=== PATIENT | male | born 1940 | race Caucasian/White ===

== ENCOUNTER 2023-03-14 11:21 | Inpatient (IN) | payer OTHER, SELFPAY ==
[2023-03-14] VITALS (22 sets, daily range): BP systolic 106–123; BP diastolic 63–74; PULSE 62–88; RESP 14–26; TEMP 35–36.6; O2SAT 92–99; BMI 22.1; BMI 21.4
--- NOTE | 2023-03-14 11:58 | ECG_ITS ---
The 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
--- NOTE | 2023-03-14 11:59 | XR_ITS ---
The [address] [address] Patient Name: JULIETTE MORROW MRN: [id number] date: 1940 Sex: M Assigned Patient Location: ER Current Patient Location: ER Accession/Order Number: [id number] Exam Date: 03/14/2023 12:17 Report Date: 03/14/2023 12:54 At the request of: TREMAYNE BECKHAM Procedure: XR acute abdomen series EXAMINATION: XR acute abdomen series HISTORY: abd pain, hx of obst COMPARISON: No relevant comparison available. FINDINGS: LUNGS: No infiltrate, pneumothorax, or pleural effusion. MEDIASTINUM: No abnormal widening. BOWEL GAS PATTERN: Moderate gaseous distention of small bowel loops which measure up to 6.4 cm. Air-fluid levels identified in multiple small bowel loops. There is a paucity of air in the sigmoid colon and rectum FREE AIR: None. CALCIFICATIONS: None significant. BONES: Moderate degenerative changes of the spine and hips OTHER: Negative. IMPRESSION: Clear lungs Findings suggesting a small bowel obstruction Electronically authenticated by: SHAHZAD DAURTE Date: 03/14/2023 12:54
--- NOTE | 2023-03-14 12:03 | ED_ITS ---
HPI - General Adult General Chief complaint: Nausea/Vomiting/Diarrhea Stated complaint: DEHYDRATION Time Seen by Provider: 03/14/23 11:57 Source: patient and family Mode of arrival: walk-in Limitations: no limitations History of Present Illness HPI narrative: Patient is a 83-year-old male who is presenting to the Emergency Room with chief complaint of one episode of vomiting yesterday but none today. Patient had some mild abdominal pain yesterday, none today. Patient has felt lightheaded, slightly dizzy, no vertigo. [facility]. Patient's daughter is at bedside, she is an Excellent Historian. A few years ago, patient spent 2 months in the [facility] secondary to bowel obstruction and eventual diagnosis of gastroparesis. Patient does not have an ostomy bag. Patient was admitted to [facility] earlier this year for dehydration, vomiting, and patient had NG tube placed. Patient has a history of bowel obstruction, chief concern from patient and daughter is the nausea, vomiting, diarrhea, pain, and concern for bulb suction. Patient's abdomen is currently very soft, no pain. Patient's been having loose stool the last 3 days. Having loose stool intermittently is normal for this patient. Patient is sometimes forgetful with history of dementia, patient's daughter fills in the blanks is a good historian. Patient currently has no headache, no neck pain. No fever or chills. Patient is asymptomatic at this time. Patient was brought into the daughter so that things WORSE like there were several years ago were patient has to be in the hospital for several days. Related Data Home Medications Medication Instructions Recorded Confirmed amiodarone 200 mg tablet 200 mg PO DAILY 03/14/23 03/14/23 atorvastatin 10 mg tablet 10 mg PO QPM 03/14/23 03/14/23 empagliflozin 25 mg tablet 12.5 mg PO DAILY 03/14/23 03/14/23 finasteride 5 mg tablet 5 mg PO DAILY 03/14/23 03/14/23 methazolamide 50 mg tablet 50 mg PO BID 03/14/23 03/14/23 metoprolol succinate 100 mg 100 mg PO DAILY 03/14/23 03/14/23 capsule sprinkle, ext. release 24 hr (Kapspargo Sprinkle) pantoprazole 40 mg tablet,delayed 40 mg PO DAILY 03/14/23 03/14/23 release sacubitril-valsartan PO BID 03/14/23 spironolactone 25 mg tablet 25 mg PO QAM 03/14/23 03/14/23 (Aldactone) tamsulosin 0.4 mg capsule 0.4 mg PO Q24H 03/14/23 03/14/23 warfarin 2.5 mg tablet 2.5 mg PO .COMPLEX 03/14/23 03/14/23 warfarin 5 mg tablet 5 mg PO .COMPLEX 03/14/23 03/14/23 Allergies Allergy/AdvReac Type Severity Reaction Status Date / Time ondansetron [From Zofran] AdvReac Mild Verified 03/14/23 11:44 Review of Systems ROS Narrative All systems are negative except as noted/marked. All systems reviewed and otherwise negative. [facility] Medical History (Updated 03/14/23 @ 15:54 by Kylah Trent) Surgical History (Updated 03/14/23 @ 15:54 by Kylah Trent) Social History Smoking status: Never smoker Gender Identity: male Exam Narrative Exam Narrative: Nurses note and vital signs reviewed and patient is not hypoxic. General: The patient appears well and in no apparent distress. Patient is resting comfortably on cart. Patient is not toxic, lethargic, or listless Skin: Warm, dry, no pallor noted. There is no rash noted. No petechiae, purpura. Head: Normocephalic, atraumatic Eye: Normal conjunctiva, no drainage, EOMI. PERRL, Chronic red eyes, some clear tearing, no signs acute infection, no colored drainage or pus. Ears, Nose, Mouth, and Throat: oral mucosa is Slightly dry. Nares patent. Mouth without vesicles. Cardiovascular: Regular Rate and Rhythm, no murmur, gallop, rub Respiratory: Patient is in no distress, no accessory muscle use, lungs are clear to auscultation, no wheezing, rales or rhonchi Back: non-tender, no CVA tenderness bilaterally to percussion. No CT LS midline pain GI: soft, no tenderness to palpation, no masses appreciated. No rebound, guarding, or rigidity noted. No flank pain bilateral, No distention. Bowel sounds ?4, no flank pain bilateral, abdomen soft, no rebound, rigidity, tympany. Musculoskeletal: Patient has full range of motion of all of the extremities, no motor, sensory, or focal neurological deficits Neurological: A&O x3, normal speech Psychiatric: Cooperative Constitutional Vital Signs - 24 hr 03/14/23 11:37 03/14/23 11:45 03/14/23 11:48 Temperature 95 F L Pulse Rate 71 Pulse Rate [Monitor] 88 Respiratory Rate 14 21 Blood Pressure 109/70 Blood Pressure [Right Arm] 117/74 Pulse Oximetry 98 98 98 Oxygen Delivery Method Room Air 03/14/23 11:48 03/14/23 12:02 03/14/23 12:10 Temperature Pulse Rate 70 80 77 Pulse Rate [Monitor] Respiratory Rate 17 17 26 H Blood Pressure Blood Pressure [Right Arm] Pulse Oximetry 99 98 Oxygen Delivery Method 03/14/23 12:39 03/14/23 12:40 03/14/23 12:50 Temperature Pulse Rate 83 76 80 Pulse Rate [Monitor] Respiratory Rate 14 20 22 Blood Pressure Blood Pressure [Right Arm] Pulse Oximetry Oxygen Delivery Method 03/14/23 13:00 03/14/23 13:10 03/14/23 13:20 Temperature Pulse Rate 73 74 82 Pulse Rate [Monitor] Respiratory Rate 24 20 20 Blood Pressure 116/74 Blood Pressure [Right Arm] Pulse Oximetry Oxygen Delivery Method 03/14/23 13:20 03/14/23 13:24 03/14/23 13:24 Temperature Pulse Rate 70 82 80 Pulse Rate [Monitor] Respiratory Rate 16 23 14 Blood Pressure 123/63 H 123/63 H Blood Pressure [Right Arm] Pulse Oximetry 99 99 Oxygen Delivery Method 03/14/23 13:24 03/14/23 14:16 03/14/23 14:18 Temperature 97.6 F Pulse Rate 72 77 Pulse Rate [Monitor] Respiratory Rate 19 20 Blood Pressure 123/63 H 111/68 Blood Pressure [Right Arm] Pulse Oximetry 99 99 Oxygen Delivery Method Course Vital Signs Vital signs: Vital Signs Temperature 95 F L 03/14/23 11:37 Pulse Rate 88 03/14/23 11:37 Respiratory Rate 14 03/14/23 11:37 Blood Pressure 117/74 03/14/23 11:37 Pulse Oximetry 98 03/14/23 11:37 Oxygen Delivery Method Room Air 03/14/23 11:37 Temperature 97.6 F 03/14/23 15:35 Pulse Rate 71 03/14/23 16:04 Respiratory Rate 18 03/14/23 15:35 Blood Pressure 106/70 03/14/23 15:35 Pulse Oximetry 92 L 03/14/23 15:35 Oxygen Delivery Method Room Air 03/14/23 15:35 Medical Decision Making MDM Narrative Medical decision making narrative: Patient had a sodium 128,, CO2 Level was 16. Patient's urine creatinine was 45 and 1.56. Patient's urine creatinine were elevated in October 2022 as well and a 45?50 range and in the 1.4?2.1 range. Patient does not normally have elevated BUN and creatinine. Patient has no kidney history. Patient has been completely symptomatically entire Emergency Room visit. Patient was given 1 L of IV fluid. Patient was given additional 500 mL of fluid and then 100 mL's per hour. Liam finch's daughter states the patient has been told that he's had congestive heart failure in the past, but this is when he was in the hospital for 2 months and developed congestive heart failure after his bowel obstruction surgery and gastroparesis diagnosis. However, patient has never been admitted to the hospital for congestive heart failure, he's never had any type or complications of congestive heart failure. Patient was given IV fluids. Patient was admitted to Dr. Mascorro. Patient's x- ray was read as possible small bowel obstruction, patient has been passing gas, has loose stool, patient has no signs or clinical symptoms at all of small bowel obstruction. Patient has had previous bowel obstruction, gastroparesis in the past. No acute findings that clinically correlated with patient's x-ray today. Patient has no problem with being admitted to the hospital overnight for IV fluids. Patient has signs of hyponatremia, metabolic acidosis, dehydration, and acute kidney injury. Patient has been drinking orange Gatorade well without difficulty. We have called the [facility], they agreed the patient may be admitted at [facility] and does not need to be transferred to the [facility]. Nava receptionist secretary was on the phone for over an hour talking to multiple different people in the [facility] and patient is permitted to be admitted to [facility] for treatment Lab Data Lab results reviewed: Yes I reviewed the patient's lab results Labs: Lab Results 03/14/23 Range/Units 12:00 WBC 7.7 (4.0-11.0) 10^3/uL RBC 4.85 (4.70-6.10) 10^6/uL Hgb 14.6 (14.0-18.0) g/dL Hct 46.7 (42.0-54.0) % MCV 96.3 H (80.0-94.0) fL MCH 30.1 (25.9-34.0) pg MCHC 31.3 (29.9-35.2) g/dL RDW 15.6 H (11.0-15.0) % Plt Count 166 (150-450) 10^3/uL MPV 10.4 (9.5-13.5) fL Neut % (Auto) 78.3 H (43.0-75.0) % Lymph % (Auto) 9.3 L (20.5-60.0) % [place] % (Auto) 9.1 (1.7-12.0) % Eos % (Auto) 0.8 L (0.9-7.0) % Baso % (Auto) 0.3 (0.2-2.0) % Neut # (Auto) 6.1 (1.4-6.5) 10^3/uL Lymph # (Auto) 0.7 L (1.2-3.8) 10^3/uL [place] # (Auto) 0.7 (0.3-0.8) 10^3/uL Eos # (Auto) 0.1 (0.0-0.7) 10^3/uL Baso # (Auto) 0.0 (0.0-0.1) 10^3/uL Abs Immat Gran (auto) 0.17 H (0.00-0.03) 10^3/uL Imm/Tot Granulo (auto) 2.2 H (0.0-0.5) % PT 65.4 H* (9.0-11.6) sec INR 6.88 H* Sodium 128 L (136-145) mmol/L Potassium 4.8 (3.5-5.1) mmol/L Chloride 100 (98-107) mmol/L Carbon Dioxide 16.2 L (21.0-32.0) mmol/L Anion Gap 16.6 BUN 47.0 H (7.0-18.0) mg/dL Creatinine 1.56 H (0.70-1.30) mg/dL Est GFR ( Amer) 52 L (>=60) Est GFR (Non-Af Amer) 43 L (>=60) BUN/Creatinine Ratio 30.1 Glucose 150 H (74-106) mg/dL Calcium 9.0 (8.5-10.1) mg/dL Magnesium 2.2 (1.8-2.4) mg/dL Total Bilirubin 0.9 (0.2-1.0) mg/dL AST 44 H (15-37) U/L ALT 18 (16-63) U/L Alkaline Phosphatase 118 H (46-116) U/L Troponin I High Sens 4.5 (4.0-76.1) pg/mL Total Protein 8.8 H (6.4-8.2) g/dL Albumin 3.5 (3.4-5.0) g/dL Globulin 5.3 g/dL Albumin/Globulin Ratio 0.7 Lipase 31.0 L (73.0-393.0) U/L ECG Data Attestation: I personally reviewed and interpreted this ECG as follows: Interpretation: EKG interpretation. Irregular irregular rhythm at 76 beats a minute. Left axis deviation. No acute ST elevation, no acute ectopy. QTC of 392. Patient has a history of atrial fibrillation. Discharge Plan Discharge Chief Complaint: Nausea/Vomiting/Diarrhea Clinical Impression: RORY (acute kidney injury), Diarrhea, Hyponatremia, Metabolic acidosis, Dehydration Patient Disposition: Admitted as Observation Time of Disposition Decision: 14:00 Condition: Fair Discharge Date/Time: 03/14/23 14:45
[2023-03-14 12:15] LABS: Basophils Percent Auto 0.3 % (0.2-2.0); Eosinophils Absolute Auto 0.1 10^3/uL (0.0-0.7); Eosinophils Percent Auto 0.8 % (0.9-7.0); Hematocrit 46.7 % (42.0-54.0); Hemoglobin 14.6 g/dL (14.0-18.0); Immature Granulocytes Abs Auto 0.17 10^3/uL (0.00-0.03); Immature Granulocytes Pct Auto 2.2 % (0.0-0.5); Lymphocytes Absolute Auto 0.7 10^3/uL (1.2-3.8); Lymphocytes Percent Auto 9.3 % (20.5-60.0); Mean Corpuscular HGB Conc 31.3 g/dL (29.9-35.2); Mean Corpuscular Hemoglobin 30.1 pg (25.9-34.0); Mean Corpuscular Volume 96.3 fL (80.0-94.0); Mean Platelet Volume 10.4 fL (9.5-13.5); Monocytes Absolute Auto 0.7 10^3/uL (0.3-0.8); Monocytes Percent Auto 9.1 % (1.7-12.0); Neutrophils Absolute Auto 6.1 10^3/uL (1.4-6.5); Neutrophils Percent Auto 78.3 % (43.0-75.0); Platelet Count 166 10^3/uL (150-450); Red Blood Count 4.85 10^6/uL (4.70-6.10); Red Cell Distribution Width 15.6 % (11.0-15.0); White Blood Count 7.7 10^3/uL (4.0-11.0)
[2023-03-14 12:28] LABS: Alanine Aminotransferase 18 U/L (16-63); Albumin Globulin Ratio 0.7; Albumin Level 3.5 g/dL (3.4-5.0); Alkaline Phosphatase 118 U/L (46-116); Anion Gap 16.6; Aspartate Amino Transferase 44 U/L (15-37); BUN Creatinine Ratio 30.1; Bilirubin Total 0.9 mg/dL (0.2-1.0); Carbon Dioxide 16.2 mmol/L (21.0-32.0); Chloride 100 mmol/L (98-107); Estimated GFR (African America 52 (>=60); Estimated GFR (Non-African Ame 43 (>=60); Globulin 5.3 g/dL; Glucose 150 mg/dL (74-106); Magnesium 2.2 mg/dL (1.8-2.4); Potassium 4.8 mmol/L (3.5-5.1); Sodium 128 mmol/L (136-145); Total Protein 8.8 g/dL (6.4-8.2)
[2023-03-14 12:30] LABS: Troponin I High Sensitivity 4.5 pg/mL (4.0-76.1)
[2023-03-14] MEDS: 0.9 % SODIUM CHLORIDE 1,000 ML 1000 ML IV (12:32)
[2023-03-14] MEDS: 0.9 % SODIUM CHLORIDE 1,000 ML 500 ML IV (13:22)
[2023-03-14 15:04] LABS: INR 6.88; Prothrombin Time 65.4 sec (9.0-11.6)
[2023-03-14] MEDS: LACTATED RINGER'S SOLUTION 1,000 ML 100 ML IV (16:17)
[2023-03-14] MEDS: ATORVASTATIN CALCIUM 10 MG TABLET PO (19:36)
[2023-03-14 20:36] LABS: Anion Gap 12.8; BUN Creatinine Ratio 25.6; Calcium 8.2 mg/dL (8.5-10.1); Carbon Dioxide 21.6 mmol/L (21.0-32.0); Chloride 105 mmol/L (98-107); Estimated GFR (African America 50 (>=60); Estimated GFR (Non-African Ame 42 (>=60); Glucose 142 mg/dL (74-106); Potassium 4.4 mmol/L (3.5-5.1); Sodium 135 mmol/L (136-145)
[2023-03-14 20:59] LABS: Glucometer 134 mg/dL (74-106)
[2023-03-15] VITALS (17 sets, daily range): BP systolic 116–130; BP diastolic 74–81; PULSE 58–96; RESP 15–20; TEMP 36.3–36.6; O2SAT 95–100
[2023-03-15] MEDS: LACTATED RINGER'S SOLUTION 1,000 ML 100 ML IV ×2 (02:15→11:30)
[2023-03-15 05:02] LABS: Basophils Percent Auto 0.2 % (0.2-2.0); Eosinophils Absolute Auto 0.1 10^3/uL (0.0-0.7); Eosinophils Percent Auto 2.1 % (0.9-7.0); Hematocrit 42.4 % (42.0-54.0); Hemoglobin 13.2 g/dL (14.0-18.0); Immature Granulocytes Abs Auto 0.02 10^3/uL (0.00-0.03); Immature Granulocytes Pct Auto 0.4 % (0.0-0.5); Lymphocytes Percent Auto 18.8 % (20.5-60.0); Mean Corpuscular HGB Conc 31.1 g/dL (29.9-35.2); Mean Corpuscular Hemoglobin 30.6 pg (25.9-34.0); Mean Corpuscular Volume 98.1 fL (80.0-94.0); Mean Platelet Volume 9.9 fL (9.5-13.5); Monocytes Absolute Auto 0.7 10^3/uL (0.3-0.8); Monocytes Percent Auto 14.1 % (1.7-12.0); Neutrophils Absolute Auto 3.3 10^3/uL (1.4-6.5); Neutrophils Percent Auto 64.4 % (43.0-75.0); Platelet Count 149 10^3/uL (150-450); Red Blood Count 4.32 10^6/uL (4.70-6.10); Red Cell Distribution Width 15.6 % (11.0-15.0); White Blood Count 5.1 10^3/uL (4.0-11.0)
[2023-03-15 05:19] LABS: Alanine Aminotransferase 14 U/L (16-63); Albumin Globulin Ratio 0.6; Albumin Level 2.9 g/dL (3.4-5.0); Alkaline Phosphatase 95 U/L (46-116); Anion Gap 12.8; Aspartate Amino Transferase 18 U/L (15-37); BUN Creatinine Ratio 26.2; Bilirubin Total 0.4 mg/dL (0.2-1.0); Calcium 8.2 mg/dL (8.5-10.1); Carbon Dioxide 20.3 mmol/L (21.0-32.0); Chloride 107 mmol/L (98-107); Estimated GFR (African America 58 (>=60); Estimated GFR (Non-African Ame 48 (>=60); Globulin 4.5 g/dL; Glucose 109 mg/dL (74-106); Potassium 4.1 mmol/L (3.5-5.1); Sodium 136 mmol/L (136-145); Total Protein 7.4 g/dL (6.4-8.2)
[2023-03-15 05:24] LABS: Prothrombin Time 83.1 sec (9.0-11.6)
[2023-03-15 05:25] LABS: INR >8.0
--- NOTE | 2023-03-15 08:08 | XR_ITS ---
The [address] [address] Patient Name: JULIETTE MORROW MRN: [id number] date: 1940 Sex: M Assigned Patient Location: MS Current Patient Location: MS Accession/Order Number: [id number] Exam Date: 03/15/2023 08:35 Report Date: 03/15/2023 14:41 At the request of: MARGOT EDWARDS Procedure: XR acute abdomen series EXAM: XR acute abdomen series HISTORY: Small bowel bowel obstruction COMPARISON: 03/14/2023. TECHNIQUE: Upright frontal chest. Upright and supine views of the abdomen. FINDINGS: Lungs are well-expanded and clear except for probable trace effusions. Normal heart size. No pneumothorax. No acute bony process. No free intraperitoneal air. Prominent gas and air fluid distention of the GI tract is again seen with significant worsening especially with a very large 11 cm loop over the left lower quadrant. Risk for perforation. IMPRESSION: Worsening severe small bowel obstruction with very large loop in the left lower quadrant which may be at risk for perforation although no definite free air seen at this time. Probable minimal effusions at the lung bases but otherwise clear chest. Electronically authenticated by: REBECCA ROMAN Date: 03/15/2023 14:41
[2023-03-15] MEDS: CANAGLIFLOZIN 100 MG TABLET 200 MG PO (08:16)
[2023-03-15] MEDS: AMIODARONE HCL 200 MG TABLET PO (08:16)
[2023-03-15] MEDS: FINASTERIDE 5 MG TABLET PO (08:16)
[2023-03-15] MEDS: TAMSULOSIN HCL 0.4 MG CAPSULE PO (08:17)
[2023-03-15] MEDS: METOPROLOL SUCCINATE 50 MG TAB.ER.24H 100 MG PO (08:17)
[2023-03-15] MEDS: PHYTONADIONE (VIT K1) 10 MG/ML AMPUL 5 MG PO (08:22)
[2023-03-15 11:21] LABS: Glucometer 116 mg/dL (74-106)
--- NOTE | 2023-03-15 12:37 | PM.HP ---
H&P: HPI History of Present Illness Chief complaint: DEHYDRATION Narrative: patient is an 83-year-old male with past medical history of atrial fibrillation on chronic Coumadin therapy, hypertension, benign prostatic hypertrophy, hyperlipidemia, type 2 diabetes who presented to the Emergency Room yesterday with nausea vomiting and some loose bowel movements. He did also been having some abdominal discomfort over the last couple days. He does have a history of small bowel obstructions of which landed him in the hospital in the past for an extended period of time and resulted in surgery. He reports this was many years ago. 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 He follows with a Coumadin clinic at the [facility] for frequent INR checks. He notes that it's been quite a while since his last INR. This morning he denies any current issues says that he's been eating well and denies any abdominal pain, fevers states that he is passing gas and no longer has any nausea or vomiting. His INR on morning labs was found to be 8.0 he denies any acute bleeding such as nosebleeds or any blood in his stool. Review of Systems ROS Narrative ROS: a complete review of systems were reviewed with patient and are positive as below or listed in History of Chief Complaint. General: no fever, chills, night sweats Head: no headache, trauma, visual changes, nausea or vomiting Skin: no reported rashes, itching or sores Eyes: no blurriness of vision Ears: no reported hearing loss, vertigo, earache, or tinnitus Throat: no sore throat, hoarseness, swelling of neck, or tongue pain Heart: no chest pain Lungs: no shortness of breath or cough GI: no diarrhea or vomiting/nausea Urinary: no urinary urgency, frequency or pain Neuro: no numbness or tingling HEM: no bleeding issues or bruising ENDO: no thyroid problems Psych: no anxiety or depression [facility] Medical History (Updated 03/15/23 @ 12:55 by Daisha Izquierdo DO) Surgical History Social History Smoking status: Never smoker Gender Identity: male Meds Home Medications and Allergies Home Medications Medication Instructions Recorded Confirmed Type amiodarone 200 mg tablet 200 mg PO DAILY 03/14/23 03/14/23 History atorvastatin 10 mg tablet 10 mg PO QPM 03/14/23 03/15/23 History empagliflozin 25 mg tablet 12.5 mg PO DAILY 03/14/23 03/14/23 History finasteride 5 mg tablet 5 mg PO DAILY 03/14/23 03/14/23 History methazolamide 50 mg tablet 50 mg PO BID 03/14/23 03/14/23 History metoprolol succinate 100 mg 100 mg PO DAILY 03/14/23 03/14/23 History capsule sprinkle, ext. release 24 hr (Kapspargo Sprinkle) pantoprazole 40 mg tablet,delayed 40 mg PO DAILY 03/14/23 03/14/23 History release sacubitril-valsartan PO BID 03/14/23 History spironolactone 25 mg tablet 25 mg PO QAM 03/14/23 03/14/23 History (Aldactone) tamsulosin 0.4 mg capsule 0.4 mg PO Q24H 03/14/23 03/14/23 History warfarin 2.5 mg tablet 2.5 mg PO .COMPLEX 03/14/23 03/15/23 History warfarin 5 mg tablet 5 mg PO .COMPLEX 03/14/23 03/15/23 History Allergies Allergy/AdvReac Type Severity Reaction Status Date / Time ondansetron [From Zofran] AdvReac Mild Verified 03/14/23 11:44 Exam Narrative Exam Narrative: General: Patient is alert, and oriented to person, place and time with normal affect, proper hygiene Skin: no visible rashes, or ulcers Head: atraumatic, acephalic Eyes: PERRLA, no nystagmus present, conjunctiva clear, no scleral icterus Ears: diminished gross auditory acuity Nose: symmetric, no discharge, no maxillary or frontal sinus tenderness Mouth/Throat: no erythema, exudate, or tonsillar enlargement, normal dentition Neck: no masses palpated, normal thyroid, no JVD or audible carotid bruits Heart: irregular rate and rhythm, no murmurs/rubs/gallops Lungs: no audible wheezes, crackles and normal breath sounds all lung mchugh Abdomen: Normal audible bowel sounds, no distension, No palpable masses, no organomegaly, no rebound/guarding/ or rigidity Lymph: no anterior/posterior cervical adenopathy Neuro: CN II-X grossly intact, normal sensation upper and lower extremities Constitutional Vital Signs - 24 hr 03/14/23 12:39 03/14/23 12:40 03/14/23 12:50 Temperature Pulse Rate 83 76 80 Pulse Rate [Monitor] Respiratory Rate 14 20 22 Blood Pressure Blood Pressure [Right Arm] Pulse Oximetry Oxygen Delivery Method 03/14/23 13:00 03/14/23 13:10 03/14/23 13:20 Temperature Pulse Rate 73 74 82 Pulse Rate [Monitor] Respiratory Rate 24 20 20 Blood Pressure 116/74 Blood Pressure [Right Arm] Pulse Oximetry Oxygen Delivery Method 03/14/23 13:20 03/14/23 13:24 03/14/23 13:24 Temperature Pulse Rate 70 82 80 Pulse Rate [Monitor] Respiratory Rate 16 23 14 Blood Pressure 123/63 H 123/63 H Blood Pressure [Right Arm] Pulse Oximetry 99 99 Oxygen Delivery Method 03/14/23 13:24 03/14/23 14:16 03/14/23 14:18 Temperature 97.6 F Pulse Rate 72 77 Pulse Rate [Monitor] Respiratory Rate 19 20 Blood Pressure 123/63 H 111/68 Blood Pressure [Right Arm] Pulse Oximetry 99 99 Oxygen Delivery Method 03/14/23 15:01 03/14/23 15:35 03/14/23 16:04 Temperature 97.6 F Pulse Rate 66 75 71 Pulse Rate [Monitor] Respiratory Rate 18 Blood Pressure Blood Pressure [Right Arm] 106/70 Pulse Oximetry 92 L Oxygen Delivery Method Room Air 03/14/23 22:00 03/15/23 06:00 03/14/23 19:20 Temperature 97.9 F 97.9 F Pulse Rate 65 76 Pulse Rate [Monitor] Respiratory Rate 14 15 Blood Pressure Blood Pressure [Right Arm] 106/71 116/74 Pulse Oximetry 96 97 96 Oxygen Delivery Method Room Air Room Air Room Air 03/14/23 19:58 03/14/23 20:00 03/14/23 20:00 Temperature Pulse Rate 62 75 Pulse Rate [Monitor] 63 Respiratory Rate Blood Pressure Blood Pressure [Right Arm] Pulse Oximetry Oxygen Delivery Method 03/14/23 22:06 03/15/23 00:02 03/15/23 02:00 Temperature Pulse Rate 70 60 59 L Pulse Rate [Monitor] Respiratory Rate Blood Pressure Blood Pressure [Right Arm] Pulse Oximetry Oxygen Delivery Method 03/15/23 04:00 03/15/23 06:08 03/15/23 04:16 Temperature Pulse Rate 74 78 Pulse Rate [Monitor] Respiratory Rate Blood Pressure Blood Pressure [Right Arm] Pulse Oximetry 95 Oxygen Delivery Method Room Air 03/15/23 07:54 03/15/23 11:11 03/15/23 11:52 Temperature Pulse Rate 58 L 67 Pulse Rate [Monitor] Respiratory Rate Blood Pressure Blood Pressure [Right Arm] Pulse Oximetry 100 Oxygen Delivery Method Room Air Results Labs Labs: Short CBC 03/15/23 Range/Units 04:24 WBC 5.1 (4.0-11.0) 10^3/uL Hgb 13.2 L (14.0-18.0) g/dL Hct 42.4 (42.0-54.0) % Plt Count 149 L (150-450) 10^3/uL BMP 03/14/23 03/15/23 20:02 04:24 Sodium 135 L 136 Potassium 4.4 4.1 Chloride 105 107 Carbon Dioxide 21.6 20.3 L BUN 41.0 H 37.0 H Creatinine 1.60 H 1.41 H Glucose 142 H 109 H Calcium 8.2 L 8.2 L Liver Function 03/15/23 Range/Units 04:24 Total Bilirubin 0.4 (0.2-1.0) mg/dL AST 18 (15-37) U/L ALT 14 L (16-63) U/L Alkaline Phosphatase 95 (46-116) U/L Albumin 2.9 L (3.4-5.0) g/dL Assessment and Plan Assessment and Plan (1) RORY (acute kidney injury): Assessment and Plan: continue with ivf hydration, improving with cr 1.41 this morning (2) Diarrhea: Assessment and Plan: resolved (3) Hyponatremia: Assessment and Plan: resolved with ivf, 128 up to 136 (4) Dehydration: Assessment and Plan: normal electrolytes today (5) A-fib: Assessment and Plan: rate controlled on the metoprolol, amiodarone, continue these, hold coumadin for INR 8.0, no active bleeding, monitor (6) Hypertension: Assessment and Plan: continue home meds other than diuretics, hold while dehyrated. (7) Elevated INR: Assessment and Plan: hold coumadin, given oral Vitamin K 5mg now, recheck INR in the morning, monitor for signs of active bleeding, patient denies any at this time. Plan hold lovenox or heparin, hold coumadin for INR 8 full code patient is observation status and is not expected to stay more than 2 midnights
--- NOTE | 2023-03-15 16:40 | CT_ITS ---
The [address] [address] Patient Name: JULIETTE MORROW MRN: [id number] date: 1940 Sex: M Assigned Patient Location: Current Patient Location: Accession/Order Number: [id number] Exam Date: 03/15/2023 19:12 Report Date: 03/15/2023 19:56 At the request of: MARGOT EDWARDS Procedure: CT abdomen pelvis wo con PROCEDURE: CT abdomen pelvis wo con DATE: 03/15/2023 6:12 PM CDT COMPARISONS: 11/19/2022 CLINICAL INDICATION: 83 years Male sbo with large dilated loop TECHNIQUE: Axial images were obtained. Coronal and sagittal reformations were created. Individualized dose optimization technique was used for the procedure performed. FINDINGS: The lower lung mchugh are clear. There are findings consistent with scattered hepatic cysts, stable. The spleen, pancreas and adrenals are within normal limits. The pancreas is atrophic. Some calcification of the right upper quadrant as on previous exam but I cannot state with certainty that this represents cholelithiasis. It may be in the proximal gallbladder. The biliary system is not dilated. There is no evidence of significant renal cysts. No renal masses are identified on these unenhanced images. There is no hydronephrosis. There is no evidence of nephrolithiasis. There is no ureterolithiasis. The urinary bladder shows no abnormalities on these unenhanced images. The prostate is moderately enlarged and stable. The aorta is normal in caliber. There is scattered mild aortic and iliac vascular calcification, stable. The inferior vena cava appears unremarkable. There is no evidence of abdominal or pelvic adenopathy. There is evidence of previous subtotal colectomy. The stomach is moderately distended with gas and secretions. Most of the duodenum is significantly distended by gas and secretions. The small bowel is diffusely and prominently distended by gas and secretions. There is an anastomosis between the sigmoid colon and the small bowel in the right lower abdomen and this does not appear to be causing obstruction, a similar finding to previous exam. There are remaining colon is decompressed but there is nothing to suggest that there is an area of high-grade obstruction causing this significant dilatation of the small bowel. There is no evidence of significant free fluid, no evidence of abnormal fluid collections and no evidence of free intraperitoneal air. As on previous exam there is moderate lumbar degenerative spondylosis. There is diffuse bone demineralization. There is multiple areas of decreased attenuation of the osseous structures of the lower thoracic and lumbar spine. This is of unclear etiology. Metastatic disease is not excluded based on these osseous findings. It's possible this pattern is related to bone demineralization however. IMPRESSION: The significant finding on this exam is that there is prominent distention of the stomach and the small bowel but there is no evidence of transition zone as a cause for small bowel obstruction. There is an anastomosis due to subtotal colectomy in the right lower abdomen but this anastomosis appears widely patent. Similar findings were seen on previous exam. The reason for the prominent distention of the stomach and small bowel is unclear at this time. It may represent present form of ileus. Some calcification of the right upper quadrant is of unclear etiology. It does not have a typical appearance of cholelithiasis The prostate is moderately enlarged and stable There is significant bone demineralization. The osseous structures show diffuse heterogeneity which raises some concern for metastatic disease although it's possible this is all related to bone demineralization similar findings were seen on 11/19/2022. Electronically authenticated by: BRUNO DOMINGUEZ Date: 03/15/2023 19:56
[2023-03-15 17:14] LABS: INR 3.86; Prothrombin Time 37.9 sec (9.0-11.6)
[2023-03-15 17:16] LABS: Glucometer 111 mg/dL (74-106)
--- NOTE | 2023-03-15 19:22 | PC.NURSE ---
patient had this iv in when nurse came on shift
[2023-03-15 21:35] LABS: Glucometer 111 mg/dL (74-106)
[2023-03-16] VITALS (17 sets, daily range): BP systolic 112–114; BP diastolic 76–77; PULSE 72–93; RESP 18–20; TEMP 36.4–36.6; O2SAT 95–96
[2023-03-16] MEDS: LACTATED RINGER'S SOLUTION 1,000 ML 100 ML IV ×3 (00:04→17:09)
[2023-03-16] MEDS: FINASTERIDE 5 MG TABLET PO (08:22)
[2023-03-16] MEDS: AMIODARONE HCL 200 MG TABLET PO (08:22)
[2023-03-16] MEDS: METOPROLOL SUCCINATE 50 MG TAB.ER.24H 100 MG PO (08:22)
[2023-03-16] MEDS: TAMSULOSIN HCL 0.4 MG CAPSULE PO (08:22)
[2023-03-16 09:03] LABS: Basophils Percent Auto 0.3 % (0.2-2.0); Eosinophils Absolute Auto 0.1 10^3/uL (0.0-0.7); Eosinophils Percent Auto 0.8 % (0.9-7.0); Hematocrit 41.7 % (42.0-54.0); Hemoglobin 13.6 g/dL (14.0-18.0); Immature Granulocytes Abs Auto 0.02 10^3/uL (0.00-0.03); Immature Granulocytes Pct Auto 0.3 % (0.0-0.5); Lymphocytes Absolute Auto 0.6 10^3/uL (1.2-3.8); Lymphocytes Percent Auto 10.2 % (20.5-60.0); Mean Corpuscular HGB Conc 32.6 g/dL (29.9-35.2); Mean Platelet Volume 10.2 fL (9.5-13.5); Monocytes Absolute Auto 0.7 10^3/uL (0.3-0.8); Monocytes Percent Auto 11.2 % (1.7-12.0); Neutrophils Absolute Auto 4.6 10^3/uL (1.4-6.5); Neutrophils Percent Auto 77.2 % (43.0-75.0); Platelet Count 135 10^3/uL (150-450); Red Blood Count 4.39 10^6/uL (4.70-6.10); Red Cell Distribution Width 15.5 % (11.0-15.0); White Blood Count 5.9 10^3/uL (4.0-11.0)
[2023-03-16 09:11] LABS: Estimated Average Glucose 105 mg/dL; Glycohemoglobin A1C 5.3 % (4.5-6.2)
[2023-03-16 09:12] LABS: Alanine Aminotransferase 14 U/L (16-63); Albumin Globulin Ratio 0.7; Alkaline Phosphatase 98 U/L (46-116); Anion Gap 13.5; Aspartate Amino Transferase 18 U/L (15-37); BUN Creatinine Ratio 18.3; Bilirubin Total 0.8 mg/dL (0.2-1.0); Calcium 8.5 mg/dL (8.5-10.1); Carbon Dioxide 22.7 mmol/L (21.0-32.0); Chloride 106 mmol/L (98-107); Estimated GFR (African America >60 (>=60); Estimated GFR (Non-African Ame 52 (>=60); Globulin 4.5 g/dL; Glucose 111 mg/dL (74-106); Potassium 4.2 mmol/L (3.5-5.1); Sodium 138 mmol/L (136-145); Total Protein 7.5 g/dL (6.4-8.2)
[2023-03-16 09:17] LABS: INR 1.62; Prothrombin Time 16.7 sec (9.0-11.6)
[2023-03-16] MEDS: METOCLOPRAMIDE HCL 10 MG TABLET 5 MG PO ×3 (09:32→22:51)
--- NOTE | 2023-03-16 13:38 | PM.PN ---
Progress Note: Subjective Subjective Interval history: patient is an 83-year-old male with past medical history of atrial fibrillation on chronic Coumadin therapy, hypertension, benign prostatic hypertrophy, hyperlipidemia, type 2 diabetes who presented to the Emergency Room yesterday with nausea vomiting and some loose bowel movements. He did also been having some abdominal discomfort over the last couple days. He does have a history of small bowel obstructions of which landed him in the hospital in the past for an extended period of time and resulted in surgery. He reports this was many years ago. He follows regularly with a primary doctor and a microbiology manager at the [place]. He follows with a Coumadin clinic at the [facility] for frequent INR checks. He notes that it's been quite a while since his last INR. This morning he denies any current issues says that he's been eating well and denies any abdominal pain, fevers states that he is passing gas and no longer has any nausea or vomiting. His INR on morning labs was found to be 8.0 he denies any acute bleeding such as nosebleeds or any blood in his stool. after vitamin K yesterday recheck INR 3, 4 attempts at placing NG yesterday/last night with no success, patient NPO per surg recs. Patient admits to bowel movements, loose, non-bloody, no nause or vomiting, walking the halls, no fever. passing gas. Exam Narrative Exam Narrative: General: Patient is alert, and oriented to person, place and time with normal affect, proper hygiene Skin: no visible rashes, or ulcers Head: atraumatic, acephalic Eyes: PERRLA, no nystagmus present, conjunctiva clear, no scleral icterus Heart: irregular rate and rhythm, no murmurs/rubs/gallops Lungs: no audible wheezes, crackles and normal breath sounds all lung mchugh Abdomen: Normal audible bowel sounds, no distension, No palpable masses, no organomegaly, no rebound/guarding/ or rigidity Lymph: no anterior/posterior cervical adenopathy Neuro: CN II-X grossly intact, normal sensation upper and lower extremities Constitutional Vital Signs - 24 hr 03/15/23 13:48 03/15/23 13:56 03/15/23 18:03 Temperature 97.5 F L Pulse Rate 76 67 78 Respiratory Rate 20 Blood Pressure [Left Arm] Blood Pressure [Right Arm] 117/74 Pulse Oximetry 97 Oxygen Delivery Method 03/15/23 19:25 03/15/23 19:53 03/15/23 21:28 Temperature 97.4 F L Pulse Rate 86 88 Respiratory Rate 20 Blood Pressure [Left Arm] Blood Pressure [Right Arm] 130/81 H Pulse Oximetry 98 95 Oxygen Delivery Method Room Air Room Air 03/15/23 21:54 03/15/23 23:53 03/16/23 01:49 Temperature Pulse Rate 96 H 74 92 H Respiratory Rate Blood Pressure [Left Arm] Blood Pressure [Right Arm] Pulse Oximetry Oxygen Delivery Method 03/16/23 03:56 03/16/23 04:05 03/16/23 05:43 Temperature 97.9 F Pulse Rate 81 93 H Respiratory Rate 20 Blood Pressure [Left Arm] 112/76 Blood Pressure [Right Arm] Pulse Oximetry 95 96 Oxygen Delivery Method Room Air 03/16/23 05:52 03/16/23 07:00 03/16/23 09:00 Temperature Pulse Rate 84 80 92 H Respiratory Rate Blood Pressure [Left Arm] Blood Pressure [Right Arm] Pulse Oximetry Oxygen Delivery Method 03/16/23 11:52 03/16/23 11:00 03/16/23 13:19 Temperature 97.6 F Pulse Rate 77 72 Respiratory Rate 20 Blood Pressure [Left Arm] 112/76 Blood Pressure [Right Arm] Pulse Oximetry 96 95 Oxygen Delivery Method Room Air Progress Note: Objective Labs Labs: Short CBC 03/16/23 Range/Units 08:40 WBC 5.9 (4.0-11.0) 10^3/uL Hgb 13.6 L (14.0-18.0) g/dL Hct 41.7 L (42.0-54.0) % Plt Count 135 L (150-450) 10^3/uL BMP 03/16/23 08:40 Sodium 138 Potassium 4.2 Chloride 106 Carbon Dioxide 22.7 BUN 24.0 H Creatinine 1.31 H Glucose 111 H Calcium 8.5 Liver Function 03/16/23 Range/Units 08:40 Total Bilirubin 0.8 (0.2-1.0) mg/dL AST 18 (15-37) U/L ALT 14 L (16-63) U/L Alkaline Phosphatase 98 (46-116) U/L Albumin 3.0 L (3.4-5.0) g/dL Progress Note: A&P Assessment and Plan (1) Ileus, unspecified: Assessment and Plan: CT scan showed dilated bowel with possible ileus; attempts were made for NG tube placement without success. NPO and bowel rest; started Reglan 5mg TID for prokinetic agent, consult Gen Surg for recommendations even though patient is not a good surgical candidate. symptoms managed (2) RORY (acute kidney injury): Assessment and Plan: continue IVF, improving (3) Diarrhea: Assessment and Plan: monitor electrolytes (4) Hyponatremia: Assessment and Plan: improving with IVF (5) Dehydration: (6) A-fib: Assessment and Plan: ate controlled on the metoprolol, amiodarone, continue these, hold coumadin for INR 8.0, no active bleeding, monitor, vitamin K given, INR 1.2 today, will start Lovenox and resume coumadin tomorrow. (7) Hypertension: Assessment and Plan: stable on home meds (8) Elevated INR: Plan hold lovenox or heparin, hold coumadin for INR 8, now normal range start coumadin tomorrow and Lovenox today full code due to worsening health status with ileus patient made inpatient status today and is expected to stay more than 2 midnights
[2023-03-16] MEDS: ENOXAPARIN SODIUM 40 MG/0.4 ML SYRINGE SUBQ (14:57)
[2023-03-16 16:48] LABS: Glucometer 99 mg/dL (74-106)
[2023-03-16] MEDS: CANAGLIFLOZIN 100 MG TABLET 200 MG PO (17:11)
[2023-03-16 20:30] LABS: Glucometer 77 mg/dL (74-106)
[2023-03-16] MEDS: ATORVASTATIN CALCIUM 10 MG TABLET PO (22:55)
[2023-03-17] VITALS (18 sets, daily range): BP systolic 103–128; BP diastolic 66–82; PULSE 64–92; RESP 16–20; TEMP 36.4–36.7; O2SAT 91–98; BMI 21.4
[2023-03-17] MEDS: LACTATED RINGER'S SOLUTION 1,000 ML 100 ML IV ×3 (03:15→23:37)
[2023-03-17 04:33] LABS: Basophils Percent Auto 0.5 % (0.2-2.0); Eosinophils Absolute Auto 0.1 10^3/uL (0.0-0.7); Eosinophils Percent Auto 1.6 % (0.9-7.0); Hematocrit 38.3 % (42.0-54.0); Hemoglobin 12.4 g/dL (14.0-18.0); Immature Granulocytes Abs Auto 0.01 10^3/uL (0.00-0.03); Immature Granulocytes Pct Auto 0.2 % (0.0-0.5); Lymphocytes Absolute Auto 0.7 10^3/uL (1.2-3.8); Lymphocytes Percent Auto 17.2 % (20.5-60.0); Mean Corpuscular HGB Conc 32.4 g/dL (29.9-35.2); Mean Corpuscular Hemoglobin 30.9 pg (25.9-34.0); Mean Corpuscular Volume 95.5 fL (80.0-94.0); Mean Platelet Volume 10.1 fL (9.5-13.5); Monocytes Absolute Auto 0.5 10^3/uL (0.3-0.8); Monocytes Percent Auto 12.6 % (1.7-12.0); Neutrophils Absolute Auto 2.9 10^3/uL (1.4-6.5); Neutrophils Percent Auto 67.9 % (43.0-75.0); Platelet Count 139 10^3/uL (150-450); Red Blood Count 4.01 10^6/uL (4.70-6.10); Red Cell Distribution Width 15.3 % (11.0-15.0); White Blood Count 4.3 10^3/uL (4.0-11.0)
[2023-03-17 04:52] LABS: Alanine Aminotransferase 14 U/L (16-63); Albumin Globulin Ratio 0.7; Albumin Level 2.8 g/dL (3.4-5.0); Alkaline Phosphatase 88 U/L (46-116); Anion Gap 14.3; Aspartate Amino Transferase 17 U/L (15-37); BUN Creatinine Ratio 18.5; Bilirubin Total 0.7 mg/dL (0.2-1.0); Calcium 8.2 mg/dL (8.5-10.1); Carbon Dioxide 19.5 mmol/L (21.0-32.0); Chloride 107 mmol/L (98-107); Estimated GFR (African America >60 (>=60); Estimated GFR (Non-African Ame 53 (>=60); Globulin 3.9 g/dL; Glucose 77 mg/dL (74-106); Potassium 3.8 mmol/L (3.5-5.1); Sodium 137 mmol/L (136-145); Total Protein 6.7 g/dL (6.4-8.2)
[2023-03-17 05:11] LABS: INR 1.31; Prothrombin Time 13.7 sec (9.0-11.6)
[2023-03-17] MEDS: METOCLOPRAMIDE HCL 10 MG TABLET 5 MG PO ×3 (05:49→22:03)
--- NOTE | 2023-03-17 07:00 | XR_ITS ---
[address] [address] Patient Name: JULIETTE MORROW MRN: [id number] date: 1940 Sex: M Assigned Patient Location: [place] Current Patient Location: [place] Accession/Order Number: [id number] Exam Date: 03/17/2023 05:10 Report Date: 03/17/2023 07:16 At the request of: MARGOT EDWARDS Procedure: XR acute abdomen series EXAMINATION: XR acute abdomen series HISTORY: ileus COMPARISON: 03/15/2023 FINDINGS: LUNGS: Mild bibasilar opacities, atelectasis is favored MEDIASTINUM: No abnormal widening. BOWEL GAS PATTERN: Non-obstructed. FREE AIR: Air beneath the right hemidiaphragm likely within the colon. Distention of small bowel loops up to 4.4 cm. Small amount of air is now identified in the left colon. No air in the rectum CALCIFICATIONS: None significant. BONES: No fracture or visible bone lesion. OTHER: Negative. IMPRESSION: Small amount of air in the colon suggests ileus versus partial obstruction Mild bibasilar infiltrates Electronically authenticated by: SHAHZAD DUARTE Date: 03/17/2023 07:16
[2023-03-17] MEDS: FINASTERIDE 5 MG TABLET PO (08:54)
[2023-03-17] MEDS: AMIODARONE HCL 200 MG TABLET PO (08:54)
[2023-03-17] MEDS: TAMSULOSIN HCL 0.4 MG CAPSULE PO (08:54)
[2023-03-17] MEDS: METOPROLOL SUCCINATE 50 MG TAB.ER.24H 100 MG PO (08:54)
[2023-03-17] MEDS: CANAGLIFLOZIN 100 MG TABLET 200 MG PO (08:57)
--- NOTE | 2023-03-17 10:45 | SWNOTE1 ---
SW met with pt to discuss dc needs. Pt's son was in room as well. Pt lives at home alone, his one son lives in [place]. Pt still drives, [facility] , and is independent. Pt does not have any HH coming in at this time and does not have any worries or concerns about discharge. SW to follow as needed.
--- NOTE | 2023-03-17 11:00 | CM.NOTE ---
Rounds made with Dr. Izquierdo, no discharge for today. Advance diet to clear liquids.
--- NOTE | 2023-03-17 11:11 | CM.NOTE ---
Important Message From Medicare discussed with pt, pt verbalizes understanding and signs paper. Original given to pt and copy placed on pt's chart.
[2023-03-17 11:34] LABS: Glucometer 97 mg/dL (74-106)
--- NOTE | 2023-03-17 11:42 | PM.PN ---
Progress Note: Subjective Subjective Interval history: patient is an 83-year-old male with past medical history of atrial fibrillation on chronic Coumadin therapy, hypertension, benign prostatic hypertrophy, hyperlipidemia, type 2 diabetes who presented to the Emergency Room yesterday with nausea vomiting and some loose bowel movements. He did also been having some abdominal discomfort over the last couple days. He does have a history of small bowel obstructions of which landed him in the hospital in the past for an extended period of time and resulted in surgery. He reports this was many years ago. He follows regularly with a primary doctor and a phlebotomy lab assistant at the [place]. He follows with a Coumadin clinic at the [facility] for frequent INR checks. He notes that it's been quite a while since his last INR. This morning he denies any current issues says that he's been eating well and denies any abdominal pain, fevers states that he is passing gas and no longer has any nausea or vomiting. His INR on morning labs was found to be 8.0 he denies any acute bleeding such as nosebleeds or any blood in his stool. after vitamin K yesterday recheck INR 3, 4 attempts at placing NG yesterday/last night with no success, patient NPO per surg recs. Patient admits to bowel movements, loose, non-bloody, no nause or vomiting, walking the halls, no fever. passing gas. NPO yesterday but still in good spirits, no pain, n/v/d today Exam Narrative Exam Narrative: General: Patient is alert, and oriented to person, place and time with normal affect, proper hygiene Skin: no visible rashes, or ulcers Head: atraumatic, acephalic Eyes: PERRLA, no nystagmus present, conjunctiva clear, no scleral icterus Heart: irregular rate and rhythm, no murmurs/rubs/gallops Lungs: no audible wheezes, crackles and normal breath sounds all lung mchugh Abdomen: Normal audible bowel sounds, no distension, No palpable masses, no organomegaly, no rebound/guarding/ or rigidity Lymph: no anterior/posterior cervical adenopathy Neuro: CN II-X grossly intact, normal sensation upper and lower extremities Constitutional Vital Signs - 24 hr 03/16/23 11:52 03/16/23 13:19 03/16/23 14:15 Temperature 97.6 F Pulse Rate 72 88 Respiratory Rate 20 Blood Pressure [Left Arm] 112/76 Pulse Oximetry 96 95 Oxygen Delivery Method Room Air 03/16/23 16:23 03/16/23 20:00 03/16/23 20:08 Temperature Pulse Rate 74 Respiratory Rate 20 Blood Pressure [Left Arm] Pulse Oximetry 96 Oxygen Delivery Method Room Air 03/16/23 20:00 03/16/23 18:00 03/16/23 21:22 Temperature 97.9 F Pulse Rate 75 78 83 Respiratory Rate 18 Blood Pressure [Left Arm] 114/77 Pulse Oximetry 96 Oxygen Delivery Method Room Air 03/16/23 22:00 03/17/23 00:00 03/17/23 02:00 Temperature Pulse Rate 88 64 76 Respiratory Rate Blood Pressure [Left Arm] Pulse Oximetry Oxygen Delivery Method 03/17/23 04:00 03/17/23 04:16 03/17/23 05:52 Temperature 97.5 F L Pulse Rate 79 86 Respiratory Rate 16 Blood Pressure [Left Arm] 103/70 Pulse Oximetry 93 L 95 Oxygen Delivery Method Room Air Room Air 03/17/23 06:00 03/17/23 07:49 03/17/23 09:58 Temperature Pulse Rate 80 73 73 Respiratory Rate Blood Pressure [Left Arm] Pulse Oximetry Oxygen Delivery Method Progress Note: Objective Labs Labs: Short CBC 03/17/23 Range/Units 04:12 WBC 4.3 (4.0-11.0) 10^3/uL Hgb 12.4 L (14.0-18.0) g/dL Hct 38.3 L (42.0-54.0) % Plt Count 139 L (150-450) 10^3/uL BMP 03/17/23 04:12 Sodium 137 Potassium 3.8 Chloride 107 Carbon Dioxide 19.5 L BUN 24.0 H Creatinine 1.30 Glucose 77 Calcium 8.2 L Liver Function 03/17/23 Range/Units 04:12 Total Bilirubin 0.7 (0.2-1.0) mg/dL AST 17 (15-37) U/L ALT 14 L (16-63) U/L Alkaline Phosphatase 88 (46-116) U/L Albumin 2.8 L (3.4-5.0) g/dL Progress Note: A&P Assessment and Plan (1) Ileus, unspecified: Assessment and Plan: CT scan showed dilated bowel with possible ileus; attempts were made for NG tube placement without success. NPO and bowel rest; started Reglan 5mg TID for prokinetic agent, consult Gen Surg for recommendations even though patient is not a good surgical candidate. symptoms managed, repeat X-ray today showed some improvement, advanced to clear liquids today (2) RORY (acute kidney injury): Assessment and Plan: continue IVF, improving; normal today, no signs of acute heart failure (3) Diarrhea: Assessment and Plan: normal electrolytes monitor (4) Hyponatremia: Assessment and Plan: improving with IVF (5) Dehydration: (6) A-fib: Assessment and Plan: rate controlled on the metoprolol, amiodarone, continue these, hold coumadin for INR 8.0, no active bleeding, monitor, vitamin K given, INR 1.3 today, cont Lovenox and resume coumadin today (7) Hypertension: Assessment and Plan: stable on home medications (8) Elevated INR: Assessment and Plan: resolved Plan hold lovenox or heparin, hold coumadin for INR 8, now normal range start coumadin tomorrow and Lovenox today full code due to worsening health status with ileus patient made inpatient status today and is expected to stay more than 2 midnights
[2023-03-17 16:14] LABS: Glucometer 98 mg/dL (74-106)
[2023-03-17] MEDS: WARFARIN SODIUM 2.5 MG TABLET PO (17:08)
[2023-03-17] MEDS: ATORVASTATIN CALCIUM 10 MG TABLET PO (21:52)
[2023-03-17 22:02] LABS: Glucometer 111 mg/dL (74-106)
[2023-03-18] VITALS (18 sets, daily range): BP systolic 96–127; BP diastolic 51–76; PULSE 68–89; RESP 18; TEMP 36.3–36.4; O2SAT 94–98
[2023-03-18 05:01] LABS: Basophils Percent Auto 0.2 % (0.2-2.0); Eosinophils Absolute Auto 0.1 10^3/uL (0.0-0.7); Eosinophils Percent Auto 1.5 % (0.9-7.0); Hematocrit 40.6 % (42.0-54.0); Hemoglobin 12.7 g/dL (14.0-18.0); Immature Granulocytes Abs Auto 0.02 10^3/uL (0.00-0.03); Immature Granulocytes Pct Auto 0.4 % (0.0-0.5); Lymphocytes Absolute Auto 0.6 10^3/uL (1.2-3.8); Mean Corpuscular HGB Conc 31.3 g/dL (29.9-35.2); Mean Corpuscular Hemoglobin 30.8 pg (25.9-34.0); Mean Corpuscular Volume 98.5 fL (80.0-94.0); Mean Platelet Volume 10.2 fL (9.5-13.5); Monocytes Absolute Auto 0.5 10^3/uL (0.3-0.8); Monocytes Percent Auto 10.9 % (1.7-12.0); Neutrophils Absolute Auto 3.3 10^3/uL (1.4-6.5); Platelet Count 136 10^3/uL (150-450); Red Blood Count 4.12 10^6/uL (4.70-6.10); Red Cell Distribution Width 15.3 % (11.0-15.0); White Blood Count 4.6 10^3/uL (4.0-11.0)
[2023-03-18 05:27] LABS: Alanine Aminotransferase 14 U/L (16-63); Albumin Globulin Ratio 0.7; Albumin Level 2.9 g/dL (3.4-5.0); Alkaline Phosphatase 85 U/L (46-116); Anion Gap 11.3; Aspartate Amino Transferase 17 U/L (15-37); BUN Creatinine Ratio 13.1; Bilirubin Total 0.6 mg/dL (0.2-1.0); Calcium 8.4 mg/dL (8.5-10.1); Carbon Dioxide 24.5 mmol/L (21.0-32.0); Chloride 106 mmol/L (98-107); Estimated GFR (African America >60 (>=60); Estimated GFR (Non-African Ame 53 (>=60); Glucose 96 mg/dL (74-106); Potassium 3.8 mmol/L (3.5-5.1); Sodium 138 mmol/L (136-145); Total Protein 6.9 g/dL (6.4-8.2)
[2023-03-18 05:36] LABS: INR 1.31; Prothrombin Time 13.7 sec (9.0-11.6)
[2023-03-18] MEDS: METOCLOPRAMIDE HCL 10 MG TABLET 5 MG PO (06:03)
--- NOTE | 2023-03-18 08:27 | XR_ITS ---
The [address] [address] Patient Name: JULIETTE MORROW MRN: [id number] date: 1940 Sex: M Assigned Patient Location: [place] Current Patient Location: [place] Accession/Order Number: [id number] Exam Date: 03/18/2023 09:20 Report Date: 03/18/2023 10:09 At the request of: MARGOT EDWARDS Procedure: XR acute abdomen series EXAMINATION: XR acute abdomen series HISTORY: ileus, resolving? COMPARISON: XR acute abdomen series 03/17/2023 FINDINGS: LUNGS: No infiltrate, pneumothorax, or pleural effusion. MEDIASTINUM: No abnormal widening. BOWEL GAS PATTERN: Relative paucity of gas within the small bowel. Air-filled distended loops of bowel within right upper quadrant suspected to be cecum and ascending colon, with ascending colon distended up to 5.7 cm. FREE AIR: None. CALCIFICATIONS: None significant. BONES: No fracture or visible bone lesion. OTHER: Negative. IMPRESSION: 1. Slightly greater distention of colon within right upper quadrant, and nonvisible predominantly fluid-filled small bowel. No improvement compared to prior study. Electronically authenticated by: DORIAN YODER Date: 03/18/2023 10:09
--- NOTE | 2023-03-18 08:28 | PM.PN ---
Progress Note: Subjective Subjective Interval history: patient is an 83-year-old male with past medical history of atrial fibrillation on chronic Coumadin therapy, hypertension, benign prostatic hypertrophy, hyperlipidemia, type 2 diabetes who presented to the Emergency Room yesterday with nausea vomiting and some loose bowel movements. He did also been having some abdominal discomfort over the last couple days. He does have a history of small bowel obstructions of which landed him in the hospital in the past for an extended period of time and resulted in surgery. He reports this was many years ago. 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 He follows with a Coumadin clinic at the [facility] for frequent INR checks. He notes that it's been quite a while since his last INR. This morning he denies any current issues says that he's been tolerating clears well and denies any abdominal pain, fevers states that he is passing gas and no longer has any nausea or vomiting. up ambulating by himself in the hallways joking with staff. Exam Narrative Exam Narrative: General: Patient is alert, and oriented to person, place and time with normal affect, proper hygiene Skin: no visible rashes, or ulcers Head: atraumatic, acephalic Eyes: PERRLA, no nystagmus present, conjunctiva clear, no scleral icterus Heart: irregular rate and rhythm, no murmurs/rubs/gallops Lungs: no audible wheezes, crackles and normal breath sounds all lung mchugh Abdomen: Normal audible bowel sounds, no distension, No palpable masses, no organomegaly, no rebound/guarding/ or rigidity Lymph: no anterior/posterior cervical adenopathy Neuro: CN II-X grossly intact, normal sensation upper and lower extremities Constitutional Vital Signs - 24 hr 03/17/23 09:58 03/17/23 12:00 03/17/23 13:34 Temperature 97.8 F Pulse Rate 73 92 H 87 Respiratory Rate 16 Blood Pressure [Left Arm] 104/66 Pulse Oximetry 97 Oxygen Delivery Method Room Air 03/17/23 13:56 03/17/23 15:53 03/17/23 18:00 Temperature Pulse Rate 75 73 74 Respiratory Rate Blood Pressure [Left Arm] Pulse Oximetry Oxygen Delivery Method 03/17/23 19:21 03/17/23 20:00 03/17/23 21:31 Temperature 97.9 F 98.0 F Pulse Rate 77 74 68 Respiratory Rate 16 20 Blood Pressure [Left Arm] 125/72 H 128/82 H Pulse Oximetry 91 L 94 L Oxygen Delivery Method Room Air Room Air 03/17/23 21:59 03/17/23 18:45 03/18/23 00:00 Temperature Pulse Rate 69 76 Respiratory Rate Blood Pressure [Left Arm] Pulse Oximetry 98 Oxygen Delivery Method Room Air 03/18/23 02:00 03/18/23 04:00 03/18/23 05:16 Temperature 97.4 F L Pulse Rate 75 84 88 Respiratory Rate 18 Blood Pressure [Left Arm] 96/51 L Pulse Oximetry 94 L Oxygen Delivery Method Room Air 03/18/23 06:00 03/18/23 08:07 Temperature Pulse Rate 75 71 Respiratory Rate Blood Pressure [Left Arm] Pulse Oximetry Oxygen Delivery Method Progress Note: Objective Labs Labs: Short CBC 03/18/23 Range/Units 04:21 WBC 4.6 (4.0-11.0) 10^3/uL Hgb 12.7 L (14.0-18.0) g/dL Hct 40.6 L (42.0-54.0) % Plt Count 136 L (150-450) 10^3/uL BMP 03/18/23 04:21 Sodium 138 Potassium 3.8 Chloride 106 Carbon Dioxide 24.5 BUN 17.0 Creatinine 1.30 Glucose 96 Calcium 8.4 L Liver Function 03/18/23 Range/Units 04:21 Total Bilirubin 0.6 (0.2-1.0) mg/dL AST 17 (15-37) U/L ALT 14 L (16-63) U/L Alkaline Phosphatase 85 (46-116) U/L Albumin 2.9 L (3.4-5.0) g/dL Progress Note: A&P Assessment and Plan (1) Ileus following gastrointestinal surgery: Assessment and Plan: CT scan showed dilated bowel with possible ileus; attempts were made for NG tube placement without success. NPO and bowel rest; started Reglan 5mg TID for prokinetic agent, consult Gen Surg for recommendations even though patient is not a good surgical candidate. symptoms managed, repeat X-ray today showed no improvement, advanced to clear liquids, will reach back out to surgery and see if they have any additions (2) A-fib: Assessment and Plan: rate controlled on the metoprolol, amiodarone, continue these, hold coumadin for INR 8.0 this weekend, no active bleeding, monitor, vitamin K given; INR 1.3 today, cont Lovenox and resume home coumadin (3) Hypertension: Assessment and Plan: stable on home medications (4) Gastroparesis: Assessment and Plan: continue reglan but increase to see if this will help problem #1 (5) Glaucoma: Assessment and Plan: continue home meds Plan continue lovenox until coumadin therapuetic patient inpatient status
[2023-03-18] MEDS: AMIODARONE HCL 200 MG TABLET PO (08:44)
[2023-03-18] MEDS: TAMSULOSIN HCL 0.4 MG CAPSULE PO (08:45)
[2023-03-18] MEDS: METOPROLOL SUCCINATE 50 MG TAB.ER.24H 100 MG PO (08:45)
[2023-03-18] MEDS: CANAGLIFLOZIN 100 MG TABLET 200 MG PO (08:45)
[2023-03-18] MEDS: FINASTERIDE 5 MG TABLET PO (08:45)
[2023-03-18 11:16] LABS: Glucometer 171 mg/dL (74-106)
--- NOTE | 2023-03-18 12:36 | CM.NOTE ---
Rounds made with Dr. Izquierdo. No plan for discharge today.
[2023-03-18] MEDS: ENOXAPARIN SODIUM 40 MG/0.4 ML SYRINGE SUBQ (15:39)
[2023-03-18] MEDS: METOCLOPRAMIDE HCL 10 MG TABLET PO ×2 (15:39→21:34)
[2023-03-18 16:04] LABS: Glucometer 112 mg/dL (74-106)
[2023-03-18] MEDS: WARFARIN SODIUM 5 MG TABLET PO (17:23)
[2023-03-18 19:45] LABS: Glucometer 104 mg/dL (74-106)
[2023-03-18] MEDS: ATORVASTATIN CALCIUM 10 MG TABLET PO (21:34)
[2023-03-19] VITALS (18 sets, daily range): BP systolic 118–124; BP diastolic 62–80; PULSE 69–104; RESP 16–18; TEMP 36.7–36.8; O2SAT 93–97
[2023-03-19 04:53] LABS: Basophils Percent Auto 0.4 % (0.2-2.0); Eosinophils Absolute Auto 0.1 10^3/uL (0.0-0.7); Eosinophils Percent Auto 1.9 % (0.9-7.0); Hematocrit 38.4 % (42.0-54.0); Hemoglobin 12.1 g/dL (14.0-18.0); Immature Granulocytes Abs Auto 0.02 10^3/uL (0.00-0.03); Immature Granulocytes Pct Auto 0.4 % (0.0-0.5); Lymphocytes Absolute Auto 0.8 10^3/uL (1.2-3.8); Lymphocytes Percent Auto 16.5 % (20.5-60.0); Mean Corpuscular HGB Conc 31.5 g/dL (29.9-35.2); Mean Corpuscular Hemoglobin 30.3 pg (25.9-34.0); Mean Corpuscular Volume 96.2 fL (80.0-94.0); Monocytes Absolute Auto 0.6 10^3/uL (0.3-0.8); Neutrophils Absolute Auto 3.2 10^3/uL (1.4-6.5); Neutrophils Percent Auto 68.8 % (43.0-75.0); Platelet Count 133 10^3/uL (150-450); Red Blood Count 3.99 10^6/uL (4.70-6.10); Red Cell Distribution Width 15.1 % (11.0-15.0); White Blood Count 4.7 10^3/uL (4.0-11.0)
[2023-03-19] MEDS: METOCLOPRAMIDE HCL 10 MG TABLET PO ×3 (05:09→19:52)
[2023-03-19 05:16] LABS: Alanine Aminotransferase 13 U/L (16-63); Albumin Globulin Ratio 0.7; Albumin Level 2.8 g/dL (3.4-5.0); Alkaline Phosphatase 81 U/L (46-116); Anion Gap 10.2; Aspartate Amino Transferase 16 U/L (15-37); BUN Creatinine Ratio 8.1; Bilirubin Total 0.5 mg/dL (0.2-1.0); Calcium 8.3 mg/dL (8.5-10.1); Carbon Dioxide 24.2 mmol/L (21.0-32.0); Chloride 106 mmol/L (98-107); Estimated GFR (African America >60 (>=60); Estimated GFR (Non-African Ame 56 (>=60); Globulin 3.9 g/dL; Glucose 101 mg/dL (74-106); Potassium 3.4 mmol/L (3.5-5.1); Prothrombin Time 16.5 sec (9.0-11.6); Sodium 137 mmol/L (136-145); Total Protein 6.7 g/dL (6.4-8.2)
[2023-03-19] MEDS: FINASTERIDE 5 MG TABLET PO (09:20)
[2023-03-19] MEDS: METOPROLOL SUCCINATE 50 MG TAB.ER.24H 100 MG PO (09:20)
[2023-03-19] MEDS: AMIODARONE HCL 200 MG TABLET PO (09:20)
[2023-03-19] MEDS: TAMSULOSIN HCL 0.4 MG CAPSULE PO (09:20)
[2023-03-19] MEDS: CANAGLIFLOZIN 100 MG TABLET 200 MG PO (09:20)
--- NOTE | 2023-03-19 10:07 | CM.NOTE ---
Dr. Izquierdo discussing plan of care with son at bedside. Potential discharge tomorrow. Discussed possible medication changes and [facility] with [facility]. Pt. up ambulating in halls without difficulty. No anticipated discharge needs identified during hospital stay at this point. Will continue to monitor.
[2023-03-19 11:22] LABS: Glucometer 166 mg/dL (74-106)
--- NOTE | 2023-03-19 13:24 | PM.PN ---
Progress Note: Subjective Subjective Interval history: patient is an 83-year-old male with past medical history of atrial fibrillation on chronic Coumadin therapy, hypertension, benign prostatic hypertrophy, hyperlipidemia, type 2 diabetes who presented to the Emergency Room yesterday with nausea vomiting and some loose bowel movements. He did also been having some abdominal discomfort over the last couple days. He does have a history of small bowel obstructions of which landed him in the hospital in the past for an extended period of time and resulted in surgery. He reports this was many years ago. 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 He follows with a Coumadin clinic at the [facility] for frequent INR checks. He notes that it's been quite a while since his last INR. This morning he denies any current issues says that he's been tolerating clears well and denies any abdominal pain, fevers states that he is passing gas and no longer has any nausea or vomiting. up ambulating by himself in the hallways joking with staff. patient has been tolerating clear liquid diet and we discussed advancing him to full liquid diet today. He continues to pass gas have loose bowel movements at times and denies any nausea or vomiting. Exam Narrative Exam Narrative: General: Patient is alert, and oriented to person, place and time with normal affect, proper hygiene Skin: no visible rashes, or ulcers Head: atraumatic, acephalic Eyes: PERRLA, no nystagmus present, conjunctiva clear, no scleral icterus Heart: irregular rate and rhythm, no murmurs/rubs/gallops Lungs: no audible wheezes, crackles and normal breath sounds all lung mchugh Abdomen: Normal audible bowel sounds, no distension, No palpable masses, no organomegaly, no rebound/guarding/ or rigidity Lymph: no anterior/posterior cervical adenopathy Neuro: CN II-X grossly intact, normal sensation upper and lower extremities Constitutional Vital Signs - 24 hr 03/18/23 13:52 03/18/23 14:00 03/18/23 15:55 Temperature 97.6 F Pulse Rate 72 86 68 Pulse Rate [Monitor] Respiratory Rate 18 Blood Pressure [Left Arm] 100/61 Pulse Oximetry 97 Oxygen Delivery Method Room Air 03/18/23 18:08 03/18/23 20:00 03/18/23 20:16 Temperature Pulse Rate 73 78 Pulse Rate [Monitor] 89 Respiratory Rate 18 Blood Pressure [Left Arm] Pulse Oximetry Oxygen Delivery Method 03/18/23 20:18 03/18/23 21:29 03/18/23 22:24 Temperature 97.6 F Pulse Rate 87 78 Pulse Rate [Monitor] Respiratory Rate 18 Blood Pressure [Left Arm] 127/76 H Pulse Oximetry 98 97 Oxygen Delivery Method Room Air Room Air 03/19/23 00:00 03/19/23 02:00 03/19/23 04:00 Temperature Pulse Rate 69 77 86 Pulse Rate [Monitor] Respiratory Rate Blood Pressure [Left Arm] Pulse Oximetry Oxygen Delivery Method 03/19/23 05:05 03/19/23 06:00 03/19/23 08:03 Temperature 98.3 F Pulse Rate 83 71 75 Pulse Rate [Monitor] Respiratory Rate 18 Blood Pressure [Left Arm] 121/67 H Pulse Oximetry 93 L Oxygen Delivery Method Room Air 03/19/23 09:56 03/19/23 11:53 03/19/23 11:59 Temperature Pulse Rate 74 71 Pulse Rate [Monitor] Respiratory Rate Blood Pressure [Left Arm] Pulse Oximetry 97 Oxygen Delivery Method Room Air 03/19/23 13:16 Temperature 98.0 F Pulse Rate 78 Pulse Rate [Monitor] Respiratory Rate 18 Blood Pressure [Left Arm] 124/80 H Pulse Oximetry 96 Oxygen Delivery Method Room Air Progress Note: Objective Labs Labs: Short CBC 03/19/23 Range/Units 04:05 WBC 4.7 (4.0-11.0) 10^3/uL Hgb 12.1 L (14.0-18.0) g/dL Hct 38.4 L (42.0-54.0) % Plt Count 133 L (150-450) 10^3/uL BMP 03/19/23 04:05 Sodium 137 Potassium 3.4 L Chloride 106 Carbon Dioxide 24.2 BUN 10.0 Creatinine 1.23 Glucose 101 Calcium 8.3 L Liver Function 03/19/23 Range/Units 04:05 Total Bilirubin 0.5 (0.2-1.0) mg/dL AST 16 (15-37) U/L ALT 13 L (16-63) U/L Alkaline Phosphatase 81 (46-116) U/L Albumin 2.8 L (3.4-5.0) g/dL Progress Note: A&P Assessment and Plan (1) Ileus following gastrointestinal surgery: Assessment and Plan: CT scan showed dilated bowel with possible ileus; attempts were made for NG tube placement without success. NPO and bowel rest; started Reglan 5mg TID for prokinetic agent, consult Gen Surg for recommendations even though patient is not a good surgical candidate. symptoms managed, repeat X-ray today showed no improvement, advanced to clear liquids, now full liquids today, i increased reglan to 10mg TID; we discussed probable discharge tomorrow with close GI follow up. (2) A-fib: Assessment and Plan: rate controlled on the metoprolol, amiodarone, continue these, hold coumadin for INR 8.0 this weekend, no active bleeding, monitor, vitamin K given; ?INR 1.6 today, cont Lovenox and resume home coumadin, will need close inr follow as outpatient next week (3) Hypertension: Assessment and Plan: stable on home medications (4) Gastroparesis: Assessment and Plan: continue reglan but increase to see if this will help problem #1 (5) Glaucoma: Assessment and Plan: continue home meds Plan continue lovenox until coumadin therapuetic patient? inpatient status
[2023-03-19 17:12] LABS: Glucometer 141 mg/dL (74-106)
[2023-03-19] MEDS: ATORVASTATIN CALCIUM 10 MG TABLET PO (19:52)
[2023-03-19 21:12] LABS: Glucometer 104 mg/dL (74-106)
[2023-03-20] VITALS (10 sets, daily range): BP systolic 99–111; BP diastolic 65–76; PULSE 73–94; RESP 16–18; TEMP 36.4–36.8; O2SAT 95–96
[2023-03-20 04:57] LABS: Basophils Percent Auto 0.2 % (0.2-2.0); Eosinophils Absolute Auto 0.1 10^3/uL (0.0-0.7); Eosinophils Percent Auto 1.8 % (0.9-7.0); Hematocrit 38.9 % (42.0-54.0); Hemoglobin 12.5 g/dL (14.0-18.0); Immature Granulocytes Abs Auto 0.02 10^3/uL (0.00-0.03); Immature Granulocytes Pct Auto 0.4 % (0.0-0.5); Lymphocytes Absolute Auto 0.7 10^3/uL (1.2-3.8); Lymphocytes Percent Auto 13.8 % (20.5-60.0); Mean Corpuscular HGB Conc 32.1 g/dL (29.9-35.2); Mean Corpuscular Hemoglobin 30.5 pg (25.9-34.0); Mean Corpuscular Volume 94.9 fL (80.0-94.0); Mean Platelet Volume 10.3 fL (9.5-13.5); Monocytes Absolute Auto 0.6 10^3/uL (0.3-0.8); Monocytes Percent Auto 11.3 % (1.7-12.0); Neutrophils Absolute Auto 3.6 10^3/uL (1.4-6.5); Neutrophils Percent Auto 72.5 % (43.0-75.0); Platelet Count 137 10^3/uL (150-450); Red Cell Distribution Width 15.2 % (11.0-15.0); White Blood Count 4.9 10^3/uL (4.0-11.0)
[2023-03-20 05:15] LABS: INR 2.17
[2023-03-20 05:32] LABS: Alanine Aminotransferase 13 U/L (16-63); Albumin Globulin Ratio 0.7; Albumin Level 2.9 g/dL (3.4-5.0); Alkaline Phosphatase 87 U/L (46-116); Anion Gap 11.8; Aspartate Amino Transferase 19 U/L (15-37); BUN Creatinine Ratio 7.8; Bilirubin Total 0.5 mg/dL (0.2-1.0); Calcium 8.3 mg/dL (8.5-10.1); Carbon Dioxide 22.6 mmol/L (21.0-32.0); Chloride 105 mmol/L (98-107); Estimated GFR (African America >60 (>=60); Estimated GFR (Non-African Ame >60 (>=60); Glucose 105 mg/dL (74-106); Potassium 3.4 mmol/L (3.5-5.1); Sodium 136 mmol/L (136-145); Total Protein 6.9 g/dL (6.4-8.2)
[2023-03-20] MEDS: METOCLOPRAMIDE HCL 10 MG TABLET PO ×2 (05:46→13:55)
[2023-03-20] MEDS: METOPROLOL SUCCINATE 50 MG TAB.ER.24H 100 MG PO (08:37)
[2023-03-20] MEDS: FINASTERIDE 5 MG TABLET PO (08:37)
[2023-03-20] MEDS: TAMSULOSIN HCL 0.4 MG CAPSULE PO (08:38)
[2023-03-20] MEDS: CANAGLIFLOZIN 100 MG TABLET 200 MG PO (08:38)
[2023-03-20] MEDS: AMIODARONE HCL 200 MG TABLET PO (08:38)
--- NOTE | 2023-03-20 10:50 | CM.NOTE ---
Rounds made with shelton Alegria for discharge to home today. Pt has no home discharge needs.
--- NOTE | 2023-03-20 11:00 | P.DS_ITS ---
DS: Providers Provider Date of admission: 03/16/23 13:46 Primary care physician: Non-Staff Physician, Admitting clinician: Shaikh Clary Consults: 03/14/23 14:15 Occupational Therapy Eval and Treat Routine Physical Therapy Eval and Treat Routine 03/15/23 16:41 Consult to General Surgeon Routine Consulting Provider: Francisco Arthur 03/16/23 16:26 Physical Therapy Eval and Treat Routine 03/20/23 11:00 Consult to Dietitian Routine Reason For Exam: Attending physician on discharge: Daisha Izquierdo DS: Diagnosis Discharge Diagnosis (1) Ileus following gastrointestinal surgery: Assessment and plan: CT scan showed dilated bowel with possible ileus; attempts were made for NG tube placement without success. NPO and bowel rest; started Reglan 5mg TID for prokinetic agent, consult Gen Surg for recommendations even though patient is not a good surgical candidate. symptoms managed, repeat X-rays showed little to no improvement, advanced to clear liquids, now full liquids, cannot tolerate ensure, i increased reglan to 10mg TID; we discussed discharge today with close GI follow up, the time of discharge patient has been up walking the halls by himself. He denies any nausea vomiting diarrhea or pain. He agrees that he can do the same thing at home which is take the Reglan and watch his diet. Also got a dietitian consult today so patient will know what he can and can't eat. (2) A-fib: Assessment and plan: rate controlled on the metoprolol, amiodarone, continue these, hold coumadin for INR 8.0 this weekend, no active bleeding, monitor, vitamin K given; ?INR 2.17 today, stop Lovenox and continue home coumadin, will need close inr follow up as outpatient next week (3) Hypertension: Assessment and plan: patient will resume home medications blood pressure has been stable (4) Gastroparesis: Assessment and plan: most likely culprit leading to his chronic ileus. Will remain on outpatient Reglan 10 mg 3 times a day until further evaluation by his gastrointestinal doctor. (5) Glaucoma: Assessment and plan: will resume home medications no changes Plan INR is therapeutic has close follow-ups as listed below the only change and his home medications is the additionof Reglan 10 mg 3 times a day DS: Summary Status at Discharge Functional status at discharge: independent ambulation Time Spent with Patient Time attestation: Total time spent providing and/or coordinating discharge services: Exam Narrative Exam Narrative: General: Patient is alert, and oriented to person, place and time with normal affect, proper hygiene Skin: no visible rashes, or ulcers Head: atraumatic, acephalic Eyes: PERRLA, no nystagmus present, conjunctiva clear, no scleral icterus Heart: irregular rate and rhythm, no murmurs/rubs/gallops Lungs: no audible wheezes, crackles and normal breath sounds all lung mchugh Abdomen: Normal audible bowel sounds, no distension, No palpable masses, no organomegaly, no rebound/guarding/ or rigidity Lymph: no anterior/posterior cervical adenopathy Neuro: CN II-X grossly intact, normal sensation upper and lower extremities Constitutional Vital Signs - 24 hr 03/19/23 11:53 03/19/23 11:59 03/19/23 13:16 Temperature 98.0 F Pulse Rate 71 78 Respiratory Rate 18 Blood Pressure [Left Arm] 124/80 H Pulse Oximetry 97 96 Oxygen Delivery Method Room Air Room Air Fraction of Inspired Oxygen 03/19/23 14:06 03/19/23 15:54 03/19/23 18:23 Temperature Pulse Rate 85 104 H 80 Respiratory Rate Blood Pressure [Left Arm] Pulse Oximetry Oxygen Delivery Method Fraction of Inspired Oxygen 03/19/23 22:00 03/19/23 19:35 03/19/23 20:32 Temperature 98.2 F Pulse Rate 80 81 Respiratory Rate 16 Blood Pressure [Left Arm] 118/62 Pulse Oximetry 94 L 96 Oxygen Delivery Method Room Air Room Air Fraction of Inspired Oxygen 03/19/23 21:38 03/19/23 23:29 03/20/23 01:23 Temperature Pulse Rate 70 71 75 Respiratory Rate Blood Pressure [Left Arm] Pulse Oximetry Oxygen Delivery Method Fraction of Inspired Oxygen 03/20/23 03:23 03/20/23 04:19 03/20/23 05:41 Temperature 98.3 F Pulse Rate 86 84 Respiratory Rate 16 Blood Pressure [Left Arm] 99/65 Pulse Oximetry 95 95 Oxygen Delivery Method Room Air Room Air Fraction of Inspired Oxygen 03/20/23 05:49 03/20/23 08:00 03/20/23 09:48 Temperature Pulse Rate 73 79 Respiratory Rate Blood Pressure [Left Arm] Pulse Oximetry Oxygen Delivery Method Room Air Fraction of Inspired Oxygen 95 03/20/23 10:06 Temperature Pulse Rate 82 Respiratory Rate Blood Pressure [Left Arm] Pulse Oximetry Oxygen Delivery Method Fraction of Inspired Oxygen DS: Data Data Completed and Pending Labs on day of discharge: Labs from last 24 hours 03/20/23 03/19/23 03/19/23 04:20 21:10 17:11 WBC 4.9 RBC 4.10 L Hgb 12.5 L Hct 38.9 L MCV 94.9 H MCH 30.5 MCHC 32.1 RDW 15.2 H Plt Count 137 L MPV 10.3 Neut % (Auto) 72.5 Lymph % (Auto) 13.8 L Stafford % (Auto) 11.3 Eos % (Auto) 1.8 Baso % (Auto) 0.2 Neut # (Auto) 3.6 Lymph # (Auto) 0.7 L Stafford # (Auto) 0.6 Eos # (Auto) 0.1 Baso # (Auto) 0.0 Abs Immat Gran (auto) 0.02 Imm/Tot Granulo (auto) 0.4 PT 22.0 H INR 2.17 Sodium 136 Potassium 3.4 L Chloride 105 Carbon Dioxide 22.6 Anion Gap 11.8 BUN 9.0 Creatinine 1.16 Est GFR ( Amer) >60 Est GFR (Non-Af Amer) >60 BUN/Creatinine Ratio 7.8 Glucose 105 Calcium 8.3 L Total Bilirubin 0.5 AST 19 ALT 13 L Alkaline Phosphatase 87 Total Protein 6.9 Albumin 2.9 L Globulin 4.0 Albumin/Globulin Ratio 0.7 POC Glucose 104 141 H 03/19/23 11:22 WBC RBC Hgb Hct MCV MCH MCHC RDW Plt Count MPV Neut % (Auto) Lymph % (Auto) Stafford % (Auto) Eos % (Auto) Baso % (Auto) Neut # (Auto) Lymph # (Auto) [place] # (Auto) Eos # (Auto) Baso # (Auto) Abs Immat Gran (auto) Imm/Tot Granulo (auto) PT INR Sodium Potassium Chloride Carbon Dioxide Anion Gap BUN Creatinine Est GFR ( Amer) Est GFR (Non-Af Amer) BUN/Creatinine Ratio Glucose Calcium Total Bilirubin AST ALT Alkaline Phosphatase Total Protein Albumin Globulin Albumin/Globulin Ratio POC Glucose 166 H Discharge Plan Discharge Disposition: Home, Self-Care Condition: Fair Discharge Medications: New metoclopramide HCl 10 mg Tablet 10 mg PO TID 30 Days Qty: 90 0RF Continued pantoprazole 40 mg tablet,delayed release (DR/EC) 40 mg PO DAILY tamsulosin 0.4 mg capsule 0.4 mg PO Q24H finasteride 5 mg tablet 5 mg PO DAILY empagliflozin 25 mg tablet 12.5 mg PO DAILY atorvastatin 10 mg tablet 10 mg PO QPM Kapspargo Sprinkle 100 mg capsule,sprinkle,ER 24hr 100 mg PO DAILY methazolamide 50 mg tablet 50 mg PO BID spironolactone [Aldactone] 25 mg tablet 25 mg PO QAM amiodarone 200 mg tablet 200 mg PO DAILY sacubitril-valsartan PO BID warfarin 2.5 mg tablet 2.5 mg PO .COMPLEX Rx Instructions: 2.5 mg orally friday, friday, friday and friday; warfarin 5 mg tablet 5 mg PO .COMPLEX Rx Instructions: 5 mg orally friday, and ; Activity: increase activity as tolerated Diet: other Diet Detail: please see nutrition/audio visual facilities engineer recommendations Forms: Portal Instructions Follow Up Appointments: Dr Leach - 03/26 at 10:00a; Dr Landry - 05/13 at 10:3a ([facility]); Coumadin Clinic - 03/25 Family has already scheduled. Keep appt!; Cardiology - Family has already scheduled. Keep appt!
[2023-03-20 11:52] LABS: Glucometer 117 mg/dL (74-106)
[2023-03-20] MEDS: ENOXAPARIN SODIUM 40 MG/0.4 ML SYRINGE SUBQ (13:55)
--- NOTE | 2023-03-21 14:57 | CM.DCFOLLOWU ---
Person spoke with: How are you feeling? How is your pain? Did you understand your discharge instructions? Do you have any questions about your discharge instructions? Were you given any prescriptions at discharge? Were you able to get your prescriptions filled? Do you understand how to take your medications as ordered? Do you have any questions about your follow up appointment and do you plan to keep your follow up appointment? Is there anything else that you would like to discuss? Questions/Comments/Concerns/Other:
--- NOTE | 2023-03-21 14:59 | CM.DCFOLLOWU ---
No answer for call back
== END 2023-03-20 16:50 | disposition home or self-care (01) | DRG 389 ==
LOC: ER 14:09 → MS 14:28
PROVIDERS: Internal Medicine; Admitting Provider Family Medicine; Emergency Provider Emergency Medicine; Visit Provider Family Medicine
DX: K56.7 Ileus, unspecified (principal); E87.1 Hypo-osmolality and hyponatremia; N17.9 Acute kidney failure, unspecified; I48.91 Unspecified atrial fibrillation; I10 Essential (primary) hypertension; K31.84 Gastroparesis; H40.9 Unspecified glaucoma; N40.0 Benign prostatic hyperplasia without lower urinary tract symptoms; E78.5 Hyperlipidemia, unspecified; K56.609 Unspecified intestinal obstruction, unspecified as to partial versus complete obstruction; E11.9 Type 2 diabetes mellitus without complications; R19.7 Diarrhea, unspecified; E86.0 Dehydration; R79.1 Abnormal coagulation profile; Z87.19 Personal history of other diseases of the digestive system; Z79.01 Long term (current) use of anticoagulants; Z79.84 Long term (current) use of oral hypoglycemic drugs; Z79.899 Other long term (current) drug therapy; Z98.890 Other specified postprocedural states
CPT/HCPCS: 36415; 74022; 74176; 80048; 80053; 81003; 83036; 83690; 83735; 84484; 85025; 85610; 87507; 93005; 94761; 96360; 96361; 96372; 97165; 99285; G0378

== ENCOUNTER 2023-07-05 14:35 | Emergency (ER) | payer MEDICARE, SELFPAY ==
[2023-07-05 14:38] VITALS: BP 130/77; PULSE 64; RESP 16; TEMP 36.4; O2SAT 99; BMI 22.0
--- NOTE | 2023-07-05 14:55 | ED.GENADUL1 ---
HPI - General Adult General Chief complaint: Nausea/Vomiting/Diarrhea Stated complaint: LOW TEMP Time Seen by Provider: 07/05/23 14:37 Source: patient and family Mode of arrival: walk-in Limitations: no limitations History of Present Illness HPI narrative: Patient developed nausea and began vomiting around 230am this morning. He had a second episode of vomiting around 130pm. The family member told me that when he vomits and then gets dehydrated his temperature drops, so she checked his temperature at home - it was only 92F so she brought him in for evaluation. She told us that when he vomits and his temp drops it means he is dehyderated. The patient has no complaints on arrival. he drank clear liquids after the 2nd episode of vomiting and has not vomited since. His temp is 97.6F in our ED. No urinary symptoms. No flank or abdominal pain. No diarrhea or difficulty passing stool. Related Data Home Medications Medication Instructions Recorded Confirmed amiodarone 200 mg tablet 200 mg PO DAILY 03/14/23 03/14/23 atorvastatin 10 mg tablet 10 mg PO QPM 03/14/23 03/15/23 empagliflozin 25 mg tablet 12.5 mg PO DAILY 03/14/23 03/14/23 finasteride 5 mg tablet 5 mg PO DAILY 03/14/23 03/14/23 methazolamide 50 mg tablet 50 mg PO BID 03/14/23 03/14/23 metoprolol succinate 100 mg 100 mg PO DAILY 03/14/23 03/14/23 capsule sprinkle, ext. release 24 hr (Kapspargo Sprinkle) pantoprazole 40 mg tablet,delayed 40 mg PO DAILY 03/14/23 03/14/23 release sacubitril-valsartan PO BID 03/14/23 spironolactone 25 mg tablet 25 mg PO QAM 03/14/23 03/14/23 (Aldactone) tamsulosin 0.4 mg capsule 0.4 mg PO Q24H 03/14/23 03/14/23 warfarin 2.5 mg tablet 2.5 mg PO .COMPLEX 03/14/23 03/15/23 warfarin 5 mg tablet 5 mg PO .COMPLEX 03/14/23 03/15/23 Previous Rx's Medication Instructions Recorded metoclopramide HCl 10 mg tablet 10 mg PO TID 30 days #90 tabs 03/20/23 promethazine 25 mg tablet 25 mg PO Q6H PRN nausea and 07/05/23 vomiting #14 tabs Allergies Allergy/AdvReac Type Severity Reaction Status Date / Time ondansetron [From Zofran] AdvReac Mild Verified 07/05/23 14:42 [facility] Medical History (Updated 07/05/23 @ 14:54 by Jason Barbosa) A-fib ?I48.91 - Unspecified atrial fibrillation (ICD-10) 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 - Peritoneal adhesions (postprocedural) (postinfection) (ICD-10) Bowel obstruction ?K56.609 - Unspecified intestinal obstruction, unspecified as to partial versus complete obstruction (ICD-10) Gastroparesis ?K31.84 - Gastroparesis (ICD-10) Glaucoma ?H40.9 - Unspecified glaucoma (ICD-10) Hypertension ?I10 - Essential (primary) hypertension (ICD-10) Ileus following gastrointestinal surgery ?K91.89 - Other postprocedural complications and disorders of digestive system (ICD-10) ?K56.7 - Ileus, unspecified (ICD-10) Surgical History Social History Smoking status: Never smoker Gender Identity: male Exam Narrative Exam Narrative: Nurses notes and vital signs reviewed and patient is not hypoxic. afebrile General: Well-appearing and in no apparent distress. Skin: Warm, dry, no pallor noted. No rash. Head: Normocephalic, atraumatic. Neck: Supple, non-tender. Eye: Pupils are equal, round and EOMI. No scleral icterus. Ears, Nose, Mouth, and Throat: Oral mucosa is moist and eyes are moist Cardiovascular: Regular Rate and Rhythm without murmur, gallop or rub. Respiratory: No accessory muscle use or respiratory distress. Lungs are clear to auscultation, no wheezing, rales or rhonchi Back: No CVA tenderness Musculoskeletal: normal ROM GI: Abdomen is soft, non-distended. Normal bowel sounds. No masses appreciated. No tenderness to palpation. No rebound, guarding, or rigidity noted. Neurological: A&O x4. No cranial nerve dysfunction observed. No truncal ataxia. Moves all extremities. Sensation intact. Psychiatric: Cooperative and interactive. Normal mood and affect. Constitutional Vital Signs, click to edit/add: Last Vital Signs Temp 97.6 F 07/05/23 14:38 Pulse 64 07/05/23 14:38 Resp 16 07/05/23 14:38 BP 130/77 07/05/23 14:38 Pulse Ox 99 07/05/23 14:38 O2 Del Method Room Air 07/05/23 14:38 Course Vital Signs Vital signs: Vital Signs Temperature 97.6 F 07/05/23 14:38 Pulse Rate 64 07/05/23 14:38 Respiratory Rate 16 07/05/23 14:38 Blood Pressure 130/77 07/05/23 14:38 Pulse Oximetry 99 07/05/23 14:38 Oxygen Delivery Method Room Air 07/05/23 14:38 Temperature 97.6 F 07/05/23 14:38 Pulse Rate 64 07/05/23 14:38 Respiratory Rate 16 07/05/23 14:38 Blood Pressure 130/77 07/05/23 14:38 Pulse Oximetry 99 07/05/23 14:38 Oxygen Delivery Method Room Air 07/05/23 14:38 Medical Decision Making MDM Narrative Medical decision making narrative: Patient declines offer for NS IVF. He agreed to take a dose of Phenergan orally - he has not had any Reglan recently - and go home and drink gatorade . Talked with the patient and family about return to the ER if he worsens or develops any worrisome symptoms. Prescribed additional phenergan to use at home. Family member said that he cannot take zofran because it made him throw up . Discharge Plan Discharge Chief Complaint: Nausea/Vomiting/Diarrhea Clinical Impression: Nausea and vomiting Patient Disposition: Home, Self-Care Time of Disposition Decision: 14:52 Prescriptions / Home Meds: New promethazine 25 mg tablet 25 mg PO Q6H PRN (Reason: nausea and vomiting) Qty: 14 0RF No Action pantoprazole 40 mg tablet,delayed release (DR/EC) 40 mg PO DAILY tamsulosin 0.4 mg capsule 0.4 mg PO Q24H finasteride 5 mg tablet 5 mg PO DAILY empagliflozin 25 mg tablet 12.5 mg PO DAILY atorvastatin 10 mg tablet 10 mg PO QPM [place] Sprinkle 100 mg capsule,sprinkle,ER 24hr 100 mg PO DAILY methazolamide 50 mg tablet 50 mg PO BID spironolactone [Aldactone] 25 mg tablet 25 mg PO QAM amiodarone 200 mg tablet 200 mg PO DAILY sacubitril-valsartan PO BID warfarin 2.5 mg tablet 2.5 mg PO .COMPLEX Rx Instructions: 2.5 mg orally friday, friday, friday and friday; warfarin 5 mg tablet 5 mg PO .COMPLEX Rx Instructions: 5 mg orally friday, and ; metoclopramide HCl 10 mg Tablet 10 mg PO TID 30 Days Qty: 90 0RF Instructions: Acute Nausea and Vomiting (ED) Stand Alone Forms: Portal Instructions Referrals: Physician,Non-Staff, MD [Primary Care Provider] - 1 week
[2023-07-05] MEDS: PROMETHAZINE HCL 25 MG TABLET PO (15:05)
== END 2023-07-05 15:12 | disposition home or self-care (01) ==
PROVIDERS: Emergency Provider Emergency Medicine
DX: R11.2 Nausea with vomiting, unspecified (principal); I48.91 Unspecified atrial fibrillation; I10 Essential (primary) hypertension; Z79.01 Long term (current) use of anticoagulants; Z79.899 Other long term (current) drug therapy
CPT/HCPCS: 99283

== ENCOUNTER 2024-01-04 13:50 | Emergency (ER) | payer MEDICARE, SELFPAY ==
[2024-01-04 13:54] VITALS: BP 106/74; PULSE 85; TEMP 36.8; O2SAT 99; BMI 22.5
--- NOTE | 2024-01-04 14:18 | ECG_ITS ---
The [facility] Test Date: 2024-01-04 Pat Name: JULIETTE MORROW Department: Room: - Gender: Male Crm Technical Lead: : 1940 Requested By: Jason Barbosa Order Number: [id number] Reading MD: BENITEZ PARKER Measurements Intervals [place] Rate: 84 P: -[id number] WI: -[id number] QRS: -72 QRSD: 114 T: 52 QT: 348 QTc: 389 Interpretive Statements 1250 Atrial fib-flutter 3114 Cannot rule out anterior myocardial infarction, age undetermined 7200 Abnormal left axis deviation 9150 abnormal ECG Compared to ECG 03/14/2023 11:47:15 Electronically Signed On 01-05-2024 7:33:57 EDT by BENITEZ PARKER
--- NOTE | 2024-01-04 14:19 | ED.FALL1 ---
HPI HPI - Fall General Chief Complaint: Fall Stated Complaint: FALL /YESTERDAY Time Seen by Provider: 01/04/24 13:54 Source: patient Mode of arrival: walk-in History of Present Illness HPI Narrative: Patient fell yesterday. he was walking out to get the mail and he got dizzy. he fell between the house and the mailbox. He scraped up the right elbow and the right knee. No head injury or LOC. he was able to ambulate normally and has not been dizzy since. He has afib/aflutter and he takes warfarin daily. No excessive or new bruising noted. Last night he stumbled in the dark when his foot struck a trashcan but he did not injure anything. He complained of pain to the lateral right neck near the superior right trapezius. No meds taken at home for pain last night or this morning. He is able to move all extremities normally. Related Data Home Medications ?Medication ?Instructions ?Recorded ?Confirmed atorvastatin 10 mg tablet 10 mg PO QPM 03/14/23 01/04/24 empagliflozin 25 mg tablet 12.5 mg PO DAILY 03/14/23 01/04/24 finasteride 5 mg tablet 5 mg PO DAILY 03/14/23 01/04/24 methazolamide 50 mg tablet 50 mg PO BID 03/14/23 01/04/24 metoprolol succinate 100 mg 100 mg PO DAILY 03/14/23 01/04/24 capsule sprinkle, ext. release 24 hr (Kapspargo Sprinkle) pantoprazole 40 mg tablet,delayed 40 mg PO DAILY 03/14/23 01/04/24 release sacubitril-valsartan PO BID 03/14/23 spironolactone 25 mg tablet 25 mg PO QAM 03/14/23 01/04/24 (Aldactone) tamsulosin 0.4 mg capsule 0.4 mg PO Q24H 03/14/23 01/04/24 warfarin 2.5 mg tablet 2.5 mg PO .COMPLEX 03/14/23 01/04/24 warfarin 5 mg tablet 5 mg PO .COMPLEX 03/14/23 01/04/24 Allergies Allergy/AdvReac Type Severity Reaction Status Date / Time ondansetron [From Zofran] AdvReac Mild Verified 07/05/23 14:42 Opioid HPI Opioid Management Most Recent Pain and Opioid Data: Last Pain Scale 5 01/04/24 14:05 [facility] Medical History (Updated 01/04/24 @ 14:26 by Jason Barbosa) Glaucoma ?H40.9 - Unspecified glaucoma (ICD-10) Gastroparesis ?K31.84 - Gastroparesis (ICD-10) Ileus following gastrointestinal surgery ?K91.89 - Other postprocedural complications and disorders of digestive system (ICD-10) ?K56.7 - Ileus, unspecified (ICD-10) 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 afebrile General: The patient appears well and in no apparent distress. Patient is resting comfortably on cart. GCS = 15. Skin: Warm, dry, no pallor noted. Abrasion to the right elbow and the right anterior knee. Head: Normocephalic, atraumatic Neck: Supple, trachea mid-line, no midline tenderness, no lymphadenopathy. Full ROM and no midline cervical spinal tenderness. The patient has no step-offs or crepitus noted. Soft tissue tenderness at the base of the right lateral neck near the superior trapezius. No ecchymosis noted. Eyes: PERRLA, EOMI ENT: TM's clear, no hemotympanum detected, no blood in posterior oropharynx Cardiovascular: Regular Rate and Rhythm Respiratory: Patient is in no distress, no accessory muscle use, lungs are clear to auscultation, no wheezing, rales or rhonchi Chest Wall: no tenderness, no flail chest, contusion, abrasion, or signs of trauma. Back: No thoracic or lumbar tenderness to palpation. No posterior rib tenderness or ecchymosis Musculoskeletal: no sign of long bone fracture, no hip or polvic tenderness, no UE or LE swelling. Pulses at femoral, DP, PT, and popiteal were 2+ bilaterally. Moves all four extremities in all modalities with 5/5 strength. GI: Normal bowel sounds, no tenderness to palpation, no masses appreciated. No rebound, guarding, or rigidity noted. Neurological: A&O x4, normal equal production consultant strength, normal finger to nose, normal speech, normal coordination, normal motor, normal sensory. Psychiatric: Cooperative Constitutional Vital Signs, click to edit/add: Last Vital Signs Temp 98.2 F 01/04/24 13:54 Pulse 85 01/04/24 13:54 Resp 20 01/04/24 13:54 BP 106/74 01/04/24 13:54 Pulse Ox 99 01/04/24 13:54 O2 Del Method Room Air 01/04/24 13:54 Course Vital Signs Vital signs: Vital Signs Temperature 98.2 F 01/04/24 13:54 Pulse Rate 85 01/04/24 13:54 Respiratory Rate 20 01/04/24 13:54 Blood Pressure 106/74 01/04/24 13:54 Pulse Oximetry 99 01/04/24 13:54 Oxygen Delivery Method Room Air 01/04/24 13:54 Temperature 98.2 F 01/04/24 13:54 Pulse Rate 85 01/04/24 13:54 Respiratory Rate 20 01/04/24 13:54 Blood Pressure 106/74 01/04/24 13:54 Pulse Oximetry 99 01/04/24 13:54 Oxygen Delivery Method Room Air 01/04/24 13:54 MDM - Fall MDM Narrative Medical decision making narrative: Patient has soft tissue tenderness but no bony tenderness to suggest acute fracture to the neck,back, head, torso or extremities. EKG reviewed due to prior dizziness - he is not dizzy now. Patient given oral Tylenol and then discharged home. Long talk with the patient and family. ECG Data Attestation: I personally reviewed and interpreted this ECG as follows: Interpretation: EKG interpretation: Emergency Department physician interpretation. Atrial flutter at 84bpm. Left axis deviation. Nonspecific ST-T wave changes without ST segment elevation or depression. Discharge Plan Discharge Stand Alone Forms: Portal Instructions Chief Complaint: Fall Clinical Impression: Fall, Acute strain of neck muscle Patient Disposition: Home, Self-Care Time of Disposition Decision: 14:26 Prescriptions / Home Meds: No Action pantoprazole 40 mg tablet,delayed release (DR/EC) 40 mg PO DAILY tamsulosin 0.4 mg capsule 0.4 mg PO Q24H finasteride 5 mg tablet 5 mg PO DAILY empagliflozin 25 mg tablet 12.5 mg PO DAILY atorvastatin 10 mg tablet 10 mg PO QPM Kapspargo Sprinkle 100 mg capsule,sprinkle,ER 24hr 100 mg PO DAILY methazolamide 50 mg tablet 50 mg PO BID spironolactone [Aldactone] 25 mg tablet 25 mg PO QAM sacubitril-valsartan PO BID warfarin 2.5 mg tablet 2.5 mg PO .COMPLEX Rx Instructions: 2.5 mg orally friday, friday, friday and friday; warfarin 5 mg tablet 5 mg PO .COMPLEX Rx Instructions: 5 mg orally friday, and ; Print Language: Mexican Instructions: Cervical Strain (ED) Referrals: Physician,Non-Staff, MD [Primary Care Provider] - 1 week
[2024-01-04] MEDS: ACETAMINOPHEN 500 MG TABLET 1000 MG PO (14:27)
[2024-01-04] MEDS: BACITRACIN 0.9 GM PACKET 1 PACKET TOPICAL (14:41)
== END 2024-01-04 14:42 | disposition home or self-care (01) ==
PROVIDERS: Emergency Provider Emergency Medicine
DX: S16.1XXA Strain of muscle, fascia and tendon at neck level, initial encounter (principal); W19.XXXA Unspecified fall, initial encounter; I48.91 Unspecified atrial fibrillation; I48.92 Unspecified atrial flutter; I10 Essential (primary) hypertension; H40.9 Unspecified glaucoma; Z79.899 Other long term (current) drug therapy; Z79.01 Long term (current) use of anticoagulants
CPT/HCPCS: 93005; 99283

== ENCOUNTER 2024-04-30 16:19 | Emergency (ER) | payer MEDICARE, SELFPAY ==
[2024-04-30] VITALS (11 sets, daily range): BP systolic 81–100; BP diastolic 54–74; PULSE 89–107; TEMP 36.4; O2SAT 96–99; BMI 221.4
--- NOTE | 2024-04-30 16:49 | XR_ITS ---
The [address] [address] Patient Name: JULIETTE MORROW MRN: [id number] date: 1940 Sex: M Assigned Patient Location: ER Current Patient Location: ER Accession/Order Number: [id number] Exam Date: 04/30/2024 16:57 Report Date: 04/30/2024 18:25 At the request of: KASSI CÁRDENAS Procedure: XR abdomen 1V EXAM: XR abdomen 1V HISTORY: nausea COMPARISON: 03/18/2023 TECHNIQUE: Abdominal X-ray, 1 view FINDINGS: Support devices: None. Bowel: Small bowel wall thickening and gaseous distention, measuring up to 7.4 cm. There is gaseous distention of cecum measuring 10 cm. Findings suspicious to bowel obstruction. Additional findings: None. XR/XR abdomen 1V IMPRESSION: Radiographic evidence of bowel obstruction. CT of the abdomen and pelvis with contrast is recommended for better evaluation. Electronically authenticated by: ITZEL MCKEE Date: 04/30/2024 18:25
[2024-04-30 16:57] LABS: Basophils Percent Auto 0.3 % (0.2-2.0); Eosinophils Absolute Auto 0.1 10^3/uL (0.0-0.7); Eosinophils Percent Auto 0.4 % (0.9-7.0); Hematocrit 48.1 % (42.0-54.0); Immature Granulocytes Abs Auto 0.06 10^3/uL (0.00-0.03); Immature Granulocytes Pct Auto 0.5 % (0.0-0.5); Lymphocytes Percent Auto 7.6 % (20.5-60.0); Mean Corpuscular HGB Conc 33.3 g/dL (29.9-35.2); Mean Corpuscular Volume 96.2 fL (80.0-94.0); Mean Platelet Volume 10.1 fL (9.5-13.5); Monocytes Absolute Auto 0.7 10^3/uL (0.3-0.8); Monocytes Percent Auto 5.8 % (1.7-12.0); Neutrophils Absolute Auto 10.7 10^3/uL (1.4-6.5); Neutrophils Percent Auto 85.4 % (43.0-75.0); Platelet Count 250 10^3/uL (150-450); Red Cell Distribution Width 14.4 % (11.0-15.0); White Blood Count 12.6 10^3/uL (4.0-11.0)
[2024-04-30] MEDS: 0.9 % SODIUM CHLORIDE 1,000 ML 500 ML IV (17:05)
[2024-04-30] MEDS: PROMETHAZINE HCL 12.5 MG in 0.9 % SODIUM CHLORIDE 50 ML 202 MG IV (17:06)
[2024-04-30 17:14] LABS: Alanine Aminotransferase 29 U/L (16-63); Albumin Globulin Ratio 0.8; Albumin Level 3.5 g/dL (3.4-5.0); Alkaline Phosphatase 95 U/L (46-116); Anion Gap 16.5; Aspartate Amino Transferase 21 U/L (15-37); BUN Creatinine Ratio 29.5; Calcium 9.1 mg/dL (8.5-10.1); Chloride 101 mmol/L (98-107); Estimated GFR (African America 35 (>=60); Estimated GFR (Non-African Ame 29 (>=60); Globulin 4.6 g/dL; Glucose 164 mg/dL (74-106); Potassium 4.5 mmol/L (3.5-5.1); Sodium 132 mmol/L (136-145); Total Protein 8.1 g/dL (6.4-8.2); Troponin I High Sensitivity 13.7 pg/mL (4.0-76.1)
[2024-04-30 17:20] LABS: INR 2.56; Partial Thromboplastin Time 39.9 sec (22.3-36.2); Prothrombin Time 24.7 sec (9.0-11.6)
[2024-04-30 17:29] LABS: Bilirubin Urine NEGATIVE (NEGATIVE); Blood Urine NEGATIVE (NEGATIVE); Clarity Urine CLEAR (CLEAR); Color Urine YELLOW (YELLOW); Glucose Urine UA >=1000 mg/dL (NEGATIVE); Ketones Urine TRACE mg/dL (NEGATIVE); Leukocyte Esterase Urine NEGATIVE (NEGATIVE); Nitrite Urine NEGATIVE (NEGATIVE); Protein Urine NEGATIVE (NEG/TRACE); Urobilinogen Urine 0.2 EU/dL (0.2-1.0)
[2024-04-30 17:44] LABS: Bacteria Urine TRACE #/HPF (NONE SEEN); Crystals Seen? None Seen #/HPF (None Seen); Mucus Urine SMALL (NONE SEEN); RBC Urine 0-2 #/HPF (0-2); Squamous Epithelial Cell Urine FEW #/LPF (NONE/RARE); WBC Urine NONE SEEN #/HPF (NONE SEEN)
[2024-04-30 17:45] LABS: Cast Seen? SEEN #/LPF (NONE SEEN); Hyaline Casts Urine FEW; Urine Culture Indicated NO
--- NOTE | 2024-04-30 18:07 | ECG_ITS ---
The [facility] Test Date: 2024-04-30 Pat Name: JULIETTE MORROW Department: Room: - Gender: Male Box Icer: : 1940 Requested By: Order Number: [id number] Reading MD: BENITEZ PARKER Measurements Intervals [place] Rate: 110 P: -39957 HI: -28285 QRS: -75 QRSD: 110 T: 94 QT: 344 QTc: 409 Interpretive Statements 67047 Atrial fibrillation with rapid ventricular response with aberrant conduction, or ventricular premature complexes 2420 RSR (QR) in lead V1/V2, consistent with right ventricular conduction delay 3332 Anterolateral myocardial infarction, probably recent 3634 Inferior myocardial infarction, age undetermined [address] depression, probably digitalis effect 8102 Low QRS voltage in chest leads 9150 abnormal ECG Compared to ECG 01/04/2024 14:03:33 Electronically Signed On 05-01-2024 7:56:07 EDT by BENITEZ PARKER
--- NOTE | 2024-04-30 18:30 | CT_ITS ---
The [address] [address] Patient Name: JULIETTE MORROW MRN: [id number] date: 1940 Sex: M Assigned Patient Location: ER Current Patient Location: ER Accession/Order Number: [id number] Exam Date: 04/30/2024 18:47 Report Date: 04/30/2024 19:54 At the request of: KASSI CÁRDENAS Procedure: CT abdomen pelvis wo con CT ABDOMEN/PELVIS WITHOUT IV CONTRAST. INDICATION: r/o obstruction COMPARISON: 03/15/2023 TECHNIQUE: Contiguous axial images were obtained from the lung bases to the pelvic floor without intravenous or oral contrast. Coronal and sagittal reformations are provided. FINDINGS: LOWER LUNGS: Clear. LIVER/BILIARY TREE: No discrete lesion. No intrahepatic ductal dilatation. GALLBLADDER: Contracted or absent.. CBD: Normal CBD. SPLEEN: Normal in size. PANCREAS: No appreciable peripancreatic fluid. No pancreatic ductal dilatation. No discrete lesion. ADRENALS: Normal. KIDNEYS: No hydronephrosis. No radiopaque calculus. STOMACH AND BOWEL: Stomach is unremarkable. Fluid-filled distended bowel without discrete transition point. Status post colectomy. PERITONEAL CAVITY: No fluid. No fat stranding. ABDOMINAL WALL: No subcutaneous stranding. No subcutaneous fluid collection. LYMPH NODES: No mesenteric or retroperitoneal lymphadenopathy by CT criteria. ABDOMINAL AORTA: No aneurysm. PELVIS: No acute abnormality. Prostatomegaly. MUSCULOSKELETAL: No acute osseous abnormality. CT/CT abdomen pelvis wo con IMPRESSION: Fluid-filled distended bowel without discrete transition point suggestive of an ileus or enteritis. Electronically authenticated by: ANANT BUI Date: 04/30/2024 19:54
--- NOTE | 2024-04-30 18:38 | ED_ITS ---
HPI HPI - General Adult General Chief complaint: Nausea/Vomiting/Diarrhea Stated complaint: POSS DEHYDRATION Time Seen by Provider: 04/30/24 16:26 Source: patient Mode of arrival: walk-in Limitations: no limitations History of Present Illness HPI narrative: 84-year-old male presents to the emergency room chief complaint of nausea, vomiting possible dehydration. Daughter states patient has had a history of ileus and bowel obstruction in the past. He was able to keep fluids down earlier today but vomited several days ago and earlier this morning. His abdomen is soft but distended. He denies any pain. He is alert and oriented. Daughter states it has been over a year since he has had a bowel obstruction. Patient does go to the [place] alone. He is able to care for himself. States he occasionally gets dehydrated when he does not eat properly because he has a history of gastroparesis and does not eat a proper diet. Related Data Home Medications ?Medication ?Instructions ?Recorded ?Confirmed atorvastatin 10 mg tablet 10 mg PO QPM 03/14/23 04/30/24 empagliflozin 25 mg tablet 12.5 mg PO DAILY 03/14/23 04/30/24 finasteride 5 mg tablet 5 mg PO DAILY 03/14/23 04/30/24 methazolamide 50 mg tablet 50 mg PO BID 03/14/23 04/30/24 metoprolol succinate 100 mg 100 mg PO DAILY 03/14/23 04/30/24 capsule sprinkle, ext. release 24 hr (Kapspargo Sprinkle) pantoprazole 40 mg tablet,delayed 40 mg PO DAILY 03/14/23 04/30/24 release sacubitril-valsartan PO BID 03/14/23 spironolactone 25 mg tablet 25 mg PO QAM 03/14/23 04/30/24 (Aldactone) tamsulosin 0.4 mg capsule 0.4 mg PO Q24H 03/14/23 04/30/24 warfarin 2.5 mg tablet 2.5 mg PO .COMPLEX 03/14/23 04/30/24 warfarin 5 mg tablet 5 mg PO .COMPLEX 03/14/23 04/30/24 Previous Rx's ?Medication ?Instructions ?Recorded promethazine 25 mg tablet 25 mg PO Q6H PRN nausea and 04/30/24 vomiting #14 tabs Allergies Allergy/AdvReac Type Severity Reaction Status Date / Time ondansetron [From Zofran] AdvReac Mild Verified 07/05/23 14:42 Opioid HPI Opioid Management Most Recent Opioid Data: Last Pain Scale 5 01/04/24 14:05 Review of Systems ROS Narrative All Systems are negative except as noted/marked.All systems reviewed and otherwise negative [facility] Medical History (Updated 04/30/24 @ 20:04 by Dara Johnson) Glaucoma ?H40.9 - Unspecified glaucoma (ICD-10) Gastroparesis ?K31.84 - Gastroparesis (ICD-10) Ileus following gastrointestinal surgery ?K91.89 - Other postprocedural complications and disorders of digestive system (ICD-10) ?K56.7 - Ileus, unspecified (ICD-10) 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 General: The patient appears well and in no apparent distress. Patient is resting comfortably on cart. Skin: Warm, dry, no pallor noted. There is no rash noted. Head: Normocephalic, atraumatic Eye: Normal conjunctiva, no drainage, EOMI. PERRL Ears, Nose, Mouth, and Throat: oral mucosa is moist. Nares patent. Mouth without vesicles. Ear canals patent. Tm's without Erythema Cardiovascular: Regular Rate and Rhythm Respiratory: Patient is in no distress, no accessory muscle use, lungs are clear to auscultation, no wheezing, rales or rhonchi Back: non-tender, no CVA tenderness bilaterally to percussion. GI: bloated , hyper active bowel sounds, no tenderness to palpation, no masses appreciated. No rebound, guarding, or rigidity noted. Musculoskeletal: The patient has no evidence of calf tenderness, no pitting edema, symmetrical pulses noted bilaterally Neurological: A&O x4, normal speech Psychiatric: Cooperative Constitutional Vital Signs, click to edit/add: Last Vital Signs Temp 97.6 F 04/30/24 16:28 Pulse 98 H 04/30/24 19:33 Resp 18 04/30/24 19:33 BP 90/55 04/30/24 19:33 Pulse Ox 97 04/30/24 18:30 O2 Del Method Room Air 04/30/24 16:28 Course Vital Signs Vital signs: Vital Signs Temperature 97.6 F 04/30/24 16:28 Pulse Rate 104 H 04/30/24 16:28 Respiratory Rate 18 04/30/24 16:28 Blood Pressure 90/60 04/30/24 16:28 Pulse Oximetry 98 04/30/24 16:28 Oxygen Delivery Method Room Air 04/30/24 16:28 Temperature 97.6 F 04/30/24 16:28 Pulse Rate 98 H 04/30/24 19:33 Respiratory Rate 18 04/30/24 19:33 Blood Pressure 90/55 04/30/24 19:33 Pulse Oximetry 97 04/30/24 18:30 Oxygen Delivery Method Room Air 04/30/24 16:28 Medical Decision Making MDM Narrative Medical decision making narrative: 84-year-old male presents to the emergency room chief complaint of nausea, vomiting possible dehydration. Daughter states patient has had a history of ileus and bowel obstruction in the past. He was able to keep fluids down earlier today but vomited several days ago and earlier this morning. His abdomen is soft but distended. He denies any pain. He is alert and oriented. Daughter states it has been over a year since he has had a bowel obstruction. Patient does go to the [place] Home alone. He is able to care for himself. States he occasionally gets dehydrated when he does not eat properly because he has a history of gastroparesis and does not eat a proper diet. Upon arrival to the emergency room, patient is blood drawn and x-ray of his abd omen. X-ray of the abdomen showed questionable bowel obstruction suggest CT scan. Patient has a known history of bowel obstructions in the past. Patient does go to the [place]. CT scan shows he has ileus no acute obstruction. Suggest the patient to stay here in the hospital for his ileus. Patient refuses admission at this time and wishes to be discharged home. Daughter is at bedside and also agrees. Patient will sign out AGAINST MEDICAL ADVICE. I did discuss signs and symptoms of worsening condition including profuse vomiting or acute obstruction. Patient's lab work did also show that he had an elevated BUN and creatinine. He was given a liter of fluids here in the emergency room. He does feel much better he has had no vomiting since being here in the emergency room. He was medicated with IV Phenergan. Patient discharged home with Phenergan. Patient told to push clear liquid diet. Follow-up with the [place]. Patient verbalized understanding agrees with plan of care. Daughter also verbalizes understanding. Differential Diagnosis Differential Diagnosis: , Vomiting, bowel obstruction, ileus Medical Records Medical records reviewed: Yes I reviewed the patient's medical records Lab Data Lab results reviewed: Yes I reviewed the patient's lab results Labs: Lab Results 04/30/24 04/30/24 Range/Units 16:39 17:17 WBC 12.6 H (4.0-11.0) 10^3/uL RBC 5.00 (4.70-6.10) 10^6/uL Hgb 16.0 (14.0-18.0) g/dL Hct 48.1 (42.0-54.0) % MCV 96.2 H (80.0-94.0) fL MCH 32.0 (25.9-34.0) pg MCHC 33.3 (29.9-35.2) g/dL RDW 14.4 (11.0-15.0) % Plt Count 250 (150-450) 10^3/uL MPV 10.1 (9.5-13.5) fL Neut % (Auto) 85.4 H (43.0-75.0) % Lymph % (Auto) 7.6 L (20.5-60.0) % Gem % (Auto) 5.8 (1.7-12.0) % Eos % (Auto) 0.4 L (0.9-7.0) % Baso % (Auto) 0.3 (0.2-2.0) % Neut # (Auto) 10.7 H (1.4-6.5) 10^3/uL Lymph # (Auto) 1.0 L (1.2-3.8) 10^3/uL Gem # (Auto) 0.7 (0.3-0.8) 10^3/uL Eos # (Auto) 0.1 (0.0-0.7) 10^3/uL Baso # (Auto) 0.0 (0.0-0.1) 10^3/uL Abs Immat Gran (auto) 0.06 H (0.00-0.03) 10^3/uL Imm/Tot Granulo (auto) 0.5 (0.0-0.5) % PT 24.7 H (9.0-11.6) sec INR 2.56 APTT 39.9 H (22.3-36.2) sec Sodium 132 L (136-145) mmol/L Potassium 4.5 (3.5-5.1) mmol/L Chloride 101 (98-107) mmol/L Carbon Dioxide 19.0 L (21.0-32.0) mmol/L Anion Gap 16.5 BUN 64.0 H (7.0-18.0) mg/dL Creatinine 2.17 H (0.70-1.30) mg/dL Est GFR ( Amer) 35 L (>=60) Est GFR (Non-Af Amer) 29 L (>=60) BUN/Creatinine Ratio 29.5 Glucose 164 H (74-106) mg/dL Calcium 9.1 (8.5-10.1) mg/dL Total Bilirubin 1.0 (0.2-1.0) mg/dL AST 21 (15-37) U/L ALT 29 (16-63) U/L Alkaline Phosphatase 95 (46-116) U/L Troponin I High Sens 13.7 (4.0-76.1) pg/mL Total Protein 8.1 (6.4-8.2) g/dL Albumin 3.5 (3.4-5.0) g/dL Globulin 4.6 g/dL Albumin/Globulin Ratio 0.8 Urine Color Yellow (YELLOW) Urine Clarity Clear (CLEAR) Urine pH 6.0 (5.0-9.0) Ur Specific Lindsay 1.020 (1.005-1.025) Urine Protein Negative (NEG/TRACE) mg/dL Urine Glucose (UA) >=1000 A (NEGATIVE) mg/dL Urine Ketones Trace A (NEGATIVE) mg/dL Urine Occult Blood Negative (NEGATIVE) Urine Nitrite Negative (NEGATIVE) Urine Bilirubin Negative (NEGATIVE) Urine Urobilinogen 0.2 (0.2-1.0) EU/dL Ur Leukocyte Esterase Negative (NEGATIVE) Urine RBC 0-2 (0-2) #/HPF Urine WBC None seen (NONE SEEN) #/HPF Ur Squamous Epith Cells Few A (NONE/RARE) #/LPF Urine Crystals None seen (None Seen) #/HPF Urine Bacteria Trace A (NONE SEEN) #/HPF Urine Casts Seen A (NONE SEEN) #/LPF Hyaline Casts Few Urine Mucus Small A (NONE SEEN) Ur Culture Indicated? No Imaging Data Abdominal x-ray: Radiologist's impression: ITS Impressions Abdomen X-Ray 04/30/24 16:49 IMPRESSION: Radiographic evidence of bowel obstruction. CT of the abdomen and pelvis with contrast is recommended for better evaluation. Electronically authenticated by: ITZEL MCKEE Date: 04/30/2024 18:25 Abdomen/Pelvis CT 04/30/24 18:30 IMPRESSION: Fluid-filled distended bowel without discrete transition point suggestive of an ileus or enteritis. Electronically authenticated by: ANANT BUI Date: 04/30/2024 19:54 ECG Data Interpretation: 1634 A-fib with a rate of [address] elevation or depression, occasional PVC, no changes compared to EKG in December 2023 Discharge Plan Discharge Stand Alone Forms: Portal Instructions Chief Complaint: Nausea/Vomiting/Diarrhea Clinical Impression: Ileus, unspecified, Nausea and vomiting Patient Disposition: Left Against Medical Advice Time of Disposition Decision: 20:03 Condition: Fair Prescriptions / Home Meds: New promethazine 25 mg tablet 25 mg PO Q6H PRN (Reason: nausea and vomiting) Qty: 14 0RF No Action pantoprazole 40 mg tablet,delayed release (DR/EC) 40 mg PO DAILY tamsulosin 0.4 mg capsule 0.4 mg PO Q24H finasteride 5 mg tablet 5 mg PO DAILY empagliflozin 25 mg tablet 12.5 mg PO DAILY atorvastatin 10 mg tablet 10 mg PO QPM Kapspargo Sprinkle 100 mg capsule,sprinkle,ER 24hr 100 mg PO DAILY methazolamide 50 mg tablet 50 mg PO BID spironolactone [Aldactone] 25 mg tablet 25 mg PO QAM sacubitril-valsartan PO BID warfarin 2.5 mg tablet 2.5 mg PO .COMPLEX Rx Instructions: 2.5 mg orally friday, friday, friday and friday; warfarin 5 mg tablet 5 mg PO .COMPLEX Rx Instructions: 5 mg orally friday, and ; Print Language: Nauruan Instructions: Acute Nausea and Vomiting (ED), Ileus (ED) Additional Instructions: Diagnosed with an ileus, and is suggested to stay here in the hospital. reasons to stay in the hospital were discussed with you including development of obstruction. if you should develop increased pain, nausea, vomiting, profuse vomiting return to the emergency room. Follow-up with your primary care physician. Referrals: Physician,Non-Staff, MD [Primary Care Provider] - 1 week
== END 2024-04-30 20:24 | disposition left against medical advice (07) ==
PROVIDERS: Physician Assistant; Emergency Provider Emergency Medicine Emergency Medical Services
DX: K56.7 Ileus, unspecified (principal); R11.2 Nausea with vomiting, unspecified; K31.84 Gastroparesis; Z53.29 Procedure and treatment not carried out because of patient's decision for other reasons; I48.91 Unspecified atrial fibrillation
CPT/HCPCS: 36415; 74018; 74176; 80053; 81001; 84484; 85025; 85610; 85730; 93005; 96361; 96365; 99285; J2250

== ENCOUNTER 2024-05-30 11:08 | Emergency (ER) | payer MEDICARE, SELFPAY ==
[2024-05-30] VITALS (38 sets, daily range): BP systolic 73–103; BP diastolic 52–73; PULSE 85–113; TEMP 36.5; O2SAT 97–100; BMI 21.4
[2024-05-30] MEDS: 0.9 % SODIUM CHLORIDE 1,000 ML 999 ML IV (11:20)
--- OUTSIDE RECORDS SUMMARY | 2024-05-30 11:24 | XMS_ITS | CCD ---
Author Organization [facility] Care Team Providers Care [employer] Name Role Phone Yves Sanford Unavailable MD Ivan Lopez Primary Care Provider BERNADINE Rivero Emergency Provider [phone] RONALD, DR ACEVEDO Primary Care Unavailable KEITH OLIVEIRA Admitting Unavailable KEITH OLIVEIRA Attending Unavailable KEITH OLIVEIRA Consulting Unavailable DORIAN YODER Consulting Unavailable BROOK ., DR OLSON Consulting Unavailable DORIAN SOARES Consulting Unavailable JOZEF SANDERS Consulting Unavailable MILAGROS MIXON Consulting Unavailable RONALD, DR ACEVEDO Primary Care Unavailable DEBRA OLIVEIRALAS Admitting Unavailable KEITH OLIVEIRA Attending Unavailable DEBRA OLIVEIRALAS Consulting Unavailable DORIAN YODER Consulting Unavailable LAKHWINDER ., DR FLORES Consulting Unavailable SCARLET RUSSELL Consulting Unavailable SHAR TRJEO Consulting Unavailable Wilson John Consulting Unavailable SHAHZAD VILLALPANDO Consulting Unavailable RAMO TOMPKINS Consulting Unavailable MARGOT DEY Consulting Unavailable MP HERNANDEZ Consulting Unavailable RONALD, DR ACEVEDO Primary Care Unavailable MILAGROS MIXON Consulting Unavailable SCARLET RUSSELL Admitting Unavailable SCARLET RUSSELL Attending Unavailable Ajit Rivero Attending Unavailable Ajit Rivero Admitting Unavailable Ivan Lopez Primary Care Unavailable Allergies Allergy Classification Reported Allergen(s) Allergy Type Date of Onset Reaction(s) Facility (2 sources) Ondansetron; Translations: [ondansetron] Drug Allergy 01-10-2023 [facility] (1 source) Ondansetron Drug Allergy 11-19-2022 [facility] Medications Current Medications Medication Drug Class(es) Dates Sig (Normalized) Sig (Original) loperamide hydrochloride 2 mg oral tablet (2 sources) Opioid Agonist take 1 tablet by mouth every six hours Imodium A-D 2 MG 1 tablet as needed Orally Four times a day Active Warfarin (4 sources) Vitamin K Antagonist Coumadin Active Completed/Discontinued Medications Medication Drug Class(es) Dates Sig (Normalized) Sig (Original) ondansetron 4 mg disintegrating oral tablet (3 sources) Serotonin-3 Receptor Antagonist Start: 07-09-2022 End: 01-10-2023 take 4 mg by mouth every eight hours Ondansetron Discontinued 4 MG PO Q8H 6 2 July 09, 2022 12:00am January 10, 2023 1:14pm Start: 05-23-2022 take 1 tablet by dedra th every twenty-four hours Ondansetron HCl 4 MG 1 tablet Orally Once a day for 30 day(s) Apr, Active Problems Active Problems Problem Classification Problem Date Documented Da te Episodic/Chronic Acute and unspecified renal failure (2 sources) Injury of kidney; Translations: [Acute kidney failure, unspecified] Onset: 02-11-2023 07-09-2022 Episodic Bacterial infection; unspecified site (1 source) Helicobacter pylori [H. pylori] as the cause of diseases classified elsewhere; Translations: [H PYLORI CAUSE OF DZ CLASS ELSW] Onset: 02-11-2023 Episodic Biliary tract disease (1 source) Calculus of gallbladder without cholecystitis without obstruction; Translations: [CALCU GB W/O CHOLECYST W/O OBST] Onset: 02-11-2023 Episodic Cardiac dysrhythmias (1 source) Unspecified atrial fibrillation; Translations: [UNSPECIFIED ATRIAL FIBRILLATION] Onset: 12-02-2022 Chronic Congestive heart failure; nonhypertensive (1 source) Heart failure, unspecified; Translations: [HEART FAILURE UNSPECIFIED] Onset: 12-02-2022 Chronic Diabetes mellitus with complications (1 source) Type 2 diabetes mellitus with diabetic autonomic (poly)neuropathy; Translations: [TYPE 2 DM W/DIAB AUTONOM NEUROPATHY] Onset: 12-02-2022 Chronic Diabetes mellitus without complication (1 source) Type 2 diabetes mellitus without complications; Translations: [TYPE 2 DM WITHOUT COMPLICATIONS] Onset: 11-25-2022 Chronic Diseases of white blood cells (1 source) Elevated white blood cell count, unspecified; Translations: [ELEVATED WHITE BLOOD CELL COUNT UNS] Onset: 02-11-2023 Chronic Disorders of lipid metabolism (2 sources) Pure hypercholesterolemia, unspecified; Translations: [Hyperlipidemia, unspecified] Onset: 02-11-2023 Chronic E Codes: Adverse effects of medical drugs (1 source) Adverse effect of anticoagulants, initial encounter; Translations: [ADVERSE EFFECT ANTICOAG INITIAL ENC] Onset: 12-02-2022 Episodic Essential hypertension (1 source) Essential (primary) hypertension; Translations: [ESSENTIAL PRIMARY HYPERTENSION] Onset: 02-11-2023 Chronic Fluid and electrolyte disorders (2 sources) Hypo-osmolality and hyponatremia; Translations: [Dehydration] Onset: 02-11-2023 Episodic Gastritis and duodenitis (1 source) Gastritis, unspecified, without bleeding; Translations: [GASTRITIS UNS WITHOUT BLEEDING] Onset: 02-11-2023 Episodic Glaucoma (1 source) Unspecified glaucoma; Translations: [UNSPECIFIED GLAUCOMA] Onset: 12-02-2022 Chronic Hyperplasia of prostate (1 source) Benign prostatic hyperplasia without lower urinary tract symptoms; Translations: [BENIGN PROSTATIC HYPRPLASIA WO LUTS] Onset: 12-02-2022 Chronic Hypertension with complications and secondary hypertension (1 source) Hypertensive heart disease with heart failure; Translations: [HTN HEART DISEASE W/HEART FAIL] Onset: 12-02-2022 Chronic Intestinal obstruction without hernia (4 sources) Unspecified intestinal obstruction, unspecified as to partial versus complete obstruction; Translations: [Partial intestinal obstruction, unspecified as to cause] Onset: 11-19-2022 Episodic Nausea and vomiting (5 sources) Nausea; Translations: [Nausea and vomiting] Onset: 05-23-2022 Resolved: 05-23-2022 Episodic Noninfectious gastroenteritis (1 source) Noninfective gastroenteritis and colitis, unspecified; Translations: [NONINFECTIVE GE AND COLITIS UNS] Onset: 02-11-2023 Episodic Other aftercare (1 source) shelter (current) use of anticoagulants; Translations: [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 CURRNT USE ANTICOAGULANTS] Onset: 02-11-2023 Episodic Other aftercare (1 source) Other long-term (current) drug therapy; Translations: [OTH LONGTERM CURRENT DRUG THERAPY] Onset: 02-11-2023 Episodic Other circulatory disease (5 sources) Hypotension, unspecified; Translations: [HYPOTENSION UNSPECIFIED] Onset: 11-24-2022 Episodic Other disorders of stomach and duodenum (1 source) Gastroparesis; Translations: [GASTROPARESIS] Onset: 12-02-2022 Episodic Other gastrointestinal disorders (3 sources) Altered bowel function; Translations: [Change in bowel habit] Episodic Other gastrointestinal disorders (4 sources) Diarrhea; Translations: [Diarrhea, unspecified] 07-09-2022 Episodic Other injuries and conditions due to external causes (1 source) Injury of head; Translations: [Unspecified injury of head, initial encounter] 01-10-2023 Episodic Other injuries and conditions due to external causes (1 source) Systemic inflammatory response syndrome (SIRS) of non-infectious origin without acute organ dysfunction; Translations: [SIRS NON-INF ORIG NO AC ORGAN DYSF] Onset: 02-11-2023 Episodic Other nutritional; endocrine; and metabolic disorders (4 sources) Weight loss; Translations: [Abnormal weight loss] Episodic Other screening for suspected conditions (not mental disorders or infectious disease) (1 source) Abnormal coagulation profile; Translations: [ABNORMAL COAGULATION PROFILE] Onset: 02-11-2023 Episodic Residual codes; unclassified (3 sources) History of excision of intestinal structure; Translations: [Acquired absence of other specified parts of digestive tract] Episodic Residual codes; unclassified (2 sources) Acquired absence of other specified parts of digestive tract; Translations: [ACQ ABSENCE OTH PART DIGESTV TRACT] Onset: 02-21-2022 Resolved: 02-21-2022 Episodic Screening and history of mental health and substance abuse codes (1 source) Personal history of nicotine dependence; Translations: [PERSONAL HISTORY OF NICOTINE DEPEND] Onset: 11-25-2022 Episodic Unclassified (1 source) Chronic atrial fibrillation, unspecified; Translations: [CHRONIC ATRIAL FIBRILLATION UNSPEC] Onset: 02-11-2023 Unclassified (1 source) ACIDOSIS UNSPECIFIED; Translations: [ACIDOSIS UNSPECIFIED] Onset: 02-11-2023 Unclassified (1 source) CONTACT W/AND (SUSP) EXPOS COVID-19; Translations: [CONTACT W/AND (SUSP) EXPOS COVID-19] Onset: 02-11-2023 Unclassified (1 source) Unspecified injury of head, initial encounter; Translations: [Unspecified injury of head, initial encounter] Onset: 01-10-2023 Past or Other Problems Problem Classification Problem Date Documented Da te Episodic/Chronic Other gastrointestinal disorders (3 sources) Diarrhea, unspecified Onset: 11-22-2021 Resolved: 05-23-2022 Episodic Other gastrointestinal disorders (1 source) Change in bowel habit Onset: 02-21-2022 Resolved: 02-21-2022 Episodic Other nutritional; endocrine; and metabolic disorders (2 sources) Abnormal weight loss Onset: 11-22-2021 Resolved: 02-21-2022 Episodic Results Test Name Value Interpretation Reference Range Facil ity Lab Reportson 03-17-2023 Lab Reports [id number] Normal [facility] STOOL CULTUREon 11-26-2022 Campylobacter Culture Final report Normal [facility] Comment on above: Performed By: #### C XSTOOL #### [facility] [address] [place] [address] Dr. Itzel Lerma E coli Shiga Toxin EIA Negative Normal Negative [facility] Comment on above: Performed By: #### C XSTOOL #### [facility] [address] [place] [address] Dr. Itzel Lerma Result 1 Comment Normal [facility] Comment on above: Result Comment: No S almonella or Shigella recovered. Performed By: #### C XSTOOL #### [facility] [address] [place] [address] Dr. Itzel Lerma Result Comment: No C ampylobacter species isolated. Salmonella/Shigella Screen Final report Normal [facility] Comment on above: Performed By: #### C XSTOOL #### [facility] [address] [address] [address] Itzel Lerma BNPon 11-24-2022 Natriuretic peptide B (Bld) [Mass/Vol] 1615.0 pg/mL Normal <=1,800.0 [facility] Comment on above: Performed By: #### O JESSE #### [facility] [address] [place] [address] Dr. Itzel Lerma CBC AUTO DIFFon 11-24-2022 BASO # 0.0 103/ul Normal 0.0-0.1 [facility] Comment on above: Performed By: #### C XSTOOL #### [facility] [address] [place] [address] Dr. Itzel Lerma Basophils/100 WBC (Bld) 0.5 % Normal 0.2-2.0 [facility] Comment on above: Performed By: #### C XSTOOL #### [facility] [address] [place] [address] Dr. Itzel Lerma EO # 0.1 103/ul Normal 0.0-0.7 [facility] Comment on above: Performed By: #### C XSTOOL #### [facility] [address] [place] [address] Dr. Itzel Lerma Eosinophils/100 WBC (Bld) 1.4 % Normal 0.9-7.0 [facility] Comment on above: Performed By: #### C XSTOOL #### [facility] [address] [place] [address] Dr. Itzel Lerma Erythrocyte distribution width (RBC) [Ratio] 16.1 % Critically high 11.0-15.0 [facility] Comment on above: Performed By: #### C XSTOOL #### [facility] [address] [place] [address] Dr. Itzel Lerma Hematocrit (Bld) [Volume fraction] 44.1 % Normal 42.0-54.0 [facility] Comment on above: Performed By: #### C XSTOOL #### [facility] [address] [place] [address] Dr. Itzel Lerma Hemoglobin (Bld) [Mass/Vol] 13.9 g/dL Critically low 14.0-18.0 [facility] Comment on above: Performed By: #### C XSTOOL #### [facility] [address] [place] [address] Dr. Itzel Lerma IG # 0.03 10e3/ul Normal 0.00-0.03 [facility] Comment on above: Performed By: #### C XSTOOL #### [facility] [address] [place] [address] Dr. Itzel Lerma IG % 0.5 % Normal 0.0-0.5 [facility] Comment on above: Performed By: #### C XSTOOL #### [facility] [address] [address] [address] Itzel Lerma LYMPH # 0.9 103/ul Critically low 1.2-3.8 [facility] Comment on above: Performed By: #### C XSTOOL #### [facility] [address] [address] [address] Itzel Lerma Lymphocytes/100 WBC (Bld) 14.4 % Critically low 20.5-60.0 [facility] Comment on above: Performed By: #### C XSTOOL #### [facility] [address] [address] [address] Itzel Lerma MANUAL DIFF REQ NO Normal [facility] Comment on above: Performed By: #### C XSTOOL #### [facility] [address] [place] [address] Dr. Itzel Lerma MCH (RBC) [Entitic mass] 27.5 pg Normal 25.9-34.0 [facility] Comment on above: Performed By: #### C XSTOOL #### [facility] [address] [place] [address] Dr. Itzel Lerma MCHC (RBC) [Mass/Vol] 31.5 g/dL Normal 29.9-35.2 [facility] Comment on above: Performed By: #### C XSTOOL #### [facility] [address] [place] [address] Dr. Itzel Lerma MCV (RBC) [Entitic vol] 87.3 fL Normal 80.0-94.0 [facility] Comment on above: Performed By: #### C XSTOOL #### [facility] [address] [address] [address] Itzel Lerma MONO # 0.7 103/ul Normal 0.3-0.8 [facility] Comment on above: Performed By: #### C XSTOOL #### [facility] [address] [place] [address] Dr. Itzel Lerma Monocytes/100 WBC (Bld) 10.6 % Normal 1.7-12.0 [facility] Comment on above: Performed By: #### C XSTOOL #### [facility] [address] [address] [address] Itzel Lerma NEUT # 4.6 103/ul Normal 1.4-6.5 [facility] Comment on above: Performed By: #### C XSTOOL #### [facility] [address] [address] [address] Itzel Lerma Neutrophils/100 WBC (Bld) 72.6 % Normal 43.0-75.0 [facility] Comment on above: Performed By: #### C XSTOOL #### [facility] [address] [place] [address] Dr. Itzel Lerma Platelet mean volume (Bld) [Entitic vol] 10.3 fL Normal 9.5-13.5 [facility] Comment on above: Performed By: #### C XSTOOL #### [facility] [address] [place] [address] Dr. Itzel Lerma PLT 279 103/ul Normal 150-450 [facility] Comment on above: Performed By: #### C XSTOOL #### [facility] [address] [place] [address] Dr. Itzel Lerma RBC 5.05 106/ul Normal 4.70-6.10 [facility] Comment on above: Performed By: #### C XSTOOL #### [facility] [address] [place] [address] Dr. Itzel Lerma WBC 6.3 103/ul Normal 4.0-11.0 [facility] Comment on above: Performed By: #### C XSTOOL #### [facility] [address] [place] [address] Dr. Itzel Lerma PROF CHEM 8 (BAS METB)on Anion gap [Moles/Vol] 15.8 mmol/L Normal [facility] Comment on above: Performed By: #### O JESSE #### [facility] [address] [place] [address] Dr. Itzel Lerma Calcium [Mass/Vol] 9.1 mg/dL Normal 8.5-10.1 [facility] Comment on above: Performed By: #### O JESSE #### [facility] [address] [place] [address] Dr. Itzel Lerma Chloride [Moles/Vol] 102 mmol/L Normal 98-107 [facility] Comment on above: Performed By: #### O JESSE #### [facility] [address] [place] [address] Dr. Itzel Lerma CO2 [Moles/Vol] 19.7 mmol/L Critically low 21.0-32.0 [facility] Comment on above: Performed By: #### O JESSE #### [facility] [address] [place] [address] Dr. Itzel Lerma Creatinine [Mass/Vol] 1.76 mg/dL Critically high 0.70-1.30 [facility] Comment on above: Performed By: #### O JESSE #### [facility] [address] [place] [address] Dr. Itzel Lerma EGFR-AF MOZAMBICAN 45 mL/min/1.73m2 Critically low >=60 [facility] Comment on above: Performed By: #### O JESSE #### [facility] [address] [place] [address] Dr. Itzel Lerma EGFR-NON AF MOZAMBICAN 37 mL/min/1.73m2 Critically low >=60 [facility] Comment on above: Performed By: #### O JESSE #### [facility] [address] [place] [address] Dr. Itzel Lerma Glucose [Mass/Vol] 139 mg/dL Critically high 74-106 [facility] Comment on above: Performed By: #### O JESSE #### [facility] [address] [place] [address] Dr. Itzel Lerma Potassium [Moles/Vol] 4.5 mmol/L Normal 3.5-5.1 [facility] Comment on above: Performed By: #### O JESSE #### [facility] [address] [place] [address] Dr. Itzel Lerma Sodium [Moles/Vol] 133 mmol/L Critically low 136-145 [facility] Comment on above: Performed By: #### O JESSE #### [facility] [address] [place] [address] Dr. Itzel Lerma Urea nitrogen [Mass/Vol] 53.0 mg/dL Critically high 7.0-18.0 [facility] Comment on above: Performed By: #### O JESSE #### [facility] [address] [place] [address] Dr. Itzel Lerma Urea nitrogen/Creatinine [Mass ratio] 30.1 mg/mg Normal [facility] Comment on above: Performed By: #### O JESSE #### [facility] [address] [place] [address] Dr. Itzel Lerma PROTIMEon 11-24-2022 INR Coag (PPP) [Relative time] 3.98 {INR} Normal [facility] Comment on above: Performed By: #### U A #### [facility] [address] [place] [address] Dr. Itzel Lerma INR GUIDELINES SEE BELOW Normal [facility] Comment on above: Result Comment: MIKAL RED INR: 2.0 - 3.0 CONDITIONS NOT LISTED BELOW 2.5 - 3.5 FOR PROSTHETIC HEART VALVE REPLACEMENT 2.5 - 3.5 RECURRENT THROMBOSIS Performed By: #### U A #### [facility] [address] [place] [address] Dr. Itzel Lerma PT Coag (PPP) [Time] 39.0 s Critically high 9.0-11.6 [facility] Comment on above: Performed By: #### U A #### [facility] [address] [place] [address] Dr. Itzel Lerma PTTon 11-24-2022 aPTT Coag (Bld) [Time] 44.8 s Critically high 22.3-36.2 [facility] Comment on above: Performed By: #### U A #### [facility] [address] [place] [address] Dr. Itzel Lerma XR KUB 1 VIEWon 11-24-2022 XR KUB 1 VIEW EXAM: XR KUB 1 VIEW HISTORY: Nasogastric tube in situ . Bowel obstruction. COMPARISON: Abdominal x-ray, 11/22/2022. TECHNIQUE: AP abdominal x-ray. FINDINGS: An NG tube has been removed since yesterday. There is improved gaseous distention of the colon with several additional gas-filled less prominent small bowel loops, also improved from yesterday. No pneumatosis or free air is seen. IMPRESSION: 1. Interval NG tube removal. 2. Improved gas distended loops of small bowel and colon since yesterday could reflect resolving ileus or partial obstruction. Electronically authenticated by: WILSON JOHN Date: 2022-11-24 07:43 Normal [facility] CBC AUTO DIFFon 11-23-2022 BASO # 0.0 103/ul Normal 0.0-0.1 [facility] Comment on above: Performed By: #### O SMO #### [facility] [address] [address] [address] Itzel Lerma Basophils/100 WBC (Bld) 0.3 % Normal 0.2-2.0 [facility] Comment on above: Performed By: #### O SMO #### [facility] [address] [address] [address] Itzel Lerma EO # 0.1 103/ul Normal 0.0-0.7 [facility] Comment on above: Performed By: #### O SMO #### [facility] [address] [address] [address] Itzel Lerma Eosinophils/100 WBC (Bld) 1.6 % Normal 0.9-7.0 [facility] Comment on above: Performed By: #### O SMO #### [facility] [address] [address] [address] Itzel Lerma Erythrocyte distribution width (RBC) [Ratio] 15.9 % Critically high 11.0-15.0 [facility] Comment on above: Performed By: #### O SMO #### [facility] [address] [place] [address] Dr. Itzel Lerma Hematocrit (Bld) [Volume fraction] 42.4 % Normal 42.0-54.0 [facility] Comment on above: Performed By: #### O SMO #### [facility] [address] [place] [address] Dr. Itzel Lerma Hemoglobin (Bld) [Mass/Vol] 13.1 g/dL Critically low 14.0-18.0 [facility] Comment on above: Performed By: #### O SMO #### [facility] [address] [place] [address] Dr. Itzel Lerma IG # 0.04 10e3/ul Critically high 0.00-0.03 [facility] Comment on above: Performed By: #### O SMO #### [facility] [address] [place] [address] Dr. Itzel Lerma IG % 0.7 % Critically high 0.0-0.5 [facility] Comment on above: Performed By: #### O SMO #### [facility] [address] [place] [address] Dr. Itzel Lerma LYMPH # 0.9 103/ul Critically low 1.2-3.8 [facility] Comment on above: Performed By: #### O SMO #### [facility] [address] [place] [address] Dr. Itzel Lerma Lymphocytes/100 WBC (Bld) 15.6 % Critically low 20.5-60.0 [facility] Comment on above: Performed By: #### O SMO #### [facility] [address] [place] [address] Dr. Itzel Lerma MANUAL DIFF REQ NO Normal [facility] Comment on above: Performed By: #### O SMO #### [facility] [address] [place] [address] Dr. Itzel Lerma MCH (RBC) [Entitic mass] 27.5 pg Normal 25.9-34.0 [facility] Comment on above: Performed By: #### O SMO #### [facility] [address] [place] [address] Dr. Itzel Lerma MCHC (RBC) [Mass/Vol] 30.9 g/dL Normal 29.9-35.2 [facility] Comment on above: Performed By: #### O SMO #### [facility] [address] [address] [address] Itzel Lerma MCV (RBC) [Entitic vol] 88.9 fL Normal 80.0-94.0 [facility] Comment on above: Performed By: #### O SMO #### [facility] [address] [address] [address] Itzel Lerma MONO # 0.7 103/ul Normal 0.3-0.8 [facility] Comment on above: Performed By: #### O SMO #### [facility] [address] [place] [address] Dr. Itzel Lerma Monocytes/100 WBC (Bld) 12.1 % Critically high 1.7-12.0 [facility] Comment on above: Performed By: #### O SMO #### [facility] [address] [place] [address] Dr. Itzel Lerma NEUT # 4.0 103/ul Normal 1.4-6.5 [facility] Comment on above: Performed By: #### O SMO #### [facility] [address] [place] [address] Dr. Itzel Lerma Neutrophils/100 WBC (Bld) 69.7 % Normal 43.0-75.0 [facility] Comment on above: Performed By: #### O SMO #### [facility] [address] [place] [address] Dr. Itzel Lerma Platelet mean volume (Bld) [Entitic vol] 10.6 fL Normal 9.5-13.5 [facility] Comment on above: Performed By: #### O SMO #### [facility] [address] [place] [address] Dr. Itzel Lerma PLT 200 103/ul Normal 150-450 [facility] Comment on above: Performed By: #### O SMO #### [facility] [address] [place] [address] Dr. Itzel Lerma RBC 4.77 106/ul Normal 4.70-6.10 [facility] Comment on above: Performed By: #### O SMO #### [facility] [address] [place] [address] Dr. Itzel Lerma WBC 5.8 103/ul Normal 4.0-11.0 [facility] Comment on above: Performed By: #### O SMO #### [facility] [address] [address] [address] Itzel Lerma PROF CHEM 8 (BAS METB)on Anion gap [Moles/Vol] 14.3 mmol/L Normal [facility] Comment on above: Performed By: #### O SMO #### [facility] [address] [place] [address] Dr. Itzel Lerma Calcium [Mass/Vol] 9.1 mg/dL Normal 8.5-10.1 [facility] Comment on above: Performed By: #### O SMO #### [facility] [address] [place] [address] Dr. Itzel Lerma Chloride [Moles/Vol] 102 mmol/L Normal 98-107 [facility] Comment on above: Performed By: #### O SMO #### [facility] [address] [place] [address] Dr. Itzel Lerma CO2 [Moles/Vol] 21.4 mmol/L Normal 21.0-32.0 [facility] Comment on above: Performed By: #### O SMO #### [facility] [address] [place] [address] Dr. Itzel Lerma Creatinine [Mass/Vol] 1.58 mg/dL Critically high 0.70-1.30 [facility] Comment on above: Performed By: #### O SMO #### [facility] [address] [place] [address] Dr. Itzel Lerma EGFR-AF MOZAMBICAN 51 mL/min/1.73m2 Critically low >=60 [facility] Comment on above: Performed By: #### O SMO #### [facility] [address] [place] [address] Dr. Itzel Lerma EGFR-NON AF MOZAMBICAN 42 mL/min/1.73m2 Critically low >=60 [facility] Comment on above: Performed By: #### O SMO #### [facility] [address] [place], [place] [id number] Dr. Itzel Lerma Glucose [Mass/Vol] 125 mg/dL Critically high 74-106 [facility] Comment on above: Performed By: #### O SMO #### [facility] [address] [address] [address] Itzel Lerma Potassium [Moles/Vol] 4.7 mmol/L Normal 3.5-5.1 [facility] Comment on above: Performed By: #### O SMO #### [facility] [address] [address] [address] Itzel Lerma Sodium [Moles/Vol] 133 mmol/L Critically low 136-145 [facility] Comment on above: Performed By: #### O SMO #### [facility] [address] [place] [address] Dr. Itzel Lerma Urea nitrogen [Mass/Vol] 45.0 mg/dL Critically high 7.0-18.0 [facility] Comment on above: Performed By: #### O SMO #### [facility] [address] [place] [address] Dr. Itzel Lerma Urea nitrogen/Creatinine [Mass ratio] 28.5 mg/mg Normal [facility] Comment on above: Performed By: #### O SMO #### [facility] [address] [place] [address] Dr. Itzel Lerma PROTIMEon 11-23-2022 INR Coag (PPP) [Relative time] 4.89 {INR} Critically high [facility] Comment on above: Performed By: #### P T #### [facility] [address] [place] [address] Dr. Itzel Lerma INR GUIDELINES SEE BELOW Normal [facility] Comment on above: Result Comment: MIKAL RED INR: 2.0 - 3.0 CONDITIONS NOT LISTED BELOW 2.5 - 3.5 FOR PROSTHETIC HEART VALVE REPLACEMENT 2.5 - 3.5 RECURRENT THROMBOSIS Performed By: #### P T #### [facility] [address] [place] [address] Dr. Itzel Lerma PT Coag (PPP) [Time] 47.4 s Critically high 9.0-11.6 [facility] Comment on above: Performed By: #### P T #### [facility] [address] [address] [address] Itzel Lerma CBC AUTO DIFFon 11-22-2022 BASO # 0.0 103/ul Normal 0.0-0.1 [facility] Comment on above: Performed By: #### C BC #### [facility] [address] [place] [address] Dr. Itzel Lerma Basophils/100 WBC (Bld) 0.4 % Normal 0.2-2.0 [facility] Comment on above: Performed By: #### C BC #### [facility] [address] [place] [address] Dr. Itzel Lerma EO # 0.1 103/ul Normal 0.0-0.7 [facility] Comment on above: Performed By: #### C BC #### [facility] [address] [place] [address] Dr. Itzel Lerma Eosinophils/100 WBC (Bld) 1.4 % Normal 0.9-7.0 [facility] Comment on above: Performed By: #### C BC #### [facility] [address] [place] [address] Dr. Itzel Lerma Erythrocyte distribution width (RBC) [Ratio] 16.3 % Critically high 11.0-15.0 [facility] Comment on above: Performed By: #### C BC #### [facility] [address] [place] [address] Dr. Itzel Lerma Hematocrit (Bld) [Volume fraction] 41.1 % Critically low 42.0-54.0 [facility] Comment on above: Performed By: #### C BC #### [facility] [address] [place] [address] Dr. Itzel Lerma Hemoglobin (Bld) [Mass/Vol] 12.5 g/dL Critically low 14.0-18.0 [facility] Comment on above: Performed By: #### C BC #### [facility] [address] [place] [address] Dr. Itzel Lerma IG # 0.03 10e3/ul Normal 0.00-0.03 [facility] Comment on above: Performed By: #### C BC #### [facility] [address] [place] [address] Dr. Itzel Lerma IG % 0.4 % Normal 0.0-0.5 [facility] Comment on above: Performed By: #### C BC #### [facility] [address] [place] [address] Dr. Itzel Lerma LYMPH # 1.0 103/ul Critically low 1.2-3.8 [facility] Comment on above: Performed By: #### C BC #### [facility] [address] [place] [address] Dr. Itzel Lerma Lymphocytes/100 WBC (Bld) 14.3 % Critically low 20.5-60.0 [facility] Comment on above: Performed By: #### C BC #### [facility] [address] [place] [address] Dr. Itzel Lerma MANUAL DIFF REQ NO Normal [facility] Comment on above: Performed By: #### C BC #### [facility] [address] [place] [address] Dr. Itzel Lerma MCH (RBC) [Entitic mass] 27.4 pg Normal 25.9-34.0 [facility] Comment on above: Performed By: #### C BC #### [facility] [address] [place] [address] Dr. Itzel Lerma MCHC (RBC) [Mass/Vol] 30.4 g/dL Normal 29.9-35.2 [facility] Comment on above: Performed By: #### C BC #### [facility] [address] [place] [address] Dr. Itzel Lerma MCV (RBC) [Entitic vol] 89.9 fL Normal 80.0-94.0 [facility] Comment on above: Performed By: #### C BC #### [facility] [address] [place] [address] Dr. Itzel Lerma MONO # 0.8 103/ul Normal 0.3-0.8 [facility] Comment on above: Performed By: #### C BC #### [facility] [address] [address] [address] Itzel Lerma Monocytes/100 WBC (Bld) 11.1 % Normal 1.7-12.0 [facility] Comment on above: Performed By: #### C BC #### [facility] [address] [address] [address] Itzel Lerma NEUT # 5.2 103/ul Normal 1.4-6.5 [facility] Comment on above: Performed By: #### C BC #### [facility] [address] [address] [address] Itzel Lerma Neutrophils/100 WBC (Bld) 72.4 % Normal 43.0-75.0 [facility] Comment on above: Performed By: #### C BC #### [facility] [address] [place] [address] Dr. Itzel Lerma Platelet mean volume (Bld) [Entitic vol] 10.1 fL Normal 9.5-13.5 [facility] Comment on above: Performed By: #### C BC #### [facility] [address] [address] [address] Itzel Lerma PLT 210 103/ul Normal 150-450 [facility] Comment on above: Performed By: #### C BC #### [facility] [address] [place] [address] Dr. Itzel Lerma RBC 4.57 106/ul Critically low 4.70-6.10 [facility] Comment on above: Performed By: #### C BC #### [facility] [address] [address] [address] Itzel Lerma WBC 7.2 103/ul Normal 4.0-11.0 [facility] Comment on above: Performed By: #### C BC #### [facility] [address] [place] [address] Dr. Itzel Lerma PROF CHEM 8 (BAS METB)on Anion gap [Moles/Vol] 13.8 mmol/L Normal [facility] Comment on above: Performed By: #### O SMO #### [facility] [address] [address] [address] Itzel Lerma Calcium [Mass/Vol] 8.7 mg/dL Normal 8.5-10.1 [facility] Comment on above: Performed By: #### O SMO #### [facility] [address] [address] [address] Itzel Lerma Chloride [Moles/Vol] 102 mmol/L Normal 98-107 [facility] Comment on above: Performed By: #### O SMO #### [facility] [address] [address] [address] Itzel Lerma CO2 [Moles/Vol] 20.6 mmol/L Critically low 21.0-32.0 [facility] Comment on above: Performed By: #### O SMO #### [facility] [address] [address] [address] Itzel Lerma Creatinine [Mass/Vol] 1.49 mg/dL Critically high 0.70-1.30 [facility] Comment on above: Performed By: #### O SMO #### [facility] [address] [address] [address] Itzel Lerma EGFR-AF MOZAMBICAN 55 mL/min/1.73m2 Critically low >=60 [facility] Comment on above: Performed By: #### O SMO #### [facility] [address] [address] [address] Itzel Lerma EGFR-NON AF MOZAMBICAN 45 mL/min/1.73m2 Critically low >=60 [facility] Comment on above: Performed By: #### O SMO #### [facility] [address] [address] [address] Itzel Lerma Glucose [Mass/Vol] 105 mg/dL Normal 74-106 [facility] Comment on above: Performed By: #### O SMO #### [facility] [address] [address] [address] Itzel Lerma Potassium [Moles/Vol] 4.4 mmol/L Normal 3.5-5.1 [facility] Comment on above: Performed By: #### O SMO #### [facility] [address] [address] [address] Itzel Lerma Sodium [Moles/Vol] 132 mmol/L Critically low 136-145 [facility] Comment on above: Performed By: #### O SMO #### [facility] [address] [address] [address] Itzel Lerma Urea nitrogen [Mass/Vol] 47.0 mg/dL Critically high 7.0-18.0 [facility] Comment on above: Performed By: #### O SMO #### [facility] [address] [place] [address] Dr. Itzel Lerma Urea nitrogen/Creatinine [Mass ratio] 31.5 mg/mg Normal [facility] Comment on above: Performed By: #### O SMO #### [facility] [address] [place] [address] Dr. Itzel Lerma PROTIMEon 11-22-2022 INR Coag (PPP) [Relative time] 5.94 {INR} Critically high [facility] Comment on above: Performed By: #### C BC #### [facility] [address] [place] [address] Dr. Itzel Lerma INR GUIDELINES SEE BELOW Normal [facility] Comment on above: Result Comment: MIKAL RED INR: 2.0 - 3.0 CONDITIONS NOT LISTED BELOW 2.5 - 3.5 FOR PROSTHETIC HEART VALVE REPLACEMENT 2.5 - 3.5 RECURRENT THROMBOSIS Performed By: #### C BC #### [facility] [address] [place] [address] Dr. Itzel Lerma PT Coag (PPP) [Time] 56.9 s Critically high 9.0-11.6 [facility] Comment on above: Performed By: #### C BC #### [facility] [address] [place] [address] Dr. Itzel Lerma XR KUB 1 VIEWon 11-22-2022 XR KUB 1 VIEW EXAMINATION: XR KUB 1 VIEW HISTORY: Nasogastric tube in situ COMPARISON: XR KUB 11/21/2022 FINDINGS: BOWEL GAS PATTERN: Nasogastric tube with tip in body of stomach. Persistent markedly dilated air-filled loops of bowel within mid and upper abdomen. CALCIFICATIONS: None significant. OTHER: Surgical clips within upper abdomen. IMPRESSION: 1. Stable nasogastric tube appearing in adequate position. 2. Persistent air filled markedly dilated loops of bowel; obstruction versus ileus. Findings are stable to slightly improved. Electronically authenticated by: DORIAN YODER Date: 2022-11-22 08:06 Normal [facility] CBC AUTO DIFFon 11-21-2022 BASO # 0.0 103/ul Normal 0.0-0.1 [facility] Comment on above: Performed By: #### O JESSE #### [facility] [address] [address] [address] Itzel Lerma Basophils/100 WBC (Bld) 0.1 % Critically low 0.2-2.0 [facility] Comment on above: Performed By: #### O JESSE #### [facility] [address] [address] [address] Itzel Lerma EO # 0.1 103/ul Normal 0.0-0.7 [facility] Comment on above: Performed By: #### O JESSE #### [facility] [address] [address] [address] Itzel Lerma Eosinophils/100 WBC (Bld) 1.5 % Normal 0.9-7.0 [facility] Comment on above: Performed By: #### O JESSE #### [facility] [address] [address] [address] Itzel Lerma Erythrocyte distribution width (RBC) [Ratio] 16.3 % Critically high 11.0-15.0 [facility] Comment on above: Performed By: #### O JESSE #### [facility] [address] [address] [address] Itzel Lerma Hematocrit (Bld) [Volume fraction] 42.6 % Normal 42.0-54.0 [facility] Comment on above: Performed By: #### O JESSE #### [facility] [address] [address] [address] Itzel Lerma Hemoglobin (Bld) [Mass/Vol] 13.3 g/dL Critically low 14.0-18.0 [facility] Comment on above: Performed By: #### O JESSE #### [facility] [address] [address] [address] Itzel Lerma IG # 0.02 10e3/ul Normal 0.00-0.03 [facility] Comment on above: Performed By: #### O JESSE #### [facility] [address] [address] [address] Itzel Lerma IG % 0.2 % Normal 0.0-0.5 [facility] Comment on above: Performed By: #### O JESSE #### [facility] [address] [place] [address] Dr. Itzel Lerma LYMPH # 1.0 103/ul Critically low 1.2-3.8 [facility] Comment on above: Performed By: #### O JESSE #### [facility] [address] [place] [address] Dr. Itzel Lerma Lymphocytes/100 WBC (Bld) 12.5 % Critically low 20.5-60.0 [facility] Comment on above: Performed By: #### O JESSE #### [facility] [address] [place] [address] Dr. Itzel eLrma MANUAL DIFF REQ NO Normal [facility] Comment on above: Performed By: #### O JESSE #### [facility] [address] [place] [address] Dr. Itzel Lerma MCH (RBC) [Entitic mass] 27.8 pg Normal 25.9-34.0 [facility] Comment on above: Performed By: #### O JESSE #### [facility] [address] [place] [address] Dr. Itzel Lerma MCHC (RBC) [Mass/Vol] 31.2 g/dL Normal 29.9-35.2 [facility] Comment on above: Performed By: #### O JESSE #### [facility] [address] [place] [address] Dr. Itzel Lerma MCV (RBC) [Entitic vol] 88.9 fL Normal 80.0-94.0 [facility] Comment on above: Performed By: #### O JESSE #### [facility] [address] [address] [address] Itzel Lerma MONO # 0.9 103/ul Critically high 0.3-0.8 [facility] Comment on above: Performed By: #### O JESSE #### [facility] [address] [address] [address] Itzel Lerma Monocytes/100 WBC (Bld) 10.6 % Normal 1.7-12.0 [facility] Comment on above: Performed By: #### O JESSE #### [facility] [address] [address] [address] Itzel Lerma NEUT # 6.1 103/ul Normal 1.4-6.5 [facility] Comment on above: Performed By: #### O JESSE #### [facility] [address] [place] [address] Dr. Itzle Lerma Neutrophils/100 WBC (Bld) 75.1 % Critically high 43.0-75.0 [facility] Comment on above: Performed By: #### O JESSE #### [facility] [address] [place] [address] Dr. Itzel Lerma Platelet mean volume (Bld) [Entitic vol] 9.9 fL Normal 9.5-13.5 [facility] Comment on above: Performed By: #### O JESSE #### [facility] [address] [place] [address] Dr. Itzel Lerma PLT 239 103/ul Normal 150-450 [facility] Comment on above: Performed By: #### O JESSE #### [facility] [address] [address] [address] Itzel Lerma RBC 4.79 106/ul Normal 4.70-6.10 [facility] Comment on above: Performed By: #### O JESSE #### [facility] [address] [place] [address] Dr. Itzel Lerma WBC 8.1 103/ul Normal 4.0-11.0 [facility] Comment on above: Performed By: #### O JESSE #### [facility] [address] [address] [address] Itzel Lerma PROF CHEM 8 (BAS METB)on Anion gap [Moles/Vol] 15.4 mmol/L Normal [facility] Comment on above: Performed By: #### U A #### [facility] [address] [address] [address] Itzel Lerma Calcium [Mass/Vol] 8.9 mg/dL Normal 8.5-10.1 [facility] Comment on above: Performed By: #### U A #### [facility] [address] [address] [address] Itzel Lerma Chloride [Moles/Vol] 102 mmol/L Normal 98-107 [facility] Comment on above: Performed By: #### U A #### [facility] [address] [place] [address] Dr. Itzel Lerma CO2 [Moles/Vol] 18.7 mmol/L Critically low 21.0-32.0 [facility] Comment on above: Performed By: #### U A #### [facility] [address] [address] [address] Itzel Lerma Creatinine [Mass/Vol] 1.47 mg/dL Critically high 0.70-1.30 [facility] Comment on above: Performed By: #### U A #### [facility] [address] [address] [address] Itzel Lerma EGFR-AF MOZAMBICAN 56 mL/min/1.73m2 Critically low >=60 [facility] Comment on above: Performed By: #### U A #### [facility] [address] [address] [address] Itezl Lerma EGFR-NON AF MOZAMBICAN 46 mL/min/1.73m2 Critically low >=60 [facility] Comment on above: Performed By: #### U A #### [facility] [address] [address] [address] Itzel Lerma Glucose [Mass/Vol] 103 mg/dL Normal 74-106 [facility] Comment on above: Performed By: #### U A #### [facility] [address] [address] [address] Itzel Lerma Potassium [Moles/Vol] 4.1 mmol/L Normal 3.5-5.1 [facility] Comment on above: Performed By: #### U A #### [facility] [address] [address] [address] Itzel Lerma Sodium [Moles/Vol] 132 mmol/L Critically low 136-145 [facility] Comment on above: Performed By: #### U A #### [facility] [address] [address] [address] Itzel Lerma Urea nitrogen [Mass/Vol] 47.0 mg/dL Critically high 7.0-18.0 [facility] Comment on above: Performed By: #### U A #### [facility] [address] [address] [address] Itzel Lerma Urea nitrogen/Creatinine [Mass ratio] 32.0 mg/mg Normal [facility] Comment on above: Performed By: #### U A #### [facility] [address] [address] [address] Itzel Lerma XR KUB 1 VIEWon 11-21-2022 XR KUB 1 VIEW EXAMINATION: XR KUB 1 VIEW HISTORY: Nasogastric tube in situ ; follow-up small bowel obstruction COMPARISON: XR KUB 11/20/2022 FINDINGS: BOWEL GAS PATTERN: Endotracheal tube with tip in body of stomach, side-port within the fundus. Air-filled distended loops of bowel within right upper quadrant.. CALCIFICATIONS: None significant. OTHER: Negative. No abnormal gaseous collections. IMPRESSION: 1. Endotracheal tube now in good position within the stomach. 2. Air-filled, distended loops of bowel within right upper quadrant; residual ileus versus partial obstruction. Overall improved appearance. Electronically authenticated by: DORIAN YODER Date: 2022-11-21 08:08 Normal [facility] CBC AUTO DIFFon 11-20-2022 BASO # 0.0 103/ul Normal 0.0-0.1 [facility] Comment on above: Performed By: #### O SMO #### [facility] [address] [place] [address] Dr. Itzel Lerma Basophils/100 WBC (Bld) 0.3 % Normal 0.2-2.0 [facility] Comment on above: Performed By: #### O SMO #### [facility] [address] [place] [address] Dr. Itzel Lerma EO # 0.1 103/ul Normal 0.0-0.7 [facility] Comment on above: Performed By: #### O SMO #### [facility] [address] [place] [address] Dr. Itzel Lerma Eosinophils/100 WBC (Bld) 0.8 % Critically low 0.9-7.0 [facility] Comment on above: Performed By: #### O SMO #### [facility] [address] [place] [address] Dr. Itzel Lerma Erythrocyte distribution width (RBC) [Ratio] 16.2 % Critically high 11.0-15.0 [facility] Comment on above: Performed By: #### O SMO #### [facility] [address] [place] [address] Dr. Itzel Lerma Hematocrit (Bld) [Volume fraction] 46.2 % Normal 42.0-54.0 [facility] Comment on above: Performed By: #### O SMO #### [facility] [address] [place] [address] Dr. Itzel Lerma Hemoglobin (Bld) [Mass/Vol] 14.2 g/dL Normal 14.0-18.0 [facility] Comment on above: Performed By: #### O SMO #### [facility] [address] [place] [address] Dr. Itzel Lerma IG # 0.04 10e3/ul Critically high 0.00-0.03 [facility] Comment on above: Performed By: #### O SMO #### [facility] [address] [place] [address] Dr. Itzel Lerma IG % 0.3 % Normal 0.0-0.5 [facility] Comment on above: Performed By: #### O SMO #### [facility] [address] [address] [address] Itzel Lerma LYMPH # 1.3 103/ul Normal 1.2-3.8 [facility] Comment on above: Performed By: #### O SMO #### [facility] [address] [place] [address] Dr. Itzel Lerma Lymphocytes/100 WBC (Bld) 10.4 % Critically low 20.5-60.0 [facility] Comment on above: Performed By: #### O SMO #### [facility] [address] [place] [address] Dr. Itzel Lerma MANUAL DIFF REQ NO Normal [facility] Comment on above: Performed By: #### O SMO #### [facility] [address] [place] [address] Dr. Itzel Lerma MCH (RBC) [Entitic mass] 27.6 pg Normal 25.9-34.0 [facility] Comment on above: Performed By: #### O SMO #### [facility] [address] [place] [address] Dr. Itzel Lerma MCHC (RBC) [Mass/Vol] 30.7 g/dL Normal 29.9-35.2 [facility] Comment on above: Performed By: #### O SMO #### [facility] [address] [place] [address] Dr. Itzel Lerma MCV (RBC) [Entitic vol] 89.9 fL Normal 80.0-94.0 [facility] Comment on above: Performed By: #### O SMO #### [facility] [address] [place] [address] Dr. Itzel Lerma MONO # 1.1 103/ul Critically high 0.3-0.8 [facility] Comment on above: Performed By: #### O SMO #### [facility] [address] [place] [address] Dr. Itzel Lerma Monocytes/100 WBC (Bld) 9.5 % Normal 1.7-12.0 [facility] Comment on above: Performed By: #### O SMO #### [facility] [address] [address] [address] Itzel Lerma NEUT # 9.5 103/ul Critically high 1.4-6.5 [facility] Comment on above: Performed By: #### O SMO #### [facility] [address] [address] [address] Itzel Lerma Neutrophils/100 WBC (Bld) 78.7 % Critically high 43.0-75.0 [facility] Comment on above: Performed By: #### O SMO #### [facility] [address] [address] [address] Itzel Lerma Platelet mean volume (Bld) [Entitic vol] 9.6 fL Normal 9.5-13.5 [facility] Comment on above: Performed By: #### O SMO #### [facility] [address] [place] [address] Dr. Itzel Lerma PLT 280 103/ul Normal 150-450 [facility] Comment on above: Performed By: #### O SMO #### [facility] [address] [place] [address] Dr. Itzel Lerma RBC 5.14 106/ul Normal 4.70-6.10 [facility] Comment on above: Performed By: #### O SMO #### [facility] [address] [address] [address] Itzel Lerma WBC 12.0 103/ul Critically high 4.0-11.0 [facility] Comment on above: Performed By: #### O SMO #### [facility] [address] [place] [address] Dr. Itzel Lerma LACTATE/LACTIC ACIDon 2022 Lactate [Moles/Vol] 0.9 mmol/L Normal 0.4-1.9 [facility] Comment on above: Performed By: #### C BC #### [facility] [address] [place] [address] Dr. Itzel Lerma PROF CHEM 8 (BAS METB)on Anion gap [Moles/Vol] 14.9 mmol/L Normal [facility] Comment on above: Performed By: #### B MP #### [facility] [address] [address] [address] Itzel Lerma Calcium [Mass/Vol] 9.7 mg/dL Normal 8.5-10.1 [facility] Comment on above: Performed By: #### B MP #### [facility] [address] [address] [address] Itzel Lerma Chloride [Moles/Vol] 99 mmol/L Normal 98-107 [facility] Comment on above: Performed By: #### B MP #### [facility] [address] [address] [address] Itzel Lerma CO2 [Moles/Vol] 22.7 mmol/L Normal 21.0-32.0 [facility] Comment on above: Performed By: #### B MP #### [facility] [address] [address] [address] Itzel Lerma Creatinine [Mass/Vol] 2.07 mg/dL Critically high 0.70-1.30 [facility] [facility] Comment on above: Performed By: #### B MP #### [facility] [address] [address] [address] Itzel Lerma EGFR-AF MOZAMBICAN 38 mL/min/1.73m2 Critically low >=60 [facility] Comment on above: Performed By: #### B MP #### [facility] [address] [address] [address] tIzel Lerma EGFR-NON AF MOZAMBICAN 31 mL/min/1.73m2 Critically low >=60 [facility] Comment on above: Performed By: #### B MP #### [facility] [address] [address] [address] Itzel Lerma Glucose [Mass/Vol] 144 mg/dL Critically high 74-106 [facility] Comment on above: Performed By: #### B MP #### [facility] [address] [address] [address] Itzel Lerma Potassium [Moles/Vol] 4.6 mmol/L Normal 3.5-5.1 [facility] Comment on above: Performed By: #### B MP #### [facility] [address] [address] [address] Itzel Lerma Sodium [Moles/Vol] 132 mmol/L Critically low 136-145 [facility] Comment on above: Performed By: #### B MP #### [facility] [address] [address] [address] Itzel Lerma Urea nitrogen [Mass/Vol] 52.0 mg/dL Critically high 7.0-18.0 [facility] Comment on above: Performed By: #### B MP #### [facility] [address] [address] [address] Itzel Lerma Urea nitrogen/Creatinine [Mass ratio] 25.1 mg/mg Normal [facility] Comment on above: Performed By: #### B MP #### [facility] [address] [place] [address] Dr. Itzel Lerma PROTIMEon 11-20-2022 INR Coag (PPP) [Relative time] 2.54 {INR} Normal [facility] Comment on above: Performed By: #### C BC #### [facility] [address] [place] [address] Dr. Itzel Lerma INR GUIDELINES SEE BELOW Normal [facility] Comment on above: Result Comment: MIKAL RED INR: 2.0 - 3.0 CONDITIONS NOT LISTED BELOW 2.5 - 3.5 FOR PROSTHETIC HEART VALVE REPLACEMENT 2.5 - 3.5 RECURRENT THROMBOSIS Performed By: #### C BC #### [facility] [address] [place] [address] Dr. Itzel Lerma PT Coag (PPP) [Time] 25.5 s Critically high 9.0-11.6 [facility] Comment on above: Performed By: #### C BC #### [facility] [address] [place] [address] Dr. Itzel Lerma XR KUB 1 VIEWon 11-20-2022 XR KUB 1 VIEW EXAMINATION: XR KUB 1 VIEW HISTORY: UNSPECIFIED ABDOMINAL PAIN COMPARISON: XR KUB 11/19/2022 FINDINGS: BOWEL GAS PATTERN: Nasogastric tube with tip in fundus and side port likely above the gastroesophageal junction. Air distended loops of small bowel up to 5.0 cm in diameter. Air-filled proximal colon with the cecum 10.5 cm in diameter. CALCIFICATIONS: None significant. OTHER: Surgical clips within left upper quadrant. Bowel sutures within midline low pelvis. IMPRESSION: 1. Nasogastric tube side port is likely above the gastroesophageal junction. Consider advancing at least 5 cm. 2. Numerous air-filled loops of bowel; distal bowel obstruction versus ileus; stable to slightly improved. Electronically authenticated by: DORIAN YODER Date: 2022-11-20 10:52 Normal [facility] CBC AUTO DIFFon 11-19-2022 BASO # 0.0 103/ul Normal 0.0-0.1 [facility] Comment on above: Performed By: #### O SMO #### [facility] [address] [place] [address] Dr. Itzel Lerma Basophils/100 WBC (Bld) 0.2 % Normal 0.2-2.0 [facility] Comment on above: Performed By: #### O SMO #### [facility] [address] [place] [address] Dr. Itzel Lerma EO # 0.1 103/ul Normal 0.0-0.7 [facility] Comment on above: Performed By: #### O SMO #### [facility] [address] [place] [address] Dr. Itzel Lerma Eosinophils/100 WBC (Bld) 1.1 % Normal 0.9-7.0 [facility] Comment on above: Performed By: #### O SMO #### [facility] [address] [place] [address] Dr. Itzel Lerma Erythrocyte distribution width (RBC) [Ratio] 16.3 % Critically high 11.0-15.0 [facility] Comment on above: Performed By: #### O SMO #### [facility] [address] [place] [address] Dr. Itzel Lerma Hematocrit (Bld) [Volume fraction] 47.9 % Normal 42.0-54.0 [facility] Comment on above: Performed By: #### O SMO #### [facility] [address] [place] [address] Dr. Itzel Lerma Hemoglobin (Bld) [Mass/Vol] 14.7 g/dL Normal 14.0-18.0 [facility] Comment on above: Performed By: #### O SMO #### [facility] [address] [place] [address] Dr. Itzel Lerma IG # 0.04 10e3/ul Critically high 0.00-0.03 [facility] Comment on above: Performed By: #### O SMO #### [facility] [address] [address] [address] Itzel Lerma IG % 0.4 % Normal 0.0-0.5 [facility] Comment on above: Performed By: #### O SMO #### [facility] [address] [place] [address] Dr. Itzel Lerma LYMPH # 0.9 103/ul Critically low 1.2-3.8 [facility] Comment on above: Performed By: #### O SMO #### [facility] [address] [place] [address] Dr. Itzel Lerma Lymphocytes/100 WBC (Bld) 9.7 % Critically low 20.5-60.0 [facility] Comment on above: Performed By: #### O SMO #### [facility] [address] [place] [address] Dr. Itzel Lerma MANUAL DIFF REQ NO Normal [facility] Comment on above: Performed By: #### O SMO #### [facility] [address] [place] [address] Dr. Itzel Lerma MCH (RBC) [Entitic mass] 27.4 pg Normal 25.9-34.0 [facility] Comment on above: Performed By: #### O SMO #### [facility] [address] [place] [address] Dr. Itzel Lerma MCHC (RBC) [Mass/Vol] 30.7 g/dL Normal 29.9-35.2 [facility] Comment on above: Performed By: #### O SMO #### [facility] [address] [place] [address] Dr. Itzel Lerma MCV (RBC) [Entitic vol] 89.2 fL Normal 80.0-94.0 [facility] Comment on above: Performed By: #### O SMO #### [facility] [address] [place] [address] Dr. Itzel Lerma MONO # 0.7 103/ul Normal 0.3-0.8 [facility] Comment on above: Performed By: #### O SMO #### [facility] [address] [place] [address] Dr. Itzel Lerma Monocytes/100 WBC (Bld) 7.9 % Normal 1.7-12.0 [facility] Comment on above: Performed By: #### O SMO #### [facility] [address] [place] [address] Dr. Itzel Lerma NEUT # 7.6 103/ul Critically high 1.4-6.5 [facility] Comment on above: Performed By: #### O SMO #### [facility] [address] [place] [address] Dr. Itzel Lerma Neutrophils/100 WBC (Bld) 80.7 % Critically high 43.0-75.0 [facility] Comment on above: Performed By: #### O SMO #### [facility] [address] [place] [address] Dr. Itzel Lerma Platelet mean volume (Bld) [Entitic vol] 10.0 fL Normal 9.5-13.5 [facility] Comment on above: Performed By: #### O SMO #### [facility] [address] [place] [address] Dr. Itzel Lerma PLT 276 103/ul Normal 150-450 [facility] Comment on above: Performed By: #### O SMO #### [facility] [address] [place] [address] Dr. Itzel Lerma RBC 5.37 106/ul Normal 4.70-6.10 [facility] Comment on above: Performed By: #### O SMO #### [facility] [address] [place] [address] Dr. Itzel Lerma WBC 9.4 103/ul Normal 4.0-11.0 [facility] Comment on above: Performed By: #### O [facility] #### [facility] [address] [address] ABD/PELVIS WO CONon 11-19 CT ABD/PELVIS WO CON EXAMINATION: CT ABD/PELVIS WO CON, 11/19/2022 6:21 PM EST HISTORY: Unspecified abdominal pain. Nausea, vomiting and diarrhea for 2 days. COMPARISON: 07/09/2022. TECHNIQUE: CT scan of the abdomen and pelvis was performed without IV contrast. CT dose reduction technique was used, including Automated Exposure Control. FINDINGS: Severe atherosclerotic calcifications of the included right coronary artery. Small layering left pleural effusion. Stable scattered hepatic cysts. Evidence of cholelithiasis. Contracted gallbladder. Allowing for the lack of intravenous contrast, the spleen, pancreas and the adrenal glands are unremarkable. Unremarkable kidneys. No enlarged lymph nodes within the abdomen. No enlarged lymph nodes within the pelvis. No ascites or focal intraperitoneal fluid collections. Prior subtotal colectomy. There is persistent small bowel dilatation with associated scattered air-fluid levels, unchanged. Prostatic enlargement. IMPRESSION: 1. Prior subtotal colectomy. Persistent diffuse small bowel dilatation. Mildly thickened small bowel loop within the right mid abdomen is present with adjacent mild mesenteric edema, which may be secondary to focal enteritis. There are decompressed small bowel loops noted within the left mid abdomen which raises possibility of an underlying partial bowel obstruction. 2. The gallbladder is contracted. Evidence of cholelithiasis. 3. Stable hepatic cysts. 4. Interval development of small layering left pleural effusion. 5. Prostatic enlargement. Electronically authenticated by: SHAR TREJO Date: 2022-11-19 19:32 Normal [facility] Covid-19 PCR (CVDTB)on 10-31 SARS-CoV-2 (COVID-19) RNA JUDY+probe Ql (Unsp spec) Not detected Normal NOT DETECTED [facility] Comment on above: Result Comment: When diagnostic testing is negative, the possibility of a false negative should be considered in the context of a patient's recent exposures and the presence of clinical signs and symptoms consistent with SARS-CoV-2. This test is not yet approved or cleared by the [place] FDA. When there are no FDA-approved or cleared tests available, and other criteria are met, FDA can make tests available under an emergency access mechanism called an Emergency Use Authorization (EUA). The EUA for this test is supported by the [place] of Health and Human Service's declaration that circumstances exist to justify the emergency use of in vitro diagnostics for the detection and/or diagnosis of the virus that causes COVID-19. This EUA will remain in effect for the duration of the COVID-19 declaration justifying emergency of IVDs, unless it is terminated or revoked by the FDA (after which the test may no longer be used). Performed By: #### U A #### [facility] [address] [place] [address] Dr. Itzel Lerma PROF CHEM 8 (BAS METB)on Anion gap [Moles/Vol] 10.2 mmol/L Normal [facility] Comment on above: Performed By: #### U A #### [facility] [address] [place] [address] Dr. Itzel Lerma Calcium [Mass/Vol] 9.8 mg/dL Normal 8.5-10.1 [facility] Comment on above: Performed By: #### U A #### [facility] [address] [place] [address] Dr. Itzel Lerma Chloride [Moles/Vol] 99 mmol/L Normal 98-107 [facility] Comment on above: Performed By: #### U A #### [facility] [address] [place] [address] Dr. Itzel Lerma CO2 [Moles/Vol] 27.4 mmol/L Normal 21.0-32.0 [facility] Comment on above: Performed By: #### U A #### [facility] [address] [place] [address] Dr. Itzel Lerma Creatinine [Mass/Vol] 2.02 mg/dL Critically high 0.70-1.30 [facility] Comment on above: Performed By: #### U A #### [facility] [address] [place] [address] Dr. Itzel Lerma EGFR-AF MOZAMBICAN 39 mL/min/1.73m2 Critically low >=60 [facility] Comment on above: Performed By: #### U A #### [facility] [address] [address] [address] Itzel Lerma EGFR-NON AF MOZAMBICAN 32 mL/min/1.73m2 Critically low >=60 [facility] Comment on above: Performed By: #### U A #### [facility] [address] [address] [address] Itzel Lerma Glucose [Mass/Vol] 148 mg/dL Critically high 74-106 [facility] Comment on above: Performed By: #### U A #### [facility] [address] [address] [address] Itzel Lerma Potassium [Moles/Vol] 5.6 mmol/L Critically high 3.5-5.1 [facility] Comment on above: Performed By: #### U A #### [facility] [address] [address] [address] Itzel Lerma Sodium [Moles/Vol] 131 mmol/L Critically low 136-145 [facility] Comment on above: Performed By: #### U A #### [facility] [address] [address] [address] Itzel Lerma Urea nitrogen [Mass/Vol] 44.0 mg/dL Critically high 7.0-18.0 [facility] Comment on above: Performed By: #### U A #### [facility] [address] [address] [address] Itzel Lerma Urea nitrogen/Creatinine [Mass ratio] 21.8 mg/mg Normal [facility] Comment on above: Performed By: #### U A #### [facility] [id number] Itzel Lerma XR KUB 1 VIEWon 11-19-2022 XR KUB 1 VIEW EXAM: XR KUB 1 VIEW HISTORY: Nasogastric tube in situ COMPARISON: None. TECHNIQUE: Single view FINDINGS: IMPRESSION: Single limited view of the abdomen. Enteric tube tip is approximately 6.2 cm below the diaphragm. Air-filled loops of large and small bowel Electronically authenticated by: SHAHZAD VILLALPANDO Date: 2022-11-19 20:24 Normal [facility] OSMOLALITYon 07-12-2022 Osmolality [Osmolality] 274 mosm/kg Critically low 280-301 [facility] Comment on above: Performed By: #### O SMO #### [facility] [address] [place] [address] Dr. Itzel Lerma CBC AUTO DIFFon 07-11-2022 BASO # 0.0 103/ul Normal 0.0-0.1 [facility] Comment on above: Performed By: #### O JESSE #### [facility] [address] [place] [address] Dr. Itzel Lerma Basophils/100 WBC (Bld) 0.3 % Normal 0.2-2.0 [facility] Comment on above: Performed By: #### O JESSE #### [facility] [address] [place] [address] Dr. Itzel Lerma EO # 0.1 103/ul Normal 0.0-0.7 [facility] Comment on above: Performed By: #### O JESSE #### [facility] [address] [place] [address] Dr. Itzel Lerma Eosinophils/100 WBC (Bld) 0.7 % Critically low 0.9-7.0 [facility] Comment on above: Performed By: #### O JESSE #### [facility] [address] [place] [address] Dr. Itzel Lerma Erythrocyte distribution width (RBC) [Ratio] 14.6 % Normal 11.0-15.0 [facility] Comment on above: Performed By: #### O JESSE #### [facility] [address] [place] [address] Dr. Itzel Lerma Hematocrit (Bld) [Volume fraction] 35.2 % Critically low 42.0-54.0 [facility] Comment on above: Performed By: #### O JESSE #### [facility] [address] [place] [address] Dr. Itzel Lerma Hemoglobin (Bld) [Mass/Vol] 11.4 g/dL Critically low 14.0-18.0 [facility] Comment on above: Performed By: #### O JESSE #### [facility] [address] [address] [address] Itzel Lerma IG # 0.04 10e3/ul Critically high 0.00-0.03 [facility] Comment on above: Performed By: #### O JESSE #### [facility] [address] [address] [address] Itzel Lerma IG % 0.4 % Normal 0.0-0.5 [facility] Comment on above: Performed By: #### O JESSE #### [facility] [address] [place] [address] Dr. Itzel Lerma LYMPH # 0.9 103/ul Critically low 1.2-3.8 [facility] Comment on above: Performed By: #### O JESSE #### [facility] [address] [place] [address] Dr. Itzel Lerma Lymphocytes/100 WBC (Bld) 10.4 % Critically low 20.5-60.0 [facility] Comment on above: Performed By: #### O JESSE #### [facility] [address] [place] [address] Dr. Itzel Lerma MANUAL DIFF REQ NO Normal [facility] Comment on above: Performed By: #### O JESSE #### [facility] [address] [place] [address] Dr. Itzel Lerma MCH (RBC) [Entitic mass] 29.1 pg Normal 25.9-34.0 [facility] Comment on above: Performed By: #### O JESSE #### [facility] [address] [place] [address] Dr. Itzel Lerma MCHC (RBC) [Mass/Vol] 32.4 g/dL Normal 29.9-35.2 [facility] Comment on above: Performed By: #### O JESSE #### [facility] [address] [place] [address] Dr. Itzel Lerma MCV (RBC) [Entitic vol] 89.8 fL Normal 80.0-94.0 [facility] Comment on above: Performed By: #### O JESSE #### [facility] [address] [address] [address] Itzel Lerma MONO # 1.0 103/ul Critically high 0.3-0.8 [facility] Comment on above: Performed By: #### O JESSE #### [facility] [address] [place] [address] Dr. Itzel Lerma Monocytes/100 WBC (Bld) 11.1 % Normal 1.7-12.0 [facility] Comment on above: Performed By: #### O JESSE #### [facility] [address] [place] [address] Dr. Itzel Lerma NEUT # 6.9 103/ul Critically high 1.4-6.5 [facility] Comment on above: Performed By: #### O JESSE #### [facility] [address] [place] [address] Dr. Itzel Lerma Neutrophils/100 WBC (Bld) 77.1 % Critically high 43.0-75.0 [facility] Comment on above: Performed By: #### O JESSE #### [facility] [address] [place] [address] Dr. Itzel Lerma Platelet mean volume (Bld) [Entitic vol] 9.5 fL Normal 9.5-13.5 [facility] Comment on above: Performed By: #### O JESSE #### [facility] [address] [place] [address] Dr. Itzel Lerma PLT 166 103/ul Normal 150-450 [facility] Comment on above: Performed By: #### O JESSE #### [facility] [address] [place] [address] Dr. Itzel Lerma RBC 3.92 106/ul Critically low 4.70-6.10 [facility] Comment on above: Performed By: #### O JESSE #### [facility] [address] [place] [address] Dr. Itzel Lerma WBC 9.0 103/ul Normal 4.0-11.0 [facility] Comment on above: Performed By: #### O JESSE #### [facility] [address] [place] [address] Dr. Itzel Lerma H PYLORI ANTIBODY IGGon 06-29 H. PYLORI IGG ABS 1.90 Index Value Critically high 0.00-0. 79 [facility] Comment on above: Result Comment: Nega tive <0.80 Equivocal 0.80 - 0.89 Positive >0.89 Performed By: #### H PYLLC #### [facility] [address] [place] [address] Dr. Itzel Lerma OCC BLD IMMUNOASSAYon 2021 OCCULT BLOOD Positive Abnormal NEGATIVE [facility] Comment on above: Performed By: #### O JESSE #### [facility] [address] [place] [address] Dr. Itzel Lerma OSMOLALITY URINEon Osmolality, Urine 252 mOsmol/kg Normal [facility] Comment on above: Result Comment: 24 h r : 300 - 900 Random: 50 - 1400 After 12hr fluid restriction: >850 Performed By: #### O JESSE #### [facility] [address] [place] [address] Dr. Itzel Lerma PROF 14(COMP METB)on 022 Albumin [Mass/Vol] 2.6 g/dL Critically low 3.4-5.0 [facility] Comment on above: Performed By: #### O SMO #### [facility] [address] [place] [address] Dr. Itzel Lerma Albumin/Globulin [Mass ratio] 0.6 {ratio} Normal [facility] Comment on above: Performed By: #### O SMO #### [facility] [address] [place] [address] Dr. Itzel Lerma ALP [Catalytic activity/Vol] 59 U/L Normal 46-116 [facility] Comment on above: Performed By: #### O SMO #### [facility] [address] [place] [address] Dr. Itzel Lerma ALT [Catalytic activity/Vol] 10 U/L Critically low 16-63 [facility] Comment on above: Performed By: #### O SMO #### [facility] [address] [place] [address] Dr. Itzel Lerma Anion gap [Moles/Vol] 14.3 mmol/L Normal [facility] Comment on above: Performed By: #### O SMO #### [facility] [address] [place] [address] Dr. Itzel Lerma AST [Catalytic activity/Vol] 12 U/L Critically low 15-37 [facility] Comment on above: Performed By: #### O SMO #### [facility] [address] [place] [address] Dr. Itzel Lerma Bilirubin [Mass/Vol] 0.3 mg/dL Normal 0.2-1.0 [facility] Comment on above: Performed By: #### O SMO #### [facility] [address] [place] [address] Dr. Itzel Lerma Calcium [Mass/Vol] 7.5 mg/dL Critically low 8.5-10.1 [facility] Comment on above: Performed By: #### O SMO #### [facility] [address] [place] [address] Dr. Itzel Lerma Chloride [Moles/Vol] 116 mmol/L Critically high 98-107 [facility] Comment on above: Performed By: #### O SMO #### [facility] [address] [place] [address] Dr. Itzel Lerma CO2 [Moles/Vol] 14.3 mmol/L Critically low 21.0-32.0 [facility] Comment on above: Performed By: #### O SMO #### [facility] [address] [place] [address] Dr. Itzel Lerma Creatinine [Mass/Vol] 1.38 mg/dL Critically high 0.70-1.30 [facility] Comment on above: Performed By: #### O SMO #### [facility] [address] [place] [address] Dr. Itzel Lerma EGFR-AF MOZAMBICAN 60 mL/min/1.73m2 Normal >=60 [facility] Comment on above: Performed By: #### O SMO #### [facility] [address] [place] [address] Dr. Itezl Lerma EGFR-NON AF MOZAMBICAN 49 mL/min/1.73m2 Critically low >=60 [facility] Comment on above: Performed By: #### O SMO #### [facility] [address] [place] [address] Dr. Itzel Lerma Globulin (S) [Mass/Vol] 4.1 g/dL Normal [facility] Comment on above: Performed By: #### O SMO #### [facility] [address] [address] [address] Itzel Lerma Glucose [Mass/Vol] 137 mg/dL Critically high 74-106 [facility] Comment on above: Performed By: #### O SMO #### [facility] [address] [place] [address] Dr. Itzel Lerma Potassium [Moles/Vol] 3.6 mmol/L Normal 3.5-5.1 [facility] Comment on above: Performed By: #### O SMO #### [facility] [address] [place] [address] Dr. Itzel Lerma Protein [Mass/Vol] 6.7 g/dL Normal 6.4-8.2 [facility] Comment on above: Performed By: #### O SMO #### [facility] [address] [place] [address] Dr. Itzel Lerma Sodium [Moles/Vol] 141 mmol/L Normal 136-145 [facility] Comment on above: Performed By: #### O SMO #### [facility] [address] [place] [address] Dr. Itzel Lerma Urea nitrogen [Mass/Vol] 25.0 mg/dL Critically high 7.0-18.0 [facility] Comment on above: Performed By: #### O SMO #### [facility] [address] [place] [address] Dr. Itzel Lerma Urea nitrogen/Creatinine [Mass ratio] 18.1 mg/mg Normal [facility] Comment on above: Performed By: #### O SMO #### [facility] [address] [place] [address] Dr. Itzel Lerma PROTIMEon 07-11-2022 INR Coag (PPP) [Relative time] 5.21 {INR} Critically high [facility] Comment on above: Performed By: #### O SMO #### [facility] [address] [place] [address] Dr. Itzel Lerma INR GUIDELINES SEE BELOW Normal [facility] Comment on above: Result Comment: MIKAL RED INR: 2.0 - 3.0 CONDITIONS NOT LISTED BELOW 2.5 - 3.5 FOR PROSTHETIC HEART VALVE REPLACEMENT 2.5 - 3.5 RECURRENT THROMBOSIS Performed By: #### O SMO #### [facility] [address] [place] [address] Dr. Itzel Lerma PT Coag (PPP) [Time] 50.5 s Critically high 9.0-11.6 [facility] Comment on above: Performed By: #### O SMO #### [facility] [address] [place] [address] Dr. Itzel Lerma CBC AUTO DIFFon 07-10-2022 BASO # 0.0 103/ul Normal 0.0-0.1 [facility] Comment on above: Performed By: #### U A #### [facility] [address] [place] [address] Dr. Itzel Lerma Basophils/100 WBC (Bld) 0.2 % Normal 0.2-2.0 [facility] Comment on above: Performed By: #### U A #### [facility] [address] [place] [address] Dr. Itzel Lerma EO # 0.1 103/ul Normal 0.0-0.7 [facility] Comment on above: Performed By: #### U A #### [facility] [address] [place] [address] Dr. Itzel Lerma Eosinophils/100 WBC (Bld) 0.4 % Critically low 0.9-7.0 [facility] Comment on above: Performed By: #### U A #### [facility] [address] [place] [address] Dr. Itzel Lerma Erythrocyte distribution width (RBC) [Ratio] 14.3 % Normal 11.0-15.0 [facility] Comment on above: Performed By: #### U A #### [facility] [address] [address] [address] Itzel Lerma Hematocrit (Bld) [Volume fraction] 38.2 % Critically low 42.0-54.0 [facility] Comment on above: Performed By: #### U A #### [facility] [address] [address] [address] Itzel Lerma Hemoglobin (Bld) [Mass/Vol] 12.5 g/dL Critically low 14.0-18.0 [facility] Comment on above: Performed By: #### U A #### [facility] [address] [address] [address] Itzel Lerma IG # 0.11 10e3/ul Critically high 0.00-0.03 [facility] Comment on above: Performed By: #### U A #### [facility] [address] [place] [address] Dr. Itzel Lerma IG % 0.7 % Critically high 0.0-0.5 [facility] Comment on above: Performed By: #### U A #### [facility] [address] [address] [address] Itzel Lerma LYMPH # 1.1 103/ul Critically low 1.2-3.8 [facility] Comment on above: Performed By: #### U A #### [facility] [address] [place] [address] Dr. Itzel Lerma Lymphocytes/100 WBC (Bld) 6.9 % Critically low 20.5-60.0 [facility] Comment on above: Performed By: #### U A #### [facility] [address] [place] [address] Dr. Itzel Lerma MANUAL DIFF REQ NO Normal [facility] Comment on above: Performed By: #### U A #### [facility] [address] [place] [address] Dr. Itzel Lerma MCH (RBC) [Entitic mass] 29.6 pg Normal 25.9-34.0 [facility] Comment on above: Performed By: #### U A #### [facility] [address] [address] [address] Itzel Lerma MCHC (RBC) [Mass/Vol] 32.7 g/dL Normal 29.9-35.2 [facility] Comment on above: Performed By: #### U A #### [facility] [address] [address] [address] Itzel Lerma MCV (RBC) [Entitic vol] 90.3 fL Normal 80.0-94.0 [facility] Comment on above: Performed By: #### U A #### [facility] [address] [address] [address] Itzel Lerma MONO # 1.2 103/ul Critically high 0.3-0.8 [facility] Comment on above: Performed By: #### U A #### [facility] [address] [place] [address] Dr. Itzel Lerma Monocytes/100 WBC (Bld) 8.1 % Normal 1.7-12.0 [facility] Comment on above: Performed By: #### U A #### [facility] [address] [address] [address] Itzel Lerma NEUT # 12.8 103/ul Critically high 1.4-6.5 [facility] Comment on above: Performed By: #### U A #### [facility] [address] [place] [address] Dr. Itzel Lerma Neutrophils/100 WBC (Bld) 83.7 % Critically high 43.0-75.0 [facility] Comment on above: Performed By: #### U A #### [facility] [address] [address] [address] Itzel Lerma Platelet mean volume (Bld) [Entitic vol] 9.5 fL Normal 9.5-13.5 [facility] Comment on above: Performed By: #### U A #### [facility] [address] [address] [address] Itzel Lerma PLT 197 103/ul Normal 150-450 [facility] Comment on above: Performed By: #### U A #### [facility] [address] [place], [place] [address] Dr. Itzel Lerma RBC 4.23 106/ul Critically low 4.70-6.10 [facility] Comment on above: Performed By: #### U A #### [facility] [address] [place], [place] [address] Dr. Itzel Lerma WBC 15.3 103/ul Critically high 4.0-11.0 [facility] Comment on above: Performed By: #### U A #### [facility] [address] [place], [place] [address] ABD/PELVIS WO CONon 07-10 CT ABD/PELVIS WO CON EXAMINATION: CT ABD/PELVIS WO CON, 07/09/2022 8:37 PM EDT HISTORY: UNSPECIFIED ABDOMINAL PAIN . Diarrhea and Vomiting. COMPARISON: CT abdomen and pelvis 08/12/2021. TECHNIQUE: CT scan of the abdomen and pelvis was performed without IV contrast. CT dose reduction technique was used, including Automated Exposure Control. FINDINGS: LOWER CHEST: Mild bibasilar atelectasis and/or scarring. Moderate atherosclerotic coronary artery calcification. LIVER: Several small cysts appear essentially stable. The largest in the right lobe measures 14 mm. GALLBLADDER AND BILIARY SYSTEM: Stable cholelithiasis with stones measuring up to 8 mm. SPLEEN: Normal. PANCREAS: Moderate diffuse fatty replacement. ADRENAL GLANDS: Normal. KIDNEYS AND URETERS: Mild cortical scarring of the left kidney. Kidneys otherwise appear unremarkable. VASCULATURE: Moderate atherosclerotic aortic/arterial calcification. RETROPERITONEUM AND LYMPH NODES: Normal, with no lymphadenopathy. GASTROINTESTINAL TRACT/MESENTERY: There are postsurgical changes consistent with a subtotal colectomy with an internal rectal anastomosis. The small bowel appears dilated at the anastomosis to 7.2 cm however this is essentially stable compared to a CT from 08/12/2021. The small bowel appears mildly to moderately dilated. For example in the right upper abdomen the small bowel measures 4.1 cm in diameter. No definite transition point is identified and similar findings are noted previously. The duodenum appears markedly distended measuring 7 cm which is increased compared to previous studies but tapers in the distal third portion. BLADDER: Normal. REPRODUCTIVE SYSTEM: The prostate gland is mildly enlarged at 5.5 cm transverse. BODY WALL: Normal. BONES: There is moderate diffuse osteopenia. This appears stable. There are moderate to severe multilevel degenerative changes of the thoracolumbar spine. There is no acute osseous abnormality. IMPRESSION: 1. Status post subtotal colectomy. There are multiple mildly to moderately dilated small bowel loops with air-fluid levels which appear similar to prior studies. This is suggestive of an ileus/enteritis and less likely small bowel obstruction but follow-up abdominal radiographs and/or small bowel series may be considered. 2. The duodenum appears markedly distended but tapers distally, suggestive of a focal ileus. 3. Cholelithiasis. 4. Prostatomegaly. Electronically authenticated by: DORIAN SOARES Date: 2022-07-09 22:32 Normal [facility] Covid-19 PCR ([facility])on 06-29 SARS-CoV-2 (COVID-19) RNA JUDY+probe Ql (Unsp spec) Not detected Normal NOT DETECTED [facility] Comment on above: Result Comment: When diagnostic testing is negative, the possibility of a false negative should be considered in the context of a patient's recent exposures and the presence of clinical signs and symptoms consistent with SARS-CoV-2. This test is not yet approved or cleared by the [place] FDA. When there are no FDA-approved or cleared tests available, and other criteria are met, FDA can make tests available under an emergency access mechanism called an Emergency Use Authorization (EUA). The EUA for this test is supported by the [place] of Health and Human Service's declaration that circumstances exist to justify the emergency use of in vitro diagnostics for the detection and/or diagnosis of the virus that causes COVID-19. This EUA will remain in effect for the duration of the COVID-19 declaration justifying emergency of IVDs, unless it is terminated or revoked by the FDA (after which the test may no longer be used). Performed By: #### O JESSE #### [facility] [address] [place] [address] Dr. Itzel Lerma GI PANEL (PCR)on 07-10-2022 Adenovirus F 40/41 Not detected Normal NOT DETECTED [facility] Comment on above: Performed By: #### O JESSE #### [facility] [address] [address] [address] Itzel Lerma Astrovirus Not detected Normal NOT DETECTED [facility] Comment on above: Performed By: #### O JESSE #### [facility] [address] [place] [address] Dr. Itzel Lerma C. Diff toxin A/B Not detected Normal NOT DETECTED [facility] Comment on above: Performed By: #### O JESSE #### [facility] [address] [place] [address] Dr. Itzel Lerma Campylobacter Not detected Normal NOT DETECTED [facility] Comment on above: Performed By: #### O JESSE #### [facility] [address] [place] [address] Dr. Itzel Lerma Cryptosporidium Not detected Normal NOT DETECTED [facility] Comment on above: Performed By: #### O JESSE #### [facility] [address] [place] [address] Dr. Itzel Lerma Cyclos. Cayetanensis Not detected Normal NOT DETECTED [facility] Comment on above: Performed By: #### O JESSE #### [facility] [address] [place] [address] Dr. Itzle Lerma E. Coli O157 Not Applicable Normal Not Applicable [facility] Comment on above: Performed By: #### O JESSE #### [facility] [address] [place] [address] Dr. Itzel Lerma E. histolytica Not detected Normal NOT DETECTED [facility] Comment on above: Performed By: #### O JESSE #### [facility] [address] [place] [address] Dr. Itzel Lerma EAEC Not detected Normal NOT DETECTED [facility] Comment on above: Performed By: #### O JESSE #### [facility] [address] [place] [address] Dr. Itzel Lerma EIEC Not detected Normal NOT DETECTED [facility] Comment on above: Performed By: #### O JESSE #### [facility] [address] [place] [address] Dr. Itzel Lerma EPEC Not detected Normal NOT DETECTED [facility] Comment on above: Performed By: #### O JSESE #### [facility] [address] [address] [address] Itzel Lerma ETEC Not detected Normal NOT DETECTED [facility] Comment on above: Performed By: #### O JESSE #### [facility] [address] [address] [address] Itzel Lerma G. Lamblia Not detected Normal NOT DETECTED [facility] Comment on above: Performed By: #### O JESSE #### [facility] [address] [address] [address] Itzel MCKEON CONTROLS PASSED Normal [facility] Comment on above: Performed By: #### O JESSE #### [facility] [address] [address] [address] Itzel GALVAN TAVO HEADER GI PANEL BACTERIA Normal [facility] Comment on above: Performed By: #### O JESSE #### [facility] [address] [place] [address] Dr. Itzel GALLOWAY ECOLI GI PANEL DIARRHEAGEN IC E.COLI / SHIGELLA Normal [facility] Comment on above: Performed By: #### O JESSE #### [facility] [address] [place] [address] Dr. Itzel GALLOWAY INFO SEE BELOW Normal [facility] Comment on above: Result Comment: EAEC - Enteroaggregative E. Coli EPEC- Enteropathogenic E. Coli ETEC- Enterotoxigenic E. Coli lt/st STEC- Shigella-like toxin-producing E. Coli stx1/stx2 EIEC- Shigella/Enteroinvasive E. Coli Performed By: #### O JESSE #### [facility] [address] [place] [address] Dr. Itzel GALLOWAY PARASITES GI PANEL PARASITES Normal [facility] Comment on above: Performed By: #### O JESSE #### [facility] [address] [place] [address] Dr. Itzel GALLOWAY VIRUS GI PANEL VIRUSES Normal [facility] Comment on above: Performed By: #### O JESSE #### [facility] [address] [place] [address] Dr. Itzel Lerma Norovirus GI/GII Not detected Normal NOT DETECTED [facility] Comment on above: Performed By: #### O JESSE #### [facility] [address] [place] [address] Dr. Itzel Lerma P. Shigelloides Not detected Normal NOT DETECTED [facility] Comment on above: Performed By: #### O JESSE #### [facility] [address] [place] [address] Dr. Itzel Lerma Rotavirus A Not detected Normal NOT DETECTED [facility] Comment on above: Performed By: #### O JESSE #### [facility] [address] [place] [address] Dr. Itzel Lerma Salmonella Not detected Normal NOT DETECTED [facility] Comment on above: Performed By: #### O JESSE #### [facility] [address] [place] [address] Dr. Itzel Lerma Sapovirus Not detected Normal NOT DETECTED [facility] Comment on above: Performed By: #### O JESSE #### [facility] [address] [place] [address] Dr. Itzel Lerma STEC Not detected Normal NOT DETECTED [facility] Comment on above: Performed By: #### O JESSE #### [facility] [address] [place] [address] Dr. Itzel Lerma Vibrio Not detected Normal NOT DETECTED [facility] Comment on above: Performed By: #### O JESSE #### [facility] [address] [place] [address] Dr. Itzel Lerma Vibrio Cholera Not detected Normal NOT DETECTED [facility] Comment on above: Performed By: #### O JESSE #### [facility] [address] [place] [address] Dr. Itzel Lerma Y. Enterocolitica Not detected Normal NOT DETECTED [facility] Comment on above: Performed By: #### O JESSE #### [facility] [address] [place] [address] Dr. Itzel Lerma PROF CHEM 8 (BAS METB)on Anion gap [Moles/Vol] 12.6 mmol/L Normal [facility] Comment on above: Performed By: #### O SMO #### [facility] [address] [address] [address] Itzel Lerma Calcium [Mass/Vol] 7.7 mg/dL Critically low 8.5-10.1 [facility] Comment on above: Performed By: #### O SMO #### [facility] [address] [place] [address] Dr. Itzel Lerma Chloride [Moles/Vol] 103 mmol/L Normal 98-107 [facility] Comment on above: Performed By: #### O SMO #### [facility] [address] [place] [address] Dr. Itzel Lerma CO2 [Moles/Vol] 16.4 mmol/L Critically low 21.0-32.0 [facility] Comment on above: Performed By: #### O SMO #### [facility] [address] [place] [address] Dr. Itzel Lerma Creatinine [Mass/Vol] 2.03 mg/dL Critically high 0.70-1.30 [facility] Comment on above: Performed By: #### O SMO #### [facility] [address] [place] [address] Dr. Itzel Lerma EGFR-AF MOZAMBICAN 38 mL/min/1.73m2 Critically low >=60 [facility] Comment on above: Performed By: #### O SMO #### [facility] [address] [place] [address] Dr. Itzel Lerma EGFR-NON AF MOZAMBICAN 32 mL/min/1.73m2 Critically low >=60 [facility] Comment on above: Performed By: #### O SMO #### [facility] [address] [place] [address] Dr. Itzel Lerma Glucose [Mass/Vol] 148 mg/dL Critically high 74-106 [facility] Comment on above: Performed By: #### O SMO #### [facility] [address] [place] [address] Dr. Itzel Lerma Potassium [Moles/Vol] 4.0 mmol/L Normal 3.5-5.1 [facility] Comment on above: Performed By: #### O SMO #### [facility] [address] [place] [address] Dr. Itzel Lerma Sodium [Moles/Vol] 128 mmol/L Critically low 136-145 [facility] Comment on above: Performed By: #### O SMO #### [facility] [address] [address] [address] Itzel Lerma Urea nitrogen [Mass/Vol] 50.0 mg/dL Critically high 7.0-18.0 [facility] Comment on above: Performed By: #### O SMO #### [facility] [address] [place] [address] Dr. Itzel Lerma Urea nitrogen/Creatinine [Mass ratio] 24.6 mg/mg Normal [facility] Comment on above: Performed By: #### O SMO #### [facility] [address] [place] [address] Dr. Itzel Lerma Anion gap [Moles/Vol] 14.3 mmol/L Normal [facility] Comment on above: Performed By: #### U A #### [facility] [address] [place] [address] Dr. Itzel Lerma Calcium [Mass/Vol] 7.8 mg/dL Critically low 8.5-10.1 [facility] Comment on above: Performed By: #### U A #### [facility] [address] [place] [address] Dr. Itzel Lerma Chloride [Moles/Vol] 101 mmol/L Normal 98-107 [facility] Comment on above: Performed By: #### U A #### [facility] [address] [place] [address] Dr. Itzel Lerma CO2 [Moles/Vol] 14.7 mmol/L Critically low 21.0-32.0 [facility] Comment on above: Performed By: #### U A #### [facility] [address] [place] [address] Dr. Itzel Lerma Creatinine [Mass/Vol] 2.01 mg/dL Critically high 0.70-1.30 [facility] Comment on above: Performed By: #### U A #### [facility] [address] [address] [address] Itzel Lerma EGFR-AF MOZAMBICAN 39 mL/min/1.73m2 Critically low >=60 [facility] Comment on above: Performed By: #### U A #### [facility] [address] [address] [address] Itzel Lerma EGFR-NON AF MOZAMBICAN 32 mL/min/1.73m2 Critically low >=60 [facility] Comment on above: Performed By: #### U A #### [facility] [address] [address] [address] Itzel Lerma Glucose [Mass/Vol] 152 mg/dL Critically high 74-106 [facility] Comment on above: Performed By: #### U A #### [facility] [address] [address] [address] Itzel Lerma Potassium [Moles/Vol] 4.0 mmol/L Normal 3.5-5.1 [facility] Comment on above: Performed By: #### U A #### [facility] [address] [address] [address] Itzel Lerma Sodium [Moles/Vol] 126 mmol/L Critically low 136-145 Th [facility] Comment on above: Performed By: #### U A #### [facility] [address] [address] [address] Itzel Lerma Urea nitrogen [Mass/Vol] 51.0 mg/dL Critically high 7.0-18.0 [facility] Comment on above: Performed By: #### U A #### [facility] [address] [address] [address] Itzel Lerma Urea nitrogen/Creatinine [Mass ratio] 25.4 mg/mg Normal [facility] Comment on above: Performed By: #### U A #### [facility] [address] [address] [address] Itzel Lerma PROTIMEon 07-10-2022 INR Coag (PPP) [Relative time] 4.72 {INR} Critically high [facility] Comment on above: Performed By: #### P T #### [facility] [address] [place] [address] Dr. Itzel Lerma INR GUIDELINES SEE BELOW Normal [facility] Comment on above: Result Comment: MIKAL RED INR: 2.0 - 3.0 CONDITIONS NOT LISTED BELOW 2.5 - 3.5 FOR PROSTHETIC HEART VALVE REPLACEMENT 2.5 - 3.5 RECURRENT THROMBOSIS Performed By: #### P T #### [facility] [address] [place] [address] Dr. Itzel Lerma PT Coag (PPP) [Time] 46.1 s Critically high 9.0-11.6 [facility] Comment on above: Performed By: #### P T #### [facility] [address] [place] [address] Dr. Itzel Lerma SODIUM RANDOM URINEon 2021 UR SODIUM <50 Normal 30-90 [facility] Comment on above: Performed By: #### O JESSE #### [facility] [address] [place] [address] Dr. Itzel Lerma UA RANDOMon 07-10-2022 Bilirubin Ql (U) Negative Normal NEGATIVE [facility] Comment on above: Performed By: #### U A #### [facility] [address] [place] [address] Dr. Itzel Lerma Clarity (U) CLEAR Normal CLEAR [facility] Comment on above: Performed By: #### U A #### [facility] [address] [place] [address] Dr. Itzel Lerma Color (U) LT. YELLOW Normal YELLOW [facility] Comment on above: Performed By: #### U A #### [facility] [address] [place] [address] Dr. Itzel Lerma Glucose Ql (U) Negative Normal NEGATIVE [facility] Comment on above: Performed By: #### U A #### [facility] [address] [place] [address] Dr. Itzel Lerma Hemoglobin Ql (U) Negative Normal NEGATIVE [facility] Comment on above: Performed By: #### U A #### [facility] [address] [place] [address] Dr. Itzel Lerma Ketones Ql (U) Negative Normal NEGATIVE [facility] Comment on above: Performed By: #### U A #### [facility] [address] [place] [address] Dr. Itzel Lerma LEUKOCYTES Negative Normal NEGATIVE [facility] Comment on above: Performed By: #### U A #### [facility] [address] [place] [address] Dr. Itzel Lerma Nitrite Ql (U) Negative Normal NEGATIVE [facility] Comment on above: Performed By: #### U A #### [facility] [address] [place] [address] Dr. Itzel Lerma pH (U) 6.0 [pH] Normal 5-9 [facility] Comment on above: Performed By: #### U A #### [facility] [address] [place] [address] Dr. Itzel Lerma SPEC GRAVITY 1.010 Normal 1.005-<=1.025 [facility] Comment on above: Performed By: #### U A #### [facility] [address] [place] [address] Dr. Itzel Lerma UA PROTEIN Negative Normal NEGATIVE/ TRACE [facility] Comment on above: Performed By: #### U A #### [facility] [address] [place] [address] Dr. Itzel Lerma Urobilinogen Qn (U) 0.2 {Reta'U}/dL Normal 0.2 - 1. 0 [facility] Comment on above: Performed By: #### U A #### [facility] [address] [place] [address] Dr. Itzel Lerma XR ABD FLAT UP_PA [place] 07-10 XR ABD FLAT UP_PA CH EXAMINATION: XR ABD FLAT UP_PA CH HISTORY: UNSPECIFIED ABDOMINAL PAIN , nausea, vomiting, diarrhea COMPARISON: No relevant comparison available. FINDINGS: LUNGS: No infiltrate, pneumothorax, or pleural effusion. MEDIASTINUM: No abnormal widening. BOWEL GAS PATTERN: Air and fluid-filled distended loops of bowel within the upper abdomen and pelvis with air-filled markedly dilated distal bowel, just proximal to site of anastomosis to mid sigmoid colon (as seen on recent CT study). FREE AIR: None. CALCIFICATIONS: None significant. BONES: No fracture or visible bone lesion. OTHER: Negative. IMPRESSION: 1. History of subtotal colectomy. Distended bowel on today's study is not significantly changed when compared to yesterday's CT study (allowing for differences in technique) and may represent ileus or distal obstruction. Follow-up recommended. Electronically authenticated by: DORIAN YODER Date: 2022-07-10 10:16 Normal [facility] CBC AUTO DIFFon 07-09-2022 BASO # 0.1 103/ul Normal 0.0-0.1 [facility] Comment on above: Performed By: #### O JESSE #### [facility] [address] [address] [address] Itzel Lerma Basophils/100 WBC (Bld) 0.2 % Normal 0.2-2.0 [facility] Comment on above: Performed By: #### O JESSE #### [facility] [address] [address] [address] Itzel Lerma EO # 0.0 103/ul Normal 0.0-0.7 [facility] Comment on above: Performed By: #### O JESSE #### [facility] [address] [address] [address] Itzel Lerma Eosinophils/100 WBC (Bld) 0.2 % Critically low 0.9-7.0 [facility] Comment on above: Performed By: #### O JESSE #### [facility] [address] [address] [address] Itzel Lerma Erythrocyte distribution width (RBC) [Ratio] 14.0 % Normal 11.0-15.0 [facility] Comment on above: Performed By: #### O JESSE #### [facility] [address] [address] [address] Itzel Lerma Hematocrit (Bld) [Volume fraction] 39.3 % Critically low 42.0-54.0 [facility] Comment on above: Performed By: #### O JESSE #### [facility] [address] [place] [address] Dr. Itzel Lerma Hemoglobin (Bld) [Mass/Vol] 13.2 g/dL Critically low 14.0-18.0 [facility] Comment on above: Performed By: #### O JESSE #### [facility] [address] [place] [address] Dr. Itzel Lerma IG # 0.20 10e3/ul Critically high 0.00-0.03 [facility] Comment on above: Performed By: #### O JESSE #### [facility] [address] [place] [address] Dr. Itzel Lerma IG % 0.9 % Critically high 0.0-0.5 [facility] Comment on above: Performed By: #### O JESSE #### [facility] [address] [place] [address] Dr. Itzel Lerma LYMPH # 1.3 103/ul Normal 1.2-3.8 [facility] Comment on above: Performed By: #### O JESSE #### [facility] [address] [place] [address] Dr. Itzel Lerma Lymphocytes/100 WBC (Bld) 5.8 % Critically low 20.5-60.0 [facility] Comment on above: Performed By: #### O JESSE #### [facility] [address] [place] [address] Dr. Itzel Lerma MANUAL DIFF REQ NO Normal [facility] Comment on above: Performed By: #### O JESSE #### [facility] [address] [place] [address] Dr. Itzel Lerma MCH (RBC) [Entitic mass] 29.7 pg Normal 25.9-34.0 [facility] Comment on above: Performed By: #### O JESSE #### [facility] [address] [place] [address] Dr. Itzel Lerma MCHC (RBC) [Mass/Vol] 33.6 g/dL Normal 29.9-35.2 [facility] Comment on above: Performed By: #### O JESSE #### [facility] [address] [place] [address] Dr. Itzel Lerma MCV (RBC) [Entitic vol] 88.3 fL Normal 80.0-94.0 [facility] Comment on above: Performed By: #### O JESSE #### [facility] [address] [place] [address] Dr. Itzel Lerma MONO # 1.3 103/ul Critically high 0.3-0.8 [facility] Comment on above: Performed By: #### O JESSE #### [facility] [address] [place] [address] Dr. Itzel Lerma Monocytes/100 WBC (Bld) 6.0 % Normal 1.7-12.0 [facility] Comment on above: Performed By: #### O JESSE #### [facility] [address] [place] [address] Dr. Itzel Lerma NEUT # 19.3 103/ul Critically high 1.4-6.5 [facility] Comment on above: Performed By: #### O JESSE #### [facility] [address] [place] [address] Dr. Itzel Lerma Neutrophils/100 WBC (Bld) 86.9 % Critically high 43.0-75.0 [facility] Comment on above: Performed By: #### O JESSE #### [facility] [address] [place] [address] Dr. Itzel Lerma Platelet mean volume (Bld) [Entitic vol] 9.2 fL Critically low 9.5-13.5 [facility] Comment on above: Performed By: #### O JESSE #### [facility] [address] [place] [address] Dr. Itzel Lerma PLT 246 103/ul Normal 150-450 [facility] Comment on above: Performed By: #### O JESSE #### [facility] [address] [place] [address] Dr. Itzel Lerma RBC 4.45 106/ul Critically low 4.70-6.10 [facility] Comment on above: Performed By: #### O JESSE #### [facility] [address] [address] [address] Itzel Lerma WBC 22.2 103/ul Critically high 4.0-11.0 [facility] Comment on above: Performed By: #### O JESSE #### [facility] [address] [place] [address] Dr. Itzel Lerma LACTATE/LACTIC ACIDon 2021 Lactate [Moles/Vol] 1.0 mmol/L Normal 0.4-1.9 [facility] Comment on above: Performed By: #### O SMO #### [facility] [address] [place] [address] Dr. Itzel Lerma PROF 14(COMP METB)on 022 Albumin [Mass/Vol] 3.0 g/dL Critically low 3.4-5.0 [facility] Comment on above: Performed By: #### C MP #### [facility] [address] [place] [address] Dr. Itzel Lerma Albumin/Globulin [Mass ratio] 0.6 {ratio} Normal [facility] Comment on above: Performed By: #### C MP #### [facility] [address] [place] [address] Dr. Itzel Lerma ALP [Catalytic activity/Vol] 90 U/L Normal 46-116 [facility] Comment on above: Performed By: #### C MP #### [facility] [address] [place] [address] Dr. Itzel Lerma ALT [Catalytic activity/Vol] 12 U/L Critically low 16-63 [facility] Comment on above: Performed By: #### C MP #### [facility] [address] [place] [address] Dr. Itzel Lerma Anion gap [Moles/Vol] 18.2 mmol/L Normal [facility] Comment on above: Performed By: #### C MP #### [facility] [address] [place] [address] Dr. Itzel Lerma AST [Catalytic activity/Vol] 17 U/L Normal 15-37 [facility] Comment on above: Performed By: #### C MP #### [facility] [address] [place] [address] Dr. Itzel Lerma Bilirubin [Mass/Vol] 0.8 mg/dL Normal 0.2-1.0 [facility] Comment on above: Performed By: #### C MP #### [facility] [address] [place] [address] Dr. Itzel Lerma Calcium [Mass/Vol] 7.9 mg/dL Critically low 8.5-10.1 [facility] Comment on above: Performed By: #### C MP #### [facility] [address] [place] [address] Dr. Itzel Lerma Chloride [Moles/Vol] 92 mmol/L Critically low 98-107 [facility] Comment on above: Performed By: #### C MP #### [facility] [address] [place] [address] Dr. Itzel Lerma CO2 [Moles/Vol] 14.0 mmol/L Critically low 21.0-32.0 [facility] Comment on above: Performed By: #### C MP #### [facility] [address] [place] [address] Dr. Itzel Lerma Creatinine [Mass/Vol] 2.74 mg/dL Critically high 0.70-1.30 [facility] Comment on above: Performed By: #### C MP #### [facility] [address] [place] [address] Dr. Itzel Lerma EGFR-AF MOZAMBICAN 27 mL/min/1.73m2 Critically low >=60 [facility] Comment on above: Performed By: #### C MP #### [facility] [address] [place] [address] Dr. Itzel Lerma EGFR-NON AF MOZAMBICAN 22 mL/min/1.73m2 Critically low >=60 [facility] Comment on above: Performed By: #### C MP #### [facility] [address] [place] [address] Dr. Itzel Lerma Globulin (S) [Mass/Vol] 4.9 g/dL Normal [facility] Comment on above: Performed By: #### C MP #### [facility] [address] [address] [address] Itzel Lerma Glucose [Mass/Vol] 169 mg/dL Critically high 74-106 [facility] Comment on above: Performed By: #### C MP #### [facility] [address] [address] [address] Itzel Lerma Potassium [Moles/Vol] 4.2 mmol/L Normal 3.5-5.1 [facility] Comment on above: Performed By: #### C MP #### [facility] [address] [address] [address] Itzel Lerma Protein [Mass/Vol] 7.9 g/dL Normal 6.4-8.2 [facility] Comment on above: Performed By: #### C MP #### [facility] [address] [address] [address] Itzel Lerma Sodium [Moles/Vol] 120 mmol/L Critically low 136-145 [facility] Comment on above: Performed By: #### C MP #### [facility] [address] [address] [address] Itzel Lerma Urea nitrogen [Mass/Vol] 69.0 mg/dL Critically high 7.0-18.0 [facility] Comment on above: Performed By: #### C MP #### [facility] [address] [address] [address] Itzel eLrma Urea nitrogen/Creatinine [Mass ratio] 25.2 mg/mg Normal [facility] Comment on above: Performed By: #### C MP #### [facility] [address] [address] [address] Itzel Lerma PROTIMEon 07-09-2022 INR Coag (PPP) [Relative time] 5.18 {INR} Critically high [facility] Comment on above: Performed By: #### U A #### [facility] [address] [address] [address] Itzel Lerma INR GUIDELINES SEE BELOW Normal [facility] Comment on above: Result Comment: MIKAL RED INR: 2.0 - 3.0 CONDITIONS NOT LISTED BELOW 2.5 - 3.5 FOR PROSTHETIC HEART VALVE REPLACEMENT 2.5 - 3.5 RECURRENT THROMBOSIS Performed By: #### U A #### [facility] [address] [address] [address] Itzel Lerma PT Coag (PPP) [Time] 50.2 s Critically high 9.0-11.6 [facility] Comment on above: Performed By: #### U A #### [facility] [address] [address] [address] Itzel Lerma PTTon 07-09-2022 aPTT Coag (Bld) [Time] 62.9 s Critically high 22.3-36.2 [facility] Comment on above: Performed By: #### U A #### [facility] [address] [place] [address] Dr. Itzel Lerma TSHon 07-09-2022 TSH 1.544 uIU/mL Normal 0.358-3.740 [facility] Comment on above: Performed By: #### O JESSE #### [facility] [address] [place] [address] Dr. Itzel Lerma Vital Signs Date Time Vital Sign Value Performing Clinician Facility 01-10-2023 13:11-040 Body height 172.72 cm MD Ivan Lopez Work Phone: [facility] 01-10-2023 13:11-040 Body temperature 97.8 [degF] MD Ivan Lopez Work Phone: [facility] 01-10-2023 13:11-040 Body weight 71.4 kg MD Ivan Lopez Work Phone: [facility] 01-10-2023 13:11-040 Diastolic blood pressure 84 mm[Hg] MD Ivan Lopez Work Phone: [facility] 01-10-2023 13:11-040 Heart rate 73 /min MD Ivan Lopez Work Phone: [facility] 01-10-2023 13:11-0400 Respiratory rate 20 /min MD Ivan Lopez Work Phone: [facility] 01-10-2023 13:11-0400 SaO2% (BldA) [Mass fraction] 99 % MD Ivan Lopez Work Phone: [facility] 01-10-2023 13:11-0400 Systolic blood pressure 142 mm[Hg] MD Ivan Lopez Work Phone: [facility] 05-23-2022 15:00-0400 Body height 172.72 cm Yves Juvenal Other [facility] Other 05-23-2022 15:00-0400 Body mass index (BMI) [Ratio] 25.09 kg/m2 Yves [employer] Other [facility] Other 05-23-2022 15:00-0400 Body weight 74.84 kg Yves [employer] Other [facility] Other 02-21-2022 15:00-0400 Body height 172.72 cm Yves [employer] Other [facility] Other 02-21-2022 15:00-0400 Body mass index (BMI) [Ratio] 26 kg/m2 Yves [employer] Other [facility] Other 02-21-2022 15:00-0400 Body weight 77.57 kg Yves [employer] Other [facility] Other 02-21-2022 15:00-0400 Diastolic blood pressure 81 mm[Hg] Yves Sanford Other [facility] Other 02-21-2022 15:00-0400 Systolic blood pressure 118 mm[Hg] Yves Sanford Other [facility] Other 11-22-2021 14:30-0500 Body height 172.72 cm Yves Sanford Other [facility] Other 11-22-2021 14:30-0500 Body mass index (BMI) [Ratio] 26.76 kg/m2 Yves Sanford Other [facility] Other 11-22-2021 14:30-0500 Body weight 79.83 kg Yves Sanford Other [facility] Other 11-22-2021 14:30-0500 Diastolic blood pressure 70 mm[Hg] Yves Sanford Other [facility] Other 11-22-2021 14:30-0500 Systolic blood pressure 121 mm[Hg] Yves Sanford Other [facility] Other Encounters Encounter Date Encounter Type Care Provider Facility Start: 01-10-2023 End: 01-10-2023 Emergency department patient visit Ajit Rivero Facility:[facility] Start: 01-10-2023 End: 01-10-2023 Emergency department patient visit MD Ivan Lopez Work Phone: [facility] Work Phone: Start: 11-24-2022 End: 11-24-[address] DOCTOR CARDENAS Facility:[facility] Start: 11-19-2022 End: 11-23-2022 Evaluation and management of inpatient DR DOCTOR CARDENAS Facility:[facility] Start: 10-29-2022 End: 10-29-2022 ambulatory Yves Sanford Other [facility] Other Start: 10-29-2022 Telephone encounter Yves Zarate ck [facility] [employer] [facility] Start: 07-11-2022 ambulatory Facility:[facility] Start: 07-10-2022 End: 07-11-[address] DOCTOR CARDENAS Facility:[facility] Start: 05-23-2022 End: 05-23-2022 ambulatory Yves Sanford Other [facility] Other Start: 05-23-2022 Office outpatient visit 15 minutes Yves Sanford [facility] Start: 02-21-2022 End: 02-21-2022 ambulatory Yves Sanford Other [facility] Other Start: 02-21-2022 Office outpatient visit 15 minutes Yves Sanford [facility] Start: 11-22-2021 End: 11-22-2021 ambulatory Yves Sanford Other [facility] Other Start: 11-22-2021 Office outpatient ne w 45 minutes Yves Sanford [facility] Procedures Date Procedure Procedure Detail Performing Clinician Start: 01-10-2023 CT of head without contrast MD Ivan Lopez Work Phone: Start: 07-10-[address] DOCTOR CARDENAS Comment on above: Performed By: #### U A #### [facility] [address] [place] [address] Dr. Itzel Lerma Plan of Treatment Date Care Activity Detail Author Patient Education Head Injury in Adults ( [place]) [facility] Work Phone: Patient referral [facility] Work Phone: Payers Date Payer Category Payer Self-pay [id number] 2019 Unknown [id number] 2.. [id number] 1958 Medicare [id number] 1940 Unknown [id number] 1940 Unknown [id number] 1940 Unknown [id number] Medicare Medicare Outpatient [id number] Unknown [employer] [id number] Unknown [id number] Social History Date Type Detail Facility Sex Assigned At [facility] Other Start: [facility]10[facility]23 [facility] Start: 1940 Sex Assigned At Male [facility] Evaluation note 05-23-2022 Note Date & Type Note Facility 05-23-2022 Evaluation note Encounter Date Diagnosis Assessment Notes Apr, Diarrhea (ICD-10 - R19.7) patient states does not seem to bad patient does use the imodium as needed Apr, Nausea (ICD-10 - R11.0) will start zofran [facility] Other Evaluation note 02-21-2022 Note Date & Type Note Facility 02-21-2022 Evaluation note Encounter Date Diagnosis Assessment Notes January, Weight loss (ICD-10 - R63.4) January, Diarrhea (ICD-10 - R19.7) Start Imodium every morning Encouraged low fodmap diet. Education given to patient again. 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) January, Frequent bowel movements (ICD-10 - R19.4) [facility] Other Evaluation note 11-22-2021 Note Date & Type Note Facility 11-22-2021 Evaluation note Encounter Date Diagnosis Assessment Notes Oct, Weight loss (ICD-10 - R63.4) OBTAIN RECORDS FROM [facility] INPT STAY COPY OF LOW FODMAP DIET GIVEN TO PT RTO 3 MONTHS Oct, Diarrhea (ICD-10 - R19.7) [facility] Other Evaluation note Note Date & Type Note Facility Evaluation note No assessment information availa [facility] Work Phone: Evaluation note Note Date & Type Note Facility Evaluation note No Information [facility] Other History general Narrative - Reported Note Date & Type Note Facility History general Narrative - Reported Type Surgical History bowel resection [facility] Other Reason for visit Narrative Note Date & Type Note Facility Reason for visit Narrative REFERRED BY Trinidad LOPEZ FOR WEIGHT LOSS. PT DOES TAKE MEDICATIONS, HOWEVER HE DOES NOT RECALL NAMES OR DOSAGES OR HAVE A LIST TO REVIEW, (REFERRAL NOTE RECEIVED) [facility] Other Chief Complaint and Reason for Visit Chief Complaint fall Advance Directives No Advanced Directives Records Found Advance Directive Response Recorded Date/ Time Advance Directives No November 01, 2021 10:30am Summary Purpose Family History No Family History Records FoundNo Family History Records FoundNo Family History Records Found Additional Source Comments REASON FOR VISIT (unrecogniz ed section and content) PATIENT HERE FOR 3 MONTH FOL LOW UP TO WEIGHT LOSS. PATIENT WAS TO FOLLOW FODMAP DIET.PATIENT HERE FOR 3 MONTH FOLLOW UP TO DIARRHEA. PATENT WAS TO START IMODIUM., PATIENT DOES NOT KNOW NAMES OF MEDICATIONS HE IS ON.[facility] Care Teams (unrecognized sec tion and content) Team Status: Active Member Role Status Dates Ivan Lopez MD Primary Care Provider Active Team Status: Inactive Member Role Status Dates Ivan Lopez MD Primary Care Provider Active Ajit Rivero APRN Emergency Provider Active Goals (unrecognized section and content) Goals may be documented in a n alternate section (unrecognized sect ion and content) No Status Records FoundNo Status Records FoundNo Status Records Found INFORMATION SOURCE (unrecogn ized section and content) DATE CREATED AUTHOR 02/12/2023 [facility] DATE CREATED AUTHOR 'S ORGANIZ ATION 03/18/2023 [facility] DATE CREATED AUTHOR AUTHOR'S DANIEL PERALTA 01/27/2024 [facility] FOR RECORDS PERTAINING TO PATIENTS WHO ARE OR HAVE BEEN ENROLLED IN A CHEMICAL DEPENDENCY/SUBSTANCEABUSE PROGRAM, SOME INFORMATION MAY BE OMITTED. This clinical summary was aggregated from multiple sources. Caution should be exercised in using it in the provision of clinical care. This summary normalizes information from multiple sources, and as a consequence, information in this document may materially change the coding, format and clinical context of patient data. In addition, data may be omitted in some cases. CLINICAL DECISIONS SHOULD BE BASED ON THE PRIMARY CLINICAL RECORDS. [facility] [employer] [facility]. provides no warranty or guarantee of the accuracy or completeness of information in this document.
--- NOTE | 2024-05-30 11:52 | ECG_ITS ---
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: : 1940 Requested By: Order Number: [id number] Reading MD: BENITEZ PARKER Measurements Intervals [place] Rate: 108 P: -11859 CO: -02935 QRS: -63 QRSD: 104 T: 53 QT: 348 QTc: 412 Interpretive Statements 54341 Atrial fibrillation with rapid ventricular response 2440 Incomplete right bundle branch block 3114 Cannot rule out anterior myocardial infarction, age undetermined 3634 Inferior myocardial infarction, age undetermined [address] depression, probably digitalis effect 8102 Low QRS voltage in chest leads 9150 abnormal ECG Electronically Signed On 05-31-2024 7:44:49 EDT by BENITEZ PARKER
[2024-05-30 12:00] LABS: Hematocrit 39.2 % (42.0-54.0); Hemoglobin 12.7 g/dL (14.0-18.0); Mean Corpuscular HGB Conc 32.4 g/dL (29.9-35.2); Mean Corpuscular Hemoglobin 31.8 pg (25.9-34.0); Mean Corpuscular Volume 98.2 fL (80.0-94.0); Mean Platelet Volume 10.6 fL (9.5-13.5); Platelet Count 168 10^3/uL (150-450); Red Blood Count 3.99 10^6/uL (4.70-6.10); Red Cell Distribution Width 14.9 % (11.0-15.0); White Blood Count 9.5 10^3/uL (4.0-11.0)
--- NOTE | 2024-05-30 12:04 | ED.BACK1 ---
HPI HPI - Back Pain/Injury General Chief Complaint: Back Pain/Injury Stated Complaint: BACK PAIN Time Seen by Provider: 05/30/24 11:58 Source: patient and family Mode of arrival: Wheelchair Limitations: no limitations History of Present Illness HPI Narrative: 84-year-old male here for evaluation of low back pain. He lives independently but his daughter is here with him. He has not had any trauma injury or previous surgery. The pain does not radiate to his legs or buttocks. Does not have discomfort in his lower extremities. He scalp large abdominal incision that he said was repaired at this hospital after a major accident. He has not had any abdominal pain. He has not had any fever shakes or chills. No vomiting or diarrhea. No history of kidney stones. He has not had any difficulty recently with blood in his urine. Related Data Home Medications ?Medication ?Instructions ?Recorded ?Confirmed atorvastatin 10 mg tablet 10 mg PO QPM 03/14/23 05/30/24 empagliflozin 25 mg tablet 12.5 mg PO DAILY 03/14/23 05/30/24 finasteride 5 mg tablet 5 mg PO DAILY 03/14/23 05/30/24 metoprolol succinate 100 mg 100 mg PO DAILY 03/14/23 05/30/24 capsule sprinkle, ext. release 24 hr (K[place]spargo Sprinkle) pantoprazole 40 mg tablet,delayed 40 mg PO DAILY 03/14/23 05/30/24 release spironolactone 25 mg tablet 25 mg PO QAM 03/14/23 05/30/24 (Aldactone) tamsulosin 0.4 mg capsule 0.4 mg PO Q24H 03/14/23 05/30/24 warfarin 2.5 mg tablet 2.5 mg PO .COMPLEX 03/14/23 05/30/24 warfarin 5 mg tablet 5 mg PO .COMPLEX 03/14/23 05/30/24 brimonidine 0.2 %-timolol 0.5 % 1 drp ophthalmic (eye) QAM 05/30/24 05/30/24 eye drops latanoprost 0.005 % eye drops 1 drp ophthalmic (eye) QPM 05/30/24 05/30/24 levothyroxine 50 mcg tablet 50 mcg PO DAILY 05/30/24 05/30/24 (Euthyrox) metoclopramide HCl 10 mg tablet 10 mg PO BID 05/30/24 05/30/24 sacubitril 24 mg-valsartan 26 mg 1 tab PO BID 05/30/24 05/30/24 tablet (Entresto) Allergies Allergy/AdvReac Type Severity Reaction Status Date / Time ondansetron [From Zofran] AdvReac Mild Verified 07/05/23 14:42 Opioid HPI Opioid Management Most Recent Opioid Data: Last Pain Scale 4 05/30/24 14:34 Last ED Pain Assessment 05/30/24 14:34 [facility] Medical History (Updated 05/30/24 @ 15:48 by Charles Rosenthal MD) Glaucoma ?H40.9 - Unspecified glaucoma (ICD-10) Gastroparesis ?K31.84 - Gastroparesis (ICD-10) Ileus following gastrointestinal surgery ?K91.89 - Other postprocedural complications and disorders of digestive system (ICD-10) ?K56.7 - Ileus, unspecified (ICD-10) 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 Examining the back the pain is in the low midline area. There is no evidence of shingles or other skin lesions. No tenderness over the renal area. No bruising or ecchymosis. In the supine position his abdomen has a large midline incision but there is good bowel sounds. There is no pulsatile masses. There is strong femoral pulses bilaterally. His extremities show no evidence of asymmetric muscle atrophy or abnormality. His reflexes are symmetrical. There is no loss of sensation. Constitutional Vital Signs, click to edit/add: Last Vital Signs Temp 97.7 F 05/30/24 11:15 Pulse 104 H 05/30/24 13:10 Resp 8 L 05/30/24 13:10 BP 92/56 05/30/24 13:00 Pulse Ox 99 05/30/24 12:00 O2 Del Method Room Air 05/30/24 11:15 Course Vital Signs Vital signs: Vital Signs Temperature 97.7 F 05/30/24 11:15 Pulse Rate 104 H 05/30/24 11:15 Respiratory Rate 22 H 05/30/24 11:15 Blood Pressure 85/62 L 05/30/24 11:15 Pulse Oximetry 99 05/30/24 11:15 Oxygen Delivery Method Room Air 05/30/24 11:15 Temperature 97.7 F 05/30/24 11:15 Pulse Rate 104 H 05/30/24 13:10 Respiratory Rate 8 L 05/30/24 13:10 Blood Pressure 92/56 05/30/24 13:00 Pulse Oximetry 99 05/30/24 12:00 Oxygen Delivery Method Room Air 05/30/24 11:15 MDM - Back Pain/Injury MDM Narrative Medical decision making narrative: There is a delay getting CT imaging because of staff insufficiency. 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 The CT scan shows moderate to severe spinal stenosis at L3-L4/L4-L5. No other gross abnormalities were noted. He has asymptomatic gallstones and chronic dilation of the bowel which he is well aware of and has dealt with. His symptoms today are most consistent with lumbar stenosis. He does not have any radiculopathy or weakness to the extremities. He is at fall risk and is on blood thinners. This should be discussed with his primary care doctor. They were given a copy of this report. He will be placed on prednisone and nighttime [place] and low-dose. He was encouraged to use his walker and cane at all times to prevent severe falls Lab Data Labs: Lab Results 05/30/24 05/30/24 Range/Units 11:45 13:30 WBC 9.5 (4.0-11.0) 10^3/uL RBC 3.99 L (4.70-6.10) 10^6/uL Hgb 12.7 L (14.0-18.0) g/dL Hct 39.2 L (42.0-54.0) % MCV 98.2 H (80.0-94.0) fL MCH 31.8 (25.9-34.0) pg MCHC 32.4 (29.9-35.2) g/dL RDW 14.9 (11.0-15.0) % Plt Count 168 (150-450) 10^3/uL MPV 10.6 (9.5-13.5) fL Seg Neuts % (Manual) 84.0 H (43.0-75.0) Lymphocytes % (Manual) 12.0 L (20.5-60.0) % Monocytes % (Manual) 2.0 (1.7-12.0) % Eosinophils % (Manual) 0.0 L (0.9-7.0) % Basophils % (Manual) 0.0 L (0.2-2.0) % Neutrophils # (Manual) 7.98 H (1.4-6.5) 10^3/uL Lymphocytes # (Manual) 1.14 L (1.20-3.80) 10^3/uL Monocytes # (Manual) 0.19 L (0.30-0.80) 10^3/uL Eosinophils # (Manual) 0.00 (0.00-0.70) 10^3/uL Basophils # (Manual) 0.00 (0.00-0.10) 10^3/uL Sodium 130 L (136-145) mmol/L Potassium 4.4 (3.5-5.1) mmol/L Chloride 100 (98-107) mmol/L Carbon Dioxide 20.0 L (21.0-32.0) mmol/L Anion Gap 14.4 BUN 32.0 H (7.0-18.0) mg/dL Creatinine 1.61 H (0.70-1.30) mg/dL Est GFR ( Amer) 50 L (>=60) Est GFR (Non-Af Amer) 41 L (>=60) BUN/Creatinine Ratio 19.9 Glucose 189 H (74-106) mg/dL Calcium 8.4 L (8.5-10.1) mg/dL Total Bilirubin 0.9 (0.2-1.0) mg/dL AST 26 (15-37) U/L ALT 19 (16-63) U/L Alkaline Phosphatase 85 (46-116) U/L Total Protein 7.2 (6.4-8.2) g/dL Albumin 2.6 L (3.4-5.0) g/dL Globulin 4.6 g/dL Albumin/Globulin Ratio 0.6 Urine Color Lt. yellow (YELLOW) Urine Clarity Clear (CLEAR) Urine pH 6.0 (5.0-9.0) Ur Specific [place] 1.010 (1.005-1.025) Urine Protein Negative (NEG/TRACE) mg/dL Urine Glucose (UA) >=1000 A (NEGATIVE) mg/dL Urine Ketones Negative (NEGATIVE) mg/dL Urine Occult Blood Negative (NEGATIVE) Urine Nitrite Negative (NEGATIVE) Urine Bilirubin Negative (NEGATIVE) Urine Urobilinogen 0.2 (0.2-1.0) EU/dL Ur Leukocyte Esterase Negative (NEGATIVE) Discharge Plan Discharge Stand Alone Forms: Work/School Release, Portal Instructions Chief Complaint: Back Pain/Injury Clinical Impression: Spinal stenosis at L4-L5 level Patient Disposition: Home, Self-Care Time of Disposition Decision: 15:48 Prescriptions / Home Meds: No Action pantoprazole 40 mg tablet,delayed release (DR/EC) 40 mg PO DAILY tamsulosin 0.4 mg capsule 0.4 mg PO Q24H finasteride 5 mg tablet 5 mg PO DAILY empagliflozin 25 mg tablet 12.5 mg PO DAILY atorvastatin 10 mg tablet 10 mg PO QPM [place]spargo Sprinkle 100 mg capsule,sprinkle,ER 24hr 100 mg PO DAILY spironolactone [Aldactone] 25 mg tablet 25 mg PO QAM warfarin 2.5 mg tablet 2.5 mg PO .COMPLEX Rx Instructions: 2.5 mg orally friday, friday, friday and friday; warfarin 5 mg tablet 5 mg PO .COMPLEX Rx Instructions: 5 mg orally friday, and ; Entresto 24-26 mg tablet 1 tab PO BID brimonidine-timolol 0.2-0.5 % drops 1 drp ophthalmic (eye) QAM latanoprost 0.005 % drops 1 drp ophthalmic (eye) QPM metoclopramide HCl 10 mg tablet 10 mg PO BID levothyroxine [Euthyrox] 50 mcg tablet 50 mcg PO DAILY Print Language: Lithuanian Additional Instructions: [place] at nighttime, prednisone/follow-up with primary care doctor for back referral Referrals: Physician,Non-Staff, MD [Primary Care Provider] - 1 week
--- NOTE | 2024-05-30 12:07 | CT_ITS ---
The [address] [address] Patient Name: JULIETTE MORROW MRN: [id number] date: 1940 Sex: M Assigned Patient Location: ER Current Patient Location: Accession/Order Number: [id number] Exam Date: 05/30/2024 14:05 Report Date: 05/30/2024 15:26 At the request of: MARIOT METCALF Procedure: CT abdomen pelvis w con EXAM: CT abdomen pelvis w con, CT lumbar spine wo con HISTORY: Abdominal and back pain COMPARISON: Prior CT abdomen and pelvis 04/30/2024. 03/15/2023. TECHNIQUE: Enhanced helical acquisition of the abdomen and the pelvis. Axial, coronal and sagittal MPR reconstructions of the lumbar spine. FINDINGS: Mild bibasilar pulmonary scarring and atelectasis. Trace bilateral pleural effusions. Severe calcifications of the partially visualized right coronary artery. Scattered hepatic cysts, the largest within hepatic segment 5 measuring 1.8 cm. Cholelithiasis. The spleen, pancreas and the adrenal glands are unremarkable. Mild bilateral renal cortical atrophy. Moderate diffuse atherosclerotic vascular calcifications. No enlarged lymph nodes within the abdomen. Prior bowel resection. There is continued colonic distention noted with maximum caliber approximately 13 cm. Prostatic enlargement. No ascites or focal intraperitoneal fluid collections. No enlarged lymph nodes within the abdomen or the pelvis. Moderate to severe multilevel degenerative changes throughout the lumbar spine. Posterior disc-osteophyte complexes at L3-L4, L4-L5 and L5-S1 level with associated multilevel spinal canal stenoses, most severe at L3-L4 with AP diameter of the thecal sac measuring approximately 6 mm and L4-L5 with AP diameter of the thecal sac measuring approximately 8 mm. Partial lumbarization of S1 is noted. No evidence of fracture or spondylolisthesis. CT/CT abdomen pelvis w con IMPRESSION: 1. Persistent colonic distention with maximum caliber of the colon measuring 13 cm. This is favored to represent underlying colonic ileus. 2. Cholelithiasis. 3. Trace bilateral pleural effusions. 4. Prostatic enlargement. 5. Moderate-severe multilevel degenerative changes of lumbar spine. Multilevel spinal canal stenosis which is most pronounced at L3-L4 and L4-L5 levels. Electronically authenticated by: SHAR TREJO Date: 05/30/2024 15:26
--- NOTE | 2024-05-30 12:07 | CT_ITS ---
[address] [address] Patient Name: JULIETTE MORROW MRN: [id number] date: 1940 Sex: M Assigned Patient Location: ER Current Patient Location: Accession/Order Number: [id number] Exam Date: 05/30/2024 14:05 Report Date: 05/30/2024 15:26 At the request of: MARITO METCALF Procedure: CT lumbar spine wo con EXAM: CT abdomen pelvis w con, CT lumbar spine wo con HISTORY: Abdominal and back pain COMPARISON: Prior CT abdomen and pelvis 04/30/2024. 03/15/2023. TECHNIQUE: Enhanced helical acquisition of the abdomen and the pelvis. Axial, coronal and sagittal MPR reconstructions of the lumbar spine. FINDINGS: Mild bibasilar pulmonary scarring and atelectasis. Trace bilateral pleural effusions. Severe calcifications of the partially visualized right coronary artery. Scattered hepatic cysts, the largest within hepatic segment 5 measuring 1.8 cm. Cholelithiasis. The spleen, pancreas and the adrenal glands are unremarkable. Mild bilateral renal cortical atrophy. Moderate diffuse atherosclerotic vascular calcifications. No enlarged lymph nodes within the abdomen. Prior bowel resection. There is continued colonic distention noted with maximum caliber approximately 13 cm. Prostatic enlargement. No ascites or focal intraperitoneal fluid collections. No enlarged lymph nodes within the abdomen or the pelvis. Moderate to severe multilevel degenerative changes throughout the lumbar spine. Posterior disc-osteophyte complexes at L3-L4, L4-L5 and L5-S1 level with associated multilevel spinal canal stenoses, most severe at L3-L4 with AP diameter of the thecal sac measuring approximately 6 mm and L4-L5 with AP diameter of the thecal sac measuring approximately 8 mm. Partial lumbarization of S1 is noted. No evidence of fracture or spondylolisthesis. CT/CT lumbar spine wo con IMPRESSION: 1. Persistent colonic distention with maximum caliber of the colon measuring 13 cm. This is favored to represent underlying colonic ileus. 2. Cholelithiasis. 3. Trace bilateral pleural effusions. 4. Prostatic enlargement. 5. Moderate-severe multilevel degenerative changes of lumbar spine. Multilevel spinal canal stenosis which is most pronounced at L3-L4 and L4-L5 levels. Electronically authenticated by: SHAR TREJO Date: 05/30/2024 15:26
[2024-05-30 12:37] LABS: Alanine Aminotransferase 19 U/L (16-63); Albumin Globulin Ratio 0.6; Albumin Level 2.6 g/dL (3.4-5.0); Alkaline Phosphatase 85 U/L (46-116); Anion Gap 14.4; BUN Creatinine Ratio 19.9; Bilirubin Total 0.9 mg/dL (0.2-1.0); Calcium 8.4 mg/dL (8.5-10.1); Chloride 100 mmol/L (98-107); Estimated GFR (African America 50 (>=60); Estimated GFR (Non-African Ame 41 (>=60); Globulin 4.6 g/dL; Glucose 189 mg/dL (74-106); Sodium 130 mmol/L (136-145); Total Protein 7.2 g/dL (6.4-8.2)
[2024-05-30 12:43] LABS: Aspartate Amino Transferase 26 U/L (15-37); Potassium 4.4 mmol/L (3.5-5.1)
[2024-05-30 13:19] LABS: Lymphocytes Absolute Manual 1.14 10^3/uL (1.20-3.80); Monocytes Absolute Manual 0.19 10^3/uL (0.30-0.80); Segmented Neut Absolute Manual 7.98 10^3/uL (1.4-6.5)
[2024-05-30 14:08] LABS: Bilirubin Urine NEGATIVE (NEGATIVE); Blood Urine NEGATIVE (NEGATIVE); Clarity Urine CLEAR (CLEAR); Color Urine LT. YELLOW (YELLOW); Glucose Urine UA >=1000 mg/dL (NEGATIVE); Ketones Urine NEGATIVE (NEGATIVE); Leukocyte Esterase Urine NEGATIVE (NEGATIVE); Nitrite Urine NEGATIVE (NEGATIVE); Protein Urine NEGATIVE (NEG/TRACE); Urobilinogen Urine 0.2 EU/dL (0.2-1.0)
[2024-05-30 14:33] LABS: Urine Microscopic Indicated NO
== END 2024-05-30 16:30 | disposition home or self-care (01) ==
PROVIDERS: Emergency Provider Emergency Medicine Emergency Medical Services
DX: M48.061 Spinal stenosis, lumbar region without neurogenic claudication (principal)
CPT/HCPCS: 36415; 72131; 74177; 80053; 81003; 85007; 85027; 85610; 93005; 99285; Q9966

== ENCOUNTER 2024-06-27 14:04 | Inpatient (IN) | payer OTHER, SELFPAY ==
[2024-06-27] VITALS (29 sets, daily range): BP systolic 94–117; BP diastolic 73–87; PULSE 106–141; TEMP 36.3–36.6; O2SAT 95–98; BMI 21.4; BMI 21.1
--- OUTSIDE RECORDS SUMMARY | 2024-06-27 14:10 | XMS_ITS | CCD ---
Author Organization [facility] Care Team Providers Care Audit Clerks Supervisor Name Role Phone Yves Sanford Unavailable MD Ivan Lopez Primary Care Provider BERNADINE Rivero Emergency Provider RONALD, DR ACEVEDO Primary Care Unavailable KEITH [...] Consulting Unavailable SCARLET RUSSELL Consulting Unavailable SHAR TREJO Consulting Unavailable Wilson John Consulting Unavailable SHAHZAD [...] sources) Ondansetron; Translations: [ondansetron] Drug Allergy 01-10-2023 [facility] (1 source) Ondansetron Drug Allergy 11-19-2022 [facility] Repository Medications Current Medications Medication Drug [...] Onset: 02-11-2023 Episodic Other aftercare (1 source) 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; Translations: [SNF CURRNT USE ANTICOAGULANTS] Onset: 02-11-2023 Episodic Other aftercare (1 source) 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 Itzel Lerma E coli Shiga Toxin EIA Negative Normal Negative [facility] Comment on above: Performed By: #### C XSTOOL #### [facility] [address] [place] [address] Dr. Itzel Lerma Result 1 Comment Normal [facility] Comment on above: Result Comment: No S almonella or Shigella recovered. Performed By: #### C XSTOOL #### [facility] [address] [place] [address] Dr. Itzel Lerma Result Comment: No C ampylobacter species isolated. Salmonella/Shigella Screen Final report Normal [facility] Comment on above: Performed By: #### C XSTOOL #### [facility] [address] [address] [address] Itzel Lerma BNPon 11-24-2022 Natriuretic peptide B (Bld) [Mass/Vol] 1615.0 pg/mL Normal <=1,800.0 [facility] Comment on above: Performed By: #### O JESSE #### [facility] [address] [place] [address] Dr. Itzel Lerma CBC AUTO DIFFon 11-24-2022 BASO # 0.0 103/ul Normal 0.0-0.1 [facility] Comment on above: Performed By: #### C XSTOOL #### [facility] [address] [place] [address] Dr. Itzel Lerma Basophils/100 WBC (Bld) 0.5 % Normal 0.2-2.0 [facility] Comment on above: Performed By: #### C XSTOOL #### [facility] [address] [place] [address] Dr. Itzel Lerma EO # 0.1 103/ul Normal 0.0-0.7 [facility] Comment on above: Performed By: #### C XSTOOL #### [facility] [address] [place] [address] Dr. Itzel Lerma Eosinophils/100 WBC (Bld) 1.4 % Normal 0.9-7.0 [facility] Comment on above: Performed By: #### C XSTOOL #### [facility] [address] [place] [address] Dr. Itzel Lerma Erythrocyte distribution width (RBC) [Ratio] 16.1 % Critically high 11.0-15.0 [facility] Comment on above: Performed By: #### C XSTOOL #### [facility] [address] [place] [address] Dr. Itezl Lerma Hematocrit (Bld) [Volume fraction] 44.1 % Normal 42.0-54.0 [facility] Comment on above: Performed By: #### C XSTOOL #### [facility] [address] [place] [address] Dr. Itzel Lerma Hemoglobin (Bld) [Mass/Vol] 13.9 g/dL Critically low 14.0-18.0 [facility] Comment on above: Performed By: #### C XSTOOL #### [facility] [address] [place] [address] Dr. Itzel Lerma IG # 0.03 10e3/ul Normal 0.00-0.03 [facility] Comment on above: Performed By: #### C XSTOOL #### [facility] [address] [place] [address] Dr. Itzel Lerma IG % 0.5 % Normal 0.0-0.5 [facility] Comment on above: Performed By: #### C XSTOOL #### [facility] [address] [address] [address] Itzel Lerma LYMPH # 0.9 103/ul Critically low 1.2-3.[address] [facility] Comment on above: Performed By: #### C XSTOOL #### [facility] [address] [address] [address] Itzel Lerma Lymphocytes/100 WBC (Bld) 14.4 % Critically low 20.5-60.0 [facility] Comment on above: Performed By: #### C XSTOOL #### [facility] [address] [address] [address] Itzel Lerma MANUAL DIFF REQ NO Normal [facility] Comment on above: Performed By: #### C XSTOOL #### [facility] [address] [place] [address] Dr. Itzel Lerma MCH (RBC) [Entitic mass] 27.5 pg Normal 25.9-34.0 [facility] Comment on above: Performed By: #### C XSTOOL #### [facility] [address] [place] [address] Dr. Itzel Lerma MCHC (RBC) [Mass/Vol] 31.5 g/dL Normal 29.9-35.2 [facility] Comment on above: Performed By: #### C XSTOOL #### [facility] [address] [place] [address] Dr. Itzel Lerma MCV (RBC) [Entitic vol] 87.3 fL Normal 80.0-94.0 [facility] Comment on above: Performed By: #### C XSTOOL #### [facility] [address] [address] [address] Itzel Lerma MONO # 0.7 103/ul Normal 0.3-0.8 [facility] Comment on above: Performed By: #### C XSTOOL #### [facility] [address] [place] [address] Dr. Itzel Lerma Monocytes/100 WBC (Bld) 10.6 % Normal 1.7-12.0 [facility] Comment on above: Performed By: #### C XSTOOL #### [facility] [address] [address] [address] Itzel Lerma NEUT # 4.6 103/ul Normal 1.4-6.5 [facility] Comment on above: Performed By: #### C XSTOOL #### [facility] [address] [address] [address] Itzel Lerma Neutrophils/100 WBC (Bld) 72.6 % Normal 43.0-75.0 [facility] Comment on above: Performed By: #### C XSTOOL #### [facility] [address] [place] [address] Dr. Itzel Lerma Platelet mean volume (Bld) [Entitic vol] 10.3 fL Normal 9.5-13.5 [facility] Comment on above: Performed By: #### C XSTOOL #### [facility] [address] [place] [address] Dr. Itzel Lerma PLT 279 103/ul Normal 150-450 [facility] Comment on above: Performed By: #### C XSTOOL #### [facility] [address] [place] [address] Dr. Itzel Lerma RBC 5.05 106/ul Normal 4.70-6.10 [facility] Comment on above: Performed By: #### C XSTOOL #### [facility] [address] [place] [address] Dr. Itzel Lerma WBC 6.3 103/ul Normal 4.0-11.0 [facility] Comment on above: Performed By: #### C XSTOOL #### [facility] [address] [place] [address] Dr. Itzel Lerma PROF CHEM 8 (BAS METB)on Anion gap [Moles/Vol] 15.8 mmol/L Normal [facility] Comment on above: Performed By: #### O JESSE #### [facility] [address] [place] [address] Dr. Itzel Lerma Calcium [Mass/Vol] 9.1 mg/dL Normal 8.5-10.1 [facility] Comment on above: Performed By: #### O JESSE #### [facility] [address] [place] [address] Dr. Itzel Lerma Chloride [Moles/Vol] 102 mmol/L Normal 98-107 [facility] Comment on above: Performed By: #### O JESSE #### [facility] [address] [place] [address] Dr. Itzel Lerma CO2 [Moles/Vol] 19.7 mmol/L Critically low 21.0-32.0 [facility] Comment on above: Performed By: #### O JESSE #### [facility] [address] [place] [address] Dr. Itzel Lerma Creatinine [Mass/Vol] 1.76 mg/dL Critically high 0.70-1.30 [facility] Comment on above: Performed By: #### O JESSE #### [facility] [address] [place] [address] Dr. Itzel Lerma EGFR-AF MONEGASQUE 45 mL/min/1.73m2 Critically low >=60 [facility] Comment on above: Performed By: #### O JESSE #### [facility] [address] [place] [address] Dr. Itzel Lerma EGFR-NON AF MONEGASQUE 37 mL/min/1.73m2 Critically low >=60 [facility] Comment on above: Performed By: #### O JESSE #### [facility] [address] [place] [address] Dr. Itzel Lerma Glucose [Mass/Vol] 139 mg/dL Critically high 74-106 [facility] Comment on above: Performed By: #### O JESSE #### [facility] [address] [place] [address] Dr. Itzel Lerma Potassium [Moles/Vol] 4.5 mmol/L Normal 3.5-5.1 [facility] Comment on above: Performed By: #### O JESSE #### [facility] [address] [place] [address] Dr. Itzel Lerma Sodium [Moles/Vol] 133 mmol/L Critically low 136-145 [facility] Comment on above: Performed By: #### O JESSE #### [facility] [address] [place] [address] Dr. Itzel Lerma Urea nitrogen [Mass/Vol] 53.0 mg/dL Critically high 7.0-18.0 [facility] Comment on above: Performed By: #### O JESSE #### [facility] [address] [place] [address] Dr. Itzel Lerma Urea nitrogen/Creatinine [Mass ratio] 30.1 mg/mg Normal [facility] Comment on above: Performed By: #### O JESSE #### [facility] [address] [place] [address] Dr. Itzel Lerma PROTIMEon 11-24-2022 INR Coag (PPP) [Relative time] 3.98 {INR} Normal [facility] Comment on above: Performed By: #### U A #### [facility] [address] [place] [address] Dr. Itzel Lerma INR GUIDELINES SEE BELOW Normal [facility] Comment on above: Result Comment: MIKAL RED INR: 2.0 - 3.0 CONDITIONS NOT LISTED BELOW 2.5 - 3.5 FOR PROSTHETIC HEART VALVE REPLACEMENT 2.5 - 3.5 RECURRENT THROMBOSIS Performed By: #### U A #### [facility] [address] [place] [address] Dr. Itzel Lerma PT Coag (PPP) [Time] 39.0 s Critically high 9.0-11.6 [facility] Comment on above: Performed By: #### U A #### [facility] [address] [place] [address] Dr. Itzel Lerma PTTon 11-24-2022 aPTT Coag (Bld) [Time] 44.8 s Critically high 22.3-36.2 [facility] Comment on above: Performed By: #### U A #### [facility] [address] [place] [address] Dr. Itzel Lerma XR KUB 1 VIEWon [...] WILSON JOHN Date: 2022-11-24 07:43 Normal [facility] CBC AUTO DIFFon 11-23-2022 BASO # 0.0 103/ul Normal 0.0-0.1 [facility] Comment on above: Performed By: #### O SMO #### [facility] [address] [address] [address] Itzel Lerma Basophils/100 WBC (Bld) 0.3 % Normal 0.2-2.0 [facility] Comment on above: Performed By: #### O SMO #### [facility] [address] [address] [address] Itzel Lerma EO # 0.1 103/ul Normal 0.0-0.7 [facility] Comment on above: Performed By: #### O SMO #### [facility] [address] [address] [address] Itzel Lerma Eosinophils/100 WBC (Bld) 1.6 % Normal 0.9-7.0 [facility] Comment on above: Performed By: #### O SMO #### [facility] [address] [address] [address] Itzel Lerma Erythrocyte distribution width (RBC) [Ratio] 15.9 % Critically high 11.0-15.0 [facility] Comment on above: Performed By: #### O SMO #### [facility] [address] [place] [address] Dr. Itzel Lerma Hematocrit (Bld) [Volume fraction] 42.4 % Normal 42.0-54.0 [facility] Comment on above: Performed By: #### O SMO #### [facility] [address] [place] [address] Dr. Itzel Lerma Hemoglobin (Bld) [Mass/Vol] 13.1 g/dL Critically low 14.0-18.0 [facility] Comment on above: Performed By: #### O SMO #### [facility] [address] [place] [address] Dr. Itzel Lerma IG # 0.04 10e3/ul Critically high 0.00-0.03 [facility] Comment on above: Performed By: #### O SMO #### [facility] [address] [place] [address] Dr. Itzel Lerma IG % 0.7 % Critically high 0.0-0.5 [facility] Comment on above: Performed By: #### O SMO #### [facility] [address] [place] [address] Dr. Itzel Lerma LYMPH # 0.9 103/ul Critically low 1.2-3.[address] [facility] Comment on above: Performed By: #### O SMO #### [facility] [address] [place] [address] Dr. Itzel Lerma Lymphocytes/100 WBC (Bld) 15.6 % Critically low 20.5-60.0 [facility] Comment on above: Performed By: #### O SMO #### [facility] [address] [place] [address] Dr. Itzel Lerma MANUAL DIFF REQ NO Normal [facility] Comment on above: Performed By: #### O SMO #### [facility] [address] [place] [address] Dr. Itzel Lerma MCH (RBC) [Entitic mass] 27.5 pg Normal 25.9-34.0 [facility] Comment on above: Performed By: #### O SMO #### [facility] [address] [place] [address] Dr. Itzel Lerma MCHC (RBC) [Mass/Vol] 30.9 g/dL Normal 29.9-35.2 [facility] Comment on above: Performed By: #### O SMO #### [facility] [address] [address] [address] Itzel Lerma MCV (RBC) [Entitic vol] 88.9 fL Normal 80.0-94.0 [facility] Comment on above: Performed By: #### O SMO #### [facility] [address] [address] [address] Itzel Lerma MONO # 0.7 103/ul Normal 0.3-0.8 [facility] Comment on above: Performed By: #### O SMO #### [facility] [address] [place] [address] Dr. Itzel Lerma Monocytes/100 WBC (Bld) 12.1 % Critically high 1.7-12.0 [facility] Comment on above: Performed By: #### O SMO #### [facility] [address] [place] [address] Dr. Itzel Lerma NEUT # 4.0 103/ul Normal 1.4-6.5 [facility] Comment on above: Performed By: #### O SMO #### [facility] [address] [place] [address] Dr. Itzel Lerma Neutrophils/100 WBC (Bld) 69.7 % Normal 43.0-75.0 [facility] Comment on above: Performed By: #### O SMO #### [facility] [address] [place] [address] Dr. Itzel Lerma Platelet mean volume (Bld) [Entitic vol] 10.6 fL Normal 9.5-13.5 [facility] Comment on above: Performed By: #### O SMO #### [facility] [address] [place] [address] Dr. Itzel Lerma PLT 200 103/ul Normal 150-450 [facility] Comment on above: Performed By: #### O SMO #### [facility] [address] [place] [address] Dr. Itzel Lerma RBC 4.77 106/ul Normal 4.70-6.10 [facility] Comment on above: Performed By: #### O SMO #### [facility] [address] [place] [address] Dr. Itzel Lerma WBC 5.8 103/ul Normal 4.0-11.0 [facility] Comment on above: Performed By: #### O SMO #### [facility] [address] [address] [address] Itzel Lerma PROF CHEM 8 (BAS METB)on Anion gap [Moles/Vol] 14.3 mmol/L Normal [facility] Comment on above: Performed By: #### O SMO #### [facility] [address] [place] [address] Dr. Itzel Lerma Calcium [Mass/Vol] 9.1 mg/dL Normal 8.5-10.1 [facility] Comment on above: Performed By: #### O SMO #### [facility] [address] [place] [address] Dr. Itzel Lerma Chloride [Moles/Vol] 102 mmol/L Normal 98-107 [facility] Comment on above: Performed By: #### O SMO #### [facility] [address] [place] [address] Dr. Itzel Lerma CO2 [Moles/Vol] 21.4 mmol/L Normal 21.0-32.0 [facility] Comment on above: Performed By: #### O SMO #### [facility] [address] [place] [address] Dr. Itzel Lerma Creatinine [Mass/Vol] 1.58 mg/dL Critically high 0.70-1.30 [facility] Comment on above: Performed By: #### O SMO #### [facility] [address] [place] [address] Dr. Itzel Lerma EGFR-AF MONEGASQUE 51 mL/min/1.73m2 Critically low >=60 [facility] Comment on above: Performed By: #### O SMO #### [facility] [address] [place] [address] Dr. Itzel Lerma EGFR-NON AF MONEGASQUE 42 mL/min/1.73m2 Critically low >=60 [facility] Comment on above: Performed By: #### O SMO #### [facility] [address] [place], [place] [id number] Dr. Itzel Lerma Glucose [Mass/Vol] 125 mg/dL Critically high 74-106 T [facility] Comment on above: Performed By: #### O SMO #### [facility] [address] [address] [address] Itzel Lerma Potassium [Moles/Vol] 4.7 mmol/L Normal 3.5-5.1 [facility] Comment on above: Performed By: #### O SMO #### [facility] [address] [address] [address] Itzel Lerma Sodium [Moles/Vol] 133 mmol/L Critically low 136-145 Th e [facility] Comment on above: Performed By: #### O SMO #### [facility] [address] [place] [address] Dr. Itzel Lerma Urea nitrogen [Mass/Vol] 45.0 mg/dL Critically high 7.0-18.0 [facility] Comment on above: Performed By: #### O SMO #### [facility] [address] [place] [address] Dr. Itzel Lerma Urea nitrogen/Creatinine [Mass ratio] 28.5 mg/mg Normal [facility] Comment on above: Performed By: #### O SMO #### [facility] [address] [place] [address] Dr. Itzel Lerma PROTIMEon 11-23-2022 INR Coag (PPP) [Relative time] 4.89 {INR} Critically high [facility] Comment on above: Performed By: #### P T #### [facility] [address] [place] [address] Dr. Itzel Lerma INR GUIDELINES SEE BELOW Normal [facility] Comment on above: Result Comment: MIKAL RED INR: 2.0 - 3.0 CONDITIONS NOT LISTED BELOW 2.5 - 3.5 FOR PROSTHETIC HEART VALVE REPLACEMENT 2.5 - 3.5 RECURRENT THROMBOSIS Performed By: #### P T #### [facility] [address] [place] [address] Dr. Itzel Lerma PT Coag (PPP) [Time] 47.4 s Critically high 9.0-11.6 [facility] Comment on above: Performed By: #### P T #### [facility] [address] [address] [address] Itzel Lerma CBC AUTO DIFFon 11-22-2022 BASO # 0.0 103/ul Normal 0.0-0.1 [facility] Comment on above: Performed By: #### C BC #### [facility] [address] [place] [address] Dr. Itzel Lerma Basophils/100 WBC (Bld) 0.4 % Normal 0.2-2.0 [facility] Comment on above: Performed By: #### C BC #### [facility] [address] [place] [address] Dr. Itzel Lerma EO # 0.1 103/ul Normal 0.0-0.7 [facility] Comment on above: Performed By: #### C BC #### [facility] [address] [place] [address] Dr. Itzel Lerma Eosinophils/100 WBC (Bld) 1.4 % Normal 0.9-7.0 [facility] Comment on above: Performed By: #### C BC #### [facility] [address] [place] [address] Dr. Itzel Lerma Erythrocyte distribution width (RBC) [Ratio] 16.3 % Critically high 11.0-15.0 [facility] Comment on above: Performed By: #### C BC #### [facility] [address] [place] [address] Dr. Itzel Lerma Hematocrit (Bld) [Volume fraction] 41.1 % Critically low 42.0-54.0 [facility] Comment on above: Performed By: #### C BC #### [facility] [address] [place] [address] Dr. Itzel Lerma Hemoglobin (Bld) [Mass/Vol] 12.5 g/dL Critically low 14.0-18.0 [facility] Comment on above: Performed By: #### C BC #### [facility] [address] [place] [address] Dr. Itzel Lerma IG # 0.03 10e3/ul Normal 0.00-0.03 [facility] Comment on above: Performed By: #### C BC #### [facility] [address] [place] [address] Dr. Itzel Lerma IG % 0.4 % Normal 0.0-0.5 [facility] Comment on above: Performed By: #### C BC #### [facility] [address] [place] [address] Dr. Itzel Lerma LYMPH # 1.0 103/ul Critically low 1.2-3.[address] [facility] Comment on above: Performed By: #### C BC #### [facility] [address] [place] [address] Dr. Itzel Lerma Lymphocytes/100 WBC (Bld) 14.3 % Critically low 20.5-60.0 [facility] Comment on above: Performed By: #### C BC #### [facility] [address] [place] [address] Dr. Itzel Lerma MANUAL DIFF REQ NO Normal [facility] Comment on above: Performed By: #### C BC #### [facility] [address] [place] [address] Dr. Itzel Lerma MCH (RBC) [Entitic mass] 27.4 pg Normal 25.9-34.0 [facility] Comment on above: Performed By: #### C BC #### [facility] [address] [place] [address] Dr. Itzel Lerma MCHC (RBC) [Mass/Vol] 30.4 g/dL Normal 29.9-35.2 [facility] Comment on above: Performed By: #### C BC #### [facility] [address] [place] [address] Dr. Itzel Lerma MCV (RBC) [Entitic vol] 89.9 fL Normal 80.0-94.0 [facility] Comment on above: Performed By: #### C BC #### [facility] [address] [place] [address] Dr. Itzel Lerma MONO # 0.8 103/ul Normal 0.3-0.8 [facility] Comment on above: Performed By: #### C BC #### [facility] [address] [address] [address] Itzel Lerma Monocytes/100 WBC (Bld) 11.1 % Normal 1.7-12.0 [facility] Comment on above: Performed By: #### C BC #### [facility] [address] [address] [address] Itzel Lerma NEUT # 5.2 103/ul Normal 1.4-6.5 [facility] Comment on above: Performed By: #### C BC #### [facility] [address] [address] [address] Itzel Lerma Neutrophils/100 WBC (Bld) 72.4 % Normal 43.0-75.0 [facility] Comment on above: Performed By: #### C BC #### [facility] [address] [place] [address] Dr. Itzel Lerma Platelet mean volume (Bld) [Entitic vol] 10.1 fL Normal 9.5-13.5 [facility] Comment on above: Performed By: #### C BC #### [facility] [address] [address] [address] Itzel Lerma PLT 210 103/ul Normal 150-450 [facility] Comment on above: Performed By: #### C BC #### [facility] [address] [place] [address] Dr. Itzel Lerma RBC 4.57 106/ul Critically low 4.70-6.10 [facility] Comment on above: Performed By: #### C BC #### [facility] [address] [address] [address] Itzel Lerma WBC 7.2 103/ul Normal 4.0-11.0 [facility] Comment on above: Performed By: #### C BC #### [facility] [address] [place] [address] Dr. Itzel Lerma PROF CHEM 8 (BAS METB)on Anion gap [Moles/Vol] 13.8 mmol/L Normal [facility] Comment on above: Performed By: #### O SMO #### [facility] [address] [address] [address] Itzel Lerma Calcium [Mass/Vol] 8.7 mg/dL Normal 8.5-10.1 [facility] Comment on above: Performed By: #### O SMO #### [facility] [address] [address] [address] Itzel Lerma Chloride [Moles/Vol] 102 mmol/L Normal 98-107 [facility] Comment on above: Performed By: #### O SMO #### [facility] [address] [address] [address] Itzel Lerma CO2 [Moles/Vol] 20.6 mmol/L Critically low 21.0-32.0 [facility] Comment on above: Performed By: #### O SMO #### [facility] [address] [address] [address] Itzel Lerma Creatinine [Mass/Vol] 1.49 mg/dL Critically high 0.70-1.30 [facility] Comment on above: Performed By: #### O SMO #### [facility] [address] [address] [address] Itzel Lerma EGFR-AF MONEGASQUE 55 mL/min/1.73m2 Critically low >=60 [facility] Comment on above: Performed By: #### O SMO #### [facility] [address] [address] [address] Itzel Lerma EGFR-NON AF MONEGASQUE 45 mL/min/1.73m2 Critically low >=60 [facility] Comment on above: Performed By: #### O SMO #### [facility] [address] [address] [address] Itzel Lerma Glucose [Mass/Vol] 105 mg/dL Normal 74-106 [facility] Comment on above: Performed By: #### O SMO #### [facility] [address] [address] [address] Itzel Lerma Potassium [Moles/Vol] 4.4 mmol/L Normal 3.5-5.1 [facility] Comment on above: Performed By: #### O SMO #### [facility] [address] [address] [address] Itzel Lerma Sodium [Moles/Vol] 132 mmol/L Critically low 136-145 Th e [facility] Comment on above: Performed By: #### O SMO #### [facility] [address] [address] [address] Itzel Lerma Urea nitrogen [Mass/Vol] 47.0 mg/dL Critically high 7.0-18.0 [facility] Comment on above: Performed By: #### O SMO #### [facility] [address] [place] [address] Dr. Itzel Lerma Urea nitrogen/Creatinine [Mass ratio] 31.5 mg/mg Normal [facility] Comment on above: Performed By: #### O SMO #### [facility] [address] [place] [address] Dr. Itzel Lerma PROTIMEon 11-22-2022 INR Coag (PPP) [Relative time] 5.94 {INR} Critically high [facility] Comment on above: Performed By: #### C BC #### [facility] [address] [place] [address] Dr. Itzel Lerma INR GUIDELINES SEE BELOW Normal [facility] Comment on above: Result Comment: MIKAL RED INR: 2.0 - 3.0 CONDITIONS NOT LISTED BELOW 2.5 - 3.5 FOR PROSTHETIC HEART VALVE REPLACEMENT 2.5 - 3.5 RECURRENT THROMBOSIS Performed By: #### C BC #### [facility] [address] [place] [address] Dr. Itzel Lerma PT Coag (PPP) [Time] 56.9 s Critically high 9.0-11.6 [facility] Comment on above: Performed By: #### C BC #### [facility] [address] [place] [address] Dr. Itzel Lerma XR KUB 1 VIEWon [...] DORIAN YODER Date: 2022-11-22 08:06 Normal [facility] CBC AUTO DIFFon 11-21-2022 BASO # 0.0 103/ul Normal 0.0-0.1 [facility] Comment on above: Performed By: #### O JESSE #### [facility] [address] [address] [address] Itzel Lerma Basophils/100 WBC (Bld) 0.1 % Critically low 0.2-2.0 [facility] Comment on above: Performed By: #### O JESSE #### [facility] [address] [address] [address] Itzel Lerma EO # 0.1 103/ul Normal 0.0-0.7 [facility] Comment on above: Performed By: #### O JESSE #### [facility] [address] [address] [address] Itzel Lerma Eosinophils/100 WBC (Bld) 1.5 % Normal 0.9-7.0 [facility] Comment on above: Performed By: #### O JESSE #### [facility] [address] [address] [address] Itzel Lerma Erythrocyte distribution width (RBC) [Ratio] 16.3 % Critically high 11.0-15.0 [facility] Comment on above: Performed By: #### O JESSE #### [facility] [address] [address] [address] Itzel Lerma Hematocrit (Bld) [Volume fraction] 42.6 % Normal 42.0-54.0 [facility] Comment on above: Performed By: #### O JESSE #### [facility] [address] [address] [address] Itzel Lerma Hemoglobin (Bld) [Mass/Vol] 13.3 g/dL Critically low 14.0-18.0 [facility] Comment on above: Performed By: #### O JESSE #### [facility] [address] [address] [address] Itzel Lerma IG # 0.02 10e3/ul Normal 0.00-0.03 [facility] Comment on above: Performed By: #### O JESSE #### [facility] [address] [address] [address] Itzel Lerma IG % 0.2 % Normal 0.0-0.5 [facility] Comment on above: Performed By: #### O JESSE #### [facility] [address] [place] [address] Dr. Itzel Lerma LYMPH # 1.0 103/ul Critically low 1.2-3.[address] [facility] Comment on above: Performed By: #### O JESSE #### [facility] [address] [place] [address] Dr. Itzel Lerma Lymphocytes/100 WBC (Bld) 12.5 % Critically low 20.5-60.0 [facility] Comment on above: Performed By: #### O JESSE #### [facility] [address] [place] [address] Dr. Itzel Lerma MANUAL DIFF REQ NO Normal [facility] Comment on above: Performed By: #### O JESSE #### [facility] [address] [place] [address] Dr. Itzel Lerma MCH (RBC) [Entitic mass] 27.8 pg Normal 25.9-34.0 [facility] Comment on above: Performed By: #### O JESSE #### [facility] [address] [place] [address] Dr. Itzel Lerma MCHC (RBC) [Mass/Vol] 31.2 g/dL Normal 29.9-35.2 [facility] Comment on above: Performed By: #### O JESSE #### [facility] [address] [place] [address] Dr. Itzel Lerma MCV (RBC) [Entitic vol] 88.9 fL Normal 80.0-94.0 [facility] Comment on above: Performed By: #### O JESSE #### [facility] [address] [address] [address] Itzel Lerma MONO # 0.9 103/ul Critically high 0.3-0.8 [facility] Comment on above: Performed By: #### O JESSE #### [facility] [address] [address] [address] Itzel Lerma Monocytes/100 WBC (Bld) 10.6 % Normal 1.7-12.0 [facility] Comment on above: Performed By: #### O JESSE #### [facility] [address] [address] [address] Itzel Lerma NEUT # 6.1 103/ul Normal 1.4-6.5 [facility] Comment on above: Performed By: #### O JESSE #### [facility] [address] [place] [address] Dr. Itzel Lerma Neutrophils/100 WBC (Bld) 75.1 % Critically high 43.0-75.0 [facility] Comment on above: Performed By: #### O JESSE #### [facility] [address] [place] [address] Dr. Itzel Lerma Platelet mean volume (Bld) [Entitic vol] 9.9 fL Normal 9.5-13.5 [facility] Comment on above: Performed By: #### O JESSE #### [facility] [address] [place] [address] Dr. Itzel Lerma PLT 239 103/ul Normal 150-450 [facility] Comment on above: Performed By: #### O JESSE #### [facility] [address] [address] [address] Itzel Lerma RBC 4.79 106/ul Normal 4.70-6.10 [facility] Comment on above: Performed By: #### O JESSE #### [facility] [address] [place] [address] Dr. Itzel Lerma WBC 8.1 103/ul Normal 4.0-11.0 [facility] Comment on above: Performed By: #### O JESSE #### [facility] [address] [address] [address] Itzel Lerma PROF CHEM 8 (BAS METB)on Anion gap [Moles/Vol] 15.4 mmol/L Normal [facility] Comment on above: Performed By: #### U A #### [facility] [address] [address] [address] Itzel Lerma Calcium [Mass/Vol] 8.9 mg/dL Normal 8.5-10.1 [facility] Comment on above: Performed By: #### U A #### [facility] [address] [address] [address] Itzel Lerma Chloride [Moles/Vol] 102 mmol/L Normal 98-107 [facility] Comment on above: Performed By: #### U A #### [facility] [address] [place] [address] Dr. Itzel Lerma CO2 [Moles/Vol] 18.7 mmol/L Critically low 21.0-32.0 [facility] Comment on above: Performed By: #### U A #### [facility] [address] [address] [address] Itzel Lerma Creatinine [Mass/Vol] 1.47 mg/dL Critically high 0.70-1.30 [facility] Comment on above: Performed By: #### U A #### [facility] [address] [address] [address] Itzel Lerma EGFR-AF MONEGASQUE 56 mL/min/1.73m2 Critically low >=60 [facility] Comment on above: Performed By: #### U A #### [facility] [address] [address] [address] Itzel Lerma EGFR-NON AF MONEGASQUE 46 mL/min/1.73m2 Critically low >=60 [facility] Comment on above: Performed By: #### U A #### [facility] [address] [address] [address] Itzel Lerma Glucose [Mass/Vol] 103 mg/dL Normal 74-106 [facility] Comment on above: Performed By: #### U A #### [facility] [address] [address] [address] Itzel Lerma Potassium [Moles/Vol] 4.1 mmol/L Normal 3.5-5.1 [facility] Comment on above: Performed By: #### U A #### [facility] [address] [address] [address] Itzel Lerma Sodium [Moles/Vol] 132 mmol/L Critically low 136-145 [facility] Comment on above: Performed By: #### U A #### [facility] [address] [address] [address] Itzel Lerma Urea nitrogen [Mass/Vol] 47.0 mg/dL Critically high 7.0-18.0 [facility] Comment on above: Performed By: #### U A #### [facility] [address] [address] [address] Itzel Lerma Urea nitrogen/Creatinine [Mass ratio] 32.0 mg/mg Normal [facility] Comment on above: Performed By: #### U A #### [facility] [address] [address] [address] Itzel Lerma XR KUB 1 VIEWon [...] DORIAN YODER Date: 2022-11-21 08:08 Normal [facility] CBC AUTO DIFFon 11-20-2022 BASO # 0.0 103/ul Normal 0.0-0.1 [facility] Comment on above: Performed By: #### O SMO #### [facility] [address] [place] [address] Dr. Itzel Lerma Basophils/100 WBC (Bld) 0.3 % Normal 0.2-2.0 [facility] Comment on above: Performed By: #### O SMO #### [facility] [address] [place] [address] Dr. Itzel Lerma EO # 0.1 103/ul Normal 0.0-0.7 [facility] Comment on above: Performed By: #### O SMO #### [facility] [address] [place] [address] Dr. Itzel Lerma Eosinophils/100 WBC (Bld) 0.8 % Critically low 0.9-7.0 [facility] Comment on above: Performed By: #### O SMO #### [facility] [address] [place] [address] Dr. Itzel Lerma Erythrocyte distribution width (RBC) [Ratio] 16.2 % Critically high 11.0-15.0 [facility] Comment on above: Performed By: #### O SMO #### [facility] [address] [place] [address] Dr. Itzel Lerma Hematocrit (Bld) [Volume fraction] 46.2 % Normal 42.0-54.0 [facility] Comment on above: Performed By: #### O SMO #### [facility] [address] [place] [address] Dr. Itzel Lerma Hemoglobin (Bld) [Mass/Vol] 14.2 g/dL Normal 14.0-18.0 [facility] Comment on above: Performed By: #### O SMO #### [facility] [address] [place] [address] Dr. Itzel Lerma IG # 0.04 10e3/ul Critically high 0.00-0.03 [facility] Comment on above: Performed By: #### O SMO #### [facility] [address] [place] [address] Dr. Itzel Lerma IG % 0.3 % Normal 0.0-0.5 [facility] Comment on above: Performed By: #### O SMO #### [facility] [address] [address] [address] Itzel Lerma LYMPH # 1.3 103/ul Normal 1.2-3.8 [facility] Comment on above: Performed By: #### O SMO #### [facility] [address] [place] [address] Dr. Itzel Lerma Lymphocytes/100 WBC (Bld) 10.4 % Critically low 20.5-60.0 [facility] Comment on above: Performed By: #### O SMO #### [facility] [address] [place] [address] Dr. Itzel Lerma MANUAL DIFF REQ NO Normal [facility] Comment on above: Performed By: #### O SMO #### [facility] [address] [place] [address] Dr. Itzel Lerma MCH (RBC) [Entitic mass] 27.6 pg Normal 25.9-34.0 [facility] Comment on above: Performed By: #### O SMO #### [facility] [address] [place] [address] Dr. Itzel Lerma MCHC (RBC) [Mass/Vol] 30.7 g/dL Normal 29.9-35.2 [facility] Comment on above: Performed By: #### O SMO #### [facility] [address] [place] [address] Dr. Itzel Lerma MCV (RBC) [Entitic vol] 89.9 fL Normal 80.0-94.0 [facility] Comment on above: Performed By: #### O SMO #### [facility] [address] [place] [address] Dr. Itzel Lerma MONO # 1.1 103/ul Critically high 0.3-0.8 [facility] Comment on above: Performed By: #### O SMO #### [facility] [address] [place] [address] Dr. Itzel Lerma Monocytes/100 WBC (Bld) 9.5 % Normal 1.7-12.0 [facility] Comment on above: Performed By: #### O SMO #### [facility] [address] [address] [address] Itzel Lerma NEUT # 9.5 103/ul Critically high 1.4-6.5 [facility] Comment on above: Performed By: #### O SMO #### [facility] [address] [address] [address] Itzel Lerma Neutrophils/100 WBC (Bld) 78.7 % Critically high 43.0-75.0 [facility] Comment on above: Performed By: #### O SMO #### [facility] [address] [address] [address] Itzel Lerma Platelet mean volume (Bld) [Entitic vol] 9.6 fL Normal 9.5-13.5 [facility] Comment on above: Performed By: #### O SMO #### [facility] [address] [place] [address] Dr. Itzel Lerma PLT 280 103/ul Normal 150-450 [facility] Comment on above: Performed By: #### O SMO #### [facility] [address] [place] [address] Dr. Itzel Lerma RBC 5.14 106/ul Normal 4.70-6.10 [facility] Comment on above: Performed By: #### O SMO #### [facility] [address] [address] [address] Itzel Lerma WBC 12.0 103/ul Critically high 4.0-11.0 [facility] Comment on above: Performed By: #### O SMO #### [facility] [address] [place] [address] Dr. Itzel Lerma LACTATE/LACTIC ACIDon 2022 Lactate [Moles/Vol] 0.9 mmol/L Normal 0.4-1.9 [facility] Comment on above: Performed By: #### C BC #### [facility] [address] [place] [address] Dr. Itzel Lerma PROF CHEM 8 (BAS METB)on Anion gap [Moles/Vol] 14.9 mmol/L Normal [facility] Comment on above: Performed By: #### B MP #### [facility] [address] [address] [address] Itzel Lerma Calcium [Mass/Vol] 9.7 mg/dL Normal 8.5-10.1 [facility] Comment on above: Performed By: #### B MP #### [facility] [address] [address] [address] Itzel Lerma Chloride [Moles/Vol] 99 mmol/L Normal 98-107 [facility] Comment on above: Performed By: #### B MP #### [facility] [address] [address] [address] Itzel Lerma CO2 [Moles/Vol] 22.7 mmol/L Normal 21.0-32.0 [facility] Comment on above: Performed By: #### B MP #### [facility] [address] [address] [address] Itzel Lerma Creatinine [Mass/Vol] 2.07 mg/dL Critically high 0.70-1.30 [facility] Comment on above: Performed By: #### B MP #### [facility] [address] [address] [address] Itzel Lerma EGFR-AF MONEGASQUE 38 mL/min/1.73m2 Critically low >=60 [facility] Comment on above: Performed By: #### B MP #### [facility] [address] [address] [address] Itzel Lerma EGFR-NON AF MONEGASQUE 31 mL/min/1.73m2 Critically low >=60 [facility] Comment on above: Performed By: #### B MP #### [facility] [address] [address] [address] Itzel Lerma Glucose [Mass/Vol] 144 mg/dL Critically high 74-106 [facility] Comment on above: Performed By: #### B MP #### [facility] [address] [address] [address] Itzel Lerma Potassium [Moles/Vol] 4.6 mmol/L Normal 3.5-5.1 [facility] Comment on above: Performed By: #### B MP #### [facility] [address] [address] [address] Itzel Lerma Sodium [Moles/Vol] 132 mmol/L Critically low 136-145 Th e [facility] Comment on above: Performed By: #### B MP #### [facility] [address] [address] [address] Itzel Lerma Urea nitrogen [Mass/Vol] 52.0 mg/dL Critically high 7.0-18.0 [facility] Comment on above: Performed By: #### B MP #### [facility] [address] [address] [address] Itzel Lerma Urea nitrogen/Creatinine [Mass ratio] 25.1 mg/mg Normal [facility] Comment on above: Performed By: #### B MP #### [facility] [address] [place] [address] Dr. Itzel Lerma PROTIMEon 11-20-2022 INR Coag (PPP) [Relative time] 2.54 {INR} Normal [facility] Comment on above: Performed By: #### C BC #### [facility] [address] [place] [address] Dr. Itzel Lerma INR GUIDELINES SEE BELOW Normal [facility] Comment on above: Result Comment: MIKAL RED INR: 2.0 - 3.0 CONDITIONS NOT LISTED BELOW 2.5 - 3.5 FOR PROSTHETIC HEART VALVE REPLACEMENT 2.5 - 3.5 RECURRENT THROMBOSIS Performed By: #### C BC #### [facility] [address] [place] [address] Dr. Itzel Lerma PT Coag (PPP) [Time] 25.5 s Critically high 9.0-11.6 [facility] Comment on above: Performed By: #### C BC #### [facility] [address] [place] [address] Dr. Itzel Lerma XR KUB 1 VIEWon [...] DORIAN YODER Date: 2022-11-20 10:52 Normal [facility] CBC AUTO DIFFon 11-19-2022 BASO # 0.0 103/ul Normal 0.0-0.1 [facility] Comment on above: Performed By: #### O SMO #### [facility] [address] [place] [address] Dr. Itzel Lerma Basophils/100 WBC (Bld) 0.2 % Normal 0.2-2.0 [facility] Comment on above: Performed By: #### O SMO #### [facility] [address] [place] [address] Dr. Itzel Lerma EO # 0.1 103/ul Normal 0.0-0.7 [facility] Comment on above: Performed By: #### O SMO #### [facility] [address] [place] [address] Dr. Itzel Lerma Eosinophils/100 WBC (Bld) 1.1 % Normal 0.9-7.0 [facility] Comment on above: Performed By: #### O SMO #### [facility] [address] [place] [address] Dr. Itzel Lerma Erythrocyte distribution width (RBC) [Ratio] 16.3 % Critically high 11.0-15.0 [facility] Comment on above: Performed By: #### O SMO #### [facility] [address] [place] [address] Dr. Itzel Lerma Hematocrit (Bld) [Volume fraction] 47.9 % Normal 42.0-54.0 [facility] Comment on above: Performed By: #### O SMO #### [facility] [address] [place] [address] Dr. Itzel Lerma Hemoglobin (Bld) [Mass/Vol] 14.7 g/dL Normal 14.0-18.0 [facility] Comment on above: Performed By: #### O SMO #### [facility] [address] [place] [address] Dr. Itzel Lerma IG # 0.04 10e3/ul Critically high 0.00-0.03 [facility] Comment on above: Performed By: #### O SMO #### [facility] [address] [address] [address] Itzel Lerma IG % 0.4 % Normal 0.0-0.5 [facility] Comment on above: Performed By: #### O SMO #### [facility] [address] [place] [address] Dr. Itzel Lerma LYMPH # 0.9 103/ul Critically low 1.2-3.[address] [facility] Comment on above: Performed By: #### O SMO #### [facility] [address] [place] [address] Dr. Itzel Lerma Lymphocytes/100 WBC (Bld) 9.7 % Critically low 20.5-60.0 [facility] Comment on above: Performed By: #### O SMO #### [facility] [address] [place] [address] Dr. Itzel Lerma MANUAL DIFF REQ NO Normal [facility] Comment on above: Performed By: #### O SMO #### [facility] [address] [place] [address] Dr. Itzel Lerma MCH (RBC) [Entitic mass] 27.4 pg Normal 25.9-34.0 [facility] Comment on above: Performed By: #### O SMO #### [facility] [address] [place] [address] Dr. Itzel Lerma MCHC (RBC) [Mass/Vol] 30.7 g/dL Normal 29.9-35.2 [facility] Comment on above: Performed By: #### O SMO #### [facility] [address] [place] [address] Dr. Itzel Lerma MCV (RBC) [Entitic vol] 89.2 fL Normal 80.0-94.0 [facility] Comment on above: Performed By: #### O SMO #### [facility] [address] [place] [address] Dr. Itzel Lerma MONO # 0.7 103/ul Normal 0.3-0.8 [facility] Comment on above: Performed By: #### O SMO #### [facility] [address] [place] [address] Dr. Itezl Lerma Monocytes/100 WBC (Bld) 7.9 % Normal 1.7-12.0 [facility] Comment on above: Performed By: #### O SMO #### [facility] [address] [place] [address] Dr. Itzel Lerma NEUT # 7.6 103/ul Critically high 1.4-6.5 [facility] Comment on above: Performed By: #### O SMO #### [facility] [address] [place] [address] Dr. Itzel Lerma Neutrophils/100 WBC (Bld) 80.7 % Critically high 43.0-75.0 [facility] Comment on above: Performed By: #### O SMO #### [facility] [address] [place] [address] Dr. Itzel Lerma Platelet mean volume (Bld) [Entitic vol] 10.0 fL Normal 9.5-13.5 [facility] Comment on above: Performed By: #### O SMO #### [facility] [address] [place] [address] Dr. Itzel Lerma PLT 276 103/ul Normal 150-450 [facility] Comment on above: Performed By: #### O SMO #### [facility] [address] [place] [address] Dr. Itzel Lerma RBC 5.37 106/ul Normal 4.70-6.10 [facility] Comment on above: Performed By: #### O SMO #### [facility] [address] [place] [address] Dr. Itzel Lerma WBC 9.4 103/ul Normal 4.0-11.0 [facility] Comment on above: Performed By: #### O [facility] [place] #### [facility] [address] ABD/PELVIS WO CONon [...] SHAR TREJO Date: 2022-11-19 19:32 Normal [facility] Covid-19 PCR (CVDTB)on 10-31 SARS-CoV-2 (COVID-19) RNA JUDY+probe Ql (Unsp spec) Not detected Normal NOT DETECTED [facility] Comment on above: Result Comment: When [...] for this test is supported by the [employer] of [employer] and Human Service's declaration that [...] used). Performed By: #### U A #### [facility] [address] [place] [address] Dr. Itzel Lerma PROF CHEM 8 (BAS METB)on Anion gap [Moles/Vol] 10.2 mmol/L Normal [facility] Comment on above: Performed By: #### U A #### [facility] [address] [place] [address] Dr. Itzel Lerma Calcium [Mass/Vol] 9.8 mg/dL Normal 8.5-10.1 [facility] Comment on above: Performed By: #### U A #### [facility] [address] [place] [address] Dr. Itzle Lerma Chloride [Moles/Vol] 99 mmol/L Normal 98-107 [facility] Comment on above: Performed By: #### U A #### [facility] [address] [place] [address] Dr. Itzel Lerma CO2 [Moles/Vol] 27.4 mmol/L Normal 21.0-32.0 [facility] Comment on above: Performed By: #### U A #### [facility] [address] [place] [address] Dr. Itzel Lerma Creatinine [Mass/Vol] 2.02 mg/dL Critically high 0.70-1.30 [facility] Comment on above: Performed By: #### U A #### [facility] [address] [place] [address] Dr. Itzel Lerma EGFR-AF MONEGASQUE 39 mL/min/1.73m2 Critically low >=60 [facility] Comment on above: Performed By: #### U A #### [facility] [address] [address] [address] Itzel Lerma EGFR-NON AF MONEGASQUE 32 mL/min/1.73m2 Critically low >=60 [facility] Comment on above: Performed By: #### U A #### [facility] [address] [address] [address] Itzel Lerma Glucose [Mass/Vol] 148 mg/dL Critically high 74-106 T [facility] Comment on above: Performed By: #### U A #### [facility] [address] [address] [address] Itzel Lerma Potassium [Moles/Vol] 5.6 mmol/L Critically high 3.5-5.1 [facility] Comment on above: Performed By: #### U A #### [facility] [address] [address] [address] Itzel Lerma Sodium [Moles/Vol] 131 mmol/L Critically low 136-145 [facility] Comment on above: Performed By: #### U A #### [facility] [address] [address] [address] Itzel Lerma Urea nitrogen [Mass/Vol] 44.0 mg/dL Critically high 7.0-18.0 [facility] Comment on above: Performed By: #### U A #### [facility] [address] [address] [address] Itzel Lerma Urea nitrogen/Creatinine [Mass ratio] 21.8 mg/mg Normal [facility] Comment on above: Performed By: #### U A #### [facility] [id number] Itzel Lerma XR KUB 1 VIEWon 11-19-2022 XR KUB 1 VIEW EXAM: XR KUB 1 VIEW HISTORY: Nasogastric tube in situ COMPARISON: None. TECHNIQUE: Single view FINDINGS: IMPRESSION: Single limited view of the abdomen. Enteric tube tip is approximately 6.2 cm below the diaphragm. Air-filled loops of large and small bowel Electronically authenticated by: SHAHZAD VILLALPANDO Date: 2022-11-19 20:24 Normal [facility] OSMOLALITYon 07-12-2022 Osmolality [Osmolality] 274 mosm/kg Critically low 280-301 [facility] Comment on above: Performed By: #### O SMO #### [facility] [address] [place] [address] Dr. Itzel Lerma CBC AUTO DIFFon 07-11-2022 BASO # 0.0 103/ul Normal 0.0-0.1 [facility] Comment on above: Performed By: #### O JESSE #### [facility] [address] [place] [address] Dr. Itzel Lerma Basophils/100 WBC (Bld) 0.3 % Normal 0.2-2.0 [facility] Comment on above: Performed By: #### O JESSE #### [facility] [address] [place] [address] Dr. Itzel Lerma EO # 0.1 103/ul Normal 0.0-0.7 [facility] Comment on above: Performed By: #### O JESSE #### [facility] [address] [place] [address] Dr. Itzel Lerma Eosinophils/100 WBC (Bld) 0.7 % Critically low 0.9-7.0 [facility] Comment on above: Performed By: #### O JESSE #### [facility] [address] [place] [address] Dr. Itzel Lerma Erythrocyte distribution width (RBC) [Ratio] 14.6 % Normal 11.0-15.0 [facility] Comment on above: Performed By: #### O JESSE #### [facility] [address] [place] [address] Dr. Itzel Lerma Hematocrit (Bld) [Volume fraction] 35.2 % Critically low 42.0-54.0 [facility] Comment on above: Performed By: #### O JESSE #### [facility] [address] [place] [address] Dr. Itzel Lerma Hemoglobin (Bld) [Mass/Vol] 11.4 g/dL Critically low 14.0-18.0 [facility] Comment on above: Performed By: #### O JESSE #### [facility] [address] [address] [address] Itzel Lerma IG # 0.04 10e3/ul Critically high 0.00-0.03 [facility] Comment on above: Performed By: #### O JESSE #### [facility] [address] [address] [address] Itzel Lerma IG % 0.4 % Normal 0.0-0.5 [facility] Comment on above: Performed By: #### O JESSE #### [facility] [address] [place] [address] Dr. Itzel Lerma LYMPH # 0.9 103/ul Critically low 1.2-3.8 [facility] Comment on above: Performed By: #### O JESSE #### [facility] [address] [place] [address] Dr. Itzel Lerma Lymphocytes/100 WBC (Bld) 10.4 % Critically low 20.5-60.0 [facility] Comment on above: Performed By: #### O JESSE #### [facility] [address] [place] [address] Dr. Itzel Lerma MANUAL DIFF REQ NO Normal [facility] Comment on above: Performed By: #### O JESSE #### [facility] [address] [place] [address] Dr. Itzel Lerma MCH (RBC) [Entitic mass] 29.1 pg Normal 25.9-34.0 [facility] Comment on above: Performed By: #### O JESSE #### [facility] [address] [place] [address] Dr. Itzel Lerma MCHC (RBC) [Mass/Vol] 32.4 g/dL Normal 29.9-35.2 [facility] Comment on above: Performed By: #### O JESSE #### [facility] [address] [place] [address] Dr. Itzel Lerma MCV (RBC) [Entitic vol] 89.8 fL Normal 80.0-94.0 [facility] Comment on above: Performed By: #### O JESSE #### [facility] [address] [address] [address] Itzel Lerma MONO # 1.0 103/ul Critically high 0.3-0.8 [facility] Comment on above: Performed By: #### O JESSE #### [facility] [address] [place] [address] Dr. Itzel Lerma Monocytes/100 WBC (Bld) 11.1 % Normal 1.7-12.0 [facility] Comment on above: Performed By: #### O JESSE #### [facility] [address] [place] [address] Dr. Itzel Lerma NEUT # 6.9 103/ul Critically high 1.4-6.5 [facility] Comment on above: Performed By: #### O JESSE #### [facility] [address] [place] [address] Dr. Itzel Lerma Neutrophils/100 WBC (Bld) 77.1 % Critically high 43.0-75.0 [facility] Comment on above: Performed By: #### O JESSE #### [facility] [address] [place] [address] Dr. Itzel Lerma Platelet mean volume (Bld) [Entitic vol] 9.5 fL Normal 9.5-13.5 [facility] Comment on above: Performed By: #### O JESSE #### [facility] [address] [place] [address] Dr. Itzel Lerma PLT 166 103/ul Normal 150-450 [facility] Comment on above: Performed By: #### O JESSE #### [facility] [address] [place] [address] Dr. Itzel Lerma RBC 3.92 106/ul Critically low 4.70-6.10 [facility] Comment on above: Performed By: #### O JESSE #### [facility] [address] [place] [address] Dr. Itzel Lerma WBC 9.0 103/ul Normal 4.0-11.0 [facility] Comment on above: Performed By: #### O JESSE #### [facility] [address] [place] [address] Dr. Itzel Lerma H PYLORI ANTIBODY IGGon 06-29 H. PYLORI IGG ABS 1.90 Index Value Critically high 0.00-0. 79 [facility] Comment on above: Result Comment: Nega tive <0.80 Equivocal 0.80 - 0.89 Positive >0.89 Performed By: #### H PYLLC #### [facility] [address] [place] [address] Dr. Itzel Lerma OCC BLD IMMUNOASSAYon 2021 OCCULT BLOOD Positive Abnormal NEGATIVE [facility] Comment on above: Performed By: #### O JESSE #### [facility] [address] [place] [address] Dr. Itzel Lerma OSMOLALITY URINEon Osmolality, Urine 252 mOsmol/kg Normal [facility] Comment on above: Result Comment: 24 h r : 300 - 900 Random: 50 - 1400 After 12hr fluid restriction: >850 Performed By: #### O JESSE #### [facility] [address] [place] [address] Dr. Itzel Lerma PROF 14(COMP METB)on 022 Albumin [Mass/Vol] 2.6 g/dL Critically low 3.4-5.0 [facility] Comment on above: Performed By: #### O SMO #### [facility] [address] [place] [address] Dr. Itzel Lerma Albumin/Globulin [Mass ratio] 0.6 {ratio} Normal [facility] Comment on above: Performed By: #### O SMO #### [facility] [address] [place] [address] Dr. Itzel Lerma ALP [Catalytic activity/Vol] 59 U/L Normal 46-116 [facility] Comment on above: Performed By: #### O SMO #### [facility] [address] [place] [address] Dr. Itzel Lerma ALT [Catalytic activity/Vol] 10 U/L Critically low 16-63 [facility] Comment on above: Performed By: #### O SMO #### [facility] [address] [place] [address] Dr. Itzel Lerma Anion gap [Moles/Vol] 14.3 mmol/L Normal [facility] Comment on above: Performed By: #### O SMO #### [facility] [address] [place] [address] Dr. Itzel Lerma AST [Catalytic activity/Vol] 12 U/L Critically low 15-37 [facility] Comment on above: Performed By: #### O SMO #### [facility] [address] [place] [address] Dr. Itzel Lerma Bilirubin [Mass/Vol] 0.3 mg/dL Normal 0.2-1.0 [facility] Comment on above: Performed By: #### O SMO #### [facility] [address] [place] [address] Dr. Itzel Lerma Calcium [Mass/Vol] 7.5 mg/dL Critically low 8.5-10.1 [facility] Comment on above: Performed By: #### O SMO #### [facility] [address] [place] [address] Dr. Itzel Lerma Chloride [Moles/Vol] 116 mmol/L Critically high 98-107 [facility] Comment on above: Performed By: #### O SMO #### [facility] [address] [place] [address] Dr. Itzel Lerma CO2 [Moles/Vol] 14.3 mmol/L Critically low 21.0-32.0 [facility] Comment on above: Performed By: #### O SMO #### [facility] [address] [place] [address] Dr. Itzel Lerma Creatinine [Mass/Vol] 1.38 mg/dL Critically high 0.70-1.30 [facility] Comment on above: Performed By: #### O SMO #### [facility] [address] [place] [address] Dr. Itzel Lerma EGFR-AF MONEGASQUE 60 mL/min/1.73m2 Normal >=60 [facility] Comment on above: Performed By: #### O SMO #### [facility] [address] [place] [address] Dr. Itzel Lerma EGFR-NON AF MONEGASQUE 49 mL/min/1.73m2 Critically low >=60 [facility] Comment on above: Performed By: #### O SMO #### [facility] [address] [place] [address] Dr. Itzel Lerma Globulin (S) [Mass/Vol] 4.1 g/dL Normal [facility] Comment on above: Performed By: #### O SMO #### [facility] [address] [address] [address] Itzel Lerma Glucose [Mass/Vol] 137 mg/dL Critically high 74-106 T [facility] Comment on above: Performed By: #### O SMO #### [facility] [address] [place] [address] Dr. Itzel Lerma Potassium [Moles/Vol] 3.6 mmol/L Normal 3.5-5.1 [facility] Comment on above: Performed By: #### O SMO #### [facility] [address] [place] [address] Dr. Itzel Lerma Protein [Mass/Vol] 6.7 g/dL Normal 6.4-8.2 [facility] Comment on above: Performed By: #### O SMO #### [facility] [address] [place] [address] Dr. Itzel Lerma Sodium [Moles/Vol] 141 mmol/L Normal 136-145 [facility] Comment on above: Performed By: #### O SMO #### [facility] [address] [place] [address] Dr. Itzel Lerma Urea nitrogen [Mass/Vol] 25.0 mg/dL Critically high 7.0-18.0 [facility] Comment on above: Performed By: #### O SMO #### [facility] [address] [place] [address] Dr. Itzel Lerma Urea nitrogen/Creatinine [Mass ratio] 18.1 mg/mg Normal [facility] Comment on above: Performed By: #### O SMO #### [facility] [address] [place] [address] Dr. Itzel Lerma PROTIMEon 07-11-2022 INR Coag (PPP) [Relative time] 5.21 {INR} Critically high [facility] Comment on above: Performed By: #### O SMO #### [facility] [address] [place] [address] Dr. Itzel Lerma INR GUIDELINES SEE BELOW Normal [facility] Comment on above: Result Comment: MIKAL RED INR: 2.0 - 3.0 CONDITIONS NOT LISTED BELOW 2.5 - 3.5 FOR PROSTHETIC HEART VALVE REPLACEMENT 2.5 - 3.5 RECURRENT THROMBOSIS Performed By: #### O SMO #### [facility] [address] [place] [address] Dr. Itzel Lerma PT Coag (PPP) [Time] 50.5 s Critically high 9.0-11.6 [facility] Comment on above: Performed By: #### O SMO #### [facility] [address] [place] [address] Dr. Itzel Lerma CBC AUTO DIFFon 07-10-2022 BASO # 0.0 103/ul Normal 0.0-0.1 [facility] Comment on above: Performed By: #### U A #### [facility] [address] [place] [address] Dr. Itzel Lerma Basophils/100 WBC (Bld) 0.2 % Normal 0.2-2.0 [facility] Comment on above: Performed By: #### U A #### [facility] [address] [place] [address] Dr. Itzel Lerma EO # 0.1 103/ul Normal 0.0-0.7 [facility] Comment on above: Performed By: #### U A #### [facility] [address] [place] [address] Dr. Itzel Lerma Eosinophils/100 WBC (Bld) 0.4 % Critically low 0.9-7.0 [facility] Comment on above: Performed By: #### U A #### [facility] [address] [place] [address] Dr. Itzel Lerma Erythrocyte distribution width (RBC) [Ratio] 14.3 % Normal 11.0-15.0 [facility] Comment on above: Performed By: #### U A #### [facility] [address] [address] [address] Itzel Lerma Hematocrit (Bld) [Volume fraction] 38.2 % Critically low 42.0-54.0 [facility] Comment on above: Performed By: #### U A #### [facility] [address] [address] [address] Itzel Lerma Hemoglobin (Bld) [Mass/Vol] 12.5 g/dL Critically low 14.0-18.0 [facility] Comment on above: Performed By: #### U A #### [facility] [address] [address] [address] Itzel Lerma IG # 0.11 10e3/ul Critically high 0.00-0.03 [facility] Comment on above: Performed By: #### U A #### [facility] [address] [place] [address] Dr. Itzel Lerma IG % 0.7 % Critically high 0.0-0.5 [facility] Comment on above: Performed By: #### U A #### [facility] [address] [address] [address] Itzel Lerma LYMPH # 1.1 103/ul Critically low 1.2-3.[address] [facility] Comment on above: Performed By: #### U A #### [facility] [address] [place] [address] Dr. Itzel Lerma Lymphocytes/100 WBC (Bld) 6.9 % Critically low 20.5-60.0 [facility] Comment on above: Performed By: #### U A #### [facility] [address] [place] [address] Dr. Itzel Lerma MANUAL DIFF REQ NO Normal [facility] Comment on above: Performed By: #### U A #### [facility] [address] [place] [address] Dr. Itzel Lerma MCH (RBC) [Entitic mass] 29.6 pg Normal 25.9-34.0 [facility] Comment on above: Performed By: #### U A #### [facility] [address] [address] [address] Itzel Lerma MCHC (RBC) [Mass/Vol] 32.7 g/dL Normal 29.9-35.2 [facility] Comment on above: Performed By: #### U A #### [facility] [address] [address] [address] Itzel Lerma MCV (RBC) [Entitic vol] 90.3 fL Normal 80.0-94.0 [facility] Comment on above: Performed By: #### U A #### [facility] [address] [address] [address] Itzel Lerma MONO # 1.2 103/ul Critically high 0.3-0.8 [facility] Comment on above: Performed By: #### U A #### [facility] [address] [place] [address] Dr. Itzel Lerma Monocytes/100 WBC (Bld) 8.1 % Normal 1.7-12.0 [facility] Comment on above: Performed By: #### U A #### [facility] [address] [address] [address] Itzel Lerma NEUT # 12.8 103/ul Critically high 1.4-6.5 [facility] Comment on above: Performed By: #### U A #### [facility] [address] [place] [address] Dr. Itzel Lerma Neutrophils/100 WBC (Bld) 83.7 % Critically high 43.0-75.0 [facility] Comment on above: Performed By: #### U A #### [facility] [address] [address] [address] Itzel Lerma Platelet mean volume (Bld) [Entitic vol] 9.5 fL Normal 9.5-13.5 [facility] Comment on above: Performed By: #### U A #### [facility] [address] [address] [address] Itzel Lerma PLT 197 103/ul Normal 150-450 [facility] Comment on above: Performed By: #### U A #### [facility] [address] [place], [place] [address] Dr. Itzel Lerma RBC 4.23 106/ul Critically low 4.70-6.10 [facility] Comment on above: Performed By: #### U A #### [facility] [address] [place], [place] [address] Dr. Itzel Lerma WBC 15.3 103/ul Critically high 4.0-11.0 [facility] Comment on above: Performed By: #### U A #### [facility] [address] [place], [place] [address] ABD/PELVIS WO CONon [...] DORIAN SOARES Date: 2022-07-09 22:32 Normal [facility] Covid-19 PCR ([facility])on 06-29 SARS-CoV-2 (COVID-19) RNA JUDY+probe Ql (Unsp spec) Not detected Normal NOT DETECTED [facility] Comment on above: Result Comment: When [...] for this test is supported by the [employer] Human Service's declaration that [...] used). Performed By: #### O JESSE #### [facility] [address] [place] [address] Dr. Itzel Lerma GI PANEL (PCR)on 07-10-2022 Adenovirus F 40/41 Not detected Normal NOT DETECTED [facility] Comment on above: Performed By: #### O JESSE #### [facility] [address] [address] [address] Itzel Lerma Astrovirus Not detected Normal NOT DETECTED [facility] Comment on above: Performed By: #### O JESSE #### [facility] [address] [place] [address] Dr. Itzel Lerma C. Diff toxin A/B Not detected Normal NOT DETECTED [facility] Comment on above: Performed By: #### O JESSE #### [facility] [address] [place] [address] Dr. Itzel Lerma Campylobacter Not detected Normal NOT DETECTED [facility] Comment on above: Performed By: #### O JESSE #### [facility] [address] [place] [address] Dr. Itzel Lerma Cryptosporidium Not detected Normal NOT DETECTED [facility] Comment on above: Performed By: #### O JESSE #### [facility] [address] [place] [address] Dr. Itzel Lerma Cyclos. Cayetanensis Not detected Normal NOT DETECTED [facility] Comment on above: Performed By: #### O JESSE #### [facility] [address] [place] [address] Dr. Itzel Lerma E. Coli O157 Not Applicable Normal Not Applicable [facility] Comment on above: Performed By: #### O JESSE #### [facility] [address] [place] [address] Dr. Itzel Lerma E. histolytica Not detected Normal NOT DETECTED [facility] Comment on above: Performed By: #### O JESSE #### [facility] [address] [place] [address] Dr. Itzel Lerma EAEC Not detected Normal NOT DETECTED [facility] Comment on above: Performed By: #### O JESSE #### [facility] [address] [place] [address] Dr. Itzel Lerma EIEC Not detected Normal NOT DETECTED [facility] Comment on above: Performed By: #### O JESSE #### [facility] [address] [place] [address] Dr. Itzel Lerma EPEC Not detected Normal NOT DETECTED [facility] Comment on above: Performed By: #### O JESSE #### [facility] [address] [address] [address] Itzel Lerma ETEC Not detected Normal NOT DETECTED [facility] Comment on above: Performed By: #### O JESSE #### [facility] [address] [address] [address] Itzel Lerma G. Lamblia Not detected Normal NOT DETECTED [facility] Comment on above: Performed By: #### O JESSE #### [facility] [address] [address] [address] Itzel MCKEON CONTROLS PASSED Normal [facility] Comment on above: Performed By: #### O JESSE #### [facility] [address] [address] [address] Itzel GALVAN TAVO HEADER GI PANEL BACTERIA Normal T [facility] Comment on above: Performed By: #### O JESSE #### [facility] [address] [place] [address] Dr. Itzel GALLOWAY ECOLI GI PANEL DIARRHEAGEN IC E.COLI / SHIGELLA Normal [facility] Comment on above: Performed By: #### O JESSE #### [facility] [address] [place] [address] Dr. Itzel GALLOWAY INFO SEE BELOW Normal [facility] Comment on above: Result Comment: EAEC - Enteroaggregative E. Coli EPEC- Enteropathogenic E. Coli ETEC- Enterotoxigenic E. Coli lt/st STEC- Shigella-like toxin-producing E. Coli stx1/stx2 EIEC- Shigella/Enteroinvasive E. Coli Performed By: #### O JESSE #### [facility] [address] [place] [address] Dr. Itzel GALLOWAY PARASITES GI PANEL PARASITES Normal [facility] Comment on above: Performed By: #### O JESSE #### [facility] [address] [place] [address] Dr. Itzel GALLOWAY VIRUS GI PANEL VIRUSES Normal [facility] Comment on above: Performed By: #### O JESSE #### [facility] [address] [place] [address] Dr. Itzel Lerma Norovirus GI/GII Not detected Normal NOT DETECTED [facility] Comment on above: Performed By: #### O JESSE #### [facility] [address] [place] [address] Dr. Itzel Lerma P. Shigelloides Not detected Normal NOT DETECTED [facility] Comment on above: Performed By: #### O JESSE #### [facility] [address] [place] [address] Dr. Itzel Lerma Rotavirus A Not detected Normal NOT DETECTED [facility] Comment on above: Performed By: #### O JESSE #### [facility] [address] [place] [address] Dr. Itzel Lerma Salmonella Not detected Normal NOT DETECTED [facility] Comment on above: Performed By: #### O JESSE #### [facility] [address] [place] [address] Dr. Itzel Lerma Sapovirus Not detected Normal NOT DETECTED [facility] Comment on above: Performed By: #### O JESSE #### [facility] [address] [place] [address] Dr. Itzel Lerma STEC Not detected Normal NOT DETECTED [facility] Comment on above: Performed By: #### O JESSE #### [facility] [address] [place] [address] Dr. Itzel Lerma Vibrio Not detected Normal NOT DETECTED [facility] Comment on above: Performed By: #### O JESSE #### [facility] [address] [place] [address] Dr. Itzel Lerma Vibrio Cholera Not detected Normal NOT DETECTED [facility] Comment on above: Performed By: #### O JESSE #### [facility] [address] [place] [address] Dr. Itzel Lerma Y. Enterocolitica Not detected Normal NOT DETECTED [facility] Comment on above: Performed By: #### O JESSE #### [facility] [address] [place] [address] Dr. Itzel Lerma PROF CHEM 8 (BAS METB)on Anion gap [Moles/Vol] 12.6 mmol/L Normal [facility] Comment on above: Performed By: #### O SMO #### [facility] [address] [address] [address] Itzel Lemra Calcium [Mass/Vol] 7.7 mg/dL Critically low 8.5-10.1 [facility] Comment on above: Performed By: #### O SMO #### [facility] [address] [place] [address] Dr. Itzel Lerma Chloride [Moles/Vol] 103 mmol/L Normal 98-107 [facility] Comment on above: Performed By: #### O SMO #### [facility] [address] [place] [address] Dr. Itzel Lerma CO2 [Moles/Vol] 16.4 mmol/L Critically low 21.0-32.0 [facility] Comment on above: Performed By: #### O SMO #### [facility] [address] [place] [address] Dr. Itzel Lerma Creatinine [Mass/Vol] 2.03 mg/dL Critically high 0.70-1.30 [facility] Comment on above: Performed By: #### O SMO #### [facility] [address] [place] [address] Dr. Itzel Lerma EGFR-AF MONEGASQUE 38 mL/min/1.73m2 Critically low >=60 [facility] Comment on above: Performed By: #### O SMO #### [facility] [address] [place] [address] Dr. Itzel Lerma EGFR-NON AF MONEGASQUE 32 mL/min/1.73m2 Critically low >=60 [facility] Comment on above: Performed By: #### O SMO #### [facility] [address] [place] [address] Dr. Itzel Lerma Glucose [Mass/Vol] 148 mg/dL Critically high 74-106 T [facility] Comment on above: Performed By: #### O SMO #### [facility] [address] [place] [address] Dr. Itzel Lerma Potassium [Moles/Vol] 4.0 mmol/L Normal 3.5-5.1 [facility] Comment on above: Performed By: #### O SMO #### [facility] [address] [place] [address] Dr. Itzel Lerma Sodium [Moles/Vol] 128 mmol/L Critically low 136-145 Th [facility] Comment on above: Performed By: #### O SMO #### [facility] [address] [address] [address] Itzel Lerma Urea nitrogen [Mass/Vol] 50.0 mg/dL Critically high 7.0-18.0 [facility] Comment on above: Performed By: #### O SMO #### [facility] [address] [place] [address] Dr. Itzel Lerma Urea nitrogen/Creatinine [Mass ratio] 24.6 mg/mg Normal [facility] Comment on above: Performed By: #### O SMO #### [facility] [address] [place] [address] Dr. Itzel Lerma Anion gap [Moles/Vol] 14.3 mmol/L Normal [facility] Comment on above: Performed By: #### U A #### [facility] [address] [place] [address] Dr. Itzel Lerma Calcium [Mass/Vol] 7.8 mg/dL Critically low 8.5-10.1 [facility] Comment on above: Performed By: #### U A #### [facility] [address] [place] [address] Dr. Itzel Lerma Chloride [Moles/Vol] 101 mmol/L Normal 98-107 [facility] Comment on above: Performed By: #### U A #### [facility] [address] [place] [address] Dr. Itzel Lerma CO2 [Moles/Vol] 14.7 mmol/L Critically low 21.0-32.0 [facility] Comment on above: Performed By: #### U A #### [facility] [address] [place] [address] Dr. Itzel Lerma Creatinine [Mass/Vol] 2.01 mg/dL Critically high 0.70-1.30 [facility] Comment on above: Performed By: #### U A #### [facility] [address] [address] [address] Itzel Lerma EGFR-AF MONEGASQUE 39 mL/min/1.73m2 Critically low >=60 [facility] Comment on above: Performed By: #### U A #### [facility] [address] [address] [address] Itzel Lerma EGFR-NON AF MONEGASQUE 32 mL/min/1.73m2 Critically low >=60 [facility] Comment on above: Performed By: #### U A #### [facility] [address] [address] [address] Itzel Lerma Glucose [Mass/Vol] 152 mg/dL Critically high 74-106 T [facility] Comment on above: Performed By: #### U A #### [facility] [address] [address] [address] Itzel Lerma Potassium [Moles/Vol] 4.0 mmol/L Normal 3.5-5.1 [facility] Comment on above: Performed By: #### U A #### [facility] [address] [address] [address] Itzel Lerma Sodium [Moles/Vol] 126 mmol/L Critically low 136-145 Th [facility] Comment on above: Performed By: #### U A #### [facility] [address] [address] [address] Itzel Lerma Urea nitrogen [Mass/Vol] 51.0 mg/dL Critically high 7.0-18.0 [facility] Comment on above: Performed By: #### U A #### [facility] [address] [address] [address] Itzel Lerma Urea nitrogen/Creatinine [Mass ratio] 25.4 mg/mg Normal [facility] Comment on above: Performed By: #### U A #### [facility] [address] [address] [address] Itzel Lerma PROTIMEon 07-10-2022 INR Coag (PPP) [Relative time] 4.72 {INR} Critically high [facility] Comment on above: Performed By: #### P T #### [facility] [address] [place] [address] Dr. Itzel Lerma INR GUIDELINES SEE BELOW Normal [facility] Comment on above: Result Comment: MIKAL RED INR: 2.0 - 3.0 CONDITIONS NOT LISTED BELOW 2.5 - 3.5 FOR PROSTHETIC HEART VALVE REPLACEMENT 2.5 - 3.5 RECURRENT THROMBOSIS Performed By: #### P T #### [facility] [address] [place] [address] Dr. Itzel Lerma PT Coag (PPP) [Time] 46.1 s Critically high 9.0-11.6 [facility] Comment on above: Performed By: #### P T #### [facility] [address] [place] [address] Dr. Itzel Lerma SODIUM RANDOM URINEon 2021 UR SODIUM <50 Normal 30-90 [facility] Comment on above: Performed By: #### O JESSE #### [facility] [address] [place] [address] Dr. Itzel Lerma UA RANDOMon 07-10-2022 Bilirubin Ql (U) Negative Normal NEGATIVE [facility] Comment on above: Performed By: #### U A #### [facility] [address] [place] [address] Dr. Itzel Lerma Clarity (U) CLEAR Normal CLEAR [facility] Comment on above: Performed By: #### U A #### [facility] [address] [place] [address] Dr. Itzel Lerma Color (U) LT. YELLOW Normal YELLOW [facility] Comment on above: Performed By: #### U A #### [facility] [address] [place] [address] Dr. Itzel Lerma Glucose Ql (U) Negative Normal NEGATIVE [facility] Comment on above: Performed By: #### U A #### [facility] [address] [place] [address] Dr. Itzel Lerma Hemoglobin Ql (U) Negative Normal NEGATIVE [facility] Comment on above: Performed By: #### U A #### [facility] [address] [place] [address] Dr. Itzel Lerma Ketones Ql (U) Negative Normal NEGATIVE [facility] Comment on above: Performed By: #### U A #### [facility] [address] [place] [address] Dr. Itzel Lerma LEUKOCYTES Negative Normal NEGATIVE [facility] Comment on above: Performed By: #### U A #### [facility] [address] [place] [address] Dr. Itzel Lerma Nitrite Ql (U) Negative Normal NEGATIVE [facility] Comment on above: Performed By: #### U A #### [facility] [address] [place] [address] Dr. Itzel Lerma pH (U) 6.0 [pH] Normal 5-9 [facility] Comment on above: Performed By: #### U A #### [facility] [address] [place] [address] Dr. Itzel Lerma SPEC GRAVITY 1.010 Normal 1.005-<=1.025 [facility] Comment on above: Performed By: #### U A #### [facility] [address] [place] [address] Dr. Itzel Lerma UA PROTEIN Negative Normal NEGATIVE/ TRACE [facility] Comment on above: Performed By: #### U A #### [facility] [address] [place] [address] Dr. Itzel Lerma Urobilinogen Qn (U) 0.2 {Reta'U}/dL Normal 0.2 - 1. 0 [facility] Comment on above: Performed By: #### U A #### [facility] [address] [place] [address] Dr. Itzel Lerma XR ABD FLAT UP_PA [...] by: DORIAN YODER Date: 2022-07-10 10:16 Normal [facility] CBC AUTO DIFFon 07-09-2022 BASO # 0.1 103/ul Normal 0.0-0.1 [facility] Comment on above: Performed By: #### O JESSE #### [facility] [address] [address] [address] Itzel Lerma Basophils/100 WBC (Bld) 0.2 % Normal 0.2-2.0 [facility] Comment on above: Performed By: #### O JESSE #### [facility] [address] [address] [address] Itzel Lerma EO # 0.0 103/ul Normal 0.0-0.7 [facility] Comment on above: Performed By: #### O JESSE #### [facility] [address] [address] [address] Itzel Lerma Eosinophils/100 WBC (Bld) 0.2 % Critically low 0.9-7.0 [facility] Comment on above: Performed By: #### O JESSE #### [facility] [address] [address] [address] Itzel Lerma Erythrocyte distribution width (RBC) [Ratio] 14.0 % Normal 11.0-15.0 [facility] Comment on above: Performed By: #### O JESSE #### [facility] [address] [address] [address] Itzel Lerma Hematocrit (Bld) [Volume fraction] 39.3 % Critically low 42.0-54.0 [facility] Comment on above: Performed By: #### O JESSE #### [facility] [address] [place] [address] Dr. Itzel Lerma Hemoglobin (Bld) [Mass/Vol] 13.2 g/dL Critically low 14.0-18.0 [facility] Comment on above: Performed By: #### O JESSE #### [facility] [address] [place] [address] Dr. Itzel Lerma IG # 0.20 10e3/ul Critically high 0.00-0.03 [facility] Comment on above: Performed By: #### O JESSE #### [facility] [address] [place] [address] Dr. Itzel Lerma IG % 0.9 % Critically high 0.0-0.5 [facility] Comment on above: Performed By: #### O JESSE #### [facility] [address] [place] [address] Dr. Itzel Lerma LYMPH # 1.3 103/ul Normal 1.2-3.8 [facility] Comment on above: Performed By: #### O JESSE #### [facility] [address] [place] [address] Dr. Itzel Lerma Lymphocytes/100 WBC (Bld) 5.8 % Critically low 20.5-60.0 [facility] Comment on above: Performed By: #### O JESSE #### [facility] [address] [place] [address] Dr. Itzel Lerma MANUAL DIFF REQ NO Normal [facility] Comment on above: Performed By: #### O JESSE #### [facility] [address] [place] [address] Dr. Itzel Lerma MCH (RBC) [Entitic mass] 29.7 pg Normal 25.9-34.0 [facility] Comment on above: Performed By: #### O JESSE #### [facility] [address] [place] [address] Dr. Itzel Lerma MCHC (RBC) [Mass/Vol] 33.6 g/dL Normal 29.9-35.2 [facility] Comment on above: Performed By: #### O JESSE #### [facility] [address] [place] [address] Dr. Itzel Lerma MCV (RBC) [Entitic vol] 88.3 fL Normal 80.0-94.0 [facility] Comment on above: Performed By: #### O JESSE #### [facility] [address] [place] [address] Dr. Itzel Lerma MONO # 1.3 103/ul Critically high 0.3-0.8 [facility] Comment on above: Performed By: #### O JESSE #### [facility] [address] [place] [address] Dr. Itzel Lerma Monocytes/100 WBC (Bld) 6.0 % Normal 1.7-12.0 [facility] Comment on above: Performed By: #### O JESSE #### [facility] [address] [place] [address] Dr. Itzel Lerma NEUT # 19.3 103/ul Critically high 1.4-6.5 [facility] Comment on above: Performed By: #### O JESSE #### [facility] [address] [place] [address] Dr. Itzel Lerma Neutrophils/100 WBC (Bld) 86.9 % Critically high 43.0-75.0 [facility] Comment on above: Performed By: #### O JESSE #### [facility] [address] [place] [address] Dr. Itzel Lerma Platelet mean volume (Bld) [Entitic vol] 9.2 fL Critically low 9.5-13.5 [facility] Comment on above: Performed By: #### O JESSE #### [facility] [address] [place] [address] Dr. Itzel Lerma PLT 246 103/ul Normal 150-450 [facility] Comment on above: Performed By: #### O JESSE #### [facility] [address] [place] [address] Dr. Itzel Lerma RBC 4.45 106/ul Critically low 4.70-6.10 [facility] Comment on above: Performed By: #### O JESSE #### [facility] [address] [address] [address] Itzel Lerma WBC 22.2 103/ul Critically high 4.0-11.0 [facility] Comment on above: Performed By: #### O JESSE #### [facility] [address] [place] [address] Dr. Itzel Lerma LACTATE/LACTIC ACIDon 2021 Lactate [Moles/Vol] 1.0 mmol/L Normal 0.4-1.9 [facility] Comment on above: Performed By: #### O SMO #### [facility] [address] [place] [address] Dr. Itzel Lerma PROF 14(COMP METB)on 022 Albumin [Mass/Vol] 3.0 g/dL Critically low 3.4-5.0 [facility] Comment on above: Performed By: #### C MP #### [facility] [address] [place] [address] Dr. Itzel Lerma Albumin/Globulin [Mass ratio] 0.6 {ratio} Normal [facility] Comment on above: Performed By: #### C MP #### [facility] [address] [place] [address] Dr. Itzel Lerma ALP [Catalytic activity/Vol] 90 U/L Normal 46-116 [facility] Comment on above: Performed By: #### C MP #### [facility] [address] [place] [address] Dr. Itzel Lerma ALT [Catalytic activity/Vol] 12 U/L Critically low 16-63 [facility] Comment on above: Performed By: #### C MP #### [facility] [address] [place] [address] Dr. Itzel Lerma Anion gap [Moles/Vol] 18.2 mmol/L Normal [facility] Comment on above: Performed By: #### C MP #### [facility] [address] [place] [address] Dr. Itzel Lerma AST [Catalytic activity/Vol] 17 U/L Normal 15-37 [facility] Comment on above: Performed By: #### C MP #### [facility] [address] [place] [address] Dr. Itzel Lerma Bilirubin [Mass/Vol] 0.8 mg/dL Normal 0.2-1.0 [facility] Comment on above: Performed By: #### C MP #### [facility] [address] [place] [address] Dr. Itzel Lerma Calcium [Mass/Vol] 7.9 mg/dL Critically low 8.5-10.1 [facility] Comment on above: Performed By: #### C MP #### [facility] [address] [place] [address] Dr. Itzel Lerma Chloride [Moles/Vol] 92 mmol/L Critically low 98-107 [facility] Comment on above: Performed By: #### C MP #### [facility] [address] [place] [address] Dr. Itzel Lerma CO2 [Moles/Vol] 14.0 mmol/L Critically low 21.0-32.0 [facility] Comment on above: Performed By: #### C MP #### [facility] [address] [place] [address] Dr. Itzel Lerma Creatinine [Mass/Vol] 2.74 mg/dL Critically high 0.70-1.30 [facility] Comment on above: Performed By: #### C MP #### [facility] [address] [place] [address] Dr. Itzel Lerma EGFR-AF MONEGASQUE 27 mL/min/1.73m2 Critically low >=60 [facility] Comment on above: Performed By: #### C MP #### [facility] [address] [place] [address] Dr. Itzel Lerma EGFR-NON AF MONEGASQUE 22 mL/min/1.73m2 Critically low >=60 [facility] Comment on above: Performed By: #### C MP #### [facility] [address] [place] [address] Dr. Itzel Lerma Globulin (S) [Mass/Vol] 4.9 g/dL Normal [facility] Comment on above: Performed By: #### C MP #### [facility] [address] [address] [address] Itzel Lerma Glucose [Mass/Vol] 169 mg/dL Critically high 74-106 T [facility] Comment on above: Performed By: #### C MP #### [facility] [address] [address] [address] Itzel Lerma Potassium [Moles/Vol] 4.2 mmol/L Normal 3.5-5.1 [facility] Comment on above: Performed By: #### C MP #### [facility] [address] [address] [address] Itzel Lerma Protein [Mass/Vol] 7.9 g/dL Normal 6.4-8.2 [facility] Comment on above: Performed By: #### C MP #### [facility] [address] [address] [address] Itzel Lerma Sodium [Moles/Vol] 120 mmol/L Critically low 136-145 [facility] Comment on above: Performed By: #### C MP #### [facility] [address] [address] [address] Itzel Lerma Urea nitrogen [Mass/Vol] 69.0 mg/dL Critically high 7.0-18.0 [facility] Comment on above: Performed By: #### C MP #### [facility] [address] [address] [address] Itzel Lerma Urea nitrogen/Creatinine [Mass ratio] 25.2 mg/mg Normal [facility] Comment on above: Performed By: #### C MP #### [facility] [address] [address] [address] Itzel Lerma PROTIMEon 07-09-2022 INR Coag (PPP) [Relative time] 5.18 {INR} Critically high [facility] Comment on above: Performed By: #### U A #### [facility] [address] [address] [address] Itzel Lerma INR GUIDELINES SEE BELOW Normal [facility] Comment on above: Result Comment: MIKAL RED INR: 2.0 - 3.0 CONDITIONS NOT LISTED BELOW 2.5 - 3.5 FOR PROSTHETIC HEART VALVE REPLACEMENT 2.5 - 3.5 RECURRENT THROMBOSIS Performed By: #### U A #### [facility] [address] [address] [address] Itzel Lerma PT Coag (PPP) [Time] 50.2 s Critically high 9.0-11.6 [facility] Comment on above: Performed By: #### U A #### [facility] [address] [address] [address] Itzel Lerma PTTon 07-09-2022 aPTT Coag (Bld) [Time] 62.9 s Critically high 22.3-36.2 [facility] Comment on above: Performed By: #### U A #### [facility] [address] [place] [address] Dr. Itzel Lerma TSHon 07-09-2022 TSH 1.544 uIU/mL Normal 0.358-3.740 [facility] Comment on above: Performed By: #### O JESSE #### [facility] [address] [place] [address] Dr. Itzel Lerma Vital Signs Date Time Vital Sign Value Performing Clinician Facility 01-10-2023 13:11-040 Body height 172.72 cm MD Ivan Lopez Work Phone: [facility] 01-10-2023 13:11-040 Body temperature 97.8 [degF] MD Ivan Lopez Work Phone: [facility] 01-10-2023 13:11-040 Body weight 71.4 kg MD Ivan Lopez Work Phone: [facility] 01-10-2023 13:11-040 Diastolic blood pressure 84 mm[Hg] MD Ivan Lopez Work Phone: [facility] 01-10-2023 13:11-040 Heart rate 73 /min MD Ivan Lopez Work Phone: [facility] 01-10-2023 13:11-0400 Respiratory rate 20 /min MD Ivan Lopez Work Phone: [facility] 01-10-2023 13:11-0400 SaO2% (BldA) [Mass fraction] 99 % MD Ivan Lopez Work Phone: [facility] 01-10-2023 13:11-0400 Systolic blood pressure 142 mm[Hg] MD Ivan Lopez Work Phone: [facility] 05-23-2022 15:00-0400 Body height 172.72 cm Yves Juvenal Other [facility] 05-23-2022 15:00-0400 Body mass index (BMI) [Ratio] 25.09 kg/m2 Yves Infor Other [facility] Other 05-23-2022 15:00-0400 Body weight 74.84 kg Yves Infor Other [facility] Other 02-21-2022 15:00-0400 Body height 172.72 cm Yves Infor Other [facility] Other 02-21-2022 15:00-0400 Body mass index (BMI) [Ratio] 26 kg/m2 Yves Infor Other [facility] Other 02-21-2022 15:00-0400 Body weight 77.57 kg Yves Infor Other [facility] Other 02-21-2022 15:00-0400 Diastolic blood pressure 81 mm[Hg] Yves Sanford Other [facility] Other 02-21-2022 15:00-0400 Systolic blood pressure 118 mm[Hg] Yves Sanford Other [facility] Other 11-22-2021 14:30-0500 Body height 172.72 cm Yves Sanford Other [facility] Other 11-22-2021 14:30-0500 Body mass index (BMI) [Ratio] 26.76 kg/m2 Yves Sanford Other [facility] Other 11-22-2021 14:30-0500 Body weight 79.83 kg Yves Sanford Other [facility] Other 11-22-2021 14:30-0500 Diastolic blood pressure 70 mm[Hg] Yves Sanford Other [facility] Other 11-22-2021 14:30-0500 Systolic blood pressure 121 mm[Hg] Yves Sanford Other [facility] Other Encounters Encounter Date Encounter Type Care Provider Facility Start: 01-10-2023 End: 01-10-2023 Emergency department patient visit Ajit Rivero Facility:[facility] Start: 01-10-2023 End: 01-10-2023 Emergency department patient visit MD Ivan Lopez Work Phone: [facility] Work Phone: Start: 11-24-2022 End: 11-24-[address] DOCTOR CARDENAS Facility:[facility] Start: 11-19-2022 End: 11-23-2022 Evaluation and management of inpatient DR DOCTOR CARDENAS Facility:[facility] Start: 10-29-2022 End: 10-29-2022 ambulatory Yves Sanford Other [facility] Other Start: 10-29-2022 Telephone encounter Yves Zarate ck [facility] Start: 07-11-2022 ambulatory Facility:[facility] Start: 07-10-2022 End: 07-11-[address] DOCTOR CARDENAS Facility:[facility] Start: 05-23-2022 End: 05-23-2022 ambulatory Yves Sanford Other [facility] Other Start: 05-23-2022 Office outpatient visit 15 minutes Yves Sanford [facility] Start: 02-21-2022 End: 02-21-2022 ambulatory Yves Sanford Other [facility] Other Start: 02-21-2022 Office outpatient visit 15 minutes Yves Sanford [facility] Start: 11-22-2021 End: 11-22-2021 ambulatory Yves Sanford Other [facility] Other Start: 11-22-2021 Office outpatient ne w 45 minutes Yves Sanford [facility] Procedures Date Procedure Procedure Detail Performing Clinician Start: 01-10-2023 CT of head without contrast MD Ivan Lopez Work Phone: Start: 07-10-[address] DOCTOR CARDENAS Comment on above: Performed By: #### U A #### [facility] [address] [place] [address] Dr. Itzel Lerma Plan of Treatment Date Care Activity Detail Author Patient Education Head Injury in Adults ( [place]) [facility] Work Phone: Patient referral [facility] Work Phone: Payers Date Payer Category Payer Self-pay [id number] 2019 Unknown [id number] 2.. [id number] 1959 Medicare [id number] 1940 Unknown [id number] 1940 Unknown [id number] 1940 Unknown [id number] Medicare Medicare Outpatient [id number] Unknown [employer] [id number] Unknown [id number] Social History Date Type Detail Facility Sex Assigned At [facility] Other Start: 01-10-2023 Tobacco smoking stat RUSTIS Never smoked tobacco (finding) [facility] Start: 1940 Sex Assigned At Male [facility] Evaluation note 05-23-2022 Note Date & Type Note Facility 05-23-2022 Evaluation note Encounter Date Diagnosis Assessment Notes Apr, Diarrhea (ICD-10 - R19.7) patient states does not seem to bad patient does use the imodium as needed Apr, Nausea (ICD-10 - R11.0) will start zofran [facility] Other Evaluation note 02-21-2022 Note Date & Type Note Facility 02-21-2022 Evaluation note Encounter Date Diagnosis Assessment Notes January, Weight loss (ICD-10 - R63.4) January, Diarrhea (ICD-10 - R19.7) Start Imodium every morning Encouraged low fodmap diet. Education given to patient again. 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) January, Frequent bowel movements (ICD-10 - R19.4) [facility] Other Evaluation note 11-22-2021 Note Date & Type Note Facility 11-22-2021 Evaluation note Encounter Date Diagnosis Assessment Notes Oct, Weight loss (ICD-10 - R63.4) OBTAIN RECORDS FROM [facility] INPT STAY COPY OF LOW FODMAP DIET GIVEN TO PT RTO 3 MONTHS Oct, Diarrhea (ICD-10 - R19.7) [facility] Other Evaluation note Note Date & Type Note Facility Evaluation note No assessment information availa [facility] Work Phone: Evaluation note Note Date & Type Note Facility Evaluation note No Information [facility] Other History general Narrative - Reported Note Date & Type Note Facility History general Narrative - Reported Type Surgical History bowel resection [facility] Other Reason for visit Narrative Note Date & Type Note Facility Reason for visit Narrative REFERRED BY Trinidad LOPEZ FOR WEIGHT LOSS. PT DOES TAKE MEDICATIONS, HOWEVER HE DOES NOT RECALL NAMES OR DOSAGES OR HAVE A LIST TO REVIEW, (REFERRAL NOTE RECEIVED) [facility] Other Chief Complaint and Reason for Visit [...] KNOW NAMES OF MEDICATIONS HE IS ON.[facility] Care Teams (unrecognized sec tion and [...] DATE CREATED AUTHOR 'S ORGANIZ ATION 03/18/2023 [facility] DATE CREATED AUTHOR AUTHOR'S DANIEL PERALTA 01/27/2024 [facility] FOR RECORDS PERTAINING TO [...] BE BASED ON THE PRIMARY CLINICAL RECORDS. [facility] [employer] [facility]. provides no warranty or guarantee of the accuracy or completeness of information in this document.
--- NOTE | 2024-06-27 14:32 | ECG_ITS ---
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
--- NOTE | 2024-06-27 14:32 | ED_ITS ---
HPI HPI - General Adult General Chief complaint: Nausea/Vomiting/Diarrhea Stated complaint: WEAKNESS Time Seen by Provider: 06/27/24 14:29 Source: patient Mode of arrival: Wheelchair Limitations: no limitations History of Present Illness HPI narrative: 84-year-old male presents with his daughter to the emergency department for a week and having nausea and vomiting. She is worried he is dehydrated. He has a history of gastroparesis and she states he gets dehydrated very easily. He lives by himself. No diarrhea or fever. No hematemesis. Related Data Home Medications ?Medication ?Instructions ?Recorded ?Confirmed atorvastatin 10 mg tablet 10 mg PO QPM 03/14/23 05/30/24 empagliflozin 25 mg tablet 12.5 mg PO DAILY 03/14/23 05/30/24 finasteride 5 mg tablet 5 mg PO DAILY 03/14/23 05/30/24 metoprolol succinate 100 mg 100 mg PO DAILY 03/14/23 05/30/24 capsule sprinkle, ext. release 24 hr (Kapspargo Sprinkle) pantoprazole 40 mg tablet,delayed 40 mg PO DAILY 03/14/23 05/30/24 release spironolactone 25 mg tablet 25 mg PO QAM 03/14/23 05/30/24 (Aldactone) tamsulosin 0.4 mg capsule 0.4 mg PO Q24H 03/14/23 05/30/24 warfarin 2.5 mg tablet 2.5 mg PO .COMPLEX 03/14/23 05/30/24 warfarin 5 mg tablet 5 mg PO .COMPLEX 03/14/23 05/30/24 brimonidine 0.2 %-timolol 0.5 % 1 drp ophthalmic (eye) QAM 05/30/24 05/30/24 eye drops hydrocodone 5 mg-acetaminophen 325 1 tab PO Q6H 05/30/24 05/30/24 mg tablet latanoprost 0.005 % eye drops 1 drp ophthalmic (eye) QPM 05/30/24 05/30/24 levothyroxine 50 mcg tablet 50 mcg PO DAILY 05/30/24 05/30/24 (Euthyrox) metoclopramide HCl 10 mg tablet 10 mg PO BID 05/30/24 05/30/24 sacubitril 24 mg-valsartan 26 mg 1 tab PO BID 05/30/24 05/30/24 tablet (Entresto) Allergies Allergy/AdvReac Type Severity Reaction Status Date / Time ondansetron [From Zofran] AdvReac Mild Vomiting Verified 06/27/24 14:11 Opioid HPI Opioid Management Most Recent Opioid Data: Last Pain Scale 4 05/30/24 14:34 Review of Systems ROS Narrative A ten point review of systems is negative except as noted above. 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 General: The patient appears well and in no apparent distress. Patient is resting comfortably on cart. Skin: Warm, dry, no pallor noted. There is no rash noted. Head: Normocephalic, atraumatic Eye: Normal conjunctiva, no drainage Ears, Nose, Mouth, and Throat: oral mucosa is slightly dry. Nares patent. Cardiovascular: Regular Rate and Rhythm, tachycardic Respiratory: Patient is in no distress, no accessory muscle use, lungs are clear to auscultation, no wheezing, rales or rhonchi Back: non-tender GI: Soft and nontender Musculoskeletal: The patient has no evidence of calf tenderness, no pitting edema, symmetrical pulses noted bilaterally Neurological: Awake and alert Psychiatric: Cooperative Constitutional Vital Signs, click to edit/add: Last Vital Signs Temp 97.8 F 06/27/24 14:11 Pulse 118 H 06/27/24 15:00 Resp 20 06/27/24 15:00 BP 100/73 06/27/24 15:00 Pulse Ox 98 06/27/24 14:30 O2 Del Method Room Air 06/27/24 14:11 Course Vital Signs Vital signs: Vital Signs Temperature 97.8 F 06/27/24 14:11 Pulse Rate 122 H 06/27/24 14:11 Respiratory Rate 18 06/27/24 14:11 Blood Pressure 113/84 06/27/24 14:11 Pulse Oximetry 97 06/27/24 14:11 Oxygen Delivery Method Room Air 06/27/24 14:11 Temperature 97.8 F 06/27/24 14:11 Pulse Rate 118 H 06/27/24 15:00 Respiratory Rate 20 06/27/24 15:00 Blood Pressure 100/73 06/27/24 15:00 Pulse Oximetry 98 06/27/24 14:30 Oxygen Delivery Method Room Air 06/27/24 14:11 Medical Decision Making MDM Narrative Medical decision making narrative: The feels lately better now after fluids and Zofran and he is being admitted for observation. COVID and influenza test are pending. Findings are discussed with the patient and his daughter. Differential Diagnosis Differential Diagnosis: Dehydration, viral gastroenteritis, food poisoning Lab Data Lab results reviewed: Yes I reviewed the patient's lab results Labs: Lab Results 06/27/24 Range/Units 14:21 WBC 7.6 (4.0-11.0) 10^3/uL RBC 4.87 (4.70-6.10) 10^6/uL Hgb 15.7 (14.0-18.0) g/dL Hct 47.5 (42.0-54.0) % MCV 97.5 H (80.0-94.0) fL MCH 32.2 (25.9-34.0) pg MCHC 33.1 (29.9-35.2) g/dL RDW 14.5 (11.0-15.0) % Plt Count 230 (150-450) 10^3/uL MPV 9.7 (9.5-13.5) fL Neut % (Auto) 80.8 H (43.0-75.0) % Lymph % (Auto) 10.4 L (20.5-60.0) % Stewart % (Auto) 6.7 (1.7-12.0) % Eos % (Auto) 1.1 (0.9-7.0) % Baso % (Auto) 0.3 (0.2-2.0) % Neut # (Auto) 6.2 (1.4-6.5) 10^3/uL Lymph # (Auto) 0.8 L (1.2-3.8) 10^3/uL Stewart # (Auto) 0.5 (0.3-0.8) 10^3/uL Eos # (Auto) 0.1 (0.0-0.7) 10^3/uL Baso # (Auto) 0.0 (0.0-0.1) 10^3/uL Abs Immat Gran (auto) 0.05 H (0.00-0.03) 10^3/uL Imm/Tot Granulo (auto) 0.7 H (0.0-0.5) % Sodium 130 L (136-145) mmol/L Potassium 4.3 (3.5-5.1) mmol/L Chloride 98 (98-107) mmol/L Carbon Dioxide 22.0 (21.0-32.0) mmol/L Anion Gap 14.3 BUN 46.0 H (7.0-18.0) mg/dL Creatinine 1.94 H (0.70-1.30) mg/dL Est GFR ( Amer) 40 L (>=60) Est GFR (Non-Af Amer) 33 L (>=60) BUN/Creatinine Ratio 23.7 Glucose 181 H (74-106) mg/dL Calcium 9.6 (8.5-10.1) mg/dL Troponin I High Sens 7.9 (4.0-76.1) pg/mL ECG Data Attestation: I personally reviewed and interpreted this ECG as follows: (EKG on my interpretation shows A-fib with RVR) Discharge Plan Discharge Chief Complaint: Nausea/Vomiting/Diarrhea Clinical Impression: Nausea and vomiting, Generalized weakness Patient Disposition: Admitted as Observation Time of Disposition Decision: :05 Condition: Good
[2024-06-27 14:38] LABS: Basophils Percent Auto 0.3 % (0.2-2.0); Eosinophils Absolute Auto 0.1 10^3/uL (0.0-0.7); Eosinophils Percent Auto 1.1 % (0.9-7.0); Hematocrit 47.5 % (42.0-54.0); Hemoglobin 15.7 g/dL (14.0-18.0); Immature Granulocytes Abs Auto 0.05 10^3/uL (0.00-0.03); Immature Granulocytes Pct Auto 0.7 % (0.0-0.5); Lymphocytes Absolute Auto 0.8 10^3/uL (1.2-3.8); Lymphocytes Percent Auto 10.4 % (20.5-60.0); Mean Corpuscular HGB Conc 33.1 g/dL (29.9-35.2); Mean Corpuscular Hemoglobin 32.2 pg (25.9-34.0); Mean Corpuscular Volume 97.5 fL (80.0-94.0); Mean Platelet Volume 9.7 fL (9.5-13.5); Monocytes Absolute Auto 0.5 10^3/uL (0.3-0.8); Monocytes Percent Auto 6.7 % (1.7-12.0); Neutrophils Absolute Auto 6.2 10^3/uL (1.4-6.5); Neutrophils Percent Auto 80.8 % (43.0-75.0); Platelet Count 230 10^3/uL (150-450); Red Blood Count 4.87 10^6/uL (4.70-6.10); Red Cell Distribution Width 14.5 % (11.0-15.0); White Blood Count 7.6 10^3/uL (4.0-11.0)
[2024-06-27] MEDS: 0.9 % SODIUM CHLORIDE 500 ML IV (14:45)
[2024-06-27] MEDS: PROMETHAZINE HCL 12.5 MG in 0.9 % SODIUM CHLORIDE 50 ML 202 MG IV (14:57)
[2024-06-27 14:59] LABS: Anion Gap 14.3; BUN Creatinine Ratio 23.7; Calcium 9.6 mg/dL (8.5-10.1); Chloride 98 mmol/L (98-107); Estimated GFR (African America 40 (>=60); Estimated GFR (Non-African Ame 33 (>=60); Glucose 181 mg/dL (74-106); Potassium 4.3 mmol/L (3.5-5.1); Sodium 130 mmol/L (136-145); Troponin I High Sensitivity 7.9 pg/mL (4.0-76.1)
[2024-06-27 16:32] LABS: Influenza Virus A Antigen Negative; Influenza Virus B Antigen Negative; Internal Control Within Normal Limits; SARS-CoV-2 Ag NEGATIVE (NEGATIVE)
--- OUTSIDE RECORDS SUMMARY | 2024-06-27 17:35 | XMS_ITS | CCD ---
Author Organization [facility] Care Team Providers Care Therapeutic Riding Instructor Name Role Phone Yves Sanford Unavailable MD Ivan Lopez Primary Care Provider BERNADINE Rivero Emergency Provider [phone] RONALD, DR ACEVEDO Primary Care Unavailable KEITH [...] VILLALPANDO Consulting Unavailable RAMO TOMPKINS Consulting Unavailable MAROGT DEY Consulting Unavailable MP HERNANDEZ Consulting Unavailable RONALD, DR ACEVEDO Primary Care Unavailable MILAGROS MIXON Consulting Unavailable SCARLET RUSSELL Admitting Unavailable SCARLET RUSSELL Attending Unavailable Ajit Rivero Attending Unavailable Ajit Rivero Admitting Unavailable Ivan Lopez Primary Care Unavailable Allergies Allergy Classification Reported Allergen(s) Allergy Type Date of Onset Reaction(s) Facility (2 sources) Ondansetron; Translations: [ondansetron] Drug Allergy 01-10-2023 [facility] (1 source) Ondansetron Drug Allergy 11-19-2022 [facility] Repository Medications Current Medications Medication Drug Class(es) [...] Onset: 02-11-2023 Episodic Other aftercare (1 source) manager terminal (current) use of anticoagulants; Translations: [FDC CURRNT USE ANTICOAGULANTS] Onset: 02-11-2023 Episodic Other aftercare (1 source) Other extermination supervisor (current) drug therapy; Translations: [OTH EMBALMER ASSISTANT CURRENT DRUG THERAPY] Onset: 02-11-2023 Episodic Other [...] Facil ity Lab Reportson 03-17-2023 Lab Reports [id number] Normal [facility] STOOL CULTUREon 11-26-2022 Campylobacter Culture Final report Normal [facility] Comment on above: Performed By: #### C XSTOOL #### [facility] [address] [place] [address] Dr. Itzel Lerma E coli Shiga Toxin EIA Negative Normal Negative [facility] Comment on above: Performed By: #### C XSTOOL #### [facility] [address] [place] [address] Dr. Itzel Lerma Result 1 Comment Normal [facility] Comment on above: Result Comment: No S almonella or Shigella recovered. Performed By: #### C XSTOOL #### [facility] [address] [place] [address] Dr. Itzel Lerma Result Comment: No C ampylobacter species isolated. Salmonella/Shigella Screen Final report Normal [facility] Comment on above: Performed By: #### C XSTOOL #### [facility] [address] [address] [address] Itzel Lerma BNPon 11-24-2022 Natriuretic peptide B (Bld) [Mass/Vol] 1615.0 pg/mL Normal <=1,800.0 [facility] Comment on above: Performed By: #### O JESSE #### [facility] [address] [place] [address] Dr. Itzel Lerma CBC AUTO DIFFon 11-24-2022 BASO # 0.0 103/ul Normal 0.0-0.1 [facility] Comment on above: Performed By: #### C XSTOOL #### [facility] [address] [place] [address] Dr. Itzel Lerma Basophils/100 WBC (Bld) 0.5 % Normal 0.2-2.0 [facility] Comment on above: Performed By: #### C XSTOOL #### [facility] [address] [place] [address] Dr. Itzel Lerma EO # 0.1 103/ul Normal 0.0-0.7 [facility] Comment on above: Performed By: #### C XSTOOL #### [facility] [address] [place] [address] Dr. Itzel Lerma Eosinophils/100 WBC (Bld) 1.4 % Normal 0.9-7.0 [facility] Comment on above: Performed By: #### C XSTOOL #### [facility] [address] [place] [address] Dr. Itzel Lerma Erythrocyte distribution width (RBC) [Ratio] 16.1 % Critically high 11.0-15.0 [facility] Comment on above: Performed By: #### C XSTOOL #### [facility] [address] [place] [address] Dr. Itzel Lerma Hematocrit (Bld) [Volume fraction] 44.1 % Normal 42.0-54.0 [facility] Comment on above: Performed By: #### C XSTOOL #### [facility] [address] [place] [address] Dr. Itzel Lerma Hemoglobin (Bld) [Mass/Vol] 13.9 g/dL Critically low 14.0-18.0 [facility] Comment on above: Performed By: #### C XSTOOL #### [facility] [address] [place] [address] Dr. Itzel Lerma IG # 0.03 10e3/ul Normal 0.00-0.03 [facility] Comment on above: Performed By: #### C XSTOOL #### [facility] [address] [place] [address] Dr. Itzel Lerma IG % 0.5 % Normal 0.0-0.5 [facility] Comment on above: Performed By: #### C XSTOOL #### [facility] [address] [address] [address] Itzel Lerma LYMPH # 0.9 103/ul Critically low 1.2-3.8 [facility] Comment on above: Performed By: #### C XSTOOL #### [facility] [address] [address] [address] Itzel Lerma Lymphocytes/100 WBC (Bld) 14.4 % Critically low 20.5-60.0 [facility] Comment on above: Performed By: #### C XSTOOL #### [facility] [address] [address] [address] Itzel Lerma MANUAL DIFF REQ NO Normal [facility] Comment on above: Performed By: #### C XSTOOL #### [facility] [address] [place] [address] Dr. Itzel Lerma MCH (RBC) [Entitic mass] 27.5 pg Normal 25.9-34.0 [facility] Comment on above: Performed By: #### C XSTOOL #### [facility] [address] [place] [address] Dr. Itzel Lerma MCHC (RBC) [Mass/Vol] 31.5 g/dL Normal 29.9-35.2 [facility] Comment on above: Performed By: #### C XSTOOL #### [facility] [address] [place] [address] Dr. Itzel Lerma MCV (RBC) [Entitic vol] 87.3 fL Normal 80.0-94.0 [facility] Comment on above: Performed By: #### C XSTOOL #### [facility] [address] [address] [address] Itzel Lerma MONO # 0.7 103/ul Normal 0.3-0.8 [facility] Comment on above: Performed By: #### C XSTOOL #### [facility] [address] [place] [address] Dr. Itzel Lerma Monocytes/100 WBC (Bld) 10.6 % Normal 1.7-12.0 [facility] Comment on above: Performed By: #### C XSTOOL #### [facility] [address] [address] [address] Itzel Lerma NEUT # 4.6 103/ul Normal 1.4-6.5 [facility] Comment on above: Performed By: #### C XSTOOL #### [facility] [address] [address] [address] Itzel Lerma Neutrophils/100 WBC (Bld) 72.6 % Normal 43.0-75.0 [facility] Comment on above: Performed By: #### C XSTOOL #### [facility] [address] [place] [address] Dr. Itzel Lerma Platelet mean volume (Bld) [Entitic vol] 10.3 fL Normal 9.5-13.5 [facility] Comment on above: Performed By: #### C XSTOOL #### [facility] [address] [place] [address] Dr. Itzel Lerma PLT 279 103/ul Normal 150-450 [facility] Comment on above: Performed By: #### C XSTOOL #### [facility] [address] [place] [address] Dr. Itzel Lerma RBC 5.05 106/ul Normal 4.70-6.10 [facility] Comment on above: Performed By: #### C XSTOOL #### [facility] [address] [place] [address] Dr. Itzel Lerma WBC 6.3 103/ul Normal 4.0-11.0 [facility] Comment on above: Performed By: #### C XSTOOL #### [facility] [address] [place] [address] Dr. Itzel eLrma PROF CHEM 8 (BAS METB)on Anion gap [Moles/Vol] 15.8 mmol/L Normal [facility] Comment on above: Performed By: #### O JESSE #### [facility] [address] [place] [address] Dr. Itzel Lerma Calcium [Mass/Vol] 9.1 mg/dL Normal 8.5-10.1 [facility] Comment on above: Performed By: #### O JESSE #### [facility] [address] [place] [address] Dr. Itzel Lerma Chloride [Moles/Vol] 102 mmol/L Normal 98-107 [facility] Comment on above: Performed By: #### O JESSE #### [facility] [address] [place] [address] Dr. Itzel Lerma CO2 [Moles/Vol] 19.7 mmol/L Critically low 21.0-32.0 [facility] Comment on above: Performed By: #### O JESSE #### [facility] [address] [place] [address] Dr. Itzel Lerma Creatinine [Mass/Vol] 1.76 mg/dL Critically high 0.70-1.30 [facility] Comment on above: Performed By: #### O JESSE #### [facility] [address] [place] [address] Dr. Itzel Lrema EGFR-AF ALBANIAN 45 mL/min/1.73m2 Critically low >=60 [facility] Comment on above: Performed By: #### O JESSE #### [facility] [address] [place] [address] Dr. Itzel Lerma EGFR-NON AF ALBANIAN 37 mL/min/1.73m2 Critically low >=60 [facility] Comment on above: Performed By: #### O JESSE #### [facility] [address] [place] [address] Dr. Itzel Lerma Glucose [Mass/Vol] 139 mg/dL Critically high 74-106 [facility] Comment on above: Performed By: #### O JESSE #### [facility] [address] [place] [address] Dr. Itzel Lerma Potassium [Moles/Vol] 4.5 mmol/L Normal 3.5-5.1 [facility] Comment on above: Performed By: #### O JESSE #### [facility] [address] [place] [address] Dr. Itzel Lerma Sodium [Moles/Vol] 133 mmol/L Critically low 136-145 [facility] Comment on above: Performed By: #### O JESSE #### [facility] [address] [place] [address] Dr. Itzel Lerma Urea nitrogen [Mass/Vol] 53.0 mg/dL Critically high 7.0-18.0 [facility] Comment on above: Performed By: #### O JESSE #### [facility] [address] [place] [address] Dr. Itzel Lerma Urea nitrogen/Creatinine [Mass ratio] 30.1 mg/mg Normal [facility] Comment on above: Performed By: #### O JESSE #### [facility] [address] [place] [address] Dr. Itzel Lerma PROTIMEon 11-24-2022 INR Coag (PPP) [Relative time] 3.98 {INR} Normal [facility] Comment on above: Performed By: #### U A #### [facility] [address] [place] [address] Dr. Itzel Lerma INR GUIDELINES SEE BELOW Normal [facility] Comment on above: Result Comment: MIKAL RED INR: 2.0 - 3.0 CONDITIONS NOT LISTED BELOW 2.5 - 3.5 FOR PROSTHETIC HEART VALVE REPLACEMENT 2.5 - 3.5 RECURRENT THROMBOSIS Performed By: #### U A #### [facility] [address] [place] [address] Dr. Itzel Lerma PT Coag (PPP) [Time] 39.0 s Critically high 9.0-11.6 [facility] Comment on above: Performed By: #### U A #### [facility] [address] [place] [address] Dr. Itzel Lerma PTTon 11-24-2022 aPTT Coag (Bld) [Time] 44.8 s Critically high 22.3-36.2 [facility] Comment on above: Performed By: #### U A #### [facility] [address] [place] [address] Dr. Itzel Lerma XR KUB 1 VIEWon [...] WILSON JOHN Date: 2022-11-24 07:43 Normal [facility] CBC AUTO DIFFon 11-23-2022 BASO # 0.0 103/ul Normal 0.0-0.1 [facility] Comment on above: Performed By: #### O SMO #### [facility] [address] [address] [address] Itzel Lerma Basophils/100 WBC (Bld) 0.3 % Normal 0.2-2.0 [facility] Comment on above: Performed By: #### O SMO #### [facility] [address] [address] [address] Itzel Lerma EO # 0.1 103/ul Normal 0.0-0.7 [facility] Comment on above: Performed By: #### O SMO #### [facility] [address] [address] [address] Itzel Lerma Eosinophils/100 WBC (Bld) 1.6 % Normal 0.9-7.0 [facility] Comment on above: Performed By: #### O SMO #### [facility] [address] [address] [address] Itzel Lerma Erythrocyte distribution width (RBC) [Ratio] 15.9 % Critically high 11.0-15.0 [facility] Comment on above: Performed By: #### O SMO #### [facility] [address] [place] [address] Dr. Itzel Lerma Hematocrit (Bld) [Volume fraction] 42.4 % Normal 42.0-54.0 [facility] Comment on above: Performed By: #### O SMO #### [facility] [address] [place] [address] Dr. Itzel Lerma Hemoglobin (Bld) [Mass/Vol] 13.1 g/dL Critically low 14.0-18.0 [facility] Comment on above: Performed By: #### O SMO #### [facility] [address] [place] [address] Dr. Itzel Lerma IG # 0.04 10e3/ul Critically high 0.00-0.03 [facility] Comment on above: Performed By: #### O SMO #### [facility] [address] [place] [address] Dr. Itzel Lerma IG % 0.7 % Critically high 0.0-0.5 [facility] Comment on above: Performed By: #### O SMO #### [facility] [address] [place] [address] Dr. Itzel Lerma LYMPH # 0.9 103/ul Critically low 1.2-3.8 [facility] Comment on above: Performed By: #### O SMO #### [facility] [address] [place] [address] Dr. Itzel Lerma Lymphocytes/100 WBC (Bld) 15.6 % Critically low 20.5-60.0 [facility] Comment on above: Performed By: #### O SMO #### [facility] [address] [place] [address] Dr. Itzel Lerma MANUAL DIFF REQ NO Normal [facility] Comment on above: Performed By: #### O SMO #### [facility] [address] [place] [address] Dr. Itzel Lerma MCH (RBC) [Entitic mass] 27.5 pg Normal 25.9-34.0 [facility] Comment on above: Performed By: #### O SMO #### [facility] [address] [place] [address] Dr. Itzel Lerma MCHC (RBC) [Mass/Vol] 30.9 g/dL Normal 29.9-35.2 [facility] Comment on above: Performed By: #### O SMO #### [facility] [address] [address] [address] Itzel Lerma MCV (RBC) [Entitic vol] 88.9 fL Normal 80.0-94.0 [facility] Comment on above: Performed By: #### O SMO #### [facility] [address] [address] [address] Itzel Lerma MONO # 0.7 103/ul Normal 0.3-0.8 [facility] Comment on above: Performed By: #### O SMO #### [facility] [address] [place] [address] Dr. Itzel Lerma Monocytes/100 WBC (Bld) 12.1 % Critically high 1.7-12.0 [facility] Comment on above: Performed By: #### O SMO #### [facility] [address] [place] [address] Dr. Itzel Lerma NEUT # 4.0 103/ul Normal 1.4-6.5 [facility] Comment on above: Performed By: #### O SMO #### [facility] [address] [place] [address] Dr. Itzel Lerma Neutrophils/100 WBC (Bld) 69.7 % Normal 43.0-75.0 [facility] Comment on above: Performed By: #### O SMO #### [facility] [address] [place] [address] Dr. Itzel Lerma Platelet mean volume (Bld) [Entitic vol] 10.6 fL Normal 9.5-13.5 [facility] Comment on above: Performed By: #### O SMO #### [facility] [address] [place] [address] Dr. Itzel Lerma PLT 200 103/ul Normal 150-450 [facility] Comment on above: Performed By: #### O SMO #### [facility] [address] [place] [address] Dr. Itzel Lerma RBC 4.77 106/ul Normal 4.70-6.10 [facility] Comment on above: Performed By: #### O SMO #### [facility] [address] [place] [address] Dr. Itzel Lerma WBC 5.8 103/ul Normal 4.0-11.0 [facility] Comment on above: Performed By: #### O SMO #### [facility] [address] [address] [address] Itzel Lerma PROF CHEM 8 (BAS METB)on Anion gap [Moles/Vol] 14.3 mmol/L Normal [facility] Comment on above: Performed By: #### O SMO #### [facility] [address] [place] [address] Dr. Itzel Lerma Calcium [Mass/Vol] 9.1 mg/dL Normal 8.5-10.1 [facility] Comment on above: Performed By: #### O SMO #### [facility] [address] [place] [address] Dr. Itzel Lerma Chloride [Moles/Vol] 102 mmol/L Normal 98-107 [facility] Comment on above: Performed By: #### O SMO #### [facility] [address] [place] [address] Dr. Itzel Lerma CO2 [Moles/Vol] 21.4 mmol/L Normal 21.0-32.0 [facility] Comment on above: Performed By: #### O SMO #### [facility] [address] [place] [address] Dr. Itzel Lerma Creatinine [Mass/Vol] 1.58 mg/dL Critically high 0.70-1.30 [facility] Comment on above: Performed By: #### O SMO #### [facility] [address] [place] [address] Dr. Itzel Lerma EGFR-AF ALBANIAN 51 mL/min/1.73m2 Critically low >=60 [facility] Comment on above: Performed By: #### O SMO #### [facility] [address] [place] [address] Dr. Itzel Lerma EGFR-NON AF ALBANIAN 42 mL/min/1.73m2 Critically low >=60 [facility] Comment on above: Performed By: #### O SMO #### [facility] [address] [place], [place] [id number] Dr. Itzel Lerma Glucose [Mass/Vol] 125 mg/dL Critically high 74-106 [facility] Comment on above: Performed By: #### O SMO #### [facility] [address] [address] [address] Itzel Lerma Potassium [Moles/Vol] 4.7 mmol/L Normal 3.5-5.1 [facility] Comment on above: Performed By: #### O SMO #### [facility] [address] [address] [address] Itzel Lerma Sodium [Moles/Vol] 133 mmol/L Critically low 136-145 [facility] Comment on above: Performed By: #### O SMO #### [facility] [address] [place] [address] Dr. Itzel Lerma Urea nitrogen [Mass/Vol] 45.0 mg/dL Critically high 7.0-18.0 [facility] Comment on above: Performed By: #### O SMO #### [facility] [address] [place] [address] Dr. Itzel Lerma Urea nitrogen/Creatinine [Mass ratio] 28.5 mg/mg Normal [facility] Comment on above: Performed By: #### O SMO #### [facility] [address] [place] [address] Dr. Itzel Lerma PROTIMEon 11-23-2022 INR Coag (PPP) [Relative time] 4.89 {INR} Critically high [facility] Comment on above: Performed By: #### P T #### [facility] [address] [place] [address] Dr. Itzel Lerma INR GUIDELINES SEE BELOW Normal [facility] Comment on above: Result Comment: MIKAL RED INR: 2.0 - 3.0 CONDITIONS NOT LISTED BELOW 2.5 - 3.5 FOR PROSTHETIC HEART VALVE REPLACEMENT 2.5 - 3.5 RECURRENT THROMBOSIS Performed By: #### P T #### [facility] [address] [place] [address] Dr. Itzel Lerma PT Coag (PPP) [Time] 47.4 s Critically high 9.0-11.6 [facility] Comment on above: Performed By: #### P T #### [facility] [address] [address] [address] Itzel Lerma CBC AUTO DIFFon 11-22-2022 BASO # 0.0 103/ul Normal 0.0-0.1 [facility] Comment on above: Performed By: #### C BC #### [facility] [address] [place] [address] Dr. Itzel Lerma Basophils/100 WBC (Bld) 0.4 % Normal 0.2-2.0 [facility] Comment on above: Performed By: #### C BC #### [facility] [address] [place] [address] Dr. Itzel Lerma EO # 0.1 103/ul Normal 0.0-0.7 [facility] Comment on above: Performed By: #### C BC #### [facility] [address] [place] [address] Dr. Itzel Lerma Eosinophils/100 WBC (Bld) 1.4 % Normal 0.9-7.0 [facility] Comment on above: Performed By: #### C BC #### [facility] [address] [place] [address] Dr. Itzel Lerma Erythrocyte distribution width (RBC) [Ratio] 16.3 % Critically high 11.0-15.0 [facility] Comment on above: Performed By: #### C BC #### [facility] [address] [place] [address] Dr. Itzel Lerma Hematocrit (Bld) [Volume fraction] 41.1 % Critically low 42.0-54.0 [facility] Comment on above: Performed By: #### C BC #### [facility] [address] [place] [address] Dr. Itzel Lerma Hemoglobin (Bld) [Mass/Vol] 12.5 g/dL Critically low 14.0-18.0 [facility] Comment on above: Performed By: #### C BC #### [facility] [address] [place] [address] Dr. Itzel Lerma IG # 0.03 10e3/ul Normal 0.00-0.03 [facility] Comment on above: Performed By: #### C BC #### [facility] [address] [place] [address] Dr. Itzel Lerma IG % 0.4 % Normal 0.0-0.5 [facility] Comment on above: Performed By: #### C BC #### [facility] [address] [place] [address] Dr. Itzel Lerma LYMPH # 1.0 103/ul Critically low 1.2-3.8 [facility] Comment on above: Performed By: #### C BC #### [facility] [address] [place] [address] Dr. Itzel Lerma Lymphocytes/100 WBC (Bld) 14.3 % Critically low 20.5-60.0 [facility] Comment on above: Performed By: #### C BC #### [facility] [address] [place] [address] Dr. Itzel Lerma MANUAL DIFF REQ NO Normal [facility] Comment on above: Performed By: #### C BC #### [facility] [address] [place] [address] Dr. Itzel Lerma MCH (RBC) [Entitic mass] 27.4 pg Normal 25.9-34.0 [facility] Comment on above: Performed By: #### C BC #### [facility] [address] [place] [address] Dr. Itzel Lerma MCHC (RBC) [Mass/Vol] 30.4 g/dL Normal 29.9-35.2 [facility] Comment on above: Performed By: #### C BC #### [facility] [address] [place] [address] Dr. Itzel Lerma MCV (RBC) [Entitic vol] 89.9 fL Normal 80.0-94.0 [facility] Comment on above: Performed By: #### C BC #### [facility] [address] [place] [address] Dr. Itzel Lerma MONO # 0.8 103/ul Normal 0.3-0.8 [facility] Comment on above: Performed By: #### C BC #### [facility] [address] [address] [address] Itzel Lerma Monocytes/100 WBC (Bld) 11.1 % Normal 1.7-12.0 [facility] Comment on above: Performed By: #### C BC #### [facility] [address] [address] [address] Itzel Lerma NEUT # 5.2 103/ul Normal 1.4-6.5 [facility] Comment on above: Performed By: #### C BC #### [facility] [address] [address] [address] Itzel Lerma Neutrophils/100 WBC (Bld) 72.4 % Normal 43.0-75.0 [facility] Comment on above: Performed By: #### C BC #### [facility] [address] [place] [address] Dr. Itzel Lerma Platelet mean volume (Bld) [Entitic vol] 10.1 fL Normal 9.5-13.5 [facility] Comment on above: Performed By: #### C BC #### [facility] [address] [address] [address] Itzel Lerma PLT 210 103/ul Normal 150-450 [facility] [facility] Comment on above: Performed By: #### C BC #### [facility] [address] [place] [address] Dr. Itzel Lerma RBC 4.57 106/ul Critically low 4.70-6.10 [facility] Comment on above: Performed By: #### C BC #### [facility] [address] [address] [address] Itzel Lerma WBC 7.2 103/ul Normal 4.0-11.0 [facility] Comment on above: Performed By: #### C BC #### [facility] [address] [place] [address] Dr. Itzel Lerma PROF CHEM 8 (BAS METB)on Anion gap [Moles/Vol] 13.8 mmol/L Normal [facility] Comment on above: Performed By: #### O SMO #### [facility] [address] [address] [address] Itzel Lerma Calcium [Mass/Vol] 8.7 mg/dL Normal 8.5-10.1 [facility] Comment on above: Performed By: #### O SMO #### [facility] [address] [address] [address] Itzel Lerma Chloride [Moles/Vol] 102 mmol/L Normal 98-107 [facility] Comment on above: Performed By: #### O SMO #### [facility] [address] [address] [address] Itzel Lerma CO2 [Moles/Vol] 20.6 mmol/L Critically low 21.0-32.0 [facility] Comment on above: Performed By: #### O SMO #### [facility] [address] [address] [address] Itzel Lerma Creatinine [Mass/Vol] 1.49 mg/dL Critically high 0.70-1.30 [facility] Comment on above: Performed By: #### O SMO #### [facility] [address] [address] [address] Itzel Lerma EGFR-AF ALBANIAN 55 mL/min/1.73m2 Critically low >=60 [facility] Comment on above: Performed By: #### O SMO #### [facility] [address] [address] [address] Itzel Lerma EGFR-NON AF ALBANIAN 45 mL/min/1.73m2 Critically low >=60 [facility] Comment on above: Performed By: #### O SMO #### [facility] [address] [address] [address] Itzel Lerma Glucose [Mass/Vol] 105 mg/dL Normal 74-106 [facility] Comment on above: Performed By: #### O SMO #### [facility] [address] [address] [address] Itzel Lerma Potassium [Moles/Vol] 4.4 mmol/L Normal 3.5-5.1 [facility] Comment on above: Performed By: #### O SMO #### [facility] [address] [address] [address] Itzel Lerma Sodium [Moles/Vol] 132 mmol/L Critically low 136-145 Th e [facility] Comment on above: Performed By: #### O SMO #### [facility] [address] [address] [address] Itzel Lerma Urea nitrogen [Mass/Vol] 47.0 mg/dL Critically high 7.0-18.0 [facility] Comment on above: Performed By: #### O SMO #### [facility] [address] [place] [address] Dr. Itzel Lerma Urea nitrogen/Creatinine [Mass ratio] 31.5 mg/mg Normal [facility] Comment on above: Performed By: #### O SMO #### [facility] [address] [place] [address] Dr. Itzel Lerma PROTIMEon 11-22-2022 INR Coag (PPP) [Relative time] 5.94 {INR} Critically high [facility] Comment on above: Performed By: #### C BC #### [facility] [address] [place] [address] Dr. Itzel Lerma INR GUIDELINES SEE BELOW Normal [facility] Comment on above: Result Comment: MIKAL RED INR: 2.0 - 3.0 CONDITIONS NOT LISTED BELOW 2.5 - 3.5 FOR PROSTHETIC HEART VALVE REPLACEMENT 2.5 - 3.5 RECURRENT THROMBOSIS Performed By: #### C BC #### [facility] [address] [place] [address] Dr. Itzel Lerma PT Coag (PPP) [Time] 56.9 s Critically high 9.0-11.6 [facility] Comment on above: Performed By: #### C BC #### [facility] [address] [place] [address] Dr. Itzel Lerma XR KUB 1 VIEWon [...] DORIAN YODER Date: 2022-11-22 08:06 Normal [facility] CBC AUTO DIFFon 11-21-2022 BASO # 0.0 103/ul Normal 0.0-0.1 [facility] Comment on above: Performed By: #### O JESSE #### [facility] [address] [address] [address] Itzel Lerma Basophils/100 WBC (Bld) 0.1 % Critically low 0.2-2.0 [facility] Comment on above: Performed By: #### O JESSE #### [facility] [address] [address] [address] Itzel Lerma EO # 0.1 103/ul Normal 0.0-0.7 [facility] Comment on above: Performed By: #### O JESSE #### [facility] [address] [address] [address] Itzel Lerma Eosinophils/100 WBC (Bld) 1.5 % Normal 0.9-7.0 [facility] Comment on above: Performed By: #### O JESSE #### [facility] [address] [address] [address] Itzel Lerma Erythrocyte distribution width (RBC) [Ratio] 16.3 % Critically high 11.0-15.0 [facility] Comment on above: Performed By: #### O JESSE #### [facility] [address] [address] [address] Itzel Lerma Hematocrit (Bld) [Volume fraction] 42.6 % Normal 42.0-54.0 [facility] Comment on above: Performed By: #### O JESSE #### [facility] [address] [address] [address] Itzel Lerma Hemoglobin (Bld) [Mass/Vol] 13.3 g/dL Critically low 14.0-18.0 [facility] Comment on above: Performed By: #### O JESSE #### [facility] [address] [address] [address] Itzel Lerma IG # 0.02 10e3/ul Normal 0.00-0.03 [facility] Comment on above: Performed By: #### O JESSE #### [facility] [address] [address] [address] Itzel Lerma IG % 0.2 % Normal 0.0-0.5 [facility] Comment on above: Performed By: #### O JESSE #### [facility] [address] [place] [address] Dr. Itzel Lerma LYMPH # 1.0 103/ul Critically low 1.2-3.8 [facility] Comment on above: Performed By: #### O JESSE #### [facility] [address] [place] [address] Dr. Itzel Lerma Lymphocytes/100 WBC (Bld) 12.5 % Critically low 20.5-60.0 [facility] Comment on above: Performed By: #### O JESSE #### [facility] [address] [place] [address] Dr. Itzel Lerma MANUAL DIFF REQ NO Normal [facility] Comment on above: Performed By: #### O JESSE #### [facility] [address] [place] [address] Dr. Itzel Lerma MCH (RBC) [Entitic mass] 27.8 pg Normal 25.9-34.0 [facility] Comment on above: Performed By: #### O JESSE #### [facility] [address] [place] [address] Dr. Itzel Lerma MCHC (RBC) [Mass/Vol] 31.2 g/dL Normal 29.9-35.2 [facility] Comment on above: Performed By: #### O JESSE #### [facility] [address] [place] [address] Dr. Itzel Lerma MCV (RBC) [Entitic vol] 88.9 fL Normal 80.0-94.0 [facility] Comment on above: Performed By: #### O JESSE #### [facility] [address] [address] [address] Itzel Lerma MONO # 0.9 103/ul Critically high 0.3-0.8 [facility] Comment on above: Performed By: #### O JESSE #### [facility] [address] [address] [address] Itzel Lerma Monocytes/100 WBC (Bld) 10.6 % Normal 1.7-12.0 [facility] Comment on above: Performed By: #### O JESSE #### [facility] [address] [address] [address] Itzel Lerma NEUT # 6.1 103/ul Normal 1.4-6.5 [facility] Comment on above: Performed By: #### O JESSE #### [facility] [address] [place] [address] Dr. Itzel Lerma Neutrophils/100 WBC (Bld) 75.1 % Critically high 43.0-75.0 [facility] Comment on above: Performed By: #### O JESSE #### [facility] [address] [place] [address] Dr. Itzel Lerma Platelet mean volume (Bld) [Entitic vol] 9.9 fL Normal 9.5-13.5 [facility] Comment on above: Performed By: #### O JESSE #### [facility] [address] [place] [address] Dr. Itzel Lerma PLT 239 103/ul Normal 150-450 [facility] Comment on above: Performed By: #### O JESSE #### [facility] [address] [address] [address] Itzel Lerma RBC 4.79 106/ul Normal 4.70-6.10 [facility] Comment on above: Performed By: #### O JESSE #### [facility] [address] [place] [address] Dr. Itzel Lerma WBC 8.1 103/ul Normal 4.0-11.0 [facility] Comment on above: Performed By: #### O JESSE #### [facility] [address] [address] [address] Itzel Lerma PROF CHEM 8 (BAS METB)on Anion gap [Moles/Vol] 15.4 mmol/L Normal [facility] Comment on above: Performed By: #### U A #### [facility] [address] [address] [address] Itzel Lerma Calcium [Mass/Vol] 8.9 mg/dL Normal 8.5-10.1 [facility] Comment on above: Performed By: #### U A #### [facility] [address] [address] [address] Itzel Lerma Chloride [Moles/Vol] 102 mmol/L Normal 98-107 [facility] Comment on above: Performed By: #### U A #### [facility] [address] [place] [address] Dr. Itzel Lerma CO2 [Moles/Vol] 18.7 mmol/L Critically low 21.0-32.0 [facility] Comment on above: Performed By: #### U A #### [facility] [address] [address] [address] Itzel Lerma Creatinine [Mass/Vol] 1.47 mg/dL Critically high 0.70-1.30 [facility] Comment on above: Performed By: #### U A #### [facility] [address] [address] [address] Itzel Lerma EGFR-AF ALBANIAN 56 mL/min/1.73m2 Critically low >=60 [facility] Comment on above: Performed By: #### U A #### [facility] [address] [address] [address] Itzel Lerma EGFR-NON AF ALBANIAN 46 mL/min/1.73m2 Critically low >=60 [facility] Comment on above: Performed By: #### U A #### [facility] [address] [address] [address] Itzel Lerma Glucose [Mass/Vol] 103 mg/dL Normal 74-106 [facility] Comment on above: Performed By: #### U A #### [facility] [address] [address] [address] Itzel Lerma Potassium [Moles/Vol] 4.1 mmol/L Normal 3.5-5.1 [facility] Comment on above: Performed By: #### U A #### [facility] [address] [address] [address] Itzel Lerma Sodium [Moles/Vol] 132 mmol/L Critically low 136-145 [facility] Comment on above: Performed By: #### U A #### [facility] [address] [address] [address] Itzel Lerma Urea nitrogen [Mass/Vol] 47.0 mg/dL Critically high 7.0-18.0 [facility] Comment on above: Performed By: #### U A #### [facility] [address] [address] [address] Itzel Lerma Urea nitrogen/Creatinine [Mass ratio] 32.0 mg/mg Normal [facility] Comment on above: Performed By: #### U A #### [facility] [address] [address] [address] Itzel Lerma XR KUB 1 VIEWon [...] DORIAN YODER Date: 2022-11-21 08:08 Normal [facility] CBC AUTO DIFFon 11-20-2022 BASO # 0.0 103/ul Normal 0.0-0.1 [facility] Comment on above: Performed By: #### O SMO #### [facility] [address] [place] [address] Dr. Itzel Lerma Basophils/100 WBC (Bld) 0.3 % Normal 0.2-2.0 [facility] Comment on above: Performed By: #### O SMO #### [facility] [address] [place] [address] Dr. Itzel Lerma EO # 0.1 103/ul Normal 0.0-0.7 [facility] Comment on above: Performed By: #### O SMO #### [facility] [address] [place] [address] Dr. Iztel Lerma Eosinophils/100 WBC (Bld) 0.8 % Critically low 0.9-7.0 [facility] Comment on above: Performed By: #### O SMO #### [facility] [address] [place] [address] Dr. Itzel Lerma Erythrocyte distribution width (RBC) [Ratio] 16.2 % Critically high 11.0-15.0 [facility] Comment on above: Performed By: #### O SMO #### [facility] [address] [place] [address] Dr. Itzel Lerma Hematocrit (Bld) [Volume fraction] 46.2 % Normal 42.0-54.0 [facility] Comment on above: Performed By: #### O SMO #### [facility] [address] [place] [address] Dr. Itzel Lerma Hemoglobin (Bld) [Mass/Vol] 14.2 g/dL Normal 14.0-18.0 [facility] Comment on above: Performed By: #### O SMO #### [facility] [address] [place] [address] Dr. Itzel Lerma IG # 0.04 10e3/ul Critically high 0.00-0.03 [facility] Comment on above: Performed By: #### O SMO #### [facility] [address] [place] [address] Dr. Itzel Lerma IG % 0.3 % Normal 0.0-0.5 [facility] Comment on above: Performed By: #### O SMO #### [facility] [address] [address] [address] Itzel Lerma LYMPH # 1.3 103/ul Normal 1.2-3.8 [facility] Comment on above: Performed By: #### O SMO #### [facility] [address] [place] [address] Dr. Itzel Lerma Lymphocytes/100 WBC (Bld) 10.4 % Critically low 20.5-60.0 [facility] Comment on above: Performed By: #### O SMO #### [facility] [address] [place] [address] Dr. Itzel Lerma MANUAL DIFF REQ NO Normal [facility] Comment on above: Performed By: #### O SMO #### [facility] [address] [place] [address] Dr. Itzel Lerma MCH (RBC) [Entitic mass] 27.6 pg Normal 25.9-34.0 [facility] Comment on above: Performed By: #### O SMO #### [facility] [address] [place] [address] Dr. Itzel Lerma MCHC (RBC) [Mass/Vol] 30.7 g/dL Normal 29.9-35.2 [facility] Comment on above: Performed By: #### O SMO #### [facility] [address] [place] [address] Dr. Itzel Lerma MCV (RBC) [Entitic vol] 89.9 fL Normal 80.0-94.0 [facility] Comment on above: Performed By: #### O SMO #### [facility] [address] [place] [address] Dr. Itzel Lerma MONO # 1.1 103/ul Critically high 0.3-0.8 [facility] Comment on above: Performed By: #### O SMO #### [facility] [address] [place] [address] Dr. Itzle Lerma Monocytes/100 WBC (Bld) 9.5 % Normal 1.7-12.0 [facility] Comment on above: Performed By: #### O SMO #### [facility] [address] [address] [address] Itzel Lerma NEUT # 9.5 103/ul Critically high 1.4-6.5 [facility] Comment on above: Performed By: #### O SMO #### [facility] [address] [address] [address] Itzel Lerma Neutrophils/100 WBC (Bld) 78.7 % Critically high 43.0-75.0 [facility] Comment on above: Performed By: #### O SMO #### [facility] [address] [address] [address] Itzel Lerma Platelet mean volume (Bld) [Entitic vol] 9.6 fL Normal 9.5-13.5 [facility] Comment on above: Performed By: #### O SMO #### [facility] [address] [place] [address] Dr. Itzel Lerma PLT 280 103/ul Normal 150-450 [facility] Comment on above: Performed By: #### O SMO #### [facility] [address] [place] [address] Dr. Itzel Lerma RBC 5.14 106/ul Normal 4.70-6.10 [facility] Comment on above: Performed By: #### O SMO #### [facility] [address] [address] [address] Itzel Lerma WBC 12.0 103/ul Critically high 4.0-11.0 [facility] Comment on above: Performed By: #### O SMO #### [facility] [address] [place] [address] Dr. Itzel Lerma LACTATE/LACTIC ACIDon 2022 Lactate [Moles/Vol] 0.9 mmol/L Normal 0.4-1.9 [facility] Comment on above: Performed By: #### C BC #### [facility] [address] [place] [address] Dr. Itzel Lerma PROF CHEM 8 (BAS METB)on Anion gap [Moles/Vol] 14.9 mmol/L Normal [facility] Comment on above: Performed By: #### B MP #### [facility] [address] [address] [address] Itzel Lerma Calcium [Mass/Vol] 9.7 mg/dL Normal 8.5-10.1 [facility] Comment on above: Performed By: #### B MP #### [facility] [address] [address] [address] Itzel Lerma Chloride [Moles/Vol] 99 mmol/L Normal 98-107 [facility] Comment on above: Performed By: #### B MP #### [facility] [address] [address] [address] Itzel Lerma CO2 [Moles/Vol] 22.7 mmol/L Normal 21.0-32.0 [facility] Comment on above: Performed By: #### B MP #### [facility] [address] [address] [address] Itzel Lerma Creatinine [Mass/Vol] 2.07 mg/dL Critically high 0.70-1.30 [facility] Comment on above: Performed By: #### B MP #### [facility] [address] [address] [address] Itzel Lerma EGFR-AF ALBANIAN 38 mL/min/1.73m2 Critically low >=60 [facility] Comment on above: Performed By: #### B MP #### [facility] [address] [address] [address] Itzel Lerma EGFR-NON AF ALBANIAN 31 mL/min/1.73m2 Critically low >=60 [facility] Comment on above: Performed By: #### B MP #### [facility] [address] [address] [address] Itzel Lerma Glucose [Mass/Vol] 144 mg/dL Critically high 74-106 [facility] Comment on above: Performed By: #### B MP #### [facility] [address] [address] [address] Itzel Lerma Potassium [Moles/Vol] 4.6 mmol/L Normal 3.5-5.1 [facility] Comment on above: Performed By: #### B MP #### [facility] [address] [address] [address] Itzel Lerma Sodium [Moles/Vol] 132 mmol/L Critically low 136-145 Th e [facility] Comment on above: Performed By: #### B MP #### [facility] [address] [address] [address] Itzel Lerma Urea nitrogen [Mass/Vol] 52.0 mg/dL Critically high 7.0-18.0 [facility] Comment on above: Performed By: #### B MP #### [facility] [address] [address] [address] Itzel Lerma Urea nitrogen/Creatinine [Mass ratio] 25.1 mg/mg Normal [facility] Comment on above: Performed By: #### B MP #### [facility] [address] [place] [address] Dr. Itzel Lerma PROTIMEon 11-20-2022 INR Coag (PPP) [Relative time] 2.54 {INR} Normal [facility] Comment on above: Performed By: #### C BC #### [facility] [address] [place] [address] Dr. Itzel Lerma INR GUIDELINES SEE BELOW Normal [facility] Comment on above: Result Comment: MIKAL RED INR: 2.0 - 3.0 CONDITIONS NOT LISTED BELOW 2.5 - 3.5 FOR PROSTHETIC HEART VALVE REPLACEMENT 2.5 - 3.5 RECURRENT THROMBOSIS Performed By: #### C BC #### [facility] [address] [place] [address] Dr. Itzel Lerma PT Coag (PPP) [Time] 25.5 s Critically high 9.0-11.6 [facility] Comment on above: Performed By: #### C BC #### [facility] [address] [place] [address] Dr. Itzel Lerma XR KUB 1 VIEWon [...] DORIAN YODER Date: 2022-11-20 10:52 Normal [facility] CBC AUTO DIFFon 11-19-2022 BASO # 0.0 103/ul Normal 0.0-0.1 [facility] Comment on above: Performed By: #### O SMO #### [facility] [address] [place] [address] Dr. Itzel Lerma Basophils/100 WBC (Bld) 0.2 % Normal 0.2-2.0 [facility] Comment on above: Performed By: #### O SMO #### [facility] [address] [place] [address] Dr. Itzel Lerma EO # 0.1 103/ul Normal 0.0-0.7 [facility] Comment on above: Performed By: #### O SMO #### [facility] [address] [place] [address] Dr. Itzel Lerma Eosinophils/100 WBC (Bld) 1.1 % Normal 0.9-7.0 [facility] Comment on above: Performed By: #### O SMO #### [facility] [address] [place] [address] Dr. Itzel Lerma Erythrocyte distribution width (RBC) [Ratio] 16.3 % Critically high 11.0-15.0 [facility] Comment on above: Performed By: #### O SMO #### [facility] [address] [place] [address] Dr. Itzel Lerma Hematocrit (Bld) [Volume fraction] 47.9 % Normal 42.0-54.0 [facility] Comment on above: Performed By: #### O SMO #### [facility] [address] [place] [address] Dr. Itzel Lerma Hemoglobin (Bld) [Mass/Vol] 14.7 g/dL Normal 14.0-18.0 [facility] Comment on above: Performed By: #### O SMO #### [facility] [address] [place] [address] Dr. Itzel Lerma IG # 0.04 10e3/ul Critically high 0.00-0.03 [facility] Comment on above: Performed By: #### O SMO #### [facility] [address] [address] [address] Itzel Lerma IG % 0.4 % Normal 0.0-0.5 [facility] Comment on above: Performed By: #### O SMO #### [facility] [address] [place] [address] Dr. Itzel Leram LYMPH # 0.9 103/ul Critically low 1.2-3.8 [facility] Comment on above: Performed By: #### O SMO #### [facility] [address] [place] [address] Dr. Itzel Lerma Lymphocytes/100 WBC (Bld) 9.7 % Critically low 20.5-60.0 [facility] Comment on above: Performed By: #### O SMO #### [facility] [address] [place] [address] Dr. Itzel Lerma MANUAL DIFF REQ NO Normal [facility] Comment on above: Performed By: #### O SMO #### [facility] [address] [place] [address] Dr. Itzel Lerma MCH (RBC) [Entitic mass] 27.4 pg Normal 25.9-34.0 [facility] Comment on above: Performed By: #### O SMO #### [facility] [address] [place] [address] Dr. Itzel Lerma MCHC (RBC) [Mass/Vol] 30.7 g/dL Normal 29.9-35.2 [facility] Comment on above: Performed By: #### O SMO #### [facility] [address] [place] [address] Dr. Itzel Lerma MCV (RBC) [Entitic vol] 89.2 fL Normal 80.0-94.0 [facility] Comment on above: Performed By: #### O SMO #### [facility] [address] [place] [address] Dr. Itzel Lerma MONO # 0.7 103/ul Normal 0.3-0.8 [facility] Comment on above: Performed By: #### O SMO #### [facility] [address] [place] [address] Dr. Itzel Lerma Monocytes/100 WBC (Bld) 7.9 % Normal 1.7-12.0 [facility] Comment on above: Performed By: #### O SMO #### [facility] [address] [place] [address] Dr. Itzel Lerma NEUT # 7.6 103/ul Critically high 1.4-6.5 [facility] Comment on above: Performed By: #### O SMO #### [facility] [address] [place] [address] Dr. Itzel Lerma Neutrophils/100 WBC (Bld) 80.7 % Critically high 43.0-75.0 [facility] Comment on above: Performed By: #### O SMO #### [facility] [address] [place] [address] Dr. Itzel Lerma Platelet mean volume (Bld) [Entitic vol] 10.0 fL Normal 9.5-13.5 [facility] Comment on above: Performed By: #### O SMO #### [facility] Laboratory [address] [place] [address] Dr. Itzel Lerma PLT 276 103/ul Normal 150-450 [facility] Comment on above: Performed By: #### O SMO #### [facility] Laboratory [address] [place] [address] Dr. Itzel Lerma RBC 5.37 106/ul Normal 4.70-6.10 [facility] Comment on above: Performed By: #### O SMO #### [facility] Laboratory [address] [place] [address] Dr. Itzel Lerma WBC 9.4 103/ul Normal 4.0-11.0 [facility] Comment on above: Performed By: #### O [facility] #### [facility] Laboratory [address] ABD/PELVIS WO CONon [...] SHAR TREJO Date: 2022-11-19 19:32 Normal [facility] Covid-19 PCR (CVDTB)on 10-31 SARS-CoV-2 (COVID-19) RNA JUDY+probe Ql (Unsp spec) Not detected Normal NOT DETECTED [facility] Comment on above: Result Comment: When diagnostic [...] for this test is supported by the [employer] of [employer] and Human Service's declaration that [...] used). Performed By: #### U A #### [facility] Laboratory [address] [place] [address] Dr. Itzel Lerma PROF CHEM 8 (BAS METB)on Anion gap [Moles/Vol] 10.2 mmol/L Normal [facility] Comment on above: Performed By: #### U A #### [facility] Laboratory [address] [place] [address] Dr. Itzel Lerma Calcium [Mass/Vol] 9.8 mg/dL Normal 8.5-10.1 [facility] Comment on above: Performed By: #### U A #### [facility] Laboratory [address] [place] [address] Dr. Itzel Lerma Chloride [Moles/Vol] 99 mmol/L Normal 98-107 [facility] Comment on above: Performed By: #### U A #### [facility] Laboratory [address] [place] [address] Dr. Itzel Lerma CO2 [Moles/Vol] 27.4 mmol/L Normal 21.0-32.0 [facility] Comment on above: Performed By: #### U A #### [facility] Laboratory [address] [place] [address] Dr. Itzel Lerma Creatinine [Mass/Vol] 2.02 mg/dL Critically high 0.70-1.30 [facility] Comment on above: Performed By: #### U A #### [facility] Laboratory [address] [place] [address] Dr. Itzel Lerma EGFR-AF ALBANIAN 39 mL/min/1.73m2 Critically low >=60 [facility] Comment on above: Performed By: #### U A #### [facility] Laboratory [address] [address] [address] Itzel Lerma EGFR-NON AF ALBANIAN 32 mL/min/1.73m2 Critically low >=60 [facility] Comment on above: Performed By: #### U A #### [facility] [address] [address] [address] Itzel Lerma Glucose [Mass/Vol] 148 mg/dL Critically high 74-106 T [facility] Comment on above: Performed By: #### U A #### [facility] [address] [address] [address] Itzel Lerma Potassium [Moles/Vol] 5.6 mmol/L Critically high 3.5-5.1 [facility] Comment on above: Performed By: #### U A #### [facility] Laboratory [address] [address] [address] Itzel Lerma Sodium [Moles/Vol] 131 mmol/L Critically low 136-145 [facility] Comment on above: Performed By: #### U A #### [facility] [address] [address] [address] Itzel Lerma Urea nitrogen [Mass/Vol] 44.0 mg/dL Critically high 7.0-18.0 [facility] Comment on above: Performed By: #### U A #### [facility] [address] [address] [address] Itzel Lerma Urea nitrogen/Creatinine [Mass ratio] 21.8 mg/mg Normal [facility] Comment on above: Performed By: #### U A #### [facility] [id number] Itzel Lerma XR KUB 1 VIEWon 11-19-2022 XR KUB 1 VIEW EXAM: XR KUB 1 VIEW HISTORY: Nasogastric tube in situ COMPARISON: None. TECHNIQUE: Single view FINDINGS: IMPRESSION: Single limited view of the abdomen. Enteric tube tip is approximately 6.2 cm below the diaphragm. Air-filled loops of large and small bowel Electronically authenticated by: SHAHZAD VILLALPANDO Date: 2022-11-19 20:24 Normal [facility] OSMOLALITYon 07-12-2022 Osmolality [Osmolality] 274 mosm/kg Critically low 280-301 [facility] Comment on above: Performed By: #### O SMO #### [facility] Laboratory [address] [place] [address] Dr. Itzel Lerma CBC AUTO DIFFon 07-11-2022 BASO # 0.0 103/ul Normal 0.0-0.1 [facility] Comment on above: Performed By: #### O JESSE #### [facility] Laboratory [address] [place] [address] Dr. Itzel Lerma Basophils/100 WBC (Bld) 0.3 % Normal 0.2-2.0 [facility] Comment on above: Performed By: #### O JESSE #### [facility] [address] [place] [address] Dr. Itzel Lerma EO # 0.1 103/ul Normal 0.0-0.7 [facility] Comment on above: Performed By: #### O JESSE #### [facility] [address] [place] [address] Dr. Itzel Lerma Eosinophils/100 WBC (Bld) 0.7 % Critically low 0.9-7.0 [facility] Comment on above: Performed By: #### O JESSE #### [facility] [address] [place] [address] Dr. Itzel Lerma Erythrocyte distribution width (RBC) [Ratio] 14.6 % Normal 11.0-15.0 [facility] Comment on above: Performed By: #### O JESSE #### [facility] [address] [place] [address] Dr. Itzel Lerma Hematocrit (Bld) [Volume fraction] 35.2 % Critically low 42.0-54.0 [facility] Comment on above: Performed By: #### O JESSE #### [facility] [address] [place] [address] Dr. Itzel Lerma Hemoglobin (Bld) [Mass/Vol] 11.4 g/dL Critically low 14.0-18.0 [facility] Comment on above: Performed By: #### O JESSE #### [facility] [address] [address] [address] Itzel Lerma IG # 0.04 10e3/ul Critically high 0.00-0.03 [facility] Comment on above: Performed By: #### O JESSE #### [facility] [address] [address] [address] Itzel Lerma IG % 0.4 % Normal 0.0-0.5 [facility] Comment on above: Performed By: #### O JESSE #### [facility] [address] [place] [address] Dr. Itzel Lerma LYMPH # 0.9 103/ul Critically low 1.2-3.8 The [facility] Comment on above: Performed By: #### O JESES #### [facility] [address] [place] [address] Dr. Itzel Lerma Lymphocytes/100 WBC (Bld) 10.4 % Critically low 20.5-60.0 [facility] Comment on above: Performed By: #### O JESSE #### [facility] [address] [place] [address] Dr. Itzel Lerma MANUAL DIFF REQ NO Normal [facility] Comment on above: Performed By: #### O JESSE #### [facility] [address] [place] [address] Dr. Itzel Lerma MCH (RBC) [Entitic mass] 29.1 pg Normal 25.9-34.0 [facility] Comment on above: Performed By: #### O JESSE #### [facility] [address] [place] [address] Dr. Itzel Lerma MCHC (RBC) [Mass/Vol] 32.4 g/dL Normal 29.9-35.2 [facility] Comment on above: Performed By: #### O JESSE #### [facility] [address] [place] [address] Dr. Itzel Lerma MCV (RBC) [Entitic vol] 89.8 fL Normal 80.0-94.0 [facility] Comment on above: Performed By: #### O JESSE #### [facility] [address] [address] [address] Itzel Lerma MONO # 1.0 103/ul Critically high 0.3-0.8 [facility] Comment on above: Performed By: #### O JESSE #### [facility] [address] [place] [address] Dr. Itzel Lerma Monocytes/100 WBC (Bld) 11.1 % Normal 1.7-12.0 [facility] Comment on above: Performed By: #### O JESSE #### [facility] Laboratory [address] [place] [address] Dr. Itzel Lerma NEUT # 6.9 103/ul Critically high 1.4-6.5 [facility] Comment on above: Performed By: #### O JESSE #### [facility] [address] [place] [address] Dr. Itzel Lerma Neutrophils/100 WBC (Bld) 77.1 % Critically high 43.0-75.0 [facility] Comment on above: Performed By: #### O JESSE #### [facility] [address] [place] [address] Dr. Itzel Lerma Platelet mean volume (Bld) [Entitic vol] 9.5 fL Normal 9.5-13.5 [facility] Comment on above: Performed By: #### O JESSE #### [facility] [address] [place] [address] Dr. Itzel Lerma PLT 166 103/ul Normal 150-450 [facility] Comment on above: Performed By: #### O JESSE #### [facility] [address] [place] [address] Dr. Itzel Lerma RBC 3.92 106/ul Critically low 4.70-6.10 [facility] Comment on above: Performed By: #### O JESSE #### [facility] [address] [place] [address] Dr. Itzel Lerma WBC 9.0 103/ul Normal 4.0-11.0 [facility] Comment on above: Performed By: #### O JESSE #### [facility] [address] [place] [address] Dr. Itzel Lerma H PYLORI ANTIBODY IGGon 06-29 H. PYLORI IGG ABS 1.90 Index Value Critically high 0.00-0. 79 [facility] Comment on above: Result Comment: Nega tive <0.80 Equivocal 0.80 - 0.89 Positive >0.89 Performed By: #### H PYLLC #### [facility] [address] [place] [address] Dr. Itzel Lerma OCC BLD IMMUNOASSAYon 2021 OCCULT BLOOD Positive Abnormal NEGATIVE [facility] Comment on above: Performed By: #### O JESSE #### [facility] [address] [place] [address] Dr. Itzel Lerma OSMOLALITY URINEon Osmolality, Urine 252 mOsmol/kg Normal [facility] Comment on above: Result Comment: 24 h r : 300 - 900 Random: 50 - 1400 After 12hr fluid restriction: >850 Performed By: #### O JESSE #### [facility] [address] [place] [address] Dr. Itzel Lerma PROF 14(COMP METB)on 022 Albumin [Mass/Vol] 2.6 g/dL Critically low 3.4-5.0 Th [facility] Comment on above: Performed By: #### O SMO #### [facility] [address] [place] [address] Dr. Itzel Lerma Albumin/Globulin [Mass ratio] 0.6 {ratio} Normal [facility] Comment on above: Performed By: #### O SMO #### [facility] [address] [place] [address] Dr. Itzel Lerma ALP [Catalytic activity/Vol] 59 U/L Normal 46-116 [facility] Comment on above: Performed By: #### O SMO #### [facility] [address] [place] [address] Dr. Itzel Lerma ALT [Catalytic activity/Vol] 10 U/L Critically low 16-63 [facility] Comment on above: Performed By: #### O SMO #### [facility] [address] [place] [address] Dr. Itzel Lerma Anion gap [Moles/Vol] 14.3 mmol/L Normal [facility] Comment on above: Performed By: #### O SMO #### [facility] [address] [place] [address] Dr. Itzel Lerma AST [Catalytic activity/Vol] 12 U/L Critically low 15-37 [facility] Comment on above: Performed By: #### O SMO #### [facility] [address] [place] [address] Dr. Itzel Lerma Bilirubin [Mass/Vol] 0.3 mg/dL Normal 0.2-1.0 [facility] Comment on above: Performed By: #### O SMO #### [facility] [address] [place] [address] Dr. Itzel Lerma Calcium [Mass/Vol] 7.5 mg/dL Critically low 8.5-10.1 Th [facility] Comment on above: Performed By: #### O SMO #### [facility] [address] [place] [address] Dr. Itzel Lerma Chloride [Moles/Vol] 116 mmol/L Critically high 98-107 [facility] Comment on above: Performed By: #### O SMO #### [facility] [address] [place] [address] Dr. Itzel Lerma CO2 [Moles/Vol] 14.3 mmol/L Critically low 21.0-32.0 [facility] Comment on above: Performed By: #### O SMO #### [facility] [address] [place] [address] Dr. Itzel Lerma Creatinine [Mass/Vol] 1.38 mg/dL Critically high 0.70-1.30 [facility] Comment on above: Performed By: #### O SMO #### [facility] [address] [place] [address] Dr. Itzel Lerma EGFR-AF ALBANIAN 60 mL/min/1.73m2 Normal >=60 Th [facility] Comment on above: Performed By: #### O SMO #### [facility] [address] [place] [address] Dr. Itzel Lerma EGFR-NON AF ALBANIAN 49 mL/min/1.73m2 Critically low >=60 [facility] Comment on above: Performed By: #### O SMO #### [facility] [address] [place] [address] Dr. Itzel Lerma Globulin (S) [Mass/Vol] 4.1 g/dL Normal [facility] Comment on above: Performed By: #### O SMO #### [facility] [address] [address] [address] Itzel Lerma Glucose [Mass/Vol] 137 mg/dL Critically high 74-106 T [facility] Comment on above: Performed By: #### O SMO #### [facility] [address] [place] [address] Dr. Itzel Lerma Potassium [Moles/Vol] 3.6 mmol/L Normal 3.5-5.1 [facility] Comment on above: Performed By: #### O SMO #### [facility] [address] [place] [address] Dr. Itzel Lerma Protein [Mass/Vol] 6.7 g/dL Normal 6.4-8.2 [facility] Comment on above: Performed By: #### O SMO #### [facility] [address] [place] [address] Dr. Itzel Lerma Sodium [Moles/Vol] 141 mmol/L Normal 136-145 [facility] Comment on above: Performed By: #### O SMO #### [facility] [address] [place] [address] Dr. Itzel Lerma Urea nitrogen [Mass/Vol] 25.0 mg/dL Critically high 7.0-18.0 [facility] Comment on above: Performed By: #### O SMO #### [facility] [address] [place] [address] Dr. Itzel Lerma Urea nitrogen/Creatinine [Mass ratio] 18.1 mg/mg Normal [facility] Comment on above: Performed By: #### O SMO #### [facility] [address] [place] [address] Dr. Itzel Lerma PROTIMEon 07-11-2022 INR Coag (PPP) [Relative time] 5.21 {INR} Critically high [facility] Comment on above: Performed By: #### O SMO #### [facility] [address] [place] [address] Dr. Itzel Lerma INR GUIDELINES SEE BELOW Normal [facility] Comment on above: Result Comment: MIKAL RED INR: 2.0 - 3.0 CONDITIONS NOT LISTED BELOW 2.5 - 3.5 FOR PROSTHETIC HEART VALVE REPLACEMENT 2.5 - 3.5 RECURRENT THROMBOSIS Performed By: #### O SMO #### [facility] [address] [place] [address] Dr. Itzel Lerma PT Coag (PPP) [Time] 50.5 s Critically high 9.0-11.6 [facility] Comment on above: Performed By: #### O SMO #### [facility] [address] [place] [address] Dr. Itzel Lerma CBC AUTO DIFFon 07-10-2022 BASO # 0.0 103/ul Normal 0.0-0.1 [facility] Comment on above: Performed By: #### U A #### [facility] [address] [place] [address] Dr. Itzel Lerma Basophils/100 WBC (Bld) 0.2 % Normal 0.2-2.0 [facility] Comment on above: Performed By: #### U A #### [facility] [address] [place] [address] Dr. Itzel Lerma EO # 0.1 103/ul Normal 0.0-0.7 [facility] Comment on above: Performed By: #### U A #### [facility] [address] [place] [address] Dr. Itzel Lerma Eosinophils/100 WBC (Bld) 0.4 % Critically low 0.9-7.0 [facility] Comment on above: Performed By: #### U A #### [facility] [address] [place] [address] Dr. Itzel Lerma Erythrocyte distribution width (RBC) [Ratio] 14.3 % Normal 11.0-15.0 [facility] Comment on above: Performed By: #### U A #### [facility] [address] [address] [address] Itzel Lerma Hematocrit (Bld) [Volume fraction] 38.2 % Critically low 42.0-54.0 [facility] Comment on above: Performed By: #### U A #### [facility] [address] [address] [address] Itzel Lerma Hemoglobin (Bld) [Mass/Vol] 12.5 g/dL Critically low 14.0-18.0 [facility] Comment on above: Performed By: #### U A #### [facility] [address] [address] [address] Itzel Lerma IG # 0.11 10e3/ul Critically high 0.00-0.03 [facility] Comment on above: Performed By: #### U A #### [facility] [address] [place] [address] Dr. Itzel Lerma IG % 0.7 % Critically high 0.0-0.5 [facility] Comment on above: Performed By: #### U A #### [facility] [address] [address] [address] Itzel Lerma LYMPH # 1.1 103/ul Critically low 1.2-3.8 [facility] Comment on above: Performed By: #### U A #### [facility] [address] [place] [address] Dr. Itzel Lerma Lymphocytes/100 WBC (Bld) 6.9 % Critically low 20.5-60.0 [facility] Comment on above: Performed By: #### U A #### [facility] [address] [place] [address] Dr. Itzel Lerma MANUAL DIFF REQ NO Normal [facility] Comment on above: Performed By: #### U A #### [facility] [address] [place] [address] Dr. Itzel Lerma MCH (RBC) [Entitic mass] 29.6 pg Normal 25.9-34.0 [facility] Comment on above: Performed By: #### U A #### [facility] [address] [address] [address] Itzel Lerma MCHC (RBC) [Mass/Vol] 32.7 g/dL Normal 29.9-35.2 [facility] Comment on above: Performed By: #### U A #### [facility] [address] [address] [address] Itzel Lerma MCV (RBC) [Entitic vol] 90.3 fL Normal 80.0-94.0 [facility] Comment on above: Performed By: #### U A #### [facility] [address] [address] [address] Itzel Lerma MONO # 1.2 103/ul Critically high 0.3-0.8 [facility] Comment on above: Performed By: #### U A #### [facility] [address] [place] [address] Dr. Itzel Lerma Monocytes/100 WBC (Bld) 8.1 % Normal 1.7-12.0 [facility] Comment on above: Performed By: #### U A #### [facility] [address] [address] [address] Itzel Lerma NEUT # 12.8 103/ul Critically high 1.4-6.5 [facility] Comment on above: Performed By: #### U A #### [facility] [address] [place] [address] Dr. Itzel Lerma Neutrophils/100 WBC (Bld) 83.7 % Critically high 43.0-75.0 [facility] Comment on above: Performed By: #### U A #### [facility] [address] [address] [address] Itzel Lerma Platelet mean volume (Bld) [Entitic vol] 9.5 fL Normal 9.5-13.5 [facility] Comment on above: Performed By: #### U A #### [facility] [address] [address] [address] Iztel Lerma PLT 197 103/ul Normal 150-450 [facility] Comment on above: Performed By: #### U A #### [facility] [address] [place], [place] [address] Dr. Itzel Lerma RBC 4.23 106/ul Critically low 4.70-6.10 [facility] Comment on above: Performed By: #### U A #### [facility] [address] [place], [place] [address] Dr. Itzel Lerma WBC 15.3 103/ul Critically high 4.0-11.0 [facility] Comment on above: Performed By: #### U A #### [facility] [address] [place], [place] [address] ABD/PELVIS WO CONon [...] DORIAN SOARES Date: 2022-07-09 22:32 Normal [facility] Covid-19 PCR ([facility])on 06-29 SARS-CoV-2 (COVID-19) RNA JUDY+probe Ql (Unsp spec) Not detected Normal NOT DETECTED [facility] Comment on above: Result Comment: When diagnostic [...] for this test is supported by the [place] [employer] of [employer] and Human Service's declaration that [...] used). Performed By: #### O JESSE #### [facility] [address] [place] [address] Dr. Itzel Lerma GI PANEL (PCR)on 07-10-2022 Adenovirus F 40/41 Not detected Normal NOT DETECTED [facility] Comment on above: Performed By: #### O JESSE #### [facility] [address] [address] [address] Itzel Lerma Astrovirus Not detected Normal NOT DETECTED [facility] Comment on above: Performed By: #### O JESSE #### [facility] [address] [place] [address] Dr. Itzel Lerma C. Diff toxin A/B Not detected Normal NOT DETECTED [facility] Comment on above: Performed By: #### O JESSE #### [facility] [address] [place] [address] Dr. Itzel Lerma Campylobacter Not detected Normal NOT DETECTED The [facility] Comment on above: Performed By: #### O JESSE #### [facility] [address] [place] [address] Dr. Itzel Lerma Cryptosporidium Not detected Normal NOT DETECTED [facility] Comment on above: Performed By: #### O JESSE #### [facility] [address] [place] [address] Dr. Itezl Lerma Cyclos. Cayetanensis Not detected Normal NOT DETECTED [facility] Comment on above: Performed By: #### O JESSE #### [facility] [address] [place] [address] Dr. Itzel Lerma E. Coli O157 Not Applicable Normal Not Applicable [facility] Comment on above: Performed By: #### O JESSE #### [facility] [address] [place] [address] Dr. Itzel Lerma E. histolytica Not detected Normal NOT DETECTED [facility] Comment on above: Performed By: #### O JESSE #### [facility] [address] [place] [address] Dr. Itzel Lerma EAEC Not detected Normal NOT DETECTED [facility] Comment on above: Performed By: #### O JESSE #### [facility] [address] [place] [address] Dr. Itzel Lerma EIEC Not detected Normal NOT DETECTED [facility] Comment on above: Performed By: #### O JESSE #### [facility] [address] [place] [address] Dr. Itzel Lerma EPEC Not detected Normal NOT DETECTED [facility] Comment on above: Performed By: #### O JESSE #### [facility] [address] [address] [address] Itzel Lerma ETEC Not detected Normal NOT DETECTED [facility] Comment on above: Performed By: #### O JESSE #### [facility] [address] [address] [address] Itzel Lerma G. Lamblia Not detected Normal NOT DETECTED [facility] Comment on above: Performed By: #### O JESSE #### [facility] [address] [address] [address] Itzel MCKEON CONTROLS PASSED Normal [facility] Comment on above: Performed By: #### O JESSE #### [facility] Laboratory [address] [address] [address] Itzel GALVAN TAVO HEADER GI PANEL BACTERIA Normal T [facility] Comment on above: Performed By: #### O JESSE #### [facility] [address] [place] [address] Dr. Itzel GALLOWAY ECOLI GI PANEL DIARRHEAGEN IC E.COLI / SHIGELLA Normal [facility] Comment on above: Performed By: #### O JESSE #### [facility] [address] [place] [address] Dr. Itzel GALLOWAY INFO SEE BELOW Normal [facility] Comment on above: Result Comment: EAEC - Enteroaggregative E. Coli EPEC- Enteropathogenic E. Coli ETEC- Enterotoxigenic E. Coli lt/st STEC- Shigella-like toxin-producing E. Coli stx1/stx2 EIEC- Shigella/Enteroinvasive E. Coli Performed By: #### O JESSE #### [facility] [address] [place] [address] Dr. Itzel GALLOWAY PARASITES GI PANEL PARASITES Normal [facility] Comment on above: Performed By: #### O JESSE #### [facility] [address] [place] [address] Dr. Itzel GALLOWAY VIRUS GI PANEL VIRUSES Normal [facility] Comment on above: Performed By: #### O JESSE #### [facility] [address] [place] [address] Dr. Itzel Lerma Norovirus GI/GII Not detected Normal NOT DETECTED [facility] Comment on above: Performed By: #### O JESSE #### [facility] [address] [place] [address] Dr. Itzel Lerma P. Shigelloides Not detected Normal NOT DETECTED [facility] Comment on above: Performed By: #### O JESSE #### [facility] [address] [place] [address] Dr. Itzel Lerma Rotavirus A Not detected Normal NOT DETECTED [facility] Comment on above: Performed By: #### O JESSE #### [facility] [address] [place] [address] Dr. Itzel Lerma Salmonella Not detected Normal NOT DETECTED [facility] Comment on above: Performed By: #### O JESSE #### [facility] [address] [place] [address] Dr. Itzel Lerma Sapovirus Not detected Normal NOT DETECTED [facility] Comment on above: Performed By: #### O JESSE #### [facility] [address] [place] [address] Dr. Itzel Lerma STEC Not detected Normal NOT DETECTED [facility] Comment on above: Performed By: #### O JESSE #### [facility] [address] [place] [address] Dr. Itzel Lerma Vibrio Not detected Normal NOT DETECTED [facility] Comment on above: Performed By: #### O JESSE #### [facility] [address] [place] [address] Dr. Itzel Lerma Vibrio Cholera Not detected Normal NOT DETECTED The [facility] Comment on above: Performed By: #### O JESSE #### [facility] [address] [place] [address] Dr. Itzel Lerma Y. Enterocolitica Not detected Normal NOT DETECTED [facility] Comment on above: Performed By: #### O JESSE #### [facility] [address] [place] [address] Dr. Itzel Lerma PROF CHEM 8 (BAS METB)on Anion gap [Moles/Vol] 12.6 mmol/L Normal [facility] Comment on above: Performed By: #### O SMO #### [facility] [address] [address] [address] Itzel Lerma Calcium [Mass/Vol] 7.7 mg/dL Critically low 8.5-10.1 Th [facility] Comment on above: Performed By: #### O SMO #### [facility] [address] [place] [address] Dr. Itzel Lerma Chloride [Moles/Vol] 103 mmol/L Normal 98-107 [facility] Comment on above: Performed By: #### O SMO #### [facility] [address] [place] [address] Dr. Itzel Lerma CO2 [Moles/Vol] 16.4 mmol/L Critically low 21.0-32.0 [facility] Comment on above: Performed By: #### O SMO #### [facility] [address] [place] [address] Dr. Itzel Lerma Creatinine [Mass/Vol] 2.03 mg/dL Critically high 0.70-1.30 [facility] Comment on above: Performed By: #### O SMO #### [facility] [address] [place] [address] Dr. Itzel Lerma EGFR-AF ALBANIAN 38 mL/min/1.73m2 Critically low >=60 [facility] Comment on above: Performed By: #### O SMO #### [facility] [address] [place] [address] Dr. Itzel Lerma EGFR-NON AF ALBANIAN 32 mL/min/1.73m2 Critically low >=60 [facility] Comment on above: Performed By: #### O SMO #### [facility] [address] [place] [address] Dr. Itzel Lerma Glucose [Mass/Vol] 148 mg/dL Critically high 74-106 T [facility] Comment on above: Performed By: #### O SMO #### [facility] [address] [place] [address] Dr. Itzel Lerma Potassium [Moles/Vol] 4.0 mmol/L Normal 3.5-5.1 [facility] Comment on above: Performed By: #### O SMO #### [facility] [address] [place] [address] Dr. Itzel Lerma Sodium [Moles/Vol] 128 mmol/L Critically low 136-145 Th [facility] Comment on above: Performed By: #### O SMO #### [facility] [address] [address] [address] Itzel Lerma Urea nitrogen [Mass/Vol] 50.0 mg/dL Critically high 7.0-18.0 [facility] Comment on above: Performed By: #### O SMO #### [facility] [address] [place] [address] Dr. Itzel Lerma Urea nitrogen/Creatinine [Mass ratio] 24.6 mg/mg Normal [facility] Comment on above: Performed By: #### O SMO #### [facility] [address] [place] [address] Dr. Itzel Lerma Anion gap [Moles/Vol] 14.3 mmol/L Normal [facility] Comment on above: Performed By: #### U A #### [facility] [address] [place] [address] Dr. Itzel Lerma Calcium [Mass/Vol] 7.8 mg/dL Critically low 8.5-10.1 Th [facility] Comment on above: Performed By: #### U A #### [facility] [address] [place] [address] Dr. Itzel Lerma Chloride [Moles/Vol] 101 mmol/L Normal 98-107 [facility] Comment on above: Performed By: #### U A #### [facility] [address] [place] [address] Dr. Itzel Lerma CO2 [Moles/Vol] 14.7 mmol/L Critically low 21.0-32.0 [facility] Comment on above: Performed By: #### U A #### [facility] [address] [place] [address] Dr. Itzel Lerma Creatinine [Mass/Vol] 2.01 mg/dL Critically high 0.70-1.30 [facility] Comment on above: Performed By: #### U A #### [facility] [address] [address] [address] Itzel Lerma EGFR-AF ALBANIAN 39 mL/min/1.73m2 Critically low >=60 [facility] Comment on above: Performed By: #### U A #### [facility] [address] [address] [address] Itzel Lerma EGFR-NON AF ALBANIAN 32 mL/min/1.73m2 Critically low >=60 [facility] Comment on above: Performed By: #### U A #### [facility] [address] [address] [address] Itzel Lerma Glucose [Mass/Vol] 152 mg/dL Critically high 74-106 T [facility] Comment on above: Performed By: #### U A #### [facility] [address] [address] [address] Itzel Lerma Potassium [Moles/Vol] 4.0 mmol/L Normal 3.5-5.1 [facility] Comment on above: Performed By: #### U A #### [facility] [address] [address] [address] Itzel Lerma Sodium [Moles/Vol] 126 mmol/L Critically low 136-145 Th [facility] Comment on above: Performed By: #### U A #### [facility] [address] [address] [address] Itzel Lerma Urea nitrogen [Mass/Vol] 51.0 mg/dL Critically high 7.0-18.0 [facility] Comment on above: Performed By: #### U A #### [facility] [address] [address] [address] Itzel Lerma Urea nitrogen/Creatinine [Mass ratio] 25.4 mg/mg Normal [facility] Comment on above: Performed By: #### U A #### [facility] [address] [address] [address] Itzel Lerma PROTIMEon 07-10-2022 INR Coag (PPP) [Relative time] 4.72 {INR} Critically high [facility] Comment on above: Performed By: #### P T #### [facility] [address] [place] [address] Dr. Itzel Lerma INR GUIDELINES SEE BELOW Normal [facility] Comment on above: Result Comment: MIKAL RED INR: 2.0 - 3.0 CONDITIONS NOT LISTED BELOW 2.5 - 3.5 FOR PROSTHETIC HEART VALVE REPLACEMENT 2.5 - 3.5 RECURRENT THROMBOSIS Performed By: #### P T #### [facility] [address] [place] [address] Dr. Itzel Lerma PT Coag (PPP) [Time] 46.1 s Critically high 9.0-11.6 [facility] Comment on above: Performed By: #### P T #### [facility] [address] [place] [address] Dr. Itzel Lerma SODIUM RANDOM URINEon 2021 UR SODIUM <50 Normal 30-90 [facility] Comment on above: Performed By: #### O JESSE #### [facility] [address] [place] [address] Dr. Itzel Lerma UA RANDOMon 07-10-2022 Bilirubin Ql (U) Negative Normal NEGATIVE [facility] Comment on above: Performed By: #### U A #### [facility] [address] [place] [address] Dr. Itzel Lerma Clarity (U) CLEAR Normal CLEAR [facility] Comment on above: Performed By: #### U A #### [facility] [address] [place] [address] Dr. Itzel Lerma Color (U) LT. YELLOW Normal YELLOW [facility] Comment on above: Performed By: #### U A #### [facility] [address] [place] [address] Dr. Itzel Lerma Glucose Ql (U) Negative Normal NEGATIVE [facility] Comment on above: Performed By: #### U A #### [facility] [address] [place] [address] Dr. Itzel Lerma Hemoglobin Ql (U) Negative Normal NEGATIVE [facility] Comment on above: Performed By: #### U A #### [facility] [address] [place] [address] Dr. Itzel Lerma Ketones Ql (U) Negative Normal NEGATIVE [facility] Comment on above: Performed By: #### U A #### [facility] [address] [place] [address] Dr. Itzel Lerma LEUKOCYTES Negative Normal NEGATIVE [facility] Comment on above: Performed By: #### U A #### [facility] [address] [place] [address] Dr. Itzel Lerma Nitrite Ql (U) Negative Normal NEGATIVE [facility] Comment on above: Performed By: #### U A #### [facility] [address] [place] [address] Dr. Itzel Lerma pH (U) 6.0 [pH] Normal 5-9 [facility] Comment on above: Performed By: #### U A #### [facility] [address] [place] [address] Dr. Itzel Lerma SPEC GRAVITY 1.010 Normal 1.005-<=1.025 [facility] Comment on above: Performed By: #### U A #### [facility] [address] [place] [address] Dr. Itzel Lerma UA PROTEIN Negative Normal NEGATIVE/ TRACE [facility] Comment on above: Performed By: #### U A #### [facility] [address] [place] [address] Dr. Itzel Lerma Urobilinogen Qn (U) 0.2 {Reta'U}/dL Normal 0.2 - 1. 0 [facility] Comment on above: Performed By: #### U A #### [facility] [address] [place] [address] Dr. Itzel Lerma XR ABD FLAT UP_PA [...] by: DORIAN YODER Date: 2022-07-10 10:16 Normal [facility] CBC AUTO DIFFon 07-09-2022 BASO # 0.1 103/ul Normal 0.0-0.1 [facility] Comment on above: Performed By: #### O JESSE #### [facility] [address] [address] [address] Itzel Lerma Basophils/100 WBC (Bld) 0.2 % Normal 0.2-2.0 [facility] Comment on above: Performed By: #### O JESSE #### [facility] [address] [address] [address] Itzel Lerma EO # 0.0 103/ul Normal 0.0-0.7 [facility] Comment on above: Performed By: #### O JESSE #### [facility] [address] [address] [address] Itzel Lerma Eosinophils/100 WBC (Bld) 0.2 % Critically low 0.9-7.0 [facility] Comment on above: Performed By: #### O JESSE #### [facility] [address] [address] [address] Itzel Lerma Erythrocyte distribution width (RBC) [Ratio] 14.0 % Normal 11.0-15.0 [facility] Comment on above: Performed By: #### O JESSE #### [facility] [address] [address] [address] Itzel Lerma Hematocrit (Bld) [Volume fraction] 39.3 % Critically low 42.0-54.0 [facility] Comment on above: Performed By: #### O JESSE #### [facility] [address] [place] [address] Dr. Itzel Lerma Hemoglobin (Bld) [Mass/Vol] 13.2 g/dL Critically low 14.0-18.0 [facility] Comment on above: Performed By: #### O JESSE #### [facility] [address] [place] [address] Dr. Itzel Lerma IG # 0.20 10e3/ul Critically high 0.00-0.03 [facility] Comment on above: Performed By: #### O JESSE #### [facility] [address] [place] [address] Dr. Itzel Lerma IG % 0.9 % Critically high 0.0-0.5 [facility] Comment on above: Performed By: #### O JESSE #### [facility] [address] [place] [address] Dr. Itzel Lerma LYMPH # 1.3 103/ul Normal 1.2-3.8 [facility] Comment on above: Performed By: #### O JESSE #### [facility] [address] [place] [address] Dr. Itzel Lerma Lymphocytes/100 WBC (Bld) 5.8 % Critically low 20.5-60.0 [facility] Comment on above: Performed By: #### O JESSE #### [facility] [address] [place] [address] Dr. Itzel Lerma MANUAL DIFF REQ NO Normal [facility] Comment on above: Performed By: #### O JESSE #### [facility] [address] [place] [address] Dr. Itzel Lerma MCH (RBC) [Entitic mass] 29.7 pg Normal 25.9-34.0 [facility] Comment on above: Performed By: #### O JESSE #### [facility] [address] [place] [address] Dr. Itzel Lerma MCHC (RBC) [Mass/Vol] 33.6 g/dL Normal 29.9-35.2 [facility] Comment on above: Performed By: #### O JESSE #### [facility] [address] [place] [address] Dr. Itzel Lerma MCV (RBC) [Entitic vol] 88.3 fL Normal 80.0-94.0 [facility] Comment on above: Performed By: #### O JESSE #### [facility] [address] [place] [address] Dr. Itzel Lerma MONO # 1.3 103/ul Critically high 0.3-0.8 [facility] Comment on above: Performed By: #### O JESSE #### [facility] [address] [place] [address] Dr. Itzel Lerma Monocytes/100 WBC (Bld) 6.0 % Normal 1.7-12.0 [facility] Comment on above: Performed By: #### O JESSE #### [facility] [address] [place] [address] Dr. Itzel Lerma NEUT # 19.3 103/ul Critically high 1.4-6.5 [facility] Comment on above: Performed By: #### O JESSE #### [facility] [address] [place] [address] Dr. Itzel Lerma Neutrophils/100 WBC (Bld) 86.9 % Critically high 43.0-75.0 [facility] Comment on above: Performed By: #### O JESSE #### [facility] [address] [place] [address] Dr. Itzel Lerma Platelet mean volume (Bld) [Entitic vol] 9.2 fL Critically low 9.5-13.5 [facility] Comment on above: Performed By: #### O JESSE #### [facility] [address] [place] [address] Dr. Itzel Lerma PLT 246 103/ul Normal 150-450 [facility] Comment on above: Performed By: #### O JESSE #### [facility] [address] [place] [address] Dr. Itzel Lerma RBC 4.45 106/ul Critically low 4.70-6.10 [facility] Comment on above: Performed By: #### O JESSE #### [facility] [address] [address] [address] Itzel Lerma WBC 22.2 103/ul Critically high 4.0-11.0 [facility] Comment on above: Performed By: #### O JESSE #### [facility] [address] [place] [address] Dr. Itzel Lerma LACTATE/LACTIC ACIDon 2021 Lactate [Moles/Vol] 1.0 mmol/L Normal 0.4-1.9 [facility] Comment on above: Performed By: #### O SMO #### [facility] [address] [place] [address] Dr. Itzel Lerma PROF 14(COMP METB)on 022 Albumin [Mass/Vol] 3.0 g/dL Critically low 3.4-5.0 [facility] Comment on above: Performed By: #### C MP #### [facility] [address] [place] [address] Dr. Itzel Lerma Albumin/Globulin [Mass ratio] 0.6 {ratio} Normal [facility] Comment on above: Performed By: #### C MP #### [facility] [address] [place] [address] Dr. Itzel Lerma ALP [Catalytic activity/Vol] 90 U/L Normal 46-116 [facility] Comment on above: Performed By: #### C MP #### [facility] [address] [place] [address] Dr. Itzel Lerma ALT [Catalytic activity/Vol] 12 U/L Critically low 16-63 [facility] Comment on above: Performed By: #### C MP #### [facility] [address] [place] [address] Dr. Itzel Lerma Anion gap [Moles/Vol] 18.2 mmol/L Normal [facility] Comment on above: Performed By: #### C MP #### [facility] [address] [place] [address] Dr. Itzel Lerma AST [Catalytic activity/Vol] 17 U/L Normal 15-37 [facility] Comment on above: Performed By: #### C MP #### [facility] [address] [place] [address] Dr. Itzel Lerma Bilirubin [Mass/Vol] 0.8 mg/dL Normal 0.2-1.0 [facility] Comment on above: Performed By: #### C MP #### [facility] [address] [place] [address] Dr. Itzel Lerma Calcium [Mass/Vol] 7.9 mg/dL Critically low 8.5-10.1 Th [facility] Comment on above: Performed By: #### C MP #### [facility] [address] [place] [address] Dr. Itzel Lerma Chloride [Moles/Vol] 92 mmol/L Critically low 98-107 [facility] Comment on above: Performed By: #### C MP #### [facility] [address] [place] [address] Dr. Itzel Lerma CO2 [Moles/Vol] 14.0 mmol/L Critically low 21.0-32.0 [facility] Comment on above: Performed By: #### C MP #### [facility] [address] [place] [address] Dr. Itzel Lerma Creatinine [Mass/Vol] 2.74 mg/dL Critically high 0.70-1.30 [facility] Comment on above: Performed By: #### C MP #### [facility] [address] [place] [address] Dr. Itzel Lerma EGFR-AF ALBANIAN 27 mL/min/1.73m2 Critically low >=60 [facility] Comment on above: Performed By: #### C MP #### [facility] [address] [place] [address] Dr. Itzel Lerma EGFR-NON AF ALBANIAN 22 mL/min/1.73m2 Critically low >=60 [facility] Comment on above: Performed By: #### C MP #### [facility] [address] [place] [address] Dr. Itzel Lerma Globulin (S) [Mass/Vol] 4.9 g/dL Normal [facility] Comment on above: Performed By: #### C MP #### [facility] [address] [address] [address] Itzel Lerma Glucose [Mass/Vol] 169 mg/dL Critically high 74-106 T [facility] Comment on above: Performed By: #### C MP #### [facility] [address] [address] [address] Itzel Lerma Potassium [Moles/Vol] 4.2 mmol/L Normal 3.5-5.1 [facility] Comment on above: Performed By: #### C MP #### [facility] [address] [address] [address] Itzel Lerma Protein [Mass/Vol] 7.9 g/dL Normal 6.4-8.2 [facility] Comment on above: Performed By: #### C MP #### [facility] [address] [address] [address] Itzel Lerma Sodium [Moles/Vol] 120 mmol/L Critically low 136-145 Th [facility] Comment on above: Performed By: #### C MP #### [facility] [address] [address] [address] Itzel Lerma Urea nitrogen [Mass/Vol] 69.0 mg/dL Critically high 7.0-18.0 [facility] Comment on above: Performed By: #### C MP #### [facility] [address] [address] [address] Itzel Lerma Urea nitrogen/Creatinine [Mass ratio] 25.2 mg/mg Normal [facility] Comment on above: Performed By: #### C MP #### [facility] [address] [address] [address] Itzel Lerma PROTIMEon 07-09-2022 INR Coag (PPP) [Relative time] 5.18 {INR} Critically high [facility] Comment on above: Performed By: #### U A #### [facility] [address] [address] [address] Itzel Lerma INR GUIDELINES SEE BELOW Normal [facility] Comment on above: Result Comment: MIKAL RED INR: 2.0 - 3.0 CONDITIONS NOT LISTED BELOW 2.5 - 3.5 FOR PROSTHETIC HEART VALVE REPLACEMENT 2.5 - 3.5 RECURRENT THROMBOSIS Performed By: #### U A #### [facility] [address] [address] [address] Itzel Lerma PT Coag (PPP) [Time] 50.2 s Critically high 9.0-11.6 [facility] Comment on above: Performed By: #### U A #### [facility] [address] [address] [address] Itzel Lerma PTTon 07-09-2022 aPTT Coag (Bld) [Time] 62.9 s Critically high 22.3-36.2 [facility] Comment on above: Performed By: #### U A #### [facility] [address] [place] [address] Dr. Itzel Lerma TSHon 07-09-2022 TSH 1.544 uIU/mL Normal 0.358-3.740 [facility] Comment on above: Performed By: #### O JESSE #### [facility] [address] [place] [address] Dr. Itzel Lerma Vital Signs Date Time Vital Sign Value Performing Clinician Facility 01-10-2023 13:11-040 Body height 172.72 cm MD Ivan Lopez Work Phone: [facility] [place] 01-10-2023 13:11-040 Body temperature 97.8 [degF] MD Ivan Lopez Work Phone: [facility] [place] 01-10-2023 13:11-040 Body weight 71.4 kg MD Ivan Lopez Work Phone: [facility] [place] 01-10-2023 13:11-040 Diastolic blood pressure 84 mm[Hg] MD Ivan Lopez Work Phone: [facility] [place] 01-10-2023 13:11-040 Heart rate 73 /min MD Ivan Lopez Work Phone: [facility] [place] 01-10-2023 13:11-0400 Respiratory rate 20 /min MD Ivan Lopez Work Phone: [facility] [place] 01-10-2023 13:11-0400 SaO2% (BldA) [Mass fraction] 99 % MD Ivan Lopez Work Phone: [facility] [place] 01-10-2023 13:11-0400 Systolic blood pressure 142 mm[Hg] MD Ivan Lopez Work Phone: [facility] [place] 05-23-2022 15:00-0400 Body height 172.72 cm Yves Juvenal Other [employer] Other 05-23-2022 15:00-0400 Body mass index (BMI) [Ratio] 25.09 kg/m2 [employer] Other [employer] Other 05-23-2022 15:00-0400 Body weight 74.84 kg [employer] [employer] Other [facility] Other 02-21-2022 15:00-0400 Body height 172.72 cm [employer] [facility] Other 02-21-2022 15:00-0400 Body mass index (BMI) [Ratio] 26 kg/m2 [employer] [facility] Other 02-21-2022 15:00-0400 Body weight 77.57 kg [employer] Other [facility] Other 02-21-2022 15:00-0400 Diastolic blood pressure 81 mm[Hg] [facility] Other [facility] Other 02-21-2022 15:00-0400 Systolic blood pressure 118 mm[Hg] [facility] Other [facility] Other 11-22-2021 14:30-0500 Body height 172.72 cm Yves San[facility] Other [facility] Other 11-22-2021 14:30-0500 Body mass index (BMI) [Ratio] 26.76 kg/m2 [facility] Other [facility] Other 11-22-2021 14:30-0500 Body weight 79.83 kg Yves [facility] Other [facility] Other 11-22-2021 14:30-0500 Diastolic blood pressure 70 mm[Hg] [facility] Other [facility] Other 11-22-2021 14:30-0500 Systolic blood pressure 121 mm[Hg] [facility] Other [facility] Other Encounters Encounter Date Encounter Type Care Provider Facility Start: 01-10-2023 End: 01-10-2023 Emergency department patient visit Ajit Rivero Facility:[facility] [place] Start: 01-10-2023 End: 01-10-2023 Emergency department patient visit MD Ivan Lopez Work Phone: [facility] Work Phone: Start: 11-24-2022 End: 11-24-[address] DOCTOR CARDENAS Facility:[facility] Start: 11-19-2022 End: 11-23-2022 Evaluation and management of inpatient DR DOCTOR CARDENAS Facility:[facility] Start: 10-29-2022 End: 10-29-2022 ambulatory Yves Sanford Other [facility] Other Start: 10-29-2022 Telephone encounter Yves Zarate ck [facility] [employer] [facility] Start: 07-11-2022 ambulatory Facility:[facility] Start: 07-10-2022 End: 07-11-[address] DOCTOR CARDENAS Facility:[facility] Start: 05-23-2022 End: 05-23-2022 ambulatory Yves Sanford Other [facility] Other Start: 05-23-2022 Office outpatient visit 15 minutes Yves Sanford [facility] Start: 02-21-2022 End: 02-21-2022 ambulatory Yves Sanford Other [facility] Other Start: 02-21-2022 Office outpatient visit 15 minutes Yves Sanford [facility] Start: 11-22-2021 End: 11-22-2021 ambulatory Yves Sanford Other [facility] Other Start: 11-22-2021 Office outpatient ne w 45 minutes Yves Sanford [facility] Procedures Date Procedure Procedure Detail Performing Clinician Start: 01-10-2023 CT of head without contrast MD Ivan Lopez Work Phone: Start: 07-10-[address] DOCTOR CARDENAS Comment on above: Performed By: #### U A #### [facility] [address] [place] [address] Dr. Itzel Lerma Plan of Treatment Date Care Activity Detail Author Patient Education Head Injury in Adults ( [place]) [facility] Work Phone: Patient referral [facility] Work Phone: Payers Date Payer Category Payer Self-pay [id number] 2019 Unknown [id number] [id number] 1958 Medicare [id number] 1940 Unknown [id number] 1940 Unknown [id number] 1940 Unknown [id number] Medicare Medicare Outpatient [id number] Unknown Italian [employer] [id number] Unknown [id number] Social History Date Type Detail Facility Sex Assigned At [facility] Start: [facility]10[facility]23 [facility] [place] Start: 1940 Sex Assigned At Male [facility] Evaluation note 05-23-2022 Note Date & Type Note Facility 05-23-2022 Evaluation note Encounter Date Diagnosis Assessment Notes Apr, Diarrhea (ICD-10 - R19.7) patient states does not seem to bad patient does use the imodium as needed Apr, Nausea (ICD-10 - R11.0) will start zofran [facility] Other Evaluation note 02-21-2022 Note Date & Type Note Facility 02-21-2022 Evaluation note Encounter Date Diagnosis Assessment Notes January, Weight loss (ICD-10 - R63.4) January, Diarrhea (ICD-10 - R19.7) Start Imodium every morning Encouraged low fodmap diet. Education given to patient again. 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) January, Frequent bowel movements (ICD-10 - R19.4) [facility] Other Evaluation note 11-22-2021 Note Date & Type Note Facility 11-22-2021 Evaluation note Encounter Date Diagnosis Assessment Notes Oct, Weight loss (ICD-10 - R63.4) OBTAIN RECORDS FROM [facility] INPT STAY COPY OF LOW FODMAP DIET GIVEN TO PT RTO 3 MONTHS Oct, Diarrhea (ICD-10 - R19.7) [facility] Other Evaluation note Note Date & Type Note Facility Evaluation note No assessment information availa [facility] Work Phone: Evaluation note Note Date & Type Note Facility Evaluation note No Information [facility] Other History general Narrative - Reported Note Date & Type Note Facility History general Narrative - Reported Type Surgical History bowel resection [facility] Other Reason for visit Narrative Note Date & Type Note Facility Reason for visit Narrative REFERRED BY Trinidad LOPEZ FOR WEIGHT LOSS. PT DOES TAKE MEDICATIONS, HOWEVER HE DOES NOT RECALL NAMES OR DOSAGES OR HAVE A LIST TO REVIEW, (REFERRAL NOTE RECEIVED) [facility] Other Chief Complaint and Reason for Visit [...] KNOW NAMES OF MEDICATIONS HE IS ON.[facility] Care Teams (unrecognized sec tion and content) [...] DATE CREATED AUTHOR 'S ORGANIZ ATION 03/18/2023 [facility] DATE CREATED AUTHOR AUTHOR'S DANIEL PERALTA 01/27/2024 [facility] FOR RECORDS PERTAINING TO [...] BE BASED ON THE PRIMARY CLINICAL RECORDS. [facility] [facility]. provides no warranty or guarantee of the accuracy or completeness of information in this document.
[2024-06-27] MEDS: LATANOPROST 0.005% 2.5 ML BOTTLE 1 DROP OP (21:08)
[2024-06-27] MEDS: ATORVASTATIN CALCIUM 10 MG TABLET PO (21:08)
[2024-06-27] MEDS: TAMSULOSIN HCL 0.4 MG CAPSULE PO (21:08)
[2024-06-27] MEDS: LACTATED RINGER'S SOLUTION 1,000 ML 100 ML IV (21:12)
[2024-06-28] VITALS (43 sets, daily range): BP systolic 71–118; BP diastolic 48–85; PULSE 105–150; TEMP 36.2–36.9; O2SAT 93–99
[2024-06-28] MEDS: METOCLOPRAMIDE HCL 10 MG/10 ML SOLUTION REGLAN PO (00:07)
[2024-06-28] MEDS: LORAZEPAM 0.5 MG TABLET PO (01:02)
--- NOTE | 2024-06-28 01:49 | CT_ITS ---
[address] [address] Patient Name: JULIETTE MORROW MRN: [id number] date: 1940 Sex: M Assigned Patient Location: ICU Current Patient Location: ICU Accession/Order Number: [id number] Exam Date: 06/28/2024 02:05 Report Date: 06/28/2024 05:40 At the request of: LUZ ROBERTO Procedure: CT abdomen pelvis wo con EXAMINATION: CT abdomen pelvis wo con HISTORY: intractable nausea and vomiting COMPARISON: 05/30/2024 TECHNIQUE: Axial, Coronal, and Sagittal images were created without IV contrast. Dose reduction techniques were achieved by using automated exposure control and/or adjustment of mA and/or kV according to patient size and/or use of iterative reconstruction technique. FINDINGS: LUNG BASES: Bibasilar atelectasis. Coronary atherosclerosis LIVER: Hypodensities throughout the liver, likely representing small cysts BILIARY: Contracted gallbladder PANCREAS: Diffuse atrophy SPLEEN: No enlargement or focal lesion. ADRENALS: No mass or enlargement. KIDNEYS: No mass, obstruction, or calcification. BOWEL/MESENTERY: Large fluid and gaseous distention of the stomach. Prior resection of the majority of the small bowel loops and colon with right lower quadrant suture lines. Relative collapse of the colon. Distention of proximal small bowel to 4.9 cm with collapse of the distal bowel, transition point identified right mid abdomen axial image #55. No focal mass. AORTA/VASCULAR: Nonobstructive bowel gas pattern. Mild to moderate atherosclerosis RETROPERITONEUM: No mass or adenopathy. LYMPH NODES: No adenopathy. URINARY BLADDER: No visible focal wall thickening, lesion, or calculus. PELVIC ORGANS: Mildly enlarged prostate ABDOMINAL WALL: No mass or hernia. BONES: No bony lesion or fracture. Permeative pattern of the bones suggesting underlying osteopenia. Moderate degenerative changes of the spine OTHER: Negative. CT/CT abdomen pelvis wo con IMPRESSION: Small bowel obstruction, transition point is in the mid abdomen however no focal mass or cause of obstruction is observed Electronically authenticated by: SHAHZAD DUARTE Date: 06/28/2024 05:40
[2024-06-28 02:25] LABS: Basophils Percent Auto 0.2 % (0.2-2.0); Eosinophils Percent Auto 0.5 % (0.9-7.0); Hematocrit 49.8 % (42.0-54.0); Hemoglobin 16.2 g/dL (14.0-18.0); Immature Granulocytes Abs Auto 0.05 10^3/uL (0.00-0.03); Immature Granulocytes Pct Auto 0.6 % (0.0-0.5); Lymphocytes Absolute Auto 0.9 10^3/uL (1.2-3.8); Lymphocytes Percent Auto 10.9 % (20.5-60.0); Mean Corpuscular HGB Conc 32.5 g/dL (29.9-35.2); Mean Corpuscular Volume 98.4 fL (80.0-94.0); Mean Platelet Volume 10.1 fL (9.5-13.5); Monocytes Absolute Auto 0.7 10^3/uL (0.3-0.8); Monocytes Percent Auto 8.8 % (1.7-12.0); Neutrophils Absolute Auto 6.5 10^3/uL (1.4-6.5); Platelet Count 205 10^3/uL (150-450); Red Blood Count 5.06 10^6/uL (4.70-6.10); Red Cell Distribution Width 14.5 % (11.0-15.0); White Blood Count 8.2 10^3/uL (4.0-11.0)
[2024-06-28 02:33] LABS: Alanine Aminotransferase 22 U/L (16-63); Albumin Globulin Ratio 0.8; Albumin Level 3.3 g/dL (3.4-5.0); Alkaline Phosphatase 98 U/L (46-116); Anion Gap 15.5; Aspartate Amino Transferase 33 U/L (15-37); BUN Creatinine Ratio 24.2; Bilirubin Total 1.1 mg/dL (0.2-1.0); Calcium 9.3 mg/dL (8.5-10.1); Carbon Dioxide 21.4 mmol/L (21.0-32.0); Chloride 97 mmol/L (98-107); Estimated GFR (African America 40 (>=60); Estimated GFR (Non-African Ame 33 (>=60); Globulin 4.3 g/dL; Glucose 165 mg/dL (74-106); Magnesium 1.9 mg/dL (1.8-2.4); Potassium 3.9 mmol/L (3.5-5.1); Sodium 130 mmol/L (136-145); Total Protein 7.6 g/dL (6.4-8.2); Troponin I High Sensitivity 8.4 pg/mL (4.0-76.1)
[2024-06-28] MEDS: LEVOTHYROXINE SODIUM 25 MCG TABLET 50 MCG PO (05:45)
[2024-06-28 05:52] LABS: Eosinophils Percent Auto 0.6 % (0.9-7.0); Hematocrit 45.3 % (42.0-54.0); Immature Granulocytes Abs Auto 0.05 10^3/uL (0.00-0.03); Immature Granulocytes Pct Auto 0.7 % (0.0-0.5); Lymphocytes Absolute Auto 0.7 10^3/uL (1.2-3.8); Lymphocytes Percent Auto 10.3 % (20.5-60.0); Mean Corpuscular HGB Conc 33.1 g/dL (29.9-35.2); Mean Corpuscular Hemoglobin 31.7 pg (25.9-34.0); Mean Corpuscular Volume 95.8 fL (80.0-94.0); Mean Platelet Volume 9.7 fL (9.5-13.5); Monocytes Absolute Auto 0.8 10^3/uL (0.3-0.8); Monocytes Percent Auto 10.5 % (1.7-12.0); Neutrophils Absolute Auto 5.6 10^3/uL (1.4-6.5); Neutrophils Percent Auto 77.9 % (43.0-75.0); Platelet Count 225 10^3/uL (150-450); Red Blood Count 4.73 10^6/uL (4.70-6.10); Red Cell Distribution Width 14.3 % (11.0-15.0); White Blood Count 7.2 10^3/uL (4.0-11.0)
[2024-06-28 06:13] LABS: Alanine Aminotransferase 24 U/L (16-63); Albumin Globulin Ratio 0.8; Albumin Level 3.3 g/dL (3.4-5.0); Alkaline Phosphatase 101 U/L (46-116); Anion Gap 14.8; Aspartate Amino Transferase 18 U/L (15-37); BUN Creatinine Ratio 26.3; Bilirubin Total 1.1 mg/dL (0.2-1.0); Calcium 9.3 mg/dL (8.5-10.1); Carbon Dioxide 21.5 mmol/L (21.0-32.0); Chloride 98 mmol/L (98-107); Estimated GFR (African America 40 (>=60); Estimated GFR (Non-African Ame 33 (>=60); Glucose 156 mg/dL (74-106); Potassium 4.3 mmol/L (3.5-5.1); Sodium 130 mmol/L (136-145); Total Protein 7.3 g/dL (6.4-8.2)
[2024-06-28] MEDS: 0.9 % SODIUM CHLORIDE 500 ML IV (08:59)
[2024-06-28] MEDS: LACTATED RINGER'S SOLUTION 1,000 ML 100 ML IV ×2 (08:59→21:17)
[2024-06-28] MEDS: METOPROLOL SUCCINATE 100 MG TAB.ER.24H PO (09:15)
[2024-06-28] MEDS: METOCLOPRAMIDE HCL 10 MG TABLET PO (09:15)
[2024-06-28] MEDS: BRIMONIDINE TIMOLOL OP (09:15)
[2024-06-28] MEDS: SPIRONOLACTONE 25 MG TABLET PO (09:15)
[2024-06-28] MEDS: FINASTERIDE 5 MG TABLET PO (09:15)
--- NOTE | 2024-06-28 10:10 | CM.NOTE ---
Rounds made with Dr. Means, pt had emesis through the [facility]. Pt remains NPO. No discharge today. HR remains elevated and requiring medication adjustment.
--- NOTE | 2024-06-28 10:18 | P.HP_ITS ---
HPI H&P: HPI History of Present Illness Chief complaint: WEAKNESS Nausa and Vomiting generalized weakness Narrative: 84-year-old male with past medical history of gastroparesis, recurrent small bowel obstruction presented to ER yesterday with nausea, intractable vomiting and inability to keep anything down. According to the patient his symptoms have been ongoing for past 1 to 2 days. His daughter brought him because she was concerned that patient might be dehydrated. He does not have any abdominal pain. His last bowel movement was a few days ago. He is not passing gas. Patient was admitted overnight for observation for intractable nausea and vomiting and plan was to hydrate him and advance his diet as tolerated. However he had a few episodes of vomiting overnight that prompted a CT abdomen pelvis ordered by night hospitalist. CT abdomen pelvis shows dilated stomach co nsistent with gastroparesis along with dilated small bowel loops concerning for small bowel obstruction. Patient seen earlier today and was feeling overall okay except for nausea. CT scan finding, his prior history of recurrent bowel obstruction and the fact that he is still feeling nauseous-we will insert an NG tube start him on low intermittent suction. He also appears clinically dry and I ordered a one-time bolus of 500 mL and increase his maintenance IV fluids to 125 mL/h. Consulted general surgery. Of note, patient has history of permanent A-fib but he presented poorly controlled heart rate has been persistently above 120 likely because of nausea, vomiting and inability to take his oral medications. He is asymptomatic currently and denies chest pain, palpitations Opioid HPI Opioid Management Most Recent Pain and Opioid Data: Last Pain Scale 0 06/28/24 10:08 Last Pain Assessment 06/28/24 10:08 Last ORT Total Score 0 06/27/24 18:07 Last ORT Risk Category Low Risk 06/27/24 18:07 Review of Systems ROS Status of ROS 10 or more systems reviewed and unremark able except as noted in history and below [facility] Medical History (Updated 06/28/24 @ 10:38 by Shaikh Clary MD) (HFpEF) heart failure with preserved ejection fraction ?I50.30 - Unspecified diastolic (congestive) heart failure (ICD-10) HLD (hyperlipidemia) ?E78.5 - Hyperlipidemia, unspecified (ICD-10) Hypothyroidism ?E03.9 - Hypothyroidism, unspecified (ICD-10) Spinal stenosis at L4-L5 level ?M48.061 - Spinal stenosis, lumbar region without neurogenic claudication (ICD-10) Generalized weakness ?R53.1 - Weakness (ICD-10) Glaucoma ?H40.9 - Unspecified glaucoma (ICD-10) Gastroparesis ?K31.84 - Gastroparesis (ICD-10) Ileus following gastrointestinal surgery ?K91.89 - Other postprocedural complications and disorders of digestive system (ICD-10) ?K56.7 - Ileus, unspecified (ICD-10) 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 - Peritoneal adhesions (postprocedural) (postinfection) (ICD-10) Bowel obstruction ?K56.609 - Unspecified intestinal obstruction, unspecified as to partial versus complete obstruction (ICD-10) A-fib ?I48.91 - Unspecified atrial fibrillation (ICD-10) Hypertension ?I10 - Essential (primary) hypertension (ICD-10) Surgical History H/O exploratory laparotomy ?Z98.890 - Other specified postprocedural states (ICD-10) Family History (Updated 06/27/24 @ 18:27 by Alina Cox) Mother Family history of cancer Social History (Updated 06/27/24 @ 18:28 by Alina Cox) Within the past year, how often did you have a drink containing alcohol: never Within the past year, how often did you have six or more drinks on one occasion: never Score interpretation: A score less than 4 is consistent with normal alcohol consumption. 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 Highest level of school completed/degree received: high school graduate Do you want help with school or training: No Are you now , , , , never or living with a partner: In a typical week, how many times do you talk on the telephone with family, friends, or neighbors: 3 or more times per week How often do you get together with friends or relatives: 3 or more times per week How often do you attend orthodox or protestant services: never Do you belong to any clubs or organizations such as orthodox groups unions, fraternal or athletic groups, or school groups: no Total score: 1 Score interpretation: A score of less than or equal to 1 indicates the most socially isolated. Little interest or pleasure in doing things: not at all Feeling down, depressed, or hopeless: not at all Feel stressed/tense/nervous/anxious/difficulty sleeping: not at all Due to disability, difficulty making decisions: No Do you think of yourself as: straight/heterosexual Gender Identity: male Meds Home Medications and Allergies Home Medications ?Medication ?Instructions ?Recorded ?Confirmed ?Type atorvastatin 10 mg tablet 10 mg PO QPM 03/14/23 06/27/24 History empagliflozin 25 mg tablet 12.5 mg PO DAILY 03/14/23 06/27/24 History finasteride 5 mg tablet 5 mg PO DAILY 03/14/23 06/27/24 History metoprolol succinate 100 mg 100 mg PO DAILY 03/14/23 06/27/24 History capsule sprinkle, ext. release 24 hr (Kapspargo Sprinkle) pantoprazole 40 mg tablet,delayed 40 mg PO DAILY 03/14/23 06/27/24 History release spironolactone 25 mg tablet 25 mg PO QAM 03/14/23 06/27/24 History (Aldactone) tamsulosin 0.4 mg capsule 0.4 mg PO Q24H 03/14/23 06/27/24 History warfarin 2.5 mg tablet 2.5 mg PO .COMPLEX 03/14/23 06/27/24 History warfarin 5 mg tablet 5 mg PO .COMPLEX 03/14/23 06/27/24 History brimonidine 0.2 %-timolol 0.5 % 1 drp ophthalmic (eye) QAM 05/30/24 06/27/24 History eye drops latanoprost 0.005 % eye drops 1 drp ophthalmic (eye) QPM 05/30/24 06/27/24 History levothyroxine 50 mcg tablet 50 mcg PO DAILY 05/30/24 06/27/24 History (Euthyrox) metoclopramide HCl 10 mg tablet 10 mg PO BID 05/30/24 06/27/24 History sacubitril 24 mg-valsartan 26 mg 1 tab PO BID 05/30/24 06/27/24 History tablet (Entresto) Allergies Allergy/AdvReac Type Severity Reaction Status Date / Time ondansetron [From Zofran] AdvReac Mild Vomiting Verified 06/27/24 22:57 Exam Constitutional Vital Signs, click to edit/add: Last Vital Signs Temp 97.9 F 06/28/24 04:00 Pulse 134 H 06/28/24 07:38 Resp 26 H 06/28/24 07:38 BP 111/81 06/28/24 07:38 Pulse Ox 98 06/28/24 07:38 O2 Del Method Room Air 06/28/24 02:50 General appearance: cooperative, comfortable, ill appearing and frail appearing [facility] Common normals: normocephalic and head/scalp atraumatic Respiratory Common normals: normal respiratory effort, no use of accessory muscles and clear to auscultation bilaterally Cardio Common normals: S1 normal heart sound and S2 normal heart sound Rate: tachycardic Rhythm: abnormal rhythm GI Common normals: Normal to inspection, nondistended, normoactive bowel sounds present, soft to palpation and non-tender Extremity Common normals: normal to inspection and full ROM Neuro Common normals: oriented x3, moves all extremities and no focal motor deficits Psych Common normals: mental status grossly normal, thought process normal, denies homicidal ideation and denies suicidal ideation Results Labs Labs: Short CBC 06/27/24 06/28/24 06/28/24 Range/Units 14:21 02:20 05:45 WBC 7.6 8.2 7.2 (4.0-11.0) 10^3/uL Hgb 15.7 16.2 15.0 (14.0-18.0) g/dL Hct 47.5 49.8 45.3 (42.0-54.0) % Plt Count 230 205 225 (150-450) 10^3/uL BMP 06/27/24 06/28/24 06/28/24 14:21 02:00 05:45 Sodium 130 L 130 L 130 L Potassium 4.3 3.9 4.3 Chloride 98 97 L 98 Carbon Dioxide 22.0 21.4 21.5 BUN 46.0 H 47.0 H 51.0 H Creatinine 1.94 H 1.94 H 1.94 H Glucose 181 H 165 H 156 H Calcium 9.6 9.3 9.3 Liver Function 06/28/24 06/28/24 Range/Units 02:00 05:45 Total Bilirubin 1.1 H 1.1 H (0.2-1.0) mg/dL AST 33 18 (15-37) U/L ALT 22 24 (16-63) U/L Alkaline Phosphatase 98 101 (46-116) U/L Albumin 3.3 L 3.3 L (3.4-5.0) g/dL Assessment and Plan Assessment and Plan (1) Nondiabetic gastroparesis: Assessment and Plan: Presented with intractable nausea, vomiting. Likely because of prior gastrectomy. Started patient on IV Reglan. He uses p.o. Reglan at home. Started NGT, low intermittent suction. Consult general surgery (2) SBO (small bowel obstruction): Assessment and Plan: Prior history of recurrent small bowel obstruction/ileus. Ordered NG tube to intermittent low suction. Continue with supportive care. General surgery consult (3) Dehydration: Assessment and Plan: Due to poor oral intake, nausea and vomiting. On IV fluids. (4) Atrial fibrillation with RVR: Assessment and Plan: Due to dehydration, inability to take oral medications. IV Lopressor for heart rate above 130. Monitor closely. Asymptomatic. On Coumadin for anticoagulation. (5) RORY (acute kidney injury): Assessment and Plan: Normal renal function at baseline. Presented with creatinine of 1.9. Likely prerenal secondary to dehydration. On IV fluids. Hold Entresto and known (6) Dehydration: Assessment and Plan: Dehydrated due to nausea and vomiting. On IV fluids (7) (HFpEF) heart failure with preserved ejection fraction: Assessment and Plan: I am not entirely sure whether he has congestive heart failure with preserved ejection fraction or reduced ejection fraction. Requested recent echocardiogram from [place]. Hold Entresto, spironolactone due to RORY. Continue with IV hydration. Monitor volume status closely as he is at high risk of volume overload Qualifiers: Heart failure chronicity: chronic Qualified Code(s): I50.32 - Chronic diastolic (congestive) heart failure (8) Hyponatremia: Assessment and Plan: Likely due to dehydration. On IV fluids. Monitor closely. (9) Hypertension: Assessment and Plan: Patient is borderline low. Hold Entresto and Aldactone especially because of RORY. Continue with IV fluids Qualifiers: Hypertension type: primary hypertension Qualified Code(s): I10 - Essential (primary) hypertension (10) Hypothyroidism: Assessment and Plan: Continue with levothyroxine Qualifiers: Hypothyroidism type: unspecified Qualified Code(s): E03.9 - Hypothyroidism, unspecified (11) HLD (hyperlipidemia): Assessment and Plan: Continue with Lipitor. Qualifiers: Hyperlipidemia type: unspecified Qualified Code(s): E78.5 - Hyperlipidemia, unspecified Plan Patient initially admitted as observation to inpatient as symptoms worsened overnight and he is now on NG tube with intermittent low suction. His heart rate is still poorly controlled and persistently above 120. He will require close hemodynamic monitoring, IV medications to control his heart rate general surgical evaluation for small bowel obstruction.
--- NOTE | 2024-06-28 10:51 | XR_ITS ---
The [address] [address] Patient Name: JULIETTE MORROW MRN: [id number] date: 1940 Sex: M Assigned Patient Location: ICU Current Patient Location: ICU Accession/Order Number: [id number] Exam Date: 06/28/2024 11:10 Report Date: 06/28/2024 12:15 At the request of: SHAIKH LULY Procedure: XR chest 1V EXAM: XR chest 1V at 1111 hours HISTORY: Confirm NGT Placement COMPARISON: 03/18/2023 TECHNIQUE: AP upright portable chest x-ray FINDINGS: An NG tube is in place, looped in the distal esophagus, with the tip in the upper esophagus. This needs to be repositioned. No acute infiltrate, effusion or pneumothorax is identified. The osseous structures are grossly intact. XR/XR chest 1V IMPRESSION: The NG tube is looped in the distal esophagus with the tip in the proximal esophagus. This needs to be repositioned. There is no evidence of an acute infiltrate or cardiac decompensation, and the overall appearance of the chest is otherwise unchanged. Electronically authenticated by: JULIETTE SULLIVAN Date: 06/28/2024 12:15
--- NOTE | 2024-06-28 10:55 | SWNOTE1 ---
SW met with pt to discuss dc needs. Pt's daughter in law in room at the time. Pt gave permission for SW to speak to daughter in law and for her to sign any paperwork. Pt lives at home alone. He is usually independent, but has not been feeling well. He does still drive at times. Daughter in law hopeful for discharge to home. He does not have any services coming in to the home at this time. SW to review therapy notes and see if any services recommended. SW did ask daughter in law if pt would like his stay covered under the [facility], she voiced yes. SW let case management know. SW did review therapy notes and SNF is recommended at this time. SW to go back and speak with pt/family. Important Message from Medicare reviewed and discussed with patient's daughter in law. Pt's daugter in law verbalized understanding and signed the form. Original given to patient's daughter in law and copy placed in patient?s chart.
[2024-06-28] MEDS: PANTOPRAZOLE SODIUM 40 MG VIAL IV (13:01)
[2024-06-28] MEDS: METOCLOPRAMIDE HCL 10 MG/2 ML VIAL IVP ×2 (13:01→21:15)
--- NOTE | 2024-06-28 13:48 | SWNOTE1 ---
OT did recommend SNF earlier this morning, but PT did recommend home health and pt was able to ambulate a little farther later this morning. SW to speak with pt and family in regards to discharge plans.
--- NOTE | 2024-06-28 14:39 | P.GSCN_ITS ---
History of Present Illness Consult details Consult date: 06/28/24 Reason for consult: other (Small bowel obstruction) Requesting physician: Shaikh Clary Narrative: Navin Christine is an 84-year-old male who presented to the [facility] emergency room with weakness and nausea and vomiting and diarrhea per his daughter. He lives alone. He has a history of recurrent small bowel obstructions usually treated conservatively. He did have 1 operation for small bowel obstruction at the [facility] about 2 to 3 years ago but he was not sure about the date and his daughter was not available at this time. He denies any nausea or vomiting but is not passing any flatus. He had a CT scan of the abdomen and pelvis performed without contrast orally which shows a small bowel obstruction and gastroparesis with an enlarged stomach. He denies any abdominal pain melena or hematochezia nausea or vomiting. Denies any weight loss. Attempts were made by nursing to place a nasogastric tube but I was told it was curled in the back of the esophagus but when reviewing the chest x-ray it was in the distal esophagus and needed to be straightened and they removed it completely. He appears to be comfortable at the time. CT scan of the abdomen and pelvis were reviewed by me. He is on warfarin. He has a history of atrial fibrillation with RVR. Review of Systems ROS Status of ROS 10 or more systems reviewed and unremark able except as noted in history and below [facility] Medical History (Updated 06/28/24 @ 10:38 by Shaikh Clary MD) (HFpEF) heart failure with preserved ejection fraction ?I50.30 - Unspecified diastolic (congestive) heart failure (ICD-10) HLD (hyperlipidemia) ?E78.5 - Hyperlipidemia, unspecified (ICD-10) Hypothyroidism ?E03.9 - Hypothyroidism, unspecified (ICD-10) Spinal stenosis at L4-L5 level ?M48.061 - Spinal stenosis, lumbar region without neurogenic claudication (ICD-10) Generalized weakness ?R53.1 - Weakness (ICD-10) Glaucoma ?H40.9 - Unspecified glaucoma (ICD-10) Gastroparesis ?K31.84 - Gastroparesis (ICD-10) Ileus following gastrointestinal surgery ?K91.89 - Other postprocedural complications and disorders of digestive system (ICD-10) ?K56.7 - Ileus, unspecified (ICD-10) 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 - Peritoneal adhesions (postprocedural) (postinfection) (ICD-10) Bowel obstruction ?K56.609 - Unspecified intestinal obstruction, unspecified as to partial versus complete obstruction (ICD-10) A-fib ?I48.91 - Unspecified atrial fibrillation (ICD-10) Hypertension ?I10 - Essential (primary) hypertension (ICD-10) Surgical History H/O exploratory laparotomy ?Z98.890 - Other specified postprocedural states (ICD-10) Family History Mother Family history of cancer Social History Within the past year, how often did you have a drink containing alcohol: never Within the past year, how often did you have six or more drinks on one occasion: never Score interpretation: A score less than 4 is consistent with normal alcohol consumption. 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 Highest level of school completed/degree received: high school graduate Do you want help with school or training: No Are you now , , , , never or living with a partner: In a typical week, how many times do you talk on the telephone with family, friends, or neighbors: 3 or more times per week How often do you get together with friends or relatives: 3 or more times per week How often do you attend gnosticism or moravian services: never Do you belong to any clubs or organizations such as gnosticism groups unions, fraternal or athletic groups, or school groups: no Total score: 1 Score interpretation: A score of less than or equal to 1 indicates the most socially isolated. Little interest or pleasure in doing things: not at all Feeling down, depressed, or hopeless: not at all Feel stressed/tense/nervous/anxious/difficulty sleeping: not at all Due to disability, difficulty making decisions: No Do you think of yourself as: straight/heterosexual Gender Identity: male Meds Home Medications and Allergies Home Medications ?Medication ?Instructions ?Recorded ?Confirmed ?Type atorvastatin 10 mg tablet 10 mg PO QPM 03/14/23 06/27/24 History empagliflozin 25 mg tablet 12.5 mg PO DAILY 03/14/23 06/27/24 History finasteride 5 mg tablet 5 mg PO DAILY 03/14/23 06/27/24 History metoprolol succinate 100 mg 100 mg PO DAILY 03/14/23 06/27/24 History capsule sprinkle, ext. release 24 hr (Kapspargo Sprinkle) pantoprazole 40 mg tablet,delayed 40 mg PO DAILY 03/14/23 06/27/24 History release spironolactone 25 mg tablet 25 mg PO QAM 03/14/23 06/27/24 History (Aldactone) tamsulosin 0.4 mg capsule 0.4 mg PO Q24H 03/14/23 06/27/24 History warfarin 2.5 mg tablet 2.5 mg PO .COMPLEX 03/14/23 06/27/24 History warfarin 5 mg tablet 5 mg PO .COMPLEX 03/14/23 06/27/24 History brimonidine 0.2 %-timolol 0.5 % 1 drp ophthalmic (eye) QAM 05/30/24 06/27/24 History eye drops latanoprost 0.005 % eye drops 1 drp ophthalmic (eye) QPM 05/30/24 06/27/24 History levothyroxine 50 mcg tablet 50 mcg PO DAILY 05/30/24 06/27/24 History (Euthyrox) metoclopramide HCl 10 mg tablet 10 mg PO BID 05/30/24 06/27/24 History sacubitril 24 mg-valsartan 26 mg 1 tab PO BID 05/30/24 06/27/24 History tablet (Entresto) Allergies Allergy/AdvReac Type Severity Reaction Status Date / Time ondansetron [From Zofran] AdvReac Mild Vomiting Verified 06/27/24 22:57 Exam Constitutional Vital Signs, click to edit/add: Last Vital Signs Temp 97.6 F 06/28/24 07:38 Pulse 128 H 06/28/24 14:00 Resp 16 06/28/24 11:44 BP 95/62 06/28/24 12:05 Pulse Ox 97 06/28/24 12:00 O2 Del Method Room Air 06/28/24 10:47 Documenting provider has reviewed patient's vital signs: yes Common normals: no apparent distress, average body habitus, oriented x3, healthy appearing, alert and well nourished General appearance: cooperative, comfortable and well developed GI Common normals: Normal to inspection, nondistended, normoactive bowel sounds present, soft to palpation, non-tender, no hepatosplenomegaly and no masses Palpation: soft Percussion: tympanic to percussion Other: Healed midline incision Neuro Common normals: oriented x3, CN's II-XII intact bilaterally, moves all extremities and no focal motor deficits Results Labs Labs: Abnormal lab results 06/27/24 06/28/24 06/28/24 Range/Units 14:21 02:00 02:20 MCV 97.5 H 98.4 H (80.0-94.0) fL Neut % (Auto) 80.8 H 79.0 H (43.0-75.0) % Lymph % (Auto) 10.4 L 10.9 L (20.5-60.0) % Eos % (Auto) 0.5 L (0.9-7.0) % Baso % (Auto) (0.2-2.0) % Lymph # (Auto) 0.8 L 0.9 L (1.2-3.8) 10^3/uL Abs Immat Gran (auto) 0.05 H 0.05 H (0.00-0.03) 10^3/uL Imm/Tot Granulo (auto) 0.7 H 0.6 H (0.0-0.5) % Sodium 130 L 130 L (136-145) mmol/L Chloride 97 L (98-107) mmol/L BUN 46.0 H 47.0 H (7.0-18.0) mg/dL Creatinine 1.94 H 1.94 H (0.70-1.30) mg/dL Est GFR ( Amer) 40 L 40 L (>=60) Est GFR (Non-Af Amer) 33 L 33 L (>=60) Glucose 181 H 165 H (74-106) mg/dL Total Bilirubin 1.1 H (0.2-1.0) mg/dL Albumin 3.3 L (3.4-5.0) g/dL 06/28/24 Range/Units 05:45 MCV 95.8 H (80.0-94.0) fL Neut % (Auto) 77.9 H (43.0-75.0) % Lymph % (Auto) 10.3 L (20.5-60.0) % Eos % (Auto) 0.6 L (0.9-7.0) % Baso % (Auto) 0.0 L (0.2-2.0) % Lymph # (Auto) 0.7 L (1.2-3.8) 10^3/uL Abs Immat Gran (auto) 0.05 H (0.00-0.03) 10^3/uL Imm/Tot Granulo (auto) 0.7 H (0.0-0.5) % Sodium 130 L (136-145) mmol/L Chloride (98-107) mmol/L BUN 51.0 H (7.0-18.0) mg/dL Creatinine 1.94 H (0.70-1.30) mg/dL Est GFR ( Amer) 40 L (>=60) Est GFR (Non-Af Amer) 33 L (>=60) Glucose 156 H (74-106) mg/dL Total Bilirubin 1.1 H (0.2-1.0) mg/dL Albumin 3.3 L (3.4-5.0) g/dL Diabetes panel 06/27/24 06/28/24 06/28/24 Range/Units 14:21 02:00 05:45 Sodium 130 L 130 L 130 L (136-145) mmol/L Potassium 4.3 3.9 4.3 (3.5-5.1) mmol/L Chloride 98 97 L 98 (98-107) mmol/L Carbon Dioxide 22.0 21.4 21.5 (21.0-32.0) mmol/L BUN 46.0 H 47.0 H 51.0 H (7.0-18.0) mg/dL Creatinine 1.94 H 1.94 H 1.94 H (0.70-1.30) mg/dL Glucose 181 H 165 H 156 H (74-106) mg/dL Calcium 9.6 9.3 9.3 (8.5-10.1) mg/dL AST 33 18 (15-37) U/L ALT 22 24 (16-63) U/L Alkaline Phosphatase 98 101 (46-116) U/L Total Protein 7.6 7.3 (6.4-8.2) g/dL Albumin 3.3 L 3.3 L (3.4-5.0) g/dL Calcium panel 06/27/24 06/28/24 06/28/24 Range/Units 14:21 02:00 05:45 Calcium 9.6 9.3 9.3 (8.5-10.1) mg/dL Albumin 3.3 L 3.3 L (3.4-5.0) g/dL Pituitary panel 06/27/24 06/28/24 06/28/24 Range/Units 14:21 02:00 05:45 Sodium 130 L 130 L 130 L (136-145) mmol/L Potassium 4.3 3.9 4.3 (3.5-5.1) mmol/L Chloride 98 97 L 98 (98-107) mmol/L Carbon Dioxide 22.0 21.4 21.5 (21.0-32.0) mmol/L BUN 46.0 H 47.0 H 51.0 H (7.0-18.0) mg/dL Creatinine 1.94 H 1.94 H 1.94 H (0.70-1.30) mg/dL Glucose 181 H 165 H 156 H (74-106) mg/dL Calcium 9.6 9.3 9.3 (8.5-10.1) mg/dL Adrenal panel 06/27/24 06/28/24 06/28/24 Range/Units 14:21 02:00 05:45 Sodium 130 L 130 L 130 L (136-145) mmol/L Potassium 4.3 3.9 4.3 (3.5-5.1) mmol/L Chloride 98 97 L 98 (98-107) mmol/L Carbon Dioxide 22.0 21.4 21.5 (21.0-32.0) mmol/L BUN 46.0 H 47.0 H 51.0 H (7.0-18.0) mg/dL Creatinine 1.94 H 1.94 H 1.94 H (0.70-1.30) mg/dL Glucose 181 H 165 H 156 H (74-106) mg/dL Calcium 9.6 9.3 9.3 (8.5-10.1) mg/dL Total Bilirubin 1.1 H 1.1 H (0.2-1.0) mg/dL AST 33 18 (15-37) U/L ALT 22 24 (16-63) U/L Alkaline Phosphatase 98 101 (46-116) U/L Total Protein 7.6 7.3 (6.4-8.2) g/dL Albumin 3.3 L 3.3 L (3.4-5.0) g/dL All other labs normal. Imaging Chest x-ray: report reviewed Abdomen CT scan report/results: report reviewed and image reviewed Assessment and Plan Assessment and Plan (1) Nondiabetic gastroparesis: (2) SBO (small bowel obstruction): (3) Dehydration: (4) Atrial fibrillation with RVR: (5) RORY (acute kidney injury): (6) (HFpEF) heart failure with preserved ejection fraction: Qualifiers: Heart failure chronicity: chronic Qualified Code(s): I50.32 - Chronic diastolic (congestive) heart failure (7) Hyponatremia: (8) Hypertension: Qualifiers: Hypertension type: primary hypertension Qualified Code(s): I10 - Essential (primary) hypertension (9) Hypothyroidism: Qualifiers: Hypothyroidism type: unspecified Qualified Code(s): E03.9 - Hypothyroidism, unspecified (10) HLD (hyperlipidemia): Qualifiers: Hyperlipidemia type: unspecified Qualified Code(s): E78.5 - Hyperlipidemia, unspecified Plan Recommend nasogastric tube to low intermittent suction small bowel series with Gastrografin only; since nursing unable to place nasogastric tube I will attempt. Would like to treat him conservatively due to his history of nondiabetic gastroparesis and previous history of SBO. He is not appear to be in any acute distress at this time and is not vomiting presently.
--- NOTE | 2024-06-28 14:59 | PM.GSPRC ---
Date of procedure: 06/28/24 Indications for Procedure: Nursing unable to place nasogastric tube Small bowel obstruction Pre-op diagnosis: Small bowel obstruction Post-op diagnosis: same as pre-op Procedure: Placement of nasogastric tube in the left nares Anesthesia: none Surgeon: Francisco Powell Procedure Summary: Patient was placed in the upright sitting position and asked to swallow water through a straw and then a prelude to 16 [place] nasogastric tube was placed through the left nares into the posterior pharynx into the esophagus into the stomach where bilious contents were obtained. The nasogastric tube was placed to low intermittent suction. he tolerated procedure well. Complications: No Pathology: none sent Condition: stable Disposition: ICU
[2024-06-28] MEDS: METOPROLOL TARTRATE 5 MG/5 ML VIAL IVP (15:46)
[2024-06-28] MEDS: 0.9 % SODIUM CHLORIDE 1,000 ML 1000 ML IV (15:49)
--- NOTE | 2024-06-28 15:53 | SWNOTE1 ---
Pt is having NG tube placed. SW to check back with pt tomorrow in regards to discharge planning.
--- NOTE | 2024-06-28 16:24 | SWNOTE1 ---
SW did speak with pt's son and daughter in law in the hallway about HH and SNF. At this time we are going to see how pt progresses to determine discharge plans. SW to check in tomorrow.
--- NOTE | 2024-06-28 19:10 | FL_ITS ---
The [address] [address] Patient Name: JULIETTE MORROW MRN: [id number] date: 1940 Sex: M Assigned Patient Location: ICU Current Patient Location: ICU Accession/Order Number: [id number] Exam Date: 06/28/2024 16:40 Report Date: 06/29/2024 04:31 At the request of: SONNY HOFF Procedure: FL small bowel EXAMINATION: FL small bowel HISTORY: sbo COMPARISON: CT abdomen pelvis 06/28/2024 FINDINGS: Nasogastric tube with tip in distal body of stomach. Large amount of contrast within stomach, but no progression into small bowel. Abnormally distended air-filled small bowel up to 6.8 cm in diameter. FL/FL small bowel IMPRESSION: 1. Air-filled abnormally distended small bowel; obstruction versus ileus. 2. Oral contrast within stomach with no further progression. Consider follow-up abdominal radiographs to evaluate for possible further progression if clinically indicated. Electronically authenticated by: DORIAN YODER Date: 06/29/2024 04:31
[2024-06-28] MEDS: PROMETHAZINE HCL 25 MG in 0.9 % SODIUM CHLORIDE 50 ML 204 MG IV (19:41)
[2024-06-28] MEDS: LATANOPROST 0.005% 2.5 ML BOTTLE 1 DROP OP (21:06)
[2024-06-29] VITALS (49 sets, daily range): BP systolic 80–118; BP diastolic 54–77; PULSE 88–130; TEMP 36.4–37; O2SAT 89–100
[2024-06-29 05:42] LABS: Basophils Percent Auto 0.1 % (0.2-2.0); Eosinophils Percent Auto 0.3 % (0.9-7.0); Hematocrit 43.1 % (42.0-54.0); Hemoglobin 14.3 g/dL (14.0-18.0); Immature Granulocytes Abs Auto 0.04 10^3/uL (0.00-0.03); Immature Granulocytes Pct Auto 0.6 % (0.0-0.5); Lymphocytes Absolute Auto 0.8 10^3/uL (1.2-3.8); Lymphocytes Percent Auto 12.1 % (20.5-60.0); Mean Corpuscular HGB Conc 33.2 g/dL (29.9-35.2); Mean Corpuscular Hemoglobin 31.9 pg (25.9-34.0); Mean Corpuscular Volume 96.2 fL (80.0-94.0); Mean Platelet Volume 9.5 fL (9.5-13.5); Monocytes Absolute Auto 0.9 10^3/uL (0.3-0.8); Monocytes Percent Auto 13.2 % (1.7-12.0); Neutrophils Percent Auto 73.7 % (43.0-75.0); Platelet Count 210 10^3/uL (150-450); Red Blood Count 4.48 10^6/uL (4.70-6.10); Red Cell Distribution Width 14.5 % (11.0-15.0); White Blood Count 6.8 10^3/uL (4.0-11.0)
[2024-06-29 05:56] LABS: Alanine Aminotransferase 17 U/L (16-63); Albumin Globulin Ratio 0.8; Alkaline Phosphatase 81 U/L (46-116); Anion Gap 14.8; Aspartate Amino Transferase 15 U/L (15-37); BUN Creatinine Ratio 27.4; Calcium 8.8 mg/dL (8.5-10.1); Carbon Dioxide 24.2 mmol/L (21.0-32.0); Chloride 99 mmol/L (98-107); Estimated GFR (African America 48 (>=60); Estimated GFR (Non-African Ame 39 (>=60); Globulin 3.6 g/dL; Glucose 122 mg/dL (74-106); Sodium 134 mmol/L (136-145); Total Protein 6.6 g/dL (6.4-8.2)
--- NOTE | 2024-06-29 06:00 | XR_ITS ---
[address] [address] Patient Name: JULIETTE MORROW MRN: [id number] date: 1940 Sex: M Assigned Patient Location: ICU Current Patient Location: ICU Accession/Order Number: [id number] Exam Date: 06/29/2024 05:30 Report Date: 06/29/2024 07:04 At the request of: SHAIKH LULY Procedure: XR acute abdomen series EXAMINATION: XR acute abdomen series HISTORY: sbo COMPARISON: 03/18/2023 FINDINGS: LUNGS: No infiltrate, pneumothorax, or pleural effusion. MEDIASTINUM: No abnormal widening. BOWEL GAS PATTERN: Moderate gastric and marked proximal small bowel distention and contrast filling with small bowel loops measuring up to 7 cm. Distal bowel gas is not observed FREE AIR: None. CALCIFICATIONS: None significant. BONES: No fracture or visible bone lesion. OTHER: Negative. XR/XR acute abdomen series IMPRESSION: High-grade proximal small bowel obstruction Electronically authenticated by: SHAHZAD DUARTE Date: 06/29/2024 07:04
[2024-06-29] MEDS: METOCLOPRAMIDE HCL 10 MG/2 ML VIAL IVP ×3 (06:01→21:00)
[2024-06-29 06:12] LABS: INR 3.96; Prothrombin Time 36.6 sec (9.0-11.6)
[2024-06-29] MEDS: LACTATED RINGER'S SOLUTION 1,000 ML 100 ML IV ×2 (07:33→17:01)
[2024-06-29] MEDS: BRIMONIDINE TIMOLOL OP (09:51)
[2024-06-29] MEDS: 0.9 % SODIUM CHLORIDE 500 ML 1000 ML IV (10:00)
--- NOTE | 2024-06-29 11:00 | REH.PTDLY ---
Physical Therapy Daily Note PT Daily Note/Assess Start: 06/28/24 11:49 Freq: Status: Active Protocol: Document 06/29/24 10:40 KATELIN (Rec: 06/29/24 11:00 KATELIN [id number]) Physical Therapy Daily Note/Assessment Time In 10:28 Time Out 10:38 Subjective Pt up with OT in bathroom upon arrival, care transferred to PT. Therapeutic Exercise Minutes (minutes) 4 Therapeutic Exercise Units 0 Therapeutic Exercise Treatment Standing exs with UE support of RW 10x ea with HR, mini squats, marching, hip flex, and hip abd. Cues for pt to slow down with marching for safety. Therapeutic Activity Minutes (minutes) 6 Therapeutic Activity Units 1 Therapeutic Activity Comments Instructed pt in gait training with RW SBA 200 feet with therapist pushing IV pole with no LOB or unsteadiness from pt. Pt does well with sit to stand transfers performing SBA 2x. Total Therapy Minutes 10 Total Physical Therapy Units 1 Daily Note Summary Pt does well with PT today, pt reports feeling well over all today wishes he could eat something. Progress gait distance next visit and if pt continues to do well, probably DC from PT.
--- NOTE | 2024-06-29 11:16 | CM.NOTE ---
Rounds made with Dr. Means, discussed with pt x-ray results and waiting for surgeon for further recommendations.
--- NOTE | 2024-06-29 11:25 | SWNOTE1 ---
SW reviewed PT/OT notes from today and pt has shown much improvement. Still a possible need for Home Health, depending on how pt progresses. SW to try and speak with pt and family today.
[2024-06-29] MEDS: DIGOXIN 500 MCG/2 ML AMPUL 250 MCG IV ×2 (12:08→20:51)
[2024-06-29] MEDS: PANTOPRAZOLE SODIUM 40 MG VIAL IV (12:08)
--- NOTE | 2024-06-29 12:29 | PM.GSPN ---
Progress Note: A&P Assessment and Plan (1) Nondiabetic gastroparesis: (2) SBO (small bowel obstruction): Assessment and Plan: 1. Clamp trial, if has significant nausea or any emesis set NGT back to suction 2. Encourage ambulation, up in chair, activity, have PT/OT work with patient 3. Cont IVF and management per primary, goal K+ 4, Mg 2 (3) Dehydration: (4) Atrial fibrillation with RVR: (5) RORY (acute kidney injury): (6) (HFpEF) heart failure with preserved ejection fraction: Qualifiers: Heart failure chronicity: chronic Qualified Code(s): I50.32 - Chronic diastolic (congestive) heart failure (7) Hyponatremia: (8) Hypertension: Qualifiers: Hypertension type: primary hypertension Qualified Code(s): I10 - Essential (primary) hypertension (9) Hypothyroidism: Qualifiers: Hypothyroidism type: unspecified Qualified Code(s): E03.9 - Hypothyroidism, unspecified (10) HLD (hyperlipidemia): Qualifiers: Hyperlipidemia type: unspecified Qualified Code(s): E78.5 - Hyperlipidemia, unspecified Subjective Subjective Patient reports: no new complaints Interval history: The patient states he is feeling well today. Denies any nausea or emesis. He feels that his stomach has gotten better and less distended. He says he is passing gas and had gas output yesterday. He is unsure of when his last bowel movement was. Denies any abdominal pain. Exam Narrative Exam Narrative: General: awake, alert, no distress Head: normocephalic, atraumatic Neck: supple, no tracheal deviation Heart: tachycardic Lungs: equal chest rise and fall, non labored breathing Abdomen: soft, non tender, no rebound or guarding Extremities: no lesions, grossly normal Skin: intact, no cyanosis Psychological: no apparent speech or mood disorder, appropriate for encounter Constitutional Vital Signs, click to edit/add: Last Vital Signs Temp 97.2 F L 06/28/24 23:06 Pulse 130 H 06/29/24 12:08 Resp 16 06/29/24 12:08 BP 81/54 L 06/29/24 02:57 Pulse Ox 99 06/29/24 12:08 O2 Del Method Room Air 06/29/24 10:41
--- NOTE | 2024-06-29 12:39 | PM.IMPN1 ---
Progress Note: A&P Assessment and Plan (1) Hypotension due to hypovolemia: Assessment and Plan: Reported due to hypovolemia/dehydration. Give 1 L fluid bolus. Continue with IV fluids at 125 an hour. Monitor blood pressure closely. Avoid antihypertensives (2) Nondiabetic gastroparesis: Assessment and Plan: Patient on IV Reglan 3 times daily. NG tube in place with about 3500 mL output. Patient seen by general surgery. X-ray abdomen from this morning reviewed and discussed with patient and general surgery. General surgery recommended clamping NG tube and slowly advancing diet. (3) SBO (small bowel obstruction): Assessment and Plan: History of recurrent small bowel obstruction. NG tube is in place with about 3500 mL output. Seen by general surgery. NG tube clamped earlier today and plan is to advance diet slowly. (4) Dehydration: Assessment and Plan: Appears dehydrated with low blood pressure in the morning. Ordered one 1 L normal saline bolus. Continue with maintenance IV hydration at 125 mL/h. (5) Atrial fibrillation with RVR: Assessment and Plan: Poorly controlled rate likely because of dehydration. Also because he has not been able to take p.o. medication. Now that NG tube is clamped, we will give him his oral Toprol. I also added IV digoxin. (6) RORY (acute kidney injury): Assessment and Plan: Renal function is improving with IV hydration. Monitor urine output and serum creatinine closely (7) (HFpEF) heart failure with preserved ejection fraction: Assessment and Plan: History of heart failure with preserved ejection fraction. He had an echocardiogram last year. Monitor volume status closely while on IV fluids to avoid risk of volume overload Qualifiers: Heart failure chronicity: chronic Qualified Code(s): I50.32 - Chronic diastolic (congestive) heart failure (8) Hyponatremia: Assessment and Plan: Improving with IV hydration. Likely because of hypovolemia. Continue with IV hydration (9) Hypertension: Assessment and Plan: Hold antihypertensives as blood pressure is low. Will only try to give him Toprol to help with heart rate in A-fib. Qualifiers: Hypertension type: primary hypertension Qualified Code(s): I10 - Essential (primary) hypertension (10) Hypothyroidism: Assessment and Plan: Continue with levothyroxine. Qualifiers: Hypothyroidism type: unspecified Qualified Code(s): E03.9 - Hypothyroidism, unspecified (11) HLD (hyperlipidemia): Assessment and Plan: Continue with atorvastatin. Qualifiers: Hyperlipidemia type: unspecified Qualified Code(s): E78.5 - Hyperlipidemia, unspecified Internal Medicine - PN: Subj Subjective Interval history: Seen and examined. Patient appears comfortable. He has an NG tube in place. According to the nurse, about 3500 mL output overnight. He denies abdominal pain. He did not have a bowel movement but he reports passing gas. Exam Constitutional Vital Signs, click to edit/add: Last Vital Signs Temp 97.2 F L 06/28/24 23:06 Pulse 130 H 06/29/24 12:08 Resp 16 06/29/24 12:08 BP 81/54 L 06/29/24 02:57 Pulse Ox 99 06/29/24 12:08 O2 Del Method Room Air 06/29/24 10:41 General appearance: cooperative, comfortable, ill appearing and frail appearing Respiratory Common normals: normal respiratory effort, no use of accessory muscles and clear to auscultation bilaterally Effort & inspection: able to speak in complete sentences Cardio Common normals: S1 normal heart sound and S2 normal heart sound Rate: tachycardic Rhythm: abnormal rhythm GI Common normals: Normal to inspection, nondistended, normoactive bowel sounds present, soft to palpation, non-tender and no hepatosplenomegaly Extremity Common normals: normal to inspection and full ROM Neuro Common normals: oriented x3, moves all extremities, no focal motor deficits and no sensory deficits noted Sensorium/orientation: lethargic Psych Common normals: mental status grossly normal, thought process normal, denies homicidal ideation and denies suicidal ideation Internal Medicine - PN: Obj Da Labs Labs: Laboratory Results - last 24 hr 06/29/24 05:31 WBC 6.8 RBC 4.48 L Hgb 14.3 Hct 43.1 MCV 96.2 H MCH 31.9 MCHC 33.2 RDW 14.5 Plt Count 210 MPV 9.5 Neut % (Auto) 73.7 Lymph % (Auto) 12.1 L [place] % (Auto) 13.2 H Eos % (Auto) 0.3 L Baso % (Auto) 0.1 L Neut # (Auto) 5.0 Lymph # (Auto) 0.8 L [place] # (Auto) 0.9 H Eos # (Auto) 0.0 Baso # (Auto) 0.0 Abs Immat Gran (auto) 0.04 H Imm/Tot Granulo (auto) 0.6 H PT 36.6 H INR 3.96 Sodium 134 L Potassium 4.0 Chloride 99 Carbon Dioxide 24.2 Anion Gap 14.8 BUN 46.0 H Creatinine 1.68 H Est GFR ( Amer) 48 L Est GFR (Non-Af Amer) 39 L BUN/Creatinine Ratio 27.4 Glucose 122 H Calcium 8.8 Total Bilirubin 1.0 AST 15 ALT 17 Alkaline Phosphatase 81 Total Protein 6.6 Albumin 3.0 L Globulin 3.6 Albumin/Globulin Ratio 0.8
--- NOTE | 2024-06-29 15:29 | SWNOTE1 ---
SW spoke to the pt about the possibility of having home health come in to do exercises with him. He is not sure at this time. SW to continue to check on pt daily.
--- NOTE | 2024-06-29 18:42 | PC.NURSE ---
pt had moderate amount of yellow liquid stool in toilet
[2024-06-29] MEDS: ATORVASTATIN CALCIUM 10 MG TABLET PO (20:53)
[2024-06-29] MEDS: TAMSULOSIN HCL 0.4 MG CAPSULE PO (21:00)
[2024-06-29] MEDS: LATANOPROST 0.005% 2.5 ML BOTTLE 1 DROP OP (21:00)
[2024-06-29] MEDS: METOPROLOL SUCCINATE 100 MG TAB.ER.24H PO (21:03)
[2024-06-30] VITALS (40 sets, daily range): BP systolic 98–113; BP diastolic 56–82; PULSE 68–128; TEMP 36.6–36.9; O2SAT 91–100
[2024-06-30] MEDS: LACTATED RINGER'S SOLUTION 1,000 ML 100 ML IV ×3 (00:17→20:15)
[2024-06-30] MEDS: DIGOXIN 500 MCG/2 ML AMPUL 250 MCG IV (03:50)
[2024-06-30] MEDS: METOCLOPRAMIDE HCL 10 MG/2 ML VIAL IVP ×3 (05:28→20:15)
[2024-06-30] MEDS: LEVOTHYROXINE SODIUM 25 MCG TABLET 50 MCG PO (05:28)
[2024-06-30 05:42] LABS: Basophils Percent Auto 0.4 % (0.2-2.0); Eosinophils Absolute Auto 0.1 10^3/uL (0.0-0.7); Eosinophils Percent Auto 1.8 % (0.9-7.0); Hematocrit 41.5 % (42.0-54.0); Hemoglobin 13.4 g/dL (14.0-18.0); Immature Granulocytes Abs Auto 0.02 10^3/uL (0.00-0.03); Immature Granulocytes Pct Auto 0.4 % (0.0-0.5); Lymphocytes Absolute Auto 0.9 10^3/uL (1.2-3.8); Lymphocytes Percent Auto 15.6 % (20.5-60.0); Mean Corpuscular HGB Conc 32.3 g/dL (29.9-35.2); Mean Corpuscular Hemoglobin 31.8 pg (25.9-34.0); Mean Corpuscular Volume 98.3 fL (80.0-94.0); Mean Platelet Volume 9.4 fL (9.5-13.5); Monocytes Absolute Auto 0.9 10^3/uL (0.3-0.8); Monocytes Percent Auto 16.7 % (1.7-12.0); Neutrophils Absolute Auto 3.7 10^3/uL (1.4-6.5); Neutrophils Percent Auto 65.1 % (43.0-75.0); Platelet Count 180 10^3/uL (150-450); Red Blood Count 4.22 10^6/uL (4.70-6.10); Red Cell Distribution Width 14.6 % (11.0-15.0); White Blood Count 5.6 10^3/uL (4.0-11.0)
--- NOTE | 2024-06-30 05:58 | PC.NURSE ---
patient was able to swallow his morning synthroid with a couple sips of water without issue
[2024-06-30 05:59] LABS: Alanine Aminotransferase 12 U/L (16-63); Albumin Globulin Ratio 0.8; Albumin Level 2.7 g/dL (3.4-5.0); Alkaline Phosphatase 75 U/L (46-116); Anion Gap 10.9; Aspartate Amino Transferase 16 U/L (15-37); BUN Creatinine Ratio 26.4; Bilirubin Total 1.2 mg/dL (0.2-1.0); Calcium 8.6 mg/dL (8.5-10.1); Chloride 104 mmol/L (98-107); Estimated GFR (African America 55 (>=60 mL/min/1.73m^2); Estimated GFR (Non-African Ame 45 (>=60 mL/min/1.73m^2); Globulin 3.4 g/dL; Glucose 91 mg/dL (74-106); Potassium 3.9 mmol/L (3.5-5.1); Sodium 134 mmol/L (136-145); Total Protein 6.1 g/dL (6.4-8.2)
[2024-06-30 06:00] LABS: INR 3.33; Prothrombin Time 31.3 sec (9.0-11.6)
--- NOTE | 2024-06-30 07:58 | PM.GSPN ---
Progress Note: A&P Assessment and Plan (1) Nondiabetic gastroparesis: (2) SBO (small bowel obstruction): Assessment and Plan: Ok for trial of clears. If tolerates can pull NGT, monitor bowel function Informed patient to go slow with CLD today Encourage ambulation and activity, PT/OT goal K+4, Mg 2 (3) Dehydration: (4) Atrial fibrillation with RVR: (5) RORY (acute kidney injury): (6) (HFpEF) heart failure with preserved ejection fraction: Qualifiers: Heart failure chronicity: chronic Qualified Code(s): I50.32 - Chronic diastolic (congestive) heart failure (7) Hyponatremia: (8) Hypertension: Qualifiers: Hypertension type: primary hypertension Qualified Code(s): I10 - Essential (primary) hypertension (9) Hypothyroidism: Qualifiers: Hypothyroidism type: unspecified Qualified Code(s): E03.9 - Hypothyroidism, unspecified (10) HLD (hyperlipidemia): Qualifiers: Hyperlipidemia type: unspecified Qualified Code(s): E78.5 - Hyperlipidemia, unspecified Subjective Subjective Interval history: doing well this am. No complaints. Had loose BM overnight per RN. Patient states he is passing flatus. Denies n/v. Exam Narrative Exam Narrative: General: awake, alert, no distress Head: normocephalic, atraumatic Neck: supple, no tracheal deviation Heart: tachycardic Lungs: equal chest rise and fall, non labored breathing Abdomen: soft, non tender, no rebound or guarding Extremities: no lesions, grossly normal Skin: intact, no cyanosis Psychological: no apparent speech or mood disorder, appropriate for encounter Constitutional Vital Signs, click to edit/add: Last Vital Signs Temp 98.0 F 06/30/24 00:19 Pulse 95 H 06/30/24 06:00 Resp 18 06/30/24 03:54 BP 98/74 06/30/24 03:54 Pulse Ox 96 06/30/24 06:00 O2 Del Method Room Air 06/30/24 03:54
[2024-06-30] MEDS: FINASTERIDE 5 MG TABLET PO (08:08)
[2024-06-30] MEDS: BRIMONIDINE TIMOLOL OP (08:09)
--- NOTE | 2024-06-30 10:15 | CM.NOTE ---
Rounds made with Dr. Means, advance diet to CL today. Pt has had 2 BM's and denies any pain or nausea. Pt can transfer to Med-Surg floor.
--- NOTE | 2024-06-30 10:22 | PM.IMPN1 ---
Progress Note: A&P Assessment and Plan (1) Nondiabetic gastroparesis: Assessment and Plan: Patient on IV Reglan 3 times daily. NG tube removed earlier today. Started patient on clear liquid diet. (2) SBO (small bowel obstruction): Assessment and Plan: History of recurrent small bowel obstruction. NG tube removed. Patient has had 2 bowel movements in 24 hours. Started patient on clear liquid diet. Slowly advance diet as tolerated. (3) Dehydration: Assessment and Plan: Decrease IV fluids to 100 an hour. At high risk of volume overload because of history of congestive failure. (4) Atrial fibrillation with RVR: Assessment and Plan: Rate is now well-controlled after he was able to tolerate p.o. Toprol. IV digoxin also helped his heart rate and his heart rate is now consistently below 100. Continue with p.o. Toprol. (5) RORY (acute kidney injury): Assessment and Plan: Renal function is improving with IV hydration. Monitor urine output and serum creatinine closely (6) (HFpEF) heart failure with preserved ejection fraction: Assessment and Plan: History of heart failure with preserved ejection fraction. Monitor volume status closely while on IV fluids to avoid risk of volume overload Qualifiers: Heart failure chronicity: chronic Qualified Code(s): I50.32 - Chronic diastolic (congestive) heart failure (7) Hyponatremia: Assessment and Plan: More or less resolved with IV hydration.. Likely because of hypovolemia. (8) Hypertension: Assessment and Plan: Hold antihypertensives as blood pressure is borderline low. Continue with Toprol to help with heart rate. Qualifiers: Hypertension type: primary hypertension Qualified Code(s): I10 - Essential (primary) hypertension (9) Hypothyroidism: Assessment and Plan: Continue with levothyroxine. Qualifiers: Hypothyroidism type: unspecified Qualified Code(s): E03.9 - Hypothyroidism, unspecified (10) HLD (hyperlipidemia): Assessment and Plan: Continue with atorvastatin. Qualifiers: Hyperlipidemia type: unspecified Qualified Code(s): E78.5 - Hyperlipidemia, unspecified (11) Hypotension due to hypovolemia: Assessment and Plan: Blood pressure is now acceptable. Still borderline low. Continue with IV hydration. Hold antihypertensives and continue with only Toprol. Plan Stable for transfer to [facility] Internal Medicine - PN: Subj Subjective Interval history: Seen and examined. Patient appears comfortable. Doing better. No nausea or vomiting. Abdominal pain is resolved. He had 2 bowel movements in 24 hours. He is tolerating ice chips. Exam Constitutional Vital Signs, click to edit/add: Last Vital Signs Temp 98.0 F 06/30/24 00:19 Pulse 97 H 06/30/24 08:00 Resp 18 06/30/24 08:00 BP 98/74 06/30/24 03:54 Pulse Ox 96 06/30/24 08:00 O2 Del Method Room Air 06/30/24 03:54 General appearance: cooperative, comfortable, ill appearing and frail appearing Respiratory Common normals: normal respiratory effort, no use of accessory muscles and clear to auscultation bilaterally Effort & inspection: able to speak in complete sentences Cardio Common normals: S1 normal heart sound and S2 normal heart sound Rate: tachycardic Rhythm: abnormal rhythm GI Common normals: Normal to inspection, nondistended, normoactive bowel sounds present, soft to palpation, non-tender and no hepatosplenomegaly Extremity Common normals: normal to inspection and full ROM Neuro Common normals: oriented x3, moves all extremities, no focal motor deficits and no sensory deficits noted Sensorium/orientation: lethargic Psych Common normals: mental status grossly normal, thought process normal, denies homicidal ideation and denies suicidal ideation Internal Medicine - PN: Obj Da Labs Labs: Laboratory Results - last 24 hr 06/30/24 05:30 WBC 5.6 RBC 4.22 L Hgb 13.4 L Hct 41.5 L MCV 98.3 H MCH 31.8 MCHC 32.3 RDW 14.6 Plt Count 180 MPV 9.4 L Neut % (Auto) 65.1 Lymph % (Auto) 15.6 L [place] % (Auto) 16.7 H Eos % (Auto) 1.8 Baso % (Auto) 0.4 Neut # (Auto) 3.7 Lymph # (Auto) 0.9 L [place] # (Auto) 0.9 H Eos # (Auto) 0.1 Baso # (Auto) 0.0 Abs Immat Gran (auto) 0.02 Imm/Tot Granulo (auto) 0.4 PT 31.3 H INR 3.33 Sodium 134 L Potassium 3.9 Chloride 104 Carbon Dioxide 23.0 Anion Gap 10.9 BUN 39.0 H Creatinine 1.48 H Est GFR ( Amer) 55 L Est GFR (Non-Af Amer) 45 L BUN/Creatinine Ratio 26.4 Glucose 91 Calcium 8.6 Total Bilirubin 1.2 H AST 16 ALT 12 L Alkaline Phosphatase 75 Total Protein 6.1 L Albumin 2.7 L Globulin 3.4 Albumin/Globulin Ratio 0.8
--- NOTE | 2024-06-30 11:29 | REH.PTDLY ---
Physical Therapy Daily Note PT Daily Note/Assess Start: 06/28/24 11:49 Freq: Status: Active Protocol: Document 06/30/24 11:27 [id number] (Rec: 06/30/24 11:29 [email or web address] [id number]) Physical Therapy Daily Note/Assessment Time In 11:07 Time Out 11:17 Subjective Pt in chair upon arrival, agreeable to therapy. Therapeutic Exercise Minutes (minutes) 4 Therapeutic Exercise Units 0 Therapeutic Exercise Treatment Instructed in standing exs 10x ea with UE support with pt being able to perform with no complaints. Therapeutic Activity Minutes (minutes) 6 Therapeutic Activity Units 1 Therapeutic Activity Comments Pt ind with sit to/from stand transfers. Gait training with pt's rollator from home 315 feet Ind. LICENSED ELECTRICIAN pushes IV pole alongside pt. No complaints with gait or signs of LOB or fatigue. Total Therapy Minutes 10 Total Physical Therapy Units 1 Daily Note Summary DC from PT at this time at pt has met goals and has no difficulties with mobility at this time. Nursing notified.
[2024-06-30] MEDS: PANTOPRAZOLE SODIUM 40 MG VIAL IV (13:18)
--- NOTE | 2024-06-30 14:55 | OT.DAILY ---
Occupational Therapy Daily Note OT Inpatient Daily Visit Note Start: 06/28/24 09:44 Freq: Status: Active Protocol: Document 06/30/24 14:45 [id number] (Rec: 06/30/24 14:55 [id number]) OT Visit Details Time In/Time Out Time In 14:15 Time Out 14:45 OT Treatment Plan Subjective Subjective Pt reports he is feeling great , and ready to return home. Talkative and agreeable to self-care. Objective Objective Pt reports the need for toileting. SBA from chair STS, SBA ambulating to bathroom. Good use of rollator and safe transfer techniques. I doffing LB garments, I donning LB garments. I alaina-care. Follows good sequencing with hand hygiene. Passed a BM at this time, no blood in stool. Pt walked hallway 3x with rollator w/o fatigue or LOB, IV line pushed behind Pt. No SOB, maintaining good posture. Pt agreeable to sit in chair when finished walking with feet elevated. Assessment Assessment Pt tolerated treatment well. AAOx4. Pt is eager to return home. Continue OT POC. OT Racker Octave Board Timed Codes Self-[facility] Management minutes ( 30 minutes) Self-[facility] Management units 2
[2024-06-30] MEDS: WARFARIN SODIUM 2.5 MG TABLET PO (17:43)
[2024-06-30] MEDS: TAMSULOSIN HCL 0.4 MG CAPSULE PO (20:15)
[2024-06-30] MEDS: METOPROLOL SUCCINATE 100 MG TAB.ER.24H PO (20:15)
[2024-06-30] MEDS: ATORVASTATIN CALCIUM 10 MG TABLET PO (20:15)
[2024-06-30] MEDS: LATANOPROST 0.005% 2.5 ML BOTTLE 1 DROP OP (20:20)
[2024-07-01] VITALS (13 sets, daily range): BP systolic 99–100; BP diastolic 64–66; PULSE 70–111; TEMP 36.6; O2SAT 92–99
[2024-07-01] MEDS: METOCLOPRAMIDE HCL 10 MG/2 ML VIAL IVP ×2 (05:58→13:14)
[2024-07-01] MEDS: LEVOTHYROXINE SODIUM 25 MCG TABLET 50 MCG PO (05:58)
[2024-07-01] MEDS: LACTATED RINGER'S SOLUTION 1,000 ML 100 ML IV (06:00)
[2024-07-01 06:37] LABS: Basophils Percent Auto 0.4 % (0.2-2.0); Eosinophils Absolute Auto 0.1 10^3/uL (0.0-0.7); Eosinophils Percent Auto 2.9 % (0.9-7.0); Hematocrit 40.6 % (42.0-54.0); Hemoglobin 13.1 g/dL (14.0-18.0); Immature Granulocytes Abs Auto 0.04 10^3/uL (0.00-0.03); Immature Granulocytes Pct Auto 0.8 % (0.0-0.5); Lymphocytes Absolute Auto 0.8 10^3/uL (1.2-3.8); Lymphocytes Percent Auto 16.5 % (20.5-60.0); Mean Corpuscular HGB Conc 32.3 g/dL (29.9-35.2); Mean Corpuscular Hemoglobin 31.8 pg (25.9-34.0); Mean Corpuscular Volume 98.5 fL (80.0-94.0); Mean Platelet Volume 9.6 fL (9.5-13.5); Monocytes Absolute Auto 0.8 10^3/uL (0.3-0.8); Monocytes Percent Auto 16.9 % (1.7-12.0); Neutrophils Percent Auto 62.5 % (43.0-75.0); Platelet Count 172 10^3/uL (150-450); Red Blood Count 4.12 10^6/uL (4.70-6.10); Red Cell Distribution Width 14.1 % (11.0-15.0); White Blood Count 4.8 10^3/uL (4.0-11.0)
[2024-07-01 06:49] LABS: INR 1.71; Prothrombin Time 17.2 sec (9.0-11.6)
[2024-07-01 06:57] LABS: Alanine Aminotransferase 16 U/L (16-63); Albumin Globulin Ratio 0.8; Albumin Level 2.5 g/dL (3.4-5.0); Alkaline Phosphatase 71 U/L (46-116); Anion Gap 13.9; Aspartate Amino Transferase 21 U/L (15-37); BUN Creatinine Ratio 22.6; Bilirubin Total 0.9 mg/dL (0.2-1.0); Calcium 8.2 mg/dL (8.5-10.1); Carbon Dioxide 19.8 mmol/L (21.0-32.0); Chloride 107 mmol/L (98-107); Estimated GFR (African America >60 (>=60 mL/min/1.73m^2); Estimated GFR (Non-African Ame >60 (>=60 mL/min/1.73m^2); Globulin 3.1 g/dL; Glucose 84 mg/dL (74-106); Potassium 3.7 mmol/L (3.5-5.1); Sodium 137 mmol/L (136-145); Total Protein 5.6 g/dL (6.4-8.2)
[2024-07-01] MEDS: FINASTERIDE 5 MG TABLET PO (08:50)
[2024-07-01] MEDS: BRIMONIDINE TIMOLOL OP (08:51)
--- NOTE | 2024-07-01 09:36 | PM.DS1 ---
DS: Providers Provider Date of admission: 06/28/24 10:13 Primary care physician: Non-Staff PhysicianMD Admitting clinician: Shaikh Clary Attending physician on admission: Shaikh Clary Consults: 06/27/24 18:50 Occupational Therapy Eval and Treat Routine Reason for consultation: Ambulatory dysfunction/weakness Physical Therapy Eval and Treat Routine Reason for consultation: Ambulatory dysfunction/weakness 06/28/24 10:18 Consult to General Surgeon Routine Consulting Provider: Mele Preston Reason for consultation: sbo Attending physician on discharge: Shaikh Clary Discharging clinician: Shaikh Clary Anticipated date of discharge: 07/01/24 DS: Diagnosis Discharge Diagnosis (1) Nondiabetic gastroparesis: (2) SBO (small bowel obstruction): (3) Dehydration: (4) Atrial fibrillation with RVR: (5) RORY (acute kidney injury): (6) (HFpEF) heart failure with preserved ejection fraction: Qualifiers: Heart failure chronicity: chronic Qualified Code(s): I50.32 - Chronic diastolic (congestive) heart failure (7) Hyponatremia: (8) Hypertension: Qualifiers: Hypertension type: primary hypertension Qualified Code(s): I10 - Essential (primary) hypertension (9) Hypothyroidism: Qualifiers: Hypothyroidism type: unspecified Qualified Code(s): E03.9 - Hypothyroidism, unspecified (10) HLD (hyperlipidemia): Qualifiers: Hyperlipidemia type: unspecified Qualified Code(s): E78.5 - Hyperlipidemia, unspecified (11) Hypotension due to hypovolemia: DS: Summary Hospital Course Hospital Course: 84-year-old male with past medical history of gastroparesis, recurrent small bowel obstruction presented to ER with nausea, intractable vomiting and inability to keep anything down x 2 days.patient's last bowel movement was a few days ago and he was not passing gas. Patient was admitted for intractable nausea and vomiting and initially plan was to hydrate him and advance his diet as tolerated. However his symptoms worsened overnight that prompted CT abdomen pelvis indicating dilated stomach consistent with gastroparesis along with dilated small bowel loops concerning for small bowel obstruction. NG tube was placed for bowel decompression and patient was made NPO. He had about 3500 mL output with NG tube and subsequently had a few good bowel movements while in the hospital. His NGT was clamped initially and then removed. Patient's diet was advanced and he is tolerating full liquid diet with no difficulty. During the course of admission, he was seen by general surgery and patient was managed medically/conservatively for small bowel obstruction with their input and recommendations. . During the course of admission, his heart rate was poorly controlled because of his inability to take p.o. medications. He received IV Lopressor as needed and subsequently IV digoxin. His rate is now well-controlled since he has been using his oral Toprol. Due to dehydration and decreased p.o. intake, he was also borderline hypotensive and required IV fluid resuscitation during the course of admission. Given his age/Frailty, I recommend stopping aldactone/entresto gisella because his BP on average runs close to 100/60. He is at high risk of hypotension/fall and dehydration due to his recurrent GI symptoms. He will need to discuss this with his PCP and Cardiology. Patient is doing considerably better today. He is more or less at his baseline. Medically stable for discharge. Status at Discharge Functional status at discharge: uses cane/walker Overall status at discharge: patient is back to baseline Time Spent with Patient Time attestation: Total time spent providing and/or coordinating discharge services: Time spent: greater than 30 minutes Exam Constitutional Vital Signs, click to edit/add: Last Vital Signs Temp 97.8 F 07/01/24 06:04 Pulse 70 07/01/24 08:00 Resp 16 07/01/24 06:04 BP 100/64 07/01/24 06:04 Pulse Ox 94 L 07/01/24 06:04 O2 Del Method Room Air 07/01/24 06:04 General appearance: cooperative, comfortable and frail appearing Respiratory Common normals: normal respiratory effort, no use of accessory muscles and clear to auscultation bilaterally Effort & inspection: able to speak in complete sentences Cardio Common normals: S1 normal heart sound and S2 normal heart sound Rate: tachycardic Rhythm: abnormal rhythm GI Common normals: Normal to inspection, nondistended, normoactive bowel sounds present, soft to palpation, non-tender and no hepatosplenomegaly Extremity Common normals: normal to inspection and full ROM Neuro Common normals: oriented x3, moves all extremities, no focal motor deficits and no sensory deficits noted Psych Common normals: mental status grossly normal, thought process normal, denies homicidal ideation and denies suicidal ideation DS: Data Data Completed and Pending Labs on day of discharge: Labs from last 24 hours 07/01/24 06:08 WBC 4.8 RBC 4.12 L Hgb 13.1 L Hct 40.6 L MCV 98.5 H MCH 31.8 MCHC 32.3 RDW 14.1 Plt Count 172 MPV 9.6 Neut % (Auto) 62.5 Lymph % (Auto) 16.5 L [place] % (Auto) 16.9 H Eos % (Auto) 2.9 Baso % (Auto) 0.4 Neut # (Auto) 3.0 Lymph # (Auto) 0.8 L [place] # (Auto) 0.8 Eos # (Auto) 0.1 Baso # (Auto) 0.0 Abs Immat Gran (auto) 0.04 H Imm/Tot Granulo (auto) 0.8 H PT 17.2 H INR 1.71 Sodium 137 Potassium 3.7 Chloride 107 Carbon Dioxide 19.8 L Anion Gap 13.9 BUN 26.0 H Creatinine 1.15 Est GFR ( Amer) >60 Est GFR (Non-Af Amer) >60 BUN/Creatinine Ratio 22.6 Glucose 84 Calcium 8.2 L Total Bilirubin 0.9 AST 21 ALT 16 Alkaline Phosphatase 71 Total Protein 5.6 L Albumin 2.5 L Globulin 3.1 Albumin/Globulin Ratio 0.8 Discharge Plan Discharge Disposition: Home, Self-Care Condition: Good Discharge Medications: Continued pantoprazole 40 mg tablet,delayed release (DR/EC) 40 mg PO DAILY tamsulosin 0.4 mg capsule 0.4 mg PO Q24H finasteride 5 mg tablet 5 mg PO DAILY empagliflozin 25 mg tablet 12.5 mg PO DAILY atorvastatin 10 mg tablet 10 mg PO QPM [place] Sprinkle 100 mg capsule,sprinkle,ER 24hr 100 mg PO DAILY warfarin 2.5 mg tablet 2.5 mg PO .COMPLEX Rx Instructions: 2.5 mg orally friday, friday, friday and friday; warfarin 5 mg tablet 5 mg PO .COMPLEX Rx Instructions: 5 mg orally friday, and ; brimonidine-timolol 0.2-0.5 % drops 1 drp ophthalmic (eye) QAM latanoprost 0.005 % drops 1 drp ophthalmic (eye) QPM metoclopramide HCl 10 mg tablet 10 mg PO BID levothyroxine [Euthyrox] 50 mcg tablet 50 mcg PO DAILY Discontinued spironolactone [Aldactone] 25 mg tablet 25 mg PO QAM Entresto 24-26 mg tablet 1 tab PO BID Activity: increase activity as tolerated Diet: advance to your usual diet Print Language: Gambian Forms: Portal Instructions Follow Up Appointments: F/u PCP in one week
--- NOTE | 2024-07-01 10:16 | CM.NOTE ---
Rounds made with Dr. Means. Dr Means discussed with Navin probable discharge today if tolerates diet. Discussed living situation and Navin states he lives alone but feels comfortable going home as his kids live within 15 minutes of him. Navin's son arrived as Dr Means was talking with Navin and is aware Navin is being discharged later if tolerates diet. Navin and Navin's son verbalized understanding.
--- NOTE | 2024-07-01 10:59 | SWNOTE1 ---
SW spoke to pt and he voices no needs at this time. Pt is doing much better with PT/OT. Pt is looking forward to getting home to his cat.
[2024-07-01] MEDS: PANTOPRAZOLE SODIUM 40 MG VIAL IV (11:13)
--- NOTE | 2024-07-01 11:21 | PM.GSPN ---
Progress Note: A&P Assessment and Plan (1) Nondiabetic gastroparesis: (2) SBO (small bowel obstruction): Assessment and Plan: 1. Adv to FLD and if tolerates low fiber diet 2. Cont to educate and encourage patient to eat slow and chew his food very well 3. Consider daily bowel regimen at home of colace and miralax daily given his extensive surgical Hx and issues with recurrent SBOs 4. Ok for d/c from gen surg stance, contact gen surg as needed (3) Dehydration: (4) Atrial fibrillation with RVR: (5) RORY (acute kidney injury): (6) (HFpEF) heart failure with preserved ejection fraction: Qualifiers: Heart failure chronicity: chronic Qualified Code(s): I50.32 - Chronic diastolic (congestive) heart failure (7) Hyponatremia: (8) Hypertension: Qualifiers: Hypertension type: primary hypertension Qualified Code(s): I10 - Essential (primary) hypertension (9) Hypothyroidism: Qualifiers: Hypothyroidism type: unspecified Qualified Code(s): E03.9 - Hypothyroidism, unspecified (10) HLD (hyperlipidemia): Qualifiers: Hyperlipidemia type: unspecified Qualified Code(s): E78.5 - Hyperlipidemia, unspecified (11) Hypotension due to hypovolemia: Subjective Subjective Interval history: Patient doing well this am. Denies any f/c, n/v. sob or chest pain. No abdominal pain. Having bowel movements and tolerating PO intake. Exam Narrative Exam Narrative: General: awake, alert, no distress Head: normocephalic, atraumatic Neck: supple, no tracheal deviation Heart: RRR Lungs: equal chest rise and fall, non labored breathing Abdomen: soft, non tender, no rebound or guarding Extremities: no lesions, grossly normal Skin: intact, no cyanosis Psychological: no apparent speech or mood disorder, appropriate for encounter Constitutional Vital Signs, click to edit/add: Last Vital Signs Temp 97.8 F 07/01/24 06:04 Pulse 70 07/01/24 08:00 Resp 16 07/01/24 06:04 BP 100/64 07/01/24 06:04 Pulse Ox 99 07/01/24 10:40 O2 Del Method Room Air 07/01/24 10:40
--- NOTE | 2024-07-05 13:56 | CM.DCFOLLOWU ---
1st attempt 07/05/24, no answer
--- NOTE | 2024-07-06 12:54 | CM.DCFOLLOWU ---
2nd attempt 07/06/24, no answer
--- NOTE | 2024-07-07 10:39 | CM.DCFOLLOWU ---
3rd attempt 07/07/24, no answer
== END 2024-07-01 14:58 | disposition home or self-care (01) | DRG 389 ==
LOC: ER 16:05 → ICU 17:32 → MS 06-30 21:49
PROVIDERS: Registered Nurse; Admitting Provider Internal Medicine; Emergency Provider Emergency Medicine; Visit Provider Internal Medicine
DX: K56.609 Unspecified intestinal obstruction, unspecified as to partial versus complete obstruction (principal); E87.1 Hypo-osmolality and hyponatremia; N17.9 Acute kidney failure, unspecified; I50.32 Chronic diastolic (congestive) heart failure; I48.21 Permanent atrial fibrillation; K31.84 Gastroparesis; E86.0 Dehydration; I11.0 Hypertensive heart disease with heart failure; I95.89 Other hypotension; E03.9 Hypothyroidism, unspecified; E78.5 Hyperlipidemia, unspecified; Z79.01 Long term (current) use of anticoagulants; Z79.890 Hormone replacement therapy; Z79.899 Other long term (current) drug therapy; Z88.8 Allergy status to other drugs, medicaments and biological substances; Z87.891 Personal history of nicotine dependence
CPT/HCPCS: 36415; 51798; 71045; 74022; 74176; 74250; 80048; 80053; 83690; 83735; 84484; 85025; 85610; 87804; 87811; 93005; 94761; 96365; 97161; 97165; 97530; 97535; 99285; J1160; J2250; J2765; Q9963

== ENCOUNTER 2024-09-13 12:33 | Emergency (ER) | payer MEDICARE, SELFPAY ==
[2024-09-13 12:41] VITALS: BP 90/76; PULSE 126; TEMP 36.8; O2SAT 98; BMI 21.4
--- OUTSIDE RECORDS SUMMARY | 2024-09-13 12:47 | XMS_ITS | CCD ---
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 Name Role Phone Yvse Sanford Unavailable MD Ivan Lopez Primary Care Provider BERNADINE Rivero Emergency Provider RONALD, DR ACEVEDO Primary Care Unavailable KEITH OLIVEIRA Admitting Unavailable KEITH OLIVEIRA Attending Unavailable KEITH OLIVEIRA Consulting Unavailable DORIAN YODER Consulting Unavailable BROOK ., DR OLSON Consulting Unavailable DORIAN SOARES Consulting Unavailable JOZEF SANDERS Consulting Unavailable MILAGROS MIXON Consulting Unavailable RONALD, DR ACEVEDO Primary Care Unavailable KEITH OLIVEIRA Admitting Unavailable KEITH OLIVEIRA Attending Unavailable DEBRA OLIVEIRALAS Consulting Unavailable DORIAN YODER Consulting Unavailable HAY ., DR FLORES Consulting Unavailable SCARLET RUSSELL [...] Admitting Unavailable Ivan Lopez Primary Care Unavailable YANA RUEDA Referring Unavailable YANA RUEDA Primary Care Unavailable YANA RUEDA Referring Unavailable YANA RUEDA Primary Care Unavailable YANA RUEDA Referring Unavailable YANA RUEDA Primary Care Unavailable Allergies Allergy Classification Reported Allergen(s) Allergy Type Date of Onset Reaction(s) Facility (2 sources) Ondansetron; Translations: [ondansetron] Drug Allergy 01-10-2023 [facility] (1 source) Ondansetron Drug Allergy 11-19-2022 [facility] Rep[facility] Medications Current Medications Medication [...] Onset: 02-11-2023 Episodic Other aftercare (1 source) jail (current) use of anticoagulants; Translations: [MEDICINAL CHEMIST CURRNT USE ANTICOAGULANTS] Onset: 02-11-2023 Episodic Other aftercare (1 source) Other longterm (current) drug therapy; Translations: [OTH ASSISTED CURRENT DRUG THERAPY] Onset: 02-11-2023 Episodic Other [...] DIGESTV TRACT] Onset: 02-21-2022 Resolved: 02-21-2022 Episodic Residual codes; unclassified (1 source) Pain, unspecified; Translations: [Pain, unspecified] Onset: 07-06-2024 Episodic Screening and history of mental health [...] Facil ity Lab Reportson 03-17-2023 Lab Reports [id number] Normal [facility] STOOL CULTUREon 11-26-2022 Campylobacter Culture Final report Normal [facility] Comment on above: Performed By: #### C XSTOOL #### [facility] [address] [place] [address] Dr. Itzel Lerma E coli Shiga Toxin EIA Negative Normal Negative [facility] Comment on above: Performed By: #### C XSTOOL #### [facility] [address] [place] [address] Dr. Itzel Lerma Result 1 Comment Normal [facility] Comment on above: Result Comment: No S almonella or Shigella recovered. Performed By: #### C XSTOOL #### [facility] [address] [address] [address] Itzel Lerma Result Comment: No C ampylobacter species isolated. Salmonella/Shigella Screen Final report Normal [facility] Comment on above: Performed By: #### C XSTOOL #### [facility] [address] [address] [address] Itzel Lerma BNPon 11-24-2022 Natriuretic peptide B (Bld) [Mass/Vol] 1615.0 pg/mL Normal <=1,800.0 [facility] Comment on above: Performed By: #### O JESSE #### [facility] [address] [place] [address] Dr. Itzel Lerma CBC AUTO DIFFon 11-24-2022 BASO # 0.0 103/ul Normal 0.0-0.1 [facility] Comment on above: Performed By: #### C XSTOOL #### [facility] [address] [place] [address] Dr. Itzel Lerma Basophils/100 WBC (Bld) 0.5 % Normal 0.2-2.0 [facility] Comment on above: Performed By: #### C XSTOOL #### [facility] [address] [place] [address] Dr. Itzel Lerma EO # 0.1 103/ul Normal 0.0-0.7 [facility] Comment on above: Performed By: #### C XSTOOL #### [facility] [address] [place] [address] Dr. Itzel Lerma Eosinophils/100 WBC (Bld) 1.4 % Normal 0.9-7.0 [facility] Comment on above: Performed By: #### C XSTOOL #### [facility] [address] [place] [address] Dr. Itzel Lerma Erythrocyte distribution width (RBC) [Ratio] 16.1 % Critically high 11.0-15.0 [facility] Comment on above: Performed By: #### C XSTOOL #### [facility] [address] [place] [address] Dr. Itzel Lerma Hematocrit (Bld) [Volume fraction] 44.1 % Normal 42.0-54.0 [facility] Comment on above: Performed By: #### C XSTOOL #### [facility] [address] [place] [address] Dr. Itzel Lerma Hemoglobin (Bld) [Mass/Vol] 13.9 g/dL Critically low 14.0-18.0 [facility] Comment on above: Performed By: #### C XSTOOL #### [facility] [address] [place] [address] Dr. Itzel Lerma IG # 0.03 10e3/ul Normal 0.00-0.03 [facility] Comment on above: Performed By: #### C XSTOOL #### [facility] [address] [place] [address] Dr. Itzel Lerma IG % 0.5 % Normal 0.0-0.5 [facility] Comment on above: Performed By: #### C XSTOOL #### [facility] [address] [address] [address] Itzel Lerma LYMPH # 0.9 103/ul Critically low 1.2-3.[address] [facility] Comment on above: Performed By: #### C XSTOOL #### [facility] [address] [place] [address] Dr. Itzel Lerma Lymphocytes/100 WBC (Bld) 14.4 % Critically low 20.5-60.0 [facility] Comment on above: Performed By: #### C XSTOOL #### [facility] [address] [place] [address] Dr. Itzel Lerma MANUAL DIFF REQ NO Normal [facility] Comment on above: Performed By: #### C XSTOOL #### [facility] [address] [place] [address] Dr. Itzel Lerma MCH (RBC) [Entitic mass] 27.5 pg Normal 25.9-34.0 [facility] Comment on above: Performed By: #### C XSTOOL #### [facility] [address] [place] [address] Dr. Itzel Lerma MCHC (RBC) [Mass/Vol] 31.5 g/dL Normal 29.9-35.2 [facility] Comment on above: Performed By: #### C XSTOOL #### [facility] [address] [place] [address] Dr. Itzel Lerma MCV (RBC) [Entitic vol] 87.3 fL Normal 80.0-94.0 [facility] Comment on above: Performed By: #### C XSTOOL #### [facility] [address] [place] [address] Dr. Itzel Lerma MONO # 0.7 103/ul Normal 0.3-0.8 [facility] Comment on above: Performed By: #### C XSTOOL #### [facility] [address] [place] [address] Dr. Itzel Lerma Monocytes/100 WBC (Bld) 10.6 % Normal 1.7-12.0 [facility] Comment on above: Performed By: #### C XSTOOL #### [facility] [address] [place] [address] Dr. Itzel Lerma NEUT # 4.6 103/ul Normal 1.4-6.5 [facility] Comment on above: Performed By: #### C XSTOOL #### [facility] [address] [place] [address] Dr. Itzel Lerma Neutrophils/100 WBC (Bld) 72.6 % Normal 43.0-75.0 [facility] Comment on above: Performed By: #### C XSTOOL #### [facility] [address] [place] [address] Dr. Itzel Lerma Platelet mean volume (Bld) [Entitic vol] 10.3 fL Normal 9.5-13.5 [facility] Comment on above: Performed By: #### C XSTOOL #### [facility] [address] [place] [address] Dr. Itzel Lerma PLT 279 103/ul Normal 150-450 [facility] Comment on above: Performed By: #### C XSTOOL #### [facility] [address] [place] [address] Dr. Itzel Lerma RBC 5.05 106/ul Normal 4.70-6.10 [facility] Comment on above: Performed By: #### C XSTOOL #### [facility] [address] [place] [address] Dr. Itzel Lerma WBC 6.3 103/ul Normal 4.0-11.0 [facility] Comment on above: Performed By: #### C XSTOOL #### [facility] [address] [place] [address] Dr. Itzel Lerma PROF CHEM 8 (BAS METB)on Anion gap [Moles/Vol] 15.8 mmol/L Normal [facility] Comment on above: Performed By: #### O JESSE #### [facility] [address] [address] [address] Itzel Lerma Calcium [Mass/Vol] 9.1 mg/dL Normal 8.5-10.1 [facility] Comment on above: Performed By: #### O JESSE #### [facility] [address] [address] [address] Itzel Lerma Chloride [Moles/Vol] 102 mmol/L Normal 98-107 [facility] Comment on above: Performed By: #### O JESSE #### [facility] [address] [place] [address] Dr. Itzel Lerma CO2 [Moles/Vol] 19.7 mmol/L Critically low 21.0-32.0 [facility] Comment on above: Performed By: #### O JESSE #### [facility] [address] [place] [address] Dr. Itzel Lerma Creatinine [Mass/Vol] 1.76 mg/dL Critically high 0.70-1.30 [facility] Comment on above: Performed By: #### O JESSE #### [facility] [address] [place] [address] Dr. Itzel Lerma EGFR-AF PANAMANIAN 45 mL/min/1.73m2 Critically low >=60 [facility] Comment on above: Performed By: #### O JESSE #### [facility] [address] [place] [address] Dr. Itzel Lerma EGFR-NON AF PANAMANIAN 37 mL/min/1.73m2 Critically low >=60 [facility] Comment on above: Performed By: #### O JESSE #### [facility] [address] [place] [address] Dr. Itzel Lerma Glucose [Mass/Vol] 139 mg/dL Critically high 74-106 [facility] Comment on above: Performed By: #### O JESSE #### [facility] [address] [place] [address] Dr. Itzel Lerma Potassium [Moles/Vol] 4.5 mmol/L Normal 3.5-5.1 [facility] Comment on above: Performed By: #### O JESSE #### [facility] [address] [place] [address] Dr. Itzel Lerma Sodium [Moles/Vol] 133 mmol/L Critically low 136-145 [facility] Comment on above: Performed By: #### O JESSE #### [facility] [address] [address] [address] Itzel Lerma Urea nitrogen [Mass/Vol] 53.0 mg/dL Critically high 7.0-18.0 [facility] Comment on above: Performed By: #### O JESSE #### [facility] [address] [place] [address] Dr. Itzel Lerma Urea nitrogen/Creatinine [Mass ratio] 30.1 mg/mg Normal [facility] Comment on above: Performed By: #### O JESSE #### [facility] [address] [place] [address] Dr. Itzel Lerma PROTIMEon 11-24-2022 INR Coag (PPP) [Relative time] 3.98 {INR} Normal [facility] Comment on above: Performed By: #### U A #### [facility] [address] [place] [address] Dr. Itzel Lerma INR GUIDELINES SEE BELOW Normal [facility] Comment on above: Result Comment: MIKAL RED INR: 2.0 - 3.0 CONDITIONS NOT LISTED BELOW 2.5 - 3.5 FOR PROSTHETIC HEART VALVE REPLACEMENT 2.5 - 3.5 RECURRENT THROMBOSIS Performed By: #### U A #### [facility] [address] [place] [address] Dr. Itzel Lerma PT Coag (PPP) [Time] 39.0 s Critically high 9.0-11.6 [facility] Comment on above: Performed By: #### U A #### [facility] [address] [place] [address] Dr. Itzel Lerma PTTon 11-24-2022 aPTT Coag (Bld) [Time] 44.8 s Critically high 22.3-36.2 [facility] Comment on above: Performed By: #### U A #### [facility] [address] [address] [address] Itzel Lerma XR KUB 1 VIEWon [...] WILSON JOHN Date: 2022-11-24 07:43 Normal [facility] CBC AUTO DIFFon 11-23-2022 BASO # 0.0 103/ul Normal 0.0-0.1 [facility] Comment on above: Performed By: #### O SMO #### [facility] [address] [place] [address] Dr. Itzel Lerma Basophils/100 WBC (Bld) 0.3 % Normal 0.2-2.0 [facility] Comment on above: Performed By: #### O SMO #### [facility] [address] [place] [address] Dr. Itzel Lerma EO # 0.1 103/ul Normal 0.0-0.7 [facility] Comment on above: Performed By: #### O SMO #### [facility] [address] [address] [address] Itzel Lerma Eosinophils/100 WBC (Bld) 1.6 % Normal 0.9-7.0 [facility] Comment on above: Performed By: #### O SMO #### [facility] [address] [place] [address] Dr. Itzel Lerma Erythrocyte distribution width (RBC) [Ratio] 15.9 % Critically high 11.0-15.0 [facility] Comment on above: Performed By: #### O SMO #### [facility] [address] [address] [address] Itzel Lerma Hematocrit (Bld) [Volume fraction] 42.4 % Normal 42.0-54.0 [facility] Comment on above: Performed By: #### O SMO #### [facility] [address] [address] [address] Itzel Lerma Hemoglobin (Bld) [Mass/Vol] 13.1 g/dL Critically low 14.0-18.0 [facility] Comment on above: Performed By: #### O SMO #### [facility] [address] [address] [address] Itzel Lerma IG # 0.04 10e3/ul Critically high 0.00-0.03 [facility] Comment on above: Performed By: #### O SMO #### [facility] [address] [address] [address] Itzel Lerma IG % 0.7 % Critically high 0.0-0.5 [facility] Comment on above: Performed By: #### O SMO #### [facility] [address] [address] [address] Itzel Lemra LYMPH # 0.9 103/ul Critically low 1.2-3.[address] [facility] Comment on above: Performed By: #### O SMO #### [facility] [address] [address] [address] Itzel Lerma Lymphocytes/100 WBC (Bld) 15.6 % Critically low 20.5-60.0 [facility] Comment on above: Performed By: #### O SMO #### [facility] [address] [address] [address] Itzel Lerma MANUAL DIFF REQ NO Normal [facility] Comment on above: Performed By: #### O SMO #### [facility] [address] [place] [address] Dr. Itzel Lerma MCH (RBC) [Entitic mass] 27.5 pg Normal 25.9-34.0 [facility] Comment on above: Performed By: #### O SMO #### [facility] [address] [address] [address] Itzel Lerma MCHC (RBC) [Mass/Vol] 30.9 g/dL Normal 29.9-35.2 [facility] Comment on above: Performed By: #### O SMO #### [facility] [address] [place] [address] Dr. Itzel Lerma MCV (RBC) [Entitic vol] 88.9 fL Normal 80.0-94.0 [facility] Comment on above: Performed By: #### O SMO #### [facility] [address] [place] [address] Dr. Itzel Lerma MONO # 0.7 103/ul Normal 0.3-0.8 [facility] Comment on above: Performed By: #### O SMO #### [facility] [address] [place] [address] Dr. Itzel Lerma Monocytes/100 WBC (Bld) 12.1 % Critically high 1.7-12.0 [facility] Comment on above: Performed By: #### O SMO #### [facility] [address] [place] [address] Dr. Itzel Lerma NEUT # 4.0 103/ul Normal 1.4-6.5 [facility] Comment on above: Performed By: #### O SMO #### [facility] [address] [place] [address] Dr. Itzel Lerma Neutrophils/100 WBC (Bld) 69.7 % Normal 43.0-75.0 [facility] Comment on above: Performed By: #### O SMO #### [facility] [address] [place] [address] Dr. Itzel Lerma Platelet mean volume (Bld) [Entitic vol] 10.6 fL Normal 9.5-13.5 [facility] Comment on above: Performed By: #### O SMO #### [facility] [address] [place] [address] Dr. Itzel Lerma PLT 200 103/ul Normal 150-450 [facility] Comment on above: Performed By: #### O SMO #### [facility] [address] [address] [address] Itzel Lerma RBC 4.77 106/ul Normal 4.70-6.10 [facility] Comment on above: Performed By: #### O SMO #### [facility] [address] [place] [address] Dr. Itzel Lerma WBC 5.8 103/ul Normal 4.0-11.0 [facility] Comment on above: Performed By: #### O SMO #### [facility] [address] [place] [address] Dr. Itzel Lerma PROF CHEM 8 (BAS METB)on Anion gap [Moles/Vol] 14.3 mmol/L Normal [facility] Comment on above: Performed By: #### O SMO #### [facility] [address] [place] [address] Dr. Itzel Lerma Calcium [Mass/Vol] 9.1 mg/dL Normal 8.5-10.1 [facility] Comment on above: Performed By: #### O SMO #### [facility] [address] [place] [address] Dr. Itzel Lerma Chloride [Moles/Vol] 102 mmol/L Normal 98-107 [facility] Comment on above: Performed By: #### O SMO #### [facility] [address] [place] [address] Dr. Itzel Lerma CO2 [Moles/Vol] 21.4 mmol/L Normal 21.0-32.0 [facility] Comment on above: Performed By: #### O SMO #### [facility] [address] [place] [address] Dr. Itzel Lerma Creatinine [Mass/Vol] 1.58 mg/dL Critically high 0.70-1.30 [facility] Comment on above: Performed By: #### O SMO #### [facility] [address] [place] [address] Dr. Itzel Lerma EGFR-AF PANAMANIAN 51 mL/min/1.73m2 Critically low >=60 [facility] Comment on above: Performed By: #### O SMO #### [facility] [address] [address] [address] Itzel Lerma EGFR-NON AF PANAMANIAN 42 mL/min/1.73m2 Critically low >=60 [facility] Comment on above: Performed By: #### O SMO #### [facility] [address] [address] [address] Itzel Lerma Glucose [Mass/Vol] 125 mg/dL Critically high 74-106 [facility] Comment on above: Performed By: #### O SMO #### [facility] [address] [address] [address] Itzel Lerma Potassium [Moles/Vol] 4.7 mmol/L Normal 3.5-5.1 [facility] Comment on above: Performed By: #### O SMO #### [facility] [address] [address] [address] Itzel Lerma Sodium [Moles/Vol] 133 mmol/L Critically low 136-145 [facility] Comment on above: Performed By: #### O SMO #### [facility] [address] [address] [address] Itzel Lerma Urea nitrogen [Mass/Vol] 45.0 mg/dL Critically high 7.0-18.0 [facility] Comment on above: Performed By: #### O SMO #### [facility] [address] [address] [address] Itzel Lerma Urea nitrogen/Creatinine [Mass ratio] 28.5 mg/mg Normal [facility] Comment on above: Performed By: #### O SMO #### [facility] [address] [address] [address] Itzel Lerma PROTIMEon 11-23-2022 INR Coag (PPP) [Relative time] 4.89 {INR} Critically high [facility] Comment on above: Performed By: #### P T #### [facility] [address] [address] [address] Itzel Lerma INR GUIDELINES SEE BELOW Normal [facility] Comment on above: Result Comment: MIKAL RED INR: 2.0 - 3.0 CONDITIONS NOT LISTED BELOW 2.5 - 3.5 FOR PROSTHETIC HEART VALVE REPLACEMENT 2.5 - 3.5 RECURRENT THROMBOSIS Performed By: #### P T #### [facility] [address] [place] [address] Dr. Itzel Lerma PT Coag (PPP) [Time] 47.4 s Critically high 9.0-11.6 [facility] Comment on above: Performed By: #### P T #### [facility] [address] [place] [address] Dr. Itzel Lerma CBC AUTO DIFFon 11-22-2022 BASO # 0.0 103/ul Normal 0.0-0.1 [facility] Comment on above: Performed By: #### C BC #### [facility] [address] [place] [address] Dr. Itzel Lerma Basophils/100 WBC (Bld) 0.4 % Normal 0.2-2.0 [facility] Comment on above: Performed By: #### C BC #### [facility] [address] [place] [address] Dr. Itzel Lerma EO # 0.1 103/ul Normal 0.0-0.7 [facility] Comment on above: Performed By: #### C BC #### [facility] [address] [place] [address] Dr. Itzel Lerma Eosinophils/100 WBC (Bld) 1.4 % Normal 0.9-7.0 [facility] Comment on above: Performed By: #### C BC #### [facility] [address] [place] [address] Dr. Itzel Lerma Erythrocyte distribution width (RBC) [Ratio] 16.3 % Critically high 11.0-15.0 [facility] Comment on above: Performed By: #### C BC #### [facility] [address] [place] [address] Dr. Itzel Lerma Hematocrit (Bld) [Volume fraction] 41.1 % Critically low 42.0-54.0 [facility] Comment on above: Performed By: #### C BC #### [facility] [address] [place] [address] Dr. Itzel Lerma Hemoglobin (Bld) [Mass/Vol] 12.5 g/dL Critically low 14.0-18.0 [facility] Comment on above: Performed By: #### C BC #### [facility] [address] [place] [address] Dr. Itzel Lerma IG # 0.03 10e3/ul Normal 0.00-0.03 [facility] Comment on above: Performed By: #### C BC #### [facility] [address] [place] [address] Dr. Itzel Lerma IG % 0.4 % Normal 0.0-0.5 [facility] Comment on above: Performed By: #### C BC #### [facility] [address] [place] [address] Dr. Itzel Lerma LYMPH # 1.0 103/ul Critically low 1.2-3.[address] [facility] Comment on above: Performed By: #### C BC #### [facility] [address] [place] [address] Dr. Itzel Lerma Lymphocytes/100 WBC (Bld) 14.3 % Critically low 20.5-60.0 [facility] Comment on above: Performed By: #### C BC #### [facility] [address] [place] [address] Dr. Itzel Lerma MANUAL DIFF REQ NO Normal [facility] Comment on above: Performed By: #### C BC #### [facility] [address] [place] [address] Dr. Itzel Lerma MCH (RBC) [Entitic mass] 27.4 pg Normal 25.9-34.0 [facility] Comment on above: Performed By: #### C BC #### [facility] [address] [place] [address] Dr. Itzel Lerma MCHC (RBC) [Mass/Vol] 30.4 g/dL Normal 29.9-35.2 [facility] Comment on above: Performed By: #### C BC #### [facility] [address] [place] [address] Dr. Itzel Lerma MCV (RBC) [Entitic vol] 89.9 fL Normal 80.0-94.0 [facility] Comment on above: Performed By: #### C BC #### [facility] [address] [place] [address] Dr. Itzel Lerma MONO # 0.8 103/ul Normal 0.3-0.8 [facility] Comment on above: Performed By: #### C BC #### [facility] [address] [place] [address] Dr. Itzel Lerma Monocytes/100 WBC (Bld) 11.1 % Normal 1.7-12.0 [facility] Comment on above: Performed By: #### C BC #### [facility] [address] [place] [address] Dr. Itzel Lerma NEUT # 5.2 103/ul Normal 1.4-6.5 [facility] Comment on above: Performed By: #### C BC #### [facility] [address] [place] [address] Dr. Itzel Lerma Neutrophils/100 WBC (Bld) 72.4 % Normal 43.0-75.0 [facility] Comment on above: Performed By: #### C BC #### [facility] [address] [place] [address] Dr. Itzel Lerma Platelet mean volume (Bld) [Entitic vol] 10.1 fL Normal 9.5-13.5 [facility] Comment on above: Performed By: #### C BC #### [facility] [address] [place] [address] Dr. Itzel Lerma PLT 210 103/ul Normal 150-450 [facility] Comment on above: Performed By: #### C BC #### [facility] [facility] [address] [place] [address] Dr. Itzel Lerma RBC 4.57 106/ul Critically low 4.70-6.10 [facility] Comment on above: Performed By: #### C BC #### [facility] [address] [place] [address] Dr. Itzel Lerma WBC 7.2 103/ul Normal 4.0-11.0 [facility] Comment on above: Performed By: #### C BC #### [facility] [address] [address] [address] Itzel Lerma PROF CHEM 8 (BAS METB)on Anion gap [Moles/Vol] 13.8 mmol/L Normal [facility] Comment on above: Performed By: #### O SMO #### [facility] [address] [place] [address] Dr. Itzel Lerma Calcium [Mass/Vol] 8.7 mg/dL Normal 8.5-10.1 [facility] Comment on above: Performed By: #### O SMO #### [facility] [address] [place] [address] Dr. Itzel Lerma Chloride [Moles/Vol] 102 mmol/L Normal 98-107 [facility] Comment on above: Performed By: #### O SMO #### [facility] [address] [place] [address] Dr. Itzel Lerma CO2 [Moles/Vol] 20.6 mmol/L Critically low 21.0-32.0 [facility] Comment on above: Performed By: #### O SMO #### [facility] [address] [place] [address] Dr. Itzel Lerma Creatinine [Mass/Vol] 1.49 mg/dL Critically high 0.70-1.30 [facility] Comment on above: Performed By: #### O SMO #### [facility] [address] [place] [address] Dr. Itzel Lerma EGFR-AF PANAMANIAN 55 mL/min/1.73m2 Critically low >=60 [facility] Comment on above: Performed By: #### O SMO #### [facility] [address] [place] [address] Dr. Itzel Lerma EGFR-NON AF PANAMANIAN 45 mL/min/1.73m2 Critically low >=60 [facility] Comment on above: Performed By: #### O SMO #### [facility] [address] [place] [address] Dr. Itzel Lerma Glucose [Mass/Vol] 105 mg/dL Normal 74-106 [facility] Comment on above: Performed By: #### O SMO #### [facility] [address] [address] [address] Itzel Lerma Potassium [Moles/Vol] 4.4 mmol/L Normal 3.5-5.1 [facility] Comment on above: Performed By: #### O SMO #### [facility] [address] [address] [address] Itzel Lerma Sodium [Moles/Vol] 132 mmol/L Critically low 136-145 [facility] Comment on above: Performed By: #### O SMO #### [facility] [address] [address] [address] Itzel Lerma Urea nitrogen [Mass/Vol] 47.0 mg/dL Critically high 7.0-18.0 [facility] Comment on above: Performed By: #### O SMO #### [facility] [address] [place] [address] Dr. Itzel Lerma Urea nitrogen/Creatinine [Mass ratio] 31.5 mg/mg Normal [facility] Comment on above: Performed By: #### O SMO #### [facility] [address] [place] [address] Dr. Itzel Lerma PROTIMEon 11-22-2022 INR Coag (PPP) [Relative time] 5.94 {INR} Critically high [facility] Comment on above: Performed By: #### C BC #### [facility] [address] [place] [address] Dr. Itzel Lerma INR GUIDELINES SEE BELOW Normal [facility] Comment on above: Result Comment: MIKAL RED INR: 2.0 - 3.0 CONDITIONS NOT LISTED BELOW 2.5 - 3.5 FOR PROSTHETIC HEART VALVE REPLACEMENT 2.5 - 3.5 RECURRENT THROMBOSIS Performed By: #### C BC #### [facility] [address] [place] [address] Dr. Itzel Lerma PT Coag (PPP) [Time] 56.9 s Critically high 9.0-11.6 [facility] Comment on above: Performed By: #### C BC #### [facility] [address] [place] [address] Dr. Itzel Lerma XR KUB 1 VIEWon [...] DORIAN YODER Date: 2022-11-22 08:06 Normal [facility] CBC AUTO DIFFon 11-21-2022 BASO # 0.0 103/ul Normal 0.0-0.1 [facility] Comment on above: Performed By: #### O JESSE #### [facility] [address] [place] [address] Dr. Itzel Lerma Basophils/100 WBC (Bld) 0.1 % Critically low 0.2-2.0 [facility] Comment on above: Performed By: #### O JESSE #### [facility] [address] [place] [address] Dr. Itzel Lerma EO # 0.1 103/ul Normal 0.0-0.7 [facility] Comment on above: Performed By: #### O JESSE #### [facility] [address] [place] [address] Dr. Itzel Lerma Eosinophils/100 WBC (Bld) 1.5 % Normal 0.9-7.0 [facility] Comment on above: Performed By: #### O JESSE #### [facility] [address] [place] [address] Dr. Itzel Lerma Erythrocyte distribution width (RBC) [Ratio] 16.3 % Critically high 11.0-15.0 [facility] Comment on above: Performed By: #### O JESSE #### [facility] [address] [place] [address] Dr. Itzel Lerma Hematocrit (Bld) [Volume fraction] 42.6 % Normal 42.0-54.0 [facility] Comment on above: Performed By: #### O JESSE #### [facility] [address] [place] [address] Dr. Itzel Lerma Hemoglobin (Bld) [Mass/Vol] 13.3 g/dL Critically low 14.0-18.0 [facility] Comment on above: Performed By: #### O JESSE #### [facility] [address] [place] [address] Dr. Itzel Lerma IG # 0.02 10e3/ul Normal 0.00-0.03 [facility] Comment on above: Performed By: #### O JESES #### [facility] [address] [place] [address] Dr. Itzel Lerma IG % 0.2 % Normal 0.0-0.5 [facility] Comment on above: Performed By: #### O JESSE #### [facility] [address] [place] [address] Dr. Itzel Lerma LYMPH # 1.0 103/ul Critically low 1.2-3.[address] [facility] Comment on above: Performed By: #### O JESSE #### [facility] [address] [place] [address] Dr. Itzel Lerma Lymphocytes/100 WBC (Bld) 12.5 % Critically low 20.5-60.0 [facility] Comment on above: Performed By: #### O JESSE #### [facility] [address] [place] [address] Dr. Itzel Lerma MANUAL DIFF REQ NO Normal [facility] Comment on above: Performed By: #### O JESSE #### [facility] [address] [place] [address] Dr. Itzel Lerma MCH (RBC) [Entitic mass] 27.8 pg Normal 25.9-34.0 [facility] Comment on above: Performed By: #### O JESSE #### [facility] [address] [place] [address] Dr. Itzel Lerma MCHC (RBC) [Mass/Vol] 31.2 g/dL Normal 29.9-35.2 [facility] Comment on above: Performed By: #### O JESSE #### [facility] [address] [place] [address] Dr. Itzel Lerma MCV (RBC) [Entitic vol] 88.9 fL Normal 80.0-94.0 [facility] Comment on above: Performed By: #### O JESSE #### [facility] [address] [place] [address] Dr. Itzel Lerma MONO # 0.9 103/ul Critically high 0.3-0.8 [facility] Comment on above: Performed By: #### O JESSE #### [facility] [address] [place] [address] Dr. Itzel Lerma Monocytes/100 WBC (Bld) 10.6 % Normal 1.7-12.0 [facility] Comment on above: Performed By: #### O JESSE #### [facility] [address] [place] [address] Dr. Itzel Lerma NEUT # 6.1 103/ul Normal 1.4-6.5 [facility] Comment on above: Performed By: #### O JESSE #### [facility] [address] [place] [address] Dr. Itzel Lerma Neutrophils/100 WBC (Bld) 75.1 % Critically high 43.0-75.0 [facility] Comment on above: Performed By: #### O JESSE #### [facility] [address] [place] [address] Dr. Itzel Lerma Platelet mean volume (Bld) [Entitic vol] 9.9 fL Normal 9.5-13.5 [facility] Comment on above: Performed By: #### O JESSE #### [facility] [address] [place] [address] Dr. Itzel Lerma PLT 239 103/ul Normal 150-450 [facility] Comment on above: Performed By: #### O JESSE #### [facility] [address] [place] [address] Dr. Itzel Lerma RBC 4.79 106/ul Normal 4.70-6.10 [facility] Comment on above: Performed By: #### O JESSE #### [facility] [address] [address] [address] Itzel Lerma WBC 8.1 103/ul Normal 4.0-11.0 [facility] Comment on above: Performed By: #### O JESSE #### [facility] [address] [place] [address] Dr. Itzel Lerma PROF CHEM 8 (BAS METB)on Anion gap [Moles/Vol] 15.4 mmol/L Normal [facility] Comment on above: Performed By: #### U A #### [facility] [address] [place] [address] Dr. Itzel Lerma Calcium [Mass/Vol] 8.9 mg/dL Normal 8.5-10.1 [facility] Comment on above: Performed By: #### U A #### [facility] [address] [place] [address] Dr. Itzel Lerma Chloride [Moles/Vol] 102 mmol/L Normal 98-107 [facility] Comment on above: Performed By: #### U A #### [facility] [address] [place] [address] Dr. Itzel Lerma CO2 [Moles/Vol] 18.7 mmol/L Critically low 21.0-32.0 [facility] Comment on above: Performed By: #### U A #### [facility] [address] [place] [address] Dr. Itzel Lerma Creatinine [Mass/Vol] 1.47 mg/dL Critically high 0.70-1.30 [facility] Comment on above: Performed By: #### U A #### [facility] [address] [place] [address] Dr. Itzel Lerma EGFR-AF PANAMANIAN 56 mL/min/1.73m2 Critically low >=60 [facility] Comment on above: Performed By: #### U A #### [facility] [address] [place] [address] Dr. Itzel Lerma EGFR-NON AF PANAMANIAN 46 mL/min/1.73m2 Critically low >=60 [facility] Comment on above: Performed By: #### U A #### [facility] [address] [address] [address] Itzel Lerma Glucose [Mass/Vol] 103 mg/dL Normal 74-106 [facility] Comment on above: Performed By: #### U A #### [facility] [id number] Itzel Lerma Potassium [Moles/Vol] 4.1 mmol/L Normal 3.5-5.1 [facility] Comment on above: Performed By: #### U A #### [facility] [address] [address] [address] Itzel Lerma Sodium [Moles/Vol] 132 mmol/L Critically low 136-145 [facility] Comment on above: Performed By: #### U A #### [facility] [address] [address] [address] Itzel Lerma Urea nitrogen [Mass/Vol] 47.0 mg/dL Critically high 7.0-18.0 [facility] Comment on above: Performed By: #### U A #### [facility] [address] [place] [address] Dr. Itzel Lerma Urea nitrogen/Creatinine [Mass ratio] 32.0 mg/mg Normal [facility] Comment on above: Performed By: #### U A #### [facility] [address] [place] [address] Dr. Itzel Lerma XR KUB 1 VIEWon [...] DORIAN YODER Date: 2022-11-21 08:08 Normal [facility] CBC AUTO DIFFon 11-20-2022 BASO # 0.0 103/ul Normal 0.0-0.1 [facility] Comment on above: Performed By: #### O SMO #### [facility] [address] [address] [address] Itzel Lerma Basophils/100 WBC (Bld) 0.3 % Normal 0.2-2.0 [facility] Comment on above: Performed By: #### O SMO #### [facility] [address] [address] [address] Itzel Lerma EO # 0.1 103/ul Normal 0.0-0.7 [facility] Comment on above: Performed By: #### O SMO #### [facility] [address] [place] [address] Dr. Itzel Lerma Eosinophils/100 WBC (Bld) 0.8 % Critically low 0.9-7.0 [facility] Comment on above: Performed By: #### O SMO #### [facility] [address] [address] [address] Itzel Lerma Erythrocyte distribution width (RBC) [Ratio] 16.2 % Critically high 11.0-15.0 [facility] Comment on above: Performed By: #### O SMO #### [facility] [address] [place] [address] Dr. Itzel Lerma Hematocrit (Bld) [Volume fraction] 46.2 % Normal 42.0-54.0 [facility] Comment on above: Performed By: #### O SMO #### [facility] [address] [address] [address] Itzel Lerma Hemoglobin (Bld) [Mass/Vol] 14.2 g/dL Normal 14.0-18.0 [facility] Comment on above: Performed By: #### O SMO #### [facility] [address] [address] [address] Itzel Lerma IG # 0.04 10e3/ul Critically high 0.00-0.03 [facility] Comment on above: Performed By: #### O SMO #### [facility] [address] [place] [address] Dr. Itzel Lerma IG % 0.3 % Normal 0.0-0.5 [facility] Comment on above: Performed By: #### O SMO #### [facility] [address] [place] [address] Dr. Itzel Lerma LYMPH # 1.3 103/ul Normal 1.2-3.8 [facility] Comment on above: Performed By: #### O SMO #### [facility] [address] [place] [address] Dr. Itzel Lerma Lymphocytes/100 WBC (Bld) 10.4 % Critically low 20.5-60.0 [facility] Comment on above: Performed By: #### O SMO #### [facility] [address] [place] [address] Dr. Itzel Lerma MANUAL DIFF REQ NO Normal [facility] Comment on above: Performed By: #### O SMO #### [facility] [address] [place] [address] Dr. Itzel Lerma MCH (RBC) [Entitic mass] 27.6 pg Normal 25.9-34.0 [facility] Comment on above: Performed By: #### O SMO #### [facility] [address] [place] [address] Dr. Itzel Lerma MCHC (RBC) [Mass/Vol] 30.7 g/dL Normal 29.9-35.2 [facility] Comment on above: Performed By: #### O SMO #### [facility] [address] [place] [address] Dr. Itzel Lrema MCV (RBC) [Entitic vol] 89.9 fL Normal 80.0-94.0 [facility] Comment on above: Performed By: #### O SMO #### [facility] [address] [place] [address] Dr. Itzel Lerma MONO # 1.1 103/ul Critically high 0.3-0.8 [facility] Comment on above: Performed By: #### O SMO #### [facility] [address] [address] [address] Itzel Lerma Monocytes/100 WBC (Bld) 9.5 % Normal 1.7-12.0 [facility] Comment on above: Performed By: #### O SMO #### [facility] [address] [address] [address] Itzel Lerma NEUT # 9.5 103/ul Critically high 1.4-6.5 [facility] Comment on above: Performed By: #### O SMO #### [facility] [address] [address] [address] Itzel Lerma Neutrophils/100 WBC (Bld) 78.7 % Critically high 43.0-75.0 [facility] Comment on above: Performed By: #### O SMO #### [facility] [address] [place] [address] Dr. Itzel Lerma Platelet mean volume (Bld) [Entitic vol] 9.6 fL Normal 9.5-13.5 [facility] Comment on above: Performed By: #### O SMO #### [facility] [address] [place] [address] Dr. Itzel Lerma PLT 280 103/ul Normal 150-450 [facility] Comment on above: Performed By: #### O SMO #### [facility] [address] [place] [address] Dr. Itzel Lerma RBC 5.14 106/ul Normal 4.70-6.10 [facility] Comment on above: Performed By: #### O SMO #### [facility] [address] [place] [address] Dr. Itzel Lerma WBC 12.0 103/ul Critically high 4.0-11.0 [facility] Comment on above: Performed By: #### O SMO #### [facility] [address] [place] [address] Dr. Itzel Lerma LACTATE/LACTIC ACIDon 2022 Lactate [Moles/Vol] 0.9 mmol/L Normal 0.4-1.9 [facility] Comment on above: Performed By: #### C BC #### [facility] [address] [address] [address] Itzel Lerma PROF CHEM 8 (BAS METB)on Anion gap [Moles/Vol] 14.9 mmol/L Normal [facility] Comment on above: Performed By: #### B MP #### [facility] [address] [address] [address] Itzel Lerma Calcium [Mass/Vol] 9.7 mg/dL Normal 8.5-10.1 [facility] Comment on above: Performed By: #### B MP #### [facility] [address] [address] [address] Itzel Lerma Chloride [Moles/Vol] 99 mmol/L Normal 98-107 [facility] Comment on above: Performed By: #### B MP #### [facility] [address] [address] [address] Itzel Lerma CO2 [Moles/Vol] 22.7 mmol/L Normal 21.0-32.0 [facility] Comment on above: Performed By: #### B MP #### [facility] [address] [address] [address] Itzel Lerma Creatinine [Mass/Vol] 2.07 mg/dL Critically high 0.70-1.30 [facility] Comment on above: Performed By: #### B MP #### [facility] [address] [address] [address] Itzel Lerma EGFR-AF PANAMANIAN 38 mL/min/1.73m2 Critically low >=60 [facility] Comment on above: Performed By: #### B MP #### [facility] [address] [address] [address] Itzel Lerma EGFR-NON AF PANAMANIAN 31 mL/min/1.73m2 Critically low >=60 [facility] Comment on above: Performed By: #### B MP #### [facility] [address] [address] [address] Itzel Lerma Glucose [Mass/Vol] 144 mg/dL Critically high 74-106 [facility] Comment on above: Performed By: #### B MP #### [facility] [address] [address] [address] Itzel Lerma Potassium [Moles/Vol] 4.6 mmol/L Normal 3.5-5.1 [facility] Comment on above: Performed By: #### B MP #### [facility] [address] [address] [address] Itzel Lerma Sodium [Moles/Vol] 132 mmol/L Critically low 136-145 [facility] Comment on above: Performed By: #### B MP #### [facility] [address] [place] [address] Dr. Itzel Lerma Urea nitrogen [Mass/Vol] 52.0 mg/dL Critically high 7.0-18.0 [facility] Comment on above: Performed By: #### B MP #### [facility] [address] [place] [address] Dr. Itzel Lerma Urea nitrogen/Creatinine [Mass ratio] 25.1 mg/mg Normal [facility] Comment on above: Performed By: #### B MP #### [facility] [address] [place] [address] Dr. Itzel Lerma PROTIMEon 11-20-2022 INR Coag (PPP) [Relative time] 2.54 {INR} Normal [facility] Comment on above: Performed By: #### C BC #### [facility] [address] [place] [address] Dr. Itzel Lerma INR GUIDELINES SEE BELOW Normal [facility] Comment on above: Result Comment: MIKAL RED INR: 2.0 - 3.0 CONDITIONS NOT LISTED BELOW 2.5 - 3.5 FOR PROSTHETIC HEART VALVE REPLACEMENT 2.5 - 3.5 RECURRENT THROMBOSIS Performed By: #### C BC #### [facility] [address] [place] [address] Dr. Itzel Lerma PT Coag (PPP) [Time] 25.5 s Critically high 9.0-11.6 [facility] Comment on above: Performed By: #### C BC #### [facility] [address] [place] [address] Dr. Itzel Lerma XR KUB 1 VIEWon [...] DORIAN YODER Date: 2022-11-20 10:52 Normal [facility] CBC AUTO DIFFon 11-19-2022 BASO # 0.0 103/ul Normal 0.0-0.1 [facility] Comment on above: Performed By: #### O SMO #### [facility] [address] [address] [address] Itzel Lerma Basophils/100 WBC (Bld) 0.2 % Normal 0.2-2.0 [facility] Comment on above: Performed By: #### O SMO #### [facility] [address] [place] [address] Dr. Itzel Lerma EO # 0.1 103/ul Normal 0.0-0.7 [facility] Comment on above: Performed By: #### O SMO #### [facility] [address] [address] [address] Itzel Lerma Eosinophils/100 WBC (Bld) 1.1 % Normal 0.9-7.0 [facility] Comment on above: Performed By: #### O SMO #### [facility] [address] [address] [address] Itzel Lerma Erythrocyte distribution width (RBC) [Ratio] 16.3 % Critically high 11.0-15.0 [facility] Comment on above: Performed By: #### O SMO #### [facility] [address] [address] [address] Itzel Lerma Hematocrit (Bld) [Volume fraction] 47.9 % Normal 42.0-54.0 [facility] Comment on above: Performed By: #### O SMO #### [facility] [address] [place] [address] Dr. Itzel Lerma Hemoglobin (Bld) [Mass/Vol] 14.7 g/dL Normal 14.0-18.0 [facility] Comment on above: Performed By: #### O SMO #### [facility] [address] [place] [address] Dr. Itzel Lerma IG # 0.04 10e3/ul Critically high 0.00-0.03 [facility] Comment on above: Performed By: #### O SMO #### [facility] [address] [place] [address] Dr. Itzel Lerma IG % 0.4 % Normal 0.0-0.5 [facility] Comment on above: Performed By: #### O SMO #### [facility] [address] [place] [address] Dr. Itzel Lerma LYMPH # 0.9 103/ul Critically low 1.2-3.8 [facility] Comment on above: Performed By: #### O SMO #### [facility] [address] [place] [address] Dr. Itzel Lerma Lymphocytes/100 WBC (Bld) 9.7 % Critically low 20.5-60.0 [facility] Comment on above: Performed By: #### O SMO #### [facility] [address] [place] [address] Dr. Itzel Lerma MANUAL DIFF REQ NO Normal [facility] Comment on above: Performed By: #### O SMO #### [facility] [address] [place] [address] Dr. Itzel Lerma MCH (RBC) [Entitic mass] 27.4 pg Normal 25.9-34.0 [facility] Comment on above: Performed By: #### O SMO #### [facility] [address] [place] [address] Dr. Itzel Lerma MCHC (RBC) [Mass/Vol] 30.7 g/dL Normal 29.9-35.2 [facility] Comment on above: Performed By: #### O SMO #### [facility] [address] [address] [address] Itzel Lerma MCV (RBC) [Entitic vol] 89.2 fL Normal 80.0-94.0 [facility] Comment on above: Performed By: #### O SMO #### [facility] [address] [address] [address] Itzel Lemra MONO # 0.7 103/ul Normal 0.3-0.8 [facility] Comment on above: Performed By: #### O SMO #### [facility] [address] [place] [address] Dr. Itzel Lerma Monocytes/100 WBC (Bld) 7.9 % Normal 1.7-12.0 [facility] Comment on above: Performed By: #### O SMO #### [facility] [address] [place] [address] Dr. Itzel Lerma NEUT # 7.6 103/ul Critically high 1.4-6.5 [facility] Comment on above: Performed By: #### O SMO #### [facility] [address] [place] [address] Dr. Itzel Lerma Neutrophils/100 WBC (Bld) 80.7 % Critically high 43.0-75.0 [facility] Comment on above: Performed By: #### O SMO #### [facility] [address] [place] [address] Dr. Itzel Lerma Platelet mean volume (Bld) [Entitic vol] 10.0 fL Normal 9.5-13.5 [facility] Comment on above: Performed By: #### O SMO #### [facility] [address] [place] [address] Dr. Itzel Lerma PLT 276 103/ul Normal 150-450 [facility] Comment on above: Performed By: #### O SMO #### [facility] [address] [place] [address] Dr. Itzel Lerma RBC 5.37 106/ul Normal 4.70-6.10 [facility] Comment on above: Performed By: #### O SMO #### [facility] [address], [place] [address] Dr. Itzel Lerma WBC 9.4 103/ul Normal 4.0-11.0 [facility] Comment on above: Performed By: #### O SMO #### [facility] [address], [place] [address] ABD/PELVIS WO CONon [...] SHAR TREJO Date: 2022-11-19 19:32 Normal [facility] SARS-CoV-2 (COVID-19) RNA JUDY+probe Ql (Unsp spec) Not detected Normal NOT DETECTED [facility] Comment on above: Result Comment: [...] for this test is supported by the Experience Specialist of Health and Human Service's declaration that [...] used). Performed By: #### U A #### [facility] [address] [place] [address] Dr. Itzel Lerma PROF CHEM 8 (BAS METB)on Anion gap [Moles/Vol] 10.2 mmol/L Normal [facility] Comment on above: Performed By: #### U A #### [facility] [address] [place] [address] Dr. Itzel eLrma Calcium [Mass/Vol] 9.8 mg/dL Normal 8.5-10.1 [facility] Comment on above: Performed By: #### U A #### [facility] [address] [place] [address] Dr. Itzel Lerma Chloride [Moles/Vol] 99 mmol/L Normal 98-107 [facility] Comment on above: Performed By: #### U A #### [facility] [address] [place] [address] Dr. Itzel Lerma CO2 [Moles/Vol] 27.4 mmol/L Normal 21.0-32.0 [facility] Comment on above: Performed By: #### U A #### [facility] [address] [place] [address] Dr. Itzel Lerma Creatinine [Mass/Vol] 2.02 mg/dL Critically high 0.70-1.30 [facility] Comment on above: Performed By: #### U A #### [facility] [address] [address] [address] Itzel Lerma EGFR-AF PANAMANIAN 39 mL/min/1.73m2 Critically low >=60 [facility] Comment on above: Performed By: #### U A #### [facility] [address] [address] [address] Itzel Lerma EGFR-NON AF PANAMANIAN 32 mL/min/1.73m2 Critically low >=60 [facility] Comment on above: Performed By: #### U A #### [facility] [address] [address] [address] Itzel Lerma Glucose [Mass/Vol] 148 mg/dL Critically high 74-106 [facility] Comment on above: Performed By: #### U A #### [facility] [address] [address] [address] Itzel Lerma Potassium [Moles/Vol] 5.6 mmol/L Critically high 3.5-5.1 [facility] Comment on above: Performed By: #### U A #### [facility] [address] [address] [address] Itzel Lerma Sodium [Moles/Vol] 131 mmol/L Critically low 136-145 [facility] Comment on above: Performed By: #### U A #### [facility] [address] [address] [address] Itzel Lerma Urea nitrogen [Mass/Vol] 44.0 mg/dL Critically high 7.0-18.0 [facility] Comment on above: Performed By: #### U A #### [facility] [address] [address] [address] Itzel Lerma Urea nitrogen/Creatinine [Mass ratio] 21.8 mg/mg Normal [facility] Comment on above: Performed By: #### U A #### [facility] [id number] Itzel Lerma XR KUB 1 VIEWon 11-19-2022 XR KUB 1 VIEW EXAM: XR KUB 1 VIEW HISTORY: Nasogastric tube in situ COMPARISON: None. TECHNIQUE: Single view FINDINGS: IMPRESSION: Single limited view of the abdomen. Enteric tube tip is approximately 6.2 cm below the diaphragm. Air-filled loops of large and small bowel Electronically authenticated by: SHAHZAD VILLALPANDO Date: 2022-11-19 20:24 Normal [facility] OSMOLALITYon 07-12-2022 Osmolality [Osmolality] 274 mosm/kg Critically low 280-301 [facility] Comment on above: Performed By: #### O SMO #### [facility] [address] [place] [address] Dr. Itzel Lerma CBC AUTO DIFFon 07-11-2022 BASO # 0.0 103/ul Normal 0.0-0.1 [facility] Comment on above: Performed By: #### O JESSE #### [facility] [address] [place] [address] Dr. Itzel Lerma Basophils/100 WBC (Bld) 0.3 % Normal 0.2-2.0 [facility] Comment on above: Performed By: #### O JESSE #### [facility] [address] [place] [address] Dr. Itzel Lerma EO # 0.1 103/ul Normal 0.0-0.7 [facility] Comment on above: Performed By: #### O JESSE #### [facility] [address] [place] [address] Dr. Itzel Lerma Eosinophils/100 WBC (Bld) 0.7 % Critically low 0.9-7.0 [facility] Comment on above: Performed By: #### O JESSE #### [facility] [address] [place] [address] Dr. Itzel Lerma Erythrocyte distribution width (RBC) [Ratio] 14.6 % Normal 11.0-15.0 [facility] Comment on above: Performed By: #### O JESSE #### [facility] [address] [place] [address] Dr. Itzel Lerma Hematocrit (Bld) [Volume fraction] 35.2 % Critically low 42.0-54.0 [facility] Comment on above: Performed By: #### O JESSE #### [facility] [address] [place] [address] Dr. Itzel Lerma Hemoglobin (Bld) [Mass/Vol] 11.4 g/dL Critically low 14.0-18.0 [facility] Comment on above: Performed By: #### O JESSE #### [facility] [address] [place] [address] Dr. Itzel Lerma IG # 0.04 10e3/ul Critically high 0.00-0.03 [facility] Comment on above: Performed By: #### O JESSE #### [facility] [address] [place] [address] Dr. Itzel Lerma IG % 0.4 % Normal 0.0-0.5 [facility] Comment on above: Performed By: #### O JESSE #### [facility] [address] [place] [address] Dr. Itzel Lerma LYMPH # 0.9 103/ul Critically low 1.2-3.[address] [facility] Comment on above: Performed By: #### O JESSE #### [facility] [address] [place] [address] Dr. Itzel Lerma Lymphocytes/100 WBC (Bld) 10.4 % Critically low 20.5-60.0 [facility] Comment on above: Performed By: #### O JESSE #### [facility] [address] [place] [address] Dr. Itzel Lerma MANUAL DIFF REQ NO Normal [facility] [place] [facility] Comment on above: Performed By: #### O JESSE #### [facility] [address] [place] [address] Dr. Itzel Lerma MCH (RBC) [Entitic mass] 29.1 pg Normal 25.9-34.0 [facility] Comment on above: Performed By: #### O JESSE #### [facility] [address] [place] [address] Dr. Itzel Lerma MCHC (RBC) [Mass/Vol] 32.4 g/dL Normal 29.9-35.2 [facility] Comment on above: Performed By: #### O JESSE #### [facility] [address] [address] [address] Itzle Lerma MCV (RBC) [Entitic vol] 89.8 fL Normal 80.0-94.0 [facility] Comment on above: Performed By: #### O JESSE #### [facility] [address] [place] [address] Dr. Itzel Lerma MONO # 1.0 103/ul Critically high 0.3-0.8 [facility] [place] [facility] Comment on above: Performed By: #### O JESSE #### [facility] [address] [place] [address] Dr. Itzel Lerma Monocytes/100 WBC (Bld) 11.1 % Normal 1.7-12.0 [facility] Comment on above: Performed By: #### O JESSE #### [facility] [address] [place] [address] Dr. Itzel Lerma NEUT # 6.9 103/ul Critically high 1.4-6.5 [facility] Comment on above: Performed By: #### O JESSE #### [facility] [address] [place] [address] Dr. Itzel Lerma Neutrophils/100 WBC (Bld) 77.1 % Critically high 43.0-75.0 [facility] Comment on above: Performed By: #### O JESSE #### [facility] [address] [place] [address] Dr. Itzel Lerma Platelet mean volume (Bld) [Entitic vol] 9.5 fL Normal 9.5-13.5 [facility] Comment on above: Performed By: #### O JESSE #### [facility] [address] [place] [address] Dr. Itzel Lerma PLT 166 103/ul Normal 150-450 [facility] Comment on above: Performed By: #### O JESSE #### [facility] [address] [place] [address] Dr. Itzel Lerma RBC 3.92 106/ul Critically low 4.70-6.10 [facility] [place] [facility] Comment on above: Performed By: #### O JESSE #### [facility] [address] [address] [address] Itzel Lerma WBC 9.0 103/ul Normal 4.0-11.0 [facility] Comment on above: Performed By: #### O JESSE #### [facility] [address] [place] [address] Dr. Itzel Lerma H PYLORI ANTIBODY IGGon 06-29 H. PYLORI IGG ABS 1.90 Index Value Critically high 0.00-0. 79 [facility] Comment on above: Result Comment: Nega tive <0.80 Equivocal 0.80 - 0.89 Positive >0.89 Performed By: #### H PYLLC #### [facility] [address] [place] [address] Dr. Itzel Lerma OCC BLD IMMUNOASSAYon 2021 OCCULT BLOOD Positive Abnormal NEGATIVE [facility] Comment on above: Performed By: #### O JESSE #### [facility] [address] [place] [address] Dr. Itzel Lerma OSMOLALITY URINEon 2 Osmolality, Urine 252 mOsmol/kg Normal [facility] Comment on above: Result Comment: 24 h r : 300 - 900 Random: 50 - 1400 After 12hr fluid restriction: >850 Performed By: #### O JESSE #### [facility] [address] [place] [address] Dr. Itzel Lerma PROF 14(COMP METB)on 022 Albumin [Mass/Vol] 2.6 g/dL Critically low 3.4-5.0 [facility] Comment on above: Performed By: #### O SMO #### [facility] [address] [place] [address] Dr. Itzel Lerma Albumin/Globulin [Mass ratio] 0.6 {ratio} Normal [facility] Comment on above: Performed By: #### O SMO #### [facility] [address] [place] [address] Dr. Itzel Lerma ALP [Catalytic activity/Vol] 59 U/L Normal 46-116 [facility] Comment on above: Performed By: #### O SMO #### [facility] [address] [address] [address] Itzel Lerma ALT [Catalytic activity/Vol] 10 U/L Critically low 16-63 [facility] Comment on above: Performed By: #### O SMO #### [facility] [address] [address] [address] Itzel Lerma Anion gap [Moles/Vol] 14.3 mmol/L Normal [facility] Comment on above: Performed By: #### O SMO #### [facility] [address] [address] [address] Itzel Lerma AST [Catalytic activity/Vol] 12 U/L Critically low 15-37 [facility] Comment on above: Performed By: #### O SMO #### [facility] [address] [place] [address] Dr. Itzel Lerma Bilirubin [Mass/Vol] 0.3 mg/dL Normal 0.2-1.0 [facility] Comment on above: Performed By: #### O SMO #### [facility] [address] [address] [address] Itzel Lerma Calcium [Mass/Vol] 7.5 mg/dL Critically low 8.5-10.1 [facility] Comment on above: Performed By: #### O SMO #### [facility] [address] [place] [address] Dr. Itzel Lerma Chloride [Moles/Vol] 116 mmol/L Critically high 98-107 [facility] Comment on above: Performed By: #### O SMO #### [facility] [address] [address] [address] Itzel Lerma CO2 [Moles/Vol] 14.3 mmol/L Critically low 21.0-32.0 [facility] Comment on above: Performed By: #### O SMO #### [facility] [address] [address] [address] Itzel Lerma Creatinine [Mass/Vol] 1.38 mg/dL Critically high 0.70-1.30 [facility] Comment on above: Performed By: #### O SMO #### [facility] [address] [address] [address] Itzel Lerma EGFR-AF PANAMANIAN 60 mL/min/1.73m2 Normal >=60 [facility] Comment on above: Performed By: #### O SMO #### [facility] [address] [address] [address] Itzel Lerma EGFR-NON AF PANAMANIAN 49 mL/min/1.73m2 Critically low >=60 [facility] Comment on above: Performed By: #### O SMO #### [facility] [address] [address] [address] Itzel Lerma Globulin (S) [Mass/Vol] 4.1 g/dL Normal [facility] Comment on above: Performed By: #### O SMO #### [facility] [address] [place] [address] Dr. Itzel Lerma Glucose [Mass/Vol] 137 mg/dL Critically high 74-106 [facility] Comment on above: Performed By: #### O SMO #### [facility] [address] [place] [address] Dr. Itzel Lerma Potassium [Moles/Vol] 3.6 mmol/L Normal 3.5-5.1 [facility] Comment on above: Performed By: #### O SMO #### [facility] [address] [place] [address] Dr. Itzel Lerma Protein [Mass/Vol] 6.7 g/dL Normal 6.4-8.2 [facility] Comment on above: Performed By: #### O SMO #### [facility] [address] [place] [address] Dr. Itzel Lerma Sodium [Moles/Vol] 141 mmol/L Normal 136-145 [facility] Comment on above: Performed By: #### O SMO #### [facility] [address] [address] [address] Itzel Lerma Urea nitrogen [Mass/Vol] 25.0 mg/dL Critically high 7.0-18.0 [facility] Comment on above: Performed By: #### O SMO #### [facility] [address] [place] [address] Dr. Itzel Lerma Urea nitrogen/Creatinine [Mass ratio] 18.1 mg/mg Normal [facility] Comment on above: Performed By: #### O SMO #### [facility] [address] [place] [address] Dr. Itzel Lerma PROTIMEon 07-11-2022 INR Coag (PPP) [Relative time] 5.21 {INR} Critically high [facility] Comment on above: Performed By: #### O SMO #### [facility] [address] [place] [address] Dr. Itzel Lerma INR GUIDELINES SEE BELOW Normal [facility] Comment on above: Result Comment: MIKAL RED INR: 2.0 - 3.0 CONDITIONS NOT LISTED BELOW 2.5 - 3.5 FOR PROSTHETIC HEART VALVE REPLACEMENT 2.5 - 3.5 RECURRENT THROMBOSIS Performed By: #### O SMO #### [facility] [address] [place] [address] Dr. Itzel Lerma PT Coag (PPP) [Time] 50.5 s Critically high 9.0-11.6 [facility] Comment on above: Performed By: #### O SMO #### [facility] [address] [place] [address] Dr. Itzel Lerma CBC AUTO DIFFon 07-10-2022 BASO # 0.0 103/ul Normal 0.0-0.1 [facility] Comment on above: Performed By: #### U A #### [facility] [address] [place] [address] Dr. Itzel Lerma Basophils/100 WBC (Bld) 0.2 % Normal 0.2-2.0 [facility] Comment on above: Performed By: #### U A #### [facility] [address] [place] [address] Dr. Itzel Lerma EO # 0.1 103/ul Normal 0.0-0.7 [facility] Comment on above: Performed By: #### U A #### [facility] [address] [place] [address] Dr. Itzel Lerma Eosinophils/100 WBC (Bld) 0.4 % Critically low 0.9-7.0 [facility] Comment on above: Performed By: #### U A #### [facility] [address] [address] [address] Itzel Lerma Erythrocyte distribution width (RBC) [Ratio] 14.3 % Normal 11.0-15.0 [facility] Comment on above: Performed By: #### U A #### [facility] [address] [place] [address] Dr. Itzle Lerma Hematocrit (Bld) [Volume fraction] 38.2 % Critically low 42.0-54.0 [facility] Comment on above: Performed By: #### U A #### [facility] [address] [place] [address] Dr. Itzel Lerma Hemoglobin (Bld) [Mass/Vol] 12.5 g/dL Critically low 14.0-18.0 [facility] Comment on above: Performed By: #### U A #### [facility] [address] [place] [address] Dr. Itzel Lerma IG # 0.11 10e3/ul Critically high 0.00-0.03 [facility] Comment on above: Performed By: #### U A #### [facility] [address] [place] [address] Dr. Itzel Lerma IG % 0.7 % Critically high 0.0-0.5 [facility] Comment on above: Performed By: #### U A #### [facility] [address] [place] [address] Dr. Itzel Lerma LYMPH # 1.1 103/ul Critically low 1.2-3.8 [facility] Comment on above: Performed By: #### U A #### [facility] [address] [place] [address] Dr. Itzel Lerma Lymphocytes/100 WBC (Bld) 6.9 % Critically low 20.5-60.0 [facility] Comment on above: Performed By: #### U A #### [facility] [address] [place] [address] Dr. Itzel Lerma MANUAL DIFF REQ NO Normal [facility] Comment on above: Performed By: #### U A #### [facility] [address] [address] [address] Itzel Lerma MCH (RBC) [Entitic mass] 29.6 pg Normal 25.9-34.0 [facility] Comment on above: Performed By: #### U A #### [facility] [address] [address] [address] Itzel Lerma MCHC (RBC) [Mass/Vol] 32.7 g/dL Normal 29.9-35.2 [facility] Comment on above: Performed By: #### U A #### [facility] [address] [address] [address] Itzel Lerma MCV (RBC) [Entitic vol] 90.3 fL Normal 80.0-94.0 [facility] Comment on above: Performed By: #### U A #### [facility] [address] [place] [address] Dr. Itzel Lerma MONO # 1.2 103/ul Critically high 0.3-0.8 [facility] Comment on above: Performed By: #### U A #### [facility] [address] [address] [address] Itzel Lerma Monocytes/100 WBC (Bld) 8.1 % Normal 1.7-12.0 [facility] Comment on above: Performed By: #### U A #### [facility] [address] [address] [address] Itzel Lerma NEUT # 12.8 103/ul Critically high 1.4-6.5 [facility] Comment on above: Performed By: #### U A #### [facility] [address] [address] [address] Itzel Lerma Neutrophils/100 WBC (Bld) 83.7 % Critically high 43.0-75.0 [facility] Comment on above: Performed By: #### U A #### [facility] [address] [place] [address] Dr. Itzel Lerma Platelet mean volume (Bld) [Entitic vol] 9.5 fL Normal 9.5-13.5 [facility] Comment on above: Performed By: #### U A #### [facility] [address], [place] [address] Dr. Itzel Lerma PLT 197 103/ul Normal 150-450 [facility] Comment on above: Performed By: #### U A #### [facility] [address], [place] [address] Dr. Itzel Lerma RBC 4.23 106/ul Critically low 4.70-6.10 [facility] Comment on above: Performed By: #### U A #### [facility] [address], [place] [address] Dr. Itzel Lerma WBC 15.3 103/ul Critically high 4.0-11.0 [facility] Comment on above: Performed By: #### U A #### [facility] [address], [place] [address] ABD/PELVIS WO CONon [...] DORIAN SOARES Date: 2022-07-09 22:32 Normal [facility] Covid-19 PCR (CVDTB)on 06-29 SARS-CoV-2 (COVID-19) RNA JUDY+probe Ql (Unsp spec) Not detected Normal NOT DETECTED [facility] Comment on above: Result Comment: [...] for this test is supported by the Experience Specialist of Health and Human Service's declaration that [...] used). Performed By: #### O JESSE #### [facility] [address] [place] [address] Dr. Itzel Lerma GI PANEL (PCR)on 07-10-2022 Adenovirus F 40/41 Not detected Normal NOT DETECTED [facility] Comment on above: Performed By: #### O JESSE #### [facility] [address] [place] [address] Dr. Itzel Lerma Astrovirus Not detected Normal NOT DETECTED [facility] Comment on above: Performed By: #### O JESSE #### [facility] [address] [place] [address] Dr. Itzel Lerma C. Diff toxin A/B Not detected Normal NOT DETECTED [facility] Comment on above: Performed By: #### O JESSE #### [facility] [address] [place] [address] Dr. Itzel Lerma Campylobacter Not detected Normal NOT DETECTED [facility] Comment on above: Performed By: #### O JESSE #### [facility] [address] [place] [address] Dr. Itzel Lerma Cryptosporidium Not detected Normal NOT DETECTED [facility] Comment on above: Performed By: #### O JESSE #### [facility] [address] [place] [address] Dr. Itzel Lerma Cyclos. Cayetanensis Not detected Normal NOT DETECTED [facility] Comment on above: Performed By: #### O JESSE #### [facility] [address] [place] [address] Dr. Itzel Lerma E. Coli O157 Not Applicable Normal Not Applicable [facility] Comment on above: Performed By: #### O JESSE #### [facility] [address] [place] [address] Dr. Itzel Lerma E. histolytica Not detected Normal NOT DETECTED [facility] Comment on above: Performed By: #### O JESSE #### [facility] [address] [place] [address] Dr. Itzel Lerma EAEC Not detected Normal NOT DETECTED [facility] Comment on above: Performed By: #### O JESSE #### [facility] [address] [place] [address] Dr. Itzel Lerma EIEC Not detected Normal NOT DETECTED [facility] Comment on above: Performed By: #### O JESSE #### [facility] [address] [place] [address] Dr. Itzel Lerma EPEC Not detected Normal NOT DETECTED [facility] Comment on above: Performed By: #### O JESSE #### [facility] [address] [place] [address] Dr. Itzel Lerma ETEC Not detected Normal NOT DETECTED [facility] Comment on above: Performed By: #### O JESSE #### [facility] [address] [place] [address] Dr. Itzel Taylichester Not detected Normal NOT DETECTED [facility] Comment on above: Performed By: #### O JESSE #### [facility] [address] [place] [address] Dr. Itzel MCKEON CONTROLS PASSED Normal [facility] Comment on above: Performed By: #### O JESSE #### [facility] [address] [place] [address] Dr. Itzel GALVAN TAVO HEADER GI PANEL BACTERIA Normal [facility] Comment on above: Performed By: #### O JESSE #### [facility] [address] [place] [address] Dr. Itzel GALLOWAY ECOLI GI PANEL DIARRHEAGEN IC E.COLI / SHIGELLA Normal [facility] Comment on above: Performed By: #### O JESSE #### [facility] [address] [place] [address] Dr. Itzel GALLOWAY INFO SEE BELOW Normal [facility] Comment on above: Result Comment: EAEC - Enteroaggregative E. Coli EPEC- Enteropathogenic E. Coli ETEC- Enterotoxigenic E. Coli lt/st STEC- Shigella-like toxin-producing E. Coli stx1/stx2 EIEC- Shigella/Enteroinvasive E. Coli Performed By: #### O JESSE #### [facility] [address] [place] [address] Dr. Itzel GALLOWAY PARASITES GI PANEL PARASITES Normal [facility] Comment on above: Performed By: #### O JESSE #### [facility] [address] [address] [address] Itzel GALLOWAY VIRUS GI PANEL VIRUSES Normal [facility] Comment on above: Performed By: #### O JESSE #### [facility] [address] [address] [address] Itzel Lerma Norovirus GI/GII Not detected Normal NOT DETECTED [facility] Comment on above: Performed By: #### O JESSE #### [facility] [address] [address] [address] Itzel Lerma P. Shigelloides Not detected Normal NOT DETECTED The [facility] Comment on above: Performed By: #### O JESSE #### [facility] [address] [address] [address] Itzel Lerma Rotavirus A Not detected Normal NOT DETECTED The [facility] Comment on above: Performed By: #### O JESSE #### [facility] [address] [address] [address] Itzel Lerma Salmonella Not detected Normal NOT DETECTED The [facility] Comment on above: Performed By: #### O JESSE #### [facility] [address] [address] [address] Itzel Lerma Sapovirus Not detected Normal NOT DETECTED [facility] Comment on above: Performed By: #### O JESSE #### [facility] [address] [address] [address] Itzel Lerma STEC Not detected Normal NOT DETECTED [facility] Comment on above: Performed By: #### O JESSE #### [facility] [address] [address] [address] Itzel Lerma Vibrio Not detected Normal NOT DETECTED [facility] Comment on above: Performed By: #### O JESSE #### [facility] [address] [address] [address] Itzel Lerma Vibrio Cholera Not detected Normal NOT DETECTED The [facility] Comment on above: Performed By: #### O JESSE #### [facility] [address] [place] [address] Dr. Itzel Lerma Y. Enterocolitica Not detected Normal NOT DETECTED [facility] Comment on above: Performed By: #### O JESSE #### [facility] [address] [place] [address] Dr. Itzel Lerma PROF CHEM 8 (BAS METB)on Anion gap [Moles/Vol] 12.6 mmol/L Normal [facility] Comment on above: Performed By: #### O SMO #### [facility] [address] [place] [address] Dr. Itzel Lerma Calcium [Mass/Vol] 7.7 mg/dL Critically low 8.5-10.1 [facility] Comment on above: Performed By: #### O SMO #### [facility] [address] [place] [address] Dr. Itzel Lerma Chloride [Moles/Vol] 103 mmol/L Normal 98-107 [facility] Comment on above: Performed By: #### O SMO #### [facility] [address] [place] [address] Dr. Itzel Lerma CO2 [Moles/Vol] 16.4 mmol/L Critically low 21.0-32.0 [facility] Comment on above: Performed By: #### O SMO #### [facility] [address] [place] [address] Dr. Itzel Lerma Creatinine [Mass/Vol] 2.03 mg/dL Critically high 0.70-1.30 [facility] Comment on above: Performed By: #### O SMO #### [facility] [address] [place] [address] Dr. Itzel Lerma EGFR-AF PANAMANIAN 38 mL/min/1.73m2 Critically low >=60 [facility] Comment on above: Performed By: #### O SMO #### [facility] [address] [place] [address] Dr. Itzel Lerma EGFR-NON AF PANAMANIAN 32 mL/min/1.73m2 Critically low >=60 [facility] Comment on above: Performed By: #### O SMO #### [facility] [address] [address] [address] Itzel Lerma Glucose [Mass/Vol] 148 mg/dL Critically high 74-106 [facility] Comment on above: Performed By: #### O SMO #### [facility] [address] [address] [address] Itzel Lerma Potassium [Moles/Vol] 4.0 mmol/L Normal 3.5-5.1 [facility] Comment on above: Performed By: #### O SMO #### [facility] [address] [address] [address] Itzel Lerma Sodium [Moles/Vol] 128 mmol/L Critically low 136-145 [facility] Comment on above: Performed By: #### O SMO #### [facility] [address] [place] [address] Dr. Itzel Lerma Urea nitrogen [Mass/Vol] 50.0 mg/dL Critically high 7.0-18.0 [facility] Comment on above: Performed By: #### O SMO #### [facility] [address] [place] [address] Dr. Itzel Lerma Urea nitrogen/Creatinine [Mass ratio] 24.6 mg/mg Normal [facility] Comment on above: Performed By: #### O SMO #### [facility] [address] [place] [address] Dr. Itzel Lerma Anion gap [Moles/Vol] 14.3 mmol/L Normal [facility] Comment on above: Performed By: #### U A #### [facility] [address] [place] [address] Dr. Itzel Lerma Calcium [Mass/Vol] 7.8 mg/dL Critically low 8.5-10.1 [facility] Comment on above: Performed By: #### U A #### [facility] [address] [place] [address] Dr. Itzel Lerma Chloride [Moles/Vol] 101 mmol/L Normal 98-107 [facility] Comment on above: Performed By: #### U A #### [facility] [address] [place] [address] Dr. Itzel Lerma CO2 [Moles/Vol] 14.7 mmol/L Critically low 21.0-32.0 [facility] Comment on above: Performed By: #### U A #### [facility] [address] [address] [address] Itzel Lerma Creatinine [Mass/Vol] 2.01 mg/dL Critically high 0.70-1.30 [facility] Comment on above: Performed By: #### U A #### [facility] [address] [address] [address] Itzel Lerma EGFR-AF PANAMANIAN 39 mL/min/1.73m2 Critically low >=60 [facility] Comment on above: Performed By: #### U A #### [facility] [address] [address] [address] Itzel Lerma EGFR-NON AF PANAMANIAN 32 mL/min/1.73m2 Critically low >=60 [facility] Comment on above: Performed By: #### U A #### [facility] [address] [address] [address] Itzel Lerma Glucose [Mass/Vol] 152 mg/dL Critically high 74-106 [facility] Comment on above: Performed By: #### U A #### [facility] [address] [address] [address] Itzel Lerma Potassium [Moles/Vol] 4.0 mmol/L Normal 3.5-5.1 [facility] Comment on above: Performed By: #### U A #### [facility] [address] [address] [address] Itzel Lerma Sodium [Moles/Vol] 126 mmol/L Critically low 136-145 [facility] Comment on above: Performed By: #### U A #### [facility] [address] [address] [address] Itzel Lerma Urea nitrogen [Mass/Vol] 51.0 mg/dL Critically high 7.0-18.0 [facility] Comment on above: Performed By: #### U A #### [facility] [address] [address] [address] Itzel Lerma Urea nitrogen/Creatinine [Mass ratio] 25.4 mg/mg Normal [facility] Comment on above: Performed By: #### U A #### [facility] [address] [address] [address] Itzel Lerma PROTIMEon 07-10-2022 INR Coag (PPP) [Relative time] 4.72 {INR} Critically high [facility] Comment on above: Performed By: #### P T #### [facility] [address] [place] [address] Dr. Itzel Lerma INR GUIDELINES SEE BELOW Normal [facility] Comment on above: Result Comment: MIKAL RED INR: 2.0 - 3.0 CONDITIONS NOT LISTED BELOW 2.5 - 3.5 FOR PROSTHETIC HEART VALVE REPLACEMENT 2.5 - 3.5 RECURRENT THROMBOSIS Performed By: #### P T #### [facility] [address] [place] [address] Dr. Itzel Lerma PT Coag (PPP) [Time] 46.1 s Critically high 9.0-11.6 [facility] Comment on above: Performed By: #### P T #### [facility] [address] [place] [address] Dr. Itzel Lerma SODIUM RANDOM URINEon 2021 UR SODIUM <50 Normal 30-90 [facility] Comment on above: Performed By: #### O JESSE #### [facility] [address] [place] [address] Dr. Itzel Lerma UA RANDOMon 07-10-2022 Bilirubin Ql (U) Negative Normal NEGATIVE [facility] Comment on above: Performed By: #### U A #### [facility] [address] [place] [address] Dr. Itzel Lerma Clarity (U) CLEAR Normal CLEAR [facility] Comment on above: Performed By: #### U A #### [facility] [address] [place] [address] Dr. Itzel Lerma Color (U) LT. YELLOW Normal YELLOW [facility] Comment on above: Performed By: #### U A #### [facility] [address] [address] [address] Itzel Lerma Glucose Ql (U) Negative Normal NEGATIVE [facility] Comment on above: Performed By: #### U A #### [facility] [address] [address] [address] Itzel Lerma Hemoglobin Ql (U) Negative Normal NEGATIVE [facility] Comment on above: Performed By: #### U A #### [facility] [address] [place] [address] Dr. Itzel Lerma Ketones Ql (U) Negative Normal NEGATIVE [facility] Comment on above: Performed By: #### U A #### [facility] [address] [place] [address] Dr. Itzel Lerma LEUKOCYTES Negative Normal NEGATIVE [facility] Comment on above: Performed By: #### U A #### [facility] [address] [place] [address] Dr. Itzel Lerma Nitrite Ql (U) Negative Normal NEGATIVE [facility] Comment on above: Performed By: #### U A #### [facility] [address] [place] [address] Dr. Itzel Lerma pH (U) 6.0 [pH] Normal 5-9 [facility] Comment on above: Performed By: #### U A #### [facility] [address] [place] [address] Dr. Itzel Lerma SPEC GRAVITY 1.010 Normal 1.005-<=1.025 [facility] Comment on above: Performed By: #### U A #### [facility] [address] [place] [address] Dr. Itzel Lerma UA PROTEIN Negative Normal NEGATIVE/ TRACE [facility] Comment on above: Performed By: #### U A #### [facility] [address] [place] [address] Dr. Itzel Lerma Urobilinogen Qn (U) 0.2 {Reta'U}/dL Normal 0.2 - 1. 0 [facility] Comment on above: Performed By: #### U A #### [facility] [address] [place] [address] Dr. Itzel Lerma XR ABD FLAT UP_PA [...] by: DORIAN YODER Date: 2022-07-10 10:16 Normal [facility] CBC AUTO DIFFon 07-09-2022 BASO # 0.1 103/ul Normal 0.0-0.1 [facility] Comment on above: Performed By: #### O JESSE #### [facility] [address] [place] [address] Dr. Itzel Lerma Basophils/100 WBC (Bld) 0.2 % Normal 0.2-2.0 [facility] Comment on above: Performed By: #### O JESSE #### [facility] [address] [place] [address] Dr. Itzel Lerma EO # 0.0 103/ul Normal 0.0-0.7 [facility] Comment on above: Performed By: #### O JESSE #### [facility] [address] [place] [address] Dr. Itzel Lerma Eosinophils/100 WBC (Bld) 0.2 % Critically low 0.9-7.0 [facility] Comment on above: Performed By: #### O JESSE #### [facility] [address] [place] [address] Dr. Itzel Lerma Erythrocyte distribution width (RBC) [Ratio] 14.0 % Normal 11.0-15.0 [facility] Comment on above: Performed By: #### O JESSE #### [facility] [address] [place] [address] Dr. Itzel Lerma Hematocrit (Bld) [Volume fraction] 39.3 % Critically low 42.0-54.0 [facility] Comment on above: Performed By: #### O JESSE #### [facility] [address] [place] [address] Dr. Itzel Lerma Hemoglobin (Bld) [Mass/Vol] 13.2 g/dL Critically low 14.0-18.0 [facility] Comment on above: Performed By: #### O JESSE #### [facility] [address] [place] [address] Dr. Itzel Lerma IG # 0.20 10e3/ul Critically high 0.00-0.03 [facility] Comment on above: Performed By: #### O JESSE #### [facility] [address] [place] [address] Dr. Itzel Lerma IG % 0.9 % Critically high 0.0-0.5 [facility] Comment on above: Performed By: #### O JESSE #### [facility] [address] [place] [address] Dr. Itzel Lerma LYMPH # 1.3 103/ul Normal 1.2-3.8 [facility] Comment on above: Performed By: #### O JESSE #### [facility] [address] [place] [address] Dr. Itzel Lerma Lymphocytes/100 WBC (Bld) 5.8 % Critically low 20.5-60.0 [facility] Comment on above: Performed By: #### O JESSE #### [facility] [address] [place] [address] Dr. Itzel Lerma MANUAL DIFF REQ NO Normal [facility] Comment on above: Performed By: #### O JESSE #### [facility] [address] [place] [address] Dr. Itzel Lerma MCH (RBC) [Entitic mass] 29.7 pg Normal 25.9-34.0 [facility] Comment on above: Performed By: #### O JESSE #### [facility] [address] [place] [address] Dr. Itzel Lerma MCHC (RBC) [Mass/Vol] 33.6 g/dL Normal 29.9-35.2 [facility] Comment on above: Performed By: #### O JESSE #### [facility] [address] [place] [address] Dr. Itzel Lerma MCV (RBC) [Entitic vol] 88.3 fL Normal 80.0-94.0 [facility] Comment on above: Performed By: #### O JESSE #### [facility] [address] [place] [address] Dr. Itzel Lerma MONO # 1.3 103/ul Critically high 0.3-0.8 [facility] Comment on above: Performed By: #### O JESSE #### [facility] [address] [place] [address] Dr. Itzel Lerma Monocytes/100 WBC (Bld) 6.0 % Normal 1.7-12.0 [facility] Comment on above: Performed By: #### O JESSE #### [facility] [address] [place] [address] Dr. Itzel Lerma NEUT # 19.3 103/ul Critically high 1.4-6.5 [facility] Comment on above: Performed By: #### O JESSE #### [facility] [address] [place] [address] Dr. Itzel Lerma Neutrophils/100 WBC (Bld) 86.9 % Critically high 43.0-75.0 [facility] Comment on above: Performed By: #### O JESSE #### [facility] [address] [place] [address] Dr. Itzel Lerma Platelet mean volume (Bld) [Entitic vol] 9.2 fL Critically low 9.5-13.5 [facility] Comment on above: Performed By: #### O JESSE #### [facility] [address] [place] [address] Dr. Itzel Lerma PLT 246 103/ul Normal 150-450 [facility] Comment on above: Performed By: #### O JESSE #### [facility] [address] [address] [address] Itzel Lerma RBC 4.45 106/ul Critically low 4.70-6.10 [facility] Comment on above: Performed By: #### O JESSE #### [facility] [address] [address] [address] Itzel Lerma WBC 22.2 103/ul Critically high 4.0-11.0 [facility] Comment on above: Performed By: #### O JESSE #### [facility] [address] [place] [address] Dr. Itzel Lerma LACTATE/LACTIC ACIDon 2021 Lactate [Moles/Vol] 1.0 mmol/L Normal 0.4-1.9 [facility] Comment on above: Performed By: #### O SMO #### [facility] [address] [place] [address] Dr. Itzel Lerma PROF 14(COMP METB)on 022 Albumin [Mass/Vol] 3.0 g/dL Critically low 3.4-5.0 [facility] Comment on above: Performed By: #### C MP #### [facility] [address] [place] [address] Dr. Itzel Lerma Albumin/Globulin [Mass ratio] 0.6 {ratio} Normal [facility] Comment on above: Performed By: #### C MP #### [facility] [address] [place] [address] Dr. Itzel Lerma ALP [Catalytic activity/Vol] 90 U/L Normal 46-116 [facility] Comment on above: Performed By: #### C MP #### [facility] [address] [place] [address] Dr. Itzel Lrema ALT [Catalytic activity/Vol] 12 U/L Critically low 16-63 [facility] Comment on above: Performed By: #### C MP #### [facility] [address] [address] [address] Itzel Lerma Anion gap [Moles/Vol] 18.2 mmol/L Normal [facility] Comment on above: Performed By: #### C MP #### [facility] [address] [place] [address] Dr. Itzel Lerma AST [Catalytic activity/Vol] 17 U/L Normal 15-37 [facility] Comment on above: Performed By: #### C MP #### [facility] [address] [address] [address] Itzel Lerma Bilirubin [Mass/Vol] 0.8 mg/dL Normal 0.2-1.0 [facility] Comment on above: Performed By: #### C MP #### [facility] [address] [place] [address] Dr. Itzel Lerma Calcium [Mass/Vol] 7.9 mg/dL Critically low 8.5-10.1 [facility] Comment on above: Performed By: #### C MP #### [facility] [address] [place] [address] Dr. Itzel Lerma Chloride [Moles/Vol] 92 mmol/L Critically low 98-107 [facility] Comment on above: Performed By: #### C MP #### [facility] [address] [place] [address] Dr. Itzel Lerma CO2 [Moles/Vol] 14.0 mmol/L Critically low 21.0-32.0 [facility] Comment on above: Performed By: #### C MP #### [facility] [address] [place] [address] Dr. Itzel Lerma Creatinine [Mass/Vol] 2.74 mg/dL Critically high 0.70-1.30 [facility] Comment on above: Performed By: #### C MP #### [facility] [address] [place] [address] Dr. Itzel Lerma EGFR-AF PANAMANIAN 27 mL/min/1.73m2 Critically low >=60 [facility] Comment on above: Performed By: #### C MP #### [facility] [address] [place] [address] Dr. Itzel Lerma EGFR-NON AF PANAMANIAN 22 mL/min/1.73m2 Critically low >=60 [facility] Comment on above: Performed By: #### C MP #### [facility] [address] [address] [address] Itzel Lerma Globulin (S) [Mass/Vol] 4.9 g/dL Normal [facility] Comment on above: Performed By: #### C MP #### [facility] [address] [address] [address] Itzel Lerma Glucose [Mass/Vol] 169 mg/dL Critically high 74-106 [facility] Comment on above: Performed By: #### C MP #### [facility] [address] [place] [address] Dr. Itzel Lerma Potassium [Moles/Vol] 4.2 mmol/L Normal 3.5-5.1 [facility] Comment on above: Performed By: #### C MP #### [facility] [address] [address] [address] Itzel Lerma Protein [Mass/Vol] 7.9 g/dL Normal 6.4-8.2 [facility] Comment on above: Performed By: #### C MP #### [facility] [address] [place] [address] Dr. Itzel Lerma Sodium [Moles/Vol] 120 mmol/L Critically low 136-145 [facility] Comment on above: Performed By: #### C MP #### [facility] [address] [address] [address] Itzel Lerma Urea nitrogen [Mass/Vol] 69.0 mg/dL Critically high 7.0-18.0 [facility] Comment on above: Performed By: #### C MP #### [facility] [address] [place] [address] Dr. Itzel Lerma Urea nitrogen/Creatinine [Mass ratio] 25.2 mg/mg Normal [facility] Comment on above: Performed By: #### C MP #### [facility] [address] [place] [address] Dr. Itzel Lerma PROTIMEon 07-09-2022 INR Coag (PPP) [Relative time] 5.18 {INR} Critically high [facility] Comment on above: Performed By: #### U A #### [facility] [address] [place] [address] Dr. Itzel Lerma INR GUIDELINES SEE BELOW Normal [facility] Comment on above: Result Comment: MIKAL RED INR: 2.0 - 3.0 CONDITIONS NOT LISTED BELOW 2.5 - 3.5 FOR PROSTHETIC HEART VALVE REPLACEMENT 2.5 - 3.5 RECURRENT THROMBOSIS Performed By: #### U A #### [facility] [address] [place] [address] Dr. Itzel Lerma PT Coag (PPP) [Time] 50.2 s Critically high 9.0-11.6 [facility] Comment on above: Performed By: #### U A #### [facility] [address] [place] [address] Dr. Itzel Lerma PTTon 07-09-2022 aPTT Coag (Bld) [Time] 62.9 s Critically high 22.3-36.2 [facility] Comment on above: Performed By: #### U A #### [facility] [address] [place] [address] Dr. Itzel Lerma TSHon 07-09-2022 TSH 1.544 uIU/mL Normal 0.358-3.740 [facility] Comment on above: Performed By: #### O JESSE #### [facility] [address] [place] [address] Dr. Itzel Lerma Vital Signs Date Time Vital Sign Value Performing Clinician Facility 01-10-2023 13:11040 Body height 172.72 cm MD Ivan Lopez Work Phone: [facility] 01-10-2023 13:11040 Body temperature 97.8 [degF] MD Ivan Lopez Work Phone: [facility] 01-10-2023 13:11040 Body weight 71.4 kg MD Ivan Lopez Work Phone: [facility] 01-10-2023 13:11-0400 Diastolic blood pressure 84 mm[Hg] MD Ivan Lopez Work Phone: [facility] 01-10-2023 13:11-0400 Heart rate 73 /min MD Ivan Lopez Work Phone: [facility] 01-10-2023 13:11-0400 Respiratory rate 20 /min MD Ivan Lopez Work Phone: [facility] 01-10-2023 13:11-0400 SaO2% (BldA) [Mass fraction] 99 % MD Ivan Lopez Work Phone: [facility] 01-10-2023 13:11-0400 Systolic blood pressure 142 mm[Hg] MD Ivan Lopez Work Phone: [facility] 05-23-2022 15:00-0400 Body height 172.72 cm Yves Sanford Other [facility] Other 05-23-2022 15:00-0400 Body mass index (BMI) [Ratio] 25.09 kg/m2 Yves Sanford Other [facility] Other 05-23-2022 15:00-0400 Body weight 74.84 kg Yves Sanford Other [facility] Other 02-21-2022 15:00-0400 Body height 172.72 cm Yves Sanford Other [facility] Other 02-21-2022 15:00-0400 Body mass index (BMI) [Ratio] 26 kg/m2 Yves Christianormack Other [facility] Other 02-21-2022 15:00-0400 Body weight 77.57 kg Yves Cornejoack Other [facility] Other 02-21-2022 15:00-0400 Diastolic blood pressure 81 mm[Hg] Yves Cornejoack Other [facility] Other 02-21-2022 15:00-0400 Systolic blood pressure 118 mm[Hg] Yves Juvenal Other [facility] Other 11-22-2021 14:30-0500 Body height 172.72 cm Yves Christianormack Other [facility] Other 11-22-2021 14:30-0500 Body mass index (BMI) [Ratio] 26.76 kg/m2 Yves Christianormack Other [facility] Other 11-22-2021 14:30-0500 Body weight 79.83 kg Yves Juvenal Other [facility] Other 11-22-2021 14:30-0500 Diastolic blood pressure 70 mm[Hg] Yves Juvenal Other [facility] Other 11-22-2021 14:30-0500 Systolic blood pressure 121 mm[Hg] Yves Juvenal Other [facility] [employer] Other Encounters Encounter Date Encounter Type Care Provider Facility Start: 07-06-2024 ambulatory YANA Naranjo [facility] Start: 01-10-2023 End: 01-10-2023 Emergency department patient visit Ajit Rivero Facility:[facility] Start: 01-10-2023 End: 01-10-2023 Emergency department patient visit MD Ivan Lopez Work Phone: [facility] Work Phone: Start: 11-24-2022 End: 11-24-[address] DOCTOR CARDENAS Facility:[facility] Start: 11-19-2022 End: 11-23-2022 Evaluation and management of inpatient DR DOCTOR CARDENAS Facility:[facility] Start: 10-29-2022 End: 10-29-2022 ambulatory Yves Sanford Other [facility] Other Start: 10-29-2022 Telephone encounter Yves Zarate [facility] Start: 07-11-2022 ambulatory Facility:[facility] Start: 07-10-2022 End: 07-11-[address] DOCTOR CARDENAS Facility:[facility] Start: 05-23-2022 End: 05-23-2022 ambulatory Yves Sanford Other [facility] Other Start: 05-23-2022 Office outpatient visit 15 minutes [facility] Start: 02-21-2022 End: 02-21-2022 ambulatory [facility] Start: 02-21-2022 Office outpatient visit 15 minutes [facility] Start: 11-22-2021 End: 11-22-2021 ambulatory [facility] Start: 11-22-2021 Office outpatient ne w 45 minutes [facility] Procedures Date Procedure Procedure Detail Performing Clinician Start: 01-10-2023 CT of head without contrast MD Ivan Lopez Work Phone: Start: 07-10-[address] DOCTOR CARDENAS Comment on above: Performed By: #### U A #### [facility] [address] [place] [address] Dr. Itzel Lerma Plan of Treatment Date Care Activity Detail Author Patient Education Head Injury in Adults ( [place]) [facility] Work Phone: Patient referral [facility] Work Phone: Payers Date Payer Category Payer Self-pay [id number] 2019 Unknown [id number] 1959 Medicare [id number] 1940 Unknown [id number] 1940 Unknown [id number] 1940 Unknown [id number] Medicare Medicare Outpatient [id number] Unknown [employer] [id number] Unknown [id number] Social History Date Type Detail Facility Sex Assigned At [facility] Start: 01-10-2023 Tobacco smoking stat [facility] Never smoked tobacco (finding) [facility] Start: 1940 Sex Assigned At [facility] Evaluation note 05-23-2022 Note Date & Type Note Facility 05-23-2022 Evaluation note Encounter Date Diagnosis Assessment Notes Apr, Diarrhea (ICD-10 - R19.7) patient states does not seem to bad patient does use the imodium as needed Apr, Nausea (ICD-10 - R11.0) will start zofran [facility] Other Evaluation note 02-21-2022 Note Date & Type Note Facility 02-21-2022 Evaluation note Encounter Date Diagnosis Assessment Notes January, Weight loss (ICD-10 - R63.4) January, Diarrhea (ICD-10 - R19.7) Start Imodium every morning Encouraged low fodmap diet. Education given to patient again. 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) January, Frequent bowel movements (ICD-10 - R19.4) [employer] [facility] Other Evaluation note 11-22-2021 Note Date & Type Note Facility 11-22-2021 Evaluation note Encounter Date Diagnosis Assessment Notes Oct, Weight loss (ICD-10 - R63.4) OBTAIN RECORDS FROM [facility] INPT STAY COPY OF LOW FODMAP DIET GIVEN TO PT RTO 3 MONTHS Oct, Diarrhea (ICD-10 - R19.7) [employer] [facility] Other Evaluation note Note Date & Type Note Facility Evaluation note No assessment information [facility] Work Phone: Evaluation note Note Date & Type Note Facility Evaluation note No Information [facility] Other History general Narrative - Reported Note Date & Type Note Facility History general Narrative - Reported Type Surgical History bowel resection [facility] Other Reason for visit Narrative Note Date & Type Note Facility Reason for visit Narrative REFERRED BY Chester LOPEZ FOR WEIGHT LOSS. PT DOES TAKE MEDICATIONS, HOWEVER HE DOES NOT RECALL NAMES OR DOSAGES OR HAVE A LIST TO REVIEW, (REFERRAL NOTE RECEIVED) [facility] Other Chief Complaint and Reason for Visit [...] KNOW NAMES OF MEDICATIONS HE IS ON.[facility] Care Teams (unrecognized sec tion [...] Records FoundNo Status Records FoundNo Status Records FoundNo Status Records Found INFORMATION SOURCE (unrecogn ized section and content) DATE CREATED AUTHOR 02/12/2023 [facility] DATE CREATED AUTHOR AUTHOR'S ORGANIZ ATION 03/18/2023 [facility] DATE CREATED AUTHOR AUTHOR'S ORGANIZ ATION 01/27/2024 [facility] DATE CREATED AUTHOR AUTHOR'S ORGANIZ ATION 07/10/2024 [facility] FOR RECORDS PERTAINING TO PATIENTS WHO ARE [...] BE BASED ON THE PRIMARY CLINICAL RECORDS. [employer] [facility]. provides no warranty or guarantee of the accuracy or completeness of information in this document.
--- NOTE | 2024-09-13 12:51 | ED_ITS ---
HPI - Extremity Problem General Chief complaint: Extremity Problem, Nontraumatic Stated complaint: upper extremity pain Time Seen by Provider: 09/13/24 12:43 Mode of arrival: walk-in History of Present Illness HPI Narrative: 84-year-old male presents to the emergency department for pain and swelling in his right wrist. It started 3 to 4 days ago and was not associated with any injury or unusual activity. He has a history of arthritis. His elbow is not hurting. Related Data Home Medications ?Medication ?Instructions ?Recorded ?Confirmed atorvastatin 10 mg tablet 10 mg PO QPM 03/14/23 09/13/24 empagliflozin 25 mg tablet 12.5 mg PO DAILY 03/14/23 09/13/24 finasteride 5 mg tablet 5 mg PO DAILY 03/14/23 09/13/24 metoprolol succinate 100 mg 100 mg PO DAILY 03/14/23 09/13/24 capsule sprinkle, ext. release 24 hr (Kapspargo Sprinkle) pantoprazole 40 mg tablet,delayed 40 mg PO DAILY 03/14/23 09/13/24 release tamsulosin 0.4 mg capsule 0.4 mg PO Q24H 03/14/23 09/13/24 warfarin 2.5 mg tablet 2.5 mg PO .COMPLEX 03/14/23 09/13/24 warfarin 5 mg tablet 5 mg PO .COMPLEX 03/14/23 09/13/24 brimonidine 0.2 %-timolol 0.5 % 1 drp ophthalmic (eye) QAM 05/30/24 09/13/24 eye drops latanoprost 0.005 % eye drops 1 drp ophthalmic (eye) QPM 05/30/24 09/13/24 levothyroxine 50 mcg tablet 50 mcg PO DAILY 05/30/24 09/13/24 (Euthyrox) metoclopramide HCl 10 mg tablet 10 mg PO BID 05/30/24 09/13/24 Previous Rx's ?Medication ?Instructions ?Recorded acetaminophen 300 mg-codeine 30 mg 1 tab PO Q6H PRN pain 5 days #20 09/13/24 tablet tabs Allergies Allergy/AdvReac Type Severity Reaction Status Date / Time ondansetron (From Zofran) AdvReac Mild Vomiting Verified 06/27/24 22:57 Review of Systems ROS Narrative A ten point review of systems is negative except as noted above. PFSH PFSH Medical History (Updated 09/13/24 @ 13:26 by Brandon Morales MD) Nondiabetic gastroparesis ?K31.84 - Gastroparesis (ICD-10) (HFpEF) heart failure with preserved ejection fraction ?I50.30 - Unspecified diastolic (congestive) heart failure (ICD-10) HLD (hyperlipidemia) ?E78.5 - Hyperlipidemia, unspecified (ICD-10) Hypothyroidism ?E03.9 - Hypothyroidism, unspecified (ICD-10) Spinal stenosis at L4-L5 level ?M48.061 - Spinal stenosis, lumbar region without neurogenic claudication (ICD-10) Generalized weakness ?R53.1 - Weakness (ICD-10) Glaucoma ?H40.9 - Unspecified glaucoma (ICD-10) Gastroparesis ?K31.84 - Gastroparesis (ICD-10) Ileus following gastrointestinal surgery ?K91.89 - Other postprocedural complications and disorders of digestive system (ICD-10) ?K56.7 - Ileus, unspecified (ICD-10) 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 - Peritoneal adhesions (postprocedural) (postinfection) (ICD-10) Bowel obstruction ?K56.609 - Unspecified intestinal obstruction, unspecified as to partial versus complete obstruction (ICD-10) A-fib ?I48.91 - Unspecified atrial fibrillation (ICD-10) Hypertension ?I10 - Essential (primary) hypertension (ICD-10) Surgical History H/O exploratory laparotomy ?Z98.890 - Other specified postprocedural states (ICD-10) Family History Mother Family history of cancer Social History Within the past year, how often did you have a drink containing alcohol: never Within the past year, how often did you have six or more drinks on one occasion: never Score interpretation: A score less than 4 is consistent with normal alcohol consumption. 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 Highest level of school completed/degree received: high school graduate Do you want help with school or training: No Are you now , , , , never or living with a partner: In a typical week, how many times do you talk on the telephone with family, friends, or neighbors: 3 or more times per week How often do you get together with friends or relatives: 3 or more times per week How often do you attend sabianism or yazdanism services: never Do you belong to any clubs or organizations such as sabianism groups unions, [employer] or athletic groups, or school groups: no Total score: 1 Score interpretation: A score of less than or equal to 1 indicates the most socially isolated. Little interest or pleasure in doing things: not at all Feeling down, depressed, or hopeless: not at all Feel stressed/tense/nervous/anxious/difficulty sleeping: not at all Due to disability, difficulty making decisions: No Do you think of yourself as: straight/heterosexual Gender Identity: male Exam Narrative Exam Narrative: Nurses note and vital signs reviewed and patient is not hypoxic. General: The patient appears in no apparent distress. Patient is resting comfortably on cart. Skin: Warm, dry, no pallor noted. There is no rash noted. Head: Normocephalic, atraumatic Eye: Normal conjunctiva, no drainage Ears, Nose, Mouth, and Throat: oral mucosa is moist. Nares patent. Cardiovascular: Regular Rate and Rhythm Respiratory: Patient is in no distress, no accessory muscle use, lungs are clear to auscultation, no wheezing, rales or rhonchi GI: Nontender Musculoskeletal: The right wrist is examined. There is some swelling on the dorsum and some minimal erythema. Skin intact. Right elbow nontender. Radial pulse 2+. Neurological: Awake and alert Psychiatric: Cooperative Constitutional Vital Signs, click to edit/add: Last Vital Signs Temp 98.2 F 09/13/24 12:41 Pulse 126 H 09/13/24 12:41 Resp 18 09/13/24 12:41 BP 90/76 09/13/24 12:41 Pulse Ox 98 09/13/24 12:41 O2 Del Method Room Air 09/13/24 12:41 Course Vital Signs Vital signs: Vital Signs Temperature 98.2 F 09/13/24 12:41 Pulse Rate 126 H 09/13/24 12:41 Respiratory Rate 18 09/13/24 12:41 Blood Pressure 90/76 09/13/24 12:41 Pulse Oximetry 98 09/13/24 12:41 Oxygen Delivery Method Room Air 09/13/24 12:41 Temperature 98.2 F 09/13/24 12:41 Pulse Rate 126 H 09/13/24 12:41 Respiratory Rate 18 09/13/24 12:41 Blood Pressure 90/76 09/13/24 12:41 Pulse Oximetry 98 09/13/24 12:41 Oxygen Delivery Method Room Air 09/13/24 12:41 MDM - Extremity (Nontraumatic) MDM Narrative Medical decision making narrative: X-ray per radiologist shows osteoarthritis. Splint applied, application checked by me and found to be appropriate, he is neurovascularly intact. He is on Coumadin so we will avoid anti-inflammatories and he was prescribed Tylenol 3. Treatment diagnosis and follow-up were discussed with the patient and his son. Differential Diagnosis Differential diagnosis: Likely other (Fracture, arthritis, sprain) Imaging Data Right wrist x-ray: Radiologist's impression: ITS Impressions Wrist X-Ray 09/13/24 13:05 IMPRESSION: Osteoarthritis Electronically authenticated by: SHAHZAD DUARTE Date: 09/13/2024 13:16 Discharge Plan Discharge Chief Complaint: Extremity Problem, Nontraumatic Clinical Impression: Osteoarthritis Patient Disposition: Home, Self-Care Time of Disposition Decision: 13:26 Condition: Good Mode of Transportation: Private Vehicle Prescriptions / Home Meds: New acetaminophen-codeine 300-30 mg tablet 1 tab PO Q6H PRN (Reason: pain) 5 Days Qty: 20 0RF No Action pantoprazole 40 mg tablet,delayed release (DR/EC) 40 mg PO DAILY tamsulosin 0.4 mg capsule 0.4 mg PO Q24H finasteride 5 mg tablet 5 mg PO DAILY empagliflozin 25 mg tablet 12.5 mg PO DAILY atorvastatin 10 mg tablet 10 mg PO QPM Kapspargo Sprinkle 100 mg capsule,sprinkle,ER 24hr 100 mg PO DAILY warfarin 2.5 mg tablet 2.5 mg PO .COMPLEX Rx Instructions: 2.5 mg orally friday, friday, friday and friday; warfarin 5 mg tablet 5 mg PO .COMPLEX Rx Instructions: 5 mg orally friday, and ; brimonidine-timolol 0.2-0.5 % drops 1 drp ophthalmic (eye) QAM latanoprost 0.005 % drops 1 drp ophthalmic (eye) QPM metoclopramide HCl 10 mg tablet 10 mg PO BID levothyroxine [Euthyrox] 50 mcg tablet 50 mcg PO DAILY Print Language: Qatari Instructions: Osteoarthritis (ED) Referrals: Physician,Non-Staff, MD [Primary Care Provider] - 1 week
--- NOTE | 2024-09-13 13:05 | XR_ITS ---
The [address] [address] Patient Name: JULIETTE MORROW MRN: [id number] date: 1940 Sex: M Assigned Patient Location: ER Current Patient Location: ER Accession/Order Number: [id number] Exam Date: 09/13/2024 13:00 Report Date: 09/13/2024 13:16 At the request of: SCARLET RUSSELL Procedure: XR wrist RT min 3V PROCEDURE: XR wrist RT min 3V COMPARISON: None. HISTORY: Atraumatic pain, swelling FINDINGS: BONES:No acute fracture or dislocation. Severe osteoarthritis in the medial carpus with [id number] articulation of the first carpometacarpal joint SOFT TISSUES:Negative. No visible soft tissue swelling. EFFUSION:None visible. OTHER: Negative. XR/XR wrist RT min 3V IMPRESSION: Osteoarthritis Electronically authenticated by: SHAHZAD DUARTE Date: 09/13/2024 13:16
== END 2024-09-13 13:44 | disposition home or self-care (01) ==
PROVIDERS: Emergency Provider Emergency Medicine
DX: M19.031 Primary osteoarthritis, right wrist (principal); Z87.891 Personal history of nicotine dependence; Z79.01 Long term (current) use of anticoagulants
CPT/HCPCS: 73110; 99283

== ENCOUNTER 2024-12-31 07:29 | Emergency (ER) | payer MEDICARE, SELFPAY ==
[2024-12-31] VITALS (25 sets, daily range): BP systolic 86–119; BP diastolic 52–67; PULSE 64–81; TEMP 36.9; O2SAT 86–98; BMI 24.7
--- NOTE | 2024-12-31 07:47 | ECG_ITS ---
The [facility] Test Date: 2024-12-31 Pat Name: JULIETTE MORROW Department: Room: - Gender: Male Claim Examiner: : 1940 Requested By: [id number] Order Number: [id number] Reading MD: SOFIYA HURT M.D. Measurements Intervals Rush Rate: 70 P: -10805 TX: -94665 QRS: -65 QRSD: 126 T: 56 QT: 416 QTc: 436 Interpretive Statements 1210 Atrial fibrillation 2450 Right bundle branch block 3234 Anteroseptal myocardial infarction, age undetermined 3634 Inferior myocardial infarction, age undetermined 9150 abnormal ECG Compared to ECG 06/27/2024 14:15:19 Heart rate has decreased by 58 BPM Myocardial infarct finding still present Electronically Signed On 12-31-2024 15:14:30 EDT by OSFIYA HURT M.D.
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
[2024-12-31] MEDS: 0.9 % SODIUM CHLORIDE 1,000 ML 999 ML IV (07:57)
[2024-12-31 08:10] LABS: Basophils Percent Auto 0.2 % (0.2-2.0); Eosinophils Percent Auto 0.4 % (0.9-7.0); Hematocrit 42.3 % (42.0-54.0); Hemoglobin 13.7 g/dL (14.0-18.0); Immature Granulocytes Abs Auto 0.07 10^3/uL (0.00-0.03); Immature Granulocytes Pct Auto 0.7 % (0.0-0.5); Lymphocytes Absolute Auto 0.8 10^3/uL (1.2-3.8); Lymphocytes Percent Auto 7.1 % (20.5-60.0); Mean Corpuscular HGB Conc 32.4 g/dL (29.9-35.2); Mean Corpuscular Hemoglobin 30.8 pg (25.9-34.0); Mean Corpuscular Volume 95.1 fL (80.0-94.0); Mean Platelet Volume 10.8 fL (9.5-13.5); Monocytes Absolute Auto 0.7 10^3/uL (0.3-0.8); Monocytes Percent Auto 6.9 % (1.7-12.0); Neutrophils Percent Auto 84.7 % (43.0-75.0); Platelet Count 161 10^3/uL (150-450); Red Blood Count 4.45 10^6/uL (4.70-6.10); Red Cell Distribution Width 17.5 % (11.0-15.0); White Blood Count 10.6 10^3/uL (4.0-11.0)
[2024-12-31] MEDS: ONDANSETRON PF 4 MG/2 ML VIAL IV (08:29)
[2024-12-31] MEDS: FAMOTIDINE/PF 20 MG/2 ML VIAL IV (08:29)
[2024-12-31 08:43] LABS: PCO2 VBG 36.4 mmHg (40.0-52.0); pH VBG 7.349 (7.330-7.430)
[2024-12-31 09:04] LABS: Alanine Aminotransferase 133 U/L (16-63); Albumin Globulin Ratio 0.8; Alkaline Phosphatase 106 U/L (46-116); Anion Gap 14.9; Aspartate Amino Transferase 113 U/L (15-37); BUN Creatinine Ratio 18.6; Bilirubin Total 0.9 mg/dL (0.2-1.0); Calcium 7.9 mg/dL (8.5-10.1); Carbon Dioxide 21.3 mmol/L (21.0-32.0); Chloride 104 mmol/L (98-107); Estimated GFR (African America 46 (>=60 mL/min/1.73m^2); Estimated GFR (Non-African Ame 38 (>=60 mL/min/1.73m^2); Globulin 3.8 g/dL; Glucose 111 mg/dL (74-106); Magnesium 1.7 mg/dL (1.8-2.4); Potassium 3.2 mmol/L (3.5-5.1); Sodium 137 mmol/L (136-145); Total Protein 6.8 g/dL (6.4-8.2)
[2024-12-31 09:06] LABS: Creatine Kinase 132 U/L (39-308); Troponin I High Sensitivity 14.4 pg/mL (4.0-76.1)
[2024-12-31 09:22] LABS: INR 2.97; Prothrombin Time 28.3 sec (9.0-11.6)
[2024-12-31] MEDS: MAGNESIUM SULFATE IN WATER 2 GM/50 ML PREMIX IV (09:30)
[2024-12-31] MEDS: POTASSIUM BICARBONATE/CIT 25 MEQ TABLET EFF 50 MEQ PO (09:31)
[2024-12-31] MEDS: BACITRACIN 0.9 GM PACKET 1 PACKET TOPICAL (09:42)
[2024-12-31] MEDS: CALCIUM GLUC IN NACL, ISO-OSM 1 GM/50 ML PLAST..BAG IV (10:18)
--- NOTE | 2024-12-31 12:01 | SWNOTE1 ---
SW received call from ED and doctor requesting SW come speak with pt's son, concerns about his confusion. SW spoke with pt and son in room. Pt's son voiced he was acting strange this morning and had a hard time understanding his speech. Pt's son stated he does have [facility] services coming, nurse, SW, aide, and therapy coming in. Pt's son was concerned about what was going on with him. SW had conversation with pt, he was aware that he was at [facility] and that his son brought him in. Pt voiced he has been sick for a few days. Pt's speech was understandable, but once he spoke long sentences, it was harder to understand. After conversation with pt, SW asked son how he felt about it? He voiced it was better than when he first came in. SW did let him know that if he was admitted and agreed to rehab, it may be hard to get approval as he was walking with walker down in ED to show doctor. LORY recommended reaching out to the [facility] to see if they could increase services coming in. LORY also mentioned private caregivers. Pt's son stated him and his sister will be talking about him moving in with one of them, but have not had a chance to do that yet. At this point pt's son does not have any further questions for SW. LORY updated doctor.
== END 2024-12-31 13:19 | disposition home or self-care (01) ==
PROVIDERS: Emergency Provider Emergency Medicine
DX: E87.6 Hypokalemia (principal); E83.42 Hypomagnesemia; E83.51 Hypocalcemia; R11.2 Nausea with vomiting, unspecified; R53.1 Weakness; Z79.01 Long term (current) use of anticoagulants; Z87.891 Personal history of nicotine dependence; N18.9 Chronic kidney disease, unspecified; I48.20 Chronic atrial fibrillation, unspecified; T14.8XXA Other injury of unspecified body region, initial encounter; W18.39XA Other fall on same level, initial encounter
CPT/HCPCS: 36415; 70450; 71045; 80053; 81001; 82550; 82800; 83735; 84484; 85025; 85610; 93005; 96361; 96365; 96368; 96375; 99285; J0613; J2405; J3475; J3490

== ENCOUNTER 2025-06-21 07:34 | Inpatient (IN) | payer OTHER, SELFPAY ==
[2025-06-21] VITALS (16 sets, daily range): BP systolic 134–146; BP diastolic 87–104; PULSE 71–108; TEMP 35.9–36.8; O2SAT 91–99; BMI 21.3; BMI 22.5
--- NOTE | 2025-06-21 07:53 | ECG_ITS ---
[facility] Test Date: 2025-06-21 Pat Name: JULIETTE MORROW Department: Room: - Gender: Male Manager Hiv: : 1940 Requested By: [id number] Order Number: [id number] Reading MD: DEMETRI NAVAS Measurements Intervals [place] Rate: 84 P: -[id number] HI: -74983 QRS: -69 QRSD: 132 T: 85 QT: 424 QTc: 465 Interpretive Statements 80281 Atrial fibrillation with aberrant conduction, or ventricular premature complexes 2450 Right bundle branch block 3124 Possible anterior myocardial infarction, age undetermined 3634 Inferior myocardial infarction, age undetermined 9150 abnormal ECG Compared to ECG 12/31/2024 07:40:45 Ventricular premature complex(es) now present Aberrant conduction of supraventricular beat(s) now present Atrial fibrillation still present Myocardial infarct finding still present Electronically Signed On 06-21-2025 12:27:51 EDT by DEMETRI NAVAS
[2025-06-21 08:22] LABS: Hematocrit 40.0 % (42.0-54.0); Hemoglobin 13.1 g/dL (14.0-18.0); Immature Granulocytes Abs Auto 0.04 10^3/uL (0.00-0.03); Immature Granulocytes Pct Auto 0.4 % (0.0-0.5); Lymphocytes Absolute Auto 0.8 10^3/uL (1.2-3.8); Mean Corpuscular HGB Conc 32.8 g/dL (29.9-35.2); Mean Corpuscular Hemoglobin 32.3 pg (25.9-34.0); Mean Corpuscular Volume 98.5 fL (80.0-94.0); Platelet Count 141 10^3/uL (150-450); Red Blood Count 4.06 10^6/uL (4.70-6.10); White Blood Count 9.4 10^3/uL (4.0-11.0)
--- NOTE | 2025-06-21 08:30 | XR_ITS ---
[facility] [place] [id number] Patient Name: JULIETTE MORROW MRN: [id number] date: 1940 Sex: M Assigned Patient Location: ED.MAIN Current Patient Location: ED.MAIN Accession/Order Number: [id number] Exam Date: 06/21/2025 08:20 Report Date: 06/21/2025 08:41 At the request of: ADRIA TREJO MD Procedure: XR chest 1V Single view chest: CLINICAL HISTORY: sob COMPARISON: None FINDINGS: Cardiomegaly with vascular congestion, interstitial change and moderate bilateral pleural effusions. No pneumothorax or free air. Questionable developing right upper lobe airspace disease. XR/XR chest 1V IMPRESSION: CHF FINDINGS. SUPERIMPOSED PNEUMONIA INVOLVING THE RIGHT UPPER LOBE CANNOT BE EXCLUDED. Impression dictated by: Issa Martinez Jr., D.OSatya 06/21/2025 8:41 AM Dictation Location: [place] [address] Electronically authenticated by: [id number] Y Date: 06/21/2025 08:41
--- OUTSIDE RECORDS SUMMARY | 2025-06-21 08:42 | XMS_ITS | Clinical Summary ---
Author Organization [facility] Address [id number] [place] [address] Care Team Providers Care Federal Judicial Law Clerk Name Role Phone Mable Corona MD Primary Care Provider [phone] Social History Tobacco Use Types Packs/Day Years Used Date Smoking Tobacco: Never Assessed Sex and Gender Information Value Date Recorded Sex Assigned at Not on file Legal Sex Male 11:16 AM EST Gender Identity Not on file Sexual Orientation Not on file Plan of Treatment Health Maintenance Due Date Last Done Comments Depression Screening 1952 Tobacco Screening 1952 DTaP,Tdap and Td Vaccines (1 - Tdap) 01/15/1960 Zoster (Shingles) Vaccine (1 of 2) 1991 Fall Risk Screening 2006 COVID-19 Vaccine (2024-2 6 season) 2025 12/05/2020, 11/06/2020 Influenza Vaccine 05/30/2025 07/31/2023, , 08/19/2009 Medical Devices Not on file Care Teams [employer] Law Clerk Relationship Specialty Start Date End Date Mable Corona MD PCP - General Family Medicine 08/16/21
--- OUTSIDE RECORDS SUMMARY | 2025-06-21 08:42 | XMS_ITS | Clinical Summary ---
Author Organization [facility] Address [address] [place] [address] Phone Care Team Providers Care Gastroenterologist Name Role Phone Unavailable Primary Care Provider Unavailabl e Social History Tobacco Use Types Packs/Day Years Used Date Smoking Tobacco: Never Assessed Sex and Gender Information Value Date Recorded Sex Assigned at Not on file Legal Sex Male 9:12 AM EST Gender Identity Not on file Sexual Orientation Not on file Plan of Treatment Not on file
--- OUTSIDE RECORDS SUMMARY | 2025-06-21 08:42 | XMS_ITS | Clinical Summary ---
Author Organization [facility] Address [address] [facility] [place] [address] Care Team Providers Care Blanket Winder Helper Name Role Phone Aurelio Gates MD Unavailable [phone] Mable Corona MD Primary Care Provider [phone] Social History Tobacco Use Types Packs/Day Years Used Date Smoking Tobacco: Never Assessed Sex and Gender Information Value Date Recorded Sex Assigned at Not on file Legal Sex Male 7:18 PM EDT Gender Identity Not on file Sexual Orientation Not on file Plan of Treatment Health Maintenance Due Date Last Done Comments Medicare Annual Wellness (AWV) 1940 Influenza Vaccine (#1) 2025 , 07/31/2023, 06/28/2022, Additional history exists Pneumococcal Vaccine: 65+ Years Completed 05/23/2025, 10/25/2016, 06/21/2015, Additional history exists Insurance [employer] Care Teams Blanket Winder Helper Relationship Specialty Start Date End Date Aurelio Gates MD [address] [facility] [address] [place] [address] PCP - Arely MCKEON 09/29/21 Mable Corona MD [address] [place] [address] PCP - General Family Medicine 06/16/25
[2025-06-21 08:45] LABS: Alanine Aminotransferase 44 U/L (16-63); Albumin Globulin Ratio 0.6; Albumin Level 3.0 g/dL (3.4-5.0); Alkaline Phosphatase 166 U/L (46-116); Anion Gap 15.4; Aspartate Amino Transferase 41 U/L (15-37); Blood Urea Nitrogen 29.0 mg/dL (7.0-18.0); Calcium 8.7 mg/dL (8.5-10.1); Carbon Dioxide 22.1 mmol/L (21.0-32.0); Chloride 106 mmol/L (98-107); Estimated GFR (African America >60 (>=60 mL/min/1.73m^2); Estimated GFR (Non-African Ame >60 (>=60 mL/min/1.73m^2); Globulin 4.8 g/dL; Glucose 145 mg/dL (74-106); INR 2.87; Potassium 3.5 mmol/L (3.5-5.1); Prothrombin Time 27.4 sec (9.0-11.6); Sodium 140 mmol/L (136-145); Total Protein 7.8 g/dL (6.4-8.2)
--- OUTSIDE RECORDS SUMMARY | 2025-06-21 08:45 | XMS_ITS | CCD ---
Author Organization [facility] Care Team Providers Care Residential Sales Rep Name Role Phone Yves Sanford Unavailable MD Ivan Lopez Primary Care Provider BERNADINE Rivero Emergency Provider [phone] RONALD, DR ACEVEDO Primary Care Unavailable KEITH [...] RUSSELL Attending Unavailable Ajit Rivero Attending Unavailable Aijt Rivero Admitting Unavailable Ivan Lopez Primary Care Unavailable YANA RUEDA Referring Unavailable YANA RUEDA Primary Care Unavailable YANA RUEDA Referring Unavailable YANA RUEDA Primary Care Unavailable YANA RUEDA Referring Unavailable YANA RUEDA Primary Care Unavailable Allergies Allergy Classification Reported Allergen(s) Allergy Type Date of Onset Reaction(s) Facility (2 sources) Ondansetron; Translations: [ondansetron] Drug Allergy 01-10-2023 [facility] (1 source) Ondansetron Drug Allergy 11-19-2022 [facility] Repository Medications Current Medications Medication Drug Class(es) [...] Onset: 02-11-2023 Episodic Other aftercare (1 source) senior living (current) use of anticoagulants; Translations: [SKILLED NURSING CURRNT USE ANTICOAGULANTS] Onset: 02-11-2023 Episodic Other aftercare (1 source) Other halfway (current) drug therapy; Translations: [OTH SKILLED NURSING CURRENT DRUG THERAPY] Onset: 02-11-2023 Episodic Other [...] Facil ity Lab Reportson 03-17-2023 Lab Reports [id number] Normal [facility] STOOL CULTUREon 11-26-2022 Campylobacter Culture Final report Normal [facility] Comment on above: Performed By: #### C XSTOOL #### [facility] [address] [place] [address] Dr. Itzel Lerma E coli Shiga Toxin EIA Negative Normal Negative [facility] Comment on above: Performed By: #### C XSTOOL #### [facility] [address] [place] [address] Dr. Itzel Lerma Result 1 Comment Normal [facility] Comment on above: Result Comment: No S almonella or Shigella recovered. Performed By: #### C XSTOOL #### [facility] [address] [address] [address] Itzel Lerma Result Comment: No C ampylobacter species isolated. Salmonella/Shigella Screen Final report Normal [facility] Comment on above: Performed By: #### C XSTOOL #### [facility] [address] [address] [address] Itzel Lrema BNPon 11-24-2022 Natriuretic peptide B (Bld) [Mass/Vol] 1615.0 pg/mL Normal <=1,800.0 [facility] Comment on above: Performed By: #### O JESSE #### [facility] [address] [place] [address] Dr. Itzel Lerma CBC AUTO DIFFon 11-24-2022 BASO # 0.0 103/ul Normal 0.0-0.1 [facility] Comment on above: Performed By: #### C XSTOOL #### [facility] [address] [place] [address] Dr. Itzel Lerma Basophils/100 WBC (Bld) 0.5 % Normal 0.2-2.0 [facility] Comment on above: Performed By: #### C XSTOOL #### [facility] [address] [place] [address] Dr. Itzel Lerma EO # 0.1 103/ul Normal 0.0-0.7 [facility] Comment on above: Performed By: #### C XSTOOL #### [facility] [address] [place] [address] Dr. Itzel Lerma Eosinophils/100 WBC (Bld) 1.4 % Normal 0.9-7.0 [facility] Comment on above: Performed By: #### C XSTOOL #### [facility] [address] [place] [address] Dr. Itzel Lerma Erythrocyte distribution width (RBC) [Ratio] 16.1 % Critically high 11.0-15.0 [facility] Comment on above: Performed By: #### C XSTOOL #### [facility] [address] [place] [address] Dr. Itzel Lerma Hematocrit (Bld) [Volume fraction] 44.1 % Normal 42.0-54.0 [facility] Comment on above: Performed By: #### C XSTOOL #### [facility] [address] [place] [address] Dr. Itzel Lerma Hemoglobin (Bld) [Mass/Vol] 13.9 g/dL Critically low 14.0-18.0 [facility] Comment on above: Performed By: #### C XSTOOL #### [facility] [address] [place] [address] Dr. Itzel Lerma IG # 0.03 10e3/ul Normal 0.00-0.03 [facility] Comment on above: Performed By: #### C XSTOOL #### [facility] [address] [place] [address] Dr. Itzel Lerma IG % 0.5 % Normal 0.0-0.5 [facility] Comment on above: Performed By: #### C XSTOOL #### [facility] [address] [address] [address] Itzel Lerma LYMPH # 0.9 103/ul Critically low 1.2-3.8 [facility] Comment on above: Performed By: #### C XSTOOL #### [facility] [address] [place] [address] Dr. Itzel Lerma Lymphocytes/100 WBC (Bld) 14.4 % Critically low 20.5-60.0 [facility] Comment on above: Performed By: #### C XSTOOL #### [facility] [address] [place] [address] Dr. Itzel Lerma MANUAL DIFF REQ NO Normal [facility] Comment on above: Performed By: #### C XSTOOL #### [facility] [address] [place] [address] Dr. Itzel Lerma MCH (RBC) [Entitic mass] 27.5 pg Normal 25.9-34.0 [facility] Comment on above: Performed By: #### C XSTOOL #### [facility] [address] [place] [address] Dr. Itzel Lerma MCHC (RBC) [Mass/Vol] 31.5 g/dL Normal 29.9-35.2 [facility] Comment on above: Performed By: #### C XSTOOL #### [facility] [address] [place] [address] Dr. Itzel Lerma MCV (RBC) [Entitic vol] 87.3 fL Normal 80.0-94.0 [facility] Comment on above: Performed By: #### C XSTOOL #### [facility] [address] [place] [address] Dr. Itzel Lerma MONO # 0.7 103/ul Normal 0.3-0.8 [facility] Comment on above: Performed By: #### C XSTOOL #### [facility] [address] [place] [address] Dr. Itzel Lerma Monocytes/100 WBC (Bld) 10.6 % Normal 1.7-12.0 [facility] Comment on above: Performed By: #### C XSTOOL #### [facility] [address] [place] [address] Dr. Itzel Lerma NEUT # 4.6 103/ul Normal 1.4-6.5 [facility] Comment on above: Performed By: #### C XSTOOL #### [facility] [address] [place] [address] Dr. Itzel Lerma Neutrophils/100 WBC (Bld) 72.6 % Normal 43.0-75.0 [facility] Comment on above: Performed By: #### C XSTOOL #### [facility] [address] [place] [address] Dr. Itzel Lerma Platelet mean volume (Bld) [Entitic vol] 10.3 fL Normal 9.5-13.5 [facility] Comment on above: Performed By: #### C XSTOOL #### [facility] [address] [place] [address] Dr. Itzel Lerma PLT 279 103/ul Normal 150-450 [facility] Comment on above: Performed By: #### C XSTOOL #### [facility] [address] [place] [address] Dr. Itzel Lerma RBC 5.05 106/ul Normal 4.70-6.10 [facility] Comment on above: Performed By: #### C XSTOOL #### [facility] [address] [place] [address] Dr. Itzel Lerma WBC 6.3 103/ul Normal 4.0-11.0 [facility] Comment on above: Performed By: #### C XSTOOL #### [facility] [address] [place] [address] Dr. Itzel Lerma PROF CHEM 8 (BAS METB)on Anion gap [Moles/Vol] 15.8 mmol/L Normal [facility] Comment on above: Performed By: #### O JESSE #### [facility] [address] [address] [address] Itzel Lerma Calcium [Mass/Vol] 9.1 mg/dL Normal 8.5-10.1 [facility] Comment on above: Performed By: #### O JESSE #### [facility] [address] [address] [address] Itzel Lerma Chloride [Moles/Vol] 102 mmol/L Normal 98-107 [facility] Comment on above: Performed By: #### O JESSE #### [facility] [address] [place] [address] Dr. Itzel Lerma CO2 [Moles/Vol] 19.7 mmol/L Critically low 21.0-32.0 [facility] Comment on above: Performed By: #### O JESSE #### [facility] [address] [place] [address] Dr. Itzel Lerma Creatinine [Mass/Vol] 1.76 mg/dL Critically high 0.70-1.30 [facility] Comment on above: Performed By: #### O JESSE #### [facility] [address] [place] [address] Dr. Itzel Lerma EGFR-AF SAMOAN 45 mL/min/1.73m2 Critically low >=60 [facility] Comment on above: Performed By: #### O JESSE #### [facility] [address] [place] [address] Dr. Itzel Lerma EGFR-NON AF SAMOAN 37 mL/min/1.73m2 Critically low >=60 [facility] Comment on above: Performed By: #### O JESSE #### [facility] [address] [place] [address] Dr. Itzel Lerma Glucose [Mass/Vol] 139 mg/dL Critically high 74-106 [facility] Comment on above: Performed By: #### O JESSE #### [facility] [address] [place] [address] Dr. Itzel Lerma Potassium [Moles/Vol] 4.5 mmol/L Normal 3.5-5.1 [facility] Comment on above: Performed By: #### O JESSE #### [facility] [address] [place] [address] Dr. Itzel Lerma Sodium [Moles/Vol] 133 mmol/L Critically low 136-145 [facility] Comment on above: Performed By: #### O JESSE #### [facility] [address] [address] [address] Itzel Lerma Urea nitrogen [Mass/Vol] 53.0 mg/dL Critically high 7.0-18.0 [facility] Comment on above: Performed By: #### O JESSE #### [facility] [address] [place] [address] Dr. Itzel Lerma Urea nitrogen/Creatinine [Mass ratio] 30.1 mg/mg Normal [facility] Comment on above: Performed By: #### O JESSE #### [facility] [address] [place] [address] Dr. Itzel Lerma PROTIMEon 11-24-2022 INR Coag (PPP) [Relative time] 3.98 {INR} Normal [facility] Comment on above: Performed By: #### U A #### [facility] [address] [place] [address] Dr. Itzel Lerma INR GUIDELINES SEE BELOW Normal [facility] Comment on above: Result Comment: MIKAL RED INR: 2.0 - 3.0 CONDITIONS NOT LISTED BELOW 2.5 - 3.5 FOR PROSTHETIC HEART VALVE REPLACEMENT 2.5 - 3.5 RECURRENT THROMBOSIS Performed By: #### U A #### [facility] [address] [place] [address] Dr. Itzel Lerma PT Coag (PPP) [Time] 39.0 s Critically high 9.0-11.6 [facility] Comment on above: Performed By: #### U A #### [facility] [address] [place] [address] Dr. Itzel Lerma PTTon 11-24-2022 aPTT Coag (Bld) [Time] 44.8 s Critically high 22.3-36.2 [facility] Comment on above: Performed By: #### U A #### [facility] [address] [address] [address] Itzle Lerma XR KUB 1 VIEWon 11-24-2022 XR [...] WILSON JOHN Date: 2022-11-24 07:43 Normal [facility] CBC AUTO DIFFon 11-23-2022 BASO # 0.0 103/ul Normal 0.0-0.1 [facility] Comment on above: Performed By: #### O SMO #### [facility] [address] [place] [address] Dr. Itzel Lerma Basophils/100 WBC (Bld) 0.3 % Normal 0.2-2.0 [facility] Comment on above: Performed By: #### O SMO #### [facility] [address] [place] [address] Dr. Itzel Lerma EO # 0.1 103/ul Normal 0.0-0.7 [facility] Comment on above: Performed By: #### O SMO #### [facility] [address] [address] [address] Itzel Lerma Eosinophils/100 WBC (Bld) 1.6 % Normal 0.9-7.0 [facility] Comment on above: Performed By: #### O SMO #### [facility] [address] [place] [address] Dr. Itzel Lerma Erythrocyte distribution width (RBC) [Ratio] 15.9 % Critically high 11.0-15.0 [facility] Comment on above: Performed By: #### O SMO #### [facility] [address] [address] [address] Itzel Lerma Hematocrit (Bld) [Volume fraction] 42.4 % Normal 42.0-54.0 [facility] Comment on above: Performed By: #### O SMO #### [facility] [address] [address] [address] Itzel Lerma Hemoglobin (Bld) [Mass/Vol] 13.1 g/dL Critically low 14.0-18.0 [facility] Comment on above: Performed By: #### O SMO #### [facility] [address] [address] [address] Itzel Lerma IG # 0.04 10e3/ul Critically high 0.00-0.03 [facility] Comment on above: Performed By: #### O SMO #### [facility] [address] [address] [address] Itzel Lerma IG % 0.7 % Critically high 0.0-0.5 [facility] Comment on above: Performed By: #### O SMO #### [facility] [address] [address] [address] Itzel Lerma LYMPH # 0.9 103/ul Critically low 1.2-3.8 [facility] Comment on above: Performed By: #### O SMO #### [facility] [address] [address] [address] Itzel Lerma Lymphocytes/100 WBC (Bld) 15.6 % Critically low 20.5-60.0 [facility] Comment on above: Performed By: #### O SMO #### [facility] [address] [address] [address] Itzel Lerma MANUAL DIFF REQ NO Normal [facility] Comment on above: Performed By: #### O SMO #### [facility] [address] [place] [address] Dr. Itzel Lerma MCH (RBC) [Entitic mass] 27.5 pg Normal 25.9-34.0 [facility] Comment on above: Performed By: #### O SMO #### [facility] [address] [address] [address] Itzel Lerma MCHC (RBC) [Mass/Vol] 30.9 g/dL Normal 29.9-35.2 [facility] Comment on above: Performed By: #### O SMO #### [facility] [address] [place] [address] Dr. Itzel Lerma MCV (RBC) [Entitic vol] 88.9 fL Normal 80.0-94.0 [facility] Comment on above: Performed By: #### O SMO #### [facility] [address] [place] [address] Dr. Itzel Lerma MONO # 0.7 103/ul Normal 0.3-0.8 [facility] Comment on above: Performed By: #### O SMO #### [facility] [address] [place] [address] Dr. Itzel Lerma Monocytes/100 WBC (Bld) 12.1 % Critically high 1.7-12.0 [facility] Comment on above: Performed By: #### O SMO #### [facility] [address] [place] [address] Dr. Itzel Lerma NEUT # 4.0 103/ul Normal 1.4-6.5 [facility] Comment on above: Performed By: #### O SMO #### [facility] [address] [place] [address] Dr. Itzel Lerma Neutrophils/100 WBC (Bld) 69.7 % Normal 43.0-75.0 [facility] Comment on above: Performed By: #### O SMO #### [facility] [address] [place] [address] Dr. Itzel Lerma Platelet mean volume (Bld) [Entitic vol] 10.6 fL Normal 9.5-13.5 [facility] Comment on above: Performed By: #### O SMO #### [facility] [address] [place] [address] Dr. Itzel Lerma PLT 200 103/ul Normal 150-450 [facility] Comment on above: Performed By: #### O SMO #### [facility] [address] [address] [address] Itzel Lerma RBC 4.77 106/ul Normal 4.70-6.10 [facility] Comment on above: Performed By: #### O SMO #### [facility] [address] [place] [address] Dr. Itzel Lerma WBC 5.8 103/ul Normal 4.0-11.0 [facility] Comment on above: Performed By: #### O SMO #### [facility] [address] [place] [address] Dr. Itzel Lerma PROF CHEM 8 (BAS METB)on Anion gap [Moles/Vol] 14.3 mmol/L Normal [facility] Comment on above: Performed By: #### O SMO #### [facility] [address] [place] [address] Dr. Itzel Lerma Calcium [Mass/Vol] 9.1 mg/dL Normal 8.5-10.1 [facility] Comment on above: Performed By: #### O SMO #### [facility] [address] [place] [address] Dr. Itzel Lerma Chloride [Moles/Vol] 102 mmol/L Normal 98-107 [facility] Comment on above: Performed By: #### O SMO #### [facility] [address] [place] [address] Dr. Itzel Lerma CO2 [Moles/Vol] 21.4 mmol/L Normal 21.0-32.0 [facility] Comment on above: Performed By: #### O SMO #### [facility] [address] [place] [address] Dr. Itzel Lerma Creatinine [Mass/Vol] 1.58 mg/dL Critically high 0.70-1.30 [facility] Comment on above: Performed By: #### O SMO #### [facility] [address] [place] [address] Dr. Itzel Lerma EGFR-AF SAMOAN 51 mL/min/1.73m2 Critically low >=60 [facility] Comment on above: Performed By: #### O SMO #### [facility] [address] [address] [address] Itzel Lerma EGFR-NON AF SAMOAN 42 mL/min/1.73m2 Critically low >=60 [facility] Comment on above: Performed By: #### O SMO #### [facility] [address] [address] [address] Itzel Lerma Glucose [Mass/Vol] 125 mg/dL Critically high 74-106 [facility] Comment on above: Performed By: #### O SMO #### [facility] [address] [address] [address] Itzel Lerma Potassium [Moles/Vol] 4.7 mmol/L Normal 3.5-5.1 [facility] Comment on above: Performed By: #### O SMO #### [facility] [address] [address] [address] Itzel Lerma Sodium [Moles/Vol] 133 mmol/L Critically low 136-145 [facility] Comment on above: Performed By: #### O SMO #### [facility] [address] [address] [address] Itzel Lerma Urea nitrogen [Mass/Vol] 45.0 mg/dL Critically high 7.0-18.0 [facility] Comment on above: Performed By: #### O SMO #### [facility] [address] [address] [address] Itzel Lerma Urea nitrogen/Creatinine [Mass ratio] 28.5 mg/mg Normal [facility] Comment on above: Performed By: #### O SMO #### [facility] [address] [address] [address] Itzel Lerma PROTIMEon 11-23-2022 INR Coag (PPP) [Relative time] 4.89 {INR} Critically high [facility] Comment on above: Performed By: #### P T #### [facility] [address] [address] [address] Itzel Lerma INR GUIDELINES SEE BELOW Normal [facility] Comment on above: Result Comment: MIKAL RED INR: 2.0 - 3.0 CONDITIONS NOT LISTED BELOW 2.5 - 3.5 FOR PROSTHETIC HEART VALVE REPLACEMENT 2.5 - 3.5 RECURRENT THROMBOSIS Performed By: #### P T #### [facility] [address] [place] [address] Dr. Itzel Lerma PT Coag (PPP) [Time] 47.4 s Critically high 9.0-11.6 [facility] Comment on above: Performed By: #### P T #### [facility] [address] [place] [address] Dr. Itzel Lerma CBC AUTO DIFFon 11-22-2022 BASO # 0.0 103/ul Normal 0.0-0.1 [facility] Comment on above: Performed By: #### C BC #### [facility] [address] [place] [address] Dr. Itzel Lerma Basophils/100 WBC (Bld) 0.4 % Normal 0.2-2.0 [facility] Comment on above: Performed By: #### C BC #### [facility] [address] [place] [address] Dr. Itzel Lerma EO # 0.1 103/ul Normal 0.0-0.7 [facility] Comment on above: Performed By: #### C BC #### [facility] [address] [place] [address] Dr. Itzel Lerma Eosinophils/100 WBC (Bld) 1.4 % Normal 0.9-7.0 [facility] Comment on above: Performed By: #### C BC #### [facility] [address] [place] [address] Dr. Itzel Lerma Erythrocyte distribution width (RBC) [Ratio] 16.3 % Critically high 11.0-15.0 [facility] Comment on above: Performed By: #### C BC #### [facility] [address] [place] [address] Dr. Itzel Lerma Hematocrit (Bld) [Volume fraction] 41.1 % Critically low 42.0-54.0 [facility] Comment on above: Performed By: #### C BC #### [facility] [address] [place] [address] Dr. Itzel Lerma Hemoglobin (Bld) [Mass/Vol] 12.5 g/dL Critically low 14.0-18.0 [facility] Comment on above: Performed By: #### C BC #### [facility] [address] [place] [address] Dr. Itzel Lerma IG # 0.03 10e3/ul Normal 0.00-0.03 [facility] Comment on above: Performed By: #### C BC #### [facility] [address] [place] [address] Dr. Itzel Lerma IG % 0.4 % Normal 0.0-0.5 [facility] Comment on above: Performed By: #### C BC #### [facility] [address] [place] [address] Dr. Itzel eLrma LYMPH # 1.0 103/ul Critically low 1.2-3.8 [facility] Comment on above: Performed By: #### C BC #### [facility] [address] [place] [address] Dr. Itzel Lerma Lymphocytes/100 WBC (Bld) 14.3 % Critically low 20.5-60.0 [facility] Comment on above: Performed By: #### C BC #### [facility] [address] [place] [address] Dr. Itzel Lerma MANUAL DIFF REQ NO Normal [facility] Comment on above: Performed By: #### C BC #### [facility] [address] [place] [address] Dr. Itzel Lerma MCH (RBC) [Entitic mass] 27.4 pg Normal 25.9-34.0 [facility] Comment on above: Performed By: #### C BC #### [facility] [address] [place] [address] Dr. Itzel Lerma MCHC (RBC) [Mass/Vol] 30.4 g/dL Normal 29.9-35.2 [facility] Comment on above: Performed By: #### C BC #### [facility] [address] [place] [address] Dr. Itzel Lerma MCV (RBC) [Entitic vol] 89.9 fL Normal 80.0-94.0 [facility] Comment on above: Performed By: #### C BC #### [facility] [address] [place] [address] Dr. Itzel Lerma MONO # 0.8 103/ul Normal 0.3-0.8 [facility] Comment on above: Performed By: #### C BC #### [facility] [address] [place] [address] Dr. Itzel Lerma Monocytes/100 WBC (Bld) 11.1 % Normal 1.7-12.0 [facility] Comment on above: Performed By: #### C BC #### [facility] [address] [place] [address] Dr. Itzel Lerma NEUT # 5.2 103/ul Normal 1.4-6.5 [facility] Comment on above: Performed By: #### C BC #### [facility] [address] [place] [address] Dr. Itzel Lerma Neutrophils/100 WBC (Bld) 72.4 % Normal 43.0-75.0 [facility] Comment on above: Performed By: #### C BC #### [facility] [address] [place] [address] Dr. Itzel Lerma Platelet mean volume (Bld) [Entitic vol] 10.1 fL Normal 9.5-13.5 [facility] Comment on above: Performed By: #### C BC #### [facility] [address] [place] [address] Dr. Itzel Lerma PLT 210 103/ul Normal 150-450 [facility] Comment on above: Performed By: #### C BC #### [facility] [address] [place] [address] Dr. Itzel Lerma RBC 4.57 106/ul Critically low 4.70-6.10 [facility] Comment on above: Performed By: #### C BC #### [facility] [address] [place] [address] Dr. Itzel Lerma WBC 7.2 103/ul Normal 4.0-11.0 [facility] Comment on above: Performed By: #### C BC #### [facility] [address] [address] [address] Itzel Lerma PROF CHEM 8 (BAS METB)on Anion gap [Moles/Vol] 13.8 mmol/L Normal [facility] Comment on above: Performed By: #### O SMO #### [facility] [address] [place] [address] Dr. Itzel Lerma Calcium [Mass/Vol] 8.7 mg/dL Normal 8.5-10.1 [facility] Comment on above: Performed By: #### O SMO #### [facility] [address] [place] [address] Dr. Itzel Lerma Chloride [Moles/Vol] 102 mmol/L Normal 98-107 [facility] Comment on above: Performed By: #### O SMO #### [facility] [address] [place] [address] Dr. Itzel Lerma CO2 [Moles/Vol] 20.6 mmol/L Critically low 21.0-32.0 [facility] Comment on above: Performed By: #### O SMO #### [facility] [address] [place] [address] Dr. Itzel Lerma Creatinine [Mass/Vol] 1.49 mg/dL Critically high 0.70-1.30 [facility] Comment on above: Performed By: #### O SMO #### [facility] [address] [place] [address] Dr. Itzel Lerma EGFR-AF SAMOAN 55 mL/min/1.73m2 Critically low >=60 [facility] Comment on above: Performed By: #### O SMO #### [facility] [address] [place] [address] Dr. Itzel Lerma EGFR-NON AF SAMOAN 45 mL/min/1.73m2 Critically low >=60 [facility] Comment on above: Performed By: #### O SMO #### [facility] [address] [place] [address] Dr. Itzel Lerma Glucose [Mass/Vol] 105 mg/dL Normal 74-106 [facility] Comment on above: Performed By: #### O SMO #### [facility] [address] [address] [address] Itzel Lerma Potassium [Moles/Vol] 4.4 mmol/L Normal 3.5-5.1 [facility] Comment on above: Performed By: #### O SMO #### [facility] [address] [address] [address] Itzel Lerma Sodium [Moles/Vol] 132 mmol/L Critically low 136-145 [facility] Comment on above: Performed By: #### O SMO #### [facility] [address] [address] [address] Itzel Lerma Urea nitrogen [Mass/Vol] 47.0 mg/dL Critically high 7.0-18.0 [facility] Comment on above: Performed By: #### O SMO #### [facility] [address] [place] [address] Dr. Itzel Lerma Urea nitrogen/Creatinine [Mass ratio] 31.5 mg/mg Normal [facility] Comment on above: Performed By: #### O SMO #### [facility] [address] [place] [address] Dr. Itzel Lerma PROTIMEon 11-22-2022 INR Coag (PPP) [Relative time] 5.94 {INR} Critically high [facility] Comment on above: Performed By: #### C BC #### [facility] [address] [place] [address] Dr. Itzel Lerma INR GUIDELINES SEE BELOW Normal [facility] Comment on above: Result Comment: MIKAL RED INR: 2.0 - 3.0 CONDITIONS NOT LISTED BELOW 2.5 - 3.5 FOR PROSTHETIC HEART VALVE REPLACEMENT 2.5 - 3.5 RECURRENT THROMBOSIS Performed By: #### C BC #### [facility] [address] [place] [address] Dr. Itzel Lerma PT Coag (PPP) [Time] 56.9 s Critically high 9.0-11.6 [facility] Comment on above: Performed By: #### C BC #### [facility] [address] [place] [address] Dr. Itzel Lerma XR KUB 1 VIEWon [...] DORIAN YODER Date: 2022-11-22 08:06 Normal [facility] CBC AUTO DIFFon 11-21-2022 BASO # 0.0 103/ul Normal 0.0-0.1 [facility] Comment on above: Performed By: #### O JESSE #### [facility] [address] [place] [address] Dr. Itzel Lerma Basophils/100 WBC (Bld) 0.1 % Critically low 0.2-2.0 [facility] Comment on above: Performed By: #### O JESSE #### [facility] [address] [place] [address] Dr. Itzel Lerma EO # 0.1 103/ul Normal 0.0-0.7 [facility] Comment on above: Performed By: #### O JESSE #### [facility] [address] [place] [address] Dr. Itzel Lerma Eosinophils/100 WBC (Bld) 1.5 % Normal 0.9-7.0 [facility] Comment on above: Performed By: #### O JESSE #### [facility] [address] [place] [address] Dr. Itzel Lerma Erythrocyte distribution width (RBC) [Ratio] 16.3 % Critically high 11.0-15.0 [facility] Comment on above: Performed By: #### O JESSE #### [facility] [address] [place] [address] Dr. Itzel Lerma Hematocrit (Bld) [Volume fraction] 42.6 % Normal 42.0-54.0 [facility] Comment on above: Performed By: #### O JESSE #### [facility] [address] [place] [address] Dr. Itzel Lerma Hemoglobin (Bld) [Mass/Vol] 13.3 g/dL Critically low 14.0-18.0 [facility] Comment on above: Performed By: #### O JESSE #### [facility] [address] [place] [address] Dr. Itzel Lerma IG # 0.02 10e3/ul Normal 0.00-0.03 [facility] Comment on above: Performed By: #### O JESSE #### [facility] [address] [place] [address] Dr. Itzel Lerma IG % 0.2 % Normal 0.0-0.5 [facility] Comment on above: Performed By: #### O JESSE #### [facility] [address] [place] [address] Dr. Itzel Lerma LYMPH # 1.0 103/ul Critically low 1.2-3.8 [facility] Comment on above: Performed By: #### O JESSE #### [facility] [address] [place] [address] Dr. Itzel Lerma Lymphocytes/100 WBC (Bld) 12.5 % Critically low 20.5-60.0 [facility] Comment on above: Performed By: #### O JESSE #### [facility] [address] [place] [address] Dr. Itzel Lerma MANUAL DIFF REQ NO Normal [facility] Comment on above: Performed By: #### O JESSE #### [facility] [address] [place] [address] Dr. Itzel Lerma MCH (RBC) [Entitic mass] 27.8 pg Normal 25.9-34.0 [facility] Comment on above: Performed By: #### O JESSE #### [facility] [address] [place] [address] Dr. Itzel Lerma MCHC (RBC) [Mass/Vol] 31.2 g/dL Normal 29.9-35.2 [facility] Comment on above: Performed By: #### O JESSE #### [facility] [address] [place] [address] Dr. Itzel Lerma MCV (RBC) [Entitic vol] 88.9 fL Normal 80.0-94.0 [facility] Comment on above: Performed By: #### O JESSE #### [facility] [address] [place] [address] Dr. Itzel Lerma MONO # 0.9 103/ul Critically high 0.3-0.8 [facility] Comment on above: Performed By: #### O JESSE #### [facility] [address] [place] [address] Dr. Itzel Lerma Monocytes/100 WBC (Bld) 10.6 % Normal 1.7-12.0 [facility] Comment on above: Performed By: #### O JESSE #### [facility] [address] [place] [address] Dr. Itzel Lerma NEUT # 6.1 103/ul Normal 1.4-6.5 [facility] Comment on above: Performed By: #### O JESSE #### [facility] [address] [place] [address] Dr. Itzel Lerma Neutrophils/100 WBC (Bld) 75.1 % Critically high 43.0-75.0 [facility] Comment on above: Performed By: #### O JESSE #### [facility] [address] [place] [address] Dr. Itzel Lerma Platelet mean volume (Bld) [Entitic vol] 9.9 fL Normal 9.5-13.5 [facility] Comment on above: Performed By: #### O JESSE #### [facility] [address] [place] [address] Dr. Itzel Lerma PLT 239 103/ul Normal 150-450 [facility] Comment on above: Performed By: #### O JESSE #### [facility] [address] [place] [address] Dr. Itzel Lerma RBC 4.79 106/ul Normal 4.70-6.10 [facility] Comment on above: Performed By: #### O JESSE #### [facility] [address] [address] [address] Itzel Lerma WBC 8.1 103/ul Normal 4.0-11.0 [facility] Comment on above: Performed By: #### O JESSE #### [facility] [address] [place] [address] Dr. Itzel Lerma PROF CHEM 8 (BAS METB)on Anion gap [Moles/Vol] 15.4 mmol/L Normal [facility] Comment on above: Performed By: #### U A #### [facility] [address] [place] [address] Dr. Itzel Lerma Calcium [Mass/Vol] 8.9 mg/dL Normal 8.5-10.1 [facility] Comment on above: Performed By: #### U A #### [facility] [address] [place] [address] Dr. Itzel Lerma Chloride [Moles/Vol] 102 mmol/L Normal 98-107 [facility] Comment on above: Performed By: #### U A #### [facility] [address] [place] [address] Dr. Itzel Lerma CO2 [Moles/Vol] 18.7 mmol/L Critically low 21.0-32.0 [facility] Comment on above: Performed By: #### U A #### [facility] [address] [place] [address] Dr. Itzel Lerma Creatinine [Mass/Vol] 1.47 mg/dL Critically high 0.70-1.30 [facility] Comment on above: Performed By: #### U A #### [facility] [address] [place] [address] Dr. Itzel Lerma EGFR-AF SAMOAN 56 mL/min/1.73m2 Critically low >=60 [facility] Comment on above: Performed By: #### U A #### [facility] [address] [place] [address] Dr. Itzel Lerma EGFR-NON AF SAMOAN 46 mL/min/1.73m2 Critically low >=60 [facility] Comment on above: Performed By: #### U A #### [facility] [address] [address] [address] Itzel Lerma Glucose [Mass/Vol] 103 mg/dL Normal 74-106 [facility] Comment on above: Performed By: #### U A #### [facility] [address] [id number] Itzel Lerma Potassium [Moles/Vol] 4.1 mmol/L Normal 3.5-5.1 [facility] Comment on above: Performed By: #### U A #### [facility] [address] [address] [address] Itzel Lerma Sodium [Moles/Vol] 132 mmol/L Critically low 136-145 [facility] Comment on above: Performed By: #### U A #### [facility] [address] [address] [address] Itzel Lerma Urea nitrogen [Mass/Vol] 47.0 mg/dL Critically high 7.0-18.0 [facility] Comment on above: Performed By: #### U A #### [facility] [address] [place] [address] Dr. Itzel Lerma Urea nitrogen/Creatinine [Mass ratio] 32.0 mg/mg Normal [facility] Comment on above: Performed By: #### U A #### [facility] [address] [place] [address] Dr. Itzel Lerma XR KUB 1 VIEWon [...] DORIAN YODER Date: 2022-11-21 08:08 Normal [facility] CBC AUTO DIFFon 11-20-2022 BASO # 0.0 103/ul Normal 0.0-0.1 [facility] Comment on above: Performed By: #### O SMO #### [facility] [address] [address] [address] Itzel Lerma Basophils/100 WBC (Bld) 0.3 % Normal 0.2-2.0 [facility] Comment on above: Performed By: #### O SMO #### [facility] [address] [address] [address] Itzel Lerma EO # 0.1 103/ul Normal 0.0-0.7 [facility] Comment on above: Performed By: #### O SMO #### [facility] [address] [place] [address] Dr. Itzel Lerma Eosinophils/100 WBC (Bld) 0.8 % Critically low 0.9-7.0 [facility] Comment on above: Performed By: #### O SMO #### [facility] [address] [address] [address] Itzel Lerma Erythrocyte distribution width (RBC) [Ratio] 16.2 % Critically high 11.0-15.0 [facility] Comment on above: Performed By: #### O SMO #### [facility] [address] [place] [address] Dr. Itzel Lerma Hematocrit (Bld) [Volume fraction] 46.2 % Normal 42.0-54.0 [facility] Comment on above: Performed By: #### O SMO #### [facility] [address] [address] [address] Itzel Lerma Hemoglobin (Bld) [Mass/Vol] 14.2 g/dL Normal 14.0-18.0 [facility] Comment on above: Performed By: #### O SMO #### [facility] [address] [address] [address] Itzel Lerma IG # 0.04 10e3/ul Critically high 0.00-0.03 [facility] Comment on above: Performed By: #### O SMO #### [facility] [address] [place] [address] Dr. Itzel Lerma IG % 0.3 % Normal 0.0-0.5 [facility] Comment on above: Performed By: #### O SMO #### [facility] [address] [place] [address] Dr. Itzel Lerma LYMPH # 1.3 103/ul Normal 1.2-3.8 [facility] Comment on above: Performed By: #### O SMO #### [facility] [address] [place] [address] Dr. Itzel Lerma Lymphocytes/100 WBC (Bld) 10.4 % Critically low 20.5-60.0 [facility] Comment on above: Performed By: #### O SMO #### [facility] [address] [place] [address] Dr. Itzel Lerma MANUAL DIFF REQ NO Normal [facility] Comment on above: Performed By: #### O SMO #### [facility] [address] [place] [address] Dr. Itzel Lerma MCH (RBC) [Entitic mass] 27.6 pg Normal 25.9-34.0 [facility] Comment on above: Performed By: #### O SMO #### [facility] [address] [place] [address] Dr. Itzel Lerma MCHC (RBC) [Mass/Vol] 30.7 g/dL Normal 29.9-35.2 [facility] Comment on above: Performed By: #### O SMO #### [facility] [address] [place] [address] Dr. Itzel Lerma MCV (RBC) [Entitic vol] 89.9 fL Normal 80.0-94.0 [facility] Comment on above: Performed By: #### O SMO #### [facility] [address] [place] [address] Dr. Itzel Lerma MONO # 1.1 103/ul Critically high 0.3-0.8 [facility] Comment on above: Performed By: #### O SMO #### [facility] [address] [address] [address] Itzel Lerma Monocytes/100 WBC (Bld) 9.5 % Normal 1.7-12.0 [facility] Comment on above: Performed By: #### O SMO #### [facility] [address] [address] [address] Itzel Lerma NEUT # 9.5 103/ul Critically high 1.4-6.5 [facility] Comment on above: Performed By: #### O SMO #### [facility] [address] [address] [address] Itzel Lerma Neutrophils/100 WBC (Bld) 78.7 % Critically high 43.0-75.0 [facility] Comment on above: Performed By: #### O SMO #### [facility] [address] [place] [address] Dr. Itzel Lerma Platelet mean volume (Bld) [Entitic vol] 9.6 fL Normal 9.5-13.5 [facility] Comment on above: Performed By: #### O SMO #### [facility] [address] [place] [address] Dr. Itzel Lerma PLT 280 103/ul Normal 150-450 [facility] Comment on above: Performed By: #### O SMO #### [facility] [address] [place] [address] Dr. Itzel Lerma RBC 5.14 106/ul Normal 4.70-6.10 [facility] Comment on above: Performed By: #### O SMO #### [facility] [address] [place] [address] Dr. Itzel Lerma WBC 12.0 103/ul Critically high 4.0-11.0 [facility] Comment on above: Performed By: #### O SMO #### [facility] [address] [place] [address] Dr. Itzel Lerma LACTATE/LACTIC ACIDon 2022 Lactate [Moles/Vol] 0.9 mmol/L Normal 0.4-1.9 [facility] Comment on above: Performed By: #### C BC #### [facility] [address] [address] [address] Itzel Lerma PROF CHEM 8 (BAS METB)on Anion gap [Moles/Vol] 14.9 mmol/L Normal [facility] Comment on above: Performed By: #### B MP #### [facility] [address] [address] [address] Itzel Lerma Calcium [Mass/Vol] 9.7 mg/dL Normal 8.5-10.1 [facility] Comment on above: Performed By: #### B MP #### [facility] [address] [address] [address] Itzel Lerma Chloride [Moles/Vol] 99 mmol/L Normal 98-107 [facility] Comment on above: Performed By: #### B MP #### [facility] [address] [address] [address] Itzel Lerma CO2 [Moles/Vol] 22.7 mmol/L Normal 21.0-32.0 [facility] Comment on above: Performed By: #### B MP #### [facility] [address] [address] [address] Itzel Lerma Creatinine [Mass/Vol] 2.07 mg/dL Critically high 0.70-1.30 [facility] Comment on above: Performed By: #### B MP #### [facility] [address] [address] [address] Itzel Lerma EGFR-AF SAMOAN 38 mL/min/1.73m2 Critically low >=60 [facility] Comment on above: Performed By: #### B MP #### [facility] [address] [address] [address] Itzel Lerma EGFR-NON AF SAMOAN 31 mL/min/1.73m2 Critically low >=60 [facility] Comment on above: Performed By: #### B MP #### [facility] [address] [address] [address] Itzel Lerma Glucose [Mass/Vol] 144 mg/dL Critically high 74-106 [facility] Comment on above: Performed By: #### B MP #### [facility] [address] [address] [address] Itzel Lerma Potassium [Moles/Vol] 4.6 mmol/L Normal 3.5-5.1 [facility] [facility] Comment on above: Performed By: #### B MP #### [facility] [address] [address] [address] Itzel Lerma Sodium [Moles/Vol] 132 mmol/L Critically low 136-145 Th e [facility] Comment on above: Performed By: #### B MP #### [facility] [address] [place] [address] Dr. Itzel Lerma Urea nitrogen [Mass/Vol] 52.0 mg/dL Critically high 7.0-18.0 [facility] Comment on above: Performed By: #### B MP #### [facility] [address] [place] [address] Dr. Itzel Lerma Urea nitrogen/Creatinine [Mass ratio] 25.1 mg/mg Normal [facility] Comment on above: Performed By: #### B MP #### [facility] [address] [place] [address] Dr. Itzle Lerma PROTIMEon 11-20-2022 INR Coag (PPP) [Relative time] 2.54 {INR} Normal [facility] Comment on above: Performed By: #### C BC #### [facility] [address] [place] [address] Dr. Itzel Lerma INR GUIDELINES SEE BELOW Normal [facility] Comment on above: Result Comment: MIKAL RED INR: 2.0 - 3.0 CONDITIONS NOT LISTED BELOW 2.5 - 3.5 FOR PROSTHETIC HEART VALVE REPLACEMENT 2.5 - 3.5 RECURRENT THROMBOSIS Performed By: #### C BC #### [facility] [address] [place] [address] Dr. Itzel Lerma PT Coag (PPP) [Time] 25.5 s Critically high 9.0-11.6 [facility] Comment on above: Performed By: #### C BC #### [facility] [address] [place] [address] Dr. Itzel Lerma XR KUB 1 VIEWon [...] DORIAN YODER Date: 2022-11-20 10:52 Normal [facility] CBC AUTO DIFFon 11-19-2022 BASO # 0.0 103/ul Normal 0.0-0.1 [facility] Comment on above: Performed By: #### O SMO #### [facility] [address] [address] [address] Itzel Lerma Basophils/100 WBC (Bld) 0.2 % Normal 0.2-2.0 [facility] Comment on above: Performed By: #### O SMO #### [facility] [address] [place] [address] Dr. Itzel Lerma EO # 0.1 103/ul Normal 0.0-0.7 [facility] Comment on above: Performed By: #### O SMO #### [facility] [address] [address] [address] Itzel Lerma Eosinophils/100 WBC (Bld) 1.1 % Normal 0.9-7.0 [facility] Comment on above: Performed By: #### O SMO #### [facility] [address] [address] [address] Itzel Lerma Erythrocyte distribution width (RBC) [Ratio] 16.3 % Critically high 11.0-15.0 [facility] Comment on above: Performed By: #### O SMO #### [facility] [address] [address] [address] Itzel Lerma Hematocrit (Bld) [Volume fraction] 47.9 % Normal 42.0-54.0 [facility] Comment on above: Performed By: #### O SMO #### [facility] [address] [place] [address] Dr. Itzel Lerma Hemoglobin (Bld) [Mass/Vol] 14.7 g/dL Normal 14.0-18.0 [facility] Comment on above: Performed By: #### O SMO #### [facility] [address] [place] [address] Dr. Itzel Lerma IG # 0.04 10e3/ul Critically high 0.00-0.03 [facility] Comment on above: Performed By: #### O SMO #### [facility] [address] [place] [address] Dr. Itzel Lerma IG % 0.4 % Normal 0.0-0.5 [facility] Comment on above: Performed By: #### O SMO #### [facility] [address] [place] [address] Dr. Itzel Lerma LYMPH # 0.9 103/ul Critically low 1.2-3.8 [facility] Comment on above: Performed By: #### O SMO #### [facility] [address] [place] [address] Dr. Itzel Lerma Lymphocytes/100 WBC (Bld) 9.7 % Critically low 20.5-60.0 [facility] Comment on above: Performed By: #### O SMO #### [facility] [address] [place] [address] Dr. Itzel Lerma MANUAL DIFF REQ NO Normal [facility] Comment on above: Performed By: #### O SMO #### [facility] [address] [place] [address] Dr. Itzel Lerma MCH (RBC) [Entitic mass] 27.4 pg Normal 25.9-34.0 [facility] Comment on above: Performed By: #### O SMO #### [facility] [address] [place] [address] Dr. Itzel Lerma MCHC (RBC) [Mass/Vol] 30.7 g/dL Normal 29.9-35.2 [facility] Comment on above: Performed By: #### O SMO #### [facility] [address] [address] [address] Itzel Lerma MCV (RBC) [Entitic vol] 89.2 fL Normal 80.0-94.0 [facility] Comment on above: Performed By: #### O SMO #### [facility] [address] [address] [address] Itzel Lerma MONO # 0.7 103/ul Normal 0.3-0.8 [facility] Comment on above: Performed By: #### O SMO #### [facility] [address] [place] [address] Dr. Itzel Lerma Monocytes/100 WBC (Bld) 7.9 % Normal 1.7-12.0 [facility] Comment on above: Performed By: #### O SMO #### [facility] [address] [place] [address] Dr. Itzel Lerma NEUT # 7.6 103/ul Critically high 1.4-6.5 [facility] Comment on above: Performed By: #### O SMO #### [facility] [address] [place] [address] Dr. Itzel Lerma Neutrophils/100 WBC (Bld) 80.7 % Critically high 43.0-75.0 [facility] Comment on above: Performed By: #### O SMO #### [facility] [address] [place] [address] Dr. Itzel Lerma Platelet mean volume (Bld) [Entitic vol] 10.0 fL Normal 9.5-13.5 [facility] Comment on above: Performed By: #### O SMO #### [facility] [address] [place] [address] Dr. Itzel Lerma PLT 276 103/ul Normal 150-450 [facility] Comment on above: Performed By: #### O SMO #### [facility] [address] [place] [address] Dr. Itzel Lerma RBC 5.37 106/ul Normal 4.70-6.10 [facility] Comment on above: Performed By: #### O SMO #### [facility] [address] [place], [place] [address] Dr[address] Itzel Lerma WBC 9.4 103/ul Normal 4.0-11.0 [facility] Comment on above: Performed By: #### O SMO #### [facility] [address] [place], [place] [address] ABD/PELVIS WO CONon [...] SHAR TREJO Date: 2022-11-19 19:32 Normal [facility]31 SARS-CoV-2 (COVID-19) RNA JUDY+probe Ql (Unsp spec) Not detected Normal NOT DETECTED [facility] Comment on above: Result Comment: When diagnostic [...] for this test is supported by the [place] of Health and Human Service's declaration that [...] used). Performed By: #### U A #### [facility] [address] [place] [address] Dr. Itzel Lerma PROF CHEM 8 (BAS METB)on Anion gap [Moles/Vol] 10.2 mmol/L Normal [facility] Comment on above: Performed By: #### U A #### [facility] [address] [place] [address] Dr. Itzel Lerma Calcium [Mass/Vol] 9.8 mg/dL Normal 8.5-10.1 [facility] Comment on above: Performed By: #### U A #### [facility] [address] [place] [address] Dr. Itzel Lerma Chloride [Moles/Vol] 99 mmol/L Normal 98-107 [facility] Comment on above: Performed By: #### U A #### [facility] [address] [place] [address] Dr. Itzel Lerma CO2 [Moles/Vol] 27.4 mmol/L Normal 21.0-32.0 [facility] Comment on above: Performed By: #### U A #### [facility] [address] [place] [address] Dr. Itzel Lerma Creatinine [Mass/Vol] 2.02 mg/dL Critically high 0.70-1.30 [facility] Comment on above: Performed By: #### U A #### [facility] [address] [address] [address] Itzel Lerma EGFR-AF SAMOAN 39 mL/min/1.73m2 Critically low >=60 [facility] Comment on above: Performed By: #### U A #### [facility] [address] [address] [address] Itzel Lerma EGFR-NON AF SAMOAN 32 mL/min/1.73m2 Critically low >=60 [facility] Comment on above: Performed By: #### U A #### [facility] [address] [address] [address] Itzel Lerma Glucose [Mass/Vol] 148 mg/dL Critically high 74-106 [facility] Comment on above: Performed By: #### U A #### [facility] [address] [address] [address] Itzel Lerma Potassium [Moles/Vol] 5.6 mmol/L Critically high 3.5-5.1 [facility] Comment on above: Performed By: #### U A #### [facility] [address] [address] [address] Itzel Lerma Sodium [Moles/Vol] 131 mmol/L Critically low 136-145 [facility] Comment on above: Performed By: #### U A #### [facility] [address] [address] [address] Itzel Lerma Urea nitrogen [Mass/Vol] 44.0 mg/dL Critically high 7.0-18.0 [facility] Comment on above: Performed By: #### U A #### [facility] [address] [address] [address] Itzel Lerma Urea nitrogen/Creatinine [Mass ratio] 21.8 mg/mg Normal [facility] Comment on above: Performed By: #### U A #### [facility] [id number] Itzel Lerma XR KUB 1 VIEWon 11-19-2022 XR KUB 1 VIEW EXAM: XR KUB 1 VIEW HISTORY: Nasogastric tube in situ COMPARISON: None. TECHNIQUE: Single view FINDINGS: IMPRESSION: Single limited view of the abdomen. Enteric tube tip is approximately 6.2 cm below the diaphragm. Air-filled loops of large and small bowel Electronically authenticated by: SHAHZAD VILLALPANDO Date: 2022-11-19 20:24 Normal [facility] OSMOLALITYon 07-12-2022 Osmolality [Osmolality] 274 mosm/kg Critically low 280-301 [facility] Comment on above: Performed By: #### O SMO #### [facility] [address] [place] [address] Dr. Itzel Lerma CBC AUTO DIFFon 07-11-2022 BASO # 0.0 103/ul Normal 0.0-0.1 [facility] Comment on above: Performed By: #### O JESSE #### [facility] [address] [place] [address] Dr. Itzel Lerma Basophils/100 WBC (Bld) 0.3 % Normal 0.2-2.0 [facility] Comment on above: Performed By: #### O JESSE #### [facility] [address] [place] [address] Dr. Itzel Lerma EO # 0.1 103/ul Normal 0.0-0.7 [facility] Comment on above: Performed By: #### O JESSE #### [facility] [address] [place] [address] Dr. Itzel Lerma Eosinophils/100 WBC (Bld) 0.7 % Critically low 0.9-7.0 [facility] Comment on above: Performed By: #### O JESSE #### [facility] [address] [place] [address] Dr. Itzel Lerma Erythrocyte distribution width (RBC) [Ratio] 14.6 % Normal 11.0-15.0 [facility] Comment on above: Performed By: #### O JESSE #### [facility] [address] [place] [address] Dr. Itzel Lerma Hematocrit (Bld) [Volume fraction] 35.2 % Critically low 42.0-54.0 [facility] Comment on above: Performed By: #### O JESSE #### [facility] [address] [place] [address] Dr. Itzel Lerma Hemoglobin (Bld) [Mass/Vol] 11.4 g/dL Critically low 14.0-18.0 [facility] Comment on above: Performed By: #### O JESSE #### [facility] [address] [place] [address] Dr. Itzel Lerma IG # 0.04 10e3/ul Critically high 0.00-0.03 [facility] Comment on above: Performed By: #### O JESSE #### [facility] [address] [place] [address] Dr. Itzel Lerma IG % 0.4 % Normal 0.0-0.5 [facility] Comment on above: Performed By: #### O JESSE #### [facility] [address] [place] [address] Dr. Itzel Lerma LYMPH # 0.9 103/ul Critically low 1.2-3.8 [facility] [place] [facility] Comment on above: Performed By: #### O JESSE #### [facility] [address] [place] [address] Dr. Itzel Lerma Lymphocytes/100 WBC (Bld) 10.4 % Critically low 20.5-60.0 [facility] Comment on above: Performed By: #### O JESSE #### [facility] [address] [place] [address] Dr. Itzel Lerma MANUAL DIFF REQ NO Normal [facility] Comment on above: Performed By: #### O JESSE #### [facility] [address] [place] [address] Dr. Itzel Lerma MCH (RBC) [Entitic mass] 29.1 pg Normal 25.9-34.0 [facility] Comment on above: Performed By: #### O JESSE #### [facility] [address] [place] [address] Dr. Itzel Lerma MCHC (RBC) [Mass/Vol] 32.4 g/dL Normal 29.9-35.2 [facility] Comment on above: Performed By: #### O JESSE #### [facility] [address] [address] [address] Itzel Lerma MCV (RBC) [Entitic vol] 89.8 fL Normal 80.0-94.0 [facility] Comment on above: Performed By: #### O JESSE #### [facility] [address] [place] [address] Dr. Itzel Lerma MONO # 1.0 103/ul Critically high 0.3-0.8 [facility] Comment on above: Performed By: #### O JESSE #### [facility] [address] [place] [address] Dr. Itzel Lerma Monocytes/100 WBC (Bld) 11.1 % Normal 1.7-12.0 [facility] Comment on above: Performed By: #### O JESSE #### [facility] [address] [place] [address] Dr. Itzel Lerma NEUT # 6.9 103/ul Critically high 1.4-6.5 [facility] Comment on above: Performed By: #### O JESSE #### [facility] [address] [place] [address] Dr. Itzel Lerma Neutrophils/100 WBC (Bld) 77.1 % Critically high 43.0-75.0 [facility] Comment on above: Performed By: #### O JESSE #### [facility] [address] [place] [address] Dr. Itzel Lerma Platelet mean volume (Bld) [Entitic vol] 9.5 fL Normal 9.5-13.5 [facility] Comment on above: Performed By: #### O JESSE #### [facility] [address] [place] [address] Dr. Itzel Lerma PLT 166 103/ul Normal 150-450 [facility] Comment on above: Performed By: #### O JESSE #### [facility] [address] [place] [address] Dr. Itzel Lerma RBC 3.92 106/ul Critically low 4.70-6.10 [facility] Comment on above: Performed By: #### O JESSE #### [facility] [address] [address] [address] Itzel Lerma WBC 9.0 103/ul Normal 4.0-11.0 [facility] Comment on above: Performed By: #### O JESSE #### [facility] [address] [place] [address] Dr. Itzel Lerma H PYLORI ANTIBODY IGGon 06-29 H. PYLORI IGG ABS 1.90 Index Value Critically high 0.00-0. 79 [facility] Comment on above: Result Comment: Nega tive <0.80 Equivocal 0.80 - 0.89 Positive >0.89 Performed By: #### H PYLLC #### [facility] [address] [place] [address] Dr. Itzel Lerma OCC BLD IMMUNOASSAYon 2021 OCCULT BLOOD Positive Abnormal NEGATIVE [facility] Comment on above: Performed By: #### O JESSE #### [facility] [address] [place] [address] Dr. Itzel Lerma OSMOLALITY URINEon 2 Osmolality, Urine 252 mOsmol/kg Normal [facility] Comment on above: Result Comment: 24 h r : 300 - 900 Random: 50 - 1400 After 12hr fluid restriction: >850 Performed By: #### O JESSE #### [facility] [address] [place] [address] Dr. Itzel Lerma PROF 14(COMP METB)on 022 Albumin [Mass/Vol] 2.6 g/dL Critically low 3.4-5.0 [facility] Comment on above: Performed By: #### O SMO #### [facility] [address] [place] [address] Dr. Itzel Lerma Albumin/Globulin [Mass ratio] 0.6 {ratio} Normal [facility] Comment on above: Performed By: #### O SMO #### [facility] [address] [place] [address] Dr. Itzel Lerma ALP [Catalytic activity/Vol] 59 U/L Normal 46-116 [facility] Comment on above: Performed By: #### O SMO #### [facility] [address] [address] [address] Itzel Lerma ALT [Catalytic activity/Vol] 10 U/L Critically low 16-63 [facility] Comment on above: Performed By: #### O SMO #### [facility] [address] [address] [address] Itzel Lerma Anion gap [Moles/Vol] 14.3 mmol/L Normal [facility] Comment on above: Performed By: #### O SMO #### [facility] [address] [address] [address] Itzel Lerma AST [Catalytic activity/Vol] 12 U/L Critically low 15-37 [facility] Comment on above: Performed By: #### O SMO #### [facility] [address] [place] [address] Dr. Itzel Lerma Bilirubin [Mass/Vol] 0.3 mg/dL Normal 0.2-1.0 [facility] Comment on above: Performed By: #### O SMO #### [facility] [address] [address] [address] Itzel Lerma Calcium [Mass/Vol] 7.5 mg/dL Critically low 8.5-10.1 [facility] Comment on above: Performed By: #### O SMO #### [facility] [address] [place] [address] Dr. Itzel Lerma Chloride [Moles/Vol] 116 mmol/L Critically high 98-107 [facility] Comment on above: Performed By: #### O SMO #### [facility] [address] [address] [address] Itzel Lerma CO2 [Moles/Vol] 14.3 mmol/L Critically low 21.0-32.0 [facility] Comment on above: Performed By: #### O SMO #### [facility] [address] [address] [address] Itzel Lerma Creatinine [Mass/Vol] 1.38 mg/dL Critically high 0.70-1.30 [facility] Comment on above: Performed By: #### O SMO #### [facility] [address] [address] [address] Itzel Lerma EGFR-AF SAMOAN 60 mL/min/1.73m2 Normal >=60 [facility] Comment on above: Performed By: #### O SMO #### [facility] [address] [address] [address] Itzel Lerma EGFR-NON AF SAMOAN 49 mL/min/1.73m2 Critically low >=60 [facility] Comment on above: Performed By: #### O SMO #### [facility] [address] [address] [address] Itzel Lerma Globulin (S) [Mass/Vol] 4.1 g/dL Normal [facility] Comment on above: Performed By: #### O SMO #### [facility] [address] [place] [address] Dr. Itzel Lerma Glucose [Mass/Vol] 137 mg/dL Critically high 74-106 [facility] Comment on above: Performed By: #### O SMO #### [facility] [address] [place] [address] Dr. Itzel Lerma Potassium [Moles/Vol] 3.6 mmol/L Normal 3.5-5.1 [facility] Comment on above: Performed By: #### O SMO #### [facility] [address] [place] [address] Dr. Itzel Lerma Protein [Mass/Vol] 6.7 g/dL Normal 6.4-8.2 [facility] Comment on above: Performed By: #### O SMO #### [facility] [address] [place] [address] Dr. Itzel Lerma Sodium [Moles/Vol] 141 mmol/L Normal 136-145 [facility] Comment on above: Performed By: #### O SMO #### [facility] [address] [address] [address] Itzel Lerma Urea nitrogen [Mass/Vol] 25.0 mg/dL Critically high 7.0-18.0 [facility] Comment on above: Performed By: #### O SMO #### [facility] [address] [place] [address] Dr. Itzel Lerma Urea nitrogen/Creatinine [Mass ratio] 18.1 mg/mg Normal [facility] Comment on above: Performed By: #### O SMO #### [facility] [address] [place] [address] Dr. Itzel Lerma PROTIMEon 07-11-2022 INR Coag (PPP) [Relative time] 5.21 {INR} Critically high [facility] Comment on above: Performed By: #### O SMO #### [facility] [address] [place] [address] Dr. Itzel Lerma INR GUIDELINES SEE BELOW Normal [facility] Comment on above: Result Comment: MIKAL RED INR: 2.0 - 3.0 CONDITIONS NOT LISTED BELOW 2.5 - 3.5 FOR PROSTHETIC HEART VALVE REPLACEMENT 2.5 - 3.5 RECURRENT THROMBOSIS Performed By: #### O SMO #### [facility] [address] [place] [address] Dr. Itzel Lerma PT Coag (PPP) [Time] 50.5 s Critically high 9.0-11.6 [facility] Comment on above: Performed By: #### O SMO #### [facility] [address] [place] [address] Dr. Itzel Lerma CBC AUTO DIFFon 07-10-2022 BASO # 0.0 103/ul Normal 0.0-0.1 [facility] Comment on above: Performed By: #### U A #### [facility] [address] [place] [address] Dr. Itzel Lerma Basophils/100 WBC (Bld) 0.2 % Normal 0.2-2.0 [facility] Comment on above: Performed By: #### U A #### [facility] [address] [place] [address] Dr. Itzel Lerma EO # 0.1 103/ul Normal 0.0-0.7 [facility] Comment on above: Performed By: #### U A #### [facility] [address] [place] [address] Dr. Itzel Lerma Eosinophils/100 WBC (Bld) 0.4 % Critically low 0.9-7.0 [facility] Comment on above: Performed By: #### U A #### [facility] [address] [address] [address] Itzel Lerma Erythrocyte distribution width (RBC) [Ratio] 14.3 % Normal 11.0-15.0 [facility] Comment on above: Performed By: #### U A #### [facility] [address] [place] [address] Dr. Itzel Lerma Hematocrit (Bld) [Volume fraction] 38.2 % Critically low 42.0-54.0 [facility] Comment on above: Performed By: #### U A #### [facility] [address] [place] [address] Dr. Itzel Lerma Hemoglobin (Bld) [Mass/Vol] 12.5 g/dL Critically low 14.0-18.0 [facility] Comment on above: Performed By: #### U A #### [facility] [address] [place] [address] Dr. Itzel Lerma IG # 0.11 10e3/ul Critically high 0.00-0.03 [facility] Comment on above: Performed By: #### U A #### [facility] [address] [place] [address] Dr. Itzel Lerma IG % 0.7 % Critically high 0.0-0.5 [facility] Comment on above: Performed By: #### U A #### [facility] [address] [place] [address] Dr. Itzel Lerma LYMPH # 1.1 103/ul Critically low 1.2-3.8 [facility] Comment on above: Performed By: #### U A #### [facility] [address] [place] [address] Dr. Itzel Lerma Lymphocytes/100 WBC (Bld) 6.9 % Critically low 20.5-60.0 [facility] Comment on above: Performed By: #### U A #### [facility] [address] [place] [address] Dr. Itzel Lerma MANUAL DIFF REQ NO Normal [facility] Comment on above: Performed By: #### U A #### [facility] [address] [address] [address] Itzel Lerma MCH (RBC) [Entitic mass] 29.6 pg Normal 25.9-34.0 [facility] Comment on above: Performed By: #### U A #### [facility] [address] [address] [address] Itzel Lerma MCHC (RBC) [Mass/Vol] 32.7 g/dL Normal 29.9-35.2 [facility] Comment on above: Performed By: #### U A #### [facility] [address] [address] [address] Itzel Lerma MCV (RBC) [Entitic vol] 90.3 fL Normal 80.0-94.0 [facility] Comment on above: Performed By: #### U A #### [facility] [address] [place] [address] Dr. Itzel Lerma MONO # 1.2 103/ul Critically high 0.3-0.8 [facility] Comment on above: Performed By: #### U A #### [facility] [address] [address] [address] Itzel Lerma Monocytes/100 WBC (Bld) 8.1 % Normal 1.7-12.0 [facility] Comment on above: Performed By: #### U A #### [facility] [address] [address] [address] Itzel Lerma NEUT # 12.8 103/ul Critically high 1.4-6.5 [facility] Comment on above: Performed By: #### U A #### [facility] [address] [address] [address] Itzel Lerma Neutrophils/100 WBC (Bld) 83.7 % Critically high 43.0-75.0 [facility] Comment on above: Performed By: #### U A #### [facility] [address] [place] [address] Dr. Itzel Lerma Platelet mean volume (Bld) [Entitic vol] 9.5 fL Normal 9.5-13.5 [facility] Comment on above: Performed By: #### U A #### [facility] [address] [place], [place] [address] Dr. Itzel Lerma PLT 197 103/ul Normal 150-450 [facility] Comment on above: Performed By: #### U A #### [facility] [address] [place], [place] [address] Dr. Itzel Lerma RBC 4.23 106/ul Critically low 4.70-6.10 [facility] Comment on above: Performed By: #### U A #### [facility] [address] [place], [place] [address] Dr. Itzel Lerma WBC 15.3 103/ul Critically high 4.0-11.0 [facility] Comment on above: Performed By: #### U A #### [facility] [address] [place], [place] [address] ABD/PELVIS WO CONon [...] DORIAN SOARES Date: 2022-07-09 22:32 Normal [facility] Covid-19 PCR (CVDTB)on 06-29 SARS-CoV-2 (COVID-19) RNA JUDY+probe Ql (Unsp spec) Not detected Normal NOT DETECTED [facility] Comment on above: Result Comment: When diagnostic [...] for this test is supported by the [place] of Health and Human Service's declaration that [...] used). Performed By: #### O JESSE #### [facility] [address] [place] [address] Dr. Itzel Lerma GI PANEL (PCR)on 07-10-2022 Adenovirus F 40/41 Not detected Normal NOT DETECTED [facility] Comment on above: Performed By: #### O JESSE #### [facility] [address] [place] [address] Dr. Itzel Lerma Astrovirus Not detected Normal NOT DETECTED [facility] Comment on above: Performed By: #### O JESSE #### [facility] [address] [place] [address] Dr. Itzel Lerma C. Diff toxin A/B Not detected Normal NOT DETECTED [facility] Comment on above: Performed By: #### O JESSE #### [facility] [address] [place] [address] Dr. Itzel Lerma Campylobacter Not detected Normal NOT DETECTED [facility] Comment on above: Performed By: #### O JESSE #### [facility] [address] [place] [address] Dr. Itzel Lerma Cryptosporidium Not detected Normal NOT DETECTED [facility] Comment on above: Performed By: #### O JESSE #### [facility] [address] [place] [address] Dr. Itzel Lerma Cyclos. Cayetanensis Not detected Normal NOT DETECTED [facility] Comment on above: Performed By: #### O JESSE #### [facility] [address] [place] [address] Dr. Itzel Lerma E. Coli O157 Not Applicable Normal Not Applicable [facility] Comment on above: Performed By: #### O JESSE #### [facility] [address] [place] [address] Dr. Itzel Lerma E. histolytica Not detected Normal NOT DETECTED [facility] Comment on above: Performed By: #### O JESSE #### [facility] [address] [place] [address] Dr. Itzel Lerma EAEC Not detected Normal NOT DETECTED [facility] Comment on above: Performed By: #### O JESSE #### [facility] [address] [place] [address] Dr. Itzel Lerma EIEC Not detected Normal NOT DETECTED [facility] Comment on above: Performed By: #### O JESSE #### [facility] [address] [place] [address] Dr. Itzel Lerma EPEC Not detected Normal NOT DETECTED [facility] Comment on above: Performed By: #### O JESSE #### [facility] [address] [place] [address] Dr. Itzel Lerma ETEC Not detected Normal NOT DETECTED [facility] Comment on above: Performed By: #### O JESSE #### [facility] [address] [place] [address] Dr. Itzel Taylichester Not detected Normal NOT DETECTED [facility] Comment on above: Performed By: #### O JESSE #### [facility] [address] [place] [address] Dr. Itzel MCKEON CONTROLS PASSED Normal [facility] Comment on above: Performed By: #### O JESSE #### [facility] [address] [place] [address] Dr. Itzel GALVAN TAVO HEADER GI PANEL BACTERIA Normal [facility] Comment on above: Performed By: #### O JESSE #### [facility] [address] [place] [address] Dr. Itzel GALLOWAY ECOLI GI PANEL DIARRHEAGEN IC E.COLI / SHIGELLA Normal [facility] Comment on above: Performed By: #### O JESSE #### [facility] [address] [place] [address] Dr. Itzel GALLOWAY INFO SEE BELOW Normal [facility] Comment on above: Result Comment: EAEC - Enteroaggregative E. Coli EPEC- Enteropathogenic E. Coli ETEC- Enterotoxigenic E. Coli lt/st STEC- Shigella-like toxin-producing E. Coli stx1/stx2 EIEC- Shigella/Enteroinvasive E. Coli Performed By: #### O JESSE #### [facility] [address] [place] [address] Dr. Itzel GALLOWAY PARASITES GI PANEL PARASITES Normal [facility] Comment on above: Performed By: #### O JESSE #### [facility] [address] [address] [address] Itzel GALLOWAY VIRUS GI PANEL VIRUSES Normal [facility] Comment on above: Performed By: #### O JESSE #### [facility] [address] [address] [address] Itzel Lerma Norovirus GI/GII Not detected Normal NOT DETECTED [facility] Comment on above: Performed By: #### O JESSE #### [facility] [address] [address] [address] Itzel Lerma P. Shigelloides Not detected Normal NOT DETECTED [facility] Comment on above: Performed By: #### O JESSE #### [facility] [address] [address] [address] Itzel Lerma Rotavirus A Not detected Normal NOT DETECTED [facility] Comment on above: Performed By: #### O JESSE #### [facility] [address] [address] [address] Itzel Lerma Salmonella Not detected Normal NOT DETECTED [facility] Comment on above: Performed By: #### O JESSE #### [facility] [address] [address] [address] Itzel Lerma Sapovirus Not detected Normal NOT DETECTED [facility] Comment on above: Performed By: #### O JESSE #### [facility] [address] [address] [address] Itzel Lerma STEC Not detected Normal NOT DETECTED [facility] Comment on above: Performed By: #### O JESSE #### [facility] [address] [address] [address] Itzel Lerma Vibrio Not detected Normal NOT DETECTED [facility] Comment on above: Performed By: #### O JESSE #### [facility] [address] [address] [address] Itzel Lerma Vibrio Cholera Not detected Normal NOT DETECTED [facility] Comment on above: Performed By: #### O JESSE #### [facility] [address] [place] [address] Dr. Itzel Lerma Y. Enterocolitica Not detected Normal NOT DETECTED [facility] Comment on above: Performed By: #### O JESSE #### [facility] [address] [place] [address] Dr. Itzel Lerma PROF CHEM 8 (BAS METB)on Anion gap [Moles/Vol] 12.6 mmol/L Normal [facility] Comment on above: Performed By: #### O SMO #### [facility] [address] [place] [address] Dr. Itzel Lerma Calcium [Mass/Vol] 7.7 mg/dL Critically low 8.5-10.1 [facility] Comment on above: Performed By: #### O SMO #### [facility] [address] [place] [address] Dr. Itzel Lerma Chloride [Moles/Vol] 103 mmol/L Normal 98-107 [facility] Comment on above: Performed By: #### O SMO #### [facility] [address] [place] [address] Dr. Itzel Lerma CO2 [Moles/Vol] 16.4 mmol/L Critically low 21.0-32.0 [facility] Comment on above: Performed By: #### O SMO #### [facility] [address] [place] [address] Dr. Itzel Lerma Creatinine [Mass/Vol] 2.03 mg/dL Critically high 0.70-1.30 [facility] Comment on above: Performed By: #### O SMO #### [facility] [address] [place] [address] Dr. Itzel Lerma EGFR-AF SAMOAN 38 mL/min/1.73m2 Critically low >=60 [facility] Comment on above: Performed By: #### O SMO #### [facility] [address] [place] [address] Dr. Itzel Lerma EGFR-NON AF SAMOAN 32 mL/min/1.73m2 Critically low >=60 [facility] Comment on above: Performed By: #### O SMO #### [facility] [address] [address] [address] Itzel Lerma Glucose [Mass/Vol] 148 mg/dL Critically high 74-106 [facility] Comment on above: Performed By: #### O SMO #### [facility] [address] [address] [address] Itzel Lerma Potassium [Moles/Vol] 4.0 mmol/L Normal 3.5-5.1 [facility] Comment on above: Performed By: #### O SMO #### [facility] [address] [address] [address] Itzel Lerma Sodium [Moles/Vol] 128 mmol/L Critically low 136-145 [facility] Comment on above: Performed By: #### O SMO #### [facility] [address] [place] [address] Dr. Itzel Lerma Urea nitrogen [Mass/Vol] 50.0 mg/dL Critically high 7.0-18.0 [facility] Comment on above: Performed By: #### O SMO #### [facility] [address] [place] [address] Dr. Itzel Lerma Urea nitrogen/Creatinine [Mass ratio] 24.6 mg/mg Normal [facility] Comment on above: Performed By: #### O SMO #### [facility] [address] [place] [address] Dr. Itzel Lerma Anion gap [Moles/Vol] 14.3 mmol/L Normal [facility] Comment on above: Performed By: #### U A #### [facility] [address] [place] [address] Dr. Itzel Lerma Calcium [Mass/Vol] 7.8 mg/dL Critically low 8.5-10.1 [facility] Comment on above: Performed By: #### U A #### [facility] [address] [place] [address] Dr. Itzel Lerma Chloride [Moles/Vol] 101 mmol/L Normal 98-107 [facility] Comment on above: Performed By: #### U A #### [facility] [address] [place] [address] Dr. Itzel Lerma CO2 [Moles/Vol] 14.7 mmol/L Critically low 21.0-32.0 [facility] Comment on above: Performed By: #### U A #### [facility] [address] [address] [address] Itzel Lerma Creatinine [Mass/Vol] 2.01 mg/dL Critically high 0.70-1.30 [facility] Comment on above: Performed By: #### U A #### [facility] [address] [address] [address] Itzel Lerma EGFR-AF SAMOAN 39 mL/min/1.73m2 Critically low >=60 [facility] Comment on above: Performed By: #### U A #### [facility] [address] [address] [address] Itzel Lerma EGFR-NON AF SAMOAN 32 mL/min/1.73m2 Critically low >=60 [facility] Comment on above: Performed By: #### U A #### [facility] [address] [address] [address] Itzel Lerma Glucose [Mass/Vol] 152 mg/dL Critically high 74-106 [facility] Comment on above: Performed By: #### U A #### [facility] [address] [address] [address] Itzel Lerma Potassium [Moles/Vol] 4.0 mmol/L Normal 3.5-5.1 [facility] Comment on above: Performed By: #### U A #### [facility] [address] [address] [address] Itzel Lerma Sodium [Moles/Vol] 126 mmol/L Critically low 136-145 [facility] Comment on above: Performed By: #### U A #### [facility] [address] [address] [address] Itzel Lerma Urea nitrogen [Mass/Vol] 51.0 mg/dL Critically high 7.0-18.0 [facility] Comment on above: Performed By: #### U A #### [facility] [address] [address] [address] Itzel Lerma Urea nitrogen/Creatinine [Mass ratio] 25.4 mg/mg Normal [facility] Comment on above: Performed By: #### U A #### [facility] [address] [address] [address] Itzel Lerma PROTIMEon 07-10-2022 INR Coag (PPP) [Relative time] 4.72 {INR} Critically high [facility] Comment on above: Performed By: #### P T #### [facility] [address] [place] [address] Dr. Itzel Lerma INR GUIDELINES SEE BELOW Normal [facility] [place] [facility] Comment on above: Result Comment: MIKAL RED INR: 2.0 - 3.0 CONDITIONS NOT LISTED BELOW 2.5 - 3.5 FOR PROSTHETIC HEART VALVE REPLACEMENT 2.5 - 3.5 RECURRENT THROMBOSIS Performed By: #### P T #### [facility] [address] [place] [address] Dr. Itzel Lerma PT Coag (PPP) [Time] 46.1 s Critically high 9.0-11.6 [facility] Comment on above: Performed By: #### P T #### [facility] [address] [place] [address] Dr. Itzel Lerma SODIUM RANDOM URINEon 2021 UR SODIUM <50 Normal 30-90 [facility] Comment on above: Performed By: #### O JESSE #### [facility] [address] [place] [address] Dr. Itzel Lerma UA RANDOMon 07-10-2022 Bilirubin Ql (U) Negative Normal NEGATIVE [facility] Comment on above: Performed By: #### U A #### [facility] [address] [place] [address] Dr. Itzel Lerma Clarity (U) CLEAR Normal CLEAR [facility] Comment on above: Performed By: #### U A #### [facility] [address] [place] [address] Dr. Itzel Lerma Color (U) LT. YELLOW Normal YELLOW [facility] Comment on above: Performed By: #### U A #### [facility] [address] [address] [address] Itzel Lerma Glucose Ql (U) Negative Normal NEGATIVE [facility] Comment on above: Performed By: #### U A #### [facility] [address] [address] [address] Itzel Lerma Hemoglobin Ql (U) Negative Normal NEGATIVE [facility] Comment on above: Performed By: #### U A #### [facility] [address] [place] [address] Dr. Itzel Lerma Ketones Ql (U) Negative Normal NEGATIVE [facility] [place] [facility] Comment on above: Performed By: #### U A #### [facility] [address] [place] [address] Dr. Itzel Lerma LEUKOCYTES Negative Normal NEGATIVE [facility] Comment on above: Performed By: #### U A #### [facility] [address] [place] [address] Dr. Itzel Lerma Nitrite Ql (U) Negative Normal NEGATIVE [facility] Comment on above: Performed By: #### U A #### [facility] [address] [place] [address] Dr. Itzel Lerma pH (U) 6.0 [pH] Normal 5-9 [facility] Comment on above: Performed By: #### U A #### [facility] [address] [place] [address] Dr. Itzel eLrma SPEC GRAVITY 1.010 Normal 1.005-<=1.025 [facility] Comment on above: Performed By: #### U A #### [facility] [address] [place] [address] Dr. Itzel Lerma UA PROTEIN Negative Normal NEGATIVE/ TRACE [facility] Comment on above: Performed By: #### U A #### [facility] [address] [place] [address] Dr. Itzel Lerma Urobilinogen Qn (U) 0.2 {Reta'U}/dL Normal 0.2 - 1. 0 [facility] Comment on above: Performed By: #### U A #### [facility] [address] [place] [address] Dr. Itzel Lerma XR ABD FLAT UP_PA [...] DORIAN YODER Date: 2022-07-10 10:16 Normal [facility] CBC AUTO DIFFon 07-09-2022 BASO # 0.1 103/ul Normal 0.0-0.1 [facility] Comment on above: Performed By: #### O JESSE #### [facility] [address] [place] [address] Dr. Itzel Lerma Basophils/100 WBC (Bld) 0.2 % Normal 0.2-2.0 [facility] Comment on above: Performed By: #### O JESSE #### [facility] [address] [place] [address] Dr. Itzel Lerma EO # 0.0 103/ul Normal 0.0-0.7 [facility] Comment on above: Performed By: #### O JESSE #### [facility] [address] [place] [address] Dr. Itzel Lerma Eosinophils/100 WBC (Bld) 0.2 % Critically low 0.9-7.0 [facility] Comment on above: Performed By: #### O JESSE #### [facility] [address] [place] [address] Dr. Itzel Lerma Erythrocyte distribution width (RBC) [Ratio] 14.0 % Normal 11.0-15.0 [facility] Comment on above: Performed By: #### O JESSE #### [facility] [address] [place] [address] Dr. Itzel Lerma Hematocrit (Bld) [Volume fraction] 39.3 % Critically low 42.0-54.0 [facility] Comment on above: Performed By: #### O JESSE #### [facility] [address] [place] [address] Dr. Itzel Lerma Hemoglobin (Bld) [Mass/Vol] 13.2 g/dL Critically low 14.0-18.0 [facility] Comment on above: Performed By: #### O JESSE #### [facility] [address] [place] [address] Dr. Itzel Lerma IG # 0.20 10e3/ul Critically high 0.00-0.03 [facility] Comment on above: Performed By: #### O JESSE #### [facility] [address] [place] [address] Dr. Itzel Lerma IG % 0.9 % Critically high 0.0-0.5 [facility] Comment on above: Performed By: #### O JESSE #### [facility] [address] [place] [address] Dr. Itzel Lerma LYMPH # 1.3 103/ul Normal 1.2-3.8 [facility] Comment on above: Performed By: #### O JESSE #### [facility] [address] [place] [address] Dr. Itzel Lerma Lymphocytes/100 WBC (Bld) 5.8 % Critically low 20.5-60.0 [facility] Comment on above: Performed By: #### O JESSE #### [facility] [address] [place] [address] Dr. Itzel Lerma MANUAL DIFF REQ NO Normal [facility] Comment on above: Performed By: #### O JESSE #### [facility] [address] [place] [address] Dr. Itzel Lerma MCH (RBC) [Entitic mass] 29.7 pg Normal 25.9-34.0 [facility] Comment on above: Performed By: #### O JESSE #### [facility] [address] [place] [address] Dr. Itzel Lerma MCHC (RBC) [Mass/Vol] 33.6 g/dL Normal 29.9-35.2 [facility] Comment on above: Performed By: #### O JESSE #### [facility] [address] [place] [address] Dr. Itzel Lerma MCV (RBC) [Entitic vol] 88.3 fL Normal 80.0-94.0 [facility] Comment on above: Performed By: #### O JESSE #### [facility] [address] [place] [address] Dr. Itzel Lerma MONO # 1.3 103/ul Critically high 0.3-0.8 [facility] Comment on above: Performed By: #### O JESSE #### [facility] [address] [place] [address] Dr. Itzel Lerma Monocytes/100 WBC (Bld) 6.0 % Normal 1.7-12.0 [facility] Comment on above: Performed By: #### O JESSE #### [facility] [address] [place] [address] Dr. Itzel Lerma NEUT # 19.3 103/ul Critically high 1.4-6.5 [facility] Comment on above: Performed By: #### O JESSE #### [facility] [address] [place] [address] Dr. Itzel Lerma Neutrophils/100 WBC (Bld) 86.9 % Critically high 43.0-75.0 [facility] Comment on above: Performed By: #### O JESSE #### [facility] [address] [place] [address] Dr. Itzel Lerma Platelet mean volume (Bld) [Entitic vol] 9.2 fL Critically low 9.5-13.5 [facility] Comment on above: Performed By: #### O JESSE #### [facility] [address] [place] [address] Dr. Itzel Lerma PLT 246 103/ul Normal 150-450 [facility] Comment on above: Performed By: #### O JESSE #### [facility] [address] [address] [address] Itzel Lerma RBC 4.45 106/ul Critically low 4.70-6.10 [facility] Comment on above: Performed By: #### O JESSE #### [facility] [address] [address] [address] Itzel Lerma WBC 22.2 103/ul Critically high 4.0-11.0 [facility] Comment on above: Performed By: #### O JESSE #### [facility] [address] [place] [address] Dr. Itzel Lerma LACTATE/LACTIC ACIDon 2021 Lactate [Moles/Vol] 1.0 mmol/L Normal 0.4-1.9 [facility] Comment on above: Performed By: #### O SMO #### [facility] [address] [place] [address] Dr. Itzel Lerma PROF 14(COMP METB)on 022 Albumin [Mass/Vol] 3.0 g/dL Critically low 3.4-5.0 [facility] Comment on above: Performed By: #### C MP #### [facility] [address] [place] [address] Dr. Itzel Lerma Albumin/Globulin [Mass ratio] 0.6 {ratio} Normal [facility] Comment on above: Performed By: #### C MP #### [facility] [address] [place] [address] Dr. Itzel Lerma ALP [Catalytic activity/Vol] 90 U/L Normal 46-116 [facility] Comment on above: Performed By: #### C MP #### [facility] [address] [place] [address] Dr. Itzel Lerma ALT [Catalytic activity/Vol] 12 U/L Critically low 16-63 [facility] Comment on above: Performed By: #### C MP #### [facility] [address] [address] [address] Itzel Lerma Anion gap [Moles/Vol] 18.2 mmol/L Normal [facility] Comment on above: Performed By: #### C MP #### [facility] [address] [place] [address] Dr. Itzel Lerma AST [Catalytic activity/Vol] 17 U/L Normal 15-37 [facility] Comment on above: Performed By: #### C MP #### [facility] [address] [address] [address] Itzel Lerma Bilirubin [Mass/Vol] 0.8 mg/dL Normal 0.2-1.0 [facility] Comment on above: Performed By: #### C MP #### [facility] [address] [place] [address] Dr. Itzel Lerma Calcium [Mass/Vol] 7.9 mg/dL Critically low 8.5-10.1 [facility] Comment on above: Performed By: #### C MP #### [facility] [address] [place] [address] Dr. Itzel Lerma Chloride [Moles/Vol] 92 mmol/L Critically low 98-107 [facility] Comment on above: Performed By: #### C MP #### [facility] [address] [place] [address] Dr. Itzel Lerma CO2 [Moles/Vol] 14.0 mmol/L Critically low 21.0-32.0 [facility] Comment on above: Performed By: #### C MP #### [facility] [address] [place] [address] Dr. Itzel Lerma Creatinine [Mass/Vol] 2.74 mg/dL Critically high 0.70-1.30 [facility] Comment on above: Performed By: #### C MP #### [facility] [address] [place] [address] Dr. Itzel Lerma EGFR-AF SAMOAN 27 mL/min/1.73m2 Critically low >=60 [facility] Comment on above: Performed By: #### C MP #### [facility] [address] [place] [address] Dr. Itzel Lerma EGFR-NON AF SAMOAN 22 mL/min/1.73m2 Critically low >=60 [facility] Comment on above: Performed By: #### C MP #### [facility] [address] [address] [address] Itzel Lerma Globulin (S) [Mass/Vol] 4.9 g/dL Normal [facility] Comment on above: Performed By: #### C MP #### [facility] [address] [address] [address] Itzel Lerma Glucose [Mass/Vol] 169 mg/dL Critically high 74-106 [facility] Comment on above: Performed By: #### C MP #### [facility] [address] [place] [address] Dr. Itzel Lerma Potassium [Moles/Vol] 4.2 mmol/L Normal 3.5-5.1 [facility] Comment on above: Performed By: #### C MP #### [facility] [address] [address] [address] Itzel Lerma Protein [Mass/Vol] 7.9 g/dL Normal 6.4-8.2 [facility] Comment on above: Performed By: #### C MP #### [facility] [address] [place] [address] Dr. Itzel Lerma Sodium [Moles/Vol] 120 mmol/L Critically low 136-145 [facility] Comment on above: Performed By: #### C MP #### [facility] [address] [address] [address] Itzel Lerma Urea nitrogen [Mass/Vol] 69.0 mg/dL Critically high 7.0-18.0 [facility] Comment on above: Performed By: #### C MP #### [facility] [address] [place] [address] Dr. Itzel Lerma Urea nitrogen/Creatinine [Mass ratio] 25.2 mg/mg Normal [facility] Comment on above: Performed By: #### C MP #### [facility] [address] [place] [address] Dr. Itzel Lerma PROTIMEon 07-09-2022 INR Coag (PPP) [Relative time] 5.18 {INR} Critically high [facility] Comment on above: Performed By: #### U A #### [facility] [address] [place] [address] Dr. Itzel Lerma INR GUIDELINES SEE BELOW Normal [facility] Comment on above: Result Comment: MIKAL RED INR: 2.0 - 3.0 CONDITIONS NOT LISTED BELOW 2.5 - 3.5 FOR PROSTHETIC HEART VALVE REPLACEMENT 2.5 - 3.5 RECURRENT THROMBOSIS Performed By: #### U A #### [facility] [address] [place] [address] Dr. Itzel Lerma PT Coag (PPP) [Time] 50.2 s Critically high 9.0-11.6 [facility] Comment on above: Performed By: #### U A #### [facility] [address] [place] [address] Dr. Itzel Lerma PTTon 07-09-2022 aPTT Coag (Bld) [Time] 62.9 s Critically high 22.3-36.2 [facility] Comment on above: Performed By: #### U A #### [facility] [address] [place] [address] Dr. Itzel Lerma TSHon 07-09-2022 TSH 1.544 uIU/mL Normal 0.358-3.740 [facility] Comment on above: Performed By: #### O JESSE #### [facility] [address] [place] [address] Dr. Itzel Lerma Vital Signs Date Time Vital Sign Value Performing Clinician Facility 01-10-2023 13:11040 Body height 172.72 cm MD Ivan Lopez Work Phone: [facility] 01-10-2023 13:11040 Body temperature 97.8 [degF] MD Ivan Lopez Work Phone: [facility] 01-10-2023 13:11040 Body weight 71.4 kg MD Ivan Lopez Work Phone: [facility] 01-10-2023 13:11-0400 Diastolic blood pressure 84 mm[Hg] MD Ivan Lopez Work Phone: [facility] 01-10-2023 13:11-0400 Heart rate 73 /min MD Ivan Lopez Work Phone: [facility] 01-10-2023 13:11-0400 Respiratory rate 20 /min MD Ivan Lopez Work Phone: [facility] 01-10-2023 13:11-0400 SaO2% (BldA) [Mass fraction] 99 % MD Ivan Lopez Work Phone: [facility] 01-10-2023 13:11-0400 Systolic blood pressure 142 mm[Hg] MD Ivan Lopez Work Phone: [facility] 05-23-2022 15:00-0400 Body height 172.72 cm Yves Sanford Other [facility] 05-23-2022 15:00-0400 Body mass index (BMI) [Ratio] 25.09 kg/m2 Yves Sanford Other [facility] 05-23-2022 15:00-0400 Body weight 74.84 kg Yves Sanford Other [facility] 02-21-2022 15:00-0400 Body height 172.72 cm Yves Sanford Other [facility] Other 02-21-2022 15:00-0400 Body mass index (BMI) [Ratio] 26 kg/m2 Yves Christianormack Other [facility] Other 02-21-2022 15:00-0400 Body weight 77.57 kg Yves Cornejoack Other [facility] Other 02-21-2022 15:00-0400 Diastolic blood pressure 81 mm[Hg] Yves Cornejoack Other [facility] Other 02-21-2022 15:00-0400 Systolic blood pressure 118 mm[Hg] Yves Juvenal Other [facility] Other 11-22-2021 14:30-0500 Body height 172.72 cm Yves Christianormack Other [facility] Other 11-22-2021 14:30-0500 Body mass index (BMI) [Ratio] 26.76 kg/m2 Yves Christianormack Other [facility] Other 11-22-2021 14:30-0500 Body weight 79.83 kg Yves Juvenal Other [facility] Other 11-22-2021 14:30-0500 Diastolic blood pressure 70 mm[Hg] Yves Juvenal Other [facility] Other 11-22-2021 14:30-0500 Systolic blood pressure 121 mm[Hg] Yves Juvenal Other [facility] Other Encounters Encounter Date Encounter Type Care Provider Facility Start: 07-06-2024 ambulatory YANA Naranjo [facility] Start: 01-10-2023 End: 01-10-2023 Emergency department patient visit Ajit Rivero Facility:[facility] Start: 01-10-2023 End: 01-10-2023 Emergency department patient visit MD Ivan Lopez Work Phone: [facility] Work Phone: Start: 11-24-2022 End: 11-24-[address] DOCTOR CARDENAS Facility:[facility] Start: 11-19-2022 End: 11-23-2022 Evaluation and management of inpatient DR DOCTOR CARDENAS Facility:[facility] Start: 10-29-2022 End: 10-29-2022 ambulatory Yves Sanford Other [facility] Other Start: 10-29-2022 Telephone encounter Yves Zarate [facility] [employer] Start: 07-11-2022 ambulatory Facility:[facility] Start: 07-10-2022 End: 07-11-[address] DOCTOR CARDENAS Facility:[facility] Start: 05-23-2022 End: 05-23-2022 ambulatory Yves Sanford Other [facility] Other Start: 05-23-2022 Office outpatient visit 15 minutes Yves Sanford [facility] Start: 02-21-2022 End: 02-21-2022 ambulatory Yves Sanford Other [facility] Other Start: 02-21-2022 Office outpatient visit 15 minutes Yves Sanford [facility] Start: 11-22-2021 End: 11-22-2021 ambulatory Yves Sanford Other [facility] Other Start: 11-22-2021 Office outpatient ne w 45 minutes Yves Sanford [facility] Procedures Date Procedure Procedure Detail Performing Clinician Start: 01-10-2023 CT of head without contrast MD Ivan Lopez Work Phone: Start: 07-10-[address] DOCTOR CARDENAS Comment on above: Performed By: #### U A #### [facility] [address] [place] [address] Dr. Itzel Lerma Plan of Treatment Date Care Activity Detail Author Patient Education Head Injury in Adults ( [place]) [facility] Work Phone: Patient referral [facility] Work Phone: Payers Date Payer Category Payer Self-pay [id number] 2019 Unknown [id number] 1958 Medicare [id number] 1940 Unknown [id number] 1940 Unknown [id number] 1940 Unknown [id number] Medicare Medicare Outpatient [id number] Unknown [employer] [id number] Unknown [id number] Social History Date Type Detail Facility Sex Assigned At [facility] Other Start: 01-10-2023 Tobacco smoking stat [facility] Never smoked tobacco (finding) [facility] Start: 1940 Sex Assigned At Male [facility] Evaluation note 05-23-2022 Note Date & Type Note Facility 05-23-2022 Evaluation note Encounter Date Diagnosis Assessment Notes Apr, Diarrhea (ICD-10 - R19.7) patient states does not seem to bad patient does use the imodium as needed Apr, Nausea (ICD-10 - R11.0) will start zofran [facility] Other Evaluation note 02-21-2022 Note Date & Type Note Facility 02-21-2022 Evaluation note Encounter Date Diagnosis Assessment Notes January, Weight loss (ICD-10 - R63.4) January, Diarrhea (ICD-10 - R19.7) Start Imodium every morning Encouraged low fodmap diet. Education given to patient again. 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) January, Frequent bowel movements (ICD-10 - R19.4) [facility] Other Evaluation note 11-22-2021 Note Date & Type Note Facility 11-22-2021 Evaluation note Encounter Date Diagnosis Assessment Notes Oct, Weight loss (ICD-10 - R63.4) OBTAIN RECORDS FROM [facility] STAY COPY OF LOW FODMAP DIET GIVEN TO PT RTO 3 MONTHS Oct, Diarrhea (ICD-10 - R19.7) [facility] Other Evaluation note Note Date & Type Note Facility Evaluation note No assessment information [facility] Work Phone: Evaluation note Note Date & Type Note Facility Evaluation note No Information [facility] Other History general Narrative - Reported Note Date & Type Note Facility History general Narrative - Reported Type Surgical History bowel resection [facility] Other Reason for visit Narrative Note Date & Type Note Facility Reason for visit Narrative REFERRED BY Chester LOPEZ FOR WEIGHT LOSS. PT DOES TAKE MEDICATIONS, HOWEVER HE DOES NOT RECALL NAMES OR DOSAGES OR HAVE A LIST TO REVIEW, (REFERRAL NOTE RECEIVED) [facility] Other Chief Complaint and Reason for Visit [...] and content) DATE CREATED AUTHOR 02/12/2023 [facility] DATE CREATED AUTHOR AUTHOR'S ORGANIZ ATION 03/18/2023 [facility] DATE CREATED AUTHOR AUTHOR'S ORGANIZ ATION 01/27/2024 [facility] DATE CREATED AUTHOR AUTHOR'S [...] BE BASED ON THE PRIMARY CLINICAL RECORDS. [employer] [facility]. provides no warranty or guarantee of the accuracy or completeness of information in this document.
[2025-06-21 09:32] LABS: NT Pro B Type Natriuretic Pept 13047.0 pg/mL (<=1800.0)
--- NOTE | 2025-06-21 10:10 | ED.SOB1 ---
HPI - SOB/Dyspnea General Chief Complaint: Shortness of Breath/Dyspnea Stated Complaint: SOB Time Seen by Provider: 06/21/25 07:53 Source: patient and family Mode of arrival: Wheelchair Limitations: no limitations History of Present Illness HPI Narrative: The patient is a 85-year-old male is coming to us with shortness of breath as per the patient this started almost only today but his family mentioned that for the last few days has been complaining of shortness of breath, patient also have a cough that is not productive he have no fever no chills no abdominal pain no chest pain no nausea no vomiting or any other concerns Normal appetite and according to the family he recently had his medication changed from valsartan that was stopped to start lisinopril at 2.5 mg and they were concerned that this his symptoms are secondary to that They also mentioned that [facility] with [facility] and the last few weeks he had an echo done but they are not sure what the ejection fraction but maybe it was decreased according to them Related Data Home Medications ?Medication ?Instructions ?Recorded ?Confirmed atorvastatin 10 mg tablet 10 mg PO QPM 03/14/23 12/31/24 empagliflozin 25 mg tablet 12.5 mg PO DAILY 03/14/23 12/31/24 finasteride 5 mg tablet 5 mg PO DAILY 03/14/23 12/31/24 metoprolol succinate 100 mg 100 mg PO DAILY 03/14/23 09/13/24 capsule sprinkle, ext. release 24 hr ([place] Sprinkle) pantoprazole 40 mg tablet,delayed 40 mg PO DAILY 03/14/23 12/31/24 release tamsulosin 0.4 mg capsule 0.4 mg PO Q24H 03/14/23 12/31/24 warfarin 2.5 mg tablet 2.5 mg PO DAILY 03/14/23 12/31/24 warfarin 5 mg tablet 5 mg PO .COMPLEX 03/14/23 09/13/24 brimonidine 0.2 %-timolol 0.5 % 1 drp ophthalmic (eye) QAM 05/30/24 09/13/24 eye drops latanoprost 0.005 % eye drops 1 drp ophthalmic (eye) QPM 05/30/24 09/13/24 levothyroxine 50 mcg tablet 50 mcg PO DAILY 05/30/24 09/13/24 (Euthyrox) metoclopramide HCl 10 mg tablet 10 mg PO TID 05/30/24 12/31/24 amiodarone 200 mg tablet 200 mg PO DAILY 12/31/24 06/21/25 furosemide 40 mg tablet 40 mg PO DAILY 12/31/24 12/31/24 metoprolol succinate 100 mg 100 mg PO DAILY 12/31/24 12/31/24 tablet,extended release 24 hr lisinopril 2.5 mg tablet 2.5 mg PO DAILY 06/21/25 06/21/25 Previous Rx's ?Medication ?Instructions ?Recorded acetaminophen 300 mg-codeine 30 mg 1 tab PO Q6H PRN pain 5 days #20 09/13/24 tablet tabs ondansetron 4 mg disintegrating 4 mg PO Q4H PRN nausea and 12/31/24 tablet vomiting 3 days #6 tabs promethazine 25 mg rectal 25 mg ND Q6H PRN nausea and 12/31/24 suppository vomiting #6 ea Allergies Allergy/AdvReac Type Severity Reaction Status Date / Time promethazine (From Phenergan) Allergy Mild Difficulty Verified 06/21/25 07:50 Breathing Review of Systems ROS Status of ROS 10 or more systems reviewed and unremarkable except as noted in history and below [facility] Medical History (Updated 06/21/25 @ 10:11 by Alma Rosa Weir MD) Nondiabetic gastroparesis ?K31.84 - Gastroparesis (ICD-10) (HFpEF) heart failure with preserved ejection fraction ?I50.30 - Unspecified diastolic (congestive) heart failure (ICD-10) HLD (hyperlipidemia) ?E78.5 - Hyperlipidemia, unspecified (ICD-10) Hypothyroidism ?E03.9 - Hypothyroidism, unspecified (ICD-10) Spinal stenosis at L4-L5 level ?M48.061 - Spinal stenosis, lumbar region without neurogenic claudication (ICD-10) Generalized weakness ?R53.1 - Weakness (ICD-10) Glaucoma ?H40.9 - Unspecified glaucoma (ICD-10) Gastroparesis ?K31.84 - Gastroparesis (ICD-10) Ileus following gastrointestinal surgery ?K91.89 - Other postprocedural complications and disorders of digestive system (ICD-10) ?K56.7 - Ileus, unspecified (ICD-10) 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 - Peritoneal adhesions (postprocedural) (postinfection) (ICD-10) Bowel obstruction ?K56.609 - Unspecified intestinal obstruction, unspecified as to partial versus complete obstruction (ICD-10) A-fib ?I48.91 - Unspecified atrial fibrillation (ICD-10) Hypertension ?I10 - Essential (primary) hypertension (ICD-10) Surgical History H/O exploratory laparotomy ?Z98.890 - Other specified postprocedural states (ICD-10) Family History Mother Family history of cancer Social History Within the past year, how often did you have a drink containing alcohol: never Within the past year, how often did you have six or more drinks on one occasion: never Score interpretation: A score less than 4 is consistent with normal alcohol consumption. 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 Highest level of school completed/degree received: high school graduate Do you want help with school or training: No Are you now , , , , never or living with a partner: In a typical week, how many times do you talk on the telephone with family, friends, or neighbors: 3 or more times per week How often do you get together with friends or relatives: 3 or more times per week How often do you attend pentecostalism or yazdanism services: never Do you belong to any clubs or organizations such as pentecostalism groups unions, fraternal or athletic groups, or school groups: no Total score: 1 Score interpretation: A score of less than or equal to 1 indicates the most socially isolated. Little interest or pleasure in doing things: not at all Feeling down, depressed, or hopeless: not at all Feel stressed/tense/nervous/anxious/difficulty sleeping: not at all Due to disability, difficulty making decisions: No Do you think of yourself as: straight/heterosexual Gender Identity: male Exam Narrative Exam Narrative: Nurses notes and vital signs reviewed and patient is not hypoxic. General: Well-appearing and in no apparent distress. Skin: Warm, dry, no pallor noted. No rash. Head: Normocephalic, atraumatic. Cardiovascular: Regular Rate and Rhythm without murmur, gallop or rub. Respiratory: The patient is stopping to take his breath while talking but he is not in any distress at the moment the patient also had decreased entry bilaterally at the bases Musculoskeletal: normal ROM, no calf or popliteal tenderness, no lower extremity edema/swelling GI: Abdomen is soft, non-distended. Normal bowel sounds. No masses appreciated. No tenderness to palpation. No rebound, guarding, or rigidity noted. Neurological: A&O x4. No cranial nerve dysfunction observed. Constitutional Vital Signs, click to edit/add: Last Vital Signs Temp 98.3 F 06/21/25 07:45 Pulse 86 06/21/25 07:45 Resp 06/21/25 07:45 BP 146/102 H 06/21/25 07:45 Pulse Ox 93 L 06/21/25 07:45 O2 Del Method Room Air 06/21/25 07:45 Course Vital Signs Vital signs: Vital Signs Temperature 98.3 F 06/21/25 07:45 Pulse Rate 86 06/21/25 07:45 Respiratory Rate 06/21/25 07:45 Blood Pressure 146/102 H 06/21/25 07:45 Pulse Oximetry 93 L 06/21/25 07:45 Oxygen Delivery Method Room Air 06/21/25 07:45 Temperature 98.3 F 06/21/25 07:45 Pulse Rate 86 06/21/25 07:45 Respiratory Rate 20 06/21/25 07:45 Blood Pressure 146/102 H 06/21/25 07:45 Pulse Oximetry 93 L 06/21/25 07:45 Oxygen Delivery Method Room Air 06/21/25 07:45 MDM - SOB/Dyspnea MDM Narrative Medical decision making narrative: The patient EKG showing heart rate of 84 with A-fib no ST elevation The patient CBC and chemistry shows elevated BNP of around 13,000 with a picture in the chest x-ray shows pulmonary congestion and congestive heart failure picture The patient did had a recent change of his medication and he was just started on lisinopril 2.5 mg The patient right now had a Lasix 40 mg IV started and he will be admitted for diuresis The patient case was discussed with and he agreed with the above-mentioned plan Lab Data Labs: Lab Results 06/21/25 Range/Units 08:10 WBC 9.4 (4.0-11.0) 10^3/uL RBC 4.06 L (4.70-6.10) 10^6/uL Hgb 13.1 L (14.0-18.0) g/dL Hct 40.0 L (42.0-54.0) % MCV 98.5 H (80.0-94.0) fL MCH 32.3 (25.9-34.0) pg MCHC 32.8 (29.9-35.2) g/dL RDW 15.6 H (11.0-15.0) % Plt Count 141 L (150-450) 10^3/uL MPV 10.3 (9.5-13.5) fL Neut % (Auto) 81.6 H (43.0-75.0) % Lymph % (Auto) 8.3 L (20.5-60.0) % [place] % (Auto) 8.3 (1.7-12.0) % Eos % (Auto) 1.2 (0.9-7.0) % Baso % (Auto) 0.2 (0.2-2.0) % Neut # (Auto) 7.7 H (1.4-6.5) 10^3/uL Lymph # (Auto) 0.8 L (1.2-3.8) 10^3/uL [place] # (Auto) 0.8 (0.3-0.8) 10^3/uL Eos # (Auto) 0.1 (0.0-0.7) 10^3/uL Baso # (Auto) 0.0 (0.0-0.1) 10^3/uL Abs Immat Gran (auto) 0.04 H (0.00-0.03) 10^3/uL Imm/Tot Granulo (auto) 0.4 (0.0-0.5) % PT 27.4 H (9.0-11.6) sec INR 2.87 Sodium 140 (136-145) mmol/L Potassium 3.5 (3.5-5.1) mmol/L Chloride 106 (98-107) mmol/L Carbon Dioxide 22.1 (21.0-32.0) mmol/L Anion Gap 15.4 BUN 29.0 H (7.0-18.0) mg/dL Creatinine 1.02 (0.70-1.30) mg/dL Est GFR ( Amer) >60 (>=60 mL/min/1.73m^2) Est GFR (Non-Af Amer) >60 (>=60 mL/min/1.73m^2) BUN/Creatinine Ratio 28.4 Glucose 145 H (74-106) mg/dL Calcium 8.7 (8.5-10.1) mg/dL Total Bilirubin 1.1 H (0.2-1.0) mg/dL AST 41 H (15-37) U/L ALT 44 (16-63) U/L Alkaline Phosphatase 166 H (46-116) U/L Troponin I High Sens 12.0 (4.0-76.1) pg/mL NT-Pro-B Natriuret Pep 54772.0 H* (<=1800.0) pg/mL Total Protein 7.8 (6.4-8.2) g/dL Albumin 3.0 L (3.4-5.0) g/dL Globulin 4.8 g/dL Albumin/Globulin Ratio 0.6 Discharge Plan Discharge Chief Complaint: Shortness of Breath/Dyspnea Clinical Impression: Congestive heart failure (CHF), Pulmonary congestion Patient Disposition: Admitted As Inpatient Time of Disposition Decision: 10:11
[2025-06-21] MEDS: FUROSEMIDE 40 MG/4 ML VIAL IVP (10:35)
--- OUTSIDE RECORDS SUMMARY | 2025-06-21 11:21 | XMS_ITS | CCD ---
Author Organization [facility] Care Team Providers Care Carriage Dogger Name Role Phone Yves Sanford Unavailable [phone] MD Ivan Lopez Primary Care Provider BERNADINE Rivero Emergency Provider [phone] RONALD, DR ACEVEDO Primary Care Unavailable KEITH [...] sources) Ondansetron; Translations: [ondansetron] Drug Allergy 01-10-2023 [facility] (1 source) Ondansetron Drug Allergy 11-19-2022 [facility] Medications Current Medications Medication Drug Class(es) [...] Onset: 02-11-2023 Episodic Other aftercare (1 source) skilled nursing (current) use of anticoagulants; Translations: [SENIOR LIVING CURRNT USE ANTICOAGULANTS] Onset: 02-11-2023 Episodic Other aftercare (1 source) Other assisted (current) drug therapy; Translations: [OTH SENIOR LIVING CURRENT DRUG THERAPY] Onset: 02-11-2023 Episodic Other [...] Facil ity Lab Reportson 03-17-2023 Lab Reports [id number] [facility] STOOL CULTUREon 11-26-2022 Campylobacter Culture Final report Normal [facility] Comment on above: Performed By: #### C XSTOOL #### [facility] [address] [place] [address] Dr. Itzel Lerma E coli Shiga Toxin EIA Negative Normal Negative [facility] Comment on above: Performed By: #### C XSTOOL #### [facility] [address] [place] [address] Dr. Itzel Lerma Result 1 Comment Normal [facility] Comment on above: Result Comment: No S almonella or Shigella recovered. Performed By: #### C XSTOOL #### [facility] [address] [address] [address] Itzel Lerma Result Comment: No C ampylobacter species isolated. Salmonella/Shigella Screen Final report Normal [facility] Comment on above: Performed By: #### C XSTOOL #### [facility] [address] [address] [address] Itzel Lerma BNPon 11-24-2022 Natriuretic peptide B (Bld) [Mass/Vol] 1615.0 pg/mL Normal <=1,800.0 [facility] Comment on above: Performed By: #### O JESSE #### [facility] [address] [place] [address] Dr. Itzel Lerma CBC AUTO DIFFon 11-24-2022 BASO # 0.0 103/ul Normal 0.0-0.1 [facility] Comment on above: Performed By: #### C XSTOOL #### [facility] [address] [place] [address] Dr. Itzel Lerma Basophils/100 WBC (Bld) 0.5 % Normal 0.2-2.0 [facility] Comment on above: Performed By: #### C XSTOOL #### [facility] [address] [place] [address] Dr. Itzel Lerma EO # 0.1 103/ul Normal 0.0-0.7 [facility] Comment on above: Performed By: #### C XSTOOL #### [facility] [address] [place] [address] Dr. Itzel Lerma Eosinophils/100 WBC (Bld) 1.4 % Normal 0.9-7.0 [facility] Comment on above: Performed By: #### C XSTOOL #### [facility] [address] [place] [address] Dr. Itzel Lerma Erythrocyte distribution width (RBC) [Ratio] 16.1 % Critically high 11.0-15.0 [facility] Comment on above: Performed By: #### C XSTOOL #### [facility] [address] [place] [address] Dr. Itzel Lerma Hematocrit (Bld) [Volume fraction] 44.1 % Normal 42.0-54.0 [facility] Comment on above: Performed By: #### C XSTOOL #### [facility] [address] [place] [address] Dr. Itzel Lerma Hemoglobin (Bld) [Mass/Vol] 13.9 g/dL Critically low 14.0-18.0 [facility] Comment on above: Performed By: #### C XSTOOL #### [facility] [address] [place] [address] Dr. Itzel Lerma IG # 0.03 10e3/ul Normal 0.00-0.03 [facility] Comment on above: Performed By: #### C XSTOOL #### [facility] [address] [place] [address] Dr. Itzel Lerma IG % 0.5 % Normal 0.0-0.5 [facility] Comment on above: Performed By: #### C XSTOOL #### [facility] [address] [address] [address] Itzel Lerma LYMPH # 0.9 103/ul Critically low 1.2-3.8 [facility] Comment on above: Performed By: #### C XSTOOL #### [facility] [address] [place] [address] Dr. Itzel Lerma Lymphocytes/100 WBC (Bld) 14.4 % Critically low 20.5-60.0 [facility] Comment on above: Performed By: #### C XSTOOL #### [facility] [address] [place] [address] Dr. Itzel Lerma MANUAL DIFF REQ NO Normal [facility] Comment on above: Performed By: #### C XSTOOL #### [facility] [address] [place] [address] Dr. Itzel Lerma MCH (RBC) [Entitic mass] 27.5 pg Normal 25.9-34.0 [facility] Comment on above: Performed By: #### C XSTOOL #### [facility] [address] [place] [address] Dr. Itzel Lerma MCHC (RBC) [Mass/Vol] 31.5 g/dL Normal 29.9-35.2 [facility] Comment on above: Performed By: #### C XSTOOL #### [facility] [address] [place] [address] Dr. Itzel Lerma MCV (RBC) [Entitic vol] 87.3 fL Normal 80.0-94.0 [facility] Comment on above: Performed By: #### C XSTOOL #### [facility] [address] [place] [address] Dr. Itzel Lerma MONO # 0.7 103/ul Normal 0.3-0.8 [facility] Comment on above: Performed By: #### C XSTOOL #### [facility] [address] [place] [address] Dr. Itzel Lerma Monocytes/100 WBC (Bld) 10.6 % Normal 1.7-12.0 [facility] Comment on above: Performed By: #### C XSTOOL #### [facility] [address] [place] [address] Dr. Itzel Lerma NEUT # 4.6 103/ul Normal 1.4-6.5 [facility] Comment on above: Performed By: #### C XSTOOL #### [facility] [address] [place] [address] Dr. Itzel Lerma Neutrophils/100 WBC (Bld) 72.6 % Normal 43.0-75.0 [facility] Comment on above: Performed By: #### C XSTOOL #### [facility] [address] [place] [address] Dr. Itzel Lerma Platelet mean volume (Bld) [Entitic vol] 10.3 fL Normal 9.5-13.5 [facility] Comment on above: Performed By: #### C XSTOOL #### [facility] [address] [place] [address] Dr. Itzel Lerma PLT 279 103/ul Normal 150-450 [facility] Comment on above: Performed By: #### C XSTOOL #### [facility] [address] [place] [address] Dr. Itzel Lerma RBC 5.05 106/ul Normal 4.70-6.10 [facility] Comment on above: Performed By: #### C XSTOOL #### [facility] [address] [place] [address] Dr. Itzel Lerma WBC 6.3 103/ul Normal 4.0-11.0 [facility] Comment on above: Performed By: #### C XSTOOL #### [facility] [address] [place] [address] Dr. Itzel Lerma PROF CHEM 8 (BAS METB)on Anion gap [Moles/Vol] 15.8 mmol/L Normal [facility] Comment on above: Performed By: #### O JESSE #### [facility] [address] [address] [address] Itzel Lerma Calcium [Mass/Vol] 9.1 mg/dL Normal 8.5-10.1 [facility] Comment on above: Performed By: #### O JESSE #### [facility] [address] [address] [address] Itzel Lerma Chloride [Moles/Vol] 102 mmol/L Normal 98-107 [facility] Comment on above: Performed By: #### O JESSE #### [facility] [address] [place] [address] Dr. Itzel Lerma CO2 [Moles/Vol] 19.7 mmol/L Critically low 21.0-32.0 [facility] Comment on above: Performed By: #### O JESSE #### [facility] [address] [place] [address] Dr. Itzel Lerma Creatinine [Mass/Vol] 1.76 mg/dL Critically high 0.70-1.30 [facility] Comment on above: Performed By: #### O JESSE #### [facility] [address] [place] [address] Dr. Itzel Lerma EGFR-AF GAMBIAN 45 mL/min/1.73m2 Critically low >=60 [facility] Comment on above: Performed By: #### O JESSE #### [facility] [address] [place] [address] Dr. Itzel Lerma EGFR-NON AF GAMBIAN 37 mL/min/1.73m2 Critically low >=60 [facility] Comment on above: Performed By: #### O JESSE #### [facility] [address] [place] [address] Dr. Itzel Lerma Glucose [Mass/Vol] 139 mg/dL Critically high 74-106 [facility] Comment on above: Performed By: #### O JESSE #### [facility] [address] [place] [address] Dr. Itzel Lerma Potassium [Moles/Vol] 4.5 mmol/L Normal 3.5-5.1 [facility] Comment on above: Performed By: #### O JESSE #### [facility] [address] [place] [address] Dr. Itzel Lerma Sodium [Moles/Vol] 133 mmol/L Critically low 136-145 [facility] Comment on above: Performed By: #### O JESSE #### [facility] [address] [address] [address] Itzel Lerma Urea nitrogen [Mass/Vol] 53.0 mg/dL Critically high 7.0-18.0 [facility] Comment on above: Performed By: #### O JESSE #### [facility] [address] [place] [address] Dr. Itzel Lerma Urea nitrogen/Creatinine [Mass ratio] 30.1 mg/mg Normal [facility] Comment on above: Performed By: #### O JESSE #### [facility] [address] [place] [address] Dr. Itzel Lerma PROTIMEon 11-24-2022 INR Coag (PPP) [Relative time] 3.98 {INR} Normal [facility] Comment on above: Performed By: #### U A #### [facility] [address] [place] [address] Dr. Itzel Lerma INR GUIDELINES SEE BELOW Normal [facility] Comment on above: Result Comment: MIKAL RED INR: 2.0 - 3.0 CONDITIONS NOT LISTED BELOW 2.5 - 3.5 FOR PROSTHETIC HEART VALVE REPLACEMENT 2.5 - 3.5 RECURRENT THROMBOSIS Performed By: #### U A #### [facility] [address] [place] [address] Dr. Itzel Lerma PT Coag (PPP) [Time] 39.0 s Critically high 9.0-11.6 [facility] Comment on above: Performed By: #### U A #### [facility] [address] [place] [address] Dr. Itzel Lerma PTTon 11-24-2022 aPTT Coag (Bld) [Time] 44.8 s Critically high 22.3-36.2 [facility] Comment on above: Performed By: #### U A #### [facility] [address] [address] [address] Itzel Lerma XR KUB 1 VIEWon [...] WILSON JOHN Date: 2022-11-24 07:43 Normal [facility] CBC AUTO DIFFon 11-23-2022 BASO # 0.0 103/ul Normal 0.0-0.1 [facility] Comment on above: Performed By: #### O SMO #### [facility] [address] [place] [address] Dr. Itzel Lerma Basophils/100 WBC (Bld) 0.3 % Normal 0.2-2.0 [facility] Comment on above: Performed By: #### O SMO #### [facility] [address] [place] [address] Dr. Itzel Lerma EO # 0.1 103/ul Normal 0.0-0.7 [facility] Comment on above: Performed By: #### O SMO #### [facility] [address] [address] [address] Itzel Lerma Eosinophils/100 WBC (Bld) 1.6 % Normal 0.9-7.0 [facility] Comment on above: Performed By: #### O SMO #### [facility] [address] [place] [address] Dr. Itzel Lerma Erythrocyte distribution width (RBC) [Ratio] 15.9 % Critically high 11.0-15.0 [facility] Comment on above: Performed By: #### O SMO #### [facility] [address] [address] [address] Itzel Lerma Hematocrit (Bld) [Volume fraction] 42.4 % Normal 42.0-54.0 [facility] Comment on above: Performed By: #### O SMO #### [facility] [address] [address] [address] Itzel Lerma Hemoglobin (Bld) [Mass/Vol] 13.1 g/dL Critically low 14.0-18.0 [facility] Comment on above: Performed By: #### O SMO #### [facility] [address] [address] [address] Itzel Lerma IG # 0.04 10e3/ul Critically high 0.00-0.03 [facility] Comment on above: Performed By: #### O SMO #### [facility] [address] [address] [address] Itzel Lerma IG % 0.7 % Critically high 0.0-0.[address] [facility] Comment on above: Performed By: #### O SMO #### [facility] [address] [address] [address] Itzel Lerma LYMPH # 0.9 103/ul Critically low 1.2-3.8 [facility] Comment on above: Performed By: #### O SMO #### [facility] [address] [address] [address] Itzel Lerma Lymphocytes/100 WBC (Bld) 15.6 % Critically low 20.5-60.0 [facility] Comment on above: Performed By: #### O SMO #### [facility] [address] [address] [address] Itzel Lerma MANUAL DIFF REQ NO Normal [facility] Comment on above: Performed By: #### O SMO #### [facility] [address] [place] [address] Dr. Itzel Lerma MCH (RBC) [Entitic mass] 27.5 pg Normal 25.9-34.0 [facility] Comment on above: Performed By: #### O SMO #### [facility] [address] [address] [address] Itzel Lerma MCHC (RBC) [Mass/Vol] 30.9 g/dL Normal 29.9-35.2 [facility] Comment on above: Performed By: #### O SMO #### [facility] [address] [place] [address] Dr. Itzel Lerma MCV (RBC) [Entitic vol] 88.9 fL Normal 80.0-94.0 [facility] Comment on above: Performed By: #### O SMO #### [facility] [address] [place] [address] Dr. Itzel Lerma MONO # 0.7 103/ul Normal 0.3-0.8 [facility] Comment on above: Performed By: #### O SMO #### [facility] [address] [place] [address] Dr. Itzel Lerma Monocytes/100 WBC (Bld) 12.1 % Critically high 1.7-12.0 [facility] Comment on above: Performed By: #### O SMO #### [facility] [address] [place] [address] Dr. Itzel Lerma NEUT # 4.0 103/ul Normal 1.4-6.5 [facility] Comment on above: Performed By: #### O SMO #### [facility] [address] [place] [address] Dr. Itzel Lerma Neutrophils/100 WBC (Bld) 69.7 % Normal 43.0-75.0 [facility] Comment on above: Performed By: #### O SMO #### [facility] [address] [place] [address] Dr. Itzel Lerma Platelet mean volume (Bld) [Entitic vol] 10.6 fL Normal 9.5-13.5 [facility] Comment on above: Performed By: #### O SMO #### [facility] [address] [place] [address] Dr. Itzel Lerma PLT 200 103/ul Normal 150-450 [facility] Comment on above: Performed By: #### O SMO #### [facility] [address] [address] [address] Itzel Lerma RBC 4.77 106/ul Normal 4.70-6.10 [facility] Comment on above: Performed By: #### O SMO #### [facility] [address] [place] [address] Dr. Itzel Lerma WBC 5.8 103/ul Normal 4.0-11.0 [facility] Comment on above: Performed By: #### O SMO #### [facility] [address] [place] [address] Dr. Itzel Lerma PROF CHEM 8 (BAS METB)on Anion gap [Moles/Vol] 14.3 mmol/L Normal [facility] Comment on above: Performed By: #### O SMO #### [facility] [address] [place] [address] Dr. Itzel Lerma Calcium [Mass/Vol] 9.1 mg/dL Normal 8.5-10.1 [facility] Comment on above: Performed By: #### O SMO #### [facility] [address] [place] [address] Dr. Itzel Lerma Chloride [Moles/Vol] 102 mmol/L Normal 98-107 [facility] Comment on above: Performed By: #### O SMO #### [facility] [address] [place] [address] Dr. Itzel Lerma CO2 [Moles/Vol] 21.4 mmol/L Normal 21.0-32.[address] [facility] Comment on above: Performed By: #### O SMO #### [facility] [address] [place] [address] Dr. Itzel Lerma Creatinine [Mass/Vol] 1.58 mg/dL Critically high 0.70-1.30 [facility] Comment on above: Performed By: #### O SMO #### [facility] [address] [place] [address] Dr. Itzel Lerma EGFR-AF GAMBIAN 51 mL/min/1.73m2 Critically low >=60 [facility] Comment on above: Performed By: #### O SMO #### [facility] [address] [address] [address] Itzel Lerma EGFR-NON AF GAMBIAN 42 mL/min/1.73m2 Critically low >=60 [facility] Comment on above: Performed By: #### O SMO #### [facility] [address] [address] [address] Itzel Lerma Glucose [Mass/Vol] 125 mg/dL Critically high 74-106 [facility] Comment on above: Performed By: #### O SMO #### [facility] [address] [address] [address] Itzel Lerma Potassium [Moles/Vol] 4.7 mmol/L Normal 3.5-5.1 [facility] Comment on above: Performed By: #### O SMO #### [facility] [address] [address] [address] Itzel Lerma Sodium [Moles/Vol] 133 mmol/L Critically low 136-145 [facility] Comment on above: Performed By: #### O SMO #### [facility] [address] [address] [address] Itzel Lerma Urea nitrogen [Mass/Vol] 45.0 mg/dL Critically high 7.0-18.0 [facility] Comment on above: Performed By: #### O SMO #### [facility] [address] [address] [address] Itzel Lerma Urea nitrogen/Creatinine [Mass ratio] 28.5 mg/mg Normal [facility] Comment on above: Performed By: #### O SMO #### [facility] [address] [address] [address] Itzel Lerma PROTIMEon 11-23-2022 INR Coag (PPP) [Relative time] 4.89 {INR} Critically high [facility] Comment on above: Performed By: #### P T #### [facility] [address] [address] [address] Iztel Lerma INR GUIDELINES SEE BELOW Normal [facility] Comment on above: Result Comment: MIKAL RED INR: 2.0 - 3.0 CONDITIONS NOT LISTED BELOW 2.5 - 3.5 FOR PROSTHETIC HEART VALVE REPLACEMENT 2.5 - 3.5 RECURRENT THROMBOSIS Performed By: #### P T #### [facility] [address] [place] [address] Dr. Itzel Lerma PT Coag (PPP) [Time] 47.4 s Critically high 9.0-11.6 [facility] Comment on above: Performed By: #### P T #### [facility] [address] [place] [address] Dr. Itzel Lerma CBC AUTO DIFFon 11-22-2022 BASO # 0.0 103/ul Normal 0.0-0.1 [facility] Comment on above: Performed By: #### C BC #### [facility] [address] [place] [address] Dr. Itzel Lemra Basophils/100 WBC (Bld) 0.4 % Normal 0.2-2.0 [facility] Comment on above: Performed By: #### C BC #### [facility] [address] [place] [address] Dr. Itzel Lerma EO # 0.1 103/ul Normal 0.0-0.7 [facility] Comment on above: Performed By: #### C BC #### [facility] [address] [place] [address] Dr. Itzel Lerma Eosinophils/100 WBC (Bld) 1.4 % Normal 0.9-7.0 [facility] Comment on above: Performed By: #### C BC #### [facility] [address] [place] [address] Dr. Itzel Lerma Erythrocyte distribution width (RBC) [Ratio] 16.3 % Critically high 11.0-15.0 [facility] Comment on above: Performed By: #### C BC #### [facility] [address] [place] [address] Dr. Itzel Lerma Hematocrit (Bld) [Volume fraction] 41.1 % Critically low 42.0-54.0 [facility] Comment on above: Performed By: #### C BC #### [facility] [address] [place] [address] Dr. Itzel Lerma Hemoglobin (Bld) [Mass/Vol] 12.5 g/dL Critically low 14.0-18.0 [facility] Comment on above: Performed By: #### C BC #### [facility] [address] [place] [address] Dr. Itzel Lerma IG # 0.03 10e3/ul Normal 0.00-0.03 [facility] Comment on above: Performed By: #### C BC #### [facility] [address] [place] [address] Dr. Itzel Lerma IG % 0.4 % Normal 0.0-0.5 [facility] Comment on above: Performed By: #### C BC #### [facility] [address] [place] [address] Dr. Itzel Lerma LYMPH # 1.0 103/ul Critically low 1.2-3.8 [facility] Comment on above: Performed By: #### C BC #### [facility] [address] [place] [address] Dr. Itzel Lerma Lymphocytes/100 WBC (Bld) 14.3 % Critically low 20.5-60.0 [facility] Comment on above: Performed By: #### C BC #### [facility] [address] [place] [address] Dr. Itzel Lerma MANUAL DIFF REQ NO Normal [facility] Comment on above: Performed By: #### C BC #### [facility] [address] [place] [address] Dr. Itzel Lerma MCH (RBC) [Entitic mass] 27.4 pg Normal 25.9-34.0 [facility] Comment on above: Performed By: #### C BC #### [facility] [address] [place] [address] Dr. Itzel Lerma MCHC (RBC) [Mass/Vol] 30.4 g/dL Normal 29.9-35.2 [facility] Comment on above: Performed By: #### C BC #### [facility] [address] [place] [address] Dr. Itzel Lerma MCV (RBC) [Entitic vol] 89.9 fL Normal 80.0-94.0 [facility] Comment on above: Performed By: #### C BC #### [facility] [address] [place] [address] Dr. Itzel Lerma MONO # 0.8 103/ul Normal 0.3-0.8 [facility] Comment on above: Performed By: #### C BC #### [facility] [address] [place] [address] Dr. Itzel Lerma Monocytes/100 WBC (Bld) 11.1 % Normal 1.7-12.0 [facility] Comment on above: Performed By: #### C BC #### [facility] [address] [place] [address] Dr. Itzel Lerma NEUT # 5.2 103/ul Normal 1.4-6.5 [facility] Comment on above: Performed By: #### C BC #### [facility] [address] [place] [address] Dr. Itzel Lerma Neutrophils/100 WBC (Bld) 72.4 % Normal 43.0-75.0 [facility] Comment on above: Performed By: #### C BC #### [facility] [address] [place] [address] Dr. Itzel Lerma Platelet mean volume (Bld) [Entitic vol] 10.1 fL Normal 9.5-13.5 [facility] Comment on above: Performed By: #### C BC #### [facility] [address] [place] [address] Dr. Itzel Lerma PLT 210 103/ul Normal 150-450 [facility] Comment on above: Performed By: #### C BC #### [facility] [address] [place] [address] Dr. Itzel Lerma RBC 4.57 106/ul Critically low 4.70-6.10 [facility] Comment on above: Performed By: #### C BC #### [facility] [address] [place] [address] Dr. Itzel Lerma WBC 7.2 103/ul Normal 4.0-11.0 [facility] Comment on above: Performed By: #### C BC #### [facility] [address] [address] [address] Itzel Lerma PROF CHEM 8 (BAS METB)on Anion gap [Moles/Vol] 13.8 mmol/L Normal [facility] Comment on above: Performed By: #### O SMO #### [facility] [address] [place] [address] Dr. Itzel Lerma Calcium [Mass/Vol] 8.7 mg/dL Normal 8.5-10.1 [facility] Comment on above: Performed By: #### O SMO #### [facility] [address] [place] [address] Dr. Itzel Lerma Chloride [Moles/Vol] 102 mmol/L Normal 98-107 [facility] Comment on above: Performed By: #### O SMO #### [facility] [address] [place] [address] Dr. Itzel Lerma CO2 [Moles/Vol] 20.6 mmol/L Critically low 21.0-32.0 [facility] Comment on above: Performed By: #### O SMO #### [facility] [address] [place] [address] Dr. Itzel Lerma Creatinine [Mass/Vol] 1.49 mg/dL Critically high 0.70-1.30 [facility] Comment on above: Performed By: #### O SMO #### [facility] [address] [place] [address] Dr. Itzel Lerma EGFR-AF GAMBIAN 55 mL/min/1.73m2 Critically low >=60 [facility] Comment on above: Performed By: #### O SMO #### [facility] [address] [place] [address] Dr. Itzel Lerma EGFR-NON AF GAMBIAN 45 mL/min/1.73m2 Critically low >=60 [facility] Comment on above: Performed By: #### O SMO #### [facility] [address] [place] [address] Dr. Itzel Lerma Glucose [Mass/Vol] 105 mg/dL Normal 74-106 [facility] Comment on above: Performed By: #### O SMO #### [facility] [address] [address] [address] Itzel Lrema Potassium [Moles/Vol] 4.4 mmol/L Normal 3.5-5.1 [facility] Comment on above: Performed By: #### O SMO #### [facility] [address] [address] [address] Itzel Lerma Sodium [Moles/Vol] 132 mmol/L Critically low 136-145 [facility] Comment on above: Performed By: #### O SMO #### [facility] [address] [address] [address] Itzel Lerma Urea nitrogen [Mass/Vol] 47.0 mg/dL Critically high 7.0-18.0 [facility] Comment on above: Performed By: #### O SMO #### [facility] [address] [place] [address] Dr. Itzel Lerma Urea nitrogen/Creatinine [Mass ratio] 31.5 mg/mg Normal [facility] Comment on above: Performed By: #### O SMO #### [facility] [address] [place] [address] Dr. Itzel Lerma PROTIMEon 11-22-2022 INR Coag (PPP) [Relative time] 5.94 {INR} Critically high [facility] Comment on above: Performed By: #### C BC #### [facility] [address] [place] [address] Dr. Itzel Lerma INR GUIDELINES SEE BELOW Normal [facility] Comment on above: Result Comment: MIKAL RED INR: 2.0 - 3.0 CONDITIONS NOT LISTED BELOW 2.5 - 3.5 FOR PROSTHETIC HEART VALVE REPLACEMENT 2.5 - 3.5 RECURRENT THROMBOSIS Performed By: #### C BC #### [facility] [address] [place] [address] Dr. Itzel Lerma PT Coag (PPP) [Time] 56.9 s Critically high 9.0-11.6 [facility] Comment on above: Performed By: #### C BC #### [facility] [address] [place] [address] Dr. Itzel Lerma XR KUB 1 VIEWon [...] DORIAN YODER Date: 2022-11-22 08:06 Normal [facility] CBC AUTO DIFFon 11-21-2022 BASO # 0.0 103/ul Normal 0.0-0.1 [facility] Comment on above: Performed By: #### O JESSE #### [facility] [address] [place] [address] Dr. Itzel Lerma Basophils/100 WBC (Bld) 0.1 % Critically low 0.2-2.0 [facility] Comment on above: Performed By: #### O JESSE #### [facility] [address] [place] [address] Dr. Itzel Lerma EO # 0.1 103/ul Normal 0.0-0.7 [facility] Comment on above: Performed By: #### O EJSSE #### [facility] [address] [place] [address] Dr. Itzel Lerma Eosinophils/100 WBC (Bld) 1.5 % Normal 0.9-7.0 [facility] Comment on above: Performed By: #### O JESSE #### [facility] [address] [place] [address] Dr. Itzel Lerma Erythrocyte distribution width (RBC) [Ratio] 16.3 % Critically high 11.0-15.0 [facility] Comment on above: Performed By: #### O JESSE #### [facility] [address] [place] [address] Dr. Itzel Lerma Hematocrit (Bld) [Volume fraction] 42.6 % Normal 42.0-54.0 [facility] Comment on above: Performed By: #### O JESSE #### [facility] [address] [place] [address] Dr. Itzel Lerma Hemoglobin (Bld) [Mass/Vol] 13.3 g/dL Critically low 14.0-18.0 [facility] Comment on above: Performed By: #### O JESSE #### [facility] [address] [place] [address] Dr. Itzel Lerma IG # 0.02 10e3/ul Normal 0.00-0.03 [facility] Comment on above: Performed By: #### O JESSE #### [facility] [address] [place] [address] Dr. Itzel Lerma IG % 0.2 % Normal 0.0-0.5 [facility] Comment on above: Performed By: #### O JESSE #### [facility] [address] [place] [address] Dr. Itzel Lerma LYMPH # 1.0 103/ul Critically low 1.2-3.8 [facility] Comment on above: Performed By: #### O JESSE #### [facility] [address] [place] [address] Dr. Itzel Lerma Lymphocytes/100 WBC (Bld) 12.5 % Critically low 20.5-60.0 [facility] Comment on above: Performed By: #### O JESSE #### [facility] [address] [place] [address] Dr. Itzel Lerma MANUAL DIFF REQ NO Normal [facility] Comment on above: Performed By: #### O JESSE #### [facility] [address] [place] [address] Dr. Itzel Lerma MCH (RBC) [Entitic mass] 27.8 pg Normal 25.9-34.0 [facility] Comment on above: Performed By: #### O JESSE #### [facility] [address] [place] [address] Dr. Itzel Lerma MCHC (RBC) [Mass/Vol] 31.2 g/dL Normal 29.9-35.2 [facility] Comment on above: Performed By: #### O JESSE #### [facility] [address] [place] [address] Dr. Itzel Lerma MCV (RBC) [Entitic vol] 88.9 fL Normal 80.0-94.0 [facility] Comment on above: Performed By: #### O JESSE #### [facility] [address] [place] [address] Dr. Itzel Lerma MONO # 0.9 103/ul Critically high 0.3-0.[address] [facility] Comment on above: Performed By: #### O JESSE #### [facility] [address] [place] [address] Dr. Itzel Lerma Monocytes/100 WBC (Bld) 10.6 % Normal 1.7-12.0 [facility] Comment on above: Performed By: #### O JESSE #### [facility] [address] [place] [address] Dr. Itzel Lerma NEUT # 6.1 103/ul Normal 1.4-6.5 [facility] Comment on above: Performed By: #### O JESSE #### [facility] [address] [place] [address] Dr. Itzel Lerma Neutrophils/100 WBC (Bld) 75.1 % Critically high 43.0-75.0 [facility] Comment on above: Performed By: #### O EJSSE #### [facility] [address] [place] [address] Dr. Itzel Lerma Platelet mean volume (Bld) [Entitic vol] 9.9 fL Normal 9.5-13.5 [facility] Comment on above: Performed By: #### O JESSE #### [facility] [address] [place] [address] Dr. Itzel Lerma PLT 239 103/ul Normal 150-450 [facility] Comment on above: Performed By: #### O JESSE #### [facility] [address] [place] [address] Dr. Itzel Lerma RBC 4.79 106/ul Normal 4.70-6.10 [facility] Comment on above: Performed By: #### O JESSE #### [facility] [address] [address] [address] Itzel Lerma WBC 8.1 103/ul Normal 4.0-11.0 [facility] Comment on above: Performed By: #### O JESSE #### [facility] [address] [place] [address] Dr. Itzel Lerma PROF CHEM 8 (BAS METB)on Anion gap [Moles/Vol] 15.4 mmol/L Normal [facility] Comment on above: Performed By: #### U A #### [facility] [address] [place] [address] Dr. Itzel Lerma Calcium [Mass/Vol] 8.9 mg/dL Normal 8.5-10.1 [facility] Comment on above: Performed By: #### U A #### [facility] [address] [place] [address] Dr. Itzel Lerma Chloride [Moles/Vol] 102 mmol/L Normal 98-107 [facility] Comment on above: Performed By: #### U A #### [facility] [address] [place] [address] Dr. Itzel Lerma CO2 [Moles/Vol] 18.7 mmol/L Critically low 21.0-32.0 [facility] Comment on above: Performed By: #### U A #### [facility] [address] [place] [address] Dr. Itzel Lerma Creatinine [Mass/Vol] 1.47 mg/dL Critically high 0.70-1.30 [facility] Comment on above: Performed By: #### U A #### [facility] [address] [place] [address] Dr. Itzel Lerma EGFR-AF GAMBIAN 56 mL/min/1.73m2 Critically low >=60 [facility] Comment on above: Performed By: #### U A #### [facility] [address] [place] [address] Dr. Itzel Lerma EGFR-NON AF GAMBIAN 46 mL/min/1.73m2 Critically low >=60 [facility] Comment on above: Performed By: #### U A #### [facility] [address] [address] [address] Itzel Lerma Glucose [Mass/Vol] 103 mg/dL Normal 74-106 [facility] Comment on above: Performed By: #### U A #### [facility] [address] [id number] Itzel Lerma Potassium [Moles/Vol] 4.1 mmol/L Normal 3.5-5.1 [facility] Comment on above: Performed By: #### U A #### [facility] [address] [address] [address] Itzel Lerma Sodium [Moles/Vol] 132 mmol/L Critically low 136-145 Th [facility] Comment on above: Performed By: #### U A #### [facility] [address] [address] [address] Itzel Lerma Urea nitrogen [Mass/Vol] 47.0 mg/dL Critically high 7.0-18.0 [facility] Comment on above: Performed By: #### U A #### [facility] [address] [place] [address] Dr. Itzel Lerma Urea nitrogen/Creatinine [Mass ratio] 32.0 mg/mg Normal [facility] Comment on above: Performed By: #### U A #### [facility] [address] [place] [address] Dr. Itzel Lerma XR KUB 1 VIEWon [...] DORIAN YODER Date: 2022-11-21 08:08 Normal [facility] CBC AUTO DIFFon 11-20-2022 BASO # 0.0 103/ul Normal 0.0-0.1 [facility] Comment on above: Performed By: #### O SMO #### [facility] [address] [address] [address] Itzel Lerma Basophils/100 WBC (Bld) 0.3 % Normal 0.2-2.0 [facility] Comment on above: Performed By: #### O SMO #### [facility] [address] [address] [address] Itzel Lerma EO # 0.1 103/ul Normal 0.0-0.7 [facility] Comment on above: Performed By: #### O SMO #### [facility] [address] [place] [address] Dr. Itzel Lerma Eosinophils/100 WBC (Bld) 0.8 % Critically low 0.9-7.0 [facility] Comment on above: Performed By: #### O SMO #### [facility] [address] [address] [address] Itzel Lerma Erythrocyte distribution width (RBC) [Ratio] 16.2 % Critically high 11.0-15.0 [facility] Comment on above: Performed By: #### O SMO #### [facility] [address] [place] [address] Dr. Itzel Lerma Hematocrit (Bld) [Volume fraction] 46.2 % Normal 42.0-54.0 [facility] Comment on above: Performed By: #### O SMO #### [facility] [address] [address] [address] Itzel Lerma Hemoglobin (Bld) [Mass/Vol] 14.2 g/dL Normal 14.0-18.0 [facility] Comment on above: Performed By: #### O SMO #### [facility] [address] [address] [address] Itzel Lerma IG # 0.04 10e3/ul Critically high 0.00-0.03 [facility] Comment on above: Performed By: #### O SMO #### [facility] [address] [place] [address] Dr. Itzel Lerma IG % 0.3 % Normal 0.0-0.5 [facility] Comment on above: Performed By: #### O SMO #### [facility] [address] [place] [address] Dr. Itzel Lerma LYMPH # 1.3 103/ul Normal 1.2-3.8 [facility] Comment on above: Performed By: #### O SMO #### [facility] [address] [place] [address] Dr. Itzel Lerma Lymphocytes/100 WBC (Bld) 10.4 % Critically low 20.5-60.0 [facility] Comment on above: Performed By: #### O SMO #### [facility] [address] [place] [address] Dr. Itzel Lerma MANUAL DIFF REQ NO Normal [facility] Comment on above: Performed By: #### O SMO #### [facility] [address] [place] [address] Dr. Itzel Lerma MCH (RBC) [Entitic mass] 27.6 pg Normal 25.9-34.0 [facility] Comment on above: Performed By: #### O SMO #### [facility] [address] [place] [address] Dr. Itzel Lerma MCHC (RBC) [Mass/Vol] 30.7 g/dL Normal 29.9-35.2 [facility] Comment on above: Performed By: #### O SMO #### [facility] [address] [place] [address] Dr. Itzel Lerma MCV (RBC) [Entitic vol] 89.9 fL Normal 80.0-94.0 [facility] Comment on above: Performed By: #### O SMO #### [facility] [address] [place] [address] Dr. Itzel Lerma MONO # 1.1 103/ul Critically high 0.3-0.[address] [facility] Comment on above: Performed By: #### O SMO #### [facility] [address] [address] [address] Itzel Lerma Monocytes/100 WBC (Bld) 9.5 % Normal 1.7-12.0 [facility] Comment on above: Performed By: #### O SMO #### [facility] [address] [address] [address] Itzel Lerma NEUT # 9.5 103/ul Critically high 1.4-6.[address] [facility] Comment on above: Performed By: #### O SMO #### [facility] [address] [address] [address] Itzel Lerma Neutrophils/100 WBC (Bld) 78.7 % Critically high 43.0-75.0 [facility] Comment on above: Performed By: #### O SMO #### [facility] [address] [place] [address] Dr. Itzel Lerma Platelet mean volume (Bld) [Entitic vol] 9.6 fL Normal 9.5-13.5 [facility] Comment on above: Performed By: #### O SMO #### [facility] [address] [place] [address] Dr. Itzel Lerma PLT 280 103/ul Normal 150-450 [facility] Comment on above: Performed By: #### O SMO #### [facility] [address] [place] [address] Dr. Itzel Lerma RBC 5.14 106/ul Normal 4.70-6.10 [facility] Comment on above: Performed By: #### O SMO #### [facility] [address] [place] [address] Dr. Itzel Lerma WBC 12.0 103/ul Critically high 4.0-11.[address] [facility] Comment on above: Performed By: #### O SMO #### [facility] [address] [place] [address] Dr. Itzel Lerma LACTATE/LACTIC ACIDon 2022 Lactate [Moles/Vol] 0.9 mmol/L Normal 0.4-1.9 [facility] Comment on above: Performed By: #### C BC #### [facility] [address] [address] [address] Itzel Lerma PROF CHEM 8 (BAS METB)on Anion gap [Moles/Vol] 14.9 mmol/L Normal [facility] Comment on above: Performed By: #### B MP #### [facility] [address] [address] [address] Itzel Lerma Calcium [Mass/Vol] 9.7 mg/dL Normal 8.5-10.1 [facility] Comment on above: Performed By: #### B MP #### [facility] [address] [address] [address] Itzel Lerma Chloride [Moles/Vol] 99 mmol/L Normal 98-107 [facility] Comment on above: Performed By: #### B MP #### [facility] [address] [address] [address] Itzel Lerma CO2 [Moles/Vol] 22.7 mmol/L Normal 21.0-32.[address] [facility] Comment on above: Performed By: #### B MP #### [facility] [address] [address] [address] Itzel Lerma Creatinine [Mass/Vol] 2.07 mg/dL Critically high 0.70-1.30 [facility] Comment on above: Performed By: #### B MP #### [facility] [address] [address] [address] Itzel Lerma EGFR-AF GAMBIAN 38 mL/min/1.73m2 Critically low >=60 [facility] Comment on above: Performed By: #### B MP #### [facility] [address] [address] [address] Itzel Lerma EGFR-NON AF GAMBIAN 31 mL/min/1.73m2 Critically low >=60 [facility] Comment on above: Performed By: #### B MP #### [facility] [address] [address] [address] Itzel Lerma Glucose [Mass/Vol] 144 mg/dL Critically high 74-106 [facility] Comment on above: Performed By: #### B MP #### [facility] [address] [address] [address] Itzel Lerma Potassium [Moles/Vol] 4.6 mmol/L Normal 3.5-5.1 [facility] Comment on above: Performed By: #### B MP #### [facility] [address] [address] [address] Itzel Lerma Sodium [Moles/Vol] 132 mmol/L Critically low 136-145 [facility] Comment on above: Performed By: #### B MP #### [facility] [address] [place] [address] Dr. Itzel Lerma Urea nitrogen [Mass/Vol] 52.0 mg/dL Critically high 7.0-18.0 [facility] Comment on above: Performed By: #### B MP #### [facility] [address] [place] [address] Dr. Itzel Lerma Urea nitrogen/Creatinine [Mass ratio] 25.1 mg/mg Normal [facility] Comment on above: Performed By: #### B MP #### [facility] [address] [place] [address] Dr. Itzel Lerma PROTIMEon 11-20-2022 INR Coag (PPP) [Relative time] 2.54 {INR} Normal [facility] Comment on above: Performed By: #### C BC #### [facility] [address] [place] [address] Dr. Itzel Lerma INR GUIDELINES SEE BELOW Normal [facility] Comment on above: Result Comment: MIKAL RED INR: 2.0 - 3.0 CONDITIONS NOT LISTED BELOW 2.5 - 3.5 FOR PROSTHETIC HEART VALVE REPLACEMENT 2.5 - 3.5 RECURRENT THROMBOSIS Performed By: #### C BC #### [facility] [address] [place] [address] Dr. Itzel Lerma PT Coag (PPP) [Time] 25.5 s Critically high 9.0-11.6 [facility] Comment on above: Performed By: #### C BC #### [facility] [address] [place] [address] Dr. Itzel Lerma XR KUB 1 VIEWon [...] DORIAN YODER Date: 2022-11-20 10:52 Normal [facility] CBC AUTO DIFFon 11-19-2022 BASO # 0.0 103/ul Normal 0.0-0.1 [facility] Comment on above: Performed By: #### O SMO #### [facility] [address] [address] [address] Itzel Lerma Basophils/100 WBC (Bld) 0.2 % Normal 0.2-2.0 [facility] Comment on above: Performed By: #### O SMO #### [facility] [address] [place] [address] Dr. Itzel Lerma EO # 0.1 103/ul Normal 0.0-0.7 [facility] Comment on above: Performed By: #### O SMO #### [facility] [address] [address] [address] Itzel Lerma Eosinophils/100 WBC (Bld) 1.1 % Normal 0.9-7.0 [facility] Comment on above: Performed By: #### O SMO #### [facility] [address] [address] [address] Itzel Lerma Erythrocyte distribution width (RBC) [Ratio] 16.3 % Critically high 11.0-15.0 [facility] Comment on above: Performed By: #### O SMO #### [facility] [address] [address] [address] Itzel Lerma Hematocrit (Bld) [Volume fraction] 47.9 % Normal 42.0-54.0 [facility] Comment on above: Performed By: #### O SMO #### [facility] [address] [place] [address] Dr. Itzel Lerma Hemoglobin (Bld) [Mass/Vol] 14.7 g/dL Normal 14.0-18.0 [facility] Comment on above: Performed By: #### O SMO #### [facility] [address] [place] [address] Dr. Itzel Lerma IG # 0.04 10e3/ul Critically high 0.00-0.03 [facility] Comment on above: Performed By: #### O SMO #### [facility] [address] [place] [address] Dr. Itzel Lerma IG % 0.4 % Normal 0.0-0.5 [facility] Comment on above: Performed By: #### O SMO #### [facility] [address] [place] [address] Dr. Itzel Lerma LYMPH # 0.9 103/ul Critically low 1.2-3.8 [facility] Comment on above: Performed By: #### O SMO #### [facility] [address] [place] [address] Dr. Itzel Lerma Lymphocytes/100 WBC (Bld) 9.7 % Critically low 20.5-60.0 [facility] Comment on above: Performed By: #### O SMO #### [facility] [address] [place] [address] Dr. Itzel Lerma MANUAL DIFF REQ NO Normal [facility] Comment on above: Performed By: #### O SMO #### [facility] [address] [place] [address] Dr. Itzel Lerma MCH (RBC) [Entitic mass] 27.4 pg Normal 25.9-34.0 [facility] Comment on above: Performed By: #### O SMO #### [facility] [address] [place] [address] Dr. Itzel Lerma MCHC (RBC) [Mass/Vol] 30.7 g/dL Normal 29.9-35.2 [facility] Comment on above: Performed By: #### O SMO #### [facility] [address] [address] [address] Itzel Lerma MCV (RBC) [Entitic vol] 89.2 fL Normal 80.0-94.0 [facility] Comment on above: Performed By: #### O SMO #### [facility] [address] [address] [address] Itzel Lerma MONO # 0.7 103/ul Normal 0.3-0.8 [facility] Comment on above: Performed By: #### O SMO #### [facility] [address] [place] [address] Dr. Itzel Lerma Monocytes/100 WBC (Bld) 7.9 % Normal 1.7-12.0 [facility] Comment on above: Performed By: #### O SMO #### [facility] [address] [place] [address] Dr. Itzel Lerma NEUT # 7.6 103/ul Critically high 1.4-6.[address] [facility] Comment on above: Performed By: #### O SMO #### [facility] [address] [place] [address] Dr. Itzel Lerma Neutrophils/100 WBC (Bld) 80.7 % Critically high 43.0-75.0 [facility] Comment on above: Performed By: #### O SMO #### [facility] [address] [place] [address] Dr. Itzel Lerma Platelet mean volume (Bld) [Entitic vol] 10.0 fL Normal 9.5-13.5 [facility] Comment on above: Performed By: #### O SMO #### [facility] [address] [place] [address] Dr. Itzel Lerma PLT 276 103/ul Normal 150-450 [facility] Comment on above: Performed By: #### O SMO #### [facility] [address] [place] [address] Dr. Itzel Lerma RBC 5.37 106/ul Normal 4.70-6.10 [facility] Comment on above: Performed By: #### O SMO #### [facility] [address] [place], [place] [address] Dr. Itzel Lerma WBC 9.4 103/ul Normal 4.0-11.0 [facility] Comment on above: Performed By: #### O SMO #### [facility] [address] [place], [place] [address] ABD/PELVIS WO CONon [...] SHAR TREJO Date: 2022-11-19 19:32 Normal [facility]31 SARS-CoV-2 (COVID-19) RNA JUDY+probe Ql (Unsp spec) Not detected Normal NOT DETECTED [facility] Comment on above: Result Comment: When diagnostic [...] for this test is supported by the [place] of [employer] and Human Service's declaration that [...] used). Performed By: #### U A #### [facility] [address] [place] [address] Dr. Itzel Lerma PROF CHEM 8 (BAS METB)on Anion gap [Moles/Vol] 10.2 mmol/L Normal [facility] Comment on above: Performed By: #### U A #### [facility] [address] [place] [address] Dr. Itzel Lerma Calcium [Mass/Vol] 9.8 mg/dL Normal 8.5-10.1 [facility] Comment on above: Performed By: #### U A #### [facility] [address] [place] [address] Dr. Itzel Lerma Chloride [Moles/Vol] 99 mmol/L Normal 98-107 [facility] Comment on above: Performed By: #### U A #### [facility] [address] [place] [address] Dr. Itzel Lerma CO2 [Moles/Vol] 27.4 mmol/L Normal 21.0-32.[address] [facility] Comment on above: Performed By: #### U A #### [facility] [address] [place] [address] Dr. Itzel Lerma Creatinine [Mass/Vol] 2.02 mg/dL Critically high 0.70-1.30 [facility] Comment on above: Performed By: #### U A #### [facility] [address] [address] [address] Itzel Lerma EGFR-AF GAMBIAN 39 mL/min/1.73m2 Critically low >=60 [facility] Comment on above: Performed By: #### U A #### [facility] [address] [address] [address] Itzel Lerma EGFR-NON AF GAMBIAN 32 mL/min/1.73m2 Critically low >=60 [facility] Comment on above: Performed By: #### U A #### [facility] [address] [address] [address] Itzel Lerma Glucose [Mass/Vol] 148 mg/dL Critically high 74-106 [facility] Comment on above: Performed By: #### U A #### [facility] [address] [address] [address] Itzel Lerma Potassium [Moles/Vol] 5.6 mmol/L Critically high 3.5-5.1 [facility] Comment on above: Performed By: #### U A #### [facility] [address] [address] [address] Itzel Lerma Sodium [Moles/Vol] 131 mmol/L Critically low 136-145 [facility] Comment on above: Performed By: #### U A #### [facility] [address] [address] [address] Itzel Lerma Urea nitrogen [Mass/Vol] 44.0 mg/dL Critically high 7.0-18.0 [facility] Comment on above: Performed By: #### U A #### [facility] [address] [address] [address] Itzel Lerma Urea nitrogen/Creatinine [Mass ratio] 21.8 mg/mg Normal [facility] Comment on above: Performed By: #### U A #### [facility] [id number] Itzel Lerma XR KUB 1 VIEWon 11-19-2022 XR KUB 1 VIEW EXAM: XR KUB 1 VIEW HISTORY: Nasogastric tube in situ COMPARISON: None. TECHNIQUE: Single view FINDINGS: IMPRESSION: Single limited view of the abdomen. Enteric tube tip is approximately 6.2 cm below the diaphragm. Air-filled loops of large and small bowel Electronically authenticated by: SHAHZAD VILLALPANDO Date: 2022-11-19 20:24 Normal [facility] OSMOLALITYon 07-12-2022 Osmolality [Osmolality] 274 mosm/kg Critically low 280-301 [facility] Comment on above: Performed By: #### O SMO #### [facility] [address] [place] [address] Dr. Itzel Lerma CBC AUTO DIFFon 07-11-2022 BASO # 0.0 103/ul Normal 0.0-0.1 [facility] Comment on above: Performed By: #### O JESSE #### [facility] [address] [place] [address] Dr. Itzel Lerma Basophils/100 WBC (Bld) 0.3 % Normal 0.2-2.0 [facility] Comment on above: Performed By: #### O JESSE #### [facility] [address] [place] [address] Dr. Itzel Lerma EO # 0.1 103/ul Normal 0.0-0.7 [facility] Comment on above: Performed By: #### O JESSE #### [facility] [address] [place] [address] Dr. Itzel Lerma Eosinophils/100 WBC (Bld) 0.7 % Critically low 0.9-7.0 [facility] Comment on above: Performed By: #### O JESSE #### [facility] [address] [place] [address] Dr. Itzel Lerma Erythrocyte distribution width (RBC) [Ratio] 14.6 % Normal 11.0-15.0 [facility] Comment on above: Performed By: #### O JESSE #### [facility] [address] [place] [address] Dr. Itzel Lerma Hematocrit (Bld) [Volume fraction] 35.2 % Critically low 42.0-54.0 [facility] Comment on above: Performed By: #### O JESSE #### [facility] [address] [place] [address] Dr. Itzel Lerma Hemoglobin (Bld) [Mass/Vol] 11.4 g/dL Critically low 14.0-18.0 [facility] Comment on above: Performed By: #### O JESSE #### [facility] [address] [place] [address] Dr. Itzel Lerma IG # 0.04 10e3/ul Critically high 0.00-0.03 [facility] Comment on above: Performed By: #### O JESSE #### [facility] [address] [place] [address] Dr. Itzel Lerma IG % 0.4 % Normal 0.0-0.5 [facility] Comment on above: Performed By: #### O JESSE #### [facility] [address] [place] [address] Dr. Itzel Lerma LYMPH # 0.9 103/ul Critically low 1.2-3.8 [facility] Comment on above: Performed By: #### O JESSE #### [facility] [address] [place] [address] Dr. Itzel Lerma Lymphocytes/100 WBC (Bld) 10.4 % Critically low 20.5-60.0 [facility] Comment on above: Performed By: #### O JESSE #### [facility] [address] [place] [address] Dr. Itzel Lerma MANUAL DIFF REQ NO Normal [facility] Comment on above: Performed By: #### O JESSE #### [facility] [address] [place] [address] Dr. Itzel Lerma MCH (RBC) [Entitic mass] 29.1 pg Normal 25.9-34.0 [facility] Comment on above: Performed By: #### O JESSE #### [facility] [address] [place] [address] Dr. Itzel Lerma MCHC (RBC) [Mass/Vol] 32.4 g/dL Normal 29.9-35.2 [facility] Comment on above: Performed By: #### O JESSE #### [facility] [address] [address] [address] Itzel Lerma MCV (RBC) [Entitic vol] 89.8 fL Normal 80.0-94.0 [facility] Comment on above: Performed By: #### O JESSE #### [facility] [address] [place] [address] Dr. Itzel Lerma MONO # 1.0 103/ul Critically high 0.3-0.8 [facility] Comment on above: Performed By: #### O JESSE #### [facility] [address] [place] [address] Dr. Itzel Lerma Monocytes/100 WBC (Bld) 11.1 % Normal 1.7-12.0 [facility] Comment on above: Performed By: #### O JESSE #### [facility] [address] [place] [address] Dr. Itzel Lerma NEUT # 6.9 103/ul Critically high 1.4-6.[address] [facility] Comment on above: Performed By: #### O JESSE #### [facility] [address] [place] [address] Dr. Itzel Lerma Neutrophils/100 WBC (Bld) 77.1 % Critically high 43.0-75.0 [facility] Comment on above: Performed By: #### O JESSE #### [facility] [address] [place] [address] Dr. Itzel Lerma Platelet mean volume (Bld) [Entitic vol] 9.5 fL Normal 9.5-13.5 [facility] Comment on above: Performed By: #### O JESSE #### [facility] [address] [place] [address] Dr. Itzel Lerma PLT 166 103/ul Normal 150-450 [facility] Comment on above: Performed By: #### O JESSE #### [facility] [address] [place] [address] Dr. Itzel Lerma RBC 3.92 106/ul Critically low 4.70-6.10 [facility] Comment on above: Performed By: #### O JESSE #### [facility] [address] [address] [address] Itzel Lerma WBC 9.0 103/ul Normal 4.0-11.0 [facility] Comment on above: Performed By: #### O JESSE #### [facility] [address] [place] [address] Dr. Itzel Lerma H PYLORI ANTIBODY IGGon 06-29 H. PYLORI IGG ABS 1.90 Index Value Critically high 0.00-0. 79 [facility] Comment on above: Result Comment: Nega tive <0.80 Equivocal 0.80 - 0.89 Positive >0.89 Performed By: #### H PYLLC #### [facility] [address] [place] [address] Dr. Itzel Lerma OCC BLD IMMUNOASSAYon 2021 OCCULT BLOOD Positive Abnormal NEGATIVE [facility] Comment on above: Performed By: #### O JESSE #### [facility] [address] [place] [address] Dr. Itzel Lerma OSMOLALITY URINEon 2 Osmolality, Urine 252 mOsmol/kg Normal [facility] Comment on above: Result Comment: 24 h r : 300 - 900 Random: 50 - 1400 After 12hr fluid restriction: >850 Performed By: #### O JESSE #### [facility] [address] [place] [address] Dr. Itzel Lerma PROF 14(COMP METB)on 022 Albumin [Mass/Vol] 2.6 g/dL Critically low 3.4-5.0 [facility] Comment on above: Performed By: #### O SMO #### [facility] [address] [place] [address] Dr. Itzel Lerma Albumin/Globulin [Mass ratio] 0.6 {ratio} Normal [facility] Comment on above: Performed By: #### O SMO #### [facility] [address] [place] [address] Dr. Itzel Lerma ALP [Catalytic activity/Vol] 59 U/L Normal 46-116 [facility] Comment on above: Performed By: #### O SMO #### [facility] [address] [address] [address] Itzel Lerma ALT [Catalytic activity/Vol] 10 U/L Critically low 16-63 [facility] Comment on above: Performed By: #### O SMO #### [facility] [address] [address] [address] Itzel Lerma Anion gap [Moles/Vol] 14.3 mmol/L Normal [facility] Comment on above: Performed By: #### O SMO #### [facility] [address] [address] [address] Itzel Lerma AST [Catalytic activity/Vol] 12 U/L Critically low 15-37 [facility] Comment on above: Performed By: #### O SMO #### [facility] [address] [place] [address] Dr. Itzel Lerma Bilirubin [Mass/Vol] 0.3 mg/dL Normal 0.2-1.0 [facility] Comment on above: Performed By: #### O SMO #### [facility] [address] [address] [address] Itzel Lerma Calcium [Mass/Vol] 7.5 mg/dL Critically low 8.5-10.1 [facility] Comment on above: Performed By: #### O SMO #### [facility] [address] [place] [address] Dr. Itzel Lerma Chloride [Moles/Vol] 116 mmol/L Critically high 98-107 [facility] Comment on above: Performed By: #### O SMO #### [facility] [address] [address] [address] Itzel Lerma CO2 [Moles/Vol] 14.3 mmol/L Critically low 21.0-32.0 [facility] Comment on above: Performed By: #### O SMO #### [facility] [address] [address] [address] Itzel Lerma Creatinine [Mass/Vol] 1.38 mg/dL Critically high 0.70-1.30 [facility] Comment on above: Performed By: #### O SMO #### [facility] [address] [address] [address] Itzel Lerma EGFR-AF GAMBIAN 60 mL/min/1.73m2 Normal >=60 [facility] Comment on above: Performed By: #### O SMO #### [facility] [address] [address] [address] Itzel Lerma EGFR-NON AF GAMBIAN 49 mL/min/1.73m2 Critically low >=60 [facility] Comment on above: Performed By: #### O SMO #### [facility] [address] [address] [address] Itzel Lerma Globulin (S) [Mass/Vol] 4.1 g/dL Normal [facility] Comment on above: Performed By: #### O SMO #### [facility] [address] [place] [address] Dr. Itzel Lerma Glucose [Mass/Vol] 137 mg/dL Critically high 74-106 [facility] Comment on above: Performed By: #### O SMO #### [facility] [address] [place] [address] Dr. Itzel Lerma Potassium [Moles/Vol] 3.6 mmol/L Normal 3.5-5.1 [facility] Comment on above: Performed By: #### O SMO #### [facility] [address] [place] [address] Dr. Itzel Lerma Protein [Mass/Vol] 6.7 g/dL Normal 6.4-8.2 [facility] Comment on above: Performed By: #### O SMO #### [facility] [address] [place] [address] Dr. Itzel Lerma Sodium [Moles/Vol] 141 mmol/L Normal 136-145 [facility] Comment on above: Performed By: #### O SMO #### [facility] [address] [address] [address] Itzel Lerma Urea nitrogen [Mass/Vol] 25.0 mg/dL Critically high 7.0-18.0 [facility] Comment on above: Performed By: #### O SMO #### [facility] [address] [place] [address] Dr. Itzel Lerma Urea nitrogen/Creatinine [Mass ratio] 18.1 mg/mg Normal [facility] Comment on above: Performed By: #### O SMO #### [facility] [address] [place] [address] Dr. Itzel Lerma PROTIMEon 07-11-2022 INR Coag (PPP) [Relative time] 5.21 {INR} Critically high [facility] Comment on above: Performed By: #### O SMO #### [facility] [address] [place] [address] Dr. Itzel Lerma INR GUIDELINES SEE BELOW Normal [facility] Comment on above: Result Comment: MIKAL RED INR: 2.0 - 3.0 CONDITIONS NOT LISTED BELOW 2.5 - 3.5 FOR PROSTHETIC HEART VALVE REPLACEMENT 2.5 - 3.5 RECURRENT THROMBOSIS Performed By: #### O SMO #### [facility] [address] [place] [address] Dr. Itzel Lerma PT Coag (PPP) [Time] 50.5 s Critically high 9.0-11.6 [facility] Comment on above: Performed By: #### O SMO #### [facility] [address] [place] [address] Dr. Itzel Lerma CBC AUTO DIFFon 07-10-2022 BASO # 0.0 103/ul Normal 0.0-0.1 [facility] Comment on above: Performed By: #### U A #### [facility] [address] [place] [address] Dr. Itzel Lerma Basophils/100 WBC (Bld) 0.2 % Normal 0.2-2.0 [facility] Comment on above: Performed By: #### U A #### [facility] [address] [place] [address] Dr. Itzel Lerma EO # 0.1 103/ul Normal 0.0-0.7 [facility] Comment on above: Performed By: #### U A #### [facility] [address] [place] [address] Dr. Itzel Lerma Eosinophils/100 WBC (Bld) 0.4 % Critically low 0.9-7.0 [facility] Comment on above: Performed By: #### U A #### [facility] [address] [address] [address] Itzel Lerma Erythrocyte distribution width (RBC) [Ratio] 14.3 % Normal 11.0-15.0 [facility] Comment on above: Performed By: #### U A #### [facility] [address] [place] [address] Dr. Itzel Lerma Hematocrit (Bld) [Volume fraction] 38.2 % Critically low 42.0-54.0 [facility] Comment on above: Performed By: #### U A #### [facility] [address] [place] [address] Dr. Itzel Lerma Hemoglobin (Bld) [Mass/Vol] 12.5 g/dL Critically low 14.0-18.0 [facility] Comment on above: Performed By: #### U A #### [facility] [address] [place] [address] Dr. Itzel Lerma IG # 0.11 10e3/ul Critically high 0.00-0.03 [facility] Comment on above: Performed By: #### U A #### [facility] [address] [place] [address] Dr. Itzel Lerma IG % 0.7 % Critically high 0.0-0.[address] [facility] Comment on above: Performed By: #### U A #### [facility] [address] [place] [address] Dr. Itzel Lerma LYMPH # 1.1 103/ul Critically low 1.2-3.8 [facility] Comment on above: Performed By: #### U A #### [facility] [address] [place] [address] Dr. Itzel Lerma Lymphocytes/100 WBC (Bld) 6.9 % Critically low 20.5-60.0 [facility] Comment on above: Performed By: #### U A #### [facility] [address] [place] [address] Dr. Itzel Lerma MANUAL DIFF REQ NO Normal [facility] Comment on above: Performed By: #### U A #### [facility] [address] [address] [address] Itzel Lerma MCH (RBC) [Entitic mass] 29.6 pg Normal 25.9-34.0 [facility] Comment on above: Performed By: #### U A #### [facility] [address] [address] [address] Itzel Lerma MCHC (RBC) [Mass/Vol] 32.7 g/dL Normal 29.9-35.2 [facility] Comment on above: Performed By: #### U A #### [facility] [address] [address] [address] Itzel Lerma MCV (RBC) [Entitic vol] 90.3 fL Normal 80.0-94.0 [facility] Comment on above: Performed By: #### U A #### [facility] [address] [place] [address] Dr. Itzel Lerma MONO # 1.2 103/ul Critically high 0.3-0.[address] [facility] Comment on above: Performed By: #### U A #### [facility] [address] [address] [address] Itzel Lerma Monocytes/100 WBC (Bld) 8.1 % Normal 1.7-12.0 [facility] Comment on above: Performed By: #### U A #### [facility] [address] [address] [address] Itzel Lerma NEUT # 12.8 103/ul Critically high 1.4-6.[address] [facility] Comment on above: Performed By: #### U A #### [facility] [address] [address] [address] Itzel Lerma Neutrophils/100 WBC (Bld) 83.7 % Critically high 43.0-75.0 [facility] Comment on above: Performed By: #### U A #### [facility] [address] [place] [address] Dr. Itzel Lerma Platelet mean volume (Bld) [Entitic vol] 9.5 fL Normal 9.5-13.5 [facility] Comment on above: Performed By: #### U A #### [facility] [address] [place], [place] [address] Dr. Itzel Lerma PLT 197 103/ul Normal 150-450 [facility] Comment on above: Performed By: #### U A #### [facility] [address] [place], [place] [address] Dr. Itzel Lerma RBC 4.23 106/ul Critically low 4.70-6.[address] [facility] Comment on above: Performed By: #### U A #### [facility] [address] [place], [place] [address] Dr. Itzel Lerma WBC 15.3 103/ul Critically high 4.0-11.[address] [facility] Comment on above: Performed By: #### U A #### [facility] [address] [place], [place] [address] ABD/PELVIS WO CONon [...] DORIAN SOARES Date: 2022-07-09 22:32 Normal [facility] Covid-19 PCR (CVDTB)on 06-29 SARS-CoV-2 (COVID-19) RNA JUDY+probe Ql (Unsp spec) Not detected Normal NOT DETECTED [facility] Comment on above: Result Comment: When diagnostic [...] for this test is supported by the [place] [employer]'s declaration that [...] used). Performed By: #### O JESSE #### [facility] [address] [place] [address] Dr. Itzel Lerma GI PANEL (PCR)on 07-10-2022 Adenovirus F 40/41 Not detected Normal NOT DETECTED [facility] Comment on above: Performed By: #### O JESSE #### [facility] [address] [place] [address] Dr. Itzel Lerma Astrovirus Not detected Normal NOT DETECTED [facility] Comment on above: Performed By: #### O JESSE #### [facility] [address] [place] [address] Dr. Itzel Lerma C. Diff toxin A/B Not detected Normal NOT DETECTED [facility] Comment on above: Performed By: #### O JESSE #### [facility] [address] [place] [address] Dr. Itzel Lerma Campylobacter Not detected Normal NOT DETECTED [facility] Comment on above: Performed By: #### O JESSE #### [facility] [address] [place] [address] Dr. Itzel Lerma Cryptosporidium Not detected Normal NOT DETECTED [facility] Comment on above: Performed By: #### O JESSE #### [facility] [address] [place] [address] Dr. Itzel Lerma Cyclos. Cayetanensis Not detected Normal NOT DETECTED [facility] Comment on above: Performed By: #### O JESSE #### [facility] [address] [place] [address] Dr. Itzel Lerma E. Coli O157 Not Applicable Normal Not Applicable [facility] Comment on above: Performed By: #### O JESSE #### [facility] [address] [place] [address] Dr. Itzel Lerma E. histolytica Not detected Normal NOT DETECTED [facility] Comment on above: Performed By: #### O JESSE #### [facility] [address] [place] [address] Dr. Itzel Lerma EAEC Not detected Normal NOT DETECTED [facility] Comment on above: Performed By: #### O EJSSE #### [facility] [address] [place] [address] Dr. Itzel Lerma EIEC Not detected Normal NOT DETECTED [facility] Comment on above: Performed By: #### O JESSE #### [facility] [address] [place] [address] Dr. Itzel Lerma EPEC Not detected Normal NOT DETECTED [facility] Comment on above: Performed By: #### O JESSE #### [facility] [address] [place] [address] Dr. Itzel Lerma ETEC Not detected Normal NOT DETECTED [facility] Comment on above: Performed By: #### O JESSE #### [facility] [address] [place] [address] Dr. Itzel Taylichester Not detected Normal NOT DETECTED [facility] Comment on above: Performed By: #### O JESSE #### [facility] [address] [place] [address] Dr. Itzel MCKEON CONTROLS PASSED Normal [facility] Comment on above: Performed By: #### O JESSE #### [facility] [address] [place] [address] Dr. Itzel GALVAN TAVO HEADER GI PANEL BACTERIA Normal [facility] Comment on above: Performed By: #### O JESSE #### [facility] [address] [place] [address] Dr. Itzel GALLOWAY ECOLI GI PANEL DIARRHEAGEN IC E.COLI / SHIGELLA Normal [facility] Comment on above: Performed By: #### O JESSE #### [facility] [address] [place] [address] Dr. Itzel GALLOWAY INFO SEE BELOW Normal [facility] Comment on above: Result Comment: EAEC - Enteroaggregative E. Coli EPEC- Enteropathogenic E. Coli ETEC- Enterotoxigenic E. Coli lt/st STEC- Shigella-like toxin-producing E. Coli stx1/stx2 EIEC- Shigella/Enteroinvasive E. Coli Performed By: #### O JESSE #### [facility] [address] [place] [address] Dr. Itzel GALLOWAY PARASITES GI PANEL PARASITES Normal [facility] Comment on above: Performed By: #### O JESSE #### [facility] [address] [address] [address] Itzel GALLOWAY VIRUS GI PANEL VIRUSES Normal [facility] Comment on above: Performed By: #### O JESSE #### [facility] [address] [address] [address] Itzel Lerma Norovirus GI/GII Not detected Normal NOT DETECTED [facility] Comment on above: Performed By: #### O JESSE #### [facility] [address] [address] [address] Itzel Lerma P. Shigelloides Not detected Normal NOT DETECTED [facility] Comment on above: Performed By: #### O JESSE #### [facility] [address] [address] [address] Itzel Lerma Rotavirus A Not detected Normal NOT DETECTED [facility] Comment on above: Performed By: #### O JESSE #### [facility] [address] [address] [address] Itzel Lerma Salmonella Not detected Normal NOT DETECTED [facility] Comment on above: Performed By: #### O JESSE #### [facility] [address] [address] [address] Itzel Lerma Sapovirus Not detected Normal NOT DETECTED [facility] Comment on above: Performed By: #### O JESSE #### [facility] [address] [address] [address] Itzel Lerma STEC Not detected Normal NOT DETECTED [facility] Comment on above: Performed By: #### O JESSE #### [facility] [address] [address] [address] Itzel eLrma Vibrio Not detected Normal NOT DETECTED [facility] Comment on above: Performed By: #### O JESSE #### [facility] [address] [address] [address] Itzel Lerma Vibrio Cholera Not detected Normal NOT DETECTED [facility] Comment on above: Performed By: #### O JESSE #### [facility] [address] [place] [address] Dr. Itzel Lerma Y. Enterocolitica Not detected Normal NOT DETECTED [facility] Comment on above: Performed By: #### O JESSE #### [facility] [address] [place] [address] Dr. Itzel Lerma PROF CHEM 8 (BAS METB)on Anion gap [Moles/Vol] 12.6 mmol/L Normal [facility] Comment on above: Performed By: #### O SMO #### [facility] [address] [place] [address] Dr. Itzel Lerma Calcium [Mass/Vol] 7.7 mg/dL Critically low 8.5-10.1 [facility] Comment on above: Performed By: #### O SMO #### [facility] [address] [place] [address] Dr. Itzel Lerma Chloride [Moles/Vol] 103 mmol/L Normal 98-107 [facility] Comment on above: Performed By: #### O SMO #### [facility] [address] [place] [address] Dr. Itzel Lerma CO2 [Moles/Vol] 16.4 mmol/L Critically low 21.0-32.0 [facility] Comment on above: Performed By: #### O SMO #### [facility] [address] [place] [address] Dr. Itzel Lerma Creatinine [Mass/Vol] 2.03 mg/dL Critically high 0.70-1.30 [facility] Comment on above: Performed By: #### O SMO #### [facility] [address] [place] [address] Dr. Itzel Lerma EGFR-AF GAMBIAN 38 mL/min/1.73m2 Critically low >=60 [facility] Comment on above: Performed By: #### O SMO #### [facility] [address] [place] [address] Dr. Itzel Lerma EGFR-NON AF GAMBIAN 32 mL/min/1.73m2 Critically low >=60 [facility] Comment on above: Performed By: #### O SMO #### [facility] [address] [address] [address] Itzel Lerma Glucose [Mass/Vol] 148 mg/dL Critically high 74-106 [facility] Comment on above: Performed By: #### O SMO #### [facility] [address] [address] [address] Itzel Lerma Potassium [Moles/Vol] 4.0 mmol/L Normal 3.5-5.1 [facility] Comment on above: Performed By: #### O SMO #### [facility] [address] [address] [address] Itzel Lerma Sodium [Moles/Vol] 128 mmol/L Critically low 136-145 [facility] Comment on above: Performed By: #### O SMO #### [facility] [address] [place] [address] Dr. Itzel Lerma Urea nitrogen [Mass/Vol] 50.0 mg/dL Critically high 7.0-18.0 [facility] Comment on above: Performed By: #### O SMO #### [facility] [address] [place] [address] Dr. Itzel Lerma Urea nitrogen/Creatinine [Mass ratio] 24.6 mg/mg Normal [facility] Comment on above: Performed By: #### O SMO #### [facility] [address] [place] [address] Dr. Itzel Lerma Anion gap [Moles/Vol] 14.3 mmol/L Normal [facility] Comment on above: Performed By: #### U A #### [facility] [address] [place] [address] Dr. Itzel Lerma Calcium [Mass/Vol] 7.8 mg/dL Critically low 8.5-10.1 [facility] Comment on above: Performed By: #### U A #### [facility] [address] [place] [address] Dr. Itzel Lerma Chloride [Moles/Vol] 101 mmol/L Normal 98-107 [facility] Comment on above: Performed By: #### U A #### [facility] [address] [place] [address] Dr. Itzel Lerma CO2 [Moles/Vol] 14.7 mmol/L Critically low 21.0-32.0 [facility] Comment on above: Performed By: #### U A #### [facility] [address] [address] [address] Itzel Lerma Creatinine [Mass/Vol] 2.01 mg/dL Critically high 0.70-1.30 [facility] Comment on above: Performed By: #### U A #### [facility] [address] [address] [address] Itzel Lerma EGFR-AF GAMBIAN 39 mL/min/1.73m2 Critically low >=60 [facility] Comment on above: Performed By: #### U A #### [facility] [address] [address] [address] Itzel Lerma EGFR-NON AF GAMBIAN 32 mL/min/1.73m2 Critically low >=60 [facility] Comment on above: Performed By: #### U A #### [facility] [address] [address] [address] Itzel Lerma Glucose [Mass/Vol] 152 mg/dL Critically high 74-106 [facility] Comment on above: Performed By: #### U A #### [facility] [address] [address] [address] Itzel Lerma Potassium [Moles/Vol] 4.0 mmol/L Normal 3.5-5.1 [facility] Comment on above: Performed By: #### U A #### [facility] [address] [address] [address] Itzel Lerma Sodium [Moles/Vol] 126 mmol/L Critically low 136-145 [facility] Comment on above: Performed By: #### U A #### [facility] [address] [address] [address] Itzel Lerma Urea nitrogen [Mass/Vol] 51.0 mg/dL Critically high 7.0-18.0 [facility] Comment on above: Performed By: #### U A #### [facility] [address] [address] [address] Itzel Lerma Urea nitrogen/Creatinine [Mass ratio] 25.4 mg/mg Normal [facility] Comment on above: Performed By: #### U A #### [facility] [address] [address] [address] Itzel Lerma PROTIMEon 07-10-2022 INR Coag (PPP) [Relative time] 4.72 {INR} Critically high [facility] Comment on above: Performed By: #### P T #### [facility] [address] [place] [address] Dr. Itzel Lerma INR GUIDELINES SEE BELOW Normal [facility] Comment on above: Result Comment: MIKAL RED INR: 2.0 - 3.0 CONDITIONS NOT LISTED BELOW 2.5 - 3.5 FOR PROSTHETIC HEART VALVE REPLACEMENT 2.5 - 3.5 RECURRENT THROMBOSIS Performed By: #### P T #### [facility] [address] [place] [address] Dr. Itzel Lerma PT Coag (PPP) [Time] 46.1 s Critically high 9.0-11.6 [facility] Comment on above: Performed By: #### P T #### [facility] [address] [place] [address] Dr. Itzel Lerma SODIUM RANDOM URINEon 2021 UR SODIUM <50 Normal 30-90 [facility] Comment on above: Performed By: #### O JESSE #### [facility] [address] [place] [address] Dr. Itzel Lerma UA RANDOMon 07-10-2022 Bilirubin Ql (U) Negative Normal NEGATIVE [facility] Comment on above: Performed By: #### U A #### [facility] [address] [place] [address] Dr. Itzel Lerma Clarity (U) CLEAR Normal CLEAR [facility] Comment on above: Performed By: #### U A #### [facility] [address] [place] [address] Dr. Itzel Lerma Color (U) LT. YELLOW Normal YELLOW [facility] Comment on above: Performed By: #### U A #### [facility] [address] [address] [address] Itzel Lerma Glucose Ql (U) Negative Normal NEGATIVE [facility] Comment on above: Performed By: #### U A #### [facility] [address] [address] [address] Itzel Lerma Hemoglobin Ql (U) Negative Normal NEGATIVE [facility] Comment on above: Performed By: #### U A #### [facility] [address] [place] [address] Dr. Itzel Lerma Ketones Ql (U) Negative Normal NEGATIVE [facility] Comment on above: Performed By: #### U A #### [facility] [address] [place] [address] Dr. Itzel Lerma LEUKOCYTES Negative Normal NEGATIVE [facility] Comment on above: Performed By: #### U A #### [facility] [address] [place] [address] Dr. Itzel Lerma Nitrite Ql (U) Negative Normal NEGATIVE [facility] Comment on above: Performed By: #### U A #### [facility] [address] [place] [address] Dr. Itzel Lerma pH (U) 6.0 [pH] Normal 5-9 [facility] Comment on above: Performed By: #### U A #### [facility] [address] [place] [address] Dr. Itzel Lerma SPEC GRAVITY 1.010 Normal 1.005-<=1.025 [facility] Comment on above: Performed By: #### U A #### [facility] [address] [place] [address] Dr. Itzel Lerma UA PROTEIN Negative Normal NEGATIVE/ TRACE [facility] Comment on above: Performed By: #### U A #### [facility] [address] [place] [address] Dr. Itzel Lerma Urobilinogen Qn (U) 0.2 {Reta'U}/dL Normal 0.2 - 1. 0 [facility] Comment on above: Performed By: #### U A #### [facility] [address] [place] [address] Dr. Itzel Lerma XR ABD FLAT UP_PA [...] DORIAN YODER Date: 2022-07-10 10:16 Normal [facility] CBC AUTO DIFFon 07-09-2022 BASO # 0.1 103/ul Normal 0.0-0.1 [facility] Comment on above: Performed By: #### O JESSE #### [facility] [address] [place] [address] Dr. Itzel Lerma Basophils/100 WBC (Bld) 0.2 % Normal 0.2-2.0 [facility] Comment on above: Performed By: #### O JESSE #### [facility] [address] [place] [address] Dr. Itzel Lerma EO # 0.0 103/ul Normal 0.0-0.7 [facility] Comment on above: Performed By: #### O JESSE #### [facility] [address] [place] [address] Dr. Itzel Lerma Eosinophils/100 WBC (Bld) 0.2 % Critically low 0.9-7.0 [facility] Comment on above: Performed By: #### O JESSE #### [facility] [address] [place] [address] Dr. Itzel Lerma Erythrocyte distribution width (RBC) [Ratio] 14.0 % Normal 11.0-15.0 [facility] Comment on above: Performed By: #### O JESSE #### [facility] [address] [place] [address] Dr. Itzel Lerma Hematocrit (Bld) [Volume fraction] 39.3 % Critically low 42.0-54.0 [facility] Comment on above: Performed By: #### O JESSE #### [facility] [address] [place] [address] Dr. Itzel Lerma Hemoglobin (Bld) [Mass/Vol] 13.2 g/dL Critically low 14.0-18.0 [facility] Comment on above: Performed By: #### O JESSE #### [facility] [address] [place] [address] Dr. Itzel Lerma IG # 0.20 10e3/ul Critically high 0.00-0.03 [facility] Comment on above: Performed By: #### O JESSE #### [facility] [address] [place] [address] Dr. Itzel Lerma IG % 0.9 % Critically high 0.0-0.[address] [facility] Comment on above: Performed By: #### O JESSE #### [facility] [address] [place] [address] Dr. Itzel Lrema LYMPH # 1.3 103/ul Normal 1.2-3.8 [facility] Comment on above: Performed By: #### O JESSE #### [facility] [address] [place] [address] Dr. Itzel Lerma Lymphocytes/100 WBC (Bld) 5.8 % Critically low 20.5-60.0 [facility] Comment on above: Performed By: #### O JESSE #### [facility] [address] [place] [address] Dr. Itzel Lerma MANUAL DIFF REQ NO Normal [facility] Comment on above: Performed By: #### O JESSE #### [facility] [address] [place] [address] Dr. Itzel Lerma MCH (RBC) [Entitic mass] 29.7 pg Normal 25.9-34.0 [facility] Comment on above: Performed By: #### O JESSE #### [facility] [address] [place] [address] Dr. Itzel Lerma MCHC (RBC) [Mass/Vol] 33.6 g/dL Normal 29.9-35.2 [facility] Comment on above: Performed By: #### O JESSE #### [facility] [address] [place] [address] Dr. Itzel Lerma MCV (RBC) [Entitic vol] 88.3 fL Normal 80.0-94.0 [facility] Comment on above: Performed By: #### O JESSE #### [facility] [address] [place] [address] Dr. Itzel Lerma MONO # 1.3 103/ul Critically high 0.3-0.8 [facility] Comment on above: Performed By: #### O JESSE #### [facility] [address] [place] [address] Dr. Itzel Lerma Monocytes/100 WBC (Bld) 6.0 % Normal 1.7-12.0 [facility] Comment on above: Performed By: #### O JESSE #### [facility] [address] [place] [address] Dr. Itzel Lerma NEUT # 19.3 103/ul Critically high 1.4-6.[address] [facility] Comment on above: Performed By: #### O JESSE #### [facility] [address] [place] [address] Dr. Itzel Lerma Neutrophils/100 WBC (Bld) 86.9 % Critically high 43.0-75.0 [facility] Comment on above: Performed By: #### O JESSE #### [facility] [address] [place] [address] Dr. Itzel Lerma Platelet mean volume (Bld) [Entitic vol] 9.2 fL Critically low 9.5-13.5 [facility] Comment on above: Performed By: #### O JESSE #### [facility] [address] [place] [address] Dr. Itzel Lerma PLT 246 103/ul Normal 150-450 [facility] Comment on above: Performed By: #### O JESSE #### [facility] [address] [address] [address] Itzel Lerma RBC 4.45 106/ul Critically low 4.70-6.10 [facility] Comment on above: Performed By: #### O JESSE #### [facility] [address] [address] [address] Itzel Lerma WBC 22.2 103/ul Critically high 4.0-11.[address] [facility] Comment on above: Performed By: #### O JESSE #### [facility] [address] [place] [address] Dr. Itzel Lerma LACTATE/LACTIC ACIDon 2021 Lactate [Moles/Vol] 1.0 mmol/L Normal 0.4-1.9 [facility] Comment on above: Performed By: #### O SMO #### [facility] [address] [place] [address] Dr. Itzel Lerma PROF 14(COMP METB)on 022 Albumin [Mass/Vol] 3.0 g/dL Critically low 3.4-5.0 [facility] Comment on above: Performed By: #### C MP #### [facility] [address] [place] [address] Dr. Itzel Lerma Albumin/Globulin [Mass ratio] 0.6 {ratio} Normal [facility] Comment on above: Performed By: #### C MP #### [facility] [address] [place] [address] Dr. Itzel Lerma ALP [Catalytic activity/Vol] 90 U/L Normal 46-116 [facility] Comment on above: Performed By: #### C MP #### [facility] [address] [place] [address] Dr. Itzel Lerma ALT [Catalytic activity/Vol] 12 U/L Critically low 16-63 [facility] Comment on above: Performed By: #### C MP #### [facility] [address] [address] [address] Itzel Lerma Anion gap [Moles/Vol] 18.2 mmol/L Normal [facility] Comment on above: Performed By: #### C MP #### [facility] [address] [place] [address] Dr. Itzel Lerma AST [Catalytic activity/Vol] 17 U/L Normal 15-37 [facility] Comment on above: Performed By: #### C MP #### [facility] [address] [address] [address] Itzel Lerma Bilirubin [Mass/Vol] 0.8 mg/dL Normal 0.2-1.0 [facility] Comment on above: Performed By: #### C MP #### [facility] [address] [place] [address] Dr. Itzel Lerma Calcium [Mass/Vol] 7.9 mg/dL Critically low 8.5-10.1 [facility] Comment on above: Performed By: #### C MP #### [facility] [address] [place] [address] Dr. Itzel Lerma Chloride [Moles/Vol] 92 mmol/L Critically low 98-107 [facility] Comment on above: Performed By: #### C MP #### [facility] [address] [place] [address] Dr. Itzel Lemra CO2 [Moles/Vol] 14.0 mmol/L Critically low 21.0-32.0 [facility] Comment on above: Performed By: #### C MP #### [facility] [address] [place] [address] Dr. Itzel Lerma Creatinine [Mass/Vol] 2.74 mg/dL Critically high 0.70-1.30 [facility] Comment on above: Performed By: #### C MP #### [facility] [address] [place] [address] Dr. Itzel Lerma EGFR-AF GAMBIAN 27 mL/min/1.73m2 Critically low >=60 [facility] Comment on above: Performed By: #### C MP #### [facility] [address] [place] [address] Dr. Itzel Lerma EGFR-NON AF GAMBIAN 22 mL/min/1.73m2 Critically low >=60 [facility] Comment on above: Performed By: #### C MP #### [facility] [address] [address] [address] Itzel Lerma Globulin (S) [Mass/Vol] 4.9 g/dL Normal [facility] Comment on above: Performed By: #### C MP #### [facility] [address] [address] [address] Itzel Lerma Glucose [Mass/Vol] 169 mg/dL Critically high 74-106 [facility] Comment on above: Performed By: #### C MP #### [facility] [address] [place] [address] Dr. Itzel Lerma Potassium [Moles/Vol] 4.2 mmol/L Normal 3.5-5.1 [facility] Comment on above: Performed By: #### C MP #### [facility] [address] [address] [address] Itzel Lerma Protein [Mass/Vol] 7.9 g/dL Normal 6.4-8.2 [facility] Comment on above: Performed By: #### C MP #### [facility] [address] [place] [address] Dr. Itzel Lerma Sodium [Moles/Vol] 120 mmol/L Critically low 136-145 [facility] Comment on above: Performed By: #### C MP #### [facility] [address] [address] [address] Itzel Lerma Urea nitrogen [Mass/Vol] 69.0 mg/dL Critically high 7.0-18.0 [facility] Comment on above: Performed By: #### C MP #### [facility] [address] [place] [address] Dr. Itzel Lerma Urea nitrogen/Creatinine [Mass ratio] 25.2 mg/mg Normal [facility] Comment on above: Performed By: #### C MP #### [facility] [address] [place] [address] Dr. Itzel Lerma PROTIMEon 07-09-2022 INR Coag (PPP) [Relative time] 5.18 {INR} Critically high [facility] Comment on above: Performed By: #### U A #### [facility] [address] [place] [address] Dr. Itzel Lerma INR GUIDELINES SEE BELOW Normal [facility] Comment on above: Result Comment: MIKAL RED INR: 2.0 - 3.0 CONDITIONS NOT LISTED BELOW 2.5 - 3.5 FOR PROSTHETIC HEART VALVE REPLACEMENT 2.5 - 3.5 RECURRENT THROMBOSIS Performed By: #### U A #### [facility] [address] [place] [address] Dr. Itzel Lerma PT Coag (PPP) [Time] 50.2 s Critically high 9.0-11.6 [facility] Comment on above: Performed By: #### U A #### [facility] [address] [place] [address] Dr. Itzel Lerma PTTon 07-09-2022 aPTT Coag (Bld) [Time] 62.9 s Critically high 22.3-36.2 [facility] Comment on above: Performed By: #### U A #### [facility] [address] [place] [address] Dr. Itzel Lerma TSHon 07-09-2022 TSH 1.544 uIU/mL Normal 0.358-3.740 [facility] Comment on above: Performed By: #### O JESSE #### [facility] [address] [place] [address] Dr. Itzel Lerma Vital Signs Date Time Vital Sign Value Performing Clinician Facility 01-10-2023 13:11040 Body height 172.72 cm MD Ivan Lopez Work Phone: [facility] 01-10-2023 13:11040 Body temperature 97.8 [degF] MD Ivan Lopez Work Phone: [facility] 01-10-2023 13:11040 Body weight 71.4 kg MD Ivan Lopez Work Phone: [facility] 01-10-2023 13:11-0400 Diastolic blood pressure 84 mm[Hg] MD Ivan Lopez Work Phone: [facility] 01-10-2023 13:11-0400 Heart rate 73 /min MD Ivan Lopez Work Phone: [facility] 01-10-2023 13:11-0400 Respiratory rate 20 /min MD Ivan Lopez Work Phone: [facility] 01-10-2023 13:11-0400 SaO2% (BldA) [Mass fraction] 99 % MD Ivan Lopez Work Phone: [facility] 01-10-2023 13:11-0400 Systolic blood pressure 142 mm[Hg] MD Ivan Lopez Work Phone: [facility] 05-23-2022 15:00-0400 Body height 172.72 cm Yves Sanford Other [facility] Other 05-23-2022 15:00-0400 Body mass index (BMI) [Ratio] 25.09 kg/m2 Yves Sanford Other [facility] Other 05-23-2022 15:00-0400 Body weight 74.84 kg Yves Sanford Other [facility] Other 02-21-2022 15:00-0400 Body height 172.72 cm Yves Sanford Other [facility] Other 02-21-2022 15:00-0400 Body mass index (BMI) [Ratio] 26 kg/m2 Yves Christianormack Other [facility] Other 02-21-2022 15:00-0400 Body weight 77.57 kg Yves Cornejoack Other [facility] Other 02-21-2022 15:00-0400 Diastolic blood pressure 81 mm[Hg] Yves Cornejoack Other [facility] Other 02-21-2022 15:00-0400 Systolic blood pressure 118 mm[Hg] Yves Juvenal Other [facility] Other 11-22-2021 14:30-0500 Body height 172.72 cm Yves Christianormack Other [facility] Other 11-22-2021 14:30-0500 Body mass index (BMI) [Ratio] 26.76 kg/m2 Yves Christianormack Other [facility] Other 11-22-2021 14:30-0500 Body weight 79.83 kg Yves Juvenal Other [facility] Other 11-22-2021 14:30-0500 Diastolic blood pressure 70 mm[Hg] Yves Juvenal Other [facility] Other 11-22-2021 14:30-0500 Systolic blood pressure 121 mm[Hg] Yves Juvenal Other [facility] Other Encounters Encounter Date Encounter Type Care Provider Facility Start: 07-06-2024 ambulatory YANA Naranjo [facility] Start: 01-10-2023 End: 01-10-2023 Emergency department patient visit Ajit Rivero Facility:[facility] Start: 01-10-2023 End: 01-10-2023 Emergency department patient visit MD Ivan Lopez Work Phone: [facility] Work Phone: Start: 11-24-2022 End: 11-24-[address] DOCTOR CARDENAS Facility:[facility] Start: 11-19-2022 End: 11-23-2022 Evaluation and management of inpatient DR DOCTOR CARDENAS Facility:[facility] Start: 10-29-2022 End: 10-29-2022 ambulatory Yves Sanford Other [facility] Other Start: 10-29-2022 Telephone encounter Yves Zarate [facility] Start: 07-11-2022 ambulatory Facility:[facility] Start: 07-10-2022 End: 07-11-[address] DOCTOR CARDENAS Facility:[facility] Start: 05-23-2022 End: 05-23-2022 ambulatory Yves Sanford Other [facility] Other Start: 05-23-2022 Office outpatient visit 15 minutes Yves Sanford [facility] Start: 02-21-2022 End: 02-21-2022 ambulatory Yves Sanford Other [facility] Other Start: 02-21-2022 Office outpatient visit 15 minutes Yves Sanford [facility] Start: 11-22-2021 End: 11-22-2021 ambulatory Yves Sanford Other [facility] Other Start: 11-22-2021 Office outpatient ne w 45 minutes Yves Sanford [facility] Procedures Date Procedure Procedure Detail Performing Clinician Start: 01-10-2023 CT of head without contrast MD Ivan Lopez Work Phone: Start: 07-10-[address] DOCTOR CARDENAS Comment on above: Performed By: #### U A #### [facility] [address] [place] [address] Dr. Itzel Lerma Plan of Treatment Date Care Activity Detail Author Patient Education Head Injury in Adults ( [place]) [facility] Work Phone: Patient referral [facility] Work Phone: Payers Date Payer Category Payer Self-pay [id number] 2019 Unknown [id number] 1958 Medicare [id number] 1940 Unknown [id number] 1940 Unknown [id number] 1940 Unknown [id number] Medicare Medicare Outpatient [id number] Unknown [employer] [id number] Unknown [id number] Social History Date Type Detail Facility Sex Assigned At [facility] Other Start: 01-10-2023 Tobacco smoking stat [facility] Never smoked tobacco (finding) [facility] Start: 1940 Sex Assigned At Male [facility] Evaluation note 05-23-2022 Note Date & Type Note Facility 05-23-2022 Evaluation note Encounter Date Diagnosis Assessment Notes Apr, Diarrhea (ICD-10 - R19.7) patient states does not seem to bad patient does use the imodium as needed Apr, Nausea (ICD-10 - R11.0) will start zofran [facility] Other Evaluation note 02-21-2022 Note Date & Type Note Facility 02-21-2022 Evaluation note Encounter Date Diagnosis Assessment Notes January, Weight loss (ICD-10 - R63.4) January, Diarrhea (ICD-10 - R19.7) Start Imodium every morning Encouraged low fodmap diet. Education given to patient again. 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) January, Frequent bowel movements (ICD-10 - R19.4) [facility] Other Evaluation note 11-22-2021 Note Date & Type Note Facility 11-22-2021 Evaluation note Encounter Date Diagnosis Assessment Notes Oct, Weight loss (ICD-10 - R63.4) OBTAIN RECORDS FROM [facility] INPT STAY COPY OF LOW FODMAP DIET GIVEN TO PT RTO 3 MONTHS Oct, Diarrhea (ICD-10 - R19.7) [facility] Other Evaluation note Note Date & Type Note Facility Evaluation note No assessment information [facility] Work Phone: Evaluation note Note Date & Type Note Facility Evaluation note No Information [facility] Other History general Narrative - Reported Note Date & Type Note Facility History general Narrative - Reported Type Surgical History bowel resection [facility] Other Reason for visit Narrative Note Date & Type Note Facility Reason for visit Narrative REFERRED BY Chester LOPEZ FOR WEIGHT LOSS. PT DOES TAKE MEDICATIONS, HOWEVER HE DOES NOT RECALL NAMES OR DOSAGES OR HAVE A LIST TO REVIEW, (REFERRAL NOTE RECEIVED) [facility] Other Chief Complaint and Reason for Visit [...] KNOW NAMES OF MEDICATIONS HE IS ON.[facility] Care Teams (unrecognized sec tion and [...] and content) DATE CREATED AUTHOR 02/12/2023 [facility] DATE CREATED AUTHOR AUTHOR'S ORGANIZ ATION 03/18/2023 [facility] DATE CREATED AUTHOR AUTHOR'S ORGANIZ ATION 01/27/2024 [facility] DATE CREATED AUTHOR AUTHOR'S ORGANIZ [...] BE BASED ON THE PRIMARY CLINICAL RECORDS. [employer]Note [facility]. provides no warranty or guarantee of the accuracy or completeness of information in this document.
--- NOTE | 2025-06-21 12:12 | CA_ITS ---
Patient Name: JULIETTE MORROW MR#: [id number] : 1940 Exam Date: 06/21/2025 Ordering Doctor: JELLY AQUINO ECHOCARDIOGRAM REPORT PROCEDURE: CA ECHO DOPPLER COMPLETE INDICATIONS: CHF COMPARISON: None. DESCRIPTION: COMPLETE ECHOCARDIOGRAM Real-time transthoracic echocardiography with 2D, M-mode, spectral and color flow Doppler performed. QUALITY: Technical quality was good. LEFT VENTRICLE: Normal chamber size. Normal left ventricular wall thickness. Systolic function is severely reduced. LV EF: Visual estimation of left ventricular ejection fraction is severely reduced at 30%. DIASTOLIC: Not adequately assessed due to heart rhythm. ATRIAL SEPTUM: LEFT ATRIUM: Moderate dilatation. RIGHT ATRIUM: Moderate dilatation. RIGHT VENTRICLE: Mild dilatation. Mildly reduced right ventricular systolic function. TRICUSPID VALVE: Normal mobility and thickness. No stenosis with moderate regurgitation. Moderate pulmonary hypertension. RVSP 55 mmHg. MITRAL VALVE: Mildly thickened with normal mobility. No evidence of mitral valve stenosis. Mild mitral annular calcification. Moderate mitral regurgitation. AORTIC VALVE: Normal trileaflet appearance. Thickened aortic valve. Normal leaflet mobility. No evidence of aortic valve stenosis. Mild to moderate aortic regurgitation. AORTIC ROOT: Normal diameter and appearance, measuring 3.8 cm. The ascending aorta measures 3.4 cm. PULMONIC VALVE: Normal thickness and mobility. No stenosis. Trivial regurgitation. PERICARDIUM: No evidence of pericardial effusion. IVC: Mild dilatation. Measuring 2.2 cm with no collapse. PLEURA: Large pleural effusion. CONCLUSION: 1. The left ventricle is normal in size and exhibits severely reduced systolic function. Estimated LVEF is 30%. 2. Mildly dilated right ventricle with mildly reduced systolic function. 3. Moderate mitral and tricuspid regurgitation. 4. Mild to moderate aortic regurgitation. 5. Moderately elevated right-sided pressures. RVSP is 55 mmHg. 6. The patient appears to be in atrial fibrillation during the exam. Adult Echocardiography Procedure Report Left Ventricle LVEDD (3.7 - 5.6 cm): 5.06 cm LVESD (2.2 - 4.0 cm): 4.56 cm LVIVS thickness (0.6 - 1.2 cm): 0.92 cm LVPW thickness (0.5 - 1.0 cm): 0.90 cm e': 0.10 m/s E - e': 8.79 LVOT Max Gradient: 2.35 mm[Hg] LVOT Area (cm2): 0.77 m/s Peak Velocity (LVOT): 0.77 m/s Mean Velocity (LVOT): 0.55 m/s LVOT Diameter 2.02 cm Left Ventricular Ejection Fraction: 30% Left Atrium LA Volume Index (2D A2C): 50.59 ml/m2 Left Atrium Systolic Dimension: 4.23 cm Mitral Valve Mitral Valve E-Wave Peak Velocity: 0.91 m/s Right Ventricle RV Internal Diastolic Dimension: 4.26 cm Aorta AO Root Diam: 3.77 cm Ascending Ao Diam: 3.38 cm Aortic Valve AoV Area (Peak Sammy): 2.20 cm2, 2.20 cm2 AoV Area (VTI): 2.34 cm2, 2.34 cm2 Deceleration Braxton: 2.69 m/s2 Pressure Half-Time: 252.69 ms Peak Velocity(Antegrade Flow): 1.12 m/s Peak Gradient(Antegrade Flow): 5.00 mm[Hg] Mean Velocity(Antegrade Flow): 0.75 m/s Mean Gradient(Antegrade Flow): 2.48 mm[Hg] Velocity Time Integral: 19.86 cm Tricuspid Valve Peak Velocity (Regurgitant Flow): 3.22 m/s Pulmonic Valve Peak Velocity: 0.46 m/s Peak Gradient: 0.76 mm[Hg], 0.95 mm[Hg] Right Atrium Right Atrium Systolic Pressure: 88.04 ml, 88.04 ml Dictated by: Klaus Kelly M.D. on 06/21/2025 at 18:25 Approved by: Klaus Kelly M.D. on 06/21/2025 at 18:30
--- NOTE | 2025-06-21 12:12 | CT_ITS ---
The [address] [address] Patient Name: JULIETTE MORROW MRN: [id number] date: 1940 Sex: M Assigned Patient Location: [place] Current Patient Location: Accession/Order Number: [id number] Exam Date: 06/21/2025 14:21 Report Date: 06/21/2025 19:59 At the request of: JELLY AQUINO MD Procedure: CT chest wo con CT CHEST WITHOUT IV CONTRAST: CLINICAL HISTORY: CHF, effusion, r/p CA or pneumonia COMPARISON: Chest x-ray 06/21/2025 TECHNIQUE: Spiral images were obtained through the chest without IV contrast. This CT exam was performed using one or more following dose reduction techniques: Automated exposure control, adjustment of the mA and/or kV according to patient size, or use of iterative reconstruction technique. FINDINGS: Mediastinum:Triple vessel coronary artery disease. Heart is mildly prominent size. No pericardial effusion. Scattered mediastinal lymph nodes possibly reactive. No bulky adenopathy identified. Lungs:Moderate to large bilateral effusions. Dependent consolidative changes likely areas of atelectasis related to the effusions. Diffuse interlobular thickening suggestive interstitial pulmonary edema. Right perihilar interstitial and alveolar thickening noted possibly related to interstitial alveolar pulmonary edema although infectious etiology could also be considered. No pneumothorax. Abd:Prominent air-fluid levels involving the bowel loops anteriorly. Soft tissues/Bones: Multilevel degenerative changes and ankylosis of the thoracic spine. CT/CT chest wo con IMPRESSION: Moderate to large bilateral effusions and associated bibasilar areas of atelectasis. Perihilar interstitial and alveolar opacities may be related to interstitial and alveolar pulmonary edema although infection could also be considered in appropriate clinical setting. Consider follow-up. Impression dictated by: Karri Way M.D. 06/21/2025 7:59 PM Dictation Location: [place] [address] Electronically authenticated by: [id number] Y Date: 06/21/2025 19:59
--- NOTE | 2025-06-21 13:51 | P.HP_ITS ---
HPI H&P: HPI History of Present Illness Chief complaint: SOB, CHF EXACERBATION Narrative: Mr. Christine is an 85-year-old gentleman with a known diagnosis of hypertension, BPH, hypothyroidism, atrial flutter. Patient woke up this morning having increased shortness of breath. No fever or chills. No chest pain or palpitation, Increased swelling in legs. Increased shortness of breath when he lays down. Opioid HPI Opioid Management Most Recent Pain and Opioid Data: Last Pain Scale 0 06/29/24, 23:00 Last Pain Assessment Today, 12:29 Last ORT Total Score 0 Today, 11:47 Last ORT Risk Category Low Risk Today, 11:47 Review of Systems ROS Status of ROS 10 or more systems reviewed and unremark able except as noted in history and below [facility] Medical History (Updated 06/21/25 @ 13:56 by Kamala Bardales MD) History of cardioversion ?Z92.89 - Personal history of other medical treatment (ICD-10) Nondiabetic gastroparesis ?K31.84 - Gastroparesis (ICD-10) (HFpEF) heart failure with preserved ejection fraction ?I50.30 - Unspecified diastolic (congestive) heart failure (ICD-10) HLD (hyperlipidemia) ?E78.5 - Hyperlipidemia, unspecified (ICD-10) Spinal stenosis at L4-L5 level ?M48.061 - Spinal stenosis, lumbar region without neurogenic claudication (ICD-10) Generalized weakness ?R53.1 - Weakness (ICD-10) Gastroparesis ?K31.84 - Gastroparesis (ICD-10) Ileus following gastrointestinal surgery ?K91.89 - Other postprocedural complications and disorders of digestive system (ICD-10) ?K56.7 - Ileus, unspecified (ICD-10) 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 - Peritoneal adhesions (postprocedural) (postinfection) (ICD-10) Bowel obstruction ?K56.609 - Unspecified intestinal obstruction, unspecified as to partial versus complete obstruction (ICD-10) Hypertension ?I10 - Essential (primary) hypertension (ICD-10) Surgical History H/O exploratory laparotomy ?Z98.890 - Other specified postprocedural states (ICD-10) Family History Mother Family history of cancer Social History Within the past year, how often did you have a drink containing alcohol: never Within the past year, how often did you have six or more drinks on one occasion: never Score interpretation: A score less than 4 is consistent with normal alcohol consumption. 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 Highest level of school completed/degree received: high school graduate Do you want help with school or training: No Are you now , , , , never or living with a partner: In a typical week, how many times do you talk on the telephone with family, friends, or neighbors: 3 or more times per week How often do you get together with friends or relatives: 3 or more times per week How often do you attend scientology or christianity services: never Do you belong to any clubs or organizations such as scientology groups unions, [employer] or athletic groups, or school groups: no Total score: 1 Score interpretation: A score of less than or equal to 1 indicates the most socially isolated. Little interest or pleasure in doing things: not at all Feeling down, depressed, or hopeless: not at all Feel stressed/tense/nervous/anxious/difficulty sleeping: not at all Due to disability, difficulty making decisions: No Do you think of yourself as: straight/heterosexual Gender Identity: male Meds Home Medications and Allergies Home Medications ?Medication ?Instructions ?Recorded ?Confirmed ?Type atorvastatin 10 mg tablet 10 mg PO QPM 03/14/23 History empagliflozin 25 mg tablet 12.5 mg PO DAILY 03/14/23 0 06/21/25 History finasteride 5 mg tablet 5 mg PO DAILY 03/14/2306/21 History pantoprazole 40 mg tablet,delayed 40 mg PO DAILY 03/1406/21/25 History release tamsulosin 0.4 mg capsule 0.4 mg PO Q24H 03/14/2305/31 History warfarin 2.5 mg tablet 2.5 mg PO .COMPLEX 03/14/23 06/21/25 History brimonidine 0.2 %-timolol 0.5 % 1 drp ophthalmic (eye) QAM 05/30/24 06/21/25 History eye drops latanoprost 0.005 % eye drops 1 drp ophthalmic (eye) Q PM 05/30/24 06/21/25 History levothyroxine 50 mcg tablet 50 mcg PO DAILY 05/30/24 0 06/21/25 History (Euthyrox) acetaminophen 300 mg-codeine 30 mg 1 tab PO Q6H PRN pa in 5 days #20 09/13/24 06/21/25 Rx tablet tabs furosemide 40 mg tablet 40 mg PO DAILY 12/31/2405/31 History metoprolol succinate 100 mg 150 mg PO DAILY 12/31/24 0 06/21/25 History tablet,extended release 24 hr lisinopril 2.5 mg tablet 2.5 mg PO DAILY 06/21/25 History metoclopramide HCl 5 mg tablet 5 mg PO Q8H 06/21/25 History Allergies Allergy/AdvReac Type Severity Reaction Status Date / Time ondansetron (From Zofran) AdvReac Nausea Verified 06/21/25 10:56 Exam Narrative Exam Narrative: Patient is sitting in the chair. Cachectic and frail in appearance. Pale skin and buccal mucosa. Bitemporal muscle bruising. Upper and lower extremities muscle wasting atrophy. Neck is supple. No JVD. Chest exam revealed basilar rhonchi. Heart is irregular Abdomen soft, nontender. Lower extremities trace pitting edema. Significant muscle wasting. Hard of hearing. Cognitive and functional impairment, mild to moderate degree. Please refer to physical Occupational Therapy team note for details on his functional status and treatment plan. Constitutional Vital Signs, click to edit/add: Last Vital Signs Temp 96.6 F L 06/21/25 11:47 Pulse 90 06/21/25 12:50 Resp 26 H 06/21/25 11:10 BP 144/88 H 06/21/25 11:47 Pulse Ox 91 L 06/21/25 11:47 O2 Del Method Room Air 06/21/25 11:47 Results Labs Labs: Short CBC 06/21/25 Range/Units 08:10 WBC 9.4 (4.0-11.0) 10^3/uL Hgb 13.1 L (14.0-18.0) g/dL Hct 40.0 L (42.0-54.0) % Plt Count 141 L (150-450) 10^3/uL BMP 06/21/25 08:10 Sodium 140 Potassium 3.5 Chloride 106 Carbon Dioxide 22.1 BUN 29.0 H Creatinine 1.02 Glucose 145 H Calcium 8.7 Liver Function 06/21/25 Range/Units 08:10 Total Bilirubin 1.1 H (0.2-1.0) mg/dL AST 41 H (15-37) U/L ALT 44 (16-63) U/L Alkaline Phosphatase 166 H (46-116) U/L Albumin 3.0 L (3.4-5.0) g/dL Assessment and Plan Assessment and Plan (1) Congestive heart failure (CHF): (2) Glaucoma: (3) A-fib: (4) Hypothyroidism: Qualifiers: Hypothyroidism type: unspecified Qualified Code(s): E03.9 - Hypothyroidism, unspecified (5) Pulmonary congestion: (6) Cachexia: (7) Moderate protein-calorie malnutrition: (8) Muscle wasting: (9) Hypoxic respiratory failure: Plan Acute diastolic heart failure Mild degree of acute COPD exacerbation Basilar infiltration, rule out infectious process, rule out malignancy Probable pulmonary hypertension Acute hypoxic respiratory failure secondary to above I have accepted to admit patient to the medical telemetry unit. Telemetry monitoring to monitor his dysrhythmia. Echocardiogram to assess cardiac function and rule out any significant valvular disease and also to take a look at the right-sided pressure. Started patient on Lasix, oxygen, albuterol, Atrovent, Solu-Medrol and antibiotic Requested CAT scan of the chest to rule out underlying malignancy and to take a better look at the lung parenchyma. Check SARS, influenza A and B. Patient may need to have PFTs Patient may need home O2 evaluation for the possible need of home oxygen Atrial flutter. Chronic. Patient is on Coumadin. Patient is on beta-kimmy. Continue Coumadin dose adjustment to keep INR between 2 and 3 Continue beta-kimmy. Consider changing to calcium kimmy due to possibility of underlying COPD. Echocardiogram as listed above. Cachexia, frailty, muscle wasting, failure to thrive, moderate protein calorie malnutrition. I started patient on protein oral supplementation. Requested CAT scan of the chest rule out lung malignancy. Further needed cachexia and weight loss workup including but not limited to cancer screening, the possible need of EGD, colonoscopy, others to be handled by PCP in the outpatient setting. Cognitive and functional impairment I suspect that patient may have a degree of vascular dementia. Functional impairment secondary to aging, cachexia, muscle wasting. No focal deficit. PT OT eval and treatment. Assess his home situation, safety and support. Likely will need home health care. May need short-term skilled. Hypothyroidism Continue Synthroid, check TSH Glaucoma Continue eyedrop BPH Continue Flomax Chronic medical conditions not listed above, incidental findings seen on labs and imaging. These would need to be addressed. Could be addressed when time and condition are appropriate. Could be addressed in the outpatient setting by PCP collaboration with other needed outpatient providers.
[2025-06-21 13:56] LABS: SARS-CoV-2 Ag NEGATIVE (NEGATIVE)
[2025-06-21] MEDS: FUROSEMIDE 20 MG/2 ML VIAL IVP ×2 (15:03→21:09)
[2025-06-21] MEDS: POTASSIUM CHLORIDE 10 MEQ ER TABLET 40 MEQ PO (15:03)
[2025-06-21] MEDS: DOXYCYCLINE HYCLATE 100 MG in 0.9 % SODIUM CHLORIDE 100 ML IV (15:03)
[2025-06-21] MEDS: METHYLPREDNISOLONE SOD SUCC PF 40 MG/ML VIAL IVP (15:03)
[2025-06-21] MEDS: 0.9 % SODIUM CHLORIDE 250 ML 10 ML IV (15:23)
[2025-06-21] MEDS: WARFARIN SODIUM 2.5 MG TABLET PO (16:46)
--- NOTE | 2025-06-21 20:18 | W.ACP ---
Advance Care Planning Advance Care Planning Discussion Advance care planning discussion summary: Advance care planning a d goals of care discussion. Pt gave me permission to proceed with conversation. Conversation lasted for 20 mins. We discussed his condition, status and tx plan. I explained in simple terms the process of rsuscitation including but not limited to chest compression, shocks, intubation and life support. Iexplained in basic terms the diffrence between full and CCA. Pt stated in laymens term that he does not want any resuscisative efforts. When his time comes just let him go. His wishes are consistent with CCA status.
[2025-06-21] MEDS: IPRATROPIUM/ALBUTEROL SULFATE 3 ML AMPUL.NEB IH (20:32)
[2025-06-21] MEDS: LATANOPROST 0.005% 2.5 ML BOTTLE 1 DROP OP (21:09)
[2025-06-21] MEDS: ATORVASTATIN CALCIUM 10 MG TABLET PO (21:09)
[2025-06-21] MEDS: POTASSIUM CHLORIDE 10 MEQ ER TABLET PO (21:09)
[2025-06-21] MEDS: TAMSULOSIN HCL 0.4 MG CAPSULE PO (21:09)
[2025-06-21] MEDS: ENSURE HP 237 ML LIQUID PO (21:09)
[2025-06-22] VITALS (19 sets, daily range): BP systolic 116–145; BP diastolic 68–96; PULSE 85–114; TEMP 36.1–36.6; O2SAT 90–99
[2025-06-22] MEDS: DOXYCYCLINE HYCLATE 100 MG in 0.9 % SODIUM CHLORIDE 100 ML IV ×2 (03:04→14:36)
[2025-06-22] MEDS: METHYLPREDNISOLONE SOD SUCC PF 40 MG/ML VIAL IVP (03:04)
[2025-06-22 05:13] LABS: Hematocrit 42.6 % (42.0-54.0); Hemoglobin 13.8 g/dL (14.0-18.0); Immature Granulocytes Abs Auto 0.01 10^3/uL (0.00-0.03); Immature Granulocytes Pct Auto 0.2 % (0.0-0.5); Lymphocytes Absolute Auto 0.5 10^3/uL (1.2-3.8); Mean Corpuscular HGB Conc 32.4 g/dL (29.9-35.2); Mean Corpuscular Hemoglobin 31.4 pg (25.9-34.0); Mean Corpuscular Volume 96.8 fL (80.0-94.0); Platelet Count 171 10^3/uL (150-450); Red Blood Count 4.40 10^6/uL (4.70-6.10); White Blood Count 6.1 10^3/uL (4.0-11.0)
[2025-06-22 05:28] LABS: INR 3.16; Prothrombin Time 29.9 sec (9.0-11.6)
[2025-06-22 05:43] LABS: Alanine Aminotransferase 43 U/L (16-63); Albumin Globulin Ratio 0.6; Albumin Level 3.0 g/dL (3.4-5.0); Alkaline Phosphatase 143 U/L (46-116); Anion Gap 13.7; Aspartate Amino Transferase 24 U/L (15-37); Blood Urea Nitrogen 32.0 mg/dL (7.0-18.0); Calcium 8.3 mg/dL (8.5-10.1); Carbon Dioxide 25.2 mmol/L (21.0-32.0); Chloride 105 mmol/L (98-107); Estimated GFR (African America >60 (>=60 mL/min/1.73m^2); Estimated GFR (Non-African Ame 53 (>=60 mL/min/1.73m^2); Globulin 4.9 g/dL; Glucose 160 mg/dL (74-106); Magnesium 1.9 mg/dL (1.8-2.4); Potassium 3.9 mmol/L (3.5-5.1); Sodium 140 mmol/L (136-145); Thyroid Stimulating Hormone 0.777 uIU/mL (0.358-3.740); Total Protein 7.9 g/dL (6.4-8.2)
[2025-06-22] MEDS: LEVOTHYROXINE SODIUM 25 MCG TABLET 50 MCG PO (05:43)
[2025-06-22] MEDS: FUROSEMIDE 20 MG/2 ML VIAL IVP (05:43)
[2025-06-22 06:19] LABS: NT Pro B Type Natriuretic Pept 15600.0 pg/mL (<=1800.0)
--- NOTE | 2025-06-22 07:30 | ECG_ITS ---
The [facility] Test Date: 2025-06-22 Pat Name: JULIETTE MORROW Department: Room: Gender: Male [employer]: : 1940 Requested By: [id number] Order Number: [id number] Reading MD: SOIFYA HURT M.D. Measurements Intervals [place] Rate: 96 P: CO: QRS: -71 QRSD: 133 T: 49 QT: 420 QTc: 531 Interpretive Statements ATRIAL FIBRILLATION RIGHT BUNDLE BRANCH BLOCK [120+ ms QRS DURATION, UPRIGHT V1, 40+ ms S IN I/aVL/V4/V5/V6] INFERIOR MYOCARDIAL INFARCTION [40+ ms Q WAVE AND/OR ST/T ABNORMALITY IN II/aVF], PROBABLY OLD Abnormal ECG Compared to ECG 06/21/2025 07:47:30 Aberrant conduction of supraventricular beat(s) no longer present Myocardial infarct finding still present Electronically Signed On 06-22-2025 7:09:16 EDT by SOFIYA HURT M.D.
[2025-06-22] MEDS: METOPROLOL SUCCINATE 100 MG TAB.ER.24H 150 MG PO (08:26)
[2025-06-22] MEDS: LISINOPRIL 5 MG TABLET 2.5 MG PO (08:26)
[2025-06-22] MEDS: POTASSIUM CHLORIDE 10 MEQ ER TABLET PO (08:26)
[2025-06-22] MEDS: FINASTERIDE 5 MG TABLET PO (08:27)
[2025-06-22] MEDS: EMPAGLIFLOZIN 25 MG 12.5 EACH PO (08:27)
[2025-06-22] MEDS: IPRATROPIUM/ALBUTEROL SULFATE 3 ML AMPUL.NEB IH ×2 (09:56→20:47)
--- NOTE | 2025-06-22 12:31 | PM.PN ---
Progress Note: Subjective Subjective Interval history: Patient is feeling better. Uneventful night. Exam Narrative Exam Narrative: Patient is sitting in the chair. Cachectic and frail in appearance. Pale skin and buccal mucosa. Bitemporal muscle bruising. Upper and lower extremities muscle wasting atrophy. Neck is supple. No JVD. Chest exam revealed basilar rhonchi. Diminished breath sound bilaterally. Heart is irregular Abdomen soft, nontender. Lower extremities trace pitting edema. Significant muscle wasting. Hard of hearing. Cognitive and functional impairment, mild to moderate degree. Please refer to physical Occupational Therapy team note for details on his functional status and treatment plan. Constitutional Vital Signs, click to edit/add: Last Vital Signs Temp 97.0 F L 06/22/25 08:25 Pulse 97 H 06/22/25 12:00 Resp 22 H 06/22/25 08:25 BP 123/75 06/22/25 08:26 Pulse Ox 99 06/22/25 09:59 O2 Del Method Room Air 06/22/25 09:59 Progress Note: Objective Labs Labs: Short CBC 06/22/25 Range/Units 04:49 WBC 6.1 (4.0-11.0) 10^3/uL Hgb 13.8 L (14.0-18.0) g/dL Hct 42.6 (42.0-54.0) % Plt Count 171 (150-450) 10^3/uL BMP 06/22/25 04:49 Sodium 140 Potassium 3.9 Chloride 105 Carbon Dioxide 25.2 BUN 32.0 H Creatinine 1.29 Glucose 160 H Calcium 8.3 L Liver Function 06/22/25 Range/Units 04:49 Total Bilirubin 1.0 (0.2-1.0) mg/dL AST 24 (15-37) U/L ALT 43 (16-63) U/L Alkaline Phosphatase 143 H (46-116) U/L Albumin 3.0 L (3.4-5.0) g/dL Progress Note: A&P Assessment and Plan (1) Congestive heart failure (CHF): (2) Glaucoma: (3) A-fib: (4) Hypothyroidism: Qualifiers: Hypothyroidism type: unspecified Qualified Code(s): E03.9 - Hypothyroidism, unspecified (5) Pulmonary congestion: (6) Cachexia: (7) Moderate protein-calorie malnutrition: (8) Muscle wasting: (9) Hypoxic respiratory failure: Plan Acute systolic and diastolic heart failure. Echocardiogram showed cardiomyopathy, ejection fraction at 30%. Mild degree of acute COPD exacerbation Basilar infiltration, rule out infectious process, rule out malignancy. CT scan showed bilateral at least moderate pleural effusion with interstitial edema. Cannot exclude infectious process which is less likely. Patient is afebrile, normal white count Pulmonary hypertension. RVSP is 55 Moderate mitral and aortic regurgitation Acute hypoxic respiratory failure secondary to above SARS, influenza A and B are negative Echocardiogram and CT scan as reported above Continue diuresis. Input and output measurement. Albumin infusion to improve hydrostatic pressure. Patient is on appropriate GDMT including beta-kimmy, AMEAN inhibitor, SGLT 1. Consider addition of MRA. Consider switching AMENA to ARNI Is a pleural effusion is likely transudative secondary to cardiomyopathy with low albumin level and low hydrostatic pressure. Conceivably, patient could have exudative process such as malignancy. Consideration for diagnostic and therapeutic thoracentesis. Atrial flutter. Chronic. Patient is on Coumadin. Patient is on beta-kimmy. Continue Coumadin dose adjustment to keep INR between 2 and 3 Continue beta-kimmy. Avoid calcium kimmy due to cardiomyopathy seen on echocardiogram Echocardiogram as listed above. Cachexia, frailty, muscle wasting, failure to thrive, moderate protein calorie malnutrition. I started patient on protein oral supplementation. Requested CAT scan of the chest rule out lung malignancy. Further needed cachexia and weight loss workup including but not limited to cancer screening, the possible need of EGD, colonoscopy, others to be handled by PCP in the outpatient setting. Cognitive and functional impairment I suspect that patient may have a degree of vascular dementia. Functional impairment secondary to aging, cachexia, muscle wasting. No focal deficit. PT OT eval and treatment. Assess his home situation, safety and support. Likely will need home health care. May need short-term skilled. Hypothyroidism Continue Synthroid, check TSH. TSH is normal Glaucoma Continue eyedrop BPH Continue Flomax Chronic medical conditions not listed above, incidental findings seen on labs and imaging. These would need to be addressed. Could be addressed when time and condition are appropriate. Could be addressed in the outpatient setting by PCP collaboration with other needed outpatient providers.
--- NOTE | 2025-06-22 12:49 | P.EN_ITS ---
Event Note Event Note: I had a long conversation with the son at the bedside regarding his condition, status, blood work, imaging and treatment plan. I answered all of his questions. I notified him about patient having bilateral pleural effusion and the possible need for thoracentesis. I informed him about echo report and cardiomyopathy. He stated that patient has had low ejection fraction around 25% noted at the [facility]. I informed him that his dad wishes are not to have any resuscitative effort such as chest compressions, shocks, intubation life support. Son is in agreement to respect his dad's wishes. DNR CCA.
[2025-06-22] MEDS: ALBUMIN HUMAN 25 GM/100 ML PREMIX IV (13:26)
[2025-06-22] MEDS: FUROSEMIDE 20 MG/2 ML VIAL 40 MG IVP (13:26)
--- NOTE | 2025-06-22 14:22 | SWNOTE1 ---
LORY met with pt to discuss dc needs. Pt lives at home alone and has a walker to use as well. LORY asked about home health services? Pt stated he has a nurse that comes in 3x a week, but he is unsure of home health company at this time. Pt plans on returning home. He stated to speak with his son or Reina (son's ) in regards to the home health. LORY also asked about pt's stay being covered under [facility] or his [place] Medicare? Pt stated to speak with Reina or his son as he is unsure, but thinks the [facility]. SW to call. LORY called and spoke to pt's son, Navin Salinas, and his , Reina. They stated pt has an aide coming in from [facility] and the [facility] pays for it. The aide comes 3x a week for 3 hours. LORY did advise that therapy is recommended from home health. She stated therapy and the nurse ended not long ago [facility] the [facility]. She stated she does not feel it would be beneficial for the therapy team to come back in. She stated he has his routine and does his home exercises. LORY did let them both know to call LORY if they change there mind. Pt's son and daughter in law voiced understanding. LORY also asked what they want his hospital stay covered under, his [facility] or [place] Medicare? They stated the VA. LORY did let case management know. LORY let daughter in law know that at this time we had it under the [place] Medicare and we can do the [facility], but unsure if this will cause any issues. Son and daughter in law voiced understanding. At this time they voiced no anticipated discharge needs.
[2025-06-22] MEDS: 0.9 % SODIUM CHLORIDE 250 ML 100 ML IV (14:35)
[2025-06-22] MEDS: WARFARIN SODIUM 2.5 MG TABLET 1.25 MG PO (16:58)
[2025-06-22] MEDS: ATORVASTATIN CALCIUM 10 MG TABLET PO (21:12)
[2025-06-22] MEDS: ENSURE HP 237 ML LIQUID PO (21:13)
[2025-06-22] MEDS: TAMSULOSIN HCL 0.4 MG CAPSULE PO (21:13)
[2025-06-22] MEDS: LATANOPROST 0.005% 2.5 ML BOTTLE 1 DROP OP (21:13)
[2025-06-22] MEDS: POTASSIUM CHLORIDE 10 MEQ ER TABLET 20 MEQ PO (21:13)
[2025-06-23] VITALS (24 sets, daily range): BP systolic 118–136; BP diastolic 75–94; PULSE 86–105; TEMP 36.3–36.6; O2SAT 91–96
[2025-06-23] MEDS: DOXYCYCLINE HYCLATE 100 MG in 0.9 % SODIUM CHLORIDE 100 ML IV (03:18)
[2025-06-23] MEDS: LEVOTHYROXINE SODIUM 25 MCG TABLET 50 MCG PO (05:39)
[2025-06-23 06:04] LABS: INR 4.02; Prothrombin Time 37.1 sec (9.0-11.6)
[2025-06-23 06:08] LABS: Anion Gap 13.6; Blood Urea Nitrogen 45.0 mg/dL (7.0-18.0); Calcium 8.3 mg/dL (8.5-10.1); Carbon Dioxide 26.5 mmol/L (21.0-32.0); Chloride 105 mmol/L (98-107); Estimated GFR (African America >60 (>=60 mL/min/1.73m^2); Estimated GFR (Non-African Ame 57 (>=60 mL/min/1.73m^2); Glucose 124 mg/dL (74-106); Potassium 4.1 mmol/L (3.5-5.1); Sodium 141 mmol/L (136-145)
--- NOTE | 2025-06-23 08:30 | CM.NOTE ---
Rounds made with Dr. Bardales, discussed plan of care with pt. Updated pt that [facility]. Pt is in agreement to transfer. CM explained to pt he does not have transfer benefits, he would be responsible to cover EMS transport to get to [facility]. Pt verbalizes understanding. Pt's daughter will be here in about 30 min. CM will return and speak with daughter.
[2025-06-23] MEDS: SENNOSIDES/DOCUSATE SODIUM 1 TAB TABLET PO (09:15)
[2025-06-23] MEDS: EYE OP (09:17)
[2025-06-23] MEDS: TIMOLOL OP (09:17)
[2025-06-23] MEDS: DORZOLAMIDE OP (09:17)
[2025-06-23] MEDS: DOXYCYCLINE MONOHYDRATE 100 MG CAPSULE PO ×2 (09:18→21:23)
[2025-06-23] MEDS: EMPAGLIFLOZIN 25 MG 12.5 EACH PO (09:19)
[2025-06-23] MEDS: FINASTERIDE 5 MG TABLET PO (09:20)
[2025-06-23] MEDS: FUROSEMIDE 40 MG/4 ML VIAL IVP ×2 (09:20→21:23)
[2025-06-23] MEDS: LISINOPRIL 5 MG TABLET 2.5 MG PO (09:21)
[2025-06-23] MEDS: METOPROLOL SUCCINATE 100 MG TAB.ER.24H 150 MG PO (09:23)
[2025-06-23] MEDS: POTASSIUM CHLORIDE 10 MEQ ER TABLET 20 MEQ PO ×2 (09:24→21:22)
--- NOTE | 2025-06-23 09:30 | CM.NOTE ---
CM back in to speak with pt's daughter regarding transfer to [facility] d/t pt wishing to billed as [facility]. Daughter agrees to pt transfer to [facility] and understands pt would be responsible for EMS transportation. Pt does not have transportation benefits through VA. Both pt and daughter agree to transfer to [facility].
--- NOTE | 2025-06-23 09:38 | CM.NOTE ---
I received a phone call from the [facility] location and they do have beds available so if he would like to use his VA benefits he will need to be transferred to the [facility]. The patient does not have travel benefits so the patient would be responsible for the cost of the ambulance ride. I placed a call to the [place] [phone] ext [phone] to notify them the patient would like to transfer to the [facility] and was agreeable to pay for the travel costs.
[2025-06-23] MEDS: IPRATROPIUM/ALBUTEROL SULFATE 3 ML AMPUL.NEB IH ×2 (10:00→21:29)
--- NOTE | 2025-06-23 11:35 | CM.NOTE ---
I placed a call to the patient's son to notify him that the patient would not be transferred to the [facility] at this time due to not having any cardiology beds available. If a cardiology bed becomes available the [facility] will notify us and we will discuss if the patient would like transferred at that time.
--- NOTE | 2025-06-23 11:59 | PT.DAILY ---
Physical Therapy Daily Note PT Daily Note/Assess Start: 06/22/25 08:24 Freq: Status: Active Protocol: Document 06/23/25 11:47 [id number] (Rec: 06/23/25 11:59 [id number] No Response) Physical Therapy Daily Note/Assessment Time In/Time Out Time In 09:26 Time Out 09:50 Pain In Pain Level 0 Pain Out Pain Level 0 Subjective Subjective Patient received seated in chair at bedside and agreeable to participate with PT. [id number]-gh-swf present during treatment. Chair alarm disengaged for treatment. Therapeutic Exercise Time Therapeutic Exercise 3 Minutes (minutes) Therapeutic Exercise 0 Units Therapeutic Exercise Treatment Therapeutic Exercise Seated JESENIA LE strengthening ther ex to improve Treatment functional mobility. Patient performed ankle pumps, hip ABD, marching and hip ADD w/MRE x 10 reps. Sit to stand to 2WW x5 reps. Verbal cues for safe hand placement and to slow pace to manage balance. Therapeutic Activity Time Therapeutic Activity 21 Minutes (minutes) Therapeutic Activity 1 Units Therapeutic Activity Treatment Chair Transfer Contact Guard Assist Ability Therapeutic Activity Sit to stand to 2 WW is CGA+1 w/ VC's for safe hand Comments placement on arm rest of chair. Patient ambulated ~200 ft with 2 WW w/ gait belt and CGA to MIN A +1. Patient experienced 2 LOB to R while walking w/ MIN A + 1 to recover. Patient ambulates with NBOS, vc's to widen ALONSO w/o carryover in correction. Patient navigated 4 steps with JESENIA hand rails in reciprocal pattern with CGA +1. Patient utilized bathroom, uses 1 UE on hand rail to control descent to commode. Patient is independent in cleaning self after BM. Commode to stand and walking 3 steps to sink w/o AD w/ CGA +1 and no LOB. Patient returned to chair a bedside with 2WW w/ CGA +1. Stand to sit is MIN A +1 to help control descent to chair seat. Patient's legs elevated and chair alarm engaged. CBWR and nursing notified of patient placement and acknowledged. Total Physical Therapy Time Total Therapy 24 Minutes Total Physical 1 Therapy Units Summary Daily Note Summary Patient demonstrates increased ambulation distance w/ NBOS and 2 LOB requiring MIN A +1 to recover. Patient demonstrates functional mobility deficits and would benefit from placement upon D/C to address and assist in return to PLOF.
--- NOTE | 2025-06-23 12:26 | P.PN_ITS ---
Progress Note: Subjective Subjective Interval history: Patient is feeling better. Uneventful night. No bowel movement yet. Exam Narrative Exam Narrative: Patient is sitting in the chair. Cachectic and frail in appearance. Pale skin and buccal mucosa. Bitemporal muscle bruising. Upper and lower extremities muscle wasting atrophy. Neck is supple. No JVD. Chest exam revealed basilar rhonchi. Diminished breath sound bilaterally. Heart is irregular Abdomen soft, nontender. Lower extremities trace pitting edema. Significant muscle wasting. Hard of hearing. Cognitive and functional impairment, mild to moderate degree. Please refer to physical Occupational Therapy team note for details on his functional status and treatment plan. Constitutional Vital Signs, click to edit/add: Last Vital Signs Temp 97.4 F L 06/23/25 12:18 Pulse 93 H 06/23/25 12:18 Resp 16 06/23/25 12:18 BP 131/91 06/23/25 12:18 Pulse Ox 92 L 06/23/25 12:18 O2 Del Method Room Air 06/23/25 12:18 Progress Note: Objective Labs Labs: [facility] 06/23/25 04:59 Sodium 141 Potassium 4.1 Chloride 105 Carbon Dioxide 26.5 BUN 45.0 H Creatinine 1.22 Glucose 124 H Calcium 8.3 L Progress Note: A&P Assessment and Plan (1) Congestive heart failure (CHF): (2) Glaucoma: (3) A-fib: (4) Hypothyroidism: Qualifiers: Hypothyroidism type: unspecified Qualified Code(s): E03.9 - Hypothyroidism, unspecified (5) Pulmonary congestion: (6) Cachexia: (7) Moderate protein-calorie malnutrition: (8) Muscle wasting: (9) Hypoxic respiratory failure: Plan Acute systolic and diastolic heart failure. Echocardiogram showed cardiomyopathy, ejection fraction at 30%. Mild degree of acute COPD exacerbation Basilar infiltration, rule out infectious process, rule out malignancy. CT scan showed bilateral at least moderate pleural effusion with interstitial edema. Cannot exclude infectious process which is less likely. Patient is afebrile, normal white count Pulmonary hypertension. RVSP is 55 Moderate mitral and aortic regurgitation Multifactorial acute hypoxic respiratory failure secondary to above SARS, influenza A and B are negative Echocardiogram and CT scan as reported above Continue diuresis. Input and output measurement. Albumin infusion to improve hydrostatic pressure. Patient is on appropriate GDMT including beta-kimmy, AMENA inhibitor, SGLT 1. Consider addition of MRA. Consider switching AMENA to ARNI His a pleural effusion is likely transudative secondary to cardiomyopathy with low albumin level and low hydrostatic pressure. Conceivably, patient could have exudative process such as malignancy. Consideration for diagnostic and therapeutic thoracentesis. Attempt was made to transfer him to [facility] but do not have beds at this time. Atrial flutter. Chronic. Patient is on Coumadin. Patient is on beta-kimmy. Continue Coumadin dose adjustment to keep INR between 2 and 3. Coumadin dosing is being handled by pharmacy. Continue beta-kimmy. Avoid calcium kimmy due to cardiomyopathy seen on echocardiogram Echocardiogram as listed above. Cachexia, frailty, muscle wasting, failure to thrive, moderate protein calorie malnutrition. I started patient on protein oral supplementation. Requested CAT scan of the chest rule out lung malignancy. Further needed cachexia and weight loss workup including but not limited to cancer screening, the possible need of EGD, colonoscopy, others to be handled by PCP in the outpatient setting. Cognitive and functional impairment I suspect that patient may have a degree of vascular dementia. Functional impairment secondary to aging, cachexia, muscle wasting. No focal deficit. PT OT eval and treatment. Assess his home situation, safety and support. Likely will need home health care. May need short-term skilled. Hypothyroidism Continue Synthroid, check TSH. TSH is normal Glaucoma Continue eyedrop Constipation Stool softeners and laxatives BPH Continue Flomax Chronic medical conditions not listed above, incidental findings seen on labs and imaging. These would need to be addressed. Could be addressed when time and condition are appropriate. Could be addressed in the outpatient setting by PCP collaboration with other needed outpatient providers.
[2025-06-23] MEDS: TAMSULOSIN HCL 0.4 MG CAPSULE PO (21:23)
[2025-06-23] MEDS: ATORVASTATIN CALCIUM 10 MG TABLET PO (21:23)
[2025-06-23] MEDS: LATANOPROST 0.005% 2.5 ML BOTTLE 1 DROP OP (21:24)
[2025-06-24] VITALS (17 sets, daily range): BP systolic 112–134; BP diastolic 70–78; PULSE 77–105; TEMP 36.4–36.7; O2SAT 91–96
[2025-06-24 05:32] LABS: INR 2.92; Prothrombin Time 27.8 sec (9.0-11.6)
[2025-06-24] MEDS: LEVOTHYROXINE SODIUM 25 MCG TABLET 50 MCG PO (05:33)
[2025-06-24 05:50] LABS: Anion Gap 10.0; Blood Urea Nitrogen 38.0 mg/dL (7.0-18.0); Calcium 8.0 mg/dL (8.5-10.1); Carbon Dioxide 28.2 mmol/L (21.0-32.0); Chloride 102 mmol/L (98-107); Estimated GFR (African America >60 (>=60 mL/min/1.73m^2); Estimated GFR (Non-African Ame >60 (>=60 mL/min/1.73m^2); Glucose 126 mg/dL (74-106); Potassium 3.2 mmol/L (3.5-5.1); Sodium 137 mmol/L (136-145)
[2025-06-24 05:58] LABS: NT Pro B Type Natriuretic Pept 6108.0 pg/mL (<=1800.0)
--- NOTE | 2025-06-24 07:41 | XR_ITS ---
The [address] [address] Patient Name: JULIETTE MORROW MRN: [id number] date: 1940 Sex: M Assigned Patient Location: [place] Current Patient Location: [place] Accession/Order Number: [id number] Exam Date: 06/24/2025 07:49 Report Date: 06/24/2025 08:20 At the request of: JELLY AQUINO MD Procedure: XR chest 1V PORTABLE AP ERECT CHEST 0731 hours CLINICAL HISTORY: Follow-up CHF. Comparison to last COMPARISON: Chest x-ray and CT 06/21/2025 The heart is borderline enlarged. Vascular congestion and right perihilar parenchymal changes seen previously are resolving. No developing consolidation is noted. There is still blunting of the costophrenic angles compatible with small residual effusions. No pneumothorax is seen. The bony structures are osteopenic. Mild degenerative change is present at the spine. XR/XR chest 1V IMPRESSION: BORDERLINE CARDIOMEGALY. RESOLVING VASCULAR CONGESTION AND RIGHT PERIHILAR PARENCHYMAL CHANGE. SMALL RESIDUAL PLEURAL EFFUSIONS. Impression dictated by: Nilsa Godoy M.D. 06/24/2025 8:20 AM Dictation Location: [place] [address] Electronically authenticated by: [id number] Y Date: 06/24/2025 08:20
--- NOTE | 2025-06-24 08:00 | CM.NOTE ---
Rounds made with Dr. Bardales, plan of care discussed with pt. No discharge today, possible discharge tomorrow.
[2025-06-24] MEDS: DOXYCYCLINE MONOHYDRATE 100 MG CAPSULE PO ×2 (08:16→21:18)
[2025-06-24] MEDS: SENNOSIDES/DOCUSATE SODIUM 1 TAB TABLET 2 TAB PO (08:16)
[2025-06-24] MEDS: FINASTERIDE 5 MG TABLET PO (08:16)
[2025-06-24] MEDS: FUROSEMIDE 40 MG/4 ML VIAL IVP (08:17)
[2025-06-24] MEDS: METOPROLOL SUCCINATE 100 MG TAB.ER.24H 150 MG PO (08:17)
[2025-06-24] MEDS: LISINOPRIL 5 MG TABLET 2.5 MG PO (08:17)
[2025-06-24] MEDS: TIMOLOL OP (08:18)
[2025-06-24] MEDS: DORZOLAMIDE OP (08:18)
[2025-06-24] MEDS: EYE OP (08:18)
[2025-06-24] MEDS: EMPAGLIFLOZIN 25 MG 12.5 EACH PO (08:18)
[2025-06-24] MEDS: ALBUMIN HUMAN 25 GM/100 ML PREMIX IV (08:35)
[2025-06-24] MEDS: POTASSIUM CHLORIDE 10 MEQ ER TABLET 40 MEQ PO (08:35)
--- NOTE | 2025-06-24 08:42 | PM.PN ---
Progress Note: Subjective Subjective Interval history: Patient is feeling better. Uneventful night. Less shortness of breath. Less dyspnea on exertion. Patient has bowel movement. Exam Narrative Exam Narrative: Patient is sitting in the chair. Cachectic and frail in appearance. Pale skin and buccal mucosa. Bitemporal muscle bruising. Upper and lower extremities muscle wasting atrophy. Neck is supple. No JVD. Chest exam significant improvement of bilateral crackles and air entry compared to admission state. Heart is irregular Abdomen soft, nontender. Lower extremities trace pitting edema. Significant muscle wasting. Hard of hearing. Cognitive and functional impairment, mild to moderate degree. Please refer to physical Occupational Therapy team note for details on his functional status and treatment plan. Constitutional Vital Signs, click to edit/add: Last Vital Signs Temp 97.5 F L 06/24/25 07:21 Pulse 87 06/24/25 07:57 Resp 18 06/24/25 07:21 BP 118/75 06/24/25 07:21 Pulse Ox 96 06/24/25 07:21 O2 Del Method Room Air 06/24/25 07:21 Progress Note: Objective Labs Labs: [facility] 06/24/25 04:38 Sodium 137 Potassium 3.2 L Chloride 102 Carbon Dioxide 28.2 BUN 38.0 H Creatinine 1.13 Glucose 126 H Calcium 8.0 L Progress Note: A&P Assessment and Plan (1) Congestive heart failure (CHF): (2) Glaucoma: (3) A-fib: (4) Hypothyroidism: Qualifiers: Hypothyroidism type: unspecified Qualified Code(s): E03.9 - Hypothyroidism, unspecified (5) Pulmonary congestion: (6) Cachexia: (7) Moderate protein-calorie malnutrition: (8) Muscle wasting: (9) Hypoxic respiratory failure: Plan Acute systolic and diastolic heart failure. Echocardiogram showed cardiomyopathy, ejection fraction at 30%. His son stated that his EF has been around 25-30% for a while. He follows up at the [place]. Mild degree of acute COPD exacerbation Basilar infiltration, rule out infectious process, rule out malignancy. CT scan showed bilateral at least moderate pleural effusion with interstitial edema. Cannot exclude infectious process which is less likely. Patient is afebrile, normal white count Pulmonary hypertension. RVSP is 55 Moderate mitral and aortic regurgitation Multifactorial acute hypoxic respiratory failure secondary to above SARS, influenza A and B are negative Echocardiogram and CT scan as reported above Continue diuresis. Input and output measurement. Albumin infusion to improve hydrostatic pressure. Patient is on appropriate GDMT including beta-kimmy, AMENA inhibitor, SGLT 1. Consider addition of MRA. Consider switching AMENA to ARNI His a pleural effusion is likely transudative secondary to cardiomyopathy with low albumin level and low hydrostatic pressure. Conceivably, patient could have exudative process such as malignancy. Consideration for diagnostic and therapeutic thoracentesis. Attempt was made to transfer him to [facility] but do not have beds at this time. 06/24: Patient is doing better. Less subjective shortness of breath. Improvement of his chest exam. Chest x-ray showed resolution of vascular congestion. BNP is down from 15,000-6000. Lower extremities edema had resolved. I suspect that his output measurement is inaccurate. Continue current treatment. Possible discharge tomorrow Atrial flutter. Chronic. Patient is on Coumadin. Patient is on beta-kimmy. Continue Coumadin dose adjustment to keep INR between 2 and 3. Coumadin dosing is being handled by pharmacy. Continue beta-kimmy. Avoid calcium kimmy due to cardiomyopathy seen on echocardiogram Echocardiogram as listed above. Cachexia, frailty, muscle wasting, failure to thrive, moderate protein calorie malnutrition. I started patient on protein oral supplementation. Requested CAT scan of the chest rule out lung malignancy. Further needed cachexia and weight loss workup including but not limited to cancer screening, the possible need of EGD, colonoscopy, others to be handled by PCP in the outpatient setting. Cognitive and functional impairment I suspect that patient may have a degree of vascular dementia. Functional impairment secondary to aging, cachexia, muscle wasting. No focal deficit. PT OT eval and treatment. Assess his home situation, safety and support. Likely will need home health care. May need short-term skilled. Hypothyroidism Continue Synthroid, check TSH. TSH is normal Glaucoma Continue eyedrop Constipation Stool softeners and laxatives BPH Continue Flomax Chronic medical conditions not listed above, incidental findings seen on labs and imaging. These would need to be addressed. Could be addressed when time and condition are appropriate. Could be addressed in the outpatient setting by PCP collaboration with other needed outpatient providers.
[2025-06-24] MEDS: IPRATROPIUM/ALBUTEROL SULFATE 3 ML AMPUL.NEB IH ×2 (08:54→21:03)
--- NOTE | 2025-06-24 12:08 | PT.DAILY ---
Physical Therapy Daily Note PT Daily Note/Assess Start: 06/22/25 08:24 Freq: Status: Active Protocol: Document 06/24/25 11:58 [id number] (Rec: 06/24/25 12:08 [id number] No Response) Physical Therapy Daily Note/Assessment Time In/Time Out Time In 09:35 Time Out 09:48 Pain In Pain Level 0 Pain Out Pain Level 0 Subjective Subjective Patient received seated in chair at bedside with chair alarm engaged. Patient agreeable to participate for walking with PT. Therapeutic Activity Time Therapeutic Activity 13 Minutes (minutes) Therapeutic Activity 1 Units Therapeutic Activity Treatment Chair Transfer Contact Guard Assist Ability Therapeutic Activity Gait belt donned for safety. Sit to stand to 2WW CGA + Comments 1. Verbal cues for safe hand placement. Patient ambulated ~300 feet w/ 2WW w/ CGA +1. Verbal cues to increase ALONSO for safety as patient walks with NBOS. Patient with steady pace of walking with equal step length and decreased step height. No LOB during turns or walking this date. Patient request to use commode. Patient stood in front of commode to urinate without UE support or LOB. Patient turns and sits on commode with 1 UE to assist with controlling descent to commode seat. Patient had BM and is independent in cleansing himself. Patient walks ~3 steps to sink without AD and no LOB to wash hands. Able to stand at sink with good balance. Patient returns to 2WW and walks to chair at bedside. Patient uses JESENIA UE for support with fair control of descent to chair surface. Chair alarm re- engaged, JESENIA LE elevated, tray table placed beside chair per patient request with CB on tray table. Nursing notified of BM and patient placement. Nursing acknowledge information. Total Physical Therapy Time Total Therapy 13 Minutes Total Physical 1 Therapy Units Summary Daily Note Summary Patient with improved balance during ambulation this date. Patient verbalizes fatigue after completion of walking. Patient would benefit from skilled placement upon DC to address functional deficits.
[2025-06-24] MEDS: WARFARIN SODIUM 2.5 MG TABLET PO (16:14)
[2025-06-24] MEDS: FUROSEMIDE 20 MG/2 ML VIAL IVP (18:52)
[2025-06-24] MEDS: LATANOPROST 0.005% 2.5 ML BOTTLE 1 DROP OP (21:17)
[2025-06-24] MEDS: ENSURE HP 237 ML LIQUID PO (21:17)
[2025-06-24] MEDS: TAMSULOSIN HCL 0.4 MG CAPSULE PO (21:18)
[2025-06-24] MEDS: ATORVASTATIN CALCIUM 10 MG TABLET PO (21:18)
[2025-06-24] MEDS: POTASSIUM CHLORIDE 10 MEQ ER TABLET 30 MEQ PO (21:18)
[2025-06-25] VITALS (12 sets, daily range): BP systolic 99–122; BP diastolic 65–82; PULSE 74–99; TEMP 36.6; O2SAT 92–96
[2025-06-25] MEDS: LEVOTHYROXINE SODIUM 25 MCG TABLET 50 MCG PO (05:38)
[2025-06-25 07:08] LABS: Anion Gap 10.2; Blood Urea Nitrogen 45.0 mg/dL (7.0-18.0); Calcium 8.3 mg/dL (8.5-10.1); Carbon Dioxide 29.9 mmol/L (21.0-32.0); Chloride 105 mmol/L (98-107); Estimated GFR (African America >60 (>=60 mL/min/1.73m^2); Estimated GFR (Non-African Ame >60 (>=60 mL/min/1.73m^2); Glucose 113 mg/dL (74-106); Potassium 4.1 mmol/L (3.5-5.1); Sodium 141 mmol/L (136-145)
[2025-06-25 07:09] LABS: INR 1.97; Prothrombin Time 19.5 sec (9.0-11.6)
--- NOTE | 2025-06-25 08:09 | PT.DAILY ---
Physical Therapy Daily Note PT Daily Note/Assess Start: 06/22/25 08:24 Freq: Status: Active Protocol: Document 06/25/25 08:05 [email or web address] (Rec: 06/25/25 08:09 [id number]) Physical Therapy Daily Note/Assessment Time In/Time Out Time In 07:35 Time Out 07:49 Pain In Pain Level 0 Pain Out Pain Level 0 Subjective Subjective Supine upon arrival. Agrees to PT this morning. Denies pain currently. Therapeutic Exercise Time Therapeutic Exercise 4 Minutes (minutes) Therapeutic Exercise 0 Units Therapeutic Exercise Treatment Therapeutic Exercise Seated bilat LE strengthening ex complete while sitting Treatment EOB -(1 UE support) to improve functional mobility prior to gait and transfers. Therapeutic Activity Time Therapeutic Activity 8 Minutes (minutes) Therapeutic Activity 1 Units Therapeutic Activity Treatment Bed Mobility Ability Modified Independent,Standby Assistance Chair Transfer Modified Independent Ability Therapeutic Activity Supine>sit Han with increased time to complete. Sit> Comments stand Han to RW with assistance to set up RW. Pt amb 225' with RW, SBA with good johanna noticed. Pt able to hold conversation with amb without SOB. Pt returned to room in BS chair upon completion to order breakfast. Call light within reach and nursing notified of him being up. Total Physical Therapy Time Total Therapy 12 Minutes Total Physical 1 Therapy Units Summary Daily Note Summary Improving gait endurance and transfer ability.
[2025-06-25] MEDS: FINASTERIDE 5 MG TABLET PO (08:18)
[2025-06-25] MEDS: SENNOSIDES/DOCUSATE SODIUM 1 TAB TABLET 2 TAB PO (08:18)
[2025-06-25] MEDS: METOPROLOL SUCCINATE 100 MG TAB.ER.24H 150 MG PO (08:18)
[2025-06-25] MEDS: DOXYCYCLINE MONOHYDRATE 100 MG CAPSULE PO (08:24)
[2025-06-25] MEDS: EMPAGLIFLOZIN 25 MG 12.5 EACH PO (08:28)
[2025-06-25] MEDS: TIMOLOL OP (08:29)
[2025-06-25] MEDS: DORZOLAMIDE OP (08:29)
[2025-06-25] MEDS: EYE OP (08:29)
[2025-06-25] MEDS: 0.9 % SODIUM CHLORIDE 500 ML 250 ML IV (08:31)
[2025-06-25] MEDS: IPRATROPIUM/ALBUTEROL SULFATE 3 ML AMPUL.NEB IH (08:50)
--- NOTE | 2025-06-25 11:01 | P.DS_ITS ---
DS: Providers Provider Date of admission: 06/21/25 11:14 Primary care physician: Non-Staff Physician, Consults: 06/21/25 12:16 Occupational Therapy Eval and Treat Routine Reason for consultation: Weakness Physical Therapy Eval and Treat Routine Reason for consultation: Weakness DS: Diagnosis Discharge Diagnosis (1) Congestive heart failure (CHF): (2) Glaucoma: (3) A-fib: (4) Hypothyroidism: Qualifiers: Hypothyroidism type: unspecified Qualified Code(s): E03.9 - Hypothyroidism, unspecified (5) Pulmonary congestion: (6) Cachexia: (7) Moderate protein-calorie malnutrition: (8) Muscle wasting: (9) Hypoxic respiratory failure: Plan As listed above, below and others than are not listed DS: Summary Hospital Course Hospital Course: Mr. Christine is an 85-year-old gentleman who came in with shortness of breath. He was found to have the following: Acute systolic and diastolic heart failure. Echocardiogram showed cardiomyopathy, ejection fraction at 30%. His son stated that his EF has been around 25-30% for a while. [facility]. Mild degree of acute COPD exacerbation Basilar infiltration, rule out infectious process, rule out malignancy. CT scan showed bilateral at least moderate pleural effusion with interstitial edema. Cannot exclude infectious process which is less likely. Patient is afebrile, normal white count Pulmonary hypertension. RVSP is 55 Moderate mitral and aortic regurgitation Multifactorial acute hypoxic respiratory failure secondary to above SARS, influenza A and B are negative Echocardiogram and CT scan as reported above Continue diuresis. Input and output measurement. Albumin infusion to improve hydrostatic pressure. Patient is on appropriate GDMT including beta-kimmy, AMENA inhibitor, SGLT 1. Added small dose of MRA. Recommend BMP next week at [place] office. His a pleural effusion is likely transudative secondary to cardiomyopathy with low albumin level and low hydrostatic pressure. Conceivably, patient could have exudative process such as malignancy. Consideration for diagnostic and therapeutic thoracentesis. This will need to be done at the [facility]. Please refer to discharge instructions on this document. Attempt was made to transfer him to [facility] but do not have beds at this time. 06/24: Patient is doing better. Less subjective shortness of breath. Improvement of his chest exam. Chest x-ray showed resolution of vascular congestion. BNP is down from 15,000-6000. Lower extremities edema had resolved. I suspect that his output measurement is inaccurate. Continue current treatment. Possible discharge today Saturation is 96% on room air. Atrial flutter. Chronic. Patient is on Coumadin. Patient is on beta-kimmy. Continue Coumadin dose adjustment to keep INR between 2 and 3. Coumadin dosing is being handled by pharmacy. Continue beta-kimmy. Avoid calcium kimmy due to cardiomyopathy seen on echocardiogram Echocardiogram as listed above. Patient is to resume PT and INR testing at the [facility] starting next Friday. Cachexia, frailty, muscle wasting, failure to thrive, moderate protein calorie malnutrition. I started patient on protein oral supplementation. Requested CAT scan of the chest rule out lung malignancy. Further needed cachexia and weight loss workup including but not limited to cancer screening, the possible need of EGD, colonoscopy, others to be handled by PCP in the outpatient setting. Cognitive and functional impairment I suspect that patient may have a degree of vascular dementia. Functional impairment secondary to aging, cachexia, muscle wasting. No focal deficit. PT OT eval and treatment. Assess his home situation, safety and support. Likely will need home health care. May need short-term skilled. Hypothyroidism Continue Synthroid, check TSH. TSH is normal Glaucoma Continue eyedrop Constipation Stool softeners and laxatives BPH Continue Flomax Chronic medical conditions not listed above, incidental findings seen on labs and imaging. These would need to be addressed. Could be addressed when time and condition are appropriate. Could be addressed in the outpatient setting by PCP collaboration with other needed outpatient providers. Patient has multiple complex medical issues as listed above and others that are not listed. All appear to be stable. I do not have any clear or strong clinical justification to extend inpatient hospitalization. Patient however will require close and frequent monitoring as well as additional work-up, investigation and therapeutic intervention that could take place from this point on post discharge. That is to prevent relapse, decompensation, rehos pitalization and other medical implications.. I instructed patient to ask her primary care doctor to obtain [facility] record entirely to address abnormalities seen on labs and imaging that I have and have not addressed during this hospitalization, follow-up on pending blood work, imaging and pathology is if available and to follow-up on needed medical care in the outpatient setting. Time Spent with Patient Time attestation: Total time spent providing and/or coordinating discharge services: Exam Narrative Exam Narrative: Patient is sitting in the chair. Cachectic and frail in appearance. Pale skin and buccal mucosa. Bitemporal muscle bruising. Upper and lower extremities muscle wasting atrophy. Neck is supple. No JVD. Chest exam significant improvement of bilateral crackles and air entry compared to admission state. Heart is irregular Abdomen soft, nontender. Lower extremities trace pitting edema. Significant muscle wasting. Hard of hearing. Cognitive and functional impairment, mild to moderate degree. Please refer to physical Occupational Therapy team note for details on his functional status and treatment plan. Constitutional Vital Signs, click to edit/add: Last Vital Signs Temp 97.8 F 06/25/25 08:03 Pulse 79 06/25/25 09:53 Resp 16 06/25/25 05:41 BP 117/82 06/25/25 10:27 Pulse Ox 96 06/25/25 08:50 O2 Del Method Room Air 06/25/25 08:50 DS: Data Data Completed and Pending Labs on day of discharge: Labs from last 24 hours 06/25/25 06:27 PT 19.5 H INR 1.97 Sodium 141 Potassium 4.1 Chloride 105 Carbon Dioxide 29.9 Anion Gap 10.2 BUN 45.0 H Creatinine 1.13 Est GFR ( Amer) >60 Est GFR (Non-Af Amer) >60 BUN/Creatinine Ratio 39.8 Glucose 113 H Calcium 8.3 L Discharge Plan Discharge Disposition: Home, Self-Care Discharge Medications: New spironolactone [Aldactone] 25 mg tablet 25 mg PO DAILY Qty: 30 1RF Continued pantoprazole 40 mg tablet,delayed release (DR/EC) 40 mg PO DAILY tamsulosin 0.4 mg capsule 0.4 mg PO Q24H finasteride 5 mg tablet 5 mg PO DAILY empagliflozin 25 mg tablet 12.5 mg PO DAILY atorvastatin 10 mg tablet 10 mg PO QPM warfarin 2.5 mg tablet 2.5 mg PO .COMPLEX Rx Instructions: 2.5 mg orally; 2.5 mg orally friday, friday, friday, friday, FRIDAY, FRIDAY AND FRIDAY 3.75 mg (1.5 pills) on Friday furosemide 40 mg tablet 40 mg PO DAILY metoprolol succinate 100 mg tablet extended release 24 hr 150 mg PO DAILY lisinopril 2.5 mg tablet 2.5 mg PO DAILY metoclopramide HCl 5 mg tablet 5 mg PO Q8H dorzolamide-timolol [Cosopt] 22.3-6.8 mg/mL drops 1 drp ophthalmic (eye) QAM latanoprost 0.005 % drops 1 drp ophthalmic (eye) QPM levothyroxine [Euthyrox] 50 mcg tablet 50 mcg PO DAILY acetaminophen-codeine 300-30 mg tablet 1 tab PO Q6H PRN (Reason: pain) 5 Days Qty: 20 0RF Print Language: [place] Islander Activity Restrictions/Additional Instructions: I may not have addressed or treated all of your medical illnesses or the abnormal blood work or imaging studies during this hospitalization. Please ask your primary care provider to obtain [place] records entirely to follow up on all of the abnormal physical, laboratory, and imaging findings that I have not addressed. Please return back to the emergency room or seek medical attention if your symptoms worsen or return. I would recommend that you resume doing Coumadin blood test PT INR starting Friday or Friday. Coumadin dose would need to be adjusted by your primary care doctor to keep INR between 2 and 3. I would recommend that you get blood test called [facility] to be done next Friday or Friday to monitor your kidney function. This would need to be arranged by your primary care doctor. I would recommend that you see your doctor at the [facility] on July 04 to monitor your blood pressure, review your blood test and adjust your medication accordingly. Discharge medications are not final or set any stone. Your primary care doctor will need to adjust your medications to keep things in stable condition I would recommend that you have the procedure called thoracentesis to remove fluid from pleural space around the lung for the purpose of analyzing the fluid under the microscope and also for the purpose of relieving some pressure off your lungs. Discharging you from [place] does not mean that your medical care ends here and now. You may still need additional monitoring, work up, investigation, and treatment plan to be handled from this point on by out patient providers including your primary care provider and specialists. For any medication question, please contact your retail pharmacist or your primary care provider. Thank you. Forms: Portal Instructions Follow Up Appointments: [facility] [address] [phone] Jun @ 10:00
== END 2025-06-25 13:20 | disposition home or self-care (01) | DRG 291 ==
LOC: ER 10:11 → MS 11:18
PROVIDERS: Admitting Provider Internal Medicine; Emergency Provider Emergency Medicine; Visit Provider Internal Medicine
DX: I11.0 Hypertensive heart disease with heart failure (principal); I50.41 Acute combined systolic (congestive) and diastolic (congestive) heart failure; J96.01 Acute respiratory failure with hypoxia; R64 Cachexia; E44.0 Moderate protein-calorie malnutrition; J44.1 Chronic obstructive pulmonary disease with (acute) exacerbation; I48.92 Unspecified atrial flutter; I48.91 Unspecified atrial fibrillation; H40.9 Unspecified glaucoma; R54 Age-related physical debility; Z79.01 Long term (current) use of anticoagulants; Z87.891 Personal history of nicotine dependence; E03.9 Hypothyroidism, unspecified; R62.7 Adult failure to thrive; N40.0 Benign prostatic hyperplasia without lower urinary tract symptoms; Z79.899 Other long term (current) drug therapy; M62.59 Muscle wasting and atrophy, not elsewhere classified, multiple sites; I43 Cardiomyopathy in diseases classified elsewhere; I27.20 Pulmonary hypertension, unspecified; I08.1 Rheumatic disorders of both mitral and tricuspid valves; Z66 Do not resuscitate; H91.90 Unspecified hearing loss, unspecified ear; K59.00 Constipation, unspecified; F01.50 Vascular dementia, unspecified severity, without behavioral disturbance, psychotic disturbance, mood disturbance, and anxiety; Z68.21 Body mass index [BMI] 21.0-21.9, adult
CPT/HCPCS: 36415; 71045; 71250; 80048; 80053; 83036; 83735; 83880; 84100; 84443; 84484; 85025; 85610; 87804; 87811; 93005; 93306; 93356; 94640; 94761; 96374; 97110; 97161; 97165; 97530; 97535; 99285; J1938; J2919; P9046

== ENCOUNTER 2025-07-19 21:44 | Inpatient (IN) | payer OTHER, SELFPAY ==
[2025-07-19] VITALS (15 sets, daily range): BP systolic 95–126; BP diastolic 58–99; PULSE 83–98; TEMP 36.9; O2SAT 96–100; BMI 20.1
--- OUTSIDE RECORDS SUMMARY | 2025-07-19 21:51 | XMS_ITS | CCD ---
Author Organization [facility] Care Team Providers Care Reimbursement Auditor Name Role Phone Yves Sanford Unavailable [phone] MD Ivan Lopez Primary Care Provider BERNADINE Rivero Emergency Provider RONALD, DR ACEVEDO Primary Care Unavailable KEITH OLIVEIRA Admitting Unavailable KEITH OLIVEIRA Attending Unavailable KEITH OLIVEIRA Consulting Unavailable DORIAN YODER Consulting Unavailable MARKER ., DR OLSON Consulting Unavailable DORIAN SOARES Consulting Unavailable JOZEF SANDERS Consulting Unavailable MILAGROS MIXON Consulting Unavailable RONALD, DR ACEVEDO Primary Care Unavailable DEBRA OLIVEIRALAS Admitting Unavailable KEITH OLIVEIRA Attending Unavailable KEITH OLIVEIRA Consulting Unavailable DORIAN YODER Consulting Unavailable HAY ., DR FLORES Consulting Unavailable SCARLET RUSSELL Consulting Unavailable SHAR TREJO Consulting Unavailable Wilson John Consulting Unavailable SHAHZAD VILLALPANDO Consulting Unavailable RAMO TOMPKINS Consulting Unavailable GRACE .MARGOT Consulting Unavailable TAMDONOVAN .MP Consulting Unavailable RONALD, DR ACEVEDO Primary Care Unavailable MILAGROS MIXON Consulting Unavailable SCARLET RUSSELL Admitting Unavailable SCARLET RUSSELL Attending Unavailable MOHIT, YANA E Referring Unavailable RUEDA, YANA E Primary Care Unavailable RUEDA, YANA E Referring Unavailable RUEDA, YANA E Primary Care Unavailable RUEDA, YANA E Referring Unavailable RUEDA, YANA E Primary Care Unavailable Madyson Galvez MD Emergency Provider [phone] [facility] (Clinic) Karoline HERNÁNDEZ Primary Care Provider Elizabeth (Clinic)Karoline Primary Care UnavailMadyson Lopez Attending Unavailable Madyson Galvez Admitting Unavailable Allergies Allergy ClassificationReported Allergen(s)Allergy TypeDate of OnsetReaction(s) Facility (2 sources)Ondansetron; Translations: [ondansetron]Drug Djdihsg76-98-0143Rvmnly [facility] (1 source)OndansetronDrug Gilgqad62-81-8422[facility]er[facility] Medications Current Medications MedicationDrug Class(es)DatesSig (Normalized)Sig (Original)atorvastatin 10 mg oral tablet (1 source)HMG-CoA Reductase InhibitorStart: 57-19-3664cqle 1 tablet by mouth once dailyAtorvastatin 10 mg tablet Active 10 MG PO Daily July 04, 2025 12:00am Complies with drug therapybrimonidine tartrate 2 mg/ml / timolol 5 mg/ml ophthalmic solution (1 source)alpha-Adrenergic Agonist, beta-Adrenergic BlockerStart: 07-04-2025 Brimonidine-Timolol 0.2-0.5 % drops Active 1 DROPS EYE-BOTH Daily July 04, 2025 12:00am Complies with drug therapyempagliflozin 25 mg oral tablet (1 source)Sodium-Glucose Cotransporter 2 InhibitorStart: 52-35-7465yceg 1 tablet by mouth once dailyEmpagliflozin 25 mg tablet Active 12.5 MG PO Daily July 04, 2025 12:00am Complies with drug therapyfinasteride 5 mg oral tablet (1 source)5-alpha Reductase InhibitorStart: 71-23-7704spuk 1 tablet by mouth once dailyFinasteride 5 mg tablet Active 5 MG PO Daily July 04, 2025 12:00am Complies with drug therapyfurosemide 40 mg oral tablet (1 source)Loop DiureticStart: 82-59-7740wobp 1 tablet by mouth once daily Furosemide (Lasix) 40 mg tablet Active 40 MG PO daily July 04, 2025 12:00am Complies with drug therapyHydrophilic ointment (1 source)Start: 65-90-4994Dqsyaaltvsm ointment Active 1 APPLIC TOPICAL Daily as needed for dry skin July 04, 2025 12:00amComplies with drug therapy latanoprost 0.05 mg/ml ophthalmic solution (1 source)Prostaglandin AnalogStart: 47-58-8402gmso 1 drop(s) into the eye(s) once daily in the eveningLatanoprost 0.005 % drops Active 1 DROPS EYE-BOTH Every evening July 04, 2025 12:00am Complies with drug therapylevothyroxine sodium 0.075 mg oral tablet (1 source)l-ThyroxineStart: 15-88-9200iqcf 1 tablet by mouth once daily Levothyroxine (Euthyrox) 75 mcg tablet Active 75 MCG PO Daily July 04, 2025 12:00am Complies with drug therapylidocaine 0.05 mg/mg medicated patch (1 source)Antiarrhythmic, Amide Local AnestheticStart: 22-95-5612kptox 1 dose topically once dailyLidocaine (Dermacinrx Lidocan) 5 % adhesive patch,medicated Active 2 PATCH TOPICAL Daily July 04, 2025 12:00am leave on most painful area for up to 12 hrs Complies with drug therapylisinopril 2.5 mg oral tablet (1 source)Angiotensin Converting Enzyme InhibitorStart: 89-72-9156cuqq 1 tablet by mouth once dailyLisinopril 2.5 mg tablet Active 2.5 MG PO Daily July 04, 2025 12:00am Complies with drug therapyloperamide hydrochloride 2 mg oral tablet (2 sources)Opioid Agonisttake 1 tablet by mouth every six hoursImodium A-D 2 MG 1 tablet as needed Orally Four times a day Activemetoclopramide 5 mg oral tablet (1 source)Dopamine-2 Receptor AntagonistStart: 36-61-1035zvjb 1 tablet by mouth three times dailyMetoclopramide Hcl 5 mg tablet Active 5 MG PO Three times daily July 04, 2025 12:00am Complies with drug kwqykds80 hr metoprolol succinate 100 mg extended release oral tablet (1 source)beta-Adrenergic BlockerStart: 05-86-9831Blcixhhwvz Succinate (Toprol Xl) 100 mg tablet extended release 24 hr Active 150 MG PO Daily July 04, 2025 12:00am Complies with drug therapypantoprazole 40 mg delayed release oral tablet (1 source)Proton Pump InhibitorStart: 27-63-3137bqzt 1 tablet by mouth once dailyPantoprazole 40 mg tablet,delayed release (DR/EC) Active 40 MG PO Daily July 04, 2025 12:00am Complies with drug therapyspironolactone 25 mg oral tablet (1 source)Aldosterone AntagonistStart: 18-34-5934xocz 1 tablet by mouth once dailySpironolactone 25 mg tablet Active 25 MG PO Daily July 04, 2025 12:00am Complies with drug therapytamsulosin hydrochloride 0.4 mg oral capsule (1 source)alpha-Adrenergic BlockerStart: 94-61-8928mlas 1 capsule by mouth once dailyTamsulosin 0.4 mg capsule Active 0.4 MG PO Daily July 04, 2025 12:00am Complies with drug therapywarfarin sodium 2.5 mg oral tablet (5 sources)Vitamin K AntagonistStart: 53-91-3266cayc 1 tablet by mouth once dailyWarfarin 2.5 mg tablet Active 2.5 MG PO Daily July 04, 2025 12:00am Complies with drug therapyCoumadin Active Completed/Discontinued Medications MedicationDrug Class(es)DatesSig (Normalized)Sig (Original)ondansetron 4 mg disintegrating oral tablet (4 sources)Serotonin-3 Receptor AntagonistStart: 07-09-2022 End: 39-95-8133tngr 1 tablet by mouth every eight hours as needed for nausea and vomitingOndansetron 4 mg tablet,disintegrating Discontinued 4 MG PO Q8H as needed for nausea and vomiting 62 July 09, 2022 12:00am January 10, 2023 1:14pmStart: 22-85-4804ookp 1 tablet by mouth every twenty-four hoursOndansetron HCl 4 MG 1 tablet Orally Once a day for 30 day(s) Apr, Active Problems Active Problems Problem ClassificationProblemDateDocumented DateEpisodic/ChronicAcute and unspecified renal failure (3 sources)Injury of kidney; Translations: [Acute kidney failure, unspecified] Onset: 454180-02-7340ThauysfsIakzvjv on above:Problem List clean-up per request of Phys. EHR CmteBacterial infection; unspecified site (1 source)Helicobacter pylori [H. pylori] as the cause of diseases classified elsewhere; Translations: [H PYLORI CAUSE OF DZ CLASS ELSW]Onset: 02-11-2023 EpisodicBiliary tract disease (1 source)Calculus of gallbladder without cholecystitis without obstruction; Translations: [CALCU GB W/O CHOLECYST W/O OBST]Onset: 41-10-7364TehwuopzOohrpsf dysrhythmias (1 source)Unspecified atrial fibrillation; Translations: [UNSPECIFIED ATRIAL FIBRILLATION]Onset: 53-44-4515KwrzepaOmmkumu kidney disease (1 source)Chronic kidney disease; Translations: [Chronic kidney disease, unspecified]28-29-7113LgonffpTzfahuqkkg heart failure; nonhypertensive (1 source)Heart failure, unspecified; Translations: [HEART FAILURE UNSPECIFIED] Onset: 68-21-2063EyszuqkKfxccvzl mellitus with complications (1 source)Type 2 diabetes mellitus with diabetic autonomic (poly)neuropathy; Translations: [TYPE 2 DM W/DIAB AUTONOM NEUROPATHY]Onset: 80-76-8860Uehppth Diabetes mellitus without complication (1 source)Type 2 diabetes mellitus without complications; Translations: [TYPE 2 DM WITHOUT COMPLICATIONS]Onset: 41-02-3955IexghaxNopsllon of white blood cells (1 source)Elevated white blood cell count, unspecified; Translations: [ELEVATED WHITE BLOOD CELL COUNT UNS]Onset: 34-87-1951DwxnpkyEcnxjlzzn of lipid metabolism (2 sources)Pure hypercholesterolemia, unspecified; Translations: [Hyperlipidemia, unspecified]Onset: 41-10-6124DofmmscX Codes: Adverse effects of medical drugs (1 source)Adverse effect of anticoagulants, initial encounter; Translations: [ADVERSE EFFECT ANTICOAG INITIALENC]Onset: 02-43-4625KhyekcovOiyxmbimi hypertension (1 source)Essential (primary) hypertension; Translations: [ESSENTIAL PRIMARY HYPERTENSION]Onset: 59-23-2745VrrupsaRjjov and electrolyte disorders (2 sources)Hypo-osmolality and hyponatremia; Translations: [Dehydration]Onset: 62-28-0304FdqghyruIgeibmbyl and duodenitis (1 source)Gastritis, unspecified, without bleeding; Translations: [GASTRITIS UNS WITHOUT BLEEDING]Onset: 31-32-3893SwsnapppCdtdzfpy (1 source)Unspecified glaucoma; Translations: [UNSPECIFIED GLAUCOMA]Onset: 46-09-8326AynfaikAcyxdzxgfpd of prostate (1 source)Benign prostatic hyperplasia without lower urinary tract symptoms; Translations: [BENIGN PROSTATIC HYPRPLASIA WO LUTS]Onset: 57-83-8891Fervgel Hypertension with complications and secondary hypertension (1 source)Hypertensive heart disease with heart failure; Translations: [HTN HEART DISEASE W/HEART FAIL]Onset: 53-92-0944FwakpqxXvsxgbwywr obstruction without hernia (4 sources)Unspecified intestinal obstruction, unspecified as to partial versus complete obstruction; Translations: [Partial intestinal obstruction, unspecified as to cause]Onset: 60-35-2689YhpiudunUtjeeh and vomiting (6 sources)Nausea; Translations: [Nausea and vomiting]Onset: 05-23-2022 Resolved: 53-32-5901OogbnpnvAekjeth on above:Problem List clean-up per request of Phys. 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; Translations: [OTH SHELTER CURRENT DRUG THERAPY]Onset: 92-24-2623YrmjagwsSqlap circulatory disease (6 sources)Hypotension, unspecified; Translations: [HYPOTENSION UNSPECIFIED] Onset: 35-19-4263TqtojcpeIdcoy circulatory disease (1 source)Low blood pressure; Translations: [Hypotension, unspecified]07-04-2025 EpisodicOther disorders of stomach and duodenum (1 source)Gastroparesis; Translations: [GASTROPARESIS]Onset: 02-56-2502Ssivhvjv Other gastrointestinal disorders (3 sources)Altered bowel function; Translations: [Change in bowel habit]Episodic Other gastrointestinal disorders (5 sources)Diarrhea; Translations: [Diarrhea, unspecified]55-93-1345Zmofjrwv Comment on above:Problem List clean-up per request of Phys. EHR CmteOther injuries and conditions due to external causes (2 sources)Injury of head; Translations: [Unspecified injury of head, initial encounter]94-39-7404BhgrnvdzZnmtxdx on above:Problem List clean-up per request of Phys. EHR CmteOther injuries and conditions due to external causes (1 source)Systemic inflammatory response syndrome (SIRS) of non-infectious origin without acute organ dysfunction; Translations: [SIRS NON-INF ORIG NO AC ORGAN DYSF]Onset: 66-88-9815LnvyjttlQrknp nutritional; endocrine; and metabolic disorders (4 sources)Weight loss; Translations: [Abnormal weight loss]EpisodicOther screening for suspected conditions (not mental disorders or infectious disease) (1 source)Abnormal coagulation profile; Translations: [ABNORMAL COAGULATION PROFILE]Onset: 36-12-2989NhvusewmWuygfwng codes; unclassified (3 sources)History of excision of intestinal structure; Translations: [Acquired absence of other specified parts of digestive tract]EpisodicResidual codes; unclassified (2 sources)Acquired absence of other specified parts of digestive tract; Translations: [ACQ ABSENCE OTH PART DIGESTV TRACT]Onset: 02-21-2022 Resolved: 98-71-8868ExfogcgsDaevvvta codes; unclassified (1 source)Pain, unspecified; Translations: [Pain, unspecified]Onset: 07-06-2024 EpisodicScreening and history of mental health and substance abuse codes (1 source)Personal history of nicotine dependence; Translations: [PERSONAL HISTORY OF NICOTINE DEPEND]Onset: 81-80-8590DirmjxlxDixfwwhixjil (1 source)Chronic atrial fibrillation, unspecified; Translations: [CHRONIC ATRIAL FIBRILLATION UNSPEC]Onset: 20-13-5565Radthqmgkajj (1 source)ACIDOSIS UNSPECIFIED; Translations: [ACIDOSIS UNSPECIFIED]Onset: 01-54-7360Zwnakybfmfge (1 source)CONTACT W/AND (SUSP) EXPOS COVID-19; Translations: [CONTACT W/AND (SUSP) EXPOS COVID-19]Onset: 02-11-2023 Past or Other Problems Problem ClassificationProblemDateDocumented DateEpisodic/ChronicOther gastrointestinal disorders (3 sources)Diarrhea, unspecifiedOnset: 11-22-2021 Resolved: 35-82-1343IpnxlcclLkugr gastrointestinal disorders (1 source)Change in bowel habitOnset: 02-21-2022 Resolved: 41-18-5806XrjorzalTnirq nutritional; endocrine; and metabolic disorders (2 sources)Abnormal weight lossOnset: 11-22-2021 Resolved: 68-47-4039Wufxzdpu Results Test NameValueInterpretationReference RangeFacilityAlanine aminotransferase [Enzymatic activity/volume] in Serum or PlasmaOrdered By: Madyson Galvez on 76-39-7612CMK [Catalytic activity/Vol]29 U/LNormal7-52[facility] HospitalComment on above:Performed By: #### BNP, HS TROP, CUBLD, CMP, PT, LACTIC, CBC #### [facility] [address] [place] [address] USAAlbumin [Mass/volume] in Serum or Plasma by Bromocresol green (BCG) dye binding methoOrdered By: Madyson Galvez on 32-02-2252Vjymimq BCG dye [Mass/Vol]3.8 g/dL3.5-5.7FDayton Children's HospitalAlkaline phosphatase [Enzymatic activity/volume] in Serum or PlasmaOrdered By: Madyson Galvez on 17-35-3420KXV [Catalytic activity/Vol]90 U/ADdhgda47-370OfihezhxkWyandot Memorial HospitalComment on above:Performed By: #### BNP, HS TROP, CUBLD, CMP, PT, LACTIC, CBC #### [facility] [address] [place] [address] USAAppearance of UrineOrdered By: Madyson Galvez on 41-56-0889Cbjkbgdgwz (U)ClearNormalClearWyandot Memorial HospitalComment on above:Order Comment: Name Collection Type:: Clean-Voided MidstreamPerformed By: #### BNP, HS TROP, CUBLD, CMP, PT, LACTIC, CBC #### [facility] [address] [place] [address] USAAspartate aminotransferase [Enzymatic activity/volume] in Serum or PlasmaOrdered By: Madyson Galvez on 35-35-4846JCF [Catalytic activity/Vol]27 U/GOwjlhm81-44NrtnvjjgaWyandot Memorial HospitalComment on above: Performed By: #### BNP, HS TROP, CUBLD, CMP, PT, LACTIC, CBC #### [facility] [address] [place] [address] USABNP ser/plasOrdered By: Madyson Galvez on 07-04-2025 Natriuretic peptide B (Bld) [Mass/Vol]267.0 pg/mLHigh5-100[facility] HospitalComment on above:Result Comment: PERFORMED BY: [place] [address] PATHOLOGIST MASTIC SPRAYER REYMUNDO POOLE M.D.Performed By: #### BNP, HS TROP, CUBLD, CMP, PT, LACTIC, CBC #### [facility] [address] [place] [address] USABasophils [#/volume] in Blood by Automated countOrdered By: Madyson Galvez on 44-96-5442Nkorsztjt (Bld) [#/Vol]0.0 10*3/uLNormal0.0-0.2 [facility] HospitalComment on above:Result Comment: PERFORMED BY: [place] [address] PATHOLOGIST MASTIC SPRAYER REYMUNDO POOLE M.D.Performed By: #### BNP, HS TROP, CUBLD, CMP, PT, LACTIC, CBC #### [place] [address] USABasophils/100 leukocytes in Blood by Automated count Ordered By: Madyson Galvez on 85-21-2144Arnsnrejy/100 WBC (Bld)0.4 %Normal. [facility] HospitalComment on above:Performed By: #### BNP, HS TROP, CUBLD, CMP, PT, LACTIC, CBC #### [place] [address] USABilirubin Test strip Ql (U)Ordered By: Madyson Galvez on 80-88-6217Ptkzezpre Ql (U)NegativeNegativeWyandot Memorial Hospital Bilirubin.total [Mass/volume] in Serum or PlasmaOrdered By: Madyson Galvez on 78-63-9552Bwaqsdqsw [Mass/Vol]0.7 mg/dLNormal0.3-1.0[facility] HospitalComment on above:Performed By: #### BNP, HS TROP, CUBLD, CMP, PT, LACTIC, CBC #### [place] [address] USABlood Cultureon 56-42-8686Kzypfzrw identified Cx Nom (Bld) NO GROWTH 5 DAYS PERFORMED BY: [place] [address] PATHOLOGIST MASTIC SPRAYER REYMUNDO POOLE M.D.NormalThe Maria Parham Health Physician GroupComment on above: Performed By: #### BNP, HS TROP, CUBLD, CMP, PT, LACTIC, CBC #### [facility] [address] [place] [address] USABacteria identified Cx Nom (Bld)NO GROWTH 5 DAYS PERFORMED BY: [place] [address] PATHOLOGIST MASTIC SPRAYER REYMNUDO POOLE M.D.[facility] Physician GroupComment on above: Performed By: #### BNP, HS TROP, CUBLD, CMP, PT, LACTIC, CBC #### [place] [address] USACalcium [Mass/volume] in Serum or PlasmaOrdered By: Madyson Galvez on 83-44-0755Kxbfpvw [Mass/Vol]9.0 mg/dLNormal8.6-10.3FDayton Children's HospitalComment on above:Performed By: #### BNP, HS TROP, CUBLD, CMP, PT, LACTIC, CBC #### [place] [address] USACarbon dioxide, total [Moles/volume] in Serum or Plasma Ordered By: Madyson Galvez on 31-46-8324EA4 [Moles/Vol]21.6 mmol/LNormal 21.0-31.0[facility] HospitalComment on above:Performed By: #### BNP, HS TROP, CUBLD, CMP, PT, LACTIC, CBC #### [place] [id number] USAChloride [Moles/volume] in Serum or PlasmaOrdered By: Madyson Galvez on 56-80-4742Qdvtlqkp [Moles/Vol]107 mmol/GMhqqyn20-382TrgzyccydWyandot Memorial HospitalComment on above:Performed By: #### BNP, HS TROP, CUBLD, CMP, PT, LACTIC, CBC #### [place] [id number] USAColor of Urine by AutoOrdered By: Madyson Galvez on 66-52-6360Sncsq (U)YellowNormalYellowWyandot Memorial HospitalComment on above:Order Comment: Name Collection Type:: Clean-Voided MidstreamPerformed By: #### BNP, HS TROP, CUBLD, CMP, PT, LACTIC, CBC #### [place] [address] USAComplete Blood Count Auto Diffon 67-49-2985Ubjv Corpuscular HGB Conc33.3 g/eWMfepxz90.5-35.6The [facility] Health Physician GroupComment on above:Performed By: #### BNP, HS TROP, CUBLD, CMP, PT, LACTIC, CBC #### [place] [address] USAMonocytes/100 WBC (Bld)18.67 %Normal0.00-20.00The [facility] Health Physician GroupComment on above:Performed By: #### BNP, HS TROP, CUBLD, CMP, PT, LACTIC, CBC #### [place] [address] USANRBC%0.1 /100{WBC}Normal0-0.5The [facility] Comment on above:Performed By: #### BNP, HS TROP, CUBLD, CMP, PT, LACTIC, CBC #### [place] [address] USAWhite Blood Count7.7 [CFU]/mLNormal4.1-10.5The [facility] Health Physician GroupComment on above:Performed By: #### BNP, HS TROP, CUBLD, CMP, PT, LACTIC, CBC #### [place] [address] USAComprehensive Metabolic Panelon 81-19-3950Hmtbzbi [Mass/Vol]3.8 g/dLNormal3.5-5.7The [facility] Physician [facility] CenterComment on above: Performed By: #### BNP, HS TROP, CUBLD, CMP, PT, LACTIC, CBC #### [place] [address] USACreatinine Clr Calc Eajdgrdt98.54NormalThe [facility] Health Physician GroupComment on above:Result Comment: PERFORMED BY: [place] [address] PATHOLOGIST MASTIC SPRAYER REYMUNDO POOLE M.D.Performed By: #### BNP, HS TROP, CUBLD, CMP, PT, LACTIC, CBC #### [facility] [address] [place] [id number] USAGFR/1.73 sq M.predicted MDRD (S/P/Bld) [Vol rate/Area] 59.632 mL/min/{1.73_m2}NormalThe [facility] Health Physician GroupComment on above: Performed By: #### BNP, HS TROP, CUBLD, CMP, PT, LACTIC, CBC #### [facility] [address] [place] [address] USACreatinine [Mass/volume] in Serum or PlasmaOrdered By: Madyson Galvez on 57-14-4393Suimcptxfd [Mass/Vol]1.20 mg/dLNormal0.70-1.30 [facility] HospitalComment on above:Performed By: #### BNP, HS TROP, CUBLD, CMP, PT, LACTIC, CBC #### [facility] [address] [place] [id number] USAECG 12 lead ECGon 66-02-4982KNJ 12 lead [facility] [place] [address] [place] [address] Electrocardiograph Report Signed Patient: Navin Christine MR#: [id number] : 1940 Acct:[id number] Age/Sex: 85 / M ADM Date: 07/04/25 Loc: ER Room: Type: [facility] ER Attending Dr: Ordering Provider: Madyson Galvez MD Date of Service: 07/04/2503/23/1204 ECG/ECG 12 lead ECG: Recheck/Abnormal Lab/Rx Copies to: Test Reason : Blood Pressure : 119/76 mmHG Vent. Rate : 70 BPM Atrial Rate : 288 BPM P-R Int : * ms QRS Dur : 136 ms QT Int : 444 ms P-R-T Axes : * -80 59 degrees QTcB Int : 479 ms Atrial fibrillation Left axis deviation Right bundle branch block Confirmed by Madyson Galvez MD ([id number]) on 07/04/2025 3:00:33 PM Referred By: Electronically Signed By: Madyson Galvez MD Transcribed By: MUS Signed By Madyson Galvez MD 03/[address] [place] [address] Physician GroupECG 12 lead [facility] [place] [address] [place] [address] Electrocardiograph Report Signed Patient: Navin Christine SR MR#: [id number] : 1940 Acct:[id number] Age/Sex: 85 / M ADM Date: 07/04/25 Loc: ER Room: Type: [facility] ER Attending Dr: Ordering Provider: Madyson Galvez MD Date of Service: 07/04/2503/23/1120 ECG/ECG 12 lead ECG: Recheck/Abnormal Lab/Rx Copies to: Test Reason : Blood Pressure : 83/53 mmHG Vent. Rate : 73 BPM Atrial Rate : 153 BPM P-R Int : * ms QRS Dur : 134 ms QT Int : 464 ms P-R-T Axes : * -77 57 degrees QTcB Int : 511 ms Atrial fibrillation Left axis deviation Right bundle branch block Confirmed by Madyson Galvez MD ([id number]) on 07/04/2025 3:00:49 PM Referred By: Electronically Signed By: Madyson Galvez MD Transcribed By: MUS Signed By Madyson Galvez MD 03/[address] [place] [address] Physician GroupEosinophils [#/volume] in Blood by Automated countOrdered By: Madyson Galvez on 16-80-9665Oqkgrwfsfol (Bld) [#/Vol] 0.1 10*3/uLNormal0.0-0.45[facility] HospitalComment on above: Performed By: #### BNP, HS TROP, CUBLD, CMP, PT, LACTIC, CBC #### [facility] [address] [place] [address] USAEosinophils/100 leukocytes in Blood by Automated count Ordered By: Madyson Galvez on 98-21-5089Gskhwirqjiu/100 WBC (Bld)1.6 %Normal. [facility] HospitalComment on above:Performed By: #### BNP, HS TROP, CUBLD, CMP, PT, LACTIC, CBC #### [facility] [address] [place] [address] USAErythrocyte distribution width [Ratio] by Automated count Ordered By: Madyson Galvez on 85-93-8039Mwnpohrmwhu distribution width (RBC) [Ratio]16.3 %High12.0-14.8W[facility] HospitalComment on above: Performed By: #### BNP, HS TROP, CUBLD, CMP, PT, LACTIC, CBC #### [facility] [address] [place] [address] USAErythrocytes [#/volume] in Blood by Automated countOrdered By: Madyson Galvez on 71-25-1812CVW (Bld) [#/Vol]4.20 10*6/uLNormal3.90-5.60 [facility] HospitalComment on above:Performed By: #### BNP, HS TROP, CUBLD, CMP, PT, LACTIC, CBC #### [facility] [address] [place] [address] USAGlomerular filtration rate [Volume Rate/Area] in Serum, Plasma or Blood by CreatinineOrdered By: Madyson Galvez on 15-14-9947Pgztgdfbsc filtration rate [Volume Rate/Area] in Serum, Plasma or Blood by Svpqacwmcl35.632 mL/MinWyandot Memorial HospitalGlucose [Mass/volume] in Serum or Plasma Ordered By: Madyson Galvez on 83-40-9346Fmjvwzw [Mass/Vol]110 mg/kUZpuz39-714 [facility] HospitalComment on above:ADA recommended reference rangeRandom Glucose Reference Range is dependent on time and content of last meal. Glucose of more than 200 mg/dL in a nonstressed, ambulatory subject supports the diagnosisof Diabetes Mellitus.Result Comment: Random Glucose Reference Range is dependent on time and content of last meal. Glucose of more than 200 mg/dL in a nonstressed, ambulatory subject supports the diagnosis of Diabetes Mellitus. ADA recommended reference rangePerformed By: #### BNP, HS TROP, CUBLD, CMP, PT, LACTIC, CBC #### [facility] [address] [place] [address] USAGlucose [Mass/volume] in Urine by Test stripOrdered By: Madyson Galvez on 61-12-0736Izvhzec Test strip (U) [Mass/Vol]>=1000 mg/dLHigh NormalWyandot Memorial HospitalHematocrit [Volume Fraction] of Blood by Automated countOrdered By: Madyson Galvez on 45-85-7196Ezvqkeyhkx (Bld) [Volume fraction]40.1 %Ducuja95.8-50.0[facility] HospitalComment on above: Performed By: #### BNP, HS TROP, CUBLD, CMP, PT, LACTIC, CBC #### [facility] [address] [id number] USAHemoglobin Test strip Ql (U)Ordered By: Madyson Galvez on 11-72-0742Ypzavulucg Ql (U)NegativeNegativeWyandot Memorial Hospital Hemoglobin [Mass/volume] in BloodOrdered By: Madyson Galvez on 07-04-2025 Hemoglobin (Bld) [Mass/Vol]13.4 g/dERsmmfz88.0-17.0[facility] HospitalComment on above:Performed By: #### BNP, HS TROP, CUBLD, CMP, PT, LACTIC, CBC #### [facility] [address] [phone] USAINR in Platelet poor plasma by Coagulation assayOrdered By: Madyson Galvez on 84-24-1912NYW Coag (PPP) [Relative time]1.7 {INR}Normal [facility] HospitalComment on above:INR Therapeutic Range A) Pre- and Peroperative OAT started two weeks before surgery. NOT HIP SURGERY: 1.5 - 2.5 HIP SURGERY: 2 - 3B) Primary and secondary prevention of venous THROMBOSIS: 2 - 3C) Active venous thrombosis, pulmonary embolismand prevention of recurrent venous thrombosis: 2 - 3D) Prevention of arterial thromboembolismincluding patients with mechanical heart valves: 3 - 4.5Result Comment: INR Therapeutic Range A) Pre- and Peroperative OAT started two weeks before surgery. NOT HIP SURGERY: 1.5 - 2.5 HIP SURGERY: 2 - 3 B) Primary and secondary prevention of venous THROMBOSIS: 2 - 3 C) Active venous thrombosis, pulmonary embolism and prevention of recurrent venous thrombosis: 2 - 3 D) Prevention of arterial thromboembolism including patients with mechanical heart valves: 3 - 4.5 PERFORMED BY: [place] [address] PATHOLOGIST MASTIC SPRAYER REYMUNDO POOLE M.D.Performed By: #### BNP, HS TROP, CUBLD, CMP, PT, LACTIC, CBC #### [facility] [address] [place] [address] USAKetones [Presence] in Urine by Test stripOrdered By: Madyson Galvez on 57-82-9846Zpcmqde Ql (U)NegativeNormalNegCommunity Regional Medical CenterComment on above:Order Comment: Name Collection Type:: Clean-Voided MidstreamPerformed By: #### BNP, HS TROP, CUBLD, CMP, PT, LACTIC, CBC #### [facility] [address] [place] [address] USALactate [Moles/volume] in Serum or PlasmaOrdered By: Madyson Galvez on 66-35-7364Ajbvube [Moles/Vol]1.0 mmol/LNormal0.5-1.9[facility] HospitalComment on above:Lactic Acid reference range has been updated to 0.5 1.9 mmol/L and the critical range of 2.0 or greater.Result Comment: Lactic Acid reference range has been updated to 0.5 ? 1.9 mmol/L and the critical range of 2.0 or greater. PERFORMED BY: [place] [address] PATHOLOGIST MASTIC SPRAYER REYMUNDO POOLE M.D.Performed By: #### BNP, HS TROP, CUBLD, CMP, PT, LACTIC, CBC #### [address] [place] [id number] USALeukocyte esterase [Presence] in Urine by Test strip Ordered By: Madyson Galvez on 05-03-2599Nazaowdrf esterase Test strip Ql (U) NegativeNormalNegCommunity Regional Medical CenterComment on above:Order Comment: Name Collection Type:: Clean-Voided MidstreamPerformed By: #### BNP, HS TROP, CUBLD, CMP, PT, LACTIC, CBC #### [facility] [address] [place] [address] USALeukocytes [#/volume] corrected for nucleated erythrocytes in Blood by Automated counOrdered By: Madyson Galvez on 02-96-1488EQB corrected for nucl RBC Auto (Bld) [#/Vol]7.7 10*3/uL4.1-10.5FDayton Children's HospitalLeukocytes [#/volume] in Blood by Automated countOrdered By: Madyson Galvez on 44-35-0128QSF (Bld) [#/Vol]7.7 10*3/uLNormal4.1-10.5FDayton Children's HospitalComment on above:Performed By: #### BNP, HS TROP, CUBLD, CMP, PT, LACTIC, CBC #### [facility] [address] [place] [address] USALymphocytes [#/volume] in Blood by Automated countOrdered By: Madyson Galvez on 30-45-6877Vkcerqhdfir (Bld) [#/Vol]0.7 10*3/uLLow1.00-4.8 [facility] HospitalComment on above:Performed By: #### BNP, HS TROP, CUBLD, CMP, PT, LACTIC, CBC #### [facility] [address] [phone] USALymphocytes/100 leukocytes in Blood by Automated count Ordered By: Madyson Galvez on 38-90-7453Zdwyglunlyl/100 WBC (Bld)9.3 %Normal. [facility] HospitalComment on above:Performed By: #### BNP, HS TROP, CUBLD, CMP, PT, LACTIC, CBC #### [address] [Entitic mass] by Automated countOrdered By: Madyson Galvez on 81-84-3466MDS (RBC) [Entitic mass]31.8 ekGkiqnz04.5-35.2FDayton Children's HospitalComment on above:Performed By: #### BNP, HS TROP, CUBLD, CMP, PT, LACTIC, CBC #### [facility] [address] [phone] [facility] Auto (RBC) [Mass/Vol]Ordered By: Madyson Galvez on 37-07-8634AEAO (RBC) [Mass/Vol]33.3 g/dL32.5-35.6FDayton Children's HospitalMCV [Entitic volume] by Automated countOrdered By: Madyson Galvez on 61-74-0266JJF (RBC) [Entitic vol]95.3 oWGtcsod99.5-101W[facility] HospitalComment on above:Performed By: #### BNP, HS TROP, CUBLD, CMP, PT, LACTIC, CBC #### [facility] [address] [phone] USAMonocyte distribution width [Entitic volume] in Blood by AutomatedOrdered By: Madyson Galvez on 87-92-3009Etjtoblg distribution width Auto (Bld) [Entitic vol]18.67 %0.00-20.00[facility] Monocytes [#/volume] in Blood by Automated countOrdered By: Madyson Galvez on 19-33-2466Uylzkjfao (Bld) [#/Vol]0.9 10*3/uLHigh0.0-0.8[facility] HospitalComment on above:Performed By: #### BNP, HS TROP, CUBLD, CMP, PT, LACTIC, CBC #### [facility] [address] [place] [address] USAMonocytes/100 leukocytes in Blood by Automated count Ordered By: Madyson Galvez on 74-59-7724Ilbeujbaq/100 WBC (Bld)12.0 %Normal. [facility] HospitalComment on above:Performed By: #### BNP, HS TROP, CUBLD, CMP, PT, LACTIC, CBC #### [facility] [address] [phone] USANeutrophils [#/volume] in Blood by Automated countOrdered By: Madyson Galvez on 54-84-8669Drkclibvlin (Bld) [#/Vol]5.9 10*3/uLNormal 1.8-7.7FDayton Children's HospitalComment on above:Performed By: #### BNP, HS TROP, CUBLD, CMP, PT, LACTIC, CBC #### [facility] [address] [place] [address] USANeutrophils/100 leukocytes in Blood by Automated count Ordered By: Madyson Galvez on 50-19-4141Uamagidbfxx/100 WBC (Bld)76.7 %Normal. [facility] HospitalComment on above:Performed By: #### BNP, HS TROP, CUBLD, CMP, PT, LACTIC, CBC #### [facility] [address] [place] [address] USANitrite Test strip Ql (U)Ordered By: Madyson Galvez on 78-00-9225Jeneksw Ql (U)NegativeNegativeWyandot Memorial HospitalNo Panel InformationOrdered By: Madyson Galvez on 98-78-7505Rzlppkep Creatinine Clearance (Chem39.54W[facility] Memorial HospitalNucleated erythrocytes [Presence] in Blood by Automated countOrdered By: Madyson Galvez on 07-04-2025 Nucleated RBC Auto Ql (Bld)0.1 /100{WBC}0-0.5FDayton Children's Hospital Platelet mean volume [Entitic volume] in Blood by Automated countOrdered By: Madyson Galvez on 77-57-6567Yxsunior mean volume (Bld) [Entitic vol]8.4 fLNormal 6.6-10.1FDayton Children's HospitalComment on above:Performed By: #### BNP, HS TROP, CUBLD, CMP, PT, LACTIC, CBC #### [facility] [address] [place] [address] USAPlatelets [#/volume] in Blood by Automated countOrdered By: Madyson Galvez on 95-29-4599Gdvdvyqoc (Bld) [#/Vol]181 10*3/zNDfmwlx113-472 [facility] HospitalComment on above:Performed By: #### BNP, HS TROP, CUBLD, CMP, PT, LACTIC, CBC #### [facility] [address] [phone] USAPotassium [Moles/volume] in Serum or PlasmaOrdered By: Madyson Galvez on 30-51-9028Iaulithzv [Moles/Vol]4.5 mmol/LNormal3.5-5.1 [facility] HospitalComment on above:Performed By: #### BNP, HS TROP, CUBLD, CMP, PT, LACTIC, CBC #### [facility] [address] [phone] USAProtein Test strip (U) [Mass/Vol]Ordered By: Madyson Galvez on 76-23-4422Gwoawnc (U) [Mass/Vol]NegativeNegativeWyandot Memorial HospitalProtein [Mass/volume] in Serum or PlasmaOrdered By: Madyson Galvez on 83-83-4039Pweiyga [Mass/Vol]7.5 g/dLNormal6.4-8.9[facility] HospitalComment on above:Performed By: #### BNP, HS TROP, CUBLD, CMP, PT, LACTIC, CBC #### [facility] [address] [place] [address] USAProthrombin time (PT)Ordered By: Madyson Galvez on 62-36-3409TQ Coag (PPP) [Time]19.1 sHigh9.0-12.9[facility] HospitalComment on above:A hematocrit value greater than 55% may lead to inaccurate results in coagulation testing. Patientshaving hematocrit values >55% require a special collection tube for coagulation studies. Please contact the laboratory at [phone] for redraw instructions.Result Comment: A hematocrit value greater than 55% may lead to inaccurate results in coagulation testing. Patients having hematocrit values >55% require a special collection tube for coagulation studies. Please contact the laboratory at [phone] for redraw instructions.Performed By: #### BNP, HS TROP, CUBLD, CMP, PT, LACTIC, CBC #### [facility] [address] [place] [address] USASerum globulin measurement by calculation (mass/volume) Ordered By: Madyson Galvez on 94-75-6397Noajlnkg (S) [Mass/Vol]3.7 g/dLNormal [facility] HospitalComment on above:Performed By: #### BNP, HS TROP, CUBLD, CMP, PT, LACTIC, CBC #### [facility] [address] [place] [address] USASerum or plasma albumin/globulin mass ratioOrdered By: Madyson Galvez on 18-65-9685Syhcpdq/Globulin [Mass ratio]1.0 {ratio}Normal [facility] HospitalComment on above:Performed By: #### BNP, HS TROP, CUBLD, CMP, PT, LACTIC, CBC #### [place] [address] USASerum or plasma anion gap determinationOrdered By: Madyson Galvez on 60-71-7851Epkgf gap [Moles/Vol]9.9 mmol/LNormal6.0-15.0[facility] HospitalComment on above:Performed By: #### BNP, HS TROP, CUBLD, CMP, PT, LACTIC, CBC #### [place] [address] USASodium [Moles/volume] in Serum or PlasmaOrdered By: Madyson Galvez on 22-12-9460Xrwjwu [Moles/Vol]134 mmol/LNjj556-853XqgegoipgWyandot Memorial HospitalComment on above:Performed By: #### BNP, HS TROP, CUBLD, CMP, PT, LACTIC, CBC #### [place] [address] USASpecific gravity Test strip (U) [Rel density]Ordered By: Madyson Galvez on 76-78-5617Kqgibfov gravity (U) [Rel density]1.0191.001-1.030 [facility] HospitalTroponin I High Sensitivityon 07-04-2025 Troponin I High Peertfzdglt6Thtlsw7-27Zyl [facility] Health Physician GroupComment on above:Result Comment: The Troponin units of report have been changed to meet the Chest Pain Accreditation requirement, element EC5.M1l2. Troponin units are changed from pg/ml to ng/L. Also, the decimal is removed and results are in whole numbers. PERFORMED BY: [place] [address] PATHOLOGIST MASTIC SPRAYER REYMNUDO POOLE M.D.Performed By: #### HS TROP #### [place] [address] USATroponin I High Mituohdmtje22Sijunf7-46Kzb [facility] Physician GroupComment on above:Result Comment: The Troponin units of report have been changed to meet the Chest Pain Accreditation requirement, element EC5.M1l2. Troponin units are changed from pg/ml to ng/L. Also, the decimal is removed and results are in whole numbers. PERFORMED BY: [place] [address] PATHOLOGIST MASTIC SPRAYER REYMUNDO POOLE M.D.Performed By: #### BNP, HS TROP, CUBLD, CMP, PT, LACTIC, CBC #### [facility] [address] [place] [address] USATroponin I.cardiac [Mass/volume] in Serum or Plasma by Detection limit <= 0.01 ng/mLOrdered By: Madyson Galvez on 38-31-7106Qszwszzj I.cardiac DL <= 0.01 ng/mL [Mass/Vol]9 ng/L0-[facility] Comment on above:The Troponin units of report have been changed to meet the Chest Pain Accreditation requirement, element EC5.M1l2. Troponin units are changed from pg/ml to ng/L. Also, the decimal is removed and results are in whole numbers.Urea nitrogen [Mass/volume] in Serum or PlasmaOrdered By: Madyson Galvez on 02-53-6997Pemt nitrogen [Mass/Vol]32 mg/dLWetzel County Hospital7-[facility] HospitalComment on above:Performed By: #### BNP, HS TROP, CUBLD, CMP, PT, LACTIC, CBC #### [facility] [address] [place] [address] USAUrinalysison 52-51-8022Njrtrolpk,UrineNegativeNormal NegativeThe [facility] Health Physician GroupComment on above:Order Comment: Name Collection Type:: Clean-Voided MidstreamPerformed By: #### BNP, HS TROP, CUBLD, CMP, PT, LACTIC, CBC #### [facility] [address] [place] [address] USAGlucose Ql (U)>=NormalNormalThe [facility] Comment on above:Order Comment: Name Collection Type:: Clean-Voided Midstream Performed By: #### BNP, HS TROP, CUBLD, CMP, PT, LACTIC, CBC #### [facility] [address] [place] [address] USANitrite,UrineNegativeNormalNegativeThe [facility] Health Physician GroupComment on above:Order Comment: Name Collection Type:: Clean-Voided MidstreamPerformed By: #### BNP, HS TROP, CUBLD, CMP, PT, LACTIC, CBC #### [place] [address] USAOccult Blood,UrineNegativeNormalNegativeThe [facility] Health Physician GroupComment on above:Order Comment: Name Collection Type:: Clean- Voided MidstreamResult Comment: PERFORMED BY: [place] [address] PATHOLOGIST MASTIC SPRAYER REYMUNDO POOLE M.D.Performed By: #### BNP, HS TROP, CUBLD, CMP, PT, LACTIC, CBC #### [place] [address] USAProtein,UrineNegativeNormalNegativeAdventhealth Apopka Physician GroupComment on above:Order Comment: Name Collection Type:: Clean-Voided MidstreamPerformed By: #### BNP, HS TROP, CUBLD, CMP, PT, LACTIC, CBC #### [place] [address] USASpecificy [place],Urine1.267Lkumvr7.001-1.030The [facility] Health Physician GroupComment on above:Order Comment: Name Collection Type:: Clean- Voided MidstreamPerformed By: #### BNP, HS TROP, CUBLD, CMP, PT, LACTIC, CBC #### [place] [address] USAUrobilinogen,UrineNormalNormalNormalThe [facility] Health Physician GroupComment on above:Order Comment: Name Collection Type:: Clean- Voided MidstreamPerformed By: #### BNP, HS TROP, CUBLD, CMP, PT, LACTIC, CBC #### [place] [address] USAUrine Cultureon 55-88-4150Vttrbsuh identified Cx Nom (U) <9,000 colonies/ml mixed bacterial skin contaminants 2 Days PERFORMED BY: [place] [address] PATHOLOGIST MASTIC SPRAYER REYMUNDO POOLE M.D.NormalThe [facility] Health Physician GroupComment on above: Performed By: #### BNP, HS TROP, CUBLD, CMP, PT, LACTIC, CBC #### [address] [address] USAUrobilinogen Test strip (U) [Mass/Vol]Ordered By: Madyson Galvez on 59-08-0892Kweixnxkhbim (U) [Mass/Vol]Normal mg/dLNormalWyandot Memorial HospitalX-ray reportOrdered By: Nicola Woods on 49-28-1878Rzpcg reportCINCINNATI [facility] Main [address] [address] XRay Report Signed Patient: Navin Christine SR MR#: [id number] : 1940 Acct:[id number] Age/Sex: 85 / M ADM Date: 5 Loc: ER Room: Type: [facility] ER Attending Dr: Copies to: Madyson Galvez MD~ Ordering Provider: Madyson Galvez MD Date of Service: 07/04/25 XR/XR chest 2V*: Recheck/Abnormal Lab/Rx XR chest 2V* 07/04/2025 11:40 AM SIGNS AND SYMPTOMS: ^Recheck/Abnormal Lab/Rx PROTOCOL: Frontal and lateral radiograph of the chest COMPARISON: None FINDINGS: The trachea is midline. The heart and mediastinal structures are within normal limits. Opacity is noted at the left lung base. The bony thorax is intact. Degenerative changes are noted in the thoracic spine and shoulders. XR/XR chest 2V* IMPRESSION: Airspace opacities noted in the left lung base. Impression dictated by: Nicola Woods M.D. 07/04/2025 11:45 AM Dictation Location: [facility]--23 Transcribed By: [facility] 07/04/25 1145 Dictated By: Nicola Woods II, MD 07/04/25 1144 Signed By: 07/04/25 1145 [facility] Work Phone: xr chest 2V*on 51-14-0511HU chest 2V*[facility] Main [place] [address] [place] [id number] XRay Report Signed Patient: Navin Christine SR MR#: [id number] : 1940 Acct:[id number] Age/Sex: 85 / M ADM Date: 07/04/25 Loc: ER Room: Type: [facility] ER Attending Dr: Copies to: Madyson Galvez MD Ordering Provider: Madyson Galvez MD Date of Service: 07/04/25 XR/XR chest 2V*: Recheck/Abnormal Lab/Rx XR chest 2V* 07/04/2025 11:40 AM SIGNS AND SYMPTOMS: Recheck/Abnormal Lab/Rx PROTOCOL: Frontal and lateral radiograph of the chest COMPARISON: None FINDINGS: The trachea is midline. The heart and mediastinal structures are within normal limits. Opacity is noted at the left lung base. The bony thorax is intact. Degenerative changes are noted in the thoracic spine and shoulders. XR/XR chest 2V* IMPRESSION: Airspace opacities noted in the left lung base. Impression dictated by: Nicola Woods M.D. 07/04/2025 11:45 AM Dictation Location: [place] [address] Transcribed By: [facility] 07/04/25 1145 Dictated By: Nicola Woods II, MD 07/04/25 1144 Signed By: 07/04/25 1145[facility] Physician GrouppH of Urine by Test stripOrdered By: Madyson Galvez on 98-84-2530yB (U)5.0 [pH]Normal5.0-9.0[facility] HospitalComment on above:Order Comment: Name Collection Type:: Clean- Voided MidstreamPerformed By: #### BNP, HS TROP, CUBLD, CMP, PT, LACTIC, CBC #### [facility] [address] [place] [address] USALab Reportson 28-77-5095Moo Reports [id number]#[id number]:127NormalFabien Brandenburg CenterTOOL CULTUREon 37-79-4520Gjhvnitgtdboz CultureFinal reportNoKettering Health Main CampusComment on above:Performed By: #### CXSTOOL #### [facility] [address] [place] [address] Dr. Itzel Epstein coli Shiga Toxin EIANegativeNormalNegativeMercy Health Anderson Hospital Comment on above:Performed By: #### CXSTOOL #### [facility] [address] [place] [address] Dr. Itzel Cano 1CommentCleveland ClinicComment on above:Result Comment: No Salmonella or Shigella recovered.Performed By: #### CXSTOOL #### [facility] [address] [place] [address] Dr. Itzel Cano Comment: No Campylobacter species isolated. Salmonella/Shigella ScreenFinal [facility] CenterComment on above:Performed By: #### CXSTOOL #### [facility] [address] [place] [address] Dr. Itzel Goodwin 63-50-9525Cmulrhorclm peptide B (Bld) [Mass/Vol]1615.0 pg/mLNormal<=1,800.0The [facility] Medical CenterComment on above:Performed By: #### OBIA #### [facility] [address] [place] [address] Dr. Itzel Cabrera AUTO DIFFon 31-99-4460EKGG #0.0 103/ulNormal0.0-0.1Mer[facility] Anderson HospitalComment on above:Performed By: #### CXSTOOL #### [facility] [address] [place] [address] Dr. Itzel Renesophils/100 WBC (Bld)0.5 %Normal0.2-2.0[facility] Comment on above:Performed By: #### CXSTOOL #### [facility] [address] [place] [address] Dr. Itzel Terrazas #0.1 103/ulNormal0.0-0.7The [facility] Medical CenterComkarmanos cancer center on above: Performed By: #### CXSTOOL #### [facility] [address] [place] [address] Dr. Itzel Epsteinosinophils/100 WBC (Bld)1.4 %Normal0.9-7.0The [facility] Comment on above:Performed By: #### CXSTOOL #### [facility] [address] [place] [address] Dr. Itzel Epsteinrythrocyte distribution width (RBC) [Ratio]16.1 %Critically high 11.0-15.0The [facility] Medical CenterComment on above:Performed By: #### CXSTOOL #### [facility] [address] [place] [address] Dr. Itzel LermaHematocrit (Bld) [Volume fraction]44.1 %Mnthgb31.0-54.0The [facility] Medical CenterComment on above:Performed By: #### CXSTOOL #### [facility] [address] [place] [address] Dr. Itzel LermaHemoglobin (Bld) [Mass/Vol]13.9 g/dLCritically low14.0-18.0The [facility] CenterComment on above:Performed By: #### CXSTOOL #### [facility] [address] [place] [address] Dr. Itzel Ortega #0.03 10e3/ulNormal0.00-0.03The [facility] Medical CenterComment on above:Performed By: #### CXSTOOL #### [facility] [address] [place] [address] Dr. Itzel Ortega %0.5 %Normal0.0-0.5The [facility] Medical CenterComment on above: Performed By: #### CXSTOOL #### [facility] [address] [place] [address] Dr. Itzel MartinezMPH #0.9 103/ulCritically low1.2-3.8The [facility] Comment on above:Performed By: #### CXSTOOL #### [facility] [address] [place] [address] Dr. Itzel Martinezmphocytes/100 WBC (Bld)14.4 %Critically low20.5-60.0The [facility] Medical CenterComment on above:Performed By: #### CXSTOOL #### [facility] [address] [place] [address] Dr. Itzel Valdez DIFF REQNONormalThe [facility] Medical CenterComment on above: Performed By: #### CXSTOOL #### [facility] [address] [place] [address] Dr. Itzel Maria (RBC) [Entitic mass]27.5 cxRmvbfv03.9-34.0The Milnor HospitalComment on above:Performed By: #### CXSTOOL #### [facility] [address] [place] [address] Dr. Itzel Maria (RBC) [Mass/Vol]31.5 g/mHNndoqh81.9-35.2The [facility] CenterComment on above:Performed By: #### CXSTOOL #### [facility] [address] [place] [address] Dr. Itzel Maria (RBC) [Entitic vol]87.3 jYYatviu05.0-94.0The [facility] Medical CenterComment on above:Performed By: #### CXSTOOL #### [facility] [address] [place] [address] Dr. Itzel Kirkland #0.7 103/ulNormal0.3-0.8The [facility] Medical CenterComment on above:Performed By: #### CXSTOOL #### [facility] [address] [place] [address] Dr. Itzel Mendozaocytes/100 WBC (Bld)10.6 %Normal1.7-12.0The [facility] Comment on above:Performed By: #### CXSTOOL #### [facility] [address] [place] [address] Dr. Itzel Watkins #4.6 103/ulNormal1.4-6.5The [facility] Medical CenterComment on above:Performed By: #### CXSTOOL #### [facility] [address] [place] [address] Dr. Itzel Hidalgoutrophils/100 WBC (Bld)72.6 %Tbvduf88.0-75.0The [facility] CenterComment on above:Performed By: #### CXSTOOL #### [facility] [address] [place] [address] Dr. Itzel Rosalet mean volume (Bld) [Entitic vol]10.3 fLNormal9.5-13.5The [facility] Medical CenterComment on above:Performed By: #### CXSTOOL #### [facility] [address] [place] [address] Dr. Itzel LermaPLT279 103/hgPsniub488-606Kqf [facility] CenterComment on above: Performed By: #### CXSTOOL #### [facility] [address] [place] [address] Dr. Itzel LermaRBC5.05 106/ulNormal4.70-6.10The [facility] CenterComment on above:Performed By: #### CXSTOOL #### [facility] [address] [place] [address] Dr. Itzel LermaWBC6.3 103/ulNormal4.0-11.0The [facility] CenterComment on above: Performed By: #### CXSTOOL #### [facility] [address] [place] [address] Dr. Itzel Torres CHEM 8 (BAS METB)on 37-81-3838Gryai gap [Moles/Vol]15.8 mmol/LNormalThe [facility] Medical CenterComment on above:Performed By: #### OBIA #### [facility] [address] [place] [address] Dr. Itzel LermaCalcium [Mass/Vol]9.1 mg/dLNormal8.5-10.1[facility] Comment on above:Performed By: #### OBIA #### [facility] [address] [place] [address] Dr. Itzel LermaChloride [Moles/Vol]102 mmol/GLoadkj60-963Kqd [facility] Comment on above:Performed By: #### OBIA #### [facility] [address] [place] [address] Dr. Yilan ChangCO2 [Moles/Vol]19.7 mmol/LCritically low21.0-32.0The [facility] CenterComment on above:Performed By: #### OBIA #### [facility] [address] [address] [address] Itzel LermaCreatinine [Mass/Vol]1.76 mg/dLCritically high0.70-1.30The [facility] Medical CenterComment on above:Performed By: #### OBIA #### [facility] [address] [id number] Dr. Robbins ChangEGFR-AF [id number] mL/min/1.99x0Xalgbtcarm low>=60The [facility] CenterComment on above:Performed By: #### OBIA #### [facility] [address] [place] [address] Dr. Robbins ChangEGFR-NON AF YWICGCTT43 mL/min/1.46h4Lijsenusgs low>=60The [facility] CenterComment on above:Performed By: #### OBIA #### [facility] [address] [place] [address] Dr. Itzel LermaGlucose [Mass/Vol]139 mg/dLCritically gwmx14-040Wnv [facility] CenterComment on above:Performed By: #### OBIA #### [facility] [address] [place] [address] Dr. Itzel LermaPotassium [Moles/Vol]4.5 mmol/LNormal3.5-5.1The [facility] Comment on above:Performed By: #### OBIA #### [facility] [address] [place] [address] Dr. Itzel LermaSodium [Moles/Vol]133 mmol/LCritically wpx110-754Mqo [facility] CenterComment on above:Performed By: #### OBIA #### [facility] [address] [place] [address] Dr. Itzel LermaUrea nitrogen [Mass/Vol]53.0 mg/dLCritically high7.0-18.0The [facility] CenterComment on above:Performed By: #### OBIA #### [facility] [address] [place] [address] Dr. Itzel LermaUrea nitrogen/Creatinine [Mass ratio]30.1 mg/mgNoKettering Health Main CampusComment on above:Performed By: #### OBIA #### [facility] [address] [place] [address] Dr. Itzel LermaPROTIMEon [id number] Coag (PPP) [Relative time]3.98 {INR} NormalThe [facility] CenterComkarmanos cancer center on above:Performed By: #### UA #### [facility] [address] [place] [address] Dr. Itzel Li GUIDELINESSEE BELOWCleveland ClinicComment on above:Result Comment: DESIRED INR: 2.0 - 3.0 CONDITIONS NOT LISTED BELOW 2.5 - 3.5 FOR PROSTHETIC HEART VALVE REPLACEMENT 2.5 - 3.5 RECURRENT THROMBOSIS Performed By: #### UA #### [facility] [address] [place] [address] Dr. Itzel LermaPT Coag (PPP) [Time]39.0 sCritically high9.0-11.6The [facility] on above:Performed By: #### UA #### [facility] [address] [place] [address] Dr. Itzel Irving [id number] Coag (Bld) [Time]44.8 sCritically high 22.3-36.2[facility] on above:Performed By: #### UA #### [facility] [address] [place] [address] Dr. Itzel LermaXR KUB 1 VIEWon [id number] KUB 1 VIEWEXAM: XR KUB 1 VIEW HISTORY: Nasogastric tube [...] Electronically authenticated by: WILSON JOHN Date: 2022-11-24 07:43[facility] AUTO DIFFon [id number] #0.0 103/ulNormal0.0-0.1The [facility] CenterComment on above:Performed By: #### OSMO #### [facility] [address] [address] [address] Itzel LermaBasophils/100 WBC (Bld)0.3 %Normal0.2-2.0The [facility] Comment on above:Performed By: #### OSMO #### [facility] [address] [place] [address] Dr. Itzel Terrazas #0.1 103/ulNormal0.0-0.7The [facility] CenterComment on above: Performed By: #### OSMO #### [facility] [address] [place] [address] Dr. Itzel Epsteinosinophils/100 WBC (Bld)1.6 %Normal0.9-7.0The [facility] Comment on above:Performed By: #### OSMO #### [facility] [address] [place] [address] Dr. Itzel Epsteinrythrocyte distribution width (RBC) [Ratio]15.9 %Critically high 11.0-15.0The [facility] CenterComment on above:Performed By: #### OSMO #### [facility] [address] [place] [address] Dr. Itzel LermaHematocrit (Bld) [Volume fraction]42.4 %Qwwnaw38.0-54.0The [facility] CenterComment on above:Performed By: #### OSMO #### [facility] [address] [place] [address] Dr. Itzel LermaHemoglobin (Bld) [Mass/Vol]13.1 g/dLCritically low14.0-18.0The [facility] CenterComment on above:Performed By: #### OSMO #### [facility] [address] [address] [address] Itzel Ortega #0.04 10e3/ulCritically high0.00-0.03The [facility] Comment on above:Performed By: #### OSMO #### [facility] [address] [address] [address] Itzel Ortega %0.7 %Critically high0.0-0.5The [facility] CenterComment on above:Performed By: #### OSMO #### [facility] [address] [address] [address] Itzel Hahn #0.9 103/ulCritically low1.2-3.8The [facility] Comment on above:Performed By: #### OSMO #### [facility] [address] [place] [address] Dr. Itzel Weirhocytes/100 WBC (Bld)15.6 %Critically low20.5-60.0The [facility] CenterComment on above:Performed By: #### OSMO #### [facility] [address] [place] [address] Dr. Itzel CondonUAL DIFF REQNONormalThe [facility] CenterComment on above: Performed By: #### OSMO #### [facility] [address] [place] [address] Dr. Itzel Maria (RBC) [Entitic mass]27.5 jkChvsqy15.9-34.0The [facility] CenterComment on above:Performed By: #### OSMO #### [facility] [address] [place] [address] Dr. Itzel Maria (RBC) [Mass/Vol]30.9 g/jVJnjmla87.9-35.2[facility] Anderson HospitalComment on above:Performed By: #### OSMO #### [facility] [address] [place] [address] Dr. Itzel Maria (RBC) [Entitic vol]88.9 kCBwedbz15.0-94.0The [facility] CenterComment on above:Performed By: #### OSMO #### [facility] [address] [place] [address] Dr. Itzel Kirkland #0.7 103/ulNormal0.3-0.8The Mil[facility] HospitalComment on above:Performed By: #### OSMO #### [facility] [address] [place] [address] Dr. Itzel Mendozaocytes/100 WBC (Bld)12.1 %Critically high1.7-12.0The [facility] HospitalComment on above:Performed By: #### OSMO #### [facility] [address] [place] [address] Dr. Itzel Watkins #4.0 103/ulNormal1.4-6.5The [facility] CenterComment on above:Performed By: #### OSMO #### [facility] [address] [place] [address] Dr. Itzel Hidalgoutrophils/100 WBC (Bld)69.7 %Zdoizt76.0-75.0The [facility] HospitalComment on above:Performed By: #### OSMO #### [facility] [address] [place] [address] Dr. Itzel Nguyen mean volume (Bld) [Entitic vol]10.6 fLNormal9.5-13.5The [facility] Medical CenterComment on above:Performed By: #### OSMO #### [facility] [address] [place] [address] Dr. Itzel LermaPLT200 103/tyBmfaal276-563Ahl [facility] CenterComment on above: Performed By: #### OSMO #### [facility] [address] [place] [address] Dr. Itzel LermaRBC4.77 106/ulNormal4.70-6.10The [facility] CenterComment on above:Performed By: #### OSMO #### [facility] [address] [place] [address] Dr. Itzel LermaWBC5.8 103/ulNormal4.0-11.0The [facility] CenterComment on above: Performed By: #### OSMO #### [facility] [address] [address] [address] Itzel Torres CHEM 8 (BAS METB)on 44-52-9054Ryfmf gap [Moles/Vol]14.3 mmol/LNormalThe [facility] Medical CenterComment on above:Performed By: #### OSMO #### [facility] [address] [address] [address] Itzel LermaCalcium [Mass/Vol]9.1 mg/dLNormal8.5-10.1The [facility] Comment on above:Performed By: #### OSMO #### [facility] [address] [place] [address] Dr. Itzel LermaChloride [Moles/Vol]102 mmol/NXddsec57-725Wfd [facility] Comment on above:Performed By: #### OSMO #### [facility] [address] [place] [address] Dr. Itzel LermaCO2 [Moles/Vol]21.4 mmol/CZrmogq25.0-32.0The [facility] Comment on above:Performed By: #### OSMO #### [facility] [address] [place] [address] Dr. Itzel LermaCreatinine [Mass/Vol]1.58 mg/dLCritically high0.70-1.30The [facility] CenterComment on above:Performed By: #### OSMO #### [facility] [address] [place] [address] Dr. Itzel EpsteinGFR-AF WNTWHEDS98 mL/min/1.94h2Gydzodjntt low>=60The [facility] CenterComment on above:Performed By: #### OSMO #### [facility] [address] [place] [address] Dr. Itzel EpsteinGFR-NON AF WCHDLHFX88 mL/min/1.76x3Heuobkivrm low>=60The [facility] CenterComment on above:Performed By: #### OSMO #### [facility] [address] [place] [address] Dr. Itzel LermaGlucose [Mass/Vol]125 mg/dLCritically tqqa06-761Nfw [facility] CenterComment on above:Performed By: #### OSMO #### [facility] [address] [address] [address] Itzel LermaPotassium [Moles/Vol]4.7 mmol/LNormal3.5-5.1The [facility] Comment on above:Performed By: #### OSMO #### [facility] [address] [address] [address] Itzel LermaSodium [Moles/Vol]133 mmol/LCritically rho479-764Gqx [facility] CenterComment on above:Performed By: #### OSMO #### [facility] [address] [place] [address] Dr. Itzel LermaUrea nitrogen [Mass/Vol]45.0 mg/dLCritically high7.0-18.0The [facility] CenterComment on above:Performed By: #### OSMO #### [facility] [address] [address] [address] Itzel Carbajal nitrogen/Creatinine [Mass ratio]28.5 mg/mgNoKettering Health Main CampusComment on above:Performed By: #### OSMO #### [facility] [address] [place] [address] Dr. Itzel ParhamIMEcely [id number] Coag (PPP) [Relative time]4.89 {INR} Critically highThe [facility] Medical CenterComment on above:Performed By: #### PT #### [facility] [address] [place] [address] Dr. Itzel Li GUIDELINESSEE BELOWCleveland ClinicComment on above:Result Comment: DESIRED INR: 2.0 - 3.0 CONDITIONS NOT LISTED BELOW 2.5 - 3.5 FOR PROSTHETIC HEART VALVE REPLACEMENT 2.5 - 3.5 RECURRENT THROMBOSIS Performed By: #### PT #### [facility] [address] [place] [address] Dr. Itzel LermaPT Coag (PPP) [Time]47.4 sCritically high9.0-11.6The [facility] CenterComment on above:Performed By: #### PT #### [facility] [address] [place] [address] Dr. Itzel Cabrera AUTO DIFFon [id number] #0.0 103/ulNormal0.0-0.1The [facility] CenterComment on above:Performed By: #### CBC #### [facility] [address] [place] [address] Dr. Itzel LermaBasophils/100 WBC (Bld)0.4 %Normal0.2-2.0The [facility] Comment on above:Performed By: #### CBC #### [facility] [address] [place] [address] Dr. Robbins ChangEKelle #0.1 103/ulNormal0.0-0.7The [facility] CenterComment on above: Performed By: #### CBC #### [facility] [address] [place] [address] Dr. Itzel Epsteinosinophils/100 WBC (Bld)1.4 %Normal0.9-7.0The [facility] Comment on above:Performed By: #### CBC #### [facility] [address] [place] [address] Dr. Itzel Espteinrythrocyte distribution width (RBC) [Ratio]16.3 %Critically high 11.0-15.0[facility] HospitalComment on above:Performed By: #### CBC #### [facility] [address] [place] [address] Dr. Itzel LermaHematocrit (Bld) [Volume fraction]41.1 %Critically low42.0-54.0 The [facility] CenterComment on above:Performed By: #### CBC #### [facility] [address] [place] [address] Dr. Itzel LermaHemoglobin (Bld) [Mass/Vol]12.5 g/dLCritically low14.0-18.0The [facility] CenterComment on above:Performed By: #### CBC #### [facility] [address] [address] [address] Itzel Ortega #0.03 10e3/ulNormal0.00-0.03The [facility] CenterComment on above:Performed By: #### CBC #### [facility] [address] [place] [address] Dr. Itzel Ortega %0.4 %Normal0.0-0.5The [facility] CenterComment on above: Performed By: #### CBC #### [facility] [address] [place] [address] Dr. Itzel Hahn #1.0 103/ulCritically low1.2-3.8The [facility] Comment on above:Performed By: #### CBC #### [facility] [address] [place] [address] Dr. Itzel Weirhocytes/100 WBC (Bld)14.3 %Critically low20.5-60.0The [facility] CenterComment on above:Performed By: #### CBC #### [facility] [address] [place] [address] Dr. Itzel CondonUAL DIFF REQNONormalThe [facility] CenterComment on above: Performed By: #### CBC #### [facility] [address] [place] [address] Dr. Itzel Centeno (RBC) [Entitic mass]27.4 itOljvfr49.9-34.0The [facility] CenterComment on above:Performed By: #### CBC #### [facility] [address] [place] [address] Dr. Itzel Maria (RBC) [Mass/Vol]30.4 g/wMLtamrj46.9-35.2The [facility] CenterComment on above:Performed By: #### CBC #### [facility] [address] [place] [address] Dr. Itzel Maria (RBC) [Entitic vol]89.9 dEHpaxii10.0-94.0The [facility] CenterComment on above:Performed By: #### CBC #### [facility] [address] [address] [address] Itzel Kirkland #0.8 103/ulNormal0.3-0.8The [facility] CenterComment on above:Performed By: #### CBC #### [facility] [address] [address] [address] Itzel Mendozaocytes/100 WBC (Bld)11.1 %Normal1.7-12.0The [facility] Comment on above:Performed By: #### CBC #### [facility] [address] [place] [address] Dr. Itzel Watkins #5.2 103/ulNormal1.4-6.5The [facility] CenterComment on above:Performed By: #### CBC #### [facility] [address] [place] [address] Dr. Itzel Hidalgoutrophils/100 WBC (Bld)72.4 %Dzduoa95.0-75.0The [facility] CenterComment on above:Performed By: #### CBC #### [facility] [address] [place] [address] Dr. Itzel Nguyen mean volume (Bld) [Entitic vol]10.1 fLNormal9.5-13.5The [facility] CenterComment on above:Performed By: #### CBC #### [facility] [address] [place] [address] Dr. Itzel LermaPLT210 103/kgQreabe780-948Zfk [facility] CenterComment on above: Performed By: #### CBC #### [facility] [address] [place] [address] Dr. Itzel LermaRBC4.57 106/ulCritically low4.70-6.10The [facility] CenterComment on above:Performed By: #### CBC #### [facility] [address] [place] [address] Dr. Itzel LermaWBC7.2 103/ulNormal4.0-11.0The [facility] CenterComment on above: Performed By: #### CBC #### [facility] [address] [address] [address] Itzel LermaPROF CHEM 8 (BAS METB)on 51-26-6810Qyper gap [Moles/Vol]13.8 mmol/LNormalThe [facility] CenterComment on above:Performed By: #### OSMO #### [facility] [address] [address] [address] Itzel LermaCalcium [Mass/Vol]8.7 mg/dLNormal8.5-10.1The [facility] Comment on above:Performed By: #### OSMO #### [facility] [address] [address] [address] Itzel LermaChloride [Moles/Vol]102 mmol/AEwbxoq48-301Sie [facility] Comment on above:Performed By: #### OSMO #### [facility] [address] [place] [address] Dr. Itzel LermaCO2 [Moles/Vol]20.6 mmol/LCritically low21.0-32.0The [facility] CenterComment on above:Performed By: #### OSMO #### [facility] [address] [address] [address] Itzel LermaCreatinine [Mass/Vol]1.49 mg/dLCritically high0.70-1.30The [facility] CenterComment on above:Performed By: #### OSMO #### [facility] [address] [address] [address] Itzel EpsteinGFR-AF FARDUSPH74 mL/min/1.34j6Qgfiacdnwt low>=60The [facility] CenterComment on above:Performed By: #### OSMO #### [facility] [address] [address] [address] Itzel EpsteinGFR-NON AF LPIPWUFU93 mL/min/1.68k3Prhhyfdqda low>=60The [facility] CenterComment on above:Performed By: #### OSMO #### [facility] [address] [address] [address] Itzel LermaGlucose [Mass/Vol]105 mg/hQUvolxg87-653Eun [facility] Comment on above:Performed By: #### OSMO #### [facility] [address] [place] [address] Dr. Itzel LermaPotassium [Moles/Vol]4.4 mmol/LNormal3.5-5.1The [facility] Comment on above:Performed By: #### OSMO #### [facility] [address] [place] [address] Dr. Itzel LermaSodium [Moles/Vol]132 mmol/LCritically qvl917-043Skw [facility] CenterComment on above:Performed By: #### OSMO #### [facility] [address] [place] [address] Dr. Itzel LermaUrea nitrogen [Mass/Vol]47.0 mg/dLCritically high7.0-18.0[facility] HospitalComment on above:Performed By: #### OSMO #### [facility] [address] [place] [address] Dr. Itzel Carbajal nitrogen/Creatinine [Mass ratio]31.5 mg/mgNoKettering Health Main CampusComment on above:Performed By: #### OSMO #### [facility] [address] [place] [address] Dr. Itzel Velez [id number] Coag (PPP) [Relative time]5.94 {INR} Critically highMercy Health Anderson HospitalComment on above:Performed By: #### CBC #### [facility] [address] [place] [address] Dr. Itzel Li GUIDELINESSEE BELOWCleveland ClinicComment on above:Result Comment: DESIRED INR: 2.0 - 3.0 CONDITIONS NOT LISTED BELOW 2.5 - 3.5 FOR PROSTHETIC HEART VALVE REPLACEMENT 2.5 - 3.5 RECURRENT THROMBOSIS Performed By: #### CBC #### [facility] [address] [place] [address] Dr. Itzel LermaPT Coag (PPP) [Time]56.9 sCritically high9.0-11.6The [facility] CenterComment on above:Performed By: #### CBC #### [facility] [address] [address] [address] Itzel LermaXR KUB 1 VIEWon [id number] KUB 1 VIEWEXAMINATION: XR KUB 1 VIEW HISTORY: Nasogastric tube [...] Electronically authenticated by: DORIAN YODER Date: 2022-11-22 08:06[facility] AUTO DIFFon [id number] #0.0 103/ulNormal0.0-0.1The [facility] CenterComment on above:Performed By: #### OBIA #### [facility] [address] [address] [address] Itzel LermaBasophils/100 WBC (Bld)0.1 %Critically low0.2-2.0The [facility] CenterComment on above:Performed By: #### OBIA #### [facility] [address] [place] [address] Dr. Itzel Terrazas #0.1 103/ulNormal0.0-0.7The [facility] CenterComment on above: Performed By: #### OBIA #### [facility] [address] [place] [address] Dr. Itzel Epsteinosinophils/100 WBC (Bld)1.5 %Normal0.9-7.0The [facility] Comment on above:Performed By: #### OBIA #### [facility] [address] [place] [address] Dr. Itzel Epsteinrythrocyte distribution width (RBC) [Ratio]16.3 %Critically high 11.0-15.0The [facility] CenterComment on above:Performed By: #### OBIA #### [facility] [address] [place] [address] Dr. Itzel LermaHematocrit (Bld) [Volume fraction]42.6 %Rilfif20.0-54.0The [facility] CenterComment on above:Performed By: #### OBIA #### [facility] [address] [place] [address] Dr. Itzel LermaHemoglobin (Bld) [Mass/Vol]13.3 g/dLCritically low14.0-18.0The [facility] CenterComment on above:Performed By: #### OBIA #### [facility] [address] [place] [address] Dr. Itzel Ortega #0.02 10e3/ulNormal0.00-0.03The [facility] CenterComment on above:Performed By: #### OBIA #### [facility] [address] [place] [address] Dr. Itzel Ortega %0.2 %Normal0.0-0.5The [facility] CenterComment on above: Performed By: #### OBIA #### [facility] [address] [place] [address] Dr. Itzel Hahn #1.0 103/ulCritically low1.2-3.8The [facility] Comment on above:Performed By: #### OBIA #### [facility] [address] [place] [address] Dr. Itzel Martinezmphocytes/100 WBC (Bld)12.5 %Critically low20.5-60.0The [facility] CenterComment on above:Performed By: #### OBIA #### [facility] [address] [place] [address] Dr. Itzel CondonUAL DIFF REQNONormalThe [facility] CenterComment on above: Performed By: #### OBIA #### [facility] [address] [place] [address] Dr. Itzel Centeno (RBC) [Entitic mass]27.8 wnMyncxg71.9-34.0The [facility] CenterComment on above:Performed By: #### OBIA #### [facility] [address] [address] [address] Itzel MariaHC (RBC) [Mass/Vol]31.2 g/wGRenfjn93.9-35.2The [facility] CenterComment on above:Performed By: #### OBIA #### [facility] [address] [place] [address] Dr. Itzel MariaV (RBC) [Entitic vol]88.9 iMYwzqza17.0-94.0The [facility] HospitalComment on above:Performed By: #### OBIA #### [facility] [address] [place] [address] Dr. Itzel Kirkland #0.9 103/ulCritically high0.3-0.8The [facility] Comment on above:Performed By: #### OBIA #### [facility] [address] [place] [address] Dr. Itzel Mendozaocytes/100 WBC (Bld)10.6 %Normal1.7-12.0The [facility] Comment on above:Performed By: #### OBIA #### [facility] [address] [place] [address] Dr. Itzel Watkins #6.1 103/ulNormal1.4-6.5The [facility] CenterComment on above:Performed By: #### OBIA #### [facility] [address] [place] [address] Dr. Itzel Hidalgoutrophils/100 WBC (Bld)75.1 %Critically high43.0-75.0The [facility] CenterComment on above:Performed By: #### OBIA #### [facility] [address] [place] [address] Dr. Itzel Rosalet mean volume (Bld) [Entitic vol]9.9 fLNormal9.5-13.5The [facility] CenterComment on above:Performed By: #### OBIA #### [facility] [address] [place] [address] Dr. Itzel LermaPLT239 103/omUmhozp226-719Vet [facility] CenterComment on above: Performed By: #### OBIA #### [facility] [address] [address] [address] Itzel LermaRBC4.79 106/ulNormal4.70-6.10The [facility] CenterComment on above:Performed By: #### OBIA #### [facility] [address] [place] [address] Dr. Itzel LermaWBC8.1 103/ulNormal4.0-11.0The [facility] CenterComment on above: Performed By: #### OBIA #### [facility] [address] [place] [address] Dr. Itzel BadilloF CHEM 8 (BAS METB)on 36-51-6370Cjmnt gap [Moles/Vol]15.4 mmol/LNormalThe [facility] CenterComment on above:Performed By: #### UA #### [facility] [address] [place] [address] Dr. Itzel LermaCalcium [Mass/Vol]8.9 mg/dLNormal8.5-10.1The [facility] Comment on above:Performed By: #### UA #### [facility] [address] [place] [address] Dr. Itzel LermaChloride [Moles/Vol]102 mmol/JGugrno13-043Wkg [facility] Comment on above:Performed By: #### UA #### [facility] [address] [place] [address] Dr. Itzel LermaCO2 [Moles/Vol]18.7 mmol/LCritically low21.0-32.0The [facility] CenterComment on above:Performed By: #### UA #### [facility] [address] [place] [address] Dr. Itzel LermaCreatinine [Mass/Vol]1.47 mg/dLCritically high0.70-1.30The [facility] CenterComment on above:Performed By: #### UA #### [facility] [address] [place] [address] Dr. Yilan ChangEGFR-AF OJBWEDKE45 mL/min/1.81m2Vpamnpbywg low>=60The [facility] CenterComment on above:Performed By: #### UA #### [facility] [address] [place] [address] Dr. Itzel EpsteinGFR-NON AF TUWURSLG24 mL/min/1.52z9Wxpuglwewc low>=60The [facility] CenterComment on above:Performed By: #### UA #### [facility] [address] [address] [address] Itzel LermaGlucose [Mass/Vol]103 mg/lVSvngnp62-051Iin [facility] Comment on above:Performed By: #### UA #### [facility] [address] [place] [address] Dr. Itzel LermaPotassium [Moles/Vol]4.1 mmol/LNormal3.5-5.1[facility] Comment on above:Performed By: #### UA #### [facility] [address] [address] [address] Itzel LermaSodium [Moles/Vol]132 mmol/LCritically xqu571-356BflMercy Health Anderson HospitalComment on above:Performed By: #### UA #### [facility] [address] [place] [address] Dr. Itzel LermaUrea nitrogen [Mass/Vol]47.0 mg/dLCritically high7.0-18.0[facility] HospitalComment on above:Performed By: #### UA #### [facility] [address] [place] [address] Dr. Itzel Carbajal nitrogen/Creatinine [Mass ratio]32.0 mg/mgNormalThe [facility] CenterComment on above:Performed By: #### UA #### [facility] [address] [place] [address] Dr. Itzel LermaXR KUB 1 VIEWon [id number] KUB 1 VIEWEXAMINATION: XR KUB 1 VIEW HISTORY: Nasogastric tube [...] Electronically authenticated by: DORIAN YODER Date: 2022-11-21 08:08NoWVUMedicine [facility] AUTO DIFFon [id number] #0.0 103/ulNormal0.0-0.1[facility] HospitalComment on above:Performed By: #### OSMO #### [facility] [address] [place] [address] Dr. Itzel LermaBasophils/100 WBC (Bld)0.3 %Normal0.2-2.0[facility] Comment on above:Performed By: #### OSMO #### [facility] [address] [place] [address] Dr. Itzel Terrazas #0.1 103/ulNormal0.0-0.7The [facility] CenterComment on above: Performed By: #### OSMO #### [facility] [address] [place] [address] Dr. Itzel Epsteinosinophils/100 WBC (Bld)0.8 %Critically low0.9-7.0[facility] HospitalComment on above:Performed By: #### OSMO #### [facility] [address] [place] [address] Dr. Itzel Epsteinrythrocyte distribution width (RBC) [Ratio]16.2 %Critically high 11.0-15.0[facility] HospitalComment on above:Performed By: #### OSMO #### [facility] [address] [place] [address] Dr. Itzel LermaHematocrit (Bld) [Volume fraction]46.2 %Zdsuii67.0-54.0[facility] HospitalComment on above:Performed By: #### OSMO #### [facility] [address] [place] [address] Dr. Itzel LermaHemoglobin (Bld) [Mass/Vol]14.2 g/cPTzjtxx46.0-18.0The [facility] CenterComment on above:Performed By: #### OSMO #### [facility] [address] [place] [address] Dr. Itzel Ortega #0.04 10e3/ulCritically high0.00-0.03The [facility] Comment on above:Performed By: #### OSMO #### [facility] [address] [place] [address] Dr. Itzel Ortega %0.3 %Normal0.0-0.5The [facility] CenterComment on above: Performed By: #### OSMO #### [facility] [address] [place] [address] Dr. Itzel Hahn #1.3 103/ulNormal1.2-3.8The [facility] CenterComment on above:Performed By: #### OSMO #### [facility] [address] [place] [address] Dr. Itzel Weirhocytes/100 WBC (Bld)10.4 %Critically low20.5-60.0The [facility] Medical CenterComment on above:Performed By: #### OSMO #### [facility] [address] [place] [address] Dr. Itzel CondonUAL DIFF REQNONormalThe [facility] CenterComment on above: Performed By: #### OSMO #### [facility] [address] [place] [address] Dr. Itzel Maria (RBC) [Entitic mass]27.6 txJcaxzn54.9-34.0The [facility] CenterComment on above:Performed By: #### OSMO #### [facility] [address] [place] [address] Dr. Itzel Maria (RBC) [Mass/Vol]30.7 g/vVJyphqn19.9-35.2The [facility] CenterComment on above:Performed By: #### OSMO #### [facility] [address] [address] [address] Itzel MariaV (RBC) [Entitic vol]89.9 yTLwijux85.0-94.0The [facility] CenterComment on above:Performed By: #### OSMO #### [facility] [address] [place] [address] [address] Itzel Kirkland #1.1 103/ulCritically high0.3-0.8The [facility] Comment on above:Performed By: #### OSMO #### [facility] [address] [place] [address] Dr. Itzel Mendozaocytes/100 WBC (Bld)9.5 %Normal1.7-12.0[facility] Comment on above:Performed By: #### OSMO #### [facility] [address] [place] [address] Dr. Itzel Watkins #9.5 103/ulCritically high1.4-6.5The [facility] Comment on above:Performed By: #### OSMO #### [facility] [address] [place] [address] Dr. Itzel Hidalgoutrophils/100 WBC (Bld)78.7 %Critically high43.0-75.0The [facility] Medical CenterComment on above:Performed By: #### OSMO #### [facility] [address] [place] [address] Dr. Itzel Rosalet mean volume (Bld) [Entitic vol]9.6 fLNormal9.5-13.5The [facility] Medical CenterComment on above:Performed By: #### OSMO #### [facility] [address] [place] [address] Dr. Itzel LermaPLT280 103/byZrhcbs424-770Rsg [facility] CenterComment on above: Performed By: #### OSMO #### [facility] [address] [place] [address] Dr. Itzel LermaRBC5.14 106/ulNormal4.70-6.10The [facility] Medical CenterComment on above:Performed By: #### OSMO #### [facility] [address] [place] [address] Dr. Itzel LermaWBC12.0 103/ulCritically high4.0-11.0The [facility] CenterComment on above:Performed By: #### OSMO #### [facility] [address] [place] [address] Dr. Itzel LermaLACTATE/LACTIC ACIDon 36-55-5719Qcjippo [Moles/Vol]0.9 mmol/L Normal0.4-1.9The [facility] CenterComment on above:Performed By: #### CBC #### [facility] [address] [place] [address] Dr. Itzel LermaPROF CHEM 8 (BAS METB)on 62-54-7610Okxtv gap [Moles/Vol]14.9 mmol/LNormalThe [facility] Medical CenterComment on above:Performed By: #### BMP #### [facility] [address] [place] [address] Dr. Itzel LermaCalcium [Mass/Vol]9.7 mg/dLNormal8.5-10.1The [facility] Comment on above:Performed By: #### BMP #### [facility] [address] [place] [address] Dr. Itzel LermaChloride [Moles/Vol]99 mmol/MLtmzqj70-557Ouf [facility] Comment on above:Performed By: #### BMP #### [facility] [address] [place] [address] Dr. Itzel LermaCO2 [Moles/Vol]22.7 mmol/OUtimgz79.0-32.0The [facility] Comment on above:Performed By: #### BMP #### [facility] [address] [place] [address] Dr. Itzel LermaCreatinine [Mass/Vol]2.07 mg/dLCritically high0.70-1.30The [facility] CenterComment on above:Performed By: #### BMP #### [facility] [address] [place] [address] Dr. Itzel EpsteinGFR-AF SPIHBWDE42 mL/min/1.72f4Bhmejrapvs low>=60The [facility] CenterComment on above:Performed By: #### BMP #### [facility] [address] [address] [address] Itzel EpsteinGFR-NON AF BAUMTCKN21 mL/min/1.82m1Xersjoyzps low>=60The [facility] CenterComment on above:Performed By: #### BMP #### [facility] [address] [address] [address] Itzel LermaGlucose [Mass/Vol]144 mg/dLCritically lodr92-549Yva [facility] CenterComment on above:Performed By: #### BMP #### [facility] [address] [place] [address] Dr. Itzel LermaPotassium [Moles/Vol]4.6 mmol/LNormal3.5-5.1The [facility] Comment on above:Performed By: #### BMP #### [facility] [address] [address] [address] Itzel LermaSodium [Moles/Vol]132 mmol/LCritically glz394-646Qjw [facility] CenterComment on above:Performed By: #### BMP #### [facility] [address] [place] [address] Dr. Itzel LermaUrea nitrogen [Mass/Vol]52.0 mg/dLCritically high7.0-18.0The [facility] CenterComment on above:Performed By: #### BMP #### [facility] [address] [place] [address] Dr. Itzel Carbajal nitrogen/Creatinine [Mass ratio]25.1 mg/mgNormalThe [facility] Medical CenterComment on above:Performed By: #### BMP #### [facility] [address] [place] [address] Dr. Itzel LermaPROTIMEon 43-82-9139OMZ Coag (PPP) [Relative time]2.54 {INR} NormalThe [facility] Medical CenterComment on above:Performed By: #### CBC #### [facility] [address] [place] [address] Dr. Itzel Li GUIDELINESSEE BELOWCleveland ClinicComment on above:Result Comment: DESIRED INR: 2.0 - 3.0 CONDITIONS NOT LISTED BELOW 2.5 - 3.5 FOR PROSTHETIC HEART VALVE REPLACEMENT 2.5 - 3.5 RECURRENT THROMBOSIS Performed By: #### CBC #### [facility] [address] [place] [address] Dr. Itzel LermaPT Coag (PPP) [Time]25.5 sCritically high9.0-11.6The [facility] CenterComment on above:Performed By: #### CBC #### [facility] [address] [place] [address] Dr. Itzel LermaXR KUB 1 VIEWon [id number] KUB 1 VIEWEXAMINATION: XR KUB 1 VIEW HISTORY: UNSPECIFIED ABDOMINAL [...] Electronically authenticated by: DORIAN YODER Date: 2022-11-20 10:[address] [place] [address] AUTO DIFFon [id number] #0.0 103/ulNormal0.0-0.1The [facility] CenterComment on above:Performed By: #### OSMO #### [facility] [address] [place] [address] Dr. Itzel LermaBasophils/100 WBC (Bld)0.2 %Normal0.2-2.0[facility] Comment on above:Performed By: #### OSMO #### [facility] [address] [place] [address] Dr. Itzel Terrazas #0.1 103/ulNormal0.0-0.7The [facility] Medical CenterComment on above: Performed By: #### OSMO #### [facility] [address] [place] [address] Dr. Itzel Epsteinosinophils/100 WBC (Bld)1.1 %Normal0.9-7.0[facility] Comment on above:Performed By: #### OSMO #### [facility] [address] [place] [address] Dr. Itzel Epsteinrythrocyte distribution width (RBC) [Ratio]16.3 %Critically high 11.0-15.0The [facility] Medical CenterComment on above:Performed By: #### OSMO #### [facility] [address] [place] [address] Dr. Itzel LermaHematocrit (Bld) [Volume fraction]47.9 %Jzgqtv47.0-54.0The [facility] CenterComment on above:Performed By: #### OSMO #### [facility] [address] [place] [address] Dr. Itzel LermaHemoglobin (Bld) [Mass/Vol]14.7 g/zSSvqgpv40.0-18.0[facility] HospitalComment on above:Performed By: #### OSMO #### [facility] [address] [place] [address] Dr. Itzel Ortega #0.04 10e3/ulCritically high0.00-0.03The [facility] Comment on above:Performed By: #### OSMO #### [facility] [address] [place] [address] Dr. Itzel Ortega %0.4 %Normal0.0-0.5The [facility] Medical CenterComment on above: Performed By: #### OSMO #### [facility] [address] [place] [address] Dr. Itzel Hahn #0.9 103/ulCritically low1.2-3.8The [facility] Comment on above:Performed By: #### OSMO #### [facility] [address] [place] [address] Dr. Itzel Martinezmphocytes/100 WBC (Bld)9.7 %Critically low20.5-60.0The [facility] Medical CenterComment on above:Performed By: #### OSMO #### [facility] [address] [place] [address] Dr. Itzel CondonUAL DIFF REQNONormalThe [facility] CenterComment on above: Performed By: #### OSMO #### [facility] [address] [place] [address] Dr. Itzel Maria (RBC) [Entitic mass]27.4 vxUvxhmm44.9-34.0The [facility] CenterComment on above:Performed By: #### OSMO #### [facility] [address] [place] [address] Dr. Itzel Maria (RBC) [Mass/Vol]30.7 g/wFIzkymw99.9-35.2The [facility] Medical CenterComment on above:Performed By: #### OSMO #### [facility] [address] [place] [address] Dr. Itzel Maria (RBC) [Entitic vol]89.2 pXCzuhop67.0-94.0The [facility] Medical CenterComment on above:Performed By: #### OSMO #### [facility] [address] [place] [address] Dr. Itzel Kirkland #0.7 103/ulNormal0.3-0.8The [facility] CenterComment on above:Performed By: #### OSMO #### [facility] [address] [place] [address] Dr. Itzel Mendozaocytes/100 WBC (Bld)7.9 %Normal1.7-12.0[facility] Comment on above:Performed By: #### OSMO #### [facility] [address] [place] [address] Dr. Itzel Watkins #7.6 103/ulCritically high1.4-6.5The [facility] Comment on above:Performed By: #### OSMO #### [facility] [address] [place] [address] Dr. Itzel Hidalgoutrophils/100 WBC (Bld)80.7 %Critically high43.0-75.0The [facility] CenterComment on above:Performed By: #### OSMO #### [facility] [address] [place] [address] Dr. Itzel LermaPlatelet mean volume (Bld) [Entitic vol]10.0 fLNormal9.5-13.5The [facility] Medical CenterComment on above:Performed By: #### OSMO #### [facility] [address] [place] [address] Dr. Itzel LermaPLT276 103/wiVdcldg262-939Zyy [facility] CenterComment on above: Performed By: #### OSMO #### [facility] [address] [place] [address] Dr. Itzel LermaRBC5.37 106/ulNormal4.70-6.10The [facility] CenterComment on above:Performed By: #### OSMO #### [facility] [address] [place] [address] Dr. Itzel LermaWBC9.4 103/ulNormal4.0-11.0The [facility] Hospitalment on above: Performed By: #### OSMO #### [facility] [address] [place] [address] Dr. Itzel LermaCT ABD/PELVIS WO CONon 06-14-1555HR ABD/PELVIS WO CONEXAMINATION: CT ABD/PELVIS WO CON, 11/19/2022 6:21 PM [...] Electronically authenticated by: SHAR TREJO Date: 2022-11-19 19:32NormUniversity Hospitals Samaritan Medical CenterCovid-19 PCR (CVDTBH)on [id number]-CoV-2 (COVID-19) RNA JUDY+probe Ql (Unsp spec)Not detectedNormalNOT DETECTEDMercy Health [facility] Hospital Comment on above:Result Comment: When diagnostic testing is negative, the [...] for this test is supported by the [place] of Health and Human Service's declaration that circumstances exist to justify the emergency use of in vitro diagnostics for the detection and/or diagnosis of the virus that causes COVID-19. This EUA will remain in effect for the duration of the COVID-19 declaration justifying emergency of IVDs, unless it is terminated or revoked by the FDA (after which the test may no longer be used).Performed By: #### UA #### [facility] [address] [place] [address] Dr. Itzel LermaPROKimberley CHEM 8 (BAS METB)on 91-67-1913Zstap gap [Moles/Vol]10.2 mmol/LNormalMercy Health Anderson HospitalComment on above:Performed By: #### UA #### [facility] [address] [address] [address] Itzel LermaCalcium [Mass/Vol]9.8 mg/dLNormal8.5-10.1The [facility] Comment on above:Performed By: #### UA #### [facility] [address] [address] [address] Itzel LermaChloride [Moles/Vol]99 mmol/DVwetjo19-126Tan [facility] Comment on above:Performed By: #### UA #### [facility] [address] [address] [address] Itzel LermaCO2 [Moles/Vol]27.4 mmol/UVlxoqw38.0-32.0The [facility] Comment on above:Performed By: #### UA #### [facility] [address] [address] [address] Itzel LermaCreatinine [Mass/Vol]2.02 mg/dLCritically high0.70-1.30The [facility] CenterComment on above:Performed By: #### UA #### [facility] [address] [address] [address] Robbins ChangEGFR-AF EDLWCAVH33 mL/min/1.50c4Yxakdehdgp low>=60The [facility] CenterComment on above:Performed By: #### UA #### [facility] [address] [address] [address] Itzel EpsteinGFR-NON AF UVYSVMLP43 mL/min/1.38d0Eazxxeywja low>=60The [facility] CenterComment on above:Performed By: #### UA #### [facility] [address] [address] [address] Itzel LermaGlucose [Mass/Vol]148 mg/dLCritically pgkp69-184Ytk [facility] CenterComment on above:Performed By: #### UA #### [facility] [address] [address] [address] Itzel LermaPotassium [Moles/Vol]5.6 mmol/LCritically high3.5-5.1The [facility] CenterComment on above:Performed By: #### UA #### [facility] [address] [address] [address] Itzel LermaSodium [Moles/Vol]131 mmol/LCritically vzp624-449Xta [facility] CenterComment on above:Performed By: #### UA #### [facility] [address] [address] [address] Itzel LermaUrea nitrogen [Mass/Vol]44.0 mg/dLCritically high7.0-18.0The [facility] CenterComment on above:Performed By: #### UA #### [facility] [address] [place] [address] Dr. Itzel Carbajal nitrogen/Creatinine [Mass ratio]21.8 mg/mgNoKettering Health Main CampusComment on above:Performed By: #### UA #### [facility] [address] [place] [address] Dr. Itzel LermaXR KUB 1 VIEWon [id number] KUB 1 VIEWEXAM: XR KUB 1 VIEW HISTORY: Nasogastric tube in situ COMPARISON: None. TECHNIQUE: Single view FINDINGS: IMPRESSION: Single limited view of the abdomen. Enteric tube tip is approximately 6.2 cm below the diaphragm. Air-filled loops of large and small bowel Electronically authenticated by: SHAHZAD VILLALPANDO Date: 2022-11-19 20:24[facility] ClinicOSMOLALITYon 17-42-0804Crgscbvwij [Osmolality]274 mosm/kg Critically umq244-229Orc [facility] CenterComment on above:Performed By: #### OSMO #### [facility] [address] [place] [address] Dr. Itzel LermaCBC AUTO DIFFon [id number] #0.0 103/ulNormal0.0-0.1The [facility] CenterComkarmanos cancer center on above:Performed By: #### OBIA #### [facility] [address] [place] [address] Dr. Itzel LermaBasophils/100 WBC (Bld)0.3 %Normal0.2-2.0The [facility] Comment on above:Performed By: #### OBIA #### [facility] [address] [place] [address] Dr. Itzel Terrazas #0.1 103/ulNormal0.0-0.7The [facility] CenterComment on above: Performed By: #### OBIA #### [facility] [address] [place] [address] Dr. Itzel Epsteinosinophils/100 WBC (Bld)0.7 %Critically low0.9-7.0The [facility] CenterComment on above:Performed By: #### OBIA #### [facility] [address] [place] [address] Dr. Itzel Praterthrocyte distribution width (RBC) [Ratio]14.6 %Heaebt84.0-15.0 The [facility] CenterComment on above:Performed By: #### OBIA #### [facility] [address] [place] [address] Dr. Itzel LermaHematocrit (Bld) [Volume fraction]35.2 %Critically low42.0-54.0 [facility] HospitalComment on above:Performed By: #### OBIA #### [facility] [address] [place] [address] Dr. Itzel LermaHemoglobin (Bld) [Mass/Vol]11.4 g/dLCritically low14.0-18.0The [facility] CenterComment on above:Performed By: #### OBIA #### [facility] [address] [place] [address] Dr. Itzel Ortega #0.04 10e3/ulCritically high0.00-0.03The [facility] Comment on above:Performed By: #### OBIA #### [facility] [address] [place] [address] Dr. Itzel Ortega %0.4 %Normal0.0-0.5ThMcCullough-Hyde Memorial HospitalComment on above: Performed By: #### OBIA #### [facility] [address] [place] [address] Dr. Itzel Hahn #0.9 103/ulCritically low1.2-3.8ThMcCullough-Hyde Memorial Hospital Comment on above:Performed By: #### OBIA #### [facility] [address] [place] [address] Dr. Itzel Martinezmphocytes/100 WBC (Bld)10.4 %Critically low20.5-60.0[facility] HospitalComment on above:Performed By: #### OBIA #### [facility] [address] [place] [address] Dr. Itzel Valdez DIFF REQNONormalThe [facility] CenterComment on above: Performed By: #### OBIA #### [facility] [address] [place] [address] Dr. Itzel Maria (RBC) [Entitic mass]29.1 omAihzya12.9-34.0[facility] HospitalComment on above:Performed By: #### OBIA #### [facility] [address] [place] [address] Dr. Itzel Maria (RBC) [Mass/Vol]32.4 g/uXKuxyuy22.9-35.2The [facility] CenterComment on above:Performed By: #### OBIA #### [facility] [address] [place] [address] Dr. Itzel Maria (RBC) [Entitic vol]89.8 qATuqrus27.0-94.0The [facility] CenterComment on above:Performed By: #### OBIA #### [facility] [address] [place] [address] Dr. Itzel Kirkland #1.0 103/ulCritically high0.3-0.8ThMcCullough-Hyde Memorial Hospital Comment on above:Performed By: #### OBIA #### [facility] [address] [place] [address] Dr. Itzel Mendozaocytes/100 WBC (Bld)11.1 %Normal1.7-12.0[facility] Comment on above:Performed By: #### OBIA #### [facility] [address] [place] [address] Dr. Itzel Watkins #6.9 103/ulCritically high1.4-6.5The [facility] Comment on above:Performed By: #### OBIA #### [facility] [address] [place] [address] Dr. Itzel Hidalgoutrophils/100 WBC (Bld)77.1 %Critically high43.0-75.0The [facility] CenterComment on above:Performed By: #### OBIA #### [facility] [address] [place] [address] Dr. Itzel LermaPlatelet mean volume (Bld) [Entitic vol]9.5 fLNormal9.5-13.5The [facility] CenterComment on above:Performed By: #### OBIA #### [facility] [address] [place] [address] Dr. Itzel LermaPLT166 103/oxDjxizm769-907Lxj [facility] CenterComment on above: Performed By: #### OBIA #### [facility] [address] [place] [address] Dr. Itzel LermaRBC3.92 106/ulCritically low4.70-6.10The [facility] CenterComment on above:Performed By: #### OBIA #### [facility] [address] [place] [address] Dr. Itzel LermaWBC9.0 103/ulNormal4.0-11.0The [facility] CenterComment on above: Performed By: #### OBIA #### [facility] [address] [place] [address] Dr. Itzel West PYLORI ANTIBODY IGGon 07-11-2022H. PYLORI IGG ABS1.90 Index ValueCritically high0.00-0.79The [facility] CenterComment on above:Result Comment: Negative <0.80 Equivocal 0.80 - 0.89 Positive >0.89Performed By: #### HPYLLC #### [facility] [address] [place] [address] Dr. Itzel LermaOCC BLD IMMUNOASSAYon 66-18-5553XYLBOB BLOODPositiveAbnormal NEGATIVEThe [facility] CenterComment on above:Performed By: #### OBIA #### [facility] [address] [place] [address] Dr. Itzel LermaOSMOLALITY URINEon 07-26-9826Mdvxxevkoh, Ykryg705 mOsmol/kgNormal The [facility] CenterComment on above:Result Comment: 24 hr : 300 - 900 Random: 50 - 1400 After 12hr fluid restriction: >850Performed By: #### OBIA #### [facility] [address] [place] [address] Dr. Itzel LermaPROF 14(COMP METB)on 52-36-6421Etxylev [Mass/Vol]2.6 g/dL Critically low3.4-5.0The [facility] CenterComment on above:Performed By: #### OSMO #### [facility] [address] [place] [address] Dr. Itzel LermaAlbumin/Globulin [Mass ratio]0.6 {ratio}NormalThe Southview Medical CenterComment on above:Performed By: #### OSMO #### [facility] [address] [place] [address] Dr. Itzel Matt [Catalytic activity/Vol]59 U/TYxkhiu54-368Zdu [facility] CenterComment on above:Performed By: #### OSMO #### [facility] [address] [place] [address] Dr. Itzel Finch [Catalytic activity/Vol]10 U/LCritically cok02-08Vxr [facility] CenterComment on above:Performed By: #### OSMO #### [facility] [address] [place] [address] Dr. Itzel Kelley gap [Moles/Vol]14.3 mmol/LNormalThe [facility] Comment on above:Performed By: #### OSMO #### [facility] [address] [place] [address] Dr. Itzel Geiger [Catalytic activity/Vol]12 U/LCritically cos21-13Pej Milnor HospitalComment on above:Performed By: #### OSMO #### [facility] [address] [address] [address] Itzel LermaBilirubin [Mass/Vol]0.3 mg/dLNormal0.2-1.0The [facility] Comment on above:Performed By: #### OSMO #### [facility] [address] [place] [address] Dr. Itzel LermaCalcium [Mass/Vol]7.5 mg/dLCritically low8.5-10.1The [facility] CenterComment on above:Performed By: #### OSMO #### [facility] [address] [place] [address] Dr. Itzel LermaChloride [Moles/Vol]116 mmol/LCritically pjpm89-965Qap [facility] CenterComment on above:Performed By: #### OSMO #### [facility] [address] [place] [address] Dr. Itzel LermaCO2 [Moles/Vol]14.3 mmol/LCritically low21.0-32.0The [facility] CenterComment on above:Performed By: #### OSMO #### [facility] [address] [place] [address] Dr. Itzle LermaCreatinine [Mass/Vol]1.38 mg/dLCritically high0.70-1.30The [facility] CenterComment on above:Performed By: #### OSMO #### [facility] [address] [place] [address] Dr. Itzel EpsteinGFR-AF [id number] mL/min/1.47i8Btmueh>=60[facility] Comment on above:Performed By: #### OSMO #### [facility] [address] [place] [address] Dr. Itzel EpsteinGFR-NON AF BMTZMWJO22 mL/min/1.14l9Tabfswrmml low>=60The [facility] CenterComment on above:Performed By: #### OSMO #### [facility] [address] [place] [address] Dr. Itzel LermaGlobulin (S) [Mass/Vol]4.1 g/dLNormUniversity Hospitals Samaritan Medical CenterComment on above:Performed By: #### OSMO #### [facility] [address] [place] [address] Dr. Itzel LermaGlucose [Mass/Vol]137 mg/dLCritically msue09-163Ghr [facility] CenterComment on above:Performed By: #### OSMO #### [facility] [address] [place] [address] Dr. Itzel LermaPotassium [Moles/Vol]3.6 mmol/LNormal3.5-5.1The [facility] Comment on above:Performed By: #### OSMO #### [facility] [address] [place] [address] Dr. Itzel LermaProtein [Mass/Vol]6.7 g/dLNormal6.4-8.2[facility] Comment on above:Performed By: #### OSMO #### [facility] [address] [place] [address] Dr. Itzel LermaSodium [Moles/Vol]141 mmol/WYshaoi390-071Nxz [facility] Comment on above:Performed By: #### OSMO #### [facility] [address] [place] [address] Dr. Itzel LermaUrea nitrogen [Mass/Vol]25.0 mg/dLCritically high7.0-18.0The [facility] CenterComment on above:Performed By: #### OSMO #### [facility] [address] [place] [address] Dr. Itzel LermaUrea nitrogen/Creatinine [Mass ratio]18.1 mg/mgNoKettering Health Main CampusComment on above:Performed By: #### OSMO #### [facility] [address] [place] [address] Dr. Itzel Velez 14-01-2731KMS Coag (PPP) [Relative time]5.21 {INR} Critically highThe [facility] Medical CenterComment on above:Performed By: #### OSMO #### [facility] [address] [place] [address] Dr. Itzel Li [facility]ATIONE [facility] Medical CenterComment on above:Result Comment: DESIRED INR: 2.0 - 3.0 CONDITIONS NOT LISTED BELOW 2.5 - 3.5 FOR PROSTHETIC HEART VALVE REPLACEMENT 2.5 - 3.5 RECURRENT THROMBOSIS Performed By: #### OSMO #### [facility] [address] [place] [address] Dr. Itzel LermaPT Coag (PPP) [Time]50.5 sCritically high9.0-11.6The [facility] Medical CenterComment on above:Performed By: #### OSMO #### [facility] [address] [place] [address] Dr. Itzel Cabrera AUTO DIFFon [id number] #0.0 103/ulNormal0.0-0.1The [facility] CenterComment on above:Performed By: #### UA #### [facility] [address] [place] [address] Dr. Itzel LermaBasophils/100 WBC (Bld)0.2 %Normal0.2-2.0[facility] Comment on above:Performed By: #### UA #### [facility] [address] [place] [address] Dr. Itzel Terrazas #0.1 103/ulNormal0.0-0.7ThMcCullough-Hyde Memorial HospitalComment on above: Performed By: #### UA #### [facility] [address] [place] [address] Dr. Itzel Epsteinosinophils/100 WBC (Bld)0.4 %Critically low0.9-7.0The [facility] Medical CenterComment on above:Performed By: #### UA #### [facility] [address] [place] [address] Dr. Itzel Epsteinrythrocyte distribution width (RBC) [Ratio]14.3 %Kxpzal56.0-15.0 The [facility] Medical CenterComment on above:Performed By: #### UA #### [facility] [address] [place] [address] Dr. Itzel LermaHematocrit (Bld) [Volume fraction]38.2 %Critically low42.0-54.0 The [facility] Medical CenterComment on above:Performed By: #### UA #### [facility] [address] [place] [address] Dr. Itzel LermaHemoglobin (Bld) [Mass/Vol]12.5 g/dLCritically low14.0-18.0The [facility] Medical CenterComment on above:Performed By: #### UA #### [facility] [address] [place] [address] Dr. Itzel Ortega #0.11 10e3/ulCritically high0.00-0.03The [facility] Comment on above:Performed By: #### UA #### [facility] [address] [place] [address] Dr. Itzel Ortega %0.7 %Critically high0.0-0.5The [facility] Medical CenterComment on above:Performed By: #### UA #### [facility] [address] [place] [address] Dr. Itzel Hahn #1.1 103/ulCritically low1.2-3.8The [facility] Comment on above:Performed By: #### UA #### [facility] [address] [place] [address] Dr. Itzel Weirhocytes/100 WBC (Bld)6.9 %Critically low20.5-60.0The [facility] Medical CenterComment on above:Performed By: #### UA #### [facility] [address] [place] [address] Dr. Itzel CondonUAL DIFF REQNONormalThe [facility] CenterComment on above: Performed By: #### UA #### [facility] [address] [place] [address] Dr. Itzel Centeno (RBC) [Entitic mass]29.6 voIxbuev05.9-34.0The [facility] CenterComment on above:Performed By: #### UA #### [facility] [address] [place] [address] Dr. Itzel MariaHC (RBC) [Mass/Vol]32.7 g/gISmlnxq86.9-35.2The [facility] CenterComment on above:Performed By: #### UA #### [facility] [address] [place] [address] Dr. Itzel Enciso (RBC) [Entitic vol]90.3 zQLqlkfc54.0-94.0The [facility] Medical CenterComment on above:Performed By: #### UA #### [facility] [address] [address] [address] Itzel Kirkland #1.2 103/ulCritically high0.3-0.8The [facility] Comment on above:Performed By: #### UA #### [facility] [address] [place] [address] Dr. Itzel Mendozaocytes/100 WBC (Bld)8.1 %Normal1.7-12.0[facility] Comment on above:Performed By: #### UA #### [facility] [address] [place] [address] Dr. Itzel Watkins #12.8 103/ulCritically high1.4-6.5The [facility] Comment on above:Performed By: #### UA #### [facility] [address] [place] [address] Dr. Itzel Hidalgoutrophils/100 WBC (Bld)83.7 %Critically high43.0-75.0The [facility] Medical CenterComment on above:Performed By: #### UA #### [facility] [address] [place] [address] Dr. Itzel Nguyen mean volume (Bld) [Entitic vol]9.5 fLNormal9.5-13.5The [facility] Medical CenterComment on above:Performed By: #### UA #### [facility] [address] [place] [address] Dr. Itzel LermaPLT197 103/jhFhqlxe481-517Mow [facility] CenterComment on above: Performed By: #### UA #### [facility] [address] [place] [address] Dr. Itzel LermaRBC4.23 106/ulCritically low4.70-6.10The [facility] Medical CenterComment on above:Performed By: #### UA #### [facility] [address] [address] [address] Itzel LermaWBC15.3 103/ulCritically high4.0-11.0The [facility] CenterComment on above:Performed By: #### UA #### [facility] [address] [address] [address] Itzel LermaCT ABD/PELVIS WO CONon [id number] ABD/PELVIS WO CONEXAMINATION: CT ABD/PELVIS WO CON, 07/09/2022 8:37 PM [...] Electronically authenticated by: DORIAN SOARES Date: 2022-07-09 22:32NoKettering Health Main CampusCovid-19 PCR (CVDTBH)on [id number]-CoV-2 (COVID-19) RNA JUDY+probe Ql (Unsp spec)Not detectedNormalNOT DETECTEDThe [facility] Comment on above:Result Comment: When diagnostic testing is negative, the [...] for this test is supported by the [employer] Manager of Health and Human Service's declaration that circumstances exist to justify the emergency use of in vitro diagnostics for the detection and/or diagnosis of the virus that causes COVID-19. This EUA will remain in effect for the duration of the COVID-19 declaration justifying emergency of IVDs, unless it is terminated or revoked by the FDA (after which the test may no longer be used).Performed By: #### OBIA #### [facility] [address] [place] [address] Dr. Itzel Chauhan PANEL (PCR)on [id number] F 40/41Not detectedNormal NOT DETECTEDMercy Health Anderson HospitalComment on above:Performed By: #### OBIA #### [facility] [address] [place] [address] Dr. Yilan ChangAstrovirusNot detectedNormalNOT DETECTEDThe [facility] Comment on above:Performed By: #### OBIA #### [facility] [address] [address] [address] Itzel Moreno. Diff toxin A/BNot detectedNormalNOT DETECTEDThe [facility] CenterComment on above:Performed By: #### OBIA #### [facility] [address] [address] [address] Itzel De GuzmanpylobacterNot detectedNormalNOT DETECTEDThe [facility] Comment on above:Performed By: #### OBIA #### [facility] [address] [address] [address] Itzel LermaCryptosporidiumNot detectedNormalNOT DETECTEDThe [facility] CenterComment on above:Performed By: #### OBIA #### [facility] [address] [address] [address] Itzel Purdy. CayetanensisNot detectedNormalNOT DETECTEDThe [facility] CenterComment on above:Performed By: #### OBIA #### [facility] [address] [address] [address] Itzel May Coli J014Snv ApplicableNormalNot ApplicableThe [facility] CenterComkarmanos cancer center on above:Performed By: #### OBIA #### [facility] [address] [address] [address] Itzel May histolyticaNot detectedNormalNOT DETECTEDThe [facility] Comment on above:Performed By: #### OBIA #### [facility] [address] [address] [address] Itzel EpsteinAECNot detectedNormalNOT DETECTEDThe [facility] CenterComment on above:Performed By: #### OBIA #### [facility] [address] [address] [address] Itzel EpsteinIECNot detectedNormalNOT DETECTEDThe [facility] CenterComment on above:Performed By: #### OBIA #### [facility] [address] [address] [address] Itzel EpsteinPECNot detectedNormalNOT DETECTEDThe [facility] CenterComment on above:Performed By: #### OBIA #### [facility] [address] [address] [address] Itzel Arellano detectedNormalNOT DETECTEDThe [facility] CenterComkarmanos cancer center on above:Performed By: #### OBIA #### [facility] [address] [address] [address] Itzel TayliMychal detectedNormalNOT DETECTEDMercy Health [facility] Hospital Comment on above:Performed By: #### OBIA #### [facility] [address] [address] [address] Itzel FELIXShelby Memorial HospitalComment on above:Performed By: #### OBIA #### [facility] [address] [place] [address] Dr. Itzel Alvarez TAVO HEADERGI PANEL [facility] Comment on above:Performed By: #### OBIA #### [facility] [address] [place] [address] Dr. Itzel Guerrero ECOLIGI PANEL DIARRHEAGENIC E.COLI / SHIGELLACleveland ClinicComment on above:Performed By: #### OBIA #### [facility] [address] [place] [address] Dr. Itzel Guerrero INFOSEHenry County HospitalComment on above: Result Comment: EAEC- Enteroaggregative E. Coli EPEC- Enteropathogenic E. Coli ETEC- Enterotoxigenic E. Coli lt/st STEC- Shigella-like toxin-producing E. Coli stx1/stx2 EIEC- Shigella/Enteroinvasive E. ColiPerformed By: #### OBIA #### [facility] [address] [place] [address] Dr. Itzel Guerrero PARASITESGI PANEL [facility] Comment on above:Performed By: #### OBIA #### [facility] [address] [place] [address] Dr. Itzel Guerrero VIRUSGI PANEL VIRUSESCleveland ClinicComment on above:Performed By: #### OBIA #### [facility] [address] [address] [address] Itzel Cainrovirus GI/GIINot detectedNormalNOT DETECTEDThe [facility] CenterComkarmanos cancer center on above:Performed By: #### OBIA #### [facility] [address] [address] [address] Itzel Mills ShigelloidesNot detectedNormalNOT DETECTEDThe [facility] CenterComment on above:Performed By: #### OBIA #### [facility] [address] [address] [address] Itzel Villagranavirus ANot detectedNormalNOT DETECTEDThe [facility] Comment on above:Performed By: #### OBIA #### [facility] [address] [place] [address] Dr. Itzel LermaSalmonellaNot detectedNormalNOT DETECTEDThe [facility] Comment on above:Performed By: #### OBIA #### [facility] [address] [address] [address] Itzel LermaSapovirusNot detectedNormalNOT DETECTEDThe [facility] Comment on above:Performed By: #### OBIA #### [facility] [address] [address] [address] Itzel LermaSTECNot detectedNormalNOT DETECTEDThe [facility] CenterComkarmanos cancer center on above:Performed By: #### OBIA #### [facility] [address] [address] [address] Itzel ReabrioNot detectedNormalNOT DETECTEDThe [facility] CenterComment on above:Performed By: #### OBIA #### [facility] [address] [address] [address] Itzel Tylerio CholeraNot detectedNormalNOT DETECTEDThe [facility] Comment on above:Performed By: #### OBIA #### [facility] [address] [address] [address] Itzel Henao. EnterocoliticaNot detectedNormalNOT DETECTEDThe [facility] CenterComment on above:Performed By: #### OBIA #### [facility] [address] [address] [address] Itzel Torres CHEM 8 (BAS METB)on [id number] gap [Moles/Vol]12.6 mmol/LNormalThe [facility] CenterComment on above:Performed By: #### OSMO #### [facility] [address] [place] [address] Dr. Itzel LermaCalcium [Mass/Vol]7.7 mg/dLCritically low8.5-10.1The [facility]nor HospitalComment on above:Performed By: #### OSMO #### [facility] [address] [place] [address] Dr. Itzel LermaChloride [Moles/Vol]103 mmol/VRehpcv19-075Ebb [facility] Comment on above:Performed By: #### OSMO #### [facility] [address] [place] [address] Dr. Itzel LermaCO2 [Moles/Vol]16.4 mmol/LCritically low21.0-32.0The [facility] CenterComment on above:Performed By: #### OSMO #### [facility] [address] [place] [address] Dr. Itzel LermaCreatinine [Mass/Vol]2.03 mg/dLCritically high0.70-1.30The [facility] CenterComment on above:Performed By: #### OSMO #### [facility] [address] [place] [address] Dr. Itzel EpsteinGFR-AF BGHWMXMH77 mL/min/1.60y1Tbglunosis low>=60The [facility] CenterComment on above:Performed By: #### OSMO #### [facility] [address] [place] [address] Dr. Itzel EpsteinGFR-NON AF TQJPXJGD25 mL/min/1.67o8Ljkrcnqeou low>=60The [facility] CenterComment on above:Performed By: #### OSMO #### [facility] [address] [place] [address] Dr. Itzel LermaGlucose [Mass/Vol]148 mg/dLCritically cqyt87-389CzzMercy Health Anderson HospitalComment on above:Performed By: #### OSMO #### [facility] [address] [address] [address] Itzel LermaPotassium [Moles/Vol]4.0 mmol/LNormal3.5-5.1The [facility] Comment on above:Performed By: #### OSMO #### [facility] [address] [address] [address] Itzel LermaSodium [Moles/Vol]128 mmol/LCritically jqi350-592Iyw [facility] CenterComment on above:Performed By: #### OSMO #### [facility] [address] [place] [address] Dr. Itzel LermaUrea nitrogen [Mass/Vol]50.0 mg/dLCritically high7.0-18.0The [facility] CenterComment on above:Performed By: #### OSMO #### [facility] [address] [place] [address] Dr. Itzel Carbajal nitrogen/Creatinine [Mass ratio]24.6 mg/mgNormalThMcCullough-Hyde Memorial HospitalComment on above:Performed By: #### OSMO #### [facility] [address] [place] [address] Dr. Itzel Reidon gap [Moles/Vol]14.3 mmol/LNormalMercy Health Anderson Hospital Comment on above:Performed By: #### UA #### [facility] [address] [place] [address] Dr. Itzel LermaCalcium [Mass/Vol]7.8 mg/dLCritically low8.5-10.1The [facility] CenterComment on above:Performed By: #### UA #### [facility] [address] [place] [address] Dr. Itzel LermaChloride [Moles/Vol]101 mmol/JSxunqd76-516Mwf [facility] Comment on above:Performed By: #### UA #### [facility] [address] [place] [address] Dr. Yilan ChangCO2 [Moles/Vol]14.7 mmol/LCritically low21.0-32.0The [facility] CenterComment on above:Performed By: #### UA #### [facility] [address] [address] [address] Itzel LermaCreatinine [Mass/Vol]2.01 mg/dLCritically high0.70-1.30The [facility] CenterComment on above:Performed By: #### UA #### [facility] [address] [address] [address] Robbins ChangEGFR-AF WHHQSWOW77 mL/min/1.91n6Gespbciroc low>=60The [facility] CenterComment on above:Performed By: #### UA #### [facility] [address] [place] [address] Dr. Robbins ChangEGFR-NON AF FPNUZGCO71 mL/min/1.47s6Vwqrsermmq low>=60The [facility] CenterComment on above:Performed By: #### UA #### [facility] [address] [address] [address] Itzel LermaGlucose [Mass/Vol]152 mg/dLCritically xnmo79-991Sqa [facility] CenterComment on above:Performed By: #### UA #### [facility] [address] [place] [address] Dr. Itzel LermaPotassium [Moles/Vol]4.0 mmol/LNormal3.5-5.1The [facility] Comment on above:Performed By: #### UA #### [facility] [address] [address] [address] Itzel LermaSodium [Moles/Vol]126 mmol/LCritically wgl292-476Xox [facility] CenterComment on above:Performed By: #### UA #### [facility] [address] [address] [address] Itzel LermaUrea nitrogen [Mass/Vol]51.0 mg/dLCritically high7.0-18.0The [facility] CenterComment on above:Performed By: #### UA #### [facility] [address] [place] [address] Dr. Itzel Carbajal nitrogen/Creatinine [Mass ratio]25.4 mg/mgNoKettering Health Main CampusComment on above:Performed By: #### UA #### [facility] [address] [place] [address] Dr. Itzel LermaPROTIMEon 24-11-8843VWR Coag (PPP) [Relative time]4.72 {INR} Critically highMercy Health Anderson HospitalComment on above:Performed By: #### PT #### [facility] [address] [place] [address] Dr. Itzel Li GUIDELINESSEE BELOWCleveland ClinicComment on above:Result Comment: DESIRED INR: 2.0 - 3.0 CONDITIONS NOT LISTED BELOW 2.5 - 3.5 FOR PROSTHETIC HEART VALVE REPLACEMENT 2.5 - 3.5 RECURRENT THROMBOSIS Performed By: #### PT #### [facility] [address] [place] [address] Dr. Itzel LermaPT Coag (PPP) [Time]46.1 sCritically high9.0-11.6The [facility] CenterComkarmanos cancer center on above:Performed By: #### PT #### [facility] [address] [place] [address] Dr. Itzel Martinez RANDOM URINEon 25-11-8721ZF SODIUM<89Uxiace43-68HwgMercy Health Anderson HospitalComment on above:Performed By: #### OBIA #### [facility] [address] [place] [address] Dr. Itzel Munoz RANDOMon 81-40-9126Cpsnpuuwh Ql (U)NegativeNormalNEGATIVEMercy Health Anderson HospitalComment on above:Performed By: #### UA #### [facility] [address] [place] [address] Dr. Itzel Kearns (U)CLEARNormalCLEARMercy Health Anderson HospitalComment on above: Performed By: #### UA #### [facility] [address] [place] [address] Dr. Itzel Castanon (U)LT. YELLOWNormalYELLOWMercy Health Anderson HospitalComment on above:Performed By: #### UA #### [facility] [address] [address] [address] Itzel LermaGlucose Ql (U)NegativeNormalNEGATIVEMercy Health Anderson HospitalComment on above:Performed By: #### UA #### [facility] [address] [address] [address] Itzel LermaHemoglobin Ql (U)NegativeNormalNEGATIVEMercy Health Anderson Hospital Comment on above:Performed By: #### UA #### [facility] [address] [address] [address] Itzel LermaKetones Ql (U)NegativeNormalNEGATIVEMercy Health Anderson HospitalComment on above:Performed By: #### UA #### [facility] [address] [place] [address] Dr. Itzel LermaLEUKOCYTESNegativeNormalNEGATIVEMercy Health Anderson HospitalComment on above:Performed By: #### UA #### [facility] [address] [address] [address] tIzel LermaNitrite Ql (U)NegativeNormalNEGATIVEMercy Health Anderson HospitalComment on above:Performed By: #### UA #### [facility] [address] [address] [address] Itzel LermapH (U)6.0 [pH]Normal5-9The [facility] CenterComment on above: Performed By: #### UA #### [facility] [address] [place] [address] Dr. Itzel LermaSPEC GRAVITY1.113Enikhk4.005-<=1.025The [facility] CenterComment on above:Performed By: #### UA #### [facility] [address] [address] [address] Itzel Munoz PROTEINNegativeNormalNEGATIVE/ TRACEMercy Health Anderson Hospital Comment on above:Performed By: #### UA #### [facility] [address] [place] [address] Dr. Itzel LermaUrobilinogen Qn (U)0.2 {Reta'U}/dLNormal0.2 - 1.0The [facility] CenterComment on above:Performed By: #### UA #### [facility] [address] [address] [address] Itzel LermaXR ABD FLAT UP_PA Sterling 16-31-6594VQ ABD FLAT UP_PA CHEXAMINATION: XR ABD FLAT UP_PA CH HISTORY: UNSPECIFIED [...] Electronically authenticated by: DORIAN YODER Date: 2022-07-10 10:16Norm[facility] AUTO DIFFon 97-75-7728JKIR #0.1 103/ulNormal0.0-0.1The [facility] CenterComment on above:Performed By: #### OBIA #### [facility] [address] [address] [address] Itzel LermaBasophils/100 WBC (Bld)0.2 %Normal0.2-2.0[facility] Comment on above:Performed By: #### OBIA #### [facility] [address] [address] [address] Itzel Terrazas #0.0 103/ulNormal0.0-0.7The [facility] CenterComment on above: Performed By: #### OBIA #### [facility] [address] [address] [address] Itzel Epsteinosinophils/100 WBC (Bld)0.2 %Critically low0.9-7.0The [facility] CenterComment on above:Performed By: #### OBIA #### [facility] [address] [place] [address] Dr. Itzel Epsteinrythrocyte distribution width (RBC) [Ratio]14.0 %Qejeua82.0-15.0 [facility] Anderson HospitalComment on above:Performed By: #### OBIA #### [facility] [address] [place] [address] Dr. Itzel LermaHematocrit (Bld) [Volume fraction]39.3 %Critically low42.0-54.0 The [facility] CenterComment on above:Performed By: #### OBIA #### [facility] [address] [place] [address] Dr. Itzel LermaHemoglobin (Bld) [Mass/Vol]13.2 g/dLCritically low14.0-18.0The [facility] CenterComment on above:Performed By: #### OBIA #### [facility] [address] [place] [address] Dr. Itzel Ortega #0.20 10e3/ulCritically high0.00-0.03The [facility] Comment on above:Performed By: #### OBIA #### [facility] [address] [place] [address] Dr. Itzel Ortega %0.9 %Critically high0.0-0.5ThMcCullough-Hyde Memorial HospitalComment on above:Performed By: #### OBIA #### [facility] [address] [place] [address] Dr. Itzel Hahn #1.3 103/ulNormal1.2-3.8The [facility] CenterComment on above:Performed By: #### OBIA #### [facility] [address] [place] [address] Dr. Itzel Martinezmphocytes/100 WBC (Bld)5.8 %Critically low20.5-60.0The [facility] CenterComment on above:Performed By: #### OBIA #### [facility] [address] [place], [place] [address] Dr. Itzel Valdez DIFF REQNONormalThe [facility] Medical CenterComment on above: Performed By: #### OBIA #### [facility] [address] [place] [address] Dr. Itzel Maria (RBC) [Entitic mass]29.7 btXbvqij78.9-34.0The [facility] CenterComment on above:Performed By: #### OBIA #### [facility] [address] [place] [address] Dr. Itzel Maria (RBC) [Mass/Vol]33.6 g/nNGtdevu09.9-35.2The [facility] CenterComment on above:Performed By: #### OBIA #### [facility] [address] [place] [address] Dr. Itzel Maria (RBC) [Entitic vol]88.3 pSNtfqqf94.0-94.0[facility] Anderson HospitalComment on above:Performed By: #### OBIA #### [facility] [address] [place] [address] Dr. Itzel Kirkland #1.3 103/ulCritically high0.3-0.8ThMcCullough-Hyde Memorial Hospital Comment on above:Performed By: #### OBIA #### [facility] [address] [place] [address] Dr. Itzel Mendozaocytes/100 WBC (Bld)6.0 %Normal1.7-12.0[facility] Comment on above:Performed By: #### OBIA #### [facility] [address] [place] [address] Dr. Itzel Watkins #19.3 103/ulCritically high1.4-6.5ThMcCullough-Hyde Memorial Hospital Comment on above:Performed By: #### OBIA #### [facility] [address] [place] [address] Dr. Itzel Hidalgoutrophils/100 WBC (Bld)86.9 %Critically high43.0-75.0The [facility] CenterComment on above:Performed By: #### OBIA #### [facility] [address] [place] [address] Dr. Itzel LermaPlatelet mean volume (Bld) [Entitic vol]9.2 fLCritically low 9.5-13.5The [facility] CenterComment on above:Performed By: #### OBIA #### [facility] [address] [place] [address] Dr. Itzel LermaPLT246 103/sfAbvkif725-938Kmx [facility] CenterComment on above: Performed By: #### OBIA #### [facility] [address] [place] [address] Dr. Itzel LermaRBC4.45 106/ulCritically low4.70-6.10The [facility] CenterComment on above:Performed By: #### OBIA #### [facility] [address] [place] [address] Dr. Itzel LermaWBC22.2 103/ulCritically high4.0-11.0The [facility] CenterComment on above:Performed By: #### OBIA #### [facility] [address] [place] [address] Dr. Itzel LermaLACTATE/LACTIC ACIDon 28-52-6211Qzhclzt [Moles/Vol]1.0 mmol/L Normal0.4-1.9The [facility] CenterComment on above:Performed By: #### OSMO #### [facility] [address] [place] [address] Dr. Itzel LermaPROF 14(COMP METB)on 17-56-2157Bedmgjt [Mass/Vol]3.0 g/dL Critically low3.4-5.0The [facility] CenterComment on above:Performed By: #### CMP #### [facility] [address] [place] [address] Dr. Itzel LermaAlbumin/Globulin [Mass ratio]0.6 {ratio}NormalThe [facility] Medical CenterComment on above:Performed By: #### CMP #### [facility] [address] [place] [address] Dr. Itzel LermaALP [Catalytic activity/Vol]90 U/OMxjmtj66-974Qnr [facility] CenterComment on above:Performed By: #### CMP #### [facility] [address] [address] [address] Itzel Finch [Catalytic activity/Vol]12 U/LCritically ngx77-10Aml [facility] CenterComment on above:Performed By: #### CMP #### [facility] [address] [address] [address] Itzel Reidon gap [Moles/Vol]18.2 mmol/LNormalThe [facility] Comment on above:Performed By: #### CMP #### [facility] [address] [address] [address] Itzel LermaAST [Catalytic activity/Vol]17 U/ESrwmhq12-81Ilh [facility] CenterComment on above:Performed By: #### CMP #### [facility] [address] [address] [address] Itzel LermaBilirubin [Mass/Vol]0.8 mg/dLNormal0.2-1.0The [facility] Comment on above:Performed By: #### CMP #### [facility] [address] [address] [address] Itzel LermaCalcium [Mass/Vol]7.9 mg/dLCritically low8.5-10.1The [facility] CenterComment on above:Performed By: #### CMP #### [facility] [address] [address] [address] Itzel LermaChloride [Moles/Vol]92 mmol/LCritically obd57-747Siy [facility] CenterComment on above:Performed By: #### CMP #### [facility] [address] [address] [address] Itzel LermaCO2 [Moles/Vol]14.0 mmol/LCritically low21.0-32.0The [facility] CenterComment on above:Performed By: #### CMP #### [facility] [address] [address] [address] Itzel LermaCreatinine [Mass/Vol]2.74 mg/dLCritically high0.70-1.30The [facility] CenterComment on above:Performed By: #### CMP #### [facility] [address] [address] [address] Itzel EpsteinGFR-AF KWVLJQCE36 mL/min/1.84v6Cbeczvqipb low>=60The [facility] CenterComment on above:Performed By: #### CMP #### [facility] [address] [address] [address] Itzel EpsteinGFR-NON AF RJPEMWYS64 mL/min/1.22z9Umawffhtly low>=60The [facility] CenterComment on above:Performed By: #### CMP #### [facility] [address] [place] [address] Dr. Itzel LermaGlobulin (S) [Mass/Vol]4.9 g/dLNormalThe [facility] CenterComment on above:Performed By: #### CMP #### [facility] [address] [place] [address] Dr. Itzel LermaGlucose [Mass/Vol]169 mg/dLCritically awmc27-454Ufb [facility] CenterComment on above:Performed By: #### CMP #### [facility] [address] [place] [address] Dr. Itzel LermaPotassium [Moles/Vol]4.2 mmol/LNormal3.5-5.1The [facility] Comment on above:Performed By: #### CMP #### [facility] [address] [address] [address] Itzel LermaProtein [Mass/Vol]7.9 g/dLNormal6.4-8.2The [facility] Comment on above:Performed By: #### CMP #### [facility] [address] [place] [address] Dr. Itzel LermaSodium [Moles/Vol]120 mmol/LCritically cgx387-103Hiy [facility] CenterComment on above:Performed By: #### CMP #### [facility] [address] [address] [address] Itzel LermaUrea nitrogen [Mass/Vol]69.0 mg/dLCritically high7.0-18.0The [facility] CenterComment on above:Performed By: #### CMP #### [facility] [address] [place] [address] Dr. Itzel LermaUrea nitrogen/Creatinine [Mass ratio]25.2 mg/mgNoSCCI Hospital Lima on above:Performed By: #### CMP #### [facility] [address] [place] [address] Dr. Itzel Velez 36-96-9534KMX Coag (PPP) [Relative time]5.18 {INR} Critically highThe [facility] on above:Performed By: #### UA #### [facility] [address] [place] [address] Dr. Itzel Li GUIDELINESSEE BELOWCleveland ClinicComkarmanos cancer center on above:Result Comment: DESIRED INR: 2.0 - 3.0 CONDITIONS NOT LISTED BELOW 2.5 - 3.5 FOR PROSTHETIC HEART VALVE REPLACEMENT 2.5 - 3.5 RECURRENT THROMBOSIS Performed By: #### UA #### [facility] [address] [place] [address] Dr. Itzel LermaPT Coag (PPP) [Time]50.2 sCritically high9.0-11.6The [facility] CenterComkarmanos cancer center on above:Performed By: #### UA #### [facility] [address] [place] [address] Dr. Itzel Irving 34-03-4240zGES Coag (Bld) [Time]62.9 sCritically high 22.3-36.2[facility] on above:Performed By: #### UA #### [facility] [address] [place] [address] Dr. Itzel Cramer 28-00-8963QQK8.544 uIU/mLNormal0.358-3.740The [facility] on above:Performed By: #### OBIA #### [facility] [address] [place] [address] Dr. Itzel Lerma Vital Signs Date TimeVital SignValuePerforming ZkwdqchatPdcqhzdx93-75-5077 14:50-0400 Diastolic blood whtmxquk78 mm[Hg]Madyson Galvez MD Work Phone: [facility]10-06-2025 14:50-0400 Heart rate71 /Lizette Galvez MD Work Phone: [facility]10-06-2025 14:50-0400 Respiratory rate16 /minMadyson Galvez MD Work Phone: 1(445)448-[address] [place], [place] 75[address]10-06-2025 14:50-0400 SaO2% (BldA) [Mass fraction]98 %Madyson Galvez MD Work Phone: [phone] [place], [place] [address]10-06-2025 14:50-0400 Systolic blood ftjrtuze050 mm[Hg]Madyson Galvez MD Work Phone: [phone]10-06-2025 11:11-0400 Body ezytbrckese23.1 [degF]Madyson Galvez MD Work Phone: 1(996)527-[address] [place], [place] 7515510-06-2025 11:10-0400 Body zhnbar403.72 cmAkana Galvez MD Work Phone: [phone])846-[address] [place], [place] [address]15510-06-2025 11:10-0400 Body ixejxj22 kgMadyson Galvez MD Work Phone: [address] [place], [place] [address]-14-2023 13:11-0400 Body wvmfli550.72 cmMD Ivan Lopez Work Phone: [facility]04-14-2023 13:11-0400 Body qocvhsagxix07.8 [degF]MD Ivan Lopez Work Phone: [facility]04-14-2023 13:11-0400 Body amjqec29.4 kgMD Ivan Lopez Work Phone: [facility]04-14-2023 13:11-0400 Diastolic blood mm[Hg]MD Ivan Lopez Work Phone: [facility]04-14-2023 13:11-0400 Heart rate73 /minMD Ivan Ambrosego Work Phone: [facility]04-14-2023 13:11-0400 Respiratory rate20 /minMD Ivan Ambrosego Work Phone: [facility]04-14-2023 13:11-0400 SaO2% (BldA) [Mass fraction]99 %MD Ivan Lopez Work Phone: [facility]04-14-2023 13:11-0400 Systolic blood fgluzsdz251 mm[Hg]MD Ivan Lopez Work Phone: [facility]08-25-2022 15:00-0400 Body yufttv505.72 [employer] Other [employer] Other 08-25-2022 15:00-0400Body mass index (BMI) [Ratio] 25.09 kg/h2Rysvlhlr [employer] Other [employer] Other 08-25-2022 15:00-0400Body uxwwac50.84 kgLawrjulia [employer] Other [employer] Other 05-26-2022 15:00-0400Body .72 [employer] Other [employer] Other 05-26-2022 15:00-0400Body mass index (BMI) [Ratio]26 kg/z4Pdnhkolu [employer] Other [employer] Other 05-26-2022 15:00-0400Body qarxjj75.57 kgLawrjulia [employer] Other [employer] Other 05-26-2022 15:00-0400Diastolic blood xlyepbyt70 mm[Hg] Yves Sanford Other [employer] Other 05-26-2022 15:00-0400Systolic blood pohrqmuh138 mm[Hg] Yves Juvenal Other [employer] Other 02-24-2022 14:30-0500Body qxqjxy552.72 cmLawmartina Sanford Other [employer] Other 02-24-2022 14:30-0500Body mass index (BMI) [Ratio] 26.76 kg/u5WcppwvhdYves Cornejoack Other [employer] Other 02-24-2022 14:30-0500Body qosina87.83 kgLajustynajulia Cornejoack Other [employer] Other 02-24-2022 14:30-0500Diastolic blood fluqjjpj87 mm[Hg] Yves Sanford Other [employer] Other 02-24-2022 14:30-0500Systolic blood uzikmszx943 mm[Hg] Yves Sanford Other [employer] Other Encounters Encounter DateEncounter TypeCare ProviderFacilityStart: 07-04-2025 End: 09-99-5988Briyyeypj department patient visitMadyson Galvez MD Work Phone: [phone]-Chcjaoqfg Room Work Phone: Start: 73-79-4159scirrgrmcnFZNPeace Harbor Hospital Ambulatory PPGStart: 01-10-2023 End: 10-83-5657Tenpwdsxa department patient visitMD Ivan Lopez Work Phone: [facility] Work Phone: Start: 11-24-2022 End: 54-49-1270rrsypoqitbWR DOCTOR MISCFacility:A0Iqbfm: 11-19-2022 End: 49-81-4747Rcxrrormdg and management of inpatientDR DOCTOR MISCFacility:H1 Start: 10-29-2022 End: 12-35-0128ndtdqreerdTehlujcq McCormack Other [employer] Other Start: 67-96-6561Sekdynjiu encounterLayanet Sanford FPG Referral CoordinatorStart: 28-33-2568iojhoxooahEcfhossj:EU BellevueStart: 07-10-2022 End: 15-96-7835djdplmombbKT DOCTOR MISCFacility:U3Sjzpo: 05-23-2022 End: 68-79-9780hsjszptnzlPntwtagl McCormack Other [employer] Other Start: 78-48-0683Sxsikk outpatient visit 15 minutes Yves May GastroenterologyStart: 02-21-2022 End: 06-67-8576aysybzqbooAtzsbirs Juvenal Other [employer] Other Start: 17-41-5919Ijqmhs outpatient visit 15 minutes Yves May GastroenterologyStart: 11-22-2021 End: 00-66-2715yzvceztfzaVovmhgxn Juvenal Other [employer] Other Start: 78-26-3462Xejxaz outpatient new 45 minutes Yves May Gastroenterology Procedures DateProcedureProcedure DetailPerforming ClinicianStart: 50-06-3775Vvukg chest X-rayMadyson Galvez MD Work Phone: Start: 26-13-5395YP of head without contrastMD Ivan Lopez Work Phone: Start: 97-45-0500KWB screeningDR DOCTOR MISCComment on above:Performed By: #### UA #### [facility] [address] [place] [address] Dr. Itzel Lerma Plan of Treatment DateCare ActivityDetailAuthorStart: 32-93-7588Qdqwvkmz identified in Blood by CultureBlood CultureOhioHealth Riverside Methodist Hospitaltart: 87-86-9030Gzazyegc identified in Urine by CultureUrine CultureWyandot Memorial Hospital Start: 81-60-1380[facility] Centertart: 07-04-2025 [facility] HospitalPatient EducationMercy Health Lor[facility] Ctr Work Phone: Patient referralMercy Health Lorain Hospital Ctr Work Phone: Payers DatePayer CategoryPayerPolicy [id number] [id number] .[id number] [id number] [facility] [id number] Social History DateTypeDetailFacilitySex Assigned At [facility]Saint [facility]Ever[facility] Other Start: 01-10-2023 End: 61-25-2502Pwzjflt smoking status NHISNever smoked tobacco (finding) [facility] Hospitaltart: 99-09-5929Ljk Assigned At [facility]exMale (finding)[facility] Evaluation note 05-23-2022 Note Date & AvjoOlsuTrsbottn76-50-3052 Evaluation note* Encounter Date Diagnosis Assessment Notes Treatment Notes Treatment Clinical Notes Apr, Diarrhea (ICD-10 - R19.7) patient states does not seem to bad patient does use the imodium as needed Apr,Nausea (ICD-10 - R11.0)will start zofran [employer] Other Evaluation note 02-21-2022 Note Date & FbhfSxqdSrilfidl83-27-7977 Evaluation note* Encounter Date Diagnosis Assessment Notes Treatment Notes Treatment Clinical Notes January, Weight loss (ICD-10 - R63.4) January,2Diarrhea (ICD-10 - R19.7) Start Imodium every morning Encouraged low fodmap diet. Education given to patient again. 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) January,Frequent bowel movements (ICD-10 - R19.4) [employer] Other Evaluation note 11-22-2021 Note Date & PahvCvenJriqyzta91-06-2394 Evaluation note* Encounter Date Diagnosis Assessment Notes Treatment Notes Treatment Clinical Notes Oct, Weight loss (ICD-10 - R63.4) OBTAIN RECORDS FROM [facility] STAY COPY OF LOW FODMAP DIET GIVEN TO PT RTO 3 MONTHS Oct,2Diarrhea (ICD-10 - R19.7) [employer] Other Evaluation note Note Date & TypeNoteFacilityEvaluation noteNo assessment information available [facility] Work Phone: Evaluation note Note Date & TypeNoteFacilityEvaluation noteNo InformationNortConemaugh Miners Medical Center [employer] Other History general Narrative - Reported Note Date & TypeNoteFacilityHistory general Narrative - Reported* Type Description Date Surgical History bowel resection [facility] [employer] Other Hospital Discharge instructions Note Date & TypeNoteFacilityHospital Discharge instructions Additional Instructions Please return to emergency department for any new or worrisome symptoms including any chest pain, shortness of breath, vomiting, fever, lightheadedness. Follow-up with your family physician regarding your medications. They may need to be adjusted further given your recent bout of low blood pressure.[facility] Work Phone: Reason for referral (narrative) Note Date & TypeNoteFacilityReason for referral (narrative)No reason for referral information availableMercy Health Lorain Hospital Ctr Work Phone: Reason for visit Narrative Note Date & TypeNoteFacilityReason for visit NarrativeREFERRED BY KEVIN LOPEZ FOR WEIGHT LOSS. PT DOES TAKE MEDICATIONS, HOWEVER HE DOES NOT RECALL NAMES OR DOSAGES OR HAVE A LIST TO REVIEW, (REFERRAL NOTE RECEIVED)[facility] [employer] Other Chief Complaint and Reason for Visit Chief Complaint fall Chief Complaint Admit Date [place] sent in July 04, 2025 10 :36am Advance Directives No Advanced Directives Records Found [...] KNOW NAMES OF MEDICATIONS HE IS ON.NEW [place] AUTH Care Teams (unrecognized sec tion and content) Team Status: Active Member Role Status Dates Ivan Lopez MD Primary Care Provider Active Team Status: Inactive Member Role Status Dates Ivan Lopez MD Primary Care Provider Active Ajit Josefa , APRNEmergency ProviderActive Team Status: Active Member Role Status Dates Karoline Johnson (Clinic) , DO [facility] Primary Care Prov ider Active Team Status: Inactive Member Role Status Dates Madyson Galvez MD Emergency Provider Active Start: July 04, 2025 End: July 04, 2025Jose Albertosaji Combsey (Clinic) , DO [facility]Primary Care Provider ActiveStart: July 04, 2025 End: July 04, 2025 Goals (unrecognized section and content) Goals may be documented in a n alternate section (unrecognized sect ion and content) No Status Records FoundNo Status Records FoundNo Status Records FoundNo Status Records Found INFORMATION SOURCE (unrecogn ized section and content) DATE CREATED AUTHOR 02/12/2023 [facility] DATE CREATED AUTHOR AUTHOR'S ORGANIZ ATION 03/18/2023 [facility] DATE CREATED AUTHOR AUTHOR'S ORGANIZ ATION 07/10/2024 [facility] DATE CREATED AUTHOR AUTHOR'S ORGANIZ ATION 07/16/2025 [facility] FOR RECORDS PERTAINING TO PATIENTS WHO [...] BE BASED ON THE PRIMARY CLINICAL RECORDS. [facility] [employer] [facility]. provides no warranty or guarantee of the accuracy or completeness of information in this document.
--- OUTSIDE RECORDS SUMMARY | 2025-07-19 21:52 | XMS_ITS | Clinical Summary ---
Author Organization [facility] Address [address] [place] [place] [address] Care Team Providers Care Roll Machine Operator Name Role Phone Aurelio Gates MD Unavailable [phone] Mable Corona MD Primary Care Provider [phone] Social History Tobacco UseTypesPacks/DayYears UsedDateSmoking Tobacco: Never AssessedSex and Gender InformationValueDate RecordedSex Assigned at BirthNot on fileLegal Sex Male12/11/2022 7:18 PM EDTGender IdentityNot on fileSexual OrientationNot on file Plan of Treatment Health MaintenanceDue DateLast DoneCommentsMedicare Annual Wellness (AWV) 1941Influenza Vaccine (#1)51, 07/31/2023, 06/28/2022, Additional history existsPneumococcal Vaccine: 65+ AtioqYlakgdkvr06/25/2025, 10/25/2016, 06/21/2015, Additional history exists Insurance Care Teams Team MemberRelationshipSpecialtyStart DateEnd Date Aurelio Gates MD [address] [address] PCP - [place]09/29/21 Mable Corona MD [address] [place] [address] [place] [address] PCP - Generalmily Medicine06/16/25
--- OUTSIDE RECORDS SUMMARY | 2025-07-19 21:52 | XMS_ITS | Clinical Summary ---
Author Organization [facility] Address [address] [place] [address] Phone Care Team Providers Care Attic Blower Name Role Phone Unavailable Primary Care Provider Unavailabl e Social History Tobacco UseTypesPacks/DayYears UsedDateSmoking Tobacco: Never AssessedSex and Gender InformationValueDate RecordedSex Assigned at BirthNot on fileLegal Sex Male08/24/2022 9:12 AM ESTGender IdentityNot on fileSexual OrientationNot on file Plan of Treatment Not on file
--- OUTSIDE RECORDS SUMMARY | 2025-07-19 21:52 | XMS_ITS | Clinical Summary ---
Author Organization [employer] Address [id number] [place] [address] Care Team Providers Care Global Mobility Specialist Name Role Phone Mable Corona MD Primary Care Provider Social History Tobacco UseTypesPacks/DayYears UsedDateSmoking Tobacco: Never AssessedSex and Gender InformationValueDate RecordedSex Assigned at BirthNot on fileLegal Sex Male08/16/2021 11:16 AM ESTGender IdentityNot on fileSexual OrientationNot on file Plan of Treatment Health MaintenanceDue DateLast DoneCommentsDepression Wtpazzaot83/18/1953Tobacco Xxxicjfix02/18/1953DTaP,Tdap and Td Vaccines (1 - Tdap)01/15/1960Zoster (Shingles) Vaccine (1 of 2)1991Fall Risk Dnyjivwyu49/18/2006COVID-19 Vaccine (3 - season)503/05/2021, 11/06/2020Influenza Vaccine /10/2022, 05/30/2021, 08/19/2009 Medical Devices Not on file Care Teams Team MemberRelationshipSpecialtyStart DateEnd Date Mable Corona MD PCP - GeneralFamily Iucwgxkv16/18/21
--- NOTE | 2025-07-19 22:08 | PC.NURSE ---
this patient complains of coughing up blood onset tonight, this patient voices no other complaints, concerns, or needs and shows no signs of distress
--- NOTE | 2025-07-19 22:13 | ECG_ITS ---
[facility] Test Date: 2025-07-19 Pat Name: JULIETTE MORROW Department: Room: - Gender: Male [employer] Manager: : 1940 Requested By: [id number] Order Number: [id number] Reading MD: SOFIYA HURT M.D. Measurements Intervals [place] Rate: 93 P: -55305 OK: -27189 QRS: -63 QRSD: 112 T: 70 QT: 362 QTc: 413 Interpretive Statements 1210 Atrial fibrillation 2440 Incomplete right bundle branch block 3114 Cannot rule out anterior myocardial infarction, age undetermined [address] depression, probably digitalis effect 7200 Abnormal left axis deviation 8102 Low QRS voltage in chest leads 9150 abnormal ECG Compared to ECG 06/22/2025 05:14:32 ST (T wave) deviation now present Left-axis deviation now present Low QRS voltage now present Myocardial infarct finding still present Electronically Signed On 07-20-2025 7:39:49 EDT by SOFIYA HURT M.D.
--- NOTE | 2025-07-19 22:13 | ED.URI1 ---
HPI - URI/Sore Throat General Chief Complaint: Upper Respiratory Infection Stated Complaint: COUGHING UP BLOOD Time Seen by Provider: 07/19/25 21:56 Source: patient History of Present Illness HPI Narrative: This 85-year-old male with a history of CHF and atrial fibrillation who is on Coumadin and is brought to the emergency department by his son for evaluation of hemoptysis. Last week the patient complained of a sore throat. Since that time he has had a harsh cough. Tonight the patient and son were at the movies and on the way home he started to cough and coughed up phlegm that was bloody. They brought the sputum in with them. It is bright red blood with some small clots. The patient denies any chest pain. He does not feel short of breath. He denies any abdominal pain. He has not had a fever. He denies any dizziness or syncope. He has no lower extremity pain or swelling. He has not recently lost any weight. He states his baseline weight is 136. He is not a smoker and has never been a smoker. Related Data Home Medications ?Medication ?Instructions ?Recorded ?Confirmed atorvastatin 10 mg tablet 10 mg PO QPM 03/14/23 07/19/25 empagliflozin 25 mg tablet 12.5 mg PO DAILY 03/14/23 06/21/25 finasteride 5 mg tablet 5 mg PO DAILY 03/14/23 06/21/25 pantoprazole 40 mg tablet,delayed 40 mg PO DAILY 03/14/23 07/19/25 release tamsulosin 0.4 mg capsule 0.4 mg PO Q24H 03/14/23 07/19/25 warfarin 2.5 mg tablet 2.5 mg PO .COMPLEX 03/14/23 07/19/25 latanoprost 0.005 % eye drops 1 drp ophthalmic (eye) QPM 05/30/24 07/19/25 levothyroxine 50 mcg tablet 50 mcg PO DAILY 05/30/24 07/19/25 (Euthyrox) furosemide 40 mg tablet 40 mg PO DAILY 12/31/24 07/19/25 metoprolol succinate 100 mg 100 mg PO DAILY 12/31/24 07/19/25 tablet,extended release 24 hr lisinopril 2.5 mg tablet 2.5 mg PO DAILY 06/21/25 07/19/25 metoclopramide HCl 5 mg tablet 5 mg PO Q8H 06/21/25 07/19/25 dorzolamide 22.3 mg-timolol 6.8 1 drp ophthalmic (eye) QAM 06/22/25 07/19/25 mg/mL eye drops (Cosopt) Previous Rx's ?Medication ?Instructions ?Recorded acetaminophen 300 mg-codeine 30 mg 1 tab PO Q6H PRN pain 5 days #20 09/13/24 tablet tabs Allergies Allergy/AdvReac Type Severity Reaction Status Date / Time ondansetron (From Zofran) AdvReac Nausea Verified 07/19/25 21:57 Review of Systems ROS Status of ROS 10 or more systems reviewed and unremarkable except as noted in history and below [facility] Medical History (Updated 07/20/25 @ 00:45 by Urvashi Ren MD) History of cardioversion ?Z92.89 - Personal history of other medical treatment (ICD-10) Nondiabetic gastroparesis ?K31.84 - Gastroparesis (ICD-10) (HFpEF) heart failure with preserved ejection fraction ?I50.30 - Unspecified diastolic (congestive) heart failure (ICD-10) HLD (hyperlipidemia) ?E78.5 - Hyperlipidemia, unspecified (ICD-10) Spinal stenosis at L4-L5 level ?M48.061 - Spinal stenosis, lumbar region without neurogenic claudication (ICD-10) Generalized weakness ?R53.1 - Weakness (ICD-10) Gastroparesis ?K31.84 - Gastroparesis (ICD-10) Ileus following gastrointestinal surgery ?K91.89 - Other postprocedural complications and disorders of digestive system (ICD-10) ?K56.7 - Ileus, unspecified (ICD-10) 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 - Peritoneal adhesions (postprocedural) (postinfection) (ICD-10) Bowel obstruction ?K56.609 - Unspecified intestinal obstruction, unspecified as to partial versus complete obstruction (ICD-10) Hypertension ?I10 - Essential (primary) hypertension (ICD-10) Surgical History H/O exploratory laparotomy ?Z98.890 - Other specified postprocedural states (ICD-10) Family History Mother Family history of cancer Social History Within the past year, how often did you have a drink containing alcohol: never Within the past year, how often did you have six or more drinks on one occasion: never Score interpretation: A score less than 4 is consistent with normal alcohol consumption. 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 Highest level of school completed/degree received: high school graduate Do you want help with school or training: No Are you now , , , , never or living with a partner: In a typical week, how many times do you talk on the telephone with family, friends, or neighbors: 3 or more times per week How often do you get together with friends or relatives: 3 or more times per week How often do you attend yarsanism or moravian services: never Do you belong to any clubs or organizations such as yarsanism groups unions, [employer] or athletic groups, or school groups: no Total score: 1 Score interpretation: A score of less than or equal to 1 indicates the most socially isolated. Little interest or pleasure in doing things: not at all Feeling down, depressed, or hopeless: not at all Feel stressed/tense/nervous/anxious/difficulty sleeping: not at all Due to disability, difficulty making decisions: No Do you think of yourself as: straight/heterosexual Gender Identity: male Exam Narrative Exam Narrative: Vital signs and Nursing Notes reviewed: Patient is afebrile with an elevated pulse of 98, blood pressure stable at 117/84 he has not hypoxic with pulse ox of 97% on room air General: Awake, alert, oriented, no acute distress, lying comfortably on the stretcher-beginning and complete sentences without any respiratory distress HEENT: Normocephalic atraumatic, mucous membranes are moist and pink, eyes are clear, normal conjunctiva, vision is grossly intact, posterior pharynx is normal in appearance. Neck: Supple, no JVD Chest: Lungs are clear but diminished with decreased breath sounds in the bases, there is no wheezing rhonchi or rales appreciated no accessory muscle use, patient is speaking in complete sentences-no chest wall tenderness to palpation-intermittent harsh moist cough CVS: Irregular rate and rhythm S1-S2, no murmurs rubs or gallops, pulses are brisk and equal bilaterally ABD: Soft, nondistended, nontender, no rebound guarding or rigidity, bowel sounds are normal, no pulsatile masses appreciated Extremities: Moving all extremities, no lower extremity tenderness or swelling noted, negative Homans' sign, pulses are brisk and equal bilaterally Skin: Normal in appearance without rash,pallor, petechiae or purpura Neuro: No focal deficits Constitutional Vital Signs, click to edit/add: Last Vital Signs Temp 98.4 F 07/19/25 21:49 Pulse 83 07/19/25 22:40 Resp 20 07/19/25 22:42 BP 95/58 07/19/25 22:30 Pulse Ox 97 07/19/25 22:42 O2 Del Method Room Air 07/19/25 21:49 Course Vital Signs Vital signs: Vital Signs Temperature 98.4 F 07/19/25 21:49 Pulse Rate 98 H 07/19/25 21:49 Respiratory Rate 16 07/19/25 21:49 Blood Pressure 117/84 07/19/25 21:49 Pulse Oximetry 97 07/19/25 21:49 Oxygen Delivery Method Room Air 07/19/25 21:49 Temperature 98.4 F 07/19/25 21:49 Pulse Rate 83 07/19/25 22:40 Respiratory Rate 20 07/19/25 22:42 Blood Pressure 95/58 07/19/25 22:30 Pulse Oximetry 97 07/19/25 22:42 Oxygen Delivery Method Room Air 07/19/25 21:49 MDM - URI/Sore Throat MDM Narrative Medical decision making narrative: This 85-year-old male is brought to the emergency department by his son for evaluation of hemoptysis. Patient was at a [employer] with his son when he started to cough and coughed up bloody phlegm. The patient recently had a sore throat and developed a cough. He has not had a fever. The patient states he feels fine except for his cough and now coughing up blood. He does have a history of atrial fibrillation and is on Coumadin. I reviewed a hospitalization from May 2025 in which he had acute systolic and diastolic heart failure with an ejection fraction of 30%, pulmonary hypertension and moderate mild mitral and aortic regurgitation. He was admitted then with CHF. He was discharged home on spironolactone. The patient's son states that he was told in the past to weigh himself on a daily basis and only take Lasix if his weight goes up by 3 or more pounds. It is unclear the last time he took any diuretic. The patient's lungs are clear with a normal pulse ox. He does have diminished breath sounds in the bases but no rhonchi or rales, accessory muscle use and he is speaking in complete sentences with a normal oxygen saturation. EKG done upon arrival is atrial fibrillation at 93 bpm with an incomplete right bundle branch block and left axis deviation. An IV was placed and routine labs were ordered. He has a normal white count and stable hemoglobin. Electrolytes are normal. Troponin is normal. BNP is elevated at 6959. This is similar to when he was admitted a month ago. INR is 1.84. CT scan of the chest with IV contrast was ordered. It shows cardiomegaly with small pericardial effusion, bronchial wall thickening noted, mild mucosal plugging notably left lower lobe with no bulky mediastinal or hilar adenopathy. Aorta was not aneurysmal with mild to moderate plaque. There were small bilateral pleural effusions left greater than right with a left lower lobe parenchymal opacity identified somewhat tubular 2.8 x 2.6 x 7.2 cm in size. No pneumothorax was noted. The results of these findings were discussed with the patient and his son. He was medicated with 40 mg of IV Lasix and empiric antibiotics were ordered; Rocephin and Zithromax. Patient was also given a dose of Robitussin and a DuoNeb treatment. He remained stable for admission. Patient was agreeable to admission. Case is discussed with the hospitalist and he is accepted for admission to Med/Surg. Medical Records Attestation: I reviewed the patient's medical records. Lab Data Attestation: I reviewed the patient's lab results. Labs: Lab Results 07/19/25 Range/Units 22:30 WBC 9.9 (4.0-11.0) 10^3/uL RBC 3.83 L (4.70-6.10) 10^6/uL Hgb 12.2 L (14.0-18.0) g/dL Hct 37.3 L (42.0-54.0) % MCV 97.4 H (80.0-94.0) fL MCH 31.9 (25.9-34.0) pg MCHC 32.7 (29.9-35.2) g/dL RDW 15.5 H (11.0-15.0) % Plt Count 145 L (150-450) 10^3/uL MPV 10.2 (9.5-13.5) fL Neut % (Auto) 78.6 H (43.0-75.0) % Lymph % (Auto) 8.8 L (20.5-60.0) % Shelby % (Auto) 11.2 (1.7-12.0) % Eos % (Auto) 0.7 L (0.9-7.0) % Baso % (Auto) 0.2 (0.2-2.0) % Neut # (Auto) 7.8 H (1.4-6.5) 10^3/uL Lymph # (Auto) 0.9 L (1.2-3.8) 10^3/uL Shelby # (Auto) 1.1 H (0.3-0.8) 10^3/uL Eos # (Auto) 0.1 (0.0-0.7) 10^3/uL Baso # (Auto) 0.0 (0.0-0.1) 10^3/uL Abs Immat Gran (auto) 0.05 H (0.00-0.03) 10^3/uL Imm/Tot Granulo (auto) 0.5 (0.0-0.5) % PT 18.4 H (9.0-11.6) sec INR 1.84 Sodium 136 (136-145) mmol/L Potassium 3.8 (3.5-5.1) mmol/L Chloride 103 (98-107) mmol/L Carbon Dioxide 23.6 (21.0-32.0) mmol/L Anion Gap 13.2 BUN 31.0 H (7.0-18.0) mg/dL Creatinine 1.29 (0.70-1.30) mg/dL Est GFR ( Amer) >60 (>=60 mL/min/1.73m^2) Est GFR (Non-Af Amer) 53 L (>=60 mL/min/1.73m^2) BUN/Creatinine Ratio 24.0 Glucose 153 H (74-106) mg/dL Lactate 1.4 (0.4-2.0) mmol/L Calcium 8.4 L (8.5-10.1) mg/dL Total Bilirubin 0.7 (0.2-1.0) mg/dL AST 21 (15-37) U/L ALT 32 (16-63) U/L Alkaline Phosphatase 99 (46-116) U/L Troponin I High Sens 15.7 (4.0-76.1) pg/mL NT-Pro-B Natriuret Pep 6959.0 H* (<=1800.0) pg/mL Total Protein 7.6 (6.4-8.2) g/dL Albumin 2.9 L (3.4-5.0) g/dL Globulin 4.7 g/dL Albumin/Globulin Ratio 0.[address] scan - chest: Radiologist's impression: ITS Impressions Chest CTA 07/19/25 23:11 IMPRESSION: Negative for Central to proximal segmental branch pulmonary embolism. Bibasilar disease and effusions probably left-sided. Ovoid consolidated opacity within the medial left lower lobe noted This appears be new from prior examination and may have been obscured by bilateral effusions. Recommend follow-up to resolution. Impression dictated by: Karri Way M.D. 07/19/2025 11:52 PM Dictation Location: [place] [address] Electronically authenticated by: [id number] Y Date: 07/19/2025 23:52 ECG Data Attestation: I personally reviewed and interpreted this ECG as follows: (Atrial fibrillation at 93 bpm, incomplete right bundle branch block, nonspecific ST changes, left axis deviation, no acute ST segment elevation) Critical Care Time Critical Care Time Critical Care Time: Yes Total Critical Care Time: 35 Attestation: Due to this patient's presentation of hemoptysis with a history of heart disease and on anticoagulation and the high probability of sudden clinically significant deterioration in his condition he required the highest level of my preparedness to intervene urgently. I provided critical care time including documentation time medication orders and management reevaluation vital sign assessment ordering and reviewing of lab tests, radiographic studies and consultation with hospitalist. Aggregate critical care time is 35 minutes including only time during which I was involved in work direct related to his care Discharge Plan Discharge Chief Complaint: Upper Respiratory Infection Clinical Impression: Cough with hemoptysis, CHF (congestive heart failure), Pleural effusion Patient Disposition: Admitted as Observation Time of Disposition Decision: 00:45 Condition: Good
[2025-07-19 22:41] LABS: Hematocrit 37.3 % (42.0-54.0); Hemoglobin 12.2 g/dL (14.0-18.0); Immature Granulocytes Abs Auto 0.05 10^3/uL (0.00-0.03); Immature Granulocytes Pct Auto 0.5 % (0.0-0.5); Lymphocytes Absolute Auto 0.9 10^3/uL (1.2-3.8); Mean Corpuscular HGB Conc 32.7 g/dL (29.9-35.2); Mean Corpuscular Hemoglobin 31.9 pg (25.9-34.0); Mean Corpuscular Volume 97.4 fL (80.0-94.0); Platelet Count 145 10^3/uL (150-450); Red Blood Count 3.83 10^6/uL (4.70-6.10); White Blood Count 9.9 10^3/uL (4.0-11.0)
[2025-07-19 23:00] LABS: INR 1.84; Prothrombin Time 18.4 sec (9.0-11.6)
[2025-07-19 23:07] LABS: Alanine Aminotransferase 32 U/L (16-63); Albumin Globulin Ratio 0.6; Albumin Level 2.9 g/dL (3.4-5.0); Alkaline Phosphatase 99 U/L (46-116); Anion Gap 13.2; Aspartate Amino Transferase 21 U/L (15-37); Blood Urea Nitrogen 31.0 mg/dL (7.0-18.0); Calcium 8.4 mg/dL (8.5-10.1); Carbon Dioxide 23.6 mmol/L (21.0-32.0); Chloride 103 mmol/L (98-107); Estimated GFR (African America >60 (>=60 mL/min/1.73m^2); Estimated GFR (Non-African Ame 53 (>=60 mL/min/1.73m^2); Globulin 4.7 g/dL; Glucose 153 mg/dL (74-106); Potassium 3.8 mmol/L (3.5-5.1); Sodium 136 mmol/L (136-145); Total Protein 7.6 g/dL (6.4-8.2)
[2025-07-19 23:08] LABS: NT Pro B Type Natriuretic Pept 6959.0 pg/mL (<=1800.0)
--- NOTE | 2025-07-19 23:11 | CT_ITS ---
[address] [address] Patient Name: JULIETTE MORROW MRN: [id number] date: 1940 Sex: M Assigned Patient Location: ER Current Patient Location: Accession/Order Number: [id number] Exam Date: 07/19/2025 23:22 Report Date: 07/19/2025 23:52 At the request of: WHITNEY DOE MD Procedure: CT angio chest CT ANGIOGRAM OF THE CHEST, PULMONARY EMBOLISM PROTOCOL: CLINICAL INFORMATION: Hemoptysis cough for one week TECHNIQUE: Following intravenous injection of contrast CT scans of the chest were obtained using pulmonary embolism protocol. Coronal and sagittal reconstructed images, as well as volume rendered CT pulmonary angiographic images were also submitted.The CT exam was performed using one or more of the following dose reduction techniques: Automated exposure control, adjustment of the MA and/or Kv according to patient size, or use of the iterative reconstruction technique. FINDINGS: Pulmonary Vasculature: Negative for Central to proximal segmental branch emboli. Mediastinum : Cardiomegaly. Coronary disease. Small pericardial effusion. Bronchial wall thickening noted. Mild mucosal plugging notably left lower lobe. No bulky mediastinal or hilar adenopathy. Aorta is nonaneurysmal with qvdy-vs-drrzhyjk plaque. Lungs: Small bilateral effusions left greater than right. Left lower lobe parenchymal opacity identified somewhat tubular 2.8 x 2.6 x 7.2 cm in size. Otherwise multifocal left basilar opacity noted. No pneumothorax. Upper abdomen: Upper abdominal images noncontributory. Soft tissue/bones: Degenerative changes. Multilevel ankylosis of the thoracic spine. CT/CT angio chest IMPRESSION: Negative for Central to proximal segmental branch pulmonary embolism. Bibasilar disease and effusions probably left-sided. Ovoid consolidated opacity within the medial left lower lobe noted This appears be new from prior examination and may have been obscured by bilateral effusions. Recommend follow-up to resolution. Impression dictated by: Karri Way M.D. 07/19/2025 11:52 PM Dictation Location: [place] [address] Electronically authenticated by: [id number] Y Date: 07/19/2025 23:52
--- NOTE | 2025-07-19 23:13 | PC.NURSE ---
this patient and his son updated of the new order for CT chest by Dr Ren
[2025-07-19 23:16] LABS: Lactate/Lactic Acid 1.4 mmol/L (0.4-2.0)
--- OUTSIDE RECORDS SUMMARY | 2025-07-19 23:25 | XMS_ITS | Encounter Summary ---
Author Organization [facility] Address [id number] [address] [place] [address] Care Team Providers Care Upfitter Name Role Phone Mable Corona MD Primary Care Provider [phone] Encounter Details DateTypeDepartmentCare Team (Latest Contact Info)Gwxdmzwiibw83/21/2025 11:25 PM EDTAncillary Procedure [facility] [address] [place] [id number] Pain Social History Tobacco UseTypesPacks/DayYears UsedDateSmoking Tobacco: Never AssessedPHQ-2 AnswerDate RecordedTotal [id number] RecordedQ1: How often do you have a drink containing alcohol?Never07/20/2025Q2: How many drinks containing alcohol do you have on a typical day when you are drinking?Patient does not drink07/20/2025Q3: How often do you have six or more drinks on one occasion?Never07/20/2025PRAPARE - TransportationAnswerDate RecordedIn the past 12 months, has lack of transportation kept you from medical appointments or from getting medications?No07/20/2025In the past 12 months, has lack of transportation kept you from meetings, work, or from getting things needed for daily living?No07/20/2025HC UtilitiesAnswerDate RecordedIn the past 12 months has the electric, gas, oil, or water company threatened to shut off services in your home?No07/20/2025Housing InstabilityAnswerDate RecordedAre you worried or concerned that in the next two months you may not have stable housing that you own, rent or stay in as a part of a household?No07/20/2025Hunger ScreeningAnswer Date RecordedWithin the past 12 months we worried whether our food would run out before we got money to buy more.Never True07/20/2025Within the past 12 months the food we bought just didn't last and we didn't have money to get more.Never True07/20/2025Sex and Gender InformationValueDate RecordedSex Assigned at Not on fileLegal BmcTmed72/18/2021 11:16 AM ESTGender IdentityNot on fileSexual OrientationNot on filedocumented as of this encounter Plan of Treatment Not on file documented as of this encounter Procedures Procedure NamePriorityDate/TimeAssociated DiagnosisCommentsCT CTA CHESTRoutine 07/19/2025 11:25 PM EDT Pain documented in this encounter Results * CT angiogram chest (07/19/2025 11:25 PM EDT)Specimen (Source)Anatomical Location / LateralityCollection Method / VolumeCollection TimeReceived Time Narrative Authorizing ProviderResult TypeResult StatusScanning Provider ExternalIMG CT ORDERABLESFinal Result documented in this encounter Visit Diagnoses Diagnosis Pain Generalized pain documented in this encounter Care Teams Team MemberRelationshipSpecialtyStart DateEnd Date Mable Corona MD PCP - GeneralFamily Lkvuxykd87/18/2110documented as of this encounter
[2025-07-20] VITALS (28 sets, daily range): BP systolic 91–125; BP diastolic 57–77; PULSE 63–120; TEMP 36.6–36.9; O2SAT 92–98; BMI 20.4
[2025-07-20] MEDS: FUROSEMIDE 40 MG/4 ML VIAL IVP (01:10)
[2025-07-20] MEDS: GUAIFENESIN 200 MG/DEXTROMETHORPHAN 20 MG 10 ML UNIT DOSE CUP PO (01:10)
[2025-07-20] MEDS: IPRATROPIUM/ALBUTEROL SULFATE 3 ML AMPUL.NEB IH (01:16)
[2025-07-20] MEDS: AZITHROMYCIN 500 MG in 0.9 % SODIUM CHLORIDE 250 ML 250 MG IV (02:04)
--- OUTSIDE RECORDS SUMMARY | 2025-07-20 02:26 | XMS_ITS | CCD ---
Author Organization [facility] Care Team Providers Care Party Plan Dealer Name Role Phone Yves Sanford Unavailable MD [...] Primary Care Unavailable DEBRA OLIVEIRALAS Admitting Unavailable DEBRA OLIVEIRALAS Attending Unavailable KEITH OLIVEIRA Consulting Unavailable DORIAN [...] Care Unavailable Madyson Galvez MD Emergency Provider Elizabeth (Clinic) Karoline HERNÁNDEZ Primary Care Provider Elizabeth (Clinic)Karoline Primary Care UnavailMadyson Lopez Attending Unavailable Madyson Galvez Admitting Unavailable Allergies Allergy ClassificationReported Allergen(s)Allergy TypeDate of OnsetReaction(s) Facility (2 sources)Ondansetron; Translations: [ondansetron]Drug Rccthno21-24-7431Oqsuqq [facility] (1 source)OndansetronDrug Tisltxz08-84-6771[facility]Ch[facility] Medications Current Medications MedicationDrug Class(es)DatesSig (Normalized)Sig (Original)atorvastatin 10 mg oral tablet (1 source)HMG-CoA Reductase InhibitorStart: 32-10-3634ifxt 1 tablet by mouth once dailyAtorvastatin 10 mg tablet Active 10 MG PO Daily July 04, 2025 12:00am Complies with drug therapybrimonidine tartrate 2 mg/ml / timolol 5 mg/ml ophthalmic solution (1 source)alpha-Adrenergic Agonist, beta-Adrenergic BlockerStart: 07-04-2025 Brimonidine-Timolol 0.2-0.5 % drops Active 1 DROPS EYE-BOTH Daily July 04, 2025 12:00am Complies with drug therapyempagliflozin 25 mg oral tablet (1 source)Sodium-Glucose Cotransporter 2 InhibitorStart: 27-62-5480vbmi 1 tablet by mouth once dailyEmpagliflozin 25 mg tablet Active 12.5 MG PO Daily July 04, 2025 12:00am Complies with drug therapyfinasteride 5 mg oral tablet (1 source)5-alpha Reductase InhibitorStart: 03-46-8551rrxy 1 tablet by mouth once dailyFinasteride 5 mg tablet Active 5 MG PO Daily July 04, 2025 12:00am Complies with drug therapyfurosemide 40 mg oral tablet (1 source)Loop DiureticStart: 43-82-7135fhaj 1 tablet by mouth once daily Furosemide (Lasix) 40 mg tablet Active 40 MG PO daily July 04, 2025 12:00am Complies with drug therapyHydrophilic ointment (1 source)Start: 43-40-7583Ubjocmtzjtv ointment Active 1 APPLIC TOPICAL Daily as needed for dry skin July 04, 2025 12:00amComplies with drug therapy latanoprost 0.05 mg/ml ophthalmic solution (1 source)Prostaglandin AnalogStart: 67-85-5928jgly 1 drop(s) into the eye(s) once daily in the eveningLatanoprost 0.005 % drops Active 1 DROPS EYE-BOTH Every evening July 04, 2025 12:00am Complies with drug therapylevothyroxine sodium 0.075 mg oral tablet (1 source)l-ThyroxineStart: 24-71-7053rfkp 1 tablet by mouth once daily Levothyroxine (Euthyrox) 75 mcg tablet Active 75 MCG PO Daily July 04, 2025 12:00am Complies with drug therapylidocaine 0.05 mg/mg medicated patch (1 source)Antiarrhythmic, Amide Local AnestheticStart: 26-14-3144dnjya 1 dose topically once dailyLidocaine (Dermacinrx Lidocan) 5 % adhesive patch,medicated Active 2 PATCH TOPICAL Daily July 04, 2025 12:00am leave on most painful area for up to 12 hrs Complies with drug therapylisinopril 2.5 mg oral tablet (1 source)Angiotensin Converting Enzyme InhibitorStart: 71-86-4725kzhw 1 tablet by mouth once dailyLisinopril 2.5 mg tablet Active 2.5 MG PO Daily July 04, 2025 12:00am Complies with drug therapyloperamide hydrochloride 2 mg oral tablet (2 sources)Opioid Agonisttake 1 tablet by mouth every six hoursImodium A-D 2 MG 1 tablet as needed Orally Four times a day Activemetoclopramide 5 mg oral tablet (1 source)Dopamine-2 Receptor AntagonistStart: 43-02-6946ezjy 1 tablet by mouth three times dailyMetoclopramide Hcl 5 mg tablet Active 5 MG PO Three times daily July 04, 2025 12:00am Complies with drug flgqzoi43 hr metoprolol succinate 100 mg extended release oral tablet (1 source)beta-Adrenergic BlockerStart: 35-53-5255Sdyvecdieh Succinate (Toprol Xl) 100 mg tablet extended release 24 hr Active 150 MG PO Daily July 04, 2025 12:00am Complies with drug therapypantoprazole 40 mg delayed release oral tablet (1 source)Proton Pump InhibitorStart: 03-19-7249appv 1 tablet by mouth once dailyPantoprazole 40 mg tablet,delayed release (DR/EC) Active 40 MG PO Daily July 04, 2025 12:00am Complies with drug therapyspironolactone 25 mg oral tablet (1 source)Aldosterone AntagonistStart: 26-31-0033nkbo 1 tablet by mouth once dailySpironolactone 25 mg tablet Active 25 MG PO Daily July 04, 2025 12:00am Complies with drug therapytamsulosin hydrochloride 0.4 mg oral capsule (1 source)alpha-Adrenergic BlockerStart: 09-70-0613lfzz 1 capsule by mouth once dailyTamsulosin 0.4 mg capsule Active 0.4 MG PO Daily July 04, 2025 12:00am Complies with drug therapywarfarin sodium 2.5 mg oral tablet (5 sources)Vitamin K AntagonistStart: 21-63-7005tlzj 1 tablet by mouth once dailyWarfarin 2.5 mg tablet Active 2.5 MG PO Daily July 04, 2025 12:00am Complies with drug therapyCoumadin Active Completed/Discontinued Medications MedicationDrug Class(es)DatesSig (Normalized)Sig (Original)ondansetron 4 mg disintegrating oral tablet (4 sources)Serotonin-3 Receptor AntagonistStart: 07-09-2022 End: 48-90-0966ktjy 1 tablet by mouth every eight hours as needed for nausea and vomitingOndansetron 4 mg tablet,disintegrating Discontinued 4 MG PO Q8H as needed for nausea and vomiting 62 July 09, 2022 12:00am January 10, 2023 1:14pmStart: 02-99-8215mnoa 1 tablet by mouth every twenty-four hoursOndansetron HCl 4 MG 1 tablet Orally Once a day for 30 day(s) Apr, Active Problems Active Problems Problem ClassificationProblemDateDocumented DateEpisodic/ChronicAcute and unspecified renal failure (3 sources)Injury of kidney; Translations: [Acute kidney failure, unspecified] Onset: 648081-29-8400TzqarbkmIwlupva on above:Problem List clean-up per request of Phys. EHR CmteBacterial infection; unspecified site (1 source)Helicobacter pylori [H. pylori] as the cause of diseases classified elsewhere; Translations: [H PYLORI CAUSE OF DZ CLASS ELSW]Onset: 02-11-2023 EpisodicBiliary tract disease (1 source)Calculus of gallbladder without cholecystitis without obstruction; Translations: [CALCU GB W/O CHOLECYST W/O OBST]Onset: 09-28-5857SrofrcrbYdnxiby dysrhythmias (1 source)Unspecified atrial fibrillation; Translations: [UNSPECIFIED ATRIAL FIBRILLATION]Onset: 32-12-1184CwldffiZnminlu kidney disease (1 source)Chronic kidney disease; Translations: [Chronic kidney disease, unspecified]16-67-1194McicmryErcmmkollt heart failure; nonhypertensive (1 source)Heart failure, unspecified; Translations: [HEART FAILURE UNSPECIFIED] Onset: 00-02-9699YnetanmPjclyhqp mellitus with complications (1 source)Type 2 diabetes mellitus with diabetic autonomic (poly)neuropathy; Translations: [TYPE 2 DM W/DIAB AUTONOM NEUROPATHY]Onset: 46-09-9031Gtdtqfo Diabetes mellitus without complication (1 source)Type 2 diabetes mellitus without complications; Translations: [TYPE 2 DM WITHOUT COMPLICATIONS]Onset: 94-52-2953EuzomklCijilkyo of white blood cells (1 source)Elevated white blood cell count, unspecified; Translations: [ELEVATED WHITE BLOOD CELL COUNT UNS]Onset: 86-67-2939YsasowuSjtknckth of lipid metabolism (2 sources)Pure hypercholesterolemia, unspecified; Translations: [Hyperlipidemia, unspecified]Onset: 12-32-0563DbwldtlH Codes: Adverse effects of medical drugs (1 source)Adverse effect of anticoagulants, initial encounter; Translations: [ADVERSE EFFECT ANTICOAG INITIALENC]Onset: 42-06-2300FkbshqpxZeutjskxv hypertension (1 source)Essential (primary) hypertension; Translations: [ESSENTIAL PRIMARY HYPERTENSION]Onset: 10-83-2191LrrvmllPosds and electrolyte disorders (2 sources)Hypo-osmolality and hyponatremia; Translations: [Dehydration]Onset: 50-95-1887BfcaiaoaMbfrhazax and duodenitis (1 source)Gastritis, unspecified, without bleeding; Translations: [GASTRITIS UNS WITHOUT BLEEDING]Onset: 99-26-3977AfqfzxksSkmbjhie (1 source)Unspecified glaucoma; Translations: [UNSPECIFIED GLAUCOMA]Onset: 96-93-4454NpwohlmMbypmuzobtq of prostate (1 source)Benign prostatic hyperplasia without lower urinary tract symptoms; Translations: [BENIGN PROSTATIC HYPRPLASIA WO LUTS]Onset: 04-93-0650Icgvofg Hypertension with complications and secondary hypertension (1 source)Hypertensive heart disease with heart failure; Translations: [HTN HEART DISEASE W/HEART FAIL]Onset: 69-00-9926GrvaogdGrjynidxjp obstruction without hernia (4 sources)Unspecified intestinal obstruction, unspecified as to partial versus complete obstruction; Translations: [Partial intestinal obstruction, unspecified as to cause]Onset: 14-64-8581XblbvczbZiizcf and vomiting (6 sources)Nausea; Translations: [Nausea and vomiting]Onset: 05-23-2022 Resolved: 58-49-6403ExleuuhxWflxngy on above:Problem List clean-up per request of Phys. EHR CmteNoninfectious gastroenteritis (1 source)Noninfective gastroenteritis and colitis, unspecified; Translations: [NONINFECTIVE GE AND COLITIS UNS]Onset: 64-43-1569VzmrkohjExgxq aftercare (1 source)FDC (current) use of anticoagulants; Translations: [SENIOR CARE CURRNT USE ANTICOAGULANTS]Onset: 60-25-2522MqwkypqfYupau aftercare (1 source)Other intermediate card tender (current) drug therapy; Translations: [OTH SENIOR CARE CURRENT DRUG THERAPY]Onset: 21-85-0788OvxehxubVlyra circulatory disease (6 sources)Hypotension, unspecified; Translations: [HYPOTENSION UNSPECIFIED] Onset: 51-76-1755MvazovuvVeeur circulatory disease (1 source)Low blood pressure; Translations: [Hypotension, unspecified]07-04-2025 EpisodicOther disorders of stomach and duodenum (1 source)Gastroparesis; Translations: [GASTROPARESIS]Onset: 92-11-7568Tvrehpjx Other gastrointestinal disorders (3 sources)Altered bowel function; Translations: [Change in bowel habit]Episodic Other gastrointestinal disorders (5 sources)Diarrhea; Translations: [Diarrhea, unspecified]85-39-1783Vitxtqec Comment on above:Problem List clean-up per request of Phys. EHR CmteOther injuries and conditions due to external causes (2 sources)Injury of head; Translations: [Unspecified injury of head, initial encounter]12-48-3408ZpbmacnuJlobijn on above:Problem List clean-up per request of Phys. EHR CmteOther injuries and conditions due to external causes (1 source)Systemic inflammatory response syndrome (SIRS) of non-infectious origin without acute organ dysfunction; Translations: [SIRS NON-INF ORIG NO AC ORGAN DYSF]Onset: 03-09-3850EfcjcuxuRcyqj nutritional; endocrine; and metabolic disorders (4 sources)Weight loss; Translations: [Abnormal weight loss]EpisodicOther screening for suspected conditions (not mental disorders or infectious disease) (1 source)Abnormal coagulation profile; Translations: [ABNORMAL COAGULATION PROFILE]Onset: 20-39-6697DjqiuhpuVnjnewcj codes; unclassified (3 sources)History of excision of intestinal structure; Translations: [Acquired absence of other specified parts of digestive tract]EpisodicResidual codes; unclassified (2 sources)Acquired absence of other specified parts of digestive tract; Translations: [ACQ ABSENCE OTH PART DIGESTV TRACT]Onset: 02-21-2022 Resolved: 79-58-5091QnrdvebuQjwhhrys codes; unclassified (1 source)Pain, unspecified; Translations: [Pain, unspecified]Onset: 07-06-2024 EpisodicScreening and history of mental health and substance abuse codes (1 source)Personal history of nicotine dependence; Translations: [PERSONAL HISTORY OF NICOTINE DEPEND]Onset: 67-96-5229MbxvuqctElmtcfnhbsre (1 source)Chronic atrial fibrillation, unspecified; Translations: [CHRONIC ATRIAL FIBRILLATION UNSPEC]Onset: 34-83-5466Rdlbeqvgubwk (1 source)ACIDOSIS UNSPECIFIED; Translations: [ACIDOSIS UNSPECIFIED]Onset: 37-09-6651Lsvkzmyrxufl (1 source)CONTACT W/AND (SUSP) EXPOS COVID-19; Translations: [CONTACT W/AND (SUSP) EXPOS COVID-19]Onset: 02-11-2023 Past or Other Problems Problem ClassificationProblemDateDocumented DateEpisodic/ChronicOther gastrointestinal disorders (3 sources)Diarrhea, unspecifiedOnset: 11-22-2021 Resolved: 28-43-7094DezcadpeWjrdx gastrointestinal disorders (1 source)Change in bowel habitOnset: 02-21-2022 Resolved: 30-15-5436GhmrupxsDdgfn nutritional; endocrine; and metabolic disorders (2 sources)Abnormal weight lossOnset: 11-22-2021 Resolved: 98-80-8310Epposivg Results Test NameValueInterpretationReference RangeFacilityAlanine aminotransferase [Enzymatic activity/volume] in Serum or PlasmaOrdered By: Madyson Galvez on 87-47-1991MGG [Catalytic activity/Vol]29 U/LNormal7-52[facility] SystemComment on above:Performed By: #### BNP, HS TROP, CUBLD, CMP, PT, LACTIC, CBC #### [facility] [address] [place] [address] USAAlbumin [Mass/volume] in Serum or Plasma by Bromocresol green (BCG) dye binding methoOrdered By: Madyson Galvez on 10-93-9333Lqtrvqr BCG dye [Mass/Vol]3.8 g/dL3.5-5.7FNationwide Children's HospitalAlkaline phosphatase [Enzymatic activity/volume] in Serum or PlasmaOrdered By: Madyson Galvez on 33-55-6354ESZ [Catalytic activity/Vol]90 U/QPsqqak26-385AybkvexfqBlanchard Valley Health SystemComment on above:Performed By: #### BNP, HS TROP, CUBLD, CMP, PT, LACTIC, CBC #### [facility] [address] [place] [address] USAAppearance of UrineOrdered By: Madyson Galvez on 90-14-7727Rquusrbrje (U)ClearNormalClearBlanchard Valley Health SystemComment on above:Order Comment: Name Collection Type:: Clean-Voided MidstreamPerformed By: #### BNP, HS TROP, CUBLD, CMP, PT, LACTIC, CBC #### [facility] [address] [place] [address] USAAspartate aminotransferase [Enzymatic activity/volume] in Serum or PlasmaOrdered By: Madyson Galvez on 26-22-4117QOO [Catalytic activity/Vol]27 U/YUsphqy59-84LpvwvcbtbBlanchard Valley Health SystemComment on above: Performed By: #### BNP, HS TROP, CUBLD, CMP, PT, LACTIC, CBC #### [facility] [address] [place] [address] USABNP ser/plasOrdered By: Madyson Galvez on 07-04-2025 Natriuretic peptide B (Bld) [Mass/Vol]267.0 pg/mLHigh5-100[facility] SystemComment on above:Result Comment: PERFORMED BY: [place] [id number] PATHOLOGIST ROOM CLERK REYMUNDO POOLE M.D.Performed By: #### BNP, HS TROP, CUBLD, CMP, PT, LACTIC, CBC #### [facility] [address] [place] [address] USABasophils [#/volume] in Blood by Automated countOrdered By: Madyson Galvez on 26-19-6002Xlmtlwlzv (Bld) [#/Vol]0.0 10*3/uLNormal0.0-0.2 [facility] SystemComment on above:Result Comment: PERFORMED BY: [place] [address] PATHOLOGIST ROOM CLERK REYMUNDO POOLE M.D.Performed By: #### BNP, HS TROP, CUBLD, CMP, PT, LACTIC, CBC #### [place] [address] USABasophils/100 leukocytes in Blood by Automated count Ordered By: Madyson Galvez on 79-20-5738Xjqdwntjx/100 WBC (Bld)0.4 %Normal. [facility] SystemComment on above:Performed By: #### BNP, HS TROP, CUBLD, CMP, PT, LACTIC, CBC #### [place] [address] USABilirubin Test strip Ql (U)Ordered By: Madyson Galvez on 51-08-2487Aikdannvc Ql (U)NegativeNegativeBlanchard Valley Health System Bilirubin.total [Mass/volume] in Serum or PlasmaOrdered By: Madyson Galvez on 69-78-1249Bwmibuosf [Mass/Vol]0.7 mg/dLNormal0.3-1.0[facility] SystemComment on above:Performed By: #### BNP, HS TROP, CUBLD, CMP, PT, LACTIC, CBC #### [place] [address] USABlood Cultureon 00-65-3067Vdmicbah identified Cx Nom (Bld) NO GROWTH 5 DAYS PERFORMED BY: [place] [address] PATHOLOGIST ROOM CLERK REYMUNDO POOLE M.D.NormalThe [facility] Physician GroupComment on above: Performed By: #### BNP, HS TROP, CUBLD, CMP, PT, LACTIC, CBC #### [facility] [address] [place] [address] USABacteria identified Cx Nom (Bld)NO GROWTH 5 DAYS PERFORMED BY: [place] [address] PATHOLOGIST ROOM CLERK REYMUNDO POOLE M.D.[facility] Physician GroupComment on above: Performed By: #### BNP, HS TROP, CUBLD, CMP, PT, LACTIC, CBC #### [place] [address] USACalcium [Mass/volume] in Serum or PlasmaOrdered By: Madyson Galvez on 23-07-7747Tebkfhk [Mass/Vol]9.0 mg/dLNormal8.6-10.3FNationwide Children's HospitalComment on above:Performed By: #### BNP, HS TROP, CUBLD, CMP, PT, LACTIC, CBC #### [place] [address] USACarbon dioxide, total [Moles/volume] in Serum or Plasma Ordered By: Madyson Galvez on 99-10-8047BL7 [Moles/Vol]21.6 mmol/LNormal 21.0-31.0[facility] SystemComment on above:Performed By: #### BNP, HS TROP, CUBLD, CMP, PT, LACTIC, CBC #### [place] [id number] USAChloride [Moles/volume] in Serum or PlasmaOrdered By: Madyson Galvez on 47-19-4768Hwrylhcj [Moles/Vol]107 mmol/RJfbuxb65-797SohelcoznBlanchard Valley Health SystemComment on above:Performed By: #### BNP, HS TROP, CUBLD, CMP, PT, LACTIC, CBC #### [place] [id number] USAColor of Urine by AutoOrdered By: Madyson Galvez on 80-53-8795Khcwb (U)YellowNormalYellowBlanchard Valley Health SystemComment on above:Order Comment: Name Collection Type:: Clean-Voided MidstreamPerformed By: #### BNP, HS TROP, CUBLD, CMP, PT, LACTIC, CBC #### [place] [address] USAComplete Blood Count Auto Diffon 24-53-7032Fhnl Corpuscular HGB Conc33.3 g/xWKiwblx16.5-35.6The [facility] Physician GroupComment on above:Performed By: #### BNP, HS TROP, CUBLD, CMP, PT, LACTIC, CBC #### [place] [address] USAMonocytes/100 WBC (Bld)18.67 %Normal0.00-20.00The [facility] Physician GroupComment on above:Performed By: #### BNP, HS TROP, CUBLD, CMP, PT, LACTIC, CBC #### [place] [address] USANRBC%0.1 /100{WBC}Normal0-0.5The [facility] Comment on above:Performed By: #### BNP, HS TROP, CUBLD, CMP, PT, LACTIC, CBC #### [place] [address] USAWhite Blood Count7.7 [CFU]/mLNormal4.1-10.5The [facility] Physician GroupComment on above:Performed By: #### BNP, HS TROP, CUBLD, CMP, PT, LACTIC, CBC #### [place] [address] USAComprehensive Metabolic Panelon 05-78-0517Puizhsz [Mass/Vol]3.8 g/dLNormal3.5-5.7The [facility] Physician [facility]mmc GrenadaComment on above: Performed By: #### BNP, HS TROP, CUBLD, CMP, PT, LACTIC, CBC #### [place] [address] USACreatinine Clr Calc Zuiudbez03.54NormalThe [facility] Physician GroupComment on above:Result Comment: PERFORMED BY: [place] [address] PATHOLOGIST ROOM CLERK REYMUNDO POOLE M.D.Performed By: #### BNP, HS TROP, CUBLD, CMP, PT, LACTIC, CBC #### [facility] [address] [place] [id number] USAGFR/1.73 sq M.predicted MDRD (S/P/Bld) [Vol rate/Area] 59.632 mL/min/{1.73_m2}NormalThe [facility] Physician GroupComment on above: Performed By: #### BNP, HS TROP, CUBLD, CMP, PT, LACTIC, CBC #### [facility] [address] [place] [address] USACreatinine [Mass/volume] in Serum or PlasmaOrdered By: Madyson Galvez on 65-46-1236Knjoyepgwl [Mass/Vol]1.20 mg/dLNormal0.70-1.30 [facility] SystemComment on above:Performed By: #### BNP, HS TROP, CUBLD, CMP, PT, LACTIC, CBC #### [facility] [address] [place] [id number] USAECG 12 lead ECGon 12-04-7124TTG 12 lead ECGPARKVIEW [facility] Main [place] [address] [place] [address] Electrocardiograph Report Signed Patient: Navin Christine MR#: [id number] : 1940 Acct:[id number] Age/Sex: 85 / M ADM Date: 07/04/25 Loc: ER Room: Type: [facility] ER Attending Dr: Ordering Provider: Madyson [...] branch block Confirmed by Madyson Galvez MD ([id number]) on 07/04/2025 3:00:33 PM Referred By: Electronically Signed By: Madyson Galvez MD Transcribed By: MUS Signed By Madyson Galvez MD 03/[address] [place] [address] Physician GroupECG 12 lead ECGPARKVIEW [facility] Main [place] [address] [place] [address] Electrocardiograph Report Signed Patient: Navin Christine SR MR#: [id number] : 1940 Acct:[id number] Age/Sex: 85 / M ADM Date: 07/04/25 Loc: ER Room: Type: [facility] ER Attending Dr: Ordering Provider: Madyson [...] branch block Confirmed by Madyson Galvez MD ([id number]) on 07/04/2025 3:00:49 PM Referred By: Electronically Signed By: Madyson Galvez MD Transcribed By: MUS Signed By Madyson Galvez MD 03/[address] [place] [address] Physician GroupEosinophils [#/volume] in Blood by Automated countOrdered By: Madyson Galvez on 67-81-0125Bivlebwefxv (Bld) [#/Vol] 0.1 10*3/uLNormal0.0-0.45[facility] SystemComment on above: Performed By: #### BNP, HS TROP, CUBLD, CMP, PT, LACTIC, CBC #### [facility] [address] [place] [address] USAEosinophils/100 leukocytes in Blood by Automated count Ordered By: Madyson Galvez on 35-36-8029Funqnykzczd/100 WBC (Bld)1.6 %Normal. [facility] SystemComment on above:Performed By: #### BNP, HS TROP, CUBLD, CMP, PT, LACTIC, CBC #### [facility] [address] [place] [address] USAErythrocyte distribution width [Ratio] by Automated count Ordered By: Madyson Galvez on 66-50-2379Iydmfexoirf distribution width (RBC) [Ratio]16.3 %High12.0-14.8[facility] SystemComment on above: Performed By: #### BNP, HS TROP, CUBLD, CMP, PT, LACTIC, CBC #### [facility] [address] [place] [address] USAErythrocytes [#/volume] in Blood by Automated countOrdered By: Madyson Galvez on 00-11-6808HIG (Bld) [#/Vol]4.20 10*6/uLNormal3.90-5.60 [facility] SystemComment on above:Performed By: #### BNP, HS TROP, CUBLD, CMP, PT, LACTIC, CBC #### [facility] [address] [place] [address] USAGlomerular filtration rate [Volume Rate/Area] in Serum, Plasma or Blood by CreatinineOrdered By: Madyson Galvez on 93-08-0770Cfspwvzczg filtration rate [Volume Rate/Area] in Serum, Plasma or Blood by Mvlxtqmihx84.632 mL/MinBlanchard Valley Health SystemGlucose [Mass/volume] in Serum or Plasma Ordered By: Madyson Galvez on 73-15-5099Phfiams [Mass/Vol]110 mg/eMUxlb28-046 [facility] SystemComment on above:ADA recommended reference rangeRandom Glucose Reference [...] CMP, PT, LACTIC, CBC #### [facility] [address] [place] [address] USAGlucose [Mass/volume] in Urine by Test stripOrdered By: aMdyson Galvez on 96-69-6664Jgawbrj Test strip (U) [Mass/Vol]>=1000 mg/dLHigh NormalBlanchard Valley Health SystemHematocrit [Volume Fraction] of Blood by Automated countOrdered By: Madyson Galvez on 11-89-3771Lsncqudati (Bld) [Volume fraction]40.1 %Qpddtj49.8-50.0[facility] SystemComment on above: Performed By: #### BNP, HS TROP, CUBLD, CMP, PT, LACTIC, CBC #### [facility] [address] [place] [id number] USAHemoglobin Test strip Ql (U)Ordered By: Madyson Galvez on 14-42-1723Vpwnhogxgj Ql (U)NegativeNegativeBlanchard Valley Health System Hemoglobin [Mass/volume] in BloodOrdered By: Madyson Galvez on 07-04-2025 Hemoglobin (Bld) [Mass/Vol]13.4 g/aZBmeyld94.0-17.0[facility] SystemComment on above:Performed By: #### BNP, HS TROP, CUBLD, CMP, PT, LACTIC, CBC #### [facility] [address] [place] [id number] USAINR in Platelet poor plasma by Coagulation assayOrdered By: Madyson Galvez on 58-43-6010PND Coag (PPP) [Relative time]1.7 {INR}Normal [facility] SystemComment on above:INR Therapeutic Range A) Pre- and [...] heart valves: 3 - 4.5 PERFORMED BY: [place] [address] PATHOLOGIST ROOM CLERK REYMUNDO POOLE M.D.Performed By: #### BNP, HS TROP, CUBLD, CMP, PT, LACTIC, CBC #### [facility] [address] [place] [address] USAKetones [Presence] in Urine by Test stripOrdered By: Madyson Galvez on 05-57-6910Sofknmv Ql (U)NegativeNormalNegCleveland Clinic Fairview HospitalComment on above:Order Comment: Name Collection Type:: Clean-Voided MidstreamPerformed By: #### BNP, HS TROP, CUBLD, CMP, PT, LACTIC, CBC #### [facility] [address] [place] [address] USALactate [Moles/volume] in Serum or PlasmaOrdered By: Madyson Galvez on 05-48-6206Swvblgp [Moles/Vol]1.0 mmol/LNormal0.5-1.9[facility] SystemComment on above:Lactic Acid reference range has been updated to 0.5 1.9 mmol/L and the critical range of 2.0 or greater.Result Comment: Lactic Acid reference range has been updated to 0.5 ? 1.9 mmol/L and the critical range of 2.0 or greater. PERFORMED BY: [place] [address] PATHOLOGIST ROOM CLERK REYMUNDO POOLE M.D.Performed By: #### BNP, HS TROP, CUBLD, CMP, PT, LACTIC, CBC #### [place] [id number] USALeukocyte esterase [Presence] in Urine by Test strip Ordered By: Madyson Galvez on 67-90-7153Tkuxkybsh esterase Test strip Ql (U) NegativeNormalNegCleveland Clinic Fairview HospitalComment on above:Order Comment: Name Collection Type:: Clean-Voided MidstreamPerformed By: #### BNP, HS TROP, CUBLD, CMP, PT, LACTIC, CBC #### [facility] [address] [place] [address] USALeukocytes [#/volume] corrected for nucleated erythrocytes in Blood by Automated counOrdered By: Madyson Galvez on 64-29-7254JMQ corrected for nucl RBC Auto (Bld) [#/Vol]7.7 10*3/uL4.1-10.5FNationwide Children's HospitalLeukocytes [#/volume] in Blood by Automated countOrdered By: Madyson Galvez on 23-51-9766WOI (Bld) [#/Vol]7.7 10*3/uLNormal4.1-10.5FNationwide Children's HospitalComment on above:Performed By: #### BNP, HS TROP, CUBLD, CMP, PT, LACTIC, CBC #### [facility] [address] [place] [address] USALymphocytes [#/volume] in Blood by Automated countOrdered By: Madyson Galvez on 97-57-7862Mjojiewljbl (Bld) [#/Vol]0.7 10*3/uLLow1.00-4.8 [facility] SystemComment on above:Performed By: #### BNP, HS TROP, CUBLD, CMP, PT, LACTIC, CBC #### [facility] [address] [place] [id number] USALymphocytes/100 leukocytes in Blood by Automated count Ordered By: Madyson Galvez on 32-81-0265Jnffeaklhkw/100 WBC (Bld)9.3 %Normal. [facility] SystemComment on above:Performed By: #### BNP, HS TROP, CUBLD, CMP, PT, LACTIC, CBC #### [address] [Entitic mass] by Automated countOrdered By: Madyson Galvez on 29-56-4490EXB (RBC) [Entitic mass]31.8 vsMwuwvg43.5-35.2FNationwide Children's HospitalComment on above:Performed By: #### BNP, HS TROP, CUBLD, CMP, PT, LACTIC, CBC #### [facility] [address] [place] [id number] [facility] Auto (RBC) [Mass/Vol]Ordered By: Madyson Galvez on 94-52-9331IBYC (RBC) [Mass/Vol]33.3 g/dL32.5-35.6FNationwide Children's HospitalMCV [Entitic volume] by Automated countOrdered By: Madyson Galvez on 83-00-6409VFI (RBC) [Entitic vol]95.3 hZLjncdx56.5-101[facility] SystemComment on above:Performed By: #### BNP, HS TROP, CUBLD, CMP, PT, LACTIC, CBC #### [facility] [address] [place] [id number] USAMonocyte distribution width [Entitic volume] in Blood by AutomatedOrdered By: Madyson Galvez on 07-21-0257Jonlykvy distribution width Auto (Bld) [Entitic vol]18.67 %0.00-20.00[facility] Monocytes [#/volume] in Blood by Automated countOrdered By: Madyson Galvez on 50-07-1809Refqvwrgz (Bld) [#/Vol]0.9 10*3/uLHigh0.0-0.8[facility] SystemComment on above:Performed By: #### BNP, HS TROP, CUBLD, CMP, PT, LACTIC, CBC #### [facility] [address] [place] [address] USAMonocytes/100 leukocytes in Blood by Automated count Ordered By: Madyson Galvez on 94-87-3482Iukubirqc/100 WBC (Bld)12.0 %Normal. [facility] SystemComment on above:Performed By: #### BNP, HS TROP, CUBLD, CMP, PT, LACTIC, CBC #### [facility] [address] [place] [id number] USANeutrophils [#/volume] in Blood by Automated countOrdered By: Madyson Galvez on 30-50-9002Vvhwfnvmztu (Bld) [#/Vol]5.9 10*3/uLNormal 1.8-7.7FNationwide Children's HospitalComment on above:Performed By: #### BNP, HS TROP, CUBLD, CMP, PT, LACTIC, CBC #### [facility] [address] [place] [address] USANeutrophils/100 leukocytes in Blood by Automated count Ordered By: Madyson Galvez on 76-72-2744Uhxosmlijkj/100 WBC (Bld)76.7 %Normal. [facility] SystemComment on above:Performed By: #### BNP, HS TROP, CUBLD, CMP, PT, LACTIC, CBC #### [facility] [address] [place] [address] USANitrite Test strip Ql (U)Ordered By: Madyson Galvez on 00-81-9152Wqiflvu Ql (U)NegativeNegativeBlanchard Valley Health SystemNo Panel InformationOrdered By: Madyson Galvez on 25-58-0024Zvjqzisi Creatinine Clearance (Chem39.54[facility] SystemNucleated erythrocytes [Presence] in Blood by Automated countOrdered By: Madyson Galvez on 07-04-2025 Nucleated RBC Auto Ql (Bld)0.1 /100{WBC}0-0.5FNationwide Children's Hospital Platelet mean volume [Entitic volume] in Blood by Automated countOrdered By: Madyson Galvez on 18-93-6497Bsxmlgkq mean volume (Bld) [Entitic vol]8.4 fLNormal 6.6-10.1FNationwide Children's HospitalComment on above:Performed By: #### BNP, HS TROP, CUBLD, CMP, PT, LACTIC, CBC #### [facility] [address] [place] [address] USAPlatelets [#/volume] in Blood by Automated countOrdered By: Madyson Galvez on 28-90-8918Ozdxhskyy (Bld) [#/Vol]181 10*3/oIBmjrvx669-085 [facility] SystemComment on above:Performed By: #### BNP, HS TROP, CUBLD, CMP, PT, LACTIC, CBC #### [facility] [address] [phone] USAPotassium [Moles/volume] in Serum or PlasmaOrdered By: Madyson Galvez on 18-27-7105Gwnrapjcj [Moles/Vol]4.5 mmol/LNormal3.5-5.1 [facility] SystemComment on above:Performed By: #### BNP, HS TROP, CUBLD, CMP, PT, LACTIC, CBC #### [facility] [address] [phone] USAProtein Test strip (U) [Mass/Vol]Ordered By: Madyson Galvez on 15-91-8725Qlctuve (U) [Mass/Vol]NegativeNegativeBlanchard Valley Health SystemProtein [Mass/volume] in Serum or PlasmaOrdered By: Madyson Galvez on 45-39-9549Mukhpiv [Mass/Vol]7.5 g/dLNormal6.4-8.9[facility] SystemComment on above:Performed By: #### BNP, HS TROP, CUBLD, CMP, PT, LACTIC, CBC #### [facility] [address] [place] [address] USAProthrombin time (PT)Ordered By: Madyson Galvez on 32-90-8917RT Coag (PPP) [Time]19.1 sHigh9.0-12.9[facility] SystemComment on above:A hematocrit value greater than 55% may lead to inaccurate results in coagulation testing. Patientshaving hematocrit values >55% require a special collection tube for coagulation studies. Please contact the laboratory at [phone] for redraw instructions.Result Comment: A hematocrit value greater than 55% may lead to inaccurate results in coagulation testing. Patients having hematocrit values >55% require a special collection tube for coagulation studies. Please contact the laboratory at [phone] for redraw instructions.Performed By: #### BNP, HS TROP, CUBLD, CMP, PT, LACTIC, CBC #### [facility] [address] [place] [address] USASerum globulin measurement by calculation (mass/volume) Ordered By: Madyson Galvez on 64-99-8504Creppfsk (S) [Mass/Vol]3.7 g/dLNormal [facility] SystemComment on above:Performed By: #### BNP, HS TROP, CUBLD, CMP, PT, LACTIC, CBC #### [facility] [address] [place] [address] USASerum or plasma albumin/globulin mass ratioOrdered By: Madyson Galvez on 95-78-1919Bxtrtpx/Globulin [Mass ratio]1.0 {ratio}Normal [facility] SystemComment on above:Performed By: #### BNP, HS TROP, CUBLD, CMP, PT, LACTIC, CBC #### [place] [address] USASerum or plasma anion gap determinationOrdered By: Madyson Galvez on 14-48-4255Trvdt gap [Moles/Vol]9.9 mmol/LNormal6.0-15.0[facility] SystemComment on above:Performed By: #### BNP, HS TROP, CUBLD, CMP, PT, LACTIC, CBC #### [place] [address] USASodium [Moles/volume] in Serum or PlasmaOrdered By: Madyson Glavez on 33-16-4874Cjtzdd [Moles/Vol]134 mmol/DCrt794-161MijxztbpkBlanchard Valley Health SystemComment on above:Performed By: #### BNP, HS TROP, CUBLD, CMP, PT, LACTIC, CBC #### [place] [address] USASpecific gravity Test strip (U) [Rel density]Ordered By: Madyson Galvez on 74-37-8735Dhwzjfrt gravity (U) [Rel density]1.0191.001-1.030 [facility] SystemTroponin I High Sensitivityon 07-04-2025 Troponin I High Tnopilylkkv0Urvgyi3-57Zqr [facility] Physician GroupComment on above:Result Comment: The Troponin units of report have been changed to meet the Chest Pain Accreditation requirement, element EC5.M1l2. Troponin units are changed from pg/ml to ng/L. Also, the decimal is removed and results are in whole numbers. PERFORMED BY: [place] [address] PATHOLOGIST ROOM CLERK REYMUNDO POOLE M.D.Performed By: #### HS TROP #### [place] [address] USATroponin I High Pllxkvjijsx42Ypcxpa0-90Mti [facility] Physician GroupComment on above:Result Comment: The Troponin units of report have been changed to meet the Chest Pain Accreditation requirement, element EC5.M1l2. Troponin units are changed from pg/ml to ng/L. Also, the decimal is removed and results are in whole numbers. PERFORMED BY: [place] [address] PATHOLOGIST ROOM CLERK REYMUNDO POOLE M.D.Performed By: #### BNP, HS TROP, CUBLD, CMP, PT, LACTIC, CBC #### [facility] [address] [place] [address] USATroponin I.cardiac [Mass/volume] in Serum or Plasma by Detection limit <= 0.01 ng/mLOrdered By: Madyson Galvez on 34-60-8586Bvohnfgd I.cardiac DL <= 0.01 ng/mL [Mass/Vol]9 ng/L0-[facility] Comment on above:The Troponin units of report have been changed to meet the Chest Pain Accreditation requirement, element EC5.M1l2. Troponin units are changed from pg/ml to ng/L. Also, the decimal is removed and results are in whole numbers.Urea nitrogen [Mass/volume] in Serum or PlasmaOrdered By: Madyson Galvez on 23-92-4294Qlva nitrogen [Mass/Vol]32 mg/dLChestnut Ridge Center7-[facility] SystemComment on above:Performed By: #### BNP, HS TROP, CUBLD, CMP, PT, LACTIC, CBC #### [facility] [address] [place] [address] USAUrinalysison 90-49-2949Srltosblj,UrineNegativeNormal NegativeThe [facility] Physician GroupComment on above:Order Comment: Name Collection Type:: Clean-Voided MidstreamPerformed By: #### BNP, HS TROP, CUBLD, CMP, PT, LACTIC, CBC #### [facility] [address] [place] [address] USAGlucose Ql (U)>=NormalNormalThe [facility] Comment on above:Order Comment: Name Collection Type:: Clean-Voided Midstream Performed By: #### BNP, HS TROP, CUBLD, CMP, PT, LACTIC, CBC #### [facility] [address] [place] [address] USANitrite,UrineNegativeNormalNegativeThe [facility] Physician GroupComment on above:Order Comment: Name Collection Type:: Clean-Voided MidstreamPerformed By: #### BNP, HS TROP, CUBLD, CMP, PT, LACTIC, CBC #### [place] [address] USAOccult Blood,UrineNegativeNormalNegativeThe [facility] Physician GroupComment on above:Order Comment: Name Collection Type:: Clean- Voided MidstreamResult Comment: PERFORMED BY: [place] [address] PATHOLOGIST ROOM CLERK REYMUNDO POOLE M.D.Performed By: #### BNP, HS TROP, CUBLD, CMP, PT, LACTIC, CBC #### [place] [address] USAProtein,UrineNegativeNormalNegativeAdventhealth Lake Placid Physician GroupComment on above:Order Comment: Name Collection Type:: Clean-Voided MidstreamPerformed By: #### BNP, HS TROP, CUBLD, CMP, PT, LACTIC, CBC #### [place] [address] USASpecificy Plessis,Urine1.270Tshntv9.001-1.030The [facility] Physician GroupComment on above:Order Comment: Name Collection Type:: Clean- Voided MidstreamPerformed By: #### BNP, HS TROP, CUBLD, CMP, PT, LACTIC, CBC #### [place] [address] USAUrobilinogen,UrineNormalNormalNormalThe [facility] Physician GroupComment on above:Order Comment: Name Collection Type:: Clean- Voided MidstreamPerformed By: #### BNP, HS TROP, CUBLD, CMP, PT, LACTIC, CBC #### [place] [address] USAUrine Cultureon 14-74-1934Jbykuyvp identified Cx Nom (U) <9,000 colonies/ml mixed bacterial skin contaminants 2 Days PERFORMED BY: [place] [address] PATHOLOGIST ROOM CLERK REYMUNDO POOLE M.D.NormalThe [facility] Physician GroupComment on above: Performed By: #### BNP, HS TROP, CUBLD, CMP, PT, LACTIC, CBC #### [address] [address] USAUrobilinogen Test strip (U) [Mass/Vol]Ordered By: Madyson Galvez on 96-44-4291Beznmgcgvcar (U) [Mass/Vol]Normal mg/dLNormalBlanchard Valley Health SystemX-ray reportOrdered By: Nicola Woods on 88-39-2262Ejjpf reportPARKVIEW [facility] Main [address] [address] XRay Report Signed Patient: Navin Christine SR MR#: [id number] : 1940 Acct:[id number] Age/Sex: 85 / M ADM Date: 5 Loc: ER Room: Type: [facility] ER Attending Dr: Copies to: Madyson [...] Woods M.D. 07/04/2025 11:45 AM Dictation Location: [facility]--23 Transcribed By: [facility] 07/04/25 1145 Dictated By: Nicola Woods II, MD 07/04/25 1144 Signed By: 07/04/25 1145 [facility] Work Phone: xr chest 2V*on 44-01-4404HQ chest 2V*[facility] Main [place] [address] [place] [address] XRay Report Signed Patient: Navin Christine SR MR#: [id number] : 1940 Acct:[id number] Age/Sex: 85 / M ADM Date: 07/04/25 Loc: ER Room: Type: [facility] ER Attending Dr: Copies to: Madyson [...] Woods M.D. 07/04/2025 11:45 AM Dictation Location: [place] [address] Transcribed By: [facility] 07/04/25 1145 Dictated By: Nicola Woods II, MD 07/04/25 1144 Signed By: 07/04/25 1145[facility] Physician GrouppH of Urine by Test stripOrdered By: Madyson Galvez on 90-57-5611iT (U)5.0 [pH]Normal5.0-9.0[facility] SystemComment on above:Order Comment: Name Collection Type:: Clean- Voided MidstreamPerformed By: #### BNP, HS TROP, CUBLD, CMP, PT, LACTIC, CBC #### [facility] [address] [place] [address] USALab Reportson 98-19-4045Cvp Reports [id number]:127NormalFabien Grace Medical CenterTOOL CULTUREon 85-95-6535Miqbzcyqmtqoz CultureFinal reportNoMiami Valley HospitalComment on above:Performed By: #### CXSTOOL #### [facility] [address] [place] [address] Dr. Itzel Epstein coli Shiga Toxin EIANegativeNormalNegativeChillicothe Hospital Comment on above:Performed By: #### CXSTOOL #### [facility] [address] [place] [address] Dr. Itzel Cano 1CommentChildren's Hospital of ColumbusComment on above:Result Comment: No Salmonella or Shigella recovered.Performed By: #### CXSTOOL #### [facility] [address] [place] [address] Dr. Itzel Cano Comment: No Campylobacter species isolated. Salmonella/Shigella ScreenFinal Regional Medical CenterComment on above:Performed By: #### CXSTOOL #### [facility] [address] [place] [address] Dr. Itzel Goodwin 65-00-2166Jaftpllpfbv peptide B (Bld) [Mass/Vol]1615.0 pg/mLNormal<=1,800.0The [facility] HospitalComment on above:Performed By: #### OBIA #### [facility] [address] [place] [address] Dr. Itzel Cabrera AUTO DIFFon 94-08-8732FCAV #0.0 103/ulNormal0.0-0.1[facility]ic[facility] HospitalComment on above:Performed By: #### CXSTOOL #### [facility] [address] [place] [address] Dr. Itzel Renesophils/100 WBC (Bld)0.5 %Normal0.2-2.0[facility] Comment on above:Performed By: #### CXSTOOL #### [facility] [address] [place] [address] Dr. Itzel Terrazas #0.1 103/ulNormal0.0-0.7The [facility] HospitalCombronson methodist hospital on above: Performed By: #### CXSTOOL #### [facility] [address] [place] [address] Dr. Itzel Epsteinosinophils/100 WBC (Bld)1.4 %Normal0.9-7.0The [facility] Comment on above:Performed By: #### CXSTOOL #### [facility] [address] [place] [address] Dr. Itzel Epsteinrythrocyte distribution width (RBC) [Ratio]16.1 %Critically high 11.0-15.0The [facility] HospitalComment on above:Performed By: #### CXSTOOL #### [facility] [address] [place] [address] Dr. Itzel LermaHematocrit (Bld) [Volume fraction]44.1 %Rluzga23.0-54.0The [facility] HospitalComment on above:Performed By: #### CXSTOOL #### [facility] [address] [place] [address] Dr. Itzel LermaHemoglobin (Bld) [Mass/Vol]13.9 g/dLCritically low14.0-18.0The [facility] HospitalComment on above:Performed By: #### CXSTOOL #### [facility] [address] [place] [address] Dr. Itzel Ortega #0.03 10e3/ulNormal0.00-0.03The [facility] HospitalComment on above:Performed By: #### CXSTOOL #### [facility] [address] [place] [address] Dr. Itzel Ortega %0.5 %Normal0.0-0.5The [facility] HospitalComment on above: Performed By: #### CXSTOOL #### [facility] [address] [place] [address] Dr. Itzel MartinezMPH #0.9 103/ulCritically low1.2-3.8The [facility] Comment on above:Performed By: #### CXSTOOL #### [facility] [address] [place] [address] Dr. Itzel Martinezmphocytes/100 WBC (Bld)14.4 %Critically low20.5-60.0The [facility] HospitalComment on above:Performed By: #### CXSTOOL #### [facility] [address] [place] [address] Dr. Itzel Valdez DIFF REQNONormalThe [facility] HospitalComment on above: Performed By: #### CXSTOOL #### [facility] [address] [place] [address] Dr. Itzel Maria (RBC) [Entitic mass]27.5 efYrkjqg27.9-34.0The [facility] HospitalComment on above:Performed By: #### CXSTOOL #### [facility] [address] [place] [address] Dr. Itzel Maria (RBC) [Mass/Vol]31.5 g/nGZukoar05.9-35.2The [facility] HospitalComment on above:Performed By: #### CXSTOOL #### [facility] [address] [place] [address] Dr. Itzel Maria (RBC) [Entitic vol]87.3 iAOcvfqn88.0-94.0The [facility] HospitalComment on above:Performed By: #### CXSTOOL #### [facility] [address] [place] [address] Dr. Itzel Kirkland #0.7 103/ulNormal0.3-0.8The [facility] HospitalComment on above:Performed By: #### CXSTOOL #### [facility] [address] [place] [address] Dr. Itzel Mendozaocytes/100 WBC (Bld)10.6 %Normal1.7-12.0The [facility] Comment on above:Performed By: #### CXSTOOL #### [facility] [address] [place] [address] Dr. Itzel Watkins #4.6 103/ulNormal1.4-6.5The [facility] HospitalComment on above:Performed By: #### CXSTOOL #### [facility] [address] [place] [address] Dr. Itzel Hidalgoutrophils/100 WBC (Bld)72.6 %Mgroay09.0-75.0The [facility] HospitalComment on above:Performed By: #### CXSTOOL #### [facility] [address] [place] [address] Dr. Itzel Rosalet mean volume (Bld) [Entitic vol]10.3 fLNormal9.5-13.5The [facility] HospitalComment on above:Performed By: #### CXSTOOL #### [facility] [address] [place] [address] Dr. Itzel LermaPLT279 103/hwJrjdmf293-990Qol [facility] HospitalComment on above: Performed By: #### CXSTOOL #### [facility] [address] [place] [address] Dr. Itzel LermaRBC5.05 106/ulNormal4.70-6.10The [facility] HospitalComment on above:Performed By: #### CXSTOOL #### [facility] [address] [place] [address] Dr. Itzel LermaWBC6.3 103/ulNormal4.0-11.0The [facility] HospitalComment on above: Performed By: #### CXSTOOL #### [facility] [address] [place] [address] Dr. Itzel Torres CHEM 8 (BAS METB)on 85-84-8540Zrxqq gap [Moles/Vol]15.8 mmol/LNormalThe [facility] HospitalComment on above:Performed By: #### OBIA #### [facility] [address] [place] [address] Dr. Itzel LermaCalcium [Mass/Vol]9.1 mg/dLNormal8.5-10.1[facility] Comment on above:Performed By: #### OBIA #### [facility] [address] [place] [address] Dr. Itzel LermaChloride [Moles/Vol]102 mmol/HEonijp11-856Evm [facility] Comment on above:Performed By: #### OBIA #### [facility] [address] [place] [address] Dr. Yilan ChangCO2 [Moles/Vol]19.7 mmol/LCritically low21.0-32.0The [facility] HospitalComment on above:Performed By: #### OBIA #### [facility] [address] [address] [address] Itzel LermaCreatinine [Mass/Vol]1.76 mg/dLCritically high0.70-1.30The [facility] HospitalComment on above:Performed By: #### OBIA #### [facility] [address] [address] [address] Robbins ChangEGFR-AF SYNADWRZ65 mL/min/1.49y1Kcjtmtlfow low>=60The [facility] HospitalComment on above:Performed By: #### OBIA #### [facility] [address] [place] [address] Dr. Robbins ChangEGFR-NON AF QFAESDAC68 mL/min/1.78a5Pvbveqwcsz low>=60The [facility] HospitalComment on above:Performed By: #### OBIA #### [facility] [address] [place] [address] Dr. Itzel LermaGlucose [Mass/Vol]139 mg/dLCritically yxiv31-753Vfo [facility] HospitalComment on above:Performed By: #### OBIA #### [facility] [address] [place] [address] Dr. Itzel LermaPotassium [Moles/Vol]4.5 mmol/LNormal3.5-5.1The [facility] Comment on above:Performed By: #### OBIA #### [facility] [address] [place] [address] Dr. Itzel LermaSodium [Moles/Vol]133 mmol/LCritically ony520-002Sse [facility] HospitalComment on above:Performed By: #### OBIA #### [facility] [address] [place] [address] Dr. Itzel LermaUrea nitrogen [Mass/Vol]53.0 mg/dLCritically high7.0-18.0The [facility] HospitalComment on above:Performed By: #### OBIA #### [facility] [address] [place] [address] Dr. Itzel LermaUrea nitrogen/Creatinine [Mass ratio]30.1 mg/mgNoMiami Valley HospitalComment on above:Performed By: #### OBIA #### [facility] [address] [place] [address] Dr. Itzel LermaPROTIMEon 21-87-3905ENG Coag (PPP) [Relative time]3.98 {INR} NormalThe [facility] HospitalCombronson methodist hospital on above:Performed By: #### UA #### [facility] [address] [place] [address] Dr. Itzel Li GUIDELINESSEE BELOWChildren's Hospital of ColumbusComment on above:Result Comment: DESIRED INR: 2.0 - 3.0 CONDITIONS NOT LISTED BELOW 2.5 - 3.5 FOR PROSTHETIC HEART VALVE REPLACEMENT 2.5 - 3.5 RECURRENT THROMBOSIS Performed By: #### UA #### [facility] [address] [place] [address] Dr. Itzel LermaPT Coag (PPP) [Time]39.0 sCritically high9.0-11.6The [facility] on above:Performed By: #### UA #### [facility] [address] [place] [address] Dr. Itzel Irving 91-60-3861xDLE Coag (Bld) [Time]44.8 sCritically high 22.3-36.2[facility] on above:Performed By: #### UA #### [facility] [address] [place] [address] Dr. Itzel LermaXR KUB 1 VIEWon 65-56-3214NL KUB 1 VIEWEXAM: XR KUB 1 VIEW [...] Electronically authenticated by: WILSON JOHN Date: 2022-11-24 07:43[facility] AUTO DIFFon 42-87-9082PSUQ #0.0 103/ulNormal0.0-0.1The [facility] HospitalComment on above:Performed By: #### OSMO #### [facility] [address] [address] [address] Itzel LermaBasophils/100 WBC (Bld)0.3 %Normal0.2-2.0The [facility] Comment on above:Performed By: #### OSMO #### [facility] [address] [place] [address] Dr. Itzel Terrazas #0.1 103/ulNormal0.0-0.7The [facility] HospitalComment on above: Performed By: #### OSMO #### [facility] [address] [place] [address] Dr. Itzel Epsteinosinophils/100 WBC (Bld)1.6 %Normal0.9-7.0The [facility] Comment on above:Performed By: #### OSMO #### [facility] [address] [place] [address] Dr. Itzel Epsteinrythrocyte distribution width (RBC) [Ratio]15.9 %Critically high 11.0-15.0The [facility] HospitalComment on above:Performed By: #### OSMO #### [facility] [address] [place] [address] Dr. Itzel LermaHematocrit (Bld) [Volume fraction]42.4 %Wkkewp84.0-54.0The [facility] HospitalComment on above:Performed By: #### OSMO #### [facility] [address] [place] [address] Dr. Itzel LermaHemoglobin (Bld) [Mass/Vol]13.1 g/dLCritically low14.0-18.0The [facility] HospitalComment on above:Performed By: #### OSMO #### [facility] [address] [address] [address] Itzel Ortega #0.04 10e3/ulCritically high0.00-0.03The [facility] Comment on above:Performed By: #### OSMO #### [facility] [address] [address] [address] Itzel Ortega %0.7 %Critically high0.0-0.5The [facility] HospitalComment on above:Performed By: #### OSMO #### [facility] [address] [address] [address] Itzel Hahn #0.9 103/ulCritically low1.2-3.8The [facility] Comment on above:Performed By: #### OSMO #### [facility] [address] [place] [address] Dr. Itzel Weirhocytes/100 WBC (Bld)15.6 %Critically low20.5-60.0The [facility] HospitalComment on above:Performed By: #### OSMO #### [facility] [address] [place] [address] Dr. Itzel CondonUAL DIFF REQNONormalThe [facility] HospitalComment on above: Performed By: #### OSMO #### [facility] [address] [place] [address] Dr. Itzel Maria (RBC) [Entitic mass]27.5 hiYtsdjy90.9-34.0The [facility] HospitalComment on above:Performed By: #### OSMO #### [facility] [address] [place] [address] Dr. Itzel Maria (RBC) [Mass/Vol]30.9 g/fCCjjfow33.9-35.2[place] HospitalComment on above:Performed By: #### OSMO #### [facility] [address] [place] [address] Dr. Itzel Maria (RBC) [Entitic vol]88.9 lCYatgwn45.0-94.0The [facility] HospitalComment on above:Performed By: #### OSMO #### [facility] [address] [place] [address] Dr. Itzel Kirkland #0.7 103/ulNormal0.3-0.8The [facility] HospitalComment on above:Performed By: #### OSMO #### [facility] [address] [place] [address] Dr. Itzel Mendozaocytes/100 WBC (Bld)12.1 %Critically high1.7-12.0The [facility] HospitalComment on above:Performed By: #### OSMO #### [facility] [address] [place] [address] Dr. Itzel Watkins #4.0 103/ulNormal1.4-6.5The [facility] HospitalComment on above:Performed By: #### OSMO #### [facility] [address] [place] [address] Dr. Itzel Hidalgoutrophils/100 WBC (Bld)69.7 %Cnykcf96.0-75.0The [facility] HospitalComment on above:Performed By: #### OSMO #### [facility] [address] [place] [address] Dr. Itzel Nguyen mean volume (Bld) [Entitic vol]10.6 fLNormal9.5-13.5The [facility] HospitalComment on above:Performed By: #### OSMO #### [facility] [address] [place] [address] Dr. Itzel LermaPLT200 103/zkWuuljo337-586Pfp [facility] HospitalComment on above: Performed By: #### OSMO #### [facility] [address] [place] [address] Dr. Itzel LermaRBC4.77 106/ulNormal4.70-6.10The [facility] HospitalComment on above:Performed By: #### OSMO #### [facility] [address] [place] [address] Dr. Itzel LermaWBC5.8 103/ulNormal4.0-11.0The [facility] HospitalComment on above: Performed By: #### OSMO #### [facility] [address] [address] [address] Itzel Torres CHEM 8 (BAS METB)on [id number] gap [Moles/Vol]14.3 mmol/LNormalThe [facility] HospitalComment on above:Performed By: #### OSMO #### [facility] [address] [address] [address] Itzel LermaCalcium [Mass/Vol]9.1 mg/dLNormal8.5-10.1The [facility] Comment on above:Performed By: #### OSMO #### [facility] [address] [place] [address] Dr. Itzel LermaChloride [Moles/Vol]102 mmol/HCypioc95-074Aqz [facility] Comment on above:Performed By: #### OSMO #### [facility] [address] [place] [address] Dr. Itzel LermaCO2 [Moles/Vol]21.4 mmol/LQwyjgm73.0-32.0The [facility] Comment on above:Performed By: #### OSMO #### [facility] [address] [place] [address] Dr. Itzel LermaCreatinine [Mass/Vol]1.58 mg/dLCritically high0.70-1.30The [facility] HospitalComment on above:Performed By: #### OSMO #### [facility] [address] [place] [address] Dr. Itzel EpsteinGFR-AF TMBEBAHL17 mL/min/1.94f4Jtmtlxbkom low>=60The [facility] HospitalComment on above:Performed By: #### OSMO #### [facility] [address] [place] [address] Dr. Itzel EpsteinGFR-NON AF AKEJRSMH70 mL/min/1.33k0Xfhybbsvpc low>=60The [facility] HospitalComment on above:Performed By: #### OSMO #### [facility] [address] [place] [address] Dr. Itzel LermaGlucose [Mass/Vol]125 mg/dLCritically lpbx61-835Wel [facility] HospitalComment on above:Performed By: #### OSMO #### [facility] [address] [address] [address] Itzel LermaPotassium [Moles/Vol]4.7 mmol/LNormal3.5-5.1The [facility] Comment on above:Performed By: #### OSMO #### [facility] [address] [address] [address] Itzel LermaSodium [Moles/Vol]133 mmol/LCritically mhx584-511Hpz [facility] HospitalComment on above:Performed By: #### OSMO #### [facility] [address] [place] [address] Dr. Itzel LermaUrea nitrogen [Mass/Vol]45.0 mg/dLCritically high7.0-18.0The [facility] HospitalComment on above:Performed By: #### OSMO #### [facility] [address] [address] [address] Itzel Carbajal nitrogen/Creatinine [Mass ratio]28.5 mg/mgNoMiami Valley HospitalComment on above:Performed By: #### OSMO #### [facility] [address] [place] [address] Dr. Itzel ParhamIMEcely [id number] Coag (PPP) [Relative time]4.89 {INR} Critically highThe [facility] HospitalComment on above:Performed By: #### PT #### [facility] [address] [place] [address] Dr. Itzel Li [place]UIDELINES[place] BELOWChildren's Hospital of ColumbusComment on above:Result Comment: DESIRED INR: 2.0 - 3.0 CONDITIONS NOT LISTED BELOW 2.5 - 3.5 FOR PROSTHETIC HEART VALVE REPLACEMENT 2.5 - 3.5 RECURRENT THROMBOSIS Performed By: #### PT #### [facility] [address] [place] [address] Dr. Itzel LermaPT Coag (PPP) [Time]47.4 sCritically high9.0-11.6The [facility] HospitalComment on above:Performed By: #### PT #### [facility] [address] [place] [address] Dr. Itzel Cabrera AUTO DIFFon [id number] #0.0 103/ulNormal0.0-0.1The [facility] HospitalComment on above:Performed By: #### CBC #### [facility] [address] [place] [address] Dr. Itzel LermaBasophils/100 WBC (Bld)0.4 %Normal0.2-2.0The [facility] Comment on above:Performed By: #### CBC #### [facility] [address] [place] [address] Dr. Robbins ChangEKelle #0.1 103/ulNormal0.0-0.7The [facility] HospitalComment on above: Performed By: #### CBC #### [facility] [address] [place] [address] Dr. Itzel Epsteinosinophils/100 WBC (Bld)1.4 %Normal0.9-7.0The [facility] Comment on above:Performed By: #### CBC #### [facility] [address] [place] [address] Dr. Itzel Epsteinrythrocyte distribution width (RBC) [Ratio]16.3 %Critically high 11.0-15.0[place] HospitalComment on above:Performed By: #### CBC #### [facility] [address] [place] [address] Dr. Itzel LermaHematocrit (Bld) [Volume fraction]41.1 %Critically low42.0-54.0 The [facility] HospitalComment on above:Performed By: #### CBC #### [facility] [address] [place] [address] Dr. Itzel LermaHemoglobin (Bld) [Mass/Vol]12.5 g/dLCritically low14.0-18.0The [facility] HospitalComment on above:Performed By: #### CBC #### [facility] [address] [address] [address] Itzel Ortega #0.03 10e3/ulNormal0.00-0.03The [facility] HospitalComment on above:Performed By: #### CBC #### [facility] [address] [place] [address] Dr. Itzel Ortega %0.4 %Normal0.0-0.5The [facility] HospitalComment on above: Performed By: #### CBC #### [facility] [address] [place] [address] Dr. Itzel Hahn #1.0 103/ulCritically low1.2-3.8The [facility] Comment on above:Performed By: #### CBC #### [facility] [address] [place] [address] Dr. Itzel Weirhocytes/100 WBC (Bld)14.3 %Critically low20.5-60.0The [facility] HospitalComment on above:Performed By: #### CBC #### [facility] [address] [place] [address] Dr. Itzel CondonUAL DIFF REQNONormalThe [facility] HospitalComment on above: Performed By: #### CBC #### [facility] [address] [place] [address] Dr. Itzel Centeno (RBC) [Entitic mass]27.4 afCrhdsh06.9-34.0The [facility] HospitalComment on above:Performed By: #### CBC #### [facility] [address] [place] [address] Dr. Itzel Maria (RBC) [Mass/Vol]30.4 g/zSPfokii31.9-35.2The [facility] HospitalComment on above:Performed By: #### CBC #### [facility] [address] [place] [address] Dr. Itzel Maria (RBC) [Entitic vol]89.9 oBMvrcvn17.0-94.0The [facility] HospitalComment on above:Performed By: #### CBC #### [facility] [address] [address] [address] Itzel Kirkland #0.8 103/ulNormal0.3-0.8The [facility] HospitalComment on above:Performed By: #### CBC #### [facility] [address] [address] [address] Itzel Mendozaocytes/100 WBC (Bld)11.1 %Normal1.7-12.0The [facility] Comment on above:Performed By: #### CBC #### [facility] [address] [place] [address] Dr. Itzel Watkins #5.2 103/ulNormal1.4-6.5The [facility] HospitalComment on above:Performed By: #### CBC #### [facility] [address] [place] [address] Dr. Itzel Hidalgoutrophils/100 WBC (Bld)72.4 %Kkcqwj96.0-75.0The [facility] HospitalComment on above:Performed By: #### CBC #### [facility] [address] [place] [address] Dr. Itzel Nguyen mean volume (Bld) [Entitic vol]10.1 fLNormal9.5-13.5The [facility] HospitalComment on above:Performed By: #### CBC #### [facility] [address] [place] [address] Dr. Itzel LermaPLT210 103/hePxnfmk171-969Pqc [facility] HospitalComment on above: Performed By: #### CBC #### [facility] [address] [place] [address] Dr. Itzel LermaRBC4.57 106/ulCritically low4.70-6.10The [facility] HospitalComment on above:Performed By: #### CBC #### [facility] [address] [place] [address] Dr. Itzel LermaWBC7.2 103/ulNormal4.0-11.0The [facility] HospitalComment on above: Performed By: #### CBC #### [facility] [address] [address] [address] Itzel LermaPROF CHEM 8 (BAS METB)on 53-63-3714Oidch gap [Moles/Vol]13.8 mmol/LNormalThe [facility] HospitalComment on above:Performed By: #### OSMO #### [facility] [address] [address] [address] Itzel LermaCalcium [Mass/Vol]8.7 mg/dLNormal8.5-10.1The [facility] Comment on above:Performed By: #### OSMO #### [facility] [address] [address] [address] Itzel LermaChloride [Moles/Vol]102 mmol/EKdxghc73-227Eno [facility] Comment on above:Performed By: #### OSMO #### [facility] [address] [place] [address] Dr. Itzel LermaCO2 [Moles/Vol]20.6 mmol/LCritically low21.0-32.0The [facility] HospitalComment on above:Performed By: #### OSMO #### [facility] [address] [address] [address] Itzel LermaCreatinine [Mass/Vol]1.49 mg/dLCritically high0.70-1.30The [facility] HospitalComment on above:Performed By: #### OSMO #### [facility] [address] [address] [address] Itzel EpsteinGFR-AF YTTUZGOZ31 mL/min/1.68n2Lckcmxhfpm low>=60The [facility] HospitalComment on above:Performed By: #### OSMO #### [facility] [address] [address] [address] Itzel EpsteinGFR-NON AF SLJGGOYF32 mL/min/1.75c7Kejtcqdynr low>=60The [facility] HospitalComment on above:Performed By: #### OSMO #### [facility] [address] [address] [address] Itzel LermaGlucose [Mass/Vol]105 mg/kPEkcwri14-153Ypw [facility] Comment on above:Performed By: #### OSMO #### [facility] [address] [place] [address] Dr. Itzel LermaPotassium [Moles/Vol]4.4 mmol/LNormal3.5-5.1The [facility] Comment on above:Performed By: #### OSMO #### [facility] [address] [place] [address] Dr. Itzel LermaSodium [Moles/Vol]132 mmol/LCritically gon185-629Uom [facility] HospitalComment on above:Performed By: #### OSMO #### [facility] [address] [place] [address] Dr. Itzel LermaUrea nitrogen [Mass/Vol]47.0 mg/dLCritically high7.0-18.0[place] HospitalComment on above:Performed By: #### OSMO #### [facility] [address] [place] [address] Dr. Itzel Carbajal nitrogen/Creatinine [Mass ratio]31.5 mg/mgNoMiami Valley HospitalComment on above:Performed By: #### OSMO #### [facility] [address] [place] [address] Dr. Itzel Velez 81-68-0460KCF Coag (PPP) [Relative time]5.94 {INR} Critically highChillicothe HospitalComment on above:Performed By: #### CBC #### [facility] [address] [place] [address] Dr. Itzel Li [place]ELINES[place] BELOWChildren's Hospital of ColumbusComment on above:Result Comment: DESIRED INR: 2.0 - 3.0 CONDITIONS NOT LISTED BELOW 2.5 - 3.5 FOR PROSTHETIC HEART VALVE REPLACEMENT 2.5 - 3.5 RECURRENT THROMBOSIS Performed By: #### CBC #### [facility] [address] [place] [address] Dr. Itzel LermaPT Coag (PPP) [Time]56.9 sCritically high9.0-11.6The [facility] HospitalComment on above:Performed By: #### CBC #### [facility] [address] [address] [address] Itzel LermaXR KUB 1 VIEWon [id number] KUB 1 VIEWEXAMINATION: XR KUB 1 VIEW [...] Electronically authenticated by: DORIAN YODER Date: 2022-11-22 08:06[facility] AUTO DIFFon [id number] #0.0 103/ulNormal0.0-0.1The [facility] HospitalComment on above:Performed By: #### OBIA #### [facility] [address] [address] [address] Itzel LermaBasophils/100 WBC (Bld)0.1 %Critically low0.2-2.0The [facility] HospitalComment on above:Performed By: #### OBIA #### [facility] [address] [place] [address] Dr. Itzel Terrazas #0.1 103/ulNormal0.0-0.7The [facility] HospitalComment on above: Performed By: #### OBIA #### [facility] [address] [place] [address] Dr. Itzel Epsteinosinophils/100 WBC (Bld)1.5 %Normal0.9-7.0The [facility] Comment on above:Performed By: #### OBIA #### [facility] [address] [place] [address] Dr. Itzel Epsteinrythrocyte distribution width (RBC) [Ratio]16.3 %Critically high 11.0-15.0The [facility] HospitalComment on above:Performed By: #### OBIA #### [facility] [address] [place] [address] Dr. Itzel LermaHematocrit (Bld) [Volume fraction]42.6 %Tvrhxp62.0-54.0The [facility] HospitalComment on above:Performed By: #### OBIA #### [facility] [address] [place] [address] Dr. Itzel LermaHemoglobin (Bld) [Mass/Vol]13.3 g/dLCritically low14.0-18.0The [facility] HospitalComment on above:Performed By: #### OBIA #### [facility] [address] [place] [address] Dr. Itzel Ortega #0.02 10e3/ulNormal0.00-0.03The [facility] HospitalComment on above:Performed By: #### OBIA #### [facility] [address] [place] [address] Dr. Itzel Ortega %0.2 %Normal0.0-0.5The [facility] HospitalComment on above: Performed By: #### OBIA #### [facility] [address] [place] [address] Dr. Itzel Hahn #1.0 103/ulCritically low1.2-3.8The [facility] Comment on above:Performed By: #### OBIA #### [facility] [address] [place] [address] Dr. Itzel Martinezmphocytes/100 WBC (Bld)12.5 %Critically low20.5-60.0The [facility] HospitalComment on above:Performed By: #### OBIA #### [facility] [address] [place] [address] Dr. Itzel CondonUAL DIFF REQNONormalThe [facility] HospitalComment on above: Performed By: #### OBIA #### [facility] [address] [place] [address] Dr. Itzel Centeno (RBC) [Entitic mass]27.8 blTkarhb67.9-34.0The [facility] HospitalComment on above:Performed By: #### OBIA #### [facility] [address] [address] [address] Itzel MariaHC (RBC) [Mass/Vol]31.2 g/oQIduufy50.9-35.2The [facility] HospitalComment on above:Performed By: #### OBIA #### [facility] [address] [place] [address] Dr. Itzel MariaV (RBC) [Entitic vol]88.9 iYMkookq96.0-94.0The [facility] HospitalComment on above:Performed By: #### OBIA #### [facility] [address] [place] [address] Dr. Itzel Kirkland #0.9 103/ulCritically high0.3-0.8The [facility] Comment on above:Performed By: #### OBIA #### [facility] [address] [place] [address] Dr. Itzel Mendozaocytes/100 WBC (Bld)10.6 %Normal1.7-12.0The [facility] Comment on above:Performed By: #### OBIA #### [facility] [address] [place] [address] Dr. Itzel Watkins #6.1 103/ulNormal1.4-6.5The [facility] HospitalComment on above:Performed By: #### OBIA #### [facility] [address] [place] [address] Dr. Itzel Hidalgoutrophils/100 WBC (Bld)75.1 %Critically high43.0-75.0The [facility] HospitalComment on above:Performed By: #### OBIA #### [facility] [address] [place] [address] Dr. Itzel Rosalet mean volume (Bld) [Entitic vol]9.9 fLNormal9.5-13.5The [facility] HospitalComment on above:Performed By: #### OBIA #### [facility] [address] [place] [address] Dr. Itzel LermaPLT239 103/puPpzbto683-791Tkw [facility] HospitalComment on above: Performed By: #### OBIA #### [facility] [address] [address] [address] Itzel LermaRBC4.79 106/ulNormal4.70-6.10The [facility] HospitalComment on above:Performed By: #### OBIA #### [facility] [address] [place] [address] Dr. Itzel LermaWBC8.1 103/ulNormal4.0-11.0The [facility] HospitalComment on above: Performed By: #### OBIA #### [facility] [address] [place] [address] Dr. Itzel BadilloF CHEM 8 (BAS METB)on 32-81-7350Holgr gap [Moles/Vol]15.4 mmol/LNormalThe [facility] HospitalComment on above:Performed By: #### UA #### [facility] [address] [place] [address] Dr. Itzel LermaCalcium [Mass/Vol]8.9 mg/dLNormal8.5-10.1The [facility] Comment on above:Performed By: #### UA #### [facility] [address] [place] [address] Dr. Itzel LermaChloride [Moles/Vol]102 mmol/KGrpezy44-449San [facility] Comment on above:Performed By: #### UA #### [facility] [address] [place] [address] Dr. Itzel LermaCO2 [Moles/Vol]18.7 mmol/LCritically low21.0-32.0The [facility] HospitalComment on above:Performed By: #### UA #### [facility] [address] [place] [address] Dr. Itzel LermaCreatinine [Mass/Vol]1.47 mg/dLCritically high0.70-1.30The [facility] HospitalComment on above:Performed By: #### UA #### [facility] [address] [place] [address] Dr. Yilan ChangEGFR-AF PZNZUKLE91 mL/min/1.83x1Wondjrodcc low>=60The [facility] HospitalComment on above:Performed By: #### UA #### [facility] [address] [address] [address] Itzel EpsteinGFR-NON AF ZENKFKPT96 mL/min/1.09e9Gtvoycbwmq low>=60The [facility] HospitalComment on above:Performed By: #### UA #### [facility] [address] [address] [address] Itzel LermaGlucose [Mass/Vol]103 mg/hYLpwuls72-291Gkc [facility] Comment on above:Performed By: #### UA #### [facility] [address] [place] [address] Dr. Itzel LermaPotassium [Moles/Vol]4.1 mmol/LNormal3.5-5.1[facility] Comment on above:Performed By: #### UA #### [facility] [address] [address] [address] Itzel LermaSodium [Moles/Vol]132 mmol/LCritically slr067-058OkiChillicothe HospitalComment on above:Performed By: #### UA #### [facility] [address] [place] [address] Dr. Itzel LermaUrea nitrogen [Mass/Vol]47.0 mg/dLCritically high7.0-18.0[place] HospitalComment on above:Performed By: #### UA #### [facility] [address] [place] [address] Dr. Itzel Carbajal nitrogen/Creatinine [Mass ratio]32.0 mg/mgNormalThe [facility] HospitalComment on above:Performed By: #### UA #### [facility] [address] [place] [address] Dr. Itzel LermaXR KUB 1 VIEWon [id number] KUB 1 VIEWEXAMINATION: XR KUB 1 VIEW [...] Electronically authenticated by: DORIAN YODER Date: 2022-11-21 08:08No[facility] AUTO DIFFon [id number] #0.0 103/ulNormal0.0-0.1[place] HospitalComment on above:Performed By: #### OSMO #### [facility] [address] [place] [address] Dr. Itzel LermaBasophils/100 WBC (Bld)0.3 %Normal0.2-2.0[facility] Comment on above:Performed By: #### OSMO #### [facility] [address] [place] [address] Dr. Itzel Terrazas #0.1 103/ulNormal0.0-0.7The [facility] HospitalComment on above: Performed By: #### OSMO #### [facility] [address] [place] [address] Dr. Itzel Epsteinosinophils/100 WBC (Bld)0.8 %Critically low0.9-7.0[facility] HospitalComment on above:Performed By: #### OSMO #### [facility] [address] [place] [address] Dr. Itzel Epsteinrythrocyte distribution width (RBC) [Ratio]16.2 %Critically high 11.0-15.0[facility] HospitalComment on above:Performed By: #### OSMO #### [facility] [address] [place] [address] Dr. Itzel LermaHematocrit (Bld) [Volume fraction]46.2 %Chcszf65.0-54.0[facility] HospitalComment on above:Performed By: #### OSMO #### [facility] [address] [place] [address] Dr. Itzel LermaHemoglobin (Bld) [Mass/Vol]14.2 g/dTVgoqpk27.0-18.0The [facility] HospitalComment on above:Performed By: #### OSMO #### [facility] [address] [place] [address] Dr. Itzel Ortega #0.04 10e3/ulCritically high0.00-0.03The [facility] Comment on above:Performed By: #### OSMO #### [facility] [address] [place] [address] Dr. Itzel Ortega %0.3 %Normal0.0-0.5The [facility] HospitalComment on above: Performed By: #### OSMO #### [facility] [address] [place] [address] Dr. Itzel Hahn #1.3 103/ulNormal1.2-3.8The [facility] HospitalComment on above:Performed By: #### OSMO #### [facility] [facility] [address] [place] [address] Dr. Itzel Weirhocytes/100 WBC (Bld)10.4 %Critically low20.5-60.0The [facility] HospitalComment on above:Performed By: #### OSMO #### [facility] [address] [place] [address] Dr. Itzel CondonUAL DIFF REQNONormalThe [facility] HospitalComment on above: Performed By: #### OSMO #### [facility] [address] [place] [address] Dr. Itzel Maria (RBC) [Entitic mass]27.6 veCzqsot21.9-34.0The [facility] HospitalComment on above:Performed By: #### OSMO #### [facility] [address] [place] [address] Dr. Itzel Maria (RBC) [Mass/Vol]30.7 g/sJXyjynb91.9-35.2The [facility] HospitalComment on above:Performed By: #### OSMO #### [facility] [address] [address] [address] Itzel MariaV (RBC) [Entitic vol]89.9 dMCnstrf93.0-94.0The [facility] HospitalComment on above:Performed By: #### OSMO #### [facility] [address] [address] [address] Itzel Kirkland #1.1 103/ulCritically high0.3-0.8The [facility] Comment on above:Performed By: #### OSMO #### [facility] [address] [place] [address] Dr. Itzel Mendozaocytes/100 WBC (Bld)9.5 %Normal1.7-12.0[facility] Comment on above:Performed By: #### OSMO #### [facility] [address] [place] [address] Dr. Itzel Watkins #9.5 103/ulCritically high1.4-6.5The [facility] Comment on above:Performed By: #### OSMO #### [facility] [address] [place] [address] Dr. Itzel Hidalgoutrophils/100 WBC (Bld)78.7 %Critically high43.0-75.0The [facility] HospitalComment on above:Performed By: #### OSMO #### [facility] [address] [place] [address] Dr. Itzel Rosalet mean volume (Bld) [Entitic vol]9.6 fLNormal9.5-13.5The [facility] HospitalComment on above:Performed By: #### OSMO #### [facility] [address] [place] [address] Dr. Itzel LermaPLT280 103/lqUqgxup842-335Mmc [facility] HospitalComment on above: Performed By: #### OSMO #### [facility] [address] [place] [address] Dr. Itzel LermaRBC5.14 106/ulNormal4.70-6.10The [facility] HospitalComment on above:Performed By: #### OSMO #### [facility] [address] [place] [address] Dr. Itzel LermaWBC12.0 103/ulCritically high4.0-11.0The [facility] HospitalComment on above:Performed By: #### OSMO #### [facility] [address] [place] [address] Dr. Itzel LermaLACTATE/LACTIC ACIDon 60-98-8073Sahybub [Moles/Vol]0.9 mmol/L Normal0.4-1.9The [facility] HospitalComment on above:Performed By: #### CBC #### [facility] [address] [place] [address] Dr. Itzel LermaPROF CHEM 8 (BAS METB)on 80-67-8032Xbned gap [Moles/Vol]14.9 mmol/LNormalThe [facility] HospitalComment on above:Performed By: #### BMP #### [facility] [address] [place] [address] Dr. Itzel LermaCalcium [Mass/Vol]9.7 mg/dLNormal8.5-10.1The [facility] Comment on above:Performed By: #### BMP #### [facility] [address] [place] [address] Dr. Itzel LermaChloride [Moles/Vol]99 mmol/XJughas22-110Nso [facility] Comment on above:Performed By: #### BMP #### [facility] [address] [place] [address] Dr. Itzel LermaCO2 [Moles/Vol]22.7 mmol/QDslyoy48.0-32.0The [facility] Comment on above:Performed By: #### BMP #### [facility] [address] [place] [address] Dr. Itzel LermaCreatinine [Mass/Vol]2.07 mg/dLCritically high0.70-1.30The [facility] HospitalComment on above:Performed By: #### BMP #### [facility] [address] [place] [address] Dr. Itzel EpsteinGFR-AF LLAQQQYF52 mL/min/1.38i1Kihpbkhmpw low>=60The [facility] HospitalComment on above:Performed By: #### BMP #### [facility] [address] [address] [address] Itzel EpsteinGFR-NON AF QUNVGIJC39 mL/min/1.27w7Uketvgomrq low>=60The [facility] HospitalComment on above:Performed By: #### BMP #### [facility] [address] [address] [address] Itzel LermaGlucose [Mass/Vol]144 mg/dLCritically abve02-836Wwr [facility] HospitalComment on above:Performed By: #### BMP #### [facility] [address] [place] [address] Dr. Itzel LermaPotassium [Moles/Vol]4.6 mmol/LNormal3.5-5.1The [facility] Comment on above:Performed By: #### BMP #### [facility] [address] [address] [address] Itzel LermaSodium [Moles/Vol]132 mmol/LCritically rlf999-509Hkd [facility] HospitalComment on above:Performed By: #### BMP #### [facility] [address] [place] [address] Dr. Itzel LermaUrea nitrogen [Mass/Vol]52.0 mg/dLCritically high7.0-18.0The [facility] HospitalComment on above:Performed By: #### BMP #### [facility] [address] [place] [address] Dr. Itzel Carbajal nitrogen/Creatinine [Mass ratio]25.1 mg/mgNormalThe [facility] HospitalComment on above:Performed By: #### BMP #### [facility] [address] [place] [address] Dr. Itzel LermaPROTIMEon [id number] Coag (PPP) [Relative time]2.54 {INR} NormalThe [facility] HospitalComment on above:Performed By: #### CBC #### [facility] [address] [place] [address] Dr. Itzel Li GUIDELINESSEE BELOWChildren's Hospital of ColumbusComment on above:Result Comment: DESIRED INR: 2.0 - 3.0 CONDITIONS NOT LISTED BELOW 2.5 - 3.5 FOR PROSTHETIC HEART VALVE REPLACEMENT 2.5 - 3.5 RECURRENT THROMBOSIS Performed By: #### CBC #### [facility] [address] [place] [address] Dr. Itzel LermaPT Coag (PPP) [Time]25.5 sCritically high9.0-11.6The [facility] HospitalComment on above:Performed By: #### CBC #### [facility] [address] [place] [address] Dr. Itzel LermaXR KUB 1 VIEWon [id number] KUB 1 VIEWEXAMINATION: XR KUB 1 VIEW [...] Electronically authenticated by: DORIAN YODER Date: 2022-11-20 10:[address] [place] [address] AUTO DIFFon [id number] #0.0 103/ulNormal0.0-0.1The [facility] HospitalComment on above:Performed By: #### OSMO #### [facility] [address] [place] [address] Dr. Itzel LermaBasophils/100 WBC (Bld)0.2 %Normal0.2-2.0[facility] Comment on above:Performed By: #### OSMO #### [facility] [address] [place] [address] Dr. Itzel Terrazas #0.1 103/ulNormal0.0-0.7The [facility] HospitalComment on above: Performed By: #### OSMO #### [facility] [address] [place] [address] Dr. Itzel Epsteinosinophils/100 WBC (Bld)1.1 %Normal0.9-7.0[facility] Comment on above:Performed By: #### OSMO #### [facility] [address] [place] [address] Dr. Itzel Epsteinrythrocyte distribution width (RBC) [Ratio]16.3 %Critically high 11.0-15.0The [facility] HospitalComment on above:Performed By: #### OSMO #### [facility] [address] [place] [address] Dr. Itzel LermaHematocrit (Bld) [Volume fraction]47.9 %Fhdldv77.0-54.0The [facility] HospitalComment on above:Performed By: #### OSMO #### [facility] [address] [place] [address] Dr. Itzel LermaHemoglobin (Bld) [Mass/Vol]14.7 g/fVYrvgmu75.0-18.0[facility] HospitalComment on above:Performed By: #### OSMO #### [facility] [address] [place] [address] Dr. Itzel Ortega #0.04 10e3/ulCritically high0.00-0.03The [facility] Comment on above:Performed By: #### OSMO #### [facility] [address] [place] [address] Dr. Itzel Ortega %0.4 %Normal0.0-0.5The [facility] HospitalComment on above: Performed By: #### OSMO #### [facility] [address] [place] [address] Dr. Itzel Hahn #0.9 103/ulCritically low1.2-3.8The [facility] Comment on above:Performed By: #### OSMO #### [facility] [address] [place] [address] Dr. Itzel Martinezmphocytes/100 WBC (Bld)9.7 %Critically low20.5-60.0The [facility] HospitalComment on above:Performed By: #### OSMO #### [facility] [address] [place] [address] Dr. Itzel CondonUAL DIFF REQNONormalThe [facility] HospitalComment on above: Performed By: #### OSMO #### [facility] [address] [place] [address] Dr. Itzel Maria (RBC) [Entitic mass]27.4 muZcmvcj83.9-34.0The [facility] HospitalComment on above:Performed By: #### OSMO #### [facility] [address] [place] [address] Dr. Itzel Maria (RBC) [Mass/Vol]30.7 g/rJTzbwxl02.9-35.2The [facility] HospitalComment on above:Performed By: #### OSMO #### [facility] [address] [place] [address] Dr. Itzel Maria (RBC) [Entitic vol]89.2 vKBpbgii53.0-94.0The [facility] HospitalComment on above:Performed By: #### OSMO #### [facility] [address] [place] [address] Dr. Itzel Kirkland #0.7 103/ulNormal0.3-0.8The [facility] HospitalComment on above:Performed By: #### OSMO #### [facility] [address] [place] [address] Dr. Itzel Mendozaocytes/100 WBC (Bld)7.9 %Normal1.7-12.0[facility] Comment on above:Performed By: #### OSMO #### [facility] [address] [place] [address] Dr. Itzel Watkins #7.6 103/ulCritically high1.4-6.5The [facility] Comment on above:Performed By: #### OSMO #### [facility] [address] [place] [address] Dr. Itzel Hidalgoutrophils/100 WBC (Bld)80.7 %Critically high43.0-75.0The [facility] HospitalComment on above:Performed By: #### OSMO #### [facility] [address] [place] [address] Dr. Itzel LermaPlatelet mean volume (Bld) [Entitic vol]10.0 fLNormal9.5-13.5The [facility] HospitalComment on above:Performed By: #### OSMO #### [facility] [address] [place] [address] Dr. Itzel LermaPLT276 103/uuHamvbf310-743Gix [facility] HospitalComment on above: Performed By: #### OSMO #### [facility] [address] [place] [address] Dr. Itzel LermaRBC5.37 106/ulNormal4.70-6.10The [facility] HospitalComment on above:Performed By: #### OSMO #### [facility] [address] [place] [address] Dr. Itzel LermaWBC9.4 103/ulNormal4.0-11.0The [facility] Hospitalment on above: Performed By: #### OSMO #### [facility] [address] [place] [address] Dr. Itzel LermaCT ABD/PELVIS WO CONon [id number] ABD/PELVIS WO CONEXAMINATION: CT ABD/PELVIS WO CON, [...] Electronically authenticated by: SHAR TREJO Date: 2022-11-19 19:32NormAccess Hospital DaytonCovid-19 PCR (CVDTBH)on [id number]-CoV-2 (COVID-19) RNA JUDY+probe Ql (Unsp spec)Not detectedNormalNOT DETECTEDChillicothe Hospital Comment on above:Result Comment: When diagnostic [...] for this test is supported by the [place] of Health and Human Service's declaration that [...] longer be used).Performed By: #### UA #### [facility] [address] [place] [address] Dr. Itzel LermaPROKimberley CHEM 8 (BAS METB)on 45-84-4837Qjhfe gap [Moles/Vol]10.2 mmol/LNormalChillicothe HospitalComment on above:Performed By: #### UA #### [facility] [address] [address] [address] Itzel LermaCalcium [Mass/Vol]9.8 mg/dLNormal8.5-10.1The [facility] Comment on above:Performed By: #### UA #### [facility] [address] [address] [address] Itzel LemraChloride [Moles/Vol]99 mmol/SDhtilc03-150Bhs [facility] Comment on above:Performed By: #### UA #### [facility] [address] [address] [address] Itzel LermaCO2 [Moles/Vol]27.4 mmol/JUsctrz37.0-32.0The [facility] Comment on above:Performed By: #### UA #### [facility] [address] [address] [address] Itzel LermaCreatinine [Mass/Vol]2.02 mg/dLCritically high0.70-1.30The [facility] HospitalComment on above:Performed By: #### UA #### [facility] [address] [address] [address] Robbins ChangEGFR-AF JEEUMAMX08 mL/min/1.60l1Pqvlfgtyir low>=60The [facility] HospitalComment on above:Performed By: #### UA #### [facility] [address] [address] [address] Itzel EpsteinGFR-NON AF QLAZRGAZ52 mL/min/1.09z4Mjjhnwcrhe low>=60The [facility] HospitalComment on above:Performed By: #### UA #### [facility] [address] [address] [address] Itzel LermaGlucose [Mass/Vol]148 mg/dLCritically bbyy56-270Xmf [facility] HospitalComment on above:Performed By: #### UA #### [facility] [address] [address] [address] Itzel LermaPotassium [Moles/Vol]5.6 mmol/LCritically high3.5-5.1The [facility] HospitalComment on above:Performed By: #### UA #### [facility] [address] [address] [address] Itzel LermaSodium [Moles/Vol]131 mmol/LCritically xus261-124Efj [facility] HospitalComment on above:Performed By: #### UA #### [facility] [address] [address] [address] Itzel LermaUrea nitrogen [Mass/Vol]44.0 mg/dLCritically high7.0-18.0The [facility] HospitalComment on above:Performed By: #### UA #### [facility] [address] [place] [address] Dr. Itzel Carbajal nitrogen/Creatinine [Mass ratio]21.8 mg/mgNoMiami Valley HospitalComment on above:Performed By: #### UA #### [facility] [address] [place] [address] Dr. Itzel LermaXR KUB 1 VIEWon [id number] KUB 1 VIEWEXAM: XR KUB 1 VIEW HISTORY: Nasogastric tube in situ COMPARISON: None. TECHNIQUE: Single view FINDINGS: IMPRESSION: Single limited view of the abdomen. Enteric tube tip is approximately 6.2 cm below the diaphragm. Air-filled loops of large and small bowel Electronically authenticated by: SHAHZAD VILLALPANDO Date: 2022-11-19 20:24[facility] Hospital of ColumbusOSMOLALITYon 35-25-7677Tbsrvcdspo [Osmolality]274 mosm/kg Critically yqe647-330Ucg [facility] HospitalComment on above:Performed By: #### OSMO #### [facility] [address] [place] [address] Dr. Itzel LermaCBC AUTO DIFFon [id number] #0.0 103/ulNormal0.0-0.1The [facility] HospitalCombronson method[facility] hospital on above:Performed By: #### OBIA #### [facility] [address] [place] [address] Dr. Itzel LermaBasophils/100 WBC (Bld)0.3 %Normal0.2-2.0The [facility] Comment on above:Performed By: #### OBIA #### [facility] [address] [place] [address] Dr. Itzel Terrazas #0.1 103/ulNormal0.0-0.7The [facility] HospitalComment on above: Performed By: #### OBIA #### [facility] [address] [place] [address] Dr. Itzel Epsteinosinophils/100 WBC (Bld)0.7 %Critically low0.9-7.0The [facility] HospitalComment on above:Performed By: #### OBIA #### [facility] [address] [place] [address] Dr. Itzel Praterthrocyte distribution width (RBC) [Ratio]14.6 %Ifften73.0-15.0 The [facility] HospitalComment on above:Performed By: #### OBIA #### [facility] [address] [place] [address] Dr. Itzel LermaHematocrit (Bld) [Volume fraction]35.2 %Critically low42.0-54.0 [facility] HospitalComment on above:Performed By: #### OBIA #### [facility] [address] [place] [address] Dr. Itzel LermaHemoglobin (Bld) [Mass/Vol]11.4 g/dLCritically low14.0-18.0The [facility] HospitalComment on above:Performed By: #### OBIA #### [facility] [address] [place] [address] Dr. Itzel Ortega #0.04 10e3/ulCritically high0.00-0.03The [facility] Comment on above:Performed By: #### OBIA #### [facility] [address] [place] [address] Dr. Itzel Ortega %0.4 %Normal0.0-0.5ThMercy HospitalComment on above: Performed By: #### OBIA #### [facility] [address] [place] [address] Dr. Itzel Hahn #0.9 103/ulCritically low1.2-3.8ThMercy Hospital Comment on above:Performed By: #### OBIA #### [facility] [address] [place] [address] Dr. Itzel Martinezmphocytes/100 WBC (Bld)10.4 %Critically low20.5-60.0[facility] HospitalComment on above:Performed By: #### OBIA #### [facility] [address] [place] [address] Dr. Itzel Valdez DIFF REQNONormalThe [facility] HospitalComment on above: Performed By: #### OBIA #### [facility] [address] [place] [address] Dr. Itzel Maria (RBC) [Entitic mass]29.1 evKygfze11.9-34.0[facility] HospitalComment on above:Performed By: #### OBIA #### [facility] [address] [place] [address] Dr. Itzel Maria (RBC) [Mass/Vol]32.4 g/xIVszcnx34.9-35.2The [facility] HospitalComment on above:Performed By: #### OBIA #### [facility] [address] [place] [address] Dr. Itzel Maria (RBC) [Entitic vol]89.8 eNNilxly40.0-94.0The [facility] HospitalComment on above:Performed By: #### OBIA #### [facility] [address] [place] [address] Dr. Itzel Kirkland #1.0 103/ulCritically high0.3-0.8ThMercy Hospital Comment on above:Performed By: #### OBIA #### [facility] [address] [place] [address] Dr. Itzel Mendozaocytes/100 WBC (Bld)11.1 %Normal1.7-12.0[facility] Comment on above:Performed By: #### OBIA #### [facility] [address] [place] [address] Dr. Itzel Watkins #6.9 103/ulCritically high1.4-6.5The [facility] Comment on above:Performed By: #### OBIA #### [facility] [address] [place] [address] Dr. Itzel Hidalgoutrophils/100 WBC (Bld)77.1 %Critically high43.0-75.0The [facility] HospitalComment on above:Performed By: #### OBIA #### [facility] [address] [place] [address] Dr. Itzel LermaPlatelet mean volume (Bld) [Entitic vol]9.5 fLNormal9.5-13.5The [facility] HospitalComment on above:Performed By: #### OBIA #### [facility] [address] [place] [address] Dr. Itzel LermaPLT166 103/bkJkqiqw929-061Bmq [facility] HospitalComment on above: Performed By: #### OBIA #### [facility] [address] [place] [address] Dr. Itzel LermaRBC3.92 106/ulCritically low4.70-6.10The [facility] HospitalComment on above:Performed By: #### OBIA #### [facility] [address] [place] [address] Dr. Itzel LermaWBC9.0 103/ulNormal4.0-11.0The [facility] HospitalComment on above: Performed By: #### OBIA #### [facility] [address] [place] [address] Dr. Itzel West PYLORI ANTIBODY IGGon 07-11-2022H. PYLORI IGG ABS1.90 Index ValueCritically high0.00-0.79The [facility] HospitalComment on above:Result Comment: Negative <0.80 Equivocal 0.80 - 0.89 Positive >0.89Performed By: #### HPYLLC #### [facility] [address] [place] [address] Dr. Itzel LermaOCC BLD IMMUNOASSAYon 28-15-5969DNNAVQ BLOODPositiveAbnormal NEGATIVEThe [facility] HospitalComment on above:Performed By: #### OBIA #### [facility] [address] [place] [address] Dr. Itzel LermaOSMOLALITY URINEon 61-31-5897Qiarcteztn, Nroco943 mOsmol/kgNormal The [facility] HospitalComment on above:Result Comment: 24 hr : 300 - 900 Random: 50 - 1400 After 12hr fluid restriction: >850Performed By: #### OBIA #### [facility] [address] [place] [address] Dr. Itzel LermaPROF 14(COMP METB)on 35-61-9125Ylqejlz [Mass/Vol]2.6 g/dL Critically low3.4-5.0The [facility] HospitalComment on above:Performed By: #### OSMO #### [facility] [address] [place] [address] Dr. Itzel LermaAlbumin/Globulin [Mass ratio]0.6 {ratio}NormalThe [facility] HospitalComment on above:Performed By: #### OSMO #### [facility] [address] [place] [address] Dr. Itzel Matt [Catalytic activity/Vol]59 U/FOrcurv49-113Yce [facility] HospitalComment on above:Performed By: #### OSMO #### [facility] [address] [place] [address] Dr. Itzel Finch [Catalytic activity/Vol]10 U/LCritically ptt44-46Cyc [facility] HospitalComment on above:Performed By: #### OSMO #### [facility] [address] [place] [address] Dr. Itzel Kelley gap [Moles/Vol]14.3 mmol/LNormalThe [facility] Comment on above:Performed By: #### OSMO #### [facility] [address] [place] [address] Dr. Itzel Geiger [Catalytic activity/Vol]12 U/LCritically lpl26-11Hmu [facility] HospitalComment on above:Performed By: #### OSMO #### [facility] [address] [address] [address] Itzel LermaBilirubin [Mass/Vol]0.3 mg/dLNormal0.2-1.0The [facility] Comment on above:Performed By: #### OSMO #### [facility] [address] [place] [address] Dr. Itzel LermaCalcium [Mass/Vol]7.5 mg/dLCritically low8.5-10.1The [facility] HospitalComment on above:Performed By: #### OSMO #### [facility] [address] [place] [address] Dr. Itzel LermaChloride [Moles/Vol]116 mmol/LCritically qegf32-092Hbl [facility] HospitalComment on above:Performed By: #### OSMO #### [facility] [address] [place] [address] Dr. Itzel LermaCO2 [Moles/Vol]14.3 mmol/LCritically low21.0-32.0The [facility] HospitalComment on above:Performed By: #### OSMO #### [facility] [address] [place] [address] Dr. Itzel LermaCreatinine [Mass/Vol]1.38 mg/dLCritically high0.70-1.30The [facility] HospitalComment on above:Performed By: #### OSMO #### [facility] [address] [place] [address] Dr. Itzel EpsteinGFR-AF UUIMPITN55 mL/min/1.53u0Dbwnny>=60[facility] Comment on above:Performed By: #### OSMO #### [facility] [address] [place] [address] Dr. Itzel EpsteinGFR-NON AF UNBBOSCE05 mL/min/1.32a5Oadcydtoxr low>=60The [facility] HospitalComment on above:Performed By: #### OSMO #### [facility] [address] [place] [address] Dr. Itzel LermaGlobulin (S) [Mass/Vol]4.1 g/dLNormAccess Hospital DaytonComment on above:Performed By: #### OSMO #### [facility] [address] [place] [address] Dr. Itzel LermaGlucose [Mass/Vol]137 mg/dLCritically ahjf47-809Doa [facility] HospitalComment on above:Performed By: #### OSMO #### [facility] [address] [place] [address] Dr. Itzel LermaPotassium [Moles/Vol]3.6 mmol/LNormal3.5-5.1The [facility] Comment on above:Performed By: #### OSMO #### [facility] [address] [place] [address] Dr. Itzel LermaProtein [Mass/Vol]6.7 g/dLNormal6.4-8.2[facility] Comment on above:Performed By: #### OSMO #### [facility] [address] [place] [address] Dr. Itzel LermaSodium [Moles/Vol]141 mmol/RUgyrlk310-339Qlv [facility] Comment on above:Performed By: #### OSMO #### [facility] [address] [place] [address] Dr. Itzel LermaUrea nitrogen [Mass/Vol]25.0 mg/dLCritically high7.0-18.0The [facility] HospitalComment on above:Performed By: #### OSMO #### [facility] [address] [place] [address] Dr. Itzel LermaUrea nitrogen/Creatinine [Mass ratio]18.1 mg/mgNoMiami Valley HospitalComment on above:Performed By: #### OSMO #### [facility] [address] [place] [address] Dr. Itzel Velez [id number] Coag (PPP) [Relative time]5.21 {INR} Critically highThe [facility] HospitalComment on above:Performed By: #### OSMO #### [facility] [address] [place] [address] Dr. Itzel Li WELLSPAN HEALTHE [facility] Medical CenterComment on above:Result Comment: DESIRED INR: 2.0 - 3.0 CONDITIONS NOT LISTED BELOW 2.5 - 3.5 FOR PROSTHETIC HEART VALVE REPLACEMENT 2.5 - 3.5 RECURRENT THROMBOSIS Performed By: #### OSMO #### [facility] [address] [place] [address] Dr. Itzel LermaPT Coag (PPP) [Time]50.5 sCritically high9.0-11.6The [facility] HospitalComment on above:Performed By: #### OSMO #### [facility] [address] [place] [address] Dr. Itzel Cabrera AUTO DIFFon [id number] #0.0 103/ulNormal0.0-0.1The [facility] HospitalComment on above:Performed By: #### UA #### [facility] [address] [place] [address] Dr. Itzel LermaBasophils/100 WBC (Bld)0.2 %Normal0.2-2.0[facility] Comment on above:Performed By: #### UA #### [facility] [address] [place] [address] Dr. Itzel Terrazas #0.1 103/ulNormal0.0-0.7ThMercy HospitalComment on above: Performed By: #### UA #### [facility] [address] [place] [address] Dr. Itzel Epsteinosinophils/100 WBC (Bld)0.4 %Critically low0.9-7.0The [facility] HospitalComment on above:Performed By: #### UA #### [facility] [address] [place] [address] Dr. Itzel Epsteinrythrocyte distribution width (RBC) [Ratio]14.3 %Jurzva52.0-15.0 The [facility] HospitalComment on above:Performed By: #### UA #### [facility] [address] [place] [address] Dr. Itzel LermaHematocrit (Bld) [Volume fraction]38.2 %Critically low42.0-54.0 The [facility] HospitalComment on above:Performed By: #### UA #### [facility] [address] [place] [address] Dr. Itzel LermaHemoglobin (Bld) [Mass/Vol]12.5 g/dLCritically low14.0-18.0The [facility] HospitalComment on above:Performed By: #### UA #### [facility] [address] [place] [address] Dr. Itzel Ortega #0.11 10e3/ulCritically high0.00-0.03The [facility] Comment on above:Performed By: #### UA #### [facility] [address] [place] [address] Dr. Itzel Ortega %0.7 %Critically high0.0-0.5The [facility] HospitalComment on above:Performed By: #### UA #### [facility] [address] [place] [address] Dr. Itzel Hahn #1.1 103/ulCritically low1.2-3.8The [facility] Comment on above:Performed By: #### UA #### [facility] [address] [place] [address] Dr. Itzel Weirhocytes/100 WBC (Bld)6.9 %Critically low20.5-60.0The [facility] HospitalComment on above:Performed By: #### UA #### [facility] [address] [place] [address] Dr. Itzel CondonUAL DIFF REQNONormalThe [facility] HospitalComment on above: Performed By: #### UA #### [facility] [address] [place] [address] Dr. Itzel Centeno (RBC) [Entitic mass]29.6 bbLdmvxr74.9-34.0The [facility] HospitalComment on above:Performed By: #### UA #### [facility] [address] [place] [address] Dr. Itzel MariaHC (RBC) [Mass/Vol]32.7 g/cPCfxcou75.9-35.2The [facility] HospitalComment on above:Performed By: #### UA #### [facility] [address] [place] [address] Dr. Itzel Enciso (RBC) [Entitic vol]90.3 uRHsdaek73.0-94.0The [facility] HospitalComment on above:Performed By: #### UA #### [facility] [address] [address] [address] Itzel Kirkland #1.2 103/ulCritically high0.3-0.8The [facility] Comment on above:Performed By: #### UA #### [facility] [address] [place] [address] Dr. Itzel Mendozaocytes/100 WBC (Bld)8.1 %Normal1.7-12.0[facility] Comment on above:Performed By: #### UA #### [facility] [address] [place] [address] Dr. Itzel Watkins #12.8 103/ulCritically high1.4-6.5The [facility] Comment on above:Performed By: #### UA #### [facility] [address] [place] [address] Dr. Itzel Hidalgoutrophils/100 WBC (Bld)83.7 %Critically high43.0-75.0The [facility] HospitalComment on above:Performed By: #### UA #### [facility] [address] [place] [address] Dr. Itzel Nguyen mean volume (Bld) [Entitic vol]9.5 fLNormal9.5-13.5The [facility] HospitalComment on above:Performed By: #### UA #### [facility] [address] [place] [address] Dr. Itzel LermaPLT197 103/mxWgkihx683-454Ggj [facility] HospitalComment on above: Performed By: #### UA #### [facility] [address] [place] [address] Dr. Itzel LeramRBC4.23 106/ulCritically low4.70-6.10The [facility] HospitalComment on above:Performed By: #### UA #### [facility] [address] [address] [address] Itzel LermaWBC15.3 103/ulCritically high4.0-11.0The [facility] HospitalComment on above:Performed By: #### UA #### [facility] [address] [address] [address] Itzel LermaCT ABD/PELVIS WO CONon [id number] ABD/PELVIS WO CONEXAMINATION: CT ABD/PELVIS WO CON, [...] Electronically authenticated by: DORIAN SOARES Date: 2022-07-09 22:32NoMiami Valley HospitalCovid-19 PCR (CVDTBH)on [id number]-CoV-2 (COVID-19) RNA JUDY+probe Ql (Unsp spec)Not detectedNormalNOT DETECTEDThe [facility] Comment on above:Result Comment: When diagnostic [...] for this test is supported by the Disability Hearing Officer of Health and Human Service's declaration that [...] longer be used).Performed By: #### OBIA #### [facility] [address] [place] [address] Dr. Itzel Chauhan PANEL (PCR)on [id number] F 40/41Not detectedNormal NOT DETECTEDChillicothe HospitalComment on above:Performed By: #### OBIA #### [facility] [address] [place] [address] Dr. Yilan ChangAstrovirusNot detectedNormalNOT DETECTEDThe [facility] Comment on above:Performed By: #### OBIA #### [facility] [address] [address] [address] Itzel Moreno. Diff toxin A/BNot detectedNormalNOT DETECTEDThe [facility] HospitalComment on above:Performed By: #### OBIA #### [facility] [address] [address] [address] Itzel De GuzmanpylobacterNot detectedNormalNOT DETECTEDThe [facility] Comment on above:Performed By: #### OBIA #### [facility] [address] [address] [address] Itzel LermaCryptosporidiumNot detectedNormalNOT DETECTEDThe [facility] HospitalComment on above:Performed By: #### OBIA #### [facility] [address] [address] [address] Itzel Purdy. CayetanensisNot detectedNormalNOT DETECTEDThe [facility] HospitalComment on above:Performed By: #### OBIA #### [facility] [address] [address] [address] Itzel May Coli I476Kso ApplicableNormalNot ApplicableThe [facility] HospitalCombronson [facility] hospital on above:Performed By: #### OBIA #### [facility] [address] [address] [address] Itzel May histolyticaNot detectedNormalNOT DETECTEDThe [facility] Comment on above:Performed By: #### OBIA #### [facility] [address] [address] [address] Itzel EpsteinAECNot detectedNormalNOT DETECTEDThe [facility] HospitalComment on above:Performed By: #### OBIA #### [facility] [address] [address] [address] Itzel EpsteinIECNot detectedNormalNOT DETECTEDThe [facility] HospitalComment on above:Performed By: #### OBIA #### [facility] [address] [address] [address] Itzel EpsteinPECNot detectedNormalNOT DETECTEDThe [facility] HospitalComment on above:Performed By: #### OBIA #### [facility] [address] [address] [address] Itzel Arellano detectedNormalNOT DETECTEDThe [facility] HospitalCombronson [facility]ist hospital on above:Performed By: #### OBIA #### [facility] [address] [address] [address] Itzel TayliMychal detectedNormalNOT DETECTEDChillicothe Hospital Comment on above:Performed By: #### OBIA #### [facility] [address] [address] [address] Itzel FELIXSuburban Community Hospital & Brentwood HospitalComment on above:Performed By: #### OBIA #### [facility] [address] [place] [address] Dr. Itzel Alvarez TAVO HEADERGI PANEL [facility] Comment on above:Performed By: #### OBIA #### [facility] [address] [place] [address] Dr. Itzle Guerrero ECOLIGI PANEL DIARRHEAGENIC E.COLI / SHIGELLAChildren's Hospital of ColumbusComment on above:Performed By: #### OBIA #### [facility] [address] [place] [address] Dr. Itzel Guerrero INFOSEUniversity Hospitals TriPoint Medical CenterComment on above: Result Comment: EAEC- Enteroaggregative E. Coli EPEC- Enteropathogenic E. Coli ETEC- Enterotoxigenic E. Coli lt/st STEC- Shigella-like toxin-producing E. Coli stx1/stx2 EIEC- Shigella/Enteroinvasive E. ColiPerformed By: #### OBIA #### [facility] [address] [place] [address] Dr. Itzel Guerrero PARASITESGI PANEL [facility] Comment on above:Performed By: #### OBIA #### [facility] [address] [place] [address] Dr. Itzel Guerrero VIRUSGI PANEL VIRUSESChildren's Hospital of ColumbusComment on above:Performed By: #### OBIA #### [facility] [address] [address] [address] Itzel Cainrovirus GI/GIINot detectedNormalNOT DETECTEDThe [facility] HospitalCombronson [facility]ist hospital on above:Performed By: #### OBIA #### [facility] [address] [address] [address] Itzel Mills ShigelloidesNot detectedNormalNOT DETECTEDThe [facility] HospitalComment on above:Performed By: #### OBIA #### [facility] [address] [address] [address] Itzel Villagranavirus ANot detectedNormalNOT DETECTEDThe [facility] Comment on above:Performed By: #### OBIA #### [facility] [address] [place] [address] Dr. Itzel LermaSalmonellaNot detectedNormalNOT DETECTEDThe [facility] Comment on above:Performed By: #### OBIA #### [facility] [address] [address] [address] Itzel LermaSapovirusNot detectedNormalNOT DETECTEDThe [facility] Comment on above:Performed By: #### OBIA #### [facility] [address] [address] [address] Itzel LermaSTECNot detectedNormalNOT DETECTEDThe [facility] HospitalCombr[facility] hospital on above:Performed By: #### OBIA #### [facility] [address] [address] [address] Itzel ReabrioNot detectedNormalNOT DETECTEDThe [facility] HospitalComment on above:Performed By: #### OBIA #### [facility] [address] [address] [address] Itzel Tylerio CholeraNot detectedNormalNOT DETECTEDThe [facility] Comment on above:Performed By: #### OBIA #### [facility] [address] [address] [address] Itzel Henao. EnterocoliticaNot detectedNormalNOT DETECTEDThe [facility] HospitalComment on above:Performed By: #### OBIA #### [facility] [address] [address] [address] Itzel Torres CHEM 8 (BAS METB)on 35-27-7401Tdqrr gap [Moles/Vol]12.6 mmol/LNormalThe [facility] HospitalComment on above:Performed By: #### OSMO #### [facility] [address] [place] [address] Dr. Itzel LermaCalcium [Mass/Vol]7.7 mg/dLCritically low8.5-10.1The [facility] HospitalComment on above:Performed By: #### OSMO #### [facility] [address] [place] [address] Dr. Itzel LermaChloride [Moles/Vol]103 mmol/MZliqly36-033Mnm [facility] Comment on above:Performed By: #### OSMO #### [facility] [address] [place] [address] Dr. Itzel LermaCO2 [Moles/Vol]16.4 mmol/LCritically low21.0-32.0The [facility] HospitalComment on above:Performed By: #### OSMO #### [facility] [address] [place] [address] Dr. Itzel LermaCreatinine [Mass/Vol]2.03 mg/dLCritically high0.70-1.30The [facility] HospitalComment on above:Performed By: #### OSMO #### [facility] [address] [place] [address] Dr. Itzel EpsteinGFR-AF COMPNTMJ32 mL/min/1.65f9Fveosxltej low>=60The [facility] HospitalComment on above:Performed By: #### OSMO #### [facility] [address] [place] [address] Dr. Itzel EpsteinGFR-NON AF ENGHXAGP58 mL/min/1.02j2Wsiuwhnjiq low>=60The [facility] HospitalComment on above:Performed By: #### OSMO #### [facility] [address] [place] [address] Dr. Itzel LermaGlucose [Mass/Vol]148 mg/dLCritically yvkh08-461LmoChillicothe HospitalComment on above:Performed By: #### OSMO #### [facility] [address] [address] [address] Itzel LermaPotassium [Moles/Vol]4.0 mmol/LNormal3.5-5.1The [facility] Comment on above:Performed By: #### OSMO #### [facility] [address] [address] [address] Itzel LermaSodium [Moles/Vol]128 mmol/LCritically yzi062-244Rdh [facility] HospitalComment on above:Performed By: #### OSMO #### [facility] [address] [place] [address] Dr. Itzel LermaUrea nitrogen [Mass/Vol]50.0 mg/dLCritically high7.0-18.0The [facility] HospitalComment on above:Performed By: #### OSMO #### [facility] [address] [place] [address] Dr. Itzel Carbajal nitrogen/Creatinine [Mass ratio]24.6 mg/mgNormalThMercy HospitalComment on above:Performed By: #### OSMO #### [facility] [address] [place] [address] Dr. Itzel Reidon gap [Moles/Vol]14.3 mmol/LNormalChillicothe Hospital Comment on above:Performed By: #### UA #### [facility] [address] [place] [address] Dr. Itzel LermaCalcium [Mass/Vol]7.8 mg/dLCritically low8.5-10.1The [facility] HospitalComment on above:Performed By: #### UA #### [facility] [address] [place] [address] Dr. Itzel LermaChloride [Moles/Vol]101 mmol/AHjgans33-189Xum [facility] Comment on above:Performed By: #### UA #### [facility] [address] [place] [address] Dr. Yilan ChangCO2 [Moles/Vol]14.7 mmol/LCritically low21.0-32.0The [facility] HospitalComment on above:Performed By: #### UA #### [facility] [address] [address] [address] Itzel LermaCreatinine [Mass/Vol]2.01 mg/dLCritically high0.70-1.30The [facility] HospitalComment on above:Performed By: #### UA #### [facility] [address] [address] [address] Robbins ChangEGFR-AF LVNAVFRU56 mL/min/1.55k0Qepzbgrwkt low>=60The [facility] HospitalComment on above:Performed By: #### UA #### [facility] [address] [place] [address] Dr. Robbins ChangEGFR-NON AF IXMWEHLS17 mL/min/1.78r4Plwgdtsbha low>=60The [facility] HospitalComment on above:Performed By: #### UA #### [facility] [address] [address] [address] Itzel LermaGlucose [Mass/Vol]152 mg/dLCritically kidb54-976Afl [facility] HospitalComment on above:Performed By: #### UA #### [facility] [address] [place] [address] Dr. Itzel LermaPotassium [Moles/Vol]4.0 mmol/LNormal3.5-5.1The [facility] Comment on above:Performed By: #### UA #### [facility] [address] [address] [address] Itzel LermaSodium [Moles/Vol]126 mmol/LCritically kin741-531Jsk [facility] HospitalComment on above:Performed By: #### UA #### [facility] [address] [address] [address] Itzel LermaUrea nitrogen [Mass/Vol]51.0 mg/dLCritically high7.0-18.0The [facility] HospitalComment on above:Performed By: #### UA #### [facility] [address] [place] [address] Dr. Itzel Carbajal nitrogen/Creatinine [Mass ratio]25.4 mg/mgNoMiami Valley HospitalComment on above:Performed By: #### UA #### [facility] [address] [place] [address] Dr. Itzel LermaPROTIMEon 20-77-9256LMD Coag (PPP) [Relative time]4.72 {INR} Critically highChillicothe HospitalComment on above:Performed By: #### PT #### [facility] [address] [place] [address] Dr. Itzel Li GUIDELINESSEE BELOWChildren's Hospital of ColumbusComment on above:Result Comment: DESIRED INR: 2.0 - 3.0 CONDITIONS NOT LISTED BELOW 2.5 - 3.5 FOR PROSTHETIC HEART VALVE REPLACEMENT 2.5 - 3.5 RECURRENT THROMBOSIS Performed By: #### PT #### [facility] [address] [place] [address] Dr. Itzel LermaPT Coag (PPP) [Time]46.1 sCritically high9.0-11.6The [facility] HospitalCombronson methodist hospital on above:Performed By: #### PT #### [facility] [address] [place] [address] Dr. Itzel Martinez RANDOM URINEon [id number] SODIUM<34Qzyxva51-78OciChillicothe HospitalComment on above:Performed By: #### OBIA #### [facility] [address] [place] [address] Dr. Itzel Munoz RANDOMon 28-83-7727Fwseszfrt Ql (U)NegativeNormalNEGATIVEChillicothe HospitalComment on above:Performed By: #### UA #### [facility] [address] [place] [address] Dr. Itzel Kearns (U)CLEARNormalCLEARChillicothe HospitalComment on above: Performed By: #### UA #### [facility] [address] [place] [address] Dr. Itzel Castanon (U)LT. YELLOWNormalYELLOWChillicothe HospitalComment on above:Performed By: #### UA #### [facility] [address] [address] [address] Itzel LermaGlucose Ql (U)NegativeNormalNEGATIVEChillicothe HospitalComment on above:Performed By: #### UA #### [facility] [address] [address] [address] Itzel LermaHemoglobin Ql (U)NegativeNormalNEGATIVEChillicothe Hospital Comment on above:Performed By: #### UA #### [facility] [address] [address] [address] Itzel LermaKetones Ql (U)NegativeNormalNEGATIVEChillicothe HospitalComment on above:Performed By: #### UA #### [facility] [address] [place] [address] Dr. Itzel LermaLEUKOCYTESNegativeNormalNEGATIVEChillicothe HospitalComment on above:Performed By: #### UA #### [facility] [address] [address] [address] Itzel LermaNitrite Ql (U)NegativeNormalNEGATIVEChillicothe HospitalComment on above:Performed By: #### UA #### [facility] [address] [address] [address] Itzel LermapH (U)6.0 [pH]Normal5-9The [facility] HospitalComment on above: Performed By: #### UA #### [facility] [address] [place] [address] Dr. Itzel LermaSPEC GRAVITY1.761Mnqvkx2.005-<=1.025The [facility] HospitalComment on above:Performed By: #### UA #### [facility] [address] [address] [address] Itzel Munoz PROTEINNegativeNormalNEGATIVE/ TRACEChillicothe Hospital Comment on above:Performed By: #### UA #### [facility] [address] [place] [address] Dr. Itzel LermaUrobilinogen Qn (U)0.2 {Reta'U}/dLNormal0.2 - 1.0The [facility] HospitalComment on above:Performed By: #### UA #### [facility] [address] [address] [address] Itzel LermaXR ABD FLAT UP_PA [place] 69-98-0418MG ABD FLAT UP_PA CHEXAMINATION: XR ABD FLAT [...] Electronically authenticated by: DORIAN YODER Date: 2022-07-10 10:16NormProvidence Hospital AUTO DIFFon [id number] #0.1 103/ulNormal0.0-0.1The [facility] HospitalComment on above:Performed By: #### OBIA #### [facility] [address] [address] [address] Itzel LermaBasophils/100 WBC (Bld)0.2 %Normal0.2-2.0The [facility] Comment on above:Performed By: #### OBIA #### [facility] [address] [address] [address] Itzel Terrazas #0.0 103/ulNormal0.0-0.7The [facility] HospitalComment on above: Performed By: #### OBIA #### [facility] [address] [address] [address] Itzel Epsteinosinophils/100 WBC (Bld)0.2 %Critically low0.9-7.0The [facility] HospitalComment on above:Performed By: #### OBIA #### [facility] [address] [place] [address] Dr. Itzel Epsteinrythrocyte distribution width (RBC) [Ratio]14.0 %Xsvvqk48.0-15.0 [facility] HospitalComment on above:Performed By: #### OBIA #### [facility] [address] [place] [address] Dr. Itzel LermaHematocrit (Bld) [Volume fraction]39.3 %Critically low42.0-54.0 The [facility] HospitalComment on above:Performed By: #### OBIA #### [facility] [address] [place] [address] Dr. Itzel LermaHemoglobin (Bld) [Mass/Vol]13.2 g/dLCritically low14.0-18.0The [facility] HospitalComment on above:Performed By: #### OBIA #### [facility] [address] [place] [address] Dr. Itzel Ortega #0.20 10e3/ulCritically high0.00-0.03The [facility] Comment on above:Performed By: #### OBIA #### [facility] [address] [place] [address] Dr. Itzel Ortega %0.9 %Critically high0.0-0.5ThMercy HospitalComment on above:Performed By: #### OBIA #### [facility] [address] [place] [address] Dr. Itzel Hahn #1.3 103/ulNormal1.2-3.8The [facility] HospitalComment on above:Performed By: #### OBIA #### [facility] [address] [place] [address] Dr. Itzel Martinezmphocytes/100 WBC (Bld)5.8 %Critically low20.5-60.0The [facility] HospitalComment on above:Performed By: #### OBIA #### [facility] [address] [place], [place] [id number] Dr. Itzel Valdez DIFF REQNONormalThe [facility] HospitalComment on above: Performed By: #### OBIA #### [facility] [address] [place] [address] Dr. Itzel Maria (RBC) [Entitic mass]29.7 gzOwihci76.9-34.0The [facility] HospitalComment on above:Performed By: #### OBIA #### [facility] [address] [place] [address] Dr. Itzel Maria (RBC) [Mass/Vol]33.6 g/bWWhtafo21.9-35.2The [facility] HospitalComment on above:Performed By: #### OBIA #### [facility] [address] [place] [address] Dr. Itzel Maria (RBC) [Entitic vol]88.3 kOMdjguy36.0-94.0Ch[facility] HospitalComment on above:Performed By: #### OBIA #### [facility] [address] [place] [address] Dr. Itzel Kirkland #1.3 103/ulCritically high0.3-0.8ThMercy Hospital Comment on above:Performed By: #### OBIA #### [facility] [address] [place] [address] Dr. Itzel Mendozaocytes/100 WBC (Bld)6.0 %Normal1.7-12.0[facility] Comment on above:Performed By: #### OBIA #### [facility] [address] [place] [address] Dr. Itzel Watkins #19.3 103/ulCritically high1.4-6.5[facility] Comment on above:Performed By: #### OBIA #### [facility] [address] [place] [address] Dr. Itzel Hidalgoutrophils/100 WBC (Bld)86.9 %Critically high43.0-75.0The [facility] HospitalComment on above:Performed By: #### OBIA #### [facility] [address] [place] [address] Dr. Itzel LermaPlatelet mean volume (Bld) [Entitic vol]9.2 fLCritically low 9.5-13.5The [facility] HospitalComment on above:Performed By: #### OBIA #### [facility] [address] [place] [address] Dr. Itzel LermaPLT246 103/knCxtnis194-771Lgo [facility] HospitalComment on above: Performed By: #### OBIA #### [facility] [address] [place] [address] Dr. Itzel LermaRBC4.45 106/ulCritically low4.70-6.10The [facility] HospitalComment on above:Performed By: #### OBIA #### [facility] [address] [place] [address] Dr. Itzel LermaWBC22.2 103/ulCritically high4.0-11.0The [facility] HospitalComment on above:Performed By: #### OBIA #### [facility] [address] [place] [address] Dr. Itzel LermaLACTATE/LACTIC ACIDon 21-67-6673Npwtlml [Moles/Vol]1.0 mmol/L Normal0.4-1.9The [facility] HospitalComment on above:Performed By: #### OSMO #### [facility] [address] [place] [address] Dr. Itzel LermaPROF 14(COMP METB)on 59-93-7194Djiluwz [Mass/Vol]3.0 g/dL Critically low3.4-5.0The [facility] HospitalComment on above:Performed By: #### CMP #### [facility] [address] [place] [address] Dr. Itzel LermaAlbumin/Globulin [Mass ratio]0.6 {ratio}NormalThe [facility] HospitalComment on above:Performed By: #### CMP #### [facility] [address] [place] [address] Dr. Itzel LermaALP [Catalytic activity/Vol]90 U/SAktshd44-921Crd [facility] HospitalComment on above:Performed By: #### CMP #### [facility] [address] [address] [address] Itzel Finch [Catalytic activity/Vol]12 U/LCritically zxm18-21Zei [facility] HospitalComment on above:Performed By: #### CMP #### [facility] [address] [address] [address] Itzel Reidon gap [Moles/Vol]18.2 mmol/LNormalThe [facility] Comment on above:Performed By: #### CMP #### [facility] [address] [address] [address] Itzel LermaAST [Catalytic activity/Vol]17 U/SLpuycg18-03Och [facility] HospitalComment on above:Performed By: #### CMP #### [facility] [address] [address] [address] Itzel LermaBilirubin [Mass/Vol]0.8 mg/dLNormal0.2-1.0The [facility] Comment on above:Performed By: #### CMP #### [facility] [address] [address] [address] Itzel LermaCalcium [Mass/Vol]7.9 mg/dLCritically low8.5-10.1The [facility] HospitalComment on above:Performed By: #### CMP #### [facility] [address] [address] [address] Itzel LermaChloride [Moles/Vol]92 mmol/LCritically ryq17-463Vmf [facility] HospitalComment on above:Performed By: #### CMP #### [facility] [address] [address] [address] Itzel LermaCO2 [Moles/Vol]14.0 mmol/LCritically low21.0-32.0The [facility] HospitalComment on above:Performed By: #### CMP #### [facility] [address] [address] [address] Itzel LermaCreatinine [Mass/Vol]2.74 mg/dLCritically high0.70-1.30The [facility] HospitalComment on above:Performed By: #### CMP #### [facility] [address] [address] [address] Itzel EpsteinGFR-AF PZKLLSWI11 mL/min/1.67x0Envrmamffo low>=60The [facility] HospitalComment on above:Performed By: #### CMP #### [facility] [address] [address] [address] Itzel EpsteinGFR-NON AF EXAYKSJY82 mL/min/1.27z6Xumaehgdmm low>=60The [facility] HospitalComment on above:Performed By: #### CMP #### [facility] [address] [place] [address] Dr. Itzel LermaGlobulin (S) [Mass/Vol]4.9 g/dLNormalThe [facility] HospitalComment on above:Performed By: #### CMP #### [facility] [address] [place] [address] Dr. Itzel LermaGlucose [Mass/Vol]169 mg/dLCritically gowg27-816Bey [facility] HospitalComment on above:Performed By: #### CMP #### [facility] [address] [place] [address] Dr. Itzel LermaPotassium [Moles/Vol]4.2 mmol/LNormal3.5-5.1The [facility] Comment on above:Performed By: #### CMP #### [facility] [address] [address] [address] Itzel LermaProtein [Mass/Vol]7.9 g/dLNormal6.4-8.2The [facility] Comment on above:Performed By: #### CMP #### [facility] [address] [place] [address] Dr. Itzel LermaSodium [Moles/Vol]120 mmol/LCritically opy359-079Fbl [facility] HospitalComment on above:Performed By: #### CMP #### [facility] [address] [address] [address] Itzel LermaUrea nitrogen [Mass/Vol]69.0 mg/dLCritically high7.0-18.0The [facility] HospitalComment on above:Performed By: #### CMP #### [facility] [address] [place] [address] Dr. Itzel LermaUrea nitrogen/Creatinine [Mass ratio]25.2 mg/mgNoWright-Patterson Medical Center on above:Performed By: #### CMP #### [facility] [address] [place] [address] Dr. Itzel Velez 54-77-5853JIT Coag (PPP) [Relative time]5.18 {INR} Critically highThe [facility] on above:Performed By: #### UA #### [facility] [address] [place] [address] Dr. Itzel Li GUIDELINESSEE BELOWChildren's Hospital of ColumbusCombr[facility] on above:Result Comment: DESIRED INR: 2.0 - 3.0 CONDITIONS NOT LISTED BELOW 2.5 - 3.5 FOR PROSTHETIC HEART VALVE REPLACEMENT 2.5 - 3.5 RECURRENT THROMBOSIS Performed By: #### UA #### [facility] [address] [place] [address] Dr. Itzel LermaPT Coag (PPP) [Time]50.2 sCritically high9.0-11.6The [facility] HospitalCom[facility] on above:Performed By: #### UA #### [facility] [address] [place] [address] Dr. Itzel Irving 56-52-6259wOAH Coag (Bld) [Time]62.9 sCritically high 22.3-36.2[facility] on above:Performed By: #### UA #### [facility] [address] [place] [address] Dr. Itzel Cramer 38-80-7355BDM7.544 uIU/mLNormal0.358-3.740The [facility] on above:Performed By: #### OBIA #### [facility] [address] [place] [address] Dr. Itzel Lerma Vital Signs Date TimeVital SignValuePerforming GmhdpqvkkEhholsfc86-41-8219 14:50-0400 Diastolic blood mm[Hg]Madyson Galvez MD Work Phone: [facility]10-06-2025 14:50-0400 Heart rate71 /Lizette Galvez MD Work Phone: [facility]10-06-2025 14:50-0400 Respiratory rate16 /minMadyson Galvez MD Work Phone: 1(249)609-[address] [place], [place] 5846710-06-2025 14:50-0400 SaO2% (BldA) [Mass fraction]98 %Madyson Galvez MD Work Phone: 1(998)341-[address] [place], [place] [address]846710-06-2025 14:50-0400 Systolic blood xweppydq298 mm[Hg]Madyson Galvez MD Work Phone: [phone]10-06-2025 11:11-0400 Body zmfuttmdpaa85.1 [degF]Madyson Galvez MD Work Phone: 1(206)937-[address] [place], [place] 5846710-06-2025 11:10-0400 Body xujyun346.72 cmAkana Galvez MD Work Phone: 7(349)212-[address] [place], [place] [address]846710-06-2025 11:10-0400 Body momaxk85 kgMadyson Galvez MD Work Phone: [address] [place], [place] [address]04-14-2023 13:11-0400 Body dwbfgu060.72 cmMD Ivan Lopez Work Phone: [facility]04-14-2023 13:11-0400 Body butzxonmsbu62.8 [degF]MD Ivan Lopez Work Phone: [facility]04-14-2023 13:11-0400 Body plaosc00.4 kgMD Ivan Lopez Work Phone: [facility]04-14-2023 13:11-0400 Diastolic blood mm[Hg]MD Ivan Lopez Work Phone: [facility]04-14-2023 13:11-0400 Heart rate73 /minMD Ivan Ambrosego Work Phone: [facility]04-14-2023 13:11-0400 Respiratory rate20 /minMD Ivan Ambrosego Work Phone: [facility]04-14-2023 13:11-0400 SaO2% (BldA) [Mass fraction]99 %MD Ivan Lopez Work Phone: [facility]04-14-2023 13:11-0400 Systolic blood ldpmtsqy486 mm[Hg]MD Ivan Lopez Work Phone: [facility]08-25-2022 15:00-0400 Body lpamjt300.72 [employer] Other [employer] Other 08-25-2022 15:00-0400Body mass index (BMI) [Ratio] 25.09 kg/r1Nvbhdocv [employer] Other [employer] Other 08-25-2022 15:00-0400Body qpznwu07.84 kgLawrjulia [employer] Other [employer] Other 05-26-2022 15:00-0400Body ehqroc011.72 [employer] Other [employer] Other 05-26-2022 15:00-0400Body mass index (BMI) [Ratio]26 kg/e6Tunckmfx [employer] Other [employer] Other 05-26-2022 15:00-0400Body exhcwk66.57 kgLawrjulia [employer] Other [employer] Other 05-26-2022 15:00-0400Diastolic blood orrozfse93 mm[Hg] Yves Sanford Other [employer] Other 05-26-2022 15:00-0400Systolic blood qhpjrelg532 mm[Hg] Yves Juvenal Other [employer] Other 02-24-2022 14:30-0500Body ytxvek060.72 cmLawmartina Sanford Other [employer] Other 02-24-2022 14:30-0500Body mass index (BMI) [Ratio] 26.76 kg/a5LzvrokagYves Cornejoack Other [employer] Other 02-24-2022 14:30-0500Body .83 kgLajustynajulia Cornejoack Other [employer] Other 02-24-2022 14:30-0500Diastolic blood wzncybfe00 mm[Hg] Yves Sanford Other [employer] Other 02-24-2022 14:30-0500Systolic blood cciykagr706 mm[Hg] Yves Sanford Other [employer] Other Encounters Encounter DateEncounter TypeCare ProviderFacilityStart: 07-04-2025 End: 69-63-2901Uxxymvpwr department patient visitMadyson Galvez MD Work Phone: [phone]-Qksdcqvqc Room Work Phone: Start: 81-07-8556thjtrtvlkzDLKOregon State [facility]erculosis Hospital Ambulatory PPGStart: 01-10-2023 End: 23-80-5561Wbdfoaqmx department patient visitMD Ivan Lopez Work Phone: [facility] Work Phone: Start: 11-24-2022 End: 64-55-8968jfwxqljpesUJ DOCTOR MISCFacility:B9Qbzsq: 11-19-2022 End: 07-39-3606Kfplnxnirt and management of inpatientDR DOCTOR MISCFacility:H1 Start: 10-29-2022 End: 73-96-3884hdikkmmdbkHgypvlmw [employer] Other [employer] Other Start: 50-71-0714Bvwltnklz encounterLayanet Sanford FPG Referral CoordinatorStart: 28-74-8992odiiymafakHvjtkyxe:EU BellevueStart: 07-10-2022 End: 27-09-4173jvolphrhwvUM DOCTOR MISCFacility:Y4Lgues: 05-23-2022 End: 91-56-0562gpyqlfmuwhZdkctark [employer]ack Other [employer] Other Start: 03-69-9787Bsffgl outpatient visit 15 minutes Yves May GastroenterologyStart: 02-21-2022 End: 42-00-9065zlvtpubvdfKnfermuw Juvenal Other [employer] Other Start: 19-34-3814Rkpklc outpatient visit 15 minutes Yves May GastroenterologyStart: 11-22-2021 End: 79-89-7957axldkvijouJxdxorji Juvenal Other [employer] Other Start: 35-91-7197Yzjxlf outpatient new 45 minutes Yves May Gastroenterology Procedures DateProcedureProcedure DetailPerforming ClinicianStart: 27-72-7079Ygnnr chest X-rayMadyson Galvez MD Work Phone: Start: 23-15-1292ID of head without contrastMD Ivan Lpoez Work Phone: Start: 84-02-1714DXX screeningDR DOCTOR MISCComment on above:Performed By: #### UA #### [facility] [address] [place] [address] Dr. Itzel Lerma Plan of Treatment DateCare ActivityDetailAuthorStart: 30-92-8441Kuhlrpnf identified in Blood by CultureBlood CultureOur Lady of Mercy Hospitaltart: 20-17-7197Qvbsziqo identified in Urine by CultureUrine CultureBlanchard Valley Health System Start: 66-06-4232Glttu Lutheran Hospitaltart: 07-04-2025 [facility] SystemPatient EducationKettering Health [facility]tr Work Phone: Patient referralKettering Health Troy Ctr Work Phone: Payers DatePayer CategoryPayerPolicy [id number]-whb [id number] [id number] 2..[id number] [id number] .[id number] [id number] [facility] [id number] Social History DateTypeDetailFacilitySex Assigned At [facility] DentistKansas City Va Medical CenterProlexic Technologies Other Start: 01-10-2023 End: 96-10-1527Fxbuomp smoking status NHISNever smoked tobacco (finding) [facility] Hospitaltart: 68-94-6511Kbr Assigned At [facility] Medical CenterexMale (finding)[facility] Evaluation note 05-23-2022 Note Date & LzamNncuLwxkmmis62-69-0735 Evaluation note* Encounter Date Diagnosis Assessment Notes Treatment Notes Treatment Clinical Notes Apr, Diarrhea (ICD-10 - R19.7) patient states does not seem to bad patient does use the imodium as needed Apr,Nausea (ICD-10 - R11.0)will start zofran [employer] Other Evaluation note 02-21-2022 Note Date & RikpHxufUvgbexmz66-00-3825 Evaluation note* Encounter Date Diagnosis Assessment Notes Treatment Notes Treatment Clinical Notes January, Weight loss (ICD-10 - R63.4) January,2Diarrhea (ICD-10 - R19.7) Start Imodium every morning Encouraged low fodmap diet. Education given to patient again. 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) January,Frequent bowel movements (ICD-10 - R19.4) [employer] Other Evaluation note 11-22-2021 Note Date & GcfuHztaMewbwlxs02-76-5768 Evaluation note* Encounter Date Diagnosis Assessment Notes Treatment Notes Treatment Clinical Notes Oct, Weight loss (ICD-10 - R63.4) OBTAIN [facility] IN[facility] STAY COPY OF LOW FODMAP DIET GIVEN TO PT RTO 3 MONTHS Oct,2Diarrhea (ICD-10 - R19.7) [employer] Other Evaluation note Note Date & TypeNoteFacilityEvaluation noteNo assessment information available [facility] Work Phone: Evaluation note Note Date & TypeNoteFacilityEvaluation noteNo InformationNortLehigh Valley Hospital [facility] [address] [facility] Other History general Narrative - Reported Note Date & TypeNoteFacilityHistory general Narrative - Reported* Type Description Date Surgical History bowel resection [facility] Commun.it Other Hospital Discharge instructions Note Date & TypeNoteFacilityHospital Discharge instructions Additional Instructions Please return to emergency department for any new or worrisome symptoms including any chest pain, shortness of breath, vomiting, fever, lightheadedness. Follow-up with your family physician regarding your medications. They may need to be adjusted further given your recent bout of low blood pressure.[facility] Work Phone: Reason for referral (narrative) Note Date & TypeNoteFacilityReason for referral (narrative)No reason for referral information availableKettering Health [facility] Ctr Work Phone: Reason for visit Narrative Note Date & TypeNoteFacilityReason for visit NarrativeREFERRED BY KEVIN LOPEZ FOR WEIGHT LOSS. PT DOES TAKE MEDICATIONS, HOWEVER HE DOES NOT RECALL NAMES OR DOSAGES OR HAVE A LIST TO REVIEW, (REFERRAL NOTE RECEIVED)[employer] [facility] Commun.it Other Chief Complaint and Reason for Visit Chief Complaint fall Chief Complaint Admit Date [place] sent in July 04, 2025 10 [...] KNOW NAMES OF MEDICATIONS HE IS ON.NEW MD AUTH Care Teams (unrecognized sec tion and content) Team Status: Active Member Role Status Dates Ivan Lopez MD Primary Care Provider Active Team Status: Inactive Member Role Status Dates Ivan Lopez MD Primary Care Provider Active Ajit Josefa , APRNEmergency ProviderActive Team Status: Active Member Role Status Dates Karoline Johnson (Clinic) , DO [facility] Primary Care Prov ider Active Team Status: Inactive Member Role Status Dates Madyson Galvez MD Emergency Provider Active Start: July 04, 2025 End: July 04, 2025Jose Albertosaji Combsey (Clinic) , DO [facility]Primary Care Provider ActiveStart: July 04, 2025 End: July 04, 2025 Goals (unrecognized section and content) Goals may be documented in a n alternate section (unrecognized sect ion and content) No Status Records FoundNo Status Records FoundNo Status Records FoundNo Status Records Found INFORMATION SOURCE (unrecogn ized section and content) DATE CREATED AUTHOR 02/12/2023 [facility] DATE CREATED AUTHOR AUTHOR'S ORGANIZ ATION 03/18/2023 [facility] DATE CREATED AUTHOR AUTHOR'S ORGANIZ ATION 07/10/2024 [facility] DATE CREATED AUTHOR AUTHOR'S ORGANIZ ATION 07/16/2025 [facility] FOR RECORDS PERTAINING TO [...] BE BASED ON THE PRIMARY CLINICAL RECORDS. [facility] [employer] [facility]. provides no warranty or guarantee of the accuracy or completeness of information in this document.
[2025-07-20 02:58] LABS: Magnesium 1.9 mg/dL (1.8-2.4)
[2025-07-20] MEDS: ALBUMIN HUMAN 25 GM/100 ML PREMIX IV (03:00)
[2025-07-20] MEDS: LEVOTHYROXINE SODIUM 25 MCG TABLET 50 MCG PO (05:34)
--- OUTSIDE RECORDS SUMMARY | 2025-07-20 06:02 | XMS_ITS | Clinical Summary ---
Author Organization [facility] Address [address] [facility] [place] [address] Care Team Providers Care Card Maker Name Role Phone Aurelio Gates MD Unavailable [phone] Mable Corona MD Primary Care Provider [phone] Social History Tobacco UseTypesPacks/DayYears UsedDateSmoking Tobacco: Never AssessedSex and Gender InformationValueDate RecordedSex Assigned at BirthNot on fileLegal Sex Male12/11/2022 7:18 PM EDTGender IdentityNot on fileSexual OrientationNot on file Plan of Treatment Health MaintenanceDue DateLast DoneCommentsMedicare Annual Wellness (AWV) 1941Influenza Vaccine (#1)51, 07/31/2023, 06/28/2022, Additional history existsPneumococcal Vaccine: 65+ EywxbWgmmvokub18/25/2025, 10/25/2016, 06/21/2015, Additional history exists Insurance Care Teams Team MemberRelationshipSpecialtyStart DateEnd Date Aurelio Gates MD [address] [address] PCP - [place]09/29/21 Mable Corona MD [address] [facility] [place] [address] PCP - Generalmily Medicine06/16/25
--- OUTSIDE RECORDS SUMMARY | 2025-07-20 06:02 | XMS_ITS | Clinical Summary ---
Author Organization [facility] Address [address] 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
--- OUTSIDE RECORDS SUMMARY | 2025-07-20 06:02 | XMS_ITS | Clinical Summary ---
Author Organization [employer] Address [facility] [address] [place] [address] Care Team Providers Care Customer Service Dispatcher Name Role Phone Mable Corona MD Primary Care Provider [phone] Social History Tobacco UseTypesPacks/DayYears UsedDateSmoking Tobacco: Never AssessedSex and Gender InformationValueDate RecordedSex Assigned at BirthNot on fileLegal Sex Male08/16/2021 11:16 AM ESTGender IdentityNot on fileSexual OrientationNot on file Plan of Treatment Health MaintenanceDue DateLast DoneCommentsDepression Ssxdpfega35/18/1953Tobacco Kutclkcex71/18/1953DTaP,Tdap and Td Vaccines (1 - Tdap)01/15/1960Zoster (Shingles) Vaccine (1 of 2)1991Fall Risk Owuwxkdks59/18/2006COVID-19 Vaccine (3 - 2024- season)503/05/2021, 11/06/2020Influenza Vaccine /10/2022, 05/30/2021, 08/19/2009 [employer] Not on file Care Teams Team MemberRelationshipSpecialtyStart DateEnd Date Mable Corona MD PCP - GeneralFamily Tmpncruh89/18/21
--- OUTSIDE RECORDS SUMMARY | 2025-07-20 06:02 | XMS_ITS | CCD ---
Author Organization [facility] Care Team Providers Care Director Supply Name Role Phone Yves Sanford Unavailable MD [...] Care Unavailable Madyson Galvez MD Emergency Provider [phone] [facility] (Clinic) Karoline HERNÁNDEZ Primary Care Provider [facility] (Clinic)Karoline Primary Care UnavailMadyson Lopez Attending Unavailable Madyson Galvez Admitting Unavailable Allergies Allergy ClassificationReported Allergen(s)Allergy TypeDate of OnsetReaction(s) Facility (2 sources)Ondansetron; Translations: [ondansetron]Drug Fdyvuzz59-64-2638Ueznfn [facility] (1 source)OndansetronDrug Ieemuaq65-24-5837MapNew[facility] Medications Current Medications MedicationDrug Class(es)DatesSig (Normalized)Sig (Original)atorvastatin 10 mg oral tablet (1 source)HMG-CoA Reductase InhibitorStart: 76-34-6913ffmo 1 tablet by mouth once dailyAtorvastatin 10 mg tablet Active 10 MG PO Daily July 04, 2025 12:00am Complies with drug therapybrimonidine tartrate 2 mg/ml / timolol 5 mg/ml ophthalmic solution (1 source)alpha-Adrenergic Agonist, beta-Adrenergic BlockerStart: 07-04-2025 Brimonidine-Timolol 0.2-0.5 % drops Active 1 DROPS EYE-BOTH Daily July 04, 2025 12:00am Complies with drug therapyempagliflozin 25 mg oral tablet (1 source)Sodium-Glucose Cotransporter 2 InhibitorStart: 52-50-9274rymf 1 tablet by mouth once dailyEmpagliflozin 25 mg tablet Active 12.5 MG PO Daily July 04, 2025 12:00am Complies with drug therapyfinasteride 5 mg oral tablet (1 source)5-alpha Reductase InhibitorStart: 19-04-0728sgow 1 tablet by mouth once dailyFinasteride 5 mg tablet Active 5 MG PO Daily July 04, 2025 12:00am Complies with drug therapyfurosemide 40 mg oral tablet (1 source)Loop DiureticStart: 59-14-8740shcq 1 tablet by mouth once daily Furosemide (Lasix) 40 mg tablet Active 40 MG PO daily July 04, 2025 12:00am Complies with drug therapyHydrophilic ointment (1 source)Start: 11-87-0308Aresywqwufp ointment Active 1 APPLIC TOPICAL Daily as needed for dry skin July 04, 2025 12:00amComplies with drug therapy latanoprost 0.05 mg/ml ophthalmic solution (1 source)Prostaglandin AnalogStart: 92-29-5146jkem 1 drop(s) into the eye(s) once daily in the eveningLatanoprost 0.005 % drops Active 1 DROPS EYE-BOTH Every evening July 04, 2025 12:00am Complies with drug therapylevothyroxine sodium 0.075 mg oral tablet (1 source)l-ThyroxineStart: 90-49-2314qvnt 1 tablet by mouth once daily Levothyroxine (Euthyrox) 75 mcg tablet Active 75 MCG PO Daily July 04, 2025 12:00am Complies with drug therapylidocaine 0.05 mg/mg medicated patch (1 source)Antiarrhythmic, Amide Local AnestheticStart: 67-69-6740mestc 1 dose topically once dailyLidocaine (Dermacinrx Lidocan) 5 % adhesive patch,medicated Active 2 PATCH TOPICAL Daily July 04, 2025 12:00am leave on most painful area for up to 12 hrs Complies with drug therapylisinopril 2.5 mg oral tablet (1 source)Angiotensin Converting Enzyme InhibitorStart: 96-51-3377vdoq 1 tablet by mouth once dailyLisinopril 2.5 mg tablet Active 2.5 MG PO Daily July 04, 2025 12:00am Complies with drug therapyloperamide hydrochloride 2 mg oral tablet (2 sources)Opioid Agonisttake 1 tablet by mouth every six hoursImodium A-D 2 MG 1 tablet as needed Orally Four times a day Activemetoclopramide 5 mg oral tablet (1 source)Dopamine-2 Receptor AntagonistStart: 21-59-0680teyn 1 tablet by mouth three times dailyMetoclopramide Hcl 5 mg tablet Active 5 MG PO Three times daily July 04, 2025 12:00am Complies with drug cphomti96 hr metoprolol succinate 100 mg extended release oral tablet (1 source)beta-Adrenergic BlockerStart: 53-79-9151Ngrjwmwbed Succinate (Toprol Xl) 100 mg tablet extended release 24 hr Active 150 MG PO Daily July 04, 2025 12:00am Complies with drug therapypantoprazole 40 mg delayed release oral tablet (1 source)Proton Pump InhibitorStart: 13-22-3236yfus 1 tablet by mouth once dailyPantoprazole 40 mg tablet,delayed release (DR/EC) Active 40 MG PO Daily July 04, 2025 12:00am Complies with drug therapyspironolactone 25 mg oral tablet (1 source)Aldosterone AntagonistStart: 43-26-8927doxi 1 tablet by mouth once dailySpironolactone 25 mg tablet Active 25 MG PO Daily July 04, 2025 12:00am Complies with drug therapytamsulosin hydrochloride 0.4 mg oral capsule (1 source)alpha-Adrenergic BlockerStart: 49-52-1437trbe 1 capsule by mouth once dailyTamsulosin 0.4 mg capsule Active 0.4 MG PO Daily July 04, 2025 12:00am Complies with drug therapywarfarin sodium 2.5 mg oral tablet (5 sources)Vitamin K AntagonistStart: 56-55-8231ntod 1 tablet by mouth once dailyWarfarin 2.5 mg tablet Active 2.5 MG PO Daily July 04, 2025 12:00am Complies with drug therapyCoumadin Active Completed/Discontinued Medications MedicationDrug Class(es)DatesSig (Normalized)Sig (Original)ondansetron 4 mg disintegrating oral tablet (4 sources)Serotonin-3 Receptor AntagonistStart: 07-09-2022 End: 01-03-5956duya 1 tablet by mouth every eight hours as needed for nausea and vomitingOndansetron 4 mg tablet,disintegrating Discontinued 4 MG PO Q8H as needed for nausea and vomiting 62 July 09, 2022 12:00am January 10, 2023 1:14pmStart: 30-04-2187xjmf 1 tablet by mouth every twenty-four hoursOndansetron HCl 4 MG 1 tablet Orally Once a day for 30 day(s) Apr, Active Problems Active Problems Problem ClassificationProblemDateDocumented DateEpisodic/ChronicAcute and unspecified renal failure (3 sources)Injury of kidney; Translations: [Acute kidney failure, unspecified] Onset: 151110-81-3689RuwehcucYkmrsdz on above:Problem List clean-up per request of Phys. EHR CmteBacterial infection; unspecified site (1 source)Helicobacter pylori [H. pylori] as the cause of diseases classified elsewhere; Translations: [H PYLORI CAUSE OF DZ CLASS ELSW]Onset: 02-11-2023 EpisodicBiliary tract disease (1 source)Calculus of gallbladder without cholecystitis without obstruction; Translations: [CALCU GB W/O CHOLECYST W/O OBST]Onset: 20-03-4420QieyoinkNjbylfh dysrhythmias (1 source)Unspecified atrial fibrillation; Translations: [UNSPECIFIED ATRIAL FIBRILLATION]Onset: 34-22-5435DezgijzHlwiyom kidney disease (1 source)Chronic kidney disease; Translations: [Chronic kidney disease, unspecified]11-75-1778FubqrxqPailvggsjm heart failure; nonhypertensive (1 source)Heart failure, unspecified; Translations: [HEART FAILURE UNSPECIFIED] Onset: 20-91-6923XvxfigmEzimhoom mellitus with complications (1 source)Type 2 diabetes mellitus with diabetic autonomic (poly)neuropathy; Translations: [TYPE 2 DM W/DIAB AUTONOM NEUROPATHY]Onset: 62-63-5621Xhvlnmi Diabetes mellitus without complication (1 source)Type 2 diabetes mellitus without complications; Translations: [TYPE 2 DM WITHOUT COMPLICATIONS]Onset: 41-88-1421IdkiuniVwflacev of white blood cells (1 source)Elevated white blood cell count, unspecified; Translations: [ELEVATED WHITE BLOOD CELL COUNT UNS]Onset: 62-71-1700BfjikbxKshfjffku of lipid metabolism (2 sources)Pure hypercholesterolemia, unspecified; Translations: [Hyperlipidemia, unspecified]Onset: 11-70-6866RkoxcevG Codes: Adverse effects of medical drugs (1 source)Adverse effect of anticoagulants, initial encounter; Translations: [ADVERSE EFFECT ANTICOAG INITIALENC]Onset: 05-39-8300QadtnxvnOszlqkhkn hypertension (1 source)Essential (primary) hypertension; Translations: [ESSENTIAL PRIMARY HYPERTENSION]Onset: 51-07-6905DripbxjJftwe and electrolyte disorders (2 sources)Hypo-osmolality and hyponatremia; Translations: [Dehydration]Onset: 96-91-6225VnnpsqxzSamxescqg and duodenitis (1 source)Gastritis, unspecified, without bleeding; Translations: [GASTRITIS UNS WITHOUT BLEEDING]Onset: 15-40-9644NlppvcjnCgpwyjqc (1 source)Unspecified glaucoma; Translations: [UNSPECIFIED GLAUCOMA]Onset: 85-63-3309AyuvsiyTiduzeqvqso of prostate (1 source)Benign prostatic hyperplasia without lower urinary tract symptoms; Translations: [BENIGN PROSTATIC HYPRPLASIA WO LUTS]Onset: 55-03-4118Zjonucd Hypertension with complications and secondary hypertension (1 source)Hypertensive heart disease with heart failure; Translations: [HTN HEART DISEASE W/HEART FAIL]Onset: 29-24-4949BthqopbTuwgmvdvcv obstruction without hernia (4 sources)Unspecified intestinal obstruction, unspecified as to partial versus complete obstruction; Translations: [Partial intestinal obstruction, unspecified as to cause]Onset: 18-67-2733TogwglauTtuuic and vomiting (6 sources)Nausea; Translations: [Nausea and vomiting]Onset: 05-23-2022 Resolved: 07-80-7210YyrxsgtcIngvwfe on above:Problem List clean-up per request of Phys. EHR CmteNoninfectious gastroenteritis (1 source)Noninfective gastroenteritis and colitis, unspecified; Translations: [NONINFECTIVE GE AND COLITIS UNS]Onset: 85-88-3638EzkxiwitSsbyn aftercare (1 source)alf (current) use of anticoagulants; Translations: [NURSING HOME CURRNT USE ANTICOAGULANTS]Onset: 45-04-3440BvfebzmqCzsoq aftercare (1 source)Other long winder tender (current) drug therapy; Translations: [OTH NURSING HOME CURRENT DRUG THERAPY]Onset: 54-60-4945XaqopybvHkeln circulatory disease (6 sources)Hypotension, unspecified; Translations: [HYPOTENSION UNSPECIFIED] Onset: 70-16-0806SxzebigzTvhyo circulatory disease (1 source)Low blood pressure; Translations: [Hypotension, unspecified]07-04-2025 EpisodicOther disorders of stomach and duodenum (1 source)Gastroparesis; Translations: [GASTROPARESIS]Onset: 90-96-9880Cvlscquw Other gastrointestinal disorders (3 sources)Altered bowel function; Translations: [Change in bowel habit]Episodic Other gastrointestinal disorders (5 sources)Diarrhea; Translations: [Diarrhea, unspecified]86-46-7203Rxtpbvyu Comment on above:Problem List clean-up per request of Phys. EHR CmteOther injuries and conditions due to external causes (2 sources)Injury of head; Translations: [Unspecified injury of head, initial encounter]63-55-2404FtqcrjwfLgpcbix on above:Problem List clean-up per request of Phys. EHR CmteOther injuries and conditions due to external causes (1 source)Systemic inflammatory response syndrome (SIRS) of non-infectious origin without acute organ dysfunction; Translations: [SIRS NON-INF ORIG NO AC ORGAN DYSF]Onset: 70-45-0962TcsvfxjqDwhsj nutritional; endocrine; and metabolic disorders (4 sources)Weight loss; Translations: [Abnormal weight loss]EpisodicOther screening for suspected conditions (not mental disorders or infectious disease) (1 source)Abnormal coagulation profile; Translations: [ABNORMAL COAGULATION PROFILE]Onset: 90-95-2140PrahdcphKvyfkgbw codes; unclassified (3 sources)History of excision of intestinal structure; Translations: [Acquired absence of other specified parts of digestive tract]EpisodicResidual codes; unclassified (2 sources)Acquired absence of other specified parts of digestive tract; Translations: [ACQ ABSENCE OTH PART DIGESTV TRACT]Onset: 02-21-2022 Resolved: 62-47-3397CfphliixYsgecoru codes; unclassified (1 source)Pain, unspecified; Translations: [Pain, unspecified]Onset: 07-06-2024 EpisodicScreening and history of mental health and substance abuse codes (1 source)Personal history of nicotine dependence; Translations: [PERSONAL HISTORY OF NICOTINE DEPEND]Onset: 50-10-1387YaogoybyInrepaprfdlw (1 source)Chronic atrial fibrillation, unspecified; Translations: [CHRONIC ATRIAL FIBRILLATION UNSPEC]Onset: 61-45-4785Reojlechehtp (1 source)ACIDOSIS UNSPECIFIED; Translations: [ACIDOSIS UNSPECIFIED]Onset: 51-43-4751Gjsicbowzfzo (1 source)CONTACT W/AND (SUSP) EXPOS COVID-19; Translations: [CONTACT W/AND (SUSP) EXPOS COVID-19]Onset: 02-11-2023 Past or Other Problems Problem ClassificationProblemDateDocumented DateEpisodic/ChronicOther gastrointestinal disorders (3 sources)Diarrhea, unspecifiedOnset: 11-22-2021 Resolved: 62-42-5202VhiqrzbbBrjag gastrointestinal disorders (1 source)Change in bowel habitOnset: 02-21-2022 Resolved: 32-55-9091TrspunuzAovos nutritional; endocrine; and metabolic disorders (2 sources)Abnormal weight lossOnset: 11-22-2021 Resolved: 93-87-8063Oyhthdby Results Test NameValueInterpretationReference RangeFacilityAlanine aminotransferase [Enzymatic activity/volume] in Serum or PlasmaOrdered By: Madyson Galvez on 28-27-6059OKM [Catalytic activity/Vol]29 U/LNormal7-52[facility]S HospitalComment on above:Performed By: #### BNP, HS TROP, CUBLD, CMP, PT, LACTIC, CBC #### [facility] [address] [place] [address] USAAlbumin [Mass/volume] in Serum or Plasma by Bromocresol green (BCG) dye binding methoOrdered By: Madyson Galvez on 78-80-8309Oarnege BCG dye [Mass/Vol]3.8 g/dL3.5-5.7FCincinnati Children's Hospital Medical CenterAlkaline phosphatase [Enzymatic activity/volume] in Serum or PlasmaOrdered By: Madyson Galvez on 11-49-1745LUO [Catalytic activity/Vol]90 U/SBntrkq44-665HonnjrodkDayton Children'S HospitalComment on above:Performed By: #### BNP, HS TROP, CUBLD, CMP, PT, LACTIC, CBC #### [facility] [address] [place] [address] USAAppearance of UrineOrdered By: Madyson Galvez on 40-27-2280Hehplnzsls (U)ClearNormalClearDayton Children'S HospitalComment on above:Order Comment: Name Collection Type:: Clean-Voided MidstreamPerformed By: #### BNP, HS TROP, CUBLD, CMP, PT, LACTIC, CBC #### [facility] [address] [place] [address] USAAspartate aminotransferase [Enzymatic activity/volume] in Serum or PlasmaOrdered By: Madyson Galvez on 22-82-4970TUT [Catalytic activity/Vol]27 U/UExmfqz45-47VgoifprpgDayton Children'S HospitalComment on above: Performed By: #### BNP, HS TROP, CUBLD, CMP, PT, LACTIC, CBC #### [facility] [address] [place] [address] USABNP ser/plasOrdered By: Madyson Galvez on 07-04-2025 Natriuretic peptide B (Bld) [Mass/Vol]267.0 pg/mLHigh5-100Day[facility]'S HospitalComment on above:Result Comment: PERFORMED BY: [place] [address] PATHOLOGIST JOB COST ESTIMATOR REYMUNDO POOLE M.D.Performed By: #### BNP, HS TROP, CUBLD, CMP, PT, LACTIC, CBC #### [facility] [address] [place] [address] USABasophils [#/volume] in Blood by Automated countOrdered By: Madyson Galvez on 58-17-7556Epxzttovq (Bld) [#/Vol]0.0 10*3/uLNormal0.0-0.2 [facility]S HospitalComment on above:Result Comment: PERFORMED BY: [place] [address] PATHOLOGIST JOB COST ESTIMATOR REYMUNDO POOLE M.D.Performed By: #### BNP, HS TROP, CUBLD, CMP, PT, LACTIC, CBC #### [place] [address] USABasophils/100 leukocytes in Blood by Automated count Ordered By: Madyson Galvez on 48-23-8320Refbgyjvf/100 WBC (Bld)0.4 %Normal. [facility]'S HospitalComment on above:Performed By: #### BNP, HS TROP, CUBLD, CMP, PT, LACTIC, CBC #### [place] [address] USABilirubin Test strip Ql (U)Ordered By: Madyson Galvez on 69-63-1848Qfnplfyvg Ql (U)NegativeNegativeDayton Children'S Hospital Bilirubin.total [Mass/volume] in Serum or PlasmaOrdered By: Madyson Galvez on 85-74-8869Uxhqneweh [Mass/Vol]0.7 mg/dLNormal0.3-1.0Day[facility]'S HospitalComment on above:Performed By: #### BNP, HS TROP, CUBLD, CMP, PT, LACTIC, CBC #### [place] [address] USABlood Cultureon 17-62-8526Itabkyyb identified Cx Nom (Bld) NO GROWTH 5 DAYS PERFORMED BY: [place] [address] PATHOLOGIST JOB COST ESTIMATOR REYMUNDO POOLE M.D.NormalThe [facility] Physician GroupComment on above: Performed By: #### BNP, HS TROP, CUBLD, CMP, PT, LACTIC, CBC #### [facility] [address] [place] [address] USABacteria identified Cx Nom (Bld)NO GROWTH 5 DAYS PERFORMED BY: [place] [address] PATHOLOGIST JOB COST ESTIMATOR REYMUNDO POOLE M.D.[facility] Physician GroupComment on above: Performed By: #### BNP, HS TROP, CUBLD, CMP, PT, LACTIC, CBC #### [place] [address] USACalcium [Mass/volume] in Serum or PlasmaOrdered By: Madyson Galvez on 04-90-3098Rrmgtpl [Mass/Vol]9.0 mg/dLNormal8.6-10.3FCincinnati Children's Hospital Medical CenterComment on above:Performed By: #### BNP, HS TROP, CUBLD, CMP, PT, LACTIC, CBC #### [place] [address] USACarbon dioxide, total [Moles/volume] in Serum or Plasma Ordered By: Madyson Galvez on 20-46-7763GU5 [Moles/Vol]21.6 mmol/LNormal 21.0-31.0Day[facility] Children'S HospitalComment on above:Performed By: #### BNP, HS TROP, CUBLD, CMP, PT, LACTIC, CBC #### [place] [id number] USAChloride [Moles/volume] in Serum or PlasmaOrdered By: Madyson Galvez on 87-71-4597Mnzwdhmx [Moles/Vol]107 mmol/BUndvie86-605XpqagaotzDayton Children'S HospitalComment on above:Performed By: #### BNP, HS TROP, CUBLD, CMP, PT, LACTIC, CBC #### [place] [id number] USAColor of Urine by AutoOrdered By: Madyson Galvez on 44-06-3033Bvuqh (U)YellowNormalYellowDayton Children'S HospitalComment on above:Order Comment: Name Collection Type:: Clean-Voided MidstreamPerformed By: #### BNP, HS TROP, CUBLD, CMP, PT, LACTIC, CBC #### [place] [address] USAComplete Blood Count Auto Diffon 73-67-0502Clks Corpuscular HGB Conc33.3 g/xLUiumgy97.5-35.6The [facility] Physician GroupComment on above:Performed By: #### BNP, HS TROP, CUBLD, CMP, PT, LACTIC, CBC #### [place] [address] USAMonocytes/100 WBC (Bld)18.67 %Normal0.00-20.00The [facility] Physician GroupComment on above:Performed By: #### BNP, HS TROP, CUBLD, CMP, PT, LACTIC, CBC #### [place] [address] USANRBC%0.1 /100{WBC}Normal0-0.5The [facility] Comment on above:Performed By: #### BNP, HS TROP, CUBLD, CMP, PT, LACTIC, CBC #### [place] [address] USAWhite Blood Count7.7 [CFU]/mLNormal4.1-10.5The [facility] Physician GroupComment on above:Performed By: #### BNP, HS TROP, CUBLD, CMP, PT, LACTIC, CBC #### [place] [address] USAComprehensive Metabolic Panelon 59-58-5433Ylhxlmq [Mass/Vol]3.8 g/dLNormal3.5-5.7The [facility] Physician [facility] HospitalComment on above: Performed By: #### BNP, HS TROP, CUBLD, CMP, PT, LACTIC, CBC #### [place] [address] USACreatinine Clr Calc Vdptrbba00.54NormalThe [facility] Physician GroupComment on above:Result Comment: PERFORMED BY: [place] [address] PATHOLOGIST JOB COST ESTIMATOR REYMUNDO POOLE M.D.Performed By: #### BNP, HS TROP, CUBLD, CMP, PT, LACTIC, CBC #### [facility] [address] [place] [id number] USAGFR/1.73 sq M.predicted MDRD (S/P/Bld) [Vol rate/Area] 59.632 mL/min/{1.73_m2}NormalThe [facility] Physician GroupComment on above: Performed By: #### BNP, HS TROP, CUBLD, CMP, PT, LACTIC, CBC #### [facility] [address] [place] [address] USACreatinine [Mass/volume] in Serum or PlasmaOrdered By: Madyson Galvez on 50-34-0757Sydxgmggja [Mass/Vol]1.20 mg/dLNormal0.70-1.30 [facility]S HospitalComment on above:Performed By: #### BNP, HS TROP, CUBLD, CMP, PT, LACTIC, CBC #### [facility] [address] [place] [id number] USAECG 12 lead ECGon 70-40-8589ZHA [address] [facility] [address] [place] [address] Electrocardiograph Report Signed Patient: Navin Christine MR#: [id number] : 1940 Acct:[id number] Age/Sex: 85 / M ADM Date: 07/04/25 Loc: ER Room: Type: [facility] ER Attending Dr: Ordering Provider: Madyson [...] branch block Confirmed by Madyson Galvez MD ([id number]) on 07/04/2025 3:00:33 PM Referred By: Electronically Signed By: Madyson Galvez MD Transcribed By: MUS Signed By Madyson Galvez MD 03/[address] [place] [address] Physician GroupECG [address] [facility] [address] [place] [address] Electrocardiograph Report Signed Patient: Navin Christine SR MR#: [id number] : 1940 Acct:[id number] Age/Sex: 85 / M ADM Date: 07/04/25 Loc: ER Room: Type: [facility] ER Attending Dr: Ordering Provider: Madyson [...] branch block Confirmed by Madyson Galvez MD ([id number]) on 07/04/2025 3:00:49 PM Referred By: Electronically Signed By: Madyson Galvez MD Transcribed By: MUS Signed By Madyson Galvez MD 03/[address] [place] [address] Physician GroupEosinophils [#/volume] in Blood by Automated countOrdered By: Madyson Galvez on 44-38-5075Qozktolzilo (Bld) [#/Vol] 0.1 10*3/uLNormal0.0-0.45Day[facility]'S HospitalComment on above: Performed By: #### BNP, HS TROP, CUBLD, CMP, PT, LACTIC, CBC #### [facility] [address] [place] [address] USAEosinophils/100 leukocytes in Blood by Automated count Ordered By: Madyson Galvez on 77-90-4020Yofqaayinkl/100 WBC (Bld)1.6 %Normal. [facility]'S HospitalComment on above:Performed By: #### BNP, HS TROP, CUBLD, CMP, PT, LACTIC, CBC #### [facility] [address] [place] [address] USAErythrocyte distribution width [Ratio] by Automated count Ordered By: Madyson Galvez on 64-87-3618Xffrvvanbbs distribution width (RBC) [Ratio]16.3 %High12.0-14.8Day[facility]'S HospitalComment on above: Performed By: #### BNP, HS TROP, CUBLD, CMP, PT, LACTIC, CBC #### [facility] [address] [place] [address] USAErythrocytes [#/volume] in Blood by Automated countOrdered By: Madyson Galvez on 10-85-5190KHG (Bld) [#/Vol]4.20 10*6/uLNormal3.90-5.60 [facility]S HospitalComment on above:Performed By: #### BNP, HS TROP, CUBLD, CMP, PT, LACTIC, CBC #### [facility] [address] [place] [address] USAGlomerular filtration rate [Volume Rate/Area] in Serum, Plasma or Blood by CreatinineOrdered By: Madyson Galvez on 94-87-9471Tizgbnzhct filtration rate [Volume Rate/Area] in Serum, Plasma or Blood by Vnqsvbcrht96.632 mL/MinDayton Children'S HospitalGlucose [Mass/volume] in Serum or Plasma Ordered By: Madyson Gavlez on 44-97-4681Zglhqoi [Mass/Vol]110 mg/pIWcbs53-715 [facility]S HospitalComment on above:ADA recommended reference rangeRandom Glucose [...] CMP, PT, LACTIC, CBC #### [facility] [address] [place] [address] USAGlucose [Mass/volume] in Urine by Test stripOrdered By: Madyson Galvez on 19-10-3407Yqernea Test strip (U) [Mass/Vol]>=1000 mg/dLHigh NormalDayton Children'S HospitalHematocrit [Volume Fraction] of Blood by Automated countOrdered By: Madyson Galvez on 18-94-1104Bdoxobzyok (Bld) [Volume fraction]40.1 %Vjhtwo99.8-50.0[facility]'S HospitalComment on above: Performed By: #### BNP, HS TROP, CUBLD, CMP, PT, LACTIC, CBC #### [facility] [address] [place] [id number] USAHemoglobin Test strip Ql (U)Ordered By: Madyson Galvez on 46-01-8874Ubeqvsvpea Ql (U)NegativeNegativeDayton Children'S Hospital Hemoglobin [Mass/volume] in BloodOrdered By: Madyson Galvez on 07-04-2025 Hemoglobin (Bld) [Mass/Vol]13.4 g/yYPvynih14.0-17.0[facility]'S HospitalComment on above:Performed By: #### BNP, HS TROP, CUBLD, CMP, PT, LACTIC, CBC #### [facility] [address] [place] [id number] USAINR in Platelet poor plasma by Coagulation assayOrdered By: Madyson Galvez on 46-15-9638SXY Coag (PPP) [Relative time]1.7 {INR}Normal [facility]'S HospitalComment on above:INR Therapeutic Range A) Pre- [...] heart valves: 3 - 4.5 PERFORMED BY: [place] [address] PATHOLOGIST JOB COST ESTIMATOR REYMUNDO POOLE M.D.Performed By: #### BNP, HS TROP, CUBLD, CMP, PT, LACTIC, CBC #### [facility] [address] [place] [address] USAKetones [Presence] in Urine by Test stripOrdered By: Madyson Galvez on 58-88-0977Sxgqyfg Ql (U)NegativeNormalNegCleveland Clinic Fairview HospitalComment on above:Order Comment: Name Collection Type:: Clean-Voided MidstreamPerformed By: #### BNP, HS TROP, CUBLD, CMP, PT, LACTIC, CBC #### [facility] [address] [place] [address] USALactate [Moles/volume] in Serum or PlasmaOrdered By: Madyson Galvez on 13-10-8005Dcdpzwb [Moles/Vol]1.0 mmol/LNormal0.5-1.9[facility]'S HospitalComment on above:Lactic Acid reference range has been updated to 0.5 1.9 mmol/L and the critical range of 2.0 or greater.Result Comment: Lactic Acid reference range has been updated to 0.5 ? 1.9 mmol/L and the critical range of 2.0 or greater. PERFORMED BY: [place] [address] PATHOLOGIST JOB COST ESTIMATOR REYMUNDO POOLE M.D.Performed By: #### BNP, HS TROP, CUBLD, CMP, PT, LACTIC, CBC #### [place] [id number] USALeukocyte esterase [Presence] in Urine by Test strip Ordered By: Madyson Galvez on 61-11-2272Qfbvpgzbz esterase Test strip Ql (U) NegativeNormalNegCleveland [facility] Fairview HospitalComment on above:Order Comment: Name Collection Type:: Clean-Voided MidstreamPerformed By: #### BNP, HS TROP, CUBLD, CMP, PT, LACTIC, CBC #### [facility] [address] [place] [address] USALeukocytes [#/volume] corrected for nucleated erythrocytes in Blood by Automated counOrdered By: Madyson Galvez on 79-02-3240XRL corrected for nucl RBC Auto (Bld) [#/Vol]7.7 10*3/uL4.1-10.5FCincinnati Children's Hospital Medical CenterLeukocytes [#/volume] in Blood by Automated countOrdered By: Madyson Galvez on 02-14-3542NCU (Bld) [#/Vol]7.7 10*3/uLNormal4.1-10.5FCincinnati Children's Hospital Medical CenterComment on above:Performed By: #### BNP, HS TROP, CUBLD, CMP, PT, LACTIC, CBC #### [facility] [address] [place] [address] USALymphocytes [#/volume] in Blood by Automated countOrdered By: Madyson Galvez on 02-62-8622Joahcnhiyis (Bld) [#/Vol]0.7 10*3/uLLow1.00-4.8 [facility]'S HospitalComment on above:Performed By: #### BNP, HS TROP, CUBLD, CMP, PT, LACTIC, CBC #### [facility] [address] [place] [id number] USALymphocytes/100 leukocytes in Blood by Automated count Ordered By: Madyson Galvez on 54-98-6774Kkmxlhveflg/100 WBC (Bld)9.3 %Normal. [facility]'S HospitalComment on above:Performed By: #### BNP, HS TROP, CUBLD, CMP, PT, LACTIC, CBC #### [address] [Entitic mass] by Automated countOrdered By: Madyson Galvez on 08-98-9033NIS (RBC) [Entitic mass]31.8 jpHrutui11.5-35.2FCincinnati Children's Hospital Medical CenterComment on above:Performed By: #### BNP, HS TROP, CUBLD, CMP, PT, LACTIC, CBC #### [facility] [address] [place] [id number] [facility] Auto (RBC) [Mass/Vol]Ordered By: Madyson Galvez on 02-88-5148KSEL (RBC) [Mass/Vol]33.3 g/dL32.5-35.6FCincinnati Children's Hospital Medical CenterMCV [Entitic volume] by Automated countOrdered By: Madyson Galvez on 37-34-8035ARZ (RBC) [Entitic vol]95.3 qIIdxdxw46.5-101Day[facility] Children'S HospitalComment on above:Performed By: #### BNP, HS TROP, CUBLD, CMP, PT, LACTIC, CBC #### [facility] [address] [id number] USAMonocyte distribution width [Entitic volume] in Blood by AutomatedOrdered By: Madyson Galvez on 57-16-4999Lzbnitrp distribution width Auto (Bld) [Entitic vol]18.67 %0.00-20.00[facility] Monocytes [#/volume] in Blood by Automated countOrdered By: Madyson Galvez on 95-99-1029Vymgcwaqw (Bld) [#/Vol]0.9 10*3/uLHigh0.0-0.8[facility]'S HospitalComment on above:Performed By: #### BNP, HS TROP, CUBLD, CMP, PT, LACTIC, CBC #### [facility] [address] [place] [address] USAMonocytes/100 leukocytes in Blood by Automated count Ordered By: Madyson Galvez on 33-74-2150Rqeqfbqkf/100 WBC (Bld)12.0 %Normal. [facility]'S HospitalComment on above:Performed By: #### BNP, HS TROP, CUBLD, CMP, PT, LACTIC, CBC #### [facility] [address] [id number] USANeutrophils [#/volume] in Blood by Automated countOrdered By: Madyson Galvez on 36-60-9422Ajmtbjjmljs (Bld) [#/Vol]5.9 10*3/uLNormal 1.8-7.7FCincinnati Children's Hospital Medical CenterComment on above:Performed By: #### BNP, HS TROP, CUBLD, CMP, PT, LACTIC, CBC #### [facility] [address] [place] [address] USANeutrophils/100 leukocytes in Blood by Automated count Ordered By: Madyson Galvez on 70-71-7162Bgwrfjixenf/100 WBC (Bld)76.7 %Normal. [facility]'S HospitalComment on above:Performed By: #### BNP, HS TROP, CUBLD, CMP, PT, LACTIC, CBC #### [facility] [address] [place] [address] USANitrite Test strip Ql (U)Ordered By: Madyson Galvez on 72-72-5715Wscxkau Ql (U)NegativeNegativeDayton Children'S HospitalNo Panel InformationOrdered By: Madyson Galvez on 46-25-2871Daqrcowt Creatinine Clearance (Chem39.54Day[facility] Children'S HospitalNucleated erythrocytes [Presence] in Blood by Automated countOrdered By: Madyson Galvez on 07-04-2025 Nucleated RBC Auto Ql (Bld)0.1 /100{WBC}0-0.5FCincinnati Children's Hospital Medical Center Platelet mean volume [Entitic volume] in Blood by Automated countOrdered By: Madyson Galvez on 12-94-1469Tsmajxgc mean volume (Bld) [Entitic vol]8.4 fLNormal 6.6-10.1FCincinnati Children's Hospital Medical CenterComment on above:Performed By: #### BNP, HS TROP, CUBLD, CMP, PT, LACTIC, CBC #### [facility] [address] [place] [address] USAPlatelets [#/volume] in Blood by Automated countOrdered By: Madyson Galvez on 61-84-0750Flmxezxtt (Bld) [#/Vol]181 10*3/rCUoyzpt514-493 [facility]S HospitalComment on above:Performed By: #### BNP, HS TROP, CUBLD, CMP, PT, LACTIC, CBC #### [facility] [address] [id number] USAPotassium [Moles/volume] in Serum or PlasmaOrdered By: Madyson Galvez on 04-54-9467Ugznatyxf [Moles/Vol]4.5 mmol/LNormal3.5-5.1 [facility]S HospitalComment on above:Performed By: #### BNP, HS TROP, CUBLD, CMP, PT, LACTIC, CBC #### [facility] [address] [id number] USAProtein Test strip (U) [Mass/Vol]Ordered By: Madyson Galvez on 65-67-6442Cybuolu (U) [Mass/Vol]NegativeNegativeDayton Children'S HospitalProtein [Mass/volume] in Serum or PlasmaOrdered By: Madyson Galvez on 00-28-4963Ucyqmvd [Mass/Vol]7.5 g/dLNormal6.4-8.9[facility]'S HospitalComment on above:Performed By: #### BNP, HS TROP, CUBLD, CMP, PT, LACTIC, CBC #### [facility] [address] [place] [address] USAProthrombin time (PT)Ordered By: Madyson Galvez on 56-35-8201KV Coag (PPP) [Time]19.1 sHigh9.0-12.9Day[facility] Children'S HospitalComment on above:A hematocrit value greater than 55% may lead to inaccurate results in coagulation testing. Patientshaving hematocrit values >55% require a special collection tube for coagulation studies. Please contact the laboratory at [phone] for redraw instructions.Result Comment: A hematocrit value greater than 55% may lead to inaccurate results in coagulation testing. Patients having hematocrit values >55% require a special collection tube for coagulation studies. Please contact the laboratory at [phone] for redraw instructions.Performed By: #### BNP, HS TROP, CUBLD, CMP, PT, LACTIC, CBC #### [facility] [address] [place] [address] USASerum globulin measurement by calculation (mass/volume) Ordered By: Madyson Galvez on 73-25-1246Pnqcipmu (S) [Mass/Vol]3.7 g/dLNormal [facility]S HospitalComment on above:Performed By: #### BNP, HS TROP, CUBLD, CMP, PT, LACTIC, CBC #### [facility] [address] [place] [address] USASerum or plasma albumin/globulin mass ratioOrdered By: Madyson Galvez on 02-98-3544Jiisczw/Globulin [Mass ratio]1.0 {ratio}Normal [facility]'S HospitalComment on above:Performed By: #### BNP, HS TROP, CUBLD, CMP, PT, LACTIC, CBC #### [place] [address] USASerum or plasma anion gap determinationOrdered By: Madyson Galvez on 45-56-2040Zmfid gap [Moles/Vol]9.9 mmol/LNormal6.0-15.0[facility]'S HospitalComment on above:Performed By: #### BNP, HS TROP, CUBLD, CMP, PT, LACTIC, CBC #### [place] [address] USASodium [Moles/volume] in Serum or PlasmaOrdered By: Madyson Galvez on 63-21-9055Flaqeg [Moles/Vol]134 mmol/RTgg004-894EoyiucritDayton Children'S HospitalComment on above:Performed By: #### BNP, HS TROP, CUBLD, CMP, PT, LACTIC, CBC #### [place] [address] USASpecific gravity Test strip (U) [Rel density]Ordered By: Madyson Galvez on 97-92-1102Veftegdr gravity (U) [Rel density]1.0191.001-1.030 [facility]'S HospitalTroponin I High Sensitivityon 07-04-2025 Troponin I High Ekbuuhehkif3Oppkbd1-95Ilb [facility] Physician GroupComment on above:Result Comment: The Troponin units of report have been changed to meet the Chest Pain Accreditation requirement, element EC5.M1l2. Troponin units are changed from pg/ml to ng/L. Also, the decimal is removed and results are in whole numbers. PERFORMED BY: [place] [address] PATHOLOGIST JOB COST ESTIMATOR REYMUNDO POOLE M.D.Performed By: #### HS TROP #### [place] [address] USATroponin I High Tvxmksvcqtp36Diippa4-66Mno [facility] Physician GroupComment on above:Result Comment: The Troponin units of report have been changed to meet the Chest Pain Accreditation requirement, element EC5.M1l2. Troponin units are changed from pg/ml to ng/L. Also, the decimal is removed and results are in whole numbers. PERFORMED BY: [place] [address] PATHOLOGIST JOB COST ESTIMATOR REYMUNDO POOLE M.D.Performed By: #### BNP, HS TROP, CUBLD, CMP, PT, LACTIC, CBC #### [facility] [address] [place] [address] USATroponin I.cardiac [Mass/volume] in Serum or Plasma by Detection limit <= 0.01 ng/mLOrdered By: Madyson Galvez on 36-76-1123Nymqufui I.cardiac DL <= 0.01 ng/mL [Mass/Vol]9 ng/L0-[facility] Comment on above:The Troponin units of report have been changed to meet the Chest Pain Accreditation requirement, element EC5.M1l2. Troponin units are changed from pg/ml to ng/L. Also, the decimal is removed and results are in whole numbers.Urea nitrogen [Mass/volume] in Serum or PlasmaOrdered By: Madyson Galvez on 11-78-3401Jzxx nitrogen [Mass/Vol]32 mg/dLStevens Clinic Hospital7-[facility]'S HospitalComment on above:Performed By: #### BNP, HS TROP, CUBLD, CMP, PT, LACTIC, CBC #### [facility] [address] [place] [address] USAUrinalysison 74-50-8498Ccitavzvq,UrineNegativeNormal NegativeThe [facility] Physician GroupComment on above:Order Comment: Name Collection Type:: Clean-Voided MidstreamPerformed By: #### BNP, HS TROP, CUBLD, CMP, PT, LACTIC, CBC #### [facility] [address] [place] [address] USAGlucose Ql (U)>=NormalNormalThe [facility] Comment on above:Order Comment: Name Collection Type:: Clean-Voided Midstream Performed By: #### BNP, HS TROP, CUBLD, CMP, PT, LACTIC, CBC #### [facility] [address] [place] [address] USANitrite,UrineNegativeNormalNegativeThe [facility] Physician GroupComment on above:Order Comment: Name Collection Type:: Clean-Voided MidstreamPerformed By: #### BNP, HS TROP, CUBLD, CMP, PT, LACTIC, CBC #### [place] [address] USAOccult Blood,UrineNegativeNormalNegativeThe [facility] Physician GroupComment on above:Order Comment: Name Collection Type:: Clean- Voided MidstreamResult Comment: PERFORMED BY: [place] [address] PATHOLOGIST JOB COST ESTIMATOR REYMUNDO POOLE M.D.Performed By: #### BNP, HS TROP, CUBLD, CMP, PT, LACTIC, CBC #### [place] [address] USAProtein,UrineNegativeNormalNegativeAdventhealth Winter Park Physician GroupComment on above:Order Comment: Name Collection Type:: Clean-Voided MidstreamPerformed By: #### BNP, HS TROP, CUBLD, CMP, PT, LACTIC, CBC #### [place] [address] USASpecificy [place],Urine1.956Qakhiz4.001-1.030The [facility] Physician GroupComment on above:Order Comment: Name Collection Type:: Clean- Voided MidstreamPerformed By: #### BNP, HS TROP, CUBLD, CMP, PT, LACTIC, CBC #### [place] [address] USAUrobilinogen,UrineNormalNormalNormalThe [facility] Physician GroupComment on above:Order Comment: Name Collection Type:: Clean- Voided MidstreamPerformed By: #### BNP, HS TROP, CUBLD, CMP, PT, LACTIC, CBC #### [place] [address] USAUrine Cultureon 03-66-9120Kkxyvkmx identified Cx Nom (U) <9,000 colonies/ml mixed bacterial skin contaminants 2 Days PERFORMED BY: [place] [address] PATHOLOGIST JOB COST ESTIMATOR REYMUNDO POOLE M.D.NormalThe [facility] Physician GroupComment on above: Performed By: #### BNP, HS TROP, CUBLD, CMP, PT, LACTIC, CBC #### [address] [address] USAUrobilinogen Test strip (U) [Mass/Vol]Ordered By: Madyson Galvez on 56-20-9835Hqsecfiefhto (U) [Mass/Vol]Normal mg/dLNormalDayton Children'S HospitalX-ray reportOrdered By: Nicola Woods on 83-11-6888Hrltc reportMOUNT ST. [facility]ARY [facility] Main [address] [address] XRay Report Signed Patient: Navin Christine SR MR#: [id number] : 1940 Acct:[id number] Age/Sex: 85 / M ADM Date: 5 Loc: ER Room: Type: [facility] ER Attending Dr: Copies to: Madyson [...] Woods M.D. 07/04/2025 11:45 AM Dictation Location: [facility]--23 Transcribed By: [facility] 07/04/25 1145 Dictated By: Nicola Woods II, MD 07/04/25 1144 Signed By: 07/04/25 1145 [facility] Work Phone: xr chest 2V*on 81-22-8299BE chest 2V*[facility] Main [employer] [address] [place] [address] XRay Report Signed Patient: Navin Christine SR MR#: [id number] : 1940 Acct:[id number] Age/Sex: 85 / M ADM Date: 07/04/25 Loc: ER Room: Type: [facility] ER Attending Dr: Copies to: Madyson [...] Woods M.D. 07/04/2025 11:45 AM Dictation Location: [place] [address] Transcribed By: [facility] 07/04/25 1145 Dictated By: Nicola Woods II, MD 07/04/25 1144 Signed By: 07/04/25 1145[facility] Physician GrouppH of Urine by Test stripOrdered By: Madyson Galvez on 09-90-9106yI (U)5.0 [pH]Normal5.0-9.0[facility]'S HospitalComment on above:Order Comment: Name Collection Type:: Clean- Voided MidstreamPerformed By: #### BNP, HS TROP, CUBLD, CMP, PT, LACTIC, CBC #### [facility] [address] [place] [address] USALab Reportson 31-00-0716Shz Reports [id number]:127NormalFabien [address] Psychiatric CenterTOOL CULTUREon 02-02-8868Bpybmcdjrkkyl CultureFinal reportNoThe Surgical Hospital at SouthwoodsComment on above:Performed By: #### CXSTOOL #### [facility] [address] [place] [address] Dr. Itzel Epstein coli Shiga Toxin EIANegativeNormalNegativeNewark Hospital Comment on above:Performed By: #### CXSTOOL #### [facility] [address] [place] [address] Dr. Itzel Cano 1CommentSelect Medical OhioHealth Rehabilitation Hospital - DublinComment on above:Result Comment: No Salmonella or Shigella recovered.Performed By: #### CXSTOOL #### [facility] [address] [place] [address] Dr. Itzel Cano Comment: No Campylobacter species isolated. Salmonella/Shigella ScreenFinal [facility] OhioComment on above:Performed By: #### CXSTOOL #### [facility] [address] [place] [address] Dr. Itzel Goodwin 07-26-3933Uchjiyuxczg peptide B (Bld) [Mass/Vol]1615.0 pg/mLNormal<=1,800.0The [facility] Children'S HospitalComment on above:Performed By: #### OBIA #### [facility] [address] [place] [address] Dr. Itzel Cabrera AUTO DIFFon 94-97-3256MTTI #0.0 103/ulNormal0.0-0.1[facility] HospitalComment on above:Performed By: #### CXSTOOL #### [facility] [address] [place] [address] Dr. Itzel Renesophils/100 WBC (Bld)0.5 %Normal0.2-2.0[facility] Comment on above:Performed By: #### CXSTOOL #### [facility] [address] [place] [address] Dr. Itzel Terrazas #0.1 103/ulNormal0.0-0.7The [facility]'S HospitalComselect specialty hospital on above: Performed By: #### CXSTOOL #### [facility] [address] [place] [address] Dr. Itzel Epsteinosinophils/100 WBC (Bld)1.4 %Normal0.9-7.0The [facility] Comment on above:Performed By: #### CXSTOOL #### [facility] [address] [place] [address] Dr. Itzel Epsteinrythrocyte distribution width (RBC) [Ratio]16.1 %Critically high 11.0-15.0The [facility] Children'S HospitalComment on above:Performed By: #### CXSTOOL #### [facility] [address] [place] [address] Dr. Itzel LermaHematocrit (Bld) [Volume fraction]44.1 %Jwiqcc37.0-54.0The [facility]'S HospitalComment on above:Performed By: #### CXSTOOL #### [facility] [address] [place] [address] Dr. Itzel LermaHemoglobin (Bld) [Mass/Vol]13.9 g/dLCritically low14.0-18.0The [facility]'S HospitalComment on above:Performed By: #### CXSTOOL #### [facility] [address] [place] [address] Dr. Itzel Ortega #0.03 10e3/ulNormal0.00-0.03The [facility]'S HospitalComment on above:Performed By: #### CXSTOOL #### [facility] [address] [place] [address] Dr. Itzel Ortega %0.5 %Normal0.0-0.5The [facility] Children'S HospitalComment on above: Performed By: #### CXSTOOL #### [facility] [address] [place] [address] Dr. Itzel MartinezMPH #0.9 103/ulCritically low1.2-3.8The [facility] Comment on above:Performed By: #### CXSTOOL #### [facility] [address] [place] [address] Dr. Itzel Martinezmphocytes/100 WBC (Bld)14.4 %Critically low20.5-60.0The [facility]'S HospitalComment on above:Performed By: #### CXSTOOL #### [facility] [address] [place] [address] Dr. Itzel Valdez DIFF REQNONormalThe [facility] Children'S HospitalComment on above: Performed By: #### CXSTOOL #### [facility] [address] [place] [address] Dr. Itzel Maria (RBC) [Entitic mass]27.5 xlVtdlgn94.9-34.0The [facility] HospitalComment on above:Performed By: #### CXSTOOL #### [facility] [address] [place] [address] Dr. Itzel Maria (RBC) [Mass/Vol]31.5 g/fPJozyrk53.9-35.2The [facility]'S HospitalComment on above:Performed By: #### CXSTOOL #### [facility] [address] [place] [address] Dr. Itzel Maria (RBC) [Entitic vol]87.3 gFSxkpzj12.0-94.0The [facility]'S HospitalComment on above:Performed By: #### CXSTOOL #### [facility] [address] [place] [address] Dr. Itzel Kirkland #0.7 103/ulNormal0.3-0.8The [facility]'S HospitalComment on above:Performed By: #### CXSTOOL #### [facility] [address] [place] [address] Dr. Itzel Mendozaocytes/100 WBC (Bld)10.6 %Normal1.7-12.0The [facility] Comment on above:Performed By: #### CXSTOOL #### [facility] [address] [place] [address] Dr. Itzel Watkins #4.6 103/ulNormal1.4-6.5The [facility]'S HospitalComment on above:Performed By: #### CXSTOOL #### [facility] [address] [place] [address] Dr. Itzel Hidalgoutrophils/100 WBC (Bld)72.6 %Ntjttl86.0-75.0The [facility]'S HospitalComment on above:Performed By: #### CXSTOOL #### [facility] [address] [place] [address] Dr. Itzel Rosalet mean volume (Bld) [Entitic vol]10.3 fLNormal9.5-13.5The [facility]'S HospitalComment on above:Performed By: #### CXSTOOL #### [facility] [address] [place] [address] Dr. Itzel LermaPLT279 103/ubXnmesi452-999Kbr [facility]S HospitalComment on above: Performed By: #### CXSTOOL #### [facility] [address] [place] [address] Dr. Itzel LermaRBC5.05 106/ulNormal4.70-6.10The [facility]'S HospitalComment on above:Performed By: #### CXSTOOL #### [facility] [address] [place] [address] Dr. Itzel LermaWBC6.3 103/ulNormal4.0-11.0The [facility]'S HospitalComment on above: Performed By: #### CXSTOOL #### [facility] [address] [place] [address] Dr. Itzel Torres CHEM 8 (BAS METB)on 30-79-0440Xaqlp gap [Moles/Vol]15.8 mmol/LNormalThe [facility]'S HospitalComment on above:Performed By: #### OBIA #### [facility] [address] [place] [address] Dr. Itzel LermaCalcium [Mass/Vol]9.1 mg/dLNormal8.5-10.1[facility] Comment on above:Performed By: #### OBIA #### [facility] [address] [place] [address] Dr. Itzel LermaChloride [Moles/Vol]102 mmol/JTquhve83-687Tzk [facility] Comment on above:Performed By: #### OBIA #### [facility] [address] [place] [address] Dr. Yilan ChangCO2 [Moles/Vol]19.7 mmol/LCritically low21.0-32.0The [facility]'S HospitalComment on above:Performed By: #### OBIA #### [facility] [address] [address] [address] Itzel LermaCreatinine [Mass/Vol]1.76 mg/dLCritically high0.70-1.30The [facility]'S HospitalComment on above:Performed By: #### OBIA #### [facility] [address] [address] [address] Robbins ChangEGFR-AF ZSKOZDJD55 mL/min/1.56f4Kaimzzuxna low>=60The [facility]'S HospitalComment on above:Performed By: #### OBIA #### [facility] [address] [place] [address] Dr. Robbins ChangEGFR-NON AF FNEPUHNR54 mL/min/1.67k4Cwzaakmxdu low>=60The [facility]'S HospitalComment on above:Performed By: #### OBIA #### [facility] [address] [place] [address] Dr. Itzel LermaGlucose [Mass/Vol]139 mg/dLCritically uhhb31-058Ygq [facility] HospitalComment on above:Performed By: #### OBIA #### [facility] [address] [place] [address] Dr. Itzel LermaPotassium [Moles/Vol]4.5 mmol/LNormal3.5-5.1The [facility] Comment on above:Performed By: #### OBIA #### [facility] [address] [place] [address] Dr. Itzel LermaSodium [Moles/Vol]133 mmol/LCritically sbp378-858Npw [facility]S HospitalComment on above:Performed By: #### OBIA #### [facility] [address] [place] [address] Dr. Itzel LermaUrea nitrogen [Mass/Vol]53.0 mg/dLCritically high7.0-18.0The [facility]'S HospitalComment on above:Performed By: #### OBIA #### [facility] [address] [place] [address] Dr. Itzel LermaUrea nitrogen/Creatinine [Mass ratio]30.1 mg/mgNoThe Surgical Hospital at SouthwoodsComment on above:Performed By: #### OBIA #### [facility] [address] [place] [address] Dr. Itzel LermaPROTIMEon 71-58-4331XNY Coag (PPP) [Relative time]3.98 {INR} NormalThe [facility]'S HospitalComselect specialty hospital on above:Performed By: #### UA #### [facility] [address] [place] [address] Dr. Itzel Li GUIDELINESSEE BELOWSelect Medical OhioHealth Rehabilitation Hospital - DublinComment on above:Result Comment: DESIRED INR: 2.0 - 3.0 CONDITIONS NOT LISTED BELOW 2.5 - 3.5 FOR PROSTHETIC HEART VALVE REPLACEMENT 2.5 - 3.5 RECURRENT THROMBOSIS Performed By: #### UA #### [facility] [address] [place] [address] Dr. Itzel LermaPT Coag (PPP) [Time]39.0 sCritically high9.0-11.6The [facility] on above:Performed By: #### UA #### [facility] [address] [place] [address] Dr. Itzel Irving 42-19-3787rRIO Coag (Bld) [Time]44.8 sCritically high 22.3-36.2[facility] on above:Performed By: #### UA #### [facility] [address] [place] [address] Dr. Itzel LermaXR KUB 1 VIEWon 37-30-3508UU KUB 1 VIEWEXAM: XR KUB 1 VIEW [...] Electronically authenticated by: WILSON JOHN Date: 2022-11-24 07:43[facility] AUTO DIFFon 89-37-0666XAEQ #0.0 103/ulNormal0.0-0.1The [facility]'S HospitalComment on above:Performed By: #### OSMO #### [facility] [address] [address] [address] Itzel LermaBasophils/100 WBC (Bld)0.3 %Normal0.2-2.0The [facility] Comment on above:Performed By: #### OSMO #### [facility] [address] [place] [address] Dr. Itzel Terrazas #0.1 103/ulNormal0.0-0.7The [facility]'S HospitalComment on above: Performed By: #### OSMO #### [facility] [address] [place] [address] Dr. Itzel Epsteinosinophils/100 WBC (Bld)1.6 %Normal0.9-7.0The [facility] Comment on above:Performed By: #### OSMO #### [facility] [address] [place] [address] Dr. Itzel Epsteinrythrocyte distribution width (RBC) [Ratio]15.9 %Critically high 11.0-15.0The [facility] Children'S HospitalComment on above:Performed By: #### OSMO #### [facility] [address] [place] [address] Dr. Itzel LermaHematocrit (Bld) [Volume fraction]42.4 %Kcherj14.0-54.0The [facility] Children'S HospitalComment on above:Performed By: #### OSMO #### [facility] [address] [place] [address] Dr. Itzel LermaHemoglobin (Bld) [Mass/Vol]13.1 g/dLCritically low14.0-18.0The [facility]S HospitalComment on above:Performed By: #### OSMO #### [facility] [address] [address] [address] Itzel Ortega #0.04 10e3/ulCritically high0.00-0.03The [facility] Comment on above:Performed By: #### OSMO #### [facility] [address] [address] [address] Itzel Ortega %0.7 %Critically high0.0-0.5The [facility]S HospitalComment on above:Performed By: #### OSMO #### [facility] [address] [address] [address] Itzel Hahn #0.9 103/ulCritically low1.2-3.8The [facility] Comment on above:Performed By: #### OSMO #### [facility] [address] [place] [address] Dr. Itzel Weirhocytes/100 WBC (Bld)15.6 %Critically low20.5-60.0The [facility]S HospitalComment on above:Performed By: #### OSMO #### [facility] [address] [place] [address] Dr. Itzel CondonUAL DIFF REQNONormalThe [facility]'S HospitalComment on above: Performed By: #### OSMO #### [facility] [address] [place] [address] Dr. Itzel Maria (RBC) [Entitic mass]27.5 flWtkcmt56.9-34.0The [facility]S HospitalComment on above:Performed By: #### OSMO #### [facility] [address] [place] [address] Dr. Itzel Maria (RBC) [Mass/Vol]30.9 g/hMJaphzp70.9-35.2[facility] HospitalComment on above:Performed By: #### OSMO #### [facility] [address] [place] [address] Dr. Itzel Maria (RBC) [Entitic vol]88.9 oZIzbpoh76.0-94.0The [facility]S HospitalComment on above:Performed By: #### OSMO #### [facility] [address] [place] [address] Dr. Itzel Kirkland #0.7 103/ulNormal0.3-0.8The [facility] HospitalComment on above:Performed By: #### OSMO #### [facility] [address] [place] [address] Dr. Itzel Mendozaocytes/100 WBC (Bld)12.1 %Critically high1.7-12.0The [facility] HospitalComment on above:Performed By: #### OSMO #### [facility] [address] [place] [address] Dr. Itzel Watkins #4.0 103/ulNormal1.4-6.5The [facility]S HospitalComment on above:Performed By: #### OSMO #### [facility] [address] [place] [address] Dr. Itzel Hidalgoutrophils/100 WBC (Bld)69.7 %Fxesiq48.0-75.0The [facility] HospitalComment on above:Performed By: #### OSMO #### [facility] [address] [place] [address] Dr. Itzel Nguyen mean volume (Bld) [Entitic vol]10.6 fLNormal9.5-13.5The [facility]S HospitalComment on above:Performed By: #### OSMO #### [facility] [address] [place] [address] Dr. Itzel LermaPLT200 103/ufDehvhl373-193Ooa [facility]S HospitalComment on above: Performed By: #### OSMO #### [facility] [address] [place] [address] Dr. Itzel LermaRBC4.77 106/ulNormal4.70-6.10The [facility]S HospitalComment on above:Performed By: #### OSMO #### [facility] [address] [place] [address] Dr. Itzel LermaWBC5.8 103/ulNormal4.0-11.0The [facility]S HospitalComment on above: Performed By: #### OSMO #### [facility] [address] [address] [address] Itzel Torres CHEM 8 (BAS METB)on [id number] gap [Moles/Vol]14.3 mmol/LNormalThe [facility]'S HospitalComment on above:Performed By: #### OSMO #### [facility] [address] [address] [address] Itzel LermaCalcium [Mass/Vol]9.1 mg/dLNormal8.5-10.1The [facility] Comment on above:Performed By: #### OSMO #### [facility] [address] [place] [address] Dr. Itzel LermaChloride [Moles/Vol]102 mmol/WFndjfg52-889Ffb [facility] Comment on above:Performed By: #### OSMO #### [facility] [address] [place] [address] Dr. Itzel LermaCO2 [Moles/Vol]21.4 mmol/RAkwuxt98.0-32.0The [facility] Comment on above:Performed By: #### OSMO #### [facility] [address] [place] [address] Dr. Itzel LermaCreatinine [Mass/Vol]1.58 mg/dLCritically high0.70-1.30The [facility]S HospitalComment on above:Performed By: #### OSMO #### [facility] [address] [place] [address] Dr. Itzel EpsteinGFR-AF WWQWABZQ40 mL/min/1.32l5Uuadrosthg low>=60The [facility]'S HospitalComment on above:Performed By: #### OSMO #### [facility] [address] [place] [address] Dr. Itzel EpsteinGFR-NON AF YZNNUSIK08 mL/min/1.64w7Ryazhoezer low>=60The [facility]'S HospitalComment on above:Performed By: #### OSMO #### [facility] [address] [place] [address] Dr. Itzel LermaGlucose [Mass/Vol]125 mg/dLCritically ebmu46-060Hld [facility] HospitalComment on above:Performed By: #### OSMO #### [facility] [address] [address] [address] Itzel LermaPotassium [Moles/Vol]4.7 mmol/LNormal3.5-5.1The [facility] Comment on above:Performed By: #### OSMO #### [facility] [address] [address] [address] Itzel LermaSodium [Moles/Vol]133 mmol/LCritically iqc622-342Kio [facility]S HospitalComment on above:Performed By: #### OSMO #### [facility] [address] [place] [address] Dr. Itzel LermaUrea nitrogen [Mass/Vol]45.0 mg/dLCritically high7.0-18.0The [facility]S HospitalComment on above:Performed By: #### OSMO #### [facility] [address] [address] [address] Itzel Carbajal nitrogen/Creatinine [Mass ratio]28.5 mg/mgNoThe Surgical Hospital at SouthwoodsComment on above:Performed By: #### OSMO #### [facility] [address] [place] [address] Dr. Itzel ParhamIMEcely 90-80-1764DSP Coag (PPP) [Relative time]4.89 {INR} Critically highThe [facility] Children'S HospitalComment on above:Performed By: #### PT #### [facility] [address] [place] [address] Dr. Itzel Li GUIDELINESSEE BELOWSelect Medical OhioHealth Rehabilitation Hospital - DublinComment on above:Result Comment: DESIRED INR: 2.0 - 3.0 CONDITIONS NOT LISTED BELOW 2.5 - 3.5 FOR PROSTHETIC HEART VALVE REPLACEMENT 2.5 - 3.5 RECURRENT THROMBOSIS Performed By: #### PT #### [facility] [address] [place] [address] Dr. Itzel LermaPT Coag (PPP) [Time]47.4 sCritically high9.0-11.6The [facility]'S HospitalComment on above:Performed By: #### PT #### [facility] [address] [place] [address] Dr. Itzel Cabrera AUTO DIFFon [id number] #0.0 103/ulNormal0.0-0.1The [facility]'S HospitalComment on above:Performed By: #### CBC #### [facility] [address] [place] [address] Dr. Itzel LermaBasophils/100 WBC (Bld)0.4 %Normal0.2-2.0The [facility] Comment on above:Performed By: #### CBC #### [facility] [address] [place] [address] Dr. Robbins ChangEKelle #0.1 103/ulNormal0.0-0.7The [facility]'S HospitalComment on above: Performed By: #### CBC #### [facility] [address] [place] [address] Dr. Itzel Epsteinosinophils/100 WBC (Bld)1.4 %Normal0.9-7.0The [facility] Comment on above:Performed By: #### CBC #### [facility] [address] [place] [address] Dr. Itzel Epsteinrythrocyte distribution width (RBC) [Ratio]16.3 %Critically high 11.0-15.0[facility] HospitalComment on above:Performed By: #### CBC #### [facility] [address] [place] [address] Dr. Itzel LermaHematocrit (Bld) [Volume fraction]41.1 %Critically low42.0-54.0 The [facility]'S HospitalComment on above:Performed By: #### CBC #### [facility] [address] [place] [address] Dr. Itzel LermaHemoglobin (Bld) [Mass/Vol]12.5 g/dLCritically low14.0-18.0The [facility]S HospitalComment on above:Performed By: #### CBC #### [facility] [address] [address] [address] Itzel Ortega #0.03 10e3/ulNormal0.00-0.03The [facility]'S HospitalComment on above:Performed By: #### CBC #### [facility] [address] [place] [address] Dr. Itzel Ortega %0.4 %Normal0.0-0.5The [facility]'S HospitalComment on above: Performed By: #### CBC #### [facility] [address] [place] [address] Dr. Itzel Hahn #1.0 103/ulCritically low1.2-3.8The [facility] Comment on above:Performed By: #### CBC #### [facility] [address] [place] [address] Dr. Itzel Weirhocytes/100 WBC (Bld)14.3 %Critically low20.5-60.0The [facility]'S HospitalComment on above:Performed By: #### CBC #### [facility] [address] [place] [address] Dr. Itzel CondonUAL DIFF REQNONormalThe [facility]'S HospitalComment on above: Performed By: #### CBC #### [facility] [address] [place] [address] Dr. Itzel Centeno (RBC) [Entitic mass]27.4 tsWtpcoq94.9-34.0The [facility]'S HospitalComment on above:Performed By: #### CBC #### [facility] [address] [place] [address] Dr. Itzel Maria (RBC) [Mass/Vol]30.4 g/zFNtwawv86.9-35.2The [facility]S HospitalComment on above:Performed By: #### CBC #### [facility] [address] [place] [address] Dr. Itzel Maria (RBC) [Entitic vol]89.9 mXBkueof33.0-94.0The [facility]S HospitalComment on above:Performed By: #### CBC #### [facility] [address] [address] [address] Itzel Kirkland #0.8 103/ulNormal0.3-0.8The [facility]S HospitalComment on above:Performed By: #### CBC #### [facility] [address] [address] [address] Itzel Mendozaocytes/100 WBC (Bld)11.1 %Normal1.7-12.0The [facility] Comment on above:Performed By: #### CBC #### [facility] [address] [place] [address] Dr. Itzel Watkins #5.2 103/ulNormal1.4-6.5The [facility]S HospitalComment on above:Performed By: #### CBC #### [facility] [address] [place] [address] Dr. Itzel Hidalgoutrophils/100 WBC (Bld)72.4 %Rfftxk40.0-75.0The [facility]S HospitalComment on above:Performed By: #### CBC #### [facility] [address] [place] [address] Dr. Itzel Nguyen mean volume (Bld) [Entitic vol]10.1 fLNormal9.5-13.5The [facility]S HospitalComment on above:Performed By: #### CBC #### [facility] [address] [place] [address] Dr. Itzel LermaPLT210 103/pqUoyzpv896-046Bda [facility] HospitalComment on above: Performed By: #### CBC #### [facility] [address] [place] [address] Dr. Itzel LermaRBC4.57 106/ulCritically low4.70-6.10The [facility] HospitalComment on above:Performed By: #### CBC #### [facility] [address] [place] [address] Dr. Itzel LermaWBC7.2 103/ulNormal4.0-11.0The [facility]S HospitalComment on above: Performed By: #### CBC #### [facility] [address] [address] [address] Itzel LermaPROF CHEM 8 (BAS METB)on 40-44-0519Irgde gap [Moles/Vol]13.8 mmol/LNormalThe [facility]S HospitalComment on above:Performed By: #### OSMO #### [facility] [address] [address] [address] Itzel LermaCalcium [Mass/Vol]8.7 mg/dLNormal8.5-10.1The [facility] Comment on above:Performed By: #### OSMO #### [facility] [address] [address] [address] Itzel LermaChloride [Moles/Vol]102 mmol/IBxcvqs18-882Rfi [facility] Comment on above:Performed By: #### OSMO #### [facility] [address] [place] [address] Dr. Itzel LermaCO2 [Moles/Vol]20.6 mmol/LCritically low21.0-32.0The [facility]S HospitalComment on above:Performed By: #### OSMO #### [facility] [address] [address] [address] Itzel LermaCreatinine [Mass/Vol]1.49 mg/dLCritically high0.70-1.30The [facility] HospitalComment on above:Performed By: #### OSMO #### [facility] [address] [address] [address] Itzel EpsteinGFR-AF GMQLCZLV48 mL/min/1.00g0Gxaoevhuks low>=60The [facility]S HospitalComment on above:Performed By: #### OSMO #### [facility] [address] [address] [address] Itzel EpsteinGFR-NON AF SQADIDBN00 mL/min/1.95r0Gkxbpschdt low>=60The [facility] HospitalComment on above:Performed By: #### OSMO #### [facility] [address] [address] [address] Itzel LermaGlucose [Mass/Vol]105 mg/hSGguzvl40-183Cwu [facility] Comment on above:Performed By: #### OSMO #### [facility] [address] [place] [address] Dr. Itzel LermaPotassium [Moles/Vol]4.4 mmol/LNormal3.5-5.1The [facility] Comment on above:Performed By: #### OSMO #### [facility] [address] [place] [address] Dr. Itzel LermaSodium [Moles/Vol]132 mmol/LCritically dvc161-835Iym [facility] HospitalComment on above:Performed By: #### OSMO #### [facility] [address] [place] [address] Dr. Itzel LermaUrea nitrogen [Mass/Vol]47.0 mg/dLCritically high7.0-18.0[facility] HospitalComment on above:Performed By: #### OSMO #### [facility] [address] [place] [address] Dr. Itzel Carbajal nitrogen/Creatinine [Mass ratio]31.5 mg/mgNoThe Surgical Hospital at SouthwoodsComment on above:Performed By: #### OSMO #### [facility] [address] [place] [address] Dr. Itzel Velez [id number] Coag (PPP) [Relative time]5.94 {INR} Critically highNewark HospitalComment on above:Performed By: #### CBC #### [facility] [address] [place] [address] Dr. Itzel Li GUIDELINESSEE BELOWSelect Medical OhioHealth Rehabilitation Hospital - DublinComment on above:Result Comment: DESIRED INR: 2.0 - 3.0 CONDITIONS NOT LISTED BELOW 2.5 - 3.5 FOR PROSTHETIC HEART VALVE REPLACEMENT 2.5 - 3.5 RECURRENT THROMBOSIS Performed By: #### CBC #### [facility] [address] [place] [address] Dr. Itzel LermaPT Coag (PPP) [Time]56.9 sCritically high9.0-11.6The [facility]'S HospitalComment on above:Performed By: #### CBC #### [facility] [address] [address] [address] Itzel LermaXR KUB 1 VIEWon [id number] KUB 1 VIEWEXAMINATION: XR KUB 1 VIEW [...] Electronically authenticated by: DORIAN YODER Date: 2022-11-22 08:06[facility] AUTO DIFFon [id number] #0.0 103/ulNormal0.0-0.1The [facility]S HospitalComment on above:Performed By: #### OBIA #### [facility] [address] [address] [address] Itzel LermaBasophils/100 WBC (Bld)0.1 %Critically low0.2-2.0The [facility] HospitalComment on above:Performed By: #### OBIA #### [facility] [address] [place] [address] Dr. Itzel Terrazas #0.1 103/ulNormal0.0-0.7The [facility]S HospitalComment on above: Performed By: #### OBIA #### [facility] [address] [place] [address] Dr. Itzel Epsteinosinophils/100 WBC (Bld)1.5 %Normal0.9-7.0The [facility] Comment on above:Performed By: #### OBIA #### [facility] [address] [place] [address] Dr. Itzel Epsteinrythrocyte distribution width (RBC) [Ratio]16.3 %Critically high 11.0-15.0The [facility]S HospitalComment on above:Performed By: #### OBIA #### [facility] [address] [place] [address] Dr. Itzel LermaHematocrit (Bld) [Volume fraction]42.6 %Qjaoie13.0-54.0The [facility]S HospitalComment on above:Performed By: #### OBIA #### [facility] [address] [place] [address] Dr. Itzel LermaHemoglobin (Bld) [Mass/Vol]13.3 g/dLCritically low14.0-18.0The [facility] HospitalComment on above:Performed By: #### OBIA #### [facility] [address] [place] [address] Dr. Itzel Ortega #0.02 10e3/ulNormal0.00-0.03The [facility]S HospitalComment on above:Performed By: #### OBIA #### [facility] [address] [place] [address] Dr. Itzel Ortega %0.2 %Normal0.0-0.5The [facility] HospitalComment on above: Performed By: #### OBIA #### [facility] [address] [place] [address] Dr. Itzel Hahn #1.0 103/ulCritically low1.2-3.8The [facility] Comment on above:Performed By: #### OBIA #### [facility] [address] [place] [address] Dr. Itzel Martinezmphocytes/100 WBC (Bld)12.5 %Critically low20.5-60.0The [facility]S HospitalComment on above:Performed By: #### OBIA #### [facility] [address] [place] [address] Dr. Itzel CondonUAL DIFF REQNONormalThe [facility]S HospitalComment on above: Performed By: #### OBIA #### [facility] [address] [place] [address] Dr. Itzel Centeno (RBC) [Entitic mass]27.8 deRfdnwg19.9-34.0The [facility]S HospitalComment on above:Performed By: #### OBIA #### [facility] [address] [address] [address] Itzel MariaHC (RBC) [Mass/Vol]31.2 g/mHYtgqhe56.9-35.2The [facility]S HospitalComment on above:Performed By: #### OBIA #### [facility] [address] [place] [address] Dr. Itzel MariaV (RBC) [Entitic vol]88.9 tBNzzvzm17.0-94.0The [facility] HospitalComment on above:Performed By: #### OBIA #### [facility] [address] [place] [address] Dr. Itzel Kirkland #0.9 103/ulCritically high0.3-0.8The [facility] Comment on above:Performed By: #### OBIA #### [facility] [address] [place] [address] Dr. Itzel Mendozaocytes/100 WBC (Bld)10.6 %Normal1.7-12.0The [facility] Comment on above:Performed By: #### OBIA #### [facility] [address] [place] [address] Dr. Itzel Watkins #6.1 103/ulNormal1.4-6.5The [facility]S HospitalComment on above:Performed By: #### OBIA #### [facility] [address] [place] [address] Dr. Itzel Hidalgoutrophils/100 WBC (Bld)75.1 %Critically high43.0-75.0The [facility]S HospitalComment on above:Performed By: #### OBIA #### [facility] [address] [place] [address] Dr. Itzel Rosalet mean volume (Bld) [Entitic vol]9.9 fLNormal9.5-13.5The [facility]S HospitalComment on above:Performed By: #### OBIA #### [facility] [address] [place] [address] Dr. Itzel LermaPLT239 103/xrDumgvk451-937Xql [facility] HospitalComment on above: Performed By: #### OBIA #### [facility] [address] [address] [address] Itzel LermaRBC4.79 106/ulNormal4.70-6.10The [facility] HospitalComment on above:Performed By: #### OBIA #### [facility] [address] [place] [address] Dr. Itzel LermaWBC8.1 103/ulNormal4.0-11.0The [facility]S HospitalComment on above: Performed By: #### OBIA #### [facility] [address] [place] [address] Dr. Itzel BadilloF CHEM 8 (BAS METB)on 64-37-3608Yrxdc gap [Moles/Vol]15.4 mmol/LNormalThe [facility]S HospitalComment on above:Performed By: #### UA #### [facility] [address] [place] [address] Dr. Itzel LermaCalcium [Mass/Vol]8.9 mg/dLNormal8.5-10.1The [facility] Comment on above:Performed By: #### UA #### [facility] [address] [place] [address] Dr. Itzel LermaChloride [Moles/Vol]102 mmol/UMarzre60-845Gwj [facility] Comment on above:Performed By: #### UA #### [facility] [address] [place] [address] Dr. Itzel LermaCO2 [Moles/Vol]18.7 mmol/LCritically low21.0-32.0The [facility]S HospitalComment on above:Performed By: #### UA #### [facility] [address] [place] [address] Dr. Itzel LermaCreatinine [Mass/Vol]1.47 mg/dLCritically high0.70-1.30The [facility] HospitalComment on above:Performed By: #### UA #### [facility] [address] [place] [address] Dr. Yilan ChangEGFR-AF UIWNJEIH41 mL/min/1.29l5Vjabkiinnb low>=60The [facility]S HospitalComment on above:Performed By: #### UA #### [facility] [address] [address] [address] Itzel EpsteinGFR-NON AF VGMUWNRS32 mL/min/1.12s1Skbmrwwtyf low>=60The [facility] HospitalComment on above:Performed By: #### UA #### [facility] [address] [address] [address] Itzel LermaGlucose [Mass/Vol]103 mg/eRFsshbz54-280Urv [facility] Comment on above:Performed By: #### UA #### [facility] [address] [place] [address] Dr. Itzel LermaPotassium [Moles/Vol]4.1 mmol/LNormal3.5-5.1[facility] Comment on above:Performed By: #### UA #### [facility] [address] [address] [address] Itzel LermaSodium [Moles/Vol]132 mmol/LCritically gfo755-651UvkNewark HospitalComment on above:Performed By: #### UA #### [facility] [address] [place] [address] Dr. Itzel LermaUrea nitrogen [Mass/Vol]47.0 mg/dLCritically high7.0-18.0[facility] HospitalComment on above:Performed By: #### UA #### [facility] [address] [place] [address] Dr. Itzel Carbajal nitrogen/Creatinine [Mass ratio]32.0 mg/mgNormalThe [facility]S HospitalComment on above:Performed By: #### UA #### [facility] [address] [place] [address] Dr. Itzel LermaXR KUB 1 VIEWon [id number] KUB 1 VIEWEXAMINATION: XR KUB 1 VIEW [...] Electronically authenticated by: DORIAN YODER Date: 2022-11-21 08:08[facility]O DIFFon [id number] #0.0 103/ulNormal0.0-0.1[facility] HospitalComment on above:Performed By: #### OSMO #### [facility] [address] [place] [address] Dr. Itzel LermaBasophils/100 WBC (Bld)0.3 %Normal0.2-2.0[facility] Comment on above:Performed By: #### OSMO #### [facility] [address] [place] [address] Dr. Itzel Terrazas #0.1 103/ulNormal0.0-0.7The [facility]S HospitalComment on above: Performed By: #### OSMO #### [facility] [address] [place] [address] Dr. Itzel Epsteinosinophils/100 WBC (Bld)0.8 %Critically low0.9-7.0[facility] HospitalComment on above:Performed By: #### OSMO #### [facility] [address] [place] [address] Dr. Itzel Epsteinrythrocyte distribution width (RBC) [Ratio]16.2 %Critically high 11.0-15.0[facility] HospitalComment on above:Performed By: #### OSMO #### [facility] [address] [place] [address] Dr. Itzel LermaHematocrit (Bld) [Volume fraction]46.2 %Ztnuck62.0-54.0[facility] HospitalComment on above:Performed By: #### OSMO #### [facility] [address] [place] [address] Dr. Itzel LermaHemoglobin (Bld) [Mass/Vol]14.2 g/vPSngvqk20.0-18.0The [facility] HospitalComment on above:Performed By: #### OSMO #### [facility] [address] [place] [address] Dr. Itzel Ortega #0.04 10e3/ulCritically high0.00-0.03The [facility] Comment on above:Performed By: #### OSMO #### [facility] [address] [place] [address] Dr. Itzel Ortega %0.3 %Normal0.0-0.5The [facility] HospitalComment on above: Performed By: #### OSMO #### [facility] [address] [place] [address] Dr. Itzel Hahn #1.3 103/ulNormal1.2-3.8The [facility] HospitalComment on above:Performed By: #### OSMO #### [facility] [address] [place] [address] Dr. Itzel Weirhocytes/100 WBC (Bld)10.4 %Critically low20.5-60.0The [facility]'S HospitalComment on above:Performed By: #### OSMO #### [facility] [address] [place] [address] Dr. Itzel CondonUAL DIFF REQNONormalThe [facility]'S HospitalComment on above: Performed By: #### OSMO #### [facility] [address] [place] [address] Dr. Itzel Maria (RBC) [Entitic mass]27.6 qmJbbijz63.9-34.0The [facility]S HospitalComment on above:Performed By: #### OSMO #### [facility] [address] [place] [address] Dr. Itzel Maria (RBC) [Mass/Vol]30.7 g/vBQmjswj35.9-35.2The [facility] HospitalComment on above:Performed By: #### OSMO #### [facility] [address] [address] [address] Itzel MariaV (RBC) [Entitic vol]89.9 kQOknrmf52.0-94.0The [facility]S HospitalComment on above:Performed By: #### OSMO #### [facility] [address] [address] [address] Itzel Kirkland #1.1 103/ulCritically high0.3-0.8The [facility] Comment on above:Performed By: #### OSMO #### [facility] [address] [place] [address] Dr. Itzel Mendozaocytes/100 WBC (Bld)9.5 %Normal1.7-12.0[facility] Comment on above:Performed By: #### OSMO #### [facility] [address] [place] [address] Dr. Itzel Watkins #9.5 103/ulCritically high1.4-6.5The [facility] Comment on above:Performed By: #### OSMO #### [facility] [address] [place] [address] Dr. Itzel Hidalgoutrophils/100 WBC (Bld)78.7 %Critically high43.0-75.0The [facility]S HospitalComment on above:Performed By: #### OSMO #### [facility] [address] [place] [address] Dr. Itzel Rosalet mean volume (Bld) [Entitic vol]9.6 fLNormal9.5-13.5The [facility]S HospitalComment on above:Performed By: #### OSMO #### [facility] [address] [place] [address] Dr. Itzel LermaPLT280 103/iwZdrwmx739-761Qrg [facility] HospitalComment on above: Performed By: #### OSMO #### [facility] [address] [place] [address] Dr. Itzel LermaRBC5.14 106/ulNormal4.70-6.10The [facility] HospitalComment on above:Performed By: #### OSMO #### [facility] [address] [place] [address] Dr. Itzel LermaWBC12.0 103/ulCritically high4.0-11.0The [facility] HospitalComment on above:Performed By: #### OSMO #### [facility] [address] [place] [address] Dr. Itzel LermaLACTATE/LACTIC ACIDon 20-53-9443Eacacne [Moles/Vol]0.9 mmol/L Normal0.4-1.9The [facility]S HospitalComment on above:Performed By: #### CBC #### [facility] [address] [place] [address] Dr. Itzel LermaPROF CHEM 8 (BAS METB)on 76-29-7824Dtukm gap [Moles/Vol]14.9 mmol/LNormalThe [facility]S HospitalComment on above:Performed By: #### BMP #### [facility] [address] [place] [address] Dr. Itzel LermaCalcium [Mass/Vol]9.7 mg/dLNormal8.5-10.1The [facility] Comment on above:Performed By: #### BMP #### [facility] [address] [place] [address] Dr. Itzel LermaChloride [Moles/Vol]99 mmol/FVbxkoe52-960Oca [facility] Comment on above:Performed By: #### BMP #### [facility] [address] [place] [address] Dr. Itzel LermaCO2 [Moles/Vol]22.7 mmol/VWnndet96.0-32.0The [facility] Comment on above:Performed By: #### BMP #### [facility] [address] [place] [address] Dr. Itzel LermaCreatinine [Mass/Vol]2.07 mg/dLCritically high0.70-1.30The [facility] HospitalComment on above:Performed By: #### BMP #### [facility] [address] [place] [address] Dr. Itzel EpsteinGFR-AF TVNVTIVK04 mL/min/1.50e4Mveuspynhk low>=60The [facility]S HospitalComment on above:Performed By: #### BMP #### [facility] [address] [address] [address] Itzel EpsteinGFR-NON AF DUSPEAZA11 mL/min/1.10f9Xgchgnwpxk low>=60The [facility]S HospitalComment on above:Performed By: #### BMP #### [facility] [address] [address] [address] Itzel LermaGlucose [Mass/Vol]144 mg/dLCritically pzml38-625Jmf [facility] HospitalComment on above:Performed By: #### BMP #### [facility] [address] [place] [address] Dr. Itzel LermaPotassium [Moles/Vol]4.6 mmol/LNormal3.5-5.1The [facility] Comment on above:Performed By: #### BMP #### [facility] [address] [address] [address] Itzel LermaSodium [Moles/Vol]132 mmol/LCritically vme266-526Zpe [facility] HospitalComment on above:Performed By: #### BMP #### [facility] [address] [place] [address] Dr. Itzel LermaUrea nitrogen [Mass/Vol]52.0 mg/dLCritically high7.0-18.0The [facility]S HospitalComment on above:Performed By: #### BMP #### [facility] [address] [place] [address] Dr. Itzel Carbajal nitrogen/Creatinine [Mass ratio]25.1 mg/mgNormalThe [facility]S HospitalComment on above:Performed By: #### BMP #### [facility] [address] [place] [address] Dr. Itzel LermaPROTIMEon [id number] Coag (PPP) [Relative time]2.54 {INR} NormalThe [facility] Children'S HospitalComment on above:Performed By: #### CBC #### [facility] [address] [place] [address] Dr. Itzel Li GUIDELINESSEE BELOWSelect Medical OhioHealth Rehabilitation Hospital - DublinComment on above:Result Comment: DESIRED INR: 2.0 - 3.0 CONDITIONS NOT LISTED BELOW 2.5 - 3.5 FOR PROSTHETIC HEART VALVE REPLACEMENT 2.5 - 3.5 RECURRENT THROMBOSIS Performed By: #### CBC #### [facility] [address] [place] [address] Dr. Itzel LermaPT Coag (PPP) [Time]25.5 sCritically high9.0-11.6The [facility]'S HospitalComment on above:Performed By: #### CBC #### [facility] [address] [place] [address] Dr. Itzel LermaXR KUB 1 VIEWon [id number] KUB 1 VIEWEXAMINATION: XR KUB 1 VIEW [...] Electronically authenticated by: DORIAN YODER Date: 2022-11-20 10:[address] [place] [address] AUTO DIFFon [id number] #0.0 103/ulNormal0.0-0.1The [facility]'S HospitalComment on above:Performed By: #### OSMO #### [facility] [address] [place] [address] Dr. Itzel LermaBasophils/100 WBC (Bld)0.2 %Normal0.2-2.0[facility] Comment on above:Performed By: #### OSMO #### [facility] [address] [place] [address] Dr. Itzel Terrazas #0.1 103/ulNormal0.0-0.7The [facility]'S HospitalComment on above: Performed By: #### OSMO #### [facility] [address] [place] [address] Dr. Itzel Epsteinosinophils/100 WBC (Bld)1.1 %Normal0.9-7.0[facility] Comment on above:Performed By: #### OSMO #### [facility] [address] [place] [address] Dr. Itzel Epsteinrythrocyte distribution width (RBC) [Ratio]16.3 %Critically high 11.0-15.0The [facility]'S HospitalComment on above:Performed By: #### OSMO #### [facility] [address] [place] [address] Dr. Itzel LermaHematocrit (Bld) [Volume fraction]47.9 %Tiuhna47.0-54.0The [facility]'S HospitalComment on above:Performed By: #### OSMO #### [facility] [address] [place] [address] Dr. Itzel LermaHemoglobin (Bld) [Mass/Vol]14.7 g/vWKxabtq20.0-18.0[facility] HospitalComment on above:Performed By: #### OSMO #### [facility] [address] [place] [address] Dr. Itzel Ortega #0.04 10e3/ulCritically high0.00-0.03The [facility] Comment on above:Performed By: #### OSMO #### [facility] [address] [place] [address] Dr. Itzel Ortega %0.4 %Normal0.0-0.5The [facility]'S HospitalComment on above: Performed By: #### OSMO #### [facility] [address] [place] [address] Dr. Itzel Hahn #0.9 103/ulCritically low1.2-3.8The [facility] Comment on above:Performed By: #### OSMO #### [facility] [address] [place] [address] Dr. Itzel Martinezmphocytes/100 WBC (Bld)9.7 %Critically low20.5-60.0The [facility]S HospitalComment on above:Performed By: #### OSMO #### [facility] [address] [place] [address] Dr. Itzel CondonUAL DIFF REQNONormalThe [facility]S HospitalComment on above: Performed By: #### OSMO #### [facility] [address] [place] [address] Dr. Itzel Maria (RBC) [Entitic mass]27.4 ajOrfmpk33.9-34.0The [facility]S HospitalComment on above:Performed By: #### OSMO #### [facility] [address] [place] [address] Dr. Itzel Maria (RBC) [Mass/Vol]30.7 g/wSZjjkix58.9-35.2The [facility]'S HospitalComment on above:Performed By: #### OSMO #### [facility] [address] [place] [address] Dr. Itzel Maria (RBC) [Entitic vol]89.2 zOAuzfta89.0-94.0The [facility]S HospitalComment on above:Performed By: #### OSMO #### [facility] [address] [place] [address] Dr. Itzel Kirkland #0.7 103/ulNormal0.3-0.8The [facility]S HospitalComment on above:Performed By: #### OSMO #### [facility] [address] [place] [address] Dr. Itzel Mendozaocytes/100 WBC (Bld)7.9 %Normal1.7-12.0[facility] Comment on above:Performed By: #### OSMO #### [facility] [address] [place] [address] Dr. Itzel Watkins #7.6 103/ulCritically high1.4-6.5The [facility] Comment on above:Performed By: #### OSMO #### [facility] [address] [place] [address] Dr. Itzel Hidalgoutrophils/100 WBC (Bld)80.7 %Critically high43.0-75.0The [facility]S HospitalComment on above:Performed By: #### OSMO #### [facility] [address] [place] [address] Dr. Itzel LermaPlatelet mean volume (Bld) [Entitic vol]10.0 fLNormal9.5-13.5The [facility]S HospitalComment on above:Performed By: #### OSMO #### [facility] [address] [place] [address] Dr. Itzel LermaPLT276 103/ewYwfppf855-361Rol [facility] HospitalComment on above: Performed By: #### OSMO #### [facility] [address] [place] [address] Dr. Itzel LermaRBC5.37 106/ulNormal4.70-6.10The [facility] HospitalComment on above:Performed By: #### OSMO #### [facility] [address] [place] [address] Dr. Itzel LermaWBC9.4 103/ulNormal4.0-11.0The [facility]huja Medical Centerment on above: Performed By: #### OSMO #### [facility] [address] [place] [address] Dr. Itzel LermaCT ABD/PELVIS WO CONon [id number] ABD/PELVIS WO CONEXAMINATION: CT ABD/PELVIS WO CON, [...] Electronically authenticated by: SHAR TREJO Date: 2022-11-19 19:32Norm[facility] Vincent Medical CenterCovid-19 PCR (CVDTBH)on [id number]-CoV-2 (COVID-19) RNA JUDY+probe Ql (Unsp spec)Not detectedNormalNOT DETECTEDNew[facility] Comment on above:Result Comment: When diagnostic [...] for this test is supported by the [employer] of [employer] and Human Service's declaration that [...] longer be used).Performed By: #### UA #### [facility] [address] [place] [address] Dr. Itzel LermaPROKimberley CHEM 8 (BAS METB)on [id number] gap [Moles/Vol]10.2 mmol/LNormalNewark HospitalComment on above:Performed By: #### UA #### [facility] [address] [address] [address] Itzel LermaCalcium [Mass/Vol]9.8 mg/dLNormal8.5-10.1The [facility] Comment on above:Performed By: #### UA #### [facility] [address] [address] [address] Itzel LermaChloride [Moles/Vol]99 mmol/FJpzryv28-611Bkt [facility] Comment on above:Performed By: #### UA #### [facility] [address] [address] [address] Itzel LermaCO2 [Moles/Vol]27.4 mmol/KPjyaeb46.0-32.0The [facility] Comment on above:Performed By: #### UA #### [facility] [address] [address] [address] Itzel LermaCreatinine [Mass/Vol]2.02 mg/dLCritically high0.70-1.30The [facility] HospitalComment on above:Performed By: #### UA #### [facility] [address] [address] [address] Robbins ChangEGFR-AF OGWSTGZA05 mL/min/1.27v6Yomynyrbbd low>=60The [facility] HospitalComment on above:Performed By: #### UA #### [facility] [address] [address] [address] Itzel EpsteinGFR-NON AF DRGHNBUD54 mL/min/1.44m6Bvxyavpcue low>=60The [facility] HospitalComment on above:Performed By: #### UA #### [facility] [address] [address] [address] Itzel LermaGlucose [Mass/Vol]148 mg/dLCritically genh68-351Psb [facility] HospitalComment on above:Performed By: #### UA #### [facility] [address] [address] [address] Itzel LermaPotassium [Moles/Vol]5.6 mmol/LCritically high3.5-5.1The [facility] HospitalComment on above:Performed By: #### UA #### [facility] [address] [address] [address] Itzel LermaSodium [Moles/Vol]131 mmol/LCritically vqp830-162Xbl [facility] HospitalComment on above:Performed By: #### UA #### [facility] [address] [address] [address] Itzel LermaUrea nitrogen [Mass/Vol]44.0 mg/dLCritically high7.0-18.0The [facility] HospitalComment on above:Performed By: #### UA #### [facility] [address] [place] [address] Dr. Itzel Carbajal nitrogen/Creatinine [Mass ratio]21.8 mg/mgNoThe Surgical Hospital at SouthwoodsComment on above:Performed By: #### UA #### [facility] [address] [place] [address] Dr. Itzel LermaXR KUB 1 VIEWon [id number] KUB 1 VIEWEXAM: XR KUB 1 VIEW HISTORY: Nasogastric tube in situ COMPARISON: None. TECHNIQUE: Single view FINDINGS: IMPRESSION: Single limited view of the abdomen. Enteric tube tip is approximately 6.2 cm below the diaphragm. Air-filled loops of large and small bowel Electronically authenticated by: SHAHZAD VILLALPANDO Date: 2022-11-19 20:24[facility] - DublinOSMOLALITYon [id number] [Osmolality]274 mosm/kg Critically sac111-275Ewo [facility] HospitalComment on above:Performed By: #### OSMO #### [facility] [address] [place] [address] Dr. Itzel LermaCBC AUTO DIFFon [id number] #0.0 103/ulNormal0.0-0.1The [facility] HospitalComselect specialty hospital on above:Performed By: #### OBIA #### [facility] [address] [place] [address] Dr. Itzel LermaBasophils/100 WBC (Bld)0.3 %Normal0.2-2.0The [facility] Comment on above:Performed By: #### OBIA #### [facility] [address] [place] [address] Dr. Itzel Terrazas #0.1 103/ulNormal0.0-0.7The [facility] HospitalComment on above: Performed By: #### OBIA #### [facility] [address] [place] [address] Dr. Itzel Epsteinosinophils/100 WBC (Bld)0.7 %Critically low0.9-7.0The [facility] HospitalComment on above:Performed By: #### OBIA #### [facility] [address] [place] [address] Dr. Itzel Praterthrocyte distribution width (RBC) [Ratio]14.6 %Kcmhnl81.0-15.0 The [facility]S HospitalComment on above:Performed By: #### OBIA #### [facility] [address] [place] [address] Dr. Itzel LermaHematocrit (Bld) [Volume fraction]35.2 %Critically low42.0-54.0 [facility] HospitalComment on above:Performed By: #### OBIA #### [facility] [address] [place] [address] Dr. Itzel LermaHemoglobin (Bld) [Mass/Vol]11.4 g/dLCritically low14.0-18.0The [facility] HospitalComment on above:Performed By: #### OBIA #### [facility] [address] [place] [address] Dr. Itzel Ortega #0.04 10e3/ulCritically high0.00-0.03The [facility] Comment on above:Performed By: #### OBIA #### [facility] [address] [place] [address] Dr. Itzel Ortega %0.4 %Normal0.0-0.5ThMercy Health Lorain HospitalComment on above: Performed By: #### OBIA #### [facility] [address] [place] [address] Dr. Itzel Hahn #0.9 103/ulCritically low1.2-3.8ThMercy Health Lorain Hospital Comment on above:Performed By: #### OBIA #### [facility] [address] [place] [address] Dr. Itzel Martinezmphocytes/100 WBC (Bld)10.4 %Critically low20.5-60.0[facility] HospitalComment on above:Performed By: #### OBIA #### [facility] [address] [place] [address] Dr. Itzel Valdez DIFF REQNONormalThe [facility]S HospitalComment on above: Performed By: #### OBIA #### [facility] [address] [place] [address] Dr. Itzel Maria (RBC) [Entitic mass]29.1 acCnwoox32.9-34.0[facility] HospitalComment on above:Performed By: #### OBIA #### [facility] [address] [place] [address] Dr. Itzel Maria (RBC) [Mass/Vol]32.4 g/eINnkxvn86.9-35.2The [facility] HospitalComment on above:Performed By: #### OBIA #### [facility] [address] [place] [address] Dr. Itzel Maria (RBC) [Entitic vol]89.8 jQCylxbo33.0-94.0The [facility] HospitalComment on above:Performed By: #### OBIA #### [facility] [address] [place] [address] Dr. Itzel Kirkland #1.0 103/ulCritically high0.3-0.8ThMercy Health Lorain Hospital Comment on above:Performed By: #### OBIA #### [facility] [address] [place] [address] Dr. Itzel Mendozaocytes/100 WBC (Bld)11.1 %Normal1.7-12.0[facility] Comment on above:Performed By: #### OBIA #### [facility] [address] [place] [address] Dr. Itzel Watkins #6.9 103/ulCritically high1.4-6.5The [facility] Comment on above:Performed By: #### OBIA #### [facility] [address] [place] [address] Dr. Itzel Hidalgoutrophils/100 WBC (Bld)77.1 %Critically high43.0-75.0The [facility] HospitalComment on above:Performed By: #### OBIA #### [facility] [address] [place] [address] Dr. Itzel LermaPlatelet mean volume (Bld) [Entitic vol]9.5 fLNormal9.5-13.5The [facility] HospitalComment on above:Performed By: #### OBIA #### [facility] [address] [place] [address] Dr. Itzel LermaPLT166 103/fhFmdgcx013-321Azh [facility] HospitalComment on above: Performed By: #### OBIA #### [facility] [address] [place] [address] Dr. Itzel LermaRBC3.92 106/ulCritically low4.70-6.10The [facility] HospitalComment on above:Performed By: #### OBIA #### [facility] [address] [place] [address] Dr. Itzel LermaWBC9.0 103/ulNormal4.0-11.0The [facility] HospitalComment on above: Performed By: #### OBIA #### [facility] [address] [place] [address] Dr. Itzel West PYLORI ANTIBODY IGGon 07-11-2022H. PYLORI IGG ABS1.90 Index ValueCritically high0.00-0.79The [facility]S HospitalComment on above:Result Comment: Negative <0.80 Equivocal 0.80 - 0.89 Positive >0.89Performed By: #### HPYLLC #### [facility] [address] [place] [address] Dr. Itzel LermaOCC BLD IMMUNOASSAYon 11-13-1903SAEHTU BLOODPositiveAbnormal NEGATIVEThe [facility]S HospitalComment on above:Performed By: #### OBIA #### [facility] [address] [place] [address] Dr. Itzel LermaOSMOLALITY URINEon 31-32-2705Wlnknewqrk, Kceos715 mOsmol/kgNormal The [facility]S HospitalComment on above:Result Comment: 24 hr : 300 - 900 Random: 50 - 1400 After 12hr fluid restriction: >850Performed By: #### OBIA #### [facility] [address] [place] [address] Dr. Itzel LermaPROF 14(COMP METB)on 19-24-1827Yjfqaal [Mass/Vol]2.6 g/dL Critically low3.4-5.0The [facility] HospitalComment on above:Performed By: #### OSMO #### [facility] [address] [place] [address] Dr. Itzel LermaAlbumin/Globulin [Mass ratio]0.6 {ratio}NormalThe [facility]'S HospitalComment on above:Performed By: #### OSMO #### [facility] [address] [place] [address] Dr. Itzel Matt [Catalytic activity/Vol]59 U/WIbkqmy62-854Wje [facility] HospitalComment on above:Performed By: #### OSMO #### [facility] [address] [place] [address] Dr. Itzel Finch [Catalytic activity/Vol]10 U/LCritically ufr51-58Sfj [facility] HospitalComment on above:Performed By: #### OSMO #### [facility] [address] [place] [address] Dr. Itzel Kelley gap [Moles/Vol]14.3 mmol/LNormalThe [facility] Comment on above:Performed By: #### OSMO #### [facility] [address] [place] [address] Dr. Itzel Geiger [Catalytic activity/Vol]12 U/LCritically hmz58-36Vzk [facility] HospitalComment on above:Performed By: #### OSMO #### [facility] [address] [address] [address] Itzel LermaBilirubin [Mass/Vol]0.3 mg/dLNormal0.2-1.0The [facility] Comment on above:Performed By: #### OSMO #### [facility] [address] [place] [address] Dr. Itzel LermaCalcium [Mass/Vol]7.5 mg/dLCritically low8.5-10.1The [facility] HospitalComment on above:Performed By: #### OSMO #### [facility] [address] [place] [address] Dr. Itzel LermaChloride [Moles/Vol]116 mmol/LCritically vbhp42-715Pfy [facility] HospitalComment on above:Performed By: #### OSMO #### [facility] [address] [place] [address] Dr. Itzel LermaCO2 [Moles/Vol]14.3 mmol/LCritically low21.0-32.0The [facility] HospitalComment on above:Performed By: #### OSMO #### [facility] [address] [place] [address] Dr. Itzel LermaCreatinine [Mass/Vol]1.38 mg/dLCritically high0.70-1.30The [facility] HospitalComment on above:Performed By: #### OSMO #### [facility] [address] [place] [address] Dr. Itzel EpsteinGFR-AF DAROYYIV91 mL/min/1.88x0Zrlvzg>=60[facility] Comment on above:Performed By: #### OSMO #### [facility] [address] [place] [address] Dr. Itzel EpsteinGFR-NON AF ONJFZAID84 mL/min/1.60q7Xzeckttvkc low>=60The [facility] HospitalComment on above:Performed By: #### OSMO #### [facility] [address] [place] [address] Dr. Itzel LermaGlobulin (S) [Mass/Vol]4.1 g/dLNormMercy Health St. Vincent Medical CenterComment on above:Performed By: #### OSMO #### [facility] [address] [place] [address] Dr. Itzel LermaGlucose [Mass/Vol]137 mg/dLCritically itev27-803Tin [facility] HospitalComment on above:Performed By: #### OSMO #### [facility] [address] [place] [address] Dr. Itzel LermaPotassium [Moles/Vol]3.6 mmol/LNormal3.5-5.1The [facility] Comment on above:Performed By: #### OSMO #### [facility] [address] [place] [address] Dr. Itzel LermaProtein [Mass/Vol]6.7 g/dLNormal6.4-8.2[facility] Comment on above:Performed By: #### OSMO #### [facility] [address] [place] [address] Dr. Itzel LermaSodium [Moles/Vol]141 mmol/KLrpdgx043-110Rzk [facility] Comment on above:Performed By: #### OSMO #### [facility] [address] [place] [address] Dr. Itzel LermaUrea nitrogen [Mass/Vol]25.0 mg/dLCritically high7.0-18.0The [facility] HospitalComment on above:Performed By: #### OSMO #### [facility] [address] [place] [address] Dr. Itzel LermaUrea nitrogen/Creatinine [Mass ratio]18.1 mg/mgNoThe Surgical Hospital at SouthwoodsComment on above:Performed By: #### OSMO #### [facility] [address] [place] [address] Dr. Itzel Velez [id number] Coag (PPP) [Relative time]5.21 {INR} Critically highThe [facility] Children'S HospitalComment on above:Performed By: #### OSMO #### [facility] [address] [place] [address] Dr. Itzel Li [facility] Kindred Hospital DaytonComment on above:Result Comment: DESIRED INR: 2.0 - 3.0 CONDITIONS NOT LISTED BELOW 2.5 - 3.5 FOR PROSTHETIC HEART VALVE REPLACEMENT 2.5 - 3.5 RECURRENT THROMBOSIS Performed By: #### OSMO #### [facility] [address] [place] [address] Dr. Itzel LermaPT Coag (PPP) [Time]50.5 sCritically high9.0-11.6The [facility]'S HospitalComment on above:Performed By: #### OSMO #### [facility] [address] [place] [address] Dr. Itzel Cabrera AUTO DIFFon [id number] #0.0 103/ulNormal0.0-0.1The [facility]'S HospitalComment on above:Performed By: #### UA #### [facility] [address] [place] [address] Dr. Itzel LermaBasophils/100 WBC (Bld)0.2 %Normal0.2-2.0[facility] Comment on above:Performed By: #### UA #### [facility] [address] [place] [address] Dr. Itzel Terrazas #0.1 103/ulNormal0.0-0.7ThMercy Health Lorain HospitalComment on above: Performed By: #### UA #### [facility] [address] [place] [address] Dr. Itzel Epsteinosinophils/100 WBC (Bld)0.4 %Critically low0.9-7.0The [facility]'S HospitalComment on above:Performed By: #### UA #### [facility] [address] [place] [address] Dr. Itzel Epsteinrythrocyte distribution width (RBC) [Ratio]14.3 %Sczngc74.0-15.0 The [facility]'S HospitalComment on above:Performed By: #### UA #### [facility] [address] [place] [address] Dr. Itzel LermaHematocrit (Bld) [Volume fraction]38.2 %Critically low42.0-54.0 The [facility]'S HospitalComment on above:Performed By: #### UA #### [facility] [address] [place] [address] Dr. Itzel LermaHemoglobin (Bld) [Mass/Vol]12.5 g/dLCritically low14.0-18.0The [facility]S HospitalComment on above:Performed By: #### UA #### [facility] [address] [place] [address] Dr. Itzel Ortega #0.11 10e3/ulCritically high0.00-0.03The [facility] Comment on above:Performed By: #### UA #### [facility] [address] [place] [address] Dr. Itzel Ortega %0.7 %Critically high0.0-0.5The [facility]S HospitalComment on above:Performed By: #### UA #### [facility] [address] [place] [address] Dr. Itzel Hahn #1.1 103/ulCritically low1.2-3.8The [facility] Comment on above:Performed By: #### UA #### [facility] [address] [place] [address] Dr. Itzel Weirhocytes/100 WBC (Bld)6.9 %Critically low20.5-60.0The [facility]S HospitalComment on above:Performed By: #### UA #### [facility] [address] [place] [address] Dr. Itzel CondonUAL DIFF REQNONormalThe [facility]'S HospitalComment on above: Performed By: #### UA #### [facility] [address] [place] [address] Dr. Itzel Centeno (RBC) [Entitic mass]29.6 suZwbooi62.9-34.0The [facility]'S HospitalComment on above:Performed By: #### UA #### [facility] [address] [place] [address] Dr. Itzel MariaHC (RBC) [Mass/Vol]32.7 g/tTGrbhhi08.9-35.2The [facility]'S HospitalComment on above:Performed By: #### UA #### [facility] [address] [place] [address] Dr. Itzel Enciso (RBC) [Entitic vol]90.3 cADzcasm84.0-94.0The [facility]'S HospitalComment on above:Performed By: #### UA #### [facility] [address] [address] [address] Itzel Kirkland #1.2 103/ulCritically high0.3-0.8The [facility] Comment on above:Performed By: #### UA #### [facility] [address] [place] [address] Dr. Itzel Mendozaocytes/100 WBC (Bld)8.1 %Normal1.7-12.0[facility] Comment on above:Performed By: #### UA #### [facility] [address] [place] [address] Dr. Itzel Watkins #12.8 103/ulCritically high1.4-6.5The [facility] Comment on above:Performed By: #### UA #### [facility] [address] [place] [address] Dr. Itzel Hidalgoutrophils/100 WBC (Bld)83.7 %Critically high43.0-75.0The [facility]'S HospitalComment on above:Performed By: #### UA #### [facility] [address] [place] [address] Dr. Itzel Nguyen mean volume (Bld) [Entitic vol]9.5 fLNormal9.5-13.5The [facility]'S HospitalComment on above:Performed By: #### UA #### [facility] [address] [place] [address] Dr. Itzel LermaPLT197 103/leAubnyu815-686Jqw [facility] HospitalComment on above: Performed By: #### UA #### [facility] [address] [place] [address] Dr. Itzel LermaRBC4.23 106/ulCritically low4.70-6.10The [facility]S HospitalComment on above:Performed By: #### UA #### [facility] [address] [address] [address] Itzel LermaWBC15.3 103/ulCritically high4.0-11.0The [facility]S HospitalComment on above:Performed By: #### UA #### [facility] [address] [address] [address] Itzel LermaCT ABD/PELVIS WO CONon [id number] ABD/PELVIS WO CONEXAMINATION: CT ABD/PELVIS WO CON, [...] Electronically authenticated by: DORIAN SOARES Date: 2022-07-09 22:32NoThe Surgical Hospital at SouthwoodsCovid-19 PCR (CVDTBH)on [id number]-CoV-2 (COVID-19) RNA JUDY+probe Ql (Unsp spec)Not detectedNormalNOT DETECTEDThe [facility] Comment on above:Result Comment: When diagnostic [...] for this test is supported by the Wire Transfer Clerk of Health and Human Service's declaration that [...] longer be used).Performed By: #### OBIA #### [facility] [address] [place] [address] Dr. Itzel Chauhan PANEL (PCR)on [id number] F 40/41Not detectedNormal NOT DETECTEDNewark HospitalComment on above:Performed By: #### OBIA #### [facility] [address] [place] [address] Dr. Yilan ChangAstrovirusNot detectedNormalNOT DETECTEDThe [facility] Comment on above:Performed By: #### OBIA #### [facility] [address] [address] [address] Itzel Moreno. Diff toxin A/BNot detectedNormalNOT DETECTEDThe [facility]'S HospitalComment on above:Performed By: #### OBIA #### [facility] [address] [address] [address] Itzel De GuzmanpylobacterNot detectedNormalNOT DETECTEDThe [facility] Comment on above:Performed By: #### OBIA #### [facility] [address] [address] [address] Itzel LermaCryptosporidiumNot detectedNormalNOT DETECTEDThe [facility]S HospitalComment on above:Performed By: #### OBIA #### [facility] [address] [address] [address] Itzel Purdy. CayetanensisNot detectedNormalNOT DETECTEDThe [facility]S HospitalComment on above:Performed By: #### OBIA #### [facility] [address] [address] [address] Itzel May Coli K449Pwu ApplicableNormalNot ApplicableThe [facility]S HospitalComselect specialty hospital on above:Performed By: #### OBIA #### [facility] [address] [address] [address] Itzel May histolyticaNot detectedNormalNOT DETECTEDThe [facility] Comment on above:Performed By: #### OBIA #### [facility] [address] [address] [address] Itzel EpsteinAECNot detectedNormalNOT DETECTEDThe [facility]S HospitalComment on above:Performed By: #### OBIA #### [facility] [address] [address] [address] Itzel EpsteinIECNot detectedNormalNOT DETECTEDThe [facility]S HospitalComment on above:Performed By: #### OBIA #### [facility] [address] [address] [address] Itzel EpsteinPECNot detectedNormalNOT DETECTEDThe [facility] HospitalComment on above:Performed By: #### OBIA #### [facility] [address] [address] [address] Itzel Arellano detectedNormalNOT DETECTEDThe [facility] HospitalComselect specialty hospital on above:Performed By: #### OBIA #### [facility] [address] [address] [address] Itzel TayliMychal detectedNormalNOT DETECTEDNew[facility] Comment on above:Performed By: #### OBIA #### [facility] [address] [address] [address] Itzel FELIXOhioHealth Arthur G.H. Bing, MD, Cancer CenterComment on above:Performed By: #### OBIA #### [facility] [address] [place] [address] Dr. Itzel Alvarez TAVO HEADERGI PANEL [facility] Comment on above:Performed By: #### OBIA #### [facility] [address] [place] [address] Dr. Itzel Guerrero ECOLIGI PANEL DIARRHEAGENIC E.COLI / SHIGELLASelect Medical OhioHealth Rehabilitation Hospital - DublinComment on above:Performed By: #### OBIA #### [facility] [address] [place] [address] Dr. Itzel Guerrero INFOSEAkron Children's HospitalComment on above: Result Comment: EAEC- Enteroaggregative E. Coli EPEC- Enteropathogenic E. Coli ETEC- Enterotoxigenic E. Coli lt/st STEC- Shigella-like toxin-producing E. Coli stx1/stx2 EIEC- Shigella/Enteroinvasive E. ColiPerformed By: #### OBIA #### [facility] [address] [place] [address] Dr. Itzel Guerrero PARASITESGI PANEL [facility] Comment on above:Performed By: #### OBIA #### [facility] [address] [place] [address] Dr. Itzel Guerrero VIRUSGI PANEL VIRUSESSelect Medical OhioHealth Rehabilitation Hospital - DublinComment on above:Performed By: #### OBIA #### [facility] [address] [address] [address] Itzel Cainrovirus GI/GIINot detectedNormalNOT DETECTEDThe [facility] HospitalComselect specialty hospital on above:Performed By: #### OBIA #### [facility] [address] [address] [address] Itzel Mills ShigelloidesNot detectedNormalNOT DETECTEDThe [facility]S HospitalComment on above:Performed By: #### OBIA #### [facility] [address] [address] [address] Itzel Villagranavirus ANot detectedNormalNOT DETECTEDThe [facility] Comment on above:Performed By: #### OBIA #### [facility] [address] [place] [address] Dr. Itzel LeramSalmonellaNot detectedNormalNOT DETECTEDThe [facility] Comment on above:Performed By: #### OBIA #### [facility] [address] [address] [address] Itzel LermaSapovirusNot detectedNormalNOT DETECTEDThe [facility] Comment on above:Performed By: #### OBIA #### [facility] [address] [address] [address] Itzel LermaSTECNot detectedNormalNOT DETECTEDThe [facility] HospitalComselect specialty hospital on above:Performed By: #### OBIA #### [facility] [address] [address] [address] Itzel ReabrioNot detectedNormalNOT DETECTEDThe [facility]S HospitalComment on above:Performed By: #### OBIA #### [facility] [address] [address] [address] Itzel Tylerio CholeraNot detectedNormalNOT DETECTEDThe [facility] Comment on above:Performed By: #### OBIA #### [facility] [address] [address] [address] Itzel Henao. EnterocoliticaNot detectedNormalNOT DETECTEDThe [facility] HospitalComment on above:Performed By: #### OBIA #### [facility] [address] [address] [address] Itzel Torres CHEM 8 (BAS METB)on [id number] gap [Moles/Vol]12.6 mmol/LNormalThe [facility]S HospitalComment on above:Performed By: #### OSMO #### [facility] [address] [place] [address] Dr. Itzel LermaCalcium [Mass/Vol]7.7 mg/dLCritically low8.5-10.1The [facility]leton HospitalComment on above:Performed By: #### OSMO #### [facility] [address] [place] [address] Dr. Itzel LermaChloride [Moles/Vol]103 mmol/MEzbavb89-177Saw [facility] Comment on above:Performed By: #### OSMO #### [facility] [address] [place] [address] Dr. Itzel LermaCO2 [Moles/Vol]16.4 mmol/LCritically low21.0-32.0The [facility]S HospitalComment on above:Performed By: #### OSMO #### [facility] [address] [place] [address] Dr. Itzel LermaCreatinine [Mass/Vol]2.03 mg/dLCritically high0.70-1.30The [facility] HospitalComment on above:Performed By: #### OSMO #### [facility] [address] [place] [address] Dr. Itzel EpsteinGFR-AF RYIKIKSB41 mL/min/1.25t8Cerbfbtxte low>=60The [facility]S HospitalComment on above:Performed By: #### OSMO #### [facility] [address] [place] [address] Dr. Itzel EpsteinGFR-NON AF BBKDYQOY65 mL/min/1.50i5Yqjhcfvzwt low>=60The [facility] HospitalComment on above:Performed By: #### OSMO #### [facility] [address] [place] [address] Dr. Itzel LermaGlucose [Mass/Vol]148 mg/dLCritically loyk34-276QrgNewark HospitalComment on above:Performed By: #### OSMO #### [facility] [address] [address] [address] Itzel LermaPotassium [Moles/Vol]4.0 mmol/LNormal3.5-5.1The [facility] Comment on above:Performed By: #### OSMO #### [facility] [address] [address] [address] Itzel LermaSodium [Moles/Vol]128 mmol/LCritically aks335-903Nzj [facility] HospitalComment on above:Performed By: #### OSMO #### [facility] [address] [place] [address] Dr. Itzel LermaUrea nitrogen [Mass/Vol]50.0 mg/dLCritically high7.0-18.0The [facility] HospitalComment on above:Performed By: #### OSMO #### [facility] [address] [place] [address] Dr. Itzel Carbajal nitrogen/Creatinine [Mass ratio]24.6 mg/mgNormalThMercy Health Lorain HospitalComment on above:Performed By: #### OSMO #### [facility] [address] [place] [address] Dr. Itzel Reidon gap [Moles/Vol]14.3 mmol/LNormalNewark Hospital Comment on above:Performed By: #### UA #### [facility] [address] [place] [address] Dr. Itzel LermaCalcium [Mass/Vol]7.8 mg/dLCritically low8.5-10.1The [facility] HospitalComment on above:Performed By: #### UA #### [facility] [address] [place] [address] Dr. Itzel LermaChloride [Moles/Vol]101 mmol/WDbzimr98-912Gcy [facility] Comment on above:Performed By: #### UA #### [facility] [address] [place] [address] Dr. Yilan ChangCO2 [Moles/Vol]14.7 mmol/LCritically low21.0-32.0The [facility] HospitalComment on above:Performed By: #### UA #### [facility] [address] [address] [address] Itzel LermaCreatinine [Mass/Vol]2.01 mg/dLCritically high0.70-1.30The [facility] HospitalComment on above:Performed By: #### UA #### [facility] [address] [address] [address] Robbins ChangEGFR-AF QDHEOIJC07 mL/min/1.64f9Gcspfisfiy low>=60The [facility] HospitalComment on above:Performed By: #### UA #### [facility] [address] [place] [address] Dr. Robbins ChangEGFR-NON AF MTOFUHML41 mL/min/1.91a3Zksoqkogsf low>=60The [facility] HospitalComment on above:Performed By: #### UA #### [facility] [address] [address] [address] Itzel LermaGlucose [Mass/Vol]152 mg/dLCritically imzh59-478Lpk [facility] HospitalComment on above:Performed By: #### UA #### [facility] [address] [place] [address] Dr. Itzel LermaPotassium [Moles/Vol]4.0 mmol/LNormal3.5-5.1The [facility] Comment on above:Performed By: #### UA #### [facility] [address] [address] [address] Itzel LermaSodium [Moles/Vol]126 mmol/LCritically emd393-800Lif [facility] HospitalComment on above:Performed By: #### UA #### [facility] [address] [address] [address] Itzel LermaUrea nitrogen [Mass/Vol]51.0 mg/dLCritically high7.0-18.0The [facility] HospitalComment on above:Performed By: #### UA #### [facility] [address] [place] [address] Dr. Itzel Carbajal nitrogen/Creatinine [Mass ratio]25.4 mg/mgNoThe Surgical Hospital at SouthwoodsComment on above:Performed By: #### UA #### [facility] [address] [place] [address] Dr. Itzel LermaPROTIMEon [id number] Coag (PPP) [Relative time]4.72 {INR} Critically highNewark HospitalComment on above:Performed By: #### PT #### [facility] [address] [place] [address] Dr. Itzel Li GUIDELINESSEE BELOWSelect Medical OhioHealth Rehabilitation Hospital - DublinComment on above:Result Comment: DESIRED INR: 2.0 - 3.0 CONDITIONS NOT LISTED BELOW 2.5 - 3.5 FOR PROSTHETIC HEART VALVE REPLACEMENT 2.5 - 3.5 RECURRENT THROMBOSIS Performed By: #### PT #### [facility] [address] [place] [address] Dr. Itzel LermaPT Coag (PPP) [Time]46.1 sCritically high9.0-11.6The [facility] HospitalComselect specialty hospital on above:Performed By: #### PT #### [facility] [address] [place] [address] Dr. Itzel Martinez RANDOM URINEon [id number] SODIUM<18Vyrdlw64-90KfkNewark HospitalComment on above:Performed By: #### OBIA #### [facility] [address] [place] [address] Dr. Itzel Munoz RANDOMon 70-14-4492Qhdmnpkql Ql (U)NegativeNormalNEGATIVENewark HospitalComment on above:Performed By: #### UA #### [facility] [address] [place] [address] Dr. Itzel Kearns (U)CLEARNormalCLEARNewark HospitalComment on above: Performed By: #### UA #### [facility] [address] [place] [address] Dr. Itzel Castanon (U)LT. YELLOWNormalYELLOWNewark HospitalComment on above:Performed By: #### UA #### [facility] [address] [address] [address] Itzel LermaGlucose Ql (U)NegativeNormalNEGATIVENewark HospitalComment on above:Performed By: #### UA #### [facility] [address] [address] [address] Itzel LermaHemoglobin Ql (U)NegativeNormalNEGATIVENewark Hospital Comment on above:Performed By: #### UA #### [facility] [address] [address] [address] Itzel LermaKetones Ql (U)NegativeNormalNEGATIVENewark HospitalComment on above:Performed By: #### UA #### [facility] [address] [place] [address] Dr. Itzel LermaLEUKOCYTESNegativeNormalNEGATIVENewark HospitalComment on above:Performed By: #### UA #### [facility] [address] [address] [address] Itzel LermaNitrite Ql (U)NegativeNormalNEGATIVENewark HospitalComment on above:Performed By: #### UA #### [facility] [address] [address] [address] Itzel LermapH (U)6.0 [pH]Normal5-9The [facility] HospitalComment on above: Performed By: #### UA #### [facility] [address] [place] [address] Dr. Itzel LermaSPEC GRAVITY1.358Caqzfh2.005-<=1.025The [facility]S HospitalComment on above:Performed By: #### UA #### [facility] [address] [address] [address] Itzel Munoz PROTEINNegativeNormalNEGATIVE/ TRACENewark Hospital Comment on above:Performed By: #### UA #### [facility] [address] [place] [address] Dr. Itzel LermaUrobilinogen Qn (U)0.2 {Reta'U}/dLNormal0.2 - 1.0The [facility] HospitalComment on above:Performed By: #### UA #### [facility] [address] [address] [address] Itzel LermaXR ABD FLAT UP_PA Sterling [id number] ABD FLAT UP_PA CHEXAMINATION: XR ABD FLAT [...] Electronically authenticated by: DORIAN YODER Date: 2022-07-10 10:16NormNewark Hospital AUTO DIFFon [id number] #0.1 103/ulNormal0.0-0.1The [facility] HospitalComment on above:Performed By: #### OBIA #### [facility] [address] [address] [address] Itzel LermaBasophils/100 WBC (Bld)0.2 %Normal0.2-2.0The [facility] Comment on above:Performed By: #### OBIA #### [facility] [address] [address] [address] Itzel Terrazas #0.0 103/ulNormal0.0-0.7The [facility]S HospitalComment on above: Performed By: #### OBIA #### [facility] [address] [address] [address] Itzel Epsteinosinophils/100 WBC (Bld)0.2 %Critically low0.9-7.0The [facility] HospitalComment on above:Performed By: #### OBIA #### [facility] [address] [place] [address] Dr. Itzel Epsteinrythrocyte distribution width (RBC) [Ratio]14.0 %Swtbec90.0-15.0 [facility] HospitalComment on above:Performed By: #### OBIA #### [facility] [address] [place] [address] Dr. Itzel LermaHematocrit (Bld) [Volume fraction]39.3 %Critically low42.0-54.0 The [facility]S HospitalComment on above:Performed By: #### OBIA #### [facility] [address] [place] [address] Dr. Itzel LermaHemoglobin (Bld) [Mass/Vol]13.2 g/dLCritically low14.0-18.0The [facility] HospitalComment on above:Performed By: #### OBIA #### [facility] [address] [place] [address] Dr. Itzel Ortega #0.20 10e3/ulCritically high0.00-0.03The [facility] Comment on above:Performed By: #### OBIA #### [facility] [address] [place] [address] Dr. Itzel Ortega %0.9 %Critically high0.0-0.5ThMercy Health Lorain HospitalComment on above:Performed By: #### OBIA #### [facility] [address] [place] [address] Dr. Itzel Hahn #1.3 103/ulNormal1.2-3.8The [facility] HospitalComment on above:Performed By: #### OBIA #### [facility] [address] [place] [address] Dr. Itzel Martinezmphocytes/100 WBC (Bld)5.8 %Critically low20.5-60.0The [facility] HospitalComment on above:Performed By: #### OBIA #### [facility] [address] [place], [place] [id number] Dr. Itzel Valdez DIFF REQNONormalThe [facility]S HospitalComment on above: Performed By: #### OBIA #### [facility] [address] [place] [address] Dr. Itzel Maria (RBC) [Entitic mass]29.7 kqAvulim02.9-34.0The [facility]S HospitalComment on above:Performed By: #### OBIA #### [facility] [address] [place] [address] Dr. Itzel Maria (RBC) [Mass/Vol]33.6 g/nUWxrkqp43.9-35.2The [facility] HospitalComment on above:Performed By: #### OBIA #### [facility] [address] [place] [address] Dr. Itzel Maria (RBC) [Entitic vol]88.3 nZZctwkz68.0-94.0New[facility] HospitalComment on above:Performed By: #### OBIA #### [facility] [address] [place] [address] Dr. Itzel Kirkland #1.3 103/ulCritically high0.3-0.8ThMercy Health Lorain Hospital Comment on above:Performed By: #### OBIA #### [facility] [address] [place] [address] Dr. Itzel Mendozaocytes/100 WBC (Bld)6.0 %Normal1.7-12.0[facility] Comment on above:Performed By: #### OBIA #### [facility] [address] [place] [address] Dr. Itzel Watkins #19.3 103/ulCritically high1.4-6.5ThMercy Health Lorain Hospital Comment on above:Performed By: #### OBIA #### [facility] [address] [place] [address] Dr. Itzel Hidalgoutrophils/100 WBC (Bld)86.9 %Critically high43.0-75.0The [facility]'S HospitalComment on above:Performed By: #### OBIA #### [facility] [address] [place] [address] Dr. Itzel LermaPlatelet mean volume (Bld) [Entitic vol]9.2 fLCritically low 9.5-13.5The [facility]'S HospitalComment on above:Performed By: #### OBIA #### [facility] [address] [place] [address] Dr. Itzel LermaPLT246 103/thVzpmyl632-962Imb [facility] HospitalComment on above: Performed By: #### OBIA #### [facility] [address] [place] [address] Dr. Itzel LermaRBC4.45 106/ulCritically low4.70-6.10The [facility]S HospitalComment on above:Performed By: #### OBIA #### [facility] [address] [place] [address] Dr. Itzel LermaWBC22.2 103/ulCritically high4.0-11.0The [facility]'S HospitalComment on above:Performed By: #### OBIA #### [facility] [address] [place] [address] Dr. Itzel LermaLACTATE/LACTIC ACIDon 17-19-3330Iocacbo [Moles/Vol]1.0 mmol/L Normal0.4-1.9The [facility]'S HospitalComment on above:Performed By: #### OSMO #### [facility] [address] [place] [address] Dr. Itzel LermaPROF 14(COMP METB)on 31-22-6704Nvkazce [Mass/Vol]3.0 g/dL Critically low3.4-5.0The [facility]'S HospitalComment on above:Performed By: #### CMP #### [facility] [address] [place] [address] Dr. Iztel LermaAlbumin/Globulin [Mass ratio]0.6 {ratio}NormalThe [facility]'S HospitalComment on above:Performed By: #### CMP #### [facility] [address] [place] [address] Dr. Itzel LermaALP [Catalytic activity/Vol]90 U/OGmijzd86-380Lhc [facility] HospitalComment on above:Performed By: #### CMP #### [facility] [address] [address] [address] Itzel Finch [Catalytic activity/Vol]12 U/LCritically swr16-88Wdl [facility] HospitalComment on above:Performed By: #### CMP #### [facility] [address] [address] [address] Itzel Reidon gap [Moles/Vol]18.2 mmol/LNormalThe [facility] Comment on above:Performed By: #### CMP #### [facility] [address] [address] [address] Itzel LermaAST [Catalytic activity/Vol]17 U/ZHqshoo10-20Dug [facility] HospitalComment on above:Performed By: #### CMP #### [facility] [address] [address] [address] Itzel LermaBilirubin [Mass/Vol]0.8 mg/dLNormal0.2-1.0The [facility] Comment on above:Performed By: #### CMP #### [facility] [address] [address] [address] Itzel LermaCalcium [Mass/Vol]7.9 mg/dLCritically low8.5-10.1The [facility]S HospitalComment on above:Performed By: #### CMP #### [facility] [address] [address] [address] Itzel LermaChloride [Moles/Vol]92 mmol/LCritically pph24-928Hag [facility] HospitalComment on above:Performed By: #### CMP #### [facility] [address] [address] [address] Itzel LermaCO2 [Moles/Vol]14.0 mmol/LCritically low21.0-32.0The [facility]'S HospitalComment on above:Performed By: #### CMP #### [facility] [address] [address] [address] Itzel LermaCreatinine [Mass/Vol]2.74 mg/dLCritically high0.70-1.30The [facility]'S HospitalComment on above:Performed By: #### CMP #### [facility] [address] [address] [address] Itzel EpsteinGFR-AF YCHOFXGV94 mL/min/1.77k1Vvepbhyylo low>=60The [facility]'S HospitalComment on above:Performed By: #### CMP #### [facility] [address] [address] [address] Itzel EpsteinGFR-NON AF WZTITQRN80 mL/min/1.81g2Xmmplfglsm low>=60The [facility]'S HospitalComment on above:Performed By: #### CMP #### [facility] [address] [place] [address] Dr. Itzel LermaGlobulin (S) [Mass/Vol]4.9 g/dLNormalThe [facility]S HospitalComment on above:Performed By: #### CMP #### [facility] [address] [place] [address] Dr. Itzel LermaGlucose [Mass/Vol]169 mg/dLCritically ijns16-558Kue [facility] HospitalComment on above:Performed By: #### CMP #### [facility] [address] [place] [address] Dr. Itzel LermaPotassium [Moles/Vol]4.2 mmol/LNormal3.5-5.1The [facility] Comment on above:Performed By: #### CMP #### [facility] [address] [address] [address] Itzel LermaProtein [Mass/Vol]7.9 g/dLNormal6.4-8.2The [facility] Comment on above:Performed By: #### CMP #### [facility] [address] [place] [address] Dr. Itzel LermaSodium [Moles/Vol]120 mmol/LCritically gwz050-571Xhf [facility] HospitalComment on above:Performed By: #### CMP #### [facility] [address] [address] [address] Itzel LermaUrea nitrogen [Mass/Vol]69.0 mg/dLCritically high7.0-18.0The [facility]S HospitalComment on above:Performed By: #### CMP #### [facility] [address] [place] [address] Dr. Itzel LermaUrea nitrogen/Creatinine [Mass ratio]25.2 mg/mgNoOhioHealth [facility] on above:Performed By: #### CMP #### [facility] [address] [place] [address] Dr. Itzel Velez 68-81-2513CVO Coag (PPP) [Relative time]5.18 {INR} Critically highThe [facility] on above:Performed By: #### UA #### [facility] [address] [place] [address] Dr. Itzel Li GUIDELINESSEE BELOWSelect Medical OhioHealth Rehabilitation Hospital - DublinComselect specialty hospital on above:Result Comment: DESIRED INR: 2.0 - 3.0 CONDITIONS NOT LISTED BELOW 2.5 - 3.5 FOR PROSTHETIC HEART VALVE REPLACEMENT 2.5 - 3.5 RECURRENT THROMBOSIS Performed By: #### UA #### [facility] [address] [place] [address] Dr. Itzel LermaPT Coag (PPP) [Time]50.2 sCritically high9.0-11.6The [facility]S HospitalComselect specialty hospital on above:Performed By: #### UA #### [facility] [address] [place] [address] Dr. Itzel Irving 62-12-7195oINJ Coag (Bld) [Time]62.9 sCritically high 22.3-36.2[facility] on above:Performed By: #### UA #### [facility] [address] [place] [address] Dr. Itzel Cramer 62-32-5512TUP8.544 uIU/mLNormal0.358-3.740The [facility] on above:Performed By: #### OBIA #### [facility] [address] [place] [address] Dr. Itzel Lerma Vital Signs Date TimeVital SignValuePerforming WskntzssxZcforiup16-11-4626 14:50-0400 Diastolic blood ljweiwud19 mm[Hg]Madyson Galvez MD Work Phone: [facility]10-06-2025 14:50-0400 Heart rate71 /Lizette Galvez MD Work Phone: [facility]10-06-2025 14:50-0400 Respiratory rate16 /minMadyson Galvez MD Work Phone: 1([phone])589-[address] [place], [place] 4485410-06-2025 14:50-0400 SaO2% (BldA) [Mass fraction]98 %Madyson Galvez MD Work Phone: 1(890)373-[address] [place], [place] 4485410-06-2025 14:50-0400 Systolic blood mqaorkmf814 mm[Hg]Madyson Galvez MD Work Phone: 1(343)[address]10-06-2025 11:11-0400 Body ybubxllbwfe40.1 [degF]Madyson Galvez MD Work Phone: 1(811)854-[address] [place], [place] 4485410-06-2025 11:10-0400 Body .72 cmAkana Galvez MD Work Phone: 2(137)920-[address] [place], [place] 4485410-06-2025 11:10-0400 Body ojmtzl39 kgMadyson Galvez MD Work Phone: [address] [place], [place] [address]604-14-2023 13:11-0400 Body xlvqka749.72 cmMD Ivan Lopez Work Phone: [facility]04-14-2023 13:11-0400 Body xypbjkycvbw41.8 [degF]MD Ivan Lopez Work Phone: [facility]04-14-2023 13:11-0400 Body unraxm06.4 kgMD Ivan Lopez Work Phone: [facility]04-14-2023 13:11-0400 Diastolic blood kpocgioc77 mm[Hg]MD Ivan Lopez Work Phone: [facility]04-14-2023 13:11-0400 Heart rate73 /minMD Ivan Ambrosego Work Phone: [facility]04-14-2023 13:11-0400 Respiratory rate20 /minMD Ivan Ambrosego Work Phone: [facility]04-14-2023 13:11-0400 SaO2% (BldA) [Mass fraction]99 %MD Ivan Lopez Work Phone: [facility]04-14-2023 13:11-0400 Systolic blood vawbpcuq695 mm[Hg]MD Ivan Lopez Work Phone: [facility]08-25-2022 15:00-0400 Body kriiox305.72 [employer] Other [employer] Other 08-25-2022 15:00-0400Body mass index (BMI) [Ratio] 25.09 kg/q6Gwbmakgi Amakem Other [employer] Other 08-25-2022 15:00-0400Body .84 kgLawrjulia Amakem Other [employer] Other 05-26-2022 15:00-0400Body ymsrdp821.72 [employer] Other [employer] Other 05-26-2022 15:00-0400Body mass index (BMI) [Ratio]26 kg/g9Fhasicym [employer] Other [employer] Other 05-26-2022 15:00-0400Body gofmbv97.57 kgLawrjulia Amakem Other [employer] Other 05-26-2022 15:00-0400Diastolic blood nbynedfp08 mm[Hg] Yves Sanford Other [employer] Other 05-26-2022 15:00-0400Systolic blood fkrqckoa673 mm[Hg] Yves Juvenal Other [employer] Other 02-24-2022 14:30-0500Body qfyqni657.72 cmLawmartina Sanford Other [employer] Other 02-24-2022 14:30-0500Body mass index (BMI) [Ratio] 26.76 kg/q2BezaojddYves Cornejoack Other [employer] Other 02-24-2022 14:30-0500Body zwytoh43.83 kgLajustynajulia Cornejoack Other [employer] Other 02-24-2022 14:30-0500Diastolic blood fydbntnh69 mm[Hg] Yves Sanford Other [employer] Other 02-24-2022 14:30-0500Systolic blood nrmoadww326 mm[Hg] Yves Sanford Other [employer] Other Encounters Encounter DateEncounter TypeCare ProviderFacilityStart: 07-04-2025 End: 81-24-5270Dkyeypfuz department patient visitMadyson Galvez MD Work Phone: [phone]-Odzowvgae Room Work Phone: Start: 39-46-4877nrizcdahizVUWProvidence [facility]am[facility] Ambulatory PPGStart: 01-10-2023 End: 04-94-7261Jhfdmxdyj department patient visitMD Ivan Lopez Work Phone: [facility] Work Phone: Start: 11-24-2022 End: 09-41-9329tvjmjidnysZN DOCTOR MISCFacility:M0Urlyi: 11-19-2022 End: 11-91-5050Gocbuhvnwu and management of inpatientDR DOCTOR MISCFacility:H1 Start: 10-29-2022 End: 11-41-5508efpeaevlzfOhdyuxmx [employer] Other [employer] Other Start: 47-82-8524Uukwvuxnw encounterLayanet Sanford FPG Referral CoordinatorStart: 23-23-0547xjsjtbsxsuVwlziqut:EU BellevueStart: 07-10-2022 End: 83-75-3590wklmtzoibdZR DOCTOR MISCFacility:S2Hhgmq: 05-23-2022 End: 55-47-6470qfrvtklcyuMfjfixyu [employer] Other [employer] Other Start: 47-69-2371Pctccl outpatient visit 15 minutes Yves May GastroenterologyStart: 02-21-2022 End: 84-37-3925nnpvrgxvbeHpqgakmk Juvenal Other [employer] Other Start: 66-77-9225Actxfb outpatient visit 15 minutes Yves May GastroenterologyStart: 11-22-2021 End: 56-33-7524kfplncpnwqRmskaifi Juvenal Other [employer] Other Start: 82-47-8050Rkpbta outpatient new 45 minutes Yves May [facility]astroenter[facility] Procedures DateProcedureProcedure DetailPerforming ClinicianStart: 51-58-3878Gfeyd chest X-rayMadyson Galvez MD Work Phone: Start: 58-44-5876KR of head without contrastMD Ivan Lopez Work Phone: Start: 59-64-3587MJE screeningDR DOCTOR MISCComment on above:Performed By: #### UA #### [facility] [address] [place] [address] Dr. Itzel Lerma Plan of Treatment DateCare ActivityDetailAuthorStart: 08-81-8587Hufdxnpw identified in Blood by CultureBlood CultureBarney Children's Medical Centertart: 20-58-0751Baxnvtup identified in Urine by CultureUrine CultureDayton Children'S Hospital Start: 23-76-0225Eqwui [facility] Memorial Hospitaltart: 07-04-2025 [facility] HospitalPatient EducationAshtabula [facility]tr Work Phone: Patient referralAshtabula County Medical Center [facility] Work Phone: Payers DatePayer CategoryPayerPolicy [id number] [id number] .[id number] .[id number] [id number] [facility] [id number] Social History DateTypeDetailFacilitySex Assigned At [employer] HospitalPost Grad [employer]ments [employer] Other Start: 01-10-2023 End: 43-62-8424Ptgfzee smoking status NHISNever smoked tobacco (finding) [facility] Medical Centertart: 25-02-8209Yzv Assigned At [facility] HospitalexMale (finding)[facility] Evaluation note 05-23-2022 Note Date & DfvwZlasBfsynxcm09-24-9807 Evaluation note* Encounter Date Diagnosis Assessment Notes Treatment Notes Treatment Clinical Notes Apr, Diarrhea (ICD-10 - R19.7) patient states does not seem to bad patient does use the imodium as needed Apr,Nausea (ICD-10 - R11.0)will start zofran [employer] Other Evaluation note 02-21-2022 Note Date & LghdLxtoAnykxnya56-88-1127 Evaluation note* Encounter Date Diagnosis Assessment Notes Treatment Notes Treatment Clinical Notes January, Weight loss (ICD-10 - R63.4) January,2Diarrhea (ICD-10 - R19.7) Start Imodium every morning Encouraged low fodmap diet. Education given to patient again. 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) January,Frequent bowel movements (ICD-10 - R19.4) [employer] Other Evaluation note 11-22-2021 Note Date & UyxzVfjmJmytopue24-17-5855 Evaluation note* Encounter Date Diagnosis Assessment Notes Treatment Notes Treatment Clinical Notes Oct, Weight loss (ICD-10 - R63.4) [facility] ST[facility] COPY OF LOW FODMAP DIET GIVEN TO PT RTO 3 MONTHS Oct,2Diarrhea (ICD-10 - R19.7) [employer] Other Evaluation note Note Date & TypeNoteFacilityEvaluation noteNo assessment information available [facility] Work Phone: Evaluation note Note Date & TypeNoteFacilityEvaluation noteNo InformationNortSaint John Vianney Hospital [facility] Other History general Narrative - Reported Note Date & TypeNoteFacilityHistory general Narrative - Reported* Type Description Date Surgical History bowel resection [facility] Other Hospital Discharge instructions Note Date & TypeNoteFacilityHospital Discharge instructions Additional Instructions Please return to emergency department for any new or worrisome symptoms including any chest pain, shortness of breath, vomiting, fever, lightheadedness. Follow-up with your family physician regarding your medications. They may need to be adjusted further given your recent bout of low blood pressure.[facility] Work Phone: Reason for referral (narrative) Note Date & TypeNoteFacilityReason for referral (narrative)No reason for referral information availableAshtabula County Medical Center Ctr Work Phone: Reason for visit Narrative Note Date & TypeNoteFacilityReason for visit NarrativeREFERRED BY KEVIN LOPEZ FOR WEIGHT LOSS. PT DOES TAKE MEDICATIONS, HOWEVER HE DOES NOT RECALL NAMES OR DOSAGES OR HAVE A LIST TO REVIEW, (REFERRAL NOTE RECEIVED)[address] [facility] Other Chief Complaint and Reason for Visit Chief Complaint fall Chief Complaint Admit Date [place] sent in July 04, 2025 10 [...] KNOW NAMES OF MEDICATIONS HE IS ON.[place] AUTH Care Teams (unrecognized sec tion and content) Team Status: Active Member Role Status Dates Ivan Lopez MD Primary Care Provider Active Team Status: Inactive Member Role Status Dates Ivan Lopez MD Primary Care Provider Active Ajit Josefa , APRNEmergency ProviderActive Team Status: Active Member Role Status Dates Karoline Johnson (Clinic) , DO [facility] Primary Care Prov ider Active Team Status: Inactive Member Role Status Dates Madyson Galvez MD Emergency Provider Active Start: July 04, 2025 End: July 04, 2025Jose Albertosaji Combsey (Clinic) , DO [facility] NETWORKPrimary Care Provider ActiveStart: July 04, 2025 End: July 04, 2025 Goals (unrecognized section and content) Goals may be documented in a n alternate section (unrecognized sect ion and content) No Status Records FoundNo Status Records FoundNo Status Records FoundNo Status Records Found INFORMATION SOURCE (unrecogn ized section and content) DATE CREATED AUTHOR 02/12/2023 [facility] DATE CREATED AUTHOR AUTHOR'S ORGANIZ ATION 03/18/2023 [facility] DATE CREATED AUTHOR AUTHOR'S ORGANIZ ATION 07/10/2024 [facility] DATE CREATED AUTHOR AUTHOR'S ORGANIZ ATION 07/16/2025 [facility] FOR RECORDS PERTAINING TO PATIENTS [...] BE BASED ON THE PRIMARY CLINICAL RECORDS. [facility] [place] [facility]. provides no warranty or guarantee of the accuracy or completeness of information in this document.
[2025-07-20 06:06] LABS: SARS-CoV-2 Ag NEGATIVE (NEGATIVE)
[2025-07-20] MEDS: FINASTERIDE 5 MG TABLET PO (08:54)
[2025-07-20] MEDS: METOPROLOL TARTRATE 25 MG TABLET PO (08:54)
[2025-07-20] MEDS: PANTOPRAZOLE SODIUM 40 MG TABLET.DR PO (08:54)
[2025-07-20] MEDS: TAMSULOSIN HCL 0.4 MG CAPSULE PO (08:54)
[2025-07-20] MEDS: DORZOLAMIDE HCL 2%/TIMOLOL MALEATE 0.5% 200 DROP/10 ML BOTTLE OP (08:55)
[2025-07-20] MEDS: DOXYCYCLINE HYCLATE 100 MG in 0.9 % SODIUM CHLORIDE 100 ML IV (09:00)
--- NOTE | 2025-07-20 09:10 | CM.NOTE ---
Rounds made with Dr. Lynne, discussed with pt reason for admission and plan of care. Pt is inpatient status.
--- NOTE | 2025-07-20 09:35 | CM.NOTE ---
[facility] to request transfer. I had to leave a message but the voicemail stated to fax clinical information to fax # [phone]. Clinical was faxed to that fax number and I will await a call back from the [facility] on bed availability.
--- NOTE | 2025-07-20 10:00 | ECG_ITS ---
[facility] Test Date: 2025-07-20 Pat Name: JULIETTE MORROW Department: Room: 203-1 Gender: Male Care Management Associate: : 1940 Requested By: Order Number: [id number] Reading MD: SOFIYA HURT M.D. Measurements Intervals [place] Rate: 80 P: [place]: QRS: -71 QRSD: 145 T: 57 QT: 447 QTc: 516 Interpretive Statements ATRIAL FIBRILLATION WITH CONTROLLED VENTRICULAR RESPONSE RIGHT BUNDLE BRANCH BLOCK [120+ ms QRS DURATION, UPRIGHT V1, 40+ ms S IN I/aVL/V4/V5/V6] POSSIBLE ANTERIOR MYOCARDIAL INFARCTION [30 ms Q WAVE IN V3/V4, OR R < 0.2 mV IN V4], PROBABLY OLD INFERIOR MYOCARDIAL INFARCTION [40+ ms Q WAVE AND/OR ST/T ABNORMALITY IN II/aVF], PROBABLY OLD Compared to ECG 07/19/2025 22:22:06 No significant changes Electronically Signed On 07-20-2025 23:45:29 EDT by SOFIYA HURT M.D.
--- NOTE | 2025-07-20 10:15 | PM.IMHP1 ---
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 Patient presented with hemoptysis, multiple episodes yesterday last of which after he drank coffee last evening. He was at the movies this time. He did have sore throat and cough prior to that. He says that the sputum was old blood. Denies any blood in his stool or hematochezia or melena or nausea or vomiting. Denies any fever or chills. His hemoglobin was 13.8 and today 12.2. Platelets were 1 45,000, white blood cell count was 9.9 K, INR was 1.84. CMP was unremarkable. His proBNP was 6900 similar to when he had back in May. Chest x-ray showed resolving vascular congestion and right perihilar parenchymal changes as well as improving pleural effusions. CTA of the chest showed no central or proximal segmental PE. It did show bibasilar disease and effusions probably left-sided. Consolidative opacity within the medial left lower lobe which is new from the prior exam and may have been obscured by bilateral effusion, the dimensions are 2.8 x 2.6 x 7.2 cm in size. Patient was admitted for further workup and management Review of Systems ROS Status of ROS 10 or more systems reviewed and unremarkable except as noted in history and below [facility] Medical History (Updated 07/20/25 @ 03:28 by Tracy Best RN) History of cardioversion ?Z92.89 - Personal history of other medical treatment (ICD-10) Nondiabetic gastroparesis ?K31.84 - Gastroparesis (ICD-10) (HFpEF) heart failure with preserved ejection fraction ?I50.30 - Unspecified diastolic (congestive) heart failure (ICD-10) HLD (hyperlipidemia) ?E78.5 - Hyperlipidemia, unspecified (ICD-10) Spinal stenosis at L4-L5 level ?M48.061 - Spinal stenosis, lumbar region without neurogenic claudication (ICD-10) Generalized weakness ?R53.1 - Weakness (ICD-10) Ileus following gastrointestinal surgery ?K91.89 - Other postprocedural complications and disorders of digestive system (ICD-10) ?K56.7 - Ileus, unspecified (ICD-10) 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 - Peritoneal adhesions (postprocedural) (postinfection) (ICD-10) Bowel obstruction ?K56.609 - Unspecified intestinal obstruction, unspecified as to partial versus complete obstruction (ICD-10) Hypertension ?I10 - Essential (primary) hypertension (ICD-10) Surgical History H/O exploratory laparotomy ?Z98.890 - Other specified postprocedural states (ICD-10) Family History Mother Family history of cancer Social History Within the past year, how often did you have a drink containing alcohol: never Within the past year, how often did you have six or more drinks on one occasion: never Score interpretation: A score less than 4 is consistent with normal alcohol consumption. 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 Highest level of school completed/degree received: high school graduate Do you want help with school or training: No Are you now , , , , never or living with a partner: In a typical week, how many times do you talk on the telephone with family, friends, or neighbors: 3 or more times per week How often do you get together with friends or relatives: 3 or more times per week How often do you attend anglican or latter-day services: never Do you belong to any clubs or organizations such as anglican groups unions, fraternal or athletic groups, or school groups: no Total score: 1 Score interpretation: A score of less than or equal to 1 indicates the most socially isolated. Little interest or pleasure in doing things: not at all Feeling down, depressed, or hopeless: not at all Feel stressed/tense/nervous/anxious/difficulty sleeping: not at all Due to disability, difficulty making decisions: No Do you think of yourself as: straight/heterosexual Gender Identity: male Meds Home Medications and Allergies Home Medications ?Medication ?Instructions ?Recorded ?Confirmed ?Type atorvastatin 10 mg tablet 10 mg PO QPM 03/14/23 07/19/25 History empagliflozin 25 mg tablet 12.5 mg PO DAILY 03/14/23 07/20/25 History finasteride 5 mg tablet 5 mg PO DAILY 03/14/23 07/20/25 History pantoprazole 40 mg tablet,delayed 40 mg PO DAILY 03/14/23 07/19/25 History release tamsulosin 0.4 mg capsule 0.4 mg PO .qhs 03/14/23 07/20/25 History warfarin 2.5 mg tablet 2.5 mg PO SUTUWETHSA@1700 03/14/23 07/20/25 History furosemide 40 mg tablet 40 mg PO DAILY PRN edema 12/31/24 07/20/25 History metoprolol succinate 100 mg 100 mg PO DAILY 12/31/24 07/19/25 History tablet,extended release 24 hr lisinopril 2.5 mg tablet 2.5 mg PO DAILY 06/21/25 07/19/25 History metoclopramide HCl 5 mg tablet 5 mg PO TID 06/21/25 07/20/25 History brimonidine 0.2 %-timolol 0.5 % 1 drp ophthalmic (eye) QAM 07/20/25 07/20/25 History eye drops (Combigan) levothyroxine 75 mcg tablet 75 mcg PO .acb 07/20/25 07/20/25 History (Synthroid) multivitamin (Daily Multi-Vitamin 1 tab PO DAILY 07/20/25 07/20/25 History tablet) netarsudil 0.02 %-latanoprost 1 drp ophthalmic (eye) QPM 07/20/25 07/20/25 History 0.005 % eye drops (Rocklatan) warfarin 2.5 mg tablet 3.75 mg PO MOFR@1700 07/20/25 07/20/25 History Allergies Allergy/AdvReac Type Severity Reaction Status Date / Time ondansetron (From Zofran) AdvReac Nausea Verified 07/19/25 21:57 Exam Narrative Exam Narrative: General: Chronically ill-appearing patient, not in acute distress however very frail and fragile elderly male. Cooperative on exam, not in distress HEENT: Normocephalic atraumatic, mucous membranes are moist and pink, eyes are clear, normal conjunctiva, vision is grossly intact, posterior pharynx is normal in appearance. Neck: Supple, no JVD, no lymphadenopathy, no thyromegaly Chest: Lungs are clear but diminished with decreased breath sounds in the bases, there is no wheezing rhonchi or rales appreciated no accessory muscle use, patient is speaking in complete sentences-no chest wall tenderness to palpation CVS: Irregular rate and rhythm S1-S2, no murmurs rubs or gallops, pulses are brisk and equal bilaterally ABD: Soft, nondistended, nontender, no rebound guarding or rigidity, bowel sounds are normal, no pulsatile masses appreciated Extremities: Moving all extremities, no lower extremity tenderness or swelling noted, negative Homans' sign, pulses are brisk and equal bilaterally Skin: Normal in appearance without rash,pallor, petechiae or purpura Neuro: No focal deficits, cranial nerves II to XII are intact. Oriented x 3 Constitutional Vital Signs, click to edit/add: Last Vital Signs Temp 97.8 F 07/20/25 07:11 Pulse 85 07/20/25 10:00 Resp 18 07/20/25 07:11 BP 94/63 07/20/25 07:11 Pulse Ox 92 L 07/20/25 07:11 O2 Del Method Room Air 07/20/25 07:11 Internal Medicine - H&P: Reslt Labs Labs: Short CBC 07/19/25 Range/Units 22:30 WBC 9.9 (4.0-11.0) 10^3/uL Hgb 12.2 L (14.0-18.0) g/dL Hct 37.3 L (42.0-54.0) % Plt Count 145 L (150-450) 10^3/uL BMP 07/19/25 22:30 Sodium 136 Potassium 3.8 Chloride 103 Carbon Dioxide 23.6 BUN 31.0 H Creatinine 1.29 Glucose 153 H Calcium 8.4 L Liver Function 07/19/25 Range/Units 22:30 Total Bilirubin 0.7 (0.2-1.0) mg/dL AST 21 (15-37) U/L ALT 32 (16-63) U/L Alkaline Phosphatase 99 (46-116) U/L Albumin 2.9 L (3.4-5.0) g/dL Urinary Catheter Management Urinary Catheter Management Urethral: Cath placed during this visit: yes Urethral indwelling: Yes Reason for continuing: measure accurate output Insertion date: 07/20/25 Insertion time: 03:15 Assessment and Plan Assessment and Plan (1) Cough with hemoptysis: (2) CHF (congestive heart failure): (3) Pleural effusion: (4) Hypoxic respiratory failure: (5) Cachexia: (6) A-fib: Plan Hemoptysis in the setting of left lower lobe opacity, differential may include pneumonia versus mass given the clinical picture On anticoagulation with subtherapeutic INR of 1.84, no episodes of hemoptysis today - Admit patient to medical floor telemetry - Patient has no hemoptysis with the last 24 hours, I will start him on heparin drip which we can stop if the patient develop another hemoptysis - I discussed this plan with the patient's son - We are planning to transfer the patient to somewhere with pulmonology facility, likely primary care will start that now that I saw the CTA result once I saw the patient today -Continue treatment with IV ceftriaxone and azithromycin IV -I reconciled his medication list -Pt is DNRCCA without intubation -Discussed the plan with the pt and his son. Answered their questions. [facility] and [facility] not they are okay with trying to transfer him [facility] in [place]. Will start working on that
--- NOTE | 2025-07-20 10:46 | CM.NOTE ---
After reviewing chart, Dr. Lynne would like pt to transfer to higher level of care. Pt would like his son contacted if [facility] unable [facility]. CM attempted to reach out to pt's son, no answer at this time. Pt thinks his son is on his way to hospital.
--- NOTE | 2025-07-20 10:51 | CM.NOTE ---
I placed another phone call to the [facility] to update them on the need for higher level of care. They will call back if they have a bed available. The person handling this case can be reached at [phone] ext [phone].
--- NOTE | 2025-07-20 11:04 | CM.NOTE ---
Spoke with pt's son Navin, Dr. Lynne discussed reason for transfer with son. Pt and son in agreement to transfer to [facility]. CM called transfer line at [facility] and imitated transfer. Updated Dr. Lynne.
--- NOTE | 2025-07-20 11:55 | CM.NOTE ---
Aj Pleitez at the [facility] they do not have a bed available at the [facility] at this time.
--- NOTE | 2025-07-20 12:00 | CM.NOTE ---
Updated Dr. Lynne that [facility] able to accept pt and will reach out shortly, [facility] no [facility] at [facility].
--- NOTE | 2025-07-20 12:48 | SWNOTE1 ---
Plan is for pt to be transferred to higher level of care.
--- NOTE | 2025-07-20 15:12 | CM.NOTE ---
[facility] pt will go to [id number] and report number [phone]. Updated legal secretary on Med-surg and Dr. Lynne.
--- NOTE | 2025-07-20 15:40 | CM.NOTE ---
[phone] to their facility at 1715 by [facility].
--- NOTE | 2025-07-20 15:44 | PM.DS1 ---
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 Patient presented with hemoptysis, multiple episodes yesterday last of which after he drank coffee last evening. He was at the movies this time. He did have sore throat and cough prior to that. He says that the sputum was old blood. Denies any blood in his stool or hematochezia or melena or nausea or vomiting. Denies any fever or chills. His hemoglobin was 13.8 and today 12.2. Platelets were 1 45,000, white blood cell count was 9.9 K, INR was 1.84. CMP was unremarkable. His proBNP was 6900 similar to when he had back in May. Chest x-ray showed resolving vascular congestion and right perihilar parenchymal changes as well as improving pleural effusions. CTA of the chest showed no central or proximal segmental PE. It did show bibasilar disease and effusions probably left-sided. Consolidative opacity within the medial left lower lobe which is new from the prior exam and may have been obscured by bilateral effusion, the dimensions are 2.8 x 2.6 x 7.2 cm in size. Patient was admitted for further workup and management (1) Cough with hemoptysis: (2) CHF (congestive heart failure): (3) Pleural effusion: (4) Hypoxic respiratory failure: (5) Cachexia: (6) A-fib: Plan Hemoptysis in the setting of left lower lobe opacity, differential may include pneumonia versus mass given the clinical picture On anticoagulation with subtherapeutic INR of 1.84, no episodes of hemoptysis today - Admit patient to medical floor telemetry - Patient has no hemoptysis with the last 24 hours, I will start him on heparin drip which we can stop if the patient develop another hemoptysis, I will [facility] - I discussed this plan with the patient's son - We are planning to transfer the patient to somewhere with pulmonology facility, likely primary care will start that now that I saw the CTA result once I saw the patient today -Continue treatment with IV ceftriaxone and azithromycin IV -I reconciled his medication list -Pt is DNRCCA without intubation -Discussed the plan with the pt and his son. Answered their questions. [facility], and if not they are okay with trying to transfer [facility] in [place]. Will start working on that Addendum Pt accepted at [facility], Dr. Garcia is the accepting physician. Addendum Bed made available at [facility] Patient to be discharged Status at Discharge Overall status at discharge: patient is not back to baseline Time Spent with Patient Time attestation: Total time spent providing and/or coordinating discharge services: Exam Constitutional Vital Signs, click to edit/add: Last Vital Signs Temp 97.8 F 07/20/25 07:11 Pulse 98 H 07/20/25 14:00 Resp 18 07/20/25 13:07 BP 91/57 07/20/25 13:07 Pulse Ox 93 L 07/20/25 13:07 O2 Del Method Room Air 07/20/25 13:07 DS: Data Data Completed and Pending Labs on day of discharge: Labs from last 24 hours 07/20/25 07/19/25 04:58 22:30 WBC 9.9 RBC 3.83 L Hgb 12.2 L Hct 37.3 L MCV 97.4 H MCH 31.9 MCHC 32.7 RDW 15.5 H Plt Count 145 L MPV 10.2 Neut % (Auto) 78.6 H Lymph % (Auto) 8.8 L [place] % (Auto) 11.2 Eos % (Auto) 0.7 L Baso % (Auto) 0.2 Neut # (Auto) 7.8 H Lymph # (Auto) 0.9 L [place] # (Auto) 1.1 H Eos # (Auto) 0.1 Baso # (Auto) 0.0 Abs Immat Gran (auto) 0.05 H Imm/Tot Granulo (auto) 0.5 PT 18.4 H INR 1.84 Sodium 136 Potassium 3.8 Chloride 103 Carbon Dioxide 23.6 Anion Gap 13.2 BUN 31.0 H Creatinine 1.29 Est GFR ( Amer) >60 Est GFR (Non-Af Amer) 53 L BUN/Creatinine Ratio 24.0 Glucose 153 H Lactate 1.4 Calcium 8.4 L Phosphorus 3.3 Magnesium 1.9 Total Bilirubin 0.7 AST 21 ALT 32 Alkaline Phosphatase 99 Troponin I High Sens 15.7 NT-Pro-B Natriuret Pep 6959.0 H* Total Protein 7.6 Albumin 2.9 L Globulin 4.7 Albumin/Globulin Ratio 0.6 Influenza Type A Ag Negative Influenza Type B Ag Negative RSV Antigen Not detected SARS-CoV-2 Ag (CV2AG) Negative Discharge Plan Discharge Disposition: Xfer Acute [facility] Condition: Good
[2025-07-20] MEDS: METOCLOPRAMIDE HCL 10 MG TABLET 5 MG PO (16:28)
--- OUTSIDE RECORDS SUMMARY | 2025-07-20 18:18 | XMS_ITS | Encounter Summary ---
Author Organization [facility] Address [id number] [address] [place] [address] Care Team Providers Care Market Development Executive Name Role Phone Aurelio Gates MD Primary Care Provider [phone] Reason for Visit * Auth/CertSpecialtyDiagnoses / ProceduresReferred By ContactReferred To Contact Diagnoses Hemoptysis Hemoptysis Vianca Rodriguez MD [address] [place] [address] Phone: tel: fax: Referral IDStatusReasonStart DateExpiration DateVisits RequestedVisits [id number] Encounter Details DateTypeDepartmentCare Team (Latest Contact Info)Pwmmtfaxrfq48/22/2025 6:18 PM EDT - PresentHospital Encounter [facility] [address] [place] [id number] Vianca Rodriguez MD [address] [place] [address] Manju Kay MD [address] [place] [address] Corbin Subramanian MD [address] [place] [address] Social History Tobacco UseTypesPacks/DayYears UsedDateSmoking Tobacco: NeverSmokeless Tobacco: Never Tobacco Cessation:Counseling Given: Not Answered Alcohol UseStandard Drinks/WeekCommentsNever0 (1 standard drink = 0.6 oz pure alcohol)PHQ-2AnswerDate RecordedTotal Xtbho047UDIT-CAnswerDate Recorded Q1: How often do you have a drink containing alcohol?Never07/20/2025Q2: How many drinks containing alcohol do you have on a typical day when you are drinking? Patient does not drink07/20/2025Q3: How often do you [...] has the electric, gas, oil, or water ShareThe threatened to shut off services in your [...] InformationValueDate RecordedSex Assigned at Not on fileLegal MloPibm04/18/2021 11:16 AM ESTGender IdentityNot on fileSexual OrientationNot on filedocumented as of this encounter Last Filed Vital Signs Vital SignReadingTime TakenCommentsBlood Uuaubjdc17/5610 7:12 AM EDT Iyana421607/25/2025 7:12 AM GOPKkpybbspqqo23.8 ??C (98.3 ??F)07/25/2025 7:12 AM EDTRespiratory Aewp7202 7:12 AM EDTOxygen Kistuigrpf80%07/25/2025 7:12 AM EDTInhaled Oxygen Concentration--Tpypjs92.8 kg (145 lb 1 oz)07/25/2025 3:58 AM GXYGrqsnu286.7 cm (5' 8 )07/20/2025 9:01 PM EDTBody Mass Index22.0607/20/2025 9:01 PM EDTdocumented in this encounter Functional Status * QuestionAnswerDate of AssessmentAuthorFunctional StatusMinimum assistance 07/21/2025 10:51 AM Elie Orantes RN * AUDIT-C ScoreAnswerDate of QswohggqvcAixttn585/22/2025 7:52 PM Estelita Viera RN * QuestionAnswerDate of AssessmentAuthorQ1: How often do you have a drink containing alcohol?Never07/20/2025 7:52 PM Estelita Viera RNQ2: How many drinks containing alcohol do you have on a typical day when you are drinking? Patient does not drink07/20/2025 7:52 PM Estelita Viera RNQ3: How often do you have six or more drinks on one occasion?Never07/20/2025 7:52 PM Estelita Viera RN documented as of this encounter Mental Status * QuestionAnswerEntry DateAuthorOverall Cognitive BupbxgU31/24/2025 9:58 AM EDT Randal Hodges PT documented in this encounter Progress Notes * Sanchez Reid MD - 07/25/2025 6:59 AM EDT Images from the original note were not included. Jr. Salguero Gregor, M.D., Francisco Moses M.D., Ajit Patel M.D., Patricia Macias M.D., Alina Lopez M.D., Nhan Holden M.D., Gerardo Patrick M.D., Jorgito Campos M.D, Thomas Kumar M.D. Hospital day: 5 Subjective: Patient has remained stable overnight. No acute events were reported. Patient reports no new symptoms or complaints. Afebrile and vital signs stable. Single-lumen Tolliver catheter in place, draining clear yellow urine. Urine output 2700 mL over the past 24 hours. WBC 6.6, Hgb 11.1, Cr 0.95 Results from last 7 days Lab Units 07/24/25 0654 07/23/25 0652 07/22/25 2128 07/22/25 1318 07/22/25 0603 07/22/25 0602 CREATININE mg/dL 0.95 0.93 -- -- -- 0.89 WBC x10E9/L 6.6 6.2 -- -- 7.9 -- HEMOGLOBIN g/dL 11.1* 11.1* 11.5* < > 11.6* -- < > = values in this interval not displayed. Weight: 65.8 kg (145 lb 1 oz) Patient Vitals for the past 24 hrs: BP Temp Temp src Pulse Resp SpO2 Weight 07/25/25 0358 110/72 36.9 ??C (98.4 ??F) Oral 104 17 94 % 65.8 kg (145 lb 1 oz) 07/24/25 2356 145/87 36.5 ??C (97.7 ??F) Oral 111 19 94 % -- 07/24/257 -- -- -- -- 18 97 % -- 07/24/252 -- -- -- -- 18 94 % -- 07/24/25 2002 108/64 36.5 ??C (97.7 ??F) Oral -- 18 94 % -- 07/24/25 1605 111/76 36.6 ??C (97.9 ??F) Oral 104 14 93 % -- 07/24/25 1413 -- -- -- 97 16 95 % -- 07/24/25 1358 -- -- -- 97 16 95 % -- 07/24/25 1101 101/63 36.6 ??C (97.9 ??F) Oral 96 16 95 % -- 07/24/25 0816 117/71 -- -- 101 -- -- -- 10/26/25 0703 95/68 36.6 ??C (97.8 ??F) Oral 100 18 91 % -- Intake/Output Summary (Last 24 hours) at 07/25/2025 0659 Last data filed at 07/25/2025 0401 Gross per 24 hour Intake -- Output 2700 ml Net -2700 ml Lab Results Component Value Date SPECIFICGRA 1.020 07/21/2025 LEUKOCYTE Negative 07/21/2025 GLU 121 (H) 07/24/2025 UROBILINOGEN <1.1 eu/dL 07/21/2025 Additional Lab/culture results: Microbiology Results Procedure Component Value Units Date/Time Lower resp/sputum culture inc gram stain: Patient acquired [[id number]] (Abnormal) Collected: 07/21/25 1647 Specimen: Sputum from Lung Updated: 07/23/25 1040 CULTURE RESULTS NORMAL RESPIRATORY ASTON GRAM STAIN 10 to 24 White Blood Cells/LPF 10 to 24 Squamous Epithelial Cells/LPF 0 to 1 Ciliated Epithelial Cells/LPF Moderate Gram positive cocci in pairs Few Gram positive cocci in chains Few Gram positive bacilli Physical Exam: BP 110/72 Pulse 104 Temp 36.9 ??C (98.4 ??F) (Oral) Resp 17 Ht 172.7 cm (5' 8 ) Wt 65.8 kg (145 lb 1 oz) SpO2 94% BMI 22.06 kg/m?? Constitutional: NAD HEENT: NCAT, PERRLA, EOMI Card: RRR, extremities warm well perfused Pulm: no SOB, no increased WOB. Blood in the nostrils Abdominal: no tenderness, distension, pain. exam: no suprapubic tenderness, no flank pain. Tolliver catheter in place, clear yellow urine Interval Imaging Findings: X-ray chest 1 view Result Date: 07/20/2025 Narrative: Single view chest History: Dyspnea. Pneumonia. Comparison: 06/28/2024 Findings: Stable cardiomediastinal silhouette. Patchy left basilar opacity with trace effusions. Perihilar edema. No pneumothorax. Distention of bowel in the upper abdomen; correlate clinically. Impression: 1. Left basilar opacity, consistent with pneumonia in the appropriate context. Recommend follow-up after treatment. 2. Trace effusions. 3. Gaseous distention of upper abdominal bowel; correlate clinically Finalized by Fracnisco Cheney MD on 07/20/2025 7:46 PM Impression: Navin Christine is a 85 y.o. male with past medical history of congestive heart failure, atrial fibrillation (on warfarin), and type 2 diabetes who presents to [facility] as a transfer from [facility] due to hemoptysis in the setting of left lobe pneumonia. Patient was noted to be in urinary retention and Tolliver catheter was placed for 2 L of output. He subsequently failed a void trial had catheter reintroduced for over 800 cc of output. Renal US showed mild bilateral renal corticalvolume loss and thinning. No renal collecting system dilatation. Plan: Maintain Tolliver catheter for now to allow for detrusor recovery, not a candidate for CIC. Will get DC on catheter Continue Flomax 0.4 mg nightly and finasteride 5 mg daily while inpatient and after discharge Strict monitoring and recording of Ins/Outs Patient will need to follow up with a urologist outpatient, will try to conenct patient with a urologist near [place], [place] Rest of care per primary team Sanchez Barfield MD Urology Resident, PGY-1 07/25/2025 Cosigned by Efren Salguero Jr., MD at 07/25/2025 9:37 AM EDT Associated attestation - Efren Salguero Jr., MD - 07/25/2025 9:37 AM EDT Attending Attestation: I saw the patient. I participated and was physically present during the critical/lopez portions of the service. I was directly involved in the management and treatment plan of the patient. I reviewed the resident's note. Additional Notes/Findings: Interval Pulmonary Medicine provider note reviewed. Clear elie urine Tolliver catheter. I provided independent interpretation of films and reports of Retroperitoneal ultrasound showing nohydronephrosis and age related cortical renal atrophy obviously with completely normal serum creatinine. Impressions: 1. VA patient, poor historian, [facility] resident managed likely through the [place] with finasteride 5 mg and Flomax 0.4 mg nightly benign prostatic hyperplasia admitted [facility] 07/20/2025 hemoptysis and pneumonia with 2 L urinary retention, creatinine 0.93 with failed voiding trials; daughter Rico [phone] 2. marginal ambulatory status 3. Vision loss precluding likely successive intermittent self catheterization, declined by patient/family 07/23/2025 4. By electronic record stage IIIB chronic kidney disease 5. Atrial fibrillation on Coumadin Recommendations: 1. Maintain indwelling Tolliver catheter at least 1-4 weeks to allow attempted detrusor recovery. As noted above, patient really is not a candidate for intermittent self catheterization 2. continue Flomax 0.4 mg nightly and finasteride 5 mg daily now and at discharge 3. Treatment of non urologic issues with other services 5. Discussed Previouslywith his daughter follow up. As he lives in [facility], I reviewed there is a Urology group including Dr. David Ruano does cover that area, and it maybe much more efficient for them to get his care there. He also certainly could get his care through the [place] [facility], where he does get most of his care, and she reviewed insurance commonly from the [place] may determine wherehis care we will need to be provided. I reviewed we have offices in [place] and [place] as well [facility]. She notes they would like to get his urologic care in [place], and she agrees to pursue urology evaluation through primary care there. I reviewed in case he does not get into see urology within a month, he certainly should have a monthly catheter change. Discharge from Urology view with Tolliver catheter and finasteride and Flomax and follow up with Urology in [facility] as mentioned above. We will sign off for now. Thank you very much. I appreciate being asked to help with this patient's care. Efren Salguero Jr., M.D. [facility] [phone] . * Kalpana Asher, CLINICAL APPLICATIONS SPECIALIST-HOME CARE AND HOME HEALTH AIDES TEACHER - 07/24/2025 11:36 AM EDT Images from the original note were not included. [facility] MD Jose Angel Jordan MD Ahmad Abdelwahed, MD Charisse Figueroa, DO Kylah Traylor, MD Rickey Galeano, MD Nela Gutierrez, MD Liudmila Márquez, MD Usha Sparrow, MD April Weir, MD Rosa M Champion, HOME CARE AND HOME HEALTH AIDES TEACHER Kalpana Lb, HOME CARE AND HOME HEALTH AIDES TEACHER Brandi Tapia, HOME CARE AND HOME HEALTH AIDES TEACHER Nara Martín, HOME CARE AND HOME HEALTH AIDES TEACHER Aida Nory, HOME CARE AND HOME HEALTH AIDES TEACHER Renetta Lee, HOME CARE AND HOME HEALTH AIDES TEACHER [facility] Progress Note Patient - Navin Christine Age - 85 [facility] 1940 [id number] Date of Admission - 07/20/2025 6:18 PM SUBJECTIVE Overnight events reviewed, no acute events. His cough has improved quite a bit and he is no longer having hemoptysis. He is tolerating room air. Family is at the bedside and have questions about how to tell when he is building fluid as well as the plan of care and these were discussed. Exam VITALS BP 101/63 Pulse 96 Temp 36.6 ??C (97.9 ??F) (Oral) Resp 16 Ht 172.7 cm (5' 8 ) Wt 64.1 kg(141 lb 5 oz) SpO2 95% BMI 21.49 kg/m?? Intake/Output Summary (Last 24 hours) at 07/24/2025 1136 Last data filed at 07/24/2025 0512 Gross per 24 hour Intake -- Output 2450 ml Net -2450 ml Physical Exam Vitals and nursing note reviewed. Constitutional: General: He is awake. He is not in acute distress. HENT: Head: Normocephalic. Cardiovascular: Rate and Rhythm: Normal rate. Heart sounds: Normal heart sounds. Pulmonary: Effort: Pulmonary effort is normal. No tachypnea, accessory muscle usage or respiratory distress. Breath sounds: Decreased breath sounds present. Abdominal: General: There is no distension. Skin: General: Skin is warm and dry. Neurological: Mental Status: He is alert. Mental status is at baseline. Psychiatric: Mood and Affect: Mood normal. Behavior: Behavior normal. Behavior is cooperative. Meds Medications Reviewed. Lab Results LABs: Results from last 7 days Lab Units 07/24/25 0654 07/23/25 0652 07/22/25212707/22/25 1318 07/22/25 0603 WBC x10E9/L 6.6 6.2 -- -- 7.9 HEMOGLOBIN g/dL 11.1* 11.1* 11.5* < > 11.6* HEMATOCRIT % 32.4* 32.7* 33.9* < > 34.7* PLATELETS X10E9/L 153 141* -- -- 137* < > = values in this interval not displayed. Results from last 7 days Lab Units 07/24/25 0654 07/23/25 1454 07/23/25 0652 07/22/25 0602 POTASSIUM mmol/L 3.7 4.3 3.6 4.3 CHLORIDE mmol/L 106 -- 107 108 CO2 mmol/L 23 -- 23 21* BUN mg/dL 22 -- 25 30* CREATININE mg/dL 0.95 -- 0.93 0.89 CALCIUM mg/dL 8.0* -- 8.1* 7.9* Radiology No new chest imaging ASSESSMENT LLL community-acquired pneumonia, suspect r/t aspiration -sputum culture with normal respiratory aston Acute submassive hemoptysis, improved Chronic HFpEF Paroxysmal afib on Coumadin Urinary retention Never smoker PLAN Tolerating room air Completes antibiotics today No plans for bronchoscopy at this time Monitor for further hemoptysis, has TXA as needed Can resume Coumadin Discharge planning Repeat CT chest as an outpatient in 4 weeks and will arrange follow up with our [place] office after that GARY Padron [facility] Patient Touch or Epic Chat preferred 8a- Office :[phone] 1:36 AM This progress note was completed using a voice needle loom operator system. Every effort was made to ensure accuracy; however, inadvertent computerized needle loom operator errors may be present. GARY Padron 07/24/25 1200 * Manju Kya MD - 07/24/2025 9:53 AM EDT 07/24/2025 Patient Name: Navin Christine : 1940 Problem List: Principal Problem: Hemoptysis Assessment and Plan: Hemoptysis Possible community-acquired pneumonia CTA outside facility obtained Chest x-ray with left basilar opacity, trace effusions Procalcitonin <0.05 Strep and Legionella antigen is negative Sputum culture normal aston -Started on ceftriaxone, continue. Completed azithromycin -Pulmonary consulted and following; currently on inhaled TXA -Monitor hemoglobin, transfuse to keep above 7. Current hemoglobin 11.1 -Continue to monitor hemoptysis; minimal currently. Will restart patient on warfarin -Currently on room air saturating well -Pulmonary following, continue current treatment. Outpatient repeat CT scan in 1 month after discharge Paroxysmal atrial fibrillation, on home Coumadin. Currently on hold for hemoptysis as mentioned above. Continue home metoprolol Heart failure preserved ejection fraction; not in exacerbation Last echo on file from 10/2021 with EF 60-65% CXR no overt edema Euvolemic on examination On room air saturating well Continue home metoprolol Holding lisinopril and Lasix with ongoing hemoptysis and borderline BP On room air saturating well Gaseous distention of the upper abdominal bowel noted on chest x-ray during admission. Patient on metoclopramide at home, continue. Continue to monitor bowel movements. No abdominal distention on exam. Acute urinary retention on admission with history of BPH. Continue Flomax And finasteride. Tolliver catheter inserted from admission. Failed trial of void. PVR with more than 800 cc urine. Will reinsertFoley catheter. Urology consulted. Planning to keep Tolliver catheter for at least 1-4 week, trial of void outpatient. Urinalysis with no evidence of infection. US kidneys pending. Outpatient follow up with urology (can also follow up with [place] or Dr David Ruano) Edema and erythema at site of IV line in the left upper extremity. Duplex pending. Mild thrombocytopenia, resolved Diabetes type 2, non-insulin dependent. Will hold home Jardiance. SSI, hypoglycemia protocol and Accu-Cheks. Essential hypertension, continue metoprolol. Holding lisinopril with ongoing hemoptysis and borderline blood pressure. Continue to monitor blood pressure. Hyperlipidemia, continue statin Hypothyroidism continue Synthroid GERD, continue Protonix Urinalysis with blood, protein and glucose. Outpatient follow-up with PCP. DVT prophylaxis: SCD, restarting warfarin GI prophylaxis: PPI Discharge planning: PT OT recommending home. Patient has home care and private duty nurses 9 hours per week at baseline. Home tomorrow if hemoglobin remains stable on warfarin -plans discussed with RN SUBJECTIVE: Chief complaints: hemoptysis Patient seen and evaluated at bedside. No shortness a breath. Cough has improved significantly withmild amount of hemoptysis. No chest pain. No nausea or vomiting. Review of Systems: All 12 systems were negative unless mentioned in the present history. OBJECTIVE: Exam: BP 117/71 Pulse 101 Temp 36.6 ??C (97.8 ??F) (Oral) Resp 18 Ht 172.7 cm (5' 8 ) Wt 64.1 kg (141 lb 5 oz) SpO2 91% BMI 21.49 kg/m?? Intake/Output Summary (Last 24 hours) at 07/24/2025 0953 Last data filed at 07/24/2025 0512 Gross per 24 hour Intake -- Output 2450 ml Net -2450 ml General appearance: Awake, alert and oriented, not in acute distress Head: Normocephalic, atraumatic, no conjunctival injection Lungs: no accessory muscle, clear to auscultation bilaterally, no crackles or wheezes Heart normal S1-S2, no audible murmurs, no gallops or rubs Chest wall: No tenderness Abdomen: Soft, nondistended, nontender Extremities: No edema, no cyanosis Labs: Recent Results (from the past 24 hours) Bedside Glucose *Place/Obtain serum glucose if >500 per glucometer. Collection Time: 07/23/25 11:09 AM Result Value Ref Range Bedside Glucose (POC) 205 (H) 65 - 99 mg/dL Magnesium Collection Time: 07/23/25 2:54 PM Result Value Ref Range MAGNESIUM 2.3 1.8 - 2.6 mg/dL Potassium Collection Time: 07/23/25 2:54 PM Result Value Ref Range POTASSIUM 4.3 3.5 - 5.0 mmol/L Bedside Glucose *Place/Obtain serum glucose if >500 per glucometer. Collection Time: 07/23/25 3:21 PM Result Value Ref Range Bedside Glucose (POC) 137 (H) 65 - 99 mg/dL Bedside Glucose *Place/Obtain serum glucose if >500 per glucometer. Collection Time: 07/23/25 9:02 PM Result Value Ref Range Bedside Glucose (POC) 129 (H) 65 - 99 mg/dL Basic Metabolic Panel Collection Time: 07/24/25 6:54 AM Result Value Ref Range SODIUM 137 134 - 146 mmol/L POTASSIUM 3.7 3.5 - 5.0 mmol/L CHLORIDE 106 98 - 109 mmol/L CARBON DIOXIDE 23 22 - 32 mmol/L ANION GAP 8 5 - 15 mmol/L BLOOD UREA NITROGEN 22 5 - 27 mg/dL CREATININE 0.95 0.60 - 1.30 mg/dL GLUCOSE 153 (H) 65 - 99 mg/dL CALCIUM 8.0 (L) 8.5 - 10.5 mg/dL EGFR Non-Race Dependent 79 >=60 ml/min/1.73sq.m CBC auto differential Collection Time: 07/24/25 6:54 AM Result Value Ref Range WBC 6.6 4 - 11 x10E9/L RBC Count 3.46 (L) 4.1 - 5.7 X10E12/L Hemoglobin 11.1 (L) 13 - 17 g/dL Hematocrit 32.4 (L) 39 - 50 % MCV 94 80 - 100 fL MCH 32.0 27 - 34 pg MCHC 34.2 32 - 36 g/dL RDW 15.7 (H) 11.5 - 15 % Platelet Count 153 150 - 450 X10E9/L MPV 7.7 7 - 12 fL Neutrophils % 76.5 % Lymphocytes % 10.5 % Monocytes % 10.5 % Eosinophils % 2.2 % Basophils % 0.3 % Neutrophils Absolute (A) 5.0 1.5 - 6.6 10*3/uL Lymphocytes Absolute 0.7 (L) 1.0 - 3.5 10*3/uL Monocytes Absolute 0.7 0.0 - 0.9 10*3/uL Eosinophils Absolute 0.1 0.0 - 0.4 10*3/uL Basophils Absolute 0.0 0.0 - 0.2 10*3/uL Differential Type AUTOMATED DIFFERENTIAL Magnesium Collection Time: 07/24/25 6:54 AM Result Value Ref Range MAGNESIUM 2.2 1.8 - 2.6 mg/dL Protime & INR Collection Time: 07/24/25 6:54 AM Result Value Ref Range PROTIME 17.2 (H) 9.8 - 13.2 sec INR 1.5 (H) 0.9 - 1.2 Bedside Glucose *Place/Obtain serum glucose if >500 per glucometer. Collection Time: 07/24/25 7:07 AM Result Value Ref Range Bedside Glucose (POC) 154 (H) 65 - 99 mg/dL Available imaging and microbiology data has been reviewed in detail and is available in full per EMR. This note is created with the assistance of a speech-recognition program. While intending to generate a document that actually reflects the content of the visit, no guarantees can be provided that every mistake has been identified and corrected by editing. * Sonja Baltazar RPH - 07/24/2025 7:53 AM EDT Pharmacokinetic Consult - Follow Up Warfarin Dosing Navin Christine is a 85 y.o. male for whom pharmacy has been consulted for warfarin dosing and monitoring. Plan Based on dose held for several days and recent hemoptysis will resume patient on home regimen of 2.5mg daily Bridging Agent in Conjunction With Warfarin? : No Pharmacist will continue to follow patient's clinical progress daily. Discharge recommendations Warfarin 2.5 mg daily. Assessment Anticoag Therapy Indication: Cardiac dysrhythmia Target INR: 2 - 3 INR is subtherapeutic Most Recent Warfarin Regimen: 2.5mg daily Results from last 7 days Lab Units 07/24/25 0654 07/21/25 0906 07/20/25 1911 INR 1.5* 2.2* 2.3* Warfarin Administrations (last 168 hours) None Hemoglobin is stable Platelets are stable Bleeding Risks: Age > 65 y;Diabetes mellitus;Other (Comment) (hemoptysis today 07/23 so providerwants wait another day before starting) PO Intake (Vitamin K): Normal intake Sonja Baltazar RPH * Wiley Sullivan MD - 07/24/2025 6:30 AM EDT Images from the original note were not included. Jr. Jose M, Ella Schwartz., Francisco Moses M.D., Ajit Patel M.D., Patricia Macias M.D., Alina Lopez M.D., Nhan Holden M.D., Gerardo Patrick M.D., Jorgito Campos M.D, Thomas Kumar M.D. Hospital day: 4 Subjective: Patient has remained stable overnight. No acute events were reported. Patient reports no new symptoms or complaints. Afebrile and vital signs stable. Single-lumen Tolliver catheter in place, draining clear yellow urine. Urine output 3490 mL over the past 24 hours. Latest labs as follows: Results from last 7 days Lab Units 07/24/25 0654 07/23/25 0652 07/22/25 2128 07/22/25 1318 07/22/25 0603 07/22/25 0602 CREATININE mg/dL 0.95 0.93 -- -- -- 0.89 WBC x10E9/L 6.6 6.2 -- -- 7.9 -- HEMOGLOBIN g/dL 11.1* 11.1* 11.5* < > 11.6* -- < > = values in this interval not displayed. Weight: 64.1 kg (141 lb 5 oz) Patient Vitals for the past 24 hrs: BP Temp Temp src Pulse Resp SpO2 Weight 07/24/25 0703 95/68 36.6 ??C (97.8 ??F) Oral 100 18 91 % -- 07/24/25 0513 -- -- -- -- -- -- 64.1 kg (141 lb 5 oz) 07/24/25 0326 98/64 36.3 ??C (97.4 ??F) Oral 104 16 94 % -- 07/23/25 2301 98/65 -- -- 89 18 98 % -- 07/23/25 2259 98/65 36.9 ??C (98.4 ??F) Oral 95 18 99 % -- 07/23/25 2246 -- -- -- 89 18 95 % -- 07/23/25 1858 102/66 36.5 ??C (97.7 ??F) Oral 90 16 97 % -- 07/23/25 1517 127/87 36.3 ??C (97.4 ??F) Oral 105 18 99 % -- 07/23/25 1356 -- -- -- 89 16 99 % -- 07/23/25 1342 -- -- -- 88 16 91 % -- 07/23/25 1106 99/66 36.4 ??C (97.5 ??F) Oral 97 16 97 % -- 07/23/25 0918 108/80 -- -- 99 -- -- -- Intake/Output Summary (Last 24 hours) at 07/24/2025 0747 Last data filed at 07/24/2025 0512 Gross per 24 hour Intake 550 ml Output 3480 ml Net -2930 ml Lab Results Component Value Date SPECIFICGRA 1.020 07/21/2025 LEUKOCYTE Negative 07/21/2025 GLU 154 (H) 07/24/2025 UROBILINOGEN <1.1 eu/dL 07/21/2025 Additional Lab/culture results: Microbiology Results Procedure Component Value Units Date/Time Lower resp/sputum culture inc gram stain: Patient acquired [[id number]] (Abnormal) Collected: 07/21/25 1647 Specimen: Sputum from Lung Updated: 07/23/25 1040 CULTURE RESULTS NORMAL RESPIRATORY ASTON GRAM STAIN 10 to 24 White Blood Cells/LPF 10 to 24 Squamous Epithelial Cells/LPF 0 to 1 Ciliated Epithelial Cells/LPF Moderate Gram positive cocci in pairs Few Gram positive cocci in chains Few Gram positive bacilli Physical Exam: BP 95/68 Pulse 100 Temp 36.6 ??C (97.8 ??F) (Oral) Resp 18 Ht 172.7 cm (5' 8 ) Wt 64.1 kg(141 lb 5 oz) SpO2 91% BMI 21.49 kg/m?? Constitutional: NAD HEENT: NCAT, PERRLA, EOMI Card: RRR, extremities warm well perfused Pulm: no SOB, no increased WOB. Blood in the nostrils Abdominal: no tenderness, distension, pain. exam: no suprapubic tenderness, no flank pain. Tolliver catheter in place, clear yellow urine Interval Imaging Findings: X-ray chest 1 view Result Date: 07/20/2025 Narrative: Single view chest History: Dyspnea. Pneumonia. Comparison: 06/28/2024 Findings: Stable cardiomediastinal silhouette. Patchy left basilar opacity with trace effusions. Perihilar edema. No pneumothorax. Distention of bowel in the upper abdomen; correlate clinically. Impression: 1. Left basilar opacity, consistent with pneumonia in the appropriate context. Recommend follow-up after treatment. 2. Trace effusions. 3. Gaseous distention of upper abdominal bowel; correlate clinically Finalized by Francisco Cheney MD on 07/20/2025 7:46 PM Impression: Navin Christine is a 85 y.o. male who presents to [facility] as a transfer from [facility] due to hemoptysis in the setting of left lobe pneumonia. - Acute urinary retention, Tolliver catheter was placed for 2 L of output. - Subsequently failed a void trial, catheter reintroduced for over 800 cc of output. - Stage IIIB chronic kidney disease - Urinalysis with large blood but normal WBC and negative nitrite Plan: Maintain Tolliver catheter for now to allow for detrusor recovery, not a candidate for CIC. Likely to get discharged with Tolliver catheter Continue Flomax 0.4 mg nightly and finasteride 5 mg daily while inpatient and after discharge Follow up on retroperitoneal ultrasound Strict monitoring and recording of Ins/Outs Rest of care per primary team Wiley Sullivan MD Urology Resident, PGY-1 07/24/2025 Cosigned by Efren Salguero Jr., MD at 07/24/2025 10:55 AM EDT Associated attestation - Efren Salguero Jr., MD - 07/24/2025 10:55 AM EDT Attending Attestation: I saw the patient. I participated and was physically present during the critical/lopez portions of the service. I was directly involved in the management and treatment plan of the patient. I reviewed the resident's note. Additional Notes/Findings: Internal medicine provider note reviewed and appreciated. Discussed patient's care with him as well as today by telephone with his daughter again. See below. Clear elie urine Tolliver catheter. Labs as above. Impressions: 1. [place] patient, poor historian, [facility] resident managed likely through the [place] with finasteride 5 mg and Flomax 0.4 mg nightly benign prostatic hyperplasia admitted [facility] 07/20/2025 hemoptysis and pneumonia with 2 L urinary retention, creatinine 0.93 with failed voiding trials; daughter Rico [phone] 2. marginal ambulatory status 3. Vision loss precluding likely successive intermittent self catheterization, declined by patient/family 07/23/2025 4. By electronic record stage IIIB chronic kidney disease 5. Atrial fibrillation on Coumadin Recommendations: 1. Maintain indwelling Tolliver catheter at least 1-4 weeks to allow attempted detrusor recovery. As noted above, patient really is not a candidate for intermittent self catheterization 2. continue Flomax 0.4 mg nightly and finasteride 5 mg daily now and at discharge 3. Check retroperitoneal ultrasound in view of dramatic urinary retention 4. Treatment of non urologic issues with other services 5. Discussed today with his daughter follow up. As he lives in [facility], I reviewed there is aUrology group including Dr. David Ruano does cover that area, and it maybe much more efficient for them to get his care there. He also certainly could get his care through the [place] [facility], where he does get most of his care, and she reviewed insurance commonly from the [place] may determine where hiscare we will need to be provided. I reviewed we have offices in [facility] as well as [place]. She notes they would like to get his urologic care in [place], and she agrees to pursue urology evaluation through primary care there. I reviewed in case he does not get into see urology within a month, he certainly should have a monthly catheter change. Awaiting retroperitoneal ultrasound. Otherwise could then be discharged from Urology view point. We will follow with you. Thank you very much. I appreciate being asked to help with this patient's care. Efren Salguero Jr., M.D. [facility] [phone] * Kylah Traylor MD - 07/23/2025 1:48 PM EDT Images from the original note were not included. [facility] Patient - Navin Christine [facility] 85 [facility] 1940 [id number] Date of Admission - 07/20/2025 6:18 PM ASSESSMENT 1. Left lower lobe community-acquired pneumonia, organism unknown 2. Acute submassive hemoptysis 3. History of congestive heart failure 4. Atrial fibrillation, on home Coumadin 5. Dysphagia, per patient's daughter 6. Nonsmoker PLAN 1. Hemoptysis has improved, okay to read start anticoagulation 2. Afebrile since starting antibiotics 3. Sputum culture noted, no bacterial organisms on identified other than normal oral aston. Likely aspiration based on pattern of infiltrate 4. Will likely need ongoing fluid management discussion per Cardiology 5. Likely discharge in the next 24 hours RADIOLOGY No new chest imaging SUBJECTIVE No further hemoptysis. Patient's daughter is at bedside. Had several questions about fluid management. VITALS BP 99/66 Pulse 88 Temp 36.4 ??C (97.5 ??F) (Oral) Resp 16 Ht 172.7 cm (5' 8 ) Wt 57.9 kg (127 lb 10.3 oz) SpO2 91% BMI 19.41 kg/m?? Exam Physical Exam Constitutional He is oriented to person, place, and time. No distress. Nursing note and vitals reviewed. Cardiovascular: Normal rate. Pulmonary/Chest: He has wheezes. Neurological He is alert and oriented to person, place, and time. Meds Medications Reviewed. Lab Results LABs: Results from last 7 days Lab Units 07/23/25 0652 07/22/25 2128 07/22/25 1318 07/22/25 0603 07/21/25 2254 07/21/25 1641 WBC x10E9/L 6.2 -- -- 7.9 -- 6.5 HEMOGLOBIN g/dL 11.1* 11.5* 12.0* 11.6* < > 11.6* HEMATOCRIT % 32.7* 33.9* 35.7* 34.7* < > 34.1* PLATELETS X10E9/L 141* -- -- 137* -- 129* < > = values in this interval not displayed. Results from last 7 days Lab Units 07/23/25 0652 07/22/25 0602 10/23/25 1401 POTASSIUM mmol/L 3.6 4.3 4.3 CHLORIDE mmol/L 107 108 108 CO2 mmol/L 23 21* 20* BUN mg/dL 25 30* 27 CREATININE mg/dL 0.93 0.89 0.92 CALCIUM mg/dL 8.1* 7.9* 8.2* Kylah Traylor MD [facility] Pulmonary / Sleep Medicine Pager: [phone] * Manju Kay MD - 07/23/2025 11:34 AM EDT 07/23/2025 Patient Name: Navin Christine : 1940 Problem List: Principal Problem: Hemoptysis Assessment and Plan: Hemoptysis Possible community-acquired pneumonia CTA outside facility obtained Chest x-ray with left basilar opacity, trace effusions Procalcitonin <0.05 Strep and Legionella antigen is negative Sputum culture normal aston -Started on ceftriaxone and azithromycin on admission, continue -Continue to monitor hemoptysis -Pulmonary consulted and following; currently on inhaled TXA -Monitor hemoglobin, transfuse to keep above 7. Current hemoglobin 11.1 -Continue to hold Coumadin -Currently on room air saturating well -Pulmonary following, continue current treatment. Outpatient repeat CT scan in 1 month after discharge Paroxysmal atrial fibrillation, on home Coumadin. Currently on hold for hemoptysis as mentioned above. Continue home metoprolol Heart failure preserved ejection fraction; not in exacerbation Last echo on file from 10/2021 with EF 60-65% CXR no overt edema Euvolemic on examination On room air saturating well Continue home metoprolol Holding lisinopril and Lasix with ongoing hemoptysis and borderline BP On room air saturating well Gaseous distention of the upper abdominal bowel noted on chest x-ray during admission. Patient on metoclopramide at home, continue. Continue to monitor bowel movements. No abdominal distention on exam. Acute urinary retention on admission with history of BPH. Continue Flomax And finasteride. Tolliver catheter inserted from admission. Failed trial of void. PVR with more than 800 cc urine. Will reinsertFoley catheter. Urology consulted. Planning to keep Tolliver catheter for at least 1 week, trial of void outpatient. Urinalysis with no evidence of infection. Edema and erythema at site of IV line in the left upper extremity. Duplex ordered. Mild thrombocytopenia, platelets improving 141. Continue to monitor levels Diabetes type 2, non-insulin dependent. Will hold home Jardiance. SSI, hypoglycemia protocol and Accu-Cheks. Essential hypertension, continue metoprolol. Holding lisinopril with ongoing hemoptysis and borderline blood pressure. Continue to monitor blood pressure. Hyperlipidemia, continue statin Hypothyroidism continue Synthroid GERD, continue Protonix Urinalysis with blood, protein and glucose. Outpatient follow-up with PCP. DVT prophylaxis: SCD, holding pharmacological prophylaxis with concerns for hemoptysis GI prophylaxis: PPI Discharge planning: PT OT recommending home. Pending resolution of hemoptysis. Patient has home care and private duty nurses 9 hours per week at baseline. -plans discussed with RN SUBJECTIVE: Chief complaints: hemoptysis Patient seen and evaluated at bedside. No shortness a breath. Still with very mild amount of hemoptysis. No chest pain. No nausea or vomiting. Review of Systems: All 12 systems were negative unless mentioned in the present history. OBJECTIVE: Exam: BP 99/66 Pulse 97 Temp 36.4 ??C (97.5 ??F) (Oral) Resp 16 Ht 172.7 cm (5' 8 ) Wt 57.9 kg (127 lb 10.3 oz) SpO2 97% BMI 19.41 kg/m?? Intake/Output Summary (Last 24 hours) at 07/23/2025 1134 Last data filed at 07/23/2025 0909 Gross per 24 hour Intake 550 ml Output 2690 ml Net -2140 ml General appearance: Awake, alert and oriented, not in acute distress Head: Normocephalic, atraumatic, no conjunctival injection Lungs: no accessory muscle, clear to auscultation bilaterally, no crackles or wheezes Heart normal S1-S2, no audible murmurs, no gallops or rubs Chest wall: No tenderness Abdomen: Soft, nondistended, nontender Extremities: No edema, no cyanosis Labs: Recent Results (from the past 24 hours) Bedside Glucose *Place/Obtain serum glucose if >500 per glucometer. Collection Time: 07/22/25 11:47 AM Result Value Ref Range Bedside Glucose (POC) 152 (H) 65 - 99 mg/dL Hemoglobin and hematocrit, blood Collection Time: 07/22/25 1:18 PM Result Value Ref Range Hemoglobin 12.0 (L) 13 - 17 g/dL Hematocrit 35.7 (L) 39 - 50 % Bedside Glucose *Place/Obtain serum glucose if >500 per glucometer. Collection Time: 07/22/25 3:35 PM Result Value Ref Range Bedside Glucose (POC) 123 (H) 65 - 99 mg/dL Bedside Glucose *Place/Obtain serum glucose if >500 per glucometer. Collection Time: 07/22/25 9:17 PM Result Value Ref Range Bedside Glucose (POC) 122 (H) 65 - 99 mg/dL Hemoglobin and hematocrit, blood Collection Time: 07/22/25 9:28 PM Result Value Ref Range Hemoglobin 11.5 (L) 13 - 17 g/dL Hematocrit 33.9 (L) 39 - 50 % Basic Metabolic Panel Collection Time: 07/23/25 6:52 AM Result Value Ref Range SODIUM 137 134 - 146 mmol/L POTASSIUM 3.6 3.5 - 5.0 mmol/L CHLORIDE 107 98 - 109 mmol/L CARBON DIOXIDE 23 22 - 32 mmol/L ANION GAP 7 5 - 15 mmol/L BLOOD UREA NITROGEN 25 5 - 27 mg/dL CREATININE 0.93 0.60 - 1.30 mg/dL GLUCOSE 110 (H) 65 - 99 mg/dL CALCIUM 8.1 (L) 8.5 - 10.5 mg/dL EGFR Non-Race Dependent 81 >=60 ml/min/1.73sq.m CBC auto differential Collection Time: 07/23/25 6:52 AM Result Value Ref Range WBC 6.2 4 - 11 x10E9/L RBC Count 3.51 (L) 4.1 - 5.7 X10E12/L Hemoglobin 11.1 (L) 13 - 17 g/dL Hematocrit 32.7 (L) 39 - 50 % MCV 93 80 - 100 fL MCH 31.6 27 - 34 pg MCHC 33.9 32 - 36 g/dL RDW 15.9 (H) 11.5 - 15 % Platelet Count 141 (L) 150 - 450 X10E9/L MPV 8.2 7 - 12 fL Neutrophils % 74.5 % Lymphocytes % 12.0 % Monocytes % 11.3 % Eosinophils % 1.9 % Basophils % 0.3 % Neutrophils Absolute (A) 4.7 1.5 - 6.6 10*3/uL Lymphocytes Absolute 0.8 (L) 1.0 - 3.5 10*3/uL Monocytes Absolute 0.7 0.0 - 0.9 10*3/uL Eosinophils Absolute 0.1 0.0 - 0.4 10*3/uL Basophils Absolute 0.0 0.0 - 0.2 10*3/uL Differential Type AUTOMATED DIFFERENTIAL Magnesium Collection Time: 07/23/25 6:52 AM Result Value Ref Range MAGNESIUM 1.8 1.8 - 2.6 mg/dL Bedside Glucose *Place/Obtain serum glucose if >500 per glucometer. Collection Time: 07/23/25 7:26 AM Result Value Ref Range Bedside Glucose (POC) 108 (H) 65 - 99 mg/dL Bedside Glucose *Place/Obtain serum glucose if >500 per glucometer. Collection Time: 07/23/25 11:09 AM Result Value Ref Range Bedside Glucose (POC) 205 (H) 65 - 99 mg/dL Available imaging and microbiology data has been reviewed in detail and is available in full per EMR. This note is created with the assistance of a speech-recognition program. While intending to generate a document that actually reflects the content of the visit, no guarantees can be provided that every mistake has been identified and corrected by editing. * Kylah Traylor MD - 07/22/2025 1:50 PM EDT Images from the original note were not included. [facility] Progress Note Patient - Navin Christine Age - 85 y.o. - 1940 Date of Admission - 07/20/2025 6:18 PM ASSESSMENT 1. Left lower lobe community-acquired pneumonia, organism unknown 2. Acute submassive hemoptysis 3. History of congestive heart failure 4. Atrial fibrillation, on home Coumadin 5. Nonsmoker PLAN 1. Continue to monitor hemoptysis over the next 24 hours 2. Afebrile since starting antibiotics 3. Sputum culture if able 4. Continue with inhaled TXA until hemoptysis resolves RADIOLOGY No new chest imaging SUBJECTIVE Patient reports that he is already feeling better. Still having hemoptysis but it is blood-tinged sputum, no clots VITALS BP 99/70 Pulse 98 Temp 36.7 ??C (98.1 ??F) (Oral) Resp 16 Ht 172.7 cm (5' 8 ) Wt 57.2 kg (126 lb 1.7 oz) SpO2 94% BMI 19.17 kg/m?? Exam Physical Exam Constitutional He is oriented to person, place, and time. No distress. Nursing note and vitals reviewed. Cardiovascular: Normal rate. Pulmonary/Chest: He has wheezes. Neurological He is alert and oriented to person, place, and time. Meds Medications Reviewed. Lab Results LABs: Results from last 7 days Lab Units 07/22/25 0603 07/21/25 2254 07/21/25 1641 07/20/25 1911 WBC x10E9/L 7.9 -- 6.5 7.3 HEMOGLOBIN g/dL 11.6* 11.5* 11.6* 11.9* HEMATOCRIT % 34.7* 34.3* 34.1* 35.0* PLATELETS X10E9/L 137* -- 129* 132* Results from last 7 days Lab Units 07/22/25 0602 07/21/25 1401 07/21/25 0547 07/20/25 1911 POTASSIUM mmol/L 4.3 4.3 3.3* 3.4* CHLORIDE mmol/L 108 108 -- 106 CO2 mmol/L 21* 20* -- 23 BUN mg/dL 30* 27 -- 31* CREATININE mg/dL 0.89 0.92 -- 1.07 CALCIUM mg/dL 7.9* 8.2* -- 8.4* Kylah Traylor MD [facility] Pul[facility] / Sleep Medicine Pager: [phone] * Manju Kay MD - 07/22/2025 1:45 PM EDT 07/22/2025 Patient Name: Navin Christine : 1940 Problem List: Principal Problem: Hemoptysis Assessment and Plan: Hemoptysis Possible community-acquired pneumonia CTA outside facility obtained Chest x-ray with left basilar opacity, trace effusions Procalcitonin <0.05 Strep and Legionella antigen is negative Sputum culture pending Started on ceftriaxone and azithromycin on admission, continue Continue to monitor hemoptysis Pulmonary consulted and following Monitor hemoglobin, transfuse to keep above 7. Current hemoglobin stable 11.6 Continue to hold Coumadin Continue inhaled TXA Currently on room air saturating well Pulmonary following, continue current treatment. Outpatient repeat CT scan in 1 month after discharge Paroxysmal atrial fibrillation, on home Coumadin. Currently on hold for hemoptysis as mentioned above. Continue home metoprolol Heart failure preserved ejection fraction; not in exacerbation Last echo on file from 10/2021 with EF 60-65% CXR no overt edema Euvolemic on examination On room air saturating well Continue home metoprolol Holding lisinopril and Lasix with ongoing hemoptysis and borderline BP On room air saturating well Gaseous distention of the upper abdominal bowel noted on chest x-ray during admission. Patient on metoclopramide at home, continue. Continue to monitor bowel movements. No abdominal distention on exam. Acute urinary retention on admission with history of BPH. Continue Flomax And finasteride. Tolliver catheter inserted from admission. Will try trial of void. Monitor PVRs. Urinalysis with no evidence of infection. Mild thrombocytopenia, platelets 137. Continue to monitor levels Diabetes type 2, non-insulin dependent. Will hold home Jardiance. SSI, hypoglycemia protocol and Accu-Cheks. Essential hypertension, continue metoprolol. Holding lisinopril with ongoing hemoptysis and borderline blood pressure. Continue to monitor blood pressure. Hyperlipidemia, continue statin Hypothyroidism continue Synthroid GERD, continue Protonix Urinalysis with blood, protein and glucose. Outpatient follow-up with PCP. DVT prophylaxis: SCD, holding pharmacological prophylaxis with concerns for hemoptysis GI prophylaxis: PPI Discharge planning: PT OT consulted for discharge planning. Pending resolution of hemoptysis. Patient has home care and private duty nurses 9 hours per week at baseline. Will evaluate to see if he had requires higher level of care on discharge -plans discussed with RN SUBJECTIVE: Chief complaints: hemoptysis Patient seen and evaluated at bedside. No shortness a breath. Still with very mild amount of hemoptysis. No chest pain. No nausea or vomiting. Review of Systems: All 12 systems were negative unless mentioned in the present history. OBJECTIVE: Exam: BP 99/70 Pulse 98 Temp 36.7 ??C (98.1 ??F) (Oral) Resp 16 Ht 172.7 cm (5' 8 ) Wt 57.2 kg (126 lb 1.7 oz) SpO2 94% BMI 19.17 kg/m?? Intake/Output Summary (Last 24 hours) at 07/22/2025 1345 Last data filed at 07/22/2025 1200 Gross per 24 hour Intake 385.59 ml Output 1725 ml Net -1339.41 ml General appearance: Awake, alert and oriented, not in acute distress Head: Normocephalic, atraumatic, no conjunctival injection Lungs: no accessory muscle, clear to auscultation bilaterally, no crackles or wheezes Heart normal S1-S2, no audible murmurs, no gallops or rubs Chest wall: No tenderness Abdomen: Soft, nondistended, nontender Extremities: No edema, no cyanosis Labs: Recent Results (from the past 24 hours) Bedside Glucose *Place/Obtain serum glucose if >500 per glucometer. Collection Time: 07/21/25 1:56 PM Result Value Ref Range Bedside Glucose (POC) 100 (H) 65 - 99 mg/dL Basic Metabolic Panel Collection Time: 07/21/25 2:01 PM Result Value Ref Range SODIUM 139 134 - 146 mmol/L POTASSIUM 4.3 3.5 - 5.0 mmol/L CHLORIDE 108 98 - 109 mmol/L CARBON DIOXIDE 20 (L) 22 - 32 mmol/L ANION GAP 11 5 - 15 mmol/L BLOOD UREA NITROGEN 27 5 - 27 mg/dL CREATININE 0.92 0.60 - 1.30 mg/dL GLUCOSE 110 (H) 65 - 99 mg/dL CALCIUM 8.2 (L) 8.5 - 10.5 mg/dL EGFR Non-Race Dependent 82 >=60 ml/min/1.73sq.m Magnesium Collection Time: 07/21/25 2:01 PM Result Value Ref Range MAGNESIUM 1.9 1.8 - 2.6 mg/dL Bedside Glucose *Place/Obtain serum glucose if >500 per glucometer. Collection Time: 07/21/25 3:56 PM Result Value Ref Range Bedside Glucose (POC) 138 (H) 65 - 99 mg/dL CBC auto differential Collection Time: 07/21/25 4:41 PM Result Value Ref Range WBC 6.5 4 - 11 x10E9/L RBC Count 3.62 (L) 4.1 - 5.7 X10E12/L Hemoglobin 11.6 (L) 13 - 17 g/dL Hematocrit 34.1 (L) 39 - 50 % MCV 94 80 - 100 fL MCH 32.1 27 - 34 pg MCHC 34.1 32 - 36 g/dL RDW 16.0 (H) 11.5 - 15 % Platelet Count 129 (L) 150 - 450 X10E9/L MPV 8.4 7 - 12 fL Neutrophils % 74.6 % Lymphocytes % 11.9 % Monocytes % 11.1 % Eosinophils % 2.1 % Basophils % 0.3 % Neutrophils Absolute (A) 4.9 1.5 - 6.6 10*3/uL Lymphocytes Absolute 0.8 (L) 1.0 - 3.5 10*3/uL Monocytes Absolute 0.7 0.0 - 0.9 10*3/uL Eosinophils Absolute 0.1 0.0 - 0.4 10*3/uL Basophils Absolute 0.0 0.0 - 0.2 10*3/uL Differential Type AUTOMATED DIFFERENTIAL Lower resp/sputum culture inc gram stain: Patient acquired Collection Time: 07/21/25 4:47 PM Specimen: Lung; Sputum Result Value Ref Range GRAM STAIN 10 to 24 White Blood Cells/LPF (A) GRAM STAIN 10 to 24 Squamous Epithelial Cells/LPF (A) GRAM STAIN 0 to 1 Ciliated Epithelial Cells/LPF (A) GRAM STAIN Moderate Gram positive cocci in pairs (A) GRAM STAIN Few Gram positive cocci in chains (A) GRAM STAIN Few Gram positive bacilli (A) Bedside Glucose *Place/Obtain serum glucose if >500 per glucometer. Collection Time: 07/21/25 9:08 PM Result Value Ref Range Bedside Glucose (POC) 181 (H) 65 - 99 mg/dL Hemoglobin and hematocrit, blood Collection Time: 07/21/25 10:54 PM Result Value Ref Range Hemoglobin 11.5 (L) 13 - 17 g/dL Hematocrit 34.3 (L) 39 - 50 % Extra Tubes Collection Time: 07/21/25 10:54 PM Narrative The following orders were created for panel order Extra Tubes. Procedure Abnormality Status --------- ------ PST TOP[[id number]] Final result Please view results for these tests on the individual orders. PST TOP Collection Time: 07/21/25 10:54 PM Result Value Ref Range Extra Tube Auto Resulted Basic Metabolic Panel Collection Time: 07/22/25 6:02 AM Result Value Ref Range SODIUM 137 134 - 146 mmol/L POTASSIUM 4.3 3.5 - 5.0 mmol/L CHLORIDE 108 98 - 109 mmol/L CARBON DIOXIDE 21 (L) 22 - 32 mmol/L ANION GAP 8 5 - 15 mmol/L BLOOD UREA NITROGEN 30 (H) 5 - 27 mg/dL CREATININE 0.89 0.60 - 1.30 mg/dL GLUCOSE 132 (H) 65 - 99 mg/dL CALCIUM 7.9 (L) 8.5 - 10.5 mg/dL EGFR Non-Race Dependent 85 >=60 ml/min/1.73sq.m Magnesium Collection Time: 07/22/25 6:02 AM Result Value Ref Range MAGNESIUM 1.8 1.8 - 2.6 mg/dL CBC auto differential Collection Time: 07/22/25 6:03 AM Result Value Ref Range WBC 7.9 4 - 11 x10E9/L RBC Count 3.65 (L) 4.1 - 5.7 X10E12/L Hemoglobin 11.6 (L) 13 - 17 g/dL Hematocrit 34.7 (L) 39 - 50 % MCV 95 80 - 100 fL MCH 31.7 27 - 34 pg MCHC 33.4 32 - 36 g/dL RDW 15.6 (H) 11.5 - 15 % Platelet Count 137 (L) 150 - 450 X10E9/L MPV 8.3 7 - 12 fL Neutrophils % 79.5 % Lymphocytes % 9.1 % Monocytes % 10.0 % Eosinophils % 1.2 % Basophils % 0.2 % Neutrophils Absolute (A) 6.3 1.5 - 6.6 10*3/uL Lymphocytes Absolute 0.7 (L) 1.0 - 3.5 10*3/uL Monocytes Absolute 0.8 0.0 - 0.9 10*3/uL Eosinophils Absolute 0.1 0.0 - 0.4 10*3/uL Basophils Absolute 0.0 0.0 - 0.2 10*3/uL Differential Type AUTOMATED DIFFERENTIAL Bedside Glucose *Place/Obtain serum glucose if >500 per glucometer. Collection Time: 07/22/25 7:39 AM Result Value Ref Range Bedside Glucose (POC) 119 (H) 65 - 99 mg/dL Bedside Glucose *Place/Obtain serum glucose if >500 per glucometer. Collection Time: 07/22/25 11:47 AM Result Value Ref Range Bedside Glucose (POC) 152 (H) 65 - 99 mg/dL Available imaging and microbiology data has been reviewed in detail and is available in full per EMR. This note is created with the assistance of a speech-recognition program. While intending to generate a document that actually reflects the content of the visit, no guarantees can be provided that every mistake has been identified and corrected by editing. * Manju Kay MD - 07/21/2025 1:32 PM EDT 07/21/2025 Patient Name: Navin Christine : 1940 Problem List: Principal Problem: Hemoptysis Assessment and Plan: Hemoptysis Possible community-acquired pneumonia CTA outside facility obtained Chest x-ray with left basilar opacity, trace effusions Procalcitonin <0.05 Strep and Legionella antigen is negative Sputum culture ordered Started on ceftriaxone and azithromycin on admission, continue Continue to monitor hemoptysis Pulmonary consulted and following Monitor hemoglobin, transfuse to keep above 7. Current hemoglobin stable 11.9 Continue to hold Coumadin, vitamin K given for INR 2.2 Continue inhaled TXA Currently on room air saturating well Paroxysmal atrial fibrillation, on home Coumadin. Currently on hold for hemoptysis as mentioned above. INR 2.2. Will give dose of vitamin K. Continue home metoprololWith holding parameters Heart failure preserved ejection fraction; not in exacerbation Last echo on file from 10/2021 with EF 60-65% CXR no overt edema Euvolemic on examination On room air saturating well Continue home metoprolol Holding lisinopril and Lasix with ongoing hemoptysis On room air saturating well Gaseous distention of the upper abdominal bowel noted on chest x-ray during admission. Patient on metoclopramide at home, continue. Continue to monitor bowel movements. No abdominal distention on exam today. Acute urinary retention on admission with history of BPH. Continue Flomax And finasteride. Tolliver catheter inserted from admission. Will need trial of void prior to discharge. Will obtain urinalysis. Mild thrombocytopenia, platelets 132 on admission. Continue to monitor levels Electrolyte imbalance, K3.4 on admission. Replacement per protocol. Monitor potassium and magnesiumlevels Diabetes type 2, non-insulin dependent. Will hold home Jardiance. SSI, hypoglycemia protocol and Accu-Cheks. Essential hypertension, continue metoprolol. Holding lisinopril with ongoing hemoptysis and borderline blood pressure. Continue to monitor blood pressure. Hyperlipidemia, continue statin Hypothyroidism continue Synthroid GERD, continue Protonix DVT prophylaxis: SCD, holding pharmacological prophylaxis with concerns for hemoptysis GI prophylaxis: PPI Code status: will need to discuss with patient Discharge planning: will consult PT OT -plans discussed with RN SUBJECTIVE: Chief complaints: hemoptysis Patient seen and evaluated at bedside. Breathing stable, improved from yesterday. Still coughing with hemoptysis. No chest pain. No nausea or vomiting. Review of Systems: All 12 systems were negative unless mentioned in the present history. OBJECTIVE: Exam: BP 97/60 Pulse 100 Temp 36.4 ??C (97.5 ??F) (Oral) Resp 20 Ht 172.7 cm (5' 8 ) Wt 65.9 kg(145 lb 4.5 oz) SpO2 99% BMI 22.09 kg/m?? Intake/Output Summary (Last 24 hours) at 07/21/2025 1332 Last data filed at 07/21/2025 1132 Gross per 24 hour Intake 896.47 ml Output 500 ml Net 396.47 ml General appearance: Awake, alert and oriented, not in acute distress Head: Normocephalic, atraumatic, no conjunctival injection Lungs: no accessory muscle, clear to auscultation bilaterally, no crackles or wheezes Heart normal S1-S2, no audible murmurs, no gallops or rubs Chest wall: No tenderness Abdomen: Soft, nondistended, nontender Extremities: No edema, no cyanosis Labs: Recent Results (from the past 24 hours) CBC auto differential Collection Time: 07/20/25 7:11 PM Result Value Ref Range WBC 7.3 4 - 11 x10E9/L RBC Count 3.76 (L) 4.1 - 5.7 X10E12/L Hemoglobin 11.9 (L) 13 - 17 g/dL Hematocrit 35.0 (L) 39 - 50 % MCV 93 80 - 100 fL MCH 31.7 27 - 34 pg MCHC 34.0 32 - 36 g/dL RDW 16.0 (H) 11.5 - 15 % Platelet Count 132 (L) 150 - 450 X10E9/L MPV 8.2 7 - 12 fL Neutrophils % 73.8 % Lymphocytes % 11.4 % Monocytes % 13.3 % Eosinophils % 1.3 % Basophils % 0.2 % Neutrophils Absolute (A) 5.4 1.5 - 6.6 10*3/uL Lymphocytes Absolute 0.8 (L) 1.0 - 3.5 10*3/uL Monocytes Absolute 1.0 (H) 0.0 - 0.9 10*3/uL Eosinophils Absolute 0.1 0.0 - 0.4 10*3/uL Basophils Absolute 0.0 0.0 - 0.2 10*3/uL Differential Type AUTOMATED DIFFERENTIAL Basic Metabolic Panel Collection Time: 07/20/25 7:11 PM Result Value Ref Range SODIUM 138 134 - 146 mmol/L POTASSIUM 3.4 (L) 3.5 - 5.0 mmol/L CHLORIDE 106 98 - 109 mmol/L CARBON DIOXIDE 23 22 - 32 mmol/L ANION GAP 9 5 - 15 mmol/L BLOOD UREA NITROGEN 31 (H) 5 - 27 mg/dL CREATININE 1.07 0.60 - 1.30 mg/dL GLUCOSE 100 (H) 65 - 99 mg/dL CALCIUM 8.4 (L) 8.5 - 10.5 mg/dL EGFR Non-Race Dependent 68 >=60 ml/min/1.73sq.m Protime & INR Collection Time: 07/20/25 7:11 PM Result Value Ref Range PROTIME 26.6 (H) 9.8 - 13.2 sec INR 2.3 (H) 0.9 - 1.2 APTT Collection Time: 07/20/25 7:11 PM Result Value Ref Range APTT 35 26 - 37 sec Type and screen Collection Time: 07/20/25 7:11 PM Result Value Ref Range ABO O RH Positive Antibody Screen Negative ABO Rh Repeat Collection Time: 07/20/25 8:03 PM Result Value Ref Range ABO O RH Positive Extra Tubes Collection Time: 07/20/25 8:03 PM Narrative The following orders were created for panel order Extra Tubes. Procedure Abnormality Status --------- ------ SST TOP[[id number]] Final result Please view results for these tests on the individual orders. SST TOP Collection Time: 07/20/25 8:03 PM Result Value Ref Range Extra Tube Auto Resulted Potassium Collection Time: 07/21/25 5:47 AM Result Value Ref Range POTASSIUM 3.3 (L) 3.5 - 5.0 mmol/L Extra Tubes Collection Time: 07/21/25 5:47 AM Narrative The following orders were created for panel order Extra Tubes. Procedure Abnormality Status --------- ------ Lavender Top[[id number]] Final result Please view results for these tests on the individual orders. Lavender Top Collection Time: 07/21/25 5:47 AM Result Value Ref Range Extra Tube Auto Resulted Procalcitonin Collection Time: 07/21/25 5:47 AM Result Value Ref Range PROCALCITONIN <0.05 <0.05 ng/mL Narrative <0.50 ng/mL - Low risk of severe sepsis and/or septic shock. <2.00 ng/mL - Recommend retesting within 6-24 hours. >2.00 ng/mL - High risk of sepsis and/or septic shock. Phosphorus Collection Time: 07/21/25 5:47 AM Result Value Ref Range PHOSPHORUS 3.0 2.4 - 4.9 mg/dL Protime & INR Collection Time: 07/21/25 9:06 AM Result Value Ref Range PROTIME 24.7 (H) 9.8 - 13.2 sec INR 2.2 (H) 0.9 - 1.2 APTT Collection Time: 07/21/25 9:06 AM Result Value Ref Range APTT 34 26 - 37 sec Urinalysis Collection Time: 07/21/25 9:46 AM Specimen: Urine Result Value Ref Range COLOR Yellow Yellow TURBIDITY Clear Clear SPECIFIC GRAVITY 1.020 1.003 - 1.035 NITRITE Negative Negative PH,URINE 6.0 5.0 - 8.5 LEUKOCYTE ESTERASE Negative Negative PROTEIN 30 mg/dL (A) Negative KETONES (URINE) Negative Negative UROBILINOGEN <1.1 eu/dL <1.1 eu/dL BILIRUBIN (URINE) Negative Negative BLOOD/HGB Large (A) Negative R.B.CELLS 108 (H) 0 - 5 SQUAMOUS EPITHELIUM <1 0 - 5 W.B.CELLS 4 0 - 5 GLUCOSE (URINE) >1000 mg/dL (A) Negative S Pneumoniae AG, urine Collection Time: 07/21/25 9:47 AM Specimen: Urine Result Value Ref Range S PNEUMONIAE AG U Negative Negative Legionella antigen, urine Collection Time: 07/21/25 9:47 AM Specimen: Urine Result Value Ref Range LEGIONELLA URINE AG Negative, No L. pneumophila serogroup 1 Antigen Negative, No L. pneumophila serogroup 1 Antigen Available imaging and microbiology data has been reviewed in detail and is available in full per EMR. This note is created with the assistance of a speech-recognition program. While intending to generate a document that actually reflects the content of the visit, no guarantees can be provided that every mistake has been identified and corrected by editing. documented in this encounter H&P Notes * Riana Soria MD - 07/20/2025 8:52 PM EDT Images from the original note were not included. [facility] History and Physical 07/20/2025 Patient Name: Navin Christine : 1940 Chief Complaint Hemoptysis Assessment and Plan Principal Problem: Hemoptysis Hemoptysis with CT scan showing possible pneumonia, azithromycin, Rocephin, hold Coumadin, consult Pulmonary Hypoxia with respiratory failure most likely due to 1. History of CHF continue statin, metoprolol, Protonix, patient may need Lasix History of BPH continue Flomax and finasteride Hypothyroidism continue Synthroid -Plan of care discussed at length with patient at bedside HPI Navin Christine is a 85 y.o. male with past medical history significant for patient has history of systolic and diastolic CHF, patient is on Warfarin and beta kimmy, patientwas at [place] a few weeks ago with hypoxia and respiratory failure, this is when the CHF was found, patient was since discharged to home health, yesterday patient was watching movie with son and pat ient started coughing up blood, per patient son the blood was in patient's sputum, CT and chest xray completed in ED, patient admitted to floor, labs discussed, CTA chest completed and results discussed, opacity shown in left lower lobe of lung which is new compared to prior scans, patient has beenlosing weight, pulmonology is not available at [place] as well as no IR, patient was started on IVCeftriaxone, Warfarin held, no more episodes of hemoptysis ED COURSE ED TRIAGE VITALS ED Triage Vitals Temp Pulse Resp BP SpO2 07/20/25192807/20/25183207/20/25183207/20/25183207/20/251832 37.7 ??C (99.9 ??F) 99 21 (!) 87/65 93 % Temp Source Heart Rate Source Patient Position BP Location FiO2 (%) 07/20/25192807/20/25192807/20/25192807/20/251928 -- Oral Monitor Semi-fowlers Right arm No past medical history on file. No past surgical history on file. Allergy: Feldene [piroxicam] and Zofran [ondansetron hcl] Prior to Admission medications Medication Sig Start Date End Date Taking? Authorizing Provider atorvastatin (LIPITOR) 10 mg tablet Take 1 tablet (10 mg total) by mouth before bedtime. Yes Not InSystem Ref Prov brimonidine-timoloL (COMBIGAN) 0.2-0.5 % ophthalmic solution Administer 1 drop to both eyes in the morning. Yes Not In System Ref Prov empagliflozin (JARDIANCE) 25 mg tablet tablet Take 0.5 tablets (12.5 mg total) by mouth in the morning. Yes Not In System Ref Prov finasteride (PROSCAR) 5 mg tablet Take 1 tablet (5 mg total) by mouth in the morning. Yes Not In System Ref Prov furosemide (LASIX) 40 mg tablet Take 1 tablet (40 mg total) by mouth as needed (for a 3 pound weight gain in 1-2 days). Yes Not In System Ref Prov lanolin-mineral oil-white petrolatum (eucerin) cream Apply 1 Application topically in the morning. Yes Not In System Ref Prov latanoprost (XALATAN) 0.005 % ophthalmic solution Administer 1 drop to both eyes nightly. Yes Not In System Ref Prov levothyroxine (SYNTHROID, LEVOTHROID) 75 MCG tablet Take 1 tablet (75 mcg total) by mouth in the morning. Yes Not In System Ref Prov lidocaine (LIDODERM) 5 % Place 2 patches on the skin daily. Place to back Remove & Discard patch within 12 hours or as directed by MD Yes Not In System Ref Prov lisinopriL (PRINIVIL,ZESTRIL) 2.5 mg tablet Take 1 tablet (2.5 mg total) by mouth in the morning. Yes Not In System Ref Prov metoclopramide (REGLAN) 5 mg tablet Take 1 tablet (5 mg total) by mouth 3 (three) times a day. Yes Not In System Ref Prov metoprolol succinate XL (TOPROL XL) 100 mg 24 hr tablet Take 1 tablet (100 mg total) by mouth in the morning. Yes Not In System Ref Prov pantoprazole (PROTONIX) 40 mg EC tablet Take 1 tablet (40 mg total) by mouth in the morning. Yes Not In System Ref Prov tamsulosin (FLOMAX) 0.4 mg capsule Take 1 capsule (0.4 mg total) by mouth nightly. Yes Not In System Ref Prov warfarin (COUMADIN) 2.5 mg tablet Take 1 tablet (2.5 mg total) by mouth before bedtime. Yes Not In System Ref Prov Social History: reports that he has never smoked. He has never used smokeless tobacco. He reports that he does not drink alcohol and does not use drugs. No family history on file. Review of Systems As per HPI; otherwise reviewed and negative per 10-pt review. Exam BP 92/69 Pulse 107 Temp 37.7 ??C (99.9 ??F) (Oral) Resp 23 SpO2 95% No intake or output data in the 24 hours ending 07/20/252051 General Appearance: Well-developed, well-nourished. Alert, cooperative, no acute cardiac or respiratory distress Head: Normocephalic, atraumatic Eyes: PERRL, conjunctiva/corneas clear, EOMI Nose: Nares normal, no drainage Throat: Lips and tongue normal; oral mucosa appears moist Neck: Supple, trachea midline, no cervical or supraclavicular adenopathy Lungs: normal breath sounds bilaterally; no wheezes, rhonchi, rales, or crackles; respirations unlabored Heart: Regular rate and rhythm, S1 and S2 normal, no murmur Abdomen: Soft, non-tender, bowel sounds active all four quadrants; no rigidity, rebound tenderness,guarding noted Extremities: Extremities normal, atraumatic, no cyanosis or pedal edema Laboratory Data Recent Results (from the past 24 hours) CBC auto differential Collection Time: 07/20/25 7:11 PM Result Value Ref Range WBC 7.3 4 - 11 x10E9/L RBC Count 3.76 (L) 4.1 - 5.7 X10E12/L Hemoglobin 11.9 (L) 13 - 17 g/dL Hematocrit 35.0 (L) 39 - 50 % MCV 93 80 - 100 fL MCH 31.7 27 - 34 pg MCHC 34.0 32 - 36 g/dL RDW 16.0 (H) 11.5 - 15 % Platelet Count 132 (L) 150 - 450 X10E9/L MPV 8.2 7 - 12 fL Neutrophils % 73.8 % Lymphocytes % 11.4 % Monocytes % 13.3 % Eosinophils % 1.3 % Basophils % 0.2 % Neutrophils Absolute (A) 5.4 1.5 - 6.6 10*3/uL Lymphocytes Absolute 0.8 (L) 1.0 - 3.5 10*3/uL Monocytes Absolute 1.0 (H) 0.0 - 0.9 10*3/uL Eosinophils Absolute 0.1 0.0 - 0.4 10*3/uL Basophils Absolute 0.0 0.0 - 0.2 10*3/uL Differential Type AUTOMATED DIFFERENTIAL Basic Metabolic Panel Collection Time: 07/20/25 7:11 PM Result Value Ref Range SODIUM 138 134 - 146 mmol/L POTASSIUM 3.4 (L) 3.5 - 5.0 mmol/L CHLORIDE 106 98 - 109 mmol/L CARBON DIOXIDE 23 22 - 32 mmol/L ANION GAP 9 5 - 15 mmol/L BLOOD UREA NITROGEN 31 (H) 5 - 27 mg/dL CREATININE 1.07 0.60 - 1.30 mg/dL GLUCOSE 100 (H) 65 - 99 mg/dL CALCIUM 8.4 (L) 8.5 - 10.5 mg/dL EGFR Non-Race Dependent 68 >=60 ml/min/1.73sq.m Protime & INR Collection Time: 07/20/25 7:11 PM Result Value Ref Range PROTIME 26.6 (H) 9.8 - 13.2 sec INR 2.3 (H) 0.9 - 1.2 APTT Collection Time: 07/20/25 7:11 PM Result Value Ref Range APTT 35 26 - 37 sec Type and screen Collection Time: 07/20/25 7:11 PM Result Value Ref Range ABO O RH Positive Antibody Screen Negative Extra Tubes Collection Time: 07/20/25 8:03 PM Narrative The following orders were created for panel order Extra Tubes. Procedure Abnormality Status --------- ------ [facility][[id number]] In process Please view results for these tests on the individual orders. Imaging Imaging has been reviewed in detail and can be seen in full via EMR. Imaging: X-ray chest 1 view Result Date: 07/20/2025 Single view chest History: Dyspnea. Pneumonia. Comparison: 06/28/2024 Findings: Stable cardiomediastinal silhouette. Patchy left basilar opacity with trace effusions. Perihilar edema. No pneumothorax.Distention of bowel in the upper abdomen; correlate clinically. Impression: 1. Left basilar opacity, consistent with pneumonia in the appropriate context. Recommend follow-up after treatment. 2. Trace effusions. 3. Gaseous distention of upper abdominal bowel; correlate clinically Finalized by Francisco Cheney MD on 07/20/2025 7:46 PM X-ray chest 1 view Single view chest History: Dyspnea. Pneumonia. Comparison: 06/28/2024 Findings: Stable cardiomediastinal silhouette. Patchy left basilar opacity with trace effusions. Perihilar edema. No pneumothorax. Distention of bowel in the upper abdomen; correlate clinically. Impression: 1. Left basilar opacity, consistent with pneumonia in the appropriate context. Recommend follow-up after treatment. 2. Trace effusions. 3. Gaseous distention of upper abdominal bowel; correlate clinically Finalized by Francisco Cheney MD on 07/20/2025 7:46 PM Electronically signed by: MD Riana RIOJAS M.D. [facility] This note was completed using a voice needle loom operator system. Every effort was made to ensure accuracy. However, inadvertent computerized needle loom operator errors may be present. documented in this encounter Consult Notes * Sanchez Reid MD - 07/23/2025 11:12 AM EDTAssociated Order(s): IP CONSULT TO UROLOGY Images from the original note were not included. Urology Consult Note Patient: Navin Christine Date of : 1940 ATTENDING: Dr. Salguero CHIEF COMPLAINT: Urinary retention HISTORY OF PRESENT ILLNESS: The patient is a 85 y.o. male with past medical history of congestive heart failure, atrial fibrillation (on warfarin), type 2 diabetes, hyperlipidemia, hypertension, and hypothyroidism who presents to the hospital on 07/20 as a transfer from [facility] due to hemoptysis. Per chart review, patient had a recent hospitalization few weeks prior due to hypoxia and respiratory failure. After discharge, patient began to have sudden onset hemoptysis. CTA chest at that time was negative for pulmonary embolism, but concerning for left lower lobe pneumonia. Patient was transferred to [facility] for higher level of care. Upon presentation to [facility], patient was noted to have difficulty urinating. Subsequent catheter insertion resulted in 2 L of urine output. Patient underwent a void trial yesterday, in whichhe required straight catheterization overnight for approximately 500 cc of output. Afterwards, repeat bladder scan showed over 800 cc. Tolliver catheter was reintroduced and over 800 cc of urine output was recorded. Urology was consulted due to urinary retention. Patient takes Flomax at home, however he denies ever seeing a urologist. Patient is a poor historian. He endorses nocturia at home, but denies any dysuria, hematuria, urgency or difficulty voiding. He denies any prior urological surgical history. Patient was evaluated at bedside this morning, vital signs stable and afebrile. He was spitting up and coughing up sputum, with evidence of blood. On room air. Denies any flank pain or abdominal pain. On labs, no leukocytosis and hemoglobin stable 11.1 (11.5). Renal function preserved, creatinine 0.93. UA negative for leukocyte esterase and nitrite. X-ray performed on 07/20 revealed left basilar o pacities, consistent with pneumonia. Patient's old records, notes and chart reviewed and summarized above. Labs Vitals Micro Prior History Patient Vitals for the past 24 hrs: BP Temp Temp src Pulse Resp SpO2 Weight 07/23/25 1106 99/66 36.4 ??C (97.5 ??F) Oral 97 16 97 % -- 07/23/25 0918 108/80 -- -- 99 -- -- -- 07/23/25 0722 101/72 36.5 ??C (97.7 ??F) Oral 94 14 94 % -- 07/23/25 0544 -- -- -- 109 16 92 % -- 07/23/25 0414 100/69 36.5 ??C (97.7 ??F) Oral 101 16 94 % 57.9 kg (127 lb 10.3 oz) 07/22/255 105/69 36.8 ??C (98.3 ??F) Oral 113 16 94 % -- 07/22/258 -- -- -- 106 18 -- -- 07/22/251951 122/84 36.4 ??C (97.6 ??F) Oral 116 18 96 % -- 07/22/25 1533 103/84 36.6 ??C (97.9 ??F) Oral 109 18 94 % -- 07/22/25 1359 -- -- -- 100 19 100 % -- 07/22/25 1347 -- -- -- 92 20 96 % -- 07/22/25 1145 99/70 36.7 ??C (98.1 ??F) Oral 98 16 94 % -- Intake/Output Summary (Last 24 hours) at 07/23/2025 1112 Last data filed at 07/23/2025 0909 Gross per 24 hour Intake 550 ml Output 2690 ml Net -2140 ml No results found for: PSA Results from last 7 days Lab Units 07/23/25 0726 07/23/25 0652 07/22/25 2128 07/22/25 0739 07/22/25 0603 07/22/25 0602 07/21/25 1356 07/21/25 0946 07/21/25 0547 WBC x10E9/L -- 6.2 -- -- 7.9 -- < > -- -- HEMOGLOBIN g/dL -- 11.1* 11.5* < > 11.6* -- < > -- -- MCV fL -- 93 -- -- 95 -- < > -- -- MCHC g/dL -- 33.9 -- -- 33.4 -- < > -- -- PLATELETS X10E9/L -- 141* -- -- 137* -- < > -- -- SODIUM mmol/L -- 137 -- -- -- 137 < > -- -- POTASSIUM mmol/L -- 3.6 -- -- -- 4.3 < > -- 3.3* PHOSPHORUS mg/dL -- -- -- -- -- -- -- -- 3.0 CALCIUM mg/dL -- 8.1* -- -- -- 7.9* < > -- -- ANION GAP mmol/L -- 7 -- -- -- 8 < > -- -- CREATININE mg/dL -- 0.93 -- -- -- 0.89 < > -- -- BUN mg/dL -- 25 -- -- -- 30* < > -- -- BEDSIDE GLUCOSE mg/dL 108* -- -- < > -- -- < > -- -- GLUCOSE mg/dL -- 110* -- -- -- 132* < > -- -- BILIRUBIN URINE -- -- -- -- -- -- -- Negative -- < > = values in this interval not displayed. Microbiology Results Procedure Component Value Units Date/Time Lower resp/sputum culture inc gram stain: Patient acquired [[id number]] (Abnormal) Collected: 07/21/25 1647 Specimen: Sputum from Lung Updated: 07/23/25 1040 CULTURE RESULTS NORMAL RESPIRATORY ASTON GRAM STAIN 10 to 24 White Blood Cells/LPF 10 to 24 Squamous Epithelial Cells/LPF 0 to 1 Ciliated Epithelial Cells/LPF Moderate Gram positive cocci in pairs Few Gram positive cocci in chains Few Gram positive bacilli Past Medical History: 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[facility] [place]) Dehydration Dermatophytosis of foot Dermatophytosis of nail Diabetes mellitus type 2 without retinopathy ([facility] [place]) Diarrhea Dysphagia, oropharyngeal phase Gastroparesis Glaucoma Hemoptysis 07/20/2025 History of small bowel obstruction Hyperlipidemia Hypertension Hypo-osmolality and hyponatremia Hyponatremia Hypotension 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 Medications: Scheduled Meds: atorvastatin, 10 mg, oral, Daily azithromycin, 500 mg, intravenous, Q24H brimonidine, 1 drop, both eyes, Daily AND timolol, 1 drop, both eyes, Daily cefTRIAXone (ROCEPHIN) IV, 1,000 mg, intravenous, Q24H finasteride, 5 mg, oral, Daily insulin lispro, 1-4 Units, subcutaneous, Nightly insulin lispro, 1-5 Units, subcutaneous, TID with meals ipratropium-albuteroL, , , latanoprost, 1 drop, both eyes, Nightly levothyroxine, 75 mcg, oral, Daily metoclopramide, 5 mg, oral, TID metoprolol succinate XL, 100 mg, oral, Daily pantoprazole, 40 mg, oral, Daily sodium chloride, 3 mL, intravenous, Q12H [place]ISON tamsulosin, 0.4 mg, oral, Nightly tranexamic acid, 500 mg, nebulization, Q8H [place] Continuous Infusions: dextrose 5 % in water, 100 mL/hr PRN Meds:. dextrose dextrose 5 % in water dextrose 50 % in water (D50W) glucagon (human recombinant) ipratropium-albuteroL magnesium sulfate magnesium sulfate potassium chloride OR potassium chloride OR potassium chloride IV (Adult) sodium phosphate IV OR sodium phosphate IV - central line OR sod phos di, mono-K phos mono sodium chloride sodium chloride Allergies: Feldene [piroxicam] and Zofran [ondansetron hcl] Social History: Social History Socioeconomic History Marital status: Spouse name: Not on file Number of children: Not on file Years of education: Not on file Highest education level: Not on file Occupational History Not on file Tobacco Use Smoking status: Never Smokeless tobacco: Never Substance and Sexual Activity Alcohol use: Never Drug use: Never Sexual activity: Not on file Other Topics Concern Not on file Social History Narrative Not on file Social Drivers of Health Financial Resource Strain: Not on file Food Insecurity: No Food Insecurity (07/20/2025) Hunger Screening Food Insecurity - Worry: Never True Food Insecurity - Inability: Never True Transportation Needs: No Transportation Needs (07/20/2025) PRAPARE - Transportation Lack of Transportation (Medical): No Lack of Transportation (Non-Medical): No Physical Activity: Not on file Stress: Not on file Social Connections: Not on file Interpersonal Safety: Not At Risk (07/20/2025) Humiliation, Afraid, Rape, and Kick questionnaire Fear of Current or Ex-Partner: No Emotionally Abused: No Physically Abused: No Sexually Abused: No Housing Instability: Low Risk (07/20/2025) Housing Instability Housing Instability: No Family History: Family History Problem Relation Age of Onset No Known Problems Mother No Known Problems Father REVIEW OF SYSTEMS: Review of Systems Constitutional: Negative for fever, chills and activity change. HENT: Negative. Eyes: Negative. Respiratory: Negative. Cardiovascular: Negative. Gastrointestinal: Negative for nausea, vomiting, abdominal pain, diarrhea, constipation and abdominal distention. Genitourinary: Positive for difficulty urinating. Negative for dysuria, urgency, hematuria and flank pain. Musculoskeletal: Negative. Negative for back pain. Skin: Negative. Neurological: Negative. Hematological: Negative. Psychiatric/Behavioral: Negative. Physical Exam: This a 85 y.o. patient Patient Vitals for the past 24 hrs: BP Temp Temp src Pulse Resp SpO2 Weight 07/23/25 1106 99/66 36.4 ??C (97.5 ??F) Oral 97 16 97 % -- 07/23/25 0918 108/80 -- -- 99 -- -- -- 07/23/25 0722 101/72 36.5 ??C (97.7 ??F) Oral 94 14 94 % -- 07/23/25 0544 -- -- -- 109 16 92 % -- 07/23/25 0414 100/69 36.5 ??C (97.7 ??F) Oral 101 16 94 % 57.9 kg (127 lb 10.3 oz) 07/22/25 2345 105/69 36.8 ??C (98.3 ??F) Oral 113 16 94 % -- 07/22/25 2158 -- -- -- 106 18 -- -- 07/22/25 1952 122/84 36.4 ??C (97.6 ??F) Oral 116 18 96 % -- 07/22/25 1533 103/84 36.6 ??C (97.9 ??F) Oral 109 18 94 % -- 07/22/25 1359 -- -- -- 100 19 100 % -- 07/22/25 1347 -- -- -- 92 20 96 % -- 07/22/25 1145 99/70 36.7 ??C (98.1 ??F) Oral 98 16 94 % -- Physical Exam Constitutional: NAD HEENT: NCAT, PERRLA, EOMI Card: RRR, extremities warm well perfused Pulm: no SOB, no increased WOB. Blood in the nostrils Abdominal: no tenderness, distension, pain. exam: no suprapubic tenderness, no flank pain. Tolliver catheter in place, clear yellow urine Urinalysis: Lab Results Component Value Date COLOR Yellow 07/21/2025 TURBIDITY Clear 07/21/2025 SPECIFICGRA 1.020 07/21/2025 NITRITE Negative 07/21/2025 PHURINE 6.0 07/21/2025 LEUKOCYTE Negative 07/21/2025 PROTEIN 30 mg/dL (A) 07/21/2025 KETONES Negative 07/21/2025 UROBILINOGEN <1.1 eu/dL 07/21/2025 BLOODHGB Large (A) 07/21/2025 Lab Results Component Value Date SPECIFICGRA 1.020 07/21/2025 LEUKOCYTE Negative 07/21/2025 GLU 108 (H) 07/23/2025 UROBILINOGEN <1.1 eu/dL 07/21/2025 Imaging Results: X-ray chest 1 view Result Date: 07/20/2025 Single view chest History: Dyspnea. Pneumonia. Comparison: 06/28/2024 Findings: Stable cardiomediastinal silhouette. Patchy left basilar opacity with trace effusions. Perihilar edema. No pneumothorax.Distention of bowel in the upper abdomen; correlate clinically. Impression: 1. Left basilar opacity, consistent with pneumonia in the appropriate context. Recommend follow-up after treatment. 2. Trace effusions. 3. Gaseous distention of upper abdominal bowel; correlate clinically Finalized by Francisco Cheney MD on 07/20/2025 7:46 PM Assessment and Plan Impression: Navin Christine is a 85 y.o. male with past medical history of congestive heart failure, atrial fibrillation (on warfarin), and type 2 diabetes who presents to [facility] as a transfer from [facility] due to hemoptysis in the setting of left lobe pneumonia. Patient was noted to be in urinary retention and Tolliver catheter was placed for 2 L of output. He subsequently faileda void trial had catheter reintroduced for over 800 cc of output. Active Problem List Urinary retention Plan: No acute urological surgical intervention indicated Maintain tolliver catheter for 1 weeks Monitor creatinine and urine output Continue flomax Rest of medical management per primary and other consultants Sanchez Reid MD Urology Resident PGY-1 11:12 AM 07/23/2025 Cosigned by Efren Salguero Jr., MD at 07/23/2025 9:04 PM EDT Associated attestation - Efren Salguero Jr., MD - 07/23/2025 9:04 PM EDT Attending Attestation: I saw the patient. I participated and was physically present during the critical/lopez portions of the service. I was directly involved in the management and treatment plan of the patient. I reviewed the resident's note. Additional Notes/Findings: I reviewed history and physical exam as well as internal medicine and pulmonary provider notes. Also discussed patient's care at length with his daughter by telephone. She relates [facility] and Flomax [facility]. has never seen a urologist she thinks. She notes he has very poor vision and would not be therefore able to do intermittent self catheterization. Unsteady on his feet. Penis circumcised without mass lesion or discharge. Testicles descended bilaterally without mass or tenderness. Prostate 40 g nontender nonnodular. Clear elie urine Tolliver catheter. Labs as above. Large blood on urine dip likely secondary to multiple catheterizations. Impressions: 1. [facility] patient, poor historian, [facility] resident [facility] the [facility] with finasteride 5 mg and Flomax 0.4 mg nightly benign prostatic hyperplasia admitted [facility] 07/20/2025 hemoptysis and pneumonia with 2 L urinary retention, creatinine 0.93 with failed voiding trials; daughter Rico [phone] 2. marginal ambulatory status 3. Vision loss precluding likely successive intermittent self catheterization, declined by patient/family 07/23/2025 4. By electronic record stage IIIB chronic kidney disease 5. Atrial fibrillation on Coumadin Recommendations: 1. Retained indwelling Tolliver catheter at least 1-4 weeks to allow attempted detrusor recovery. As noted above, patient really is not a candidate for intermittent self catheterization 2. continue Flomax 0.4 mg nightly and finasteride 5 mg daily now and at discharge 3. Check retroperitoneal ultrasound in view of dramatic urinary retention 4. Treatment of non urologic issues with other services 5. Discussed today with his daughter follow up. As he lives in [facility], I reviewed there is aUrology group including Dr. David Ruano does cover that area, and it maybe much more efficient for them to get his care there. He also certainly could get his care through the [facility], where he does get most of his care, and she reviewed insurance commonly from the [place] may determine where hiscare we will need to be provided. I reviewed we have offices in [place] and [place] as well as [place]. She will consider those issues. We will follow with you. Thank you very much. I appreciate being asked to help with this patient's care. Efren Salguero Jr., M.D. [facility] [phone] * Rickey Galeano MD - 07/21/2025 7:47 AM EDTAssociated Order(s): IP CONSULT TO PULMONOLOGY Images from the original note were not included. [facility] Consult note Patient - Navin Christine Age - 85 [facility] 1940 [id number] Date of Admission - 07/20/2025 6:18 PM Referring physician: Ref Prov,Not In System Reason for Consultation Pna, hemoptysis HPI Navin Christine is a 85 y.o. male who presented to [facility] with hemoptysis. CTA chest was performed with concerns of left lower lobe pneumonia. He was transferred to [facility] for pulmonary consult. Chest xray at [facility] yesterday with left basilar opacity, consistent with pneumonia, trace effusions. He is on coumadin for atrial fibrillation. INR is 2.3. Last dose of coumadin was Friday evening. He denies feeling short of breath, cough is productive reports blood tinged, unsure if there are clots. He has been coughing since Friday night which has been persistent. Denies cough, no fever, chills, denies ill contacts. He is a life long non smoker, worked for the [employer]. Denies history of pulmonary disease, does not use home inhalers or supplemental oxygen. He is presently on 2L via NC SPO2 97% at rest, weaned to1L at bedside. Review of systems All 11 systems have been reviewed and are negative except as mentioned in History of Present Illness. 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[facility]) Dehydration Dermatophytosis of foot Dermatophytosis of nail Diabetes mellitus type 2 without retinopathy ([facility]) Diarrhea Dysphagia, oropharyngeal phase Gastroparesis Glaucoma Hemoptysis 07/20/2025 History of small bowel obstruction Hyperlipidemia Hypertension Hypo-osmolality and hyponatremia Hyponatremia Hypotension 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 Allergies: Feldene [piroxicam] and Zofran [ondansetron hcl] Prior to Admission medications Medication Sig Start Date End Date Taking? Authorizing Provider atorvastatin (LIPITOR) 10 mg tablet Take 1 tablet (10 mg total) by mouth before bedtime. Yes Not InSystem Ref Prov brimonidine-timoloL (COMBIGAN) 0.2-0.5 % ophthalmic solution Administer 1 drop to both eyes in the morning. Yes Not In System Ref Prov empagliflozin (JARDIANCE) 25 mg tablet tablet Take 0.5 tablets (12.5 mg total) by mouth in the morning. Yes Not In System Ref Prov finasteride (PROSCAR) 5 mg tablet Take 1 tablet (5 mg total) by mouth in the morning. Yes Not In System Ref Prov furosemide (LASIX) 40 mg tablet Take 1 tablet (40 mg total) by mouth as needed (for a 3 pound weight gain in 1-2 days). Yes Not In System Ref Prov lanolin-mineral oil-white petrolatum (eucerin) cream Apply 1 Application topically in the morning. Yes Not In System Ref Prov latanoprost (XALATAN) 0.005 % ophthalmic solution Administer 1 drop to both eyes nightly. Yes Not In System Ref Prov levothyroxine (SYNTHROID, LEVOTHROID) 75 MCG tablet Take 1 tablet (75 mcg total) by mouth in the morning. Yes Not In System Ref Prov lidocaine (LIDODERM) 5 % Place 2 patches on the skin daily. Place to back Remove & Discard patch within 12 hours or as directed by MD Yes Not In System Ref Prov lisinopriL (PRINIVIL,ZESTRIL) 2.5 mg tablet Take 1 tablet (2.5 mg total) by mouth in the morning. Yes Not In System Ref Prov metoclopramide (REGLAN) 5 mg tablet Take 1 tablet (5 mg total) by mouth 3 (three) times a day. Yes Not In System Ref Prov metoprolol succinate XL (TOPROL XL) 100 mg 24 hr tablet Take 1 tablet (100 mg total) by mouth in the morning. Yes Not In System Ref Prov pantoprazole (PROTONIX) 40 mg EC tablet Take 1 tablet (40 mg total) by mouth in the morning. Yes Not In System Ref Prov tamsulosin (FLOMAX) 0.4 mg capsule Take 1 capsule (0.4 mg total) by mouth nightly. Yes Not In System Ref Prov warfarin (COUMADIN) 2.5 mg tablet Take 1 tablet (2.5 mg total) by mouth before bedtime. Yes Not In System Ref Prov Social history: reports that he has never smoked. He has never used smokeless tobacco. He reports that he does not drink alcohol and does not use drugs. Family History Problem Relation Age of Onset No Known Problems Mother No Known Problems Father Exam VITALS BP 97/66 Pulse 107 Temp 36.4 ??C (97.5 ??F) (Oral) Resp 19 Ht 172.7 cm (5' 8 ) Wt 65.9 kg(145 lb 4.5 oz) SpO2 98% BMI 22.09 kg/m?? Physical Exam Constitutional He is oriented to person, place, and time. Non-toxic appearance. No distress. Nasal cannula in place. Nursing note and vitals reviewed. Cardiovascular: Normal rate and regular rhythm. Pulmonary/Chest: Effort normal. No respiratory distress. Congested cough On 1L via NC Neurological He is alert and oriented to person, place, and time. Skin: Skin is warm and dry. Psychiatric: He has a normal mood and affect. His behavior is normal. Genitourinary Genitourinary Comments: Tolliver Lab results Results from last 7 days Lab Units 07/20/25 191 WBC x10E9/L 7.3 HEMOGLOBIN g/dL 11.9* HEMATOCRIT % 35.0* PLATELETS X10E9/L 132* Results from last 7 days Lab Units 07/21/25 0547 07/20/25 1911 POTASSIUM mmol/L 3.3* 3.4* CHLORIDE mmol/L -- 106 CO2 mmol/L -- 23 BUN mg/dL -- 31* CREATININE mg/dL -- 1.07 CALCIUM mg/dL -- 8.4* Radiology/PFT CTA chest ([facility]) CXR 07/20/2025 Impression: 1. Left basilar opacity, consistent with pneumonia in the appropriate context. Recommend follow-up after treatment. 2. Trace effusions. 3. Gaseous distention of upper abdominal bowel; correlate clinically Assessment Probable left lower lobe pneumonia Submassive hemoptysis Atrial fibrillation, on home coumadin History of congestive heart failure Non smoker Diabetes mellitus type 2 Plan Continue broad spectrum antibiotics Check sputum culture (cup provided) and procalcitonin Monitor/quantify hemoptysis. Discussed with RN and patient. Cup provided. Hold coumadin Will start inhaled TXA Continue home diuresis Currently tolerating room air, maintain SPO2>90% Will discuss with pulmonary attending. Thank you for the opportunity to participate in the care of your patient. GARY Aguilar [facility] Epic chat preferred Available via patient touch at [facility] Pulmonary office [phone] GARY Randhawa 07/21/25 5342 I, Rickey Galeano MD, have personally performed a face to face evaluation of this patient independently of the DUTCH. I have reviewed the assessment findings and plan as documented in the note and made all necessary revisions. I have reviewed lab and imaging data independently. CT chest reviewed and it is likely consistent with left lower lobe pneumonia Hold anticoagulation Quantify hemoptysis Closely monitor respiratory status Start nebulized tranexamic acid Continue empiric antibiotics Repeat CT chest after 1 month Rickey Galeano MD [facility] 11:31 AM 07/21/25 This note was created with the assistance of a speech-recognition program. Although the intention is to generate a document that actually reflects the content of the visit, no guarantees can be provided that every mistake has been identified and corrected by editing. documented in this encounter Miscellaneous Notes * Discharge Planning Note - Joslyn Conn - 07/22/2025 2:49 PM EDT DISCHARGE PLANNING NOTE Referral sent to the [place] in [place] to * PT/OT/[employer]RO[employer] HUMAN RESOURCES ASSISTANT - GARRETT Olvera - 07/22/2025 11:12 AM EDT Occupational Therapy Evaluation Discharge Recommendations for Safe Patient Transition OT Discharge Disposition Recommendation: Home OT Home Recommendations: Intermittent caregiver support for: (IADLs/high level ADL prn) OT Therapy Recommendations: Home Occupational Therapy 6 Clicks: Daily Activity Putting on and taking off regular lower body clothing?: A little Bathing (including washing, rinsing, drying)?: A little Toileting, which includes using toilet, bedpan or urinal?: A little Putting on and taking off regular upper body clothing?: A little Taking care of personal grooming such as brushing teeth?: A little Eating meals?: None Scoring Daily Activity Raw Score: 19 CMS G Code Modifier: CK Therapy Plan Need for skilled Occupational Therapy to address deficits in ADL independence and functional mobility due to a status decline resulting from hospitalization. Pt is 85 y/o male admitted 07/19 to [place] coughing up blood. Cta chest- opacity LLL new compared to prior scans. [facility] for pulm consult. CXR- opacity consistent with PNA 07/21 coughing up blood. Sputum cx. 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[facility]) Dehydration Dermatophytosis of foot Dermatophytosis of nail Diabetes mellitus type 2 without retinopathy ([facility]) Diarrhea Dysphagia, oropharyngeal phase Gastroparesis Glaucoma Hemoptysis 07/20/2025 History of small bowel obstruction Hyperlipidemia Hypertension Hypo-osmolality and hyponatremia Hyponatremia Hypotension 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 OT Treatment/Interventions: ADL retraining, Functional transfer training, UE strengthening/ROM, Endurance training, Equipment eval/education, Patient/family training, Balance, Bed mobility, Compensatory technique education, Functional activities OT Frequency: 4-5days/week OT Duration: until goals met Assessment Patient Assessment Therapy Problem List: Decreased balance, Decreased ADL status, Decreased endurance, Decreased high-level ADLs, Decreased safe judgement during ADL, Decreased mobility, Decreased self-care trans, Decreased LE strength, Decreased UE strength Patient Response to Treatment: Tolerated evaluation without adverse reaction Mood/Affect: Appropriate for circumstances Rehab Prognosis: Good, With continued OT status post acute discharge Visit RN Communication: Yes Medical Record Reviewed: Yes OT Type of Visit: Evaluation Precautions Activity: early mobility-pass Equipment: gait belt, RW, tolliver Telemetry/Counter Stitcher: No Oxygen Used: room air Other: fall risk, ROSEBUD, blind L eye Pain Assessment Pain Assessment: No/denies pain Home Living Type of Home: House Home Layout: Two level, Performs ADLs on one level, Able to live on main level with bedroom/bathroom, Laundry in basement Stairs to Enter: 2 Hand Rails: Bilateral Stairs in Home: stays on main Bathroom Shower/Tub: Walk-in shower Bathroom Toilet: Raised (near support) Bathroom Equipment: Shower chair, Grab bars in shower Home Equipment: 4 Wheeled walker Other : no recent falls Prior Function Lives With: Alone Receives Help From: Family (comfort keepers aide- 9hrs/wk, son and dtr local and are both working) Level of Mobility: Independent with ADLs and functional transfers or gait (uses 4WW most the time) Homemaking Assistance: Needs assistance Other: Aides complete laundry as it is in the basement, heavy cleaning. Pt no longer drives. Aide manages his meds Vocational: Retired ([employer]) ADL / IADL Hand Dominance: Right Eating Assistance: Independent Grooming Assistance: Setup, Contact guard assist Grooming Deficit: Oral hygiene, Wash/dry face, Wash/dry hands, Standing with assistive device, Increased time to complete, Supervision/safety, Verbal cueing Bathing/Showering Assistance: Min assist Toilet/Commode Assistance: Contact guard assist Toilet/Commode Deficit: Grab bar use, Increased time to complete, Supervison/safety, Verbal cueing UE Dressing Assistance: Setup, Standby assist LE Dressing Assistance: Contact guard assist Footwear Assistance: Min assist Other: Pt amb to bathroom and completed toileting; requiring min cues for processing toilet transfer and for avoiding straining during BM. Completed pericare seated with inc time/effort and SBA. Pt stood at sink x 3 mins for grooming tasks with assist needed to open come containers and cues for body mechanics/bringing RW up to sink Home Management - IADL Other: Pt amb to bathroom and completed toileting; requiring min cues for processing toilet transfer and for avoiding straining during BM. Completed pericare seated with inc time/effort and SBA. Pt stood at sink x 3 mins for grooming tasks with assist needed to open come containers and cues for body mechanics/bringing RW up to sink Hearing / Speech / Vision Hearing: Hard of hearing/hearing concerns, Bilateral hearing aid (reports his hearing aids don't work) Speech: Within Functional Limits Current Vision: Wears glasses all the time Cognition Overall Cognitive Status: Exceptions to Within Functional Limits Attention Span: Attends with cues to redirect Memory: Decreased recall of precautions Following Commands: Follows one step commands with repetition, Follows one step commands consistently Safety Judgment: Decreased awareness of need for safety, Decreased awareness of need for assistance Awareness of Errors: Assistance required to identify errors made, Assistance required to correct errors made Insight of Deficits: Decreased awareness of deficits Problem Solving: Assistance required to identify errors made Other: Frequent cues to attend to safety, pt frequently abandons RW and forgets about his tolliver. High fall risk. Responds I know to any education Sensation Overall Sensation Status: Within Functional Limits Bed Mobility Supine to Sit: Stand by assist (HOB elevated and use of rail, inc time/effort) Sit to Supine: (in chair at exit with needs in reach) Transfers Sit to Stand: Standby assist, Contact guard assist Stand to Sit: Standby assist, Contact guard assist Toilet Transfers: Standby assist, Contact guard assist Other: Cues for safe hand placement and maintaining use of RW up to sitting surface with poor follow through. Gait Gait Assistance: Contact guard assist Assistive Device: Rolling walker Gait Distance: 220' Limiting Factors to Gait: Weakness, Fatigue, Decreased safety Other: Pt amb at slowed, steady pace through hallways without missteps or LOB. When navigating obstacles or using RW in smaller spaces such as the bathroom however pt demos poor safety awareness despite frequent vc's. Prematurely abandoning RW and needing to furniture surf Balance Balance Evaluation: Exceptions to Functional Limits Sitting Balance: Static: Good Sitting Balance: Dynamic: Good (-) Standing Balance: Static: Fair (+) Standing Balance: Dynamic: Fair Other: Minor anterior/posterior sway when attempting to stand unsupported at sink for ADLs; CGA needed for safety. RUE Assessment: (gross 4-/5) LUE Assessment: (gross 4-/5) Activity Tolerance Endurance: Tolerates >30 minutes activity with rest breaks Other: Rest breaks prn d/t fatigue/weakness. Overall tolerated well. Educated on importance of regular ambulation into [place] with staff to facilitate return to PLOF Plan Occupational Therapy Care Plan Occupational Therapy Care Plan (Active) Template: OT - Occupational Therapy Problem: Activity Tolerance Dates: Start: 07/22/25 Disciplines: OT Goal: Tolerate > 30 minutes of activity WITHOUT rest breaks Dates: Start: 07/22/25 Expected End: 08/12/25 Description: Goal Description: Disciplines: OT Problem: Bed Mobility Dates: Start: 07/22/25 Disciplines: OT Goal: Patient will perform bed mobility Independently Dates: Start: 07/22/25 Expected End: 08/12/25 Description: Goal Description: Disciplines: OT Problem: Cognition Dates: Start: 07/22/25 Disciplines: OT Goal: Patient's goal is: (specify details) Dates: Start: 07/22/25 Expected End: 08/12/25 Description: Pt will demo improved safety awareness during tx sessions as evidenced by lack of needfor vc's for safety to increase independence in all functional activity. Disciplines: OT Problem: Functional Mobility Dates: Start: 07/22/25 Disciplines: OT Goal: Patient will perform functional mobility with Modified Kuna Dates: Start: 07/22/25 Expected End: 08/12/25 Description: Goal Description: Disciplines: OT Problem: Other (Customize) Dates: Start: 07/22/25 Disciplines: OT Goal: Improve Dates: Start: 07/22/25 Expected End: 08/12/25 Description: Pt will demo MOD I with all ADLs using AE prn to facilitate return to PLOF. Disciplines: OT Problem: Standing Balance Dates: Start: 07/22/25 Disciplines: OT Goal: Improve balance to good Dates: Start: 07/22/25 Expected End: 08/12/25 Description: Static Dynamic Disciplines: OT Problem: Strength Dates: Start: 07/22/25 Disciplines: OT Goal: Improve strength Dates: Start: 07/22/25 Expected End: 08/12/25 Description: Pt will demo good understanding of BUE strengthening HEP to increase endurance for functional transfers, mobility, and ADL with RW. Disciplines: OT Problem: Toilet Transfers Dates: Start: 07/22/25 Disciplines: OT Goal: Patient will perform toilet transfers with Modified Kuna Dates: Start: 07/22/25 Expected End: 08/12/25 Description: Goal Description: Disciplines: OT Problem: Transfers Dates: Start: 07/22/25 Disciplines: OT Goal: Patient will perform transfers with Modified Kuna Dates: Start: 07/22/25 Expected End: 08/12/25 Description: Goal Description: Disciplines: OT Occupational Therapy Care Plan (Resolved) There are no resolved problems. Principal Problem: Hemoptysis * Discharge Planning Note - CAMDEN Walker - 07/22/2025 10:23 AM EDT Ongoing Assessment for Discharge Needs Reviewed discharge milestones and patient needs related to discharge plan. Current estimated discharge date of Jul 23, 2025 has been reviewed by treatment team. Ongoing Assessment for Discharge Needs Flowsheet Row Most Recent Value Referral To Community Referrals / Resources Provided Denies needs Services Requested Patient expects to be discharged to: home Does the patient wish to have family/friend/caregiver involved in their discharge planning? Yes Does the patient plan to return home to a community setting? Yes Discharge Disposition [facility] Facility/Service Name Scottie Rayo [facility] Facility/Service Does the patient need discharge transportation arranged? No Patient choice offered Yes List Provided Yes [facility] List Provided Home Care Patient discussed today in daily transition rounds. Current Discharge Plan: Home with [facility] andprivate duty caregivers with [employer] 9 hours weekly with [place]. Current Barriers: SUNNI, PT/OT shelby, Q8 H&H, sharee. - CAMDEN WALKER 07/22/25 10:25 AM SW met with patient and reviewed discharge plan. Patient plan remains to return home with [facility] at discharge. - CAMDEN WALKER 07/22/25 11:37 AM * PT/OT/PAYROLL HUMAN RESOURCES ASSISTANT - Randal Hodges PT - 07/22/2025 9:58 AM EDT Physical Therapy Evaluation Discharge Recommendations for Safe Patient Transition PT Discharge Disposition Recommendation: Home PT Home Recommendations: Intermittent caregiver support for: PT Therapy Recommendations: Home Physical Therapy 6 Clicks: Basic Mobility Turning from your back to your side while in a flat bed without using bed rails?: A little Moving from lying on your back to sitting on side of flat bed without using bed rails?: A little Moving to and from bed to a chair (including w/c)?: A little Standing up from a chair using your arms (e.g. w/c or bedside chair)?: A little To walk in hospital room?: A little Climbing 3-5 steps with a railing?: A little Scoring 6 Clicks: Basic Mobility Raw Score: 18 CMS G Code Modifier: CK Therapy Plan Need for skilled Physical Therapy to address deficits in functional mobility due to a status decline resulting from prolonged hospital stay related to hemoptysis. PT Treatment/Interventions: Functional transfer training, LE strengthening/ROM, Patient/family training, Stair training, Functional activities, Gait training, Balance, Bed mobility, Equipment eval/education, Endurance training PT Frequency: 4-5days/week PT Duration: LOS Assessment Patient Assessment Therapy Problem List: Decreased balance, Decreased endurance, Decreased mobility, Decreased safe judgement during ADL, Decreased LE strength Patient Response to Treatment: Tolerated evaluation without adverse reaction Mood/Affect: Appropriate for circumstances Rehab Prognosis: Good, With continued PT status post acute discharge Visit RN Communication: Yes Medical Record Reviewed: Yes PT Type of Visit: Evaluation Pt initially presented to [facility] on 07/19/2025 coughing up blood. CTA chest- opacity LLL new compared to prior scans. TTH for pulm consult. CXR- opacity consistent with PNA 07/21/2025 coughing up blood. Sputum cx. Hgb 07/22/2025:11.6 Past Medical History: Diagnosis Date Adhesion of intestine Atrial fibrillation ([facility]) Cardiomyopathy ([facility]) Chronic kidney disease, stage 3b ([facility]) Chronic systolic (congestive) heart failure ([facility]) Colostomy status ([facility]) Dehydration Dermatophytosis of foot Dermatophytosis of nail Diabetes mellitus type 2 without retinopathy ([facility]) Diarrhea Dysphagia, oropharyngeal phase Gastroparesis Glaucoma Hemoptysis 07/20/2025 History of small bowel obstruction Hyperlipidemia Hypertension Hypo-osmolality and hyponatremia Hyponatremia Hypotension 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 Precautions Activity: early mobility guidelines 07/20/2025, pass/supervised/oversight/walker per safety screen 07/21/2025 Equipment: gait belt, RW, tolliver catheter Telemetry/Counter Stitcher: No Other: fall precautions, decreased safety awareness, h/o afib, left eye blindness Pain Assessment Pain Assessment: No/denies pain Home Living Type of Home: House Home Layout: Two level, Performs ADLs on one level, Able to live on main level with bedroom/bathroom, Laundry in basement, Stairs to enter with rails Stairs to Enter: 2 Hand Rails: Bilateral Stairs in Home: stays on main floor, laundry located in basement but is completed by aide Bathroom Shower/Tub: Walk-in shower Bathroom Toilet: Raised Bathroom Equipment: Shower chair, Grab bars in shower Bathroom Accessibility: Accessible Home Equipment: 4 Wheeled walker Other : ambulating with 4WW most of the time, denies recent falls Prior Function Lives With: Alone Receives Help From: Family (pt has [employer] 9 hours/week, son and daughter are local [employer]) Level of Mobility: Independent with ADLs and functional transfers or gait Homemaking Assistance: Needs assistance (majority of homemaking tasks completed by aide) Vocational: Retired Hearing / Speech / Vision Hearing: Hard of hearing/hearing concerns (very [place]) Speech: Within Functional Limits Current Vision: Wears glasses all the time Cognition Overall Cognitive Status: Exceptions to Within Functional Limits Arousal/Alertness: Appropriate responses to stimuli Attention Span: Attends with cues to redirect, Difficulty attending to directions Memory: Decreased recall of precautions Following Commands: Follows one step commands with repetition, Follows one step commands consistently Safety Judgment: Decreased awareness of need for safety, Decreased awareness of need for assistance Awareness of Errors: Assistance required to identify errors made, Assistance required to correct errors made Insight of Deficits: Decreased awareness of deficits Problem Solving: Assistance required to identify errors made Bed Mobility Supine to Sit: Stand by assist, Left Sit to Supine: (NT, pt left sitting up in chair with call light in reach) Other: HOB elevated with use of bedrail, verbal cues for technique, increased time and effort needed to complete Transfers Sit to Stand: Standby assist, Contact guard assist Stand to Sit: Standby assist, Contact guard assist Bed to Chair: Standby assist, Contact guard assist Toilet Transfers: Standby assist, Contact guard assist Other: slightly unsteady, decreased safety awareness, decreased walker safety, verbal cues for safetechnique including proper hand placement, RW support Gait Base of Support: Narrow Pattern: Decreased johanna (slightly unsteady, decreased safety awareness, decreased walker safety,decreased step length) Assistive Device: Rolling walker Gait Distance: 220 feet Limiting Factors to Gait: Weakness, Fatigue, Decreased safety Balance Standing Balance: Static: Fair (fair+) Standing Balance: Dynamic: Fair Other: standing balance with UE support RLE Assessment: (generalized weakness throughout) LLE Assessment: (generalized weakness throughout) Activity Tolerance Endurance: Tolerates >30 minutes activity with rest breaks Plan Physical Therapy Care Plan Physical Therapy Care Plan (Active) Template: PT - Physical Therapy Problem: Bed Mobility Dates: Start: 07/22/25 Disciplines: PT Goal: Patient will perform bed mobility with Modified Kuna Dates: Start: 07/22/25 Expected End: 08/20/25 Description: Goal Description: Disciplines: PT Problem: Gait Dates: Start: 07/22/25 Disciplines: PT Goal: Patient will perform gait with Supervision Dates: Start: 07/22/25 Expected End: 08/20/25 Description: With__RW__,_350___feet Goal Description: Disciplines: PT Problem: Stairs/Curb Dates: Start: 07/22/25 Disciplines: PT Goal: Patient will perform stairs/curb with Stand By Assist Dates: Start: 07/22/25 Expected End: 08/20/25 Description: ___2__steps,___bilat__hand rails Goal Description: Disciplines: PT Problem: Standing Balance Dates: Start: 07/22/25 Disciplines: PT Goal: Improve balance to good Dates: Start: 07/22/25 Expected End: 08/20/25 Description: Increase standing balance to good- to decrease fall risk Disciplines: PT Problem: Strength Dates: Start: 07/22/25 Disciplines: PT Goal: Improve strength Dates: Start: 07/22/25 Expected End: 08/20/25 Description: Tolerate 20 reps ther ex Of extremity/ location:BLE To facilitate:improved functional mobility Disciplines: PT Problem: Transfers Dates: Start: 07/22/25 Disciplines: PT Goal: Patient will perform transfers with Supervision Dates: Start: 07/22/25 Expected End: 08/20/25 Description: Goal Description: Disciplines: PT Physical Therapy Care Plan (Resolved) There are no resolved problems. Principal Problem: Hemoptysis * Plan of Care - Indy Montana - 07/21/2025 11:12 PM EDT Problem: Pain Goal: Patient goal is pain score less than 4, able to rest, and participant in treatment plan as appropriate Description: INTERVENTIONS: 1. Encourage patient or legal construction representative to report early pain and ask for pain medicine when needed 2. Assess pain using appropriate pain scale and include the scale used when documenting 3. Administer analgesics based on type and severity of pain and evaluate response within appropriate time frame 4. Implement non-pharmacological measures as appropriate and evaluate response 5. Consider cultural and social influences on pain and pain management 6. Notify LIP if interventions ineffective or patient reports new pain 7. Monitor vital signs including pulse ox, end-tidal CO2 based on pain intervention 8. Reassess pain per policy 9. Teach patient or legal construction representative interventions for comforting Outcome: Progressing Note: Evaluation of progress towards goal: Assess pain using appropriate pain scale and include thescale used when documenting. Administer analgesics based on type and severity of pain and evaluate response within appropriate time frame Problem: Safety Goal: Patient will be injury free during hospitalization Description: INTERVENTIONS: 1. Assess patient's risk for falls and implement fall prevention plan of care per policy 2. Provide and maintain a safe environment 3. Proper use of double Identifiers 4. Medication administration using the 5 rights 5. Hand hygiene 6. Specimens are labeled at the bedside 7. Instruct patient/ patient construction representative about use of safety devices 8. Include patient/ patient construction representative in decisions related to safety Outcome: Progressing Note: Evaluation of progress towards goal: Patient will be injury free during hospitalization. Problem: Infection Goal: Absence of infection during hospitalization Description: INTERVENTIONS 1. Assess and monitor for signs and symptoms of infection. 2. Monitor lab/diagnostic results. 3. Monitor all insertion sites i.e., indwelling lines, tubes and drains. 4. Monitor endotracheal (as able) and nasal secretions for changes in amount and color. 5. Administer medications as ordered. 6. Instruct and encourage patient and family to use good hand hygiene technique. 7. Identify and instruct patient/patient construction representative in use of appropriate isolation precautionsfor identified infection/symptoms. 8. Provide and discuss with patient/patient construction representative on educational MDRO sheet. 9. Encourage and monitor nutritional status daily and consult international manager if indicated. 10. Implement neutropenic guidelines as needed. Outcome: Progressing Note: Evaluation of progress towards goal: Assess and monitor for signs and symptoms of infection. Monitor lab/diagnostic results. Monitor all insertion sites i.e., indwelling lines, tubes and drains Problem: Knowledge Deficit Goal: Patient/patient construction representative demonstrates understanding of disease process, treatment plan,medications, and discharge instructions Description: INTERVENTIONS 1. Complete learning assessment and assess knowledge base 2. Provide teaching at level of understanding 3. Provide teaching via preferred learning method(s) Outcome: Progressing Note: Evaluation of progress towards goal: Provide teaching at level of understanding. Problem: Discharge Planning Goal: Discharge to post-acute care, other facility, or home with appropriate resources Description: Patient's goal is: INTERVENTIONS 1. Conduct assessment to determine patient/family and health care team treatment goals, and need for post-acute services based on payer coverage, community resources, and patient preferences, and barriers to discharge 2. Coordinate with Social work, Care Navigation, and Utilization Review to arrange appropriate level of services according to patient's needs based on patient preference and payer coverage in collaboration with the physician and health care team 3. Address psychosocial, clinical, and financial barriers to discharge as identified in assessment in conjunction with the patient/family and health care team 4. Consult appropriate ancillary services (i.e.. PT/OT/ST, etc) as needed 5. Communicate with and update the patient/family, physician, and health care team regarding progress on the discharge plan 6. Identify discharge learning needs (meds, wound care, etc). 7. Arrange for needed discharge transportation as appropriate Outcome: Progressing Note: Evaluation of progress towards goal: Conduct assessment to determine patient/family and health care team treatment goals, and need for post-acute services based on payer coverage, community resources, and patient preferences, and barriers to discharge. Problem: Moderate - High Risk Fall Score Description: Manuel Fall Score of =/> 25 or indicated by [facility] Assessment Goal: Patient should be free from fall Description: Interventions: 1. [place] to environment 2. Hourly rounds addressing the 4 P's (Pain, Positioning, Possessions, Potty) 3. Clear area of hazards (spills, clutter, electrical cords, unnecessary equipment) 4. Place equipment (bed & TV controls, call light, phone, urinal) within reach 5. Encourage patient to wear glasses and hearing aides as appropriate 6. Maintain bed in lowest position 7. Lock wheels on bed/wheelchair 8. Provide adequate lighting, including night light 9. Assess need for additional bedding, food/fluids, pain med's prior to sleep/routinely 10. Provide gripper slippers or personal non-skid footwear 11. Teach patient and patient construction representative to maintain environment for safety and engage in all aspects of fall prevention program 12. Remind patient to call for help before getting out of bed 13. Initiate bed/chair/exit alarms supportive devices as appropriate, (chair wedge, no-skid floor mat, raised edge mattress, hip protectors) 14. Locate patient bed assignment for optimal visualization 15. Evaluate and identify Safe Patient Handling Equipment needs 16. Provide supervision when out of bed or chair 17. Utilize gait belt as needed to assist with ambulation 18. Place adaptive equipment (cane, walker) within reach 19. Request patient construction representative bring adaptive equipment/mobility aids from home or obtain and provide as needed 20. Consult pharmacy regarding effects of med's affecting mobility, cognition, and alternatives 21. Obtain physician order for PT if risk factors associated with mobility are present 22. Obtain physician order for OT as appropriate 23. Utilize diversional activities 24. Educate patient and patient construction representative how to maintain a safe environment during visitationtimes (notify nurse prior to leaving bedside) 25. Consider appropriateness of medical or non-director of medical review 26. Set up voiding schedule as appropriate (every 2 hours) Outcome: Progressing Note: Evaluation of progress towards goal: Maintain bed in lowest position and lock wheels on bed/wheelchair. Problem: Glucose Imbalance Goal: Clinical indication of glucose balance is achieved Description: Patient's goal is: INTERVENTIONS 1. Monitor blood glucose levels as ordered 2. Administer medications as ordered 3. Notify physician of ineffective treatment plan Outcome: Progressing Note: Evaluation of progress towards goal: Goal: Patient's discharge needs are met Description: Patient's goal is: INTERVENTIONS 1. Assess patient for self-management skills 2. Encourage participation in diabetes management 3. Identify potential discharge barriers on admission and throughout hospital stay 4. Involve patient/S.O. in discharge planning process 5. Communicate referral to critical care educator as appropriate 6. Communicate referral to international manager as appropriate 7. Collaborate with case management/social science teacher for discharge needs Outcome: Progressing Note: Evaluation of progress towards goal: Identify discharge learning needs (meds, wound care, etc). * Query Response - Rickey Galeano MD - 07/21/2025 11:51 AM EDT Query Response Note AUTOMATED QUERY TEXT: Type of Pneumonia: The diagnosis of pneumonia has been documented. Please provide additional specificity, if known, regarding etiology or causative organism. Clinical indicators include: pna, hemoptysis, chest xray, opacity, short of breath, cough, coughing, fever, chills, supplemental oxygen, nc spo2, dysphagia, zofran, ondansetron, temp, resp 19, spo2, nasal cannula, respiratory distress, congested cough, nc, wbc, cxr, sputum culture, ct, dyspnea, pneumonia, patchy Options provided: -- Other - I will add my own diagnosis -- Dismiss - Not applicable / Not valid AUTOMATED QUERY RESPONSE TEXT: Left lower lobe pneumonia, unknown organism Electronically signed by: Rickey Galeano MD 07/21/2025 11:49 AM * Discharge Planning Note - Joslyn Conn - 07/21/2025 11:12 AM EDT DISCHARGE PLANNING NOTE Referral sent to Scottie Lassiter ([facility]) formerly, [facility] ( P# ; F# ) * Discharge Planning Note - Elie Lynch RN - 07/21/2025 10:59 AM EDT Images from the original note were not included. Initial Assessment Initial Assessment Flowsheet Row Most Recent Value Patient Information Initial Pre-Hospitalization Assessment Completed? Completed Primary Caregiver Self Support System Family Members Discharge Planning Living Arrangements Alone, Private Residence Assistance Needed yes Type of Residence Private residence Private Residence 2 story Can patient reside on one level? Yes Residence Accessibility Steps into home Number of Steps 2 Home Care Services No Community Agencies Currently Utilized [facility] Referrals / Resources Provided Denies needs [facility] Does The Patient Have Existing Home DME? Yes Existing Home DME Options Walker, C-Pap, Other [toilet seat riser] Will the patient need DME at discharge? No, the patient has no home DME needs currently Stressors Income Information Income Information Retired/Pension/Social Security IP Hunger/Food Insecurity Screening Within the past 12 months we worried whether our food would run out before we got money to buy more. Never True Within the past 12 months the food we bought just didn't last and we didn't have money to get more.Never True Hunger Screening Complete? Yes Pt. Eligible for Food / Voucher No Caregiver/Family Member Caregiver/Family Member daughter in katelyn huang Caregiver/Family Member Involved with Current Plan of Care Yes Caregiver/Family Member in Agreement with Current Plan of Care Yes Caregiver/Support System Limitations Patient/Caregiver Goals Patient/Caregiver Goals Home with Home Care Community Provider Referral Services Requested Patient expects to be discharged to: home Does the patient wish to have family/friend/caregiver involved in their discharge planning? Yes Does the patient plan to return home to a community setting? Yes Discharge Disposition Home with home health services Does the patient need discharge transportation arranged? No Patient choice offered Yes List Provided Yes [facility] List Provided Home Care 3-Midnight Patient Goals: Patient/Caregiver Goals Patient/Caregiver Goals: Home with Home Care Goals: Goals Home (pt-stated) Evaluation of progress towards goal: Return home self care. Pharmacy Technician Infusion met with patient at bedside and introduced self and explained role. Patient's PCP and pharmacy was confirmed. Patient needs some assistance with ADL's and has walker, CPAP, toilet riser for DME. Per patient report: Smoking: denies ETOH: denies Drugs: denies Patient does not endorse issue obtaining food or medications and all utilities are working. Discharge disposition: Home with home care. Patient asked CN to call his daughter in law Huang to ask about home care- patient does [facility] but family thinks maybe home care as well. CN sent referral to [facility]. Pharmacy Technician Infusion will continue to follow for ongoing discharge transition needs. - Elie Lynch RN 07/21/25 10:59 AM * Plan of Care - Estelita Holden RN - 07/20/2025 11:26 PM EDT Problem: Pain Goal: Patient goal is pain score less than 4, able to rest, and participant in treatment plan as appropriate Description: INTERVENTIONS: 1. Encourage patient or legal construction representative to report early pain and ask for pain medicine when needed 2. Assess pain using appropriate pain scale and include the scale used when documenting 3. Administer analgesics based on type and severity of pain and evaluate response within appropriate time frame 4. Implement non-pharmacological measures as appropriate and evaluate response 5. Consider cultural and social influences on pain and pain management 6. Notify LIP if interventions ineffective or patient reports new pain 7. Monitor vital signs including pulse ox, end-tidal CO2 based on pain intervention 8. Reassess pain per policy 9. Teach patient or legal construction representative interventions for comforting Outcome: Progressing Note: Evaluation of progress towards goal: reposition for comfort, pain meds as needed Problem: Infection Goal: Absence of infection during hospitalization Description: INTERVENTIONS 1. Assess and monitor for signs and symptoms of infection. 2. Monitor lab/diagnostic results. 3. Monitor all insertion sites i.e., indwelling lines, tubes and drains. 4. Monitor endotracheal (as able) and nasal secretions for changes in amount and color. 5. Administer medications as ordered. 6. Instruct and encourage patient and family to use good hand hygiene technique. 7. Identify and instruct patient/patient construction representative in use of appropriate isolation precautionsfor identified infection/symptoms. 8. Provide and discuss with patient/patient construction representative on educational MDRO sheet. 9. Encourage and monitor nutritional status daily and consult international manager if indicated. 10. Implement neutropenic guidelines as needed. Outcome: Progressing Note: Evaluation of progress towards goal: monitor labs and vitals, atb as ordered Problem: Discharge Planning Goal: Discharge to post-acute care, other facility, or home with appropriate resources Description: Patient's goal is: INTERVENTIONS 1. Conduct assessment to determine patient/family and health care team treatment goals, and need for post-acute services based on payer coverage, community resources, and patient preferences, and barriers to discharge 2. Coordinate with Social work, Care Navigation, and Utilization Review to arrange appropriate level of services according to patient's needs based on patient preference and payer coverage in collaboration with the physician and health care team 3. Address psychosocial, clinical, and financial barriers to discharge as identified in assessment in conjunction with the patient/family and health care team 4. Consult appropriate ancillary services (i.e.. PT/OT/ST, etc) as needed 5. Communicate with and update the patient/family, physician, and health care team regarding progress on the discharge plan 6. Identify discharge learning needs (meds, wound care, etc). 7. Arrange for needed discharge transportation as appropriate Outcome: Progressing Note: Evaluation of progress towards goal: pln to d/c home when stable documented in this encounter Plan of Treatment NameTypePriorityAssociated DiagnosesOrder ScheduleOxygen Therapy - Maintain SpO2: 90%; *CLOTH DESIZING RANGE TENDER Guidelines for O2: Yes; Document: [email or web address]\Orders\Respiratory Care Guidelines\CPG Oxygen 2022.pdf Respiratory CareRoutineAs Needed until discontinued starting 07/20/2025edside Glucose *Place/Obtain serum glucose if >500 per glucometer.Point of Care Testing Eifivqm9D Daily (AC and at bedtime) until discontinued starting 07/21/2025, 14 completedBasic Metabolic PanelLabRoutineLab max of 3 days, Daily, for lab use only until discontinued starting 07/21/2025, 5 completedCBC auto differentialLab RoutineLab max of 3 days, Daily, for lab use only until discontinued starting 07/21/2025, 5 completedMagnesiumLabRoutineLab max of 3 days, Daily, for lab use only until discontinued starting 07/21/2025, 5 completedVas venous duplex upr single rightVascular UltrasoundRoutineOnce for 1 Occurrences starting 07/22/2025 until 07/22/2025Protime & INRLabRoutineLab max of 3 days, Daily, for lab use only until discontinued starting 07/24/2025, 2 completeddocumented as of this encounter Goals GoalPatient Goal TypeAssociated ProblemsRecent ProgressPatient-Stated?Author Home Elie Blackwell RN Note: Evaluation of progress towards goal: Return home self care. documented as of this encounter Procedures * The patient is currently admitted. The information in this section might not be complete until the patient is discharged. Procedure NamePriorityDate/TimeAssociated DiagnosisCommentsXR CHEST 1 VWRoutine 07/25/2025 9:58 AM EDT BEDSIDE GAVGGXKYnkivwy66/27/2025 7:14 AM EDT CBC WITH AUTO RXSYFRFXCFESEebkepf89/27/2025 6:09 AM EDT PROTIME & NVRLlywear80/27/2025 6:09 AM EDT YHYTSMCJYYxpojgb50/27/2025 6:09 AM EDT BASIC METABOLIC ZRKZJMntycer39/27/2025 6:09 AM EDT BEDSIDE YKLYMTOLxbkeev00/26/2025 9:20 PM EDT BEDSIDE XJWIHSRYqbpmvs32/26/2025 4:07 PM EDT BEDSIDE DMRECNDRuksqbv07/26/2025 11:05 AM EDT US RETROPERITONEAL GSVOYZESGomrmzm28/26/2025 10:51 AM EDT BEDSIDE QDXTTSVJalhthy46/26/2025 7:07 AM EDT CBC WITH AUTO GYUSNVUOXFKAErxcwlm21/26/2025 6:54 AM EDT PROTIME & MISUmvembn11/26/2025 6:54 AM EDT GEXGKGDVQMnlrcwc34/26/2025 6:54 AM EDT BASIC METABOLIC BUONGZkhvjqg71/26/2025 6:54 AM EDT BEDSIDE KTJSEIUTcrvaft94/25/2025 9:02 PM EDT BEDSIDE WWIOARGGrduobm73/25/2025 3:21 PM EDT JXASPXLWSThsiyku58/25/2025 2:54 PM EDT HTBZWFJONYogrqgf77/ 2:54 PM EDT BEDSIDE DTTAQFCWybtkxh61/25/2025 11:09 AM EDT BEDSIDE CJMUCYFUfblkpp86/25/2025 7:26 AM EDT CBC WITH AUTO SORSOHOBCRJRNpdxann31/25/2025 6:52 AM EDT DPGBLPWHNUzzpewf16/25/2025 6:52 AM EDT BASIC METABOLIC ATBUBUmoidyh25/25/2025 6:52 AM EDT HEMOGLOBIN AND HEMATOCRIT, CQEBMSfliemi01/24/2025 9:28 PM EDT BEDSIDE BVSCFIQJnoerdh74/24/2025 9:17 PM EDT BEDSIDE TIXERUOSjgxzhe19/24/2025 3:35 PM EDT HEMOGLOBIN AND HEMATOCRIT, AHTFYJjlmhfm44/24/2025 1:18 PM EDT BEDSIDE HVWQUMKIsiupbd80/24/2025 11:47 AM EDT BEDSIDE UZZYDHMJfmwxhg85/24/2025 7:39 AM EDT CBC WITH AUTO KMUGZUZPLIDSDumerxt28/24/2025 6:03 AM EDT KERRIVSDDDcfonuu11/24/2025 6:02 AM EDT BASIC METABOLIC IIGBEGhuhzbw66/24/2025 6:02 AM EDT BRONCHOPULMONARY UXCLVYTCrdkiou84/24/2025 4:00 AM EDTBRONCHOPULMONARY HYGIENE Ltpyimt7107/22/2025 12:00 AM EDTEXTRA TUBES PST LJQBfhfgye02/23/2025 10:54 PM EDT EXTRA UAUOIUelinhs73/23/2025 10:54 PM EDT HEMOGLOBIN AND HEMATOCRIT, RVKIBFtfcscl67/23/2025 10:54 PM EDT BEDSIDE AFRBHVFMkepfpw52/23/2025 9:08 PM EDT BRONCHOPULMONARY HTHTXNPXxbbvkj85/23/2025 8:00 PM EDTLOWER RESP CULTURE SPUTUM CULTURE INC GRAM HYRIIRpbuvlt73/23/2025 4:47 PM EDT CBC WITH AUTO WOSSFLZOIMYEBkptaax15/23/2025 4:41 PM EDT BEDSIDE MSUVKHMRxztsnx16/23/2025 3:56 PM EDT FZVFPRABMDxkkzai66/23/2025 2:01 PM EDT BASIC METABOLIC LLETOGymvdmb60/23/2025 2:01 PM EDT BEDSIDE CMMPVXRDnzopcd09/23/2025 1:56 PM EDT S PNEUMONIAE AG BZemswhu98/23/2025 9:47 AM EDT LEGIONELLA ANTIGEN, OXSAKGwatltr93/23/2025 9:47 AM EDT URINALYSISAdd-On07/21/2025 9:46 AM EDT ZXLEFbnlmvh13/23/2025 9:06 AM EDT PROTIME & RZSKdbelba10/23/2025 9:06 AM EDT EXTRA TUBES LAVENDER ASCEbghjqu30/23/2025 5:47 AM EDT PROCALCITONINAdd-On07/21/2025 5:47 AM EDT EXTRA OTZBYTernvsf26/23/2025 5:47 AM EDT ANDSKZAVBMhkdpir87/23/2025 5:47 AM EDT PHOSPHORUSAdd-On07/21/2025 5:47 AM EDT REPEATED UMLKSOhlzgwx48/23/2025 1:39 AM EDTEXTRA TUBES SST NJJFdperax13/22/2025 8:03 PM EDT REPEATED WIXMROnpldez89/22/2025 8:03 PM EDT EXTRA JWWTLLgmbqyu68/22/2025 8:03 PM EDT PULSE OXIMETRY, BENDRqryzqm93/22/2025 7:13 PM EDTCBC WITH AUTO DIFFERENTIALSTAT 07/20/2025 7:11 PM EDT XIGKOeergeq24/22/2025 7:11 PM EDT PROTIME & QGKVezsivy77/22/2025 7:11 PM EDT TYPE AND JTZDVDUGWA06/22/2025 7:11 PM EDT BASIC METABOLIC KRTRTQXDV30/22/2025 7:11 PM EDT XR CHEST 1 EAFVMS4607/20/2025 7:07 PM EDT documented in this encounter Results * X-ray chest 1 view (07/25/2025 9:58 AM EDT)Anatomical RegionLateralityModality Body, ChestN/AComputed RadiographySpecimen (Source)Anatomical Location / LateralityCollection Method / VolumeCollection TimeReceived Time07/25/2025 10:09 AM EDT Narrative 07/25/2025 10:10 AM EDT Single view chest History:Hemoptysis ??Difficulty breathing, shortness of breath Comparison: 07/20/2025 Findings: Single portable view of the chest. Small left pleural effusion with left lower lung and retrocardiac atelectasis versus pneumonia, increased. Small right pleural effusion. Impression: Increasing small left pleural effusion and left lower lung and retrocardiac atelectasis versus pneumonia. Finalized by Francisco Cornejo MD on 07/25/2025 10:10 AM Procedure Note Francisco Cornejo MD - 07/25/2025 Single view chest History:Hemoptysis Difficulty breathing, shortness of breath Comparison: 07/20/2025 Findings: Single portable view of the chest. Small left pleural effusion with leftlower lung and retrocardiac atelectasis versus pneumonia, increased. Smallright pleural effusion. Impression: Increasing small left pleural effusion and left lower lung andretrocardiac atelectasis versus pneumonia. Finalized by Francisco Cornejo MD on 07/25/2025 10:10 AM Authorizing ProviderResult TypeResult StatusRasandip Lee CLINICAL APPLICATIONS SPECIALIST-CNPIMG DIAGNOSTIC IMAGING ORDERABLESFinal Result * (ABNORMAL) Bedside Glucose *Place/Obtain serum glucose if >500 per glucometer. (07/25/2025 7:14 AM EDT)ComponentValueRef RangeTest MethodAnalysis Time Performed AtPathologist SignatureBedside Glucose (POC)116(H)65 - 99 mg/dL 07/25/2025 7:15 AM [facility] LABORATORYSpecimen (Source)Anatomical Location / LateralityCollection Method / VolumeCollection TimeReceived Time arterial/rdieohkxg14/27/2025 7:14 AM EDT1 7:15 AM EDT Narrative Authorizing ProviderResult TypeResult StatusAndre Noumi MDPOINT OF CARE TEST ORDERABLESFinal ResultPerforming OrganizationAddressCity/State/ZIP CodePhone Number [facility] [address] [place] [address], * (ABNORMAL) Protime & INR (07/25/2025 6:09 AM EDT)ComponentValueRef RangeTest MethodAnalysis TimePerformed AtPathologist GouaecriyARNDJVK66.3(H)9.8 - 13.2 sec07/25/2025 7:29 AM [facility] LABORATORYINR1.6(H)0.9 - 1.2 07/25/2025 7:29 AM [facility] LABORATORYSpecimen (Source) Anatomical Location / LateralityCollection Method / VolumeCollection Time Received TimeBloodVenous blood / UnknownVenipuncture / Qmuduft5707/25/2025 6:09 AM EDT1 7:11 AM EDT Narrative Authorizing ProviderResult TypeResult StatusHibterry Barrow Eliza SANDHULAB BLOOD ORDERABLESFinal ResultPerforming OrganizationAddressCity/State/ZIP CodePhone Number [facility] [address] [place] [address], * Magnesium (07/25/2025 6:09 AM EDT)ComponentValueRef RangeTest MethodAnalysis TimePerformed AtPathologist SignatureMAGNESIUM2.01.8 - 2.6 mg/dL07/25/2025 7:49 AM [facility] LABORATORYSpecimen (Source)Anatomical Location / LateralityCollection Method / VolumeCollection TimeReceived Time BloodVenous blood / UnknownVenipuncture / Pzuopqi0907/25/2025 6:09 AM EDT 07/25/2025 7:11 AM EDT Narrative Authorizing ProviderResult TypeResult StatusHibterry Barrow Eliza SANDHULAB BLOOD ORDERABLESFinal ResultPerforming OrganizationAddressCity/State/ZIP CodePhone Number [facility] [address] [place] [address], * (ABNORMAL) CBC auto differential (07/25/2025 6:09 AM EDT)ComponentValueRef RangeTest MethodAnalysis TimePerformed AtPathologist SignatureWBC6.94 - 11 x10E9/L1 7:27 AM [facility] LABORATORYRBC Count3.47 (L)4.1 - 5.7 X10E12/L1 7:27 AM [facility] Euhdeogwku13.0(L)13 - 17 g/dL07/25/2025 7:27 AM [facility] RSWYTAOQOCEgdirzzrum33.4(L)39 - 50 %07/25/2025 7:27 AM [facility] MOLZOAXINLVTY2599 - 100 fL07/25/2025 7:27 AM [facility] VIZLETRJWATGX58.727 - 34 pg07/25/2025 7:27 AM [facility] BGYCEWCJHRQSER81.932 - 36 g/dL07/25/2025 7:27 AM [facility] FIUZKUXXGRSAF42.3(H)11.5 - 15 %07/25/2025 7:27 AM [facility] LABORATORYPlatelet Nejwh465932 - 450 X10E9/L1 7:27 AM [facility] LABORATORYMPV7.67 - 12 fL07/25/2025 7:27 AM [facility] LABORATORYNeutrophils %75.7%07/25/2025 7:27 AM [facility] LABORATORYLymphocytes %9.9%07/25/2025 7:27 AM [facility] LABORATORYMonocytes %11.1%07/25/2025 7:27 AM [facility] LABORATORYEosinophils %3.0%07/25/2025 7:27 AM [facility] LABORATORYBasophils %0.3%07/25/2025 7:27 AM [facility] LABORATORYNeutrophils Absolute (A)5.31.5 - 6.6 10*3/uL 07/25/2025 7:27 AM [facility] LABORATORYLymphocytes Absolute 0.7(L)1.0 - 3.5 10*3/uL07/25/2025 7:27 AM [facility] LABORATORYMonocytes Absolute0.80.0 - 0.9 10*3/uL07/25/2025 7:27 AM [facility] LABORATORYEosinophils Absolute0.20.0 - 0.4 10*3/uL07/25/2025 7:27 AM [facility] LABORATORYBasophils Absolute0.00.0 - 0.2 10*3/uL07/25/2025 7:27 AM [facility] LABORATORYDifferential TypeAUTOMATED SRIADSIHGRHB37/27/2025 7:27 AM [facility] LABORATORYSpecimen (Source)Anatomical Location / LateralityCollection Method / VolumeCollection TimeReceived TimeBloodVenous blood / UnknownVenipuncture / Lgplpfk3007/25/2025 6:09 AM EDT1 7:11 AM EDT Narrative Authorizing ProviderResult TypeResult StatusHibah H Ismail MDLAB BLOOD ORDERABLESFinal ResultPerforming OrganizationAddressCity/State/ZIP CodePhone Number [facility] [address] [place] [address], * (ABNORMAL) Basic Metabolic Panel (07/25/2025 6:09 AM EDT)ComponentValueRef RangeTest MethodAnalysis TimePerformed AtPathologist JyousdxnyZMUIAB895567 - 146 mmol/L1 7:49 AM [facility] LABORATORYPOTASSIUM 3.73.5 - 5.0 mmol/L1 7:49 AM [facility] XDNBVAXA28459 - 109 mmol/L1 7:49 AM [facility] LABORATORYCARBON OLWCVON5737 - 32 mmol/L1 7:49 AM [facility] LABORATORYANION GAP75 - 15 mmol/L1 7:49 AM [facility] LABORATORYBLOOD UREA BPOATEOX024 - 27 mg/dL07/25/2025 7:49 AM [facility] LABORATORYCREATININE0.820.60 - 1.30 mg/dL 07/25/2025 7:49 AM [facility] LABORATORYComment:METHOD TRACEABLE TO IDMS SLSBEHHZRIFRCDN414(H)65 - 99 mg/dL07/25/2025 7:49 AM EDT [facility] LABORATORYCALCIUM8.1(L)8.5 - 10.5 mg/dL07/25/2025 7:49 AM [facility] LABORATORYEGFR Non-Race Ilenmyiql21>=60 ml/min/1.73sq.m1 7:49 AM [facility] Comment: Reported eGFR is based on the CKD-EPI 2020 equation that does not use a race coefficient. Specimen (Source)Anatomical Location / LateralityCollection Method / Volume Collection TimeReceived TimeBloodVenous blood / UnknownVenipuncture / Unknown 07/25/2025 6:09 AM EDT1 7:11 AM EDT Narrative Authorizing ProviderResult TypeResult StatusHibah H Ismail MDLAB BLOOD ORDERABLESFinal ResultPerforming OrganizationAddressCity/State/ZIP CodePhone Number [facility] [address] [place] [address], [place] [phone] * (ABNORMAL) Bedside Glucose *Place/Obtain serum glucose if >500 per glucometer. (07/24/2025 9:20 PM EDT)ComponentValueRef RangeTest MethodAnalysis Time Performed AtPathologist SignatureBedside Glucose (POC)121(H)65 - 99 mg/dL 07/24/2025 11:43 PM [facility] LABORATORYSpecimen (Source)Anatomical Location / LateralityCollection Method / VolumeCollection TimeReceived Time arterial/ecmktgwwx07/26/2025 9:20 PM EDT1 11:43 PM EDT Narrative Authorizing ProviderResult TypeResult StatusHib H Ismail MDPOINT OF CARE TEST ORDERABLESFinal ResultPerforming OrganizationAddressCity/State/ZIP CodePhone Number [facility] [address] [place] [address], [place] * (ABNORMAL) Bedside Glucose *Place/Obtain serum glucose if >500 per glucometer. (07/24/2025 4:07 PM EDT)ComponentValueRef RangeTest MethodAnalysis Time Performed AtPathologist SignatureBedside Glucose (POC)134(H)65 - 99 mg/dL 07/24/2025 4:09 PM [facility] LABORATORYSpecimen (Source)Anatomical Location / LateralityCollection Method / VolumeCollection TimeReceived Time arterial/cjeoloktf83/26/2025 4:07 PM EDT1 4:09 PM EDT Narrative Authorizing ProviderResult TypeResult StatusHib H Ismail MDPOINT OF CARE TEST ORDERABLESFinal ResultPerforming OrganizationAddressCity/State/ZIP CodePhone Number [facility] [address] [place] [address], [place] * (ABNORMAL) Bedside Glucose *Place/Obtain serum glucose if >500 per glucometer. (07/24/2025 11:05AM EDT)ComponentValueRef RangeTest MethodAnalysis Time Performed AtPathologist SignatureBedside Glucose (POC)139(H)65 - 99 mg/dL 07/24/2025 11:[address] [facility] LAB[facility]ATORYSpecimen (Source)Anatomical Location / LateralityCollection Method / VolumeCollection TimeReceived Time arterial/ccgbsftja12/26/2025 11:05 AM EDT1 11:06 AM EDT Narrative Authorizing ProviderResult TypeResult StatusHibah H Ismail MDPOINT OF CARE TEST ORDERABLESFinal ResultPerforming OrganizationAddressCity/State/ZIP CodePhone Number [facility] [address] [place] [address], [place] * Ultrasound retroperitoneal complete (07/24/2025 10:51 AM EDT)Anatomical Region LateralityModalityBodyUltrasoundSpecimen (Source)Anatomical Location / LateralityCollection Method / VolumeCollection TimeReceived Time07/24/2025 10:56 AM EDT Narrative 07/24/2025 10:57 AM EDT US RETROPERITONEAL COMPLETE Clinical history:Urinary retention Comparison: None. Findings: Real-time sonographic evaluation the kidneys and bladder performed. Right kidney measures 11.5 x 5.1 x 5.1 cm. Left kidney measures 11.6 x 4.7 x 4.5 cm. There is bilateral renal cortical volume loss and thinning. No renal collecting system dilatation, abnormal calcification or renal parenchymal distorting mass. A bladder is decompressed with Tolliver catheter. Impression: Mild bilateral renal cortical volume loss and thinning. No renal collecting system dilatation. Finalized by Francisco Cornejo MD on 07/24/2025 10:57 AM Procedure Note Francisco Cornejo MD - 07/24/2025 US RETROPERITONEAL COMPLETE Clinical history:Urinary retention Comparison: None. Findings: Real-time sonographic evaluation the kidneys and bladder performed. Right kidney measures 11.5 x 5.1 x 5.1 cm. Left kidney measures 11.6 x 4.7x 4.5 cm. There is bilateral renal cortical volume loss and thinning. No renalcollecting system dilatation, abnormal calcification or renal parenchymaldistorting mass. A bladder is decompressed with Tolliver catheter. Impression: Mild bilateral renal cortical volume loss and thinning. No renalcollecting system dilatation. Finalized by Francisco Cornejo MD on 07/24/2025 10:57 AM Authorizing ProviderResult TypeResult StatusRaul Marbin VILLEGAS ORDERABLESFinal Result * (ABNORMAL) Bedside Glucose *Place/Obtain serum glucose if >500 per glucometer. (07/24/2025 7:07 AM EDT)ComponentValueRef RangeTest MethodAnalysis Time Performed AtPathologist SignatureBedside Glucose (POC)154(H)65 - 99 mg/dL 07/24/2025 7:08 AM [facility] LABORATORYSpecimen (Source)Anatomical Location / LateralityCollection Method / VolumeCollection TimeReceived Time arterial/pabnlieyy80/26/2025 7:07 AM EDT1 7:08 AM EDT Narrative Authorizing ProviderResult TypeResult StatusHibah H Ismail MDPOINT OF CARE TEST ORDERABLESFinal ResultPerforming OrganizationAddressCity/State/ZIP CodePhone Number [facility] [address] [place] [address], * (ABNORMAL) Protime & INR (07/24/2025 6:54 AM EDT)ComponentValueRef RangeTest MethodAnalysis TimePerformed AtPathologist NcbikzevdSFWJENC35.2(H)9.8 - 13.2 sec07/24/2025 7:29 AM [facility] LABORATORYINR1.5(H)0.9 - 1.2 07/24/2025 7:29 AM [facility] LABORATORYSpecimen (Source) Anatomical Location / LateralityCollection Method / VolumeCollection Time Received TimeBloodVenous blood / UnknownVenipuncture / Xgotgnv1007/24/2025 6:54 AM EDT1 7:07 AM EDT Narrative Authorizing ProviderResult TypeResult StatusHibah H Eliza CircuLiteLAB BLOOD ORDERABLESFinal ResultPerforming OrganizationAddressCity/State/ZIP CodePhone Number [facility] [address] [place] [address], * Magnesium (07/24/2025 6:54 AM EDT)ComponentValueRef RangeTest MethodAnalysis TimePerformed AtPathologist SignatureMAGNESIUM2.21.8 - 2.6 mg/dL07/24/2025 7:42 AM [facility] LABORATORYSpecimen (Source)Anatomical Location / LateralityCollection Method / VolumeCollection TimeReceived Time BloodVenous blood / UnknownVenipuncture / Qevmolj6107/24/2025 6:54 AM EDT 07/24/2025 7:08 AM EDT Narrative Authorizing ProviderResult TypeResult Status[facility] Eliza CircuLiteLAB BLOOD ORDERABLESFinal ResultPerforming OrganizationAddressCity/State/ZIP CodePhone Number [facility] [address] [place] [address], * (ABNORMAL) CBC auto differential (07/24/2025 6:54 AM EDT)ComponentValueRef RangeTest MethodAnalysis TimePerformed AtPathologist SignatureWBC6.64 - 11 x10E9/L1 7:25 AM [facility] LABORATORYRBC Count3.46 (L)4.1 - 5.7 X10E12/L1 7:25 AM [facility] Fjnmhxyqxu82.1(L)13 - 17 g/dL07/24/2025 7:25 AM [facility] DIVYLMPRZOBenpnryatd82.4(L)39 - 50 %07/24/2025 7:25 AM [facility] JVJYTHWQUKMAZ4666 - 100 fL07/24/2025 7:25 AM [facility] ANNMYPYNTPABD98.027 - 34 pg07/24/2025 7:25 AM [facility] EWAQIGXKJMAQTE32.232 - 36 g/dL07/24/2025 7:25 AM [facility] RBBWPNYMEXTGC54.7(H)11.5 - 15 %07/24/2025 7:25 AM [facility] LABORATORYPlatelet Jkhgg736394 - 450 X10E9/L1 7:25 AM [facility] LABORATORYMPV7.77 - 12 fL07/24/2025 7:25 AM [facility] LABORATORYNeutrophils %76.5%07/24/2025 7:25 AM [facility] LABORATORYLymphocytes %10.5%07/24/2025 7:25 AM [facility] LABORATORYMonocytes %10.5%07/24/2025 7:25 AM [facility] LABORATORYEosinophils %2.2%07/24/2025 7:25 AM [facility] LABORATORYBasophils %0.3%07/24/2025 7:25 AM [facility] LABORATORYNeutrophils Absolute (A)5.01.5 - 6.6 10*3/uL 07/24/2025 7:25 AM [facility] LABORATORYLymphocytes Absolute 0.7(L)1.0 - 3.5 10*3/uL07/24/2025 7:25 AM [facility] LABORATORYMonocytes Absolute0.70.0 - 0.9 10*3/uL07/24/2025 7:25 AM [facility] LABORATORYEosinophils Absolute0.10.0 - 0.4 10*3/uL07/24/2025 7:25 AM [facility] LABORATORYBasophils Absolute0.00.0 - 0.2 10*3/uL07/24/2025 7:25 AM [facility] LABORATORYDifferential TypeAUTOMATED WVEBLIQXGFWO63/26/2025 7:25 AM [facility] LABORATORYSpecimen (Source)Anatomical Location / LateralityCollection Method / VolumeCollection TimeReceived TimeBloodVenous blood / UnknownVenipuncture / Xadinit6107/24/2025 6:54 AM EDT1 7:07 AM EDT Narrative Authorizing ProviderResult TypeResult StatusHibterry Barrow Eliza VALDIVIA BLOOD ORDERABLESFinal ResultPerforming OrganizationAddressCity/State/ZIP CodePhone Number [facility] [address] [place] [address], * (ABNORMAL) Basic Metabolic Panel (07/24/2025 6:54 AM EDT)ComponentValueRef RangeTest MethodAnalysis TimePerformed AtPathologist QqprxjekrRGVCPK639877 - 146 mmol/L1 7:42 AM [facility] LABORATORYPOTASSIUM 3.73.5 - 5.0 mmol/L1 7:42 AM [facility] KIHGIRNX06460 - 109 mmol/L1 7:42 AM [facility] LABORATORYCARBON MTXCDMH2413 - 32 mmol/L1 7:42 AM [facility] LABORATORYANION GAP85 - 15 mmol/ 7:42 AM [facility] LABORATORYBLOOD UREA OJGTAJCX932 - 27 mg/dL07/24/2025 7:42 AM [facility] LABORATORYCREATININE0.950.60 - 1.30 mg/dL 07/24/2025 7:42 AM [facility] LABORATORYComment:METHOD TRACEABLE TO IDMS YZBOWRFOVELUPCU744(H)65 - 99 mg/dL07/24/2025 7:42 AM EDT [facility] LABORATORYCALCIUM8.0(L)8.5 - 10.5 mg/dL07/24/2025 7:42 AM [facility] LABORATORYEGFR Non-Race Ewtacjuej46>=60 ml/min/1.73sq.m1 7:42 AM [facility] Comment: Reported eGFR is based on the CKD-EPI 2020 equation that does not use a race coefficient. Specimen (Source)Anatomical Location / LateralityCollection Method / Volume Collection TimeReceived TimeBloodVenous blood / UnknownVenipuncture / Unknown 07/24/2025 6:54 AM EDT1 7:08 AM EDT Narrative Authorizing ProviderResult TypeResult StatusHibah H Ismail MDLAB BLOOD ORDERABLESFinal ResultPerforming OrganizationAddressCity/State/ZIP CodePhone Number [facility] [address] [place] [address], [place] [phone] * (ABNORMAL) Bedside Glucose *Place/Obtain serum glucose if >500 per glucometer. (07/23/2025 9:02 PM EDT)ComponentValueRef RangeTest MethodAnalysis Time Performed AtPathologist SignatureBedside Glucose (POC)129(H)65 - 99 mg/dL 07/23/2025 9:12 PM [facility] LABORATORYSpecimen (Source)Anatomical Location / LateralityCollection Method / VolumeCollection TimeReceived Time arterial/lcektpauu47/25/2025 9:02 PM EDT1 9:12 PM EDT Narrative Authorizing ProviderResult TypeResult StatusHib H Ismail MDPOINT OF CARE TEST ORDERABLESFinal ResultPerforming OrganizationAddressCity/State/ZIP CodePhone Number [facility] [address] [place] [address], [place] * (ABNORMAL) Bedside Glucose *Place/Obtain serum glucose if >500 per glucometer. (07/23/2025 3:21 PM EDT)ComponentValueRef RangeTest MethodAnalysis Time Performed AtPathologist SignatureBedside Glucose (POC)137(H)65 - 99 mg/dL 07/23/2025 3:47 PM [facility]YS[facility] (Source)Anatomical Location / LateralityCollection Method / VolumeCollection TimeReceived Time arterial/shmsndzot29/25/2025 3:21 PM EDT1 3:47 PM EDT Narrative Authorizing ProviderResult TypeResult StatusHibah H Ismail MDPOINT OF CARE TEST ORDERABLESFinal ResultPerforming OrganizationAddressPomerene Hospital/State/ZIP CodePhone Number [facility] [address] [place] [address], [place] * Potassium (07/23/2025 2:54 PM EDT)ComponentValueRef RangeTest MethodAnalysis TimePerformed AtPathologist SignaturePOTASSIUM4.33.5 - 5.0 mmol/L1 3:28 PM [facility]YSpecimen (Source)Anatomical Location / LateralityCollection Method / VolumeCollection TimeReceived Time BloodVenous blood / UnknownVenipuncture / Pszjilt0807/23/2025 2:54 PM EDT 07/23/2025 3:03 PM EDT Narrative Authorizing ProviderResult TypeResult StatusHibah H Ismail MDLAB BLOOD ORDERABLESFinal ResultPerforming OrganizationAddressCity/State/ZIP CodePhone Number [facility] [address] [place] [address], * Magnesium (07/23/2025 2:54 PM EDT)ComponentValueRef RangeTest MethodAnalysis TimePerformed AtPathologist SignatureMAGNESIUM2.31.8 - 2.6 mg/dL07/23/2025 3:28 PM [facility] (Source)Anatomical Location / LateralityCollection Method / VolumeCollection TimeReceived Time BloodVenous blood / UnknownVenipuncture / Pyecwpo2607/23/2025 2:54 PM EDT 07/23/2025 3:03 PM EDT Narrative Authorizing ProviderResult TypeResult StatusHib H Ismail MDLAB BLOOD ORDERABLESFinal ResultPerforming OrganizationAddressCity/State/ZIP CodePhone Number [facility] [address] [place] [address], * (ABNORMAL) Bedside Glucose *Place/Obtain serum glucose if >500 per glucometer. (07/23/2025 11:09AM EDT)ComponentValueRef RangeTest MethodAnalysis Time Performed AtPathologist SignatureBedside Glucose (POC)205(H)65 - 99 mg/dL 07/23/2025 11:28 AM [facility] LABORATORYSpecimen (Source)Anatomical Location / LateralityCollection Method / VolumeCollection TimeReceived Time arterial/maybhwxtb10/25/2025 11:09 AM EDT1 11:28 AM EDT Narrative Authorizing ProviderResult TypeResult StatusHibah H Ismail MDPOINT OF CARE TEST ORDERABLESFinal ResultPerforming OrganizationAddressCity/State/ZIP CodePhone Number [facility] [address] [place] [address], * (ABNORMAL) Bedside Glucose *Place/Obtain serum glucose if >500 per glucometer. (07/23/2025 7:26 AM EDT)ComponentValueRef RangeTest MethodAnalysis Time Performed AtPathologist SignatureBedside Glucose (POC)108(H)65 - 99 mg/dL 07/23/2025 7:27 AM [facility] LABORATORYSpecimen (Source)Anatomical Location / LateralityCollection Method / VolumeCollection TimeReceived Time arterial/snepwpdez83/25/2025 7:26 AM EDT1 7:27 AM EDT Narrative Authorizing ProviderResult TypeResult StatusHibah H Ismail MDPOINT OF CARE TEST ORDERABLESFinal ResultPerforming OrganizationAddressCity/State/ZIP CodePhone Number [facility] [address] [place] [address], [place] * Magnesium (07/23/2025 6:52 AM EDT)ComponentValueRef RangeTest MethodAnalysis TimePerformed AtPathologist SignatureMAGNESIUM1.81.8 - 2.6 mg/dL07/23/2025 8:01 AM [facility] LABORATORYSpecimen (Source)Anatomical Location / LateralityCollection Method / VolumeCollection TimeReceived Time BloodVenous blood / UnknownVenipuncture / Ncjtcvf1107/23/2025 6:52 AM EDT 07/23/2025 7:25 AM EDT Narrative Authorizing ProviderResult TypeResult StatusHibah H Ismail MDLAB BLOOD ORDERABLESFinal ResultPerforming OrganizationAddressty/State/ZIP CodePhone Number [facility] [address] [place] [address], [place] [phone] * (ABNORMAL) CBC auto differential (07/23/2025 6:52 AM EDT)ComponentValueRef RangeTest MethodAnalysis TimePerformed AtPathologist SignatureWBC6.24 - 11 x10E9/L10 7:41 AM [facility] LABORATORYRBC Count3.51 (L)4.1 - 5.7 X10E12/L10 7:41 AM [facility] Mqvganvqsw91.1(L)13 - 17 g/dL07/23/2025 7:41 AM [facility] BIXYOSZIKHUqervnnror26.7(L)39 - 50 %07/23/2025 7:41 AM [facility] ONYDEHEGXETIK2306 - 100 fL07/23/2025 7:41 AM [facility] WTEXOAPYZTHSE48.627 - 34 pg07/23/2025 7:41 AM [facility] AHBGQRQFUIUNPU83.932 - 36 g/dL07/23/2025 7:41 AM [facility] RNRLSSVZXRUQL85.9(H)11.5 - 15 %07/23/2025 7:41 AM [facility] LABORATORYPlatelet Esfyw048(L)150 - 450 X10E9/L1 7:41 AM [facility] LABORATORYMPV8.27 - 12 fL07/23/2025 7:41 AM [facility] LABORATORYNeutrophils %74.5%07/23/2025 7:41 AM [facility] LABORATORYLymphocytes %12.0%07/23/2025 7:41 AM [facility] LABORATORYMonocytes %11.3%07/23/2025 7:41 AM [facility] LABORATORYEosinophils %1.9%07/23/2025 7:41 AM [facility] LABORATORYBasophils %0.3%07/23/2025 7:41 AM [facility] LABORATORYNeutrophils Absolute (A)4.71.5 - 6.6 10*3/uL 07/23/2025 7:41 AM [facility] LABORATORYLymphocytes Absolute 0.8(L)1.0 - 3.5 10*3/uL07/23/2025 7:41 AM [facility] LABORATORYMonocytes Absolute0.70.0 - 0.9 10*3/uL07/23/2025 7:41 AM [facility] LABORATORYEosinophils Absolute0.10.0 - 0.4 10*3/uL07/23/2025 7:41 AM [facility] LABORATORYBasophils Absolute0.00.0 - 0.2 10*3/uL07/23/2025 7:41 AM [facility] LABORATORYDifferential TypeAUTOMATED FFQXKCIAWSJA20/25/2025 7:41 AM [facility] LABORATORYSpecimen (Source)Anatomical Location / LateralityCollection Method / VolumeCollection TimeReceived TimeBloodVenous blood / UnknownVenipuncture / Dlepwrh0707/23/2025 6:52 AM EDT1 7:25 AM EDT Narrative Authorizing ProviderResult TypeResult StatusHibah H Ismadaja MDLAB BLOOD ORDERABLESFinal ResultPerforming OrganizationAddressCity/State/ZIP CodePhone Number [facility] [address] [place] [id number], * (ABNORMAL) Basic Metabolic Panel (07/23/2025 6:52 AM EDT)ComponentValueRef RangeTest MethodAnalysis TimePerformed AtPathologist JhiahiijhGSRDRP863573 - 146 mmol/L1 8:01 AM [facility] LABORATORYPOTASSIUM 3.63.5 - 5.0 mmol/L1 8:01 AM [facility] SKPPICHT58410 - 109 mmol/L1 8:01 AM [facility] LABORATORYCARBON LPOVBAL3459 - 32 mmol/L1 8:01 AM [facility] LABORATORYANION GAP75 - 15 mmol/L1 8:01 AM [facility] LABORATORYBLOOD UREA OHUZXWYR868 - 27 mg/dL07/23/2025 8:01 AM [facility] LABORATORYCREATININE0.930.60 - 1.30 mg/dL 07/23/2025 8:01 AM [facility] LABORATORYComment:METHOD TRACEABLE TO IDMS DSPSPZUKYFCUIOJ806(H)65 - 99 mg/dL07/23/2025 8:01 AM EDT [facility] LABORATORYCALCIUM8.1(L)8.5 - 10.5 mg/dL07/23/2025 8:01 AM [facility] LABORATORYEGFR Non-Race Oazszuzhg73>=60 ml/min/1.73sq.m1 8:01 AM [facility] Comment: Reported eGFR is based on the CKD-EPI 2020 equation that does not use a race coefficient. Specimen (Source)Anatomical Location / LateralityCollection Method / Volume Collection TimeReceived TimeBloodVenous blood / UnknownVenipuncture / Unknown 07/23/2025 6:52 AM EDT1 7:25 AM EDT Narrative Authorizing ProviderResult TypeResult Status[facility] Danial Kay [employer] BLOOD ORDERABLESFinal ResultPerforming OrganizationAddressCity/State/ZIP CodePhone Number [facility] [address] [place] [address], [place] [phone] * (ABNORMAL) Hemoglobin and hematocrit, blood (07/22/2025 9:28 PM EDT)Component ValueRef RangeTest MethodAnalysis TimePerformed AtPathologist Signature Zhjjfdmkwj31.5(L)13 - 17 g/dL07/22/2025 9:49 PM [facility] OBXAOLQROEJxqxnswoat99.9(L)39 - 50 %07/22/2025 9:49 PM [facility] LABORATORYSpecimen (Source)Anatomical Location / LateralityCollection Method / VolumeCollection TimeReceived TimeBloodVenous blood / Unknown Venipuncture / Gvicetj2807/22/2025 9:28 PM EDT1 9:38 PM EDT Narrative Authorizing ProviderResult TypeResult StatusHib Danial Kay [employer] BLOOD ORDERABLESFinal ResultPerforming OrganizationAddressCity/State/ZIP CodePhone Number [facility] [address] [place] [address], [place] [phone] * (ABNORMAL) Bedside Glucose *Place/Obtain serum glucose if >500 per glucometer. (07/22/2025 9:17 PM EDT)ComponentValueRef RangeTest MethodAnalysis Time Performed AtPathologist SignatureBedside Glucose (POC)122(H)65 - 99 mg/dL 07/22/2025 9:26 PM [facility] LABORATORYSpecimen (Source)Anatomical Location / LateralityCollection Method / VolumeCollection TimeReceived Time arterial/ekxtlisft77/24/2025 9:17 PM EDT1 9:26 PM EDT Narrative Authorizing ProviderResult TypeResult Status[facility] Isnyil MDPOINT OF CARE TEST ORDERABLESFinal ResultPerforming OrganizationAddressty/State/ZIP CodePhone Number [facility] [address] [place] [address], [place] * (ABNORMAL) Bedside Glucose *Place/Obtain serum glucose if >500 per glucometer. (07/22/2025 3:35 PM EDT)ComponentValueRef RangeTest MethodAnalysis Time Performed AtPathologist SignatureBedside Glucose (POC)123(H)65 - 99 mg/dL 07/22/2025 3:37 PM [facility] LABORATORYSpecimen (Source)Anatomical Location / LateralityCollection Method / VolumeCollection TimeReceived Time arterial/qkbbrorxj17/24/2025 3:35 PM EDT1 3:37 PM EDT Narrative Authorizing ProviderResult TypeResult [facility] Isnyil MDPOINT OF CARE TEST ORDERABLESFinal ResultPerforming OrganizationAddressty/State/ZIP CodePhone Number [facility] [address] [place] [address], [place] * (ABNORMAL) Hemoglobin and hematocrit, blood (07/22/2025 1:18 PM EDT)Component ValueRef RangeTest MethodAnalysis TimePerformed AtPathologist Signature Dazxnmlgwi62.0(L)13 - 17 g/dL07/22/2025 1:50 PM [facility] FGDPVOGXOSSrphuudbdv03.7(L)39 - 50 %07/22/2025 1:50 PM [facility] LABORATORYSpecimen (Source)Anatomical Location / LateralityCollection Method / VolumeCollection TimeReceived TimeBloodVenous blood / Unknown Venipuncture / Ewpxeap8207/22/2025 1:18 PM EDT1 1:27 PM EDT Narrative Authorizing ProviderResult TypeResult StatusHibah H Ismail MDLAB BLOOD ORDERABLESFinal ResultPerforming OrganizationAddressty/State/ZIP CodePhone Number [facility] [address] [place] [address], [place] [phone] * (ABNORMAL) Bedside Glucose *Place/Obtain serum glucose if >500 per glucometer. (07/22/2025 11:47AM EDT)ComponentValueRef RangeTest MethodAnalysis Time Performed AtPathologist SignatureBedside Glucose (POC)152(H)65 - 99 mg/dL 07/22/2025 11:49 AM [facility] LABORATORYSpecimen (Source)Anatomical Location / LateralityCollection Method / VolumeCollection TimeReceived Time arterial/dzulxxiai85/24/2025 11:47 AM EDT1 11:49 AM EDT Narrative Authorizing ProviderResult TypeResult StatusHib H Ismail MDPOINT OF CARE TEST ORDERABLESFinal ResultPerforming OrganizationAddressty/State/ZIP CodePhone Number [facility] [address] [place] [address], [place] * (ABNORMAL) Bedside Glucose *Place/Obtain serum glucose if >500 per glucometer. (07/22/2025 7:39 AM EDT)ComponentValueRef RangeTest MethodAnalysis Time Performed AtPathologist SignatureBedside Glucose (POC)119(H)65 - 99 mg/dL 07/22/2025 7:41 AM [facility] LABORATORYSpecimen (Source)Anatomical Location / LateralityCollection Method / VolumeCollection TimeReceived Time arterial/epmwngzvz96/24/2025 7:39 AM EDT1 7:41 AM EDT Narrative Authorizing ProviderResult TypeResult StatusHib H Ismail MDPOINT OF CARE TEST ORDERABLESFinal ResultPerforming OrganizationAddressty/State/ZIP CodePhone Number [facility] [address] [place] [address], [place] * (ABNORMAL) CBC auto differential (07/22/2025 6:03 AM EDT)ComponentValueRef RangeTest MethodAnalysis TimePerformed AtPathologist SignatureWBC7.94 - 11 x10E9/L10 8:26 AM [facility] LABORATORYRBC Count3.65 (L)4.1 - 5.7 X10E12/L10 8:26 AM [facility] Kzeurqfggp79.6(L)13 - 17 g/dL07/22/2025 8:26 AM [facility] XFGMUPKKOOInwkuzyfxj97.7(L)39 - 50 %07/22/2025 8:26 AM [facility] YWEFJCUFZLWSP6169 - 100 fL07/22/2025 8:26 AM [facility] WCOQHHVEKFEYD81.727 - 34 pg07/22/2025 8:26 AM [facility] DFSPYOBOOOPADU98.432 - 36 g/dL07/22/2025 8:26 AM [facility] HSDKRRLUTOTDW36.6(H)11.5 - 15 %07/22/2025 8:26 AM [facility] LABORATORYPlatelet Tjtkl199(L)150 - 450 X10E9/L1 8:26 AM [facility] LABORATORYMPV8.37 - 12 fL07/22/2025 8:26 AM [facility] LABORATORYNeutrophils %79.5%07/22/2025 8:26 AM [facility] LABORATORYLymphocytes %9.1%07/22/2025 8:26 AM [facility] LABORATORYMonocytes %10.0%07/22/2025 8:26 AM [facility] LABORATORYEosinophils %1.2%07/22/2025 8:26 AM [facility] LABORATORYBasophils %0.2%07/22/2025 8:26 AM [facility] LABORATORYNeutrophils Absolute (A)6.31.5 - 6.6 10*3/uL 07/22/2025 8:26 AM [facility] LABORATORYLymphocytes Absolute 0.7(L)1.0 - 3.5 10*3/uL07/22/2025 8:26 AM [facility] LABORATORYMonocytes Absolute0.80.0 - 0.9 10*3/uL07/22/2025 8:26 AM [facility] LABORATORYEosinophils Absolute0.10.0 - 0.4 10*3/uL07/22/2025 8:26 AM [facility] LABORATORYBasophils Absolute0.00.0 - 0.2 10*3/uL07/22/2025 8:26 AM [facility] LABORATORYDifferential TypeAUTOMATED LDVXTLEAYOKR75/24/2025 8:26 AM [facility] LABORATORYSpecimen (Source)Anatomical Location / LateralityCollection Method / VolumeCollection TimeReceived TimeBloodVenous blood / UnknownVenipuncture / Ggyvign5607/22/2025 6:03 AM EDT1 6:45 AM EDT Narrative Authorizing ProviderResult TypeResult StatusHib H Eliza VALDIVIA BLOOD ORDERABLESFinal ResultPerforming OrganizationAddressCity/State/ZIP CodePhone Number [facility] [address] [place] [address], * Magnesium (07/22/2025 6:02 AM EDT)ComponentValueRef RangeTest MethodAnalysis TimePerformed AtPathologist SignatureMAGNESIUM1.81.8 - 2.6 mg/dL07/22/2025 7:25 AM [facility] LABORATORYSpecimen (Source)Anatomical Location / LateralityCollection Method / VolumeCollection TimeReceived Time BloodVenous blood / UnknownVenipuncture / Ihvpxgm9507/22/2025 6:02 AM EDT 07/22/2025 6:45 AM EDT Narrative Authorizing ProviderResult TypeResult StatusHibah H Isjackieil MDLAB BLOOD ORDERABLESFinal ResultPerforming OrganizationAddressCity/State/ZIP CodePhone Number [facility] [address] [place] [address], * (ABNORMAL) Basic Metabolic Panel (07/22/2025 6:02 AM EDT)ComponentValueRef RangeTest MethodAnalysis TimePerformed AtPathologist AunkpyewaCDILEU805110 - 146 mmol/L1 7:25 AM [facility] LABORATORYPOTASSIUM 4.33.5 - 5.0 mmol/L1 7:25 AM [facility] GLOEPKWJ22175 - 109 mmol/L1 7:25 AM [facility] LABORATORYCARBON KQHAJKI05(L)22 - 32 mmol/L1 7:25 AM [facility] LABORATORYANION GAP85 - 15 mmol/L1 7:25 AM EDT [facility] LABORATORYBLOOD UREA SGRSRRIJ05(H)5 - 27 mg/dL 07/22/2025 7:25 AM [facility] LABORATORYCREATININE0.890.60 - 1.30 mg/dL07/22/2025 7:25 AM [facility] LABORATORYComment: METHOD TRACEABLE TO IDMS WHYISPQWVPLBCVZ605(H)65 - 99 mg/dL07/22/2025 7:25 AM [facility] LABORATORYCALCIUM7.9(L)8.5 - 10.5 mg/dL07/22/2025 7:25 AM [facility] LABORATORYEGFR Non-Race Mssjglrno66>=60 ml/min/1.73sq.m1 7:25 AM [facility] Comment: Reported eGFR is based on the CKD-EPI 2020 equation that does not use a race coefficient. Specimen (Source)Anatomical Location / LateralityCollection Method / Volume Collection TimeReceived TimeBloodVenous blood / UnknownVenipuncture / Unknown 07/22/2025 6:02 AM EDT1 6:45 AM EDT Narrative Authorizing ProviderResult TypeResult StatusHibah H Ismail MDLAB BLOOD ORDERABLESFinal ResultPerforming OrganizationAddressCity/State/ZIP CodePhone Number [facility] [address] [place] [address], * PST TOP (07/21/2025 10:54 PM EDT)ComponentValueRef RangeTest MethodAnalysis TimePerformed AtPathologist SignatureExtra TubeAuto Bcovbuwi87/24/2025 12:03 AM [facility] LABORATORYSpecimen (Source)Anatomical Location / LateralityCollection Method / VolumeCollection TimeReceived TimeBloodVenous blood / Rmogbpt2507/21/2025 10:54 PM EDT1 11:06 PM EDT Narrative Authorizing ProviderResult TypeResult StatusWinter [facility] Is[facility] [employer] BLOOD ORDERABLESFinal ResultPerforming OrganizationAddressCity/State/ZIP CodePhone Number [facility] [address] [place] [address], [place] [phone] * (ABNORMAL) Hemoglobin and hematocrit, blood (07/21/2025 10:54 PM EDT)Component ValueRef RangeTest MethodAnalysis TimePerformed AtPathologist Signature Hibzficxdu06.5(L)13 - 17 g/dL07/21/2025 11:23 PM [facility] MBBVMHIIZFExbxvxeftz27.3(L)39 - 50 %07/21/2025 11:23 PM [facility] LABORATORYSpecimen (Source)Anatomical Location / LateralityCollection Method / VolumeCollection TimeReceived TimeBloodVenous blood / Unknown Venipuncture / Kmyoylg6007/21/2025 10:54 PM EDT1 11:06 PM EDT Narrative Authorizing ProviderResult TypeResult [facility] IsPrimocareil [employer] BLOOD ORDERABLESFinal ResultPerforming OrganizationAddressCity/State/ZIP CodePhone Number [facility] [address] [place] [address], [place] [phone] * (ABNORMAL) Bedside Glucose *Place/Obtain serum glucose if >500 per glucometer. (07/21/2025 9:08 PM EDT)ComponentValueRef RangeTest MethodAnalysis Time Performed AtPathologist SignatureBedside Glucose (POC)181(H)65 - 99 mg/dL 07/21/2025 9:10 PM [facility] LABORATORYSpecimen (Source)Anatomical Location / LateralityCollection Method / VolumeCollection TimeReceived Time arterial/kudbjzucr16/23/2025 9:08 PM EDT1 9:10 PM EDT Narrative Authorizing ProviderResult TypeResult StatusHibah H Ismail MDPOINT OF CARE TEST ORDERABLESFinal ResultPerforming OrganizationAddressCity/State/ZIP CodePhone Number [facility] [address] [place] [address], [place] * (ABNORMAL) Lower resp/sputum culture inc gram stain: Patient acquired (07/21/2025 4:47 PM EDT)ComponentValueRef RangeTest MethodAnalysis Time Performed AtPathologist SignatureCULTURE RESULTSNORMAL RESPIRATORY ASTON 07/23/2025 10:40 AM [facility] LABORATORYGRAM STAIN10 to 24 White Blood Cells/LPF(A)07/23/2025 10:40 AM [facility] LABORATORYGRAM STAIN10 to 24 Squamous Epithelial Cells/LPF(A)07/23/2025 10:40 AM [facility] LABORATORYGRAM STAIN0 to 1 Ciliated Epithelial Cells/LPF(A)07/23/2025 10:40 AM [facility] LABORATORYGRAM STAINModerate Gram positive cocci in pairs(A)07/23/2025 10:40 AM [facility] LABORATORYGRAM STAINFew Gram positive cocci in chains(A) 07/23/2025 10:40 AM [facility] LABORATORYGRAM STAINFew Gram positive bacilli(A)07/23/2025 10:40 AM [facility] Specimen (Source)Anatomical Location / LateralityCollection Method / Volume Collection TimeReceived TimeSputumLung structure / Bgugnyz3307/21/2025 4:47 PM EDT1 5:13 PM EDT Narrative Authorizing ProviderResult TypeResult StatusHeather L Martín CLINICAL APPLICATIONS SPECIALIST-HOME CARE AND HOME HEALTH AIDES TEACHER MICROBIOLOGY - GENERAL ORDERABLESFinal ResultPerforming OrganizationAddress City/State/ZIP CodePhone Number [facility] [address] [place] [address], [place] [phone] * (ABNORMAL) CBC auto differential (07/21/2025 4:41 PM EDT)ComponentValueRef RangeTest MethodAnalysis TimePerformed AtPathologist SignatureWBC6.54 - 11 x10E9/L10 5:03 PM [facility] LABORATORYRBC Count3.62 (L)4.1 - 5.7 X10E12/L10 5:03 PM [facility] Lcrawwijsl39.6(L)13 - 17 g/dL07/21/2025 5:03 PM [facility] HNUBVUXBOYYayaejonna94.1(L)39 - 50 %07/21/2025 5:03 PM [facility] IEUCCAVKYMWSB7981 - 100 fL07/21/2025 5:03 PM [facility] XOPWRREESLLVX19.127 - 34 pg07/21/2025 5:03 PM [facility] FAHLSLPTVPXEBL22.132 - 36 g/dL07/21/2025 5:03 PM [facility] QQXVAUAJKNZGC25.0(H)11.5 - 15 %07/21/2025 5:03 PM [facility] LABORATORYPlatelet Zbgzp407(L)150 - 450 X10E9/L1 5:03 PM [facility] LABORATORYMPV8.47 - 12 fL07/21/2025 5:03 PM [facility] LABORATORYNeutrophils %74.6%07/21/2025 5:03 PM [facility] LABORATORYLymphocytes %11.9%07/21/2025 5:03 PM [facility] LABORATORYMonocytes %11.1%07/21/2025 5:03 PM [facility] LABORATORYEosinophils %2.1%07/21/2025 5:03 PM [facility] LABORATORYBasophils %0.3%07/21/2025 5:03 PM [facility] LABORATORYNeutrophils Absolute (A)4.91.5 - 6.6 10*3/uL 07/21/2025 5:03 PM [facility] LABORATORYLymphocytes Absolute 0.8(L)1.0 - 3.5 10*3/uL10/ 5:03 PM [facility] LABORATORYMonocytes Absolute0.70.0 - 0.9 10*3/uL07/21/2025 5:03 PM [facility] LABORATORYEosinophils Absolute0.10.0 - 0.4 10*3/uL07/21/2025 5:03 PM [facility] LABORATORYBasophils Absolute0.00.0 - 0.2 10*3/uL07/21/2025 5:03 PM [facility] LABORATORYDifferential TypeAUTOMATED IRZNJSYWEMGR46/23/2025 5:03 PM [facility] LABORATORYSpecimen (Source)Anatomical Location / LateralityCollection Method / VolumeCollection TimeReceived TimeBloodVenous blood / UnknownVenipuncture / Cfdlzbc7907/21/2025 4:41 PM EDT1 4:51 PM EDT Narrative Authorizing ProviderResult TypeResult StatusHibah H Ismail MDLAB BLOOD ORDERABLESFinal ResultPerforming OrganizationAddressCity/State/ZIP CodePhone Number [facility] [address] [place] [address], [place] [phone] * (ABNORMAL) Bedside Glucose *Place/Obtain serum glucose if >500 per glucometer. (07/21/2025 3:56 PM EDT)ComponentValueRef RangeTest MethodAnalysis Time Performed AtPathologist SignatureBedside Glucose (POC)138(H)65 - 99 mg/dL 07/21/2025 4:21 PM [facility] LABORATORYSpecimen (Source)Anatomical Location / LateralityCollection Method / VolumeCollection TimeReceived Time arterial/faowokuhd63/23/2025 3:56 PM EDT1 4:21 PM EDT Narrative Authorizing ProviderResult TypeResult StatusHibah H Ismail MDPOINT OF CARE TEST ORDERABLESFinal ResultPerforming OrganizationAddressCity/State/ZIP CodePhone Number [facility] [address] [place] [address], [place] * Magnesium (07/21/2025 2:01 PM EDT)ComponentValueRef RangeTest MethodAnalysis TimePerformed AtPathologist SignatureMAGNESIUM1.91.8 - 2.6 mg/dL07/21/2025 3:19 PM [facility] LABORATORYSpecimen (Source)Anatomical Location / LateralityCollection Method / VolumeCollection TimeReceived Time BloodVenous blood / UnknownVenipuncture / Otwdhvm9507/21/2025 2:01 PM EDT 07/21/2025 2:29 PM EDT Narrative Authorizing ProviderResult TypeResult StatusHibah H Ismadaja MDLAB BLOOD ORDERABLESFinal ResultPerforming OrganizationAddressCity/State/ZIP CodePhone Number [facility] [address] [place] [address], * (ABNORMAL) Basic Metabolic Panel (07/21/2025 2:01 PM EDT)ComponentValueRef RangeTest MethodAnalysis TimePerformed AtPathologist FnpatyghuYKEZZN828263 - 146 mmol/L1 3:19 PM [facility] LABORATORYPOTASSIUM 4.33.5 - 5.0 mmol/L1 3:19 PM [facility] KPAUBTRU06906 - 109 mmol/L1 3:19 PM [facility] LABORATORYCARBON NTTIDSM73(L)22 - 32 mmol/L1 3:19 PM [facility]ORYANION JDT231 - 15 mmol/L1 3:19 PM EDT [facility]ATORYBLOOD UREA [id number] - 27 mg/dL07/21/2025 3:19 PM [facility]ATORYCREATININE0.920.60 - 1.30 mg/dL 07/21/2025 3:19 PM [facility]ATORYComment:METHOD TRACEABLE TO IDMS [id number](H)65 - 99 mg/dL07/21/2025 3:19 PM EDT [facility] LABORATORYCALCIUM8.2(L)8.5 - 10.5 mg/dL07/21/2025 3:19 PM [facility]ORYEGFR Non-Race Kdbgkmejg38>=60 ml/min/1.73sq.m1 3:19 PM [facility] Comment: Reported eGFR is based on the CKD-EPI 2020 equation that does not use a race coefficient. Specimen (Source)Anatomical Location / LateralityCollection Method / Volume Collection TimeReceived TimeBloodVenous blood / UnknownVenipuncture / Unknown 07/21/2025 2:01 PM EDT1 2:29 PM EDT Narrative Authorizing ProviderResult TypeResult StatusHibLehigh Valley Hospital - [facility] Isnyil MDLAB BLOOD ORDERABLESFinal ResultPerforming OrganizationAddressCity/State/ZIP CodePhone Number [facility] [address] [place] [address], [place] [phone] * (ABNORMAL) Bedside Glucose *Place/Obtain serum glucose if >500 per glucometer. (07/21/2025 1:56 PM EDT)ComponentValueRef RangeTest MethodAnalysis Time Performed AtPathologist SignatureBedside Glucose (POC)100(H)65 - 99 mg/dL 07/21/2025 2:00 PM [facility]ATORYSpecimen (Source)Anatomical Location / LateralityCollection Method / VolumeCollection TimeReceived Time arterial/nnryonsje79/23/2025 1:56 PM EDT1 2:00 PM EDT Narrative Authorizing ProviderResult TypeResult Status[facility] Ismail MDPOINT OF CARE TEST ORDERABLESFinal ResultPerforming OrganizationAddressCity/State/ZIP CodePhone Number [facility] [address] [place] [address], [place] * Legionella antigen, urine (07/21/2025 9:47 AM EDT)ComponentValueRef RangeTest MethodAnalysis TimePerformed AtPathologist SignatureLEGIONELLA URINE AG Negative, No L. pneumophila serogroup 1 AntigenNegative, No L. pneumophila serogroup 1 Wrjjbct1807/21/2025 10:54 AM [facility] Specimen (Source)Anatomical Location / LateralityCollection Method / Volume Collection TimeReceived TimeUrineUrine / Caumfsq5007/21/2025 9:47 AM EDT 07/21/2025 10:07 AM EDT Narrative Authorizing ProviderResult TypeResult StatusHeather Nora Resendiz CLINICAL APPLICATIONS SPECIALIST-CNPURINE ORDERABLESFinal ResultPerforming OrganizationAddressCity/State/ZIP CodePhone Number [facility] [address] [place] [address], * S Pneumoniae AG, urine (07/21/2025 9:47 AM EDT)ComponentValueRef RangeTest MethodAnalysis TimePerformed AtPathologist SignatureS PNEUMONIAE AG UNegative Gagbhsct64/23/2025 10:54 AM [facility] LABORATORYSpecimen (Source)Anatomical Location / LateralityCollection Method / VolumeCollection TimeReceived TimeUrineUrine / Oucpuam4807/21/2025 9:47 AM EDT1 10:07 AM EDT Narrative Authorizing ProviderResult TypeResult StatusHeather Nora Resendiz CLINICAL APPLICATIONS SPECIALIST-CNPURINE ORDERABLESFinal ResultPerforming OrganizationAddressCity/State/ZIP CodePhone Number [facility] [address] [place] [address], * (ABNORMAL) Urinalysis (07/21/2025 9:46 AM EDT)ComponentValueRef RangeTest MethodAnalysis TimePerformed AtPathologist SignatureCOLORYellowYellow 07/21/2025 12:10 PM [facility] LABORATORYTURBIDITYClearClear 07/21/2025 12:10 PM [facility] LABORATORYSPECIFIC GRAVITY 1.0201.003 - 1.9733407/21/2025 12:10 PM [facility] CSPYLXVTbvnvpowLrilnahn76/23/2025 12:10 PM [facility] LABORATORYPH,URINE6.05.0 - 8.510 12:10 PM [facility] LABORATORYLEUKOCYTE ODPEBCWXIsfzqkezQkjguxzj78/23/2025 12:10 PM [facility] LABORATORYComment:High Concentrations of Glucose May Decrease the Reactivity of the Dipstick Leukocyte Test Pad.SLBXLFT40 mg/dL(A) Ulrxbktl98/23/2025 12:10 PM [facility] LABORATORYKETONES (URINE)NtfpntfmLmnkjsdh48/23/2025 12:10 PM [facility] LABORATORYUROBILINOGEN<1.1 eu/dL<1.1 eu/dL07/21/2025 12:10 PM [facility] LABORATORYBILIRUBIN (URINE)XvckpfrdOgolgunr42/23/2025 12:10 PM [facility] LABORATORYBLOOD/HGBLarge(A)Egpqedqm18/23/2025 12:10 PM [facility] LABORATORYR.B.TKCIY087(H)0 - 510 12:10 PM [facility]ORATORYSQUAMOUS EPITHELIUM<10 - 5 07/21/2025 12:10 PM [facility] LABORATORYW.B.CELLS40 - 5 07/21/2025 12:10 PM [facility] LABORATORYGLUCOSE (URINE)>1000 mg/dL(A)Fltesylt42/23/2025 12:10 PM [facility] Specimen (Source)Anatomical Location / LateralityCollection Method / Volume Collection TimeReceived TimeUrineUrine / Plbdcin5007/21/2025 9:46 AM EDT 07/21/2025 11:14 AM EDT Narrative Authorizing ProviderResult TypeResult StatusHibterry MCCRARY ORDERABLES Final ResultPerforming OrganizationAddressCity/State/ZIP CodePhone Number [facility] [address] [place] [address], [place] [phone] * APTT (07/21/2025 9:06 AM EDT)ComponentValueRef RangeTest MethodAnalysis Time Performed AtPathologist CxfsyslpiTNPV7663 - 37 sec07/21/2025 9:56 AM [facility] LABORATORYSpecimen (Source)Anatomical Location / Laterality Collection Method / VolumeCollection TimeReceived TimeBloodVenous blood / UnknownVenipuncture / Iqmzyot6507/21/2025 9:06 AM EDT1 9:33 AM EDT Narrative Authorizing ProviderResult TypeResult StatusHibterry VALDIVIA BLOOD ORDERABLESFinal ResultPerforming OrganizationAddressCity/State/ZIP CodePhone Number [facility] [address] [place] [address], [place] [phone] * (ABNORMAL) Protime & INR (07/21/2025 9:06 AM EDT)ComponentValueRef RangeTest MethodAnalysis TimePerformed AtPathologist QreplwhmaERTQWWM95.7(H)9.8 - 13.2 sec07/21/2025 9:56 AM [facility] LABORATORYINR2.2(H)0.9 - 1.2 07/21/2025 9:56 AM [facility] LABORATORYSpecimen (Source) Anatomical Location / LateralityCollection Method / VolumeCollection Time Received TimeBloodVenous blood / UnknownVenipuncture / Hbnizau8707/21/2025 9:06 AM EDT1 9:33 AM EDT Narrative Authorizing ProviderResult TypeResult StatusHib Danial [employer] BLOOD ORDERABLESFinal ResultPerforming OrganizationAddressCity/State/ZIP CodePhone Number [facility] [address] [address] [place] [address], * Phosphorus (07/21/2025 5:47 AM EDT)ComponentValueRef RangeTest MethodAnalysis TimePerformed AtPathologist SignaturePHOSPHORUS3.02.4 - 4.9 mg/dL07/21/2025 9:04 AM [facility] LABORATORYSpecimen (Source)Anatomical Location / LateralityCollection Method / VolumeCollection TimeReceived Time BloodVenous blood / UnknownVenipuncture / Dfudqre4307/21/2025 5:47 AM EDT 07/21/2025 6:08 AM EDT Narrative Authorizing ProviderResult TypeResult StatusHib Danial [employer] BLOOD ORDERABLESFinal ResultPerforming OrganizationAddressCity/State/ZIP CodePhone Number [facility] [address] [place] [address], * Procalcitonin (07/21/2025 5:47 AM EDT)ComponentValueRef RangeTest Method Analysis TimePerformed AtPathologist SignaturePROCALCITONIN<0.05<0.05 ng/mL 07/21/2025 8:25 AM [facility] LABORATORYSpecimen (Source) Anatomical Location / LateralityCollection Method / VolumeCollection Time Received TimeBloodVenous blood / UnknownVenipuncture / Yrnhacy3507/21/2025 5:47 AM EDT1 6:08 AM EDT Narrative [facility] - 07/21/2025 8:25 AM EDT <0.50 ng/mL - Low risk of severe sepsis and/or septic shock. <2.00 ng/mL - Recommend retesting within 6-24 hours. >2.00 ng/mL - High risk of sepsis and/or septic shock. Authorizing ProviderResult TypeResult StatusHeather L Martín CLINICAL APPLICATIONS SPECIALIST-[facility] BLOOD ORDERABLESFinal ResultPerforming OrganizationAddressCity/State/ZIP Code Phone Number [facility] [address] [place] [address], * Lavender Top (07/21/2025 5:47 AM EDT)ComponentValueRef RangeTest Method Analysis TimePerformed AtPathologist SignatureExtra TubeAuto Resulted 07/21/2025 7:01 AM [facility]ORATORYSpecimen (Source) Anatomical Location / LateralityCollection Method / VolumeCollection Time Received TimeBloodVenous blood / Axjpdss8507/21/2025 5:47 AM EDT1 6:08 AM EDT Narrative Authorizing ProviderResult TypeResult StatusDishai Rodriguez [facility] BLOOD ORDERABLESFinal ResultPerforming OrganizationAddressCity/State/ZIP CodePhone Number [facility] [address] [place] [address], [place] [phone] * (ABNORMAL) Potassium (07/21/2025 5:47 AM EDT)ComponentValueRef RangeTest MethodAnalysis TimePerformed AtPathologist SignaturePOTASSIUM3.3(L)3.5 - 5.0 mmol/L1 6:39 AM [facility] LABORATORYSpecimen (Source)Anatomical Location / LateralityCollection Method / VolumeCollection TimeReceived TimeBloodVenous blood / UnknownVenipuncture / Aqubwlz1107/21/2025 5:47 AM EDT1 6:08 AM EDT Narrative Authorizing ProviderResult TypeResult StatusVianca Rodriguez MDLAB BLOOD ORDERABLESFinal ResultPerforming OrganizationAddressCity/State/ZIP CodePhone Number [facility] [address] [place] [address], * ABO Rh Repeat (07/21/2025 1:39 AM EDT)Specimen (Source)Anatomical Location / LateralityCollection Method / VolumeCollection TimeReceived Time07/21/2025 1:39 AM EDT Narrative Authorizing ProviderResult TypeResult StatusVianca Rodriguez MDBLOOD BANK TEST ORDERABLESFinal ResultPerforming OrganizationAddressCity/State/ZIP CodePhone Number [facility] * SST TOP (07/20/2025 8:03 PM EDT)ComponentValueRef RangeTest MethodAnalysis TimePerformed AtPathologist SignatureExtra TubeAuto Emsjmsuk99/22/2025 10:01 PM [facility]ORATORYSpecimen (Source)Anatomical Location / LateralityCollection Method / VolumeCollection TimeReceived TimeBloodVenous blood / Nbjbple7507/20/2025 8:03 PM EDT1 8:22 PM EDT Narrative Authorizing ProviderResult TypeResult StatusVianca Rodriguez MDLAB BLOOD ORDERABLESFinal ResultPerforming OrganizationAddressCity/State/ZIP CodePhone Number [facility] [address] [place] [address], * ABO Rh Repeat (07/20/2025 8:03 PM EDT)ComponentValueRef RangeTest Method Analysis TimePerformed AtPathologist VochkycjuRXVT49/23/2025 1:38 AM EDTTTH BB - ZTYPZITOTUzfcpnte38/23/2025 1:38 AM EDTTTH BB - WELLSKYSpecimen (Source) Anatomical Location / LateralityCollection Method / VolumeCollection Time Received TimeBloodVenous blood / UnknownVenipuncture / Mcotzra8407/20/2025 8:03 PM EDT1 9:18 PM EDT Narrative Authorizing ProviderResult TypeResult StatusVianca Rodriguez MDBLAgiliance BANK TEST ORDERABLESFinal ResultPerforming OrganizationAddressty/State/ZIP CodePhone Number [facility] [address] [place] [address], [place] * Type and screen (07/20/2025 7:11 PM EDT)ComponentValueRef RangeTest Method Analysis TimePerformed AtPathologist VpgzvosaqUHKY16/22/2025 8:07 PM EDTTTH BB - OBYUNALXSHwlplipl96/22/2025 8:07 PM EDTTTH BB - BENNETTKYAntibody Screen Eyxuksyd02/22/2025 8:07 PM EDTTTH BB - WELLSKYSpecimen (Source)Anatomical Location / LateralityCollection Method / VolumeCollection TimeReceived Time BloodVenous blood / UnknownVenipuncture / Hrujxyk3207/20/2025 7:11 PM EDT 07/20/2025 7:25 PM EDT Narrative Authorizing ProviderResult TypeResult StatusVianca Rodriguez MDAgiliance BANK TEST ORDERABLESEdited Result - FinalPerforming OrganizationAddressCity/State/ZIP Code Phone Number [facility] Saw MELENDEZ [address] [place] [address], [place] * APTT (07/20/2025 7:11 PM EDT)ComponentValueRef RangeTest MethodAnalysis Time Performed AtPathologist SidrokatpLDVG2151 - 37 sec07/20/2025 8:04 PM [facility] LABORATORYSpecimen (Source)Anatomical Location / Laterality Collection Method / VolumeCollection TimeReceived TimeBloodVenous blood / UnknownVenipuncture / Fmrmmwg4707/20/2025 7:11 PM EDT1 7:20 PM EDT Narrative Authorizing ProviderResult TypeResult StatusVianca VALDIVIA BLOOD ORDERABLESFinal ResultPerforming OrganizationAddressty/[facility]/ZIP CodePhone Number [facility] [address] [place] [address], [place] [phone] * (ABNORMAL) Protime & INR (07/20/2025 7:11 PM EDT)ComponentValueRef RangeTest MethodAnalysis TimePerformed AtPathologist NpnqdbghsJNBOFKX91.6(H)9.8 - 13.2 sec07/20/2025 8:04 PM [facility] LABORATORYINR2.3(H)0.9 - 1.2 07/20/2025 8:04 PM [facility] LABORATORYSpecimen (Source) Anatomical Location / LateralityCollection Method / VolumeCollection Time Received TimeBloodVenous blood / UnknownVenipuncture / Bsexkrj7207/20/2025 7:11 PM EDT1 7:20 PM EDT Narrative Authorizing ProviderResult TypeResult StatusVianca VALDIVIA BLOOD ORDERABLESFinal ResultPerforming OrganizationAddressCity/State/ZIP CodePhone Number [facility] [address] [place] [address], * (ABNORMAL) Basic Metabolic Panel (07/20/2025 7:11 PM EDT)ComponentValueRef RangeTest MethodAnalysis TimePerformed AtPathologist HpbqcddjvJGRMVK831968 - 146 mmol/L1 7:55 PM [facility] LABORATORYPOTASSIUM 3.4(L)3.5 - 5.0 mmol/L1 7:55 PM [facility] AVYKJCCUUGSFDRWKLB20555 - 109 mmol/L1 7:55 PM [facility] LABORATORYCARBON MZFMHTC4941 - 32 mmol/L1 7:55 PM [facility] LABORATORYANION GAP95 - 15 mmol/L1 7:55 PM EDT [facility] LABORATORYBLOOD UREA JEDUPELS32(H)5 - 27 mg/dL 07/20/2025 7:55 PM [facility] LABORATORYCREATININE1.070.60 - 1.30 mg/dL07/20/2025 7:55 PM [facility] LABORATORYComment: METHOD TRACEABLE TO IDMS HBNHRYHIEGWNFSL145(H)65 - 99 mg/dL07/20/2025 7:55 PM [facility] LABORATORYCALCIUM8.4(L)8.5 - 10.5 mg/dL07/20/2025 7:55 PM [facility] LABORATORYEGFR Non-Race Cqsvwaqkt39>=60 ml/min/1.73sq.m1 7:55 PM [facility] Comment: Reported eGFR is based on the CKD-EPI 2020 equation that does not use a race coefficient. Specimen (Source)Anatomical Location / LateralityCollection Method / Volume Collection TimeReceived TimeBloodVenous blood / UnknownVenipuncture / Unknown 07/20/2025 7:11 PM EDT1 7:20 PM EDT Narrative Authorizing ProviderResult TypeResult StatusDishai VALDIVIA BLOOD ORDERABLESFinal ResultPerforming OrganizationAddressCity/State/ZIP CodePhone Number [facility] [address] [place] [address], * (ABNORMAL) CBC auto differential (07/20/2025 7:11 PM EDT)ComponentValueRef RangeTest MethodAnalysis TimePerformed AtPathologist SignatureWBC7.34 - 11 x10E9/L1 7:26 PM [facility] LABORATORYRBC Count3.76 (L)4.1 - 5.7 X10E12/L1 7:26 PM [facility] Vkjqofowdf40.9(L)13 - 17 g/dL07/20/2025 7:26 PM [facility] ITWJSHMTGELijbzvuacf02.0(L)39 - 50 %07/20/2025 7:26 PM [facility] IGUYAUCURVTAU6537 - 100 fL07/20/2025 7:26 PM [facility] FLEMIHKYVQJSY08.727 - 34 pg07/20/2025 7:26 PM [facility] TKULFXFDIKQAIC24.032 - 36 g/dL07/20/2025 7:26 PM [facility] WEPXICUERQAGK85.0(H)11.5 - 15 %07/20/2025 7:26 PM [facility] LABORATORYPlatelet Gkrya173(L)150 - 450 X10E9/L1 7:26 PM EDT [facility] LABORATORYMPV8.27 - 12 fL07/20/2025 7:26 PM [facility] LABORATORYNeutrophils %73.8%07/20/2025 7:26 PM [facility] LABORATORYLymphocytes %11.4%07/20/2025 7:26 PM [facility] LABORATORYMonocytes %13.3%07/20/2025 7:26 PM [facility] LABORATORYEosinophils %1.3%07/20/2025 7:26 PM [facility] LABORATORYBasophils %0.2%07/20/2025 7:26 PM [facility] LABORATORYNeutrophils Absolute (A)5.41.5 - 6.6 10*3/uL 07/20/2025 7:26 PM [facility] LABORATORYLymphocytes Absolute 0.8(L)1.0 - 3.5 10*3/uL07/20/2025 7:26 PM [facility] LABORATORYMonocytes Absolute1.0(H)0.0 - 0.9 10*3/uL07/20/2025 7:26 PM EDT [facility] LABORATORYEosinophils Absolute0.10.0 - 0.4 10*3/uL 07/20/2025 7:26 PM [facility] LABORATORYBasophils Absolute0.0 0.0 - 0.2 10*3/uL07/20/2025 7:26 PM [facility] Differential TypeAUTOMATED QMDWBODTMARR68/22/2025 7:26 PM [facility] LABORATORYSpecimen (Source)Anatomical Location / LateralityCollection Method / VolumeCollection TimeReceived TimeBloodVenous blood / Unknown Venipuncture / Gldjgbd6407/20/2025 7:11 PM EDT1 7:20 PM EDT Narrative Authorizing ProviderResult TypeResult StatusDishai VALDIVIA BLOOD ORDERABLESFinal ResultPerforming OrganizationAddressCity/State/ZIP CodePhone Number [facility] [address] [place] [address], * X-ray chest 1 view (07/20/2025 7:07 PM EDT)Anatomical RegionLateralityModality Body, ChestN/AComputed RadiographySpecimen (Source)Anatomical Location / LateralityCollection Method / VolumeCollection TimeReceived Time07/20/2025 7:45 PM EDT Narrative 07/20/2025 7:46 PM EDT Single view chest History: Dyspnea. Pneumonia. Comparison: 06/28/2024 Findings: Stable cardiomediastinal silhouette. Patchy left basilar opacity with trace effusions. Perihilar edema. No pneumothorax. Distention of bowel in the upper abdomen; correlate clinically. Impression: 1. ??Left basilar opacity, consistent with pneumonia in the appropriate context. Recommend follow-up after treatment. 2. ??Trace effusions. 3. ??Gaseous distention of upper abdominal bowel; correlate clinically Finalized by Francisco Cheney MD on 07/20/2025 7:46 PM Procedure Note Francisco Cheney MD - 07/20/2025 Single view chest History: Dyspnea. Pneumonia. Comparison: 06/28/2024 Findings: Stable cardiomediastinal silhouette. Patchy left basilar opacity withtrace effusions. Perihilar edema. No pneumothorax. Distention of bowel inthe upper abdomen; correlate clinically. Impression: 1. Left basilar opacity, consistent with pneumonia in the appropriatecontext. Recommend follow-up after treatment. 2. Trace effusions. 3. Gaseous distention of upper abdominal bowel; correlate clinically Finalized by Francisco Cheney MD on 07/20/2025 7:46 PM Authorizing ProviderResult TypeResult StatusVianca VILLEGAS DIAGNOST[facility]AGING ORDERABLESFinal Result documented in this encounter Visit Diagnoses Diagnosis Hemoptysis- Primary documented in this encounter Admitting Diagnoses Diagnosis Hemoptysis documented in this encounter Administered Medications Medication OrderMAR ActionAction DateDoseRateSite atorvastatin (LIPITOR) tablet 10 mg 10 mg, oral, Daily, First dose on Fri07/20/25 at 2015, Look-alike/sound-alike medication - verify indication for use. Given07/25/2025 8:19 AM EDT10 niQgdgf1107/24/2025 8:16 AM EDT10 zxQdtuq3907/23/2025 9:18 AM EDT10 mg brimonidine (ALPHAGAN) 0.2 % ophthalmic solution 1 drop 1 drop, both eyes, Daily, First dose on Fri07/21/25 at 1400 Given07/25/2025 8:19 AM EDT1 dropCaregiver/Parent Kdsugriqqpca78/26/2025 8:21 AM EDT1 dropCaregiver/Parent Eqkpdkaptmka51/25/2025 9:00 AM EDT1 drop cefTRIAXone (ROCEPHIN) 1,000 mg in sodium chloride 0.9 % 50 mL IVPB W/ADAPTER 1,000 mg, intravenous, at 100 mL/hr, Administer over 30 Minutes, Every 24 hours, First dose on Fri07/20/25 at 2100, For Vial-2-Bag: Attach bag and vial to adapter - Use immediately after activating;dissolve drug prior to administration., Indication: Community-acquired pneumonia New Bag07/24/2025 8:37 PM EDT1,000 mg100 mL/hrNew Bag07/23/2025 8:01 PM EDT1,000 mg100 mL/hrNew Bag07/22/2025 8:21 PM EDT1,000 mg100 mL/hr dextrose (GLUTOSE) 40 % gel 15 g 15 g, oral, As needed, low blood sugar, blood glucose less than 70 mg/dL, Starting on Fri07/21/25 at 1343, If patient conscious and taking PO. If blood glucose is not greater than 70 mg/dL after initial treatment, repeat treatment. dextrose 5 % (D5W) infusion 100 mL/hr, intravenous, Continuous PRN, blood glucose less than 70 mg/dL, Starting on Fri07/21/25 at 1343, For 365 days, Use immediately following dextrose 50% or glucagon treatment for patients whoare unconscious or NPO. Contact prescriber for additional orders. If blood glucose is not greater than 70 mg/dL after initial treatment, repeat treatment. dextrose 50 % in water (D50W) 50% solution 25 mL 25 mL, intravenous, As needed, low blood sugar, blood glucose less than 70 mg/dL and unconscious orNPO with IV access, Starting on Fri07/21/25 at 1343, Push over 1-3 minutes STAT. If conscious and not NPO, immediately follow with meal tray or high protein (7 grams) snack if tray not available. IfNPO, initiate 5% dextrose in water at 100 mL/hr and contact prescriber for additional orders. If blood glucose is not greater than 70 mg/dL after initial treatment, repeat treatment. VESICANT (RED) Warning: HYPERTONIC solution. finasteride (PROSCAR) tablet 5 mg 5 mg, oral, Daily, First dose on Fri07/20/25 at 2014, Look-alike/sound-alike medication - verify indication for use. Crushed or broken tablets should not be handled by a woman who is or maybecome because of the potential for absorption and the subsequent potential risk to fetus. Given07/25/2025 8:19 AM EDT5 paGgard7907/24/2025 8:16 AM EDT5 vwGejjt5407/23/2025 9:18 AM EDT5 mg glucagon HCL injection 1 mg 1 mg, intramuscular, As needed, low blood sugar, blood glucose less than 70 mg/dL and unconscious or NPO without IV access., Starting on Fri07/21/25 at 1343, If conscious and not NPO, immediately follow with meal tray or high protein (7Grams) snack if tray not available. If NPO, initiate IV 5% Dext deniz/Water at 100 mL/hr and contact prescriber for additional orders. If blood glucose is not greater than 70 mg/dL after initial treatment, repeat treatment. insulin lispro (HumaLOG) injection 1-4 Units 1-4 Units, subcutaneous, Nightly, First dose on Fri07/21/25 at 2200, Bedtime hyperglycemia dosing.For blood glucose 201-250 mg/dL, give 1 unit. For blood glucose 251-300 mg/dL, give 2 units. For blood glucose 301-350 mg/dL, give 3 units. For blood glucose 351-400 mg/dL, give 4 units. Give even ifNPO or meals skipped. Do NOT give more often than every 4 hours when NPO. Notify prescriber if blood glucose greater than 400 mg/dL. Look-alike/sound-alike medication - verify indication for use. Prime with 2 units of insulin prior to administration. Prandial/supplemental Insulin. Pre-filled pens stable 28 days at room temperature. Insulin lispro should be administered within 15 minutes before orimmediately after a meal. insulin lispro (HumaLOG) injection 1-5 Units 1-5 Units, subcutaneous, 3 times daily with meals, First dose on Farnaz 07/21/25 at 1345, Daytime hyperglycemia dosing. For blood glucose 151-200 mg/dL, give 1 unit. For blood glucose 201-250 mg/dL, give 2 units. For blood glucose 251-300 mg/dL, give 3 units. For blood glucose 301-350 mg/dL, give 4 units. For blood glucose 351-400 mg/dL, give 5 units. Give even if NPO or meals skipped. Do NOT give more often than every 4 hours when NPO. Notify prescriber if blood glucose greater than 400 mg/dL. Look-alike/sound-alike medication - verify indication for use. Prime with 2 units of insulin prior to administration. Prandial/supplemental Insulin. Pre-filled pens stable 28 days at room temperature. Insulin lispro should be administered within 15 minutes before or immediately after a meal. Given07/24/2025 8:17 AM EDT1 UnitsRight XeoWnagv02/25/2025 12:02 PM EDT2 Units Left BeyOgdfo37/24/2025 11:57 AM EDT1 UnitsRight Arm latanoprost (XALATAN) 0.005 % ophthalmic solution 1 drop 1 drop, both eyes, Nightly, First dose on Fri07/21/25 at 2200 Given07/24/2025 8:36 PM EDT1 tovnUvnsy13/25/2025 8:03 PM EDT1 dropGiven 07/22/2025 8:25 PM EDT1 drop levothyroxine (SYNTHROID, LEVOTHROID) tablet 75 mcg 75 mcg, oral, Daily, First dose on Fri07/21/25 at 0600, Look-alike/sound-alike medication. Verify indication for use Administer on empty stomach at least ONE hour before or TWO hours after food Enteral Feeding: For 7 days or less of tube feeding- do NOT hold tube feedings, after 7 days- hold tube feedings ONE hour before and ONE hour after administration DOES NOT APPLY TO NEONATES Monitor thyroid function tests weekly Given07/25/2025 5:27 AM EDT75 ykxKyeht17/26/2025 4:20 AM EDT75 mcgGiven 07/23/2025 6:07 AM EDT75 mcg magnesium sulfate IVPB 2000 mg/50 mL in iso-osmotic water (40 mg/mL premix) 2,000 mg, intravenous, at 25 mL/hr, Administer over 120 Minutes, As needed, Magnesium level 1.7 to 1.9 mg/dL, or Ionized Magnesium level 0.45 to 0.5 mmol/L., Starting on Farnaz 07/21/25 at 0838, Recheckmagnesium level 4 hours after infusion complete. With each magnesium result continue the replacement orders as needed. New Bag07/23/2025 9:26 AM EDT2,000 mg25 mL/hr magnesium sulfate IVPB 4000 mg/100 mL in iso-osmotic water (40 mg/mL premix) 4,000 mg, intravenous, at 25 mL/hr, Administer over 240 Minutes, As needed, Magnesium level 1.6 mg/dL or less, or Ionized Magnesium level 0.44 mmol/L or less, Starting on Farnaz 07/21/25 at 0838, Recheck magnesium level 4 hours after infusion complete. With each magnesium result continue the replacement orders as needed. metoclopramide (REGLAN) tablet 5 mg 5 mg, oral, 3 times daily, First dose on Farnaz 07/21/25 at 1400 Given07/25/2025 5:27 AM EDT5 efLfpni3207/24/2025 8:36 PM EDT5 gmMejme6007/24/2025 2:29 PM EDT5 mg metoprolol succinate XL (TOPROL XL) 24 hr tablet 100 mg 100 mg, oral, Daily, First dose on Fri07/20/25 at 2015, Look-alike/sound-alike medication - verifyindication for use. Do not crush or chew. Given07/25/2025 8:19 AM QPP406 moYfpqj2907/24/2025 8:16 AM VXP172 mgGiven 07/23/2025 9:18 AM [id number] mg pantoprazole (PROTONIX) EC tablet 40 mg 40 mg, oral, Daily, First dose on Fri07/20/25 at 2014, Look-alike/sound-alike medication - verify indication for use. If patient is receiving enteral feeding, consider alternative PPI or continue IVpantoprazole until the delayed-release tablet can be taken orally, Indication: GERD Given07/25/2025 8:19 AM EDT40 isHeuuf4307/24/2025 8:16 AM EDT40 qqSdnjq3707/23/2025 9:18 AM EDT40 mg potassium chloride (K-TAB,KLOR-CON) CR tablet 30-50 mEq 30-50 mEq, oral, As needed, Potassium Supplementation, Starting on Farnaz 07/21/25 at 0838, Progress to oral potassium replacement when patient tolerating oral intake. If dose administered, recheck potassium level 4 hours after last dose. For potassium level 3.4 to 3.8 mmol/L and GFR 30 mL/min or greater=30 mEq. For potassium level 3.1 to 3.3 mmol/L and GFR 30 mL/min or greater=40 mEq. For potassiumlevel 3 mmol/L or less and GFR 30 mL/min or greater=50 mEq. Do not crush or chew. Given07/23/2025 9:19 AM EDT30 mEq potassium chloride (KAYCIEL) 20 mEq/15 mL solution 30-50 mEq 30-50 mEq, oral, As needed, Potassium Supplementation, Starting on Farnaz 07/21/25 at 0838, Progress to oral potassium replacement when patient tolerating oral intake. If dose administered, recheck potassium level 4 hours after last dose. For potassium level 3.4 to 3.8 mmol/L and GFR 30 mL/min or greater=30 mEq. For potassium level 3.1 to 3.3 mmol/L and GFR 30 mL/min or greater=40 mEq. For potassiumlevel 3 mmol/L or less and GFR 30 mL/min or greater=50 mEq. Must dilute before use - Mix in 3-8 ounces of water or juice before administration When administering in feeding tube, flush before and after per policy and monitor potassium levels potassium chloride IVPB 10 mEq/100 mL in water (0.1 mEq/mL premix) 10 mEq, intravenous, at 100 mL/hr, Administer over 60 Minutes, As needed, POTASSIUM REPLACEMENT, Starting on Farnaz 07/21/25 at 0838, IV if unable to use oral/enteral with the current dosing strategies Potassium level 3 mmol/L or less administer Potassium Chloride 50 mEq Potassium level 3.1 to 3.3 mmol/L administer Potassium Chloride 40 mEq Potassium level 3.4 to 3.8 mmol/L administer Potassium Chloride 30 mEq Use central line when applicable. Recheck potassium level 1 hour after total IVPB infusion complete, With each potassium result continue the replacement orders as needed VESICANT (YELLOW) Infuse each 10 mEq over a minimum of 1 hour. Rate/Dose Zamkwl2007/21/2025 11:32 AM BFU500 mL/hrNew Bag07/21/2025 10:54 AM EDT10 dFv874 mL/hrNew Bag07/21/2025 9:49 AM EDT10 hQy887 mL/hr sod phos di, mono-K phos mono (K-PHOS NEUTRAL) 250 mg tablet 2 tablet 2 tablet, oral, As needed, for phosphorus level 2.3 mg/dL or less., Starting on Fri07/21/25 at 0838, If dose administered, recheck phosphorus level 4 hours after last dose. Look-alike/sound-alike medication - verify indication for use. Give with a full glass of water. sodium chloride 0.9 % flush 3 mL 3 mL, intravenous, Every 12 hours scheduled, First dose on Fri07/20/25 at 2100 Given07/25/2025 9:00 AM EDT3 gSMbzem5707/24/2025 8:35 PM EDT3 tHIyqjg1107/24/2025 8:21 AM EDT3 mL sodium phosphate 20 mmol in sodium chloride 0.9 % 100 mL IVPB 20 mmol, intravenous, at 26.7 mL/hr, Administer over 4 Hours, As needed, for phosphorus level 2.3 mg/dL or less., Starting on Fri07/21/25 at 0838, Administer over 4 hours via dedicated line (centralline). If administered, recheck phosphorus level 4 hours after infusion complete. Infuse using central line access. sodium phosphate 20 mmol in sodium chloride 0.9 % 250 mL IVPB 20 mmol, intravenous, at 42.8 mL/hr, Administer over 6 Hours, As needed, for phosphorus level 2.3 mg/dL or less, Starting on Fri07/21/25 at 0838, Administer over 6 hours via dedicated line (peripheral line). If administered, recheck phosphorus level 4 hours after infusion complete. tamsulosin (FLOMAX) 24 hr capsule 0.4 mg 0.4 mg, oral, Nightly, First dose on Fri07/20/25 at 2200, Do not crush or chew. Given07/24/2025 8:36 PM EDT0.4 fhGuhre7707/23/2025 8:05 PM EDT0.4 mgGiven 07/22/2025 8:25 PM EDT0.4 mg timolol (TIMOPTIC) 0.5 % ophthalmic solution 1 drop 1 drop, both eyes, Daily, First dose on Farnaz 07/21/25 at 1400 Given07/25/2025 8:19 AM EDT1 dropCaregiver/Parent Mtqnbeabmzzp01/26/2025 8:21 AM EDT1 dropCaregiver/Parent Zqxpktavhfwm01/25/2025 9:00 AM EDT1 drop tranexamic acid (CYKLOKAPRON) injection 500 mg 500 mg, nebulization, Every 8 hours PRN, Hemoptysis, Starting on Fri07/25/25 at 0830, Administer 500 mg (5 mL) over 15 minutes via jet nebulizer warfarin (COUMADIN) tablet 2.5 mg 2.5 mg, oral, Daily, First dose on Fri07/24/25 at 1600, Food-Drug Interaction Education Required Look-alike/sound-alike medication - verify indication for use Avoid intake of foods with large amounts of vitamin K Enteral Feeding: If patient is on tube feedings, avoid formulas containing soy protein Transition to oral diet may require decrease in warfarin dose, Target INR: 2 - 3, Indication: Atrial fibrillation/embolism, Hold warfarin & notify prescriber if INR greater than: 3 Given07/24/2025 4:38 PM EDT2.5 mgMedication OrderMAR ActionAction DateDoseRate Site azithromycin (ZITHROMAX) 500 mg in sodium chloride 0.9 % 250 mL IVPB W/ADAPTER 500 mg, intravenous, at 250 mL/hr, Administer over 60 Minutes, Every 24 hours, First dose on Fri07/20/25 at 2100, For Vial-2-Bag: Attach bag and vial to adapter - Use immediately after activating; dissolve drug prior to administration., Indication: Community-acquired pneumonia New Bag 9:24 PM [id number] mg250 mL/hrNew 07/22/2025 9:23 PM YOU022 mg 250 mL/hrNew 07/21/2025 10:50 PM LEL471 mg250 mL/hr empagliflozin (JARDIANCE) tablet 12.5 mg 12.5 mg, oral, Daily, First dose on Fri07/20/25 at 2015 Given07/21/2025 8:41 AM EDT12.5 mg phytonadione (Vitamin K) (AQUA-MEPHYTON) 5 mg in sodium chloride 0.9 % 50 mL IVPB 5 mg, intravenous, at 101 mL/hr, Administer over 30 Minutes, Once, On Farnaz 07/21/25 at 1115, For 1 dose 07/21/2025 12:00 PM EDT5 mg101 mL/hr potassium chloride (K-TAB,KLOR-CON) CR tablet 30-50 mEq 30-50 mEq, oral, As needed, Potassium Supplementation, Starting on Fri07/20/25 at 2334, Progress to oral potassium replacement when patient tolerating oral intake. If dose administered, recheck potassium level 4 hours after last dose. For potassium level 3.4 to 3.8 mmol/L and GFR 30 mL/min or greater=30 mEq. For potassium level 3.1 to 3.3 mmol/L and GFR 30 mL/min or greater=40 mEq. For potassiumlevel 3 mmol/L or less and GFR 30 mL/min or greater=50 mEq. Do not crush or chew. Given07/20/2025 11:53 PM EDT30 mEq potassium chloride IVPB 10 mEq/100 mL in water (0.1 mEq/mL premix) 10 mEq, intravenous, at 100 mL/hr, Administer over 60 Minutes, As needed, POTASSIUM REPLACEMENT, Starting on Fri07/20/25 at 2334, IV if unable to use oral/enteral with the current dosing strategies Potassium level 3 mmol/L or less administer Potassium Chloride 50 mEq Potassium level 3.1 to 3.3 mmol/L administer Potassium Chloride 40 mEq Potassium level 3.4 to 3.8 mmol/L administer Potassium Chloride 30 mEq Use central line when applicable. Recheck potassium level 1 hour after total IVPB infusion complete, With each potassium result continue the replacement orders as needed VESICANT (YELLOW) Infuse each 10 mEq over a minimum of 1 hour. Fmtbswifj31/23/2025 7:25 AM VWX022 mL/hrNew Bag07/21/2025 6:46 AM EDT10 hNw351 mL/hr sodium chloride 0.9 % bolus 750 mL, intravenous, at 1,451.6 mL/hr, Administer over 31 Minutes, Once, On Fri07/20/25 at 1900, For 1 dose New Bag07/20/2025 8:07 PM RVF709 tZ3851.6 mL/hr tranexamic acid (CYKLOKAPRON) injection 500 mg 500 mg, nebulization, Every 8 hours scheduled, First dose on Fri07/21/25 at 1045, Administer 500 mg (5 mL) over 15 minutes via jet nebulizer Given07/24/2025 9:02 PM KSC248 cnLhtoo0407/24/2025 1:58 PM ZDI328 mgGiven 07/23/2025 10:46 PM OWG494 mgdocumented in this encounter Active and Recently Administered Medications Times are shown in EDT.Medication Order// atorvastatin (LIPITOR) tablet 10 mg 10 mg, oral, Daily, First dose on Fri07/20/25 at 2015, Look-alike/sound-alike medication - verify indication for use. * 0918 (Given - Provider: Jonathan Chang RN) * 0816 (Given - Provider: Jonathan Chang RN) * 0819 (Given - Provider: Mita Dove RN) azithromycin (ZITHROMAX) 500 mg in sodium chloride 0.9 % 250 mL IVPB W/ADAPTER (CANCELED) 500 mg, intravenous, at 250 mL/hr, Administer over 60 Minutes, Every 24 hours, First dose on Fri07/20/25 at 2100, For Vial-2-Bag: Attach bag and vial to adapter - Use immediately after activating; dissolve drug prior to administration., Indication: Community-acquired pneumonia * 2123 (New Bag - Provider: Kenia Madsen, MARLON) * 2223 (Stop Bag - Provider: Kenia Madsen RN) brimonidine (ALPHAGAN) 0.2 % ophthalmic solution 1 drop(Linked Group 1) 1 drop, both eyes, Daily, First dose on Fri07/21/25 at 1400 * 0900 (Caregiver/Parent Administered - Provider: Jonathan Chang RN) * 0821 (Caregiver/Parent Administered - Provider: Jonathan Chang RN) * 0819 (Given - Provider: Mita Dove, RN) cefTRIAXone (ROCEPHIN) 1,000 mg in sodium chloride 0.9 % 50 mL IVPB W/ADAPTER 1,000 mg, intravenous, at 100 mL/hr, Administer over 30 Minutes, Every 24 hours, First dose on Fri07/20/25 at 2100, For Vial-2-Bag: Attach bag and vial to adapter - Use immediately after activating;dissolve drug prior to administration., Indication: Community-acquired pneumonia * 2000 (New Bag - Provider: Kenia Madsen RN) * 2030 (Stop Bag - Provider: Kenia Madsen RN) * 2036 (New Bag - Provider: Kenia Madsen RN) * 2106 (Stop Bag - Provider: Kenia Madsen RN) * 2100 (Due) finasteride (PROSCAR) tablet 5 mg 5 mg, oral, Daily, First dose on Fri07/20/25 at 2015, Look-alike/sound-alike medication - verify indication for use. Crushed or broken tablets should not be handled by a woman who is or maybecome because of the potential for absorption and the subsequent potential risk to fetus. * 0918 (Given - Provider: Jonathan Chang RN) * 0816 (Given - Provider: Jonathan Chang RN) * 0819 (Given - Provider: Mita Dove, MARLON) insulin lispro (HumaLOG) injection 1-4 Units 1-4 Units, subcutaneous, Nightly, First dose on Fri07/21/25 at 2200, Bedtime hyperglycemia dosing.For blood glucose 201-250 mg/dL, give 1 unit. For blood glucose 251-300 mg/dL, give 2 units. For blood glucose 301-350 mg/dL, give 3 units. For blood glucose 351-400 mg/dL, give 4 units. Give even ifNPO or meals skipped. Do NOT give more often than every 4 hours when NPO. Notify prescriber if blood glucose greater than 400 mg/dL. Look-alike/sound-alike medication - verify indication for use. Prime with 2 units of insulin prior to administration. Prandial/supplemental Insulin. Pre-filled pens stable 28 days at room temperature. Insulin lispro should be administered within 15 minutes before orimmediately after a meal. * 2100 (Not Given - Provider: Kenia Madsen RN - Reason: Order parameters not met) * 2200 (Not Given - Provider: Kenia Madsen RN - Reason: Order parameters not met) * 2200 (Due) insulin lispro (HumaLOG) injection 1-5 Units 1-5 Units, subcutaneous, 3 times daily with meals, First dose on Farnaz 07/21/25 at 1345, Daytime hyperglycemia dosing. For blood glucose 151-200 mg/dL, give 1 unit. For blood glucose 201-250 mg/dL, give 2 units. For blood glucose 251-300 mg/dL, give 3 units. For blood glucose 301-350 mg/dL, give 4 units. For blood glucose 351-400 mg/dL, give 5 units. Give even if NPO or meals skipped. Do NOT give more often than every 4 hours when NPO. Notify prescriber if blood glucose greater than 400 mg/dL. Look-alike/sound-alike medication - verify indication for use. Prime with 2 units of insulin prior to administration. Prandial/supplemental Insulin. Pre-filled pens stable 28 days at room temperature. Insulin lispro should be administered within 15 minutes before or immediately after a meal. * 0800 (Not Given - Provider: Jonathan Chang RN - Reason: Order parameters not met) * 1202 (Given - Provider: Jonathan Chang RN) * 1700 (Not Given - Provider: Jonathan Chang RN - Reason: Order parameters not met) * 0817 (Given - Provider: Jonathan Chang RN) * 1200 (Not Given - Provider: Jonathan Chang RN - Reason: Order parameters not met) * 1700 (Not Given - Provider: Jonathan Chang RN - Reason: Order parameters not met) * 0800 (Not Given - Provider: Mita Dove RN - Reason: Order parameters not met) * 1200 (Due) * 1700 (Due) latanoprost (XALATAN) 0.005 % ophthalmic solution 1 drop 1 drop, both eyes, Nightly, First dose on Fri07/21/25 at 2200 * 2002 (Given - Provider: Kenia Madsen RN) * 2035 (Given - Provider: Kenia Madsen RN) * 2199 (Due) levothyroxine (SYNTHROID, LEVOTHROID) tablet 75 mcg 75 mcg, oral, Daily, First dose on Fri07/21/25 at 0600, Look-alike/sound-alike medication. Verify indication for use Administer on empty stomach at least ONE hour before or TWO hours after food Enteral Feeding: For 7 days or less of tube feeding- do NOT hold tube feedings, after 7 days- hold tube feedings ONE hour before and ONE hour after administration DOES NOT APPLY TO NEONATES Monitor thyroid function tests weekly * 0607 (Given - Provider: Kenia Madsen RN) * 042 (Given - Provider: Kenia Madsen RN) * 05 (Given - Provider: Kenia Madsen RN) metoclopramide (REGLAN) tablet 5 mg 5 mg, oral, 3 times daily, First dose on Fri07/21/25 at 1400 * 0607 (Given - Provider: Kenia Madsen RN) * 1519 (Given - Provider: Jonathan Chang RN) * 2002 (Given - Provider: Kenia Madsen RN) * 042 (Given - Provider: Kenia Madsen RN) * 1429 (Given - Provider: Jonathan Chang RN) * 2035 (Given - Provider: Kenia Madsen RN) * 0527 (Given - Provider: Kenia Madsen RN) * 1400 (Due) * 2200 (Due) metoprolol succinate XL (TOPROL XL) 24 hr tablet 100 mg 100 mg, oral, Daily, First dose on Fri07/20/25 at 2015, Look-alike/sound-alike medication - verifyindication for use. Do not crush or chew. * 0918 (Given - Provider: Jonathan Chang RN) * 0816 (Given - Provider: Jonathan Chang RN) * 0819 (Given - Provider: Mita Dove, MARLON) pantoprazole (PROTONIX) EC tablet 40 mg 40 mg, oral, Daily, First dose on Fri07/20/25 at 2015, Look-alike/sound-alike medication - verify indication for use. If patient is receiving enteral feeding, consider alternative PPI or continue IVpantoprazole until the delayed-release tablet can be taken orally, Indication: GERD * 0918 (Given - Provider: Jonathan Chang RN) * 0816 (Given - Provider: Jonathan Chang RN) * 0819 (Given - Provider: Mita Dove, MARLON) sodium chloride 0.9 % flush 3 mL 3 mL, intravenous, Every 12 hours scheduled, First dose on Fri07/20/25 at 2100 * 0920 (Given - Provider: Jonathan Chang RN) * 2001 (Given - Provider: Kenia Madsen RN) * 820 (Given - Provider: Jonathan Chang RN) * 2034 (Given - Provider: Kenia Madsen, MARLON) * 899 (Given - Provider: Mita Dove, MARLON) * 2099 (Due) tamsulosin (FLOMAX) 24 hr capsule 0.4 mg 0.4 mg, oral, Nightly, First dose on Fri07/20/25 at 2200, Do not crush or chew. * 2004 (Given - Provider: Kenia Madsen RN) * 2035 (Given - Provider: Kenia Madsen, MARLON) * 2199 (Due) timolol (TIMOPTIC) 0.5 % ophthalmic solution 1 drop(Linked Group 1) 1 drop, both eyes, Daily, First dose on Fri07/21/25 at 1400 * 0900 (Caregiver/Parent Administered - Provider: Jonathan Chang RN) * 0821 (Caregiver/Parent Administered - Provider: Jonathan Chang RN) * 0819 (Given - Provider: Mita Dove, MARLON) tranexamic acid (CYKLOKAPRON) injection 500 mg (CANCELED) 500 mg, nebulization, Every 8 hours scheduled, First dose on Farnaz 10/23/25 at 1045, Administer 500 mg (5 mL) over 15 minutes via jet nebulizer * 0544 (Given - Provider: Francisco Valentine RCP) * 1342 (Given - Provider: Ashley Allen RCP) * 2246 (Given - Provider: Katie Leblanc RCP) * 0600 (Not Given - Provider: Ashley Allen RCP - Reason: Medication not available) * 1358 (Given - Provider: Ashley Allen RCP) * 2102 (Given - Provider: Katie Leblanc RCP) * 0600 (Canceled Entry - Provider: Mita Dove, MARLON) warfarin (COUMADIN) tablet 2.5 mg 2.5 mg, oral, Daily, First dose on Fri07/24/25 at 1600, Food-Drug Interaction Education Required Look-alike/sound-alike medication - verify indication for use Avoid intake of foods with large amounts of vitamin K Enteral Feeding: If patient is on tube feedings, avoid formulas containing soy protein Transition to oral diet may require decrease in warfarin dose, Target INR: 2 - 3, Indication: Atrial fibrillation/embolism, Hold warfarin & notify prescriber if INR greater than: 3 * 1638 (Given - Provider: Jonathan Chang RN) * 1600 (Due) Medication Order07/23/// dextrose (GLUTOSE) 40 % gel 15 g 15 g, oral, As needed, low blood sugar, blood glucose less than 70 mg/dL, Starting on Farnaz 07/21/25 at 1343, If patient conscious and taking PO. If blood glucose is not greater than 70 mg/dL after initial treatment, repeat treatment. dextrose 5 % (D5W) infusion 100 mL/hr, intravenous, Continuous PRN, blood glucose less than 70 mg/dL, Starting on Farnaz 07/21/25 at 1343, For 365 days, Use immediately following dextrose 50% or glucagon treatment for patients whoare unconscious or NPO. Contact prescriber for additional orders. If blood glucose is not greater than 70 mg/dL after initial treatment, repeat treatment. dextrose 50 % in water (D50W) 50% solution 25 mL 25 mL, intravenous, As needed, low blood sugar, blood glucose less than 70 mg/dL and unconscious orNPO with IV access, Starting on Farnaz 07/21/25 at 1343, Push over 1-3 minutes STAT. If conscious and not NPO, immediately follow with meal tray or high protein (7 grams) snack if tray not available. IfNPO, initiate 5% dextrose in water at 100 mL/hr and contact prescriber for additional orders. If blood glucose is not greater than 70 mg/dL after initial treatment, repeat treatment. VESICANT (RED) Warning: HYPERTONIC solution. glucagon HCL injection 1 mg 1 mg, intramuscular, As needed, low blood sugar, blood glucose less than 70 mg/dL and unconscious or NPO without IV access., Starting on Farnaz 07/21/25 at 1343, If conscious and not NPO, immediately follow with meal tray or high protein (7Grams) snack if tray not available. If NPO, initiate IV 5% Dext deniz/Water at 100 mL/hr and contact prescriber for additional orders. If blood glucose is not greater than 70 mg/dL after initial treatment, repeat treatment. magnesium sulfate IVPB 2000 mg/50 mL in iso-osmotic water (40 mg/mL premix) 2,000 mg, intravenous, at 25 mL/hr, Administer over 120 Minutes, As needed, Magnesium level 1.7 to 1.9 mg/dL, or Ionized Magnesium level 0.45 to 0.5 mmol/L., Starting on Farnaz 07/21/25 at 0838, Recheckmagnesium level 4 hours after infusion complete. With each magnesium result continue the replacement orders as needed. * 0926 (New Bag - Provider: Jonathan Chang RN) * 1126 (Stop Bag - Provider: Jonathan Chang RN) magnesium sulfate IVPB 4000 mg/100 mL in iso-osmotic water (40 mg/mL premix) 4,000 mg, intravenous, at 25 mL/hr, Administer over 240 Minutes, As needed, Magnesium level 1.6 mg/dL or less, or Ionized Magnesium level 0.44 mmol/L or less, Starting on Farnaz 07/21/25 at 0838, Recheck magnesium level 4 hours after infusion complete. With each magnesium result continue the replacement orders as needed. potassium chloride (K-TAB,KLOR-CON) CR tablet 30-50 mEq(Linked Group 2) 30-50 mEq, oral, As needed, Potassium Supplementation, Starting on Farnaz 07/21/25 at 0838, Progress to oral potassium replacement when patient tolerating oral intake. If dose administered, recheck potassium level 4 hours after last dose. For potassium level 3.4 to 3.8 mmol/L and GFR 30 mL/min or greater=30 mEq. For potassium level 3.1 to 3.3 mmol/L and GFR 30 mL/min or greater=40 mEq. For potassiumlevel 3 mmol/L or less and GFR 30 mL/min or greater=50 mEq. Do not crush or chew. * 0919 (Given - Provider: Jonathan Chang, MARLON) potassium chloride (KAYCIEL) 20 mEq/15 mL solution 30-50 mEq(Linked Group 2) 30-50 mEq, oral, As needed, Potassium Supplementation, Starting on Farnaz 07/21/25 at 0838, Progress to oral potassium replacement when patient tolerating oral intake. If dose administered, recheck potassium level 4 hours after last dose. For potassium level 3.4 to 3.8 mmol/L and GFR 30 mL/min or greater=30 mEq. For potassium level 3.1 to 3.3 mmol/L and GFR 30 mL/min or greater=40 mEq. For potassiumlevel 3 mmol/L or less and GFR 30 mL/min or greater=50 mEq. Must dilute before use - Mix in 3-8 ounces of water or juice before administration When administering in feeding tube, flush before and after per policy and monitor potassium levels * 0919 (See Alternative - Provider: Jonathan Chang, MARLON) potassium chloride IVPB 10 mEq/100 mL in water (0.1 mEq/mL premix)(Linked Group 2) 10 mEq, intravenous, at 100 mL/hr, Administer over 60 Minutes, As needed, POTASSIUM REPLACEMENT, Starting on Farnaz 07/21/25 at 0838, IV if unable to use oral/enteral with the current dosing strategies Potassium level 3 mmol/L or less administer Potassium Chloride 50 mEq Potassium level 3.1 to 3.3 mmol/L administer Potassium Chloride 40 mEq Potassium level 3.4 to 3.8 mmol/L administer Potassium Chloride 30 mEq Use central line when applicable. Recheck potassium level 1 hour after total IVPB infusion complete, With each potassium result continue the replacement orders as needed VESICANT (YELLOW) Infuse each 10 mEq over a minimum of 1 hour. * 0919 (See Alternative - Provider: Jonathan Chang RN) sod phos di, mono-K phos mono (K-PHOS NEUTRAL) 250 mg tablet 2 tablet(Linked Group 3) 2 tablet, oral, As needed, for phosphorus level 2.3 mg/dL or less., Starting on Fri07/21/25 at 0838, If dose administered, recheck phosphorus level 4 hours after last dose. Look-alike/sound-alike medication - verify indication for use. Give with a full glass of water. sodium chloride 0.9 % flush 3 mL 3 mL, intravenous, As needed, line care, before and after each intermittent use, Starting on Fri07/20/25 at 1911 sodium chloride 0.9 % flush bag 25 mL, intravenous, at 100 mL/hr, Administer over 15 Minutes, As needed, line care, line care afterIVPB administration, Starting on Fri07/20/25 at 1911 sodium phosphate 20 mmol in sodium chloride 0.9 % 100 mL IVPB(Linked Group 3) 20 mmol, intravenous, at 26.7 mL/hr, Administer over 4 Hours, As needed, for phosphorus level 2.3 mg/dL or less., Starting on Fri07/21/25 at 0838, Administer over 4 hours via dedicated line (centralline). If administered, recheck phosphorus level 4 hours after infusion complete. Infuse using central line access. sodium phosphate 20 mmol in sodium chloride 0.9 % 250 mL IVPB(Linked Group 3) 20 mmol, intravenous, at 42.8 mL/hr, Administer over 6 Hours, As needed, for phosphorus level 2.3 mg/dL or less, Starting on Fri07/21/25 at 0838, Administer over 6 hours via dedicated line (peripheral line). If administered, recheck phosphorus level 4 hours after infusion complete. tranexamic acid (CYKLOKAPRON) injection 500 mg 500 mg, nebulization, Every 8 hours PRN, Hemoptysis, Starting on Fri07/25/25 at 0830, Administer 500 mg (5 mL) over 15 minutes via jet nebulizer Order Group 1: brimonidine (ALPHAGAN) 0.2 % ophthalmic solution 1 dropJump to med 1 drop, both eyes, Daily, First dose on Fri07/21/25 at 1400 And timolol (TIMOPTIC) 0.5 % ophthalmic solution 1 dropJump to med 1 drop, both eyes, Daily, First dose on Farnaz 07/21/25 at 1400 Group 2: potassium chloride (K-TAB,KLOR-CON) CR tablet 30-50 mEqJump to med 30-50 mEq, oral, As needed, Potassium Supplementation, Starting on Farnaz 07/21/25 at 0838, Progress to oral potassium replacement when patient tolerating oral intake. If dose administered, recheck potassium level 4 hours after last dose. For potassium level 3.4 to 3.8 mmol/L and GFR 30 mL/min or greater=30 mEq. For potassium level 3.1 to 3.3 mmol/L and GFR 30 mL/min or greater=40 mEq. For potassiumlevel 3 mmol/L or less and GFR 30 mL/min or greater=50 mEq. Do not crush or chew. Or potassium chloride (KAYCIEL) 20 mEq/15 mL solution 30-50 mEqJump to med 30-50 mEq, oral, As needed, Potassium Supplementation, Starting on Farnaz 07/21/25 at 0838, Progress to oral potassium replacement when patient tolerating oral intake. If dose administered, recheck potassium level 4 hours after last dose. For potassium level 3.4 to 3.8 mmol/L and GFR 30 mL/min or greater=30 mEq. For potassium level 3.1 to 3.3 mmol/L and GFR 30 mL/min or greater=40 mEq. For potassiumlevel 3 mmol/L or less and GFR 30 mL/min or greater=50 mEq. Must dilute before use - Mix in 3-8 ounces of water or juice before administration When administering in feeding tube, flush before and after per policy and monitor potassium levels Or potassium chloride IVPB 10 mEq/100 mL in water (0.1 mEq/mL premix)Jump to med 10 mEq, intravenous, at 100 mL/hr, Administer over 60 Minutes, As needed, POTASSIUM REPLACEMENT, Starting on Farnaz 07/21/25 at 0838, IV if unable to use oral/enteral with the current dosing strategies Potassium level 3 mmol/L or less administer Potassium Chloride 50 mEq Potassium level 3.1 to 3.3 mmol/L administer Potassium Chloride 40 mEq Potassium level 3.4 to 3.8 mmol/L administer Potassium Chloride 30 mEq Use central line when applicable. Recheck potassium level 1 hour after total IVPB infusion complete, With each potassium result continue the replacement orders as needed VESICANT (YELLOW) Infuse each 10 mEq over a minimum of 1 hour. Group 3: sodium phosphate 20 mmol in sodium chloride 0.9 % 250 mL IVPBJump to med 20 mmol, intravenous, at 42.8 mL/hr, Administer over 6 Hours, As needed, for phosphorus level 2.3 mg/dL or less, Starting on Farnaz 07/21/25 at 0838, Administer over 6 hours via dedicated line (peripheral line). If administered, recheck phosphorus level 4 hours after infusion complete. Or sodium phosphate 20 mmol in sodium chloride 0.9 % 100 mL IVPBJump to med 20 mmol, intravenous, at 26.7 mL/hr, Administer over 4 Hours, As needed, for phosphorus level 2.3 mg/dL or less., Starting on Farnaz 07/21/25 at 0838, Administer over 4 hours via dedicated line (centralline). If administered, recheck phosphorus level 4 hours after infusion complete. Infuse using central line access. Or sod phos di, mono-K phos mono (K-PHOS NEUTRAL) 250 mg tablet 2 tabletJump to med 2 tablet, oral, As needed, for phosphorus level 2.3 mg/dL or less., Starting on Farnaz 07/21/25 at 0838, If dose administered, recheck phosphorus level 4 hours after last dose. Look-alike/sound-alike medication - verify indication for use. Give with a full glass of water. documented in this encounter Additional Health Concerns AssessmentNoted TimePHQ-9 Depression Total Score: 9:03 PM EDT documented as of this encounter Care Teams Team MemberRelationshipSpecialtyStart DateEnd Date Aurelio Gates MD [address] [facility] [address] [place] [address] PCP - GeneralInternal Iashojjh75/22/25documented as of this encounter
--- OUTSIDE RECORDS SUMMARY | 2025-07-25 10:51 | XMS_ITS | Clinical Summary ---
Author Organization [facility] Address [address] [place] [address] Phone Care Team Providers Care Db2 Developer Name Role Phone Unavailable Primary Care Provider Unavailabl e Social History Tobacco UseTypesPacks/DayYears UsedDateSmoking Tobacco: Never AssessedSex and Gender InformationValueDate RecordedSex Assigned at BirthNot on fileLegal Sex Male08/24/2022 9:12 AM ESTGender IdentityNot on fileSexual OrientationNot on file Plan of Treatment Not on file
--- OUTSIDE RECORDS SUMMARY | 2025-07-25 10:51 | XMS_ITS | Encounter Summary ---
Author Organization [employer] [employer] Address [id number] [address] [place] [address] Care Team Providers Care Primary Operator Name Role Phone Aurelio Gates MD Primary Care Provider [phone] Encounter Details DateTypeDepartmentCare Team (Latest Contact Info)Qqcsdhbfrrd99/22/2025Travel Social History Tobacco UseTypesPacks/DayYears UsedDateSmoking Tobacco: NeverSmokeless Tobacco: NeverAlcohol UseStandard Drinks/WeekCommentsNever0 (1 standard drink = 0.6 oz pure alcohol)PHQ-2AnswerDate RecordedTotal [id number]-CAnswerDate RecordedQ1: How often do you have a [...] in as a part of a household?No07/20/2025Hunger ScreeningAnswerDate RecordedWithin the past 12 months we worried whether our food would run out before we got money to buy more.Never True07/20/2025Within the past 12 months the food we bought just didn't last and we didn't have money to get more.Never True07/20/2025Sex and Gender InformationValueDate RecordedSex Assigned at BirthNot on fileLegal AczGehg17/18/2021 11:16 AM ESTGender Identity Not on fileSexual OrientationNot on filedocumented as of this encounter Functional Status * QuestionAnswerDate of AssessmentAuthorFunctional StatusMinimum assistance 07/20/2025 7:00 PM Estelita Viera RN * AUDIT-C ScoreAnswerDate of QqmgptuimdQgjlbi430/22/2025 7:52 PM Esetlita Viera RN * QuestionAnswerDate of AssessmentAuthorQ1: How [...] Viera RN documented as of this encounter Plan of Treatment Not on file documented as of this encounter Visit Diagnoses Not on filedocumented in this encounter Additional Health Concerns AssessmentNoted TimePHQ-9 Depression Total Score: 9:03 PM EDT documented as of this encounter Care Teams Team MemberRelationshipSpecialtyStart DateEnd Date Aurelio Gates MD [address] [facility] [address] [place] [address] PCP - GeneralInternal Qxwktpza95/22/25documented as of this encounter
--- OUTSIDE RECORDS SUMMARY | 2025-07-25 10:51 | XMS_ITS | Encounter Summary ---
Author Organization [employer] Address [id number] [address] [place] [address] Care Team Providers Care Tar Worker Name Role Phone Aurelio Gates MD Primary Care Provider [phone] Encounter Details DateTypeDepartmentCare Team (Latest Contact Info)Ztrmysqjmum91/22/2025Orders Only [facility] [employer] [address] [place] [phone] External, Scanning Provider Pain (Primary Dx) Social History Tobacco UseTypesPacks/DayYears UsedDateSmoking Tobacco: NeverSmokeless Tobacco: NeverAlcohol UseStandard Drinks/WeekCommentsNever0 (1 standard drink = 0.6 oz pure alcohol)PHQ-2AnswerDate RecordedTotal [id number]-CAnswerDate RecordedQ1: How often do you have a [...] InformationValueDate RecordedSex Assigned at BirthNot on fileLegal SpfQjei06/18/2021 11:16 AM ESTGender Identity Not on fileSexual OrientationNot on filedocumented as of this encounter Functional Status * QuestionAnswerDate of AssessmentAuthorFunctional StatusMinimum assistance 07/21/2025 10:51 AM Harriett Orantes RN * AUDIT-C ScoreAnswerDate of HplqjoayzvXxkoio748/22/2025 7:52 PM Estelita Viera RN * QuestionAnswerDate [...] encounter Mental Status * QuestionAnswerEntry DateAuthorOverall Cognitive BkibffE65/24/2025 9:58 AM Randal Morales PT documented in this encounter Plan of Treatment Not on file documented as of this encounter Goals GoalPatient Goal TypeAssociated ProblemsRecent ProgressPatient-Stated?Author Home Harriett Blackwell RN Note: Evaluation of progress towards goal: Return home self care. documented as of this encounter Results * CT angiogram chest (07/19/2025 11:25 PM EDT)Specimen (Source)Anatomical Location / LateralityCollection Method / VolumeCollection TimeReceived Time Narrative Authorizing ProviderResult TypeResult StatusScanning Provider ExternalIMG CT ORDERABLESFinal Result documented in this encounter Visit Diagnoses Diagnosis Pain- Primary Generalized pain documented in this encounter Additional Health Concerns AssessmentNoted TimePHQ-9 Depression Total Score: 9:03 PM EDT documented as of this encounter Care Teams Team MemberRelationshipSpecialtyStart DateEnd Date Aurelio Gates MD [address] [place] [address] PCP - GeneralInternal Jpfsellr42/22/25documented as of this encounter
--- OUTSIDE RECORDS SUMMARY | 2025-07-25 10:52 | XMS_ITS | Clinical Summary ---
Author Organization [facility] Address [address] [place] [address] Care Team Providers Care Alternative Dispute Resolution Mediator Name Role Phone Aurelio Gates MD Unavailable [phone] Mable Corona MD Primary Care Provider [phone] Social History Tobacco UseTypesPacks/DayYears UsedDateSmoking Tobacco: Never AssessedSex and Gender InformationValueDate RecordedSex Assigned at BirthNot on fileLegal Sex Male12/11/2022 7:18 PM EDTGender IdentityNot on fileSexual OrientationNot on file Plan of Treatment Health MaintenanceDue DateLast DoneCommentsMedicare Annual Wellness (AWV) 1941Influenza Vaccine (#1)51, 07/31/2023, 06/28/2022, Additional history existsPneumococcal Vaccine: 65+ QmgjuNigkheeru28/25/2025, 10/25/2016, 06/21/2015, Additional history exists Insurance Care Teams Team MemberRelationshipSpecialtyStart DateEnd Date Aurelio Gates MD [address] [address] PCP - [place]09/29/21 Mable Corona MD [address] [facility] [place] [address] PCP - Generalmily Medicine06/16/25
--- OUTSIDE RECORDS SUMMARY | 2025-07-25 10:52 | XMS_ITS | Clinical Summary ---
Author Organization [employer] tem Address [id number] [address] [place] [address] Care Team Providers Care Spouting Installer Name Role Phone Aurelio Gates MD Primary Care Provider [phone] Allergies Active AllergyReactionsCriticalityNoted DateCommentsPiroxicamPhotosensitivity, Hvcxiaqfam82/22/2025 Disturbed coordination Ondansetron HclNausea And Muizfcar86/22/2025 Medications MedicationSigDispense QuantityRefillsLast FilledStart DateEnd DateStatus lisinopriL (PRINIVIL,ZESTRIL) 2.5 mg tablet Take 1 tablet (2.5 mg total) by mouth in the morning.Suspended tamsulosin (FLOMAX) 0.4 mg capsule Take 1 capsule (0.4 mg total) by mouth nightly.Suspended brimonidine-timoloL (COMBIGAN) 0.2-0.5 % ophthalmic solution Administer 1 drop to both eyes in the morning.Suspended latanoprost (XALATAN) 0.005 % ophthalmic solution Administer 1 drop to both eyes nightly.Suspended atorvastatin (LIPITOR) 10 mg tablet Take 1 tablet (10 mg total) by mouth before bedtime.Suspended metoprolol succinate XL (TOPROL XL) 100 mg 24 hr tablet Take 1 tablet (100 mg total) by mouth in the morning.Suspended lanolin-mineral oil-white petrolatum (eucerin) cream Apply 1 Application topically in the morning.Suspended pantoprazole (PROTONIX) 40 mg EC tablet Take 1 tablet (40 mg total) by mouth in the morning.Suspended finasteride (PROSCAR) 5 mg tablet Take 1 tablet (5 mg total) by mouth in the morning.Suspended lidocaine (LIDODERM) 5 % Place 2 patches on the skin daily. Place to back Remove & Discard patch within 12 hours or as directed by MDSuspended furosemide (LASIX) 40 mg tablet Take 1 tablet (40 mg total) by mouth as needed (for a 3 pound weight gain in 1-2 days).Suspended empagliflozin (JARDIANCE) 25 mg tablet tablet Take 0.5 tablets (12.5 mg total) by mouth in the morning.Suspended metoclopramide (REGLAN) 5 mg tablet Take 1 tablet (5 mg total) by mouth 3 (three) times a day.Suspended levothyroxine (SYNTHROID, LEVOTHROID) 75 MCG tablet Take 1 tablet (75 mcg total) by mouth in the morning.Suspended warfarin (COUMADIN) 2.5 mg tablet Take 1 tablet (2.5 mg total) by mouth before bedtime.Suspended Active Problems ProblemNoted DateDiagnosed QvmuIiuklszxew46/22/2025 Encounters DateTypeDepartmentCare TntlFthmgvoxlav56/22/2025 6:18 PM EDT - PresentHospital [facility] [address] [place] [address] Vianca Rodriguez MD Ismail, MD Marilynn Villarreal Andre, MD 07/20/20257076Svkzyt40/22/2025Orders Only [facility] [address] [place] [id number] External, Scanning Provider Pain (Primary Dx)07/19/2025 11:25 PM EDTAncillary Procedure [facility] [place] [address] Painfrom Last 3 Months Immunizations ImmunizationAdministration DatesNext BlwT3W7 All Forms08/05/2009H1N1 Inj Preservative Free08/19/2009Influenza (IM) Preservative Free06/21/2015Influenza High Dose Preservative Free IM07/14/2024,05/30/2021,07/21/2017,08/05/2016 Influenza Vaccine, Quadrivalent, Dnquearwyf49/30/2022,08/28/2021Influenza, High- dose, Kbhvmtuufqxu37/02/2023,07/14/2020Influenza, Trivalent, Adjuvanted 07/04/2025,07/07/2018Influenza, Ssecctowyed52/03/2014,06/15/2013,09/11/2012, 06/21/2011,07/20/2010,07/08/2009,07/27/2008Pneumococcal Conjugate 13-Valent 06/21/2015Pneumococcal Conjugate 20-ksincf1105/23/2025Pneumococcal Polysaccharide 10/25/2016Pneumococcal, Zvruralhmxq66/13/2006RSV, bivalent, protein subunit RSVpreF, diluent reconstituted, 0.5 mL, PF05/23/2025Tdap11/24/2024,08/08/2014 Zoster Vaccine Nbsisadutiy29/13/2019,08/27/2018 Family History Medical HistoryRelationNameCommentsNo Known ProblemsFatherNo Known Problems MotherRelationNameStatusCommentsFatherDeceasedMotherDeceased Social History Tobacco UseTypesPacks/DayYears UsedDateSmoking Tobacco: NeverSmokeless Tobacco: Never Tobacco Cessation:Counseling Given: Not Answered Alcohol UseStandard Drinks/WeekCommentsNever0 (1 standard drink = 0.6 oz pure alcohol)PHQ-2AnswerDate RecordedTotal Gyjmv745UDIT-CAnswerDate Recorded Q1: How often do you have [...] InformationValueDate RecordedSex Assigned at Not on fileLegal DyvUxrp40/18/2021 11:16 AM ESTGender IdentityNot on fileSexual OrientationNot on file Last Filed Vital Signs Vital SignReadingTime TakenCommentsBlood Pkfsriuy61/561 7:12 AM EDT Kerqv173107/25/2025 7:12 AM QGFJqiempeyqho00.8 ??C (98.3 ??F)07/25/2025 7:12 AM EDTRespiratory Qbms6226 7:12 AM EDTOxygen Eyrmgeeuum62%07/25/2025 7:12 AM EDTInhaled Oxygen Concentration--Znxdrp72.8 kg (145 lb 1 oz)07/25/2025 3:58 AM DCHLqezel616.7 cm (5' 8 )07/20/2025 9:01 PM EDTBody Mass Index22.0607/20/2025 9:01 PM EDT Plan of Treatment Health MaintenanceDue DateLast DoneCommentsFall Risk Tifeutapp20/18/2006COVID-19 Vaccine ( season), 12/05/2020, 11/06/2020 Depression Cektktres38Tobacco Gjiriebxf97 DTaP,Tdap and Td Vaccines (3 - Td or Tdap)5011/24/2024, 08/08/2014Zoster (Shingles) IjeogfaEwbagjeyx87/13/2019, 08/27/2018Influenza VaccineCompleted 07/04/2025, 07/14/2024, 07/31/2023, Additional history exists Goals GoalPatient Goal TypeAssociated ProblemsRecent ProgressPatient-Stated?Author Home Harriett Blackwell RN Note: Evaluation of progress towards goal: Return home self care. Medical Devices Not on file Procedures * The patient is currently admitted. The information in this section might not be complete until the patient is discharged. Procedure NamePriorityDate/TimeAssociated DiagnosisCommentsXR CHEST 1 VWRoutine 07/25/2025 9:58 AM EDT BEDSIDE NYZTGHNGnywelv38/27/2025 7:14 AM EDT PROTIME & OLDZqrrglg79/27/2025 6:09 AM EDT LXYHQCYPGTkdcnzd00/27/2025 6:09 AM EDT CBC WITH AUTO ZLDDUXTDTCHGRmloxqp27/27/2025 6:09 AM EDT BASIC METABOLIC MMMXOYrktlcr29/27/2025 6:09 AM EDT BEDSIDE ANZKOYWRdnqelc76/26/2025 9:20 PM EDT BEDSIDE NNHBJTNKdqjetk73/26/2025 4:07 PM EDT BEDSIDE RNGXJLTNiesman20/26/2025 11:05 AM EDT US RETROPERITONEAL JMEOYAVMBteuuyd52/26/2025 10:51 AM EDT BEDSIDE ZMPTOJGPfwcdgs05/26/2025 7:07 AM EDT PROTIME & HIKOyrlonm77/26/2025 6:54 AM EDT KYPXEMFBFYnjiedb54/26/2025 6:54 AM EDT CBC WITH AUTO VICNDUSUXUBJLubrykw34/26/2025 6:54 AM EDT BASIC METABOLIC AVHMPClxekqd90/26/2025 6:54 AM EDT BEDSIDE IOSRJDZYohpwqj95/25/2025 9:02 PM EDT BEDSIDE NGUUMSEPnyhnjt65/25/2025 3:21 PM EDT WJPTWTLRILirfsfg09/25/2025 2:54 PM EDT NJJDAHQGONbenmtl69/25/2025 2:54 PM EDT BEDSIDE YDUSMPGFbdbbmo36/25/2025 11:09 AM EDT BEDSIDE DRQDBENMygcuzg10/25/2025 7:26 AM EDT WGZBSIDVNHimmldv49/25/2025 6:52 AM EDT CBC WITH AUTO TEOYUIBHLCCUHnstrhx10/25/2025 6:52 AM EDT BASIC METABOLIC LSOJGZjxflip16/25/2025 6:52 AM EDT HEMOGLOBIN AND HEMATOCRIT, ARBKWAexytyf01/24/2025 9:28 PM EDT BEDSIDE BUUGUQRMxkvqro88/24/2025 9:17 PM EDT BEDSIDE KSMMZSLZjwmabt55/24/2025 3:35 PM EDT HEMOGLOBIN AND HEMATOCRIT, JJOGHPuzefte72/24/2025 1:18 PM EDT BEDSIDE LGPSHLZDkstqcs93/24/2025 11:47 AM EDT BEDSIDE COTAOGJOxowifq37/24/2025 7:39 AM EDT CBC WITH AUTO RNQIFJNDWXDTNukvjqz98/24/2025 6:03 AM EDT OPNDPMRTKQpzfzwb11/24/2025 6:02 AM EDT BASIC METABOLIC JZMEWClkkxym37/24/2025 6:02 AM EDT BRONCHOPULMONARY CUCGBZVCpqqmkb05/24/2025 4:00 AM EDTBRONCHOPULMONARY HYGIENE Amwrada9907/22/2025 12:00 AM EDTEXTRA TUBES PST CTKZpvrfxd29/23/2025 10:54 PM EDT EXTRA WUYNQKjumjvr78/23/2025 10:54 PM EDT HEMOGLOBIN AND HEMATOCRIT, PCZEDEunmiqg42/23/2025 10:54 PM EDT BEDSIDE PMEJTUUIbnlbej62/23/2025 9:08 PM EDT BRONCHOPULMONARY ZJJTLZQFgsdwov32/23/2025 8:00 PM EDTLOWER RESP CULTURE SPUTUM CULTURE INC GRAM EROCREeyufzi24/23/2025 4:47 PM EDT CBC WITH AUTO ITKWVCWEATLZJjbexjs68/23/2025 4:41 PM EDT BEDSIDE DUZDMXPWklcshp49/23/2025 3:56 PM EDT YUDLXZLKBWirckpf07/23/2025 2:01 PM EDT BASIC METABOLIC FSQWQMmqnmwh31/23/2025 2:01 PM EDT BEDSIDE ADCLNDYJjvfsqs31/23/2025 1:56 PM EDT LEGIONELLA ANTIGEN, IYCSXXzjaiur59/23/2025 9:47 AM EDT S PNEUMONIAE AG WHktngwj88/23/2025 9:47 AM EDT URINALYSISAdd-On07/21/2025 9:46 AM EDT NBGAEfzysat09/23/2025 9:06 AM EDT PROTIME & BERCrkcvit40/23/2025 9:06 AM EDT EXTRA TUBES LAVENDER TMIEtdwzrc46/23/2025 5:47 AM EDT PHOSPHORUSAdd-On07/21/2025 5:47 AM EDT PROCALCITONINAdd-On07/21/2025 5:47 AM EDT EXTRA IMWKVBhwxnuu93/23/2025 5:47 AM EDT TZUOZUDTBOosbvzo10/23/2025 5:47 AM EDT REPEATED FAWMVAxcrnpp64/23/2025 1:39 AM EDTEXTRA TUBES SST UXXEevuvez23/22/2025 8:03 PM EDT REPEATED XJTBMXjzkqgv31/22/2025 8:03 PM EDT EXTRA GCYFZVhpyyij74/22/2025 8:03 PM EDT PULSE OXIMETRY, MYNRAacgnyq78/22/2025 7:13 PM EDTTYPE AND AUNBKFEMTR03/22/2025 7:11 PM EDT VQNOQvnyyzl65/22/2025 7:11 PM EDT PROTIME & KOOItsprry82/22/2025 7:11 PM EDT BASIC METABOLIC XZMHRXSPL61/22/2025 7:11 PM EDT CBC WITH AUTO PEOJHDZLWTAWORTB91/22/2025 7:11 PM EDT XR CHEST 1 CPWPNQ0007/20/2025 7:[address] CTA XJLPMVtnebeg16/21/2025 11:25 PM EDT Pain from Last 3 Months Results * X-ray chest 1 view (07/25/2025 9:58 AM EDT) Only the most recent of2 resultswithin the time period is included. Anatomical RegionLateralityModalityBody, ChestN/AComputed RadiographySpecimen (Source)Anatomical Location / LateralityCollection Method [...] on 07/25/2025 10:10 AM Authorizing ProviderResult TypeResult StatusRachel Marci Lee GENERAL REPAIRER-CNPIMG DIAGNOSTIC IMAGING ORDERABLESFinal Result * (ABNORMAL) Bedside Glucose *Place/Obtain serum glucose if >500 per glucometer. (07/25/2025 7:14 AM EDT) Only the most recent of16 resultswithin the time period is included. ComponentValueRef RangeTest MethodAnalysis TimePerformed AtPathologist Signature Bedside Glucose (POC)116(H)65 - 99 mg/dL07/25/2025 7:15 AM [facility]YSpec[facility] (Source)Anatomical Location / LateralityCollection Method / VolumeCollection TimeReceived Timearterial/vmzeefbpk54/27/2025 7:14 AM EDT 07/25/2025 7:15 AM EDT Narrative Authorizing ProviderResult TypeResult StatusAndre Noumi MDPOINT OF CARE TEST ORDERABLESFinal ResultPerforming OrganizationAddressCity/State/ZIP CodePhone Number [facility] [address] [place] [address], * (ABNORMAL) CBC auto differential (07/25/2025 6:09 AM EDT) Only the most recent of6 resultswithin the time period is included. ComponentValueRef RangeTest MethodAnalysis TimePerformed AtPathologist Signature WBC6.94 - 11 x10E9/L1 7:27 AM [facility] LABORATORYRBC Count3.47(L)4.1 - 5.7 X10E12/L1 7:27 AM [facility] KCYMHZSYVOKlaplbhvez37.0(L)13 - 17 g/dL07/25/2025 7:27 AM [facility] MIPECRDBSLQjvhfdzkid42.4(L)39 - 50 %07/25/2025 7:27 AM [facility] WOMWYTAATORZA1552 - 100 fL07/25/2025 7:27 AM [facility] SIULZOJATLHQS10.727 - 34 pg07/25/2025 7:27 AM [facility] SFQLVXFUZBZJRQ28.932 - 36 g/dL07/25/2025 7:27 AM [facility] TQGWULJMXONLC78.3(H)11.5 - 15 %07/25/2025 7:27 AM [facility] LABORATORYPlatelet Ymvgb589833 - 450 X10E9/L1 7:27 AM [facility] LABORATORYMPV7.67 - 12 fL07/25/2025 7:27 AM [facility] LABORATORYNeutrophils %75.7%07/25/2025 7:27 AM [facility] LABORATORYLymphocytes %9.9%07/25/2025 7:27 AM [facility] LABORATORYMonocytes %11.1%07/25/2025 7:27 AM [facility] LABORATORYEosinophils %3.0%07/25/2025 7:27 AM [facility] LABORATORYBasophils %0.3%07/25/2025 7:27 AM [facility] LABORATORYNeutrophils Absolute (A)5.31.5 - 6.6 10*3/uL07/25/2025 7:27 AM EDT [facility] LABORATORYLymphocytes Absolute0.7(L)1.0 - 3.5 10*3/uL 07/25/2025 7:27 AM [facility] LABORATORYMonocytes Absolute0.8 0.0 - 0.9 10*3/uL07/25/2025 7:27 AM [facility] Eosinophils Absolute0.20.0 - 0.4 10*3/uL07/25/2025 7:27 AM [facility] LABORATORYBasophils Absolute0.00.0 - 0.2 10*3/uL07/25/2025 7:27 AM EDT [facility] LABORATORYDifferential TypeAUTOMATED DIFFERENTIAL 07/25/2025 7:27 AM [facility] LABORATORYSpecimen (Source) Anatomical Location / LateralityCollection Method / VolumeCollection Time Received TimeBloodVenous blood / UnknownVenipuncture / Beutpqj9207/25/2025 6:09 AM EDT1 7:11 AM EDT Narrative Authorizing ProviderResult TypeResult StatusManju Kay MDLAB BLOOD ORDERABLESFinal ResultPerforming OrganizationAddressCity/State/ZIP CodePhone Number [facility] [address] [place] [address], * (ABNORMAL) Protime & INR (07/25/2025 6:09 AM EDT) Only the most recent of4 resultswithin the time period is included. ComponentValueRef RangeTest MethodAnalysis TimePerformed AtPathologist Signature MPPLXFW72.3(H)9.8 - 13.2 sec07/25/2025 7:29 AM [facility] LABORATORYINR1.6(H)0.9 - 1.210 7:29 AM [facility] LABORATORYSpecimen (Source)Anatomical Location / LateralityCollection Method / VolumeCollection TimeReceived TimeBloodVenous blood / UnknownVenipuncture / Qefhpxb9307/25/2025 6:09 AM EDT1 7:11 AM EDT Narrative Authorizing ProviderResult TypeResult StatusHib Gatekeeper System BLOOD ORDERABLESFinal ResultPerforming OrganizationAddressCity/State/ZIP CodePhone Number [facility] [place] [address], * Magnesium (07/25/2025 6:09 AM EDT) Only the most recent of6 resultswithin the time period is included. ComponentValueRef RangeTest MethodAnalysis TimePerformed AtPathologist Signature MAGNESIUM2.01.8 - 2.6 mg/dL07/25/2025 7:49 AM [facility] LABORATORYSpecimen (Source)Anatomical Location / LateralityCollection Method / VolumeCollection TimeReceived TimeBloodVenous blood / UnknownVenipuncture / Cxbccxq2107/25/2025 6:09 AM EDT1 7:11 AM EDT Narrative Authorizing ProviderResult TypeResult StatusHib Gatekeeper System BLOOD ORDERABLESFinal ResultPerforming OrganizationAddressCity/State/ZIP CodePhone Number [facility] [address] [place] [address], * (ABNORMAL) Basic Metabolic Panel (07/25/2025 6:09 AM EDT) Only the most recent of6 resultswithin the time period is included. ComponentValueRef RangeTest MethodAnalysis TimePerformed AtPathologist Signature UOJLJZ477353 - 146 mmol/L1 7:49 AM [facility] LABORATORYPOTASSIUM3.73.5 - 5.0 mmol/L1 7:49 AM [facility] KEGQSNIICRCRVGEQJW84842 - 109 mmol/L1 7:49 AM [facility] LABORATORYCARBON FSDSRCS9943 - 32 mmol/L1 7:49 AM [facility] LABORATORYANION GAP75 - 15 mmol/L1 7:49 AM [facility] LABORATORYBLOOD UREA HILQDZWN192 - 27 mg/dL07/25/2025 7:49 AM [facility] LABORATORYCREATININE0.820.60 - 1.30 mg/dL07/25/2025 7:49 AM [facility] LABORATORYComment:METHOD TRACEABLE TO IDMS EUJKDUPNHDSONID703(H)65 - 99 mg/dL07/25/2025 7:49 AM [facility] LABORATORYCALCIUM8.1(L)8.5 - 10.5 mg/dL07/25/2025 7:49 AM [facility] LAB[facility]ATORYEGFR Non-Race Hmuxlekqr28>=60 ml/min/1.73sq.m1 7:49 AM [facility] LABORATORYComment: Reported eGFR is based on the CKD-EPI 2020 equation that does not use a race coefficient. Specimen (Source)Anatomical Location / LateralityCollection Method / Volume Collection TimeReceived TimeBloodVenous blood / UnknownVenipuncture / Unknown 07/25/2025 6:09 AM EDT1 7:11 AM EDT Narrative Authorizing ProviderResult TypeResult StatusHibterry Kay MDLAB BLOOD ORDERABLESFinal ResultPerforming OrganizationAddressCity/State/ZIP CodePhone Number [facility] [address] [place] [address], * Ultrasound retroperitoneal complete (07/24/2025 10:51 AM [...] distorting mass. A bladder is decompressed with Walker catheter. Impression: Mild bilateral renal cortical volume [...] parenchymaldistorting mass. A bladder is decompressed with Walker catheter. Impression: Mild bilateral renal cortical volume loss and thinning. No renalcollecting system dilatation. Finalized by Francisco Cornejo MD on 07/24/2025 10:57 AM Authorizing ProviderResult TypeResult StatusRaul N Lico Reid MDIMG US ORDERABLESFinal Result * Potassium (07/23/2025 2:54 PM EDT) Only the most recent of2 resultswithin the time period is included. ComponentValueRef RangeTest MethodAnalysis TimePerformed AtPathologist Signature POTASSIUM4.33.5 - 5.0 mmol/L1 3:28 PM [facility] LAB[facility]ATORYSpecimen (Source)Anatomical Location / LateralityCollection Method / VolumeCollection TimeReceived TimeBloodVenous blood / UnknownVenipuncture / Jkvtuvc1507/23/2025 2:54 PM EDT1 3:03 PM EDT Narrative Authorizing ProviderResult TypeResult StatusHibah H Ismail RF-iT SolutionsLAB BLOOD ORDERABLESFinal ResultPerforming OrganizationAddressCity/State/ZIP CodePhone Number [facility] [address] [place] [address], [place] [phone] * (ABNORMAL) Hemoglobin and hematocrit, blood (07/22/2025 9:28 PM EDT) Only the most recent of3 resultswithin the time period is included. ComponentValueRef RangeTest MethodAnalysis TimePerformed AtPathologist Signature Olkygemlhn85.5(L)13 - 17 g/dL07/22/2025 9:49 PM [facility] ERFXRUPWBVLuhxavvnxy41.9(L)39 - 50 %07/22/2025 9:49 PM [facility] LABORATORYSpecimen (Source)Anatomical Location / LateralityCollection Method / VolumeCollection TimeReceived TimeBloodVenous blood / Unknown Venipuncture / Hodnvef0207/22/2025 9:28 PM EDT1 9:38 PM EDT Narrative Authorizing ProviderResult TypeResult Status[facility] Danial IanSoftGeneticsil RF-iT SolutionsLAB BLOOD ORDERABLESFinal ResultPerforming OrganizationAddressCity/State/ZIP CodePhone Number [facility] [address] [place] [address], [place] [phone] * PST TOP (07/21/2025 10:54 PM EDT)ComponentValueRef RangeTest MethodAnalysis TimePerformed AtPathologist SignatureExtra TubeAuto Ypoorldj55/24/2025 12:03 AM [facility] LABORATORYSpecimen (Source)Anatomical Location / LateralityCollection Method / VolumeCollection TimeReceived TimeBloodVenous blood / Tuuapyw8507/21/2025 10:54 PM EDT1 11:06 PM EDT Narrative Authorizing ProviderResult TypeResult Status[facility] Danial IsSoftGeneticsil RF-iT SolutionsLAB BLOOD ORDERABLESFinal ResultPerforming OrganizationAddressCity/State/ZIP CodePhone Number [facility] [address] [place] [address], [place] [phone] * (ABNORMAL) Lower resp/sputum culture inc gram stain: Patient acquired (07/21/2025 4:47 PM EDT)ComponentValueRef RangeTest MethodAnalysis Time Performed AtPathologist SignatureCULTURE RESULTSNORMAL RESPIRATORY ASTON 07/23/2025 10:40 AM [facility] LABORATORYGRAM STAIN10 to 24 White Blood Cells/LPF(A)07/23/2025 10:40 AM [facility] LABORATORYGRAM STAIN10 to 24 Squamous Epithelial Cells/LPF(A)07/23/2025 10:40 AM [facility] LABORATORYGRAM STAIN0 to 1 Ciliated Epithelial Cells/LPF(A)07/23/2025 10:40 AM [facility] LABORATORYGRAM STAINModerate Gram positive cocci in pairs(A)07/23/2025 10:40 AM [facility] LABORATORYGRAM STAINFew Gram positive cocci in chains(A) 07/23/2025 10:40 AM [facility] LABORATORYGRAM STAINFew Gram positive bacilli(A)07/23/2025 10:40 AM [facility] Specimen (Source)Anatomical Location / LateralityCollection Method / Volume Collection TimeReceived TimeSputumLung structure / Pwwbfij9107/21/2025 4:47 PM EDT1 5:13 PM EDT Narrative Authorizing ProviderResult TypeResult StatusHeather Nora Resendiz GENERAL REPAIRER-LINING VAMPER MICROBIOLOGY - GENERAL ORDERABLESFinal ResultPerforming OrganizationAddress City/State/ZIP CodePhone Number [facility] [address] [place] [address], * S Pneumoniae AG, urine (07/21/2025 9:47 AM EDT)ComponentValueRef RangeTest MethodAnalysis TimePerformed AtPathologist SignatureS PNEUMONIAE AG UNegative Smnwexfj82/23/2025 10:54 AM [facility] LABORATORYSpecimen (Source)Anatomical Location / LateralityCollection Method / VolumeCollection TimeReceived TimeUrineUrine / Uvgykje3407/21/2025 9:47 AM EDT1 10:07 AM EDT Narrative Authorizing ProviderResult TypeResult StatusHeather L Hemelgarn GENERAL REPAIRER-CNPURINE ORDERABLESFinal ResultPerforming OrganizationAddressCity/State/ZIP CodePhone Number [facility] [address] [place] [address], * Legionella antigen, urine (07/21/2025 9:47 AM EDT)ComponentValueRef RangeTest MethodAnalysis TimePerformed AtPathologist SignatureLEGIONELLA URINE AG Negative, No L. pneumophila serogroup 1 AntigenNegative, No L. pneumophila serogroup 1 Xvusqfy0207/21/2025 10:54 AM [facility] Specimen (Source)Anatomical Location / LateralityCollection Method / Volume Collection TimeReceived TimeUrineUrine / Mbvdbiq5807/21/2025 9:47 AM EDT 07/21/2025 10:07 AM EDT Narrative Authorizing ProviderResult TypeResult StatusHeather Nora Resendiz GENERAL REPAIRER-CNPURINE ORDERABLESFinal ResultPerforming OrganizationAddressty/State/ZIP CodePhone Number [facility] [address] [place] [address], * (ABNORMAL) Urinalysis (07/21/2025 9:46 AM EDT)ComponentValueRef RangeTest MethodAnalysis TimePerformed AtPathologist SignatureCOLORYellowYellow 07/21/2025 12:10 PM [facility] LABORATORYTURBIDITYClearClear 07/21/2025 12:10 PM [facility] LABORATORYSPECIFIC GRAVITY 1.0201.003 - 1.7162807/21/2025 12:10 PM [facility] RFWDDVVFrpuugmnWobtttrj33/23/2025 12:10 PM [facility] LABORATORYPH,URINE6.05.0 - 8.510 12:10 PM [facility] LABORATORYLEUKOCYTE VNCBVFAWOdxceedkWxxndvkf50/23/2025 12:10 PM [facility] LABORATORYComment:High Concentrations of Glucose May Decrease the Reactivity of the Dipstick Leukocyte Test Pad.DOECCFT20 mg/dL(A) Sknzpita36/23/2025 12:10 PM [facility] LABORATORYKETONES (URINE)XbbeqezbJofzaqgz30/23/2025 12:10 PM [facility] LABORATORYUROBILINOGEN<1.1 eu/dL<1.1 eu/dL07/21/2025 12:10 PM [facility] LABORATORYBILIRUBIN (URINE)ZqqzngxgOcdtajnv64/23/2025 12:10 PM [facility] LABORATORYBLOOD/HGBLarge(A)Hgfwqmmj30/23/2025 12:10 PM [facility] LABORATORYR.B.ZXMHG537(H)0 - 510 12:10 PM [facility] LABORATORYSQUAMOUS EPITHELIUM<10 - 5 07/21/2025 12:10 PM [facility] LABORATORYW.B.CELLS40 - 5 07/21/2025 12:10 PM [facility] LABORATORYGLUCOSE (URINE)>1000 mg/dL(A)Duqrmymh18/23/2025 12:10 PM [facility] Specimen (Source)Anatomical Location / LateralityCollection Method / Volume Collection TimeReceived TimeUrineUrine / Pemjzmy6807/21/2025 9:46 AM EDT 07/21/2025 11:14 AM EDT Narrative Authorizing ProviderResult TypeResult StatusHibterry MCCRARY ORDERABLES Final ResultPerforming OrganizationAddressCity/State/ZIP CodePhone Number [facility] [phone] [place] [address], * APTT (07/21/2025 9:06 AM EDT) Only the most recent of2 resultswithin the time period is included. ComponentValueRef RangeTest MethodAnalysis TimePerformed AtPathologist Signature [id number] - 37 sec07/21/2025 9:56 AM [facility] Specimen (Source)Anatomical Location / LateralityCollection Method / Volume Collection TimeReceived TimeBloodVenous blood / UnknownVenipuncture / Unknown 07/21/2025 9:06 AM EDT1 9:33 AM EDT Narrative Authorizing ProviderResult TypeResult StatusManju VALDIVIA BLOOD ORDERABLESFinal ResultPerforming OrganizationAddressCity/State/ZIP CodePhone Number [facility] [address] [place] [address], [place] [phone] * Lavender Top (07/21/2025 5:47 AM EDT)ComponentValueRef RangeTest Method Analysis TimePerformed AtPathologist SignatureExtra TubeAuto Resulted 07/21/2025 7:01 AM [facility] LABORATORYSpecimen (Source) Anatomical Location / LateralityCollection Method / VolumeCollection Time Received TimeBloodVenous blood / Pinixvd7307/21/2025 5:47 AM EDT1 6:08 AM EDT Narrative Authorizing ProviderResult TypeResult StatusDishai Rodriguez MDLAB BLOOD ORDERABLESFinal ResultPerforming OrganizationAddressCity/State/ZIP CodePhone Number [facility] [address] [place] [address], * Procalcitonin (07/21/2025 5:47 AM EDT)ComponentValueRef RangeTest Method Analysis TimePerformed AtPathologist SignaturePROCALCITONIN<0.05<0.05 ng/mL 07/21/2025 8:25 AM [facility] LABORATORYSpecimen (Source) Anatomical Location / LateralityCollection Method / VolumeCollection Time Received TimeBloodVenous blood / UnknownVenipuncture / Lngsvop0007/21/2025 5:47 AM EDT1 6:08 AM EDT Narrative [facility] - 07/21/2025 8:25 AM EDT <0.50 ng/mL - Low risk of severe sepsis and/or septic shock. <2.00 ng/mL - Recommend retesting within 6-24 hours. >2.00 ng/mL - High risk of sepsis and/or septic shock. Authorizing ProviderResult TypeResult StatusHeather Nora Resendiz APRN-[facility]ENTERLAB BLOOD ORDERABLESFinal ResultPerforming OrganizationAddressCity/State/ZIP Code Phone Number [facility] [address] [place] [address], * Phosphorus (07/21/2025 5:47 AM EDT)ComponentValueRef RangeTest MethodAnalysis TimePerformed AtPathologist SignaturePHOSPHORUS3.02.4 - 4.9 mg/dL07/21/2025 9:04 AM [facility] LABORATORYSpecimen (Source)Anatomical Location / LateralityCollection Method / VolumeCollection TimeReceived Time BloodVenous blood / UnknownVenipuncture / Jyyawin1907/21/2025 5:47 AM EDT 07/21/2025 6:08 AM EDT Narrative Authorizing ProviderResult TypeResult StatusManju Kay MDLAB BLOOD ORDERABLESFinal ResultPerforming OrganizationAddressCity/State/ZIP CodePhone Number [facility] [address] [place] [address], [place] [phone] * ABO Rh Repeat (07/21/2025 1:39 AM EDT) Only the most recent of2 resultswithin the time period is included. Specimen (Source)Anatomical Location / LateralityCollection Method / Volume Collection TimeReceived Time07/21/2025 1:39 AM EDT Narrative Authorizing ProviderResult TypeResult StatusVianca Rodriguez MDBLOOD BANK TEST ORDERABLESFinal ResultPerforming OrganizationAddressCity/State/ZIP CodePhone Number [facility] * SST TOP (07/20/2025 8:03 PM EDT)ComponentValueRef RangeTest MethodAnalysis TimePerformed AtPathologist SignatureExtra TubeAuto Xpeyrjwe11/22/2025 10:01 PM [facility] LABORATORYSpecimen (Source)Anatomical Location / LateralityCollection Method / VolumeCollection TimeReceived TimeBloodVenous blood / Jqgscws0507/20/2025 8:03 PM EDT1 8:22 PM EDT Narrative Authorizing ProviderResult TypeResult StatusVianca Rodriguez MDLAB BLOOD ORDERABLESFinal ResultPerforming OrganizationAddressCity/State/ZIP CodePhone Number [facility] [address] [place] [address], [place] [phone] * Type and screen (07/20/2025 7:11 PM EDT)ComponentValueRef RangeTest Method Analysis TimePerformed AtPathologist OygckzixjGGAI21/22/2025 8:07 PM EDTTTH BB - APYTXKFNBSajdatga63/22/2025 8:07 PM EDTTTH BB - NORAAntibody Screen Uxbttafn90/22/2025 8:07 PM EDTTTH PRABHAKAR - NORASpecimen (Source)Anatomical Location / LateralityCollection Method / VolumeCollection TimeReceived Time BloodVenous blood / UnknownVenipuncture / Duhwqtf0607/20/2025 7:11 PM EDT 07/20/2025 7:25 PM EDT Narrative Authorizing ProviderResult TypeResult StatusVianca Rodriguez MDBLOOD BANK TEST ORDERABLESEdited Result - FinalPerforming OrganizationAddressCity/State/ZIP Code Phone Number [facility]EN[facility] [address] [place] [address], * CT angiogram chest (07/19/2025 11:25 PM EDT)Specimen (Source)Anatomical Location / LateralityCollection Method / VolumeCollection TimeReceived Time Narrative Authorizing ProviderResult TypeResult StatusScanning Provider ExternalIMG CT ORDERABLESFinal Result from Last 3 Months Insurance Advance Directives * Full Code (Latest Code Status on File) Date ActivatedDate PlmjbzneiriItscqpsu96/24/2025 8:57 PM Care Teams Team MemberRelationshipSpecialtyStart DateEnd Date Aurelio Gates MD [address] [facility] [address] [place] [address] PCP - GeneralInternal Xwxpcvaw76/22/25
--- OUTSIDE RECORDS SUMMARY | 2025-07-25 11:01 | XMS_ITS | CCD ---
Author Organization [facility] Care Team Providers Care Cuff Stitcher Name Role Phone Yves Sanford Unavailable MD Ivan Lopez Primary Care Provider BERNADINE Rivero Emergency Provider [phone], DR ACEVEDO Primary Care Unavailable KEITH OLIVEIRA Admitting Unavailable KEITH OLIVEIRA Attending Unavailable KEITH OLIVEIRA Consulting Unavailable DORIAN YODER Consulting Unavailable BROOK ., DR OLSON Consulting Unavailable DORIAN SOARES Consulting Unavailable JOZEF SANDERS Consulting Unavailable MILAGROS MIXNO Consulting Unavailable KERN VALLEYCathryn, DR ACEVEDO Primary Care Unavailable DEBRA OLIVEIRALAS Admitting Unavailable KEITH OLIVEIRA Attending Unavailable KEITH OLIVEIRA Consulting Unavailable DORIAN YODER Consulting Unavailable LAKHWINDER ., DR FLORES Consulting Unavailable SCARLET RUSSELL Consulting Unavailable SHAR TREJO Consulting Unavailable Wilson John Consulting Unavailable SHAHZAD VILLALPANDO Consulting Unavailable RAMO TOMPKINS Consulting Unavailable GRACE .MARGOT Consulting Unavailable MP HERNANDEZ Consulting Unavailable RONALD, DR ACEVEDO Primary Care Unavailable MILAGROS MIXON Consulting Unavailable SCARLET RUSSELL Admitting Unavailable SCARLET RUSSELL Attending Unavailable Madyson Galvez MD Emergency Provider Elizabeth (Clinic) Karoline HERNÁNDEZ Primary Care Provider Elizabeth (Clinic)Karoline Primary Care UnavailMadyson Lopez Attending Unavailable Madyson Galvez Admitting Unavailable YANA RUEDA Referring Unavailable YANA RUEDA Primary Care Unavailable ALBER SHEN Admitting Unavailable REF PROV, NOT IN SYSTEM Referring Unavaila SOO Andrade Primary Care Unavailable [facility] Consulting Unavailable MARYLU JAVIER Attending Unavailable JUAN J ALBERT JR Consulting Unavailable Allergies Allergy ClassificationReported Allergen(s)Allergy TypeDate of OnsetReaction(s) Facility (2 sources)Ondansetron; Translations: [ondansetron]Drug Jbcjjeh36-49-1868AovwswMercy Health – [facility] (1 source)OndansetronDrug Zvafdgs44-76-0773HslA[facility] Repository (2 sources)Ondansetron; Translations: [ONDANSETRON HCL]Drug Doebxhj51-75-9680 [facility] Repository (2 sources)Piroxicam; Translations: [PIROXICAM]Drug Npuczut00-54-8467ZxfOiahws Repository Medications Current Medications MedicationDrug Class(es)DatesSig (Normalized)Sig (Original)atorvastatin 10 mg oral tablet (1 source)HMG-CoA Reductase InhibitorStart: 75-61-2891lcxa 1 tablet by mouth once dailyAtorvastatin 10 mg tablet Active 10 MG PO Daily July 04, 2025 12:00am Complies with drug therapybrimonidine tartrate 2 mg/ml / timolol 5 mg/ml ophthalmic solution (1 source)alpha-Adrenergic Agonist, beta-Adrenergic BlockerStart: 07-04-2025 Brimonidine-Timolol 0.2-0.5 % drops Active 1 DROPS EYE-BOTH Daily July 04, 2025 12:00am Complies with drug therapyempagliflozin 25 mg oral tablet (1 source)Sodium-Glucose Cotransporter 2 InhibitorStart: 69-40-8212zjzu 1 tablet by mouth once dailyEmpagliflozin 25 mg tablet Active 12.5 MG PO Daily July 04, 2025 12:00am Complies with drug therapyfinasteride 5 mg oral tablet (1 source)5-alpha Reductase InhibitorStart: 06-58-9019tyzh 1 tablet by mouth once dailyFinasteride 5 mg tablet Active 5 MG PO Daily July 04, 2025 12:00am Complies with drug therapyfurosemide 40 mg oral tablet (1 source)Loop DiureticStart: 36-51-8537lftm 1 tablet by mouth once daily Furosemide (Lasix) 40 mg tablet Active 40 MG PO daily July 04, 2025 12:00am Complies with drug therapyHydrophilic ointment (1 source)Start: 49-37-9103Pidlmshtflm ointment Active 1 APPLIC TOPICAL Daily as needed for dry skin July 04, 2025 12:00amComplies with drug therapy latanoprost 0.05 mg/ml ophthalmic solution (1 source)Prostaglandin AnalogStart: 70-63-3040blut 1 drop(s) into the eye(s) once daily in the eveningLatanoprost 0.005 % drops Active 1 DROPS EYE-BOTH Every evening July 04, 2025 12:00am Complies with drug therapylevothyroxine sodium 0.075 mg oral tablet (1 source)l-ThyroxineStart: 04-57-5680bbtc 1 tablet by mouth once daily Levothyroxine (Euthyrox) 75 mcg tablet Active 75 MCG PO Daily July 04, 2025 12:00am Complies with drug therapylidocaine 0.05 mg/mg medicated patch (1 source)Antiarrhythmic, Amide Local AnestheticStart: 76-41-6974rwffq 1 dose topically once dailyLidocaine (Dermacinrx Lidocan) 5 % adhesive patch,medicated Active 2 PATCH TOPICAL Daily July 04, 2025 12:00am leave on most painful area for up to 12 hrs Complies with drug therapylisinopril 2.5 mg oral tablet (1 source)Angiotensin Converting Enzyme InhibitorStart: 31-21-6105ichn 1 tablet by mouth once dailyLisinopril 2.5 mg tablet Active 2.5 MG PO Daily July 04, 2025 12:00am Complies with drug therapyloperamide hydrochloride 2 mg oral tablet (2 sources)Opioid Agonisttake 1 tablet by mouth every six hoursImodium A-D 2 MG 1 tablet as needed Orally Four times a day Activemetoclopramide 5 mg oral tablet (1 source)Dopamine-2 Receptor AntagonistStart: 33-78-0779ujnk 1 tablet by mouth three times dailyMetoclopramide Hcl 5 mg tablet Active 5 MG PO Three times daily July 04, 2025 12:00am Complies with drug aroprkc60 hr metoprolol succinate 100 mg extended release oral tablet (1 source)beta-Adrenergic BlockerStart: 15-25-1811Ulnptcjhgk Succinate (Toprol Xl) 100 mg tablet extended release 24 hr Active 150 MG PO Daily July 04, 2025 12:00am Complies with drug therapypantoprazole 40 mg delayed release oral tablet (1 source)Proton Pump InhibitorStart: 95-92-3412nppm 1 tablet by mouth once dailyPantoprazole 40 mg tablet,delayed release (DR/EC) Active 40 MG PO Daily July 04, 2025 12:00am Complies with drug therapyspironolactone 25 mg oral tablet (1 source)Aldosterone AntagonistStart: 27-23-1050hmic 1 tablet by mouth once dailySpironolactone 25 mg tablet Active 25 MG PO Daily July 04, 2025 12:00am Complies with drug therapytamsulosin hydrochloride 0.4 mg oral capsule (1 source)alpha-Adrenergic BlockerStart: 97-77-9445eglz 1 capsule by mouth once dailyTamsulosin 0.4 mg capsule Active 0.4 MG PO Daily July 04, 2025 12:00am Complies with drug therapywarfarin sodium 2.5 mg oral tablet (5 sources)Vitamin K AntagonistStart: 95-50-1837lnkh 1 tablet by mouth once dailyWarfarin 2.5 mg tablet Active 2.5 MG PO Daily July 04, 2025 12:00am Complies with drug therapyCoumadin Active Completed/Discontinued Medications MedicationDrug Class(es)DatesSig (Normalized)Sig (Original)ondansetron 4 mg disintegrating oral tablet (4 sources)Serotonin-3 Receptor AntagonistStart: 07-09-2022 End: 56-86-2168lyqq 1 tablet by mouth every eight hours as needed for nausea and vomitingOndansetron 4 mg tablet,disintegrating Discontinued 4 MG PO Q8H as needed for nausea and vomiting 62 July 09, 2022 12:00am January 10, 2023 1:14pmStart: 75-81-9620dcwn 1 tablet by mouth every twenty-four hoursOndansetron HCl 4 MG 1 tablet Orally Once a day for 30 day(s) Apr, Active Problems Active Problems Problem ClassificationProblemDateDocumented DateEpisodic/ChronicAcute and unspecified renal failure (3 sources)Injury of kidney; Translations: [Acute kidney failure, unspecified] Onset: 425096-56-0148QwvbetnyIajixdu on above:Problem List clean-up per request of Phys. EHR CmteBacterial infection; unspecified site (1 source)Helicobacter pylori [H. pylori] as the cause of diseases classified elsewhere; Translations: [H PYLORI CAUSE OF DZ CLASS ELSW]Onset: 02-11-2023 EpisodicBiliary tract disease (1 source)Calculus of gallbladder without cholecystitis without obstruction; Translations: [CALCU GB W/O CHOLECYST W/O OBST]Onset: 70-66-7742HqurvddyUszprym dysrhythmias (1 source)Unspecified atrial fibrillation; Translations: [UNSPECIFIED ATRIAL FIBRILLATION]Onset: 77-05-2831DvhslszOtxzrkh kidney disease (1 source)Chronic kidney disease; Translations: [Chronic kidney disease, unspecified]28-65-0258WpngyfhIgpixttpvo heart failure; nonhypertensive (1 source)Heart failure, unspecified; Translations: [HEART FAILURE UNSPECIFIED] Onset: 89-33-7692FjqkysjIgbwnmgc mellitus with complications (1 source)Type 2 diabetes mellitus with diabetic autonomic (poly)neuropathy; Translations: [TYPE 2 DM W/DIAB AUTONOM NEUROPATHY]Onset: 05-51-1043Zxnzuhy Diabetes mellitus without complication (1 source)Type 2 diabetes mellitus without complications; Translations: [TYPE 2 DM WITHOUT COMPLICATIONS]Onset: 19-59-5829MhafoziKmzcdmmh of white blood cells (1 source)Elevated white blood cell count, unspecified; Translations: [ELEVATED WHITE BLOOD CELL COUNT UNS]Onset: 06-81-5449QzpsbenPpaglnqgx of lipid metabolism (2 sources)Pure hypercholesterolemia, unspecified; Translations: [Hyperlipidemia, unspecified]Onset: 93-34-7585VglcxxvO Codes: Adverse effects of medical drugs (1 source)Adverse effect of anticoagulants, initial encounter; Translations: [ADVERSE EFFECT ANTICOAG INITIALENC]Onset: 13-17-6399NealmwsiDztnzknlq hypertension (1 source)Essential (primary) hypertension; Translations: [ESSENTIAL PRIMARY HYPERTENSION]Onset: 25-05-7258FicbtmhTlnki and electrolyte disorders (2 sources)Hypo-osmolality and hyponatremia; Translations: [Dehydration]Onset: 93-15-1408YexvbolqLrscnvsat and duodenitis (1 source)Gastritis, unspecified, without bleeding; Translations: [GASTRITIS UNS WITHOUT BLEEDING]Onset: 44-71-2733NsttwcptSraunzwf (1 source)Unspecified glaucoma; Translations: [UNSPECIFIED GLAUCOMA]Onset: 58-39-1132VqayetaJnuijkmcysx of prostate (1 source)Benign prostatic hyperplasia without lower urinary tract symptoms; Translations: [BENIGN PROSTATIC HYPRPLASIA WO LUTS]Onset: 20-02-3194Bpkjqay Hypertension with complications and secondary hypertension (1 source)Hypertensive heart disease with heart failure; Translations: [HTN HEART DISEASE W/HEART FAIL]Onset: 52-25-4678QusfmaoUsoqmihzlw obstruction without hernia (4 sources)Unspecified intestinal obstruction, unspecified as to partial versus complete obstruction; Translations: [Partial intestinal obstruction, unspecified as to cause]Onset: 48-58-0110XuaeazjkSctaot and vomiting (6 sources)Nausea; Translations: [Nausea and vomiting]Onset: 05-23-2022 Resolved: 97-98-6952QcoejumiXvixhng on above:Problem List clean-up per request of Phys. EHR CmteNoninfectious gastroenteritis (1 source)Noninfective gastroenteritis and colitis, unspecified; Translations: [NONINFECTIVE GE AND COLITIS UNS]Onset: 66-20-6185VllgnkliEfpvf aftercare (1 source)detention (current) use of anticoagulants; Translations: [FDC CURRNT USE ANTICOAGULANTS]Onset: 01-84-4868OlmejxcfZqcxq aftercare (1 source)Other care home (current) drug therapy; Translations: [OTH ELECTRONICS INSTRUCTOR CURRENT DRUG THERAPY]Onset: 94-26-0595QpzlvznvSbrzo circulatory disease (6 sources)Hypotension, unspecified; Translations: [HYPOTENSION UNSPECIFIED] Onset: 57-18-0479DhtaiyvvEljqo circulatory disease (1 source)Low blood pressure; Translations: [Hypotension, unspecified]07-04-2025 EpisodicOther disorders of stomach and duodenum (1 source)Gastroparesis; Translations: [GASTROPARESIS]Onset: 63-16-1503Jdjceiwo Other gastrointestinal disorders (3 sources)Altered bowel function; Translations: [Change in bowel habit]Episodic Other gastrointestinal disorders (5 sources)Diarrhea; Translations: [Diarrhea, unspecified]62-95-4703Abajvbla Comment on above:Problem List clean-up per request of Phys. EHR CmteOther injuries and conditions due to external causes (2 sources)Injury of head; Translations: [Unspecified injury of head, initial encounter]29-24-3042WhmexbzjTvvxifd on above:Problem List clean-up per request of Phys. EHR CmteOther injuries and conditions due to external causes (1 source)Systemic inflammatory response syndrome (SIRS) of non-infectious origin without acute organ dysfunction; Translations: [SIRS NON-INF ORIG NO AC ORGAN DYSF]Onset: 09-29-6119XtgplrahGbpzm lower respiratory disease (1 source)Hemoptysis; Translations: [Hemoptysis]Onset: 03-84-8838WbrlejckDeqqi lower respiratory disease (1 source)HemoptysisOnset: 54-26-2792MzsrsjsoXrnhl nutritional; endocrine; and metabolic disorders (4 sources)Weight loss; Translations: [Abnormal weight loss]EpisodicOther screening for suspected conditions (not mental disorders or infectious disease) (1 source)Abnormal coagulation profile; Translations: [ABNORMAL COAGULATION PROFILE]Onset: 79-08-6771ZaszbtdlAtiappxw codes; unclassified (3 sources)History of excision of intestinal structure; Translations: [Acquired absence of other specified parts of digestive tract]EpisodicResidual codes; unclassified (2 sources)Acquired absence of other specified parts of digestive tract; Translations: [ACQ ABSENCE OTH PART DIGESTV TRACT]Onset: 02-21-2022 Resolved: 17-64-9606VglgukgbJohnrxed codes; unclassified (1 source)Pain, unspecified; Translations: [Pain, unspecified]Onset: 07-20-2025 EpisodicScreening and history of mental health and substance abuse codes (1 source)Personal history of nicotine dependence; Translations: [PERSONAL HISTORY OF NICOTINE DEPEND]Onset: 98-25-2557DindpfjdAsqhxjprwzoh (1 source)Chronic atrial fibrillation, unspecified; Translations: [CHRONIC ATRIAL FIBRILLATION UNSPEC]Onset: 56-35-9203Xjxzupypevtp (1 source)ACIDOSIS UNSPECIFIED; Translations: [ACIDOSIS UNSPECIFIED]Onset: 13-09-3113Haebauufbeph (1 source)CONTACT W/AND (SUSP) EXPOS COVID-19; Translations: [CONTACT W/AND (SUSP) EXPOS COVID-19]Onset: 02-11-2023 Past or Other Problems Problem ClassificationProblemDateDocumented DateEpisodic/ChronicOther gastrointestinal disorders (3 sources)Diarrhea, unspecifiedOnset: 11-22-2021 Resolved: 96-23-1765DzicuzmbWpuju gastrointestinal disorders (1 source)Change in bowel habitOnset: 02-21-2022 Resolved: 35-85-2576EvtcfvgsGxohc nutritional; endocrine; and metabolic disorders (2 sources)Abnormal weight lossOnset: 11-22-2021 Resolved: 52-42-0985Uszznkgj Results Test NameValueInterpretationReference RangeFacilityBASIC METABOLIC PANELon 72-35-2411Lptts gap [Moles/Vol]8 mmol/LNormal5-15[facility] Comment on above:Performed By: #### PTT #### [facility] ([facility]) [address] [place] [address] VIRCalcium [Mass/Vol]8.0 mg/dLLow8.5-10.5PMarietta Osteopathic ClinicComment on above:Performed By: #### PTT #### [facility] ([facility]) [address] [place] [address] VIRChloride [Moles/Vol]106 mmol/HQcqeev10-335ZsoDzytos [place] HospitalComment on above:Performed By: #### PTT #### [facility] ([facility]) [address] [place] [address] VIRCO2 [Moles/Vol]23 mmol/ULqfljj01-73IzkRyeksaMarietta Osteopathic Clinic Comment on above:Performed By: #### PTT #### [facility] ([facility]) [address] [place] [address] VIRCreatinine [Mass/Vol]0.95 mg/dLNormal0.60-1.30ProSumma Health Wadsworth - Rittman Medical CenterComment on above:Result Comment: METHOD TRACEABLE TO IDMS STANDARDPerformed By: #### PTT #### [facility] ([facility]) [address] [place] [address] VIRGFR/1.73 sq M.predicted among non-blacks MDRD (S/P/Bld) [Vol rate/Area]79 mL/min/{1.73_m2}Normal>=60ProThe Jewish Hospital HospitalComment on above:Result Comment: Reported eGFR is based on the CKD-EPI 2020 equation that does not use a race coefficient.Performed By: #### PTT #### [facility] ([facility]) [address] [place] [address] VIRGlucose [Mass/Vol]153 mg/oSRuma57-19KbiGcujcw [place] HospitalComment on above:Performed By: #### PTT #### [facility] ([facility]) [address] [place] [address] VIRPotassium [Moles/Vol]3.7 mmol/LNormal3.5-5.0ProKing'S Daughters Medical Center Ohioca Posen HospitalComment on above:Performed By: #### PTT #### [facility] ([facility]) [address] [place] [address] VIRSodium [Moles/Vol]137 mmol/LQduqbb268-974RbgClijzp [place] HospitalComment on above:Performed By: #### PTT #### [facility] ([facility]) [address] [place] [address] VIRUrea nitrogen [Mass/Vol]22 mg/dLNormal5-27ProThe [facility] Hospital HospitalComment on above:Performed By: #### PTT #### [facility] ([facility]) [address] [place] [address] VIRBEDSIDE GLUCOSEon 03-30-0612Krrsdzj [Mass/Vol]139 mg/dLHigh 65-99ProThe [facility] HospitalComment on above:Performed By: #### PTT #### [facility] ([facility]) [address] [place] [address] VIRGlucose [Mass/Vol]154 mg/dYVzri53-62ProPszrxp [place] HospitalComment on above:Performed By: #### PTT #### [facility] ([facility]) [address] [place] [address] VIRCBC WITH AUTO DIFFERENTIALon 24-53-2843RUIIPZCGI ABSOLUTE COUNT (10*3/UL) BY AUTOMATED COUNT0.0 10*3/uLNormal0.0-0.2Pro[facility]cmc Healthcare SystemComment on above:Performed By: #### PTT #### [facility] ([facility]) [address] [place] [address] VIRBASOPHILS RELATIVE PERCENT BY AUTOMATED COUNT0.3 %Normal [facility] HospitalComment on above:Performed By: #### PTT #### [facility] ([facility]) [address] [place] [address] VIRCELLAVISION DIFFERENTIAL TYPEAUTOMATED DIFFERENTIALNormal [facility] HospitalComment on above:Performed By: #### PTT #### [facility] ([facility]) [address] [place] [address] VIREosinophils (Bld) [#/Vol]0.1 10*3/uLNormal0.0-0.4ProKing'S Daughters Medical Center Ohioca Posen HospitalComment on above:Performed By: #### PTT #### [facility] ([facility]) [address] [place] [address] VIREOSINOPHILS RELATIVE PERCENT BY AUTOMATED COUNT2.2 %Normal [facility] HospitalComment on above:Performed By: #### PTT #### [facility] ([facility]) [address] [place] [address] VIRErythrocyte distribution width (RBC) [Ratio]15.7 %High 11.5-15ProKing'S Daughters Medical Center Ohioca Posen HospitalComment on above:Performed By: #### PTT #### [facility] ([facility]) [address] [place] [address] VIRHematocrit (Bld) [Volume fraction]32.4 %Lxq25-91YgcIovlma Posen HospitalComment on above:Performed By: #### PTT #### [facility] ([facility]) [address] [place] [address] VIRHemoglobin (Bld) [Mass/Vol]11.1 g/zCAjt95-89FgeJbejhl Posen HospitalComment on above:Performed By: #### PTT #### [facility] ([facility]) [address] [place] [address] VIRLYMPHOCYTES ABSOLUTE COUNT (10*3/UL) BY AUTOMATED COUNT0.7 10*3/uLLow1.0-3.5ProMedica [facility] HospitalComment on above:Performed By: #### PTT #### [facility] ([facility]) [address] [place] [address] VIRLYMPHOCYTES RELATIVE PERCENT BY AUTOMATED COUNT10.5 %Normal [facility] HospitalComment on above:Performed By: #### PTT #### [facility] ([facility]) [address] [place] [address] VIRMCH (RBC) [Entitic mass]32.0 tzMxcxgh08-04UvgEetdso Posen HospitalComment on above:Performed By: #### PTT #### [facility] ([facility]) [address] [place] [address] VIRMCHC (RBC) [Mass/Vol]34.2 g/cHRzogwl90-51RelHlxatk Posen HospitalComment on above:Performed By: #### PTT #### [facility] ([facility]) [address] [place] [address] VIRMCV (RBC) [Entitic vol]94 kVFgrupi32-835VffYitmix Posen HospitalComment on above:Performed By: #### PTT #### [facility] ([facility]) [address] [place] [address] VIRMONOCYTES ABSOLUTE COUNT (10*3/UL) BY AUTOMATED COUNT0.7 10*3/uLNormal0.0-0.9Pro[facility]ica [facility] HospitalComment on above:Performed By: #### PTT #### [facility] ([facility]) [address] [place] [address] VIRMONOCYTES RELATIVE PERCENT BY AUTOMATED COUNT10.5 %Normal [facility] HospitalComment on above:Performed By: #### PTT #### [facility] ([facility]) [address] [place] [address] VIRNEUTROPHILS ABSOLUTE COUNT BY AUTOMATED COUNT5.0 10*3/uL Normal1.5-6.6ProKing'S Daughters Medical Center Ohioca Posen HospitalComment on above:Performed By: #### PTT #### [facility] ([facility]) [address] [place] [address] VIRNEUTROPHILS RELATIVE PERCENT BY AUTOMATED COUNT76.5 %Normal [facility] HospitalComment on above:Performed By: #### PTT #### [facility] ([facility]) [address] [place] [address] VIRPlatelet mean volume (Bld) [Entitic vol]7.7 fLNormal7-12 ProMMemorial Health System [facility] HospitalComment on above:Performed By: #### PTT #### [facility] ([facility]) [address] [place] [address] VIRPlatelets (Bld) [#/Vol]153 10*3/nBCnnqak014-811HyoKlbygv [place] HospitalComment on above:Performed By: #### PTT #### [facility] ([facility]) [address] [place] [address] VIRRBC COUNT3.46 X10E12/LLow4.1-5.7ProThe [facility] Hospital Comment on above:Performed By: #### PTT #### [facility] ([facility]) [address] [place] [address] VIRWBC (Bld) [#/Vol]6.6 10*3/uLNormal4-11ProThe [facility] HospitalComment on above:Performed By: #### PTT #### [facility] ([facility]) [address] [place] [address] VIRMAGNESIUMon 65-53-7601Wgjjmzdqa [Mass/Vol]2.2 mg/dLNormal 1.8-2.6ProSumma Health Wadsworth - Rittman Medical CenterComment on above:Performed By: #### PTT #### [facility] ([facility]) [address] [place] [address] VIRPROTIME AND INRon 86-89-2501HAB0.5High0.9-1.2PWayne Hospital HospitalComment on above:Performed By: #### PTT #### [facility] ([facility]) [address] [place] [address] VIRPT Coag (PPP) [Time]17.2 sHigh9.8-13.2PWayne Hospital HospitalComment on above:Performed By: #### PTT #### [facility] ([facility]) [address] [place] [address] VIRUS RETROPERITONEAL COMPLETEon 10-88-2400RG RETROPERITONEAL COMPLETEUS RETROPERITONEAL COMPLETE US RETROPERITONEAL COMPLETE Clinical history:Urinary retention Comparison: [...] by Francisco Cornejo MD on 07/24/2025 10:57 AMNormalProSumma Health Wadsworth - Rittman Medical CenterBASIC METABOLIC PANELon 34-60-2456Aumte gap [Moles/Vol]7 mmol/LNormal 5-15ProSumma Health Wadsworth - Rittman Medical CenterComment on above:Performed By: #### PINR #### [facility] ([facility]) [address] [place] [address] VIRCalcium [Mass/Vol]8.1 mg/dLLow8.5-10.5PMarietta Osteopathic ClinicComment on above:Performed By: #### PINR #### [facility] ([facility]) [address] [place] [address] VIRChloride [Moles/Vol]107 mmol/NAibtvb69-176GfkFpwpag [place] HospitalComment on above:Performed By: #### PINR #### [facility] ([facility]) [address] [place] [address] VIRCO2 [Moles/Vol]23 mmol/UZbliix38-50UugXkiedg [facility] Comment on above:Performed By: #### PINR #### [facility] ([facility]) [address] [place] [address] VIRCreatinine [Mass/Vol]0.93 mg/dLNormal0.60-1.30ProSumma Health Wadsworth - Rittman Medical CenterComment on above:Result Comment: METHOD TRACEABLE TO IDMS STANDARDPerformed By: #### PINR #### [facility] ([facility]) [address] [place] [address] VIRGFR/1.73 sq M.predicted among non-blacks MDRD (S/P/Bld) [Vol rate/Area]81 mL/min/{1.73_m2}Normal>=60ProSumma Health Wadsworth - Rittman Medical CenterComment on above:Result Comment: Reported eGFR is based on the CKD-EPI 2020 equation that does not use a race coefficient.Performed By: #### PINR #### [facility] ([facility]) [address] [place] [address] VIRGlucose [Mass/Vol]110 mg/zXYuuv28-77NvrHvhyia [place] HospitalComment on above:Performed By: #### PINR #### [facility] ([facility]) [address] [place] [address] VIRPotassium [Moles/Vol]3.6 mmol/LNormal3.5-5.0ProSumma Health Wadsworth - Rittman Medical CenterComment on above:Performed By: #### PINR #### [facility] ([facility]) [address] [place] [address] VIRSodium [Moles/Vol]137 mmol/JYriskj540-030CjcMzltaq Rivera HospitalComment on above:Performed By: #### PINR #### [facility] ([facility]) [address] [place] [address] VIRUrea nitrogen [Mass/Vol]25 mg/dLNormal5-27ProMedica Posen HospitalComment on above:Performed By: #### PINR #### [facility] ([facility]) [address] [place] [address] VIRBEDSIDE GLUCOSEon 45-28-3478Xvwbzrb [Mass/Vol]129 mg/dLHigh 65-99ProMedica Posen HospitalComment on above:Performed By: #### PTT #### [facility] ([facility]) [address] [place] [address] VIRGlucose [Mass/Vol]137 mg/pHFfti07-69DrcOhmnof Posen HospitalComment on above:Performed By: #### PTT #### [facility] ([facility]) [address] [place] [address] VIRGlucose [Mass/Vol]205 mg/dIVfaw15-34OwiUnmsae [facility]osen HospitalComment on above:Performed By: #### PINR #### [facility] ([facility]) [address] [place] [address] VIRGlucose [Mass/Vol]108 mg/iJVnnk69-60ZdsGxvrlh [facility] HospitalComment on above:Performed By: #### PINR #### [facility] ([facility]) [address] [place] [address] VIRCBC WITH AUTO DIFFERENTIALon 67-47-1284OZFNFHGXU ABSOLUTE COUNT (10*3/UL) BY AUTOMATED COUNT0.0 10*3/uLNormal0.0-0.2ProMedica Posen HospitalComment on above:Performed By: #### PINR #### [facility] ([facility]) [address] [place] [address] VIRBASOPHILS RELATIVE PERCENT BY AUTOMATED COUNT0.3 %Normal [facility] HospitalComment on above:Performed By: #### PINR #### [facility] ([facility]) [address] [place] [address] VIRCELLAVISION DIFFERENTIAL TYPEAUTOMATED DIFFERENTIALNormal ProMred bay hospitala Posen HospitalComment on above:Performed By: #### PINR #### [facility] ([facility]) [address] [place] [address] VIREosinophils (Bld) [#/Vol]0.1 10*3/uLNormal0.0-0.4ProMedica Posen HospitalComment on above:Performed By: #### PINR #### [facility] ([facility]) [address] [place] [address] VIREOSINOPHILS RELATIVE PERCENT BY AUTOMATED COUNT1.9 %Normal [facility] HospitalComment on above:Performed By: #### PINR #### [facility] ([facility]) [address] [place] [address] VIRErythrocyte distribution width (RBC) [Ratio]15.9 %High 11.5-15ProMedica Rivera HospitalComment on above:Performed By: #### PINR #### [facility] ([facility]) [address] [place] [address] VIRHematocrit (Bld) [Volume fraction]32.7 %Cui80-12KsxXtzhao Rivera HospitalComment on above:Performed By: #### PINR #### [facility] ([facility]) [address] [place] [address] VIRHemoglobin (Bld) [Mass/Vol]11.1 g/pAJyu38-97FbuDkwasx Rivera HospitalComment on above:Performed By: #### PINR #### [facility] ([facility]) [address] [place] [address] VIRLYMPHOCYTES ABSOLUTE COUNT (10*3/UL) BY AUTOMATED COUNT0.8 10*3/uLLow1.0-3.5ProMedica Rivera HospitalComment on above:Performed By: #### PINR #### [facility] ([facility]) [address] [place] [address] VIRLYMPHOCYTES RELATIVE PERCENT BY AUTOMATED COUNT12.0 %Normal [facility]ica Posen HospitalComment on above:Performed By: #### PINR #### [facility] ([facility]) [address] [place] [address] VIRMCH (RBC) [Entitic mass]31.6 yeVgdupc60-00KfwLmrmnj Rivera HospitalComment on above:Performed By: #### PINR #### [facility] ([facility]) [address] [place] [address] VIRMCHC (RBC) [Mass/Vol]33.9 g/hRQjzhcj95-62WcgTemomm Rivera HospitalComment on above:Performed By: #### PINR #### [facility] ([facility]) [address] [place] [address] VIRMCV (RBC) [Entitic vol]93 vPHwwjmt40-499GslWlcaoq Posen HospitalComment on above:Performed By: #### PINR #### [facility] ([facility]) [address] [place] [address] VIRMONOCYTES ABSOLUTE COUNT (10*3/UL) BY AUTOMATED COUNT0.7 10*3/uLNormal0.0-0.9ProMedica Posen HospitalComment on above:Performed By: #### PINR #### [facility] ([facility]) [address] [place] [address] VIRMONOCYTES RELATIVE PERCENT BY AUTOMATED COUNT11.3 %Normal Pro[facility] Posen HospitalComment on above:Performed By: #### PINR #### [facility] ([facility]) [address] [place] [address] VIRNEUTROPHILS ABSOLUTE COUNT BY AUTOMATED COUNT4.7 10*3/uL Normal1.5-6.6ProThe [facility] HospitalComment on above:Performed By: #### PINR #### [facility] ([facility]) [address] [place] [address] VIRNEUTROPHILS RELATIVE PERCENT BY AUTOMATED COUNT74.5 %Normal [facility] HospitalComment on above:Performed By: #### PINR #### [facility] ([facility]) [address] [place] [address] VIRPlatelet mean volume (Bld) [Entitic vol]8.2 fLNormal7-12 [facility] HospitalComment on above:Performed By: #### PINR #### [facility] ([facility]) [address] [place] [address] VIRPlatelets (Bld) [#/Vol]141 10*3/gMIlr092-450AwuDpnfjj [place] HospitalComment on above:Performed By: #### PINR #### [facility] ([facility]) [address] [place] [address] VIRRBC COUNT3.51 X10E12/LLow4.1-5.7ProThe [facility] Hospital Comment on above:Performed By: #### PINR #### [facility] ([facility]) [address] [place] [address] VIRWBC (Bld) [#/Vol]6.2 10*3/uLNormal4-11ProKing[facility] Posen HospitalComment on above:Performed By: #### PINR #### [facility] ([facility]) [address] [place] [address] VIRMAGNESIUMon 32-07-1739Etynarbpx [Mass/Vol]2.3 mg/dLNormal 1.8-2.6ProThe [facility] HospitalComment on above:Performed By: #### PINR #### [facility] ([facility]) [address] [place] [address] VIRMagnesium [Mass/Vol]1.8 mg/dLNormal1.8-2.6ProKing'S Daughters [facility] Posen HospitalComment on above:Performed By: #### PINR #### [facility] ([facility]) [address] [place] [address] VIRPOTASSIUMon 43-75-8346Gyajihmzz [Moles/Vol]4.3 mmol/LNormal 3.5-5.0ProMedica Posen HospitalComment on above:Performed By: #### PTT #### [facility] ([facility]) [address] [place] [address] VIRBASIC METABOLIC PANELon 51-33-3913Jbiyl gap [Moles/Vol]8 mmol/LNormal5-15ProKing'S Daughters [facility] Posen HospitalComment on above:Performed By: #### BMP #### [facility] ([facility]) [address] [place] [address] VIRCalcium [Mass/Vol]7.9 mg/dLLow8.5-10.5ProMedica Posen HospitalComment on above:Performed By: #### BMP #### [facility] ([facility]) [address] [place] [address] VIRChloride [Moles/Vol]108 mmol/MTgotkz68-343FxdXeotxo [facility] HospitalComment on above:Performed By: #### BMP #### [facility] ([facility]) [address] [place] [address] VIRCO2 [Moles/Vol]21 mmol/VCfg41-71EsgDvlokz [facility] Comment on above:Performed By: #### BMP #### [facility] ([facility]) [address] [place] [address] VIRCreatinine [Mass/Vol]0.89 mg/dLNormal0.60-1.30ProKing'[facility] D[facility] Posen HospitalComment on above:Result Comment: METHOD TRACEABLE TO IDMT STANDARDPerformed By: #### BMP #### [facility] ([facility]) [address] [place] [address] VIRGFR/1.73 sq M.predicted among non-blacks MDRD (S/P/Bld) [Vol rate/Area]85 mL/min/{1.73_m2}Normal>=60ProMedica Posen HospitalComment on above:Result Comment: Reported eGFR is based on the CKD-EPI 2020 equation that does not use a race coefficient.Performed By: #### BMP #### [facility] ([facility]) [address] [place] [address] VIRGlucose [Mass/Vol]132 mg/kPOomg48-14WreVwtxha [place] HospitalComment on above:Performed By: #### BMP #### [facility] ([facility]) [address] [place] [address] VIRPotassium [Moles/Vol]4.3 mmol/LNormal3.5-5.0Pro[facility]ica Posen HospitalComment on above:Performed By: #### BMP #### [facility] ([facility]) [address] [place] [address] VIRSodium [Moles/Vol]137 mmol/RQqrmgt585-088ZwxVxmidd [facility] HospitalComment on above:Performed By: #### BMP #### [facility] ([facility]) [address] [place] [address] VIRUrea nitrogen [Mass/Vol]30 mg/dLHigh5-27Pro[facility] HospitalComment on above:Performed By: #### BMP #### [facility] ([facility]) [address] [place] [address] VIRBEDSIDE GLUCOSEon 22-29-6289Cdvgmeb [Mass/Vol]122 mg/dLHigh 65-99Pro[facility] HospitalComment on above:Performed By: #### PINR #### [facility] ([facility]) [address] [place] [address] VIRGlucose [Mass/Vol]123 mg/zXPbck90-63NyhVutcom [facility]osen HospitalComment on above:Performed By: #### PINR #### [facility] ([facility]) [address] [place] [address] VIRGlucose [Mass/Vol]152 mg/mNDsrq80-87WgbDpbnof [facility] HospitalComment on above:Performed By: #### BMP #### [facility] ([facility]) [address] [place] [address] VIRGlucose [Mass/Vol]119 mg/iCYkag68-38PbxTbarch [facility] HospitalComment on above:Performed By: #### BMP #### [facility] ([facility]) [address] [place] [address] VIRCBC WITH AUTO DIFFERENTIALon 78-35-2540GSVMPTOJS ABSOLUTE COUNT (10*3/UL) BY AUTOMATED COUNT0.0 10*3/uLNormal0.0-0.2Pro[facility]osen HospitalComment on above:Performed By: #### BMP #### [facility] ([facility]) [address] [place] [address] VIRBASOPHILS RELATIVE PERCENT BY AUTOMATED COUNT0.2 %Normal [facility] HospitalComment on above:Performed By: #### BMP #### [facility] ([facility]) [address] [place] [address] VIRCELLAVISION DIFFERENTIAL TYPEAUTOMATED DIFFERENTIALNormal [facility] HospitalComment on above:Performed By: #### BMP #### [facility] ([facility]) [address] [place] [address] VIREosinophils (Bld) [#/Vol]0.1 10*3/uLNormal0.0-0.4Pro[facility]osen HospitalComment on above:Performed By: #### BMP #### [facility] ([facility]) [address] [place] [address] VIREOSINOPHILS RELATIVE PERCENT BY AUTOMATED COUNT1.2 %Normal [facility] HospitalComment on above:Performed By: #### BMP #### [facility] ([facility]) [address] [place] [address] VIRErythrocyte distribution width (RBC) [Ratio]15.6 %High 11.5-15Pro[facility]osen HospitalComment on above:Performed By: #### BMP #### [facility] ([facility]) [address] [place] [address] VIRHematocrit (Bld) [Volume fraction]34.7 %Cmd52-53GrlIqakzu [facility] HospitalComment on above:Performed By: #### BMP #### [facility] ([facility]) [address] [place] [address] VIRHemoglobin (Bld) [Mass/Vol]11.6 g/rBAor66-07XoiEhvpcs [facility] HospitalComment on above:Performed By: #### BMP #### [facility] ([facility]) [address] [place] [address] VIRLYMPHOCYTES ABSOLUTE COUNT (10*3/UL) BY AUTOMATED COUNT0.7 10*3/uLLow1.0-3.5Pro[facility] HospitalComment on above:Performed By: #### BMP #### [facility] ([facility]) [address] [place] [address] VIRLYMPHOCYTES RELATIVE PERCENT BY AUTOMATED COUNT9.1 %Normal [facility] HospitalComment on above:Performed By: #### BMP #### [facility] ([facility]) [address] [place] [address] VIRMCH (RBC) [Entitic mass]31.7 unTwhkwg11-02SkgMmykir Rivera HospitalComment on above:Performed By: #### BMP #### [facility] ([facility]) [address] [place] [address] VIRMCHC (RBC) [Mass/Vol]33.4 g/mCToeosv93-71VegTyvwas [place] HospitalComment on above:Performed By: #### BMP #### [facility] ([facility]) [address] [place] [address] VIRMCV (RBC) [Entitic vol]95 hPTjvrmu44-520PunUmoufd [facility] HospitalComment on above:Performed By: #### BMP #### [facility] ([facility]) [address] [place] [address] VIRMONOCYTES ABSOLUTE COUNT (10*3/UL) BY AUTOMATED COUNT0.8 10*3/uLNormal0.0-0.9ProThe [facility] HospitalComment on above:Performed By: #### BMP #### [facility] ([facility]) [address] [place] [address] VIRMONOCYTES RELATIVE PERCENT BY AUTOMATED COUNT10.0 %Normal [facility] HospitalComment on above:Performed By: #### BMP #### [facility] ([facility]) [address] [place] [address] VIRNEUTROPHILS ABSOLUTE COUNT BY AUTOMATED COUNT6.3 10*3/uL Normal1.5-6.6ProSumma Health W[facility]sworth - Rittman Medical CenterComment on above:Performed By: #### BMP #### [facility] ([facility]) [address] [place] [address] VIRNEUTROPHILS RELATIVE PERCENT BY AUTOMATED COUNT79.5 %Normal [facility] HospitalComment on above:Performed By: #### BMP #### [facility] ([facility]) [address] [place] [address] VIRPlatelet mean volume (Bld) [Entitic vol]8.3 fLNormal7-12 [facility] HospitalComment on above:Performed By: #### BMP #### [facility] ([facility]) [address] [place] [address] VIRPlatelets (Bld) [#/Vol]137 10*3/lRKke979-336CupPmmumr Rivera HospitalComment on above:Performed By: #### BMP #### [facility] ([facility]) [address] [place] [address] VIRRBC COUNT3.65 X10E12/LLow4.1-5.7[facility] Comment on above:Performed By: #### BMP #### [facility] ([facility]) [address] [place] [address] VIRWBC (Bld) [#/Vol]7.9 10*3/uLNormal4-11[facility] HospitalComment on above:Performed By: #### BMP #### [facility] ([facility]) [address] [place] [address] VIRHEMOGLOBIN AND HEMATOCRIT, BLOODon 86-49-9006Nqhtiilhqt (Bld) [Volume fraction]33.9 %Jcl57-03TxuUibnhr Rivera HospitalComment on above: Performed By: #### PINR #### [facility] ([facility]) [address] [place] [address] VIRHemoglobin (Bld) [Mass/Vol]11.5 g/oMFss43-25XmtZtjjkd Rivera HospitalComment on above:Performed By: #### PINR #### [facility] ([facility]) [address] [place] [address] VIRHematocrit (Bld) [Volume fraction]35.7 %Mti07-43HdxJdycoz Rivera HospitalComment on above:Performed By: #### PINR #### [facility] ([facility]) [address] [place] [address] VIRHemoglobin (Bld) [Mass/Vol]12.0 g/cUUpc05-16AfoAhpoln Rivera HospitalComment on above:Performed By: #### PINR #### [facility] ([facility]) [address] [place] [address] VIRMAGNESIUMon 03-55-7771Zhfrgnfhr [Mass/Vol]1.8 mg/dLNormal 1.8-2.6[facility] HospitalComment on above:Performed By: #### BMP #### [facility] ([facility]) [address] [place] [address] VIRAPTTon 17-99-4488kTVQ Coag (Bld) [Time]34 dWdqzpn70-99 [facility] HospitalComment on above:Performed By: #### PTT ####[facility] ([facility])[address] [address] VIR BASIC METABOLIC PANELon 15-73-3084Enful gap [Moles/Vol]11 mmol/LNormal5-15 ProMred bay hospitala Posen HospitalComment on above:Performed By: #### BMP ####[facility] ([facility])[address] [address] VIR Calcium [Mass/Vol]8.2 mg/dLLow8.5-10.5Pro[facility] HospitalComment on above: Performed By: #### BMP ####[facility] ([facility])[address] [address] VIRChloride [Moles/Vol]108 mmol/CAhxgtt32-812 ProMred [facility] hospitala [facility] HospitalComment on above:Performed By: #### BMP ####[facility] ([facility])[address] [address] VIRCO2 [Moles/Vol]20 mmol/OMpj68-94NjrUifwlf [facility] HospitalComment on above:Performed By: #### BMP ####[facility] ([facility])[address] [address] VIRCreatinine [Mass/Vol]0.92 mg/dLNormal0.60-1.30[facility] HospitalComment on above:Result Comment: METHOD TRACEABLE TO IDMS STANDARDPerformed By: #### BMP ####[facility] ([facility])[address] [address] VIRGFR/1.73 sq M.predicted among non-blacks MDRD (S/P/Bld) [Vol rate/Area]82 mL/min/{1.73_m2}Normal>=60ProSumma Health Wadsworth - Rittman Medical CenterComment on above:Result Comment: Reported eGFR is based on the CKD-EPI 2020 equation that does not use a race coefficient.Performed By: #### BMP ####[facility] ([facility])[address] [address] VIRGlucose [Mass/Vol]110 mg/eNChzr06-72ItjWtdursSumma Health Wadsworth - Rittman Medical CenterComment on above:Performed By: #### BMP ####[facility] ([facility])[address] [address] VIRPotassium [Moles/Vol]4.3 mmol/LNormal3.5-5.0[facility] Comment on above:Performed By: #### BMP ####[facility] ([facility])[address] [address] VIRSodium [Moles/Vol]139 mmol/L Leycaf781-972PzhShtrht [place] HospitalComment on above:Performed By: #### BMP ####[facility] ([facility])[address] [address] VIRUrea nitrogen [Mass/Vol]27 mg/dLNormal5-27[facility] Comment on above:Performed By: #### BMP ####[facility] ([facility])[address] [address] VIRBEDSIDE GLUCOSEon 07-21-2025 Glucose [Mass/Vol]181 mg/gJTgeh08-34QonRooxniSumma Health Wadsworth - Rittman Medical CenterComment on above: Performed By: #### BMP #### [facility] ([facility]) [address] [place] [address] VIRGlucose [Mass/Vol]138 mg/vHCnaw48-50FjyYghxyj Posen HospitalComment on above:Performed By: #### BMP #### [facility] ([facility]) [address] [place] [address] VIRGlucose [Mass/Vol]100 mg/zKJzyv35-86XijQcqkmh Posen HospitalComment on above:Performed By: #### BEDG ####[facility] ([facility])[address] [place] [address] VIRCBC WITH AUTO DIFFERENTIALon [id number] ABSOLUTE COUNT (10*3/UL) BY AUTOMATED COUNT0.0 10*3/uLNormal 0.0-0.2[facility] Posen HospitalComment on above:Performed By: #### BMP #### [facility] LABORATORY ([facility]) [address] [place] [address] VIRBASOPHILS RELATIVE PERCENT BY AUTOMATED COUNT0.3 %Normal [facility] HospitalComment on above:Performed By: #### BMP #### [facility] ([facility]) [address] [place] [address] VIRCELLAVISION DIFFERENTIAL TYPEAUTOMATED DIFFERENTIALNormal [facility] HospitalComment on above:Performed By: #### BMP #### [facility] ([facility]) [address] [place] [address] VIREosinophils (Bld) [#/Vol]0.1 10*3/uLNormal0.0-0.4ProMedica Posen HospitalComment on above:Performed By: #### BMP #### [facility] ([facility]) [address] [place] [address] VIREOSINOPHILS RELATIVE PERCENT BY AUTOMATED COUNT2.1 %Normal [facility] HospitalComment on above:Performed By: #### BMP #### [facility] ([facility]) [address] [place] [address] VIRErythrocyte distribution width (RBC) [Ratio]16.0 %High 11.5-15Pro[facility]ica Posen HospitalComment on above:Performed By: #### BMP #### [facility] ([facility]) [address] [place] [address] VIRHematocrit (Bld) [Volume fraction]34.1 %Wbh39-45BpiCvbdnw Posen HospitalComment on above:Performed By: #### BMP #### [facility] ([facility]) [address] [place] [address] VIRHemoglobin (Bld) [Mass/Vol]11.6 g/dXDne21-08MfmDhwyfj [facility]osen HospitalComment on above:Performed By: #### BMP #### [facility] ([facility]) [address] [place] [address] VIRLYMPHOCYTES ABSOLUTE COUNT (10*3/UL) BY AUTOMATED COUNT0.8 10*3/uLLow1.0-3.5Pro[facility]ica Posen HospitalComment on above:Performed By: #### BMP #### [facility] ([facility]) [address] [place] [address] VIRLYMPHOCYTES RELATIVE PERCENT BY AUTOMATED COUNT11.9 %Normal [facility]osen HospitalComment on above:Performed By: #### BMP #### [facility] ([facility]) [address] [place] [address] VIRMCH (RBC) [Entitic mass]32.1 xoGdymji12-80DwcYeupsf [facility]osen HospitalComment on above:Performed By: #### BMP #### [facility] ([facility]) [address] [place] [address] VIRMCHC (RBC) [Mass/Vol]34.1 g/bMDqgimu73-02ZphIxadzn [facility] HospitalComment on above:Performed By: #### BMP #### [facility] ([facility]) [address] [place] [address] VIRMCV (RBC) [Entitic vol]94 tGHwtfoc86-121QdaFrzrhv [place] HospitalComment on above:Performed By: #### BMP #### [facility] ([facility]) [address] [place] [address] VIRMONOCYTES ABSOLUTE COUNT (10*3/UL) BY AUTOMATED COUNT0.7 10*3/uLNormal0.0-0.9ProThe [facility] HospitalComment on above:Performed By: #### BMP #### [facility] ([facility]) [address] [place] [address] VIRMONOCYTES RELATIVE PERCENT BY AUTOMATED COUNT11.1 %Normal [facility] HospitalComment on above:Performed By: #### BMP #### [facility] ([facility]) [address] [place] [address] VIRNEUTROPHILS ABSOLUTE COUNT BY AUTOMATED COUNT4.9 10*3/uL Normal1.5-6.6ProThe [facility] Hospital HospitalComment on above:Performed By: #### BMP #### [facility] ([facility]) [address] [place] [address] VIRNEUTROPHILS RELATIVE PERCENT BY AUTOMATED COUNT74.6 %Normal [facility] HospitalComment on above:Performed By: #### BMP #### [facility] ([facility]) [address] [place] [address] VIRPlatelet mean volume (Bld) [Entitic vol]8.4 fLNormal7-12 [facility] HospitalComment on above:Performed By: #### BMP #### [facility] ([facility]) [address] [place] [address] VIRPlatelets (Bld) [#/Vol]129 10*3/mMJrf470-378FveLlziqo [place] HospitalComment on above:Performed By: #### BMP #### [facility] ([facility]) [address] [place] [address] VIRRBC COUNT3.62 X10E12/LLow4.1-5.7[facility] Comment on above:Performed By: #### BMP #### [facility] ([facility]) [address] [place] [address] VIRWBC (Bld) [#/Vol]6.5 10*3/uLNormal4-11ProSumma Health Wadsworth - Rittman Medical CenterComment on above:Performed By: #### BMP #### [facility] ([facility]) [address] [place] [address] VIRHEMOGLOBIN AND HEMATOCRIT, BLOODon 72-82-4220Kdegopnonv (Bld) [Volume fraction]34.3 %Mhv88-12EmqKazfmmSumma Health Wadsworth - Rittman Medical CenterComment on above: Performed By: #### BMP #### [facility] ([facility]) [address] [place] [address] VIRHemoglobin (Bld) [Mass/Vol]11.5 g/pNWll34-50UawDcvfzmSumma Health Wadsworth - Rittman Medical CenterComment on above:Performed By: #### BMP #### [facility] ([facility]) [address] [place] [address] VIRHEMOGLOBIN AND HEMATOCRIT, BLOODHH HEMOGLOBIN AND HEMATOCRIT, BLOOD CancelledNoACMC Healthcare SystemLEGIONELLA ANTIGEN, URINEon 22-55-4336RZFNMPZWAO URINE AGNegativeNormalNegative, No L. pneumophila serogroup 1 AntigenProSumma Health Wadsworth - Rittman Medical CenterComment on above:Performed By: #### LEGU ####[facility] ([facility])[address], [place] [address] VIRLOWER RESP CULTURE SPUTUM CULTURE INC GRAM STAINon 07-43-6839UBUKO RESP CULTURE SPUTUM CULTURE INC GRAM STAINCULTURE RESULTS NORMAL RESPIRATORY ASTON GRAM STAIN 10 to 24 White Blood Cells/LPF 10 to 24 Squamous Epithelial Cells/LPF 0 to 1 Ciliated Epithelial Cells/LPF Moderate Gram positive cocci in pairs Few Gram positive cocci in chains Few Gram positive bacilliAbnormalProMedica Rivera HospitalComment on above: Performed By: #### BMP #### [facility] ([facility]) [address] [place] [address] VIRMAGNESIUMon 96-93-8402Nlsveswzl [Mass/Vol]1.9 mg/dLNormal 1.8-2.6Pro[facility]ica [facility]osen HospitalComment on above:Performed By: #### MG ####[facility] ([facility])[address] [place] [address] VIRPHOSPHORUSon 14-26-7516Gouyzpvae [Mass/Vol]3.0 mg/dLNormal2.4-4.9 [facility] HospitalComment on above:Performed By: #### PHOS #### [facility] ([facility]) [address] [place] [address] VIRPOTASSIUMon 01-17-9379GBNFVOTGTY POTASSIUM CancelledNormal [facility]osen HospitalPotassium [Moles/Vol]3.3 mmol/LLow3.5-5.0Pro[facility] Posen HospitalComment on above:Performed By: #### K #### [facility] ([facility]) [address] [place] [address] VIRPROCALCITONINon 16-32-5701WWRNVMACTOYCM<^0.05Normal<0.05 [facility] HospitalComment on above:Order Comment: <0.50 ng/mL - Low risk of severe sepsis and/or septic shock. <2.00 ng/mL - Recommend retesting within 6-24 hours. >2.00 ng/mL - High risk of sepsis and/or septic shock.Performed By: #### PCAL #### [facility] ([facility]) [address] [place] [address] VIRPROTIME AND INRon 55-07-1932NMF0.2High0.9-1.2[facility]osen HospitalComment on above:Performed By: #### PINR ####[facility] ([facility])[address] [facility] [address] [address] VIRPT Coag (PPP) [Time]24.7 sHigh9.8-13.2Pro[facility] Rivera HospitalComment on above:Performed By: #### PINR ####[facility] ([facility])[address] [facility] [address] [place] [address] VIRS PNEUMONIAE AG Uon 07-21-2025S PNEUMONIAE AG UNegative NormalNegativeProMedica Rivera HospitalComment on above:Performed By: #### SPNEAU ####[facility] ([facility])[address] [facility] [address] [address] VIRURINALYSISon 24-59-1184Nzvrhbqyx Ql (U)NegativeNormal NegativeProMedica Rivera HospitalComment on above:Performed By: #### UA ####[facility] ([facility])[address] [facility] [address] [address] VIRBLOOD/HGBLargeAbnormalNegativeProMedica Rivera HospitalComment on above:Performed By: #### UA ####[facility] ([facility])[address] [facility] [address] [address] VIRColor (U)YellowNormalYellowProMedica Rivera HospitalComment on above:Performed By: #### UA ####[facility] ([facility])[address] [facility] [address] [address] VIRGlucose Ql (U)>1000 mg/dLAbnormalNegativeProMedica Rivera HospitalComment on above:Performed By: #### UA ####[facility] ([facility])[address] [facility] [address] [place] [address] VIRKetones Ql (U)NegativeNormalNegativeProMedica Rivera HospitalComment on above:Performed By: #### UA ####[facility] ([facility])[address] [facility] [address] [place] [address] VIRLeukocyte esterase Test strip Ql (U)NegativeNormalNegativeProMedica Rivera HospitalComment on above:Result Comment: High Concentrations of Glucose May Decrease the Reactivity of the Dipstick Leukocyte Test Pad.Performed By: #### UA ####[facility] ([facility])[address], [place] [address] VIRNitrite Ql (U)NegativeNormalNegativeProMedica Rivera HospitalComment on above:Performed By: #### UA ####[facility] ([facility])[address], [place] [address] VIRPH,URINE6.4Prfkqu6.0-8.5[facility] HospitalComment on above:Performed By: #### UA ####[facility] ([facility])[address], [place] [address] VIRProtein Ql (U)30 mg/dLAbnormalNegative [facility] HospitalComment on above:Performed By: #### UA ####[facility] ([facility])[address], [place] [address] VIR R.B.COJCX965Fvzn1-7RhaXhfxoo Rivera HospitalComment on above:Performed By: #### UA ####[facility] ([facility])[address], [place] [address] VIRSpecific gravity (U) [Rel density]1.769Igdaef9.003-1.035Pro[facility] Rivera HospitalComment on above:Performed By: #### UA ####[facility] ([facility])[address], [place] [address] VIRSQUAMOUS EPITHELIUM<^2Lmxpvr7-9UaiNfhwve Rivera HospitalComment on above:Performed By: #### UA ####[facility] ([facility])[address], [place] [address] VIRTURBIDITYClearNormalClearProMedica Rivera HospitalComment on above:Performed By: #### UA ####[facility] ([facility])[address] [facility] [address] [address] VIRUROBILINOGEN<1.1 eu/dLNormal<1.1 eu/dL [facility] Rivera HospitalComment on above:Performed By: #### UA ####[facility] ([facility])[address] [facility] [address] [place] [address] VIR W.B.OFPQS5Btzeum4-7QnwOhmcku Rivera HospitalComment on above:Performed By: #### UA ####[facility] ([facility])[address] [facility] [address] [address] VIRAPTTon 09-62-2426pJHC Coag (Bld) [Time]35 tBgrcxh51-50HfiHwxcst Rivera HospitalComment on above:Performed By: #### PTT #### [facility] ([facility]) [address] [place] [address] VIRBASIC METABOLIC PANELon 98-47-4712Wqgha gap [Moles/Vol]9 mmol/LNormal5-15[facility] HospitalComment on above:Performed By: #### BMP #### [facility] ([facility]) [address] [place] [address] VIRCalcium [Mass/Vol]8.4 mg/dLLow8.5-10.5Pro[facility] HospitalComment on above:Performed By: #### BMP #### [facility] ([facility]) [address] [place] [address] VIRChloride [Moles/Vol]106 mmol/RDpmahu54-008JegIeomze Rivera HospitalComment on above:Performed By: #### BMP #### [facility] ([facility]) [address] [place] [address] VIRCO2 [Moles/Vol]23 mmol/WCdaekl42-43MxrDniony [facility] Comment on above:Performed By: #### BMP #### [facility] ([facility]) [address] [place] [address] VIRCreatinine [Mass/Vol]1.07 mg/dLNormal0.60-1.30ProThe [facility] HospitalComment on above:Result Comment: METHOD TRACEABLE TO IDMS STANDARDPerformed By: #### BMP #### [facility] ([facility]) [address] [place] [address] VIRGFR/1.73 sq M.predicted among non-blacks MDRD (S/P/Bld) [Vol rate/Area]68 mL/min/{1.73_m2}Normal>=60ProKing'S Daughters Medical Center Ohioca Posen HospitalComment on above:Result Comment: Reported eGFR is based on the CKD-EPI 2020 equation that does not use a race coefficient.Performed By: #### BMP #### [facility] ([facility]) [address] [place] [address] VIRGlucose [Mass/Vol]100 mg/qKIrey31-35IegNrntwo [place] HospitalComment on above:Performed By: #### BMP #### [facility] ([facility]) [address] [place] [address] VIRPotassium [Moles/Vol]3.4 mmol/LLow3.5-5.0ProThe [facility] HospitalComment on above:Performed By: #### BMP #### [facility] ([facility]) [address] [place] [address] VIRSodium [Moles/Vol]138 mmol/GFapvst010-741EkvHhpvle [place] HospitalComment on above:Performed By: #### BMP #### [facility] ([facility]) [address] [place] [address] VIRUrea nitrogen [Mass/Vol]31 mg/dLHigh5-27ProThe [facility] HospitalComment on above:Performed By: #### BMP #### [facility] ([facility]) [address] [place] [address] VIRCBC WITH AUTO DIFFERENTIALon 96-35-3243IJPUUAPTZ ABSOLUTE COUNT (10*3/UL) BY AUTOMATED COUNT0.0 10*3/uLNormal0.0-0.2[facility] HospitalComment on above:Performed By: #### CBCA #### [facility] ([facility]) [address] [place] [address] VIRBASOPHILS RELATIVE PERCENT BY AUTOMATED COUNT0.2 %Normal [facility] HospitalComment on above:Performed By: #### CBCA #### [facility] ([facility]) [address] [place] [address] VIRCELLAVISION DIFFERENTIAL TYPEAUTOMATED DIFFERENTIALNormal [facility] HospitalComment on above:Performed By: #### CBCA #### [facility] ([facility]) [address] [place] [address] VIREosinophils (Bld) [#/Vol]0.1 10*3/uLNormal0.0-0.4ProKing'S Daughters Medical Center Ohioca Posen HospitalComment on above:Performed By: #### CBCA #### [facility] ([facility]) [address] [place] [address] VIREOSINOPHILS RELATIVE PERCENT BY AUTOMATED COUNT1.3 %Normal [facility] HospitalComment on above:Performed By: #### CBCA #### [facility] ([facility]) [address] [place] [address] VIRErythrocyte distribution width (RBC) [Ratio]16.0 %High 11.5-15ProKing'S Daughters Medical Center Ohioca Posen HospitalComment on above:Performed By: #### CBCA #### [facility] ([facility]) [address] [place] [address] VIRHematocrit (Bld) [Volume fraction]35.0 %Wwj98-88OfwHkojsn [place] HospitalComment on above:Performed By: #### CBCA #### [facility] ([facility]) [address] [place] [address] VIRHemoglobin (Bld) [Mass/Vol]11.9 g/zCRug66-67CiuRbnasf Rivera HospitalComment on above:Performed By: #### CBCA #### [facility] ([facility]) [address] [place] [address] VIRLYMPHOCYTES ABSOLUTE COUNT (10*3/UL) BY AUTOMATED COUNT0.8 10*3/uLLow1.0-3.5Pro[facility] HospitalComment on above:Performed By: #### CBCA #### [facility] ([facility]) [address] [place] [address] VIRLYMPHOCYTES RELATIVE PERCENT BY AUTOMATED COUNT11.4 %Normal [facility] HospitalComment on above:Performed By: #### CBCA #### [facility] ([facility]) [address] [place] [address] VIRMCH (RBC) [Entitic mass]31.7 phFyurxx37-88AneDobwsd Rivera HospitalComment on above:Performed By: #### CBCA #### [facility] ([facility]) [address] [place] [address] VIRMCHC (RBC) [Mass/Vol]34.0 g/fHJrwkke94-31TryKftdyh [facility] HospitalComment on above:Performed By: #### CBCA #### [facility] ([facility]) [address] [place] [address] VIRMCV (RBC) [Entitic vol]93 lMEzyekw64-074MwkPkamjl Rivera HospitalComment on above:Performed By: #### CBCA #### [facility] ([facility]) [address] [place] [address] VIRMONOCYTES ABSOLUTE COUNT (10*3/UL) BY AUTOMATED COUNT1.0 10*3/uLHigh0.0-0.9Pro[facility] HospitalComment on above:Performed By: #### CBCA #### [facility] ([facility]) [address] [place] [address] VIRMONOCYTES RELATIVE PERCENT BY AUTOMATED COUNT13.3 %Normal [facility]MM[facility] HospitalComment on above:Performed By: #### CBCA #### [facility] ([facility]) [address] [place] [address] VIRNEUTROPHILS ABSOLUTE COUNT BY AUTOMATED COUNT5.4 10*3/uL Normal1.5-6.6ProThe [facility] HospitalComment on above:Performed By: #### CBCA #### [facility] ([facility]) [address] [place] [address] VIRNEUTROPHILS RELATIVE PERCENT BY AUTOMATED COUNT73.8 %Normal [facility] HospitalComment on above:Performed By: #### CBCA #### [facility] ([facility]) [address] [place] [address] VIRPlatelet mean volume (Bld) [Entitic vol]8.2 fLNormal7-12 [facility]MM[facility] HospitalComment on above:Performed By: #### CBCA #### [facility] ([facility]) [address] [place] [address] VIRPlatelets (Bld) [#/Vol]132 10*3/dTZbn888-110PjzQqkjbz [place] HospitalComment on above:Performed By: #### CBCA #### [facility] ([facility]) [address] [place] [address] VIRRBC COUNT3.76 X10E12/LLow4.1-5.7ProThe [facility] Hospital Comment on above:Performed By: #### CBCA #### [facility] ([facility]) [address] [place] [address] VIRWBC (Bld) [#/Vol]7.3 10*3/uLNormal4-11ProThe [facility] HospitalComment on above:Performed By: #### CBCA #### [facility] ([facility]) [address] [place] [address] VIRPROTIME AND INRon 20-42-9667UJL2.3High0.9-1.2PWayne Hospital HospitalComment on above:Performed By: #### PINR #### [facility] ([facility]) [address] [place] [address] VIRPT Coag (PPP) [Time]26.6 sHigh9.8-13.2PWayne Hospital HospitalComment on above:Performed By: #### PINR #### [facility] ([facility]) [address] [place] [address] VIRREPEATED ABORHon 40-70-3654RAT_IGYTXVIfjcjeCfnKmkrxs Posen HospitalComment on above:Performed By: #### ABORHR #### [facility] PRABHAKAR MELENDEZ (PTH) [address] [place] [address] VIRRH_INTEPPositiveNormalProMedica [place] HospitalComment on above:Performed By: #### ABORHR #### [facility] PRABHAKAR MELENDEZ (PTH) [address] [place] [address] VIRTYPE AND SCREENon [id number]_KIDZVEVfpdggKydOyrhna [place] HospitalComment on above:Performed By: #### TSC #### [facility] PRABHAKAR MELENDEZ (PTH) [address] [place] [address] VIRRH_INTEPPositiveNormalProMedica [place] HospitalComment on above:Performed By: #### TSC #### [facility] PRABHAKAR MELENDEZ (PTH) [address] [place] [address] VIRXR CHEST 1 VWon [id number] CHEST 1 VWXR CHEST 1 VW Single view chest History: Dyspnea. Pneumonia. Comparison: [...] by Francisco Cheney MD on 07/20/2025 7:46 PMNormalProMedica Acmc Healthcare SystemAlanine aminotransferase [Enzymatic activity/volume] in Serum or Plasma Ordered By: Madyson Galvez on [id number] [Catalytic activity/Vol]29 U/LNormal 7-52Brown Memorial HospitalComment on above:Performed By: #### BNP, HS TROP, CUBLD, CMP, PT, LACTIC, CBC #### [facility] [address] [place] [address] USAAlbumin [Mass/volume] in Serum or Plasma by Bromocresol green (BCG) dye binding methoOrdered By: Madyson Galvez on 98-18-2406Kfuwnkm BCG dye [Mass/Vol]3.8 g/dL3.5-5.7FBluffton HospitalAlkaline phosphatase [Enzymatic activity/volume] in Serum or PlasmaOrdered By: Madyson Galvez on 75-82-1384ZCD [Catalytic activity/Vol]90 U/MVbknkm69-429RlskaceclBrown Memorial HospitalComment on above:Performed By: #### BNP, HS TROP, CUBLD, CMP, PT, LACTIC, CBC #### [facility] [address] [place] [address] USAAppearance of UrineOrdered By: Madyson Galvez on 22-66-8262Spsfwaayby (U)ClearNormalClearBrown Memorial HospitalComment on above:Order Comment: Name Collection Type:: Clean-Voided MidstreamPerformed By: #### BNP, HS TROP, CUBLD, CMP, PT, LACTIC, CBC #### [facility] [address] [place] [id number] USAAspartate aminotransferase [Enzymatic activity/volume] in Serum or PlasmaOrdered By: Madyson Galvez on [id number] [Catalytic activity/Vol]27 U/THnfcov11-37ZhkaqaginBrown Memorial HospitalComment on above: Performed By: #### BNP, HS TROP, CUBLD, CMP, PT, LACTIC, CBC #### [facility] [address] [place] [id number] USABNP ser/plasOrdered By: Madyson Galvez on 07-04-2025 Natriuretic peptide B (Bld) [Mass/Vol]267.0 pg/mLHigh5-100Brown Memorial HospitalComment on above:Result Comment: PERFORMED BY: [place] [address] PATHOLOGIST [employer] REYMUNDO POOLE M.D.Performed By: #### BNP, HS TROP, CUBLD, CMP, PT, LACTIC, CBC #### [place] [address] USABasophils [#/volume] in Blood by Automated countOrdered By: Madyson Galvez on 65-53-5306Graaqulxc (Bld) [#/Vol]0.0 10*3/uLNormal0.0-0.2 Brown Memorial HospitalComment on above:Result Comment: PERFORMED BY: [place] [address] PATHOLOGIST [employer] REYMUNDO POOLE M.D.Performed By: #### BNP, HS TROP, CUBLD, CMP, PT, LACTIC, CBC #### [place] [address] USABasophils/100 leukocytes in Blood by Automated count Ordered By: Madyson Galvez on 14-82-8206Tmepiawjb/100 WBC (Bld)0.4 %Normal. Brown Memorial HospitalComment on above:Performed By: #### BNP, HS TROP, CUBLD, CMP, PT, LACTIC, CBC #### [place] [id number] USABilirubin Test strip Ql (U)Ordered By: Madyson Galvez on 07-04-8960Ixxwnxldp Ql (U)NegativeNegativeBrown Memorial Hospital Bilirubin.total [Mass/volume] in Serum or PlasmaOrdered By: Madyson Galvez on 58-86-3364Qclfqcneb [Mass/Vol]0.7 mg/dLNormal0.3-1.0Brown Memorial HospitalComment on above:Performed By: #### BNP, HS TROP, CUBLD, CMP, PT, LACTIC, CBC #### [facility] [address] [place] [address] USABlood Cultureon 09-25-3734Sigfqpub identified Cx Nom (Bld) NO GROWTH 5 DAYS PERFORMED BY: [place] [address] PATHOLOGIST [employer] REYMUNDO POOLE M.D.[facility] Physician GroupComment on above: Performed By: #### BNP, HS TROP, CUBLD, CMP, PT, LACTIC, CBC #### [place] [address] USABacteria identified Cx Nom (Bld)NO GROWTH 5 DAYS PERFORMED BY: [place] [address] PATHOLOGIST [employer] REYMUNDO POOLE M.D.[facility] Physician GroupComment on above: Performed By: #### BNP, HS TROP, CUBLD, CMP, PT, LACTIC, CBC #### [place] [address] USACalcium [Mass/volume] in Serum or PlasmaOrdered By: Madyson Galvez on 56-50-3926Hsybmrl [Mass/Vol]9.0 mg/dLNormal8.6-10.3FBluffton HospitalComment on above:Performed By: #### BNP, HS TROP, CUBLD, CMP, PT, LACTIC, CBC #### [facility] [address] [place] [address] USACarbon dioxide, total [Moles/volume] in Serum or Plasma Ordered By: Madyson Galvez on 07-55-2992RQ7 [Moles/Vol]21.6 mmol/LNormal 21.0-31.0Brown Memorial HospitalComment on above:Performed By: #### BNP, HS TROP, CUBLD, CMP, PT, LACTIC, CBC #### [place] [address] USAChloride [Moles/volume] in Serum or PlasmaOrdered By: Madyson Galvez on 44-59-2706Eqwvuhaj [Moles/Vol]107 mmol/QUeaytp38-414OxlerbutsBrown Memorial HospitalComment on above:Performed By: #### BNP, HS TROP, CUBLD, CMP, PT, LACTIC, CBC #### [place] [address] USAColor of Urine by AutoOrdered By: Madyson Galvez on 48-90-5055Chuak (U)YellowNormalYMarion HospitalComment on above:Order Comment: Name Collection Type:: Clean-Voided MidstreamPerformed By: #### BNP, HS TROP, CUBLD, CMP, PT, LACTIC, CBC #### [facility] [address] [place] [address] USAComplete Blood Count Auto Diffon 48-32-1103Gnkd Corpuscular HGB Conc33.3 g/zQYpbufh29.5-35.6The [facility] Physician GroupComment on above:Performed By: #### BNP, HS TROP, CUBLD, CMP, PT, LACTIC, CBC #### [place] [address] USAMonocytes/100 WBC (Bld)18.67 %Normal0.00-20.00The [facility] Physician GroupComment on above:Performed By: #### BNP, HS TROP, CUBLD, CMP, PT, LACTIC, CBC #### [place] [address] USANRBC%0.1 /100{WBC}Normal0-0.5[facility] Comment on above:Performed By: #### BNP, HS TROP, CUBLD, CMP, PT, LACTIC, CBC #### [place] [address] USAWhite Blood Count7.7 [CFU]/mLNormal4.1-10.5The [facility] Physician GroupComment on above:Performed By: #### BNP, HS TROP, CUBLD, CMP, PT, LACTIC, CBC #### [place] [address] USAComprehensive Metabolic Panelon 99-84-9227Cmzkvyr [Mass/Vol]3.8 g/dLNormal3.5-5.7The [facility] Physician GroupComment on above: Performed By: #### BNP, HS TROP, CUBLD, CMP, PT, LACTIC, CBC #### [facility] [address] [place] [address] USACreatinine Clr Calc Zprafxhp38.54NormalThe [facility] Physician [facility] Health RankinComment on above:Result Comment: PERFORMED BY: [place] [address] PATHOLOGIST [employer] REYMUNDO POOLE M.D.Performed By: #### BNP, HS TROP, CUBLD, CMP, PT, LACTIC, CBC #### [facility] [address] [place] [address] USAGFR/1.73 sq M.predicted MDRD (S/P/Bld) [Vol rate/Area] 59.632 mL/min/{1.73_m2}NormalThe [facility] Physician [facility] Health RankinComment on above: Performed By: #### BNP, HS TROP, CUBLD, CMP, PT, LACTIC, CBC #### [facility] [address] [place] [address] USACreatinine [Mass/volume] in Serum or PlasmaOrdered By: Madyson Galvez on 74-24-9878Ufnklwvsdy [Mass/Vol]1.20 mg/dLNormal0.70-1.30 Brown Memorial HospitalComment on above:Performed By: #### BNP, HS TROP, CUBLD, CMP, PT, LACTIC, CBC #### [facility] [address] [id number] USAECG 12 lead ECGon 85-14-5909EMC 12 lead ECGTHE [facility] [place] [address] Electrocardiograph Report Signed Patient: Juliette Morrow MR#: [id number] : 1940 Acct:[id number] Age/Sex: 85 / M ADM Date: 07/04/25 Loc: ER Room: Type: [facility] ER Attending Dr: Ordering Provider: Madyson [...] branch block Confirmed by Madyson Galvez MD ([id number]) on 07/04/2025 3:00:33 PM Referred By: Electronically Signed By: Madyson Galvez MD Transcribed By: MUS Signed By Madyson Galvez MD 03/[address] [place] [address] Physician GroupECG 12 lead [facility]GT[facility] [place] [address] [place] [address] Electrocardiograph Report Signed Patient: Juliette Morrow SR MR#: [id number] : 1940 Acct:[id number] Age/Sex: 85 / M ADM Date: 07/04/25 Loc: ER Room: Type: [facility] ER Attending Dr: Ordering Provider: Madyson [...] branch block Confirmed by Madyson Galvez MD ([id number]) on 07/04/2025 3:00:49 PM Referred By: Electronically Signed By: Madyson Galvez MD Transcribed By: MUS Signed By Madyson Galvez MD 03/[address] [place] [address] Physician GroupEosinophils [#/volume] in Blood by Automated countOrdered By: Madyson Galvez on 68-16-5753Qbgsylnaqhk (Bld) [#/Vol] 0.1 10*3/uLNormal0.0-0.45Brown Memorial HospitalComment on above: Performed By: #### BNP, HS TROP, CUBLD, CMP, PT, LACTIC, CBC #### [facility] [address] [place] [id number] USAEosinophils/100 leukocytes in Blood by Automated count Ordered By: Madyson Galvez on 53-11-0671Hixgielidms/100 WBC (Bld)1.6 %Normal. Brown Memorial HospitalComment on above:Performed By: #### BNP, HS TROP, CUBLD, CMP, PT, LACTIC, CBC #### [facility] [address] [place] [address] USAErythrocyte distribution width [Ratio] by Automated count Ordered By: Madyson Galvez on 34-99-0557Bwwyovbanbl distribution width (RBC) [Ratio]16.3 %High12.0-14.8Brown Memorial HospitalComment on above: Performed By: #### BNP, HS TROP, CUBLD, CMP, PT, LACTIC, CBC #### [facility] [address] [place] [address] USAErythrocytes [#/volume] in Blood by Automated countOrdered By: Madyson Galvez on 31-90-4612LSQ (Bld) [#/Vol]4.20 10*6/uLNormal3.90-5.60 Brown Memorial HospitalComment on above:Performed By: #### BNP, HS TROP, CUBLD, CMP, PT, LACTIC, CBC #### [facility] [address] [place] [address] USAGlomerular filtration rate [Volume Rate/Area] in Serum, Plasma or Blood by CreatinineOrdered By: Madyson Galvez on 11-84-0544Bzpckzmseo filtration rate [Volume Rate/Area] in Serum, Plasma or Blood by Ialubxzptt44.632 mL/MinBrown Memorial HospitalGlucose [Mass/volume] in Serum or Plasma Ordered By: Madyson Galvez on 71-71-2371Vuruvim [Mass/Vol]110 mg/oXUrcu59-749 Brown [facility] HospitalComment on above:ADA recommended reference rangeRandom [...] TROP, CUBLD, CMP, PT, LACTIC, CBC #### [facility] [address] [id number] USAGlucose [Mass/volume] in Urine by Test stripOrdered By: Madyson Galvez on 44-39-1594Wdgkgus Test strip (U) [Mass/Vol]>=1000 mg/dLHigh NormalBrown Memorial HospitalHematocrit [Volume Fraction] of Blood by Automated countOrdered By: Madyson Galvez on 70-16-0569Feeickvkya (Bld) [Volume fraction]40.1 %Fiopgy60.8-50.0Brown Memorial HospitalComment on above: Performed By: #### BNP, HS TROP, CUBLD, CMP, PT, LACTIC, CBC #### [facility] [address] [place] [address] USAHemoglobin Test strip Ql (U)Ordered By: Madyson Galvez on 50-55-0466Jmjfvixsux Ql (U)NegativeNegativeBrown Memorial Hospital Hemoglobin [Mass/volume] in BloodOrdered By: Madyson Galvez on 07-04-2025 Hemoglobin (Bld) [Mass/Vol]13.4 g/yPIosaxd82.0-17.0Brown Memorial HospitalComment on above:Performed By: #### BNP, HS TROP, CUBLD, CMP, PT, LACTIC, CBC #### [address] [address] USAINR in Platelet poor plasma by Coagulation assayOrdered By: Madyson Galvez on 50-64-7528VBM Coag (PPP) [Relative time]1.7 {INR}Normal Brown Memorial HospitalComment on above:INR Therapeutic Range A) [...] heart valves: 3 - 4.5 PERFORMED BY: [place] [id number] PATHOLOGIST [employer] REYMUNDO POOLE M.D.Performed By: #### BNP, HS TROP, CUBLD, CMP, PT, LACTIC, CBC #### [address] [address] USAKetones [Presence] in Urine by Test stripOrdered By: Madyson Galvez on 00-53-7132Juusyjt Ql (U)NegativeNormalSt. Vincent HospitalComment on above:Order Comment: Name Collection Type:: Clean-Voided MidstreamPerformed By: #### BNP, HS TROP, CUBLD, CMP, PT, LACTIC, CBC #### [address] [address] USALactate [Moles/volume] in Serum or PlasmaOrdered By: Madyson Galvez on 81-29-0634Clcgtle [Moles/Vol]1.0 mmol/LNormal0.5-1.9Brown Memorial HospitalComment on above:Lactic Acid reference range has been updated to 0.5 1.9 mmol/L and the critical range of 2.0 or greater.Result Comment: Lactic Acid reference range has been updated to 0.5 ? 1.9 mmol/L and the critical range of 2.0 or greater. PERFORMED BY: [facility] [address] [place] [address] PATHOLOGIST [employer] REYMUNDO POOLE M.D.Performed By: #### BNP, HS TROP, CUBLD, CMP, PT, LACTIC, CBC #### [facility] [address] [place] [address] USALeukocyte esterase [Presence] in Urine by Test strip Ordered By: Madyson Galvez on 10-70-3678Lmxtccmun esterase Test strip Ql (U) NegativeNormalNegativeBrown Memorial HospitalComment on above:Order Comment: Name Collection Type:: Clean-Voided MidstreamPerformed By: #### BNP, HS TROP, CUBLD, CMP, PT, LACTIC, CBC #### [facility] [address] [place] [address] USALeukocytes [#/volume] corrected for nucleated erythrocytes in Blood by Automated counOrdered By: Madyson Galvez on 20-21-6461FHR corrected for nucl RBC Auto (Bld) [#/Vol]7.7 10*3/uL4.1-10.5FBluffton HospitalLeukocytes [#/volume] in Blood by Automated countOrdered By: Madyson Galvez on 13-95-4006OTI (Bld) [#/Vol]7.7 10*3/uLNormal4.1-10.5FBluffton HospitalComment on above:Performed By: #### BNP, HS TROP, CUBLD, CMP, PT, LACTIC, CBC #### [facility] [address] [place] [address] USALymphocytes [#/volume] in Blood by Automated countOrdered By: Madyson Galvez on 47-49-5379Hujyqcvwsfy (Bld) [#/Vol]0.7 10*3/uLLow1.00-4.8 Brown Memorial HospitalComment on above:Performed By: #### BNP, HS TROP, CUBLD, CMP, PT, LACTIC, CBC #### [facility] [address] [place] [address] USALymphocytes/100 leukocytes in Blood by Automated count Ordered By: Madyson Galvez on 50-52-7863Zqxysfavxmc/100 WBC (Bld)9.3 %Normal. Brown Memorial HospitalComment on above:Performed By: #### BNP, HS TROP, CUBLD, CMP, PT, LACTIC, CBC #### [place] [address] USAH [Entitic mass] by Automated countOrdered By: Madyson Galvez on 24-71-8838MHD (RBC) [Entitic mass]31.8 wtTogwhm46.5-35.2FBluffton HospitalComment on above:Performed By: #### BNP, HS TROP, CUBLD, CMP, PT, LACTIC, CBC #### [facility] [address]HC Auto (RBC) [Mass/Vol]Ordered By: Madyson Galvez on 39-82-1138PQYG (RBC) [Mass/Vol]33.3 g/dL32.5-35.6FBluffton HospitalMCV [Entitic volume] by Automated countOrdered By: Madyson Galvez on 25-46-7825RNR (RBC) [Entitic vol]95.3 jGZvaqmq15.5-101Brown Memorial HospitalComment on above:Performed By: #### BNP, HS TROP, CUBLD, CMP, PT, LACTIC, CBC #### [facility] [address] [place] [address] USAMonocyte distribution width [Entitic volume] in Blood by AutomatedOrdered By: Madyson Galvez on 70-98-0265Vvmzvrul distribution width Auto (Bld) [Entitic vol]18.67 %0.00-20.00[facility] Monocytes [#/volume] in Blood by Automated countOrdered By: Madyson Galvez on 91-24-8139Qkcchqwbd (Bld) [#/Vol]0.9 10*3/uLHigh0.0-0.8Brown Memorial HospitalComment on above:Performed By: #### BNP, HS TROP, CUBLD, CMP, PT, LACTIC, CBC #### [facility] [address] [place] [address] USAMonocytes/100 leukocytes in Blood by Automated count Ordered By: Madyson Galvez on 52-38-4120Syjwwzsog/100 WBC (Bld)12.0 %Normal. [facility] Memorial HospitalComment on above:Performed By: #### BNP, HS TROP, CUBLD, CMP, PT, LACTIC, CBC #### [facility] [address] [place] [address] USANeutrophils [#/volume] in Blood by Automated countOrdered By: Madyson Galvez on 61-15-6919Tcxpmncaxun (Bld) [#/Vol]5.9 10*3/uLNormal 1.8-7.7FBluffton HospitalComment on above:Performed By: #### BNP, HS TROP, CUBLD, CMP, PT, LACTIC, CBC #### [facility] [address] [place] [id number] USANeutrophils/100 leukocytes in Blood by Automated count Ordered By: Madyson Galvez on 24-30-4187Gigvvytzqco/100 WBC (Bld)76.7 %Normal. [facility] Memorial HospitalComment on above:Performed By: #### BNP, HS TROP, CUBLD, CMP, PT, LACTIC, CBC #### [facility] [address] [place] [address] USANitrite Test strip Ql (U)Ordered By: Madyson Galvez on 53-06-4531Tvtntlv Ql (U)NegativeNegativeBrown Memorial HospitalNo Panel InformationOrdered By: Madyson Galvez on 76-21-1570Holvhhzj Creatinine Clearance (Chem39.54Brown Memorial HospitalNucleated erythrocytes [Presence] in Blood by Automated countOrdered By: Madyson Galvez on 07-04-2025 Nucleated RBC Auto Ql (Bld)0.1 /100{WBC}0-0.5FBluffton Hospital Platelet mean volume [Entitic volume] in Blood by Automated countOrdered By: Madyson Galvez on 65-56-1251Zrwymfyk mean volume (Bld) [Entitic vol]8.4 fLNormal 6.6-10.1FBluffton HospitalComment on above:Performed By: #### BNP, HS TROP, CUBLD, CMP, PT, LACTIC, CBC #### [facility] [address] [place] [address] USAPlatelets [#/volume] in Blood by Automated countOrdered By: Madyson Galvez on 08-83-2542Bnqdvmwwc (Bld) [#/Vol]181 10*3/dVYpielp077-385 [facility] HospitalComment on above:Performed By: #### BNP, HS TROP, CUBLD, CMP, PT, LACTIC, CBC #### [facility] [address] [place] [id number] USAPotassium [Moles/volume] in Serum or PlasmaOrdered By: Madyson Galvez on 35-02-3644Eqflmvcrk [Moles/Vol]4.5 mmol/LNormal3.5-5.1 [facility] Memorial HospitalComment on above:Performed By: #### BNP, HS TROP, CUBLD, CMP, PT, LACTIC, CBC #### [facility] [address] [place] [address] USAProtein Test strip (U) [Mass/Vol]Ordered By: Madyson Galvez on 29-30-6880Eveuxfg (U) [Mass/Vol]NegativeNegativeBrown Memorial HospitalProtein [Mass/volume] in Serum or PlasmaOrdered By: Madyson Galvez on 13-38-5470Lbcnhzv [Mass/Vol]7.5 g/dLNormal6.4-8.9[facility] Memorial HospitalComment on above:Performed By: #### BNP, HS TROP, CUBLD, CMP, PT, LACTIC, CBC #### [facility] [address] [place] [address] USAProthrombin time (PT)Ordered By: Madyson Galvez on 04-33-0685CY Coag (PPP) [Time]19.1 sHigh9.0-12.9Brown Memorial HospitalComment on above:A hematocrit value greater than 55% may lead to inaccurate results in coagulation testing. Patientshaving hematocrit values >55% require a special collection tube for coagulation studies. Please contact the laboratory at [phone] for redraw instructions.Result Comment: A hematocrit value greater than 55% may lead to inaccurate results in coagulation testing. Patients having hematocrit values >55% require a special collection tube for coagulation studies. Please contact the laboratory at [phone] for redraw instructions.Performed By: #### BNP, HS TROP, CUBLD, CMP, PT, LACTIC, CBC #### [facility] [address] [place] [address] USASerum globulin measurement by calculation (mass/volume) Ordered By: Madyson Galvez on 58-06-2324Rflawcmo (S) [Mass/Vol]3.7 g/dLNormal [facility] HospitalComment on above:Performed By: #### BNP, HS TROP, CUBLD, CMP, PT, LACTIC, CBC #### [facility] [address] [place] [address] USASerum or plasma albumin/globulin mass ratioOrdered By: Madyson Galvez on 83-74-2904Fxkapwc/Globulin [Mass ratio]1.0 {ratio}Normal [facility] Memorial HospitalComment on above:Performed By: #### BNP, HS TROP, CUBLD, CMP, PT, LACTIC, CBC #### [facility] [address] [place] [address] USASerum or plasma anion gap determinationOrdered By: Madyson Galvez on 70-19-2392Beydz gap [Moles/Vol]9.9 mmol/LNormal6.0-15.0[facility] Memorial HospitalComment on above:Performed By: #### BNP, HS TROP, CUBLD, CMP, PT, LACTIC, CBC #### [place] [address] USASodium [Moles/volume] in Serum or PlasmaOrdered By: Madyson Galvez on 55-12-9571Xhzfkn [Moles/Vol]134 mmol/FXsq861-554IdmpblrskBrown Memorial HospitalComment on above:Performed By: #### BNP, HS TROP, CUBLD, CMP, PT, LACTIC, CBC #### [place] [address] USASpecific gravity Test strip (U) [Rel density]Ordered By: Madyson Galvez on 22-54-7976Xbtkwgoz gravity (U) [Rel density]1.0191.001-1.030 [facility] HospitalTroponin I High Sensitivityon 07-04-2025 Troponin I High Cwufcbqxbnr9Edlzqw4-37Gvi [facility] Physician GroupComment on above:Result Comment: The Troponin units of report have been changed to meet the Chest Pain Accreditation requirement, element EC5.M1l2. Troponin units are changed from pg/ml to ng/L. Also, the decimal is removed and results are in whole numbers. PERFORMED BY: [place] [address] PATHOLOGIST [employer] REYMUNDO POOLE M.D.Performed By: #### HS TROP #### [place] [address] USATroponin I High Hmgjjiggkde20Vhqiyq3-81Tme [facility] Physician GroupComment on above:Result Comment: The Troponin units of report have been changed to meet the Chest Pain Accreditation requirement, element EC5.M1l2. Troponin units are changed from pg/ml to ng/L. Also, the decimal is removed and results are in whole numbers. PERFORMED BY: [place] [address] PATHOLOGIST [employer] REYMUNDO POOLE M.D.Performed By: #### BNP, HS TROP, CUBLD, CMP, PT, LACTIC, CBC #### [place] [address] USATroponin I.cardiac [Mass/volume] in Serum or Plasma by Detection limit <= 0.01 ng/mLOrdered By: Madyson Galvez on 73-94-8708Jpnxtpve I.cardiac DL <= 0.01 ng/mL [Mass/Vol]9 ng/L0[facility] Comment on above:The Troponin units of report have been changed to meet the Chest Pain Accreditation requirement, element EC5.M1l2. Troponin units are changed from pg/ml to ng/L. Also, the decimal is removed and results are in whole numbers.Urea nitrogen [Mass/volume] in Serum or PlasmaOrdered By: Madyson Galvez on 53-93-5309Xaqr nitrogen [Mass/Vol]32 mg/dLHigh7-[facility] Memorial HospitalComment on above:Performed By: #### BNP, HS TROP, CUBLD, CMP, PT, LACTIC, CBC #### [place] [address] USAUrinalysison 09-33-5978Vuvpzchmq,UrineNegativeNormal NegativeThe [facility] Physician GroupComment on above:Order Comment: Name Collection Type:: Clean-Voided MidstreamPerformed By: #### BNP, HS TROP, CUBLD, CMP, PT, LACTIC, CBC #### [place] [address] USAGlucose Ql (U)>=NormalNormalThe [facility] Comment on above:Order Comment: Name Collection Type:: Clean-Voided Midstream Performed By: #### BNP, HS TROP, CUBLD, CMP, PT, LACTIC, CBC #### [place] [address] USANitrite,UrineNegativeNormalNegativeThe [facility] Physician GroupComment on above:Order Comment: Name Collection Type:: Clean-Voided MidstreamPerformed By: #### BNP, HS TROP, CUBLD, CMP, PT, LACTIC, CBC #### [place] [address] USAOccult Blood,UrineNegativeNormalNegativeThe [facility] Physician GroupComment on above:Order Comment: Name Collection Type:: Clean- Voided MidstreamResult Comment: PERFORMED BY: [place] [address] PATHOLOGIST [employer] REYMUNDO POOLE M.D.Performed By: #### BNP, HS TROP, CUBLD, CMP, PT, LACTIC, CBC #### [place] [address] USAProtein,UrineNegativeNormalNegativeNemours Children'S Hospital Physician GroupComment on above:Order Comment: Name Collection Type:: Clean-Voided MidstreamPerformed By: #### BNP, HS TROP, CUBLD, CMP, PT, LACTIC, CBC #### [place] [address] USASpecificy Procious,Urine1.306Odkfdn3.001-1.030The [facility] Physician GroupComment on above:Order Comment: Name Collection Type:: Clean- Voided MidstreamPerformed By: #### BNP, HS TROP, CUBLD, CMP, PT, LACTIC, CBC #### [place] [address] USAUrobilinogen,UrineNormalNormalNormalThe [facility] Physician GroupComment on above:Order Comment: Name Collection Type:: Clean- Voided MidstreamPerformed By: #### BNP, HS TROP, CUBLD, CMP, PT, LACTIC, CBC #### [facility] [address] [place] [id number] USAUrine Cultureon 88-13-8139Upzwwnye identified Cx Nom (U) <9,000 colonies/ml mixed bacterial skin contaminants 2 Days PERFORMED BY: [place] [address] PATHOLOGIST [employer] REYMUNDO POOLE M.D.NormalThe [facility] Physician GroupComment on above: Performed By: #### BNP, HS TROP, CUBLD, CMP, PT, LACTIC, CBC #### [facility] [address] [place] [address] USAUrobilinogen Test strip (U) [Mass/Vol]Ordered By: Madyson Galvez on 31-88-3536Zjwlqmlunhvx (U) [Mass/Vol]Normal mg/dLNormalBrown Memorial HospitalX-ray reportOrdered By: Nicola Woods on 41-12-5137Kgnpy reportTHE BELLEVUE [facility] Main [place] [address] [place] [address] XRay Report Signed Patient: Juliette Morrow SR MR#: [id number] : 1940 Acct:[id number] Age/Sex: 85 / M ADM Date: 5 Loc: ER Room: Type: [facility] ER Attending Dr: Copies to: Madyson [...] Woods M.D. 07/04/2025 11:45 AM Dictation Location: RADIO-PC-23 Transcribed By: NARCISA 07/04/25 1145 Dictated By: Nicola Woods II, MD 07/04/25 1144 Signed By: 07/04/25 1145 [facility] Work Phone: xr chest 2V*on 25-72-2057FS chest 2V*[facility] Main [place] [address] [place] [address] XRay Report Signed Patient: Juliette Morrow SR MR#: [id number] : 1940 Acct:[id number] Age/Sex: 85 / M ADM Date: 07/04/25 Loc: ER Room: Type: [facility] ER Attending Dr: Copies to: Madyson [...] Woods M.D. 07/04/2025 11:45 AM Dictation Location: RADIO-PC-23 Transcribed By: NARCISA 07/04/25 1145 Dictated By: Nicola Woods II, MD 07/04/25 1144 Signed By: 07/04/[address] [place] [address] Physician GrouppH of Urine by Test stripOrdered By: Madyson Galvez on 54-84-9175pQ (U)5.0 [pH]Normal5.0-9.0[facility] Memorial HospitalComment on above:Order Comment: Name Collection Type:: Clean- Voided MidstreamPerformed By: #### BNP, HS TROP, CUBLD, CMP, PT, LACTIC, CBC #### [facility] [address] [place] [id number] USALab Reportson 69-55-6037Stc Reports [id number]#[id number]:127Karen Maldonado CenterSTOOL CULTUREon 36-66-9921Oleibgwgmeiqm CultureFinal reportNoHarrison Community HospitalComment on above:Performed By: #### CXSTOOL #### [facility] [address] [place] [address] [address] Itzel Epstein coli Shiga Toxin EIANegativeNormalNegativeAultman Alliance Community Hospital Comment on above:Performed By: #### CXSTOOL #### [facility] [address] [place] [address] Dr. Itzel Cano 1COur Lady of Mercy HospitalComment on above:Result Comment: No Salmonella or Shigella recovered.Performed By: #### CXSTOOL #### [facility] [address] [place] [address] Dr. Itzel Cano Comment: No Campylobacter species isolated. Salmonella/Shigella ScreenFinal reportNoHarrison Community HospitalComment on above:Performed By: #### CXSTOOL #### [facility] [address] [place] [address] Dr. Itzel Goodwin [id number] peptide B (Bld) [Mass/Vol]1615.0 pg/mLNormal<=1,800.0The [facility] ColumbusComment on above:Performed By: #### OBIA #### [facility] [address] [place] [address] Dr. Itzel Cabrera AUTO DIFFon [id number] #0.0 103/ulNormal0.0-0.1The [facility] ColumbusComment on above:Performed By: #### CXSTOOL #### [facility] [address] [place] [address] Dr. Itzel Renesophils/100 WBC (Bld)0.5 %Normal0.2-2.0[facility] Comment on above:Performed By: #### CXSTOOL #### [facility] [address] [place] [address] Dr. Itzel Terrazas #0.1 103/ulNormal0.0-0.7The [facility] ColumbusComment on above: Performed By: #### CXSTOOL #### [facility] [address] [place] [address] Dr. Itzel Epsteinosinophils/100 WBC (Bld)1.4 %Normal0.9-7.0The [facility] Comment on above:Performed By: #### CXSTOOL #### [facility] [address] [place] [address] Dr. Itzel Epsteinrythrocyte distribution width (RBC) [Ratio]16.1 %Critically high 11.0-15.0The [facility] ColumbusComment on above:Performed By: #### CXSTOOL #### [facility] [address] [place] [address] Dr. Itzel LermaHematocrit (Bld) [Volume fraction]44.1 %Yanqeu70.0-54.0The [facility] ColumbusComment on above:Performed By: #### CXSTOOL #### [facility] [address] [place] [address] Dr. Itzel LermaHemoglobin (Bld) [Mass/Vol]13.9 g/dLCritically low14.0-18.0The [facility] ColumbusComment on above:Performed By: #### CXSTOOL #### [facility] [address] [place] [address] Dr. Itzel Ortega #0.03 10e3/ulNormal0.00-0.03The [facility] ColumbusComment on above:Performed By: #### CXSTOOL #### [facility] [address] [place] [address] Dr. Itzel Ortega %0.5 %Normal0.0-0.5The [facility] ColumbusComment on above: Performed By: #### CXSTOOL #### [facility] [address] [place] [address] Dr. Yilan ChangLYMPH #0.9 103/ulCritically low1.2-3.8The [facility] Comment on above:Performed By: #### CXSTOOL #### [facility] [address] [place] [address] Dr. Itzel Martinezmphocytes/100 WBC (Bld)14.4 %Critically low20.5-60.0The [facility] ColumbusComment on above:Performed By: #### CXSTOOL #### [facility] [address] [place] [address] Dr. Itzel Valdez DIFF REQNONormalThe [facility] ColumbusComment on above: Performed By: #### CXSTOOL #### [facility] [address] [place] [address] Dr. Itzel Centeno (RBC) [Entitic mass]27.5 zeDqdraq28.9-34.0The [facility] ColumbusComment on above:Performed By: #### CXSTOOL #### [facility] [address] [place] [address] Dr. Itzel Maria (RBC) [Mass/Vol]31.5 g/qYKbzynl08.9-35.2The [facility] ColumbusComment on above:Performed By: #### CXSTOOL #### [facility] [address] [place] [address] Dr. Itzel Enciso (RBC) [Entitic vol]87.3 vMIrfbva43.0-94.0The [facility] ColumbusComment on above:Performed By: #### CXSTOOL #### [facility] [address] [place] [address] Dr. Itzel Kirkland #0.7 103/ulNormal0.3-0.8The [facility] ColumbusComment on above:Performed By: #### CXSTOOL #### [facility] [address] [place] [address] Dr. Itzel Mendozaocytes/100 WBC (Bld)10.6 %Normal1.7-12.0[facility] Comment on above:Performed By: #### CXSTOOL #### [facility] [address] [place] [address] Dr. Itzel RodriguezUT #4.6 103/ulNormal1.4-6.5The [facility] ColumbusComment on above:Performed By: #### CXSTOOL #### [facility] [address] [place] [address] Dr. Itzel Rodriguezutrophils/100 WBC (Bld)72.6 %Xnazbm84.0-75.0The [facility] ColumbusComment on above:Performed By: #### CXSTOOL #### [facility] [address] [place] [address] Dr. Itzel LermaPlatelet mean volume (Bld) [Entitic vol]10.3 fLNormal9.5-13.5The [facility] ColumbusComment on above:Performed By: #### CXSTOOL #### [facility] [address] [place] [address] Dr. Itzel LermaPLT279 103/dwSgtqlg021-906Ggr [facility] ColumbusComment on above: Performed By: #### CXSTOOL #### [facility] [address] [place] [address] Dr. Itzel LermaRBC5.05 106/ulNormal4.70-6.10The [facility] ColumbusCommymichigan medical center on above:Performed By: #### CXSTOOL #### [facility] [address] [place] [address] Dr. Itzel LermaWBC6.3 103/ulNormal4.0-11.0The [facility] ColumbusComment on above: Performed By: #### CXSTOOL #### [facility] [address] [place] [address] Dr. Itzel LermaPROF CHEM 8 (BAS METB)on [id number] gap [Moles/Vol]15.8 mmol/LNormalThe [facility] ColumbusComment on above:Performed By: #### OBIA #### [facility] [address] [place] [address] Dr. Itzel LermaCalcium [Mass/Vol]9.1 mg/dLNormal8.5-10.1The [facility] Comment on above:Performed By: #### OBIA #### [facility] [address] [address] [address] Itzel LermaChloride [Moles/Vol]102 mmol/QYdzish43-165Kzc [facility] Comment on above:Performed By: #### OBIA #### [facility] [address] [place] [address] Dr. Itzel LermaCO2 [Moles/Vol]19.7 mmol/LCritically low21.0-32.0The [facility] ColumbusComment on above:Performed By: #### OBIA #### [facility] [address] [place] [address] Dr. Itzel LermaCreatinine [Mass/Vol]1.76 mg/dLCritically high0.70-1.30The [facility] ColumbusComment on above:Performed By: #### OBIA #### [facility] [address] [place] [address] Dr. Itzel EpsteinGFR-AF JSFIXGTN25 mL/min/1.18d4Qdmbeufdmt low>=60The [facility] ColumbusComment on above:Performed By: #### OBIA #### [facility] [address] [place] [address] Dr. Itzel EpsteinGFR-NON AF GJNSQLWJ25 mL/min/1.60d3Vzhresygju low>=60The [facility] ColumbusComment on above:Performed By: #### OBIA #### [facility] [address] [place] [address] Dr. Itzel LermaGlucose [Mass/Vol]139 mg/dLCritically nnoz63-285Vwt [facility] ColumbusComment on above:Performed By: #### OBIA #### [facility] [address] [place] [address] Dr. Itzel LermaPotassium [Moles/Vol]4.5 mmol/LNormal3.5-5.1The [facility] Comment on above:Performed By: #### OBIA #### [facility] [address] [place] [address] Dr. Itzel LermaSodium [Moles/Vol]133 mmol/LCritically bho050-014Sdw [facility] ColumbusComment on above:Performed By: #### OBIA #### [facility] [address] [place] [address] Dr. Itzel Carbajal nitrogen [Mass/Vol]53.0 mg/dLCritically high7.0-18.0The [facility] ColumbusComment on above:Performed By: #### OBIA #### [facility] [address] [place] [address] Dr. Itzel Carbajal nitrogen/Creatinine [Mass ratio]30.1 mg/mgNoHarrison Community HospitalComment on above:Performed By: #### OBIA #### [facility] [address] [place] [address] Dr. Itzel LermaPROTIMEon [id number] Coag (PPP) [Relative time]3.98 {INR} NormalThe [facility] ColumbusComment on above:Performed By: #### UA #### [facility] [address] [place] [address] Dr. Itzel Li GUIDELINESSEE BELOWDiley Ridge Medical CenterComment on above:Result Comment: DESIRED INR: 2.0 - 3.0 CONDITIONS NOT LISTED BELOW 2.5 - 3.5 FOR PROSTHETIC HEART VALVE REPLACEMENT 2.5 - 3.5 RECURRENT THROMBOSIS Performed By: #### UA #### [facility] [address] [place] [address] Dr. Itzel LermaPT Coag (PPP) [Time]39.0 sCritically high9.0-11.6The [facility] ColumbusComment on above:Performed By: #### UA #### [facility] [address] [place] [address] Dr. Itzel Irving [id number] Coag (Bld) [Time]44.8 sCritically high 22.3-36.2The [facility] ColumbusComment on above:Performed By: #### UA #### [facility] [address] [place] [address] Dr. Itzel LermaXR KUB 1 VIEWon [id number] KUB 1 VIEWEXAM: XR KUB 1 VIEW [...] Electronically authenticated by: WILSON JOHN Date: 2022-11-24 07:43[facility] AUTO DIFFon [id number] #0.0 103/ulNormal0.0-0.1[facility] HospitalComment on above:Performed By: #### OSMO #### [facility] [address] [address] [address] Itzel LermaBasophils/100 WBC (Bld)0.3 %Normal0.2-2.0[facility] Comment on above:Performed By: #### OSMO #### [facility] [address] [address] [address] Itzel Terrazas #0.1 103/ulNormal0.0-0.7The [facility] ColumbusComment on above: Performed By: #### OSMO #### [facility] [address] [address] [address] Itzel Epsteinosinophils/100 WBC (Bld)1.6 %Normal0.9-7.0The [facility] Comment on above:Performed By: #### OSMO #### [facility] [address] [address] [address] Itzel Epsteinrythrocyte distribution width (RBC) [Ratio]15.9 %Critically high 11.0-15.0The [facility] ColumbusComment on above:Performed By: #### OSMO #### [facility] [address] [place] [address] Dr. Itzel LermaHematocrit (Bld) [Volume fraction]42.4 %Joykal72.0-54.0The [facility] ColumbusComment on above:Performed By: #### OSMO #### [facility] [address] [place] [address] Dr. Itzel LermaHemoglobin (Bld) [Mass/Vol]13.1 g/dLCritically low14.0-18.0The [facility] ColumbusComment on above:Performed By: #### OSMO #### [facility] [address] [place] [address] Dr. Itzel Ortega #0.04 10e3/ulCritically high0.00-0.03The [facility] Comment on above:Performed By: #### OSMO #### [facility] [address] [place] [address] Dr. Itzel Ortega %0.7 %Critically high0.0-0.5The [facility] ColumbusComment on above:Performed By: #### OSMO #### [facility] [address] [place] [address] Dr. Itzel Hahn #0.9 103/ulCritically low1.2-3.8The [facility] Comment on above:Performed By: #### OSMO #### [facility] [address] [place] [address] Dr. Itzel Beverlyhocytes/100 WBC (Bld)15.6 %Critically low20.5-60.0The [facility] ColumbusComment on above:Performed By: #### OSMO #### [facility] [address] [place] [address] Dr. Itzel CondonUAL DIFF REQNONormalThe [facility] ColumbusComment on above: Performed By: #### OSMO #### [facility] [address] [place] [address] Dr. Itzel Centeno (RBC) [Entitic mass]27.5 qsBtjhgy74.9-34.0The [facility] ColumbusComment on above:Performed By: #### OSMO #### [facility] [address] [place] [address] Dr. Itzel Maria (RBC) [Mass/Vol]30.9 g/xAPnxepx25.9-35.2The [facility] ColumbusComment on above:Performed By: #### OSMO #### [facility] [address] [place] [address] Dr. Itzel Maria (RBC) [Entitic vol]88.9 fOHwojmu25.0-94.0The [facility] ColumbusComment on above:Performed By: #### OSMO #### [facility] [address] [place] [address] Dr. Itzel Kirkland #0.7 103/ulNormal0.3-0.8The [facility] ColumbusComment on above:Performed By: #### OSMO #### [facility] [address] [place] [address] Dr. Itzel Mendozaocytes/100 WBC (Bld)12.1 %Critically high1.7-12.0The [facility] ColumbusComment on above:Performed By: #### OSMO #### [facility] [address] [place] [address] Dr. Itzel RodriguezUT #4.0 103/ulNormal1.4-6.5The [facility] ColumbusComment on above:Performed By: #### OSMO #### [facility] [address] [place] [address] Dr. Itzel Rodriguezutrophils/100 WBC (Bld)69.7 %Rjlygp01.0-75.0The [facility] ColumbusComment on above:Performed By: #### OSMO #### [facility] [address] [place] [address] Dr. Itzel Rosalet mean volume (Bld) [Entitic vol]10.6 fLNormal9.5-13.5The [facility] ColumbusComment on above:Performed By: #### OSMO #### [facility] [address] [place] [address] Dr. Itzel LermaPLT200 103/rxVbdlpv042-492Utg [facility] ColumbusComment on above: Performed By: #### OSMO #### [facility] [address] [address] [address] Itzel LermaRBC4.77 106/ulNormal4.70-6.10The [facility] ColumbusComment on above:Performed By: #### OSMO #### [facility] [address] [address] [address] Itzel LermaWBC5.8 103/ulNormal4.0-11.0The [facility] ColumbusComment on above: Performed By: #### OSMO #### [facility] [address] [address] [address] Itzel LermaPROF CHEM 8 (BAS METB)on 08-50-1776Ubahk gap [Moles/Vol]14.3 mmol/LNormalThe [facility] ColumbusComment on above:Performed By: #### OSMO #### [facility] [address] [place] [address] Dr. Itzel LermaCalcium [Mass/Vol]9.1 mg/dLNormal8.5-10.1The [facility] Comment on above:Performed By: #### OSMO #### [facility] [address] [place] [address] Dr. Itzel LermaChloride [Moles/Vol]102 mmol/MXtsxpo91-445Hvi [facility] Comment on above:Performed By: #### OSMO #### [facility] [address] [address] [address] Itzel LermaCO2 [Moles/Vol]21.4 mmol/HVmsbvo32.0-32.0The [facility] Comment on above:Performed By: #### OSMO #### [facility] [address] [address] [address] Itzel LermaCreatinine [Mass/Vol]1.58 mg/dLCritically high0.70-1.30The [facility] ColumbusComment on above:Performed By: #### OSMO #### [facility] [address] [place] [address] Dr. Robbins ChangEGFR-AF NGADIVQH41 mL/min/1.37c2Nxeqiyaxpu low>=60The [facility] ColumbusComment on above:Performed By: #### OSMO #### [facility] [address] [address] [address] Itzel EpsteinGFR-NON AF HCPJOURX69 mL/min/1.70k8Bpbwdgjokr low>=60The [facility] ColumbusComment on above:Performed By: #### OSMO #### [facility] [address] [address] [address] Itzel LermaGlucose [Mass/Vol]125 mg/dLCritically jtll19-832Uit [facility] ColumbusComment on above:Performed By: #### OSMO #### [facility] [address] [address] [address] Itzel LermaPotassium [Moles/Vol]4.7 mmol/LNormal3.5-5.1The [facility] Comment on above:Performed By: #### OSMO #### [facility] [address] [address] [address] Itzel LermaSodium [Moles/Vol]133 mmol/LCritically eup145-023Qwm [facility] ColumbusComment on above:Performed By: #### OSMO #### [facility] [address] [place] [address] Dr. Itzel LermaUrea nitrogen [Mass/Vol]45.0 mg/dLCritically high7.0-18.0The [facility] ColumbusComment on above:Performed By: #### OSMO #### [facility] [address] [place] [address] Dr. Itzel LermaUrea nitrogen/Creatinine [Mass ratio]28.5 mg/mgNormalThKindred Hospital DaytonComment on above:Performed By: #### OSMO #### [facility] [address] [place] [address] Dr. Itzel LermaPROTIMEon 69-90-3990TCQ Coag (PPP) [Relative time]4.89 {INR} Critically highThe [facility] ColumbusComment on above:Performed By: #### PT #### [facility] [address] [place] [address] Dr. Itzel Li GUIDELINESSEE [facility] Memorial HospitalComment on above:Result Comment: DESIRED INR: 2.0 - 3.0 CONDITIONS NOT LISTED BELOW 2.5 - 3.5 FOR PROSTHETIC HEART VALVE REPLACEMENT 2.5 - 3.5 RECURRENT THROMBOSIS Performed By: #### PT #### [facility] [address] [place] [address] Dr. Itzel Tucker Coag (PPP) [Time]47.4 sCritically high9.0-11.6The [facility] ColumbusComment on above:Performed By: #### PT #### [facility] [address] [place] [address] Dr. Itzel Cabrera AUTO DIFFon [id number] #0.0 103/ulNormal0.0-0.1The [facility] ColumbusComment on above:Performed By: #### CBC #### [facility] [address] [place] [address] Dr. Itzel LermaBasophils/100 WBC (Bld)0.4 %Normal0.2-2.0[facility] Comment on above:Performed By: #### CBC #### [facility] [address] [place] [address] Dr. Itzel Terrazas #0.1 103/ulNormal0.0-0.7ThKindred Hospital DaytonComment on above: Performed By: #### CBC #### [facility] [address] [place] [address] Dr. Itzel Epsteinosinophils/100 WBC (Bld)1.4 %Normal0.9-7.0[facility] Comment on above:Performed By: #### CBC #### [facility] [address] [place] [address] Dr. Itzel Epsteinrythrocyte distribution width (RBC) [Ratio]16.3 %Critically high 11.0-15.0[facility] HospitalComment on above:Performed By: #### CBC #### [facility] [address] [place] [address] Dr. Itzel LermaHematocrit (Bld) [Volume fraction]41.1 %Critically low42.0-54.0 The [facility] ColumbusComment on above:Performed By: #### CBC #### [facility] [address] [place] [address] Dr. Itzel LermaHemoglobin (Bld) [Mass/Vol]12.5 g/dLCritically low14.0-18.0The [facility] ColumbusComment on above:Performed By: #### CBC #### [facility] [address] [place] [address] Dr. Itzel Ortega #0.03 10e3/ulNormal0.00-0.03The [facility] ColumbusComment on above:Performed By: #### CBC #### [facility] [address] [place] [address] Dr. Itzel Ortega %0.4 %Normal0.0-0.5The [facility] ColumbusComment on above: Performed By: #### CBC #### [facility] [address] [place] [address] Dr. Itzel Hahn #1.0 103/ulCritically low1.2-3.8The [facility] Comment on above:Performed By: #### CBC #### [facility] [address] [place] [address] Dr. Itzel Beverlyhocytes/100 WBC (Bld)14.3 %Critically low20.5-60.0The [facility] ColumbusComment on above:Performed By: #### CBC #### [facility] [address] [place] [address] Dr. Itzel Valdez DIFF REQNONormalThe [facility] ColumbusComment on above: Performed By: #### CBC #### [facility] [address] [place] [address] Dr. Itzel Centeno (RBC) [Entitic mass]27.4 cnPczrtt15.9-34.0The [facility] ColumbusComment on above:Performed By: #### CBC #### [facility] [address] [place] [address] Dr. Itzel Maria (RBC) [Mass/Vol]30.4 g/bOBqmyhd09.9-35.2The [facility] ColumbusComment on above:Performed By: #### CBC #### [facility] [address] [place] [address] Dr. Itzel MariaV (RBC) [Entitic vol]89.9 xCHfcrwz12.0-94.0The [facility] ColumbusComment on above:Performed By: #### CBC #### [facility] [address] [place] [address] Dr. Itzel Kirkland #0.8 103/ulNormal0.3-0.8The [facility] ColumbusComment on above:Performed By: #### CBC #### [facility] [address] [place] [address] Dr. Itzel Mendozaocytes/100 WBC (Bld)11.1 %Normal1.7-12.0The [facility] Comment on above:Performed By: #### CBC #### [facility] [address] [place] [address] Dr. Itzel Watkins #5.2 103/ulNormal1.4-6.5The [facility] ColumbusComment on above:Performed By: #### CBC #### [facility] [address] [place] [address] Dr. Itzel Rodriguezutrophils/100 WBC (Bld)72.4 %Kxwqnh92.0-75.0The [facility] - ColumbusComment on above:Performed By: #### CBC #### [facility] Laboratory [address] [place] [address] Dr. Itzel Rosalet mean volume (Bld) [Entitic vol]10.1 fLNormal9.5-13.5The [facility] - ColumbusComment on above:Performed By: #### CBC #### [facility] Laboratory [address] [place] [address] Dr. Itzel PalaciosT210 103/pnHhzbsm704-973Yab [facility] ColumbusComment on above: Performed By: #### CBC #### [facility] Laboratory [address] [place] [address] Dr. Yilan ChangRBC4.57 106/ulCritically low4.70-6.10The [facility] - ColumbusComment on above:Performed By: #### CBC #### [facility] Laboratory [address] [address] [address] Itzel LermaWBC7.2 103/ulNormal4.0-11.0The [facility] - ColumbusComment on above: Performed By: #### CBC #### [facility] Laboratory [address] [place] [address] Dr. Itzel LermaPROF CHEM 8 (BAS METB)on [id number] gap [Moles/Vol]13.8 mmol/LNormalThe [facility] ColumbusComment on above:Performed By: #### OSMO #### [facility] Laboratory [address] [place] [address] Dr. Itzel LermaCalcium [Mass/Vol]8.7 mg/dLNormal8.5-10.1The [facility] Comment on above:Performed By: #### OSMO #### [facility] Laboratory [address] [place] [address] Dr. Itzel LermaChloride [Moles/Vol]102 mmol/OArolqx87-853Gph [facility] Comment on above:Performed By: #### OSMO #### [facility] Laboratory [address] [place] [address] Dr. Itzel LermaCO2 [Moles/Vol]20.6 mmol/LCritically low21.0-32.0The [facility] ColumbusComment on above:Performed By: #### OSMO #### [facility] Laboratory [address] [place] [address] Dr. Itzel LermaCreatinine [Mass/Vol]1.49 mg/dLCritically high0.70-1.30The [facility] ColumbusComment on above:Performed By: #### OSMO #### [facility] Laboratory [address] [place] [address] Dr. Robbins ChangEGFR-AF VHZFNXYJ37 mL/min/1.03e0Likoeifven low>=60The [facility] ColumbusComment on above:Performed By: #### OSMO #### [facility] Laboratory [address] [address] [address] Itzel EpsteinGFR-NON AF JZCRRQVC16 mL/min/1.56s9Ssqrxxascd low>=60The [facility] ColumbusComment on above:Performed By: #### OSMO #### [facility] Laboratory [address] [address] [address] Itzel LermaGlucose [Mass/Vol]105 mg/iGDfvvup01-424Mvt [facility] Comment on above:Performed By: #### OSMO #### [facility] Laboratory [address] [address] [address] Itzel LermaPotassium [Moles/Vol]4.4 mmol/LNormal3.5-5.1The [facility] Comment on above:Performed By: #### OSMO #### [facility] Laboratory [address] [address] [address] Itzel LermaSodium [Moles/Vol]132 mmol/LCritically qfj130-907Loa [facility] ColumbusComment on above:Performed By: #### OSMO #### [facility] Laboratory [address] [address] [address] Itzel LermaUrea nitrogen [Mass/Vol]47.0 mg/dLCritically high7.0-18.0The [facility] ColumbusComment on above:Performed By: #### OSMO #### [facility] Laboratory [address] [address] [address] Itzel LermaUrea nitrogen/Creatinine [Mass ratio]31.5 mg/mgNoHarrison Community HospitalComment on above:Performed By: #### OSMO #### [facility] Laboratory [address] [address] [address] Itzel LermaPROTIMEon [id number] Coag (PPP) [Relative time]5.94 {INR} Critically highThe [facility] ColumbusComment on above:Performed By: #### CBC #### [facility] Laboratory [address] [place] [address] Dr. Itzel Li GUIDELINESSEE BELOWDiley Ridge Medical CenterComment on above:Result Comment: DESIRED INR: 2.0 - 3.0 CONDITIONS NOT LISTED BELOW 2.5 - 3.5 FOR PROSTHETIC HEART VALVE REPLACEMENT 2.5 - 3.5 RECURRENT THROMBOSIS Performed By: #### CBC #### [facility] [address] [place] [address] Dr. Itzel LermaPT Coag ([facility]) [Time]56.9 sCritically high9.0-11.6The [facility] ColumbusComment on above:Performed By: #### CBC #### [facility] Laboratory [address] [place] [address] Dr. Itzel LermaXR KUB 1 VIEWon [id number] KUB 1 VIEWEXAMINATION: XR KUB 1 VIEW [...] Electronically authenticated by: DORIAN YODER Date: 2022-11-22 08:06NoSum[facility] AUTO DIFFon [id number] #0.0 103/ulNormal0.0-0.1The [facility] ColumbusComment on above:Performed By: #### OBIA #### [facility] Laboratory [address] [place] [address] Dr. Itzel LermaBasophils/100 WBC (Bld)0.1 %Critically low0.2-2.0The [facility] ColumbusComment on above:Performed By: #### OBIA #### [facility] Laboratory [address] [place] [address] Dr. Itzel Terrazas #0.1 103/ulNormal0.0-0.7The [facility] ColumbusComment on above: Performed By: #### OBIA #### [facility] Laboratory [address] [place] [address] Dr. Itzel Epsteinosinophils/100 WBC (Bld)1.5 %Normal0.9-7.0[facility] Comment on above:Performed By: #### OBIA #### [facility] Laboratory [address] [place] [address] Dr. Itzel Epsteinrythrocyte distribution width (RBC) [Ratio]16.3 %Critically high 11.0-15.0The [facility] ColumbusComment on above:Performed By: #### OBIA #### [facility] Laboratory [address] [place] [address] Dr. Itzel LermaHematocrit (Bld) [Volume fraction]42.6 %Lyajjo59.0-54.0The [facility] ColumbusComment on above:Performed By: #### OBIA #### [facility] Laboratory [address] [place] [address] Dr. Itzel LermaHemoglobin (Bld) [Mass/Vol]13.3 g/dLCritically low14.0-18.0The [facility] ColumbusComment on above:Performed By: #### OBIA #### [facility] Laboratory [address] [place] [address] Dr. Itzel Ortega #0.02 10e3/ulNormal0.00-0.03The [facility] ColumbusComment on above:Performed By: #### OBIA #### [facility] [address] [place] [address] Dr. Itzel LermaIG %0.2 %Normal0.0-0.5The [facility] ColumbusComment on above: Performed By: #### OBIA #### [facility] Laboratory [address] [place] [address] Dr. Itzel BeverlyH #1.0 103/ulCritically low1.2-3.8The [facility] Comment on above:Performed By: #### OBIA #### [facility] [address] [place] [address] Dr. Itzel Martinezmphocytes/100 WBC (Bld)12.5 %Critically low20.5-60.0The [facility] ColumbusComment on above:Performed By: #### OBIA #### [facility] Laboratory [address] [place] [address] Dr. Itzel Valdez DIFF REQNONormalThe [facility] ColumbusComment on above: Performed By: #### OBIA #### [facility] Laboratory [address] [place] [address] Dr. Itzel Maria (RBC) [Entitic mass]27.8 uvGptocw69.9-34.0The [facility] ColumbusComment on above:Performed By: #### OBIA #### [facility] Laboratory [address] [place] [address] Dr. Itzel Maria (RBC) [Mass/Vol]31.2 g/jWFtqywp28.9-35.2The [facility] ColumbusComment on above:Performed By: #### OBIA #### [facility] Laboratory [address] [place] [address] Dr. Itzel Maria (RBC) [Entitic vol]88.9 qDUwuras37.0-94.0The [facility] ColumbusComment on above:Performed By: #### OBIA #### [facility] Laboratory [address] [place] [address] Dr. Itzel Kirkland #0.9 103/ulCritically high0.3-0.8ThKindred Hospital [facility] Comment on above:Performed By: #### OBIA #### [facility] [address] [place] [address] Dr. Itzel Mendozaocytes/100 WBC (Bld)10.6 %Normal1.7-12.0[facility] Comment on above:Performed By: #### OBIA #### [facility] [address] [place] [address] Dr. Itzel Watkins #6.1 103/ulNormal1.4-6.5The [facility] ColumbusComment on above:Performed By: #### OBIA #### [facility] [address] [place] [address] Dr. Itzel Rodriguezutrophils/100 WBC (Bld)75.1 %Critically high43.0-75.0The [facility] ColumbusComment on above:Performed By: #### OBIA #### [facility] Laboratory [address] [place] [address] Dr. Itzel LermaPlatelet mean volume (Bld) [Entitic vol]9.9 fLNormal9.5-13.5The [facility] ColumbusComment on above:Performed By: #### OBIA #### [facility] Laboratory [address] [place] [address] Dr. Itzel LermaPLT239 103/tgCrfsio218-184Dgn [facility] ColumbusComment on above: Performed By: #### OBIA #### [facility] [address] [place] [address] Dr. Itzel LermaRBC4.79 106/ulNormal4.70-6.10The [facility] ColumbusComment on above:Performed By: #### OBIA #### [facility] [address] [place] [address] Dr. Itzel LermaWBC8.1 103/ulNormal4.0-11.0The [facility] ColumbusComment on above: Performed By: #### OBIA #### [facility] Laboratory [address] [place] [address] Dr. Itzel LermaPROF CHEM 8 (BAS METB)on [id number] gap [Moles/Vol]15.4 mmol/LNormalThe [facility] ColumbusComment on above:Performed By: #### UA #### [facility] Laboratory [address] [place] [address] Dr. Itzel LermaCalcium [Mass/Vol]8.9 mg/dLNormal8.5-10.1The [facility] Comment on above:Performed By: #### UA #### [facility] Laboratory [address] [place] [address] Dr. Itzel LermaChloride [Moles/Vol]102 mmol/BPqrgty28-281Uxh [facility] Comment on above:Performed By: #### UA #### [facility] Laboratory [address] [place] [address] Dr. Itzel LermaCO2 [Moles/Vol]18.7 mmol/LCritically low21.0-32.0The [facility] ColumbusComment on above:Performed By: #### UA #### [facility] Laboratory [address] [address] [address] Itzle LermaCreatinine [Mass/Vol]1.47 mg/dLCritically high0.70-1.30The [facility] ColumbusComment on above:Performed By: #### UA #### [facility] [address] [address] [address] Itzel EpsteinGFR-AF MJJYPOAN65 mL/min/1.14q2Satrjvltjx low>=60The [facility] ColumbusComment on above:Performed By: #### UA #### [facility] Laboratory [address] [address] [address] Itzel EpsteinGFR-NON AF LAVRPJUF12 mL/min/1.32i7Rbveuctbpo low>=60The [facility] ColumbusComment on above:Performed By: #### UA #### [facility] [address] [address] [address] Itzel LermaGlucose [Mass/Vol]103 mg/pFEgblna22-270Kdp [facility] Comment on above:Performed By: #### UA #### [facility] [address] [address] [address] Itzel LermaPotassium [Moles/Vol]4.1 mmol/LNormal3.5-5.1The [facility] Comment on above:Performed By: #### UA #### [facility] Laboratory [address] [address] [address] Itzel LermaSodium [Moles/Vol]132 mmol/LCritically fqv567-073[facility] for Rehabilitationment on above:Performed By: #### UA #### [facility] [address] [address] [address] Itzel LermaUrea nitrogen [Mass/Vol]47.0 mg/dLCritically high7.0-18.0The [facility] ColumbusComment on above:Performed By: #### UA #### [facility] [address] [address] [address] Itzel LermaUrea nitrogen/Creatinine [Mass ratio]32.0 mg/mgNormalThe [facility] ColumbusComment on above:Performed By: #### UA #### [facility] [address] [address] [address] Itzel LermaXR KUB 1 VIEWon [id number] KUB 1 VIEWEXAMINATION: XR KUB 1 VIEW [...] Electronically authenticated by: DORIAN YODER Date: 2022-11-21 08:08[facility] AUTO DIFFon [id number] #0.0 103/ulNormal0.0-0.1The [facility] ColumbusComment on above:Performed By: #### OSMO #### [facility] Laboratory [address] [address] [address] Itzel Renesophils/100 WBC (Bld)0.3 %Normal0.2-2.0The [facility] Comment on above:Performed By: #### OSMO #### [facility] Laboratory [address] [address] [address] Itzel Terrazas #0.1 103/ulNormal0.0-0.7The [facility] ColumbusComment on above: Performed By: #### OSMO #### [facility] [address] [address] [address] Itzel Epsteinosinophils/100 WBC (Bld)0.8 %Critically low0.9-7.0The [facility] ColumbusComment on above:Performed By: #### OSMO #### [facility] Laboratory [address] [address] [address] Itzel Epsteinrythrocyte distribution width (RBC) [Ratio]16.2 %Critically high 11.0-15.0The [facility] ColumbusComment on above:Performed By: #### OSMO #### [facility] Laboratory [address] [place] [address] Dr. Itzel LermaHematocrit (Bld) [Volume fraction]46.2 %Pujtwq76.0-54.0The [facility] ColumbusComment on above:Performed By: #### OSMO #### [facility] Laboratory [address] [place] [address] Dr. Itzel LermaHemoglobin (Bld) [Mass/Vol]14.2 g/lHIwgclx12.0-18.0The [facility] ColumbusComment on above:Performed By: #### OSMO #### [facility] Laboratory [address] [place] [address] Dr. Itzel Ortega #0.04 10e3/ulCritically high0.00-0.03The [facility] Comment on above:Performed By: #### OSMO #### [facility] Laboratory [address] [place] [address] Dr. Itzel Ortega %0.3 %Normal0.0-0.5The [facility] ColumbusComment on above: Performed By: #### OSMO #### [facility] [address] [place] [address] Dr. Itzel Hahn #1.3 103/ulNormal1.2-3.8The [facility] ColumbusComment on above:Performed By: #### OSMO #### [facility] Laboratory [address] [place] [address] Dr. Itzel Beverlyhocytes/100 WBC (Bld)10.4 %Critically low20.5-60.0The [facility] ColumbusComment on above:Performed By: #### OSMO #### [facility] Laboratory [address] [place] [address] Dr. Itzel CondonUAL DIFF REQNONormalThe [facility] ColumbusComment on above: Performed By: #### OSMO #### [facility] Laboratory [address] [place] [address] Dr. Itzel Centeno (RBC) [Entitic mass]27.6 hzHnjqpp70.9-34.0The [facility] ColumbusComment on above:Performed By: #### OSMO #### [facility] Laboratory [address] [place] [address] Dr. Itzel Maria (RBC) [Mass/Vol]30.7 g/tXAtpyli42.9-35.2The [facility] ColumbusComment on above:Performed By: #### OSMO #### [facility] Laboratory [address] [place] [address] Dr. Itzel Maria (RBC) [Entitic vol]89.9 tFUzalbh62.0-94.0The [facility] ColumbusComment on above:Performed By: #### OSMO #### [facility] Laboratory [address] [place] [address] Dr. Itzel Kirkland #1.1 103/ulCritically high0.3-0.8The [facility] Comment on above:Performed By: #### OSMO #### [facility] Laboratory [address] [place] [address] Dr. Itzel Mendozaocytes/100 WBC (Bld)9.5 %Normal1.7-12.0The [facility] Comment on above:Performed By: #### OSMO #### [facility] Laboratory [address] [place] [address] Dr. Itzel Watkins #9.5 103/ulCritically high1.4-6.5The [facility] Comment on above:Performed By: #### OSMO #### [facility] Laboratory [address] [place] [address] Dr. Itzel Rodriguezutrophils/100 WBC (Bld)78.7 %Critically high43.0-75.0The [facility] ColumbusComment on above:Performed By: #### OSMO #### [facility] Laboratory [address] [place] [address] Dr. Itzel Rosalet mean volume (Bld) [Entitic vol]9.6 fLNormal9.5-13.5The [facility] ColumbusComment on above:Performed By: #### OSMO #### [facility] Laboratory [address] [place] [address] Dr. Itzel LermaPLT280 103/twHzxpqb638-903Fcv [facility] ColumbusComment on above: Performed By: #### OSMO #### [facility] [address] [place] [address] Dr. Itzel LermaRBC5.14 106/ulNormal4.70-6.10The [facility] ColumbusComment on above:Performed By: #### OSMO #### [facility] Laboratory [address] [place] [address] Dr. Itzel LermaWBC12.0 103/ulCritically high4.0-11.0The [facility] ColumbusComment on above:Performed By: #### OSMO #### [facility] Laboratory [address] [place] [address] Dr. Itzel LermaLACTATE/LACTIC ACIDon [id number] [Moles/Vol]0.9 mmol/L Normal0.4-1.9The [facility] ColumbusComment on above:Performed By: #### CBC #### [facility] Laboratory [address] [place] [address] Dr. Itzel LermaPROF CHEM 8 (BAS METB)on 33-60-0512Cwryx gap [Moles/Vol]14.9 mmol/LNormalThe [facility] ColumbusComment on above:Performed By: #### BMP #### [facility] Laboratory [address] [place] [address] Dr. Itzel LermaCalcium [Mass/Vol]9.7 mg/dLNormal8.5-10.1The [facility] Comment on above:Performed By: #### BMP #### [facility] Laboratory [address] [place] [address] Dr. Itzel LermaChloride [Moles/Vol]99 mmol/WAewlgn05-048Vct [facility] Comment on above:Performed By: #### BMP #### [facility] Laboratory [address] [place] [address] Dr. Itzel LermaCO2 [Moles/Vol]22.7 mmol/NOwnzmy84.0-32.0The [facility] Comment on above:Performed By: #### BMP #### [facility] Laboratory [address] [address] [address] Itzel LermaCreatinine [Mass/Vol]2.07 mg/dLCritically high0.70-1.30The [facility] ColumbusComment on above:Performed By: #### BMP #### [facility] Laboratory [address] [address] [address] Robbins ChangEGFR-AF WKLSUEQU70 mL/min/1.03o4Fgsckxywpl low>=60The [facility] ColumbusComment on above:Performed By: #### BMP #### [facility] Laboratory [address] [address] [address] Itzel EpsteinGFR-NON AF DLINYPWR26 mL/min/1.61o9Cysbyfknbk low>=60The [facility] ColumbusComment on above:Performed By: #### BMP #### [facility] Laboratory [address] [address] [address] Itzel LermaGlucose [Mass/Vol]144 mg/dLCritically mpwp41-356Tbe [facility] ColumbusComment on above:Performed By: #### BMP #### [facility] Laboratory [address] [address] [address] Itzel LermaPotassium [Moles/Vol]4.6 mmol/LNormal3.5-5.1[facility] Comment on above:Performed By: #### BMP #### [facility] [address] [address] [address] Itzel LermaSodium [Moles/Vol]132 mmol/LCritically inu251-869Ctt [facility] ColumbusComment on above:Performed By: #### BMP #### [facility] [address] [address] [address] Itzel LermaUrea nitrogen [Mass/Vol]52.0 mg/dLCritically high7.0-18.0The [facility] ColumbusComment on above:Performed By: #### BMP #### [facility] Laboratory [address] [address] [address] Itzel LermaUrea nitrogen/Creatinine [Mass ratio]25.1 mg/mgNormalThe [facility] HospitalComment on above:Performed By: #### BMP #### [facility] Laboratory [address] [address] [address] Itzel LermaPROTIMEon [id number] Coag (PPP) [Relative time]2.54 {INR} NormalThe [facility] on above:Performed By: #### CBC #### [facility] Laboratory [address] [address] [address] Itzel LermaINR GUIDELINESSEE BELOWDiley Ridge Medical CenterCommymichigan medical center on above:Result Comment: DESIRED INR: 2.0 - 3.0 CONDITIONS NOT LISTED BELOW 2.5 - 3.5 FOR PROSTHETIC HEART VALVE REPLACEMENT 2.5 - 3.5 RECURRENT THROMBOSIS Performed By: #### CBC #### [facility] [address] [place] [address] Dr. Itzel LermaPT Coag (PPP) [Time]25.5 sCritically high9.0-11.6The [facility] on above:Performed By: #### CBC #### [facility] Laboratory [address] [place] [address] Dr. Itzel LermaXR KUB 1 VIEWon [id number] KUB 1 VIEWEXAMINATION: XR KUB 1 VIEW [...] Electronically authenticated by: DORIAN YODER Date: 2022-11-20 10:52[facility] AUTO DIFFon [id number] #0.0 103/ulNormal0.0-0.1The [facility] HospitalComment on above:Performed By: #### OSMO #### [facility] Laboratory [address] [place] [address] Dr. Itzel LermaBasophils/100 WBC (Bld)0.2 %Normal0.2-2.0The [facility] Comment on above:Performed By: #### OSMO #### [facility] Laboratory [address] [place] [address] Dr. Itzel Terrazas #0.1 103/ulNormal0.0-0.7The [facility] ColumbusComment on above: Performed By: #### OSMO #### [facility] Laboratory [address] [place] [address] Dr. Itzle Epsteinosinophils/100 WBC (Bld)1.1 %Normal0.9-7.0The [facility] Comment on above:Performed By: #### OSMO #### [facility] [address] [place] [address] Dr[address] Itzel Epsteinrythrocyte distribution width (RBC) [Ratio]16.3 %Critically high 11.0-15.0The [facility] - ColumbusComment on above:Performed By: #### OSMO #### [facility] [address] [place] [address] Dr. Itzel LermaHematocrit (Bld) [Volume fraction]47.9 %Mfjxnv56.0-54.0The [facility] ColumbusComment on above:Performed By: #### OSMO #### [facility] [address] [place] [address] Dr. Itzel LermaHemoglobin (Bld) [Mass/Vol]14.7 g/wIQpzjnd61.0-18.0The [facility] ColumbusComment on above:Performed By: #### OSMO #### [facility] [address] [place] [address] Dr. Itzel Ortega #0.04 10e3/ulCritically high0.00-0.03The [facility] Comment on above:Performed By: #### OSMO #### [facility] [address] [place] [address] Dr. Itzel Ortega %0.4 %Normal0.0-0.5The [facility] ColumbusComment on above: Performed By: #### OSMO #### [facility] [address] [place] [address] Dr. Itzel Hahn #0.9 103/ulCritically low1.2-3.8The [facility] Comment on above:Performed By: #### OSMO #### [facility] [address] [place] [address] Dr. Itzel Beverlyhocytes/100 WBC (Bld)9.7 %Critically low20.5-60.0The [facility] ColumbusComment on above:Performed By: #### OSMO #### [facility] [address] [place] [address] Dr. Itzel Valdez DIFF REQNONormalThe [facility] ColumbusComment on above: Performed By: #### OSMO #### [facility] [address] [place] [address] Dr. Itzel Centeno (RBC) [Entitic mass]27.4 uwEwmxwv66.9-34.0The [facility] - ColumbusComment on above:Performed By: #### OSMO #### [facility] [address] [place] [address] Dr. Itzel Maria (RBC) [Mass/Vol]30.7 g/cVGnrwhw07.9-35.2The [facility] ColumbusComment on above:Performed By: #### OSMO #### [facility] [address] [place] [address] Dr. Itzel Maria (RBC) [Entitic vol]89.2 jZUonqgu49.0-94.0The [facility] ColumbusComment on above:Performed By: #### OSMO #### [facility] [address] [place] [address] Dr. Itzel Kirkland #0.7 103/ulNormal0.3-0.8The [facility] ColumbusComment on above:Performed By: #### OSMO #### [facility] [address] [place] [address] Dr. Itzel Mendozaocytes/100 WBC (Bld)7.9 %Normal1.7-12.0The [facility] Comment on above:Performed By: #### OSMO #### [facility] [address] [place] [address] Dr. Itzel Watkins #7.6 103/ulCritically high1.4-6.5The [facility] Comment on above:Performed By: #### OSMO #### [facility] [address] [place] [address] Dr. Itzel Rodriguezutrophils/100 WBC (Bld)80.7 %Critically high43.0-75.0The [facility] ColumbusComment on above:Performed By: #### OSMO #### [facility] [address] [place] [address] Dr. Itzel LermaPlatelet mean volume (Bld) [Entitic vol]10.0 fLNormal9.5-13.5The [facility] ColumbusComment on above:Performed By: #### OSMO #### [facility] [address] [place] [address] Dr. Itzel LermaPLT276 103/lhCgxtpz325-584Jjr [facility] - ColumbusComment on above: Performed By: #### OSMO #### [facility] [address] [place] [address] Dr. Itzel LermaRBC5.37 106/ulNormal4.70-6.10The [facility] - ColumbusComment on above:Performed By: #### OSMO #### [facility] [address] [place] [address] Dr. Itzel LermaWBC9.4 103/ulNormal4.0-11.0The [facility] ColumbusComment on above: Performed By: #### OSMO #### [facility] [address] [place] [address] Dr. Itzel LermaCT ABD/PELVIS WO CONon [id number] ABD/PELVIS WO CONEXAMINATION: CT ABD/PELVIS WO CON, [...] Electronically authenticated by: SHAR TREJO Date: 2022-11-19 19:32NoHarrison Community HospitalCovid-19 PCR ([facility])on [id number]-CoV-2 (COVID-19) RNA JUDY+probe Ql (Unsp spec)Not detectedNormalNOT DETECTEDThe [facility] Comment on above:Result Comment: When diagnostic testing [...] for this test is supported by the Ship Keeper of Health and Human Service's declaration that [...] longer be used).Performed By: #### UA #### [facility] [address] [address] [address] Itzel BadilloF CHEM 8 (BAS METB)on 47-83-8051Fkrud gap [Moles/Vol]10.2 mmol/LNormalThe [facility] - ColumbusComment on above:Performed By: #### UA #### [facility] [address] [place] [address] Dr. Itzel LermaCalcium [Mass/Vol]9.8 mg/dLNormal8.5-10.1The [facility] Comment on above:Performed By: #### UA #### [facility] [address] [place] [address] Dr. Itzel LermaChloride [Moles/Vol]99 mmol/QHiwhpu05-455Iqs [facility] Comment on above:Performed By: #### UA #### [facility] [address] [place] [address] Dr. Itzel LermaCO2 [Moles/Vol]27.4 mmol/JObukvz94.0-32.0[facility] Comment on above:Performed By: #### UA #### [facility] [address] [place] [address] Dr. Itzel LermaCreatinine [Mass/Vol]2.02 mg/dLCritically high0.70-1.30The [facility] ColumbusComment on above:Performed By: #### UA #### [facility] [address] [place] [address] Dr. Itzel EpsteinGFR-AF CKRKVDNU21 mL/min/1.48z0Zkjehdmadf low>=60The [facility] - ColumbusComment on above:Performed By: #### UA #### [facility] [address] [place] [address] Dr. Itzel EpsteinGFR-NON AF FMSHNPRX84 mL/min/1.90j6Rbmbwarloh low>=60The [facility] ColumbusComment on above:Performed By: #### UA #### [facility] [address] [address] [address] Itzel LermaGlucose [Mass/Vol]148 mg/dLCritically rixo36-002Ghh [facility] ColumbusComment on above:Performed By: #### UA #### [facility] [address] [address] [address] Itzel LermaPotassium [Moles/Vol]5.6 mmol/LCritically high3.5-5.1The [facility] ColumbusComment on above:Performed By: #### UA #### [facility] [address] [address] [address] Itzel LermaSodium [Moles/Vol]131 mmol/LCritically qaz493-843Xiv [facility] ColumbusComment on above:Performed By: #### UA #### [facility] [address] [place] [address] Dr. Itzel LermaUrea nitrogen [Mass/Vol]44.0 mg/dLCritically high7.0-18.0The [facility] ColumbusComment on above:Performed By: #### UA #### [facility] [address] [place] [address] Dr. Itzel Carbajal nitrogen/Creatinine [Mass ratio]21.8 mg/mgNoHarrison Community HospitalCommymichigan medical center on above:Performed By: #### UA #### [facility] [address] [place] [address] Dr. Itzel LermaXR KUB 1 VIEWon [id number] KUB 1 VIEWEXAM: XR KUB 1 VIEW HISTORY: Nasogastric tube in situ COMPARISON: None. TECHNIQUE: Single view FINDINGS: IMPRESSION: Single limited view of the abdomen. Enteric tube tip is approximately 6.2 cm below the diaphragm. Air-filled loops of large and small bowel Electronically authenticated by: SHAHZAD VILLALPANDO Date: 2022-11-19 20:24[facility] Medical CenterOSMOLALITYon 68-57-9141Rcsdxwlajm [Osmolality]274 mosm/kg Critically mub029-770Ibc [facility] ColumbusComment on above:Performed By: #### OSMO #### [facility] [address] [place] [address] Dr. Itzel Cabrera AUTO DIFFon [id number] #0.0 103/ulNormal0.0-0.1The [facility] ColumbusComment on above:Performed By: #### OBIA #### [facility] [address] [place] [address] Dr. Itzel LermaBasophils/100 WBC (Bld)0.3 %Normal0.2-2.0The [facility] Comment on above:Performed By: #### OBIA #### [facility] [address] [place] [address] Dr. Itzel Terrazas #0.1 103/ulNormal0.0-0.7The [facility] ColumbusComment on above: Performed By: #### OBIA #### [facility] [address] [place] [address] Dr. Itzel Epsteinosinophils/100 WBC (Bld)0.7 %Critically low0.9-7.0The [facility] ColumbusComment on above:Performed By: #### OBIA #### [facility] [address] [place] [address] Dr. Itzel Epsteinrythrocyte distribution width (RBC) [Ratio]14.6 %Gnyvpv78.0-15.0 The [facility] ColumbusComment on above:Performed By: #### OBIA #### [facility] [address] [place] [address] Dr. Itzel LermaHematocrit (Bld) [Volume fraction]35.2 %Critically low42.0-54.0 The [facility] ColumbusComment on above:Performed By: #### OBIA #### [facility] [address] [place] [address] Dr. Itzel LermaHemoglobin (Bld) [Mass/Vol]11.4 g/dLCritically low14.0-18.0The [facility] Rehabilitationment on above:Performed By: #### OBIA #### [facility] [address] [place] [address] Dr. Itzel Ortega #0.04 10e3/ulCritically high0.00-0.03The [facility] Comment on above:Performed By: #### OBIA #### [facility] [address] [place] [address] Dr. Itzel Ortega %0.4 %Normal0.0-0.5The [facility] ColumbusComment on above: Performed By: #### OBIA #### [facility] [address] [place] [address] Dr. Itzel Hahn #0.9 103/ulCritically low1.2-3.8The [facility] Comment on above:Performed By: #### OBIA #### [facility] [address] [place] [address] Dr. Itzel Beverlyhocytes/100 WBC (Bld)10.4 %Critically low20.5-60.0[facility] HospitalComment on above:Performed By: #### OBIA #### [facility] [address] [place] [address] Dr. Itzel Valdez DIFF REQNONormalThe [facility] ColumbusComment on above: Performed By: #### OBIA #### [facility] [address] [place] [address] Dr. Itzel Centeno (RBC) [Entitic mass]29.1 hjJkrndh84.9-34.0[facility] HospitalComment on above:Performed By: #### OBIA #### [facility] [address] [place] [address] Dr. Itzel Maria (RBC) [Mass/Vol]32.4 g/lFPkhlwb32.9-35.2[facility] HospitalComment on above:Performed By: #### OBIA #### [facility] [address] [place] [address] Dr. Itzel Enciso (RBC) [Entitic vol]89.8 hHUotmgd70.0-94.0[facility] HospitalComment on above:Performed By: #### OBIA #### [facility] [address] [place] [address] Dr. Itzel Kirkland #1.0 103/ulCritically high0.3-0.8The [facility] Comment on above:Performed By: #### OBIA #### [facility] [address] [place] [address] Dr. Itzel Mendozaocytes/100 WBC (Bld)11.1 %Normal1.7-12.0[facility] Comment on above:Performed By: #### OBIA #### [facility] [address] [place] [address] Dr. Itzel Watkins #6.9 103/ulCritically high1.4-6.5The [facility] Comment on above:Performed By: #### OBIA #### [facility] [address] [place] [address] Dr. Itzel Rodriguezutrophils/100 WBC (Bld)77.1 %Critically high43.0-75.0The [facility] ColumbusComment on above:Performed By: #### OBIA #### [facility] [address] [place] [address] Dr. Itzel LermaPlatelet mean volume (Bld) [Entitic vol]9.5 fLNormal9.5-13.5The [facility] ColumbusComment on above:Performed By: #### OBIA #### [facility] [address] [place] [address] Dr. Itzel LermaPLT166 103/czDcnpqi215-932Csy [facility] ColumbusComment on above: Performed By: #### OBIA #### [facility] [address] [place] [address] Dr. Itzel LermaRBC3.92 106/ulCritically low4.70-6.10The [facility] ColumbusComment on above:Performed By: #### OBIA #### [facility] [address] [place] [address] Dr. Itzel LermaWBC9.0 103/ulNormal4.0-11.0The [facility] ColumbusComment on above: Performed By: #### OBIA #### [facility] [address] [place] [address] Dr. Itzel LermaH PYLORI ANTIBODY IGGon 10-13-2022H. PYLORI IGG ABS1.90 Index ValueCritically high0.00-0.79The [facility] on above:Result Comment: Negative <0.80 Equivocal 0.80 - 0.89 Positive >0.89Performed By: #### HPYLLC #### [facility] [address] [place] [address] Dr. Itzel LermaOCC BLD IMMUNOASSAYon 70-19-5625MWSBTN BLOODPositiveAbnormal NEGATIVEThe [facility] ColumbusCommymichigan medical center on above:Performed By: #### OBIA #### [facility] [address] [place] [address] Dr. Itzel LermaOSMOLALITY URINEon 57-80-5742Otpjvshros, Xkqvt597 mOsmol/kgNormal The [facility] ColumbusComment on above:Result Comment: 24 hr : 300 - 900 Random: 50 - 1400 After 12hr fluid restriction: >850Performed By: #### OBIA #### [facility] [address] [place] [address] Dr. Itzel LermaPROF 14(COMP METB)on 62-13-6176Jtehcrd [Mass/Vol]2.6 g/dL Critically low3.4-5.0The [facility] on above:Performed By: #### OSMO #### [facility] [address] [place] [address] Dr. Itzel LermaAlbumin/Globulin [Mass ratio]0.6 {ratio}NormalThe [facility] on above:Performed By: #### OSMO #### [facility] [address] [place] [address] Dr. Itzel PaulP [Catalytic activity/Vol]59 U/IWsbrtb39-551Qit [facility] on above:Performed By: #### OSMO #### [facility] [address] [place] [address] Dr. Itzel Finch [Catalytic activity/Vol]10 U/LCritically fjh32-46Hou [facility] on above:Performed By: #### OSMO #### [facility] [address] [address] [address] Iztel LermaAnion gap [Moles/Vol]14.3 mmol/LNormalA[facility] Hospital Comment on above:Performed By: #### OSMO #### [facility] [address] [address] [address] Itzel LermaAST [Catalytic activity/Vol]12 U/LCritically mog46-25Pdo [facility] ColumbusComment on above:Performed By: #### OSMO #### [facility] [address] [address] [address] Itzel LermaBilirubin [Mass/Vol]0.3 mg/dLNormal0.2-1.0The [facility] Comment on above:Performed By: #### OSMO #### [facility] [address] [place] [address] Dr. Itzel LermaCalcium [Mass/Vol]7.5 mg/dLCritically low8.5-10.1The [facility] ColumbusComment on above:Performed By: #### OSMO #### [facility] [address] [place] [address] Dr. Itzel LermaChloride [Moles/Vol]116 mmol/LCritically mpfe61-554Qrg [facility] ColumbusComment on above:Performed By: #### OSMO #### [facility] [address] [address] [address] Itzel LermaCO2 [Moles/Vol]14.3 mmol/LCritically low21.0-32.0The [facility] ColumbusComment on above:Performed By: #### OSMO #### [facility] [address] [place] [address] Dr. Itzel LermaCreatinine [Mass/Vol]1.38 mg/dLCritically high0.70-1.30The [facility] ColumbusComment on above:Performed By: #### OSMO #### [facility] [address] [address] [address] Robbins ChangEGFR-AF PVAIDSIE98 mL/min/1.62c0Etdguh>=60The [facility] Comment on above:Performed By: #### OSMO #### [facility] [address] [address] [address] Itzel EpsteinGFR-NON AF ACWRCUUK25 mL/min/1.63i4Hurltaogzd low>=60The [facility] ColumbusComment on above:Performed By: #### OSMO #### [facility] [address] [address] [address] Itzel LermaGlobulin (S) [Mass/Vol]4.1 g/dLNormBarney Children's Medical CenterComment on above:Performed By: #### OSMO #### [facility] [address] [address] [address] Itzel LermaGlucose [Mass/Vol]137 mg/dLCritically ssxz97-004Zup [facility] ColumbusComment on above:Performed By: #### OSMO #### [facility] [address] [address] [address] Itzel LermaPotassium [Moles/Vol]3.6 mmol/LNormal3.5-5.1The [facility] Comment on above:Performed By: #### OSMO #### [facility] [address] [address] [address] Itzel LermaProtein [Mass/Vol]6.7 g/dLNormal6.4-8.2The [facility] Comment on above:Performed By: #### OSMO #### [facility] [address] [address] [address] Itzel LermaSodium [Moles/Vol]141 mmol/EFwvgcw034-267Xtz [facility] Comment on above:Performed By: #### OSMO #### [facility] [address] [address] [address] Itzel LermaUrea nitrogen [Mass/Vol]25.0 mg/dLCritically high7.0-18.0The [facility] ColumbusComment on above:Performed By: #### OSMO #### [facility] [address] [address] [address] Itzel LermaUrea nitrogen/Creatinine [Mass ratio]18.1 mg/mgNormBarney Children's Medical CenterComment on above:Performed By: #### OSMO #### [facility] [address] [place] [address] Dr. Itzel LermaPROTIMEon 09-31-4185OCF Coag (PPP) [Relative time]5.21 {INR} Critically highThe [facility] ColumbusComment on above:Performed By: #### OSMO #### [facility] [address] [place] [address] Dr. Itzel Li GUIDELINESSEE BELOWDiley Ridge Medical CenterComment on above:Result Comment: DESIRED INR: 2.0 - 3.0 CONDITIONS NOT LISTED BELOW 2.5 - 3.5 FOR PROSTHETIC HEART VALVE REPLACEMENT 2.5 - 3.5 RECURRENT THROMBOSIS Performed By: #### OSMO #### [facility] [address] [place] [address] Dr. Itzel LermaPT Coag (PPP) [Time]50.5 sCritically high9.0-11.6The [facility] ColumbusComment on above:Performed By: #### OSMO #### [facility] [address] [place] [address] Dr. Itzel Cabrera AUTO DIFFon 89-71-2374WAJF #0.0 103/ulNormal0.0-0.1[facility] on above:Performed By: #### UA #### [facility] [address] [place] [address] Dr. Itzel LermaBasophils/100 WBC (Bld)0.2 %Normal0.2-2.0[facility] Comment on above:Performed By: #### UA #### [facility] [address] [place] [address] Dr. Itzel Terrazas #0.1 103/ulNormal0.0-0.7ThPro[facility]ica [facility] on above: Performed By: #### UA #### [facility] [address] [place] [address] Dr. Itzel Epsteinosinophils/100 WBC (Bld)0.4 %Critically low0.9-7.0The [facility] ColumbusComment on above:Performed By: #### UA #### [facility] [address] [address] [address] Itzel Epsteinrythrocyte distribution width (RBC) [Ratio]14.3 %Gtpivj79.0-15.0 [facility] HospitalComment on above:Performed By: #### UA #### [facility] [address] [place] [address] Dr. Itzel LermaHematocrit (Bld) [Volume fraction]38.2 %Critically low42.0-54.0 The [facility] ColumbusComment on above:Performed By: #### UA #### [facility] [address] [place] [address] Dr. Itzel LermaHemoglobin (Bld) [Mass/Vol]12.5 g/dLCritically low14.0-18.0[facility] HospitalComment on above:Performed By: #### UA #### [facility] [address] [place] [address] Dr. Itzel Ortega #0.11 10e3/ulCritically high0.00-0.03[facility] Comment on above:Performed By: #### UA #### [facility] [address] [place] [address] Dr. Itzel Ortega %0.7 %Critically high0.0-0.5ThProMedica Memorial Hospital on above:Performed By: #### UA #### [facility] [address] [place] [address] Dr. Itzel BeverlyH #1.1 103/ulCritically low1.2-3.8The [facility] Comment on above:Performed By: #### UA #### [facility] [address] [place] [address] Dr. Itzel Beverlyhocytes/100 WBC (Bld)6.9 %Critically low20.5-60.0[facility] HospitalComment on above:Performed By: #### UA #### [facility] [address] [place] [address] Dr. Itzel CondonUAL DIFF REQNONormalThe [facility] ColumbusComment on above: Performed By: #### UA #### [facility] [address] [address] [address] Itzel Maria (RBC) [Entitic mass]29.6 jyVnwkjq50.9-34.0The [facility] ColumbusComment on above:Performed By: #### UA #### [facility] [address] [place] [address] Dr. Itzel Maria (RBC) [Mass/Vol]32.7 g/fXFswrlv21.9-35.2The [facility] ColumbusComment on above:Performed By: #### UA #### [facility] [address] [place] [address] Dr. Itzel Maria (RBC) [Entitic vol]90.3 zDEebxau24.0-94.0The [facility] - ColumbusComment on above:Performed By: #### UA #### [facility] [address] [place] [address] Dr. Itzel Kirkland #1.2 103/ulCritically high0.3-0.8ThKindred Hospital [facility] Comment on above:Performed By: #### UA #### [facility] [address] [place] [address] Dr. Itzel Mendozaocytes/100 WBC (Bld)8.1 %Normal1.7-12.0[facility] Comment on above:Performed By: #### UA #### [facility] [address] [place] [address] Dr. Itzel Watkins #12.8 103/ulCritically high1.4-6.5ThKindred Hospital [place] Comment on above:Performed By: #### UA #### [facility] [address] [place] [address] Dr. Itzel Rodriguezutrophils/100 WBC (Bld)83.7 %Critically high43.0-75.0The [facility] ColumbusComment on above:Performed By: #### UA #### [facility] [address] [place] [address] Dr. Itzel Nguyen mean volume (Bld) [Entitic vol]9.5 fLNormal9.5-13.5The [facility] Park HospitalComment on above:Performed By: #### UA #### [facility] [address] [place] [address] Dr. Itzel LermaPLT197 103/qrKlfhhr599-827Ukm [facility] ColumbusComment on above: Performed By: #### UA #### [facility] [address] [place] [address] Dr. Itzel LermaRBC4.23 106/ulCritically low4.70-6.10The [facility] ColumbusComment on above:Performed By: #### UA #### [facility] [address] [place] [address] Dr. Itzel LermaWBC15.3 103/ulCritically high4.0-11.0The [facility] ColumbusComment on above:Performed By: #### UA #### [facility] [address] [place] [address] Dr. Itzel LermaCT ABD/PELVIS WO CONon [id number] ABD/PELVIS WO CONEXAMINATION: CT ABD/PELVIS WO CON, [...] Electronically authenticated by: DORIAN SOARES Date: 2022-07-09 22:32[facility] CenterCovid-19 PCR (CVDTBH)on [id number]-CoV-2 (COVID-19) RNA JUDY+probe Ql (Unsp spec)Not detectedNormalNOT DETECTEDThe [facility] Comment on above:Result Comment: When diagnostic testing [...] for this test is supported by the [employer] and Human Service's declaration that [...] longer be used).Performed By: #### OBIA #### [facility] [address] [address] [address] Itzel Chauhan PANEL (PCR)on [id number] F 40/41Not detectedNormal NOT DETECTEDThe [facility] - ColumbusComment on above:Performed By: #### OBIA #### [facility] [address] [place] [address] Dr. Itzel LermaAstrovirusNot detectedNormalNOT DETECTEDThe [facility] Comment on above:Performed By: #### OBIA #### [facility] [address] [place] [address] Dr. Itzel Moreno. Diff toxin A/BNot detectedNormalNOT DETECTEDThe [facility] ColumbusComment on above:Performed By: #### OBIA #### [facility] [address] [place] [address] Dr. Itzel De GuzmanpylobacterNot detectedNormalNOT DETECTEDThe [facility] Comment on above:Performed By: #### OBIA #### [facility] [address] [place] [address] Dr. Itzel LermaCryptosporidiumNot detectedNormalNOT DETECTEDThe [facility] ColumbusComment on above:Performed By: #### OBIA #### [facility] [address] [place] [address] Dr. Itzel Purdy. CayetanensisNot detectedNormalNOT DETECTEDThe [facility] ColumbusComment on above:Performed By: #### OBIA #### [facility] [address] [place] [address] Dr. Itzel Epstein. Coli X178Brr ApplicableNormalNot ApplicableThe [facility] - ColumbusComment on above:Performed By: #### OBIA #### [facility] [address] [place] [address] Dr. Itzel May histolyticaNot detectedNormalNOT DETECTEDThe [facility] Comment on above:Performed By: #### OBIA #### [facility] [address] [place] [address] Dr. Itzel EpsteinAECNot detectedNormalNOT DETECTEDThe [facility] ColumbusComment on above:Performed By: #### OBIA #### [facility] [address] [address] [address] Itzel Jean detectedNormalNOT DETECTEDThe [facility] - ColumbusComment on above:Performed By: #### OBIA #### [facility] [address] [address] [address] Itzel EpsteinPECMac detectedNormalNOT DETECTEDThe [facility] ColumbusComment on above:Performed By: #### OBIA #### [facility] [address] [address] [address] Itzel EpsteinTEDavis detectedNormalNOT DETECTEDThe [facility] ColumbusCommymichigan medical center on above:Performed By: #### OBIA #### [facility] [address] [address] [address] Itzel Ray LambliaNot detectedNormalNOT DETECTEDThe [facility] Comment on above:Performed By: #### OBIA #### [facility] [address] [address] [address] Itzel FELIXFirelands Regional Medical CenterComment on above:Performed By: #### OBIA #### [facility] [address] [address] [address] Itzel VO HEADERGI PANEL [facility] Comment on above:Performed By: #### OBIA #### [facility] [address] [address] [address] Itzel Guerrero ECOLIGI PANEL DIARRHEAGENIC E.COLI / SHIGELLADiley Ridge Medical CenterComment on above:Performed By: #### OBIA #### [facility] [address] [address] [address] Itzel Guerrero INFOSEMiami Valley HospitalComment on above: Result Comment: EAEC- Enteroaggregative E. Coli EPEC- Enteropathogenic E. Coli ETEC- Enterotoxigenic E. Coli lt/st STEC- Shigella-like toxin-producing E. Coli stx1/stx2 EIEC- Shigella/Enteroinvasive E. ColiPerformed By: #### OBIA #### [facility] [address] [address] [address] Itzel Guerrero PARASITESGI PANEL PARASITESDiley Ridge Medical Center Comment on above:Performed By: #### OBIA #### [facility] [address] [address] [address] Itzel Guerrero VIRUSGI PANEL VIRUSESDiley Ridge Medical CenterComment on above:Performed By: #### OBIA #### [facility] [address] [address] [address] Itzel LermaNorovirus GI/GIINot detectedNormalNOT DETECTEDThe [facility] ColumbusComment on above:Performed By: #### OBIA #### [facility] [address] [place] [address] Dr. Itzel Mills ShigelloidesNot detectedNormalNOT DETECTEDThe [facility] - ColumbusComment on above:Performed By: #### OBIA #### [facility] [address] [place] [address] Dr. Itzel LermaRotavirus ANot detectedNormalNOT DETECTEDAultman Alliance [facility] Hospital Comment on above:Performed By: #### OBIA #### [facility] [address] [place] [address] Dr. Itzel LermaSalmonellaNot detectedNormalNOT DETECTEDAultman Alliance Community Hospital Comment on above:Performed By: #### OBIA #### [facility] [address] [place] [address] Dr. Itzel LemraSapovirusNot detectedNormalNOT DETECTEDAultman Alliance Community Hospital Comment on above:Performed By: #### OBIA #### [facility] [address] [address] [address] Itzel LermaSTECNot detectedNormalNOT DETECTEDThe [facility] ColumbusComment on above:Performed By: #### OBIA #### [facility] [address] [place] [address] Dr. Itzel LermaVibrioNot detectedNormalNOT DETECTEDThe [facility] ColumbusComment on above:Performed By: #### OBIA #### [facility] [address] [address] [address] Itzel Hatch CholeraNot detectedNormalNOT DETECTEDThe [facility] Comment on above:Performed By: #### OBIA #### [facility] [address] [address] [address] Itzel Henao. EnterocoliticaNot detectedNormalNOT DETECTEDThe [facility] ColumbusComment on above:Performed By: #### OBIA #### [facility] [address] [address] [address] Itzel LermaPROF CHEM 8 (BAS METB)on [id number] gap [Moles/Vol]12.6 mmol/LNormalThe [facility] ColumbusComment on above:Performed By: #### OSMO #### [facility] [address] [place] [address] Dr. Itzel LermaCalcium [Mass/Vol]7.7 mg/dLCritically low8.5-10.1The [facility] ColumbusComment on above:Performed By: #### OSMO #### [facility] [address] [address] [address] Itzel LermaChloride [Moles/Vol]103 mmol/YLyfprv30-153Grc [facility] Comment on above:Performed By: #### OSMO #### [facility] [address] [address] [address] Itzel LermaCO2 [Moles/Vol]16.4 mmol/LCritically low21.0-32.0The [facility] ColumbusComment on above:Performed By: #### OSMO #### [facility] [address] [place] [address] Dr. Itzel LermaCreatinine [Mass/Vol]2.03 mg/dLCritically high0.70-1.30The [facility] ColumbusComment on above:Performed By: #### OSMO #### [facility] [address] [address] [address] Robbins ChangEGFR-AF [id number] mL/min/1.20h7Nyjeusbmee low>=60The Viktor HospitalComment on above:Performed By: #### OSMO #### [facility] [address] [address] [address] Itzel EpsteinGFR-NON AF IMXRJIOB09 mL/min/1.18w5Tkthrkjdvw low>=60The [facility] ColumbusComment on above:Performed By: #### OSMO #### [facility] [address] [address] [address] Itzel LermaGlucose [Mass/Vol]148 mg/dLCritically guop25-975Eqt [facility] ColumbusComment on above:Performed By: #### OSMO #### [facility] [address] [address] [address] Itzel LermaPotassium [Moles/Vol]4.0 mmol/LNormal3.5-5.1The [facility] Comment on above:Performed By: #### OSMO #### [facility] [address] [address] [address] Itzel LermaSodium [Moles/Vol]128 mmol/LCritically jfh066-922Wja [facility] ColumbusComment on above:Performed By: #### OSMO #### [facility] [address] [address] [address] Itzel LermaUrea nitrogen [Mass/Vol]50.0 mg/dLCritically high7.0-18.0The [facility] ColumbusComment on above:Performed By: #### OSMO #### [facility] [address] [address] [address] Itzel LermaUrea nitrogen/Creatinine [Mass ratio]24.6 mg/mgNormalThe [facility] ColumbusComment on above:Performed By: #### OSMO #### [facility] [address] [address] [address] Itzel LermaAnion gap [Moles/Vol]14.3 mmol/LNormalThe [facility] Comment on above:Performed By: #### UA #### [facility] [address] [address] [address] Itzel LermaCalcium [Mass/Vol]7.8 mg/dLCritically low8.5-10.1The [facility] ColumbusComment on above:Performed By: #### UA #### [facility] [address] [address] [address] Itzel LermaChloride [Moles/Vol]101 mmol/NDjbpms01-476Qkm [facility] Comment on above:Performed By: #### UA #### [facility] [address] [address] [address] Itzel LermaCO2 [Moles/Vol]14.7 mmol/LCritically low21.0-32.0The [facility] ColumbusComment on above:Performed By: #### UA #### [facility] [address] [place] [address] Dr. Itzel LermaCreatinine [Mass/Vol]2.01 mg/dLCritically high0.70-1.30The [facility] ColumbusComment on above:Performed By: #### UA #### [facility] [address] [place] [address] Dr. Itzel EpsteinGFR-AF RELHILVK02 mL/min/1.65r9Eeswfqwpzq low>=60The [facility] ColumbusComment on above:Performed By: #### UA #### [facility] [address] [place] [address] Dr. Itzel Philip-NON AF ZURPQYPU11 mL/min/1.97f6Xiwhjyqbyw low>=60The [facility] ColumbusComment on above:Performed By: #### UA #### [facility] [address] [address] [address] Itzel LermaGlucose [Mass/Vol]152 mg/dLCritically wmxv51-866Pfd [facility] ColumbusComment on above:Performed By: #### UA #### [facility] [address] [address] [address] Itzel LermaPotassium [Moles/Vol]4.0 mmol/LNormal3.5-5.1The [facility] Comment on above:Performed By: #### UA #### [facility] [address] [place] [address] Dr. Itzel LermaSodium [Moles/Vol]126 mmol/LCritically bxs185-981EccDetwiler Memorial Hospitalment on above:Performed By: #### UA #### [facility] [address] [place] [address] Dr. Itzel Carbajal nitrogen [Mass/Vol]51.0 mg/dLCritically high7.0-18.0[facility] HospitalComment on above:Performed By: #### UA #### [facility] [address] [place] [address] Dr. Itzel Carbajal nitrogen/Creatinine [Mass ratio]25.4 mg/mgNoHarrison Community HospitalComment on above:Performed By: #### UA #### [facility] [address] [place] [address] Dr. Itzel LermaPROTIMEon [id number] Coag (PPP) [Relative time]4.72 {INR} Critically highDetwiler Memorial Hospitalment on above:Performed By: #### PT #### [facility] [address] [place] [address] Dr. Itzel Li GUIDELINESSEE BELOWDiley Ridge Medical CenterComment on above:Result Comment: DESIRED INR: 2.0 - 3.0 CONDITIONS NOT LISTED BELOW 2.5 - 3.5 FOR PROSTHETIC HEART VALVE REPLACEMENT 2.5 - 3.5 RECURRENT THROMBOSIS Performed By: #### PT #### [facility] [address] [place] [address] Dr. Itzel LermaPT Coag (PPP) [Time]46.1 sCritically high9.0-11.6The [facility] on above:Performed By: #### PT #### [facility] [address] [place] [address] Dr. Itzel AlvarezUM RANDOM URINEon [id number] SODIUM<52Vcomui62-56WqmAultman Alliance Community HospitalComment on above:Performed By: #### OBIA #### [facility] [address] [place] [address] Dr. Itzel LermaUA RANDOMon 62-02-0374Qetwibryd Ql (U)NegativeNormalNEGATIVEThe [facility] ColumbusComment on above:Performed By: #### UA #### [facility] [address] [address] [address] Itzel LermaClarity (U)CLEARNormalCLEARAultman Alliance Community HospitalComment on above: Performed By: #### UA #### [facility] [address] [address] [address] Itzel Mottlor (U)LT. YELLOWNormalYELLOWAultman Alliance Community HospitalComment on above:Performed By: #### UA #### [facility] [address] [place] [address] Dr. Itezl LermaGlucose Ql (U)NegativeNormalNEGATIVEAultman Alliance Community HospitalComment on above:Performed By: #### UA #### [facility] [address] [place] [address] Dr. Itzel LermaHemoglobin Ql (U)NegativeNormalNEGATIVEOhio State East Hospital on above:Performed By: #### UA #### [facility] [address] [place] [address] Dr. Itzel LermaKetones Ql (U)NegativeNormalNEGATIVEAultman Alliance Community HospitalComment on above:Performed By: #### UA #### [facility] [address] [place] [address] Dr. Itzel LermaLEUKOCYTESNegativeNormalNEGATIVEAultman Alliance Community HospitalCommymichigan medical center on above:Performed By: #### UA #### [facility] [address] [place] [address] Dr. Itzel LermaNitrite Ql (U)NegativeNormalNEGATIVEAultman Alliance Community HospitalComment on above:Performed By: #### UA #### [facility] [address] [place] [address] Dr. Itzel LermapH (U)6.0 [pH]Normal5-9[facility] HospitalComment on above: Performed By: #### UA #### [facility] [address] [place] [address] Dr. Itzel LermaSPEC GRAVITY1.811Rpwbfw0.005-<=1.025The [facility] ColumbusComment on above:Performed By: #### UA #### [facility] [address] [address] [address] Itzel Munoz PROTEINNegativeNormalNEGATIVE/ TRACEThe [facility] Comment on above:Performed By: #### UA #### [facility] [address] [address] [address] Itzel LermaUrobilinogen Qn (U)0.2 {Reta'U}/dLNormal0.2 - 1.0The [facility] ColumbusComment on above:Performed By: #### UA #### [facility] [address] [place] [address] Dr. Itzel LermaXR ABD FLAT UP_PA Sterling 63-93-2182CF ABD FLAT UP_PA CHEXAMINATION: XR ABD FLAT [...] Electronically authenticated by: DORIAN YODER Date: 2022-07-10 10:16[facility] AUTO DIFFon [id number] #0.1 103/ulNormal0.0-0.1The [facility] ColumbusComment on above:Performed By: #### OBIA #### [facility] [address] [place] [address] Dr. Itzel LermaBasophils/100 WBC (Bld)0.2 %Normal0.2-2.0[facility] Comment on above:Performed By: #### OBIA #### [facility] [address] [place] [address] Dr. Itzel Terrazas #0.0 103/ulNormal0.0-0.7The [facility] ColumbusComment on above: Performed By: #### OBIA #### [facility] [address] [place] [address] Dr. Itzel Epsteinosinophils/100 WBC (Bld)0.2 %Critically low0.9-7.0The [facility] ColumbusComment on above:Performed By: #### OBIA #### [facility] [address] [place] [address] Dr. Itzel Epsteinrythrocyte distribution width (RBC) [Ratio]14.0 %Efqzuu74.0-15.0 The [facility] ColumbusComment on above:Performed By: #### OBIA #### [facility] [address] [place] [address] Dr. Itzel LermaHematocrit (Bld) [Volume fraction]39.3 %Critically low42.0-54.0 [facility] HospitalComment on above:Performed By: #### OBIA #### [facility] [address] [place] [address] Dr. Itzel LermaHemoglobin (Bld) [Mass/Vol]13.2 g/dLCritically low14.0-18.0The [facility] Hospital for Rehabilitationment on above:Performed By: #### OBIA #### [facility] [address] [place] [address] Dr. Itzel Ortega #0.20 10e3/ulCritically high0.00-0.03The [facility] Comment on above:Performed By: #### OBIA #### [facility] [address] [place] [address] Dr. Itzel Ortega %0.9 %Critically high0.0-0.5The [facility] Hospital for Rehabilitationment on above:Performed By: #### OBIA #### [facility] [address] [place] [address] Dr. Itzel Hahn #1.3 103/ulNormal1.2-3.8The Viktor HospitalComment on above:Performed By: #### OBIA #### [facility] [address] [place] [address] Dr. Itzel Martinezmphocytes/100 WBC (Bld)5.8 %Critically low20.5-60.0The [facility] ColumbusComment on above:Performed By: #### OBIA #### [facility] [address] [place] [address] Dr. Itzel Valdez DIFF REQNONormalThe [facility] ColumbusComment on above: Performed By: #### OBIA #### [facility] [address] [place] [address] Dr. Itzel Maria (RBC) [Entitic mass]29.7 qvXwqady10.9-34.0The [facility] ColumbusComment on above:Performed By: #### OBIA #### [facility] [address] [place] [address] Dr. Itzel Maria (RBC) [Mass/Vol]33.6 g/oWRsnxfv42.9-35.2The [facility] ColumbusComment on above:Performed By: #### OBIA #### [facility] [address] [place] [address] Dr. Itzel Enciso (RBC) [Entitic vol]88.3 aYBmmfjv67.0-94.0The [facility] ColumbusComment on above:Performed By: #### OBIA #### [facility] [address] [place] [address] Dr. Itzel Kirkland #1.3 103/ulCritically high0.3-0.8ThKindred Hospital [facility] Comment on above:Performed By: #### OBIA #### [facility] [address] [place] [address] Dr. Itzel Mendozaocytes/100 WBC (Bld)6.0 %Normal1.7-12.0[facility] Comment on above:Performed By: #### OBIA #### [facility] [address] [place] [address] Dr. Yilan ChangNEUT #19.3 103/ulCritically high1.4-6.5The [facility] Comment on above:Performed By: #### OBIA #### [facility] [address] [place] [address] Dr. Itzel Rodriguezutrophils/100 WBC (Bld)86.9 %Critically high43.0-75.0The [facility] ColumbusComment on above:Performed By: #### OBIA #### [facility] [address] [place] [address] Dr. Itzel LermaPlatelet mean volume (Bld) [Entitic vol]9.2 fLCritically low 9.5-13.5The [facility] ColumbusComment on above:Performed By: #### OBIA #### [facility] [address] [place] [address] Dr. Itzel LermaPLT246 103/auFeaagm205-134Jna [facility] ColumbusComment on above: Performed By: #### OBIA #### [facility] [address] [place] [address] Dr. Itzel LermaRBC4.45 106/ulCritically low4.70-6.10The [facility] ColumbusComment on above:Performed By: #### OBIA #### [facility] [address] [place] [address] Dr. Itzel LermaWBC22.2 103/ulCritically high4.0-11.0The [facility] ColumbusComment on above:Performed By: #### OBIA #### [facility] [address] [place] [address] Dr. Itzel LermaLACTATE/LACTIC ACIDon 96-26-6898Xbwgdix [Moles/Vol]1.0 mmol/L Normal0.4-1.9The [facility] ColumbusComment on above:Performed By: #### OSMO #### [facility] [address] [place] [address] Dr. Itzel LermaPROKimberley 14(COMP METB)on 61-39-4559Drufkre [Mass/Vol]3.0 g/dL Critically low3.4-5.0The [facility] ColumbusComment on above:Performed By: #### CMP #### [facility] [address] [address] [address] Itzel LermaAlbumin/Globulin [Mass ratio]0.6 {ratio}NormalThe [facility] - ColumbusComment on above:Performed By: #### CMP #### [facility] [address] [address] [address] Itzel PaulP [Catalytic activity/Vol]90 U/TIgkast42-845Lfh [facility] ColumbusComment on above:Performed By: #### CMP #### [facility] [address] [address] [address] Itzel PaulT [Catalytic activity/Vol]12 U/LCritically lvn52-30Nsa [facility] ColumbusCommymichigan [facility] on above:Performed By: #### CMP #### [facility] [address] [address] [address] Itzel Reidon gap [Moles/Vol]18.2 mmol/LNormalThe [facility] Comment on above:Performed By: #### CMP #### [facility] [address] [address] [address] Itzel LermaAST [Catalytic activity/Vol]17 U/RHaihrs44-73Xmo [facility] on above:Performed By: #### CMP #### [facility] [address] [address] [address] Itzel LermaBilirubin [Mass/Vol]0.8 mg/dLNormal0.2-1.0The [facility] Comment on above:Performed By: #### CMP #### [facility] [address] [address] [address] Itzel LermaCalcium [Mass/Vol]7.9 mg/dLCritically low8.5-10.1The [facility] ColumbusComment on above:Performed By: #### CMP #### [facility] [address] [address] [address] Itzel LermaChloride [Moles/Vol]92 mmol/LCritically xdm48-272Mna [facility] ColumbusComment on above:Performed By: #### CMP #### [facility] [address] [address] [address] Itzel LermaCO2 [Moles/Vol]14.0 mmol/LCritically low21.0-32.0The [facility] ColumbusComment on above:Performed By: #### CMP #### [facility] [address] [address] [address] Itzel LermaCreatinine [Mass/Vol]2.74 mg/dLCritically high0.70-1.30The [facility] ColumbusComment on above:Performed By: #### CMP #### [facility] [address] [address] [address] Robbins ChangEGFR-AF TYWCUYLH86 mL/min/1.50d6Bxmswpiiqo low>=60The [facility] ColumbusComment on above:Performed By: #### CMP #### [facility] [address] [place] [address] Dr. Itzel EpsteinGFR-NON AF HRCGFCUF89 mL/min/1.12p7Pctgditsrj low>=60The [facility] ColumbusComment on above:Performed By: #### CMP #### [facility] [address] [address] [address] Itzel LermaGlobulin (S) [Mass/Vol]4.9 g/dLNormalThe [facility] ColumbusComment on above:Performed By: #### CMP #### [facility] [address] [place] [address] Dr. Itzel LermaGlucose [Mass/Vol]169 mg/dLCritically ojyg62-675Tji [facility] ColumbusComment on above:Performed By: #### CMP #### [facility] [address] [address] [address] Itzel LermaPotassium [Moles/Vol]4.2 mmol/LNormal3.5-5.1The [facility] Comment on above:Performed By: #### CMP #### [facility] [address] [address] [address] Itzel LermaProtein [Mass/Vol]7.9 g/dLNormal6.4-8.2The [facility] Comment on above:Performed By: #### CMP #### [facility] [address] [address] [address] Itzel Edwardsdium [Moles/Vol]120 mmol/LCritically thk245-316Pkc [facility] on above:Performed By: #### CMP #### [facility] [address] [address] [address] Itzel Carbajal nitrogen [Mass/Vol]69.0 mg/dLCritically high7.0-18.0The [facility] on above:Performed By: #### CMP #### [facility] [address] [address] [address] Itzel Carbajal nitrogen/Creatinine [Mass ratio]25.2 mg/mgNoHarrison Community HospitalCommymichigan medical center on above:Performed By: #### CMP #### [facility] [address] [place] [address] Dr. Itzel Velez 45-77-3488ZNF Coag (PPP) [Relative time]5.18 {INR} Critically highThe [facility] on above:Performed By: #### UA #### [facility] [address] [place] [address] Dr. Itzel Li [facility]ALE BELOWDiley Ridge Medical CenterCommymichigan medical center on above:Result Comment: DESIRED INR: 2.0 - 3.0 CONDITIONS NOT LISTED BELOW 2.5 - 3.5 FOR PROSTHETIC HEART VALVE REPLACEMENT 2.5 - 3.5 RECURRENT THROMBOSIS Performed By: #### UA #### [facility] [address] [place] [address] Dr. Itzel Tucker Coag (PPP) [Time]50.2 sCritically high9.0-11.6The [facility] on above:Performed By: #### UA #### [facility] [address] [place] [address] Dr. Itzel Irving 62-55-1236jJHT Coag (Bld) [Time]62.9 sCritically high 22.3-36.2The [facility] on above:Performed By: #### UA #### [facility] [address] [place], [place] [address] Dr. Itzel Cramer 24-31-7553ZTK4.544 uIU/mLNormal0.358-3.740The [facility] - ColumbusComment on above:Performed By: #### OBIA #### [facility] [address] [place], [place] [address] Dr. Itzel Lerma Vital Signs Date TimeVital SignValuePerforming UgczbzqzgQuvrdxpb82-75-4848 14:50-0400 Diastolic blood lwoqryje07 mm[Hg]Madyson Galvez MD Work Phone: 1(716)[address]10-06-2025 14:50-0400 Heart rate71 /Lizette Galvez MD Work Phone: [phone])[address] [place], [place] 0386810-06-2025 14:50-0400 Respiratory rate16 /Lizette Galvez MD Work Phone: [phone])[address] [place], [place] [address]386810-06-2025 14:50-0400 SaO2% (BldA) [Mass fraction]98 %Madyson Galvez MD Work Phone: [phone])[address]10-06-2025 14:50-0400 Systolic blood zqaqhzvc826 mm[Hg]Madyson Galvez MD Work Phone: 1(677)[address]10-06-2025 11:11-0400 Body ohmdwnorwcq01.1 [degF]Madyson Galvez MD Work Phone: 1([phone])[phone] [place], [place] 4977610-06-2025 11:10-0400 Body .72 cmAkana Galvez MD Work Phone: [phone] [place], [place] 4977610-06-2025 11:10-0400 Body kgMadyson Galvez MD Work Phone: 1(082)604-[address] [place], [place] 49[address]604-14-2023 13:11-0400 Body imzxqm140.72 cmMD Ivan Lopez Work Phone: [facility]04-14-2023 13:11-0400 Body yiwbraiufdu44.8 [degF]MD Ivan Lopez Work Phone: [facility]04-14-2023 13:11-0400 Body .4 kgMD Ivan Lopez Work Phone: [facility]04-14-2023 13:11-0400 Diastolic blood wibyrpkn98 mm[Hg]MD Ivan Lopez Work Phone: [facility]04-14-2023 13:11-0400 Heart rate73 /minMD Ivan Lopez Work Phone: [facility]04-14-2023 13:11-0400 Respiratory rate20 /minMD Ivan Lopez Work Phone: [facility]04-14-2023 13:11-0400 SaO2% (BldA) [Mass fraction]99 %MD Ivan Lopez Work Phone: [facility]04-14-2023 13:11-0400 Systolic blood dpbvsvyn161 mm[Hg]MD Ivan Lopez Work Phone: [facility]08-25-2022 15:00-0400 Body rdqwin966.72 Radha Cornejoack Other [employer] Other 08-25-2022 15:00-0400Body mass index (BMI) [Ratio] 25.09 kg/e3Nxeqqaww Juvenal Other [employer] Other 08-25-2022 15:00-0400Body .84 kgLawrjulia ChristianJuvenal Other [employer] Other 05-26-2022 15:00-0400Body .72 Radha Cornejoack Other [employer] Other 05-26-2022 15:00-0400Body mass index (BMI) [Ratio]26 kg/t0Bkdszuiayanet Sanford Other [employer] Other 05-26-2022 15:00-0400Body .57 kgLawrjulia Sanford Other [employer] Other 05-26-2022 15:00-0400Diastolic blood uvduscrf56 mm[Hg] Yves Sanford Other [employer] Other 05-26-2022 15:00-0400Systolic blood yorklner047 mm[Hg] Yves Sanford Other [employer] Other 02-24-2022 14:30-0500Body bmztiw608.72 cmLawhelenakim Sanford Other [employer] Other 02-24-2022 14:30-0500Body mass index (BMI) [Ratio] 26.76 kg/v9Wcezcdxoyanet Sanford Other [employer] Other 02-24-2022 14:30-0500Body kntarw43.83 kgLayanet Sanford Other [employer] Other 02-24-2022 14:30-0500Diastolic blood xzwxamtj34 mm[Hg] Yves Cornejoack Other [employer] Other 02-24-2022 14:30-0500Systolic blood xdnaoyby464 mm[Hg] Yves Christianormack Other [employer] Other Encounters Encounter DateEncounter TypeCare ProviderFacilityStart: 22-41-9491grkousvecpWZO [facility] Ambulatory PPGStart: 02-38-0443Vlcapvslrl and management of inpatientDIALEXIS [facility] HospitalStart: 07-04-2025 End: 70-22-0642Tkziztrip department patient visitMadyson Galvez MD Work Phone: [phone]-Mwozyfkkn Room Work Phone: Start: 01-10-2023 End: 62-81-6028Ebooavrgb department patient visit Ivna Lopez Work Phone: [facility] Work Phone: Start: 11-24-2022 End: 97-44-9143uaowqddomuGB DOCTOR MISCFacility:E1Urcqv: 11-19-2022 End: 96-49-6509Klscncmgbm and management of inpatientDR DOCTOR MISCFacility:H1 Start: 10-29-2022 End: 82-85-4211tqusmayhdiQbmqszef McCormack Other [employer] Other Start: 73-28-8976Gapsxootr encounterYves Sanford [facility] Referral CoordinatorStart: 72-76-4242zlahytivfhXmnnynyg:EU BellevueStart: 07-10-2022 End: 00-85-9225occhecsalaFJ DOCTOR MISCFacility:C2Anpmx: 05-23-2022 End: 56-24-5977nfzvpwnrkuQesgwbsv McCormack Other [employer] Other Start: 49-00-4741Inibaf outpatient visit 15 minutes Yves May GastroenterologyStart: 02-21-2022 End: 65-95-6615gpsvyebfouFsmdqgsq McCormack Other [facility] Other Start: 34-70-8342Qqcxvz outpatient visit 15 minutes Yves May GastroenterologyStart: 11-22-2021 End: 76-25-2154fwoadccsfyArvwntas Juvenal Other [facility] [employer] Other Start: 00-36-1999Klaasf outpatient new 45 minutes Yves JuvenalFPG Gastroenterology Procedures DateProcedureProcedure DetailPerforming ClinicianStart: 76-43-6899Tamuvoyl screenDIVYA RAMASWAMYComment on above:Performed By: #### TSC #### [facility] [address] [place] [address] VIRStart: 58-74-7099Ogsmz chest X-rayMadyson Galvez MD Work Phone: Start: 91-16-1624ZM of head without contrastMD Ivan Lopez Work Phone: Start: 58-17-9331KKQ screeningDR DOCTOR MISCComment on above:Performed By: #### UA #### [facility] [address] [place] [address] Dr. Itzel Lerma Plan of Treatment DateCare ActivityDetailAuthorStart: 78-17-0369Uuqlqzmv identified in Blood by CultureBlood CultureCleveland Clinictart: 99-58-1685Hypqdbob identified in Urine by CultureUrine [facility] Start: 29-13-9154Vtqoi [facility] Hospitaltart: 07-04-[address] [facility] [address] [facility] Work Phone: [address] referralWilson [facility] Work Phone: Payers DatePayer CategoryPayerPolicy [id number] [id number] [id number] 2.16.840.1.824579.3.57[id number] 2.16.840.1.20635[id number] 2.16.840.1.447374.3.579.2.1286Medibarnesville hospitalMedicare [id number] [facility] [id number] Social History DateTypeDetailFacilitySex Assigned At [facility] [employer] Other Start: 01-10-2023 End: 20-05-9338Nxzcrsc smoking status NHISNever smoked tobacco (finding) [place] Clin[facility]art: 28-51-0121Ids Assigned At [facility] LimaexMal (finding)[facility] Evaluation note 05-23-2022 Note Date & JyhoEmlzMqurdfbp96-71-6359 Evaluation note* Encounter Date Diagnosis Assessment Notes Treatment Notes Treatment Clinical Notes Apr, Diarrhea (ICD-10 - R19.7) patient states does not seem to bad patient does use the imodium as needed Apr,Nausea (ICD-10 - R11.0)[facility] Other Evaluation note 05-26-2022 Note Date & TkizUcrhFivskjpo47-51-0921 Evaluation note* Encounter Date Diagnosis Assessment Notes Treatment Notes Treatment Clinical Notes January, Weight loss (ICD-10 - R63.4) January,2Diarrhea (ICD-10 - R19.7) Start Imodium every morning Encouraged low fodmap diet. Education given to patient again. 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) January,Frequent bowel movements (ICD-10 - R19.4) [employer] Other Evaluation note 11-22-2021 Note Date & CvfkXlvoDitxawgm42-31-9068 Evaluation note* Encounter Date Diagnosis Assessment Notes Treatment Notes Treatment Clinical Notes Oct, Weight loss (ICD-10 - R63.4) OBTAIN RECORDS FROM [facility] INPT STAY COPY OF LOW FODMAP DIET GIVEN TO PT RTO 3 MONTHS Oct,2Diarrhea (ICD-10 - R19.7) [employer] Other Evaluation note Note Date & TypeNoteFacilityEvaluation noteNo assessment information available [facility] Work Phone: Evaluation note Note Date & TypeNoteFacilityEvaluation noteNo InformationNort [employer] Other History general Narrative - Reported Note Date & TypeNoteFacilityHistory general Narrative - Reported* Type Description Date Surgical History bowel resection [facility] Other Hospital Discharge instructions Note Date & TypeNoteFacilityHospital Discharge instructions Additional Instructions Please return to emergency department for any new or worrisome symptoms including any chest pain, shortness of breath, vomiting, fever, lightheadedness. Follow-up with your family physician regarding your medications. They may need to be adjusted further given your recent bout of low blood pressure.[facility] Work Phone: Reason for referral (narrative) Note Date & TypeNoteFacilityReason for referral (narrative)No reason for referral information availableOhiohealth Marion General Hospital Work Phone: Reason for visit Narrative Note Date & TypeNoteFacilityReason for visit NarrativeREFERRED BY KEVIN LOPEZ FOR WEIGHT LOSS. PT DOES TAKE MEDICATIONS, HOWEVER HE DOES NOT RECALL NAMES OR DOSAGES OR HAVE A LIST TO REVIEW, (REFERRAL NOTE RECEIVED)[employer] Other Chief Complaint and Reason for Visit Chief Complaint fall Chief Complaint Admit Date [facility], ar sent in July 04, 2025 10 :36am [...] KNOW NAMES OF MEDICATIONS HE IS ON.[place] AUTH Care Teams (unrecognized sec tion and content) Team Status: Active Member Role Status Dates Ivan Lopez MD Primary Care Provider Active Team Status: Inactive Member Role Status Dates Ivan Lopez MD Primary Care Provider Active Latoya Edgar ProviderActive Team Status: Active Member Role Status Dates Karoline Johnson (Clinic) , [facility] Primary Care Prov ider Active Team Status: Inactive Member Role Status Dates Madyson Galvez MD Emergency Provider Active Start: July 04, 2025 End: July 04, 2025Karoline Johnson (Clinic[facility] Provider ActiveStart: July 04, 2025 End: July 04, 2025 Goals (unrecognized section and content) Goals may be documented in a n alternate section (unrecognized sect ion and content) No Status Records FoundNo Status Records FoundNo Status Records FoundNo Status Records FoundNo Status Records Found INFORMATION SOURCE (unrecogn ized section and content) DATE CREATED AUTHOR 02/12/2023 [facility] DATE CREATED AUTHOR AUTHOR'S ORGANIZ ATION 03/18/2023 [facility] DATE CREATED AUTHOR AUTHOR'S ORGANIZ ATION 07/16/2025 [facility] DATE CREATED AUTHOR AUTHOR'S ORGANIZ ATION 07/22/2025 [facility] DATE CREATED AUTHOR AUTHOR'S ORGANIZ ATION 07/24/2025 [facility] FOR RECORDS PERTAINING TO PATIENTS WHO ARE [...] BE BASED ON THE PRIMARY CLINICAL RECORDS. [employer] [facility]. provides no warranty or guarantee of the accuracy or completeness of information in this document.
== END 2025-07-20 17:05 | disposition short-term general hospital (02) | DRG 204 ==
LOC: ER 07-20 00:45 → MS 07-20 15:30
PROVIDERS: Admitting Provider Internal Medicine; Emergency Provider Emergency Medicine; Visit Provider Student in an Organized Health Care Education/Training Program
DX: R04.2 Hemoptysis (principal); I48.92 Unspecified atrial flutter; R64 Cachexia; J96.11 Chronic respiratory failure with hypoxia; I50.42 Chronic combined systolic (congestive) and diastolic (congestive) heart failure; R91.8 Other nonspecific abnormal finding of lung field; I11.0 Hypertensive heart disease with heart failure; Z87.891 Personal history of nicotine dependence; I48.91 Unspecified atrial fibrillation; Z66 Do not resuscitate; E78.5 Hyperlipidemia, unspecified; E03.9 Hypothyroidism, unspecified; I27.20 Pulmonary hypertension, unspecified; I08.0 Rheumatic disorders of both mitral and aortic valves; Z79.890 Hormone replacement therapy; Z68.20 Body mass index [BMI] 20.0-20.9, adult
CPT/HCPCS: 36415; 51702; 51798; 71275; 80053; 83605; 83735; 83880; 84100; 84484; 85025; 85610; 87040; 87070; 87205; 87420; 87804; 87811; 93005; 94640; 94761; 96365; 96367; 96375; 97161; 99285; J0456; J0696; J1938; P9046; Q9967